=== PATIENT | male | born 1940 | race Caucasian/White ===

== ENCOUNTER 2016-05-11 08:30 | Emergency (ER) | payer BC ==
[~2016-05-11] VITALS: Ht 182.9 cm; Wt 95.7 kg
[~2016-05-11 08:30] MED LIST: ASPI-435 PO; CZR25 PO; DXY100 PO; FLUT0.0529 NAE; FURO-85 PO; INSDGI SC; IPRA1AER2 PO; LEVO1TAB33 PO; MOME200A PO; NTRGSL/4 UT; NVLGI SC; POTA8CAP6 PO; PRED10TA PO; SIMV20TA2 PO; SNG10 PO; TAMS0.4C38 PO; TRAM-10 PO; WARF-246 PO
[2016-05-11 08:37] VITALS: TEMP 36.8; Ht 182.9 cm; Wt 95.7 kg
[2016-05-11 08:45] VITALS: O2SAT 94
[2016-05-11 09:44] LABS: BASO % 0.9 %; BASO ABS # 0.05 K/uL (0-0.2); COMPLETE YES; EOS % 4.2 %; HEMATOCRIT 34.5 % (42-52); IG% 0.2 %; LYMPH % 21.8 %; LYMPH ABS # 1.19 K/uL (1.2-3.4); MEAN CORPUSCULAR HEMOGLOBIN 28.8 pg (25-34); MEAN CORPUSCULAR HGB CONC 32.8 g/dl (32-36); MEAN PLATELET VOLUME 10.2 fL (7.4-10.4); MONO % 7.7 %; NEUT % 65.2 %; PLATELET COUNT 181 K/uL (130-400); RED BLOOD COUNT 3.92 M/uL (4.7-6.1); WHITE BLOOD COUNT 5.46 K/uL (4.8-10.8)
[2016-05-11] MEDS ORDERED: ALBUTEROL HFA 8 GM INHALER INH STA (09:47)
--- NOTE | 2016-05-11 09:52 | EMERGENCY ROOM VISIT NOTE ---
History Report prepared by Tamiko: Stanton Guy Under the Supervision of: Dr. Yared Conte M.D. First contact with patient: 08:44 Chief Complaint: CONGESTION Stated Complaint: CHEST CONGESTION, MUCUS, COUGH History of Present Illness The patient is a 76 year old male who presents to the Emergency Room with complaints of intermittent shortness of breath, especially with exertion, for the past two months. The patient is also not able to lay flat and needs to sit up to sleep. The patient has a rescue kit containing Levaquin and Prednisone, which has not helped. He last used a rescue kit one month ago. The patient no longer uses his nebulizer because it is no longer effective to him. He uses ProAir BID and Combivent. The patient also complains of mucous-producing cough and chest congestion. His lower extremities are more swollen than baseline. He denies any chest pain, fevers, or chills. The patient has a history of COPD and CHF. The patient follows up with Dr. Graves, Sodium Chlor[facility] Operator. He has not seen him in four months but is scheduled to see him next month. The patient has had numerous bronchoscopies. The patient quit smoking 15-20 years ago, but he smoked heavily when he was young. The patient also has a history of diabetes and atrial fibrillation. Source of History: patient Onset: two months Position: other (respiratory) Quality: other (short of breath) Timing: intermittent Modifying Factors (Worsening): exertion Associated Symptoms: + cough, No chest pain, No chills, No fevers Review of Systems All systems have been listed, reviewed, and are negative other than those previously mentioned. Please see Additional Medical History Sheet. Past Medical & Surgical Medical Problems: (1) Asbestos exposure (2) BPH (benign prostatic hypertrophy) (3) CKD (chronic kidney disease) stage 3, GFR 30-59 ml/min (4) COPD (chronic obstructive pulmonary disease) (5) Diabetes type I (6) Dyslipidemia (7) History of basal cell carcinoma (8) Hypertension (9) Paroxysmal atrial fibrillation Surgical Problems: (1) H/O nasal polypectomy (2) History of inguinal hernia repair (3) History of surgery of head Family History Cancer MOTHER Diabetes mellitus BROTHER Gallbladder disease Heart disease Hypertension Kidney disease Kidney stones Social History Smoking Status: Former Smoker Alcohol Use: none Marital Status: Housing Status: lives with significant other Occupation Status: retired Current/Historical Medications Scheduled Aspirin (Aspirin 81), 81 MG PO DAILY Doxycycline Hyclate (Doxycycline Hyclate), 100 MG PO BID Fluticasone Propionate (Nasal) (Flonase), 2 SPRY ALDEN DAILY Furosemide (Lasix), 20 MG PO Q2D Insulin Aspart (Novolog), 0 SC AMHS Insulin Glargine (Lantus), 15 UNITS SC AMPM Losartan Potassium (Losartan Potassium), 25 MG PO DAILY Mometasone Furoate-Formoterol (Dulera 200/5 Mcg), 2 PUFFS PO BID Montelukast Sod (Montelukast Sodium), 10 MG PO DAILY Potassium Chloride (Klor-Con Ext Rel), 8 MEQ PO DAILY Simvastatin (Zocor), 20 MG PO QPM Tamsulosin Hcl (Flomax), 0.4 MG PO DAILY Scheduled PRN Ipratropium-Albuterol (Combivent Respimat), 1 PUFF PO QID PRN for Wheezing Nitroglycerin (Nitrostat), 0.4 MG UT UD PRN for Chest Pain Tramadol (Ultram), 50 MG PO Q8H PRN for Pain Allergies Coded Allergies: Aspirin (Verified Allergy, Unknown, GI SYMPTOMS, 10/16/15) Diltiazem (Verified Allergy, Unknown, RASH, 10/16/15) Lisinopril (Verified Allergy, Unknown, cough, 10/16/15) Propoxyphene (Verified Allergy, Unknown, _, 10/16/15) Physical Exam Vital Signs Date Time Temp Pulse Resp B/P Pulse Ox O2 Delivery O2 Flow Rate FiO2 05/11/16 11:43 61 12 185/90 93 05/11/16 10:58 62 27 189/99 97 Room Air 05/11/16 10:17 54 17 179/98 95 Room Air 05/11/16 09:25 60 05/11/16 08:45 94 Room Air 05/11/16 08:37 36.8 67 18 184/73 96 Room Air Physical Exam GENERAL: Patient awake, alert, oriented x 3. Patient follows commands. Patient does not appear toxic. Patient is adequately hydrated and well- nourished. SKIN: No erythema, pallor, cyanosis or rash HEENT: Normal head, pupils equal, reactive to light and accommodation. Ears normal. Oral cavity and posterior pharynx appear normal. Neck: Without adenopathy, no neck vein distention. LUNGS: Loud expiratory wheezes throughout both lungs as well as rhonchi. HEART: No murmurs. No gallops. No rubs ABDOMEN: Soft, nontender. EXTREMITIES: No signs of trauma or infection. NEUROLOGIC: Cranial nerves II-XII within normal limits. No gross motor sensory function deficits. Medical Decision & Procedures ER Provider Diagnostic Interpretation: X ray results are stated below per my interpretation and the radiologist's interpretation. TWO VIEW CHEST CLINICAL HISTORY: Chest congestion. FINDINGS: PA and lateral chest radiographs are compared to study dated 10/18/2015 and correlated with chest CT dated 12/03/2015. The heart is enlarged and there is atherosclerotic calcification of the thoracic aorta. The pulmonary vasculature is noncongested. Emphysema and chronic interstitial thickening is unchanged. There are bibasilar airspace opacities, not significantly changed from the 10/18/2015 examination. The upper lobes appear clear. No pleural effusion is identified. Calcified pleural plaques are similar to previous. Apical scarring is observed. There is no pneumothorax. The skeletal structures are osteopenic. The bony thorax appears intact. IMPRESSION: 1. There are bibasilar airspace opacities, similar in appearance to the 10/18/2015 examination. This could represent chronic scarring/atelectasis. Correlate clinically for evidence of a superimposed infectious or inflammatory pneumonitis. 2. Cardiomegaly, emphysema, and additional chronic changes as above. Electronically signed by: Arturo Charles M.D. 05/11/2016 10:10 AM Dictated Date/Time: 05/11/2016 10:05 AM Laboratory Results 05/11/16 09:28 Red Blood Count 3.92, Mean Corpuscular Volume 88.0, Mean Corpuscular Hemoglobin 28.8, Mean Corpuscular Hemoglobin Concent 32.8, Mean Platelet Volume 10.2, Neutrophils (%) (Auto) 65.2, Lymphocytes (%) (Auto) 21.8, Monocytes (%) (Auto) 7.7, Eosinophils (%) (Auto) 4.2, Basophils (%) (Auto) 0.9, Neutrophils # (Auto) 3.56, Lymphocytes # (Auto) 1.19, Monocytes # (Auto) 0.42, Eosinophils # (Auto) 0.23, Basophils # (Auto) 0.05 05/11/16 09:28 Test 05/11/16 09:00 05/11/16 09:28 Influenza Type A Antigen Neg for Influ A (NEG) Influenza Type B Antigen Neg for Influ B (NEG) White Blood Count 5.46 K/uL (4.8-10.8) Red Blood Count 3.92 M/uL (4.7-6.1) Hemoglobin 11.3 g/dL (14.0-18.0) Hematocrit 34.5 % (42-52) Mean Corpuscular Volume 88.0 fL (80-100) Mean Corpuscular Hemoglobin 28.8 pg (25-34) Mean Corpuscular Hemoglobin Concent 32.8 g/dl (32-36) Platelet Count 181 K/uL (130-400) Mean Platelet Volume 10.2 fL (7.4-10.4) Neutrophils (%) (Auto) 65.2 % Lymphocytes (%) (Auto) 21.8 % Monocytes (%) (Auto) 7.7 % Eosinophils (%) (Auto) 4.2 % Basophils (%) (Auto) 0.9 % Neutrophils # (Auto) 3.56 K/uL (1.4-6.5) Lymphocytes # (Auto) 1.19 K/uL (1.2-3.4) Monocytes # (Auto) 0.42 K/uL (0.11-0.59) Eosinophils # (Auto) 0.23 K/uL (0-0.5) Basophils # (Auto) 0.05 K/uL (0-0.2) RDW Standard Deviation 45.1 fL (36.4-46.3) RDW Coefficient of Variation 13.9 % (11.5-14.5) Immature Granulocyte % (Auto) 0.2 % Immature Granulocyte # (Auto) 0.01 K/uL (0.00-0.02) Anion Gap 6.0 mmol/L (3-11) Est Creatinine Clear Calc Drug Dose 48.7 ml/min Estimated GFR () 51.0 Estimated GFR (Non- 44.0 BUN/Creatinine Ratio 17.1 (10-20) Calcium Level 9.1 mg/dl (8.5-10.1) Troponin I < 0.015 ng/ml (0-0.045) Laboratory results as stated above per my review. Medications Administered Medications (Trade) Dose Ordered Sig/Bertha Route Start Time Stop Time Status Last Admin Dose Admin Albuterol (Ventolin Hfa Inhaler) 2 puffs NOW STAT INH 05/11/16 09:47 05/11/16 09:48 DC 05/11/16 10:17 2 PUFFS ECG Indication: SOB/dyspnea Rate (beats per minute): 54 Rhythm: sinus bradycardia Findings: LAFB, no acute ischemic change, no ectopy Comparison ECG Date: September 2015 Change: Atrial fibrillation is resolved when compared to EKG from September 2015. ED Course 0844: The patient was evaluated by the [facility]. 0938: Past medical records reviewed. The patient was evaluated in room A11b. A complete history and physical examination was performed. 0947: Albuterol 2 puffs INH. 1051: Checked on the patient. He was dong well. 1108: Discussed the case with Dr. Graves, Sodium Chlorite Operator. He will follow up with the patient. 1125: Updated the patient. He will be discharged, and will follow up with Pulmonology. 1133: Upon reevaluation, the patient appeared to have improvement of his symptoms. I discussed today's findings with him. He verbalized agreement of the treatment plan. He was discharged home. Medical Decision I considered multiple diagnoses including pneumonia, bronchitis, COPD exacerbation, pulmonary edema, PE. Labs, EKG and imaging were obtained. The patient's chest x-ray is similar to what he had the past. He did improve with Ventolin. I discussed care with Dr. Graves the phone. I believe the patient has some underlying bronchiectasis and would benefit from a bronchoscopy in the near future. Dr. Graves's office will call him to arrange a bronchoscopy with him or with Dr. Patrick Consults Time Called: 1100 Consulting Physician: Dr. Graves, Sodium Chlorite Operator. Returned Call: [phone]: Discussed the case with Dr. Graves, Sodium Chlorite Operator. He will follow up with the patient. Impression Primary Impression: COPD (chronic obstructive pulmonary disease) Scribe Attestation The scribe's documentation has been prepared under my direction and personally reviewed by me in its entirety. I confirm that the note above accurately reflects all work, treatment, procedures, and medical decision making performed by me. Departure Information Dispostion Home / Self-Care Referrals Kg Monte M.D. (PCP) Forms HOME CARE DOCUMENTATION FORM, IMPORTANT VISIT INFORMATION Patient Instructions A Signature Page, My [employer] Additional Instructions Continue all of your current medications as prescribed. Use the chamber with Pro-air or Ventolin. Follow-up with Dr. Graves or Dr. Patrick. They will call you today. Problem Qualifiers Primary Impression: COPD (chronic obstructive pulmonary disease) COPD type: COPD with acute exacerbation Qualified Codes: J44.1 - Chronic obstructive pulmonary disease with (acute) exacerbation
[2016-05-11 10:02] LABS: BLOOD UREA NITROGEN 26 mg/dl (7-18); BUN/CREATININE RATIO 17.1 (10-20); CALCIUM 9.1 mg/dl (8.5-10.1); CARBON DIOXIDE 29 mmol/L (21-32); CHLORIDE 109 mmol/L (98-107); GLUCOSE 146 mg/dl (70-99); POTASSIUM 4.8 mmol/L (3.5-5.1); SODIUM 144 mmol/L (136-145)
--- NOTE | 2016-05-11 10:13 | DIAGNOSTIC IMAGING REPORT ---
TWO VIEW CHEST CLINICAL HISTORY: Chest congestion. FINDINGS: PA and lateral chest radiographs are compared to study dated 10/18/2015 and correlated with chest CT dated 12/03/2015. The heart is enlarged and there is atherosclerotic calcification of the thoracic aorta. The pulmonary vasculature is noncongested. Emphysema and chronic interstitial thickening is unchanged. There are bibasilar airspace opacities, not significantly changed from the 10/18/2015 examination. The upper lobes appear clear. No pleural effusion is identified. Calcified pleural plaques are similar to previous. Apical scarring is observed. There is no pneumothorax. The skeletal structures are osteopenic. The bony thorax appears intact. IMPRESSION: 1. There are bibasilar airspace opacities, similar in appearance to the 10/18/2015 examination. This could represent chronic scarring/atelectasis. Correlate clinically for evidence of a superimposed infectious or inflammatory pneumonitis. 2. Cardiomegaly, emphysema, and additional chronic changes as above. Electronically signed by: Arturo Charles M.D. 05/11/2016 10:10 AM Dictated Date/Time: 05/11/2016 10:05 AM
[2016-05-11 11:43] VITALS: BP 185/90; PULSE 61; O2SAT 93
[2016-07-24] MEDS ORDERED: MOME200A INH (15:07)
[2016-07-24] MEDS ORDERED: IPRASOL4 INH (15:11)
[2016-07-24] MEDS ORDERED: LOSA1TAB38 PO (15:11)
[2016-07-24] MEDS ORDERED: GLUCTAB7 PO (15:13)
[2016-07-24] MEDS ORDERED: VITAMIN D PO (15:13)
[2016-10-17] MEDS ORDERED: CEFD300C3 PO (16:31)
[2016-10-17] MEDS ORDERED: XPNINS1255 INH (16:31)
[2016-10-17] MEDS ORDERED: LPR25 PO (16:31)
[2016-10-17] MEDS ORDERED: PRED10TA PO (16:31)
[2016-10-17] MEDS ORDERED: ACET-1256 PO (16:31)
[2016-10-17] MEDS ORDERED: GFNSR600 PO (16:31)
[2016-11-13] MEDS ORDERED: PRT/20 PO (10:35)
[2016-11-16] MEDS ORDERED: LEVO1TAB35 PO (09:19)
[2016-11-16] MEDS ORDERED: LNX125 PO (09:19)
[2016-11-16] MEDS ORDERED: BENZ100C7 PO (09:19)
[2016-11-16] MEDS ORDERED: ASPEC81 PO (09:19)
[2016-11-16] MEDS ORDERED: LPR25 PO (09:19)
[2016-12-13] MEDS ORDERED: METO50TA16 PO (13:04)
== END 2016-05-11 11:48 | disposition home or self-care (01) ==
LOC: C.EDB 08:32 → C.EDA 11:48
DX: J44.9 Chronic obstructive pulmonary disease, unspecified (principal); N18.3 Chronic kidney disease, stage 3 (moderate); E11.22 Type 2 diabetes mellitus with diabetic chronic kidney disease; I12.9 Hypertensive chronic kidney disease with stage 1 through stage 4 chronic kidney disease, or unspecified chronic kidney disease; I50.9 Heart failure, unspecified; N40.0 Benign prostatic hyperplasia without lower urinary tract symptoms; I48.0 Paroxysmal atrial fibrillation; Z87.891 Personal history of nicotine dependence; Z79.82 Long term (current) use of aspirin; Z79.4 Long term (current) use of insulin; Z80.9 Family history of malignant neoplasm, unspecified; Z83.3 Family history of diabetes mellitus; Z82.49 Family history of ischemic heart disease and other diseases of the circulatory system

== ENCOUNTER 2016-05-14 02:48 | Inpatient (IN) | payer BC, OTHER ==
[2016-05-14] VITALS (8 sets, daily range): BP systolic 148–196; BP diastolic 75–91; PULSE 81–99; TEMP 36.6–37.2; O2SAT 95–98; BMI 28.3
[~2016-05-14] VITALS: Ht 182.9 cm; Wt 91.4 kg
[~2016-05-14 02:48] MED LIST changes: -LEVO1TAB33 PO; -PRED10TA PO; -WARF-246 PO
[2016-05-14] MEDS ORDERED: ALBUT/IPRATROP 3MG/0.5MG NEB 3 ML VIAL INH STA (03:21)
[2016-05-14] MEDS ORDERED: LEVAQUIN 750MG / 150ML D5W IV STA (03:36)
[2016-05-14 03:37] LABS: BASO ABS # 0.05 K/uL (0-0.2); COMPLETE YES; EOS % 4.7 %; HEMATOCRIT 34.6 % (42-52); LYMPH % 25.4 %; LYMPH ABS # 1.29 K/uL (1.2-3.4); MEAN CELL VOLUME 87.2 fL (80-100); MEAN CORPUSCULAR HEMOGLOBIN 28.7 pg (25-34); MEAN CORPUSCULAR HGB CONC 32.9 g/dl (32-36); MEAN PLATELET VOLUME 10.1 fL (7.4-10.4); MONO % 8.1 %; NEUT % 60.8 %; PLATELET COUNT 207 K/uL (130-400); RED BLOOD COUNT 3.97 M/uL (4.7-6.1); WHITE BLOOD COUNT 5.08 K/uL (4.8-10.8)
[2016-05-14 03:53] LABS: PROTHROMBIN TIME (PATIENT) 10.4 SECONDS (9.0-12.0)
[2016-05-14 04:03] LABS: BUN/CREATININE RATIO 20.4 (10-20); CALCIUM 8.8 mg/dl (8.5-10.1); CKMB/CK RATIO 3.7 (0-3.0); CREATININE 1.7 mg/dl (0.60-1.40); POTASSIUM 4.8 mmol/L (3.5-5.1)
[2016-05-14 04:18] LABS: BETA-HYDROXYBUTYRATE 3.66 mg/dL (0.2-2.81)
[2016-05-14] MEDS ORDERED: ALBUT/IPRATROP 3MG/0.5MG NEB 3 ML VIAL INH ONE (04:45)
--- NOTE | 2016-05-14 04:49 | EMERGENCY ROOM VISIT NOTE ---
ED Visit Note First contact with patient: 03:27 I saw this patient in conjunction with Ashok Elam PA-C. I agree with his decision making and treatment plan.
--- NOTE | 2016-05-14 04:53 | EMERGENCY ROOM VISIT NOTE ---
History First contact with patient: 03:27 Chief Complaint: RESPIRATORY PROBLEMS Stated Complaint: RESPIRATORY PROBLEMS Nursing Triage Summary: pt c/o cough and respiratory problems, having hard time sleeping, taking mucinex. been here History of Present Illness The patient is a 76 year old male who presents to the Emergency Department by private vehicle for evaluation of his worsening cough and shortness of breath. The patient reports a long-standing history of COPD. He was seen here on for similar symptoms. He was provided an inhaler to be used for breakthrough symptoms. He reports that he seems to do well when he is outside, but when he is inside he has had worsening symptoms. He reports no pain in his chest this point. He has had a mildly productive cough. He is scheduled for a bronchoscopy this week, but did not feel as though he could make his appointment secondary to his worsening shortness of breath and cough. He rates his current discomfort as a 0/10. He denies any headaches, dizziness, chest pain, palpitations, hemoptysis, nausea, vomiting, or abdominal pain. Review of Systems A complete 10-point Review of Systems was discussed with the patient, with pertinent positives and negatives listed in the History of Present Illness. All remaining Review of Systems questions can be considered negative unless otherwise specified. Past Medical/Surgical History Medical Problems: (1) Asbestos exposure (2) BPH (benign prostatic hypertrophy) (3) CKD (chronic kidney disease) stage 3, GFR 30-59 ml/min (4) COPD (chronic obstructive pulmonary disease) (5) COPD exacerbation (6) Diabetes 1.5, managed as type 2 (7) Diabetes type I (8) Dyslipidemia (9) History of basal cell carcinoma (10) Hypertension (11) Paroxysmal atrial fibrillation (12) Pneumonia Surgical Problems: (1) H/O nasal polypectomy (2) History of inguinal hernia repair (3) History of surgery of head Family History Cancer MOTHER Diabetes mellitus BROTHER Gallbladder disease Heart disease Hypertension Kidney disease Kidney stones Social History Smoking Status: Never Smoker Smokeless Tobacco Use: No Alcohol Use: none Marital Status: Housing Status: lives with significant other Occupation Status: retired Current/Historical Medications Scheduled Aspirin (Aspirin 81), 81 MG PO DAILY Fluticasone Propionate (Nasal) (Flonase), 2 SPRY ALDEN DAILY Furosemide (Lasix), 20 MG PO Q2D Insulin Aspart (Novolog), 0 SC AMHS Insulin Detemir (Levemir), SQ UD Losartan Potassium (Cozaar), 50 MG PO DAILY Mometasone Furoate-Formoterol (Dulera 200/5 Mcg), 2 PUFFS PO BID Montelukast Sod (Montelukast Sodium), 10 MG PO DAILY Simvastatin (Zocor), 20 MG PO QPM Tamsulosin Hcl (Flomax), 0.4 MG PO DAILY Scheduled PRN Ipratropium-Albuterol (Combivent Respimat), 1 PUFF PO QID PRN for Wheezing Levofloxacin (Levaquin), 500 MG PO DAILY PRN for copd rescue Nitroglycerin (Nitrostat), 0.4 MG UT UD PRN for Chest Pain Prednisone Tab (Prednisone), MG PO UD PRN for copd rescue Tramadol (Ultram), 50 MG PO Q8H PRN for Pain Zolpidem Tartrate (Ambien), 5-10 MG PO HS PRN for while on prednisone Allergies Coded Allergies: Diltiazem (Verified Allergy, Unknown, RASH, 05/14/16) Propoxyphene (Verified Allergy, Unknown, _, 05/14/16) Aspirin (Verified Adverse Reaction, Unknown, GI SYMPTOMS, 05/14/16) Lisinopril (Verified Adverse Reaction, Unknown, cough, 05/14/16) Physical Exam Vital Signs Date Time Temp Pulse Resp B/P Pulse Ox O2 Delivery O2 Flow Rate FiO2 05/14/16 04:40 67 22 195/89 99 Nasal Cannula 2.0 05/14/16 03:33 89 Room Air 05/14/16 03:24 74 05/14/16 03:23 94 Nasal Cannula 2.0 05/14/16 03:23 94 Nasal Cannula 2.0 05/14/16 02:56 36.8 83 26 181/84 90 Room Air Pain Rating (0-10): 0 Physical Exam VITAL SIGNS - Vital signs and nursing notes were reviewed. GENERAL - 76-year-old male appearing his stated age who is in mild distress. Communicates well with provider and answers questions appropriately although unable to complete full sentences secondary to shortness of breath. HEAD - NC/AT. EYES - PERRL with EOMI bilaterally. Sclera anicteric. Palpebral conjunctiva pink and moist with no injection noted. EARS - No deformities of external structures noted on gross examination bilaterally. No pain elicited with palpation of the tragus bilaterally. External auditory canals without discharge or otorrhea. Tympanic membranes pearly buck without retraction or bulging. NOSE - Midline and without cyanosis. No epistaxis or purulent drainage noted. Septum midline without deviation or septal hematoma noted. MOUTH/OROPHARYNX - Without perioral cyanosis. Buccal mucosa pink and moist and without leukoplakia. Tongue midline with equal elevation of palate bilaterally. No tonsillar hypertrophy, erythema, or exudates noted. NECK - Neck with FROM. Supple to palpation. LUNGS - Chest wall symmetric with mild accessory muscle use. Diffuse inspiratory and expiratory wheezes appreciated throughout all lung raymond. No rales noted. CARDIAC - RRR with S1/S2. No murmur, rubs, or gallops appreciated. No reproducible tenderness to palpation appreciated over the anterior chest wall. ABDOMEN - Abdominal contour flat and without pulsations or visible masses. BS normoactive all four quadrants. No tenderness, palpable masses, hepatosplenomegaly, or ascites noted. EXTREMITIES - No clubbing or peripheral cyanosis. Mild pretibial edema present. NEUROLOGIC - Cranial nerves II through XII grossly intact. Sensory intact to light touch throughout. PSYCH - A&Ox3 and cooperates fully with examiner. Pt is very pleasant and interacts well with examiner. Medical Decision & Procedures ER Provider Diagnostic Interpretation: Chest x-ray was obtained and reviewed by myself. Possible RIGHT lower lobe infiltrate. Radiologist's impression unavailable at the time of dictation. Laboratory Results 05/14/16 03:25 Red Blood Count 3.97, Mean Corpuscular Volume 87.2, Mean Corpuscular Hemoglobin 28.7, Mean Corpuscular Hemoglobin Concent 32.9, Mean Platelet Volume 10.1, Neutrophils (%) (Auto) 60.8, Lymphocytes (%) (Auto) 25.4, Monocytes (%) (Auto) 8.1, Eosinophils (%) (Auto) 4.7, Basophils (%) (Auto) 1.0, Neutrophils # (Auto) 3.09, Lymphocytes # (Auto) 1.29, Monocytes # (Auto) 0.41, Eosinophils # (Auto) 0.24, Basophils # (Auto) 0.05 05/14/16 03:25 Test 05/14/16 03:25 05/14/16 03:27 White Blood Count 5.08 K/uL (4.8-10.8) Red Blood Count 3.97 M/uL (4.7-6.1) Hemoglobin 11.4 g/dL (14.0-18.0) Hematocrit 34.6 % (42-52) Mean Corpuscular Volume 87.2 fL (80-100) Mean Corpuscular Hemoglobin 28.7 pg (25-34) Mean Corpuscular Hemoglobin Concent 32.9 g/dl (32-36) Platelet Count 207 K/uL (130-400) Mean Platelet Volume 10.1 fL (7.4-10.4) Neutrophils (%) (Auto) 60.8 % Lymphocytes (%) (Auto) 25.4 % Monocytes (%) (Auto) 8.1 % Eosinophils (%) (Auto) 4.7 % Basophils (%) (Auto) 1.0 % Neutrophils # (Auto) 3.09 K/uL (1.4-6.5) Lymphocytes # (Auto) 1.29 K/uL (1.2-3.4) Monocytes # (Auto) 0.41 K/uL (0.11-0.59) Eosinophils # (Auto) 0.24 K/uL (0-0.5) Basophils # (Auto) 0.05 K/uL (0-0.2) RDW Standard Deviation 43.9 fL (36.4-46.3) RDW Coefficient of Variation 13.6 % (11.5-14.5) Immature Granulocyte % (Auto) 0.0 % Immature Granulocyte # (Auto) 0.00 K/uL (0.00-0.02) Prothrombin Time 10.4 SECONDS (9.0-12.0) Prothromb Time International Ratio 1.0 (0.9-1.1) Activated Partial Thromboplast Time 27.2 SECONDS (21.0-31.0) Partial Thromboplastin Ratio 1.0 Anion Gap 10.0 mmol/L (3-11) Est Creatinine Clear Calc Drug Dose 42.8 ml/min Estimated GFR () 43.8 Estimated GFR (Non- 37.8 BUN/Creatinine Ratio 20.4 (10-20) Calcium Level 8.8 mg/dl (8.5-10.1) Total Bilirubin 0.4 mg/dl (0.2-1) Aspartate Amino Transf (AST/SGOT) 19 U/L (15-37) Alanine Aminotransferase (ALT/SGPT) 22 U/L (12-78) Alkaline Phosphatase 119 U/L (45-117) Total Creatine Kinase 218 U/L (39-308) Creatine Kinase MB 8.1 ng/ml (0.5-3.6) Creatine Kinase MB Ratio 3.7 (0-3.0) Total Protein 6.7 gm/dl (6.4-8.2) Albumin 3.3 gm/dl (3.4-5.0) Globulin 3.4 gm/dl (2.5-4.0) Albumin/Globulin Ratio 1.0 (0.9-2) Beta-Hydroxybutyric Acid 3.66 mg/dL (0.2-2.81) Bedside Troponin I 0.000 ng/ml (0-0.045) Medications Administered Medications (Trade) Dose Ordered Sig/Bertha Route Start Time Stop Time Status Last Admin Dose Admin Albuterol/ Ipratropium (Duoneb) 3 ml NOW STAT INH 05/14/16 03:21 05/14/16 03:24 DC 05/14/16 03:27 3 ML Methylprednisolone Sodium Succinate (Solu-Medrol IV) 80 mg NOW STAT IV 05/14/16 03:36 05/14/16 03:39 DC 05/14/16 03:50 80 MG Levofloxacin (Levaquin / D5W) 750 mg NOW STAT IV 05/14/16 03:36 05/14/16 03:39 DC 05/14/16 03:50 750 MG Albuterol/ Ipratropium (Duoneb) 12 ml ONE ONCE INH 05/14/16 04:45 05/14/16 04:46 DC 05/14/16 04:45 12 ML Procedure Patient was placed on the threat monitoring analyst and monitored throughout the entire extent of their stay. In addition, the patient's pulse oximetry was monitored throughout the entire stay. Any abnormalities or aberrancies were addressed appropriately. ECG Indication: SOB/dyspnea Rate (beats per minute): 72 Rhythm: normal sinus Findings: LAFB, nonspecific-ST abn, no acute ischemic change, no ectopy Change: no significant change (from 05/11/2016.) ED Course Patient was seen and evaluated by myself. On initial assessment, the patient has moderate inspiratory and expiratory wheezing. He is hypoxic at 89%. He was treated with 1 DuoNeb. He was treated with 80 mg Solu-Medrol intravenously as well as 750 mg Levaquin intravenously. Laboratory results demonstrate no acute leukocytosis, worrisome anemia, or bandemia. The patient's creatinine is elevated at 1.7. Cardiac enzymes and troponin are negative. Patient was reevaluated and has persistent wheezing. He was treated with 1 hour-long DuoNeb. Patient was discussed with the [facility] who agrees to admit the patient for further evaluation and management. Patient admitted in stable condition. Medical Decision Given the patient's presentation and exam findings, I did elect to perform the above-mentioned workup. The patient presents today with worsening shortness of breath and respiratory distress. He is afebrile. He has no acute leukocytosis. He does have a long-standing history of COPD. He was found to have a RIGHT lower lobe infiltrate. He was treated aggressively with IV steroids and antibiotics. He required hour-long DuoNeb treatment for mild result of symptoms. At this point, the patient will require inpatient management for IV antibiotics as well as IV steroids and close glycemic management in addition to respiratory treatments. The patient was admitted to the [facility] service in stable condition. In the evaluation and treatment of this patient, the following differential diagnoses were considered: [place], ASC, Dysrhythmia, Angina, Mediastinitis, GERD, Esophagitis, PE, Pneumonia, Bronchitis, Costochondritis, Rib Fracture, Zoster. Impression Primary Impression: COPD with exacerbation Additional Impressions: Hypoxia Right lower lobe pneumonia Departure Information Dispostion Admitted as an inpatient Condition FAIR Referrals Kg Monte M.D. (PCP) Patient Instructions My [facility] Problem Qualifiers Additional Impressions: Right lower lobe pneumonia Pneumonia type: due to unspecified organism Qualified Codes: J18.9 - Pneumonia, unspecified organism
[2016-05-14] MEDS ORDERED: LVMI SQ (05:38)
[2016-05-14] MEDS ORDERED: LOSA50TA6 PO (05:39)
[2016-05-14] MEDS ORDERED: ZOLP5TAB6 PO (05:40)
[2016-05-14] MEDS ORDERED: NITROGLYCERIN 0.4 MG SL PER TAB CHARGE UT PRN (05:45)
[2016-05-14] MEDS ORDERED: ACETAMINOPHEN 325 MG TAB PO PRN (05:45)
[2016-05-14] MEDS ORDERED: LEVOFLOXACIN / D5W 500 MG in PREMIXED IN D5W 100 ML IV SCH (05:45)
[2016-05-14] MEDS ORDERED: TRAMADOL HCL 50 MG TAB PO PRN (05:45)
[2016-05-14] MEDS ORDERED: ONDANSETRON INJ 2 MG/ML 2 ML VIAL IV PRN (05:45)
[2016-05-14] MEDS ORDERED: IPRATROPIUM BROMIDE/ALBUTEROL respimat INH INH PRN (05:45)
[2016-05-14] MEDS ORDERED: ZOLPIDEM TARTRATE 5 MG TAB PO PRN (05:45)
[2016-05-14] MEDS ORDERED: PRED10TA PO (05:48)
[2016-05-14] MEDS ORDERED: LEVO1TAB33 PO (05:48)
[2016-05-14] MEDS ORDERED: ZOLP5TAB PO (05:49)
[2016-05-14] MEDS ORDERED: LEVOFLOXACIN CONSULT ACTIVE PRN (06:00)
--- NOTE | 2016-05-14 06:52 | HISTORY & PHYSICAL EXAMINATION ---
DATE OF ADMISSION: 05/14/2016 CHIEF COMPLAINT: Increasing shortness of breath. 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 The condition has been getting worse for the last 1 month and he was seen in the ER on May 11 with increasing shortness of breath and he was given nebulized bronchodilator and he was sent home with a possible bronchoscopy that will be done on this Sunday by Dr. Antunez. The condition got worse today and he is back. He does not have any fever or chills. He has cough productive of whitish phlegm. He does have increasing shortness of breath with chest tightness, no chest pain, no nausea, vomiting. No numbness or tingling in the extremities. He also complained to have increasing swelling of both the legs.ECHO in 12/13: EF 60%,small Pericardial effusion,Mild Pulmonary HTN and grade 1 Diastolic dysfunction. PAST MEDICAL HISTORY: Significant for COPD moderate in nature on home oxygen, diabetes on insulin, chronic kidney disease, atrial fibrillation, nasal poly, hypertension, hyperlipidemia, benign prostatic hypertrophy and history of bronchiectasis. PAST SURGICAL HISTORY: Left temporoparietal correction in 1992, prostate biopsy in 1997, nasal polyp removal in 1993, inguinal hernia repair as a child. FAMILY HISTORY: Brother has asthma. Mother had unknown cancer and brother has diabetes and father had gastrointestinal disorder, uncle had stroke. SOCIAL HISTORY: He is , has 4 children. Quit smoking in 1995 with a [id number] history of smoking. He drinks alcohol occasionally. He lives with his and he is reasonably mobile. ALLERGIES: ASPIRIN, DILTIAZEM, LISINOPRIL, AND PROPOXYPHENE. MEDICATIONS: He has been on aspirin 81 mg daily, Flonase 2 sprays each nostril daily, furosemide 20 mg every other day, NovoLog as directed, Lantus 15 units twice daily, Combivent 1 puff q.i.d. as needed, losartan 25 mg daily, Singulair 10 mg daily, nitroglycerin as directed, simvastatin 20 mg daily, Flomax 0.4 mg daily, Ultram 50 mg q. 8 hourly p.r.n., Klor-Con 8 mEq daily. He used to take Durela but not been taking it. REVIEW OF SYSTEMS: All other system review negative besides those mentioned in history of present illness. PHYSICAL EXAMINATION: GENERAL: On examination in the Emergency Room, still having moderate shortness of breath at rest. VITAL SIGNS: Temperature 36.8, pulse of 67, blood pressure 195/89, saturation 99% on 2 liters nasal cannula. HEENT: Unremarkable. NECK: Supple. No JVD, no bruit. CHEST: Has increased anteroposterior diameter, decreased breath sounds with wheezing, bibasilar crackles more on the right than on the left. HEART: S1, S2 regular. ABDOMEN: Soft, benign, nontender, no organomegaly. Bowel sounds present. EXTREMITIES: 1-2+ edema bilaterally. MUSCULOSKELETAL SYSTEM: No acute arthritis. CENTRAL NERVOUS SYSTEM: Alert, awake, oriented x3. Generally weak, but no focal neuro deficit. LABORATORY DATA: Noted today white count was 5.08, H\T\H 11.4/34.6, platelet was 207. Sodium 142, potassium 3.5 chloride 27, BUN 35, creatinine 1.70 that is his baseline. Random glucose 360. LFTs unremarkable except for alkaline phosphatase 119. CK, CK-MB, troponin negative. PT/INR unremarkable. Chest x-ray: Emphysema, chronic bibasilar changes, more on the right than the left. EKG was in sinus rhythm with sinus arrhythmias, rate of 72 per minute, left axis deviation and nonspecific ST-T-wave abnormality. IMPRESSION AND PLAN: 1. Exacerbation of chronic obstructive pulmonary disease/Bronchiectasis with possible pneumonia affecting right lower lobe admitted to medical floor. Blood culture has been taken and he has been started with intravenous Levaquin. He will be given nebulized bronchodilator and also intravenous Solu-Medrol. Pulmonary consultation for probable bronchoscopy down the line. 2. Diabetes, on insulin. Continue with Lantus and put him on sliding scale while in the hospital. Check hemoglobin A1c. 3. Hypertension. Blood pressure in the upper side of normal. Continue with current medications, may have to give added medicine if the blood pressure is not controlled. 4.CKD stage III-Creatinine 1.7 at baseline .Monitor PRP specially being on Lasix with increasing bilateral Leg Edema.May need to repeat ECHO. 5. Benign prostatic hypertrophy. No acute symptoms. Continue with current medication. 6. Gastrointestinal prophylaxis, Protonix. 7. Deep venous thrombosis prophylaxis with subcutaneous heparin. 8. Code status: He will be a full code. In my clinical judgment, the beneficiary meets criteria as per CMS for 2 midnight stay in the hospital. [email or web address]
[2016-05-14] MEDS: DULERA~ORDER AWAITING ACTION SCH ×2 (08:00→16:00)
[2016-05-14] MEDS ORDERED: FUROSEMIDE INJ 40 MG in SYRINGE 0 ML IV SCH (08:00)
[2016-05-14] MEDS ORDERED: LOSARTAN POTASSIUM 50 MG TAB PO SCH (08:00)
[2016-05-14] MEDS ORDERED: GLUCAGON FOR INJ 1 MG VIAL SQ PRN (08:15)
[2016-05-14] MEDS ORDERED: DEXTROSE 50% 50 ML SYR IV PRN (08:15)
[2016-05-14] MEDS ORDERED: GLUCOSE 10 TABS/TUBE PO PRN (08:15)
[2016-05-14] MEDS ORDERED: GLUCOSE 40% GEL 15 GM TUBE PO PRN (08:15)
[2016-05-14] MEDS ORDERED: PHARMACY GLYCEMIC MGMT CONSULT SCH (08:20)
[2016-05-14] MEDS: FLUTICASONE PROPIONATE NA SPR 16 GM BTL NAE SCH (08:40)
[2016-05-14] MEDS: ASPIRIN 81 MG ECTAB PO SCH (08:42)
[2016-05-14] MEDS: TAMSULOSIN HCL 0.4 MG CAP PO SCH (08:43)
[2016-05-14] MEDS: HEPARIN SOD 5000 UNIT/0.5 ML CARP SQ SCH ×3 (08:47→20:36)
--- NOTE | 2016-05-14 08:58 | Pharmacy Progress Note ---
Glycemic Control Intl Consult Date of Service May 14, 2016. Scope Glycemic Pharmacist consulted by Dr Hdez on 05/14/2016 for glycemic control and to write orders per [facility] inpatient glycemic control protocol Objective Weight (Kilograms): 94.800 Accuchecks BSG (last 24hrs): Test 05/14/16 03:25 05/14/16 07:55 Random Glucose 360 mg/dl (70-99) Bedside Glucose 386 mg/dl (70-99) Laboratory Data (last 24hrs) Test 05/14/16 03:25 Anion Gap 10.0 mmol/L BUN/Creatinine Ratio 20.4 Blood Urea Nitrogen 35 mg/dl Creatinine 1.70 mg/dl Potassium Level 4.8 mmol/L Sodium Level 142 mmol/L White Blood Count 5.08 K/uL Red Blood Count 3.97 M/uL Hemoglobin 11.4 g/dL Hematocrit 34.6 % Mean Corpuscular Volume 87.2 fL Mean Corpuscular Hemoglobin 28.7 pg Mean Corpuscular Hemoglobin Concent 32.9 g/dl Platelet Count 207 K/uL Mean Platelet Volume 10.1 fL Neutrophils (%) (Auto) 60.8 % Lymphocytes (%) (Auto) 25.4 % Monocytes (%) (Auto) 8.1 % Eosinophils (%) (Auto) 4.7 % Basophils (%) (Auto) 1.0 % Neutrophils # (Auto) 3.09 K/uL Lymphocytes # (Auto) 1.29 K/uL Monocytes # (Auto) 0.41 K/uL Eosinophils # (Auto) 0.24 K/uL Basophils # (Auto) 0.05 K/uL Recent Pertinent Medications Outpatient Anti-diabetic Regimen: * NovoLog sliding scale * ~10 units BID * Levemir (recently changed from Lantus) * 14 units in the AM * 8 units in the PM * Total daily insulin needs ~42 units/day * A1c = 8.8 % 09/2015 - out dated The patient is currently receiving: * Basal insulin: Lantus 10 units every 12 hours * Correctional Insulin: NovoLog Correction per scale AC+HS Goal Range: Low 120 mg/dL - High 180 mg/dL Correction Factor: 30 mg/dL/unit * Prandial insulin: Per carb ratio of 1 unit per 12 grams CHO consumed Risk Factors for Insulin Resistance: * Steroids: Solu-Medrol 80mg IV x1 dose in ED, then 40mg IV q8H * Infection: COPD exacerbation, r/o pneumonia - levofloxacin IV (day #1, mixed in dextrose) * Pressors: n/a * IVF: n/a, being diuresed * Recent Surgery: n/a * Diet: T2DM/low Na * Mechanical Ventilation: n/a Assessment & Plan ASSESSMENT: * ADA & AACE recommend a goal blood sugar range 140-180 mg/dl for the majority of critically ill & non-critically ill patients. However, more stringent targets may be selected in individual cases. 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 * As an outpatient, Mr Plata uses basal/bolus regimen to control diabetes - will require similar regimen upon admission * Currently having a COPD exacerbation and requiring around the clock steroids and IV antibiotics * predict insulin needs will increase precipitously secondary to this. * BSG on admission severely elevated * will initiate SQ insulin JUNIOR basing doses on both historical admissions as well as home needs * if BSG >300mg/dL with lunch, will augment with IV insulin and additional Accu -checks PLAN FOR INPATIENT GLYCEMIC CONTROL: * Increase Lantus to 15 units SQ BID * using Lantus at this time (in lieu of Levemir) as the patient has not transitioned over to Levemir yet * Continue NovoLog AC and HS * Likely will need additional Accu-check overnight (at 00:00 and 04:00) if hyperglycemia persists * Correction factor: tighten to 25mg/dL/unit * Carb ratio: tighten to 1 unit per 8g of CHO consumed * Goal range: 120-160mg/dL * A1c - outdated, on order with AM labs * add to discharge instructions * Please note that the plan above was derived based on current level of insulin resistance and hospital stress. These recommendations are appropriate for inpatient admission only. Plan of care upon discharge will need to be reassessed to avoid potential outpatient hypo/hyperglycemia. Thank you.
[2016-05-14] MEDS ORDERED: INSULIN GLARGINE SOLOSTAR 100 UNITS/ML 3 ML PEN SC SCH (09:00)
--- NOTE | 2016-05-14 09:35 | DIAGNOSTIC IMAGING REPORT ---
SINGLE VIEW CHEST CLINICAL HISTORY: Cough and dyspnea. FINDINGS: 2 AP, portable, upright chest radiographs are compared to study dated 05/11/2016 and correlated with chest CT dated 12/03/2015. The heart is enlarged and there is atherosclerotic calcification of the thoracic aorta. There is mild congestion of the central pulmonary vasculature. Emphysema and chronic interstitial thickening is unchanged. Bibasilar airspace opacities are similar to previous. The upper lobes appear clear. No pleural effusion is identified. Calcified pleural plaques are similar to previous. Apical scarring is observed. There is no pneumothorax. The skeletal structures are osteopenic. The bony thorax appears intact. IMPRESSION: 1. There are bibasilar airspace opacities, similar in appearance to prior studies. This could represent chronic scarring/atelectasis. Correlate clinically for evidence of a superimposed infectious or inflammatory pneumonitis. 2. Cardiomegaly. There is mild congestion of the central pulmonary vessels. Correlate clinically for evidence of mild congestive failure. 3. Emphysema and additional chronic parenchymal changes as above. Electronically signed by: Arturo Charles M.D. 05/14/2016 9:33 AM Dictated Date/Time: 05/14/2016 9:31 AM
[2016-05-14] MEDS: INSULIN GLARGINE SOLOSTAR 100 UNITS/ML 3 ML PEN SC SCH ×2 (09:57→20:35)
[2016-05-14] MEDS: INSULIN ASPART 100 UNITS/ML 3 ML PEN SC SCH ×4 (09:58→20:35)
[2016-05-14] MEDS ORDERED: METHYLPREDNISOLONE IV 40 MG in SYRINGE 0 ML IV SCH (12:00)
[2016-05-14] MEDS ORDERED: INSULIN REGULAR 10 UNITS in SYRINGE 9.9 ML IV SCH (12:30)
[2016-05-14] MEDS: METHYLPREDNISOLONE IV 20 MG in SYRINGE 0 ML IV SCH ×2 (13:04→20:30)
[2016-05-14] MEDS ORDERED: INSULIN ASPART 100 UNITS/ML 3 ML PEN SC SCH (14:00)
[2016-05-14] MEDS: ALBUT/IPRATROP 3MG/0.5MG NEB 3 ML VIAL INH SCH ×2 (14:19→20:38)
--- NOTE | 2016-05-14 14:27 | Progress Note ---
Medicine Progress Note Date & Time of Visit: May 14, 2016 at 14:25. Subjective Patient seen and examined. Feels that his breathing has improved today. Objective Last 8 Hrs Date Time Temp Pulse Resp B/P Pulse Ox O2 Delivery O2 Flow Rate FiO2 05/14/16 08:30 99 172/82 97 Nasal Cannula 2.0 05/14/16 07:45 97 Nasal Cannula 2.0 05/14/16 06:45 36.6 98 18 196/91 95 Nasal Cannula 2.0 Physical Exam: General-awake; alert; NAD Eyes-EOMI; no scleral icterus Neck-no stridor; trachea midline Lungs-scattered rubs; good air movement throughout Heart-RRR; no m/r/g Abdomen-soft; NTND; nBS Extremities-trace LE edema, r>l; no deformity Neuro-no gross focal deficits Laboratory Results: Last 24 Hours Test 05/14/16 03:25 05/14/16 03:27 05/14/16 07:55 White Blood Count 5.08 K/uL Red Blood Count 3.97 M/uL Hemoglobin 11.4 g/dL Hematocrit 34.6 % Mean Corpuscular Volume 87.2 fL Mean Corpuscular Hemoglobin 28.7 pg Mean Corpuscular Hemoglobin Concent 32.9 g/dl Platelet Count 207 K/uL Mean Platelet Volume 10.1 fL Neutrophils (%) (Auto) 60.8 % Lymphocytes (%) (Auto) 25.4 % Monocytes (%) (Auto) 8.1 % Eosinophils (%) (Auto) 4.7 % Basophils (%) (Auto) 1.0 % Neutrophils # (Auto) 3.09 K/uL Lymphocytes # (Auto) 1.29 K/uL Monocytes # (Auto) 0.41 K/uL Eosinophils # (Auto) 0.24 K/uL Basophils # (Auto) 0.05 K/uL RDW Standard Deviation 43.9 fL RDW Coefficient of Variation 13.6 % Immature Granulocyte % (Auto) 0.0 % Immature Granulocyte # (Auto) 0.00 K/uL Prothrombin Time 10.4 SECONDS Prothromb Time International Ratio 1.0 Activated Partial Thromboplast Time 27.2 SECONDS Partial Thromboplastin Ratio 1.0 Sodium Level 142 mmol/L Potassium Level 4.8 mmol/L Chloride Level 105 mmol/L Carbon Dioxide Level 27 mmol/L Anion Gap 10.0 mmol/L Blood Urea Nitrogen 35 mg/dl Creatinine 1.70 mg/dl Est Creatinine Clear Calc Drug Dose 42.8 ml/min Estimated GFR () 43.8 Estimated GFR (Non- 37.8 BUN/Creatinine Ratio 20.4 Random Glucose 360 mg/dl Calcium Level 8.8 mg/dl Total Bilirubin 0.4 mg/dl Aspartate Amino Transf (AST/SGOT) 19 U/L Alanine Aminotransferase (ALT/SGPT) 22 U/L Alkaline Phosphatase 119 U/L Total Creatine Kinase 218 U/L Creatine Kinase MB 8.1 ng/ml Creatine Kinase MB Ratio 3.7 Total Protein 6.7 gm/dl Albumin 3.3 gm/dl Globulin 3.4 gm/dl Albumin/Globulin Ratio 1.0 Beta-Hydroxybutyric Acid 3.66 mg/dL Bedside Troponin I 0.000 ng/ml Bedside Glucose 386 mg/dl Date/Time Source Procedure Growth Status 05/14/16 03:40 Blood Blood Culture Pending Received 05/14/16 03:40 Blood Blood Culture Pending Received Assessment & Plan Patient is a 76 y/o male who presented with worsening SOB and cough. COPD exacerbation - possible underlying pneumonia - continue nebulizers - continue levofloxacin - transition methylprednisone to prednisone - repeat CXR tomorrow - Pulmonary consulted (patient on schedule for outpatient bronchoscopy tomorrow) Type 2 DM - titrate insulin therapy - glycemic pharmacy consulted HTN - bp above goal - increase losartan - continue aspirin Chronic venous stasis - continue outpatient furosemide CKD stage 3 - baseline creatinine 1.5-1.8 - avoid nephrotoxins BPH - continue tamsulosin DVT prophylaxis with heparin sq Consultants: Pulmonary Current Inpatient Medications: Current Inpatient Medications Medications (Trade) Dose Ordered Sig/Bertha Route Start Time Stop Time Status Last Admin Dose Admin Heparin Sodium (Porcine) (Heparin Sq 5000 Unit/0.5ml) 5,000 unit Q8H SQ 05/14/16 06:00 06/13/16 05:59 05/14/16 08:47 5,000 UNIT Acetaminophen (Tylenol Tab) 650 mg Q4H PRN PO 05/14/16 05:45 06/13/16 05:44 Ondansetron HCl (Zofran Inj) 4 mg Q6H PRN IV 05/14/16 05:45 06/13/16 05:44 Aspirin (Ecotrin Tab) 81 mg DAILY PO 05/14/16 08:00 06/13/16 08:59 05/14/16 08:42 81 MG Fluticasone Propionate (Flonase Nasal [place]) 2 sprays DAILY ALDEN 05/14/16 08:00 06/13/16 08:59 05/14/16 08:40 2 SPRAYS Albuterol/ Ipratropium (Combivent Respimat Inh) 2 puffs QID PRN INH 05/14/16 05:45 06/13/16 05:44 Losartan Potassium (coZAAR TAB) 50 mg DAILY PO 05/14/16 08:00 06/13/16 08:59 05/14/16 08:42 50 MG Montelukast Sodium (Singulair Tab) 10 mg PM PO 05/14/16 21:00 06/13/16 20:59 Nitroglycerin (Nitrostat Tab) 0.4 mg UD PRN UT 05/14/16 05:45 06/13/16 05:44 Simvastatin (Zocor Tab) 20 mg QPM PO 05/14/16 21:00 06/13/16 20:59 Tamsulosin HCl (Flomax Cap) 0.4 mg DAILY PO 05/14/16 08:00 06/13/16 08:59 05/14/16 08:43 0.4 MG Tramadol HCl (Ultram Tab) 50 mg Q8H PRN PO 05/14/16 05:45 06/13/16 05:44 Zolpidem Tartrate (Ambien Tab) 5 mg HS PRN PO 05/14/16 05:45 06/13/16 05:44 Miscellaneous Information (Order Awaiting Action) 1 ea QS N/A 05/14/16 08:00 06/13/16 07:59 Albuterol/ Ipratropium (Duoneb) 3 ml Q6R INH 05/14/16 09:00 06/13/16 08:59 05/14/16 14:19 3 ML Levofloxacin 1 ea 1 ea UD PRN N/A 05/14/16 06:00 06/13/16 05:59 Levofloxacin/Prmx (Levaquin / D5W/ Premixed D5W) 150 ml @ 100 mls/hr Q48H IV 05/16/16 04:00 05/21/16 03:59 Insulin Aspart (novoLOG ASPART) SLIDING SCALE If C... ACHS SC 05/14/16 08:15 06/13/16 08:14 05/14/16 13:02 15 UNITS Glucose (Glucose 40% Gel) 15-30 GRAMS 15 GRAMS... UD PRN PO 05/14/16 08:15 06/13/16 08:14 Glucose (Glucose Chew Tab) 4-8 Tablets 4 Tabl... UD PRN PO 05/14/16 08:15 06/13/16 08:14 Dextrose (Dextrose 50% 50ML Syringe) 25-50ML OF 50% DW IV FOR... UD PRN IV 05/14/16 08:15 06/13/16 08:14 Glucagon (Glucagon Inj) 1 mg UD PRN SQ 05/14/16 08:15 06/13/16 08:14 Miscellaneous Information (Consult Glycemic Management Pharmacy) 1 ea UD N/A 05/14/16 08:20 06/13/16 08:19 Insulin Glargine (Lantus Solostar Pen) 15 unit Q12 SC 05/14/16 09:00 06/13/16 08:59 05/14/16 09:57 15 UNIT Furosemide 20 mg 20 mg Q2D@0900 PO 05/16/16 09:00 06/15/16 08:59 Methylprednisolone Sodium Succinate/ Syringe (Solu-Medrol IV/ Syringe) 0.32 ml @ 1.5 mls/min Q8@0400,1200,2000 IV 05/14/16 12:30 06/13/16 12:29 05/14/16 13:04 1.5 MLS/MIN Insulin Aspart (novoLOG ASPART) SLIDING SCALE If C... TODAY@1400 SC 05/14/16 14:00 05/14/16 15:00 Insulin Aspart (novoLOG ASPART) SLIDING SCALE If C... DAILY@0000,0400 SC 05/15/16 00:00 06/14/16 00:00
[2016-05-14] MEDS ORDERED: LOSARTAN POTASSIUM 50 MG TAB PO ONE (14:30)
--- NOTE | 2016-05-14 16:07 | Pulmonary Consultation ---
History General Date of Service: May 14, 2016. Stated Complaint: Copd Exacer.; Dm 1.5, Managed As Type 2; Pneumonia HPI The patient is a 76 year old male who presents to [facility] with complaints of Copd Exacer.; Dm 1.5, Managed As Type 2; Pneumonia. The patient's primary care provider is Kg Monte M.D.. 76-year-old male presented to the emergency Department at [facility] for progressive productive cough and shortness of breath. He was also seen in the emergency department for acute visit on 05/11/16 and was provided rescue inhaler at that time. Per the patient has been experiencing increasing cough mildly productive with shortness of breath also increasing over the last 2 months. He was set up for bronchoscopy with evaluation of possible mucoid clearance with Dr. Stewart marion tomorrow morning. At this time the patient feels 100% better notes a decrease in his shortness of breath, cough as well as mucous production. Denies: Pleurisy, classic cardiac chest pain, headache, dizziness, palpitations , hemoptysis, nausea, vomiting Treatment: #1 DuoNeb #2 methylprednisolone 80 mg 1 in the emergency room #3 levofloxacin 750 mg IV #4 singular 10 mg #5 methylprednisolone 20 mg 3 times #6 Flonase nasal spray #7 Combivent MDI Bronchoscopy 10/16/15 Right bronchial tree: Copious mucopurulent secretions Right middle lobe: Mildly [place] with mucopurulent secretions Right lower lobe virtually occluded with nuchal. Secretions Microbiology: BAL 09/08/14: Aspergillus fumigatus Blood 11:15: Bacillus species Bronchial washing 10/21/15: Aspergillus fumigatus/Licha albicans Date: 02/16/15 PRE POST % CHANGE FEV1/FVC: 62 51 -17 FEV1: 2.07/71% 1.82/51% -12 FVC: 3.36/71% 3.56/76% 6 25-27%: 43% 27% T.4/74% VC: 2.91/62% RV: 2.63/98% FRC: DLCO: 41% DLCO/VA; 58% Historian: patient, EMS Review of Systems Constitutional: reports: weakness Eyes: reports: no symptoms ENT: reports: no symptoms Cardiovascular: reports: no symptoms Respiratory: reports: BRIGGS, cough, shortness of breath, wheezing Gastrointestinal: reports: no symptoms Genitourinary - Male: reports: no symptoms Musculoskeletal: reports: no symptoms Integumentary: reports: no symptoms Neurologic: reports: no symptoms Psychiatric: reports: no symptoms Endocrine: no symptoms Hematologic / Lymphatic: no symptoms Allergic / Immunologic: no symptoms Past Medical History Past Medical History: 1.Abnormal chest CT 2.Aspergillosis, unspecified 3.Mild COPD (FEV1: 71%) 4.Discoid atelectasis 5.Pleural plaque with presence of asbestos 6.Pulmonary aspergillosis 7.Asbestos exposure 8.BPH 9.Chronic kidney disease/stage III: baslein Cr:1.7 10.Diabetes 11.Dyslipidemia 12.Basal cell carcinoma 13.Hypertension 14.Paroxysmal atrial fibrillation Past Surgical History: 1.Nasal polypectomy 2.Inguinal hernia repair 3.Left temporoparietal correction 1992 Family History Cancer MOTHER Diabetes mellitus BROTHER Gallbladder disease Heart disease Hypertension Kidney disease Kidney stones Social History Hx Tobacco Use In Past Year?: No Smoking Status: Former Smoker Marital status: Housing status: lives with family Occupational Status: retired Immunizations History of Influenza Vaccine: Yes History of Tetanus Vaccine?: Yes History of Pneumococcal: Yes History of Hepatitis B Vaccine: Unknown History of MDRO History of MDRO: No Allergies Coded Allergies: Diltiazem (Verified Allergy, Unknown, RASH, 05/14/16) Propoxyphene (Verified Allergy, Unknown, _, 05/14/16) Aspirin (Verified Adverse Reaction, Unknown, GI SYMPTOMS, 05/14/16) Lisinopril (Verified Adverse Reaction, Unknown, cough, 05/14/16) Current Medications Reported Home Medications Medications Dose Route/Sig Max Daily Dose Days Date Category Dose Instructions Ambien (Zolpidem Tartrate) 5 Mg Tab 5-10 Mg PO HS PRN 05/14/16 Reported Levaquin (Levofloxacin) 500 Mg Tab 500 Mg PO DAILY PRN 10 05/14/16 Reported take until gone Prednisone 10 Mg Tab Mg PO UD PRN 05/14/16 Reported 4 tabs daily x 4 days 3 tabs daily x 4 days 2 tabs daily x 4 days 1 tab daily x 4 days take with food Cozaar (Losartan Potassium) 50 Mg Tab 50 Mg PO DAILY 05/14/16 Reported Levemir (Insulin Detemir) 100 Units/Ml Inj SQ UD 05/14/16 Reported 14 units in am and 8 units in pm Ultram (Tramadol HCl) 50 Mg Tab 50 Mg PO Q8H PRN 10/16/15 Reported Aspirin 81 (Aspirin) 81 Mg Tab 81 Mg PO DAILY 10/16/15 Reported Combivent Respimat (Ipratropium-Albuterol) 1 Aer Aer 1 Puff PO QID PRN 10/16/15 Reported Dulera 200/5 Mcg (Mometasone Furoate-Formoterol) 1 Aer Aer 2 Puffs PO BID 10/16/15 Reported Flonase (Fluticasone Propionate (Nasal)) 50 Mcg/Act Spr 2 [place] ALDEN DAILY 12/08/14 Reported Lasix (Furosemide) 20 Mg Tab 20 Mg PO Q2D 09/18/14 Reported Novolog (Insulin Aspart) 100 Unit/ Inj 0 SC AMHS 09/18/14 Reported PER SLIDING SCALE approximately 10 units twice a day Flomax (Tamsulosin Hcl) 0.4 Mg Cap 0.4 Mg PO DAILY 09/18/14 Reported Montelukast Sodium (Montelukast Sod) 10 Mg Tab 10 Mg PO DAILY 10/20/13 Reported Nitrostat (Nitroglycerin) 0.4 Mg Tab 0.4 Mg UT UD PRN 10/20/13 Reported Zocor (Simvastatin) 20 Mg Tab 20 Mg PO QPM 12/11/08 Reported take with supper Physical Physical Exam Vital Signs: Date Time Temp Pulse Resp B/P Pulse Ox O2 Delivery O2 Flow Rate FiO2 05/14/16 14:55 92 163/82 05/14/16 14:53 93 18 98 Nasal Cannula 2.0 05/14/16 08:30 99 172/82 97 Nasal Cannula 2.0 05/14/16 07:45 97 Nasal Cannula 2.0 05/14/16 06:45 36.6 98 18 196/91 95 Nasal Cannula 2.0 05/14/16 05:52 85 22 179/74 99 Nasal Cannula 2.0 05/14/16 04:40 67 22 195/89 99 Nasal Cannula 2.0 05/14/16 03:33 89 Room Air 05/14/16 03:24 74 05/14/16 03:23 94 Nasal Cannula 2.0 05/14/16 03:23 94 Nasal Cannula 2.0 05/14/16 02:56 36.8 83 26 181/84 90 Room Air General Appearance: mild distress Head: NORMOCEPHALIC, ATRAUMATIC Eyes: PERRLA, NO DISCHARGE, EOMI, SCLERAE NORMAL ENT: NORMAL EAR EXAM, NORMAL NASAL EXAM, NORMAL MOUTH EXAM, NORMAL THROAT EXAM Neck: NORMAL RANGE OF MOTION, NO TENDERNESS, TRACHEA MIDLINE, NO STRIDOR Respiratory: rhonchi, wheezing Cardiovasular: REGULAR RATE/RHYTHM, NORMAL S1S2, NO M/G/R, NO MURMUR Abdomen: NON TENDER, NORMAL BOWEL SOUNDS, NO REBOUND, NO MASSES, NO GUARDING, NO ORGANOMEGALY Genitourinary - Male: EXTERNAL GENITALIA NORMAL Back: NORMAL INSPECTION, NO MIDLINE TENDERNESS, NO CVA TENDERNESS, NO PARAVERTEBRAL TTP Upper Extremities: NO EDEMA, NO DEFORMITY, other (left upper lobe well-healing scar lateral portion of the elbow) Lower Extremities: NO EDEMA Pulses: carotid (R) (2+), carotid (L) (2+), dorsalis pedis (R) (1+), dorsalis pedis (L) (1+) Neuro: ALERT, ORIENTED x 3, NORMAL MOTOR EXAM, NORMAL SENSATION, NORMAL CEREBELLAR EXAM, NORMAL SPEECH Reflexes: biceps (R) (2+), bicpes (L) (2+) Babinski Testing: right (downgoing), left (downgoing) Psychiatric: NORMAL AFFECT, NO SUICIDAL IDEATION, CONTRACTS FOR SAFETY Diagnostics Labs Results Past 24 Hours Test 05/14/16 03:25 05/14/16 03:27 05/14/16 07:55 05/14/16 14:40 Range/Units White Blood Count 5.08 4.8-10.8 K/uL Red Blood Count 3.97 4.7-6.1 M/uL Hemoglobin 11.4 14.0-18.0 g/dL Hematocrit 34.6 42-52 % Mean Corpuscular Volume 87.2 80-100 fL Mean Corpuscular Hemoglobin 28.7 25-34 pg Mean Corpuscular Hemoglobin Concent 32.9 32-36 g/dl Platelet Count 207 130-400 K/uL Mean Platelet Volume 10.1 7.4-10.4 fL Neutrophils (%) (Auto) 60.8 % Lymphocytes (%) (Auto) 25.4 % Monocytes (%) (Auto) 8.1 % Eosinophils (%) (Auto) 4.7 % Basophils (%) (Auto) 1.0 % Neutrophils # (Auto) 3.09 1.4-6.5 K/uL Lymphocytes # (Auto) 1.29 1.2-3.4 K/uL Monocytes # (Auto) 0.41 0.11-0.59 K/uL Eosinophils # (Auto) 0.24 0-0.5 K/uL Basophils # (Auto) 0.05 0-0.2 K/uL RDW Standard Deviation 43.9 36.4-46.3 fL RDW Coefficient of Variation 13.6 11.5-14.5 % Immature Granulocyte % (Auto) 0.0 % Immature Granulocyte # (Auto) 0.00 0.00-0.02 K/uL Prothrombin Time 10.4 9.0-12.0 SECONDS Prothromb Time International Ratio 1.0 0.9-1.1 Activated Partial Thromboplast Time 27.2 21.0-31.0 SECONDS Partial Thromboplastin Ratio 1.0 Sodium Level 142 136-145 mmol/L Potassium Level 4.8 3.5-5.1 mmol/L Chloride Level 105 98-107 mmol/L Carbon Dioxide Level 27 21-32 mmol/L Anion Gap 10.0 3-11 mmol/L Blood Urea Nitrogen 35 7-18 mg/dl Creatinine 1.70 0.60-1.40 mg/dl Est Creatinine Clear Calc Drug Dose 42.8 ml/min Estimated GFR () 43.8 Estimated GFR (Non- 37.8 BUN/Creatinine Ratio 20.4 10-20 Random Glucose 360 70-99 mg/dl Calcium Level 8.8 8.5-10.1 mg/dl Total Bilirubin 0.4 0.2-1 mg/dl Aspartate Amino Transf (AST/SGOT) 19 15-37 U/L Alanine Aminotransferase (ALT/SGPT) 22 12-78 U/L Alkaline Phosphatase 119 45-117 U/L Total Creatine Kinase 218 39-308 U/L Creatine Kinase MB 8.1 0.5-3.6 ng/ml Creatine Kinase MB Ratio 3.7 0-3.0 Total Protein 6.7 6.4-8.2 gm/dl Albumin 3.3 3.4-5.0 gm/dl Globulin 3.4 2.5-4.0 gm/dl Albumin/Globulin Ratio 1.0 0.9-2 Beta-Hydroxybutyric Acid 3.66 0.2-2.81 mg/dL Bedside Troponin I 0.000 0-0.045 ng/ml Bedside Glucose 386 235 70-99 mg/dl Microbiology Results 05/14/16 Blood Culture, Received Pending 05/14/16 Blood Culture, Received Pending Diagnostic Radiology #2 chest x-ray 05/11/2016: Bibasilar scarring/bronchiectasis #3 chest x-ray 05/14/2016: Hyperinflation with bibasilar bronchiectasis/fine #4 CT thorax 10/19/15: Bibasilar right greater than left interstitial changes, pleural scarring right greater than left with pleural calcifications EKG #1 EKG: Normal sinus rhythm, LAFB, no ectopy Impression Assessment and Plan 68-year-old gentleman with progressive cough and dyspnea on exertion admitted for respiratory insufficiency: #1: Respiratory: Patient was admitted with respiratory insufficiency and initiated on duo nebs, methylprednisolone, levofloxacin and continued on Singulair, Flonase and Combivent MDIs. At this time he is noted to dramatic change in his respiratory status. I believe that this time we should place the patient nothing by mouth I have left a message for Dr. Stewart marion to continue with preplanned bronchoscopy with BAL. #2: Asbestosis: Reviewing patient's history, primary function tests and CAT scan I believe it is highly likely patient has pleural plaquing secondary to his doses as well as asbestosis/ILD of the lung. Patient notes that he was told by Dr. 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 I pleural effusions the pathological records at this time and see no signs of definitive asbestos/ferruginous bodies. The patient does note this disease is progressive and will of the future most likely require increased support. #3: Aspergillosis: Patient previously treated for invasive aspergillosis of the lung. At this time he notes minimal relief of symptoms from previous treatment. Would not reinitiate voriconazole is highly likely progressive lung disease is secondary to asbestosis of the lung and aspergillosis colonized organism.
[2016-05-14] MEDS: MONTELUKAST SOD 10 MG TAB PO SCH (20:31)
[2016-05-14] MEDS: SIMVASTATIN 20 MG TAB PO SCH (20:31)
[2016-05-15] VITALS (9 sets, daily range): BP systolic 116–189; BP diastolic 68–86; PULSE 67–84; TEMP 36.2–36.8; O2SAT 90–97
[2016-05-15] MEDS: INSULIN ASPART 100 UNITS/ML 3 ML PEN SC SCH ×7 (00:46→23:57)
[2016-05-15] MEDS: ALBUT/IPRATROP 3MG/0.5MG NEB 3 ML VIAL INH SCH ×4 (02:13→19:18)
[2016-05-15 06:20] LABS: MEAN CELL VOLUME 85.6 fL (80-100); MEAN CORPUSCULAR HEMOGLOBIN 28.1 pg (25-34); MEAN CORPUSCULAR HGB CONC 32.8 g/dl (32-36); MEAN PLATELET VOLUME 10.6 fL (7.4-10.4); PLATELET COUNT 219 K/uL (130-400); RED BLOOD COUNT 3.74 M/uL (4.7-6.1); WHITE BLOOD COUNT 12.12 K/uL (4.8-10.8)
--- NOTE | 2016-05-15 06:46 | PROGRESS NOTE ---
DATE: 05/15/2016 SUBJECTIVE: The patient states he is considerably better than at the time of admission. He has not had any cough or sputum production now and states he feels 100% better. He has been evaluated by Dr. Kenyon and Dr. Patrick, those notes are appreciated. Apparently he did not like the taste of Dulera and it caused him to cough, so he stopped it several weeks ago. That may be the reason why he was seen in the Emergency Room by Dr. Conte last week and now admitted to the hospital. He is not smoking. He has not had any exposures. According to nurses' notes, he had a fairly good night last night. The patient states he is doing well. Does have diabetes mellitus. Tolerating his medications well. They are noted. PHYSICAL EXAMINATION: VITAL SIGNS: Reveals his blood pressure to be 148/75, his pulse is 80 and regular, respiratory rate 18, oxygen saturation 96% on 2 liters and again he is afebrile. His weight is 94.8 kilograms. He did have a CT of his chest done in November 2015 that showed bilateral lower lobe ground-glass opacities, improved when compared to the ones from September 2015, most likely reflecting atelectasis. Calcified plaques suggesting asbestos exposure noted and changes consistent with pulmonary hypertension and moderate degree of emphysema were noted as well. HEENT: Unremarkable with no thrush noted. He has septal deviation to the right side. No tenderness noted over the sinuses. No adenopathy is noted. NECK: There is no neck vein distention or HJR. HEART: Regular rate and rhythm. I do not detect any murmurs. Heart sounds are distant. LUNGS: With decreased breath sounds with some coarse breath sounds particularly at the left base posterior. No crackles or rales noted, no wheezing noted. Forced expiratory maneuver about 3 seconds with no wheezing. ABDOMEN: Soft and obese, nontender. EXTREMITIES: He has no cyanosis, clubbing or edema. LABORATORY DATA: The white count is pending for today, hemoglobin was 11.4 on the 15th. His sugars have been in the 192-260 range. Creatinine is 1.7. Liver function studies are stable. Blood cultures are pending. Chest x-ray revealed changes consistent with cardiomegaly with chronic basilar opacities consistent with atelectasis. IMPRESSION: 1. Chronic obstructive pulmonary disease with exacerbation. 2. Chronic atrial fibrillation. By his exam and EKG in the Emergency Room that has converted to normal sinus rhythm. 3. Diabetes mellitus. 4. Emphysema. PLAN: 1. Continue his present medications. We should continue him on a long-acting bronchodilator. I would recommend switching him to Symbicort from Dulera since he was intolerant to the Dulera. 2. Combivent Respimat 1 puff 4 times a day and I would give it continuously. 3. Good glucose control. 4. Continue to taper the prednisone. 5. At this point I think I would continue on the Levaquin. Overall, he is stable. We will await the culture results as well.
[2016-05-15 06:52] LABS: BUN/CREATININE RATIO 21.7 (10-20); CALCIUM 8.8 mg/dl (8.5-10.1); MAGNESIUM 2.1 mg/dl (1.8-2.4); POTASSIUM 5.2 mmol/L (3.5-5.1)
--- NOTE | 2016-05-15 07:40 | DIAGNOSTIC IMAGING REPORT ---
CHEST 2 VIEWS ROUTINE CLINICAL HISTORY: Pneumonia. COMPARISON STUDY: 05/14/2016 FINDINGS: The heart is enlarged. There are right-sided pleural calcifications. There is bibasal atelectasis. There is no lobar consolidation. There is no overt failure. Underlying emphysema is suspected.[ There is a trace right pleural effusion. IMPRESSION: 1. Cardiomegaly and trace right pleural effusion 2. Bibasilar airspace opacities likely atelectatic 3. Calcified pleural plaques Electronically signed by: Bruno Lisa M.D. 05/15/2016 7:38 AM Dictated Date/Time: 05/15/2016 7:37 AM
[2016-05-15] MEDS: ASPIRIN 81 MG ECTAB PO SCH (07:50)
[2016-05-15] MEDS: TAMSULOSIN HCL 0.4 MG CAP PO SCH (07:51)
[2016-05-15] MEDS: LOSARTAN POTASSIUM 50 MG TAB PO SCH (07:51)
[2016-05-15] MEDS: DULERA~ORDER AWAITING ACTION SCH ×4 (07:52→23:55)
[2016-05-15] MEDS: FLUTICASONE PROPIONATE NA SPR 16 GM BTL NAE SCH (07:52)
[2016-05-15] MEDS: BUDESONIDE/FORMOTEROL FUMARATE 160/4.5 60 PUFFS/INHALER INH SCH ×2 (07:57→20:36)
[2016-05-15] MEDS: PANTOprazole SOD 40 MG TAB PO SCH (08:47)
[2016-05-15] MEDS: INSULIN GLARGINE SOLOSTAR 100 UNITS/ML 3 ML PEN SC SCH ×2 (08:54→20:40)
--- NOTE | 2016-05-15 13:55 | Pharmacy Progress Note ---
Glycemic Control: Progress Nt Date of Service May 15, 2016. Scope Glycemic Pharmacist consulted by Dr Hdez on 05/14/16 for glycemic control and to write orders per [facility] inpatient glycemic control protocol. Objective Accuchecks BSG (last 24hrs): Test 05/14/16 14:40 05/14/16 16:47 05/14/16 20:14 05/15/16 00:30 Bedside Glucose 235 mg/dl (70-99) 192 mg/dl (70-99) 260 mg/dl (70-99) 194 mg/dl (70-99) Test 05/15/16 04:22 05/15/16 05:24 05/15/16 07:43 05/15/16 11:45 Bedside Glucose 222 mg/dl (70-99) 271 mg/dl (70-99) 366 mg/dl (70-99) Random Glucose 244 mg/dl (70-99) Laboratory Data (last 24hrs) Test 05/15/16 05:24 Anion Gap 10.0 mmol/L BUN/Creatinine Ratio 21.7 Blood Urea Nitrogen 43 mg/dl Creatinine 2.00 mg/dl Potassium Level 5.2 mmol/L Sodium Level 139 mmol/L White Blood Count 12.12 K/uL Recent Pertinent Medications Outpatient Anti-diabetic Regimen: * NovoLog sliding scale * ~10 units BID * Levemir (recently changed from Lantus) * 14 units in the AM * 8 units in the PM * Total daily insulin needs ~42 units/day * A1c = 8.8 % 09/2015 - out dated The patient is currently receiving: * Basal insulin: Lantus 15 units every 12 hours * Correctional Insulin: NovoLog Correction per scale AC+HS+00+04 Goal Range: Low 120 mg/dL - High 160 mg/dL Correction Factor: 25 mg/dL/unit * Prandial insulin: Per carb ratio of 1 unit per 8 grams CHO consumed Risk Factors for Insulin Resistance: * Steroids: Solu-Medrol 80mg IV x1 dose in the ED on 05/14, then Solu-Medrol 20mg IV q8H --> Prednisone 40mg PO daily today * Infection: COPD exacerbation, r/o pneumonia - levofloxacin IV-->PO * Diet: T2DM/low Na Assessment & Plan ASSESSMENT: * ADA & AACE recommend a goal blood sugar range 140-180 mg/dl for the majority of critically ill & non-critically ill patients. However, more stringent targets may be selected in individual cases. 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 * As an outpatient, Mr Plata uses basal/bolus regimen to control diabetes - will require similar regimen upon admission * Currently having a COPD exacerbation and requiring around the clock steroids and IV antibiotics * predict insulin needs will increase precipitously secondary to this. * BSG on admission severely elevated * will initiate SQ insulin JUNIOR basing doses on both historical admissions as well as home needs * if BSG >300mg/dL with lunch, will augment with IV insulin and additional Accu -checks 05/15/16 * BSGs responded nicely yesterday to the IV insulin and additional Accu-checks. * Fasting BSG today again elevated - no indication to lower basal dose at this time * continue current dose, but have low threshold to reduce dose as steroids are tapered * Pre-lunch BSG again elevated severely * not notified thus IV insulin not given * correction factor and carb ratio was tightened this morning to help correct * if BSG again severely elevated at dinner give IV insulin to augment NovoLog * Steroids beginning to taper * reduce insulin doses based on BSG response PLAN FOR INPATIENT GLYCEMIC CONTROL: * Continue Lantus 15 units SQ BID * using Lantus at this time (in lieu of Levemir) as the patient has not transitioned over to Levemir yet though active on med list * Continue NovoLog AC and HS * Accu-checks overnight (at 00:00 and 04:00) * Correction factor: tighten to 20mg/dL/unit * Carb ratio: tighten to 1 unit per 7g of CHO consumed * Goal range: 120-160mg/dL * A1c - outdated, on order with AM labs * add to discharge instructions * Please note that the plan above was derived based on current level of insulin resistance and hospital stress. These recommendations are appropriate for inpatient admission only. Plan of care upon discharge will need to be reassessed to avoid potential outpatient hypo/hyperglycemia. Thank you.
[2016-05-15] MEDS ORDERED: INSULIN ASPART 100 UNITS/ML 3 ML PEN SC SCH (15:15)
[2016-05-15] MEDS ORDERED: INSULIN REGULAR 8 UNITS in SYRINGE 7.92 ML IV SCH (15:30)
--- NOTE | 2016-05-15 15:38 | Progress Note ---
Medicine Progress Note Date & Time of Visit: May 15, 2016 at 15:33. Subjective Patient seen and examined. Breathing has significantly improved. Minimal cough. Pulmonary is no longer planning for bronchoscopy. Objective Last 8 Hrs Date Time Temp Pulse Resp B/P Pulse Ox O2 Delivery O2 Flow Rate FiO2 05/15/16 13:46 75 18 96 Room Air 05/15/16 11:10 189/76 05/15/16 11:08 76 183/78 94 Room Air 05/15/16 09:00 92 Room Air 05/15/16 08:00 Room Air Physical Exam: General-awake; alert; NAD Eyes-EOMI; no scleral icterus Neck-no stridor; trachea midline Lungs-CTA bilaterally; no wheezes/crackles Heart-RRR; no m/r/g Abdomen-soft; NTND; nBS Extremities-trace LE edema, r>l; no deformity Neuro-no gross focal deficits Laboratory Results: Last 24 Hours Test 05/14/16 16:47 05/14/16 20:14 05/15/16 00:30 05/15/16 04:22 Bedside Glucose 192 mg/dl 260 mg/dl 194 mg/dl 222 mg/dl Test 05/15/16 05:24 05/15/16 07:43 05/15/16 11:45 05/15/16 14:53 White Blood Count 12.12 K/uL Red Blood Count 3.74 M/uL Hemoglobin 10.5 g/dL Hematocrit 32.0 % Mean Corpuscular Volume 85.6 fL Mean Corpuscular Hemoglobin 28.1 pg Mean Corpuscular Hemoglobin Concent 32.8 g/dl RDW Standard Deviation 42.6 fL RDW Coefficient of Variation 13.6 % Platelet Count 219 K/uL Mean Platelet Volume 10.6 fL Sodium Level 139 mmol/L Potassium Level 5.2 mmol/L Chloride Level 101 mmol/L Carbon Dioxide Level 28 mmol/L Anion Gap 10.0 mmol/L Blood Urea Nitrogen 43 mg/dl Creatinine 2.00 mg/dl Est Creatinine Clear Calc Drug Dose 33.4 ml/min Estimated GFR () 36.0 Estimated GFR (Non- 31.0 BUN/Creatinine Ratio 21.7 Random Glucose 244 mg/dl Calcium Level 8.8 mg/dl Magnesium Level 2.1 mg/dl Bedside Glucose 271 mg/dl 366 mg/dl 396 mg/dl Assessment & Plan Patient is a 76 y/o male who presented with worsening SOB and cough. COPD exacerbation - continue nebulizers - continue levofloxacin - transitioned methylprednisone to prednisone and plan for taper - CXR negative for consolidation - Pulmonary consulted Type 2 DM - titrate insulin therapy - glycemic pharmacy consulted HTN - bp above goal - increased losartan - continue aspirin Chronic venous stasis - continue outpatient furosemide CKD stage 3 - baseline creatinine 1.5-1.8 - avoid nephrotoxins BPH - continue tamsulosin DVT prophylaxis with heparin sq Anticipate discharge tomorrow Consultants: Pulmonary Current Inpatient Medications: Current Inpatient Medications Medications (Trade) Dose Ordered Sig/Bertha Route Start Time Stop Time Status Last Admin Dose Admin Heparin Sodium (Porcine) (Heparin Sq 5000 Unit/0.5ml) 5,000 unit Q8H SQ 05/14/16 06:00 06/13/16 05:59 Future Hold 05/14/16 20:36 5,000 UNIT Acetaminophen (Tylenol Tab) 650 mg Q4H PRN PO 05/14/16 05:45 06/13/16 05:44 Ondansetron HCl (Zofran Inj) 4 mg Q6H PRN IV 05/14/16 05:45 06/13/16 05:44 Aspirin (Ecotrin Tab) 81 mg DAILY PO 05/14/16 08:00 06/13/16 08:59 05/15/16 07:50 81 MG Fluticasone Propionate (Flonase Nasal [place]) 2 sprays DAILY [place]DEN 05/14/16 08:00 06/13/16 08:59 05/15/16 07:52 2 SPRAYS Albuterol/ Ipratropium (Combivent Respimat Inh) 2 puffs QID PRN INH 05/14/16 05:45 06/13/16 05:44 Montelukast Sodium (Singulair Tab) 10 mg PM PO 05/14/16 21:00 06/13/16 20:59 05/14/16 20:31 10 MG Nitroglycerin (Nitrostat Tab) 0.4 mg UD PRN UT 05/14/16 05:45 06/13/16 05:44 Simvastatin (Zocor Tab) 20 mg QPM PO 05/14/16 21:00 06/13/16 20:59 05/14/16 20:31 20 MG Tamsulosin HCl (Flomax Cap) 0.4 mg DAILY PO 05/14/16 08:00 06/13/16 08:59 05/15/16 07:51 0.4 MG Tramadol HCl (Ultram Tab) 50 mg Q8H PRN PO 05/14/16 05:45 06/13/16 05:44 Zolpidem Tartrate (Ambien Tab) 5 mg HS PRN PO 05/14/16 05:45 06/13/16 05:44 Miscellaneous Information (Order Awaiting Action) 1 ea QS N/A 05/14/16 08:00 06/13/16 07:59 Albuterol/ Ipratropium (Duoneb) 3 ml Q6R INH 05/14/16 09:00 06/13/16 08:59 05/15/16 13:45 3 ML Levofloxacin (Consult) 1 ea UD PRN N/A 05/14/16 06:00 06/13/16 05:59 Insulin Aspart (novoLOG ASPART) SLIDING SCALE If C... ACHS SC 05/14/16 08:15 06/13/16 08:14 05/15/16 12:38 20 UNITS Glucose (Glucose 40% Gel) 15-30 GRAMS 15 GRAMS... UD PRN PO 05/14/16 08:15 06/13/16 08:14 Glucose (Glucose Chew Tab) 4-8 Tablets 4 Tabl... UD PRN PO 05/14/16 08:15 06/13/16 08:14 Dextrose (Dextrose 50% 50ML Syringe) 25-50ML OF 50% DW IV FOR... UD PRN IV 05/14/16 08:15 06/13/16 08:14 Glucagon (Glucagon Inj) 1 mg UD PRN SQ 05/14/16 08:15 06/13/16 08:14 Miscellaneous Information (Consult Glycemic Management Pharmacy) 1 ea UD N/A 05/14/16 08:20 06/13/16 08:19 Insulin Glargine (Lantus Solostar Pen) 15 unit Q12 SC 05/14/16 09:00 06/13/16 08:59 05/15/16 08:54 15 UNIT Furosemide (Lasix tab) 20 mg Q2D@0900 PO 05/16/16 09:00 06/15/16 08:59 Insulin Aspart (novoLOG ASPART) SLIDING SCALE If C... DAILY@0000,0400 SC 05/15/16 00:00 06/14/16 00:00 05/15/16 04:27 3 UNITS Losartan Potassium (coZAAR TAB) 100 mg DAILY PO 05/15/16 08:00 06/14/16 07:59 05/15/16 07:51 100 MG Prednisone (PredniSONE TAB) 40 mg DAILY PO 05/15/16 08:00 06/14/16 07:59 05/15/16 07:51 40 MG Budesonide/ Formoterol Fumarate (Symbicort 160/ 4.5 Inh) 2 puffs BID INH 05/15/16 08:00 06/14/16 07:59 05/15/16 07:57 2 PUFFS Pantoprazole Sodium (Protonix Tab) 40 mg QAM PO 05/15/16 08:00 06/14/16 07:59 05/15/16 08:47 40 MG Levofloxacin 750 mg 750 mg Q2D@11 PO 05/16/16 11:00 05/18/16 23:00 Insulin Human Regular/Syringe (novoLIN-R/ Syringe) 8 ml @ 1 mls/min TODAY@1530 IV 05/15/16 15:30 05/15/16 15:37
[2016-05-15] MEDS: MONTELUKAST SOD 10 MG TAB PO SCH (20:38)
[2016-05-15] MEDS: SIMVASTATIN 20 MG TAB PO SCH (20:38)
[2016-05-16] VITALS: O2SAT 96
[2016-05-16 02:11] VITALS: PULSE 77; O2SAT 98
[2016-05-16] MEDS: ALBUT/IPRATROP 3MG/0.5MG NEB 3 ML VIAL INH SCH ×2 (02:11→07:46)
[2016-05-16] MEDS ORDERED: LEVOFLOXACIN 750MG / D5W IV SCH (04:00)
[2016-05-16] MEDS: INSULIN ASPART 100 UNITS/ML 3 ML PEN SC SCH ×2 (04:00→09:02)
[2016-05-16 06:26] LABS: MEAN CELL VOLUME 86.3 fL (80-100); MEAN CORPUSCULAR HEMOGLOBIN 27.7 pg (25-34); MEAN CORPUSCULAR HGB CONC 32.1 g/dl (32-36); MEAN PLATELET VOLUME 10.5 fL (7.4-10.4); PLATELET COUNT 239 K/uL (130-400); RED BLOOD COUNT 3.94 M/uL (4.7-6.1); WHITE BLOOD COUNT 10.78 K/uL (4.8-10.8)
[2016-05-16 06:56] LABS: BUN/CREATININE RATIO 25.1 (10-20); CALCIUM 9.1 mg/dl (8.5-10.1); MAGNESIUM 2.2 mg/dl (1.8-2.4); POTASSIUM 4.6 mmol/L (3.5-5.1)
--- NOTE | 2016-05-16 06:59 | PROGRESS NOTE ---
DATE: 05/16/2016 SUBJECTIVE: The patient is doing well. He has been ambulating several times around the hallway without difficulty. He is on oxygen at 2 liters per minute. His sugars have been in the 160-245 range. According to nurses' notes, he is doing well. The patient states he feels great now much better than even when he was at home. He has tolerated the antimicrobial agents prednisone well and Symbicort was started and he states that has helped. PHYSICAL EXAMINATION: VITAL SIGNS: Stable and he is afebrile. Blood pressure 175/78 yesterday afternoon, 116/68 last night around midnight; oxygen saturation 98% on room air. HEENT: Unremarkable. No thrush is noted. No adenopathy noted. HEART: Regular rate and rhythm. No murmurs are heard. Heart sounds are distant. LUNGS: Clear today with no wheezing or crackles noted. ABDOMEN: Soft, nontender. EXTREMITIES: He has no cyanosis, clubbing or edema. LABORATORY DATA: Revealed a PRP to show BUN of 43 with a creatinine of 2. His sugars have been increased in the 360 range. White count is pending. Hemoglobin 10.5 yesterday. Blood cultures are negative. Chest film yesterday showed cardiomegaly and probable small right pleural effusion with some atelectasis at the bases. He had a CAT scan in November of this year of the thorax that revealed no significant lobar consolidation or pleural effusions. The right lower lobe ground-glass opacities noted in October 18 had resolved. Calcifications consistent with asbestos exposure was noted along the pleura as well. IMPRESSION: 1. Chronic obstructive pulmonary disease with exacerbation. 2. Chronic atrial fibrillation. 3. Diabetes mellitus. 4. Chronic kidney disease. RECOMMENDATIONS: 1. I would taper the prednisone fairly quickly. Now that he has started Symbicort he feels better. I think he could go to 30 mg daily for 3 days, 20 mg for three days, 10 mg for three days and 5 mg for about a week. 2. Continue on the Symbicort. I explained to him how he should use the inhaler and not miss doses and he understands. 3. Follow up with me in about 4 weeks. I believe he has an appointment on 22 June. I will order a chest x-ray at that time. At this point, I think the antimicrobial agents could be discontinued. Overall, he is stable.
[2016-05-16 07:41] LABS: ESTIMATED AVERAGE GLUCOSE 192 mg/dl; HA1C FLAG Normal (Normal)
[2016-05-16] MEDS: BUDESONIDE/FORMOTEROL FUMARATE 160/4.5 60 PUFFS/INHALER INH SCH (07:45)
[2016-05-16] MEDS: DULERA~ORDER AWAITING ACTION SCH (07:45)
[2016-05-16 07:46] VITALS: PULSE 86; O2SAT 98
[2016-05-16] MEDS: FLUTICASONE PROPIONATE NA SPR 16 GM BTL NAE SCH (07:46)
[2016-05-16] MEDS: TAMSULOSIN HCL 0.4 MG CAP PO SCH (07:47)
[2016-05-16] MEDS: ASPIRIN 81 MG ECTAB PO SCH (07:47)
[2016-05-16] MEDS: LOSARTAN POTASSIUM 50 MG TAB PO SCH (07:47)
[2016-05-16 07:48] VITALS: BP 172/68; PULSE 73; TEMP 36.5; O2SAT 92
[2016-05-16] MEDS: PANTOprazole SOD 40 MG TAB PO SCH (07:48)
[2016-05-16 07:56] VITALS: BP 153/90
--- NOTE | 2016-05-16 08:48 | Discharge Instructions ---
Discharge Instructions Admission Reason for Admission: Copd Exacer.; Dm 1.5, Managed As Type 2; Pneumonia Discharge Discharge Diagnosis / Problem: COPD exacerbation Discharge Goals Goal(s): Improve disease control Activity Recommendations Activity Limitations: resume your previous activity . Instructions / Follow-Up Instructions / Follow-Up Please follow up with Family Medicine Dr. Monte on May 18 at 11:10am. Please keep your scheduled follow up appointment with Dr. Graves on June 22. Current Hospital Diet Patient's current hospital diet: Low Sodium Diet (2gm Na), Diabetes Type 2 Diet Discharge Diet Recommended Diet: Diabetes Type 2 Diet Pending Studies Studies pending at discharge: no Laboratory Results Hemoglobin A1c Test 05/16/16 05:20 Range/Units Estimated Average Glucose 192 mg/dl Hemoglobin A1c 8.3 H 4.5-5.6 % Medical Emergencies . Who to Call and When: Medical Emergencies: If at any time you feel your situation is an emergency, please call 911 immediately. . Non-Emergent Contact Non-Emergency issues call your: Primary Care Provider, Clinical Research Nurse Coordinator . . "Provider Documentation" section prepared by Roxana Perze. VTE Core Measure Inpt VTE Proph given/why not?: Enoxaparin (Lovenox)SQ
[2016-05-16] MEDS ORDERED: PRD10 PO (08:52)
[2016-05-16] MEDS ORDERED: SYMIN INH (08:52)
[2016-05-16] MEDS ORDERED: LOSA50TA6 PO (08:52)
[2016-05-16] MEDS ORDERED: FUROSEMIDE 20 MG TAB PO SCH (09:00)
[2016-05-16] MEDS ORDERED: INSULIN GLARGINE SOLOSTAR 100 UNITS/ML 3 ML PEN SC ONE (09:00)
--- NOTE | 2016-05-16 09:00 | Discharge Summary ---
Discharge Summary Admission Date: May 14, 2016 at 05:42 Discharge Date: May 16, 2016 Discharge Disposition: Home Principal Diagnosis: COPD exacerbation Consultations: Pulmonary Medication Reconciliation New Medications: Fluticasone Prop/Salmeterol (Advair Diskus 250-50 Mcg/Dose) 14 Puff/1 Inhaler Aerp 1 PUFF INH BID for 30 Days, #1 INHALER Prednisone (Prednisone) 10 Mg Tab 10 MG PO UD for 12 Days, #20 TAB Take 3tab daily x3days. Then 2tab daily x3days. Then 1tab daily x3days. Then 0.5tab daily x3days. Changed Medications: Losartan Potassium (Cozaar) 50 Mg Tab 100 MG PO DAILY for 30 Days, #60 TAB (Changed from: 50 MG) Continued Medications: Aspirin (Aspirin 81) 81 Mg Tab 81 MG PO DAILY Fluticasone Propionate (Nasal) (Flonase) 50 Mcg/Act Spr 2 SPRY ALDEN DAILY, 5 Refills Furosemide (Lasix) 20 Mg Tab 20 MG PO Q2D Insulin Aspart (Novolog) 100 Unit/ Inj 0 SC AMHS PER SLIDING SCALE approximately 10 units twice a day Insulin Detemir (Levemir) 100 Units/Ml Inj SQ UD 14 units in am and 8 units in pm Ipratropium-Albuterol (Combivent Respimat) 1 Aer Aer 1 PUFF PO QID PRN for Wheezing Levofloxacin (Levaquin) 500 Mg Tab 500 MG PO DAILY PRN for copd rescue for 10 Days take until gone Montelukast Sod (Montelukast Sodium) 10 Mg Tab 10 MG PO DAILY Nitroglycerin (Nitrostat) 0.4 Mg Tab 0.4 MG UT UD PRN for Chest Pain Prednisone Tab (Prednisone) 10 Mg Tab MG PO UD PRN for copd rescue 4 tabs daily x 4 days 3 tabs daily x 4 days 2 tabs daily x 4 days 1 tab daily x 4 days take with food Simvastatin (Zocor) 20 Mg Tab 20 MG PO QPM, 0 Refills take with supper Tamsulosin Hcl (Flomax) 0.4 Mg Cap 0.4 MG PO DAILY Tramadol (Ultram) 50 Mg Tab 50 MG PO Q8H PRN for Pain, TAB Zolpidem Tartrate (Ambien) 5 Mg Tab 5-10 MG PO HS PRN for while on prednisone, TAB Discontinued Medications: Mometasone Furoate-Formoterol (Dulera 200/5 Mcg) 1 Aer Aer 2 PUFFS PO BID Admission Information HPI (per Admitting provider): He is a 76-year-old male with significant past medical history including moderate COPD on home oxygen, chronic kidney disease, diabetes, atrial fibrillation, benign prostatic hypertrophy, hyperlipidemia, hypertension, obstructive uropathy, Bronchiectasis and chronic stasis dermatitis, apparently has been complaining of shortness of breath with cough for a long time. The condition has been getting worse for the last 1 month and he was seen in the ER on May 11 with increasing shortness of breath and he was given nebulized bronchodilator and he was sent home with a possible bronchoscopy that will be done on this Sunday by Dr. Antunez. The condition got worse today and he is back. He does not have any fever or chills. He has cough productive of whitish phlegm. He does have increasing shortness of breath with chest tightness, no chest pain, no nausea, vomiting. No numbness or tingling in the extremities. He also complained to have increasing swelling of both the legs.ECHO in 12/13: EF 60%,small Pericardial effusion,Mild Pulmonary HTN and grade 1 Diastolic dysfunction. Physical Exam (per Admitting): GENERAL: On examination in the Emergency Room, still having moderate shortness of breath at rest. VITAL SIGNS: Temperature 36.8, pulse of 67, blood pressure 195/89, saturation 99% on 2 liters nasal cannula. HEENT: Unremarkable. NECK: Supple. No JVD, no bruit. CHEST: Has increased anteroposterior diameter, decreased breath sounds with wheezing, bibasilar crackles more on the right than on the left. HEART: S1, S2 regular. ABDOMEN: Soft, benign, nontender, no organomegaly. Bowel sounds present. EXTREMITIES: 1-2+ edema bilaterally. MUSCULOSKELETAL SYSTEM: No acute arthritis. CENTRAL NERVOUS SYSTEM: Alert, awake, oriented x3. Generally weak, but no focal neuro deficit. Hospital Course Patient is a 76 y/o male who presented with worsening SOB and cough. Patient was treated for a COPD exacerbation. Pulmonary was consulted. Patient was started on Levofloxacin, Methylprednisolone and nebulizers. Dulera was changed to Advair (Symbicort was not covered under patient's insurance). Given rapid improvement in symptoms, the decision was made not to pursue bronchoscopy. Methylprednisolone was transitioned to prednisone with instructions for a taper provided to patient. CXR was negative for pneumonia; Levofloxacin was not continued upon discharge per Pulmonary recommendations. Glycemic pharmacy was consulted for insulin therapy while inpatient. Patient was instructed to resume home dosing upon discharge. Losartan was increased to improve blood pressure control during hospitalization. Patient was continued on the remainder of his home medications with the exceptions noted above. Patient deemed stable for discharge with Family Medicine and Pulmonary follow up. PE on discharge: General- awake; alert; NAD Eyes- EOMI; no scleral icterus Neck- no stridor; trachea midline Lungs- CTA bilaterally; no wheezes/crackles Heart- RRR; no m/r/g Abdomen- soft; NTND; nBS Back- no gross abnormalities Extremities- trace LE edema; no deformity Neuro- no gross focal deficits Skin- no appreciable rash or bruising . Total time spent on discharge = This includes examination of the patient, discharge planning, medication reconciliation, and communication with other providers. Discharge Instructions Discharge Instructions Admission Reason for Admission: Copd Exacer.; Dm 1.5, Managed As Type 2; Pneumonia Discharge Discharge Diagnosis / Problem: COPD exacerbation Discharge Goals Goal(s): Improve disease control Activity Recommendations Activity Limitations: resume your previous activity . Instructions / Follow-Up Instructions / Follow-Up Please follow up with Family Medicine Dr. Monte on May 18 at 11:10am. Please keep your scheduled follow up appointment with Dr. Graves on June 22. Current Hospital Diet Patient's current hospital diet: Low Sodium Diet (2gm Na), Diabetes Type 2 Diet Discharge Diet Recommended Diet: Diabetes Type 2 Diet Pending Studies Studies pending at discharge: no Laboratory Results Hemoglobin A1c Test 05/16/16 05:20 Range/Units Estimated Average Glucose 192 mg/dl Hemoglobin A1c 8.3 H 4.5-5.6 % Medical Emergencies . Who to Call and When: Medical Emergencies: If at any time you feel your situation is an emergency, please call 911 immediately. . Non-Emergent Contact Non-Emergency issues call your: Primary Care Provider, [employer] Press Tender . . "Provider Documentation" section prepared by Roxana Perez. VTE Core Measure Inpt VTE Proph given/why not?: Enoxaparin (Lovenox)SQ Additional Copies To Kg Monte M.D.
[2016-05-16] MEDS ORDERED: ADVIN25050 INH (09:16)
[2016-05-16 09:31] VITALS: BP 153/90; PULSE 73; TEMP 36.5; O2SAT 92
[2016-05-16] MEDS ORDERED: LEVOFLOXACIN 750 MG TAB PO SCH (11:00)
[2016-05-16 13:21] VITALS: Ht 182.9 cm; Wt 91.4 kg
[2016-07-24] MEDS ORDERED: MOME200A INH (15:07)
[2016-07-24] MEDS ORDERED: IPRASOL4 INH (15:11)
[2016-07-24] MEDS ORDERED: LOSA1TAB38 PO (15:11)
[2016-07-24] MEDS ORDERED: VITAMIN D PO (15:13)
[2016-07-24] MEDS ORDERED: GLUCTAB7 PO (15:13)
[2016-10-17] MEDS ORDERED: CEFD300C3 PO (16:31)
[2016-10-17] MEDS ORDERED: GFNSR600 PO (16:31)
[2016-10-17] MEDS ORDERED: PRED10TA PO (16:31)
[2016-10-17] MEDS ORDERED: LPR25 PO (16:31)
[2016-10-17] MEDS ORDERED: XPNINS1255 INH (16:31)
[2016-10-17] MEDS ORDERED: ACET-1256 PO (16:31)
[2016-11-13] MEDS ORDERED: PRT/20 PO (10:35)
[2016-11-16] MEDS ORDERED: LEVO1TAB35 PO (09:19)
[2016-11-16] MEDS ORDERED: BENZ100C7 PO (09:19)
[2016-11-16] MEDS ORDERED: LNX125 PO (09:19)
[2016-11-16] MEDS ORDERED: ASPEC81 PO (09:19)
[2016-11-16] MEDS ORDERED: LPR25 PO (09:19)
[2016-12-13] MEDS ORDERED: METO50TA16 PO (13:04)
== END 2016-05-16 10:30 | disposition home or self-care (01) | DRG 190 ==
LOC: C.EDB 02:48 → C.4E 05:42 → EEVIPCON 05:42
PROVIDERS: ADMIT Internal Medicine; ATTEND Internal Medicine
DX: J44.1 Chronic obstructive pulmonary disease with (acute) exacerbation (principal); J18.9 Pneumonia, unspecified organism; Z77.090 Contact with and (suspected) exposure to asbestos; I48.2 Chronic atrial fibrillation; N18.3 Chronic kidney disease, stage 3 (moderate); I87.8 Other specified disorders of veins; I12.9 Hypertensive chronic kidney disease with stage 1 through stage 4 chronic kidney disease, or unspecified chronic kidney disease; E11.21 Type 2 diabetes mellitus with diabetic nephropathy; I48.0 Paroxysmal atrial fibrillation; Z82.49 Family history of ischemic heart disease and other diseases of the circulatory system; Z79.82 Long term (current) use of aspirin; N40.0 Benign prostatic hyperplasia without lower urinary tract symptoms; Z79.4 Long term (current) use of insulin; Z87.891 Personal history of nicotine dependence

== ENCOUNTER → 2016-06-22 | Outpatient (CLI) | payer BC ==
[~2016-06-22] MED LIST changes: +ACET-1256 PO; +ADVIN25050 INH; +ASPEC81 PO; +ATRINSX NEB; +BENZ100C7 PO; +CEFD300C3 PO; +CHOL2000 PO; +CLC100 PO; -CZR25 PO; +CZR50 PO; -DXY100 PO; +FINA5TAB4 PO; +FLNIN/ NAE; +GFNSR600 PO; +GLUCTAB7 PO; -INSDGI SC; +IPRASOL4 INH; +LEVO1TAB33 PO; +LEVO1TAB35 PO; +LNX125 PO; +LOSA1TAB38 PO; +LOSA50TA6 PO; +LPR25 PO; +LVMI SQ; +METO50TA16 PO; +MOME200A INH; -MOME200A PO; +MULT-506 PO; +NITR0.4S UT; +NVLGI/PEN SQ; +OXYC-57 PO; -POTA8CAP6 PO; +PRD10 PO; +PRED-301 PO; +PRED10TA PO; +PRT/20 PO; +RANI150T2 PO; +SPRIN/30 INH; +TIOT1SPR INH; +ULT50 PO; +VITAMIN D PO; +WARF2.5T8 PO; +XPNINS1255 INH; +ZOLP5TAB PO
== END | disposition home or self-care (01) ==
LOC: C.LAB1850 12:32
PROVIDERS: ATTEND Internal Medicine Pulmonary Disease
DX: J47.9 Bronchiectasis, uncomplicated (principal)

== ENCOUNTER 2016-06-29 19:12 | Emergency (ER) | payer BC, OTHER ==
[~2016-06-29] VITALS: Ht 182.9 cm; Wt 91.0 kg
[~2016-06-29 19:12] MED LIST changes: -ACET-1256 PO; -ASPEC81 PO; -ATRINSX NEB; -BENZ100C7 PO; -CEFD300C3 PO; -CHOL2000 PO; -CLC100 PO; -CZR50 PO; -FINA5TAB4 PO; -FLNIN/ NAE; -GFNSR600 PO; -GLUCTAB7 PO; -IPRASOL4 INH; -LEVO1TAB35 PO; -LNX125 PO; -LOSA1TAB38 PO; -LPR25 PO; -METO50TA16 PO; -MOME200A INH; -MULT-506 PO; -NITR0.4S UT; -NVLGI/PEN SQ; -OXYC-57 PO; -PRED-301 PO; -PRT/20 PO; -RANI150T2 PO; -SPRIN/30 INH; -TIOT1SPR INH; -ULT50 PO; -VITAMIN D PO; -WARF2.5T8 PO; -XPNINS1255 INH
[2016-06-29 19:16] VITALS: Ht 182.9 cm; Wt 91.0 kg
[2016-06-29 19:54] VITALS: O2SAT 90
[2016-06-29] MEDS ORDERED: ACET-1256 PO (19:59)
[2016-06-29] MEDS ORDERED: MULT-506 PO (20:01)
[2016-06-29] MEDS ORDERED: SODIUM CHLORIDE 0.9% 1000ML 1,000 ML IV STA (20:44)
[2016-06-29] MEDS ORDERED: ALBUT/IPRATROP 3MG/0.5MG NEB 3 ML VIAL INH STA (20:45)
[2016-06-29 21:15] LABS: BASO % 0.2 %; BASO ABS # 0.03 K/uL (0-0.2); COMPLETE YES; EOS % 0.5 %; HEMATOCRIT 31.3 % (42-52); IG% 0.3 %; LYMPH % 7.4 %; LYMPH ABS # 0.98 K/uL (1.2-3.4); MEAN CELL VOLUME 85.5 fL (80-100); MEAN CORPUSCULAR HEMOGLOBIN 28.7 pg (25-34); MEAN CORPUSCULAR HGB CONC 33.5 g/dl (32-36); MEAN PLATELET VOLUME 10.1 fL (7.4-10.4); MONO % 8.3 %; NEUT % 83.3 %; PLATELET COUNT 228 K/uL (130-400); RED BLOOD COUNT 3.66 M/uL (4.7-6.1); WHITE BLOOD COUNT 13.27 K/uL (4.8-10.8)
--- NOTE | 2016-06-29 21:21 | DIAGNOSTIC IMAGING REPORT ---
SINGLE VIEW CHEST CLINICAL HISTORY: Fever. Sepsis. Cough and weakness. FINDINGS: An AP, portable, upright chest radiograph is compared to study dated 05/15/2016 and correlated with chest CT dated 12/03/2015. The examination is degraded by portable technique, apical lordotic positioning, and patient rotation. The heart is enlarged and there is atherosclerotic calcification of the thoracic aorta. There is pulmonary vascular congestion. Emphysema and chronic interstitial thickening is unchanged. There is patchy airspace consolidation at the right lung base. A small right pleural effusion is suspected. Calcified pleural plaques are similar to previous. Left basilar atelectasis is noted. Apical scarring is observed. There is no pneumothorax. The skeletal structures are osteopenic. The bony thorax is grossly intact. IMPRESSION: 1. There is patchy airspace consolidation at the right lung base and a trace right pleural effusion. The appearance is typical for pneumonia. Radiographic follow-up to resolution is recommended. 2. Cardiomegaly and pulmonary vascular congestion. 3. Emphysema and additional chronic parenchymal changes as above. Electronically signed by: Arturo Charles M.D. 06/29/2016 9:20 PM Dictated Date/Time: 06/29/2016 9:17 PM
[2016-06-29 21:27] LABS: INR 1.1 (0.9-1.1); PARTIAL THROMBOPLASTIN RATIO 1.1; PROTHROMBIN TIME (PATIENT) 11.4 SECONDS (9.0-12.0)
[2016-06-29 21:33] LABS: ALT/SGPT 14 U/L (12-78); BLOOD UREA NITROGEN 37 mg/dl (7-18); BUN/CREATININE RATIO 19.4 (10-20); CALCIUM 8.6 mg/dl (8.5-10.1); CARBON DIOXIDE 24 mmol/L (21-32); CHLORIDE 104 mmol/L (98-107); GLUCOSE 158 mg/dl (70-99); POTASSIUM 4.4 mmol/L (3.5-5.1); SODIUM 138 mmol/L (136-145)
[2016-06-29 21:38] LABS: ALKALINE PHOSPHATASE 83 U/L (45-117); AST/SGOT 11 U/L (15-37); CKMB/CK RATIO 1.6 (0-3.0)
[2016-06-29 22:24] VITALS: TEMP 37.8
[2016-06-29] MEDS ORDERED: IPRASOL4 INH (23:07)
--- NOTE | 2016-06-29 23:10 | EMERGENCY ROOM VISIT NOTE ---
History Report prepared by Tamiko: Alejandro Reynolds Under the Supervision of: Dr. Emanuel Lozano D.O. First contact with patient: 20:39 Chief Complaint: FEVER Stated Complaint: FEVER, COUGH, WEAKNESS History of Present Illness The patient is a 76 year old male who presents to the Emergency Room with complaints of persistent weakness beginning about 3 weeks ago. He notes he has developed a productive cough recently, and has had a fever since yesterday, the highest temperature was 99.2. He reports starting Levaquin 500 mg today for the fever and has tried taking Tylenol for the fever. The patient reports having a history of COPD and diabetes. He notes he has seen multiple doctors since the onset of his symptoms. The patient notes he has an irregular heart rate that occasionally increases up into the 150s. He uses supplemental oxygen at home. The patient notes having difficulty sleeping at night. Source of History: patient Onset: about 3 weeks ago Position: other (global) Quality: other (weakess) Timing: other (persistent) Associated Symptoms: + cough, + fevers Review of Systems See HPI for pertinent positives & negatives. A total of 10 systems reviewed and were otherwise negative. Past Medical & Surgical Medical Problems: (1) Asbestos exposure (2) BPH (benign prostatic hypertrophy) (3) CKD (chronic kidney disease) stage 3, GFR 30-59 ml/min (4) COPD (chronic obstructive pulmonary disease) (5) Diabetes type I (6) Dyslipidemia (7) History of basal cell carcinoma (8) Hypertension (9) Paroxysmal atrial fibrillation Surgical Problems: (1) H/O nasal polypectomy (2) History of inguinal hernia repair (3) History of surgery of head Family History Cancer MOTHER Diabetes mellitus BROTHER Gallbladder disease Heart disease Hypertension Kidney disease Kidney stones Social History Smoking Status: Never Smoker Alcohol Use: none Marital Status: Housing Status: lives with significant other Occupation Status: retired Current/Historical Medications Scheduled Aspirin (Aspirin 81), 81 MG PO DAILY Fluticasone Prop/Salmeterol (Advair Diskus 250-50 Mcg/Dose), 1 PUFF INH BID Fluticasone Propionate (Nasal) (Flonase), 2 SPRY ALDEN DAILY Furosemide (Lasix), 20 MG PO Q2D Insulin Aspart (Novolog), 0 SC AMHS Insulin Detemir (Levemir), SQ UD Ipratropium-Albuterol (Duoneb), 1 TREATMENT INH Q4H Losartan Potassium (Cozaar), 100 MG PO DAILY Multivitamin (Multivitamin), 1 TAB PO DAILY Simvastatin (Zocor), 20 MG PO QPM Tamsulosin Hcl (Flomax), 0.4 MG PO DAILY Scheduled PRN Acetaminophen (Tylenol), 1,000 MG PO DIRECTED PRN for Fever Ipratropium-Albuterol (Combivent Respimat), 1 PUFF PO QID PRN for Wheezing Levofloxacin (Levaquin), 500 MG PO DAILY PRN for copd rescue Nitroglycerin (Nitrostat), 0.4 MG UT UD PRN for Chest Pain Prednisone Tab (Prednisone), MG PO UD PRN for copd rescue Zolpidem Tartrate (Ambien), 5-10 MG PO HS PRN for while on prednisone Allergies Coded Allergies: Diltiazem (Verified Allergy, Unknown, RASH, 06/29/16) Propoxyphene (Verified Allergy, Unknown, _, 06/29/16) Aspirin (Verified Adverse Reaction, Unknown, GI SYMPTOMS, 06/29/16) Lisinopril (Verified Adverse Reaction, Unknown, cough, 06/29/16) Physical Exam Vital Signs Date Time Temp Pulse Resp B/P Pulse Ox O2 Delivery O2 Flow Rate FiO2 06/29/16 23:06 73 06/29/16 22:24 37.8 77 20 126/58 94 Nasal Cannula 2.0 06/29/16 21:21 77 20 133/67 96 Nasal Cannula 2.0 06/29/16 19:59 87 06/29/16 19:54 Nasal Cannula 2.0 06/29/16 19:54 85 20 141/69 95 Nasal Cannula 2.0 06/29/16 19:54 90 Room Air 06/29/16 19:16 36.7 92 22 132/58 91 Room Air Physical Exam CONSTITUTIONAL/VITAL SIGNS: Reviewed / noted above. GENERAL: Non-toxic in appearance. INTEGUMENTARY: Warm, dry, and [place]. HEAD: Normocephalic. EYES: without scleral icterus or trauma. ENT/OROPHARYNX: clear and moist. LYMPHADENOPATHY/NECK: Is supple without lymphadenopathy or meningismus. RESPIRATORY: Mild scattered wheezing on expiration; occasional cough; productive yellow sputum. CARDIOVASCULAR: Regular rate and rhythm. GI/ABDOMEN: Soft and nontender. No organomegaly or pulsatile mass. No rebound or guarding. Normal bowel sounds. EXTREMITIES: Warm and well perfused. BACK: No CVA tenderness. NEUROLOGICAL: Intact without focal deficits. PSYCHIATRIC: normal affect. MUSCULOSKELETAL: Normally developed with good muscle tone. Medical Decision & Procedures ER Provider Diagnostic Interpretation: Radiology results are stated below per my review and radiologist interpretation: SINGLE VIEW CHEST FINDINGS: An AP, portable, upright chest radiograph is compared to study dated 05/15/2016 and correlated with chest CT dated 12/03/2015. The examination is degraded by portable technique, apical lordotic positioning, and patient rotation. The heart is enlarged and there is atherosclerotic calcification of the thoracic aorta. There is pulmonary vascular congestion. Emphysema and chronic interstitial thickening is unchanged. There is patchy airspace consolidation at the right lung base. A small right pleural effusion is suspected. Calcified pleural plaques are similar to previous. Left basilar atelectasis is noted. Apical scarring is observed. There is no pneumothorax. The skeletal structures are osteopenic. The bony thorax is grossly intact. IMPRESSION: 1. There is patchy airspace consolidation at the right lung base and a trace right pleural effusion. The appearance is typical for pneumonia. Radiographic follow-up to resolution is recommended. 2. Cardiomegaly and pulmonary vascular congestion. 3. Emphysema and additional chronic parenchymal changes as above. Electronically signed by: Arturo Charles M.D. 06/29/2016 9:20 PM Dictated Date/Time: 06/29/2016 9:17 PM Laboratory Results 06/29/16 20:55 Red Blood Count 3.66, Mean Corpuscular Volume 85.5, Mean Corpuscular Hemoglobin 28.7, Mean Corpuscular Hemoglobin Concent 33.5, Mean Platelet Volume 10.1, Neutrophils (%) (Auto) 83.3, Lymphocytes (%) (Auto) 7.4, Monocytes (%) (Auto) 8.3, Eosinophils (%) (Auto) 0.5, Basophils (%) (Auto) 0.2, Neutrophils # (Auto) 11.06, Lymphocytes # (Auto) 0.98, Monocytes # (Auto) 1.10, Eosinophils # (Auto) 0.06, Basophils # (Auto) 0.03 06/29/16 20:55 Test 06/29/16 20:55 06/29/16 21:45 White Blood Count 13.27 K/uL (4.8-10.8) Red Blood Count 3.66 M/uL (4.7-6.1) Hemoglobin 10.5 g/dL (14.0-18.0) Hematocrit 31.3 % (42-52) Mean Corpuscular Volume 85.5 fL (80-100) Mean Corpuscular Hemoglobin 28.7 pg (25-34) Mean Corpuscular Hemoglobin Concent 33.5 g/dl (32-36) Platelet Count 228 K/uL (130-400) Mean Platelet Volume 10.1 fL (7.4-10.4) Neutrophils (%) (Auto) 83.3 % Lymphocytes (%) (Auto) 7.4 % Monocytes (%) (Auto) 8.3 % Eosinophils (%) (Auto) 0.5 % Basophils (%) (Auto) 0.2 % Neutrophils # (Auto) 11.06 K/uL (1.4-6.5) Lymphocytes # (Auto) 0.98 K/uL (1.2-3.4) Monocytes # (Auto) 1.10 K/uL (0.11-0.59) Eosinophils # (Auto) 0.06 K/uL (0-0.5) Basophils # (Auto) 0.03 K/uL (0-0.2) RDW Standard Deviation 42.6 fL (36.4-46.3) RDW Coefficient of Variation 13.6 % (11.5-14.5) Immature Granulocyte % (Auto) 0.3 % Immature Granulocyte # (Auto) 0.04 K/uL (0.00-0.02) Prothrombin Time 11.4 SECONDS (9.0-12.0) Prothromb Time International Ratio 1.1 (0.9-1.1) Activated Partial Thromboplast Time 29.8 SECONDS (21.0-31.0) Partial Thromboplastin Ratio 1.1 Anion Gap 10.0 mmol/L (3-11) Est Creatinine Clear Calc Drug Dose 35.2 ml/min Estimated GFR () 38.3 Estimated GFR (Non- 33.0 BUN/Creatinine Ratio 19.4 (10-20) Calcium Level 8.6 mg/dl (8.5-10.1) Total Bilirubin 0.6 mg/dl (0.2-1) Direct Bilirubin 0.2 mg/dl (0-0.2) Aspartate Amino Transf (AST/SGOT) 11 U/L (15-37) Alanine Aminotransferase (ALT/SGPT) 14 U/L (12-78) Alkaline Phosphatase 83 U/L (45-117) Total Creatine Kinase 103 U/L (39-308) Creatine Kinase MB 1.6 ng/ml (0.5-3.6) Creatine Kinase MB Ratio 1.6 (0-3.0) Troponin I < 0.015 ng/ml (0-0.045) Total Protein 6.7 gm/dl (6.4-8.2) Albumin 2.7 gm/dl (3.4-5.0) Lipase 77 U/L (73-393) Influenza Type A Antigen Neg for Influ A (NEG) Influenza Type B Antigen Neg for Influ B (NEG) Laboratory results as stated above per my review. Medications Administered Medications (Trade) Dose Ordered Sig/Bertha Route Start Time Stop Time Status Last Admin Dose Admin Sodium Chloride (Nss 1000ml) 1,000 ml @ 999 mls/hr Q1H1M STAT IV 06/29/16 20:44 06/29/16 21:44 DC 06/29/16 21:00 999 MLS/HR Albuterol/ Ipratropium (Duoneb) 3 ml NOW STAT INH 06/29/16 20:45 06/29/16 20:46 DC 06/29/16 21:00 3 ML ECG Indication: other (fever) Rate (beats per minute): 78 Rhythm: sinus rhythm Findings: no acute ischemic change, no ectopy ED Course 2038: Previous medical records were reviewed. The patient was evaluated in room B12B. A complete history and physical examination was performed. 2043: Ordered NSS 1,000 ml @ 999 mls/hr IV. 2044: Ordered Duoneb 3 ml INH. 0: On reevaluation, the patient is doing well. I discussed the results and findings with the patient. He verbalized agreement of the treatment plan. The patient was discharged home. Medical Decision Differential includes viral illness, influenza, streptococcal pharyngitis, meningitis, pneumonia, sinusitis, UTI, pyelonephritis, otitis media. This is a 68-year-old male who presents to the ED with a chief complaint of a cough for the patient has had the cough for the past 3 weeks. He has started to cough up a yellow sputum over the past several days. He was started on Levaquin today. His first dose was at 5 PM. He came to the ED for evaluation tonight. He does report decreased energy. EKG shows a sinus rhythm. White blood cell count was 13.2. BUN is 37 and creatinine is 1.9. This is near baseline. Troponin is negative. Flu is negative. X-ray shows a right lung pneumonia. The patient is not hypoxic. He does not have any respiratory distress. He was given a DuoNeb treatment here. This helped. He was also given 1 L normal saline IV. He was feeling better. He is felt to be stable for discharge. A prescription for albuterol was provided as the patient has a nebulizer at home. He is felt to be stable for discharge. Impression Primary Impression: Pneumonia Scribe Attestation The scribe's documentation has been prepared under my direction and personally reviewed by me in its entirety. I confirm that the note above accurately reflects all work, treatment, procedures, and medical decision making performed by me. Departure Information Dispostion Home / Self-Care Prescriptions Ipratropium-Albuterol (DUONEB) 3 Ml Nebu 1 TREATMENT INH Q4H for Wheezing, #1 BOX Prov: Emanuel Lozano D.O. 06/29/16 Referrals Kg Monte M.D. (PCP) Patient Instructions ED Pneumonia, My [facility] Additional Instructions Continue Levaquin. Use nebulizer every 2-4 hours as needed for wheezing and coughing. Follow-up with your doctor for recheck. Return for worsening or new concerns.
[2016-06-29 23:26] VITALS: BP 141/67; PULSE 77; O2SAT 94
[2016-07-24] MEDS ORDERED: MOME200A INH (15:07)
[2016-07-24] MEDS ORDERED: LOSA1TAB38 PO (15:11)
[2016-07-24] MEDS ORDERED: IPRASOL4 INH (15:11)
[2016-07-24] MEDS ORDERED: VITAMIN D PO (15:13)
[2016-07-24] MEDS ORDERED: GLUCTAB7 PO (15:13)
[2016-10-17] MEDS ORDERED: XPNINS1255 INH (16:31)
[2016-10-17] MEDS ORDERED: ACET-1256 PO (16:31)
[2016-10-17] MEDS ORDERED: LPR25 PO (16:31)
[2016-10-17] MEDS ORDERED: PRED10TA PO (16:31)
[2016-10-17] MEDS ORDERED: GFNSR600 PO (16:31)
[2016-10-17] MEDS ORDERED: CEFD300C3 PO (16:31)
[2016-11-13] MEDS ORDERED: PRT/20 PO (10:35)
[2016-11-16] MEDS ORDERED: ASPEC81 PO (09:19)
[2016-11-16] MEDS ORDERED: LNX125 PO (09:19)
[2016-11-16] MEDS ORDERED: BENZ100C7 PO (09:19)
[2016-11-16] MEDS ORDERED: LEVO1TAB35 PO (09:19)
[2016-11-16] MEDS ORDERED: LPR25 PO (09:19)
[2016-12-13] MEDS ORDERED: METO50TA16 PO (13:04)
== END 2016-06-29 23:30 | disposition home or self-care (01) ==
LOC: C.EDB 19:13
DX: J18.9 Pneumonia, unspecified organism (principal); R50.9 Fever, unspecified; J44.9 Chronic obstructive pulmonary disease, unspecified; I12.9 Hypertensive chronic kidney disease with stage 1 through stage 4 chronic kidney disease, or unspecified chronic kidney disease; N18.3 Chronic kidney disease, stage 3 (moderate); E11.9 Type 2 diabetes mellitus without complications; Z79.4 Long term (current) use of insulin; R53.1 Weakness; R05 Cough

== ENCOUNTER → 2016-07-06 | Outpatient (CLI) | payer BC, OTHER ==
[~2016-07-06] MED LIST changes: +ACET-1256 PO; +ASPEC81 PO; +ATRINSX NEB; +BENZ100C7 PO; +CEFD300C3 PO; +CHOL2000 PO; +CLC100 PO; +CZR50 PO; +FINA5TAB4 PO; +FLNIN/ NAE; +GFNSR600 PO; +GLUCTAB7 PO; +IPRASOL4 INH; +LEVO1TAB35 PO; +LNX125 PO; +LOSA1TAB38 PO; +LPR25 PO; +METO50TA16 PO; +MOME200A INH; +MULT-506 PO; +NITR0.4S UT; +NVLGI/PEN SQ; +OXYC-57 PO; -PRD10 PO; +PRED-301 PO; +PRT/20 PO; +RANI150T2 PO; -SNG10 PO; +SPRIN/30 INH; +TIOT1SPR INH; -TRAM-10 PO; +ULT50 PO; +VITAMIN D PO; +WARF2.5T8 PO; +XPNINS1255 INH
--- NOTE | 2016-07-10 10:21 | PULMONARY FUNCTION TEST ---
Spirometry: Spirometry suggests moderately severe obstructive ventilatory disease with no reversibility noted. Lung volumes: Mildly decreased lung volumes with total lung capacity of 78%. Diffusion capacity: Within normal limits. This is based on ATS criteria.
== END | disposition home or self-care (01) ==
LOC: C.RC 11:05
PROVIDERS: ATTEND Internal Medicine Critical Care Medicine
DX: J44.9 Chronic obstructive pulmonary disease, unspecified (principal); J92.0 Pleural plaque with presence of asbestos; R93.8 Abnormal findings on diagnostic imaging of other specified body structures

== ENCOUNTER 2016-08-09 05:23 | Inpatient (IN) | payer BC, OTHER ==
[2016-07-24 15:17] VITALS: BMI 28.0
[2016-08-09] VITALS (8 sets, daily range): BP systolic 122–178; BP diastolic 64–84; PULSE 66–139; TEMP 36.1–36.9; O2SAT 93–100; BMI 28.0
[~2016-08-09] VITALS: Ht 182.9 cm; Wt 93.2 kg
[~2016-08-09 05:23] MED LIST changes: -ADVIN25050 INH; -ASPEC81 PO; -ATRINSX NEB; -BENZ100C7 PO; -CEFD300C3 PO; -CHOL2000 PO; -CLC100 PO; -CZR50 PO; -FINA5TAB4 PO; -FLNIN/ NAE; -GFNSR600 PO; -LEVO1TAB33 PO; -LEVO1TAB35 PO; -LNX125 PO; -LOSA50TA6 PO; -LPR25 PO; -METO50TA16 PO; -NITR0.4S UT; -NTRGSL/4 UT; -NVLGI/PEN SQ; -OXYC-57 PO; -PRED-301 PO; -PRED10TA PO; -PRT/20 PO; -RANI150T2 PO; -SPRIN/30 INH; -TIOT1SPR INH; -ULT50 PO; -WARF2.5T8 PO; -XPNINS1255 INH
[2016-08-09] MEDS ORDERED: LACTATED RINGER'S 500 ML IV SCH (06:00)
[2016-08-09] MEDS ORDERED: LACTATED RINGER'S 1000ML IV SCH (06:00)
--- NOTE | 2016-08-09 07:01 | History & Physical Bridge Note ---
H&P Re-Evaluation Bridge Note: I have examined the patient, reviewed the History & Physical and in the interval since the performance of the History & Physical I have noted the following changes of clinical significance: No changes noted
[2016-08-09] MEDS ORDERED: BUPIVACAINE LIPOSOME 1/3% 266 MG/20 ML VIAL INFIL ONE (07:07)
[2016-08-09] MEDS ORDERED: PROPOFOL IV EMULSION 10 MG/ML 20 ML VIAL IV ONE (07:13)
[2016-08-09] MEDS ORDERED: GLYCOPYRROLATE INJ 0.2 MG/ML VIAL ONE (07:13)
[2016-08-09] MEDS ORDERED: ONDANSETRON INJ 2 MG/ML 2 ML VIAL ONE (07:13)
[2016-08-09] MEDS ORDERED: LIDOCAINE HCL 2% 2 ML VIAL (20MG/ML) ONE (07:13)
[2016-08-09] MEDS ORDERED: NEOSTIGMINE METHYLSULFATE 5 MG/5 ML SYR ONE (07:13)
[2016-08-09] MEDS ORDERED: DEXAMETHASONE SOD INJ 4 MG/ML VIAL ONE (07:13)
[2016-08-09] MEDS ORDERED: ROCURONIUM BROMIDE 10 MG/ML 5 ML VIAL ONE ×2 (07:13→08:36)
[2016-08-09] MEDS ORDERED: FENTANYL CITRATE INJ 50 MCG/1 ML 2 ML VIAL ONE ×3 (07:14→12:08)
[2016-08-09] MEDS ORDERED: MIDAZOLAM HCL 1 MG/ML 2ML VIAL ONE (07:14)
--- NOTE | 2016-08-09 07:41 | DIAGNOSTIC IMAGING REPORT ---
SINGLE VIEW CHEST CLINICAL HISTORY: Preoperative examination. FINDINGS: An AP, portable, upright chest radiograph is compared to study dated 06/29/2016 and correlated with chest CT dated 12/03/2015. The examination is degraded by portable technique, apical lordotic positioning, and patient rotation. The heart is enlarged and there is atherosclerotic calcification of the thoracic aorta. There is prominence of the pulmonary vasculature. Emphysema and chronic interstitial thickening is unchanged. There is patchy airspace consolidation present at both lung bases. Small pleural effusions are suspected. Calcified pleural plaques are similar to previous. Apical scarring is observed. There is no pneumothorax. The skeletal structures are osteopenic. The bony thorax is grossly intact. IMPRESSION: 1. There is patchy airspace consolidation present at both lung bases with trace pleural effusions suspected. Correlate clinically for evidence of an infectious/inflammatory pneumonitis. Radiographic follow-up to resolution is recommended. 2. Cardiomegaly with prominence of the central pulmonary vessels. Cortical clinically for evidence of mild congestive failure. 3. Emphysema and additional chronic parenchymal changes as above. Electronically signed by: Arturo Charles M.D. 08/09/2016 7:39 AM Dictated Date/Time: 08/09/2016 7:37 AM
[2016-08-09] MEDS ORDERED: CEFAZOLIN SOD 1 GM VIAL ONE (08:26)
[2016-08-09] MEDS ORDERED: EpHEDrine SULFATE INJ 50 MG/ML AMP IV PRN (09:00)
[2016-08-09] MEDS ORDERED: HYDROmorphone INJ 1 MG/ML SYR IV PRN (09:00)
[2016-08-09] MEDS ORDERED: LABETALOL HCL IV 5 MG/ML 20ML IV PRN (09:00)
[2016-08-09] MEDS ORDERED: FENTANYL CITRATE INJ 50 MCG/1 ML 2 ML VIAL IV PRN (09:00)
[2016-08-09] MEDS ORDERED: ATROPINE SULFATE 0.1 MG/ML 5ML SYR IV PRN (09:00)
[2016-08-09] MEDS ORDERED: ONDANSETRON INJ 2 MG/ML 2 ML VIAL IV PRN ×2 (09:00→12:45)
[2016-08-09] MEDS ORDERED: MEPERIDINE HCL 25 MG/ML CARP IV PRN (09:00)
[2016-08-09] MEDS: SODIUM CHLORIDE 0.9% PF 50 ML VIAL ONE ×2 (10:13→10:40)
--- NOTE | 2016-08-09 11:59 | OPERATIVE REPORT ---
DATE OF OPERATION: 08/09/2016 PREOPERATIVE DIAGNOSES: 1. Pleural plaques. 2. Pulmonary infiltrates. POSTOPERATIVE DIAGNOSES: same. PROCEDURE: 1. Robot-assisted thoracoscopic surgery with marked lysis of adhesions (pneumolysis). 2. Wedge biopsy of right lower lobe. 3. Biopsy of pleural plaques. 4. Repair air leak. SURGEON: Dr. Lindsey. FINANCIAL ECONOMIST: JOE Singleton. ANESTHESIA: General anesthesia with endotracheal intubation with double-lumen tube. SPECIFICS OF PROCEDURE: This is an elderly male who has had extensive asbestos exposure. He had pleural plaques which were thickened. He also had increasing respiratory insufficiency and had infiltrates in his right lower lobe. After long discussion, we elected to proceed with a robotic-assisted thorascopic surgery. On 08/09/2016, the patient underwent an uncomplicated robot-assisted thoracoscopic surgery. He had marked adhesions. We took these down without a problem, but it was tedious.. We had negligible blood loss. There was an air leak at the conclusion of the case requiring repair. I biopsied multiple pleural plaques as well as wedge resection in the right lower lobe and right upper lobe. He tolerated it well. PROCEDURE IN DETAIL: The patient was brought to the operating room and laid in supine position. General anesthesia induced and endotracheal intubation was performed with a double-lumen tube. The patient was placed in right lateral decubitus position. Four separate thoracoscopy incisions were created, one anterior, one in the mid axillary line, and one posteriorly. We also placed an assistant auto center manager port between the anterior mid axillary line port. With the use of 8.5 mm ports and a 12 mm port, we got into the pleural cavity and could see there were marked adhesions. These were taken down sharply using the robot and this came down quite nicely. We lysed these adhesions. We took it off the diaphragm which was a bit more difficult. I removed a large portion of calcified plaque and other parietal pleural biopsies. I saw no evidence of any soft tissue growth. Wedge resection was done of a portion of the right lower lobe. This was delivered off the field. Chest tube was placed to the mid axillary line. Incision sutured in place with heavy silk suture. We noted a significant air leak at the conclusion of the case. We identified this at the apex and wedged out another small portion of the lung. No further leaking was noted. Muscle layers were closed with 0 Vicryl and 4-0 Monocryl was used in running subcuticular fashion to approximate the wound edges. The patient tolerated it well. I attest to the content of the Intraoperative Record and any orders documented therein. Any exceptions are noted below. MTDD
[2016-08-09] MEDS ORDERED: EpHEDrine SULFATE 50MG/5ML SYR ONE (12:08)
[2016-08-09] MEDS ORDERED: ZOLPIDEM TARTRATE 5 MG TAB PO PRN (12:45)
[2016-08-09] MEDS ORDERED: OXYCODONE HCL IR 5 MG TAB (IMMEDIATE RELEASE) PO PRN (12:45)
[2016-08-09] MEDS ORDERED: MoRPHine SULFATE 2 MG/ML CARP IV PRN ×2 (12:45→16:15)
[2016-08-09] MEDS ORDERED: KETOROLAC TROMETHAMINE 15 MG/ML VIAL IV. SCH (12:45)
[2016-08-09] MEDS ORDERED: GLUCOSE 40% GEL 15 GM TUBE PO PRN (13:15)
[2016-08-09] MEDS ORDERED: GLUCOSE 10 TABS/TUBE PO PRN (13:15)
[2016-08-09] MEDS ORDERED: GLUCAGON FOR INJ 1 MG VIAL SQ PRN (13:15)
[2016-08-09] MEDS ORDERED: DEXTROSE 50% 50 ML SYR IV PRN (13:15)
--- NOTE | 2016-08-09 13:18 | DIAGNOSTIC IMAGING REPORT ---
CHEST ONE VIEW PORTABLE HISTORY: Status post pleural biopsy. COMPARISON: Chest 08/09/2016. FINDINGS: Right-sided chest tube terminating within the lateral aspect of the right upper lung zone. Small right-sided pneumothorax. Peripheral scarlike densities within the right lung base persist. Emphysema. Right-sided calcified pleural plaques. The heart remains mildly enlarged. Linear densities the left lung base favor subsegmental atelectasis. There is mild diffuse interstitial thickening. Hazy appearance to the right perihilar location. IMPRESSION: 1. Small right pneumothorax. Right-sided chest tube appears to be in good position. 2. Right perihilar hazy airspace opacity. This could be due to the recent postoperative change. Continued follow-up is recommended. 3. Diffuse interstitial thickening. Electronically signed by: Cali Sams M.D. 08/09/2016 1:15 PM Dictated Date/Time: 08/09/2016 1:13 PM
--- NOTE | 2016-08-09 13:35 | Anesthesiology Progress Note ---
Anesthesia Post Op Note Date & Time Aug 09, 2016 at 13:34 Vital Signs Pain Intensity: 0 Vital Signs Past 12 Hours Date Time Temp Pulse Resp B/P Pulse Ox O2 Delivery O2 Flow Rate FiO2 08/09/16 13:15 56 16 162/63 100 Mask 5 08/09/16 13:05 56 16 175/73 100 Mask 10 08/09/16 12:55 60 18 122/64 100 Mask 10 08/09/16 12:49 36.0 74 18 149/62 100 Mask 10 08/09/16 06:34 36.9 66 20 167/77 95 Room Air Notes Mental Status: alert / awake / arousable, participated in evaluation Pt Amnestic to Procedure: Yes Nausea / Vomiting: adequately controlled Pain: adequately controlled Airway Patency, RR, SpO2: stable & adequate BP & HR: stable & adequate Hydration State: stable & adequate Anesthetic Complications: no major complications apparent
[2016-08-09] MEDS ORDERED: IPRATROPIUM BROMIDE/ALBUTEROL respimat INH INH PRN (17:00)
[2016-08-09] MEDS: SODIUM CHLORIDE 0.9% 1000ML 1,000 ML IV SCH (17:20)
[2016-08-09] MEDS: ACETAMINOPHEN IV 1,000 MG in EMPTY BAG 0 ML IV SCH (17:59)
[2016-08-09] MEDS: INSULIN ASPART 100 UNITS/ML 3 ML PEN SC SCH ×2 (18:01→22:22)
[2016-08-09] MEDS ORDERED: INSULIN DETEMIR FLEXPEN/FLEX TOUCH 100 UNITS/ML 3ML SC SCH (21:00)
[2016-08-09] MEDS ORDERED: SIMVASTATIN 20 MG TAB PO SCH (21:00)
[2016-08-09] MEDS ORDERED: TAMSULOSIN HCL 0.4 MG CAP PO SCH (21:00)
[2016-08-09] MEDS: DOCUSATE SODIUM 100 MG CAP PO SCH (21:30)
[2016-08-09] MEDS: METOCLOPRAMIDE HCL INJ 5 MG/ML 2 ML VIAL IV. SCH (21:31)
[2016-08-09] MEDS: CEFAZOLIN IV 2,000 MG in DEXTROSE 5% 50ML 100 ML IV SCH (21:33)
[2016-08-09] MEDS ORDERED: INSULIN REGULAR 10 UNITS in SYRINGE 9.9 ML IV SCH (21:40)
[2016-08-09] MEDS ORDERED: PHARMACY GLYCEMIC MGMT CONSULT PRN (21:45)
--- NOTE | 2016-08-09 22:20 | Medical Consult ---
Consultation Date of Consultation: Aug 09, 2016. Attending Physician: Stewart Lindsey MD Reason for Consultation: Postop Medical Management, Hyperglycemia History of Present Illness Patient seen and examined. 76 year old male with PMHx of COPD, HLd, CKD stage 3, IDDM, HTN, PAF and other problems listed below is seen in consultation at the request of Dr. Lindsey for hyperglycemia following Thoracoscopy. Patient reports feeling well. He denies any complaints including dizziness, blurry vision, polyuria, fevers, chills, URI symptoms, chest pain, SOB, nausea, vomiting, diarrhea, dysuria calf pain and edema. He reports his BSGs at home can be as high as 300. When patient arrived this AM BSG was in the 60s. He has been asymptomatic throughout the day. Past Medical/Surgical History Medical Problems: (1) Asbestos exposure Status: Chronic (2) BPH (benign prostatic hypertrophy) Status: Chronic (3) CKD (chronic kidney disease) stage 3, GFR 30-59 ml/min Status: Chronic (4) COPD (chronic obstructive pulmonary disease) Permanent Comment: moderate Status: Chronic (5) Diabetes type I Status: Chronic (6) Dyslipidemia Status: Chronic (7) History of basal cell carcinoma Status: Chronic (8) Hypertension Status: Chronic (9) Paroxysmal atrial fibrillation Status: Chronic Surgical Problems: (1) H/O nasal polypectomy Status: Resolved (2) History of inguinal hernia repair Status: Resolved (3) History of surgery of head Permanent Comment: correct skull abnormality- left temporoparietal ; 1992 Status: Resolved Family History Cancer MOTHER Diabetes mellitus BROTHER Gallbladder disease Heart disease Hypertension Kidney disease Kidney stones Social History Smoking Status: Former Smoker Alcohol Use: occasionally Marital Status: Housing Status: lives with significant other Occupation Status: retired Allergies Coded Allergies: Diltiazem (Verified Allergy, Mild, RASH, 08/09/16) Aspirin (Verified Adverse Reaction, Mild, GI SYMPTOMS, 08/09/16) Lisinopril (Verified Adverse Reaction, Unknown, cough, 08/09/16) Propoxyphene (Verified Adverse Reaction, Unknown, STOMACH UPSET DIARRHEA, 08/09/16) Current Inpatient Medications Current Inpatient Medications Medications (Trade) Dose Ordered Sig/Bertha Route Start Time Stop Time Status Last Admin Dose Admin Lactated Ringer's 1,000 ml @ 15 mls/hr Q24H IV 08/09/16 06:00 08/10/16 05:59 08/09/16 06:45 15 MLS/HR Acetaminophen/ Empty Bag (Ofirmev Iv/ Empty Iv Bag 100ml) 100 ml @ 400 mls/hr Q8H IV 08/09/16 18:00 09/08/16 17:59 08/09/16 17:59 400 MLS/HR Aspirin (Ecotrin Tab) 81 mg QAM PO 08/10/16 09:00 09/09/16 08:59 Fluticasone Propionate (Flonase Nasal [place]) 2 sprays QAM [place] 08/10/16 09:00 09/09/16 08:59 Albuterol/ Ipratropium (Combivent Respimat Inh) 1 puffs QID PRN INH 08/09/16 17:00 09/08/16 16:59 Losartan Potassium (coZAAR TAB) 100 mg QAM PO 08/10/16 09:00 09/09/16 08:59 Multivitamins (Multivitamin Tab) 1 tab QAM PO 08/10/16 09:00 09/09/16 08:59 Simvastatin (Zocor Tab) 20 mg QPM PO 08/09/16 21:00 09/08/16 20:59 Tamsulosin HCl (Flomax Cap) 0.4 mg HS PO 08/09/16 21:00 09/08/16 20:59 Zolpidem Tartrate (Ambien Tab) 5 mg HS PRN PO 08/09/16 12:45 09/08/16 12:44 Miscellaneous Information (Order Awaiting Action) 1 ea QS N/A 08/10/16 00:00 09/09/16 00:00 Cholecalciferol (Vitamin D Tab) 1 inter.unit QAM PO 08/10/16 09:00 09/09/16 08:59 Enoxaparin Sodium (Lovenox Inj) 40 mg DAILY SQ 08/10/16 09:00 09/09/16 08:59 Ondansetron HCl (Zofran Inj) 4 mg Q4H PRN IV 08/09/16 12:45 09/08/16 12:44 Docusate Sodium 100 mg 100 mg BID PO 08/09/16 21:00 09/08/16 20:59 Cefazolin Sodium/ Dextrose (Ancef Iv/D5 50ml) 110 ml @ 100 mls/hr Q8H IV 08/09/16 22:00 08/10/16 07:05 Metoclopramide HCl (Reglan Inj) 10 mg Q8 IV. 08/09/16 22:00 08/10/16 21:59 Morphine Sulfate (MoRPHine SULFATE INJ) 1 mg Q1H PRN IV 08/09/16 12:45 08/23/16 12:44 Oxycodone HCl 5 mg 5 mg Q6H PRN PO 08/09/16 12:45 08/23/16 12:44 Sodium Chloride (Nss 1000ml) 1,000 ml @ 75 mls/hr [id number] IV 08/09/16 12:45 09/08/16 12:44 08/09/16 17:20 75 MLS/HR Insulin Aspart (novoLOG ASPART) SLIDING SCALE G... ACHS SC 08/09/16 16:00 09/08/16 15:59 08/09/16 18:01 9 UNITS Insulin Detemir (Levemir Flexpen/ FlexTouch) 14 unit QD@08 GA 08/10/16 08:00 09/09/16 07:59 Insulin Detemir (Levemir Flexpen/ FlexTouch) 8 unit HS SC 08/09/16 21:00 09/08/16 20:59 Glucose (Glucose 40% Gel) 15-30 GRAMS 15 GRAMS... UD PRN PO 08/09/16 13:15 09/08/16 13:14 Glucose (Glucose Chew Tab) 4-8 Tablets 4 Tabl... UD PRN PO 08/09/16 13:15 09/08/16 13:14 Dextrose (Dextrose 50% 50ML Syringe) 25-50ML OF 50% DW IV FOR... UD PRN IV 08/09/16 13:15 09/08/16 13:14 Glucagon (Glucagon Inj) 1 mg UD PRN SQ 08/09/16 13:15 09/08/16 13:14 Morphine Sulfate (MoRPHine SULFATE INJ) 2 mg Q1H PRN IV 08/09/16 16:15 08/23/16 16:14 Miscellaneous Information (Consult Glycemic Management Pharmacy) 1 ea UD PRN N/A 08/09/16 21:45 09/08/16 21:44 Insulin Aspart SLIDING SCALE G... 0030,0430 SC 08/10/16 00:30 08/10/16 04:31 Sodium Chloride (Nss 1000ml) 1,000 ml @ 0 mls/hr Q0M IV 08/09/16 22:15 09/08/16 22:14 UNV Review of Systems See above for pertinent positives & negatives. A total of 10 systems reviewed and were otherwise negative. Physical Exam Date Time Temp Pulse Resp B/P Pulse Ox O2 Delivery O2 Flow Rate FiO2 08/09/16 21:10 36.3 78 18 145/73 93 Room Air 08/09/16 17:10 71 18 152/64 96 Nasal Cannula 3.0 08/09/16 16:10 36.5 67 16 156/65 95 Nasal Cannula 3.0 08/09/16 15:29 99 Nasal Cannula 3.0 08/09/16 15:10 36.6 72 16 178/71 96 Room Air 08/09/16 14:10 100 Nasal Cannula 3.0 08/09/16 14:10 36.1 69 16 169/76 100 Nasal Cannula 3.0 08/09/16 14:10 100 Nasal Cannula 3.0 08/09/16 13:55 43 14 145/58 100 Nasal Cannula 3 08/09/16 13:45 41 16 157/65 100 Nasal Cannula 3 08/09/16 13:35 36.1 58 16 162/65 100 Nasal Cannula 3 08/09/16 13:25 56 16 160/67 100 Nasal Cannula 3 08/09/16 13:15 56 16 162/63 100 Mask 5 08/09/16 13:05 56 16 175/73 100 Mask 10 08/09/16 12:55 60 18 122/64 100 Mask 10 08/09/16 12:49 36.0 74 18 149/62 100 Mask 10 08/09/16 06:34 36.9 66 20 167/77 95 Room Air General Appearance: + pertinent finding (Very pleasant WD/WN 76 year old male sitting on edge of bed in NAD ) Head: normocephalic, atraumatic Eyes: PERRL, EOMI, sclerae normal ENT: hearing grossly normal, pharynx normal Neck: supple, no JVD Respiratory/Chest: chest non-tender, no respiratory distress, no accessory muscle use, + wheezing, + pertinent finding (coarse breath sounds. Chest tube intact to right back ) Cardiovascular: regular rate, rhythm, no edema, no gallop, no JVD, no murmur Abdomen/GI: normal bowel sounds, non tender, soft Back: normal inspection, no muscle spasm Extremities/Musculoskelatal: normal inspection, no calf tenderness, normal capillary refill, no pedal edema Neurologic/Psych: no motor/sensory deficits, alert, oriented x 3 Skin: normal color, warm/dry, no rash Lymphatic: no adenopathy Laboratory Results Last 24 Hours Test 08/09/16 06:02 08/09/16 12:54 08/09/16 17:28 08/09/16 21:09 Bedside Glucose 68 mg/dl 221 mg/dl 316 mg/dl 450 mg/dl Test 08/09/16 22:06 Assessment & Plan HYPERGLYCEMIA - IDDM -BSG 450 -10 units IV insulin ordered by primary team -Check PRP to assess anion gap, electrolytes -Give 500ml IVF bolus then resume 75ml/hr -Repeat BSG at midnight -diet changed to type 1 DM diet -Update A1c -SSI coverage -continue Levemir -Pharmacy consulted for glycemic control -Thank you for the consult H/O ASBESTOS EXPOSURE S/P THORACOSCOPY -POD #0 -management per primary team COPD -continue home inhalers HLD -continue Statin CKD STAGE 3 -repeat PRP pending -avoid nephrotoxic agents as able HTN -stable -continue Losartan -monitor per routine PAROXYSMAL AFIB -Stable -continue Aspirin DVT PROPHYLAXIS: per primary team CODE STATUS: FULL CODE DISPO:per primary team Patient seen in collaboration with Dr. Toney Thank you for this consultation. We will follow the patient with you during their hospital stay. You [facility] reach a [facility] via pager @ . Attending Addendum Pt was seen and examined. Agreed with Saba DIAZ's physical exam, assessment and plan. 76 year old male with PMHx of COPD, HLd, CKD stage 3,IDDM, HTN, PAF, s /p thoracoscopy, seen in consultation for hyperglycemia. denies any chest pain, palpitation, dizziness. BS has been running in the 's. Starting on insulin coverage by pharmacy, received 10 unit of regular insulin. continue levemir. check hba1c, BMP. Will continue monitor his BS. Dr. Hammonds will follow the patient with you during the hospital course. Thank you for the consult Tay Toney MD
[2016-08-09] MEDS ORDERED: SODIUM CHLORIDE 0.9% 1000ML 1,000 ML IV SCH (23:15)
[2016-08-10] VITALS: PULSE 94
[2016-08-10] MEDS: INSULIN ASPART 100 UNITS/ML 3 ML PEN SC SCH ×3 (00:25→09:36)
[2016-08-10 01:01] LABS: BUN/CREATININE RATIO 20.6 (10-20); CALCIUM 8.4 mg/dl (8.5-10.1); CREATININE 2.3 mg/dl (0.60-1.40); POTASSIUM 5.2 mmol/L (3.5-5.1)
[2016-08-10 01:19] LABS: BETA-HYDROXYBUTYRATE 20.7 mg/dL (0.2-2.81)
[2016-08-10] MEDS: ACETAMINOPHEN IV 1,000 MG in EMPTY BAG 0 ML IV SCH (01:47)
[2016-08-10] MEDS: SODIUM CHLORIDE 0.9% 1000ML 1,000 ML IV SCH (01:47)
[2016-08-10 01:52] VITALS: BP 143/78; PULSE 66; TEMP 36.2; O2SAT 99
[2016-08-10 03:11] VITALS: BP 118/60; PULSE 83; TEMP 36.3; O2SAT 98
[2016-08-10] MEDS: METOCLOPRAMIDE HCL INJ 5 MG/ML 2 ML VIAL IV. SCH (05:52)
[2016-08-10] MEDS: CEFAZOLIN IV 2,000 MG in DEXTROSE 5% 50ML 100 ML IV SCH (05:52)
[2016-08-10 05:58] VITALS: BP 128/63; PULSE 59; TEMP 36.2; O2SAT 92
[2016-08-10 07:02] VITALS: BP 150/71; PULSE 61; TEMP 36.1; O2SAT 98
[2016-08-10 07:29] LABS: HEMATOCRIT 34.9 % (42-52); MEAN CORPUSCULAR HEMOGLOBIN 28.1 pg (25-34); MEAN CORPUSCULAR HGB CONC 32.7 g/dl (32-36); MEAN PLATELET VOLUME 10.1 fL (7.4-10.4); PLATELET COUNT 215 K/uL (130-400); RED BLOOD COUNT 4.06 M/uL (4.7-6.1); WHITE BLOOD COUNT 11.12 K/uL (4.8-10.8)
[2016-08-10] MEDS ORDERED: ACETAMINOPHEN 325 MG TAB PO SCH (08:00)
[2016-08-10] MEDS ORDERED: INSULIN DETEMIR FLEXPEN/FLEX TOUCH 100 UNITS/ML 3ML SC SCH (08:00)
--- NOTE | 2016-08-10 08:27 | DIAGNOSTIC IMAGING REPORT ---
CHEST ONE VIEW PORTABLE HISTORY: chest tube removal COMPARISON: Chest 08/09/2016. FINDINGS: Right-sided chest tube is been removed. Small loculated right apical pneumothorax persist. The heart remains mildly enlarged. Small bilateral pleural effusions and patchy bibasilar densities are again noted. Mild diffuse residual thickening, unchanged. Right chest wall subcutaneous emphysema. IMPRESSION: 1. Right-sided chest tube is been removed. Small right pneumothorax remains unchanged. 2. Patchy bibasilar densities and small bilateral pleural effusions persist. Electronically signed by: Cali Sams M.D. 08/10/2016 8:25 AM Dictated Date/Time: 08/10/2016 8:23 AM
--- NOTE | 2016-08-10 08:31 | DIAGNOSTIC IMAGING REPORT ---
CHEST ONE VIEW PORTABLE HISTORY: s/p pleural biosy COMPARISON: Chest 08/09/2016. FINDINGS: Right-sided chest tube remains unchanged in position. Small right pneumothorax has slightly increased in size. This measures a maximal pleural gap of 12 mm at the apex. Patchy bibasilar densities and trace bilateral pleural effusions. The heart remains mildly enlarged. There is mild diffuse interstitial thickening is slightly improved. IMPRESSION: 1. Right-sided chest tube is in good position. Small right pneumothorax has slightly increased in size. 2. Patchy bibasilar densities and trace bilateral pleural effusions. Electronically signed by: Cali Sams M.D. 08/10/2016 8:29 AM Dictated Date/Time: 08/10/2016 8:27 AM
[2016-08-10 08:38] LABS: BUN/CREATININE RATIO 24.9 (10-20); CREATININE 1.8 mg/dl (0.60-1.40); POTASSIUM 5.1 mmol/L (3.5-5.1)
[2016-08-10 08:48] LABS: ESTIMATED AVERAGE GLUCOSE 206 mg/dl; HA1C FLAG Normal (Normal)
[2016-08-10] MEDS ORDERED: CHOLECALCIFEROL 1000 INTER.UNIT TAB PO SCH (09:00)
[2016-08-10] MEDS ORDERED: LOSARTAN POTASSIUM 50 MG TAB PO SCH (09:00)
[2016-08-10] MEDS ORDERED: HEPARIN SOD 5000 UNIT/0.5 ML CARP SQ SCH (09:00)
[2016-08-10] MEDS ORDERED: ASPIRIN 81 MG ECTAB PO SCH (09:00)
[2016-08-10] MEDS ORDERED: FLUTICASONE PROPIONATE NA SPR 16 GM BTL NAE SCH (09:00)
[2016-08-10] MEDS ORDERED: ENOXAPARIN 40 MG/0.4 ML SYR SQ SCH (09:00)
[2016-08-10] MEDS ORDERED: NON-FORMULARY MEDICATION (Glucosamine-Chondroitin-Vit C- (Glucosamine Chondroitin) 1 TAB) PO SCH (09:00)
[2016-08-10] MEDS ORDERED: MULTIVITAMIN TAB PO SCH (09:00)
[2016-08-10 09:02] LABS: CALCIUM 8.6 mg/dl (8.5-10.1)
[2016-08-10] MEDS: DOCUSATE SODIUM 100 MG CAP PO SCH (09:24)
[2016-08-10 10:00] VITALS: Ht 182.9 cm; Wt 93.2 kg
[2016-08-10] MEDS ORDERED: CLC100 PO (10:03)
--- NOTE | 2016-08-10 10:05 | Discharge Instructions ---
Discharge Instructions Date of Service Aug 10, 2016. Admission Reason for Admission: Interstitial Lung Disease, Pleural Thickening Discharge Discharge Diagnosis / Problem: Interstitial Lung Disease, Pleural Thickening Discharge Goals Goal(s): Learn about illness Activity Recommendations Activity Limitations: as noted below Lifting Limitations: none . Instructions / Follow-Up Instructions / Follow-Up 1. You may remove dressing in 3 days and shower thereafter. No tub baths. 2. Do not fly or SCUBA dive until cleared to do so by Dr. Lindsey. 3. Office appointment with Dr. Lindsey in 1-2 weeks. Office will call you with date and time of appointment. You will need a chest x-ray prior to appointment. Current Hospital Diet Patient's current hospital diet: Diabetes Type 1 Diet Discharge Diet Recommended Diet: Diabetes Type 1 Diet Procedures Procedures Performed: Robot Assisted Right Thoracoscopy with Lung and Pleural Biopsies, Partial Pleurectomy Pending Studies Studies pending at discharge: no Laboratory Results Hemoglobin A1c Test 08/09/16 22:32 Range/Units Estimated Average Glucose 206 mg/dl Hemoglobin A1c 8.8 H 4.5-5.6 % Medical Emergencies . Who to Call and When: Medical Emergencies: If at any time you feel your situation is an emergency, please call 911 immediately. . Non-Emergent Contact Non-Emergency issues call your: Surgeon Call Non-Emergent contact if: you have a fever, your pain is not controlled, wound has increased drainage . "Provider Documentation" section prepared by Keaton Kelley. VTE Core Measure Inpt VTE Proph given/why not?: Enoxaparin (Lovenox)SQ
--- NOTE | 2016-08-10 10:39 | Anesthesiology Progress Note ---
Anesthesia Post Op Note Date & Time Aug 10, 2016 at 10:37 Vital Signs Pain Intensity: 0.0 Vital Signs Past 12 Hours Date Time Temp Pulse Resp B/P Pulse Ox O2 Delivery O2 Flow Rate FiO2 08/10/16 07:02 36.1 61 17 150/71 98 Room Air 08/10/16 05:58 36.2 59 18 128/63 92 Room Air 08/10/16 04:25 Nasal Cannula 2.0 08/10/16 03:11 36.3 83 14 118/60 98 Nasal Cannula 2.5 08/10/16 01:52 36.2 66 18 143/78 99 Nasal Cannula 2.0 08/10/16 00:00 94 08/09/16 23:57 36.3 139 16 122/84 93 Room Air 08/09/16 23:30 Nasal Cannula 2.0 Notes Mental Status: alert / awake / arousable, participated in evaluation Pt Amnestic to Procedure: Yes Nausea / Vomiting: adequately controlled Pain: adequately controlled Airway Patency, RR, SpO2: stable & adequate BP & HR: stable & adequate Hydration State: stable & adequate Anesthetic Complications: no major complications apparent
[2016-08-10] MEDS ORDERED: OXYC-57 PO (10:40)
[2016-08-10 11:02] VITALS: BP 150/71; PULSE 61; TEMP 36.1; O2SAT 98
--- NOTE | 2016-08-10 17:52 | DISCHARGE SUMMARY ---
DISCHARGE DIAGNOSIS: 1. Pleural changes and parenchymal changes and history of asbestosis. HOSPITAL COURSE: A very nice 76-year-old man who has a history of a pretty extensive asbestos exposure has pleural plaques and also increased shortness of breath and infiltrates. On 08/09/2016, the patient was brought to the operating room and underwent an uncomplicated robotic-assisted thoracoscopic surgery with a partial pleurectomy and a lung biopsy. He did very well with this. He really required no pain medicine. He was watched on the floor. He was ambulating in the hallway. I removed his chest tube. His x-ray looked good. We sent him home one day postop and will see him back in the office over his pathology results in next week.
[2016-10-17] MEDS ORDERED: ACET-1256 PO (16:31)
[2016-10-17] MEDS ORDERED: GFNSR600 PO (16:31)
[2016-10-17] MEDS ORDERED: LPR25 PO (16:31)
[2016-10-17] MEDS ORDERED: CEFD300C3 PO (16:31)
[2016-10-17] MEDS ORDERED: XPNINS1255 INH (16:31)
[2016-10-17] MEDS ORDERED: PRED10TA PO (16:31)
[2016-11-13] MEDS ORDERED: PRT/20 PO (10:35)
[2016-11-16] MEDS ORDERED: LEVO1TAB35 PO (09:19)
[2016-11-16] MEDS ORDERED: BENZ100C7 PO (09:19)
[2016-11-16] MEDS ORDERED: LNX125 PO (09:19)
[2016-11-16] MEDS ORDERED: ASPEC81 PO (09:19)
[2016-11-16] MEDS ORDERED: LPR25 PO (09:19)
[2016-12-13] MEDS ORDERED: METO50TA16 PO (13:04)
== END 2016-08-10 11:31 | disposition home or self-care (01) | DRG 167 ==
LOC: ENRESERVTM → ENRESERVDT → C.ACU 05:23 → C.MSN 07:00 → UNDOADMIN 07:00
PROVIDERS: ADMIT Surgery; ATTEND Surgery
PROC: 0BNN4ZZ Release Right Pleura, Percutaneous Endoscopic Approach (ICD-10-PCS; principal; 2016-08-09 07:30)
PROC: 0BBC4ZX Excision of Right Upper Lung Lobe, Percutaneous Endoscopic Approach, Diagnostic (ICD-10-PCS; principal; 2016-08-09 07:30)
PROC: 0BBF4ZX Excision of Right Lower Lung Lobe, Percutaneous Endoscopic Approach, Diagnostic (ICD-10-PCS; principal; 2016-08-09 07:30)
PROC: 0BBN4ZX Excision of Right Pleura, Percutaneous Endoscopic Approach, Diagnostic (ICD-10-PCS; principal; 2016-08-09 07:30)
DX: J92.0 Pleural plaque with presence of asbestos (principal); J94.8 Other specified pleural conditions; J44.9 Chronic obstructive pulmonary disease, unspecified; R91.8 Other nonspecific abnormal finding of lung field; I27.2 Other secondary pulmonary hypertension; E11.65 Type 2 diabetes mellitus with hyperglycemia; I12.9 Hypertensive chronic kidney disease with stage 1 through stage 4 chronic kidney disease, or unspecified chronic kidney disease; E11.22 Type 2 diabetes mellitus with diabetic chronic kidney disease; N18.3 Chronic kidney disease, stage 3 (moderate); E11.42 Type 2 diabetes mellitus with diabetic polyneuropathy; I48.0 Paroxysmal atrial fibrillation; E78.5 Hyperlipidemia, unspecified; N40.0 Benign prostatic hyperplasia without lower urinary tract symptoms; Z87.891 Personal history of nicotine dependence; Z99.81 Dependence on supplemental oxygen; Z79.4 Long term (current) use of insulin; Z79.51 Long term (current) use of inhaled steroids; Z79.82 Long term (current) use of aspirin; Z79.899 Other long term (current) drug therapy

== ENCOUNTER → 2016-08-20 | Outpatient (CLI) | payer BC ==
[~2016-08-20] MED LIST changes: +ASPEC81 PO; +ATRINSX NEB; +BENZ100C7 PO; +CEFD300C3 PO; +CHOL2000 PO; +CLC100 PO; +CZR50 PO; +FINA5TAB4 PO; +FLNIN/ NAE; +GFNSR600 PO; +LEVO1TAB33 PO; +LEVO1TAB35 PO; +LNX125 PO; +LOSA50TA6 PO; +LPR25 PO; +METO50TA16 PO; +NITR0.4S UT; +NVLGI/PEN SQ; +OXYC-57 PO; +PRED-301 PO; +PRED10TA PO; +PRT/20 PO; +RANI150T2 PO; +SPRIN/30 INH; +TIOT1SPR INH; +ULT50 PO; +WARF2.5T8 PO; +XPNINS1255 INH
--- NOTE | 2016-08-20 08:53 | DIAGNOSTIC IMAGING REPORT ---
CHEST 2 VIEWS ROUTINE HISTORY: J92.0 Pleural plaque with presence of [id number] COMPARISON: Chest 08/10/2016. FINDINGS: Suture material within the right lung apex. Small right apical hydropneumothorax is not significantly changed. Stable hazy and scarlike densities within the right lower lung zone. The heart is stable in size. A few linear left basilar densities persist. Right chest wall subcutaneous emphysema has improved. Trace left pleural effusion is again noted. IMPRESSION: No change in the small right hydropneumothorax, trace left pleural effusion, and bibasilar densities. Electronically signed by: Cali Sams M.D. 08/20/2016 8:50 AM Dictated Date/Time: 08/20/2016 8:49 AM
== END | disposition home or self-care (01) ==
LOC: C.RAD 08:35
PROVIDERS: ATTEND Surgery
DX: J92.0 Pleural plaque with presence of asbestos (principal)

== ENCOUNTER → 2016-09-05 | Outpatient (CLI) | payer BC ==
--- NOTE | 2016-09-05 09:10 | DIAGNOSTIC IMAGING REPORT ---
NUCLEAR MEDICINE VENTILATION/PERFUSION SCAN CLINICAL HISTORY: Recent lung surgery. Rib pain. Evaluate for evidence of pulmonary embolus. COMPARISON: Chest radiograph September 05, 2016. TECHNIQUE: For the ventilation portion of this exam, 32.7 mCi of DTPA was inhaled at 8:00 AM on September 05, 2016. Immediately following inhalation, imaging of the chest was carried out in the anterior, posterior, left lateral, right lateral, LPO, RPO, CAMBODIAN and MARTIN projections. For the perfusion portion of exam, 5.5 mCi of technetium 99m MAA was injected IV at 8:35 AM on September 05, 2016. Immediately following injection, imaging of the chest was carried out in the same projections. FINDINGS: Central radiotracer deposition is noted on the ventilation portion of this exam which suggests chronic lung disease. There is heterogeneous perfusion to both lungs. No large mismatched defects are identified. There is an area of diminished perfusion to the right lower lung. IMPRESSION: Technically compromised exam with central radiotracer deposition on the ventilation portion of the study. Heterogeneous perfusion to the lungs. Study considered intermediate probability for pulmonary embolus. Electronically signed by: Akshat Calderon M.D. 09/05/2016 9:09 AM Dictated Date/Time: 09/05/2016 9:06 AM
--- NOTE | 2016-09-05 09:14 | DIAGNOSTIC IMAGING REPORT ---
CHEST 2 VIEWS ROUTINE HISTORY: J92.0 Pleural plaque with presence of [id number] Pulmonary e COMPARISON: Chest 08/20/2016. FINDINGS: No pneumothorax. The heart remains mildly enlarged. Right pneumothorax has resolved. Small right pleural effusion persists. Progressive right apical pleural thickening which may be due to postoperative change. There are suture material within the right lung apex. Patchy and linear densities the right lung base are again noted. There is improved aeration within the left lung base. No new focal lung consolidations. No evidence for pulmonary edema. IMPRESSION: 1. Interval resolution of the right-sided pneumothorax. 2. Small right pleural effusion persists. There is progressive pleural thickening at the right lung apex which may be due to postoperative change. Follow-up is recommended to ensure stability. 3. Right basilar linear and patchy densities remain unchanged. There is improved aeration within the left lung base. Electronically signed by: Cali Sams M.D. 09/05/2016 9:13 AM Dictated Date/Time: 09/05/2016 9:11 AM
--- NOTE | 2016-09-05 09:34 | DIAGNOSTIC IMAGING REPORT ---
BILATERAL LOWER EXTREMITY VENOUS DOPPLER CLINICAL HISTORY: Bilateral lower extremity swelling. Pulmonary embolism. COMPARISON STUDY: No previous studies for comparison. TECHNIQUE: Sonography of the deep venous system of the bilateral lower extremities was performed. Compression and augmentation were evaluated. FINDINGS: The bilateral common femoral, superficial femoral and popliteal veins were compressible. Augmentation was normal. Flow was shown within the deep calf vessels. IMPRESSION: No evidence of deep venous thrombus within the bilateral lower extremities. Electronically signed by: Akshat Calderon M.D. 09/05/2016 9:32 AM Dictated Date/Time: 09/05/2016 9:32 AM
== END | disposition home or self-care (01) ==
LOC: C.NUCL 07:40
PROVIDERS: ATTEND Internal Medicine Critical Care Medicine
DX: I26.99 Other pulmonary embolism without acute cor pulmonale (principal); J92.0 Pleural plaque with presence of asbestos

== ENCOUNTER → 2016-10-05 | Outpatient (CLI) | payer BC ==
--- NOTE | 2016-10-05 14:32 | DIAGNOSTIC IMAGING REPORT ---
MODIFIED BARIUM SWALLOW CLINICAL HISTORY: COPD. Abnormal chest radiograph. Evaluate for aspiration. COMPARISON STUDY: No previous studies for comparison. Fluoroscopy time: 1.4 minutes. FINDINGS: No aspiration was identified within liquids, nectar thick liquids, pudding or crackers with paste. Swallowing mechanism was intact. IMPRESSION: 1. No tracheal aspiration. Intact swallowing mechanism. 2. Full recommendations by speech pathology to follow. Electronically signed by: Akshat Calderon M.D. 10/05/2016 2:31 PM Dictated Date/Time: 10/05/2016 2:29 PM
--- NOTE | 2016-10-06 17:16 | SWALLOWING EVALUATION ---
REFERRING SPEECH PATHOLOGIST: n/a HISTORY: This 76 year-old man was referred for a VFSS at [facility] in order to rule out aspiration in the setting of repeated pneumonias and an abnormal chest CT. The patient has a PMH significant for COPD, atelectasis, aspergillosis, bronchiectasis, 63 year smoking history, and DM II. He began daily use of 2LO2NC ~ 2 weeks ago. Currently the patient's diet level is regular. He denies dysphagia and odynophagia. PROCEDURE: The patient was seen in the Radiology Department of [facility] for the VFSS. Cursory examination of the oral cavity revealed adequate dentition and adequate movement of the articulators. The patient was seated on a stool and was viewed in both the Anterior-Posterior (A-P) and Lateral planes. Volitional phonation exercises completed in the A-P plane revealed bilateral vocal fold movement and vocal intensity within functional limits. In the lateral plane, the patient was given the following boluses: 1 tsp. thin liquid barium x 2, single swallow thin liquid barium self-presented from a cup, sequential swallows of thin liquid barium self-presented from a cup, 1 tsp. nectar-thick liquid barium, single swallow nectar-thick liquid barium self-presented from a cup, 1 tsp. barium pudding, and 1 club cracker with barium pudding. The patient was then repositioned into the A-P plane and given 1 tsp. barium pudding. RESULTS: Oral Stage: Labial seal was complete. Cohesive bolus formed between tongue and palate during oral bolus hold of thin liquid barium. Mastication and bolus transport were timely and efficient. No oral bolus retention. Initiation of the pharyngeal swallow occurred when the bolus head was at the posterior angle of the ramus. The oral stage was WFL. Pharyngeal Stage: No bolus between soft palate and pharyngeal wall. Laryngeal elevation, anterior hyoid excursion, epiglottic inversion, and laryngeal vestibular closure were complete. Pharyngeal stripping wave present. Complete pharyngeal contraction seen in AP plane. Distention and duration of PES opening was adequate. No contrast between tongue base and pharyngeal wall. No pharyngeal bolus retention. There was no penetration or aspiration during this study. The pharyngeal swallow was WFL. Esophageal Stage: A pudding bolus transited the esophagus without evidence of retention. SUMMARY/RECOMMENDATIONS: This patient presents with normal oral-pharyngeal swallowing mechanics and no overt s/s esophageal dysfunction. The following is recommended: 1. Regular diet as tolerated 2. No further f/u is indicated. A summary of the results and recommendations was discussed with the patient immediately following the study. He verbalized understanding. Thank you for referral of this patient. Please contact me at if any additional information is needed.
== END | disposition home or self-care (01) ==
LOC: C.RAD 13:03
PROVIDERS: ATTEND Internal Medicine Critical Care Medicine
DX: E11.9 Type 2 diabetes mellitus without complications (principal); J47.9 Bronchiectasis, uncomplicated; J44.9 Chronic obstructive pulmonary disease, unspecified; J84.9 Interstitial pulmonary disease, unspecified; R93.8 Abnormal findings on diagnostic imaging of other specified body structures

== ENCOUNTER 2016-10-11 15:25 | Inpatient (IN) | payer BC, OTHER ==
[~2016-10-11] VITALS: Ht 182.9 cm; Wt 89.4 kg
[~2016-10-11 15:25] MED LIST changes: -ASPEC81 PO; -ATRINSX NEB; -BENZ100C7 PO; -CEFD300C3 PO; -CHOL2000 PO; -CZR50 PO; -FINA5TAB4 PO; -FLNIN/ NAE; -GFNSR600 PO; -LEVO1TAB33 PO; -LEVO1TAB35 PO; -LNX125 PO; -LOSA50TA6 PO; -LPR25 PO; -METO50TA16 PO; -NITR0.4S UT; -NVLGI/PEN SQ; -PRED-301 PO; -PRED10TA PO; -PRT/20 PO; -RANI150T2 PO; -SPRIN/30 INH; -TIOT1SPR INH; -ULT50 PO; -WARF2.5T8 PO; -XPNINS1255 INH
--- NOTE | 2016-10-11 16:59 | EMERGENCY ROOM VISIT NOTE ---
History Report prepared by Tamiko: Samantha Milligan Under the Supervision of: Dr. Fabiola Figueredo D.O. First contact with patient: 16:32 Chief Complaint: RESPIRATORY PROBLEMS Stated Complaint: BREATHING PROBLEMS Nursing Triage Summary: pt currently on prednisone and levaquin for bronchitis from PCP , not feeling better , + cough, increased exertional sob History of Present Illness The patient is a 76 year old male who presents to the Emergency Room with complaints of increasing respiratory problems that began three days ago. The patient reports that he has a rescue kit at home that includes Levaquin and Prednisone. He states that he started his rescue kit, but denies any relief of his symptoms. The patient additionally notes shortness of breath, cough, wheezing, and tachycardia. He states that his cough is intermittently productive. The patient states that he is a previous smoker. He states that he has been using Spiriva and Dulera inhalers and nebulizer treatments 2-3 times per day. The patient states that he typically wears supplemental oxygen at night, but states that he has been using it throughout the day the past three days. He denies any pain, fever, chills, vomiting, nausea, or diarrhea. The patient denies any sick contacts. He reports that he saw his PCP today regarding his symptoms. Patient states he has a prior history of an irregular heartbeat that usually goes away on its own. Patient knowledges that this is a 2 fibrillation. States he is no longer taking any blood thinners chest and aspirin because dysrhythmia is not persistent. After reviewing the patient's EMR, the patient's CT from last year showed chronic lung diseases including emphysema. More recently he has been worked up for chronic aspiration and had a barium swallow study that was negative. He had a thorocospy to look at plaques that appear to be from asbestos exposure. Source of History: patient Onset: three days ago Position: other (global) Quality: other (respiratory problems) Timing: other (persistent) Associated Symptoms: + cough, + SOB, No fevers, No chills, No nausea, No vomiting, No diarrhea Note: Associated Symptoms: tachycardia and wheezing Review of Systems See HPI for pertinent positives & negatives. A total of 10 systems reviewed and were otherwise negative. Past Medical & Surgical Medical Problems: (1) Asbestos exposure (2) BPH (benign prostatic hypertrophy) (3) CKD (chronic kidney disease) stage 3, GFR 30-59 ml/min (4) COPD (chronic obstructive pulmonary disease) (5) COPD exacerbation (6) Diabetes type I (7) Dyslipidemia (8) History of basal cell carcinoma (9) Hypertension (10) Paroxysmal atrial fibrillation (11) Pleural plaque (12) Rapid atrial fibrillation Surgical Problems: (1) H/O nasal polypectomy (2) History of inguinal hernia repair (3) History of surgery of head Family History Cancer MOTHER Diabetes mellitus BROTHER Gallbladder disease Heart disease Hypertension Kidney disease Kidney stones Social History Smoking Status: Former Smoker Alcohol Use: none Marital Status: Housing Status: lives with significant other Occupation Status: retired Current/Historical Medications Scheduled Aspirin (Aspirin 81), 81 MG PO QAM Cholecalciferol (Vitamin D3), 1 CAP PO DAILY Docusate Sodium (Docusate Sodium), 100 MG PO BID Fluticasone Propionate (Fluticasone Propionate), 2 SPRAYS [place] DAILY Furosemide (Lasix), 20 MG PO Q2D Phzvefcmzyo-Xremvpfgpzk-Xkx C- (Glucosamine Chondroitin), 1 TAB PO QAM Insulin Aspart (Novolog Flexpen), 1 DOSE SQ ACHS Insulin Detemir (Levemir), SQ UD Ipratropium [place] (Atrovent 0.02% Soln), 1 DOSE NEB QID Levofloxacin (Levaquin), 1 TAB PO DAILY Losartan Potassium (Cozaar), 50 MG PO DAILY Mometasone Furoate-Formoterol (Dulera 200/5 Mcg), 2 PUFFS INH BID Multivitamin (Multivitamin), 1 TAB PO QAM Prednisone (Prednisone), 0 PO UD Ranitidine HCl (Ranitidine HCl), 1 TAB PO BID Simvastatin (Zocor), 20 MG PO QPM Tamsulosin Hcl (Flomax), 0.4 MG PO HS Tiotropium [place] Monohydrate (Spiriva Respimat), 2 PUFFS INH DAILY Scheduled PRN Acetaminophen (Tylenol), 1,000 MG PO DIRECTED PRN for Fever Ipratropium-Albuterol (Duoneb), 1 TREATMENT INH Q4H PRN for PRN Tramadol HCl (Tramadol HCl), 1 TAB PO TID PRN for Pain Zolpidem Tartrate (Ambien), 5-10 MG PO HS PRN for INSOMNIA Allergies Coded Allergies: Diltiazem (Verified Allergy, Mild, RASH, 10/11/16) Aspirin (Verified Adverse Reaction, Mild, GI SYMPTOMS, 10/11/16) Lisinopril (Verified Adverse Reaction, Unknown, cough, 10/11/16) Propoxyphene (Verified Adverse Reaction, Unknown, STOMACH UPSET DIARRHEA, 10/11/16) Physical Exam Vital Signs Date Time Temp Pulse Resp B/P (MAP) Pulse Ox O2 Delivery O2 Flow Rate FiO2 10/11/16 20:30 113 19 95 10/11/16 20:25 123 17 94 10/11/16 20:20 116 25 93 10/11/16 20:15 130 23 92 10/11/16 20:05 124 27 10/11/16 20:00 119 17 10/11/16 19:45 125 26 95 10/11/16 19:41 137 152/112 10/11/16 19:40 129 23 95 10/11/16 19:35 118 18 95 10/11/16 19:32 116 18 152/112 95 Nasal Cannula 10/11/16 19:31 152/112 10/11/16 19:30 120 21 96 10/11/16 19:25 130 18 95 10/11/16 19:20 138 21 95 10/11/16 19:15 134 19 96 10/11/16 19:10 139 20 96 10/11/16 19:05 127 18 97 10/11/16 19:02 133/98 10/11/16 19:01 133/98 10/11/16 19:00 128 17 98 10/11/16 18:55 130 16 98 10/11/16 18:53 Nasal Cannula 10/11/16 18:50 140 17 96 10/11/16 18:45 141 19 10/11/16 18:40 152 18 10/11/16 18:35 149 22 10/11/16 18:31 130/108 10/11/16 18:30 139 17 10/11/16 18:25 138 24 96 10/11/16 18:20 140 20 94 10/11/16 18:15 115 21 94 10/11/16 18:10 142 18 95 10/11/16 18:05 115 32 95 10/11/16 18:01 130/90 10/11/16 18:00 120 17 95 10/11/16 17:55 125 17 95 10/11/16 17:50 125 23 95 10/11/16 17:45 133 22 95 10/11/16 17:40 137 19 136/93 94 10/11/16 17:15 136 14 95 10/11/16 17:10 128 21 96 10/11/16 17:05 120 17 96 10/11/16 17:04 95 Nasal Cannula 3.0 10/11/16 17:02 85 Room Air 10/11/16 17:00 120 21 96 10/11/16 16:55 130 23 95 10/11/16 16:50 141 22 96 10/11/16 16:45 135 22 95 10/11/16 16:45 135 10/11/16 16:32 109/80 10/11/16 15:47 36.9 125 24 180/89 90 Room Air Physical Exam GENERAL: alert, well appearing, well nourished, no distress, non-toxic EYE EXAM: normal conjunctiva, PERRL and EOM's grossly intact OROPHARYNX: no exudate, no erythema, lips, buccal mucosa, and tongue normal and mucous membranes are moist NECK: supple, no nuchal rigidity, no adenopathy, non-tender LUNGS: Conversational dyspnea. Diminished breath sounds bilaterally, scattered expiratory wheezes. HEART: no murmurs, S1 normal and S2 normal ABDOMEN: abdomen soft, non-tender, normo-active bowel sounds, no masses, no rebound or guarding. BACK: Back is symmetrical on inspection and there is no deformity, no midline tenderness, no CVA tenderness. SKIN: no rashes and no bruising UPPER EXTREMITIES: upper extremities are grossly normal. LOWER EXTREMITIES: 3+ lower extremity edema bilatearlly. Normal cap refill, normal pulses. NEURO EXAM: Normal sensorium, cranial nerves II-XII grossly intact, normal speech, no gross weakness of arms, no gross weakness of legs. Medical Decision & Procedures ER Provider Diagnostic Interpretation: Radiology results have been interpreted by the radiologist and reviewed by me. CHEST 2 VIEWS ROUTINE CLINICAL HISTORY: cough, sob dyspnea COMPARISON STUDY: 09/05/2016 FINDINGS: Emphysematous and chronic fibrotic change. Chronic apical pleural thickening bilaterally. Chronic bibasilar parenchymal infiltrative changes. This is perhaps slightly progressive on the right. IMPRESSION: Emphysematous and chronic fibrotic/pleural thickening changes. Minimal superimposed parenchymal infiltrate right base. Electronically signed by: Kg Pablo M.D. 10/11/2016 5:39 PM Dictated Date/Time: 10/11/2016 5:38 PM Laboratory Results Test 10/11/16 16:50 Prothrombin Time 10.7 SECONDS (9.0-12.0) Prothromb Time International Ratio 1.0 (0.9-1.1) D-Dimer 270 ug/L FEU (0-500) Total Bilirubin 0.5 mg/dl (0.2-1) Aspartate Amino Transf (AST/SGOT) 9 U/L (15-37) Alanine Aminotransferase (ALT/SGPT) 18 U/L (12-78) Alkaline Phosphatase 91 U/L (45-117) Pro-B-Type Natriuretic Peptide 1831 pg/ml (0-1800) Total Protein 7.1 gm/dl (6.4-8.2) Albumin 3.6 gm/dl (3.4-5.0) Globulin 3.5 gm/dl (2.5-4.0) Albumin/Globulin Ratio 1.0 (0.9-2) Thyroid Stimulating Hormone (TSH) 1.120 uIu/ml (0.300-4.500) Laboratory results per my review. Medications Administered Medications (Trade) Dose Ordered Sig/Bertha Route Start Time Stop Time Status Last Admin Dose Admin Furosemide (Lasix Inj) 40 mg STK-MED ONCE .ROUTE 10/11/16 19:28 10/11/16 19:29 DC 10/11/16 19:31 40 MG Metoprolol Tartrate (Lopressor Iv) 5 mg NOW STAT IV 10/11/16 19:30 10/11/16 19:31 DC 10/11/16 19:41 5 MG Methylprednisolone Sodium Succinate (Solu-Medrol IV) 80 mg NOW STAT IV 10/11/16 19:39 10/11/16 19:40 DC 10/11/16 19:53 80 MG Metoprolol Tartrate (Lopressor Iv) 5 mg NOW STAT IV 10/11/16 19:59 10/11/16 20:01 DC 10/11/16 21:35 5 MG ECG Indication: SOB/dyspnea Rate (beats per minute): 142 Rhythm: atrial flutter Findings: no acute ischemic change, other (left axis deviation, normal QRS, normal QTC) ED Course 1648: The patient was evaluated in room B8. A complete history and physical exam was performed. 1927: Ordered Lasix Inj 40 mg .route. Patient states he used to take Lasix for his lower extremity edema, however they were concerned about the stress on his kidney so he no longer takes it. Discussed chest x-ray with patient also. He states he has a chronically abnormal chest x-ray and that was part of his recent evaluation by CT surgery. 1929: Ordered Lopressor IV 5 mg IV. 1935: I discussed the patients case with Zuri Galdamez. He is going to evaluate the patient for further treatment. 1938: Ordered Solu-Medrol IV 80 mg IV. 1940: I reevaluated the patient and he is doing well. He is still tachycardic and I discussed blood thinners with him. I discussed the exam findings with him and I discussed the treatment plan. He verbalized complete understanding and agreement. He is going to be evaluated for further treatment. 1947: I discussed the patients case with BRITTANEY Pinon. She is going to evaluate the patient for further treatment. 1958: Ordered Lopressor IV 5 mg IV, Heparin Sodium/Dextrose 1 ea NA. 2016: I reevaluated the patient and his heart rate is still elevated. 2045: HR improved to 115. Pt states intermittent cough, but no other complaints. Awaiting evaluation by hospitalist. Medical Decision Differential diagnoses includes but is not limited to pneumonia, bronchitis, COPD/Asthma exacerbation, pneumothorax, pulmonary embolism, congestive heart failure, acute coronary syndrome Medication Reconciliation: I attest that I have personally reviewed the patient' s current medication list. Blood pressure screening: Patient was found to have an elevated blood pressure and was referred to their primary doctor for recheck and further treatment. Patient well-appearing here despite complaints, no hypoxia, and no increased work of breathing at rest. Patient does not chronically wear home O2 does have a history of COPD and prior exacerbations as well as likely underlying asbestosis recently worked up as an outpatient. Patient presents with no improvement in his symptoms despite recent Levaquin and steroids. Unclear finding on chest x-ray related to new infiltrate versus old findings consistent with plaques and asbestosis. Patient also found to be in rapid A. fib. Patient states he has had this previously and per old records patient with paroxysmal A. fib which has PVCs spontaneously converted. Patient states prior allergy to Cardizem, IV metoprolol was given instead. Patient's rate slowed, however was still rapid. Heparin drip ordered. Discussed with hospitalist possible use of digoxin, discussed additional steroids despite patient's current steroids as an outpatient, discussed his preference for anabiotic's for possible residual infectious etiology. Hospitalist will evaluate and place additional orders. Doubt bacteremia/sepsis. I feel possible component of congestive heart failure given elevated BNP and lower extremity edema, this may be the reason for patient's persistent cough and shortness of breath combined with recent COPD exacerbation. Patient given dose of Lasix in the emergency room. Last echo noted several years ago with a normal EF. Patient not hypotensive, felt improved with oxygen via nasal cannula, offered nebulas or treatments which she declined. Patient aware of all results and need for additional valuation admission was agreeable with plan. Consults Time Called: 1928 Consulting Physician: Zuri Galdamez Returned Call: 1935 I discussed the patients case with Zuri Galdamez. He is going to evaluate the patient for further treatment. Impression Primary Impression: COPD exacerbation Additional Impressions: Atrial fibrillation with RVR Dyspnea CHF (congestive heart failure) CKD (chronic kidney disease) stage 3, GFR 30-59 ml/min Hypertension Critical Care I have personally spent greater than 35 minutes of critical care time in the direct management of this patient. This includes bedside care, interpretation of diagnostic studies, and testing, discussion with consultants, patient, and family members, and other required patient management activities. This 35 minutes is in excess of all separately billable procedures. Scribe Attestation The scribe's documentation has been prepared under my direction and personally reviewed by me in its entirety. I confirm that the note above accurately reflects all work, treatment, procedures, and medical decision making performed by me. Departure Information Dispostion Being Evaluated By Hospitalist Prescriptions Losartan Potassium (COZAAR) 50 Mg Tab 50 MG PO DAILY, #30 TAB Prov: Dmitriy Burns MD 10/11/16 Tiotropium [place] Monohydrate (Spiriva Respimat) 2.5 Mcg/Act Spr 2 PUFFS INH DAILY, #1 Prov: Dmitriy Burns MD 10/11/16 Tramadol HCl (Tramadol HCl) 50 Mg Tab 1 TAB PO TID Y for Pain, #30 Prov: Dmitriy Burns MD 10/11/16 Referrals Stan Patrick MD (PCP) Problem Qualifiers Additional Impressions: Dyspnea Dyspnea type: shortness of breath Qualified Codes: R06.02 - Shortness of breath CHF (congestive heart failure) Congestive heart failure type: combined Congestive heart failure chronicity: acute Qualified Codes: I50.41 - Acute combined systolic (congestive) and diastolic (congestive) heart failure Hypertension Hypertension type: essential hypertension Qualified Codes: I10 - Essential ( primary) hypertension
[2016-10-11 17:07] LABS: BASO % 0.1 %; BASO ABS # 0.01 K/uL (0-0.2); COMPLETE YES; HEMATOCRIT 35.1 % (42-52); IG% 0.1 %; LYMPH % 7.5 %; LYMPH ABS # 0.67 K/uL (1.2-3.4); MEAN CELL VOLUME 85.6 fL (80-100); MEAN CORPUSCULAR HGB CONC 32.8 g/dl (32-36); MEAN PLATELET VOLUME 10.4 fL (7.4-10.4); NEUT % 91.3 %; PLATELET COUNT 197 K/uL (130-400); WHITE BLOOD COUNT 8.89 K/uL (4.8-10.8)
[2016-10-11 17:15] LABS: PROTHROMBIN TIME (PATIENT) 10.7 SECONDS (9.0-12.0)
[2016-10-11 17:31] LABS: BUN/CREATININE RATIO 24.8 (10-20); CALCIUM 8.8 mg/dl (8.5-10.1); CREATININE 1.9 mg/dl (0.60-1.40)
--- NOTE | 2016-10-11 17:40 | DIAGNOSTIC IMAGING REPORT ---
CHEST 2 VIEWS ROUTINE CLINICAL HISTORY: cough, sob dyspnea COMPARISON STUDY: 09/05/2016 FINDINGS: Emphysematous and chronic fibrotic change. Chronic apical pleural thickening bilaterally. Chronic bibasilar parenchymal infiltrative changes. This is perhaps slightly progressive on the right. IMPRESSION: Emphysematous and chronic fibrotic/pleural thickening changes. Minimal superimposed parenchymal infiltrate right base. Electronically signed by: Kg Pablo M.D. 10/11/2016 5:39 PM Dictated Date/Time: 10/11/2016 5:38 PM
[2016-10-11 17:42] LABS: THYROID STIMULATING HORMONE 1.12 uIu/ml (0.300-4.500)
[2016-10-11] MEDS ORDERED: ATRINSX NEB (17:57)
[2016-10-11] MEDS ORDERED: LEVO1TAB33 PO (17:57)
[2016-10-11] MEDS ORDERED: RANI150T2 PO (17:57)
[2016-10-11] MEDS ORDERED: FLNIN/ NAE (17:57)
[2016-10-11] MEDS ORDERED: CHOL2000 PO (17:57)
[2016-10-11] MEDS ORDERED: ULT50 PO ×2 (17:57→20:33)
[2016-10-11] MEDS ORDERED: NVLGI/PEN SQ (18:00)
[2016-10-11] MEDS ORDERED: PRED10TA PO (18:00)
[2016-10-11] MEDS ORDERED: FUROSEMIDE INJ 40 MG in SYRINGE 0 ML IV STA (18:52)
[2016-10-11 18:53] VITALS: BMI 26.8
[2016-10-11] MEDS ORDERED: FUROSEMIDE 40 MG/4 ML VIAL ONE (19:28)
[2016-10-11] MEDS ORDERED: METOPROLOL TARTRATE 1 MG/ML VIAL IV STA ×2 (19:30→19:59)
[2016-10-11] MEDS: METHYLPREDNISOLONE 125 MG VIAL IV STA ×2 (19:39→19:53)
[2016-10-11] MEDS ORDERED: HEPARIN IV LOW DOSE NO BOLUS STA (19:59)
[2016-10-11] MEDS ORDERED: LEVALBUTEROL/IPRATROPIUM NEB INH PRN (20:30)
[2016-10-11] MEDS ORDERED: MAGNESIUM HYDROXIDE SUSP 30 ML UDC PO PRN (20:30)
[2016-10-11] MEDS ORDERED: METOPROLOL TARTRATE 1 MG/ML VIAL IV PRN (20:30)
[2016-10-11] MEDS ORDERED: ONDANSETRON INJ 2 MG/ML 2 ML VIAL IV PRN (20:30)
[2016-10-11] MEDS ORDERED: ALUMINUM/MAGNESIUM/SIMETH (MAALOX MAX) 30 ML UDC PO PRN (20:30)
[2016-10-11] MEDS ORDERED: ACETAMINOPHEN 325 MG TAB PO PRN (20:30)
[2016-10-11] MEDS ORDERED: ZOLPIDEM TARTRATE 5 MG TAB PO PRN (20:30)
[2016-10-11] MEDS ORDERED: NITROGLYCERIN 0.4 MG SL PER TAB CHARGE SL PRN (20:30)
[2016-10-11] MEDS ORDERED: TIOT1SPR INH (20:33)
[2016-10-11] MEDS ORDERED: LOSA50TA6 PO (20:34)
[2016-10-11] MEDS ORDERED: HEPARIN IV LOW DOSE NO BOLUS SCH (20:37)
[2016-10-11] MEDS ORDERED: PHARMACY GLYCEMIC MGMT CONSULT PRN (20:41)
[2016-10-11] MEDS ORDERED: TRAMADOL HCL 50 MG TAB PO PRN (20:45)
[2016-10-11] MEDS ORDERED: HEPARIN 25000 UNIT/500 ML D5W ONE (20:54)
--- NOTE | 2016-10-11 20:58 | Pharmacy Progress Note ---
Glycemic Control Intl Consult Date of Service Oct 11, 2016. Scope Glycemic Pharmacist consulted by Dr Burns on 10/11/16 for glycemic control and to write orders per [facility] ED inpatient glycemic control protocol Objective Weight (Kilograms): 89.600 Accuchecks BSG (last 24hrs): Test 10/11/16 16:50 Random Glucose 238 mg/dl (70-99) Laboratory Data (last 24hrs) Test 10/11/16 16:50 Anion Gap 9.0 mmol/L BUN/Creatinine Ratio 24.8 Blood Urea Nitrogen 47 mg/dl Creatinine 1.90 mg/dl Potassium Level 5.0 mmol/L Sodium Level 142 mmol/L White Blood Count 8.89 K/uL Red Blood Count 4.10 M/uL Hemoglobin 11.5 g/dL Hematocrit 35.1 % Mean Corpuscular Volume 85.6 fL Mean Corpuscular Hemoglobin 28.0 pg Mean Corpuscular Hemoglobin Concent 32.8 g/dl Platelet Count 197 K/uL Mean Platelet Volume 10.4 fL Neutrophils (%) (Auto) 91.3 % Lymphocytes (%) (Auto) 7.5 % Monocytes (%) (Auto) 1.0 % Eosinophils (%) (Auto) 0.0 % Basophils (%) (Auto) 0.1 % Neutrophils # (Auto) 8.11 K/uL Lymphocytes # (Auto) 0.67 K/uL Monocytes # (Auto) 0.09 K/uL Eosinophils # (Auto) 0.00 K/uL Basophils # (Auto) 0.01 K/uL Recent Pertinent Medications Outpatient Anti-diabetic Regimen: * Levemir * 14 units SQ q AM * 8 units SQ q PM * NovoLog SSI * ~10 units BID * A1c = 8.8 % 07/2016 The patient is currently receiving: * Basal insulin: * Levemir 14 units every 12 hours * Bolus Insulin: * NovoLog SQ ACHS - Goal Range: Low 110 mg/dL - High 140 mg/dL - Correction Factor: 25 mg/dL/unit - Carb ratio of 1 unit per 7 grams CHO consumed Risk Factors for Insulin Resistance: * Steroids: Solu-Medrol 80mg IV x1 in ED, then 40mg IV every 8 hours * Infection: Zosyn and Zithromax IV * IVF: heparin gtt (mixed in dextrose) * Diet: T1DM Assessment & Plan ASSESSMENT: * ADA & AACE recommend a goal blood sugar range 140-180 mg/dl for the majority of critically ill & non-critically ill patients. However, more stringent targets may be selected in individual cases. * Type 1 diabetic with recent admissions and glycemic consults * Will be started on ATC steroids and heparin infusion - both of which are likely to increase BSGs * Increase Levemir doses based on prior admissions * NovoLog parameters also based on prior admission * A1c - ordered with AM labs on 10/12 PLAN FOR INPATIENT GLYCEMIC CONTROL: * Basal insulin: * Levemir SQ q 12 hours - if BSG is below 140mg/dL give 8 units - if BSG is 140mg/dL or above give 16 units (likely this will need changed as steroids change to mimic home regimen * Bolus Insulin: * NovoLog SQ ACHS (add overnight Accu-checks while on ATC steroids) - Goal Range: Low 140 mg/dL - High 180 mg/dL per ADA recommendations - Correction Factor: 20 mg/dL/unit - Carb ratio of 1 unit per 7 grams CHO consumed * Please note that the plan above was derived based on current level of insulin resistance and hospital stress. These recommendations are appropriate for inpatient admission only. Plan of care upon discharge will need to be reassessed to avoid potential outpatient hypo/hyperglycemia. Thank you.
[2016-10-11] MEDS ORDERED: DEXTROSE 50% 50 ML SYR IV PRN (21:00)
[2016-10-11] MEDS ORDERED: LEVALBUTEROL/IPRATROPIUM NEB INH SCH (21:00)
[2016-10-11] MEDS ORDERED: GLUCOSE 10 TABS/TUBE PO PRN (21:00)
[2016-10-11] MEDS ORDERED: GLUCOSE 40% GEL 15 GM TUBE PO PRN (21:00)
[2016-10-11] MEDS ORDERED: GLUCAGON FOR INJ 1 MG VIAL SQ PRN (21:00)
[2016-10-11] MEDS ORDERED: PIPERACILL/TAZOBAC IV 3.375 GM in DEXTROSE 5% 100ML IV STA (21:35)
--- NOTE | 2016-10-11 21:39 | HISTORY & PHYSICAL EXAMINATION ---
DATE OF ADMISSION: 10/11/2016 CHIEF COMPLAINT: Shortness of breath. HISTORY OF PRESENT ILLNESS: This is a 76-year-old male with past medical history of COPD, chronic kidney disease stage III, type 1 diabetes, asthma, history of asbestos exposure, history of hypertension, history of BPH and obstructive uropathy, history of atrial fibrillation, no longer on Coumadin, nocturnal hypoxia use oxygen at the nighttime, chronic stasis dermatitis, hyperlipidemia, who presents with shortness of breath. The patient says since last 3 days ago, he felt short of breath and is coughing up whitish phlegm and started his rescue kit with prednisone and Levaquin, but not much improvement, so he went to see his family doctor and was having tachycardia and he was advised to come to the ER. In the ER, the patient was able to talk in sentences. The patient uses oxygen 2 liters at night time, but last 3 days using it all through the day. The patient is having AFib/ AFlutter in the rate of 130s, seemed comfortable. He has some lower extremity edema. The patient says he was on Lasix daily before, but lately his family doctor changed it to every other day since then he is developing some lower extremity edema. He says even though he is short of breath, he was ambulating fine.He also has history of exposure to asbestos. He was in the hospital in July 2016 and underwent an uncomplicated robot-assisted thoracoscopy surgery with a partial pleurectomy and lung biopsy and pathology results of those here showed possible interstitial lung disease and those pathology was sent to [facility], where the [facility] report says the patient has organizing aspiration pneumonia with central local granulomatous and foreign material, superimposing on severe respiratory bronchiolitis with emphysematous change and also says 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 Celina castaneda. ALLERGIES: DILTIAZEM PROPOXYPHENE, SALICYLATE, LISINOPRIL. PAST MEDICAL HISTORY: As mentioned above. PAST SURGICAL HISTORY: Colonoscopy with hyperplastic polyp removal, skull surgery for left temporoparietal abnormality. Needle blunt biopsy of the prostate, nasal polypectomy, inguinal hernia repair. MEDICATIONS: The patient is on ipratropium mixed with levalbuterol nebulization q.i.d. p.r.n., Spiriva Respimat 2 puffs once daily, albuterol nebulization every 4-6 hours as needed, prednisone rescue kit, tramadol 50 mg p.o.q. 8 hours p.r.n., Lasix 20 mg p.o. daily, zolpidem 5 mg p.o. at bedtime p.r.n., nitroglycerin 0.4 mg p.r.n., Levaquin rescue kit, Dulera 250/5 mcg inhalation 2 puffs b.i.d., Flomax 0.4 mg p.o. at bedtime, Zantac 150 mg p.o. b.i.d., Levemir 14 unit in a.m. and 8 unit in p.m., simvastatin 20 mg p.o. at bedtime, Flonase 50 mcg two sprays in each nostril daily, losartan 50 mg p.o. daily, Proscar 5 mg p.o. daily, aspirin 81 mg p.o. daily, cyclobenzaprine 1 pill t.i.d. p.r.n. FAMILY HISTORY: Significant for father had esophageal cancer, of complication of operations in 1950s. Mother had cancer, of unknown cancer at age of 72. Brother has asthma. Another brother has diabetes. Uncle has stroke. SOCIAL HISTORY: , former smoker, smoked 2 packs a day for 40 years, quit smoking in 1995. Alcohol occasionally. No drug use. REVIEW OF SYMPTOMS: As per HPI. Rest of review of symptoms negative. PHYSICAL EXAMINATION: GENERAL: The patient is of moderate build, not in distress. VITAL SIGNS: Temperature 36.9, pulse in 120s-130s, respiratory rate 18, blood pressure 152/112, oxygen 95% on 3 liters. HEENT: No pallor, no icterus. Pupils are equal, round, and reactive to light. NECK: No JVD, no neck masses, no carotid bruits. CARDIOVASCULAR: S1, S2 heard, tachycardia, irregular rhythm . No murmur. RESPIRATORY SYSTEM: Normal AP diameter. No accessory muscle use. Occasional wheezing, no crackles. ABDOMEN: Soft, bowel sounds present. Nontender. No distention. CENTRAL NERVOUS SYSTEM: Cranial nerves II-XII are grossly intact. Nonfocal. EXTREMITIES: Bilateral lower extremity pedal edema present. No erythema seen. LABORATORIES: WBC is 8.8, hemoglobin 11.5, hematocrit 35.1, platelets 197. Sodium 142, potassium 5, chloride 110, bicarb 23, BUN 47, creatinine 1.9, serum glucose 238, calcium 8.8, magnesium 2, total bilirubin 0.5, AST 9, ALT 18, alkaline phosphatase 91. Troponin I 0.03. BNP 1831. TSH 1.1. D-dimer 270. INR 1, PT 10.7. IMAGING DATA: EKG: A-Flutter with a rate of 142, nonspecific T-wave abnormalities seen. Chest x-ray: Right lower lobe infiltrate seen and emphysematous changes. ASSESSMENT AND PLAN: This is a 76-year-old male, who presents with chronic obstructive pulmonary disease exacerbation and rapid atrial fibrillation. 1. Chronic obstructive pulmonary disease exacerbation, mostly secondary to right lower lobe pneumonia, failed outpatient treatment with prednisone and Levaquin. We will place him on IV Zosyn and . azithromycin. We will do mrsa nasal swab.Place him on IV Solu-Medrol 40 t.i.d., nebs around the clock and p.r.n. In July 2016, the patient had the right upper and lower lobes biopsies and done with pleurectomy. At that time, study shows chronic aspiration pneumonia, but patient says he recently had a swallow study which was unremarkable, but we will consult speech evaluation again and pulmonary evaluation. Close monitor on tele floor.Lung biopsy also showed small vessel thromboembolic pulmonary hypertension. Will d/w Pulmonary. 2. Rapid atrial fibrillation: The patient has history of atrial fibrillation, was on Coumadin in the past, but patient says only he gets rapid atrial fibrillation only on several months whenever his breathing is compromised and he was taken off of his Coumadin by his mending carrier, as per him because he does not get an atrial fibrillation all the time. We will place him on IV heparin. Follow serial cardiac enzymes, and echocardiogram and place him on IV Lopressor p.r.n. We will give a dose of digoxin.Consult cardiology in am. 3. Acute renal failure and chronic kidney disease. Baseline creatinine around 1.5-1.8, presented with creatinine of 1.9. we will follow the labs, avoid nephrotoxic agents. 4. Mild acute on chronic diastolic congestive heart failure. The patient was supposed to be on Lasix 20 mg daily, but lately it was changed to every other day. Had a dose of IV Lasix in the ER. We will continue the oral Lasix 20 mg daily and follow echocardiogram. 5. History of hypertension. Continue use of home medication of losartan and follow his blood pressure. 6. History of benign prostatic hypertrophy. Continue his Flomax and Proscar. 7. GERD Continue Zantac. 8. Hyperlipidemia. Continue Zocor. 9. Diabetes. Close monitor of his blood sugars. The patient is on steroids. Continue his Levemir and we will place him on insulin sliding scale, consult pharmacy for glycemic management. 10. Deep venous thrombosis prophylaxis. on IV heparin. 11. Disposition. Close monitoring on tele floor. Level 1 full code only if there is a chance of recovery. MTDD
[2016-10-11] MEDS ORDERED: PIPERACILL/TAZOBAC CONSULT ACTIVE PRN (21:45)
[2016-10-11] MEDS ORDERED: LEVALBUTEROL 1.25MG/0.5ML NEB INH PRN (22:00)
[2016-10-11] MEDS ORDERED: IPRATROPIUM BROMIDE NEB SOLN 0.02% 2.5 ML VIAL INH PRN (22:00)
[2016-10-11] MEDS ORDERED: DIGOXIN IV 125 MCG in SYRINGE 9.5 ML IV STA (22:04)
[2016-10-11 22:08] VITALS: BP 133/105; PULSE 116; TEMP 36.6; O2SAT 97
[2016-10-11] MEDS: INSULIN DETEMIR FLEXPEN/FLEX TOUCH 100 UNITS/ML 3ML SC SCH (23:09)
[2016-10-11] MEDS: INSULIN ASPART 100 UNITS/ML 3 ML PEN SC SCH (23:11)
[2016-10-11 23:35] VITALS: BP 129/83; PULSE 131; TEMP 36.5; O2SAT 91
[2016-10-11] MEDS: AZITHROMYCIN IV 500 MG in DEXTROSE 5% 250ML 250 ML IV SCH (23:56)
[2016-10-11 23:59] VITALS: O2SAT 96
[2016-10-12] VITALS (10 sets, daily range): BP systolic 92–147; BP diastolic 59–90; PULSE 44–116; TEMP 36.4–36.8; O2SAT 90–96; BMI 26.4
[2016-10-12] MEDS: INSULIN ASPART 100 UNITS/ML 3 ML PEN SC SCH ×6 (00:07→21:18)
[2016-10-12] MEDS: IPRATROPIUM BROMIDE NEB SOLN 0.02% 2.5 ML VIAL INH SCH ×2 (02:00→07:23)
[2016-10-12] MEDS: LEVALBUTEROL 1.25MG/0.5ML NEB INH SCH ×2 (02:00→07:23)
[2016-10-12 02:45] LABS: PARTIAL THROMBOPLASTIN RATIO 1.4
[2016-10-12] MEDS ORDERED: HEPARIN IV BOLUS 4,500 UNIT in SYRINGE 0 ML IV STA (03:15)
[2016-10-12] MEDS: METHYLPREDNISOLONE IV 40 MG in SYRINGE 0 ML IV SCH ×2 (04:46→11:34)
[2016-10-12] MEDS: PIPERACILL/TAZOBAC IV 3.375 GM in DEXTROSE 5% 100ML 100 ML IV SCH ×2 (04:46→11:34)
[2016-10-12 05:02] LABS: COMPLETE YES; HEMATOCRIT 38.1 % (42-52); IG% 0.3 %; LYMPH % 6.4 %; LYMPH ABS # 0.69 K/uL (1.2-3.4); MEAN CELL VOLUME 85.8 fL (80-100); MEAN CORPUSCULAR HEMOGLOBIN 27.3 pg (25-34); MEAN CORPUSCULAR HGB CONC 31.8 g/dl (32-36); MEAN PLATELET VOLUME 10.4 fL (7.4-10.4); MONO % 3.2 %; NEUT % 90.1 %; PLATELET COUNT 217 K/uL (130-400); RED BLOOD COUNT 4.44 M/uL (4.7-6.1); WHITE BLOOD COUNT 10.73 K/uL (4.8-10.8)
[2016-10-12 05:32] LABS: CREATININE 2.1 mg/dl (0.60-1.40)
[2016-10-12 05:33] LABS: BUN/CREATININE RATIO 24.7 (10-20); CALCIUM 9.1 mg/dl (8.5-10.1); POTASSIUM 4.5 mmol/L (3.5-5.1)
[2016-10-12 05:35] LABS: PARTIAL THROMBOPLASTIN RATIO 6.1
[2016-10-12 05:38] LABS: CKMB/CK RATIO 5.8 (0-3.0)
[2016-10-12 06:56] LABS: ESTIMATED AVERAGE GLUCOSE 200 mg/dl; HA1C FLAG Normal (Normal)
[2016-10-12] MEDS: MULTIVITAMIN TAB PO SCH (07:49)
[2016-10-12] MEDS: LOSARTAN POTASSIUM 50 MG TAB PO SCH (07:49)
[2016-10-12] MEDS: INSULIN DETEMIR FLEXPEN/FLEX TOUCH 100 UNITS/ML 3ML SC SCH ×2 (07:51→21:18)
[2016-10-12] MEDS: ASPIRIN 81 MG ECTAB PO SCH (07:52)
[2016-10-12] MEDS: RANITIDINE HCL 150 MG TAB PO SCH ×2 (07:52→21:14)
[2016-10-12] MEDS: DOCUSATE SODIUM 100 MG CAP PO SCH ×2 (07:52→21:14)
[2016-10-12] MEDS: FLUTICASONE PROPIONATE NA SPR 16 GM BTL NAE SCH (07:53)
[2016-10-12] MEDS ORDERED: METOPROLOL TARTRATE 1 MG/ML VIAL IV STA (08:56)
[2016-10-12] MEDS ORDERED: TIOTROPIUM BROMIDE 5 PUFF/90 MCG INH INH SCH (09:00)
[2016-10-12] MEDS ORDERED: CHOLECALCIFEROL 1000 INTER.UNIT TAB PO SCH (09:00)
--- NOTE | 2016-10-12 09:51 | PULMONARY CONSULTATION ---
DATE OF CONSULTATION: 10/12/2016 DATE OF CONSULTATION: 10/12/2016. TIME: 8:45 a.m. REPORT OF CONSULTATION: The patient was seen in room 240, bed 2. He is a 76-year-old male who was admitted yesterday with a chief complaint of shortness of breath. He has noticed a significant increase in his cough for the past 3 days. It was generally nonproductive with a scant amount of clear phlegm. He has not coughed up any blood. He would get short of breath at times of coughing spells or also with any exertion. At rest he was not terribly uncomfortable. He started a rescue pack that he had received from his primary doctor and he was taking Levaquin and prednisone. He was not feeling better. The patient went to his family doctor's office yesterday. He was found to have an oxygen saturation of only 81%. He had taken his portable oxygen with him, but he ran out of the O2. He also had a rapid heart rate. At the time of initial presentation to the ER, his heart rate was 142 and he was in atrial flutter at that time. Subsequently, he has converted to atrial fibrillation. He has had paroxysmal atrial fibrillation in the past. The patient carries a history of chronic lung disease. He actually underwent a lung biopsy in July of this year by Dr. Lindsey. This was done by thoracoscopy. It was a very complicated biopsy report. It was sent to [facility] for a second opinion. The end result was that the patient was felt to have emphysema. He had severe respiratory bronchiolitis. He had what appeared to be organized aspiration pneumonia. He did have pleural plaques. He had small vessel thromboembolic pulmonary hypertension. Subsequently, the patient did have a VQ scan done in August, which was indeterminant for pulmonary embolism. He had venous Dopplers done that were negative. The patient is not aware of having blood clots in his lung in the past. He did have a history of asbestos exposure. 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 He had developed calcified pleural plaques on his x-ray and CAT scan which typically is associated with asbestos exposure. The patient is feeling better today. He is much less short of breath. His cough is also significantly diminished. He is now able to take a deep breath without coughing. The patient in the past had been cared for by Dr. Graves and more recently he has been seeing Dr. Patrick. PAST SURGICAL HISTORY: 1. Nasal polypectomy. 2. Inguinal hernia repair. 3. Neurosurgery in the for relieving of pressure on the brain. 4. Thoracoscopy July 2016. PAST MEDICAL HISTORY: 1. Benign prostatic hypertrophy with obstructive uropathy. 2. Chronic kidney disease. 3. Hypertension. 4. Diabetes. 5. Hyperlipidemia. 6. Basal cell carcinoma. 7. Paroxysmal atrial fibrillation. 8. Reflux. 9. Stasis dermatitis. SOCIAL HISTORY: Tobacco 2 packs per day for 40 years but none since 1995. FAMILY HISTORY: The patient's mother at age 72 with some type of cancer, site unknown. Father from esophageal cancer. One brother has diabetes and 1 had asthma. ALLERGIES: DILTIAZEM, ASPIRIN, LISINOPRIL, PROPOXYPHENE. REVIEW OF SYSTEMS: In addition to the above-mentioned complaints, the patient has had severe rhinorrhea. He states it has improved since he is admitted, presumably from the steroids. He has been using steroid nasal spray without dramatic benefit. He has had a little bit of postnasal drip. He has a history of some heartburn but is on medicines and not having any issues. He did have a swallow study done recently that was negative. His appetite is good. His energy level has been good. He denies bowel complaints. His urinary stream is slower since being placed on Spiriva. He typically has nocturia x3. The patient does snore. He has never been told by his that he stops breathing. He typically has 3 nocturnal awakenings to go to the bathroom. His time of going to bed is between 11 and 12 and his time of getting up is between 6 and 7. He denies excessive daytime somnolence. The patient has had some degree of chronic edema. This was well controlled when Lasix was taken daily. Because of renal insufficiency the Lasix was decreased to every other day and he seems to have a little swelling at that dosage. The remainder of review of systems is otherwise negative. Ten systems were reviewed. PHYSICAL EXAMINATION: GENERAL: The patient is a 76-year-old male who was cooperative, alert and oriented. The patient appeared comfortable. He was not in distress. He did not cough during the exam. Having said that, his room air oxygen saturation at the time of my exam was only 86%. HEAD, EYES, EARS, NOSE, AND THROAT: Eye exam showed evidence of prior cataract surgery with implants. Nasal passages were unremarkable. Mouth exam showed dentures on top and bottom. Pharynx was a Mallampati grade 2. NECK: Palpation of the neck reveals no lymph nodes or masses. CHEST: Normal expansion and development. VITAL SIGNS: Temperature is 36.4, heart rate currently is 124. The rhythm is atrial fibrillation. Blood pressure is 140/90. Auscultation of the lung raymond reveals decreased breath sounds on the right compared with the left. No wheezes, rales or rhonchi were heard however. As noted, the saturation on room air was 86%. His respiratory rate was 18 breaths per minute. ABDOMEN: Inspection of the abdomen reveals a small umbilical hernia. Bowel sounds were well heard throughout. There was no tenderness to palpation, masses or organomegaly. He does have a scar on the right side in the upper abdomen that appears to have been one of the scars from the recent thoracoscopy. The other two scars are laterally on the chest. EXTREMITIES: Revealed +1 edema in the right lower extremity with just trace on the left. There was no cyanosis or clubbing. IMAGING: The patient's chest x-ray shows emphysematous changes and chronic fibrotic changes. Pleural thickening was noted. There was a small infiltrate at the right lung base. The patient had a video swallow done 10/05/2016 that was negative. Venous Dopplers were done 09/05/2016, these were negative. VQ scan 09/05/2016 was indeterminant. LABORATORY DATA: White count today is 10.73. Hemoglobin is 12.1. Platelets are 217,000. PTT this morning was 157.8. D-dimer was 270. INR yesterday was 1. Electrolytes today show sodium 141, potassium 4.5, chloride 105, bicarb 27. BUN was 52 with a creatinine of 2.1. The prior BUN was 47 with a creatinine of 1.9. Blood sugar this morning was 405. ProBNP was 1831. Taking into account the patient age, this is mildly elevated. TSH was 1.12. Liver functions were unremarkable. IMPRESSIONS: 1. Right lower lobe infiltrates -- suspect community-acquired pneumonia. 2. Emphysema. 3. Interstitial lung disease. 4. 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 5. Atrial fibrillation with rapid ventricular response. 6. Possible pulmonary hypertension based upon biopsy report. COMMENTS: The patient is clinically much improved today. His breathing is better. He is still hypoxic. His cough is much improved. There are a few issues to be considered. From a pulmonary perspective, we probably should discontinue the Spiriva in light of his weakened urinary stream since he is on this medicine and the fact that he has renal insufficiency with a prior obstructive uropathy. His blood sugars are very elevated. In light of the improvement, I believe that the methylprednisolone can be adjusted downward. The patient's cardiac status reflects rapid ventricular response rate. He is awaiting a cardiac evaluation. He usually sees Dr. Carrillo. I believe they may need to consider long-term anticoagulation. The patient has had paroxysmal atrial fib and he snores. In all likelihood, he should ultimately have a sleep study to determine whether or not he has sleep apnea contributing to the arrhythmia problem. Thank you for asking me to assist in his care.
[2016-10-12 09:52] LABS: PARTIAL THROMBOPLASTIN RATIO 1.1
[2016-10-12] MEDS: METOPROLOL TARTRATE 25 MG TAB PO SCH ×2 (10:03→21:00)
[2016-10-12] MEDS: HEPARIN 25,000 UNIT/500ML D5W 500 ML IV PRN ×2 (10:43→17:24)
--- NOTE | 2016-10-12 11:24 | Cardiology Consultation ---
Cardiology Consultation Date of Consultation: Oct 12, 2016 Requesting Physician: Katy Attending Customer Expert: Rafael (Kg Perez PA-C) History of Present Illness History of Present Illness: Mr. Matt Plata is a 76-year-old male who is being seen in cardiology consultation at the request of Dr. Burns. Reason for consultation is atrial fibrillation with a rapid ventricular response. The patient's primary special effects designer is Dr. Fercho Carrillo. Mr. Plata notes development of phlegm a couple of days ago. This quickly progressed to a cough "that became nasty." He then observed hypoxemia wiht the increasing cough as well as increased in heart rates via his home pulse oximeter. Utilization of his Rescue Kit (Prednisone and Levaquin) did not provide relief. He was seen by his PCP, Dr. Monte, and referred to the ER where he was found to have recurrent atrial fibrillation with a rapid ventricular response. He was given IV lopressor, Solu-Medrol, and 40 mg IV furosemide with improvement in his presenting symptoms. Metoprolol tartrate and heparin were started for the atrial fibrillation. Mr. Plata notes that he is typically aware of when he goes in to atrial fibrillation. He describes increased heart rates on occasion, typically for a couple of hours, aided by sitting back and relaxing. He reports past poor tolerance to diltiazem and verapamil ("killed my energy level"). This morning he states that he feels considerably better in regards to his dyspnea, cough, and congestion. He denies chest pain or overt palpitations. No orthopnea or PND. No lightheadedness, dizziness, near syncope, or syncope. No history of VA, CAD, CHF, heart murmur rheumatic fever, or scarlet fever. 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 Followed by Dr. Patrick. History of tobacco abuse Stage III chronic kidney disease Benign prostatic hypertrophy Dyslipidemia Hernia repair Nasal polypectomy Prostate biopsy Family History: Mother with an unknown cancer in her early 70's. Father at 57 with what sounds like urosepsis following surgery. Two brothers. One is 10 years old with emphysema. One is 8 years older with diabetes mellitus. One sister had an VA in her 40's. Social History: Reformed smoker. Started at the age of 15. Quit at the age of 61. He notes smoking up to 2 ppd. Reformed moderate alcohol consumption, currently drinking one glass of wine 1-2 days per week. No illegal drug use. x 60 years. Five children. One son 15 years old with metastatic colon cancer. Four living children, one son with atrial fibrillation post ablation. 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 (Kg Perez PA-C) Review Of Systems General: Right greater than left lower extremity edema, recently aggravated following reduction in furosemide to every other day due to worsening renal dysfunction per patient report. Stable weight. No current fever. No chills. HEENT: Bilateral cataract extractions. Glaucoma. Reading glasses. Dentures. No headache. No head trauma. Cardiovascular: See above. Pulmonary: Emphysema. Chronic oxygen therapy. Home SP02 monitor. No history of sleep apnea. Gastrointestinal: No nausea, vomiting, or diarrhea Renal: CKD stage 3, followed by Dr. Zaidi Skin: No rash. Musculoskeletal: Arthritis. Neurological: No history of TIA, CVA, or seizures Complete review of systems is as stated above, negative, or noncontributory. (Kg Perez PA-C) Allergies Coded Allergies: Diltiazem (Verified Allergy, Mild, RASH, 10/11/16) Aspirin (Verified Adverse Reaction, Mild, GI SYMPTOMS, 10/11/16) Lisinopril (Verified Adverse Reaction, Unknown, cough, 10/11/16) Propoxyphene (Verified Adverse Reaction, Unknown, STOMACH UPSET DIARRHEA, 10/11/16) Medications Reported Home Medications Medications Dose Route/Sig Max Daily Dose Days Date Category Dose Instructions Cozaar (Losartan Potassium) 50 Mg Tab 50 Mg PO DAILY 10/11/16 Rx Spiriva Respimat (Tiotropium Boykins Monohydrate) 2.5 Mcg/Act Spr 2 Puffs INH DAILY 10/11/16 Rx Tramadol HCl 50 Mg Tab 1 Tab PO TID PRN 10/11/16 Rx Prednisone 10 Mg Tab 0 PO UD 4 10/11/16 Reported STERAPRED 10MG 12 DAY Novolog Flexpen (Insulin Aspart) 100 Units/Ml Inj 1 Dose SQ ACHS 10/11/16 Reported SLIDING SCALE. APPROX 10UNITS BID Vitamin D3 (Cholecalciferol) 2,000 Unit Cap 1 Cap PO DAILY 10/11/16 Reported Ranitidine HCl 150 Mg Tab 1 Tab PO BID 10/11/16 Reported Atrovent 0.02% Soln (Ipratropium Boykins) 2.5 Ml Nebu 1 Dose NEB QID 10/11/16 Reported Levaquin (Levofloxacin) 500 Mg Tab 1 Tab PO DAILY 10/11/16 Reported Fluticasone Propionate 120 Sprays/6000 Mcg Inha 2 Sprays ALDEN DAILY 10/11/16 Reported Docusate Sodium 100 Mg Cap 100 Mg PO BID 30 08/10/16 Rx Glucosamine Chondroitin (Mlryefxsyqt-Fggxepyvfdh-Woa C-) 1 Tab Tab 1 Tab PO QAM 07/24/16 Reported Duoneb (Ipratropium-Albuterol) 3 Ml Nebu 1 Treatment INH Q4H PRN 07/24/16 Reported Dulera 200/5 Mcg (Mometasone Furoate-Formoterol) 1 Aer Aer 2 Puffs INH BID 30 07/24/16 Reported Multivitamin (Multivitamins) Tab 1 Tab PO QAM 06/29/16 Reported Tylenol (Acetaminophen) 500 Mg Tab 1,000 Mg PO DIRECTED PRN 06/29/16 Reported Ambien (Zolpidem Tartrate) 5 Mg Tab 5-10 Mg PO HS PRN 05/14/16 Reported Levemir (Insulin Detemir) 100 Units/Ml Inj SQ UD 05/14/16 Reported 14 units in am and 8 units in pm Aspirin 81 (Aspirin) 81 Mg Tab 81 Mg PO QAM 10/16/15 Reported Lasix (Furosemide) 20 Mg Tab 20 Mg PO Q2D 09/18/14 Reported AM Flomax (Tamsulosin Hcl) 0.4 Mg Cap 0.4 Mg PO HS 09/18/14 Reported Zocor (Simvastatin) 20 Mg Tab 20 Mg PO QPM 12/11/08 Reported take with supper (Chris,Kg, PA-C) Physical Exam Vital Signs (Last 8hrs): Last 8 Hrs Date Time Temp Pulse Resp B/P (MAP) Pulse Ox O2 Delivery O2 Flow Rate FiO2 10/12/16 09:18 130 140/90 10/12/16 08:00 Nasal Cannula 2.0 10/12/16 07:23 83 18 93 Nasal Cannula 2.0 10/12/16 07:08 36.4 116 20 140/90 (107) 94 Room Air 10/12/16 04:00 96 Nasal Cannula 3.0 10/12/16 03:40 36.6 92 18 147/77 (100) 94 Nasal Cannula 1.0 General Appearance: Alert and Oriented x3. NAD. HEENT: Normocephalic Atraumatic. Mucous membranes are quite dry. PER. EOMI. Conjunctiva and sclera clear Neck: Supple. No carotid bruits noted. Neck veins are flat. Respiratory: Decreased breath sounds. Rhonchi at both bases. Faint right lower expiratory wheeze. Cardiovascular: Somewhat distant heart sounds. Irregularly irregular around 100 bpm. No murmurs appreciated. No rub. PMI is not displaced. Abdomen: +BS. No abdominal bruits. Nontender. Extremities: Mild distal right lower extremity edema. No edema on the left. + Clubbing. No cyanosis. Distal pulses were not appreciated on the right, 1/4 on the left. Neuro: No focal deficits. Psychiatric: Normal affect. (Kg Preez PA-C) Data Last 24 Hours Test 10/11/16 16:50 10/11/16 22:57 10/12/16 00:02 10/12/16 02:20 White Blood Count 8.89 K/uL Red Blood Count 4.10 M/uL Hemoglobin 11.5 g/dL Hematocrit 35.1 % Mean Corpuscular Volume 85.6 fL Mean Corpuscular Hemoglobin 28.0 pg Mean Corpuscular Hemoglobin Concent 32.8 g/dl Platelet Count 197 K/uL Mean Platelet Volume 10.4 fL Neutrophils (%) (Auto) 91.3 % Lymphocytes (%) (Auto) 7.5 % Monocytes (%) (Auto) 1.0 % Eosinophils (%) (Auto) 0.0 % Basophils (%) (Auto) 0.1 % Neutrophils # (Auto) 8.11 K/uL Lymphocytes # (Auto) 0.67 K/uL Monocytes # (Auto) 0.09 K/uL Eosinophils # (Auto) 0.00 K/uL Basophils # (Auto) 0.01 K/uL RDW Standard Deviation 45.4 fL RDW Coefficient of Variation 14.4 % Immature Granulocyte % (Auto) 0.1 % Immature Granulocyte # (Auto) 0.01 K/uL Prothrombin Time 10.7 SECONDS Prothromb Time International Ratio 1.0 Activated Partial Thromboplast Time 25.9 SECONDS 37.1 SECONDS Partial Thromboplastin Ratio 1.0 1.4 D-Dimer 270 ug/L FEU Sodium Level 142 mmol/L Potassium Level 5.0 mmol/L Chloride Level 110 mmol/L Carbon Dioxide Level 23 mmol/L Anion Gap 9.0 mmol/L Blood Urea Nitrogen 47 mg/dl Creatinine 1.90 mg/dl Est Creatinine Clear Calc Drug Dose 35.2 ml/min Estimated GFR () 38.3 Estimated GFR (Non- 33.0 BUN/Creatinine Ratio 24.8 Random Glucose 238 mg/dl Calcium Level 8.8 mg/dl Magnesium Level 2.0 mg/dl Total Bilirubin 0.5 mg/dl Aspartate Amino Transf (AST/SGOT) 9 U/L Alanine Aminotransferase (ALT/SGPT) 18 U/L Alkaline Phosphatase 91 U/L Troponin I 0.032 ng/ml Pro-B-Type Natriuretic Peptide 1831 pg/ml Total Protein 7.1 gm/dl Albumin 3.6 gm/dl Globulin 3.5 gm/dl Albumin/Globulin Ratio 1.0 Thyroid Stimulating Hormone (TSH) 1.120 uIu/ml Bedside Glucose 368 mg/dl 405 mg/dl Test 10/12/16 04:41 10/12/16 04:45 10/12/16 06:44 10/12/16 09:37 Bedside Glucose 170 mg/dl 172 mg/dl White Blood Count 10.73 K/uL Red Blood Count 4.44 M/uL Hemoglobin 12.1 g/dL Hematocrit 38.1 % Mean Corpuscular Volume 85.8 fL Mean Corpuscular Hemoglobin 27.3 pg Mean Corpuscular Hemoglobin Concent 31.8 g/dl Platelet Count 217 K/uL Mean Platelet Volume 10.4 fL Neutrophils (%) (Auto) 90.1 % Lymphocytes (%) (Auto) 6.4 % Monocytes (%) (Auto) 3.2 % Eosinophils (%) (Auto) 0.0 % Basophils (%) (Auto) 0.0 % Neutrophils # (Auto) 9.67 K/uL Lymphocytes # (Auto) 0.69 K/uL Monocytes # (Auto) 0.34 K/uL Eosinophils # (Auto) 0.00 K/uL Basophils # (Auto) 0.00 K/uL RDW Standard Deviation 44.5 fL RDW Coefficient of Variation 14.2 % Immature Granulocyte % (Auto) 0.3 % Immature Granulocyte # (Auto) 0.03 K/uL Activated Partial Thromboplast Time 157.8 SECONDS 27.8 SECONDS Partial Thromboplastin Ratio 6.1 1.1 Sodium Level 141 mmol/L Potassium Level 4.5 mmol/L Chloride Level 105 mmol/L Carbon Dioxide Level 27 mmol/L Anion Gap 9.0 mmol/L Blood Urea Nitrogen 52 mg/dl Creatinine 2.10 mg/dl Est Creatinine Clear Calc Drug Dose 31.8 ml/min Estimated GFR () 33.9 Estimated GFR (Non- 29.3 BUN/Creatinine Ratio 24.7 Random Glucose 177 mg/dl Estimated Average Glucose 200 mg/dl Hemoglobin A1c 8.6 % Calcium Level 9.1 mg/dl Magnesium Level 2.0 mg/dl Total Creatine Kinase 65 U/L Creatine Kinase MB 3.8 ng/ml Creatine Kinase MB Ratio 5.8 Troponin I 0.023 ng/ml Admission CXR: Emphysematous and chronic fibrotic/pleural thickening changes. Minimal superimposed parenchymal infiltrate right base. As per Dr. Pablo EKG dated and timed 11-OCT-2016 @ 16:36:32: Atrial flutter with variable A-V block. Left anterior fascicular block. Nonspecific ST and T wave abnormality. When compared with ECG of 29-JUN-2016 20:59, atrial flutter has replaced sinus rhythm. Vent. rate has increased BY 64 BPM Confirmed by KELLI DESHPANDE ([id number]) on 10/11/2016 10:37:49 PM EKG dated and timed 12-OCT-2016 @ 06:15:13: Atrial fibrillation with rapid ventricular response. Left anterior fascicular block. When compared with ECG of 11-OCT-2016 16:36, atrial fibrillation has replaced atrial flutter. Non- specific change in ST segment in Lateral leads. Confirmed by KELLI DESHPANDE ([id number]) on 10/12/2016 9:30:48 AM Telemetry: Atrial fibrillation with a rapid ventricular response. No periods of sinus. No significant macy events or pauses thus far. TTE: Pending. 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 Heparin to Coumadin Recommend halfway anticoagulation as discussed today Chronic right greater than left lower extremity edema Suspect multifactorial in etiology - atrial fibrillation, diastolic dysfunction, renal dysfunction, recent reduction in furosemide dosing Recommend resumption of oral furosemide 20 mg/day Hypertension. Follow. Hyperlipidemia. Continue simvastatin DVT prophylaxis. IV heparin. Routine outpatient cardiology follow-up is currently scheduled with Dr. Fercho Carrillo Jr at 9:05 AM on 12/20/2016. (Kg Perez PA-C) Cardiology Attending Physician: Patient seen and examined at the bedside. Feeling better since admission. Admitted with COPD exacerbation and AF with RVR. Metoprolol and IV heparin ordered. Heart rate improved. Patient denies CP or palpitations. LE edema improved with diuretic therapy. PE: VSS, Gen: NAD, AAOx3. Heart: Irregular, borderline tachycardic. Lungs: scattered Rhonchi, No wheeze. Abd: soft, NT, + BS. Ext: B/L LE edema R>L. A/P: Agree with above PARitaC history, physical exam, assessment, and plan. Discussed indication for extermination inspector anticoagulation at length. Patient agreeable to short term anticoagulation at this time. Resume oral furosemide. Follow telemetry. Will continue to follow during hospitalization. Teofilo Hall DO, FACC (Stan Hall DO)
[2016-10-12] MEDS ORDERED: INSULIN HUMAN REGULAR PER UNIT 5 UNITS in SYRINGE 4.95 ML IV SCH (12:30)
--- NOTE | 2016-10-12 14:12 | Progress Note ---
Medicine Progress Note Date & Time of Visit: Oct 12, 2016 at 13:42. Subjective 76 yoM presents with worsening shortness of breath and rapid atrial fibrillation , found to have RLL pneumonia. -clincially improved since yesterday -still using supplemental oxygen -tolerating PO -denies swelling in his legs -some coughing present that is non-productive. -discussed recent pleural biopsies, the anterior R one causes some rib discomfort on occasion. -denies palpitations or chest pain. Objective Last 8 Hrs Date Time Temp Pulse Resp B/P (MAP) Pulse Ox O2 Delivery O2 Flow Rate FiO2 10/12/16 12:00 Nasal Cannula 2.0 10/12/16 11:33 106/72 (83) 10/12/16 11:15 36.6 73 16 92/66 (75) 95 2.0 10/12/16 09:18 130 140/90 10/12/16 08:00 Nasal Cannula 2.0 10/12/16 07:23 83 18 93 Nasal Cannula 2.0 10/12/16 07:08 36.4 116 20 140/90 (107) 94 Room Air Physical Exam: GEN: WNWD, in no acute distress, alert and appropriate, on oxygen HEENT: NC/AT, normal sclerae, MMM CARDIO: reg rate, S1/2 heard without m/g/r, trace swelling of RLE, no edema or swelling in the LLE LUNGS: clear to auscultation with some decreased breath sounds at the R base, along with rales in this area. No wheezing heard ABD: soft, non-tender, non-distended, no rebound or guarding, +BS EXTREMITY: warm and well-perfused. NEURO: CN 2-12 grossly intact, no gross focal deficits. MUSC: moves all extremities equally SKIN: warm and dry Laboratory Results: 10/12/16 04:45 Red Blood Count 4.44, Mean Corpuscular Volume 85.8, Mean Corpuscular Hemoglobin 27.3, Mean Corpuscular Hemoglobin Concent 31.8, Mean Platelet Volume 10.4, Neutrophils (%) (Auto) 90.1, Lymphocytes (%) (Auto) 6.4, Monocytes (%) (Auto) 3.2, Eosinophils (%) (Auto) 0.0, Basophils (%) (Auto) 0.0, Neutrophils # (Auto) 9.67, Lymphocytes # (Auto) 0.69, Monocytes # (Auto) 0.34, Eosinophils # (Auto) 0.00, Basophils # (Auto) 0.00 10/12/16 04:45 Test 10/11/16 16:50 10/12/16 04:45 10/12/16 09:37 10/12/16 11:26 Prothrombin Time 10.7 SECONDS (9.0-12.0) Prothromb Time International Ratio 1.0 (0.9-1.1) D-Dimer 270 ug/L FEU (0-500) Total Bilirubin 0.5 mg/dl (0.2-1) Aspartate Amino Transf (AST/SGOT) 9 U/L (15-37) Alanine Aminotransferase (ALT/SGPT) 18 U/L (12-78) Alkaline Phosphatase 91 U/L (45-117) Pro-B-Type Natriuretic Peptide 1831 pg/ml (0-1800) Total Protein 7.1 gm/dl (6.4-8.2) Albumin 3.6 gm/dl (3.4-5.0) Globulin 3.5 gm/dl (2.5-4.0) Albumin/Globulin Ratio 1.0 (0.9-2) Thyroid Stimulating Hormone (TSH) 1.120 uIu/ml (0.300-4.500) White Blood Count 10.73 K/uL (4.8-10.8) Red Blood Count 4.44 M/uL (4.7-6.1) Hemoglobin 12.1 g/dL (14.0-18.0) Hematocrit 38.1 % (42-52) Mean Corpuscular Volume 85.8 fL (80-100) Mean Corpuscular Hemoglobin 27.3 pg (25-34) Mean Corpuscular Hemoglobin Concent 31.8 g/dl (32-36) Platelet Count 217 K/uL (130-400) Mean Platelet Volume 10.4 fL (7.4-10.4) Neutrophils (%) (Auto) 90.1 % Lymphocytes (%) (Auto) 6.4 % Monocytes (%) (Auto) 3.2 % Eosinophils (%) (Auto) 0.0 % Basophils (%) (Auto) 0.0 % Neutrophils # (Auto) 9.67 K/uL (1.4-6.5) Lymphocytes # (Auto) 0.69 K/uL (1.2-3.4) Monocytes # (Auto) 0.34 K/uL (0.11-0.59) Eosinophils # (Auto) 0.00 K/uL (0-0.5) Basophils # (Auto) 0.00 K/uL (0-0.2) RDW Standard Deviation 44.5 fL (36.4-46.3) RDW Coefficient of Variation 14.2 % (11.5-14.5) Immature Granulocyte % (Auto) 0.3 % Immature Granulocyte # (Auto) 0.03 K/uL (0.00-0.02) Anion Gap 9.0 mmol/L (3-11) Est Creatinine Clear Calc Drug Dose 31.8 ml/min Estimated GFR () 33.9 Estimated GFR (Non- 29.3 BUN/Creatinine Ratio 24.7 (10-20) Estimated Average Glucose 200 mg/dl Hemoglobin A1c 8.6 % (4.5-5.6) Calcium Level 9.1 mg/dl (8.5-10.1) Magnesium Level 2.0 mg/dl (1.8-2.4) Activated Partial Thromboplast Time 27.8 SECONDS (21.0-31.0) Partial Thromboplastin Ratio 1.1 Bedside Glucose 323 mg/dl (70-99) Test 10/12/16 12:40 Total Creatine Kinase 48 U/L (39-308) Creatine Kinase MB 2.9 ng/ml (0.5-3.6) Creatine Kinase MB Ratio 6.0 (0-3.0) Troponin I 0.024 ng/ml (0-0.045) Last 24 Hours Test 10/11/16 16:50 10/11/16 22:57 10/12/16 00:02 10/12/16 02:20 White Blood Count 8.89 K/uL Red Blood Count 4.10 M/uL Hemoglobin 11.5 g/dL Hematocrit 35.1 % Mean Corpuscular Volume 85.6 fL Mean Corpuscular Hemoglobin 28.0 pg Mean Corpuscular Hemoglobin Concent 32.8 g/dl Platelet Count 197 K/uL Mean Platelet Volume 10.4 fL Neutrophils (%) (Auto) 91.3 % Lymphocytes (%) (Auto) 7.5 % Monocytes (%) (Auto) 1.0 % Eosinophils (%) (Auto) 0.0 % Basophils (%) (Auto) 0.1 % Neutrophils # (Auto) 8.11 K/uL Lymphocytes # (Auto) 0.67 K/uL Monocytes # (Auto) 0.09 K/uL Eosinophils # (Auto) 0.00 K/uL Basophils # (Auto) 0.01 K/uL RDW Standard Deviation 45.4 fL RDW Coefficient of Variation 14.4 % Immature Granulocyte % (Auto) 0.1 % Immature Granulocyte # (Auto) 0.01 K/uL Prothrombin Time 10.7 SECONDS Prothromb Time International Ratio 1.0 Activated Partial Thromboplast Time 25.9 SECONDS 37.1 SECONDS Partial Thromboplastin Ratio 1.0 1.4 D-Dimer 270 ug/L FEU Sodium Level 142 mmol/L Potassium Level 5.0 mmol/L Chloride Level 110 mmol/L Carbon Dioxide Level 23 mmol/L Anion Gap 9.0 mmol/L Blood Urea Nitrogen 47 mg/dl Creatinine 1.90 mg/dl Est Creatinine Clear Calc Drug Dose 35.2 ml/min Estimated GFR () 38.3 Estimated GFR (Non- 33.0 BUN/Creatinine Ratio 24.8 Random Glucose 238 mg/dl Calcium Level 8.8 mg/dl Magnesium Level 2.0 mg/dl Total Bilirubin 0.5 mg/dl Aspartate Amino Transf (AST/SGOT) 9 U/L Alanine Aminotransferase (ALT/SGPT) 18 U/L Alkaline Phosphatase 91 U/L Troponin I 0.032 ng/ml Pro-B-Type Natriuretic Peptide 1831 pg/ml Total Protein 7.1 gm/dl Albumin 3.6 gm/dl Globulin 3.5 gm/dl Albumin/Globulin Ratio 1.0 Thyroid Stimulating Hormone (TSH) 1.120 uIu/ml Bedside Glucose 368 mg/dl 405 mg/dl Test 10/12/16 04:41 10/12/16 04:45 10/12/16 06:44 10/12/16 09:37 Bedside Glucose 170 mg/dl 172 mg/dl White Blood Count 10.73 K/uL Red Blood Count 4.44 M/uL Hemoglobin 12.1 g/dL Hematocrit 38.1 % Mean Corpuscular Volume 85.8 fL Mean Corpuscular Hemoglobin 27.3 pg Mean Corpuscular Hemoglobin Concent 31.8 g/dl Platelet Count 217 K/uL Mean Platelet Volume 10.4 fL Neutrophils (%) (Auto) 90.1 % Lymphocytes (%) (Auto) 6.4 % Monocytes (%) (Auto) 3.2 % Eosinophils (%) (Auto) 0.0 % Basophils (%) (Auto) 0.0 % Neutrophils # (Auto) 9.67 K/uL Lymphocytes # (Auto) 0.69 K/uL Monocytes # (Auto) 0.34 K/uL Eosinophils # (Auto) 0.00 K/uL Basophils # (Auto) 0.00 K/uL RDW Standard Deviation 44.5 fL RDW Coefficient of Variation 14.2 % Immature Granulocyte % (Auto) 0.3 % Immature Granulocyte # (Auto) 0.03 K/uL Activated Partial Thromboplast Time 157.8 SECONDS 27.8 SECONDS Partial Thromboplastin Ratio 6.1 1.1 Sodium Level 141 mmol/L Potassium Level 4.5 mmol/L Chloride Level 105 mmol/L Carbon Dioxide Level 27 mmol/L Anion Gap 9.0 mmol/L Blood Urea Nitrogen 52 mg/dl Creatinine 2.10 mg/dl Est Creatinine Clear Calc Drug Dose 31.8 ml/min Estimated GFR () 33.9 Estimated GFR (Non- 29.3 BUN/Creatinine Ratio 24.7 Random Glucose 177 mg/dl Estimated Average Glucose 200 mg/dl Hemoglobin A1c 8.6 % Calcium Level 9.1 mg/dl Magnesium Level 2.0 mg/dl Total Creatine Kinase 65 U/L Creatine Kinase MB 3.8 ng/ml Creatine Kinase MB Ratio 5.8 Troponin I 0.023 ng/ml Test 10/12/16 11:26 10/12/16 12:40 Bedside Glucose 323 mg/dl Total Creatine Kinase 48 U/L Creatine Kinase MB 2.9 ng/ml Creatine Kinase MB Ratio 6.0 Troponin I 0.024 ng/ml Assessment & Plan 76 yoM presents with worsening shortness of breath and rapid atrial fibrillation , found to have RLL pneumonia. 1. COPD exacerbation 2. Right lower lobe pneumonia 3. Atrial fibrillation w RVR 4. 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 CTEPH 6. CKD III 7. Chronic diastolic heart failure-compensated 8. HTN 9. BPH 10. DMII 11. GERD 12. Hyperlipidemia COPD exacerbation and rapid atrial fibrillation in the setting of RLL pneumonia. Improved after abx and steroids overnight. Still has some residual hypoxia. Seen by pulm this morning who suggested to stop the spiriva and decrease the steroids. He is currently on Azithro 500 IV and Zosyn with improvement. Will change Zosyn to Rocephin in preparation for oral meds in next 1-2 days for treatment of CAP. Will decrease Duonebs to q6hr PRN SOB/ wheezing. Changed IV methylpred to PO prednisone as there was no wheezing on exam and the patient was clinically improved in the setting of ever rising sugar on excessive steroids. Regarding his heart, he appears compensated from a heart failure standpoint and has some chronic trace edema which was started by his Addictions Counselor. He only has trace swelling on his RLE only; per Cards, we should restart this again at 50% dosage. Of note, his creatinine appears to be at baseline, which is 2.0. He was started on Metoprolol for his rapid heart rate and per Cards team, he will be started on Coumadin temporarily while in atrial fibrillation. Cont heparin drip until INR 2-3 while hospitalized. DVT proph: heparin/coumadin Full Code Dispo-cont telemetry monitoring for now. Danni Villalta DO [facility] Hospitalist Consultants: Tamra Wahl Current Inpatient Medications: Current Inpatient Medications Medications (Trade) Dose Ordered Sig/Bertha Route Start Time Stop Time Status Last Admin Dose Admin Acetaminophen (Tylenol Tab) 650 mg Q4H PRN PO 10/11/16 20:30 11/10/16 20:29 Al Hydrox/Mg Hydrox/Simethicone (Maalox Max Susp) 15 ml Q4H PRN PO 10/11/16 20:30 11/10/16 20:29 Magnesium Hydroxide (Milk Of Magnesia Susp) 30 ml Q12H PRN PO 10/11/16 20:30 11/10/16 20:29 Ondansetron HCl (Zofran Inj) 4 mg Q6H PRN IV 10/11/16 20:30 11/10/16 20:29 Nitroglycerin (Nitrostat Tab) 0.4 mg UD PRN SL 10/11/16 20:30 11/10/16 20:29 Aspirin (Ecotrin Tab) 81 mg QAM PO 10/12/16 09:00 11/11/16 08:59 10/12/16 07:52 81 MG Docusate Sodium (coLACE CAP) 100 mg BID PO 10/12/16 09:00 11/11/16 08:59 10/12/16 07:52 100 MG Fluticasone Propionate (Flonase Nasal [place]) 2 sprays DAILY ALDEN 10/12/16 09:00 11/11/16 08:59 10/12/16 07:53 2 SPRAYS Multivitamins (Multivitamin Tab) 1 tab QAM PO 10/12/16 09:00 11/11/16 08:59 10/12/16 07:49 1 TAB Ranitidine HCl (zANTac TAB) 150 mg BID PO 10/12/16 09:00 11/11/16 08:59 10/12/16 07:52 150 MG Simvastatin (Zocor Tab) 20 mg QPM PO 10/12/16 21:00 11/11/16 20:59 Tamsulosin HCl (Flomax Cap) 0.4 mg HS PO 10/12/16 21:00 11/11/16 20:59 Zolpidem Tartrate (Ambien Tab) 5 mg HS PRN PO 10/11/16 20:30 11/10/16 20:29 Miscellaneous Information (Order Awaiting Action) 1 ea QS N/A 10/12/16 00:00 11/11/16 00:00 Insulin Detemir (Levemir Flexpen/ FlexTouch) SEE PROTOCOL BID SC 10/11/16 21:00 11/10/16 20:59 10/12/16 07:51 16 UNIT Insulin Aspart (novoLOG ASPART) SLIDING SCALE G... ACHS SC 10/11/16 21:00 11/10/16 20:59 10/12/16 11:48 12 UNITS Piperacillin Sod/ Tazobactam Sod 3.375 gm/Dextrose 115 ml @ 30 mls/hr Q8H IV 10/12/16 04:00 10/19/16 03:59 10/12/16 11:34 30 MLS/HR Azithromycin 500 mg/Dextrose 255 ml @ 125 mls/hr DAILY@2200 IV 10/11/16 22:00 10/18/16 21:59 10/11/16 23:56 125 MLS/HR Methylprednisolone Sodium Succinate 40 mg/Syringe 0.64 ml @ 1.5 mls/min Q8H IV 10/12/16 04:00 11/11/16 03:59 10/12/16 11:34 1.5 MLS/MIN Metoprolol Tartrate (Lopressor Iv) 2.5 mg Q4 PRN IV 10/11/16 20:30 11/10/16 20:29 Miscellaneous Information (Consult Glycemic Management Pharmacy) 1 ea UD PRN N/A 10/11/16 20:41 11/10/16 20:40 Tramadol HCl (Ultram Tab) 50 mg TID PRN PO 10/11/16 20:45 11/10/16 20:44 Tiotropium [place] (Spiriva Handihaler Inhaler) 2 puff DAILY INH 10/12/16 09:00 11/11/16 08:59 10/12/16 07:52 2 PUFF Losartan Potassium (coZAAR TAB) 50 mg DAILY PO 10/12/16 09:00 11/11/16 08:59 10/12/16 07:49 50 MG Insulin Aspart (novoLOG ASPART) SLIDING SCALE G... 0000,0400 SC 10/12/16 00:00 11/11/16 00:00 10/12/16 00:07 12 UNITS Glucose (Glucose 40% Gel) 15-30 GRAMS 15 GRAMS... UD PRN PO 10/11/16 21:00 11/10/16 20:59 Glucose (Glucose Chew Tab) 4-8 Tablets 4 Tabl... UD PRN PO 10/11/16 21:00 11/10/16 20:59 Dextrose (Dextrose 50% 50ML Syringe) 25-50ML OF 50% DW IV FOR... UD PRN IV 10/11/16 21:00 11/10/16 20:59 Glucagon (Glucagon Inj) 1 mg UD PRN SQ 10/11/16 21:00 11/10/16 20:59 Piperacillin Sod/ Tazobactam Sod (Consult) 1 ea UD PRN N/A 10/11/16 21:45 11/10/16 21:44 Ipratropium [place] (Atrovent 0.02% 0.5MG/2.5ML Neb) 0.5 mg Q6R INH 10/12/16 03:00 11/11/16 02:59 10/12/16 07:23 0.5 MG Levalbuterol (Xopenex 1.25MG/ 0.5ML Neb) 1.25 mg Q6R INH 10/12/16 03:00 11/11/16 02:59 10/12/16 07:23 1.25 MG Levalbuterol (Xopenex 1.25MG/ 0.5ML Neb) 1.25 mg Q2R PRN INH 10/11/16 22:00 11/10/16 21:59 Ipratropium [place] (Atrovent 0.02% 0.5MG/2.5ML Neb) 0.5 mg Q2R PRN INH 10/11/16 22:00 11/10/16 21:59 Heparin Sodium/ Dextrose 500 ml @ 18 mls/hr Q24H PRN IV 10/11/16 22:45 11/10/16 22:44 10/12/16 10:43 18 MLS/HR Metoprolol Tartrate (Lopressor Tab) 25 mg BID PO 10/12/16 09:15 11/11/16 09:14 10/12/16 10:03 25 MG Cholecalciferol (Vitamin D Tab) 1,000 inter.unit DAILY PO 10/13/16 09:00 11/11/16 08:59
--- NOTE | 2016-10-12 14:54 | Pharmacy Progress Note ---
Glycemic Control: Progress Nt Date of Service Oct 12, 2016. Scope Glycemic Pharmacist consulted by Dr Burns on 10/11/16 for glycemic control and to write orders per [facility] inpatient glycemic control protocol. Objective Accuchecks BSG (last 24hrs): Test 10/11/16 16:50 10/11/16 22:57 10/12/16 00:02 10/12/16 04:41 Random Glucose 238 mg/dl (70-99) Bedside Glucose 368 mg/dl (70-99) 405 mg/dl (70-99) 170 mg/dl (70-99) Test 10/12/16 04:45 10/12/16 06:44 10/12/16 11:26 Random Glucose 177 mg/dl (70-99) Bedside Glucose 172 mg/dl (70-99) 323 mg/dl (70-99) Laboratory Data (last 24hrs) Test 10/11/16 16:50 10/12/16 04:45 Anion Gap 9.0 mmol/L 9.0 mmol/L BUN/Creatinine Ratio 24.8 24.7 Blood Urea Nitrogen 47 mg/dl 52 mg/dl Creatinine 1.90 mg/dl 2.10 mg/dl Potassium Level 5.0 mmol/L 4.5 mmol/L Sodium Level 142 mmol/L 141 mmol/L White Blood Count 8.89 K/uL 10.73 K/uL Red Blood Count 4.10 M/uL 4.44 M/uL Hemoglobin 11.5 g/dL 12.1 g/dL Hematocrit 35.1 % 38.1 % Mean Corpuscular Volume 85.6 fL 85.8 fL Mean Corpuscular Hemoglobin 28.0 pg 27.3 pg Mean Corpuscular Hemoglobin Concent 32.8 g/dl 31.8 g/dl Platelet Count 197 K/uL 217 K/uL Mean Platelet Volume 10.4 fL 10.4 fL Neutrophils (%) (Auto) 91.3 % 90.1 % Lymphocytes (%) (Auto) 7.5 % 6.4 % Monocytes (%) (Auto) 1.0 % 3.2 % Eosinophils (%) (Auto) 0.0 % 0.0 % Basophils (%) (Auto) 0.1 % 0.0 % Neutrophils # (Auto) 8.11 K/uL 9.67 K/uL Lymphocytes # (Auto) 0.67 K/uL 0.69 K/uL Monocytes # (Auto) 0.09 K/uL 0.34 K/uL Eosinophils # (Auto) 0.00 K/uL 0.00 K/uL Basophils # (Auto) 0.01 K/uL 0.00 K/uL Hemoglobin A1c 8.6 % HbA1c: Test 10/12/16 04:45 Hemoglobin A1c 8.6 % (4.5-5.6) H Recent Pertinent Medications Outpatient Anti-diabetic Regimen: * Levemir 14 units qAM and 8 units qPM + Novolog ~10 units twice daily according to a sliding scale The patient is currently receiving: * Basal insulin: Levemir 8-16 units every 12 hours (8 units if blood sugar less than 140 mg/dL and 16 units if blood sugar 140 mg/dL or greater ) * Correctional Insulin: Novolog Correction per scale ACHS Goal Range: Low 140 mg/dL - High 180 mg/dL Correction Factor: 20 mg/dL/unit * Prandial insulin: Per carb ratio of 1 unit per 7 grams CHO consumed Risk Factors for Insulin Resistance: * Steroids: Solu-Medrol 80 mg x 1 then 40 mg IV q8 hours (received two doses) -- > changed to prednisone 40 mg daily * Infection: pneumonia on Zosyn and Zithromax * IVF: heparin gtt * Diet: type 1 diabetic diet Assessment & Plan ASSESSMENT: * ADA & AACE recommend a goal blood sugar range 140-180 mg/dl for the majority of critically ill & non-critically ill patients. However, more stringent targets may be selected in individual cases. A slightly lower goal range will be used for Mr Plata due to his underlying illnesses. Also, with the higher goal range it is difficult to achieve lower blood sugars. * Mr Plata was admitted 10/11/16 for worsening shortness of breath subsequently diagnosed with pneumonia. As an outpatient, he started a rescue home pack of Levaquin and prednisone. He took 20 units of Levemir as an outpatient. Based upon previous data, Mr Plata requires much higher than his home dose of insulin whenever he has an infection, steroids, and a heparin drip. * Yesterday, he received 64 units of insulin. Today his fasting was 172 mg/dL which increased to 323 mg/dL with lunch. Previously, it was shown that when his blood sugar increases too much, higher doses of basal are used and stack. Therefore, the carbohydrate ratio was tightened today and an IV dose of regular insulin given. I left the scale previously used because this dosing seemed in line with previous admissions. I believe that the change to prednisone will not alter the patient's insulin needs much. PLAN FOR INPATIENT GLYCEMIC CONTROL: * Basal insulin with LANTUS 8-16 units SQ BID (8 units if blood sugar less than 120 mg/dL and 16 units if blood sugar 120 mg/dL or greater) * Correctional Insulin with NOVOLOG per scale ACHS * Goal Range: Low 120 mg/dL - High 160 mg/dL * Correction Factor: 20 mg/dL/unit * Nutritional / Prandial insulin per carb ratio of 1 unit per 6 grams CHO consumed * Please note that the plan above was derived based on current level of insulin resistance and hospital stress. These recommendations are appropriate for inpatient admission only. Plan of care upon discharge will need to be reassessed to avoid potential outpatient hypo/hyperglycemia. Thank you.
[2016-10-12] MEDS ORDERED: LEVALBUTEROL 1.25MG/0.5ML NEB INH PRN (15:00)
[2016-10-12] MEDS ORDERED: IPRATROPIUM BROMIDE NEB SOLN 0.02% 2.5 ML VIAL INH PRN (15:00)
[2016-10-12] MEDS: CEFTRIAXONE SOD INJ 1 GM in DEXTROSE 5% ADD-VANTAGE 50ML 50 ML IV SCH (15:52)
[2016-10-12] MEDS: WARFARIN SOD 5 MG TAB PO SCH (15:52)
--- NOTE | 2016-10-12 16:11 | ECHOCARDIOGRAM REPORT ---
*NOTICE TO RECEIVING DEMOCRAT AGENCY This information is strictly Confidential and protected under [place] law. [place] law prohibits you from making any further disclosure of this information unless further disclosure is expressly permitted by the written consent of the person to whom it pertains or is authorized by law. A general authorization for the release of medical or other information is not sufficient for this purpose. Hospital accepts no responsibility if the information is made available to any other person, INCLUDING THE PATIENT. Interpretation Summary * Name: CHARISSA THAKUR Study Date: 10/12/2016 12:45 PM BP: 106/72 mmHg * Patient Location: C.2T\S\S240\S\2 HR: 73 * : 1940 (M/d/y) Gender: Male Height: 72 in * Age: 76 yrs Ethnicity: CA Weight: 194 lb * Ordering Physician: Kg Perez * Referring Physician: Kg Monte * Performed By: Samantha Dumont RDCS * * Reason For Study: AFIB * BSA: 2.1 m2 * The study was technically adequate. * Compared to prior study, changes are noted. * -- Conclusions -- * The rhythm is atrial fibrillation with intermittent rapid ventricular response. * Ejection Fraction = 50-55%. * The left atrium is moderately dilated. * There is mild mitral regurgitation. * Aortic valve sclerosis mild, without significant aortic valvular stenosis. Procedure Details * A contrast injection of Definity was performed to improve assessment of LV function. * Contrast was injected into an intravenous site in the right arm. * One vial of Definity ultrasound contrast was diluted in normal saline to a total volume of 10 ml. A total of '2' ml of solution was administered during imaging. * Lot # [id number] of Definity utilized for procedure. * Expiration date DEC 15. * The attending nurse who injected the contrast agent was KARLEE CURTIS RN. * A complete two-dimensional transthoracic echocardiogram was performed (2D, M-mode, Doppler and color flow Doppler). Left Ventricle * The left ventricle is normal in size. * The rhythm is atrial fibrillation with intermittent rapid ventricular response. * There is no thrombus. * There is mild concentric left ventricular hypertrophy. * Ejection Fraction = 50-55%. * Left ventricular systolic function is normal. * The left ventricular wall motion is normal. Right Ventricle * The right ventricle is normal size. * The right ventricular systolic function is normal as assessed by tricuspid annular plane systolic excursion (TAPSE) (normal >1.5 cm). Atria * The left atrium is moderately dilated. * The right atrium is mildly dilated. * There is no evidence of atrial septal defect, but resolution does not allow assessment for a patent foramen ovale. Mitral Valve * There is moderate mitral annular calcification. * There is no mitral valve stenosis. * There is mild mitral regurgitation. Tricuspid Valve * The tricuspid valve is normal. * There is no tricuspid stenosis. * Significant tricuspid regurgitation is absent. Aortic Valve * The aortic valve is not well visualized. * Aortic valve sclerosis mild, without significant aortic valvular stenosis. * Aortic stenosis is absent. * There is no significant aortic regurgitation. Pulmonic Valve * The pulmonary valve is not well seen, but the Doppler examination is normal without significant regurgitation or stenosis. Great Vessels * The aortic root is normal size. Pericardium/Pleural * There is no pericardial effusion. Great Vessels * Normal inferior vena cava diameter and respiratory variation suggests normal central venous pressure. Left Ventricular Diastolic Function * Pulse wave TDI of the anterior and posterior mitral annulas demonstrates abnormal LV relaxation MMode 2D Measurements and Calculations IVSd 1.2 cm IVSs 1.9 cm LVIDd 5.3 cm LVIDs 4.1 cm LVPWd 1.2 cm LVPWs 1.7 cm IVS/LVPW 0.95 FS 23.1 % EDV(Teich) 133.9 ml ESV(Teich) 72.4 ml EF(Teich) 45.9 % EDV(cubed) 146.9 ml ESV(cubed) 66.8 ml EF(cubed) 54.5 % % IVS thick 67.7 % % LVPW thick 42.0 % LV mass(C)d 251.5 grams LV mass(C)dI 119.6 grams/m\S\2 LV mass(C)s 329.7 grams LV mass(C)sI 156.8 grams/m\S\2 SV(Teich) 61.5 ml SI(Teich) 29.2 ml/m\S\2 SV(cubed) 80.0 ml SI(cubed) 38.1 ml/m\S\2 Ao root diam 3.3 cm Ao root area 8.5 cm\S\2 LA dimension 4.5 cm LA/Ao 1.4 LVAd ap4 28.7 cm\S\2 LVLd ap4 7.6 cm EDV(MOD-sp4) 88.9 ml EDV(sp4-el) 92.0 ml LVAs ap4 19.5 cm\S\2 LVLs ap4 6.9 cm ESV(MOD-sp4) 47.2 ml ESV(sp4-el) 46.9 ml EF(MOD-sp4) 46.9 % EF(sp4-el) 49.0 % LVAd ap2 33.4 cm\S\2 LVLd ap2 7.7 cm EDV(MOD-sp2) 117.0 ml EDV(sp2-el) 122.5 ml LVAs ap2 21.2 cm\S\2 LVLs ap2 6.8 cm ESV(MOD-sp2) 52.8 ml ESV(sp2-el) 56.1 ml EF(MOD-sp2) 54.8 % EF(sp2-el) 54.2 % LVLd %diff 1.5 % EDV(MOD-bp) 103.1 ml LVLs %diff -0.90 % ESV(MOD-bp) 49.3 ml EF(MOD-bp) 52.2 % SV(MOD-sp4) 41.7 ml SI(MOD-sp4) 19.8 ml/m\S\2 SV(MOD-sp2) 64.1 ml SI(MOD-sp2) 30.5 ml/m\S\2 SV(MOD-bp) 53.8 ml SI(MOD-bp) 25.6 ml/m\S\2 SV(sp4-el) 45.1 ml SI(sp4-el) 21.5 ml/m\S\2 SV(sp2-el) 66.4 ml SI(sp2-el) 31.6 ml/m\S\2
[2016-10-12 16:44] LABS: PARTIAL THROMBOPLASTIN RATIO 1.2
[2016-10-12] MEDS ORDERED: HEPARIN IV BOLUS 4,500 UNIT in SYRINGE 0 ML IV SCH (17:15)
[2016-10-12] MEDS: SIMVASTATIN 20 MG TAB PO SCH (21:14)
[2016-10-12] MEDS: TAMSULOSIN HCL 0.4 MG CAP PO SCH (21:14)
[2016-10-12] MEDS: AZITHROMYCIN IV 500 MG in DEXTROSE 5% 250ML 250 ML IV SCH (21:16)
[2016-10-12 23:50] LABS: PARTIAL THROMBOPLASTIN RATIO 2.2
[2016-10-13] VITALS (8 sets, daily range): BP systolic 104–174; BP diastolic 55–84; PULSE 49–88; TEMP 36.3–36.8; O2SAT 90–99
[2016-10-13] MEDS: HEPARIN 25,000 UNIT/500ML D5W 500 ML IV PRN ×3 (00:55→23:33)
[2016-10-13 05:55] LABS: COMPLETE YES; HEMATOCRIT 34.5 % (42-52); IG% 0.2 %; LYMPH % 13.2 %; LYMPH ABS # 1.79 K/uL (1.2-3.4); MEAN CELL VOLUME 85.6 fL (80-100); MEAN CORPUSCULAR HGB CONC 31.6 g/dl (32-36); MEAN PLATELET VOLUME 10.5 fL (7.4-10.4); MONO % 7.2 %; NEUT % 79.4 %; PLATELET COUNT 199 K/uL (130-400); RED BLOOD COUNT 4.03 M/uL (4.7-6.1); WHITE BLOOD COUNT 13.51 K/uL (4.8-10.8)
[2016-10-13 06:19] LABS: INR 1.1 (0.9-1.1); PARTIAL THROMBOPLASTIN RATIO 2.4
[2016-10-13 06:29] LABS: BUN/CREATININE RATIO 28.8 (10-20); CALCIUM 8.3 mg/dl (8.5-10.1); CREATININE 2.3 mg/dl (0.60-1.40); POTASSIUM 4.4 mmol/L (3.5-5.1)
[2016-10-13] MEDS: DOCUSATE SODIUM 100 MG CAP PO SCH ×2 (08:21→20:44)
[2016-10-13] MEDS: RANITIDINE HCL 150 MG TAB PO SCH ×2 (08:21→18:59)
[2016-10-13] MEDS: ASPIRIN 81 MG ECTAB PO SCH (08:21)
[2016-10-13] MEDS: INSULIN ASPART 100 UNITS/ML 3 ML PEN SC SCH ×4 (08:22→20:56)
[2016-10-13] MEDS: MULTIVITAMIN TAB PO SCH (08:23)
[2016-10-13] MEDS: INSULIN DETEMIR FLEXPEN/FLEX TOUCH 100 UNITS/ML 3ML SC SCH ×2 (08:23→20:55)
[2016-10-13] MEDS: CHOLECALCIFEROL 1000 INTER.UNIT TAB PO SCH (08:23)
[2016-10-13] MEDS: LOSARTAN POTASSIUM 50 MG TAB PO SCH (08:23)
[2016-10-13] MEDS: FLUTICASONE PROPIONATE NA SPR 16 GM BTL NAE SCH (08:24)
[2016-10-13] MEDS ORDERED: FUROSEMIDE 20 MG TAB PO SCH (09:00)
--- NOTE | 2016-10-13 10:04 | Cardiology Follow-Up ---
Subjective General Date of Service: Oct 13, 2016. Chief Complaint: Dyspnea Pt evaluation today including: conversation w/ patient, physical exam, chart review, lab review, review of studies, review of inpatient medication list History of Present Illness Patient seen and examined. Feeling better in regards to dyspnea. Improved right sided chest discomfort. No angina type chest pain. No palpitations. Right lower extremity peripheral edema has improved. Last received 25 mg of PO Lopressor on 10/12/2016 at 10:03 AM. Status post spontaneous conversion from atrial fibrillation to sinus bradycardia at 19:35: 11 on 10/12/2016. Telemetry: Sinus bradycardia down to 34 bpm overnight. Currently sinus bradycardia at 54 bpm. No significant pauses. No further atrial fibrillation. No significant ventricular arrhythmias. EKG dated and timed 13-OCT-2016 @ 06:36:17: Sinus bradycardia. Left anterior fascicular block. Nonspecific ST abnormality. When compared with ECG of 2016 06:15, sinus rhythm has replaced atrial fibrillation. Vent. rate has decreased BY 52 BPM October 12, 2016 TTE Interpretation Summary ([facility], Dr. Hall): The study was technically adequate. Compared to prior study, changes are noted. The rhythm is atrial fibrillation with intermittent rapid ventricular response. Ejection Fraction = 50-55%. The left atrium is moderately dilated. There is mild mitral regurgitation. Aortic valve sclerosis mild, without significant aortic valvular stenosis. Allergies Coded Allergies: Diltiazem (Verified Allergy, Mild, RASH, 10/11/16) Aspirin (Verified Adverse Reaction, Mild, GI SYMPTOMS, 10/11/16) Lisinopril (Verified Adverse Reaction, Unknown, cough, 10/11/16) Propoxyphene (Verified Adverse Reaction, Unknown, STOMACH UPSET DIARRHEA, 10/11/16) Social History Smoking Status: Former Smoker Hx Tobacco Use In Past Year?: No (SMOKED 2 PPD X 30+ YRS QUIT >/= 15 YRS AGO) Hx Alcohol Use - Type And Amou: Yes (Occasional glass of wine) Hx Substance Use - Type And Am: No Problem List Medical Problems: (1) Atrial fibrillation with RVR Status: Acute (2) COPD exacerbation Status: Acute (3) COPD with exacerbation Status: Acute (4) Dyspnea Status: Acute (5) Pneumonia Status: Acute Physical Exam Vital Signs Last Vital Signs Documentation Date Time Temp Pulse Resp B/P (MAP) Pulse Ox O2 Delivery O2 Flow Rate FiO2 10/13/16 07:54 36.8 49 20 132/72 (92) 96 Nasal Cannula 2.0 Physical Exam Constitutional: Level of Distress: NAD Psychiatric: Mental Status: active & alert Orientation: to time, to place, to person Memory: recent memory normal, remote memory normal Head: normocephalic, atraumatic Eyes: Pupils: PERRLA Neck: supple, pertinent finding (Neck veins are flat) Lungs: Auscultation: no rales/crackles, deminished air movement, decreased breath sounds, expiratory wheezing, rhonchi (on the right) Cardiovascular: Heart Auscultation: no rubs, bradycardia (56 bpm) Peripheral Pulses: Dorsalis Pedis Pulse: decreased on the left, decreased on the right Abdomen: Bowel Sounds: normal Inspection & Palpation: soft, non-distended, no tenderness, guarding & rebound Extremities: no cyanosis, edema (Trivial distal right lower extremity edema) Neurologic: Cranial Nerves: grossly intact Assessment and Plan Assessment and Plan 76 year old male admitted with right lower lobe infiltrates, community-acquired pneumonia, acute on chronic pulmonary exacerbation History of emphysema, interstitial lung disease, 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 PAF provoked once again by an acute pulmonary exacerbation CHADS2 Score of 3 out of 6 (Hypertension, age, diabetes mellitus) Given observed, chronic mild resting bradycardia would continue WITHOUT AV edouard blocking therapies. Risks and benefits of anticoagulation discussed. Patient agrees to Coumadin anticoagulation, to be managed by the [facility]. Discontinue ASA given initiation of Coumadin anticoagulation Chronic right greater than left lower extremity edema Suspect multifactorial in etiology - atrial fibrillation, diastolic dysfunction, renal dysfunction, recent reduction in furosemide dosing Hold furosemide today given acute on chronic renal dysfunction Patient encouraged to increase oral fluid intake Likely resume oral furosemide 20 mg/day on discharge. Hypertension. Follow. Hyperlipidemia. Continue simvastatin DVT prophylaxis. IV heparin. Routine outpatient cardiology follow-up is currently scheduled with Dr. Fercho Carrillo Jr at 9:05 AM on 12/20/2016. Patient seen and examined, assessment as above. Paroxysmal atrial fibrillation exacerbated by acute respiratory issues with spontaneous conversion to sinus with borderline tachy macy syndrome. 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 No AV blocking meds. IF afib reoccurs may need to consider PPM Devan Styles MD Laboratory Results Last 24 Hours Test 10/12/16 11:26 10/12/16 12:40 10/12/16 16:15 10/12/16 16:17 Bedside Glucose 323 mg/dl 79 mg/dl Total Creatine Kinase 48 U/L Creatine Kinase MB 2.9 ng/ml Creatine Kinase MB Ratio 6.0 Troponin I 0.024 ng/ml Activated Partial Thromboplast Time 29.9 SECONDS Partial Thromboplastin Ratio 1.2 Test 10/12/16 20:32 10/12/16 23:15 10/13/16 05:34 Bedside Glucose 174 mg/dl Activated Partial Thromboplast Time 56.1 SECONDS 62.3 SECONDS Partial Thromboplastin Ratio 2.2 2.4 White Blood Count 13.51 K/uL Red Blood Count 4.03 M/uL Hemoglobin 10.9 g/dL Hematocrit 34.5 % Mean Corpuscular Volume 85.6 fL Mean Corpuscular Hemoglobin 27.0 pg Mean Corpuscular Hemoglobin Concent 31.6 g/dl Platelet Count 199 K/uL Mean Platelet Volume 10.5 fL Neutrophils (%) (Auto) 79.4 % Lymphocytes (%) (Auto) 13.2 % Monocytes (%) (Auto) 7.2 % Eosinophils (%) (Auto) 0.0 % Basophils (%) (Auto) 0.0 % Neutrophils # (Auto) 10.72 K/uL Lymphocytes # (Auto) 1.79 K/uL Monocytes # (Auto) 0.97 K/uL Eosinophils # (Auto) 0.00 K/uL Basophils # (Auto) 0.00 K/uL RDW Standard Deviation 44.3 fL RDW Coefficient of Variation 14.1 % Immature Granulocyte % (Auto) 0.2 % Immature Granulocyte # (Auto) 0.03 K/uL Prothrombin Time 12.0 SECONDS Prothromb Time International Ratio 1.1 Sodium Level 139 mmol/L Potassium Level 4.4 mmol/L Chloride Level 102 mmol/L Carbon Dioxide Level 27 mmol/L Anion Gap 10.0 mmol/L Blood Urea Nitrogen 66 mg/dl Creatinine 2.30 mg/dl Est Creatinine Clear Calc Drug Dose 29.1 ml/min Estimated GFR () 30.4 Estimated GFR (Non- 26.2 BUN/Creatinine Ratio 28.8 Random Glucose 226 mg/dl Calcium Level 8.3 mg/dl Magnesium Level 2.0 mg/dl
--- NOTE | 2016-10-13 13:17 | Pharmacy Progress Note ---
Glycemic Control: Progress Nt Date of Service Oct 13, 2016. Scope Glycemic Pharmacist consulted by Dr Burns on 10/11/2016 for glycemic control and to write orders per [facility] inpatient glycemic control protocol. Objective Accuchecks BSG (last 24hrs): Test 10/12/16 16:15 10/12/16 20:32 10/13/16 05:34 10/13/16 11:21 Bedside Glucose 79 mg/dl (70-99) 174 mg/dl (70-99) 189 mg/dl (70-99) Random Glucose 226 mg/dl (70-99) Laboratory Data (last 24hrs) Test 10/13/16 05:34 Anion Gap 10.0 mmol/L BUN/Creatinine Ratio 28.8 Blood Urea Nitrogen 66 mg/dl Creatinine 2.30 mg/dl Potassium Level 4.4 mmol/L Sodium Level 139 mmol/L White Blood Count 13.51 K/uL Red Blood Count 4.03 M/uL Hemoglobin 10.9 g/dL Hematocrit 34.5 % Mean Corpuscular Volume 85.6 fL Mean Corpuscular Hemoglobin 27.0 pg Mean Corpuscular Hemoglobin Concent 31.6 g/dl Platelet Count 199 K/uL Mean Platelet Volume 10.5 fL Neutrophils (%) (Auto) 79.4 % Lymphocytes (%) (Auto) 13.2 % Monocytes (%) (Auto) 7.2 % Eosinophils (%) (Auto) 0.0 % Basophils (%) (Auto) 0.0 % Neutrophils # (Auto) 10.72 K/uL Lymphocytes # (Auto) 1.79 K/uL Monocytes # (Auto) 0.97 K/uL Eosinophils # (Auto) 0.00 K/uL Basophils # (Auto) 0.00 K/uL HbA1c: Test 10/12/16 04:45 Hemoglobin A1c 8.6 % (4.5-5.6) H Recent Pertinent Medications Outpatient Anti-diabetic Regimen: * Levemir 14 units qAM and 8 units qPM + Novolog ~10 units twice daily according to a sliding scale The patient is currently receiving: * Basal insulin: Levemir 8-16 units every 12 hours (8 units if blood sugar less than 140 mg/dL and 16 units if blood sugar 140 mg/dL or greater ) * Correctional Insulin: Novolog Correction per scale ACHS Goal Range: Low 120 mg/dL - High 160 mg/dL Correction Factor: 20 mg/dL/unit * Prandial insulin: Per carb ratio of 1 unit per 6 grams CHO consumed Risk Factors for Insulin Resistance: * Steroids: Solu-Medrol 80 mg x 1 then 40 mg IV q8 hours (received two doses) -- > changed to prednisone 40 mg daily * Infection: pneumonia on Rocephin and Zithromax * IVF: heparin gtt * Diet: type 1 diabetic diet Assessment & Plan ASSESSMENT: * ADA & AACE recommend a goal blood sugar range 140-180 mg/dl for the majority of critically ill & non-critically ill patients. However, more stringent targets may be selected in individual cases. A slightly lower goal range will be used for Mr Plata due to his underlying illnesses. Also, with the higher goal range it is difficult to achieve lower blood sugars. * Mr Plata was admitted 10/11/16 for worsening shortness of breath subsequently diagnosed with pneumonia. As an outpatient, he started a rescue home pack of Levaquin and prednisone. He took 20 units of Levemir as an outpatient. Based upon previous data, Mr Plata requires much higher than his home dose of insulin whenever he has an infection, steroids, and a heparin drip. He was started on a scale of Lantus and a scale that was demonstrated to be effective. Yesterday, Mr Plata was changed from IV steroids to PO steroids. * Today, Mr Plata's fasting blood sugar was 226 mg/dL which I believe was partially from not receiving insulin to cover his dinner. I did not adjust the Lantus. Previously, it was shown that Mr Plata tends to accumulate insulin , especially Lantus. At this point with the IV steroids discontinued, I will loosen the correctional insulin and increase the cut-off point for the lower dose of Lantus. I believe this will stop the patient from being over-corrected. PLAN FOR INPATIENT GLYCEMIC CONTROL: * Basal insulin with LANTUS 8-16 units SQ BID (8 units if blood sugar less than 180 mg/dL and 16 units if blood sugar 180 mg/dL or greater) * Correctional Insulin with NOVOLOG per scale ACHS * Goal Range: Low 120 mg/dL - High 160 mg/dL * Correction Factor: 30 mg/dL/unit * Nutritional / Prandial insulin per carb ratio of 1 unit per 10 grams CHO consumed * Please note that the plan above was derived based on current level of insulin resistance and hospital stress. These recommendations are appropriate for inpatient admission only. Plan of care upon discharge will need to be reassessed to avoid potential outpatient hypo/hyperglycemia. Thank you.
[2016-10-13] MEDS: WARFARIN SOD 5 MG TAB PO SCH (15:34)
[2016-10-13] MEDS: CEFTRIAXONE SOD INJ 1 GM in DEXTROSE 5% ADD-VANTAGE 50ML 50 ML IV SCH (15:35)
--- NOTE | 2016-10-13 17:27 | Progress Note ---
Medicine Progress Note Date & Time of Visit: Oct 13, 2016 at 17:20. Subjective 76 yoM presents with worsening shortness of breath and rapid atrial fibrillation , found to have RLL pneumonia. -ambulatory -tolerating PO -denies fevers or chills -denies cough -feels improved since admission. Objective Last 8 Hrs Date Time Temp Pulse Resp B/P (MAP) Pulse Ox O2 Delivery O2 Flow Rate FiO2 10/13/16 16:00 Nasal Cannula 2.0 10/13/16 15:32 36.4 54 16 144/68 (93) 90 Nasal Cannula 2.0 10/13/16 12:00 Nasal Cannula 2.0 10/13/16 11:34 36.3 50 22 122/55 (77) 93 Nasal Cannula 2.0 Physical Exam: GEN: WNWD, in no acute distress, alert and appropriate, on oxygen HEENT: NC/AT, normal sclerae, MMM CARDIO: reg rate, S1/2 heard without m/g/r, trace swelling of RLE, no edema or swelling in the LLE LUNGS: clear to auscultation , no crackles, rales or wheezes. ABD: soft, non-tender, non-distended, no rebound or guarding, +BS EXTREMITY: warm and well-perfused. NEURO: CN 2-12 grossly intact, no gross focal deficits. MUSC: moves all extremities equally SKIN: warm and dry Laboratory Results: 10/13/16 05:34 Red Blood Count 4.03, Mean Corpuscular Volume 85.6, Mean Corpuscular Hemoglobin 27.0, Mean Corpuscular Hemoglobin Concent 31.6, Mean Platelet Volume 10.5, Neutrophils (%) (Auto) 79.4, Lymphocytes (%) (Auto) 13.2, Monocytes (%) (Auto) 7.2, Eosinophils (%) (Auto) 0.0, Basophils (%) (Auto) 0.0, Neutrophils # (Auto) 10.72, Lymphocytes # (Auto) 1.79, Monocytes # (Auto) 0.97, Eosinophils # (Auto) 0.00, Basophils # (Auto) 0.00 10/13/16 05:34 Test 10/11/16 16:50 10/12/16 04:45 10/12/16 12:40 10/13/16 05:34 D-Dimer 270 ug/L FEU (0-500) Total Bilirubin 0.5 mg/dl (0.2-1) Aspartate Amino Transf (AST/SGOT) 9 U/L (15-37) Alanine Aminotransferase (ALT/SGPT) 18 U/L (12-78) Alkaline Phosphatase 91 U/L (45-117) Pro-B-Type Natriuretic Peptide 1831 pg/ml (0-1800) Total Protein 7.1 gm/dl (6.4-8.2) Albumin 3.6 gm/dl (3.4-5.0) Globulin 3.5 gm/dl (2.5-4.0) Albumin/Globulin Ratio 1.0 (0.9-2) Thyroid Stimulating Hormone (TSH) 1.120 uIu/ml (0.300-4.500) Estimated Average Glucose 200 mg/dl Hemoglobin A1c 8.6 % (4.5-5.6) Total Creatine Kinase 48 U/L (39-308) Creatine Kinase MB 2.9 ng/ml (0.5-3.6) Creatine Kinase MB Ratio 6.0 (0-3.0) Troponin I 0.024 ng/ml (0-0.045) White Blood Count 13.51 K/uL (4.8-10.8) Red Blood Count 4.03 M/uL (4.7-6.1) Hemoglobin 10.9 g/dL (14.0-18.0) Hematocrit 34.5 % (42-52) Mean Corpuscular Volume 85.6 fL (80-100) Mean Corpuscular Hemoglobin 27.0 pg (25-34) Mean Corpuscular Hemoglobin Concent 31.6 g/dl (32-36) Platelet Count 199 K/uL (130-400) Mean Platelet Volume 10.5 fL (7.4-10.4) Neutrophils (%) (Auto) 79.4 % Lymphocytes (%) (Auto) 13.2 % Monocytes (%) (Auto) 7.2 % Eosinophils (%) (Auto) 0.0 % Basophils (%) (Auto) 0.0 % Neutrophils # (Auto) 10.72 K/uL (1.4-6.5) Lymphocytes # (Auto) 1.79 K/uL (1.2-3.4) Monocytes # (Auto) 0.97 K/uL (0.11-0.59) Eosinophils # (Auto) 0.00 K/uL (0-0.5) Basophils # (Auto) 0.00 K/uL (0-0.2) RDW Standard Deviation 44.3 fL (36.4-46.3) RDW Coefficient of Variation 14.1 % (11.5-14.5) Immature Granulocyte % (Auto) 0.2 % Immature Granulocyte # (Auto) 0.03 K/uL (0.00-0.02) Prothrombin Time 12.0 SECONDS (9.0-12.0) Prothromb Time International Ratio 1.1 (0.9-1.1) Activated Partial Thromboplast Time 62.3 SECONDS (21.0-31.0) Partial Thromboplastin Ratio 2.4 Anion Gap 10.0 mmol/L (3-11) Est Creatinine Clear Calc Drug Dose 29.1 ml/min Estimated GFR () 30.4 Estimated GFR (Non- 26.2 BUN/Creatinine Ratio 28.8 (10-20) Calcium Level 8.3 mg/dl (8.5-10.1) Magnesium Level 2.0 mg/dl (1.8-2.4) Test 10/13/16 11:21 Bedside Glucose 189 mg/dl (70-99) Last 24 Hours Test 10/12/16 20:32 10/12/16 23:15 10/13/16 05:34 10/13/16 11:21 Bedside Glucose 174 mg/dl 189 mg/dl Activated Partial Thromboplast Time 56.1 SECONDS 62.3 SECONDS Partial Thromboplastin Ratio 2.2 2.4 White Blood Count 13.51 K/uL Red Blood Count 4.03 M/uL Hemoglobin 10.9 g/dL Hematocrit 34.5 % Mean Corpuscular Volume 85.6 fL Mean Corpuscular Hemoglobin 27.0 pg Mean Corpuscular Hemoglobin Concent 31.6 g/dl Platelet Count 199 K/uL Mean Platelet Volume 10.5 fL Neutrophils (%) (Auto) 79.4 % Lymphocytes (%) (Auto) 13.2 % Monocytes (%) (Auto) 7.2 % Eosinophils (%) (Auto) 0.0 % Basophils (%) (Auto) 0.0 % Neutrophils # (Auto) 10.72 K/uL Lymphocytes # (Auto) 1.79 K/uL Monocytes # (Auto) 0.97 K/uL Eosinophils # (Auto) 0.00 K/uL Basophils # (Auto) 0.00 K/uL RDW Standard Deviation 44.3 fL RDW Coefficient of Variation 14.1 % Immature Granulocyte % (Auto) 0.2 % Immature Granulocyte # (Auto) 0.03 K/uL Prothrombin Time 12.0 SECONDS Prothromb Time International Ratio 1.1 Sodium Level 139 mmol/L Potassium Level 4.4 mmol/L Chloride Level 102 mmol/L Carbon Dioxide Level 27 mmol/L Anion Gap 10.0 mmol/L Blood Urea Nitrogen 66 mg/dl Creatinine 2.30 mg/dl Est Creatinine Clear Calc Drug Dose 29.1 ml/min Estimated GFR () 30.4 Estimated GFR (Non- 26.2 BUN/Creatinine Ratio 28.8 Random Glucose 226 mg/dl Calcium Level 8.3 mg/dl Magnesium Level 2.0 mg/dl Assessment & Plan 76 yoM presents with worsening shortness of breath and rapid atrial fibrillation , found to have RLL pneumonia. 1. COPD exacerbation 2. Right lower lobe pneumonia 3. Atrial fibrillation w RVR 4. 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 CTEPH 6. TANK on CKD III 7. Chronic diastolic heart failure-compensated 8. HTN 9. BPH 10. DMII 11. GERD 12. Hyperlipidemia COPD exacerbation and rapid atrial fibrillation in the setting of RLL pneumonia. Improved after abx and steroids overnight. Still has some residual hypoxia. Baseline uses oxygen only at night. Wean as tolerated. Change abx to PO. Cont prednisone-no wheezing noted on exam. Regarding his heart, he appears compensated from a heart failure standpoint and has some chronic trace edema; Lasix on hold until discharge. Creat slightly worse from baseline. Will consult Nephro to weigh in. He was started on Metoprolol for his rapid heart rate and per Cards team, he will be started on Coumadin temporarily while in atrial fibrillation. Cont heparin drip until INR 2-3 while hospitalized. DVT proph: heparin/coumadin Full Code Dispo-transfer to med/surg. awaiting clearance for pulm to discharge. doesn't need bridge to coumadin, but will remain on heparin drip while hospitalized for continued stroke prophylaxis unless otherwise directed by Cardiology. Danni Villalta DO [facility] Hospitalist Consultants: Cards, Pulm, Nephro Current Inpatient Medications: Current Inpatient Medications Medications (Trade) Dose Ordered Sig/Bertha Route Start Time Stop Time Status Last Admin Dose Admin Acetaminophen (Tylenol Tab) 650 mg Q4H PRN PO 10/11/16 20:30 11/10/16 20:29 Al Hydrox/Mg Hydrox/Simethicone (Maalox Max Susp) 15 ml Q4H PRN PO 10/11/16 20:30 11/10/16 20:29 Magnesium Hydroxide (Milk Of Magnesia Susp) 30 ml Q12H PRN PO 10/11/16 20:30 11/10/16 20:29 Ondansetron HCl (Zofran Inj) 4 mg Q6H PRN IV 10/11/16 20:30 11/10/16 20:29 Nitroglycerin (Nitrostat Tab) 0.4 mg UD PRN SL 10/11/16 20:30 11/10/16 20:29 Docusate Sodium (coLACE CAP) 100 mg BID PO 10/12/16 09:00 11/11/16 08:59 10/13/16 08:21 100 MG Fluticasone Propionate (Flonase Nasal [place]) 2 sprays DAILY AL[place] 10/12/16 09:00 11/11/16 08:59 10/13/16 08:24 2 SPRAYS Multivitamins (Multivitamin Tab) 1 tab QAM PO 10/12/16 09:00 11/11/16 08:59 10/13/16 08:23 1 TAB Ranitidine HCl (zANTac TAB) 150 mg BID PO 10/12/16 09:00 11/11/16 08:59 10/13/16 08:21 150 MG Simvastatin (Zocor Tab) 20 mg QPM PO 10/12/16 21:00 11/11/16 20:59 10/12/16 21:14 20 MG Tamsulosin HCl (Flomax Cap) 0.4 mg HS PO 10/12/16 21:00 11/11/16 20:59 10/12/16 21:14 0.4 MG Zolpidem Tartrate (Ambien Tab) 5 mg HS PRN PO 10/11/16 20:30 11/10/16 20:29 Miscellaneous Information (Order Awaiting Action) 1 ea QS N/A 10/12/16 00:00 11/11/16 00:00 Insulin Detemir (Levemir Flexpen/ FlexTouch) SEE PROTOCOL BID SC 10/11/16 21:00 11/10/16 20:59 10/13/16 08:23 16 UNIT Insulin Aspart (novoLOG ASPART) SLIDING SCALE G... ACHS SC 10/11/16 21:00 11/10/16 20:59 10/13/16 12:24 6 UNITS Azithromycin 500 mg/Dextrose 255 ml @ 125 mls/hr DAILY@2200 IV 10/11/16 22:00 10/18/16 21:59 10/12/16 21:16 125 MLS/HR Metoprolol Tartrate (Lopressor Iv) 2.5 mg Q4 PRN IV 10/11/16 20:30 11/10/16 20:29 Miscellaneous Information (Consult Glycemic Management Pharmacy) 1 ea UD PRN N/A 10/11/16 20:41 11/10/16 20:40 Tramadol HCl (Ultram Tab) 50 mg TID PRN PO 10/11/16 20:45 11/10/16 20:44 Losartan Potassium (coZAAR TAB) 50 mg DAILY PO 10/12/16 09:00 11/11/16 08:59 10/13/16 08:23 50 MG Glucose (Glucose 40% Gel) 15-30 GRAMS 15 GRAMS... UD PRN PO 10/11/16 21:00 11/10/16 20:59 Glucose (Glucose Chew Tab) 4-8 Tablets 4 Tabl... UD PRN PO 10/11/16 21:00 11/10/16 20:59 Dextrose (Dextrose 50% 50ML Syringe) 25-50ML OF 50% DW IV FOR... UD PRN IV 10/11/16 21:00 11/10/16 20:59 Glucagon (Glucagon Inj) 1 mg UD PRN SQ 10/11/16 21:00 11/10/16 20:59 Heparin Sodium/ Dextrose 500 ml @ 21 mls/hr [id number] PRN IV 10/11/16 22:45 11/10/16 22:44 10/13/16 00:55 21 MLS/HR Cholecalciferol (Vitamin D Tab) 1,000 inter.unit DAILY PO 10/13/16 09:00 11/11/16 08:59 10/13/16 08:23 1,000 INTER.UNIT Warfarin Sodium (Coumadin Tab) 5 mg DAILY@16 PO 10/12/16 16:00 11/11/16 15:59 10/13/16 15:34 5 MG Prednisone (PredniSONE TAB) 40 mg DAILY PO 10/13/16 09:00 11/12/16 08:59 10/13/16 08:25 40 MG Ceftriaxone Sodium 1 gm/ Dextrose 50 ml @ 100 mls/hr Q24H IV 10/12/16 16:00 10/19/16 15:59 10/13/16 15:35 100 MLS/HR Ipratropium [place] (Atrovent 0.02% 0.5MG/2.5ML Neb) 0.5 mg Q6R PRN INH 10/12/16 15:00 11/11/16 02:59 Levalbuterol (Xopenex 1.25MG/ 0.5ML Neb) 1.25 mg Q6R PRN INH 10/12/16 15:00 11/11/16 02:59
--- NOTE | 2016-10-13 19:29 | PULMONARY PROGRESS NOTE ---
DATE: 10/13/2016 TIME: 6:50 p.m. SUBJECTIVE: The patient is feeling generally better. He is somewhat less short of breath. His cough is starting to loosen. In the last 2 hours he has coughed up some sputum on 4 occasions. They were relatively small quantities. It is still white. He is not having any chest pains. OBJECTIVE: GENERAL: The patient appeared comfortable. He did cough a couple of times during the exam. ENT: Exam is unremarkable. HEART: Rate was 54 per minute. The rhythm today seemed regular. VITAL SIGNS: Blood pressure 144/68. The respiratory rate was 16 breaths per minute. LUNGS: Lung raymond revealed somewhat diminished breath sounds. There were very slight rhonchi heard. Oxygen saturation was 90% on 2 liters. ABDOMEN: Soft and nontender. EXTREMITIES: Showed trace edema bilaterally. LABORATORY DATA: White count today was 13.51. Hemoglobin is 10.9. Platelets are 199,000. PTT today was 62.3. INR today was 1.1. Electrolytes show sodium 139, potassium 4.4, chloride 102, bicarbonate 27. The BUN was 66 with a creatinine of 2.3. Prior BUN was 52 with a creatinine of 2.1. Blood sugars today have ranged from 189 up to 248. IMPRESSION: 1. Right lower lobe infiltrate. 2. Emphysema. 3. Interstitial lung disease. 4. Calcified pleural plaques. 5. Possible pulmonary hypertension. COMMENTS: The patient seems to be improved. He is starting to expectorate. He was switched to prednisone. He is on Coumadin for now. He is still on ceftriaxone and azithromycin. Overall, his respiratory status seems to be improving. We will assess him again tomorrow.
[2016-10-13] MEDS: SIMVASTATIN 20 MG TAB PO SCH (20:50)
[2016-10-13] MEDS: TAMSULOSIN HCL 0.4 MG CAP PO SCH (20:50)
[2016-10-13] MEDS: CEFDINIR 300 MG CAP PO SCH (21:23)
[2016-10-13] MEDS: AZITHROMYCIN 250 MG TAB PO SCH (21:24)
[2016-10-14] MEDS: HEPARIN 25,000 UNIT/500ML D5W 500 ML IV PRN (00:04)
[2016-10-14 06:08] LABS: BASO % 0.1 %; BASO ABS # 0.01 K/uL (0-0.2); COMPLETE YES; EOS % 0.1 %; HEMATOCRIT 35.9 % (42-52); IG% 0.2 %; LYMPH % 18.5 %; LYMPH ABS # 1.73 K/uL (1.2-3.4); MEAN CELL VOLUME 84.9 fL (80-100); MEAN CORPUSCULAR HEMOGLOBIN 28.1 pg (25-34); MEAN CORPUSCULAR HGB CONC 33.1 g/dl (32-36); MEAN PLATELET VOLUME 10.8 fL (7.4-10.4); NEUT % 71.1 %; PLATELET COUNT 203 K/uL (130-400); RED BLOOD COUNT 4.23 M/uL (4.7-6.1); WHITE BLOOD COUNT 9.37 K/uL (4.8-10.8)
[2016-10-14 06:28] LABS: INR 1.5 (0.9-1.1); PARTIAL THROMBOPLASTIN RATIO 2.5; PROTHROMBIN TIME (PATIENT) 16.5 SECONDS (9.0-12.0)
[2016-10-14 06:47] LABS: BUN/CREATININE RATIO 33.9 (10-20); CALCIUM 8.5 mg/dl (8.5-10.1); CREATININE 1.9 mg/dl (0.60-1.40); MAGNESIUM 2.4 mg/dl (1.8-2.4); POTASSIUM 3.9 mmol/L (3.5-5.1)
[2016-10-14 07:40] VITALS: BP 148/84; PULSE 53; TEMP 36.5; O2SAT 97
[2016-10-14] MEDS: DOCUSATE SODIUM 100 MG CAP PO SCH (08:00)
[2016-10-14] MEDS: FLUTICASONE PROPIONATE NA SPR 16 GM BTL NAE SCH (08:17)
[2016-10-14] MEDS: LOSARTAN POTASSIUM 50 MG TAB PO SCH (08:18)
[2016-10-14] MEDS: CEFDINIR 300 MG CAP PO SCH ×2 (08:18→20:34)
[2016-10-14] MEDS: CHOLECALCIFEROL 1000 INTER.UNIT TAB PO SCH (08:18)
[2016-10-14] MEDS: MULTIVITAMIN TAB PO SCH (08:18)
[2016-10-14] MEDS: RANITIDINE HCL 150 MG TAB PO SCH ×2 (08:18→20:34)
[2016-10-14] MEDS: INSULIN DETEMIR FLEXPEN/FLEX TOUCH 100 UNITS/ML 3ML SC SCH ×2 (08:20→20:39)
[2016-10-14 08:31] VITALS: BP 161/106; PULSE 129; O2SAT 92
[2016-10-14 08:37] VITALS: BP 157/91; PULSE 65
[2016-10-14 08:38] VITALS: PULSE 84; O2SAT 96
[2016-10-14] MEDS: INSULIN ASPART 100 UNITS/ML 3 ML PEN SC SCH ×4 (08:59→20:38)
--- NOTE | 2016-10-14 09:12 | PULMONARY PROGRESS NOTE ---
DATE: 10/14/2016 TIME: 08:35 a.m. SUBJECTIVE: The patient had increasing shortness of breath and cough last evening. He subsequently states he slept well from midnight until 5:00 a.m. Last evening, he had coughed up a large quantity of phlegm on 2 occasions. This morning, beginning about 20 minutes ago, he developed increasing shortness of breath again. His RN was in the room with him when I came in. She had already called for a respiratory treatment. The patient calmed fairly quickly. He did not cough at all when I was doing this exam. He is not having chest pains. The patient currently does not feel his heart pounding. OBJECTIVE: GENERAL: The patient was in some degree of respiratory distress. VITAL SIGNS: Temperature this morning was 36.5. ENT: Unremarkable. HEART: The patient's heart rate is currently 144, taken by myself. It is irregularly irregular and suggestive for atrial fib. Blood pressure is elevated at 161/106. LUNGS: Auscultation of the lung raymond reveals fairly good aeration bilaterally. I did not hear significant wheeze or rhonchi at present. His respiratory rate was 22 breaths per minute. The oxygen saturation this morning was 92% on 2 liter nasal cannula. ABDOMEN: Soft. Bowel sounds were present. EXTREMITIES: Showed no significant edema, cyanosis or clubbing. LABORATORY DATA: White count is 9.37. Hemoglobin 11.9. Platelets 203,000. PTT this morning was 63.7 with an INR of 1.5. Sodium is 143, potassium 3.9, chloride 107, bicarb 26. The BUN is 64 with a creatinine of 1.9. Yesterday, the BUN was 66 with a creatinine of 2.3. IMPRESSIONS: 1. Right lower lobe infiltrate. 2. Emphysema. 3. Interstitial lung disease. 4. Recurrent atrial fibrillation with rapid ventricular response rate. 5. Calcified pleural plaques. 6. Possible pulmonary hypertension. The patient was complaining of severe shortness of breath. He is clinically in rapid atrial fibrillation. It is not clear to me if his breathing difficulty precipitated the arrhythmia or if the arrhythmia may have precipitated worsening dyspnea. I have asked his nurse to contact his hospitalist and possibly his pararescue manager. I suspect the atrial fibrillation may be occurring more regularly than has been suspected. I would not anticipate the patient would be discharged today in light of this acute event with the rhythm change.
--- NOTE | 2016-10-14 15:07 | Nephrology Consultation ---
Nephrology Consultation Date of Consultation: Oct 14, 2016. Attending Physician: Dr Villalta Requesting Physician: Dr Villalta Reason for Consultation: TANK on CKD History of Present Illness 76 year old male admitted 10/11 w/ AF w/ RVR and COPD exacerbation. He has ckd3 w/ baseline creatinine 1.6-1.9 in the setting of DM since and HTN. Follows w/ Dr. Zaidi in CKD clinic. Was at baseline on arrival here; then creatinine worsened to peak yesterday at 2.3; today back to baseline 1.9. He feels better, though breathing still occasionally bothering him. Currently on heparin GTT as coumadin is being restarted (had stopped it prior to admission but decision made to restart). He had lasix 40 mg IV on day of admission x 1; no other lasix given. Has been getting metoprolol intermittently as well but this has been on hold since 10/12. Past Medical/Surgical History Medical Problems: (1) Atrial fibrillation with RVR Status: Acute (2) COPD exacerbation Status: Acute (3) COPD with exacerbation Status: Acute (4) Dyspnea Status: Acute (5) Pneumonia Status: Acute -CKD 3/4, baseline creatine 1.6-1.9 past year in [facility] last outpt value 1.6 12/2015; follows w/ Dr. Zaidi CKD clinic; nonproteinuric -paroxysmal A fib not on coumadin -HTN -DM2 since - dependent COPD -s/p 07/2016 partal pleurectomy/lung bx >> possible insterstitial lung dz -prostatic hypertrophy Family History Cancer MOTHER Diabetes mellitus BROTHER Gallbladder disease Heart disease Hypertension Kidney disease Kidney stones no ESRD Social History Smoking Status: Former Smoker Alcohol Use: none Drug Use: none Marital Status: Housing Status: lives with significant other Occupation Status: retired Allergies Coded Allergies: Diltiazem (Verified Allergy, Mild, RASH, 10/11/16) Aspirin (Verified Adverse Reaction, Mild, GI SYMPTOMS, 10/11/16) Lisinopril (Verified Adverse Reaction, Unknown, cough, 10/11/16) Propoxyphene (Verified Adverse Reaction, Unknown, STOMACH UPSET DIARRHEA, 10/11/16) Medications Current Inpatient Medications Medications (Trade) Dose Ordered Sig/Bertha Route Start Time Stop Time Status Last Admin Dose Admin Acetaminophen (Tylenol Tab) 650 mg Q4H PRN PO 10/11/16 20:30 11/10/16 20:29 Al Hydrox/Mg Hydrox/Simethicone (Maalox Max Susp) 15 ml Q4H PRN PO 10/11/16 20:30 11/10/16 20:29 Magnesium Hydroxide (Milk Of Magnesia Susp) 30 ml Q12H PRN PO 10/11/16 20:30 11/10/16 20:29 Ondansetron HCl (Zofran Inj) 4 mg Q6H PRN IV 10/11/16 20:30 11/10/16 20:29 Nitroglycerin (Nitrostat Tab) 0.4 mg UD PRN SL 10/11/16 20:30 11/10/16 20:29 Docusate Sodium (coLACE CAP) 100 mg BID PO 10/12/16 09:00 11/11/16 08:59 10/13/16 20:44 100 MG Fluticasone Propionate (Flonase Nasal Kinsey) 2 sprays DAILY ALDEN 10/12/16 09:00 11/11/16 08:59 10/14/16 08:17 2 SPRAYS Multivitamins (Multivitamin Tab) 1 tab QAM PO 10/12/16 09:00 11/11/16 08:59 10/14/16 08:18 1 TAB Ranitidine HCl (zANTac TAB) 150 mg BID PO 10/12/16 09:00 11/11/16 08:59 10/14/16 08:18 150 MG Simvastatin (Zocor Tab) 20 mg QPM PO 10/12/16 21:00 11/11/16 20:59 10/13/16 20:50 20 MG Tamsulosin HCl (Flomax Cap) 0.4 mg HS PO 10/12/16 21:00 11/11/16 20:59 10/13/16 20:50 0.4 MG Zolpidem Tartrate (Ambien Tab) 5 mg HS PRN PO 10/11/16 20:30 11/10/16 20:29 Insulin Detemir (Levemir Flexpen/ FlexTouch) SEE PROTOCOL BID SC 10/11/16 21:00 11/10/16 20:59 10/14/16 08:20 8 UNIT Insulin Aspart (novoLOG ASPART) SLIDING SCALE G... ACHS SC 10/11/16 21:00 11/10/16 20:59 10/14/16 12:34 7 UNITS Metoprolol Tartrate (Lopressor Iv) 2.5 mg Q4 PRN IV 10/11/16 20:30 11/10/16 20:29 Miscellaneous Information (Consult Glycemic Management Pharmacy) 1 ea UD PRN N/A 10/11/16 20:41 11/10/16 20:40 Tramadol HCl (Ultram Tab) 50 mg TID PRN PO 10/11/16 20:45 11/10/16 20:44 Losartan Potassium (coZAAR TAB) 50 mg DAILY PO 10/12/16 09:00 11/11/16 08:59 10/14/16 08:18 50 MG Glucose (Glucose 40% Gel) 15-30 GRAMS 15 GRAMS... UD PRN PO 10/11/16 21:00 11/10/16 20:59 Glucose (Glucose Chew Tab) 4-8 Tablets 4 Tabl... UD PRN PO 10/11/16 21:00 11/10/16 20:59 Dextrose (Dextrose 50% 50ML Syringe) 25-50ML OF 50% DW IV FOR... UD PRN IV 10/11/16 21:00 11/10/16 20:59 Glucagon (Glucagon Inj) 1 mg UD PRN SQ 10/11/16 21:00 11/10/16 20:59 Heparin Sodium/ Dextrose 500 ml @ 21 mls/hr [id number] PRN IV 10/11/16 22:45 11/10/16 22:44 10/14/16 00:04 21 MLS/HR Cholecalciferol (Vitamin D Tab) 1,000 inter.unit DAILY PO 10/13/16 09:00 11/11/16 08:59 10/14/16 08:18 1,000 INTER.UNIT Warfarin Sodium (Coumadin Tab) 5 mg DAILY@16 PO 10/12/16 16:00 11/11/16 15:59 10/13/16 15:34 5 MG Prednisone (PredniSONE TAB) 40 mg DAILY PO 10/13/16 09:00 11/12/16 08:59 10/14/16 08:18 40 MG Ipratropium Progreso (Atrovent 0.02% 0.5MG/2.5ML Neb) 0.5 mg Q6R PRN INH 10/12/16 15:00 11/11/16 02:59 10/14/16 08:37 0.5 MG Levalbuterol (Xopenex 1.25MG/ 0.5ML Neb) 1.25 mg Q6R PRN INH 10/12/16 15:00 11/11/16 02:59 10/14/16 08:38 0.63 MG Azithromycin (Zithromax Tab) 500 mg QPM PO 10/13/16 21:00 10/20/16 20:59 10/13/16 21:24 500 MG Cefdinir (Omnicef Cap) 300 mg BID PO 10/13/16 21:00 10/20/16 20:59 10/14/16 08:18 300 MG Mometasone Furoate/ Formoterol Fumar (Dulera) 2 ea BID INH 10/14/16 20:00 11/13/16 19:59 Home Meds and Scripts Medications Dose Route/Sig Max Daily Dose Days Date Category Dose Instructions Cozaar (Losartan Potassium) 50 Mg Tab 50 Mg PO DAILY 10/11/16 Rx Spiriva Respimat (Tiotropium Progreso Monohydrate) 2.5 Mcg/Act Spr 2 Puffs INH DAILY 10/11/16 Rx Tramadol HCl 50 Mg Tab 1 Tab PO TID PRN 10/11/16 Rx Prednisone 10 Mg Tab 0 PO UD 4 10/11/16 Reported STERAPRED 10MG 12 DAY Novolog Flexpen (Insulin Aspart) 100 Units/Ml Inj 1 Dose SQ ACHS 10/11/16 Reported SLIDING SCALE. APPROX 10UNITS BID Vitamin D3 (Cholecalciferol) 2,000 Unit Cap 1 Cap PO DAILY 10/11/16 Reported Ranitidine HCl 150 Mg Tab 1 Tab PO BID 10/11/16 Reported Atrovent 0.02% Soln (Ipratropium Progreso) 2.5 Ml Nebu 1 Dose NEB QID 10/11/16 Reported Levaquin (Levofloxacin) 500 Mg Tab 1 Tab PO DAILY 10/11/16 Reported Fluticasone Propionate 120 Sprays/6000 Mcg Inha 2 Sprays ALDEN DAILY 10/11/16 Reported Docusate Sodium 100 Mg Cap 100 Mg PO BID 30 08/10/16 Rx Glucosamine Chondroitin (Vlrorahwsuh-Cwikbmaxnoi-Wtx C-) 1 Tab Tab 1 Tab PO QAM 07/24/16 Reported Duoneb (Ipratropium-Albuterol) 3 Ml Nebu 1 Treatment INH Q4H PRN 07/24/16 Reported Dulera 200/5 Mcg (Mometasone Furoate-Formoterol) 1 Aer Aer 2 Puffs INH BID 30 07/24/16 Reported Multivitamin (Multivitamins) Tab 1 Tab PO QAM 06/29/16 Reported Tylenol (Acetaminophen) 500 Mg Tab 1,000 Mg PO DIRECTED PRN 06/29/16 Reported Ambien (Zolpidem Tartrate) 5 Mg Tab 5-10 Mg PO HS PRN 05/14/16 Reported Levemir (Insulin Detemir) 100 Units/Ml Inj SQ UD 05/14/16 Reported 14 units in am and 8 units in pm Aspirin 81 (Aspirin) 81 Mg Tab 81 Mg PO QAM 10/16/15 Reported Lasix (Furosemide) 20 Mg Tab 20 Mg PO Q2D 09/18/14 Reported AM Flomax (Tamsulosin Hcl) 0.4 Mg Cap 0.4 Mg PO HS 09/18/14 Reported Zocor (Simvastatin) 20 Mg Tab 20 Mg PO QPM 12/11/08 Reported take with supper Review of Systems Constitutional: + weakness, + fatigue, No fever, No sweats Eyes: No worsening of vision ENT: No hearing loss Respiratory: + cough, + shortness of breath, + dyspnea on exertion, No dyspnea at rest Cardiac: + edema (RLE only an dmild), No chest pain, No palpitations Abdomen: + diarrhea, No pain, No nausea, No vomiting Musculoskeletal: No joint pain, No muscle pain Male : No dysuria, No urinary frequency, No hematuria Neuro: No memory loss, No weakness, No balance problems Psych: No depression symptoms, No anxiety Heme: No abnormal bleeding/bruising Endo: + fatigue Skin: No rash, No itch Physical Exam Date Time Temp Pulse Resp B/P (MAP) Pulse Ox O2 Delivery O2 Flow Rate FiO2 10/14/16 08:49 Nasal Cannula 2.0 10/14/16 08:38 84 18 96 Nasal Cannula 2.0 10/14/16 08:37 65 157/91 (113) 10/14/16 08:31 129 161/106 (124) 92 2.0 10/14/16 07:40 36.5 53 18 148/84 (105) 97 Nasal Cannula 2.0 10/14/16 04:00 Nasal Cannula 2.0 10/14/16 00:00 Nasal Cannula 2.0 10/13/16 21:00 36.8 88 20 132/65 (87) 99 Nasal Cannula 4.0 10/13/16 20:01 36.5 57 19 174/84 (114) 94 Nasal Cannula 2.0 10/13/16 20:00 94 Nasal Cannula 2.0 10/13/16 18:14 36.4 54 16 90 2.0 10/13/16 16:00 Nasal Cannula 2.0 10/13/16 15:32 36.4 54 16 144/68 (93) 90 Nasal Cannula 2.0 General Appearance: WD/WN, no apparent distress, + pertinent finding (on 02nc, oriented x 3) Eyes: EOMI (periorbital edema) ENT: hearing grossly normal Neck: supple Respiratory/Chest: no respiratory distress, + decreased breath sounds, + rhonchi Cardiovascular: + tachycardia, + irregularly irregular Abdomen: normal bowel sounds (no gotti), non tender, soft Extremities: + pedal edema (R foot only) Neurologic/Psych: alert, normal mood/affect, oriented x 3 (ochoa, fluent speech) Skin: no jaundice, warm/dry, no rash Diagnostics Last 24 Hours Test 10/13/16 17:44 10/13/16 20:44 10/14/16 05:53 10/14/16 07:49 Bedside Glucose 248 mg/dl 230 mg/dl 93 mg/dl White Blood Count 9.37 K/uL Red Blood Count 4.23 M/uL Hemoglobin 11.9 g/dL Hematocrit 35.9 % Mean Corpuscular Volume 84.9 fL Mean Corpuscular Hemoglobin 28.1 pg Mean Corpuscular Hemoglobin Concent 33.1 g/dl Platelet Count 203 K/uL Mean Platelet Volume 10.8 fL Neutrophils (%) (Auto) 71.1 % Lymphocytes (%) (Auto) 18.5 % Monocytes (%) (Auto) 10.0 % Eosinophils (%) (Auto) 0.1 % Basophils (%) (Auto) 0.1 % Neutrophils # (Auto) 6.66 K/uL Lymphocytes # (Auto) 1.73 K/uL Monocytes # (Auto) 0.94 K/uL Eosinophils # (Auto) 0.01 K/uL Basophils # (Auto) 0.01 K/uL RDW Standard Deviation 43.9 fL RDW Coefficient of Variation 14.2 % Immature Granulocyte % (Auto) 0.2 % Immature Granulocyte # (Auto) 0.02 K/uL Prothrombin Time 16.5 SECONDS Prothromb Time International Ratio 1.5 Activated Partial Thromboplast Time 63.7 SECONDS Partial Thromboplastin Ratio 2.5 Sodium Level 143 mmol/L Potassium Level 3.9 mmol/L Chloride Level 107 mmol/L Carbon Dioxide Level 26 mmol/L Anion Gap 10.0 mmol/L Blood Urea Nitrogen 64 mg/dl Creatinine 1.90 mg/dl Est Creatinine Clear Calc Drug Dose 35.2 ml/min Estimated GFR () 38.3 Estimated GFR (Non- 33.0 BUN/Creatinine Ratio 33.9 Random Glucose 127 mg/dl Calcium Level 8.5 mg/dl Magnesium Level 2.4 mg/dl Test 10/14/16 11:42 Bedside Glucose 107 mg/dl Diagnostic Radiology: cxr admission 10/11 Emphysematous and chronic fibrotic/pleural thickening changes. Minimal superimposed parenchymal infiltrate right base. Assessment & Plan 76 y/o M w/ longstanding dm, CKD 3 baseline creatinine 1.6-1.9 over past year admitted w/ copd exacerbation and AF w/ RVR on 10/11. Creatinine at baseline on admission then trended up to peak on 10/13 at 2.3; today down to 1.9. HR have been as high as 140-150s, some transient hypotension as well. Getting started on coumadin. TANK on CKD 3, resolved w/ ongoing intermittent tachycardia (HR range this am 53- 121), HTN in the setting of acute illness, suspect prerenal/ischemic related to RVR. not oliguric. -cont ARB which he appears to be tolerating <<>> if needs more BP med for rate control, could stop ARB to get more room on BP -no current beta blockade ordered but may need some; defer to cardiology/ hospital service on this; dilt allergy noted -low dose po lasix currently on hold >> could reintroduce tomorrow or after d/c depending on clinical status -he has 12/19 f/u in CKD clinic w/ Dr Zaidi; no indication at this time that earlier outpt f/u needed -cont daily bmp and strict I/O -cont to avoid nsaids and unless lifesaving iv contrast -no indication at this time for renal imaging -if renal function worsens again, check uacm Appreciate consult; will follow with you. Care coordinated w/ Dr. Villalta
[2016-10-14 15:38] VITALS: BP 117/74; PULSE 109; TEMP 36.5; O2SAT 93
[2016-10-14] MEDS ORDERED: METOPROLOL TARTRATE 25 MG TAB PO ONE (16:00)
[2016-10-14 16:20] VITALS: O2SAT 93
[2016-10-14] MEDS: WARFARIN SOD 5 MG TAB PO SCH (16:35)
--- NOTE | 2016-10-14 16:50 | Progress Note ---
Medicine Progress Note Date & Time of Visit: Oct 14, 2016 at 15:29. Subjective 76 yoM presents with worsening shortness of breath and rapid atrial fibrillation , found to have RLL pneumonia. -intermittent coughing spells over night with mucous plug production -along with this are episodes of slight distress and tachycardia -currently not in distress and continues on 2L via nasal canula -reports some loose stools after starting the stool softener-stopping those now. -denies chest pain or shortness of breath. Objective Last 8 Hrs Date Time Temp Pulse Resp B/P (MAP) Pulse Ox O2 Delivery O2 Flow Rate FiO2 10/14/16 08:49 Nasal Cannula 2.0 10/14/16 08:38 84 18 96 Nasal Cannula 2.0 10/14/16 08:37 65 157/91 (113) 10/14/16 08:31 129 161/106 (124) 92 2.0 10/14/16 07:40 36.5 53 18 148/84 (105) 97 Nasal Cannula 2.0 Physical Exam: GEN: WNWD, in no acute distress, alert and appropriate, on oxygen HEENT: NC/AT, normal sclerae, MMM CARDIO: reg rate, S1/2 heard without m/g/r, trace swelling of RLE, no edema or swelling in the LLE LUNGS: clear to auscultation , no crackles, rales or wheezes. ABD: soft, non-tender, non-distended, no rebound or guarding, +BS EXTREMITY: warm and well-perfused. NEURO: CN 2-12 grossly intact, no gross focal deficits. MUSC: moves all extremities equally SKIN: warm and dry Laboratory Results: 10/14/16 05:53 Red Blood Count 4.23, Mean Corpuscular Volume 84.9, Mean Corpuscular Hemoglobin 28.1, Mean Corpuscular Hemoglobin Concent 33.1, Mean Platelet Volume 10.8, Neutrophils (%) (Auto) 71.1, Lymphocytes (%) (Auto) 18.5, Monocytes (%) (Auto) 10.0, Eosinophils (%) (Auto) 0.1, Basophils (%) (Auto) 0.1, Neutrophils # (Auto ) 6.66, Lymphocytes # (Auto) 1.73, Monocytes # (Auto) 0.94, Eosinophils # (Auto ) 0.01, Basophils # (Auto) 0.01 10/14/16 05:53 Test 10/11/16 16:50 10/12/16 04:45 10/12/16 12:40 10/14/16 05:53 D-Dimer 270 ug/L FEU (0-500) Total Bilirubin 0.5 mg/dl (0.2-1) Aspartate Amino Transf (AST/SGOT) 9 U/L (15-37) Alanine Aminotransferase (ALT/SGPT) 18 U/L (12-78) Alkaline Phosphatase 91 U/L (45-117) Pro-B-Type Natriuretic Peptide 1831 pg/ml (0-1800) Total Protein 7.1 gm/dl (6.4-8.2) Albumin 3.6 gm/dl (3.4-5.0) Globulin 3.5 gm/dl (2.5-4.0) Albumin/Globulin Ratio 1.0 (0.9-2) Thyroid Stimulating Hormone (TSH) 1.120 uIu/ml (0.300-4.500) Estimated Average Glucose 200 mg/dl Hemoglobin A1c 8.6 % (4.5-5.6) Total Creatine Kinase 48 U/L (39-308) Creatine Kinase MB 2.9 ng/ml (0.5-3.6) Creatine Kinase MB Ratio 6.0 (0-3.0) Troponin I 0.024 ng/ml (0-0.045) White Blood Count 9.37 K/uL (4.8-10.8) Red Blood Count 4.23 M/uL (4.7-6.1) Hemoglobin 11.9 g/dL (14.0-18.0) Hematocrit 35.9 % (42-52) Mean Corpuscular Volume 84.9 fL (80-100) Mean Corpuscular Hemoglobin 28.1 pg (25-34) Mean Corpuscular Hemoglobin Concent 33.1 g/dl (32-36) Platelet Count 203 K/uL (130-400) Mean Platelet Volume 10.8 fL (7.4-10.4) Neutrophils (%) (Auto) 71.1 % Lymphocytes (%) (Auto) 18.5 % Monocytes (%) (Auto) 10.0 % Eosinophils (%) (Auto) 0.1 % Basophils (%) (Auto) 0.1 % Neutrophils # (Auto) 6.66 K/uL (1.4-6.5) Lymphocytes # (Auto) 1.73 K/uL (1.2-3.4) Monocytes # (Auto) 0.94 K/uL (0.11-0.59) Eosinophils # (Auto) 0.01 K/uL (0-0.5) Basophils # (Auto) 0.01 K/uL (0-0.2) RDW Standard Deviation 43.9 fL (36.4-46.3) RDW Coefficient of Variation 14.2 % (11.5-14.5) Immature Granulocyte % (Auto) 0.2 % Immature Granulocyte # (Auto) 0.02 K/uL (0.00-0.02) Prothrombin Time 16.5 SECONDS (9.0-12.0) Prothromb Time International Ratio 1.5 (0.9-1.1) Activated Partial Thromboplast Time 63.7 SECONDS (21.0-31.0) Partial Thromboplastin Ratio 2.5 Anion Gap 10.0 mmol/L (3-11) Est Creatinine Clear Calc Drug Dose 35.2 ml/min Estimated GFR () 38.3 Estimated GFR (Non- 33.0 BUN/Creatinine Ratio 33.9 (10-20) Calcium Level 8.5 mg/dl (8.5-10.1) Magnesium Level 2.4 mg/dl (1.8-2.4) Test 10/14/16 11:42 Bedside Glucose 107 mg/dl (70-99) Last 24 Hours Test 10/13/16 17:44 10/13/16 20:44 10/14/16 05:53 10/14/16 07:49 Bedside Glucose 248 mg/dl 230 mg/dl 93 mg/dl White Blood Count 9.37 K/uL Red Blood Count 4.23 M/uL Hemoglobin 11.9 g/dL Hematocrit 35.9 % Mean Corpuscular Volume 84.9 fL Mean Corpuscular Hemoglobin 28.1 pg Mean Corpuscular Hemoglobin Concent 33.1 g/dl Platelet Count 203 K/uL Mean Platelet Volume 10.8 fL Neutrophils (%) (Auto) 71.1 % Lymphocytes (%) (Auto) 18.5 % Monocytes (%) (Auto) 10.0 % Eosinophils (%) (Auto) 0.1 % Basophils (%) (Auto) 0.1 % Neutrophils # (Auto) 6.66 K/uL Lymphocytes # (Auto) 1.73 K/uL Monocytes # (Auto) 0.94 K/uL Eosinophils # (Auto) 0.01 K/uL Basophils # (Auto) 0.01 K/uL RDW Standard Deviation 43.9 fL RDW Coefficient of Variation 14.2 % Immature Granulocyte % (Auto) 0.2 % Immature Granulocyte # (Auto) 0.02 K/uL Prothrombin Time 16.5 SECONDS Prothromb Time International Ratio 1.5 Activated Partial Thromboplast Time 63.7 SECONDS Partial Thromboplastin Ratio 2.5 Sodium Level 143 mmol/L Potassium Level 3.9 mmol/L Chloride Level 107 mmol/L Carbon Dioxide Level 26 mmol/L Anion Gap 10.0 mmol/L Blood Urea Nitrogen 64 mg/dl Creatinine 1.90 mg/dl Est Creatinine Clear Calc Drug Dose 35.2 ml/min Estimated GFR () 38.3 Estimated GFR (Non- 33.0 BUN/Creatinine Ratio 33.9 Random Glucose 127 mg/dl Calcium Level 8.5 mg/dl Magnesium Level 2.4 mg/dl Test 10/14/16 11:42 Bedside Glucose 107 mg/dl Assessment & Plan 76 yoM presents with worsening shortness of breath and rapid atrial fibrillation , found to have RLL pneumonia. 1. COPD exacerbation 2. Right lower lobe pneumonia 3. Atrial fibrillation w RVR 4. 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 CTEPH 6. TANK on CKD III 7. Chronic diastolic heart failure-compensated 8. HTN 9. BPH 10. DMII 11. GERD 12. Hyperlipidemia COPD exacerbation and rapid atrial fibrillation in the setting of RLL pneumonia. Improved after abx and steroids overnight. Still has some residual hypoxia. Baseline uses oxygen only at night. Wean as tolerated. Changed abx to PO yesterday. Some excessive coughing and mucous plug production with coughing this morning; intermittent episodes of atrial fibrillation with RVR with this. Continues on heparin drip. After episodes he will calm down and becomes more stable. Cont prednisone-no wheezing noted on exam. I ordered chest PT, flutter valve and incentive spirometry. Apprec pulm recs. Regarding his heart, he appears compensated from a heart failure standpoint and has no edema, Lasix on hold until discharge per Cards. Creat at baseline- appreciate Nephro recs. He was started on Metoprolol for his rapid heart rate which was held for parameters sometime over the last couple of days. This was restarted at a lower dose today for better heart rate control. Cont coumadin for goal 2-3 and please note, he does not need to stay in the hospital for bridging therapy. His INR is currently 1.5, so he will likely be therapeutic tomorrow but again, he does not need two days overlap with the heparin. This is ongoing for additional stroke protection while he is an inpatient. Docusate discontinued in setting of loose stools. DVT proph: heparin/coumadin Full Code Dispo-cont med/surg. awaiting clearance for pulm to discharge. doesn't need bridge to coumadin, but will remain on heparin drip while hospitalized for continued stroke prophylaxis unless otherwise directed by Cardiology. Danni Villalta DO [facility] Hospitalist Consultants: Cards, Pulm, Nephro Current Inpatient Medications: Current Inpatient Medications Medications (Trade) Dose Ordered Sig/Bertha Route Start Time Stop Time Status Last Admin Dose Admin Acetaminophen (Tylenol Tab) 650 mg Q4H PRN PO 10/11/16 20:30 11/10/16 20:29 Al Hydrox/Mg Hydrox/Simethicone (Maalox Max Susp) 15 ml Q4H PRN PO 10/11/16 20:30 11/10/16 20:29 Magnesium Hydroxide (Milk Of Magnesia Susp) 30 ml Q12H PRN PO 10/11/16 20:30 11/10/16 20:29 Ondansetron HCl (Zofran Inj) 4 mg Q6H PRN IV 10/11/16 20:30 11/10/16 20:29 Nitroglycerin (Nitrostat Tab) 0.4 mg UD PRN SL 10/11/16 20:30 11/10/16 20:29 Docusate Sodium (coLACE CAP) 100 mg BID PO 10/12/16 09:00 11/11/16 08:59 10/13/16 20:44 100 MG Fluticasone Propionate (Flonase Nasal [place]) 2 sprays DAILY ALDEN 10/12/16 09:00 11/11/16 08:59 10/14/16 08:17 2 SPRAYS Multivitamins (Multivitamin Tab) 1 tab QAM PO 10/12/16 09:00 11/11/16 08:59 10/14/16 08:18 1 TAB Ranitidine HCl (zANTac TAB) 150 mg BID PO 10/12/16 09:00 11/11/16 08:59 10/14/16 08:18 150 MG Simvastatin (Zocor Tab) 20 mg QPM PO 10/12/16 21:00 11/11/16 20:59 10/13/16 20:50 20 MG Tamsulosin HCl (Flomax Cap) 0.4 mg HS PO 10/12/16 21:00 11/11/16 20:59 10/13/16 20:50 0.4 MG Zolpidem Tartrate (Ambien Tab) 5 mg HS PRN PO 10/11/16 20:30 11/10/16 20:29 Insulin Detemir (Levemir Flexpen/ FlexTouch) SEE PROTOCOL BID SC 10/11/16 21:00 11/10/16 20:59 10/14/16 08:20 8 UNIT Insulin Aspart (novoLOG ASPART) SLIDING SCALE G... ACHS SC 10/11/16 21:00 11/10/16 20:59 10/14/16 12:34 7 UNITS Metoprolol Tartrate (Lopressor Iv) 2.5 mg Q4 PRN IV 10/11/16 20:30 11/10/16 20:29 Miscellaneous Information (Consult Glycemic Management Pharmacy) 1 ea UD PRN N/A 10/11/16 20:41 11/10/16 20:40 Tramadol HCl (Ultram Tab) 50 mg TID PRN PO 10/11/16 20:45 11/10/16 20:44 Losartan Potassium (coZAAR TAB) 50 mg DAILY PO 10/12/16 09:00 11/11/16 08:59 Future Hold 10/14/16 08:18 50 MG Glucose (Glucose 40% Gel) 15-30 GRAMS 15 GRAMS... UD PRN PO 10/11/16 21:00 11/10/16 20:59 Glucose (Glucose Chew Tab) 4-8 Tablets 4 Tabl... UD PRN PO 10/11/16 21:00 11/10/16 20:59 Dextrose (Dextrose 50% 50ML Syringe) 25-50ML OF 50% DW IV FOR... UD PRN IV 10/11/16 21:00 11/10/16 20:59 Glucagon (Glucagon Inj) 1 mg UD PRN SQ 10/11/16 21:00 11/10/16 20:59 Heparin Sodium/ Dextrose 500 ml @ 21 mls/hr [id number] PRN IV 10/11/16 22:45 11/10/16 22:44 10/14/16 00:04 21 MLS/HR Cholecalciferol (Vitamin D Tab) 1,000 inter.unit DAILY PO 10/13/16 09:00 11/11/16 08:59 10/14/16 08:18 1,000 INTER.UNIT Warfarin Sodium (Coumadin Tab) 5 mg DAILY@16 PO 10/12/16 16:00 11/11/16 15:59 10/13/16 15:34 5 MG Prednisone (PredniSONE TAB) 40 mg DAILY PO 10/13/16 09:00 11/12/16 08:59 10/14/16 08:18 40 MG Ipratropium [place] (Atrovent 0.02% 0.5MG/2.5ML Neb) 0.5 mg Q6R PRN INH 10/12/16 15:00 11/11/16 02:59 10/14/16 08:37 0.5 MG Levalbuterol (Xopenex 1.25MG/ 0.5ML Neb) 1.25 mg Q6R PRN INH 10/12/16 15:00 11/11/16 02:59 10/14/16 08:38 0.63 MG Azithromycin (Zithromax Tab) 500 mg QPM PO 10/13/16 21:00 10/20/16 20:59 10/13/16 21:24 500 MG Cefdinir (Omnicef Cap) 300 mg BID PO 10/13/16 21:00 10/20/16 20:59 10/14/16 08:18 300 MG Mometasone Furoate/ Formoterol Fumar (Dulera) 2 ea BID INH 10/14/16 20:00 11/13/16 19:59
[2016-10-14] MEDS: MOMETASONE FUROATE-FORMOTEROL (DULERA) 200mcg/5mcg per inh INH SCH (20:32)
[2016-10-14] MEDS: METOPROLOL TARTRATE 25 MG TAB PO SCH (20:33)
[2016-10-14] MEDS: TAMSULOSIN HCL 0.4 MG CAP PO SCH (20:33)
[2016-10-14] MEDS: AZITHROMYCIN 250 MG TAB PO SCH (20:35)
[2016-10-14] MEDS: SIMVASTATIN 20 MG TAB PO SCH (20:36)
[2016-10-15] VITALS (7 sets, daily range): BP systolic 105–161; BP diastolic 61–82; PULSE 58–89; TEMP 36.4–36.7; O2SAT 91–99
[2016-10-15] MEDS: HEPARIN 25,000 UNIT/500ML D5W 500 ML IV PRN (02:14)
[2016-10-15 07:44] LABS: HEMATOCRIT 42.6 % (42-52); MEAN CELL VOLUME 85.9 fL (80-100); MEAN CORPUSCULAR HEMOGLOBIN 26.4 pg (25-34); MEAN CORPUSCULAR HGB CONC 30.8 g/dl (32-36); MEAN PLATELET VOLUME 10.7 fL (7.4-10.4); PLATELET COUNT 233 K/uL (130-400); RED BLOOD COUNT 4.96 M/uL (4.7-6.1); WHITE BLOOD COUNT 8.99 K/uL (4.8-10.8)
[2016-10-15] MEDS: MOMETASONE FUROATE-FORMOTEROL (DULERA) 200mcg/5mcg per inh INH SCH ×2 (07:51→20:23)
[2016-10-15] MEDS: FLUTICASONE PROPIONATE NA SPR 16 GM BTL NAE SCH (07:52)
[2016-10-15] MEDS: METOPROLOL TARTRATE 25 MG TAB PO SCH ×2 (07:52→20:21)
[2016-10-15] MEDS: MULTIVITAMIN TAB PO SCH (07:52)
[2016-10-15] MEDS: CHOLECALCIFEROL 1000 INTER.UNIT TAB PO SCH (07:53)
[2016-10-15] MEDS: RANITIDINE HCL 150 MG TAB PO SCH ×2 (07:53→20:23)
[2016-10-15] MEDS: CEFDINIR 300 MG CAP PO SCH ×2 (07:53→20:22)
[2016-10-15] MEDS: INSULIN DETEMIR FLEXPEN/FLEX TOUCH 100 UNITS/ML 3ML SC SCH ×2 (07:55→20:28)
[2016-10-15 08:02] LABS: INR 2.6 (0.9-1.1); PARTIAL THROMBOPLASTIN RATIO 3.3; PROTHROMBIN TIME (PATIENT) 28.9 SECONDS (9.0-12.0)
[2016-10-15 08:09] LABS: BUN/CREATININE RATIO 30.2 (10-20); CREATININE 1.7 mg/dl (0.60-1.40); POTASSIUM 4.1 mmol/L (3.5-5.1)
[2016-10-15] MEDS: GUAIFENESIN 600 MG TABCR PO SCH ×2 (08:18→20:23)
[2016-10-15] MEDS: LEVALBUTEROL 1.25MG/0.5ML NEB INH SCH ×3 (09:00→19:24)
[2016-10-15] MEDS: IPRATROPIUM BROMIDE NEB SOLN 0.02% 2.5 ML VIAL INH SCH ×3 (09:00→19:24)
[2016-10-15] MEDS: INSULIN ASPART 100 UNITS/ML 3 ML PEN SC SCH ×4 (09:13→20:28)
--- NOTE | 2016-10-15 09:19 | DIAGNOSTIC IMAGING REPORT ---
CHEST 2 VIEWS ROUTINE HISTORY: f/u on infiltrate COMPARISON: Chest 10/11/2016. FINDINGS: Suture material within the right lung apex, unchanged. No pneumothorax. The heart remains mildly enlarged. Patchy bibasilar densities, right greater than left, persist. Left basilar densities appear to be chronic. There is a appears to be a superimposed airspace opacity within the chronic right basilar densities. No pleural effusions. No evidence for pulmonary edema. The upper lung zones remain clear IMPRESSION: No change in the right base airspace opacity on the background of chronic bibasilar changes. This favors a pneumonia. Follow-up is recommended to ensure resolution. Electronically signed by: Cali Sams M.D. 10/15/2016 9:18 AM Dictated Date/Time: 10/15/2016 9:16 AM
--- NOTE | 2016-10-15 11:00 | PULMONARY PROGRESS NOTE ---
DATE: 10/15/2016 TIME: 07:25 a.m. SUBJECTIVE: Yesterday morning, the patient was in respiratory distress. His heart rate at that time was in the 140s and was atrial fibrillation. He seemed comfortable near the end of my exam, but he states he was short of breath most of the day yesterday until about 04:30 p.m. At that time, the expectorated a large amount of white sputum. He then felt good overnight until he awakened short of breath this morning at 05:30 a.m. He states he has been short of breath since then. He tells me that nursing staff came in and increased his oxygen from 2 liters up to 5 liters. He does not appear in distress, but he claims he is still quite short of breath. He is not having any chest pains. OBJECTIVE: GENERAL: The patient appears fairly comfortable. Temperature was 36.7. EARS, NOSE, AND THROAT: Exam is unremarkable. HEART: Rate currently is 96. The rhythm irregularly irregular and compatible with atrial fibrillation. LUNGS: Auscultation revealed fairly good breath sounds bilaterally. He did not sound significantly congested. However, on 5 liters, his saturations were only 92%. ABDOMEN: Soft and nontender. EXTREMITIES: Showed no significant edema. LABORATORY DATA: The patient's labs from today are pending. His blood work had not been drawn at the time of this examination. IMPRESSIONS: 1. Right lower lobe infiltrate. 2. Emphysema. 3. Interstitial lung disease. 4. Calcified pleural plaques, likely secondary to asbestos exposure. 5. Possible pulmonary hypertension. 6. Atrial fibrillation. COMMENTS AND RECOMMENDATIONS: The patient still does not seem resolved in terms of his symptoms. He complains of intermittent episodes of severe dyspnea. This may be related to secretions. I am going to recheck a chest x-ray this morning. I would suggest trying to ambulate him a bit today if his oxygenation is acceptable and see what happens with his symptoms and his heart rate. He obviously would need to walk with oxygen. He does have oxygen at home, but I suspect he may need it on a continuous basis based upon his current status. It appears he may need 1 more day in the hospital in light of his recurrent acute symptoms. In light of the persistence of his respiratory symptoms, I am going to change his nebulizer treatments to 4 times per day. We will need to observe his heart rate response. He is on metoprolol now.
--- NOTE | 2016-10-15 14:00 | Pharmacy Progress Note ---
Glycemic Control: Progress Nt Date of Service Oct 15, 2016. Scope Glycemic Pharmacist consulted by for glycemic control and to write orders per [facility] inpatient glycemic control protocol. Objective Accuchecks BSG (last 24hrs): Test 10/14/16 16:54 10/14/16 20:00 10/15/16 07:30 10/15/16 07:40 Bedside Glucose 219 mg/dl (70-99) 298 mg/dl (70-99) 69 mg/dl (70-99) Random Glucose 69 mg/dl (70-99) Test 10/15/16 07:41 10/15/16 11:49 Bedside Glucose 70 mg/dl (70-99) 136 mg/dl (70-99) Laboratory Data (last 24hrs) Test 10/15/16 07:30 Anion Gap 7.0 mmol/L BUN/Creatinine Ratio 30.2 Blood Urea Nitrogen 51 mg/dl Creatinine 1.70 mg/dl Potassium Level 4.1 mmol/L Sodium Level 143 mmol/L White Blood Count 8.99 K/uL HbA1c: Test 10/12/16 04:45 Hemoglobin A1c 8.6 % (4.5-5.6) H Recent Pertinent Medications Outpatient Anti-diabetic Regimen: * Novolog SS, Levemir 14 units AM, 8 units PM * A1c = 8.6 % from 10/12/16 Risk Factors for Insulin Resistance: * Steroids: Prednisone 40mg daily * Infection: PNA, On Zithromax po + Cefdinir po * IVF: hep gtt * Diet:DM1 Assessment & Plan ASSESSMENT: * ADA & AACE recommend a goal blood sugar range 140-180 mg/dl for the majority of critically ill & non-critically ill patients. However, more stringent targets may be selected in individual cases. 10/15/16 * Pt with Prednisone induced hyperglycemia through the daytime hours then the effect wears off overnight. * Levemir being overdosed at bedtime to cover elevated daytime BSGs then subsequently leading to lows or near lows in the AM. FBG this morning was 70 mg /dl. * Will decrease Levemir dose ~20-40% (depending whether bedtime dose is administered or not). * Will start home dose of Levemir in the AM then per BSG scale at bedtime. * Novolog parameters were tightened yesterday, continue same today. PLAN FOR INPATIENT GLYCEMIC CONTROL: * Decrease - Levemir 14 units qAM + qHS per scale: * 0 units for BSG below 180 mg/dl * 5 units for BSG above 180 mg/dl * Novolog ACHS * Continue correction factor 25 mg/dl/unit * Continue carb ratio 1 unit per 7 grams CHO consumed * Continue goal range Low 110 mg/dL - High 140 mg/dL * Please note that the plan above was derived based on current level of insulin resistance and hospital stress. These recommendations are appropriate for inpatient admission only. Plan of care upon discharge will need to be reassessed to avoid potential outpatient hypo/hyperglycemia. Thank you.
[2016-10-15 14:58] LABS: PARTIAL THROMBOPLASTIN RATIO 2.5
[2016-10-15] MEDS ORDERED: WARFARIN SOD 3 MG TAB PO SCH (16:00)
--- NOTE | 2016-10-15 17:11 | Progress Note ---
Medicine Progress Note Date & Time of Visit: Oct 15, 2016 at 17:02. Subjective patient seen resting in bed, comfortable states he feels improved compared to yesterday breathing improved, still on 4 liters NC states he still has cough no palpitations, chest pain, dyspnea, dizziness no other symptoms Objective Last 8 Hrs Date Time Temp Pulse Resp B/P (MAP) Pulse Ox O2 Delivery O2 Flow Rate FiO2 10/15/16 15:46 36.6 89 20 105/61 (76) 91 Nasal Cannula 4.0 10/15/16 14:18 63 18 97 Nasal Cannula 4.0 10/15/16 10:24 Nasal Cannula 4.0 Physical Exam: General- oriented x 3, not in distress, speaks in sentences with no effort Head- atraumatic Eyes- EOMI, anicteric ENT- oropharynx clear Neck- supple, no JVD, no adenopathy, no thyromegaly Lungs- clear breath sounds bilaterally, no rales/wheezes Heart- normal rate, irregularly irregular rhythm; no murmurs Abdomen- normal bowel sounds, soft, nontender Extremities- no pretibial edema, no calf tenderness; peripheral pulses intact Neuro- alert, oriented x 3; no gross focal deficits Skin- warm & dry Laboratory Results: Last 24 Hours Test 10/14/16 20:00 10/15/16 07:30 10/15/16 07:40 10/15/16 07:41 Bedside Glucose 298 mg/dl 69 mg/dl 70 mg/dl White Blood Count 8.99 K/uL Red Blood Count 4.96 M/uL Hemoglobin 13.1 g/dL Hematocrit 42.6 % Mean Corpuscular Volume 85.9 fL Mean Corpuscular Hemoglobin 26.4 pg Mean Corpuscular Hemoglobin Concent 30.8 g/dl RDW Standard Deviation 43.9 fL RDW Coefficient of Variation 14.1 % Platelet Count 233 K/uL Mean Platelet Volume 10.7 fL Prothrombin Time 28.9 SECONDS Prothromb Time International Ratio 2.6 Activated Partial Thromboplast Time 86.1 SECONDS Partial Thromboplastin Ratio 3.3 Sodium Level 143 mmol/L Potassium Level 4.1 mmol/L Chloride Level 107 mmol/L Carbon Dioxide Level 29 mmol/L Anion Gap 7.0 mmol/L Blood Urea Nitrogen 51 mg/dl Creatinine 1.70 mg/dl Est Creatinine Clear Calc Drug Dose 39.3 ml/min Estimated GFR () 43.8 Estimated GFR (Non- 37.8 BUN/Creatinine Ratio 30.2 Random Glucose 69 mg/dl Calcium Level 9.0 mg/dl Test 10/15/16 11:49 10/15/16 14:33 10/15/16 16:43 Bedside Glucose 136 mg/dl 121 mg/dl Activated Partial Thromboplast Time 66.0 SECONDS Partial Thromboplastin Ratio 2.5 Assessment & Plan 76 year old male with history of COPD, A fib, Asthma, DM, HTN, presenting with shortness of breath. 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 -- management per #1 TANK on CKD III -- resolved Chronic diastolic heart failure -- euvolemic DMII -- on ISS, Lantus HTN -- stable BPH - stable GERD Hyperlipidemia -- stable DVT proph: coumadin Full Code Dispo-cont med/surg pending anticipate d/c home when medically stable, cleared by Pulmonary uses O2 at HS, may need 24hours oxygen supplement Consultants: Cards, Pulm, Nephro Current Inpatient Medications: Current Inpatient Medications Medications (Trade) Dose Ordered Sig/Bertha Route Start Time Stop Time Status Last Admin Dose Admin Acetaminophen (Tylenol Tab) 650 mg Q4H PRN PO 10/11/16 20:30 11/10/16 20:29 Al Hydrox/Mg Hydrox/Simethicone (Maalox Max Susp) 15 ml Q4H PRN PO 10/11/16 20:30 11/10/16 20:29 Magnesium Hydroxide (Milk Of Magnesia Susp) 30 ml Q12H PRN PO 10/11/16 20:30 11/10/16 20:29 Ondansetron HCl (Zofran Inj) 4 mg Q6H PRN IV 10/11/16 20:30 11/10/16 20:29 Nitroglycerin (Nitrostat Tab) 0.4 mg UD PRN SL 10/11/16 20:30 11/10/16 20:29 Fluticasone Propionate (Flonase Nasal [place]) 2 sprays DAILY [place] 10/12/16 09:00 11/11/16 08:59 10/15/16 07:52 2 SPRAYS Multivitamins (Multivitamin Tab) 1 tab QAM PO 10/12/16 09:00 11/11/16 08:59 10/15/16 07:52 1 TAB Ranitidine HCl (zANTac TAB) 150 mg BID PO 10/12/16 09:00 11/11/16 08:59 10/15/16 07:53 150 MG Simvastatin (Zocor Tab) 20 mg QPM PO 10/12/16 21:00 11/11/16 20:59 10/14/16 20:36 20 MG Tamsulosin HCl (Flomax Cap) 0.4 mg HS PO 10/12/16 21:00 11/11/16 20:59 10/14/16 20:33 0.4 MG Zolpidem Tartrate (Ambien Tab) 5 mg HS PRN PO 10/11/16 20:30 11/10/16 20:29 Insulin Aspart (novoLOG ASPART) SLIDING SCALE G... ACHS SC 10/11/16 21:00 11/10/16 20:59 10/15/16 12:34 12 UNITS Metoprolol Tartrate (Lopressor Iv) 2.5 mg Q4 PRN IV 10/11/16 20:30 11/10/16 20:29 Miscellaneous Information (Consult Glycemic Management Pharmacy) 1 ea UD PRN N/A 10/11/16 20:41 11/10/16 20:40 Tramadol HCl (Ultram Tab) 50 mg TID PRN PO 10/11/16 20:45 11/10/16 20:44 Losartan Potassium (coZAAR TAB) 50 mg DAILY PO 10/12/16 09:00 11/11/16 08:59 Future Hold 10/14/16 08:18 50 MG Glucose (Glucose 40% Gel) 15-30 GRAMS 15 GRAMS... UD PRN PO 10/11/16 21:00 11/10/16 20:59 Glucose (Glucose Chew Tab) 4-8 Tablets 4 Tabl... UD PRN PO 10/11/16 21:00 11/10/16 20:59 Dextrose (Dextrose 50% 50ML Syringe) 25-50ML OF 50% DW IV FOR... UD PRN IV 10/11/16 21:00 11/10/16 20:59 Glucagon (Glucagon Inj) 1 mg UD PRN SQ 10/11/16 21:00 11/10/16 20:59 Cholecalciferol (Vitamin D Tab) 1,000 inter.unit DAILY PO 10/13/16 09:00 11/11/16 08:59 10/15/16 07:53 1,000 INTER.UNIT Prednisone (PredniSONE TAB) 40 mg DAILY PO 10/13/16 09:00 11/12/16 08:59 10/15/16 07:53 40 MG Azithromycin (Zithromax Tab) 500 mg QPM PO 10/13/16 21:00 10/20/16 20:59 10/14/16 20:35 500 MG Cefdinir (Omnicef Cap) 300 mg BID PO 10/13/16 21:00 10/20/16 20:59 10/15/16 07:53 300 MG Mometasone Furoate/ Formoterol Fumar (Dulera) 2 ea BID INH 10/14/16 20:00 11/13/16 19:59 10/15/16 07:51 2 EA Metoprolol Tartrate (Lopressor Tab) 12.5 mg BID PO 10/14/16 20:00 11/13/16 19:59 10/15/16 07:52 12.5 MG Ipratropium [place] (Atrovent 0.02% 0.5MG/2.5ML Neb) 0.5 mg Q6R INH 10/15/16 09:00 11/11/16 02:59 10/15/16 14:18 0.5 MG Levalbuterol (Xopenex 1.25MG/ 0.5ML Neb) 1.25 mg Q6R INH 10/15/16 09:00 11/11/16 02:59 10/15/16 14:18 1.25 MG Guaifenesin (Mucinex Contr Rel Tab) 1,200 mg Q12 PO 10/15/16 09:00 11/14/16 08:59 10/15/16 08:18 1,200 MG Insulin Detemir (Levemir Flexpen/ FlexTouch) SEE PROTOCOL TEXT HS SC 10/15/16 21:00 11/14/16 20:59 Insulin Detemir (Levemir Flexpen/ FlexTouch) 14 unit QAM SC 10/16/16 08:00 11/15/16 07:59 Warfarin Sodium (Coumadin Tab) 3 mg DAILY@16 PO 10/15/16 16:00 11/11/16 15:59 10/15/16 15:49 3 MG
[2016-10-15] MEDS: TAMSULOSIN HCL 0.4 MG CAP PO SCH (20:21)
[2016-10-15] MEDS: AZITHROMYCIN 250 MG TAB PO SCH (20:21)
[2016-10-15] MEDS: SIMVASTATIN 20 MG TAB PO SCH (20:23)
[2016-10-16] VITALS (7 sets, daily range): BP systolic 131–144; BP diastolic 69–76; PULSE 51–64; TEMP 36.6–36.7; O2SAT 90–99
[2016-10-16] MEDS: LEVALBUTEROL 1.25MG/0.5ML NEB INH SCH ×4 (02:02→19:23)
[2016-10-16] MEDS: IPRATROPIUM BROMIDE NEB SOLN 0.02% 2.5 ML VIAL INH SCH ×4 (02:02→19:23)
[2016-10-16 06:35] LABS: INR 3.1 (0.9-1.1); PROTHROMBIN TIME (PATIENT) 34.6 SECONDS (9.0-12.0)
[2016-10-16] MEDS ORDERED: INSULIN DETEMIR FLEXPEN/FLEX TOUCH 100 UNITS/ML 3ML SC SCH ×2 (08:00)
[2016-10-16] MEDS: METOPROLOL TARTRATE 25 MG TAB PO SCH ×2 (08:00→20:00)
[2016-10-16] MEDS: MOMETASONE FUROATE-FORMOTEROL (DULERA) 200mcg/5mcg per inh INH SCH ×2 (08:03→20:44)
[2016-10-16] MEDS: FLUTICASONE PROPIONATE NA SPR 16 GM BTL NAE SCH (08:03)
[2016-10-16] MEDS: CHOLECALCIFEROL 1000 INTER.UNIT TAB PO SCH (08:04)
[2016-10-16] MEDS: RANITIDINE HCL 150 MG TAB PO SCH ×2 (08:04→20:38)
[2016-10-16] MEDS: CEFDINIR 300 MG CAP PO SCH ×2 (08:04→20:40)
[2016-10-16] MEDS: MULTIVITAMIN TAB PO SCH (08:04)
[2016-10-16] MEDS: GUAIFENESIN 600 MG TABCR PO SCH ×2 (08:04→20:39)
[2016-10-16] MEDS: INSULIN ASPART 100 UNITS/ML 3 ML PEN SC SCH ×4 (08:10→20:47)
--- NOTE | 2016-10-16 11:14 | Pharmacy Progress Note ---
Glycemic Control: Progress Nt Date of Service Oct 16, 2016. Scope Glycemic Pharmacist consulted by Dr Burns on [date] for glycemic control and to write orders per [facility] inpatient glycemic control protocol. Objective Accuchecks BSG (last 24hrs): Test 10/15/16 11:49 10/15/16 16:43 10/15/16 20:04 10/16/16 07:41 Bedside Glucose 136 mg/dl (70-99) 121 mg/dl (70-99) 291 mg/dl (70-99) 338 mg/dl (70-99) HbA1c: Test 10/12/16 04:45 Hemoglobin A1c 8.6 % (4.5-5.6) H Recent Pertinent Medications Outpatient Anti-diabetic Regimen: * Novolog SS, Levemir 14 units AM, 8 units PM * A1c = 8.6 % from 10/12/16 The patient is currently receiving: * Basal insulin: Levemir 14 units every AM, 0 or 5 units qPM * Correctional Insulin: Novolog Correction per scale ACHS Goal Range: Low 110 mg/dL - High 140 mg/dL Correction Factor: 25 mg/dL/unit * Prandial insulin: Per carb ratio of 1 unit per 7 grams CHO consumed Risk Factors for Insulin Resistance: * Steroids: prednisone 40 mg qAM * Infection: on Zithromax and cefdinir for pneumonia * Diet: type 1 diabetes Assessment & Plan ASSESSMENT: 10/15/16 * Pt with Prednisone induced hyperglycemia through the daytime hours then the effect wears off overnight. * Levemir being overdosed at bedtime to cover elevated daytime BSGs then subsequently leading to lows or near lows in the AM. FBG this morning was 70 mg /dl. * Will decrease Levemir dose ~20-40% (depending whether bedtime dose is administered or not). * Will start home dose of Levemir in the AM then per BSG scale at bedtime. * Novolog parameters were tightened yesterday, continue same today. 10/16/16 * Patient is currently receiving an average of 50 units of insulin per day * ~20 units of basal insulin * ~30 units of prandial/correctional insulin * BSGs ranging 69-338 over the past 24hrs * Risk factors for insulin resistance are constant over the past 24hrs * Steroid dosing unchanged * Lantus dose increased already today from yesterday; therefore, will not make changes to insulin regimen at this time * Will plan to follow up tomorrow after 24 hours of higher basal dose * Hesitant to be overly aggressive with hypoglycemia yesterday PLAN FOR INPATIENT GLYCEMIC CONTROL: * Continue Levemir 14 units SQ qAM, 0 or 5 units qPM (based upon BSG) * Continue correction factor of 25 mg/dl/unit * Continue carb ratio of 1 unit per 7 grams CHO consumed * Continue goal range of Low 110 mg/dL - High 140 mg/dL * Please note that the plan above was derived based on current level of insulin resistance and hospital stress. These recommendations are appropriate for inpatient admission only. Plan of care upon discharge will need to be reassessed to avoid potential outpatient hypo/hyperglycemia. Thank you.
--- NOTE | 2016-10-16 13:34 | Progress Note ---
Medicine Progress Note Date & Time of Visit: Oct 16, 2016 at 13:34. Subjective patient seen resting in bedside chair, comfortable states breathing continues to improve still has coughing episodes, non productive denies chest pain, dyspnea, palpitations, dizziness no other symptoms Objective Last 8 Hrs Date Time Temp Pulse Resp B/P (MAP) Pulse Ox O2 Delivery O2 Flow Rate FiO2 10/16/16 13:03 Nasal Cannula 2.0 10/16/16 07:50 36.6 59 18 131/69 (89) 96 Nasal Cannula 2.0 10/16/16 07:26 51 18 99 Nasal Cannula 3.0 Physical Exam: General- oriented x 3, not in distress, speaks in sentences with no effort Eyes- anicteric Neck- supple, no JVD Lungs- (+) mild expiratory wheeze on the left, clear on the right Heart- normal rate, irregularly irregular rhythm; no murmurs Abdomen- normal bowel sounds, soft, nontender Extremities- no pretibial edema, no calf tenderness Neuro- alert, oriented x 3; no gross focal deficits Skin- warm & dry Laboratory Results: Last 24 Hours Test 10/15/16 14:33 10/15/16 16:43 10/15/16 20:04 10/16/16 05:59 Activated Partial Thromboplast Time 66.0 SECONDS Partial Thromboplastin Ratio 2.5 Bedside Glucose 121 mg/dl 291 mg/dl Prothrombin Time 34.6 SECONDS Prothromb Time International Ratio 3.1 Test 10/16/16 07:41 10/16/16 11:26 Bedside Glucose 338 mg/dl 254 mg/dl Assessment & Plan 76 year old male with history of COPD, A fib, Asthma, DM, HTN, presenting with shortness of breath. 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 -- management per #1 TANK on CKD III -- resolved Chronic diastolic heart failure -- euvolemic DMII -- on ISS, Lant Pharm on board HTN -- stable BPH - stable GERD Hyperlipidemia -- stable DVT proph: coumadin Full Code Dispo-cont med/surg pending anticipate d/c home when medically stable, cleared by Pulmonary uses O2 at HS, may need 24hours oxygen supplement Consultants: Cards, Pulm, Nephro Current Inpatient Medications: Current Inpatient Medications Medications (Trade) Dose Ordered Sig/Bertha Route Start Time Stop Time Status Last Admin Dose Admin Acetaminophen (Tylenol Tab) 650 mg Q4H PRN PO 10/11/16 20:30 11/10/16 20:29 Al Hydrox/Mg Hydrox/Simethicone (Maalox Max Susp) 15 ml Q4H PRN PO 10/11/16 20:30 11/10/16 20:29 Magnesium Hydroxide (Milk Of Magnesia Susp) 30 ml Q12H PRN PO 10/11/16 20:30 11/10/16 20:29 Ondansetron HCl (Zofran Inj) 4 mg Q6H PRN IV 10/11/16 20:30 11/10/16 20:29 Nitroglycerin (Nitrostat Tab) 0.4 mg UD PRN SL 10/11/16 20:30 11/10/16 20:29 Fluticasone Propionate (Flonase Nasal [place]) 2 sprays DAILY ALDEN 10/12/16 09:00 11/11/16 08:59 10/16/16 08:03 2 SPRAYS Multivitamins (Multivitamin Tab) 1 tab QAM PO 10/12/16 09:00 11/11/16 08:59 10/16/16 08:04 1 TAB Ranitidine HCl (zANTac TAB) 150 mg BID PO 10/12/16 09:00 11/11/16 08:59 10/16/16 08:04 150 MG Simvastatin (Zocor Tab) 20 mg QPM PO 10/12/16 21:00 11/11/16 20:59 10/15/16 20:23 20 MG Tamsulosin HCl (Flomax Cap) 0.4 mg HS PO 10/12/16 21:00 11/11/16 20:59 10/15/16 20:21 0.4 MG Zolpidem Tartrate (Ambien Tab) 5 mg HS PRN PO 10/11/16 20:30 11/10/16 20:29 Insulin Aspart (novoLOG ASPART) SLIDING SCALE G... ACHS SC 10/11/16 21:00 11/10/16 20:59 10/16/16 13:02 11 UNITS Metoprolol Tartrate (Lopressor Iv) 2.5 mg Q4 PRN IV 10/11/16 20:30 11/10/16 20:29 Miscellaneous Information (Consult Glycemic Management Pharmacy) 1 ea UD PRN N/A 10/11/16 20:41 11/10/16 20:40 Tramadol HCl (Ultram Tab) 50 mg TID PRN PO 10/11/16 20:45 11/10/16 20:44 Losartan Potassium (coZAAR TAB) 50 mg DAILY PO 10/12/16 09:00 11/11/16 08:59 Future Hold 10/14/16 08:18 50 MG Glucose (Glucose 40% Gel) 15-30 GRAMS 15 GRAMS... UD PRN PO 10/11/16 21:00 11/10/16 20:59 Glucose (Glucose Chew Tab) 4-8 Tablets 4 Tabl... UD PRN PO 10/11/16 21:00 11/10/16 20:59 Dextrose (Dextrose 50% 50ML Syringe) 25-50ML OF 50% DW IV FOR... UD PRN IV 10/11/16 21:00 11/10/16 20:59 Glucagon (Glucagon Inj) 1 mg UD PRN SQ 10/11/16 21:00 11/10/16 20:59 Cholecalciferol (Vitamin D Tab) 1,000 inter.unit DAILY PO 10/13/16 09:00 11/11/16 08:59 10/16/16 08:04 1,000 INTER.UNIT Prednisone (PredniSONE TAB) 40 mg DAILY PO 10/13/16 09:00 11/12/16 08:59 10/16/16 08:04 40 MG Azithromycin (Zithromax Tab) 500 mg QPM PO 10/13/16 21:00 10/20/16 20:59 10/15/16 20:21 500 MG Cefdinir (Omnicef Cap) 300 mg BID PO 10/13/16 21:00 10/20/16 20:59 10/16/16 08:04 300 MG Mometasone Furoate/ Formoterol Fumar (Dulera) 2 ea BID INH 10/14/16 20:00 11/13/16 19:59 10/16/16 08:03 2 EA Metoprolol Tartrate (Lopressor Tab) 12.5 mg BID PO 10/14/16 20:00 11/13/16 19:59 10/15/16 20:21 12.5 MG Ipratropium [place] (Atrovent 0.02% 0.5MG/2.5ML Neb) 0.5 mg Q6R INH 10/15/16 09:00 11/11/16 02:59 10/16/16 07:25 0.5 MG Levalbuterol (Xopenex 1.25MG/ 0.5ML Neb) 1.25 mg Q6R INH 10/15/16 09:00 11/11/16 02:59 10/16/16 07:26 1.25 MG Guaifenesin (Mucinex Contr Rel Tab) 1,200 mg Q12 PO 10/15/16 09:00 11/14/16 08:59 10/16/16 08:04 1,200 MG Insulin Detemir (Levemir Flexpen/ FlexTouch) SEE PROTOCOL TEXT HS LA 10/15/16 21:00 11/14/16 20:59 10/15/16 20:28 5 UNIT Insulin Detemir (Levemir Flexpen/ FlexTouch) 14 unit QAM SC 10/16/16 08:00 11/15/16 07:59 10/16/16 08:11 14 UNIT
--- NOTE | 2016-10-16 16:17 | Pulmonology Progress Note ---
Pulmonary Progress Note Date of Service Oct 16, 2016. Attending Dr. Patrick Subjective Continues to cough intermittently with associated dyspnea. Feels as though there is mucous that is difficult to expectorate- when he is able, this is thin and clear. No hemoptysis. HR has been controlled. Has been ambulating throughout the room. He is anxious for discharge. Objective 76-yo male admitted through [facility] ER with 3-day h/o increase dyspnea despite outpatient levofloxacin and prednisone. Prior records were reviewed. 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 Former tobacco: 80-pack year, quit 1995.. In the ER he was hypoxic. Labs notable for TANK/DKC. CXR consistent with emphysema and chronic fibrotic changes with superimposed infiltrate at the right base. EKG consistent with afib/flutter. He was treated with pip-tazo, azithromycin, solu-medrol and scheduled bronchodilators. Additional acute on chronic diastolic HF. 10/12/16: EF 50-55%, mod dilation of left atrium, diastolic dysfunction. Atrial fibrillation. His hospital course has been complicated by intermittent episodes of severe dyspnea with cough and atrial fibrillation. CXR 10/15/16: no change in right base airspace opacities. Today: - 96-99% RA - Mild tachycardia: 50s, afebrile, HD stable - #4 azithromycin and cefdinir, 40mg prednisone - No new labs Physical Exam: Constitutional: WDWN elderly male sitting in chair at bedside. No acute distress Head: + facial symmetry Eyes: EOMi, PERRLA, no injection Mouth: Moist mucous membranes. NO erythema or exudate. No post nasal gtt Respiratory: non-labored respirations. Cough provoked with deep inspiration. Bilateral rales and bronchial breath sounds throughout CV: Rate controlled. Irregularly irregular rhythm. No MRG Integumentary: Mild bilateral clubbing MSK/Extremities: Moving and developed symmetrically Neurologic; A&O. Good data recall. Appropriate affect. Assessment & Plan 76-yo male admitted with hypoxic exacerbation of ILD and afib RVR: - Clinically improved - Continue pulmonary toilet, fluter, and scheduled bronchodilators - 2-step prior to discharge - Will see in pulmonary office 2-weeks post discharge - will need repeat CT for resolution of infiltrate Patient reviewed and plan agreed with. Data Medications: Current Inpatient Medications Medications (Trade) Dose Ordered Sig/Bertha Route Start Time Stop Time Status Last Admin Dose Admin Acetaminophen (Tylenol Tab) 650 mg Q4H PRN PO 10/11/16 20:30 11/10/16 20:29 Al Hydrox/Mg Hydrox/Simethicone (Maalox Max Susp) 15 ml Q4H PRN PO 10/11/16 20:30 11/10/16 20:29 Magnesium Hydroxide (Milk Of Magnesia Susp) 30 ml Q12H PRN PO 10/11/16 20:30 11/10/16 20:29 Ondansetron HCl (Zofran Inj) 4 mg Q6H PRN IV 10/11/16 20:30 11/10/16 20:29 Nitroglycerin (Nitrostat Tab) 0.4 mg UD PRN SL 10/11/16 20:30 11/10/16 20:29 Fluticasone Propionate (Flonase Nasal [place]) 2 sprays DAILY ALDEN 10/12/16 09:00 11/11/16 08:59 10/16/16 08:03 2 SPRAYS Multivitamins (Multivitamin Tab) 1 tab QAM PO 10/12/16 09:00 11/11/16 08:59 10/16/16 08:04 1 TAB Ranitidine HCl (zANTac TAB) 150 mg BID PO 10/12/16 09:00 11/11/16 08:59 10/16/16 08:04 150 MG Simvastatin (Zocor Tab) 20 mg QPM PO 10/12/16 21:00 11/11/16 20:59 10/15/16 20:23 20 MG Tamsulosin HCl (Flomax Cap) 0.4 mg HS PO 10/12/16 21:00 11/11/16 20:59 10/15/16 20:21 0.4 MG Zolpidem Tartrate (Ambien Tab) 5 mg HS PRN PO 10/11/16 20:30 11/10/16 20:29 Insulin Aspart (novoLOG ASPART) SLIDING SCALE G... ACHS SC 10/11/16 21:00 11/10/16 20:59 10/16/16 13:02 11 UNITS Metoprolol Tartrate (Lopressor Iv) 2.5 mg Q4 PRN IV 10/11/16 20:30 11/10/16 20:29 Miscellaneous Information (Consult Glycemic Management Pharmacy) 1 ea UD PRN N/A 10/11/16 20:41 11/10/16 20:40 Tramadol HCl (Ultram Tab) 50 mg TID PRN PO 10/11/16 20:45 11/10/16 20:44 Losartan Potassium (coZAAR TAB) 50 mg DAILY PO 10/12/16 09:00 11/11/16 08:59 Future Hold 10/14/16 08:18 50 MG Glucose (Glucose 40% Gel) 15-30 GRAMS 15 GRAMS... UD PRN PO 10/11/16 21:00 11/10/16 20:59 Glucose (Glucose Chew Tab) 4-8 Tablets 4 Tabl... UD PRN PO 10/11/16 21:00 11/10/16 20:59 Dextrose (Dextrose 50% 50ML Syringe) 25-50ML OF 50% DW IV FOR... UD PRN IV 10/11/16 21:00 11/10/16 20:59 Glucagon (Glucagon Inj) 1 mg UD PRN SQ 10/11/16 21:00 11/10/16 20:59 Cholecalciferol (Vitamin D Tab) 1,000 inter.unit DAILY PO 10/13/16 09:00 11/11/16 08:59 10/16/16 08:04 1,000 INTER.UNIT Prednisone (PredniSONE TAB) 40 mg DAILY PO 10/13/16 09:00 11/12/16 08:59 10/16/16 08:04 40 MG Azithromycin (Zithromax Tab) 500 mg QPM PO 10/13/16 21:00 10/20/16 20:59 10/15/16 20:21 500 MG Cefdinir (Omnicef Cap) 300 mg BID PO 10/13/16 21:00 10/20/16 20:59 10/16/16 08:04 300 MG Mometasone Furoate/ Formoterol Fumar (Dulera) 2 ea BID INH 10/14/16 20:00 11/13/16 19:59 10/16/16 08:03 2 EA Metoprolol Tartrate (Lopressor Tab) 12.5 mg BID PO 10/14/16 20:00 11/13/16 19:59 10/15/16 20:21 12.5 MG Ipratropium [place] (Atrovent 0.02% 0.5MG/2.5ML Neb) 0.5 mg Q6R INH 10/15/16 09:00 11/11/16 02:59 10/16/16 14:08 0.5 MG Levalbuterol (Xopenex 1.25MG/ 0.5ML Neb) 1.25 mg Q6R INH 10/15/16 09:00 11/11/16 02:59 10/16/16 14:08 1.25 MG Guaifenesin (Mucinex Contr Rel Tab) 1,200 mg Q12 PO 10/15/16 09:00 11/14/16 08:59 10/16/16 08:04 1,200 MG Insulin Detemir (Levemir Flexpen/ FlexTouch) SEE PROTOCOL TEXT HS SC 10/15/16 21:00 11/14/16 20:59 10/15/16 20:28 5 UNIT Insulin Detemir (Levemir Flexpen/ FlexTouch) 14 unit QAM SC 10/16/16 08:00 11/15/16 07:59 10/16/16 08:11 14 UNIT I & O: 24-Hour Column 10/17/16 08:00 Intake Total 910 ml Balance 910 ml Vital Signs: Date Time Temp Pulse Resp B/P (MAP) Pulse Ox O2 Delivery O2 Flow Rate FiO2 10/16/16 16:13 36.7 62 18 144/76 (98) 90 Nasal Cannula 3.0 10/16/16 14:09 51 18 99 Nasal Cannula 3.0 10/16/16 13:03 Nasal Cannula 2.0 10/16/16 07:50 36.6 59 18 131/69 (89) 96 Nasal Cannula 2.0 10/16/16 07:26 51 18 99 Nasal Cannula 3.0 10/16/16 02:02 51 18 99 Nasal Cannula 3.0 10/16/16 00:00 Nasal Cannula 2.0 10/15/16 23:31 36.4 58 18 125/69 (87) 97 Nasal Cannula 3.0 10/15/16 19:24 60 18 97 Nasal Cannula 3.0 Laboratory Results: Last 24 Hours Test 10/15/16 16:43 10/15/16 20:04 10/16/16 05:59 10/16/16 07:41 Bedside Glucose 121 mg/dl 291 mg/dl 338 mg/dl Prothrombin Time 34.6 SECONDS Prothromb Time International Ratio 3.1 Test 10/16/16 11:26 Bedside Glucose 254 mg/dl
[2016-10-16] MEDS: TAMSULOSIN HCL 0.4 MG CAP PO SCH (20:39)
[2016-10-16] MEDS: AZITHROMYCIN 250 MG TAB PO SCH (20:40)
[2016-10-16] MEDS: SIMVASTATIN 20 MG TAB PO SCH (20:40)
[2016-10-16] MEDS: INSULIN DETEMIR FLEXPEN/FLEX TOUCH 100 UNITS/ML 3ML SC SCH (20:48)
[2016-10-17] VITALS (10 sets, daily range): BP systolic 147–171; BP diastolic 61–84; PULSE 50–67; TEMP 36.4–37; O2SAT 94–98; Ht 182.9 cm; Wt 89.4 kg
[2016-10-17] MEDS: LEVALBUTEROL 1.25MG/0.5ML NEB INH SCH ×3 (01:46→14:29)
[2016-10-17] MEDS: IPRATROPIUM BROMIDE NEB SOLN 0.02% 2.5 ML VIAL INH SCH ×3 (01:46→14:29)
[2016-10-17 07:00] LABS: INR 2.9 (0.9-1.1); PROTHROMBIN TIME (PATIENT) 32.1 SECONDS (9.0-12.0)
[2016-10-17 07:28] LABS: BUN/CREATININE RATIO 29.2 (10-20); CALCIUM 8.7 mg/dl (8.5-10.1); POTASSIUM 5.1 mmol/L (3.5-5.1)
[2016-10-17] MEDS ORDERED: INSULIN DETEMIR FLEXPEN/FLEX TOUCH 100 UNITS/ML 3ML SC SCH ×2 (08:00→21:00)
[2016-10-17] MEDS: METOPROLOL TARTRATE 25 MG TAB PO SCH (08:26)
[2016-10-17] MEDS: MULTIVITAMIN TAB PO SCH (08:27)
[2016-10-17] MEDS: GUAIFENESIN 600 MG TABCR PO SCH (08:27)
[2016-10-17] MEDS: RANITIDINE HCL 150 MG TAB PO SCH (08:27)
[2016-10-17] MEDS: CEFDINIR 300 MG CAP PO SCH (08:28)
[2016-10-17] MEDS: CHOLECALCIFEROL 1000 INTER.UNIT TAB PO SCH (08:28)
[2016-10-17] MEDS: FLUTICASONE PROPIONATE NA SPR 16 GM BTL NAE SCH (08:29)
[2016-10-17] MEDS: MOMETASONE FUROATE-FORMOTEROL (DULERA) 200mcg/5mcg per inh INH SCH (08:30)
[2016-10-17] MEDS: INSULIN ASPART 100 UNITS/ML 3 ML PEN SC SCH ×2 (08:34→12:58)
--- NOTE | 2016-10-17 09:12 | Pharmacy Progress Note ---
Glycemic Control: Progress Nt Date of Service Oct 17, 2016. Scope Glycemic Pharmacist consulted by Dr Burns on 10/11 for glycemic control and to write orders per [facility] inpatient glycemic control protocol. Objective Accuchecks BSG (last 24hrs): Test 10/16/16 11:26 10/16/16 16:44 10/16/16 20:21 10/17/16 06:36 Bedside Glucose 254 mg/dl (70-99) 247 mg/dl (70-99) 299 mg/dl (70-99) Random Glucose 291 mg/dl (70-99) Test 10/17/16 07:47 Bedside Glucose 299 mg/dl (70-99) Laboratory Data (last 24hrs) Test 10/17/16 06:36 Anion Gap 8.0 mmol/L BUN/Creatinine Ratio 29.2 Blood Urea Nitrogen 58 mg/dl Creatinine 2.00 mg/dl Potassium Level 5.1 mmol/L Sodium Level 138 mmol/L HbA1c: Test 10/12/16 04:45 Hemoglobin A1c 8.6 % (4.5-5.6) H Recent Pertinent Medications Outpatient Anti-diabetic Regimen: * Novolog SS, Levemir 14 units AM, 8 units PM * A1c = 8.6 % from 10/12/16 The patient is currently receiving: * Basal insulin: Levemir 14 units every AM, 0 or 5 units qPM * Correctional Insulin: Novolog Correction per scale ACHS Goal Range: Low 110 mg/dL - High 140 mg/dL Correction Factor: 25 mg/dL/unit * Prandial insulin: Per carb ratio of 1 unit per 7 grams CHO consumed Risk Factors for Insulin Resistance: * Steroids: prednisone 40 mg qAM * Infection: on Zithromax and cefdinir for pneumonia * Diet: type 1 diabetes - ave of 50 gm CHO with each meal Assessment & Plan ASSESSMENT: 10/15/16 * Pt with Prednisone induced hyperglycemia through the daytime hours then the effect wears off overnight. * Levemir being overdosed at bedtime to cover elevated daytime BSGs then subsequently leading to lows or near lows in the AM. FBG this morning was 70 mg /dl. * Will decrease Levemir dose ~20-40% (depending whether bedtime dose is administered or not). * Will start home dose of Levemir in the AM then per BSG scale at bedtime. * Novolog parameters were tightened yesterday, continue same today. 10/16/16 * Patient is currently receiving an average of 50 units of insulin per day * ~20 units of basal insulin * ~30 units of prandial/correctional insulin * BSGs ranging 69-338 over the past 24hrs * Risk factors for insulin resistance are constant over the past 24hrs * Steroid dosing unchanged * Levemir dose increased already today from yesterday; therefore, will not make changes to insulin regimen at this time * Will plan to follow up tomorrow after 24 hours of higher basal dose * Hesitant to be overly aggressive with hypoglycemia yesterday 10/17/16 * Patient is currently receiving 67 units of insulin per day * 19 units of basal insulin * BSGs ranging 247-299 over the past 24hrs * Risk factors for insulin resistance are constant over the past 24hrs * After his high BSG yesterday AM, I expected BSGs to improve with additional Levemir on board * They have improved somewhat, but only minimally * BSGs continue to be very labile, similar to previous admissions * Will base basal needs off of est 25 units/day. 32 units/day (on prednisone 40 mg) caused a low and 19 units/day (on same dose of prednisone) did not control BSGs enough PLAN FOR INPATIENT GLYCEMIC CONTROL: * Increase Levemir to 20 units SQ qAM, 5 units qPM * Add overnight accucheck to provide additional coverage if necessary * Tighten correction factor to 20 mg/dl/unit * Tighten carb ratio to 1 unit per 5 grams CHO consumed * Continue goal range of Low 110 mg/dL - High 140 mg/dL * Please note that the plan above was derived based on current level of insulin resistance and hospital stress. These recommendations are appropriate for inpatient admission only. Plan of care upon discharge will need to be reassessed to avoid potential outpatient hypo/hyperglycemia. Thank you.
--- NOTE | 2016-10-17 16:17 | Progress Note ---
Medicine Progress Note Date & Time of Visit: Oct 17, 2016 at 16:05. Subjective seeen resting in bedside chair comfortable, in good spirits states he feels better overall off oxygen, ambulated in the halls with no problems less cough, no dyspnea no chest pain, dyspnea, palpitations states he is ready and would like to be discharged today no other symptoms Objective Last 8 Hrs Date Time Temp Pulse Resp B/P (MAP) Pulse Ox O2 Delivery O2 Flow Rate FiO2 10/17/16 15:35 36.4 67 18 164/68 (100) 94 Room Air 10/17/16 14:30 50 16 94 Room Air 10/17/16 08:30 Nasal Cannula 2.0 10/17/16 08:30 67 Physical Exam: General- oriented x 3, not in distress, speaks in sentences with no effort Eyes- anicteric Neck- no JVD Lungs- clear breath sounds bilaterally Heart- normal rate, irregularly irregular rhythm; no murmurs Abdomen- normal bowel sounds, soft, nontender Extremities- no pretibial edema, no calf tenderness Neuro- alert, oriented x 3; no gross focal deficits Skin- warm & dry Laboratory Results: Last 24 Hours Test 10/16/16 16:44 10/16/16 20:21 10/17/16 06:36 10/17/16 07:47 Bedside Glucose 247 mg/dl 299 mg/dl 299 mg/dl Prothrombin Time 32.1 SECONDS Prothromb Time International Ratio 2.9 Sodium Level 138 mmol/L Potassium Level 5.1 mmol/L Chloride Level 105 mmol/L Carbon Dioxide Level 25 mmol/L Anion Gap 8.0 mmol/L Blood Urea Nitrogen 58 mg/dl Creatinine 2.00 mg/dl Est Creatinine Clear Calc Drug Dose 33.4 ml/min Estimated GFR () 36.0 Estimated GFR (Non- 31.0 BUN/Creatinine Ratio 29.2 Random Glucose 291 mg/dl Calcium Level 8.7 mg/dl Test 10/17/16 11:46 10/17/16 14:59 Bedside Glucose 321 mg/dl 102 mg/dl Assessment & Plan 76 year old male with history of COPD, A fib, Asthma, DM, HTN, presenting with shortness of breath. COPD exacerbation secondary to RLL pneumonia -- CXR: : Emphysematous and chronic fibrotic/pleural thickening changes. Minimal superimposed parenchymal infiltrate right base. -- gradually improved was able to be weaned off supplemental oxygen by nasal cannula two step exercise test done: patient does not need oxygen supplementation with ambulation or at rest -- transitioned from IV Solumedrol to PO Prednisone given Nebs q6h completed 5 days of Cefnidir and Azithomycin -- evaluated by Pulmonary Dr. Ramsey discharge plan: Cefnidir 300mg BID x 2 more days to complete 7 days therapy Nebs q6h until follow up with PCP Prednisone taper starting at 30mg x 2 days, then 20mg x 2 days, etc. continue Dulera, Spiriva ff up with Front Worker Dr. Patrick in [address], [address] chest to ff up resolution of infiltrates Atrial fibrillation w RVR -- HR controlled evaluated by Knitting Inspector JOE Perez/ Dr. Hall -- started on Metoprolol 12.5mg BID HR controlled so far -- coumadin also re-started INR 2.9 on discharge day advised to take coumadin 2.5mg po daily starting 10/18/16, until called by coumadin clinic signed out case to Ms. 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 Patrick in [address] chest to be done by Pulm TANK on CKD III -- resolved Chronic diastolic heart failure -- euvolemic DMII -- on ISS, [facility] Pharm on board -- (+) hyperglycemia while on Prednisone patient advised to increase Levemir in AM 20 units while on Prednisone 30mg 17 units while on Prednisone 20mg then resume usual 14 units when taking Prednisone 10mg and below continue Novolog as per Sliding Scale HTN -- Metoprolol started monitor as outpatient BPH - stable GERD Hyperlipidemia -- stable DVT proph: coumadin Full Code Dispo d/c home today patient declined home health services ff up with PCP in 3-5 days ff up with [facility] this week (clinic to call patient) ff up with Pulmonary Dr. Patrick in 2 weeks, repeat CT chest on follow up ff up with Knitting Inspector JOE Perez/Dr. Galvan in 2 weeks Gurdeep Rucker MD Consultants: Cards, Pulm, Nephro Current Inpatient Medications: Current Inpatient Medications Medications (Trade) Dose Ordered Sig/Bertha Route Start Time Stop Time Status Last Admin Dose Admin Acetaminophen (Tylenol Tab) 650 mg Q4H PRN PO 10/11/16 20:30 11/10/16 20:29 Al Hydrox/Mg Hydrox/Simethicone (Maalox Max Susp) 15 ml Q4H PRN PO 10/11/16 20:30 11/10/16 20:29 Magnesium Hydroxide (Milk Of Magnesia Susp) 30 ml Q12H PRN PO 10/11/16 20:30 11/10/16 20:29 Ondansetron HCl (Zofran Inj) 4 mg Q6H PRN IV 10/11/16 20:30 11/10/16 20:29 Nitroglycerin (Nitrostat Tab) 0.4 mg UD PRN SL 10/11/16 20:30 11/10/16 20:29 Fluticasone Propionate (Flonase Nasal [place]) 2 sprays DAILY ALDEN 10/12/16 09:00 11/11/16 08:59 10/17/16 08:29 2 SPRAYS Multivitamins (Multivitamin Tab) 1 tab QAM PO 10/12/16 09:00 11/11/16 08:59 10/17/16 08:27 1 TAB Ranitidine HCl (zANTac TAB) 150 mg BID PO 10/12/16 09:00 11/11/16 08:59 10/17/16 08:27 150 MG Simvastatin (Zocor Tab) 20 mg QPM PO 10/12/16 21:00 11/11/16 20:59 10/16/16 20:40 20 MG Tamsulosin HCl (Flomax Cap) 0.4 mg HS PO 10/12/16 21:00 11/11/16 20:59 10/16/16 20:39 0.4 MG Zolpidem Tartrate (Ambien Tab) 5 mg HS PRN PO 10/11/16 20:30 11/10/16 20:29 Insulin Aspart (novoLOG ASPART) SLIDING SCALE G... ACHS SC 10/11/16 21:00 11/10/16 20:59 10/17/16 12:58 16 UNITS Metoprolol Tartrate (Lopressor Iv) 2.5 mg Q4 PRN IV 10/11/16 20:30 11/10/16 20:29 Miscellaneous Information (Consult Glycemic Management Pharmacy) 1 ea UD PRN N/A 10/11/16 20:41 11/10/16 20:40 Tramadol HCl (Ultram Tab) 50 mg TID PRN PO 10/11/16 20:45 11/10/16 20:44 Losartan Potassium (coZAAR TAB) 50 mg DAILY PO 10/12/16 09:00 11/11/16 08:59 Future Hold 10/14/16 08:18 50 MG Glucose (Glucose 40% Gel) 15-30 GRAMS 15 GRAMS... UD PRN PO 10/11/16 21:00 11/10/16 20:59 Glucose (Glucose Chew Tab) 4-8 Tablets 4 Tabl... UD PRN PO 10/11/16 21:00 11/10/16 20:59 Dextrose (Dextrose 50% 50ML Syringe) 25-50ML OF 50% DW IV FOR... UD PRN IV 10/11/16 21:00 11/10/16 20:59 Glucagon (Glucagon Inj) 1 mg UD PRN SQ 10/11/16 21:00 11/10/16 20:59 Cholecalciferol (Vitamin D Tab) 1,000 inter.unit DAILY PO 10/13/16 09:00 11/11/16 08:59 10/17/16 08:28 1,000 INTER.UNIT Prednisone (PredniSONE TAB) 40 mg DAILY PO 10/13/16 09:00 11/12/16 08:59 10/17/16 08:27 40 MG Azithromycin (Zithromax Tab) 500 mg QPM PO 10/13/16 21:00 10/20/16 20:59 10/16/16 20:40 500 MG Cefdinir (Omnicef Cap) 300 mg BID PO 10/13/16 21:00 10/20/16 20:59 10/17/16 08:28 300 MG Mometasone Furoate/ Formoterol Fumar (Dulera) 2 ea BID INH 10/14/16 20:00 11/13/16 19:59 10/17/16 08:30 2 EA Metoprolol Tartrate (Lopressor Tab) 12.5 mg BID PO 10/14/16 20:00 11/13/16 19:59 10/17/16 08:26 12.5 MG Ipratropium [place] (Atrovent 0.02% 0.5MG/2.5ML Neb) 0.5 mg Q6R INH 10/15/16 09:00 11/11/16 02:59 10/17/16 14:29 0.5 MG Levalbuterol (Xopenex 1.25MG/ 0.5ML Neb) 1.25 mg Q6R INH 10/15/16 09:00 11/11/16 02:59 10/17/16 14:29 1.25 MG Guaifenesin (Mucinex Contr Rel Tab) 1,200 mg Q12 PO 10/15/16 09:00 11/14/16 08:59 10/17/16 08:27 1,200 MG Insulin Detemir (Levemir Flexpen/ FlexTouch) 20 unit QAM SC 10/17/16 08:00 11/16/16 07:59 10/17/16 08:33 20 UNIT Insulin Aspart (novoLOG ASPART) SLIDING SCALE G... 0200 ONCE SC 10/18/16 02:00 10/18/16 02:01 Insulin Detemir (Levemir Flexpen/ FlexTouch) 5 unit HS SC 10/17/16 21:00 11/16/16 20:59
[2016-10-17] MEDS ORDERED: ACET-1256 PO (16:31)
[2016-10-17] MEDS ORDERED: GFNSR600 PO (16:31)
[2016-10-17] MEDS ORDERED: XPNINS1255 INH (16:31)
[2016-10-17] MEDS ORDERED: LPR25 PO (16:31)
[2016-10-17] MEDS ORDERED: PRED10TA PO (16:31)
[2016-10-17] MEDS ORDERED: CEFD300C3 PO (16:31)
--- NOTE | 2016-10-17 16:46 | Discharge Instructions ---
Discharge Instructions Date of Service Oct 17, 2016. Admission Reason for Admission: Copd Exacerbation, Rapid Atrial Fibrillation Discharge Discharge Diagnosis / Problem: COPD EXACERBATION, PNEUMONIA, ATRIAL FIBRILLATION Discharge Goals Goal(s): Diagnostic testing, Therapeutic intervention Activity Recommendations Activity Limitations: as noted below (INCREASE ACTIVITY GRADUALLY TOLERATED) Driving or Machine Use: NO DRIVING UNTIL RE-EVALUATED BY PRIMARY CARE PHYSICIAN . Instructions / Follow-Up Instructions / Follow-Up PLEASE REVIEW YOUR MEDICATION LIST AND FOLLOW INSTRUCTIONS CAREFULLY. INCREASE MORNING DOSE OF INSULIN LEVEMIR WHILE TAKING PREDNISONE FOLLOWS: WHILE TAKING PREDNISONE 30MG, USE 20 UNITS OF INSULIN LEVEMIR IN THE MORNING , THEN WHILE TAKING PREDNISONE 20MG, USE 17 UNITS OF INSULIN LEVEMIR IN THE MORNING , THEN RESUME USUAL 14 UNITS OF INSULIN LEVEMIR IN THE MORNING CONTINUE USUAL INSULIN LEVEMIR 8 UNITS AT NIGHT. CONTINUE USUAL INSULIN NOVOLOG USING SLIDING SCALE THREE TIMES A DAY WITH MEALS. DO NOT USE INSULIN IF YOUR BLOOD SUGAR IS 120 OR BELOW. IF IT IS PERSISTENTLY ABOVE 200, PLEASE CALL YOUR PRIMARY CARE PHYSICIAN. CALL PRIMARY CARE PHYSICIAN OR RETURN TO ER IMMEDIATELY IF WITH RECURRENCE OF SYMPTOMS, COUGH, FEVER/CHILLS. CALL 911 IF YOU HAVE CHEST PAIN, PALPITATIONS, DIZZINESS, WEAKNESS, BLEEDING. FOLLOW UP WITH DR. PATEL IN 3-5 DAYS (CLINIC WILL CALL YOU FOR APPOINTMENT DATE AND INSTRUCTIONS). FOLLOW UP WITH [facility] FOR COUMADIN DOSE AND BLOOD WORK (CLINIC WILL CALL YOU REGARDING APPOINTMENT DATE AND INSTRUCTIONS). FOLLOW UP WITH DR. MORALES IN 2 WEEKS. FOLLOW UP WITH CHICKEN SEXER SCHEDULED. Current Hospital Diet Patient's current hospital diet: Diabetes Type 1 Diet Discharge Diet Recommended Diet: AHA Diet (Heart Healthy), Diabetes Type 1 Diet Procedures Procedures Performed: Echocardiogram Pending Studies Studies pending at discharge: yes List of pending studies: repeat blood work by Primary Care Physician, repeat CT chest by Lung Specialist Laboratory Results Hemoglobin A1c Test 10/12/16 04:45 Range/Units Estimated Average Glucose 200 mg/dl Hemoglobin A1c 8.6 H 4.5-5.6 % Medical Emergencies . Who to Call and When: Medical Emergencies: If at any time you feel your situation is an emergency, please call 911 immediately. . Non-Emergent Contact Non-Emergency issues call your: Primary Care Provider, Labor Gang Supervisor Call Non-Emergent contact if: you have a fever, you have any medication questions . Past History Medical & Surgical History: (1) Pleural plaque (2) Rapid atrial fibrillation (3) Dyspnea (4) COPD exacerbation (5) Atrial fibrillation with RVR (6) Hypertension (7) BPH (benign prostatic hypertrophy) (8) History of basal cell carcinoma (9) CKD (chronic kidney disease) stage 3, GFR 30-59 ml/min (10) Diabetes type I (11) Paroxysmal atrial fibrillation (12) Asbestos exposure (13) Dyslipidemia (14) COPD (chronic obstructive pulmonary disease) (15) H/O nasal polypectomy (16) History of surgery of head (17) History of inguinal hernia repair . "Provider Documentation" section prepared by Gurdeep Rucker. . VTE Core Measure Inpt VTE Proph given/why not?: Warfarin (Coumadin)
--- NOTE | 2016-10-17 16:52 | Discharge Summary ---
Discharge Summary Date of Service Oct 17, 2016. Discharge Summary Admission Date: Oct 11, 2016 at 20:30 Discharge Date: Oct 17, 2016 Discharge Disposition: Home Principal Diagnosis: COPD exacerbation secondary to RLL pneumonia Secondary Diagnoses/Problems: Please refer to hospital course below. Procedures: CHEST 2 VIEWS ROUTINE CLINICAL HISTORY: cough, sob dyspnea COMPARISON STUDY: 09/05/2016 FINDINGS: Emphysematous and chronic fibrotic change. Chronic apical pleural thickening bilaterally. Chronic bibasilar parenchymal infiltrative changes. This is perhaps slightly progressive on the right. IMPRESSION: Emphysematous and chronic fibrotic/pleural thickening changes. Minimal superimposed parenchymal infiltrate right base. ECHO: * -- Conclusions -- * The rhythm is atrial fibrillation with intermittent rapid ventricular response. * Ejection Fraction = 50-55%. * The left atrium is moderately dilated. * There is mild mitral regurgitation. * Aortic valve sclerosis mild, without significant aortic valvular stenosis. Consultations: Maryuri PA, Pulm, Nephro Pending Studies/Follow-Up: PLEASE MONITOR HEART RATE (TAKEN OFF METOPROLOL DUE TO BRADYCARDIA); REPEAT PRP TO ASSESS RENAL FUNCTION (RE: LASIX, LOSARTAN RESUMED); PLEASE REFER TO HOSPITAL COURSE BELOW FOR FURTHER DETAILS. Medication Reconciliation New Medications: Prednisone Tab (Prednisone) 10 Mg Tab 10 MG PO UD, #13 TAB take 3 tabs po daily x 2 days, then take 2 tabs po daily x 2 days, then take 1 tab po daily x 2 days, then take 1/2 tab po daily x 2 days, then STOP Cefdinir (Cefdinir) 300 Mg Cap 300 MG PO BID for 2 Days, #4 CAP 0 Refills Guaifenesin Ext Rel (Mucinex Ext Rel) 600 Mg Tabcr 1200 MG PO Q12 for 7 Days, #14 TABS 2 Refills Levalbuterol (Levalbuterol) 1.25 Mg/0.5 Ml Nebu 1.25 MG INH Q6R for 10 Days, #40 UNIT 2 Refills Changed Medications: Acetaminophen (Tylenol) 500 Mg Tab 1000 MG PO DIRECTED PRN for Fever for 10 Days (Medication details modified) do not take more than 3,000mg /day Continued Medications: Cholecalciferol (Vitamin D3) 2,000 Unit Cap 1 CAP PO DAILY, CAP Docusate Sodium (Docusate Sodium) 100 Mg Cap 100 MG PO BID for 30 Days, #60 CAP 0 Refills Fluticasone Propionate (Fluticasone Propionate) 120 Sprays/6000 Mcg Inha 2 SPRAYS ALDEN DAILY, #16 Furosemide (Lasix) 20 Mg Tab 20 MG PO Q2D AM Bqeehjonhgl-Brrvjrnhnki-Prr C- (Glucosamine Chondroitin) 1 Tab Tab 1 TAB PO QAM Insulin Aspart (Novolog Flexpen) 100 Units/Ml Inj 1 DOSE SQ ACHS SLIDING SCALE. APPROX 10UNITS BID Insulin Detemir (Levemir) 100 Units/Ml Inj SQ UD 14 units in am and 8 units in pm Ipratropium [place] (Atrovent 0.02% Soln) 2.5 Ml Nebu 1 DOSE NEB QID, #300 Ipratropium-Albuterol (Duoneb) 3 Ml Nebu 1 TREATMENT INH Q4H PRN for PRN, INHA Losartan Potassium (Cozaar) 50 Mg Tab 50 MG PO DAILY, #30 TAB Mometasone Furoate-Formoterol (Dulera 200/5 Mcg) 1 Aer Aer 2 PUFFS INH BID for 30 Days, #13 GM 3 Refills Multivitamin (Multivitamin) Tab 1 TAB PO QAM, TAB Ranitidine HCl (Ranitidine HCl) 150 Mg Tab 1 TAB PO BID, #180 Simvastatin (Zocor) 20 Mg Tab 20 MG PO QPM, 0 Refills take with supper Tamsulosin Hcl (Flomax) 0.4 Mg Cap 0.4 MG PO HS Tiotropium [place] Monohydrate (Spiriva Respimat) 2.5 Mcg/Act Spr 2 PUFFS INH DAILY, #1 Tramadol HCl (Tramadol HCl) 50 Mg Tab 1 TAB PO TID PRN for Pain, #30 Zolpidem Tartrate (Ambien) 5 Mg Tab 5-10 MG PO HS PRN for INSOMNIA, TAB Discontinued Medications: Aspirin (Aspirin 81) 81 Mg Tab 81 MG PO QAM Levofloxacin (Levaquin) 500 Mg Tab 1 TAB PO DAILY, #14 Prednisone (Prednisone) 10 Mg Tab 0 PO UD for 4 Days, #1 PKT STERAPRED 10MG 12 DAY Admission Information HPI (per Admitting provider): DATE OF ADMISSION: 10/11/2016 CHIEF COMPLAINT: Shortness of breath. HISTORY OF PRESENT ILLNESS: This is a 76-year-old male with past medical history of COPD, chronic kidney disease stage III, type 1 diabetes, asthma, history of asbestos exposure, history of hypertension, history of BPH and obstructive uropathy, history of atrial fibrillation, no longer on Coumadin, nocturnal hypoxia use oxygen at the nighttime, chronic stasis dermatitis, hyperlipidemia, who presents with shortness of breath. The patient says since last 3 days ago, he felt short of breath and is coughing up whitish phlegm and started his rescue kit with prednisone and Levaquin, but not much improvement, so he went to see his family doctor and was having tachycardia and he was advised to come to the ER. In the ER, the patient was able to talk in sentences. The patient uses oxygen 2 liters at night time, but last 3 days using it all through the day. The patient is having AFib/ AFlutter in the rate of 130s, seemed comfortable. He has some lower extremity edema. The patient says he was on Lasix daily before, but lately his family doctor changed it to every other day since then he is developing some lower extremity edema. He says even though he is short of breath, he was ambulating fine.He also has history of exposure to asbestos. He was in the hospital in July 2016 and underwent an uncomplicated robot-assisted thoracoscopy surgery with a partial pleurectomy and lung biopsy and pathology results of those here showed possible interstitial lung disease and those pathology was sent to [facility], where the [facility] report says the patient has organizing aspiration pneumonia with central local granulomatous and foreign material, superimposing on severe respiratory bronchiolitis with emphysematous change and also says 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 Celina castaneda. Physical Exam (per Admitting): GENERAL: The patient is of moderate build, not in distress. VITAL SIGNS: Temperature 36.9, pulse in 120s-130s, respiratory rate 18, blood pressure 152/112, oxygen 95% on 3 liters. HEENT: No pallor, no icterus. Pupils are equal, round, and reactive to light. NECK: No JVD, no neck masses, no carotid bruits. CARDIOVASCULAR: S1, S2 heard, tachycardia, irregular rhythm . No murmur. RESPIRATORY SYSTEM: Normal AP diameter. No accessory muscle use. Occasional wheezing, no crackles. ABDOMEN: Soft, bowel sounds present. Nontender. No distention. CENTRAL NERVOUS SYSTEM: Cranial nerves II-XII are grossly intact. Nonfocal. EXTREMITIES: Bilateral lower extremity pedal edema present. No erythema seen. Hospital Course 76 year old male with history of COPD, A fib, Asthma, DM, HTN, presenting with shortness of breath. COPD exacerbation secondary to RLL pneumonia -- CXR: : Emphysematous and chronic fibrotic/pleural thickening changes. Minimal superimposed parenchymal infiltrate right base. -- transitioned from IV Solumedrol to PO Prednisone given Nebs q6h completed 5 days of Cefnidir and Azithomycin -- gradually improved was able to be weaned off supplemental oxygen by nasal cannula two step exercise test done: patient does not need oxygen supplementation with ambulation or at rest -- evaluated by Pulmonary Dr. Ramsey discharge plan: Cefnidir 300mg BID x 2 more days to complete 7 days therapy Nebs q6h until follow up with PCP Prednisone taper starting at 30mg x 2 days, then 20mg x 2 days, etc. Mucinex BID continue Dulera, Spiriva ff up with Television Actor Dr. Morales in [address] chest to ff up resolution of infiltrates Atrial fibrillation with RVR -- evaluated by Cardiac Cath Rn JOE Perez/ Dr. Hall -- patient received Metoprolol PO, spontaneously converted to sinus bradycardia hence Metoprolol discontinued -- Metoprolol dose then lowered but HR still remained in the 50s discontinue Metoprolol for now monitor HR and rhythm -- coumadin also re-started with heparin bridge INR 2.9 on discharge day advised to take coumadin 2.5mg po daily starting 10/18/16, until called by coumadin clinic signed out case to Ms. 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 Morales in [address] chest to be done by Pulm Acute Renal Failure on CKD III -- Processor Helper Dr. Mcconnell consulted resolved repeat PRP on ff up with PCP Chronic diastolic heart failure -- euvolemic resume lasix 20mg q2d DMII -- on ISS, Levemir while admitted Pharm on board -- (+) hyperglycemia while on Prednisone patient advised to increase Levemir in AM 20 units while on Prednisone 30mg 17 units while on Prednisone 20mg then resume usual 14 units when taking Prednisone 10mg and below continue Levemir 8 units in PM continue Novolog as per Sliding Scale HTN -- Losartan, Lasix resumed repeat PRP on follow up with PCP BPH - stable GERD Hyperlipidemia -- stable Dispo d/c home patient declined home health services ff up with PCP in 3-5 days ff up with [facility] this week (clinic to call patient) ff up with Pulmonary Dr. Morales in 2 weeks, repeat CT chest on follow up ff up with Cardiac Cath Rn JOE Perez/Dr. Galvan in 2 weeks Gurdeep Rucker MD Total time spent on discharge = 50 minutes This includes examination of the patient, discharge planning, medication reconciliation, and communication with other providers. Discharge Instructions Discharge Instructions Date of Service Oct 17, 2016. Admission Reason for Admission: Copd Exacerbation, Rapid Atrial Fibrillation Discharge Discharge Diagnosis / Problem: COPD EXACERBATION, PNEUMONIA, ATRIAL FIBRILLATION Discharge Goals Goal(s): Diagnostic testing, Therapeutic intervention Activity Recommendations Activity Limitations: as noted below (INCREASE ACTIVITY GRADUALLY TOLERATED) Driving or Machine Use: NO DRIVING UNTIL RE-EVALUATED BY PRIMARY CARE PHYSICIAN . Instructions / Follow-Up Instructions / Follow-Up PLEASE REVIEW YOUR MEDICATION LIST AND FOLLOW INSTRUCTIONS CAREFULLY. INCREASE MORNING DOSE OF INSULIN LEVEMIR WHILE TAKING PREDNISONE FOLLOWS: WHILE TAKING PREDNISONE 30MG, USE 20 UNITS OF INSULIN LEVEMIR IN THE MORNING , THEN WHILE TAKING PREDNISONE 20MG, USE 17 UNITS OF INSULIN LEVEMIR IN THE MORNING , THEN RESUME USUAL 14 UNITS OF INSULIN LEVEMIR IN THE MORNING CONTINUE USUAL INSULIN LEVEMIR 8 UNITS AT NIGHT. CONTINUE USUAL INSULIN NOVOLOG USING SLIDING SCALE THREE TIMES A DAY WITH MEALS. DO NOT USE INSULIN IF YOUR BLOOD SUGAR IS 120 OR BELOW. IF IT IS PERSISTENTLY ABOVE 200, PLEASE CALL YOUR PRIMARY CARE PHYSICIAN. CALL PRIMARY CARE PHYSICIAN OR RETURN TO ER IMMEDIATELY IF WITH RECURRENCE OF SYMPTOMS, COUGH, FEVER/CHILLS. CALL 911 IF YOU HAVE CHEST PAIN, PALPITATIONS, DIZZINESS, WEAKNESS, BLEEDING. FOLLOW UP WITH DR. PATEL IN 3-5 DAYS (CLINIC WILL CALL YOU FOR APPOINTMENT DATE AND INSTRUCTIONS). FOLLOW UP WITH [facility] FOR COUMADIN DOSE AND BLOOD WORK (CLINIC WILL CALL YOU REGARDING APPOINTMENT DATE AND INSTRUCTIONS). FOLLOW UP WITH DR. MORALES IN 2 WEEKS. FOLLOW UP WITH LAPPING MACHINE OPERATOR SCHEDULED. Current Hospital Diet Patient's current hospital diet: Diabetes Type 1 Diet Discharge Diet Recommended Diet: AHA Diet (Heart Healthy), Diabetes Type 1 Diet Procedures Procedures Performed: Echocardiogram Pending Studies Studies pending at discharge: yes List of pending studies: repeat blood work by Primary Care Physician, repeat CT chest by Lung Specialist Laboratory Results Hemoglobin A1c Test 10/12/16 04:45 Range/Units Estimated Average Glucose 200 mg/dl Hemoglobin A1c 8.6 H 4.5-5.6 % Medical Emergencies . Who to Call and When: Medical Emergencies: If at any time you feel your situation is an emergency, please call 911 immediately. . Non-Emergent Contact Non-Emergency issues call your: Primary Care Provider, Television Actor Call Non-Emergent contact if: you have a fever, you have any medication questions . Past History Medical & Surgical History: (1) Pleural plaque (2) Rapid atrial fibrillation (3) Dyspnea (4) COPD exacerbation (5) Atrial fibrillation with RVR (6) Hypertension (7) BPH (benign prostatic hypertrophy) (8) History of basal cell carcinoma (9) CKD (chronic kidney disease) stage 3, GFR 30-59 ml/min (10) Diabetes type I (11) Paroxysmal atrial fibrillation (12) Asbestos exposure (13) Dyslipidemia (14) COPD (chronic obstructive pulmonary disease) (15) H/O nasal polypectomy (16) History of surgery of head (17) History of inguinal hernia repair . "Provider Documentation" section prepared by Gurdeep Rucker. . VTE Core Measure Inpt VTE Proph given/why not?: Warfarin (Coumadin)
[2016-10-18] MEDS ORDERED: INSULIN ASPART 100 UNITS/ML 3 ML PEN SC ONE (02:00)
[2016-11-13] MEDS ORDERED: PRT/20 PO (10:35)
[2016-11-16] MEDS ORDERED: LPR25 PO (09:19)
[2016-11-16] MEDS ORDERED: LNX125 PO (09:19)
[2016-11-16] MEDS ORDERED: ASPEC81 PO (09:19)
[2016-11-16] MEDS ORDERED: LEVO1TAB35 PO (09:19)
[2016-11-16] MEDS ORDERED: BENZ100C7 PO (09:19)
[2016-12-13] MEDS ORDERED: METO50TA16 PO (13:04)
== END 2016-10-17 17:23 | disposition home or self-care (01) | DRG 190 ==
LOC: C.EDB 15:31 → C.2T 20:30 → ENRESERV 20:57 → C.4E 10-13 18:38
PROVIDERS: ADMIT Hospitalist; ATTEND Internal Medicine
DX: J44.1 Chronic obstructive pulmonary disease with (acute) exacerbation (principal); J18.9 Pneumonia, unspecified organism; I50.33 Acute on chronic diastolic (congestive) heart failure; N17.9 Acute kidney failure, unspecified; I13.0 Hypertensive heart and chronic kidney disease with heart failure and stage 1 through stage 4 chronic kidney disease, or unspecified chronic kidney disease; I48.91 Unspecified atrial fibrillation; N18.3 Chronic kidney disease, stage 3 (moderate); J44.0 Chronic obstructive pulmonary disease with (acute) lower respiratory infection; N40.0 Benign prostatic hyperplasia without lower urinary tract symptoms; E11.22 Type 2 diabetes mellitus with diabetic chronic kidney disease; K21.9 Gastro-esophageal reflux disease without esophagitis; E78.5 Hyperlipidemia, unspecified; Z79.4 Long term (current) use of insulin; Z79.52 Long term (current) use of systemic steroids; Z79.82 Long term (current) use of aspirin; Z87.891 Personal history of nicotine dependence

== ENCOUNTER 2016-11-13 10:50 | Inpatient (IN) | payer BC, OTHER ==
[~2016-11-13] VITALS: Ht 182.9 cm; Wt 89.7 kg
[~2016-11-13 10:50] MED LIST changes: -ASPEC81 PO; -BENZ100C7 PO; -CZR50 PO; -FINA5TAB4 PO; -IPRA1AER2 PO; -LEVO1TAB35 PO; -LNX125 PO; -LPR25 PO; -METO50TA16 PO; -NITR0.4S UT; -PRED-301 PO; -SPRIN/30 INH; -WARF2.5T8 PO
[2016-11-13] MEDS ORDERED: METOPROLOL TARTRATE 1 MG/ML VIAL IV STA ×3 (11:09→12:34)
[2016-11-13 11:22] LABS: BASO % 0.1 %; BASO ABS # 0.01 K/uL (0-0.2); COMPLETE YES; EOS % 0.2 %; HEMATOCRIT 36.4 % (42-52); IG% 0.4 %; LYMPH % 14.3 %; LYMPH ABS # 1.22 K/uL (1.2-3.4); MEAN CELL VOLUME 88.3 fL (80-100); MEAN CORPUSCULAR HEMOGLOBIN 28.4 pg (25-34); MEAN CORPUSCULAR HGB CONC 32.1 g/dl (32-36); MEAN PLATELET VOLUME 9.6 fL (7.4-10.4); MONO % 8.8 %; NEUT % 76.2 %; PLATELET COUNT 241 K/uL (130-400); RED BLOOD COUNT 4.12 M/uL (4.7-6.1); WHITE BLOOD COUNT 8.55 K/uL (4.8-10.8)
[2016-11-13] MEDS ORDERED: METOPROLOL TARTRATE 1 MG/ML VIAL ONE ×2 (11:30→12:13)
[2016-11-13 11:33] LABS: INR 1.8 (0.9-1.1); PARTIAL THROMBOPLASTIN RATIO 1.4; PROTHROMBIN TIME (PATIENT) 20.2 SECONDS (9.0-12.0)
[2016-11-13] MEDS ORDERED: IPRA1AER2 PO (11:39)
[2016-11-13] MEDS ORDERED: PRED-301 PO (11:39)
[2016-11-13] MEDS ORDERED: SPRIN/30 INH (11:39)
[2016-11-13] MEDS ORDERED: WARF2.5T8 PO (11:39)
[2016-11-13] MEDS ORDERED: NITR0.4S UT (11:39)
[2016-11-13] MEDS ORDERED: CZR50 PO (11:39)
--- NOTE | 2016-11-13 11:46 | DIAGNOSTIC IMAGING REPORT ---
CHEST ONE VIEW PORTABLE HISTORY:76 yearsMalerapid afib, swelling legs COMPARISON: 10/15/2016 TECHNIQUE: Portable upright AP view of the chest FINDINGS: Cardiac silhouette is again enlarged. There is mild background reticulation with enlargement of the pulmonary vasculature. Patchy bibasilar opacities are redemonstrated, mildly improved from comparison study. There is mild blunting of bilateral costophrenic angles. No pneumothorax or new large area of focal airspace consolidation is identified. There is atherosclerosis of the aorta. The bones appear grossly intact. IMPRESSION: 1. Cardiomegaly with mild pulmonary edema pattern. 2. Small pleural effusions. 3. Patchy bibasilar opacities suggest atelectasis/scarring with superimposed pneumonia thought to be less likely. The above report was generated using voice recognition software. It may contain grammatical, syntax or spelling errors. Electronically signed by: Jesús Magaña M.D. 11/13/2016 11:45 AM Dictated Date/Time: 11/13/2016 11:42 AM
[2016-11-13 11:47] LABS: BUN/CREATININE RATIO 21.9 (10-20); CALCIUM 8.9 mg/dl (8.5-10.1); CREATININE 1.6 mg/dl (0.60-1.40); MAGNESIUM 1.8 mg/dl (1.8-2.4); POTASSIUM 4.9 mmol/L (3.5-5.1)
--- NOTE | 2016-11-13 11:55 | EMERGENCY ROOM VISIT NOTE ---
History Report prepared by Tamiko: Marilyn Mcclain Under the Supervision of: Dr. Sylvia Elizabeth M.D. First contact with patient: 11:03 Chief Complaint: TACHYCARDIA Stated Complaint: AFIB Nursing Triage Summary: PT PRESENTS TO ED FROM SAME DAY SURGERY WITH INCREASED HEART RATE. EKG DONE PRIOR TO ED ARRIVAL AND PT IN A-FIB. PT ARRIVED TO ED. PT REMAINS IN AFIB. PT STATES HX OF AFIB AND TAKES COUMADIN. PT STATES HAS BEEN IN AND OUT OF IT FOR THE PAST WEEK. PT STATES HAS NOT SEEN PCP FOR IT. STATES HE NORMALLY GOES FOR A WALK AND IT GOES AWAY. PT DENIES ANY CP OR SOB AT PRESENT. PT WAS TO HAVE A BRONCH COMPLETED TODAY History of Present Illness The patient is a 76 year old male who presents to the Emergency Room with complaints of persistent tachycardia that started this morning when the patient woke up. The patient states that he woke up this morning and measured his oxygen saturation. When he measured his oxygen saturation he noticed that his heart rate was elevated. He states that he went for a 50 yard walk with his and the tachycardia resolved. The patient then got ready for his bronchoscopy and the tachycardia returned. He states that he feels well. He denies any chest pain. The patient's adds that the patient has been experiencing bilateral lower extremity edema. The patient came to the hospital for his bronchoscopy and he was still in rapid atrial fibrillation so they did not perform the procedure. Dr. 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 Carrillo. Dr. Carrillo has been following with the patient for atrial fibrillation for the past [address] Carrillo recommended sending the patient to the ED for further evaluation of his symptoms. The patient is not on any medication to control his heart rate. He states that he tried medication but it made him feel fatigued so he stopped taking it. The patient states that the only medications that he took this morning were Losartan for his blood pressure and Coumadin because that is all he was told to take prior to the procedure. The patient states that his blood sugar was high this morning but he did not take any insulin and he has not eaten since last night. The patient wears nasal cannula oxygen at night but has difficulty with compliance. Source of History: patient Onset: this morning Position: chest Quality: other (tachycardia) Timing: other (persistent) Modifying Factors (Relieving): exertion Associated Symptoms: No chest pain Note: bilateral lower extremity edema Review of Systems See HPI for pertinent positives & negatives. A total of 10 systems reviewed and were otherwise negative. Past Medical & Surgical Medical Problems: (1) Asbestos exposure (2) BPH (benign prostatic hypertrophy) (3) CKD (chronic kidney disease) stage 3, GFR 30-59 ml/min (4) COPD (chronic obstructive pulmonary disease) (5) COPD exacerbation (6) Diabetes type I (7) Dyslipidemia (8) History of basal cell carcinoma (9) Hypertension (10) Paroxysmal atrial fibrillation (11) Pleural plaque (12) Rapid atrial fibrillation Surgical Problems: (1) H/O nasal polypectomy (2) History of inguinal hernia repair (3) History of surgery of head Family History Cancer MOTHER Diabetes mellitus BROTHER Gallbladder disease Heart disease Hypertension Kidney disease Kidney stones Social History Smoking Status: Former Smoker Alcohol Use: none Drug Use: none Marital Status: Housing Status: lives with significant other Occupation Status: retired Current/Historical Medications Scheduled Fluticasone Propionate (Fluticasone Propionate), 2 SPRAYS ALDEN DAILY Furosemide (Lasix), 20 MG PO DAILY Insulin Aspart (Novolog Flexpen), 1 DOSE SQ ACHS Insulin Detemir (Levemir), SQ UD Ipratropium-Albuterol (Combivent Respimat), 1 PUFF PO QID Levalbuterol (Levalbuterol), 1.25 MG INH Q6R Losartan Potassium (Losartan Potassium), 50 MG PO DAILY Nitroglycerin (Nitrostat), 0.4 MG UT PRN Prednisone (Prednisone), 7.5 MG PO DAILY Ranitidine HCl (Ranitidine HCl), 1 TAB PO BID Simvastatin (Zocor), 20 MG PO QPM Tamsulosin Hcl (Flomax), 0.4 MG PO HS Tiotropium [place] (Spiriva Handihaler), 2 PUFFS INH DAILY Warfarin Sod (Jantoven), 5 MG PO DAILY Scheduled PRN Ipratropium-Albuterol (Duoneb), 1 TREATMENT INH Q4H PRN for PRN Zolpidem Tartrate (Ambien), 5 MG PO HS PRN for INSOMNIA Allergies Coded Allergies: Diltiazem (Verified Allergy, Mild, RASH, 10/11/16) Aspirin (Verified Adverse Reaction, Mild, GI SYMPTOMS, 10/11/16) Lisinopril (Verified Adverse Reaction, Unknown, cough, 10/11/16) Propoxyphene (Verified Adverse Reaction, Unknown, STOMACH UPSET DIARRHEA, 10/11/16) Physical Exam Vital Signs Date Time Temp Pulse Resp B/P (MAP) Pulse Ox O2 Delivery O2 Flow Rate FiO2 11/13/16 14:46 110 11/13/16 14:36 36.4 18 105/70 Nasal Cannula 2.0 11/13/16 14:21 111 18 105/70 11/13/16 14:06 145 18 103/78 11/13/16 13:45 115 90/70 11/13/16 13:29 146 11/13/16 13:25 146 102/67 11/13/16 13:23 144 11/13/16 12:48 142 18 112/69 11/13/16 12:47 139 112/69 11/13/16 12:24 146 15 124/94 98 Nasal Cannula 2.0 11/13/16 12:16 146 128/94 11/13/16 12:14 147 15 128/94 97 Nasal Cannula 2.0 11/13/16 12:01 149 15 118/92 99 Nasal Cannula 11/13/16 11:35 150 18 137/102 11/13/16 11:33 153 137/102 11/13/16 11:30 36.4 11/13/16 11:04 97 Nasal Cannula 2.0 11/13/16 11:00 93 Room Air 11/13/16 10:56 150 11/13/16 10:55 150 18 139/98 93 Room Air Physical Exam Vital signs reviewed. General: Well-appearing male, in no significant distress. HEENT: No scleral icterus, PERRLA, neck supple. Atraumatic. Cardiovascular: Rapid rate and irregular rhythm, no extra sounds. Pulmonary: Crackles at the bases bilaterally, normal work of breathing. Abdomen: Soft, nontender, nondistended, positive bowel sounds. Musculoskeletal: Atraumatic, 3+ pitting lower extremity edema bilaterally. Neurologic: Patient awake alert and oriented x 3, full strength in all 4 extremities. Cranial nerves 2 through 12 grossly intact. Skin: Warm, dry, no rash Medical Decision & Procedures ER Provider Diagnostic Interpretation: Radiology results as stated below per my review and radiologist interpretation: CHEST ONE VIEW PORTABLE FINDINGS: Cardiac silhouette is again enlarged. There is mild background reticulation with enlargement of the pulmonary vasculature. Patchy bibasilar opacities are redemonstrated, mildly improved from comparison study. There is mild blunting of bilateral costophrenic angles. No pneumothorax or new large area of focal airspace consolidation is identified. There is atherosclerosis of the aorta. The bones appear grossly intact. IMPRESSION: 1. Cardiomegaly with mild pulmonary edema pattern. 2. Small pleural effusions. 3. Patchy bibasilar opacities suggest atelectasis/scarring with superimposed pneumonia thought to be less likely. The above report was generated using voice recognition software. It may contain grammatical, syntax or spelling errors. Electronically signed by: Jesús Magaña M.D. 11/13/2016 11:45 AM Dictated Date/Time: 11/13/2016 11:42 AM Laboratory Results 11/13/16 11:03 Red Blood Count 4.12, Mean Corpuscular Volume 88.3, Mean Corpuscular Hemoglobin 28.4, Mean Corpuscular Hemoglobin Concent 32.1, Mean Platelet Volume 9.6, Neutrophils (%) (Auto) 76.2, Lymphocytes (%) (Auto) 14.3, Monocytes (%) (Auto) 8.8, Eosinophils (%) (Auto) 0.2, Basophils (%) (Auto) 0.1, Neutrophils # (Auto) 6.52, Lymphocytes # (Auto) 1.22, Monocytes # (Auto) 0.75, Eosinophils # (Auto) 0.02, Basophils # (Auto) 0.01 11/13/16 11:03 Test 11/13/16 11:03 White Blood Count 8.55 K/uL (4.8-10.8) Red Blood Count 4.12 M/uL (4.7-6.1) Hemoglobin 11.7 g/dL (14.0-18.0) Hematocrit 36.4 % (42-52) Mean Corpuscular Volume 88.3 fL (80-100) Mean Corpuscular Hemoglobin 28.4 pg (25-34) Mean Corpuscular Hemoglobin Concent 32.1 g/dl (32-36) Platelet Count 241 K/uL (130-400) Mean Platelet Volume 9.6 fL (7.4-10.4) Neutrophils (%) (Auto) 76.2 % Lymphocytes (%) (Auto) 14.3 % Monocytes (%) (Auto) 8.8 % Eosinophils (%) (Auto) 0.2 % Basophils (%) (Auto) 0.1 % Neutrophils # (Auto) 6.52 K/uL (1.4-6.5) Lymphocytes # (Auto) 1.22 K/uL (1.2-3.4) Monocytes # (Auto) 0.75 K/uL (0.11-0.59) Eosinophils # (Auto) 0.02 K/uL (0-0.5) Basophils # (Auto) 0.01 K/uL (0-0.2) RDW Standard Deviation 46.6 fL (36.4-46.3) RDW Coefficient of Variation 14.3 % (11.5-14.5) Immature Granulocyte % (Auto) 0.4 % Immature Granulocyte # (Auto) 0.03 K/uL (0.00-0.02) Prothrombin Time 20.2 SECONDS (9.0-12.0) Prothromb Time International Ratio 1.8 (0.9-1.1) Activated Partial Thromboplast Time 36.9 SECONDS (21.0-31.0) Partial Thromboplastin Ratio 1.4 Anion Gap 6.0 mmol/L (3-11) Est Creatinine Clear Calc Drug Dose 41.8 ml/min Estimated GFR () 47.1 Estimated GFR (Non- 40.7 BUN/Creatinine Ratio 21.9 (10-20) Calcium Level 8.9 mg/dl (8.5-10.1) Magnesium Level 1.8 mg/dl (1.8-2.4) Total Bilirubin 0.7 mg/dl (0.2-1) Direct Bilirubin 0.2 mg/dl (0-0.2) Aspartate Amino Transf (AST/SGOT) 10 U/L (15-37) Alanine Aminotransferase (ALT/SGPT) 25 U/L (12-78) Alkaline Phosphatase 71 U/L (45-117) Total Creatine Kinase 60 U/L (39-308) Creatine Kinase MB 3.6 ng/ml (0.5-3.6) Creatine Kinase MB Ratio 6.0 (0-3.0) Total Protein 6.1 gm/dl (6.4-8.2) Albumin 2.6 gm/dl (3.4-5.0) Thyroid Stimulating Hormone (TSH) 1.250 uIu/ml (0.300-4.500) Laboratory results per my review. Medications Administered Medications (Trade) Dose Ordered Sig/Bertha Route Start Time Stop Time Status Last Admin Dose Admin Metoprolol Tartrate (Lopressor Iv) 5 mg STK-MED ONCE .ROUTE 11/13/16 11:30 11/13/16 11:31 DC 11/13/16 11:33 5 MG Metoprolol Tartrate (Lopressor Iv) 5 mg NOW STAT IV 11/13/16 12:09 11/13/16 12:10 DC 11/13/16 12:16 5 MG Furosemide (Lasix Inj) 40 mg NOW STAT IV 11/13/16 12:11 11/13/16 12:13 DC 11/13/16 12:21 40 MG Metoprolol Tartrate (Lopressor Iv) 5 mg NOW STAT IV 11/13/16 12:34 11/13/16 12:35 DC 11/13/16 12:47 5 MG Diltiazem HCl (Cardizem Inj) 20 mg NOW STAT IV 11/13/16 12:57 11/13/16 12:58 DC 11/13/16 13:35 10 MG Digoxin (Digoxin IV) 250 mcg ONE ONCE IV 11/13/16 13:15 11/13/16 13:16 DC 11/13/16 13:29 250 MCG Diltiazem HCl (Cardizem Inj) 10 mg NOW STAT IV 11/13/16 13:58 11/13/16 14:00 DC 11/13/16 14:04 10 MG Sodium Chloride 250 ml @ 999 mls/hr Q16M STAT IV 11/13/16 13:58 11/13/16 14:13 DC 11/13/16 14:04 999 MLS/HR ECG Indication: tachycardia Rate (beats per minute): 150 Rhythm: atrial flutter (rapid) Findings: LAFB, nonspecific-ST abn, other (2 to 1 AV conduction) ED Course 1108: Past medical records reviewed. The patient was evaluated in room C3. A complete history and physical examination was performed. 1130: Ordered Lopressor 5 mg IV 1209: Ordered Lopressor 5 mg IV 1211: Ordered Lasix Inj 40 mg IV 1234: Ordered Lopressor 5 mg IV 1257: Ordered Diltiazem HCl 20 mg IV 1300: I reviewed the patient's case with Dr. Gerardo Salinas Cardiology. He recommends giving the patient 250 mcg of Digoxin and he agrees with trying Cardizem as long as the patient is in agreement. 1315: Ordered Digoxin 250 mcg IV 1338: Upon reevaluation, the patient is resting comfortably. I discussed laboratory and radiographic results with him. He verbalized agreement of the treatment plan. The patient will be evaluated for further management and care. 1346: I reviewed the patient's case with Eliane Keating. She will evaluate the patient for further management. Medical Decision Differential diagnoses includes premature contractions, electrolyte abnormality , cardiac dysrhythmia, thyroid dysfunction, pulmonary embolism, infection, gastrointestinal. Medication Reconciliation: I attest that I have personally reviewed the patient' s current medication list. Blood Pressure Screening: Patient was found to have normal blood pressure on screening and does not require follow-up. This patient was evaluated and appeared to be in no significant distress. Patient is found to be in a rapid atrial flutter in the 140s 150s. Patient was given 3 separate doses of IV metoprolol 5 mg without any benefit. Laboratory work is unrevealing. Cardiac enzymes are normal. EKG reveals mild nonspecific ST changes without evidence of acute ST elevation RI. Patient's chest x-ray reveals evidence of pulmonary edema. He was given 40 mg of IV Lasix. She was given 10 mg of IV Cardizem with a mild drop in blood pressure. He was then given 250 mL of IV normal saline solution. Patient was then given an additional 10 mg of IV Cardizem with some improvement. The case was discussed with Dr. Carrillo who recommended digoxin 250 g IV. He was discussed with the hospitalist service will evaluate the patient for further management. The patient is aware of the plan and agrees. Consults Time Called: 1250 Consulting Physician: Dr. Gerardo Waters Returned Call: 1300 I reviewed the patient's case with Dr. Gerardo Waters. He recommends giving the patient 250 mcg of Digoxin and he agrees with trying Cardizem as long as the patient is in agreement. Additional Consults: Time Called: 1334 Consulted Physician: Eliane Mckinney Returned Call: 1346 Additional Comments: I reviewed the patient's case with Eliane Keating. She will evaluate the patient for further management. Impression Primary Impression: Atrial flutter with rapid ventricular response Additional Impression: Congestive heart failure Scribe Attestation The scribe's documentation has been prepared under my direction and personally reviewed by me in its entirety. I confirm that the note above accurately reflects all work, treatment, procedures, and medical decision making performed by me. Departure Information Dispostion Being Evaluated By Hospitalist Kg Cardoso M.D. (PCP) Patient Instructions My [facility] Problem Qualifiers Additional Impression: Congestive heart failure Congestive heart failure type: unspecified congestive heart failure type Congestive heart failure chronicity: acute Qualified Codes: I50.9 - Heart failure, unspecified
[2016-11-13 11:58] LABS: THYROID STIMULATING HORMONE 1.25 uIu/ml (0.300-4.500)
[2016-11-13] MEDS ORDERED: FUROSEMIDE 40 MG/4 ML VIAL IV STA (12:11)
[2016-11-13] MEDS ORDERED: DILTIAZEM HCL 5 MG/ML 5 ML VIAL IV STA ×2 (12:57→13:58)
[2016-11-13] MEDS ORDERED: DIGOXIN INJ 500 MCG/2 ML AMP IV ONE (13:15)
[2016-11-13] MEDS ORDERED: SODIUM CHLORIDE 0.9% 250ML 250 ML IV STA (13:58)
[2016-11-13] MEDS ORDERED: SODIUM CHLORIDE 0.9% 1000ML 1,000 ML IV SCH (14:09)
[2016-11-13] MEDS ORDERED: ALUMINUM/MAGNESIUM/SIMETH (MAALOX MAX) 30 ML UDC PO PRN (14:15)
[2016-11-13] MEDS ORDERED: DEXTROSE 50% 50 ML SYR IV PRN (14:15)
[2016-11-13] MEDS ORDERED: LEVALBUTEROL 0.63MG/3 ML NEB INH PRN (14:15)
[2016-11-13] MEDS ORDERED: POLYETHYLENE (MIRALAX) 17 GM PACK PO PRN (14:15)
[2016-11-13] MEDS ORDERED: GLUCAGON FOR INJ 1 MG VIAL SQ PRN (14:15)
[2016-11-13] MEDS ORDERED: ONDANSETRON INJ 2 MG/ML 2 ML VIAL IV PRN (14:15)
[2016-11-13] MEDS ORDERED: ZOLPIDEM TARTRATE 5 MG TAB PO PRN (14:15)
[2016-11-13] MEDS ORDERED: GLUCOSE 40% GEL 15 GM TUBE PO PRN (14:15)
[2016-11-13] MEDS ORDERED: MAGNESIUM HYDROXIDE SUSP 30 ML UDC PO PRN (14:15)
[2016-11-13] MEDS ORDERED: GLUCOSE 10 TABS/TUBE PO PRN (14:15)
[2016-11-13] MEDS ORDERED: ACETAMINOPHEN 325 MG TAB PO PRN (14:15)
[2016-11-13 14:36] VITALS: BP 105/70; TEMP 36.4; BMI 27.2
[2016-11-13 15:28] VITALS: BP 109/78; PULSE 141; TEMP 36.8; O2SAT 93
[2016-11-13 15:45] LABS: POINT OF CARE PRO-BNP 2379 pg/ml (0-1800); POINT OF CARE TROPONIN I < 0.030 ng/ml (0-0.045)
--- NOTE | 2016-11-13 15:55 | History and Physical ---
History & Physical Date & Time of Service: Nov 13, 2016 at 15:30 Chief Complaint: AFIB Primary Care Physician: Kg Monte M.D. History of Present Illness Source: patient, clinic records, hospital records This is a 76 year old male with a PMH of paroxysmal atrial fibrillation on Coumadin, COPD, interstitial lung disease, nocturnal hypoxemia, DM2 on insulin, CKD stage 3 - presented to [facility] for a bronchoscopy to evaluate his interstitial lung disease; has had biopsy in the past to evaluate for possible asbestosis exposure; states he has been requiring oxygen therapy throughout daytime (at baseline, only uses this nocturnally) -- was to get bronchoscopy but noted to have elevated HR and A. Fib with RVR. He was sent to the ER; HRs were in the 140s. States he was here last month with similar symptoms including COPD exacerbation and A. Fib with RVR. At that time, he was started on Coumadin and Metoprolol. Was given a few doses of Cardizem in the ER. Blood pressure had been on the lower side, so a dose of digoxin was also given after consulting with cardiology. I saw the patient in the ER and he has no complaints at this time; tells me that he does not have chest pain or palpitations. Breathing status is at baseline and tells me that his cough is slightly better than baseline. No other complaints at this time. Past Medical/Surgical History Medical Problems: (1) Asbestos exposure Status: Chronic (2) BPH (benign prostatic hypertrophy) Status: Chronic (3) CKD (chronic kidney disease) stage 3, GFR 30-59 ml/min Status: Chronic (4) COPD (chronic obstructive pulmonary disease) Permanent Comment: moderate Status: Chronic (5) Diabetes type I Status: Chronic (6) Dyslipidemia Status: Chronic (7) History of basal cell carcinoma Status: Chronic (8) Hypertension Status: Chronic (9) Paroxysmal atrial fibrillation Status: Chronic Surgical Problems: (1) H/O nasal polypectomy Status: Resolved (2) History of inguinal hernia repair Status: Resolved (3) History of surgery of head Permanent Comment: correct skull abnormality- left temporoparietal ; 1992 Status: Resolved Family History Cancer MOTHER Diabetes mellitus BROTHER Gallbladder disease Heart disease Hypertension Kidney disease Kidney stones Social History Smoking Status: Former Smoker Drug Use: none Marital Status: Housing status: lives with family Occupational Status: retired Immunizations History of Influenza Vaccine: Yes History of Tetanus Vaccine?: Yes History of Pneumococcal: Yes History of Hepatitis B Vaccine: Unknown Multi-Drug Resistant Organisms History of MDRO: No Allergies Coded Allergies: Diltiazem (Verified Allergy, Mild, RASH, 10/11/16) Aspirin (Verified Adverse Reaction, Mild, GI SYMPTOMS, 10/11/16) Lisinopril (Verified Adverse Reaction, Unknown, cough, 10/11/16) Propoxyphene (Verified Adverse Reaction, Unknown, STOMACH UPSET DIARRHEA, 10/11/16) Home Medications Scheduled Fluticasone Propionate (Fluticasone Propionate), 2 SPRAYS ALDEN DAILY Furosemide (Lasix), 20 MG PO DAILY Insulin Aspart (Novolog Flexpen), 1 DOSE SQ ACHS Insulin Detemir (Levemir), SQ UD Ipratropium-Albuterol (Combivent Respimat), 1 PUFF PO QID Levalbuterol (Levalbuterol), 1.25 MG INH Q6R Losartan Potassium (Losartan Potassium), 50 MG PO DAILY Nitroglycerin (Nitrostat), 0.4 MG UT PRN Prednisone (Prednisone), 7.5 MG PO DAILY Ranitidine HCl (Ranitidine HCl), 1 TAB PO BID Simvastatin (Zocor), 20 MG PO QPM Tamsulosin Hcl (Flomax), 0.4 MG PO HS Tiotropium Earlimart (Spiriva Handihaler), 2 PUFFS INH DAILY Warfarin Sod (Jantoven), 5 MG PO DAILY Scheduled PRN Ipratropium-Albuterol (Duoneb), 1 TREATMENT INH Q4H PRN for PRN Zolpidem Tartrate (Ambien), 5 MG PO HS PRN for INSOMNIA Review of Systems Constitutional: No fever, No chills, No weakness Respiratory: + cough (chronic), + sputum, + shortness of breath, + dyspnea on exertion, + dyspnea at rest, No wheezing, No hemoptysis Cardiovascular: + edema (intermittent), No chest pain, No palpitations Abdomen: No pain, No nausea, No vomiting, No diarrhea Musculoskeletal: No joint pain, No muscle pain Genitourinary - Male: No hematuria, No dysuria, No urinary frequency, No urinary urgency Neurologic: No weakness Psychiatric: No depression symptoms, No anxiety Endocrine: No fatigue Hematologic / Lymphatic: No abnormal bleeding/bruising Integumentary: No rash Allergic / Immunologic: No environmental allergies, No seasonal allergies Physical Exam Vital Signs Date Time Temp Pulse Resp B/P (MAP) Pulse Ox O2 Delivery O2 Flow Rate FiO2 11/13/16 15:28 36.8 141 19 109/78 (88) 93 Room Air 11/13/16 14:46 110 11/13/16 14:36 36.4 18 105/70 Nasal Cannula 2.0 11/13/16 14:21 111 18 105/70 11/13/16 14:06 145 18 103/78 11/13/16 13:45 115 90/70 11/13/16 13:29 146 11/13/16 13:25 146 102/67 11/13/16 13:23 144 11/13/16 12:48 142 18 112/69 11/13/16 12:47 139 112/69 11/13/16 12:24 146 15 124/94 98 Nasal Cannula 2.0 11/13/16 12:16 146 128/94 11/13/16 12:14 147 15 128/94 97 Nasal Cannula 2.0 11/13/16 12:01 149 15 118/92 99 Nasal Cannula 11/13/16 11:35 150 18 137/102 11/13/16 11:33 153 137/102 11/13/16 11:30 36.4 11/13/16 11:04 97 Nasal Cannula 2.0 11/13/16 11:00 93 Room Air 11/13/16 10:56 150 11/13/16 10:55 150 18 139/98 93 Room Air General Appearance: no apparent distress Head: normocephalic, atraumatic Eyes: normal inspection ENT: hearing grossly normal Respiratory/Chest: no respiratory distress, no accessory muscle use, + rhonchi (sonorous breath sounds) Cardiovascular: no murmur, + tachycardia, + irregularly irregular Abdomen/GI: normal bowel sounds, non tender, soft Extremities/Musculoskelatal: + pertinent finding (+1-2 pitting edema b/l LE) Neurologic/Psych: no motor/sensory deficits, alert, normal mood/affect Skin: normal color Lymphatic: no adenopathy Diagnostics Laboratory Results Results Past 24 Hours Test 11/13/16 11:03 Range/Units White Blood Count 8.55 4.8-10.8 K/uL Red Blood Count 4.12 4.7-6.1 M/uL Hemoglobin 11.7 14.0-18.0 g/dL Hematocrit 36.4 42-52 % Mean Corpuscular Volume 88.3 80-100 fL Mean Corpuscular Hemoglobin 28.4 25-34 pg Mean Corpuscular Hemoglobin Concent 32.1 32-36 g/dl Platelet Count 241 130-400 K/uL Mean Platelet Volume 9.6 7.4-10.4 fL Neutrophils (%) (Auto) 76.2 % Lymphocytes (%) (Auto) 14.3 % Monocytes (%) (Auto) 8.8 % Eosinophils (%) (Auto) 0.2 % Basophils (%) (Auto) 0.1 % Neutrophils # (Auto) 6.52 1.4-6.5 K/uL Lymphocytes # (Auto) 1.22 1.2-3.4 K/uL Monocytes # (Auto) 0.75 0.11-0.59 K/uL Eosinophils # (Auto) 0.02 0-0.5 K/uL Basophils # (Auto) 0.01 0-0.2 K/uL RDW Standard Deviation 46.6 36.4-46.3 fL RDW Coefficient of Variation 14.3 11.5-14.5 % Immature Granulocyte % (Auto) 0.4 % Immature Granulocyte # (Auto) 0.03 0.00-0.02 K/uL Prothrombin Time 20.2 9.0-12.0 SECONDS Prothromb Time International Ratio 1.8 0.9-1.1 Activated Partial Thromboplast Time 36.9 21.0-31.0 SECONDS Partial Thromboplastin Ratio 1.4 Sodium Level 140 136-145 mmol/L Potassium Level 4.9 3.5-5.1 mmol/L Chloride Level 105 98-107 mmol/L Carbon Dioxide Level 29 21-32 mmol/L Anion Gap 6.0 3-11 mmol/L Blood Urea Nitrogen 35 7-18 mg/dl Creatinine 1.60 0.60-1.40 mg/dl Est Creatinine Clear Calc Drug Dose 41.8 ml/min Estimated GFR () 47.1 Estimated GFR (Non- 40.7 BUN/Creatinine Ratio 21.9 10-20 Random Glucose 257 70-99 mg/dl Calcium Level 8.9 8.5-10.1 mg/dl Magnesium Level 1.8 1.8-2.4 mg/dl Total Bilirubin 0.7 0.2-1 mg/dl Direct Bilirubin 0.2 0-0.2 mg/dl Aspartate Amino Transf (AST/SGOT) 10 15-37 U/L Alanine Aminotransferase (ALT/SGPT) 25 12-78 U/L Alkaline Phosphatase 71 45-117 U/L Total Creatine Kinase 60 39-308 U/L Creatine Kinase MB 3.6 0.5-3.6 ng/ml Creatine Kinase MB Ratio 6.0 0-3.0 Total Protein 6.1 6.4-8.2 gm/dl Albumin 2.6 3.4-5.0 gm/dl Thyroid Stimulating Hormone (TSH) 1.250 0.300-4.500 uIu/ml Diagnostic Radiology CHEST ONE VIEW PORTABLE HISTORY:76 yearsMalerapid afib, swelling legs COMPARISON: 10/15/2016 TECHNIQUE: Portable upright AP view of the chest FINDINGS: Cardiac silhouette is again enlarged. There is mild background reticulation with enlargement of the pulmonary vasculature. Patchy bibasilar opacities are redemonstrated, mildly improved from comparison study. There is mild blunting of bilateral costophrenic angles. No pneumothorax or new large area of focal airspace consolidation is identified. There is atherosclerosis of the aorta. The bones appear grossly intact. IMPRESSION: 1. Cardiomegaly with mild pulmonary edema pattern. 2. Small pleural effusions. 3. Patchy bibasilar opacities suggest atelectasis/scarring with superimposed pneumonia thought to be less likely. EKG Atrial flutter with 2:1 A-V conduction Left anterior fascicular block Nonspecific ST and T wave abnormality Abnormal ECG Impression Assessment and Plan This is a 76 year old male with a PMH of paroxysmal atrial fibrillation on Coumadin, COPD, interstitial lung disease, nocturnal hypoxemia, DM2 on insulin, CKD stage 3 presented for a bronchoscopy and found to have A. Fib with RVR A. Fib with RVR patient states he was taking his medications as prescribed found to have HRs in the 140s given multiple doses of Cardizem and Lopressor Also given one dose of digoxin HRs did improve to the 110s during my exam he has no symptoms at this time continue Coumadin, INR of 1.8, slightly subtherapeutic monitor in tele and cardiology consulted for further input COPD and Interstitial Lung Disease patient with interstitial lung disease, supposed to have a bronchoscopy for further diagnosis and treatment but could not be performed he is taking chronic prednisone, should have this tapered down to prevent further A. Fib issues will consult pulmonology for further input low dose Xopenex to prevent further tachycardia - only as needed will need O2 nocturnally, will attempt to wean in the daytime DM2 insulin dependent we can start with Lantus 10 units BID and a sliding scale monitor BSGs and adjust accordingly CKD stage 3 creatinine at 1.6, which is right around baseline gave some IVFs, but will hold for now to prevent fluid overload DVT ppx Coumadin FULL CODE Advanced Directives Existing Living Will: No Existing Power of Purchasing Analyst: No VTE Prophylaxis VTE Risk Assessment Done? Y/N: Yes Risk Level: High Given or contraindicated: Warfarin (Coumadin)
[2016-11-13] MEDS: IPRATROPIUM BROMIDE/ALBUTEROL respimat INH INH SCH ×2 (16:08→21:21)
[2016-11-13] MEDS: WARFARIN SOD 5 MG TAB PO SCH ×2 (16:08→16:13)
[2016-11-13] MEDS ORDERED: METOPROLOL TARTRATE 25 MG TAB PO ONE (16:30)
--- NOTE | 2016-11-13 16:30 | Cardiology Consultation ---
Cardiology Consultation Requesting Physician: Dr. Maldonado Attending Hair Tinter: Dr. Hall History of Present Illness Patient is a 76 year old male seen for consultation regarding paroxysmal atrial flutter with rapid ventricular response. Patient presented to the outpatient surgical unit today for a bronchoscopy. He was noted to be tachycardic. ECG confirmed atrial flutter with 2:1 conduction. Patient denies palpitations, however, he is aware of his elevated heart rate due to his home pulse oximeter and blood pressure cuff. Denies chest discomfort or unusual shortness of breath. Baseline dyspnea on exertion unchanged. He was recently evaluated in September 2016 for rapid atrial flutter as well as atrial fibrillation. He spontaneously converted to normal sinus rhythm after 2 doses of beta chiquita during that visit. He had been treated with oral Cardizem in the past which induced lower extremity rash. He was not treated with oral beta chiquita as an outpatient due to resting baseline bradycardia in sinus rhythm. 2-D echocardiogram performed last month demonstrated preserved LV systolic function. Past Medical/Surgical History Problem List: Medical Problems: (1) Asbestos exposure (2) BPH (benign prostatic hypertrophy) (3) CKD (chronic kidney disease) stage 3, GFR 30-59 ml/min (4) COPD (chronic obstructive pulmonary disease) (5) COPD exacerbation (6) Diabetes type I (7) Dyslipidemia (8) History of basal cell carcinoma (9) Hypertension (10) Paroxysmal atrial fibrillation (11) Pleural plaque (12) Rapid atrial fibrillation Surgical Problems: (1) H/O nasal polypectomy (2) History of inguinal hernia repair (3) History of surgery of head History History Past Medical and Surgical History Paroxysmal atrial fibrillation CHADS2 Score of 3/6 Hypertension Type II diabetes mellitus Oxygen dependent COPD Status post July 2016 partial pleurectomy and lung biopsy and pathology demonstrating possible interstitial lung disease, organizing aspiration, bronchiolitis, emphysematous changes, 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 Followed by Dr. Patrick. History of tobacco abuse Stage III chronic kidney disease Benign prostatic hypertrophy Dyslipidemia Hernia repair Nasal polypectomy Prostate biopsy Family History: Mother with an unknown cancer in her early 70's. Father at 57 with what sounds like urosepsis following surgery. Two brothers. One is 10 years old with emphysema. One is 8 years older with diabetes mellitus. One sister had an VA in her 40's. Social History: Reformed smoker. Started at the age of 15. Quit at the age of 61. He notes smoking up to 2 ppd. Reformed moderate alcohol consumption, currently drinking one glass of wine 1-2 days per week. No illegal drug use. x 60 years. Five children. One son 15 years old with metastatic colon cancer. Four living children, one son with atrial fibrillation post ablation. 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 [employer], active x 6 months, 4+ years in the [employer] Review Of Systems General: Right greater than left lower extremity edema. Stable weight. No current fever. No chills. HEENT: Bilateral cataract extractions. Glaucoma. Reading glasses. Dentures. No headache. No head trauma. Cardiovascular: See above. Pulmonary: Emphysema. Chronic oxygen therapy. Home SP02 monitor. No history of sleep apnea. Gastrointestinal: No nausea, vomiting, or diarrhea Renal: CKD stage 3, followed by Dr. Zaidi Skin: No rash. Musculoskeletal: Arthritis. Neurological: No history of TIA, CVA, or seizures Complete review of systems is as stated above, negative, or noncontributory. Review Of Systems General: The patient denies weight change, night sweats, fever, chills. Head: The patient denies headache and prior head trauma. Cardiovascular: The patient denies chest pain or chest discomfort, dyspnea on exertion, palpitations, PND, orthopnea, edema, spontaneous shortness of breath, syncope and near syncope. Pulmonary: The patient denies cough, wheeze, pleurisy, hemoptysis, sputum, and excessive snoring. Gastrointestinal: The patient denies nausea, vomiting, diarrhea, constipation, bloating, hematemesis, hematochezia, and abdominal pain. Skin: The patient denies diaphoresis and rash. Musculoskeletal: The patient denies joint pain, joint swelling, myalgia, back pain, neck pain and prior injuries. Neurological: The patient denies prior stroke and seizures Allergies Coded Allergies: Diltiazem (Verified Allergy, Mild, RASH, 10/11/16) Aspirin (Verified Adverse Reaction, Mild, GI SYMPTOMS, 10/11/16) Lisinopril (Verified Adverse Reaction, Unknown, cough, 10/11/16) Propoxyphene (Verified Adverse Reaction, Unknown, STOMACH UPSET DIARRHEA, 10/11/16) Medications Reported Home Medications Medications Dose Route/Sig Max Daily Dose Days Date Category Dose Instructions Spiriva Handihaler (Tiotropium [place]) 30 Puff/540 Mcg Aerp 2 Puffs INH DAILY 11/13/16 Reported Losartan Potassium 50 Mg Tab 50 Mg PO DAILY 11/13/16 Reported Jantoven (Warfarin Sodium) 2.5 Mg Tab 5 Mg PO DAILY 11/13/16 Reported TWO 2.5MG TABLETS DAILY OR DIRECTED. Nitrostat (Nitroglycerin) 0.4 Mg Sub 0.4 Mg UT PRN 11/13/16 Reported Prednisone 5 Mg Tab 7.5 Mg PO DAILY 11/13/16 Reported Combivent Respimat (Ipratropium-Albuterol) 1 Aer Aer 1 Puff PO QID 11/13/16 Reported Levalbuterol 1.25 Mg/0.5 Ml Nebu 1.25 Mg INH Q6R 10 10/17/16 Rx Novolog Flexpen (Insulin Aspart) 100 Units/Ml Inj 1 Dose SQ ACHS 10/11/16 Reported SLIDING SCALE. APPROX 10UNITS BID Ranitidine HCl 150 Mg Tab 1 Tab PO BID 10/11/16 Reported Fluticasone Propionate 120 Sprays/6000 Mcg Inha 2 Sprays ALDEN DAILY 10/11/16 Reported Duoneb (Ipratropium-Albuterol) 3 Ml Nebu 1 Treatment INH Q4H PRN 07/24/16 Reported Ambien (Zolpidem Tartrate) 5 Mg Tab 5 Mg PO HS PRN 05/14/16 Reported Levemir (Insulin Detemir) 100 Units/Ml Inj SQ UD 05/14/16 Reported 14 units in am and 8 units in pm Lasix (Furosemide) 20 Mg Tab 20 Mg PO DAILY 09/18/14 Reported Flomax (Tamsulosin Hcl) 0.4 Mg Cap 0.4 Mg PO HS 09/18/14 Reported Zocor (Simvastatin) 20 Mg Tab 20 Mg PO QPM 12/11/08 Reported take with supper Physical Exam Vital Signs (Last 8hrs): Last 8 Hrs Date Time Temp Pulse Resp B/P (MAP) Pulse Ox O2 Delivery O2 Flow Rate FiO2 11/13/16 15:28 36.8 141 19 109/78 (88) 93 Room Air 11/13/16 14:46 110 11/13/16 14:36 36.4 18 105/70 Nasal Cannula 2.0 11/13/16 14:21 111 18 105/70 11/13/16 14:06 145 18 103/78 11/13/16 13:45 115 90/70 11/13/16 13:29 146 11/13/16 13:25 146 102/67 11/13/16 13:23 144 11/13/16 12:48 142 18 112/69 11/13/16 12:47 139 112/69 11/13/16 12:24 146 15 124/94 98 Nasal Cannula 2.0 11/13/16 12:16 146 128/94 11/13/16 12:14 147 15 128/94 97 Nasal Cannula 2.0 11/13/16 12:01 149 15 118/92 99 Nasal Cannula 11/13/16 11:35 150 18 137/102 11/13/16 11:33 153 137/102 11/13/16 11:30 36.4 11/13/16 11:04 97 Nasal Cannula 2.0 11/13/16 11:00 93 Room Air 11/13/16 10:56 150 11/13/16 10:55 150 18 139/98 93 Room Air General Appearance: Alert and Oriented x3. NAD. Head: Normocephalic Atraumatic. Eyes: PERRLA, EOMI, conjunctiva and sclera clear Neck: Supple. No carotid bruits noted. No JVD. No HJD. Respiratory: Diminished breath sounds bilaterally bilaterally. No w/r/r. Cardiovascular: Reg rate tachycardic. S1 and S2 noted. No murmurs, rubs, gallops. PMI non displace. Abdomen: Normal bowel sounds, soft nontender. no abdominal bruits. Extremities: No edema, no clubbing or cyanosis. distal pulses 2/4 bilaterally. Neuro: No focal deficits. Psychiatric: Normal affect. Data Last 24 Hours Test 11/13/16 11:03 11/13/16 11:28 White Blood Count 8.55 K/uL Red Blood Count 4.12 M/uL Hemoglobin 11.7 g/dL Hematocrit 36.4 % Mean Corpuscular Volume 88.3 fL Mean Corpuscular Hemoglobin 28.4 pg Mean Corpuscular Hemoglobin Concent 32.1 g/dl Platelet Count 241 K/uL Mean Platelet Volume 9.6 fL Neutrophils (%) (Auto) 76.2 % Lymphocytes (%) (Auto) 14.3 % Monocytes (%) (Auto) 8.8 % Eosinophils (%) (Auto) 0.2 % Basophils (%) (Auto) 0.1 % Neutrophils # (Auto) 6.52 K/uL Lymphocytes # (Auto) 1.22 K/uL Monocytes # (Auto) 0.75 K/uL Eosinophils # (Auto) 0.02 K/uL Basophils # (Auto) 0.01 K/uL RDW Standard Deviation 46.6 fL RDW Coefficient of Variation 14.3 % Immature Granulocyte % (Auto) 0.4 % Immature Granulocyte # (Auto) 0.03 K/uL Prothrombin Time 20.2 SECONDS Prothromb Time International Ratio 1.8 Activated Partial Thromboplast Time 36.9 SECONDS Partial Thromboplastin Ratio 1.4 Sodium Level 140 mmol/L Potassium Level 4.9 mmol/L Chloride Level 105 mmol/L Carbon Dioxide Level 29 mmol/L Anion Gap 6.0 mmol/L Blood Urea Nitrogen 35 mg/dl Creatinine 1.60 mg/dl Est Creatinine Clear Calc Drug Dose 41.8 ml/min Estimated GFR () 47.1 Estimated GFR (Non- 40.7 BUN/Creatinine Ratio 21.9 Random Glucose 257 mg/dl Calcium Level 8.9 mg/dl Magnesium Level 1.8 mg/dl Total Bilirubin 0.7 mg/dl Direct Bilirubin 0.2 mg/dl Aspartate Amino Transf (AST/SGOT) 10 U/L Alanine Aminotransferase (ALT/SGPT) 25 U/L Alkaline Phosphatase 71 U/L Total Creatine Kinase 60 U/L Creatine Kinase MB 3.6 ng/ml Creatine Kinase MB Ratio 6.0 Total Protein 6.1 gm/dl Albumin 2.6 gm/dl Thyroid Stimulating Hormone (TSH) 1.250 uIu/ml Bedside Troponin I < 0.030 ng/ml [id number] Natriuretic Peptide 2379 pg/ml Imaging: Cardiomegaly with small bilateral pleural effusions. EKG: Atrial flutter with 2:1 conduction Telemetry reviewed: Atrial flutter with a ventricular rate of 145 bpm. Assessment & Plan Final impression: 1. Paroxysmal atrial flutter with rapid ventricular response in 2-1 AV conduction. - INR subtherapeutic 2. Acute on chronic bilateral lower extremity edema secondary to rapid atrial flutter, diastolic dysfunction, and renal dysfunction 3. HTN 4. Dyslipidemia Plan/Recommendations: Oral metoprolol, 25 mg twice daily will be added. He will receive one dose now followed by a repeat dose at approximately 10 PM this evening. Patient previously converted to normal sinus rhythm with beta chiquita therapy during recent hospitalization in September. He is currently asymptomatic. I will hold intravenous fluid and continue diuretic therapy. Intravenous heparin will be initiated secondary to subtherapeutic INR. He will receive an additional 5 mg of warfarin tomorrow. Repeat PT/INR will be performed in the a.m. Plan of care discussed with patient and family at bedside. No need for repeat resting 2 -D transthoracic echo at this time. I will continue to follow closely during hospitalization.
[2016-11-13] MEDS: HEPARIN 25000 UNIT/ D5W 500 ML (PHARMACY PREPARED) IV PRN ×2 (17:58)
[2016-11-13] MEDS: INSULIN ASPART 100 UNITS/ML 3 ML PEN SC SCH ×2 (18:00→21:23)
[2016-11-13] MEDS ORDERED: HEPARIN IV BOLUS 7,000 UNIT in SYRINGE 0 ML IV ONE (18:00)
[2016-11-13 19:00] LABS: URINE APPEARANCE CLEAR (CLEAR); URINE BILIRUBIN NEG (NEG); URINE COLOR YELLOW; URINE NITRITE NEG (NEG); URINE PH 5.5 (4.5-7.5); URINE SPECIFIC GRAVITY 1.018 (1.000-1.030); UROBILINOGEN NEG (NEG); ZZUR CULT IF INDIC CLEAN CATCH NO
[2016-11-13 19:27] LABS: MANUAL MICROSCOPIC REQUIRED? NO; REVIEW REQ? NO
[2016-11-13 19:31] VITALS: BP 102/62; PULSE 132; TEMP 36.6; O2SAT 94
[2016-11-13] MEDS: RANITIDINE HCL 150 MG TAB PO SCH (21:21)
[2016-11-13] MEDS: SIMVASTATIN 20 MG TAB PO SCH (21:22)
[2016-11-13] MEDS: TAMSULOSIN HCL 0.4 MG CAP PO SCH (21:22)
[2016-11-13] MEDS: INSULIN GLARGINE SOLOSTAR 100 UNITS/ML 3 ML PEN SC SCH (21:24)
[2016-11-13] MEDS: METOPROLOL TARTRATE 25 MG TAB PO SCH (21:25)
[2016-11-13 23:49] VITALS: BP 114/66; PULSE 111; TEMP 37.2; O2SAT 94
[2016-11-14] VITALS (9 sets, daily range): BP systolic 91–132; BP diastolic 51–73; PULSE 84–141; TEMP 36.6–37; O2SAT 93–98
[2016-11-14 00:48] LABS: PARTIAL THROMBOPLASTIN RATIO 6.8
[2016-11-14] MEDS: HEPARIN 25000 UNIT/ D5W 500 ML (PHARMACY PREPARED) IV PRN ×6 (00:58→15:38)
[2016-11-14 02:17] LABS: PARTIAL THROMBOPLASTIN RATIO 3.8
--- NOTE | 2016-11-14 06:06 | Clinical Documentation Query ---
CONNIE Montelongo : CLINICAL DOCUMENTATION QUERY Patient is a 76 year old male admitted secondary to atrial flutter with a rapid ventricular response. Documentation includes "Acute on chronic bilateral lower extremity edema secondary to rapid atrial flutter, diastolic dysfunction" and "I will hold intravenous fluid and continue diuretic therapy". As appropriate, consider documentation as suggested below. Thank you. In your clinical opinion is this patient being managed for: ( x ) Acute on chronic diastolic CHF secondary to rapid atrial flutter ( ) Other explanation of clinical findings (Please Explain) ( ) Unable to determine (Please Define) ( ) Need to Discuss ( ) Not Agree The medical record reflects the following clinical findings, treatment, and risk factors. Clinical Indicators: As above Treatment: Telemetry, I/O, diuretics, cardiology consultation, AHA diabetic Risk Factors: Atrial flutter Please clarify and document your clinical opinion in the progress notes and discharge summary. Terms such as "probable", "suspected", "likely", "questionable", "possible", or "still to be ruled out" are acceptable. IF IN AGREEMENT, YOU MUST DOCUMENT ABOVE DIAGNOSTIC STATEMENT IN DAILY PROGRESS NOTES AND DISCHARGE SUMMARY. This document is not part of the patient's record. Thank You, Alejandro Long, RN [phone]
[2016-11-14] MEDS: IPRATROPIUM BROMIDE/ALBUTEROL respimat INH INH SCH ×4 (07:44→20:36)
[2016-11-14] MEDS: RANITIDINE HCL 150 MG TAB PO SCH ×2 (07:45→20:36)
[2016-11-14] MEDS: ASPIRIN 81 MG ECTAB PO SCH (07:45)
[2016-11-14] MEDS: PANTOprazole SOD 40 MG TAB PO SCH (07:45)
[2016-11-14] MEDS: METOPROLOL TARTRATE 25 MG TAB PO SCH ×2 (07:45→20:34)
[2016-11-14 07:46] LABS: HEMATOCRIT 35.7 % (42-52); MEAN CELL VOLUME 86.7 fL (80-100); MEAN CORPUSCULAR HEMOGLOBIN 26.9 pg (25-34); MEAN CORPUSCULAR HGB CONC 31.1 g/dl (32-36); MEAN PLATELET VOLUME 8.9 fL (7.4-10.4); PLATELET COUNT 234 K/uL (130-400); RED BLOOD COUNT 4.12 M/uL (4.7-6.1); WHITE BLOOD COUNT 6.04 K/uL (4.8-10.8)
[2016-11-14 08:06] LABS: INR 1.7 (0.9-1.1); PARTIAL THROMBOPLASTIN RATIO 3.1; PROTHROMBIN TIME (PATIENT) 18.7 SECONDS (9.0-12.0)
[2016-11-14 08:12] LABS: BUN/CREATININE RATIO 22.9 (10-20); CALCIUM 8.7 mg/dl (8.5-10.1); CREATININE 1.7 mg/dl (0.60-1.40); MAGNESIUM 1.6 mg/dl (1.8-2.4); POTASSIUM 4.6 mmol/L (3.5-5.1)
[2016-11-14] MEDS: INSULIN ASPART 100 UNITS/ML 3 ML PEN SC SCH ×4 (08:26→20:34)
[2016-11-14] MEDS: INSULIN GLARGINE SOLOSTAR 100 UNITS/ML 3 ML PEN SC SCH (08:28)
[2016-11-14] MEDS ORDERED: TIOTROPIUM BROMIDE 5 PUFF/90 MCG INH INH SCH (09:00)
[2016-11-14] MEDS: MAGNESIUM SULFATE 1GM / D5W 1 GM in PREMIXED IN D5W 100 ML IV SCH ×2 (09:18→10:21)
[2016-11-14] MEDS ORDERED: GUAIFENESIN 600 MG TABCR PO ONE (09:30)
--- NOTE | 2016-11-14 09:58 | Progress Note ---
Subjective Date of Service: Nov 14, 2016. Subjective Pt evaluation today including: conversation w/ patient, conversation w/ family , physical exam, lab review, review of studies, review of inpatient medication list Saw/examined the patient in room 239 +coughing throughout the night and this morning difficulty bringing up sputum Denies chest pain/palpitations HRs were in the 140s this morning, trending down last evening, but back up this morning Problem List Medical Problems: (1) Atrial fibrillation with RVR Status: Acute (2) Atrial flutter with rapid ventricular response Status: Acute (3) Congestive heart failure Status: Acute (4) COPD exacerbation Status: Acute (5) COPD with exacerbation Status: Acute (6) Dyspnea Status: Acute (7) Pneumonia Status: Acute Review of Systems Constitutional: No fever, No chills, No weakness Respiratory: + cough, + sputum, + shortness of breath, No wheezing, No dyspnea on exertion, No dyspnea at rest, No hemoptysis Cardiac: No chest pain, No edema, No palpitations Abdomen: No pain, No nausea, No vomiting, No diarrhea Medications Current Inpatient Medications Medications (Trade) Dose Ordered Sig/Bertha Route Start Time Stop Time Status Last Admin Dose Admin Acetaminophen (Tylenol Tab) 650 mg Q4H PRN PO 11/13/16 14:15 12/13/16 14:14 Al Hydrox/Mg Hydrox/Simethicone (Maalox Max Susp) 15 ml Q4H PRN PO 11/13/16 14:15 12/13/16 14:14 Magnesium Hydroxide (Milk Of Magnesia Susp) 30 ml Q12H PRN PO 11/13/16 14:15 12/13/16 14:14 Ondansetron HCl (Zofran Inj) 4 mg Q6H PRN IV 11/13/16 14:15 12/13/16 14:14 Aspirin (Ecotrin Tab) 81 mg QAM PO 11/14/16 09:00 12/14/16 08:59 11/14/16 07:45 81 MG Polyethylene (Miralax Powder Packet) 17 gm DAILY PRN PO 11/13/16 14:15 12/13/16 14:14 Insulin Glargine (Lantus Solostar Pen) 10 units Q12 SC 11/13/16 21:00 12/13/16 20:59 11/14/16 08:28 10 UNITS Insulin Aspart (novoLOG ASPART) SLIDING SCALE If C... ACHS SC 11/13/16 16:00 12/13/16 15:59 11/14/16 08:26 4 UNITS Glucose (Glucose 40% Gel) 15-30 GRAMS 15 GRAMS... UD PRN PO 11/13/16 14:15 12/13/16 14:14 Glucose (Glucose Chew Tab) 4-8 Tablets 4 Tabl... UD PRN PO 11/13/16 14:15 12/13/16 14:14 Dextrose (Dextrose 50% 50ML Syringe) 25-50ML OF 50% DW IV FOR... UD PRN IV 11/13/16 14:15 12/13/16 14:14 Glucagon (Glucagon Inj) 1 mg UD PRN SQ 11/13/16 14:15 12/13/16 14:14 Albuterol/ Ipratropium (Combivent Respimat Inh) 1 puffs QID INH 11/13/16 17:00 12/13/16 16:59 11/14/16 07:44 1 PUFFS Prednisone (PredniSONE TAB) 7.5 mg DAILY PO 11/14/16 09:00 12/14/16 08:59 11/14/16 07:45 7.5 MG Ranitidine HCl (zANTac TAB) 150 mg BID PO 11/13/16 21:00 12/13/16 20:59 11/14/16 07:45 150 MG Simvastatin (Zocor Tab) 20 mg QPM PO 11/13/16 21:00 12/13/16 20:59 11/13/16 21:22 20 MG Tamsulosin HCl (Flomax Cap) 0.4 mg HS PO 11/13/16 21:00 12/13/16 20:59 11/13/16 21:22 0.4 MG Tiotropium [place] (Spiriva Handihaler Inhaler) 1 puff DAILY INH 11/14/16 09:00 12/14/16 08:59 11/14/16 07:44 1 PUFF Warfarin Sodium (Coumadin Tab) 5 mg DAILY@1600 PO 11/13/16 16:00 12/13/16 15:59 Zolpidem Tartrate (Ambien Tab) 5 mg HS PRN PO 11/13/16 14:15 12/13/16 14:14 Pantoprazole Sodium (Protonix Tab) 40 mg QAM PO 11/14/16 09:00 12/14/16 08:59 11/14/16 07:45 40 MG Levalbuterol (Xopenex 0.63 Mg/ 3 Ml Neb) 0.63 mg Q6R PRN INH 11/13/16 14:15 12/13/16 14:14 Metoprolol Tartrate (Lopressor Tab) 25 mg BID PO 11/13/16 22:00 12/13/16 21:59 11/14/16 07:45 25 MG Heparin Sodium (Porcine) 96230 unit/Dextrose 500 ml @ 22 mls/hr [id number] PRN IV 11/13/16 17:15 12/13/16 17:14 11/14/16 02:54 25 MLS/HR Magnesium Sulfate 1 gm/Prmx 100 ml @ 100 mls/hr Q1H IV 11/14/16 09:00 11/14/16 10:59 11/14/16 09:18 100 MLS/HR Objective Vital Signs Date Time Temp Pulse Resp B/P (MAP) Pulse Ox O2 Delivery O2 Flow Rate FiO2 11/14/16 08:47 97 Nasal Cannula 2.0 11/14/16 08:10 36.8 141 16 91/64 (73) 97 Room Air 11/14/16 04:10 37.0 140 19 116/73 (87) 98 Room Air 1.5 11/14/16 04:03 Room Air 11/14/16 00:00 Room Air 11/13/16 23:49 37.2 111 20 114/66 (82) 94 Room Air 11/13/16 20:00 Room Air 11/13/16 19:31 36.6 132 18 102/62 (75) 94 Room Air 11/13/16 16:00 Room Air 11/13/16 15:28 36.8 141 19 109/78 (88) 93 Room Air 11/13/16 14:46 110 11/13/16 14:36 36.4 18 105/70 Nasal Cannula 2.0 11/13/16 14:21 111 18 105/70 11/13/16 14:06 145 18 103/78 11/13/16 13:45 115 90/70 11/13/16 13:29 146 11/13/16 13:25 146 102/67 11/13/16 13:23 144 11/13/16 12:48 142 18 112/69 11/13/16 12:47 139 112/69 11/13/16 12:24 146 15 124/94 98 Nasal Cannula 2.0 11/13/16 12:16 146 128/94 11/13/16 12:14 147 15 128/94 97 Nasal Cannula 2.0 11/13/16 12:01 149 15 118/92 99 Nasal Cannula 11/13/16 11:35 150 18 137/102 11/13/16 11:33 153 137/102 11/13/16 11:30 36.4 11/13/16 11:04 97 Nasal Cannula 2.0 11/13/16 11:00 93 Room Air 11/13/16 10:56 150 11/13/16 10:55 150 18 139/98 93 Room Air Physical Exam General Appearance: + mild distress (secondary to cough) Respiratory/Chest: no respiratory distress, no accessory muscle use, + rhonchi Cardiovascular: no murmur, + tachycardia, + irregularly irregular Abdomen: normal bowel sounds, non tender, soft Extremities: normal inspection, no pedal edema Neurologic/Psychiatric: no motor/sensory deficits, alert, normal mood/affect Skin: normal color Laboratory Results Last 24 Hours Test 11/13/16 11:03 11/13/16 11:28 11/13/16 14:56 11/13/16 16:19 White Blood Count 8.55 K/uL Red Blood Count 4.12 M/uL Hemoglobin 11.7 g/dL Hematocrit 36.4 % Mean Corpuscular Volume 88.3 fL Mean Corpuscular Hemoglobin 28.4 pg Mean Corpuscular Hemoglobin Concent 32.1 g/dl Platelet Count 241 K/uL Mean Platelet Volume 9.6 fL Neutrophils (%) (Auto) 76.2 % Lymphocytes (%) (Auto) 14.3 % Monocytes (%) (Auto) 8.8 % Eosinophils (%) (Auto) 0.2 % Basophils (%) (Auto) 0.1 % Neutrophils # (Auto) 6.52 K/uL Lymphocytes # (Auto) 1.22 K/uL Monocytes # (Auto) 0.75 K/uL Eosinophils # (Auto) 0.02 K/uL Basophils # (Auto) 0.01 K/uL RDW Standard Deviation 46.6 fL RDW Coefficient of Variation 14.3 % Immature Granulocyte % (Auto) 0.4 % Immature Granulocyte # (Auto) 0.03 K/uL Prothrombin Time 20.2 SECONDS Prothromb Time International Ratio 1.8 Activated Partial Thromboplast Time 36.9 SECONDS Partial Thromboplastin Ratio 1.4 Sodium Level 140 mmol/L Potassium Level 4.9 mmol/L Chloride Level 105 mmol/L Carbon Dioxide Level 29 mmol/L Anion Gap 6.0 mmol/L Blood Urea Nitrogen 35 mg/dl Creatinine 1.60 mg/dl Est Creatinine Clear Calc Drug Dose 41.8 ml/min Estimated GFR () 47.1 Estimated GFR (Non- 40.7 BUN/Creatinine Ratio 21.9 Random Glucose 257 mg/dl Calcium Level 8.9 mg/dl Magnesium Level 1.8 mg/dl Total Bilirubin 0.7 mg/dl Direct Bilirubin 0.2 mg/dl Aspartate Amino Transf (AST/SGOT) 10 U/L Alanine Aminotransferase (ALT/SGPT) 25 U/L Alkaline Phosphatase 71 U/L Total Creatine Kinase 60 U/L Creatine Kinase MB 3.6 ng/ml Creatine Kinase MB Ratio 6.0 Total Protein 6.1 gm/dl Albumin 2.6 gm/dl Thyroid Stimulating Hormone (TSH) 1.250 uIu/ml Bedside Troponin I < 0.030 ng/ml [id number] Natriuretic Peptide 2379 pg/ml Urine Color YELLOW Urine Appearance CLEAR Urine pH 5.5 Urine Specific [place] 1.018 Urine Protein TRACE Urine Glucose (UA) 3+ Urine Ketones 1+ Urine Occult Blood NEG Urine Nitrite NEG Urine Bilirubin NEG Urine Urobilinogen NEG Urine Leukocyte Esterase NEG Urine WBC (Auto) 0 /hpf Urine RBC (Auto) 0-4 /hpf Urine Hyaline Casts (Auto) 0 /lpf Urine Epithelial Cells (Auto) 5-10 /lpf Urine Bacteria (Auto) NEG Bedside Glucose 247 mg/dl Test 11/13/16 20:21 11/13/16 23:50 11/14/16 01:22 11/14/16 01:47 Bedside Glucose 235 mg/dl Activated Partial Thromboplast Time 179.5 SECONDS 97.7 SECONDS Partial Thromboplastin Ratio 6.8 3.8 Test 11/14/16 01:51 11/14/16 06:17 11/14/16 07:36 Bedside Glucose 95 mg/dl 167 mg/dl White Blood Count 6.04 K/uL Red Blood Count 4.12 M/uL Hemoglobin 11.1 g/dL Hematocrit 35.7 % Mean Corpuscular Volume 86.7 fL Mean Corpuscular Hemoglobin 26.9 pg Mean Corpuscular Hemoglobin Concent 31.1 g/dl RDW Standard Deviation 44.3 fL RDW Coefficient of Variation 14.0 % Platelet Count 234 K/uL Mean Platelet Volume 8.9 fL Prothrombin Time 18.7 SECONDS Prothromb Time International Ratio 1.7 Activated Partial Thromboplast Time 81.5 SECONDS Partial Thromboplastin Ratio 3.1 Sodium Level 136 mmol/L Potassium Level 4.6 mmol/L Chloride Level 100 mmol/L Carbon Dioxide Level 30 mmol/L Anion Gap 6.0 mmol/L Blood Urea Nitrogen 39 mg/dl Creatinine 1.70 mg/dl Est Creatinine Clear Calc Drug Dose 39.3 ml/min Estimated GFR () 43.8 Estimated GFR (Non- 37.8 BUN/Creatinine Ratio 22.9 Random Glucose 182 mg/dl Calcium Level 8.7 mg/dl Magnesium Level 1.6 mg/dl Assessment and Plan This is a 76 year old male with a PMH of paroxysmal atrial fibrillation on Coumadin, COPD, interstitial lung disease, nocturnal hypoxemia, DM2 on insulin, CKD stage 3 presented for a bronchoscopy and found to have A. Fib with RVR A. Fib with RVR 11/14 HRs improved last evening to the 100-110s, but now back up to 140s cough is an exacerbating factor; will give one dose of Mucinex pulmonary consultation pending appreciate cardiology input Lopressor 25mg BID for HR control - issue now is the blood pressure is on the lower side may need Digoxin - will await cardiology input currently on IV heparin due to subtherapeutic INR continue Coumadin with goal INR of 2-3 11/13 patient states he was taking his medications as prescribed found to have HRs in the 140s given multiple doses of Cardizem and Lopressor Also given one dose of digoxin HRs did improve to the 110s during my exam he has no symptoms at this time continue Coumadin, INR of 1.8, slightly subtherapeutic monitor in tele and cardiology consulted for further input COPD and Interstitial Lung Disease patient with interstitial lung disease, supposed to have a bronchoscopy for further diagnosis and treatment but could not be performed he is taking chronic prednisone, should have this tapered down to prevent further A. Fib issues will consult pulmonology for further input low dose Xopenex to prevent further tachycardia - only as needed will need O2 nocturnally, will attempt to wean in the daytime DM2 insulin dependent we can start with Lantus 10 units BID and a sliding scale monitor BSGs and adjust accordingly CKD stage 3 creatinine at 1.6, which is right around baseline gave some IVFs, but will hold for now to prevent fluid overload DVT ppx Coumadin FULL CODE
--- NOTE | 2016-11-14 10:50 | Cardiology Follow-Up ---
Subjective General Date of Service: Nov 14, 2016. Pt evaluation today including: conversation w/ patient, physical exam, chart review, lab review, review of studies, review of inpatient medication list History of Present Illness The patient is a 76 year old male seen in follow-up. Cough and mild wheezing noted today. Heart rate intermittently improving with beta chiquita. Patient unaware of his heart rate. Denies chest discomfort. is present at bedside. Allergies Coded Allergies: Diltiazem (Verified Allergy, Mild, RASH, 10/11/16) Aspirin (Verified Adverse Reaction, Mild, GI SYMPTOMS, 10/11/16) Lisinopril (Verified Adverse Reaction, Unknown, cough, 10/11/16) Propoxyphene (Verified Adverse Reaction, Unknown, STOMACH UPSET DIARRHEA, 10/11/16) Social History Smoking Status: Former Smoker Hx Tobacco Use In Past Year?: No Hx Alcohol Use - Type And Amou: No Hx Substance Use - Type And Am: No Problem List Medical Problems: (1) Atrial fibrillation with RVR Status: Acute (2) Atrial flutter with rapid ventricular response Status: Acute (3) Congestive heart failure Status: Acute (4) COPD exacerbation Status: Acute (5) COPD with exacerbation Status: Acute (6) Dyspnea Status: Acute (7) Pneumonia Status: Acute Review of Systems Respiratory: + cough, + sputum, + wheezing, + dyspnea on exertion, No shortness of breath, No dyspnea at rest, No hemoptysis Cardiac: No chest pain, No orthopnea, No PND, No edema, No palpitations Physical Exam Vital Signs Last Vital Signs Documentation Date Time Temp Pulse Resp B/P (MAP) Pulse Ox O2 Delivery O2 Flow Rate FiO2 11/14/16 08:47 97 Nasal Cannula 2.0 11/14/16 08:10 36.8 141 16 91/64 (73) Physical Exam Constitutional: General Apperance: well-nourished Level of Distress: NAD, chronically ill Ambulation: ambulating normally Head: normocephalic ENMT: normal ENT inspection Neck: supple, trachea midline Lungs: Auscultation: expiratory wheezing, rhonchi Cardiovascular: Heart Auscultation: normal S1, normal S2, no murmurs, tachycardia, irregular rate rhythm Peripheral Pulses: Radial Pulse: normal on the right Abdomen: Bowel Sounds: normal Inspection & Palpation: soft, non-distended, no tenderness, guarding & rebound Musculoskeletal: normal Extremities: no cyanosis, no clubbing, no ulcers, edema Neurologic: Gait & Station: pertinent finding (no focal motor deficit) Cranial Nerves: grossly intact Assessment and Plan Assessment and Plan Final impression: 1. Paroxysmal atrial flutter with rapid ventricular response in 2-1 AV conduction. - Elevated heart rates driven by pulmonary status - Heart rate mildly improved this a.m. - INR subtherapeutic 2. Acute on chronic bilateral lower extremity edema secondary to rapid atrial flutter, diastolic dysfunction, and renal dysfunction 3. HTN 4. Dyslipidemia Plan/Recommendations: Continue oral metoprolol 25 mg twice daily. Intravenous heparin will be continued until INR is greater than 2.0. He will receive a 5 mg dose of warfarin today. Consult pulmonary medicine will be placed to consider bronchoscopy during hospitalization as well as to give advice regarding pulmonary medications with patient cough, wheeze, and sputum production. I will continue to follow closely during hospitalization. Laboratory Results Last 24 Hours Test 11/13/16 11:03 11/13/16 11:28 11/13/16 14:56 11/13/16 16:19 White Blood Count 8.55 K/uL Red Blood Count 4.12 M/uL Hemoglobin 11.7 g/dL Hematocrit 36.4 % Mean Corpuscular Volume 88.3 fL Mean Corpuscular Hemoglobin 28.4 pg Mean Corpuscular Hemoglobin Concent 32.1 g/dl Platelet Count 241 K/uL Mean Platelet Volume 9.6 fL Neutrophils (%) (Auto) 76.2 % Lymphocytes (%) (Auto) 14.3 % Monocytes (%) (Auto) 8.8 % Eosinophils (%) (Auto) 0.2 % Basophils (%) (Auto) 0.1 % Neutrophils # (Auto) 6.52 K/uL Lymphocytes # (Auto) 1.22 K/uL Monocytes # (Auto) 0.75 K/uL Eosinophils # (Auto) 0.02 K/uL Basophils # (Auto) 0.01 K/uL RDW Standard Deviation 46.6 fL RDW Coefficient of Variation 14.3 % Immature Granulocyte % (Auto) 0.4 % Immature Granulocyte # (Auto) 0.03 K/uL Prothrombin Time 20.2 SECONDS Prothromb Time International Ratio 1.8 Activated Partial Thromboplast Time 36.9 SECONDS Partial Thromboplastin Ratio 1.4 Sodium Level 140 mmol/L Potassium Level 4.9 mmol/L Chloride Level 105 mmol/L Carbon Dioxide Level 29 mmol/L Anion Gap 6.0 mmol/L Blood Urea Nitrogen 35 mg/dl Creatinine 1.60 mg/dl Est Creatinine Clear Calc Drug Dose 41.8 ml/min Estimated GFR () 47.1 Estimated GFR (Non- 40.7 BUN/Creatinine Ratio 21.9 Random Glucose 257 mg/dl Calcium Level 8.9 mg/dl Magnesium Level 1.8 mg/dl Total Bilirubin 0.7 mg/dl Direct Bilirubin 0.2 mg/dl Aspartate Amino Transf (AST/SGOT) 10 U/L Alanine Aminotransferase (ALT/SGPT) 25 U/L Alkaline Phosphatase 71 U/L Total Creatine Kinase 60 U/L Creatine Kinase MB 3.6 ng/ml Creatine Kinase MB Ratio 6.0 Total Protein 6.1 gm/dl Albumin 2.6 gm/dl Thyroid Stimulating Hormone (TSH) 1.250 uIu/ml Bedside Troponin I < 0.030 ng/ml [id number] Natriuretic Peptide 2379 pg/ml Urine Color YELLOW Urine Appearance CLEAR Urine pH 5.5 Urine Specific [place] 1.018 Urine Protein TRACE Urine Glucose (UA) 3+ Urine Ketones 1+ Urine Occult Blood NEG Urine Nitrite NEG Urine Bilirubin NEG Urine Urobilinogen NEG Urine Leukocyte Esterase NEG Urine WBC (Auto) 0 /hpf Urine RBC (Auto) 0-4 /hpf Urine Hyaline Casts (Auto) 0 /lpf Urine Epithelial Cells (Auto) 5-10 /lpf Urine Bacteria (Auto) NEG Bedside Glucose 247 mg/dl Test 11/13/16 20:21 11/13/16 23:50 11/14/16 01:22 11/14/16 01:47 Bedside Glucose 235 mg/dl 45 mg/dl Activated Partial Thromboplast Time 179.5 SECONDS 97.7 SECONDS Partial Thromboplastin Ratio 6.8 3.8 Test 11/14/16 01:51 11/14/16 06:17 11/14/16 07:36 Bedside Glucose 95 mg/dl 167 mg/dl White Blood Count 6.04 K/uL Red Blood Count 4.12 M/uL Hemoglobin 11.1 g/dL Hematocrit 35.7 % Mean Corpuscular Volume 86.7 fL Mean Corpuscular Hemoglobin 26.9 pg Mean Corpuscular Hemoglobin Concent 31.1 g/dl RDW Standard Deviation 44.3 fL RDW Coefficient of Variation 14.0 % Platelet Count 234 K/uL Mean Platelet Volume 8.9 fL Prothrombin Time 18.7 SECONDS Prothromb Time International Ratio 1.7 Activated Partial Thromboplast Time 81.5 SECONDS Partial Thromboplastin Ratio 3.1 Sodium Level 136 mmol/L Potassium Level 4.6 mmol/L Chloride Level 100 mmol/L Carbon Dioxide Level 30 mmol/L Anion Gap 6.0 mmol/L Blood Urea Nitrogen 39 mg/dl Creatinine 1.70 mg/dl Est Creatinine Clear Calc Drug Dose 39.3 ml/min Estimated GFR () 43.8 Estimated GFR (Non- 37.8 BUN/Creatinine Ratio 22.9 Random Glucose 182 mg/dl Calcium Level 8.7 mg/dl Magnesium Level 1.6 mg/dl
--- NOTE | 2016-11-14 13:22 | Pulmonary Consultation ---
History General Date of Service: Nov 14, 2016. Stated Complaint: Atrial Flutter With Rvr HPI The patient is a 76 year old male who presents to [facility] with complaints of Atrial Flutter With Rvr. The patient's primary care provider is Kg Monte M.D.. Mr. Beth is a 76-year-old male with history of COPD, interstitial lung disease, nocturnal hypoxemia on oxygen at night, paroxysmal atrial fibrillation on Coumadin, diabetes type 2 on insulin, chronic kidney disease stage III who presents to the ER after being transferred from bronchoscopy suite due to tachycardia, which appeared to be A. fib with RVR. At the time of his initial evaluation, heart rate in the 150 bpm respiratory rate of 18 blood pressure 139/ 98 saturating 93% on room air. He denied any chest pain, palpitations, dizziness, lightheadedness, or presyncope. He states that he has chronic cough with productive sputum is usually whitish in color but has increased in frequency and appears to be yellowish. He denies any hemoptysis. He has history of cough and postnasal drip. He denies any fevers, chills, he has had increased dyspnea on exertion and at rest. He is he also notes that he has increased lower extremity edema over the last several weeks. He states that his normal exercise tolerance is about 100 yards. He has paroxysmal nocturnal dyspnea as well as orthopnea and sleeps with an adjustable bed to keep his head elevated. He was recently admitted last month for community-acquired pneumonia. In the ED, he was given He was given Cardizem and Lopressor for rate control as well as digoxin and admitted for A. fib with RVR. Review of Systems Constitutional: reports: as stated in HPI Eyes: reports: as stated in HPI ENT: reports: as stated in HPI Cardiovascular: reports: as stated in HPI Respiratory: reports: cough, orthopnea, shortness of breath, wheezing, sputum production, BRIGGS, PND, denies: stridor, cyanosis, hemoptysis Gastrointestinal: reports: no symptoms Genitourinary - Male: reports: no symptoms Musculoskeletal: reports: no symptoms Integumentary: reports: no symptoms Neurologic: reports: no symptoms Psychiatric: reports: no symptoms Endocrine: no symptoms Hematologic / Lymphatic: no symptoms Allergic / Immunologic: no symptoms Past Medical History Past Medical History: COPD, diabetes type 2, dyslipidemia, hypertension, chronic kidney disease stage III, paroxysmal A. 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 Pulmonary history Patient has extensive pulmonary history. He is he had initial bronchoscopy in June 2012 which showed normal respiratory keena. He continues to have increasing respiratory symptoms of cough and shortness of breath which prompted another bronchoscopy in December 2007. This too was culture negative and showed normal respiratory keena. The sputum is culture from 09/08/2014 grew Aspergillus fumigatus. He underwent another bronchoscopy on 10/21/2015, which also grew Aspergillus fumigatus. A surgical lung biopsy was done by Dr. Lindsey on 08/10/2016 to rule out interstitial lung disease. The pathology was consistent with emphysema, severe respiratory bronchiolitis, organized aspiration pneumonia and small vessel thromboemboli . A V/Q V/Q study was done which showed intermittent probability for pulmonary embolism. He also had venous Dopplers which were negative for DVT. He had a video swallow exam on 11/2016 that showed no tracheal aspiration was noted at that time. Most recent pulmonary function test done on 07/06/2016 showed a spirometry with moderately severe obstructive ventilatory disease with a FEV1 of 50% with no significant bronchodilator response, lung volumes that were mildly decreased at the TLC of 78%. His DLCO was moderately decreased at 76% corrected 12-year-old volume of 101%. He also has history of calcified pleural plaques on x-ray and CT suggestive suggestive of excess asbestos exposure. 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 Being followed by Dr. Patrick. His case has been presented to [facility] [place] for further discussion of the ILD board. For his COPD, he was using Atrovent, Xopenex, Combivent Respimat MDI and Dulera 200/5. He is currently not on Spriva due to increased urinary retention. Past Surgical History: Nasal polypectomy, inguinal hernia repair Bronchoscopy 4 Thoracoscopy 07/2016 Family History Cancer MOTHER Diabetes mellitus BROTHER Gallbladder disease Heart disease Hypertension Kidney disease Kidney stones His mother at age 72 with cancer. Father from esophageal cancer. He has a brother with diabetes and one with asthma. Social History Social history 2 packs per day tobacco smoking for 40 years he stopped in 1995. He denies any alcohol use or illicit drug use. He used to work as a truck sales manager and has asbestos exposure. Hx Tobacco Use In Past Year?: No Smoking Status: Former Smoker Marital status: Housing status: lives with family Occupational Status: retired Immunizations History of Influenza Vaccine: Yes History of Tetanus Vaccine?: Yes History of Pneumococcal: Yes History of Hepatitis B Vaccine: Unknown History of MDRO History of MDRO: No Allergies Coded Allergies: Diltiazem (Verified Allergy, Mild, RASH, 10/11/16) Aspirin (Verified Adverse Reaction, Mild, GI SYMPTOMS, 10/11/16) Lisinopril (Verified Adverse Reaction, Unknown, cough, 10/11/16) Propoxyphene (Verified Adverse Reaction, Unknown, STOMACH UPSET DIARRHEA, 10/11/16) Current Medications Reported Home Medications Medications Dose Route/Sig Max Daily Dose Days Date Category Dose Instructions Spiriva Handihaler (Tiotropium [place]) 30 Puff/540 Mcg Aerp 2 Puffs INH DAILY 11/13/16 Reported Losartan Potassium 50 Mg Tab 50 Mg PO DAILY 11/13/16 Reported Jantoven (Warfarin Sodium) 2.5 Mg Tab 5 Mg PO DAILY 11/13/16 Reported TWO 2.5MG TABLETS DAILY OR DIRECTED. Nitrostat (Nitroglycerin) 0.4 Mg Sub 0.4 Mg UT PRN 11/13/16 Reported Prednisone 5 Mg Tab 7.5 Mg PO DAILY 11/13/16 Reported Combivent Respimat (Ipratropium-Albuterol) 1 Aer Aer 1 Puff PO QID 11/13/16 Reported Levalbuterol 1.25 Mg/0.5 Ml Nebu 1.25 Mg INH Q6R 10 10/17/16 Rx Novolog Flexpen (Insulin Aspart) 100 Units/Ml Inj 1 Dose SQ ACHS 10/11/16 Reported SLIDING SCALE. APPROX 10UNITS BID Ranitidine HCl 150 Mg Tab 1 Tab PO BID 10/11/16 Reported Fluticasone Propionate 120 Sprays/6000 Mcg Inha 2 Sprays ALDEN DAILY 10/11/16 Reported Duoneb (Ipratropium-Albuterol) 3 Ml Nebu 1 Treatment INH Q4H PRN 07/24/16 Reported Ambien (Zolpidem Tartrate) 5 Mg Tab 5 Mg PO HS PRN 05/14/16 Reported Levemir (Insulin Detemir) 100 Units/Ml Inj SQ UD 1/15/17 Reported 14 units in am and 8 units in pm Lasix (Furosemide) 20 Mg Tab 20 Mg PO DAILY 09/18/14 Reported Flomax (Tamsulosin Hcl) 0.4 Mg Cap 0.4 Mg PO HS 09/18/14 Reported Zocor (Simvastatin) 20 Mg Tab 20 Mg PO QPM 12/11/08 Reported take with supper Physical Physical Exam Vital Signs: Date Time Temp Pulse Resp B/P (MAP) Pulse Ox O2 Delivery O2 Flow Rate FiO2 11/14/16 12:10 36.6 114 16 93/60 (71) 93 Nasal Cannula 11/14/16 12:04 95 Nasal Cannula 2.0 11/14/16 08:47 97 Nasal Cannula 2.0 11/14/16 08:10 36.8 141 16 91/64 (73) 97 Room Air 11/14/16 04:10 37.0 140 19 116/73 (87) 98 Room Air 1.5 11/14/16 04:03 Room Air 11/14/16 00:00 Room Air 11/13/16 23:49 37.2 111 20 114/66 (82) 94 Room Air 11/13/16 20:00 Room Air 11/13/16 19:31 36.6 132 18 102/62 (75) 94 Room Air 11/13/16 16:00 Room Air 11/13/16 15:28 36.8 141 19 109/78 (88) 93 Room Air 11/13/16 14:46 110 11/13/16 14:36 36.4 18 105/70 Nasal Cannula 2.0 11/13/16 14:21 111 18 105/70 11/13/16 14:06 145 18 103/78 11/13/16 13:45 115 90/70 11/13/16 13:29 146 11/13/16 13:25 146 102/67 11/13/16 13:23 144 11/13/16 12:48 142 18 112/69 11/13/16 12:47 139 112/69 Gen.: Awake alert oriented 3, out of bed to chair, not in any acute respiratory distress. HEENT: Atraumatic, normocephalic, Eye exam consistent with cataract surgery, dentures on top and bottom, Mallampati grade 2 Neck: No lymphadenopathy CVS: S1-S2 irregularly irregular Chest: He good air entry bilaterally with fine inspiratory crackles bilaterally Abdomen: Soft, nontender,nondistended, bowel sounds positive Extremities 2+ bilateral pitting edema in lower extremities, no cyanosis, clubbing Neuro/psych no motor sensory deficits, awake alert oriented 3 Diagnostics Labs Results Past 24 Hours Test 11/13/16 14:56 11/13/16 16:19 11/13/16 20:21 11/13/16 23:50 Range/Units Urine Color YELLOW Urine Appearance CLEAR CLEAR Urine pH 5.5 4.5-7.5 Urine Specific Elysian 1.018 1.000-1.030 Urine Protein TRACE NEG Urine Glucose (UA) 3+ NEG Urine Ketones 1+ NEG Urine Occult Blood NEG NEG Urine Nitrite NEG NEG Urine Bilirubin NEG NEG Urine Urobilinogen NEG NEG Urine Leukocyte Esterase NEG NEG Urine WBC (Auto) 0 0-5 /hpf Urine RBC (Auto) 0-4 0-4 /hpf Urine Hyaline Casts (Auto) 0 0-5 /lpf Urine Epithelial Cells (Auto) 5-10 0-5 /lpf Urine Bacteria (Auto) NEG NEG Bedside Glucose 247 235 70-99 mg/dl Activated Partial Thromboplast Time 179.5 21.0-31.0 SECONDS Partial Thromboplastin Ratio 6.8 Test 11/14/16 01:22 11/14/16 01:47 11/14/16 01:51 11/14/16 06:17 Range/Units Bedside Glucose 45 95 167 70-99 mg/dl Activated Partial Thromboplast Time 97.7 21.0-31.0 SECONDS Partial Thromboplastin Ratio 3.8 Test 11/14/16 07:36 11/14/16 11:40 Range/Units White Blood Count 6.04 4.8-10.8 K/uL Red Blood Count 4.12 4.7-6.1 M/uL Hemoglobin 11.1 14.0-18.0 g/dL Hematocrit 35.7 42-52 % Mean Corpuscular Volume 86.7 80-100 fL Mean Corpuscular Hemoglobin 26.9 25-34 pg Mean Corpuscular Hemoglobin Concent 31.1 32-36 g/dl RDW Standard Deviation 44.3 36.4-46.3 fL RDW Coefficient of Variation 14.0 11.5-14.5 % Platelet Count 234 130-400 K/uL Mean Platelet Volume 8.9 7.4-10.4 fL Prothrombin Time 18.7 9.0-12.0 SECONDS Prothromb Time International Ratio 1.7 0.9-1.1 Activated Partial Thromboplast Time 81.5 21.0-31.0 SECONDS Partial Thromboplastin Ratio 3.1 Sodium Level 136 136-145 mmol/L Potassium Level 4.6 3.5-5.1 mmol/L Chloride Level 100 98-107 mmol/L Carbon Dioxide Level 30 21-32 mmol/L Anion Gap 6.0 3-11 mmol/L Blood Urea Nitrogen 39 7-18 mg/dl Creatinine 1.70 0.60-1.40 mg/dl Est Creatinine Clear Calc Drug Dose 39.3 ml/min Estimated GFR () 43.8 Estimated GFR (Non- 37.8 BUN/Creatinine Ratio 22.9 10-20 Random Glucose 182 70-99 mg/dl Calcium Level 8.7 8.5-10.1 mg/dl Magnesium Level 1.6 1.8-2.4 mg/dl Bedside Glucose 286 70-99 mg/dl Diagnostic Radiology Chest x-ray 11/13/2016 FINDINGS: Cardiac silhouette is again enlarged. There is mild background reticulation with enlargement of the pulmonary vasculature. Patchy bibasilar opacities are redemonstrated, mildly improved from comparison study. There is mild blunting of bilateral costophrenic angles. No pneumothorax or new large area of focal airspace consolidation is identified. There is atherosclerosis of the aorta. The bones appear grossly intact. IMPRESSION: 1. Cardiomegaly with mild pulmonary edema pattern. 2. Small pleural effusions. 3. Patchy bibasilar opacities suggest atelectasis/scarring with superimposed pneumonia thought to be less likely. Echocardiogram from 10/11/2016 shows left ventricle EF 50-55% right ventricle with TAPSE >1.5 cm, moderately dilated left atrium and right atrium. EKG EKG Atrial flutter with 2-1 AV conduction, left anterior fascicular block, nonspecific ST and T wave abnormalities, abnormal EKG. Impression Assessment and Plan A. fib with RVR COPD Interstitial lung disease Calcified pleural plaques Chronic pulmonary thromboemboli Nocturnal hypoxemia -Continue with supplemental oxygen as needed when necessary, but during the day to maintain an SaO2 above 92%. Use at night for sleeping. -Continue with home medications of prednisone, Xopenex, Combivent. -I would try a of Tensilon Perles as well as codeine for his cough -I offered patient Mucinex as well as flutter valve but he declined at this time. -Sputum culture -Can treat empirically with Levaquin for 1 week as he does have yellowish colored sputum. -Patient is already on heparim drip for A. fib which can also treat chronic pulmonary thromboembolic disease. -Can give a trial of Lasix to keep in negative balance. -Nutrition consult for added protein to diet. I appreciate the consult. Will continue to follow. Dr. Dr. Patrick is aware of patient's admission and will follow up with him as an outpatient.
[2016-11-14] MEDS ORDERED: BENZONATATE 100MG CAP PO ONE (13:30)
[2016-11-14] MEDS ORDERED: LEVOFLOXACIN / D5W 750 MG in PREMIXED IN D5W 150 ML IV SCH (14:00)
[2016-11-14] MEDS ORDERED: LEVOFLOXACIN CONSULT ACTIVE PRN (14:00)
[2016-11-14 15:11] LABS: PARTIAL THROMBOPLASTIN RATIO 2.6
[2016-11-14] MEDS ORDERED: WARFARIN SOD 2 MG TAB PO SCH (16:00)
[2016-11-14] MEDS: CODEINE SULFATE 30 MG TAB PO SCH ×2 (16:10→20:35)
[2016-11-14] MEDS ORDERED: WARFARIN SOD 5 MG TAB PO ONE ×2 (16:51→21:00)
[2016-11-14] MEDS: INSULIN DETEMIR FLEXPEN/FLEX TOUCH 100 UNITS/ML 3ML SC SCH (20:33)
[2016-11-14] MEDS: SIMVASTATIN 20 MG TAB PO SCH (20:36)
[2016-11-14] MEDS: BENZONATATE 100MG CAP PO SCH (20:37)
[2016-11-14] MEDS: TAMSULOSIN HCL 0.4 MG CAP PO SCH (20:37)
[2016-11-14] MEDS ORDERED: DIGOXIN IV 250 MCG in SYRINGE 9 ML IV ONE ×2 (21:45→23:00)
[2016-11-14 22:38] LABS: BUN/CREATININE RATIO 21.1 (10-20); CALCIUM 8.5 mg/dl (8.5-10.1); CREATININE 2.1 mg/dl (0.60-1.40); MAGNESIUM 2.1 mg/dl (1.8-2.4); POTASSIUM 4.9 mmol/L (3.5-5.1)
[2016-11-15] VITALS (11 sets, daily range): BP systolic 96–154; BP diastolic 59–80; PULSE 66–104; TEMP 36.5–36.7; O2SAT 94–98; Ht 182.9 cm; Wt 89.7 kg
[2016-11-15] MEDS ORDERED: METOPROLOL TARTRATE 25 MG TAB PO ONE (05:26)
[2016-11-15 07:14] LABS: HEMATOCRIT 32.6 % (42-52); MEAN CORPUSCULAR HEMOGLOBIN 28.5 pg (25-34); MEAN CORPUSCULAR HGB CONC 33.1 g/dl (32-36); MEAN PLATELET VOLUME 9.4 fL (7.4-10.4); PLATELET COUNT 223 K/uL (130-400); RED BLOOD COUNT 3.79 M/uL (4.7-6.1); WHITE BLOOD COUNT 5.63 K/uL (4.8-10.8)
[2016-11-15 07:26] LABS: PARTIAL THROMBOPLASTIN RATIO 2.6
[2016-11-15 07:36] LABS: BUN/CREATININE RATIO 21.6 (10-20); CALCIUM 8.5 mg/dl (8.5-10.1); CREATININE 1.9 mg/dl (0.60-1.40); POTASSIUM 4.8 mmol/L (3.5-5.1)
[2016-11-15] MEDS: ASPIRIN 81 MG ECTAB PO SCH (08:17)
[2016-11-15] MEDS: RANITIDINE HCL 150 MG TAB PO SCH ×2 (08:17→21:11)
[2016-11-15] MEDS: PANTOprazole SOD 40 MG TAB PO SCH (08:18)
[2016-11-15] MEDS: IPRATROPIUM BROMIDE/ALBUTEROL respimat INH INH SCH ×4 (08:21→21:08)
[2016-11-15] MEDS: BENZONATATE 100MG CAP PO SCH ×3 (08:22→21:11)
[2016-11-15] MEDS: CODEINE SULFATE 30 MG TAB PO SCH ×4 (08:25→21:08)
[2016-11-15] MEDS: INSULIN ASPART 100 UNITS/ML 3 ML PEN SC SCH ×4 (08:31→21:14)
[2016-11-15] MEDS: INSULIN DETEMIR FLEXPEN/FLEX TOUCH 100 UNITS/ML 3ML SC SCH ×2 (08:32→21:15)
[2016-11-15 08:39] LABS: INR 1.6 (0.9-1.1); PROTHROMBIN TIME (PATIENT) 17.5 SECONDS (9.0-12.0)
--- NOTE | 2016-11-15 09:24 | Progress Note ---
Subjective Date of Service: Nov 15, 2016. Subjective Pt evaluation today including: conversation w/ patient, physical exam, lab review, review of studies, review of inpatient medication list Saw/examined the patient in room 239 his HRs have been down into the 80s and 90s this morning Cough has improved and states he had a good night last night Denies any symptoms Problem List Medical Problems: (1) Atrial fibrillation with RVR Status: Acute (2) Atrial flutter with rapid ventricular response Status: Acute (3) Congestive heart failure Status: Acute (4) COPD exacerbation Status: Acute (5) COPD with exacerbation Status: Acute (6) Dyspnea Status: Acute (7) Pneumonia Status: Acute Review of Systems Constitutional: No fever, No chills Respiratory: + cough (improving), + sputum, No wheezing, No shortness of breath , No dyspnea on exertion, No dyspnea at rest Cardiac: No chest pain, No edema, No palpitations Abdomen: No pain, No nausea, No vomiting, No diarrhea Psychiatric: No depression symptoms Heme: No abnormal bleeding/bruising Medications Current Inpatient Medications Medications (Trade) Dose Ordered Sig/Bertha Route Start Time Stop Time Status Last Admin Dose Admin Acetaminophen (Tylenol Tab) 650 mg Q4H PRN PO 11/13/16 14:15 12/13/16 14:14 Al Hydrox/Mg Hydrox/Simethicone (Maalox Max Susp) 15 ml Q4H PRN PO 11/13/16 14:15 12/13/16 14:14 Magnesium Hydroxide (Milk Of Magnesia Susp) 30 ml Q12H PRN PO 11/13/16 14:15 12/13/16 14:14 Ondansetron HCl (Zofran Inj) 4 mg Q6H PRN IV 11/13/16 14:15 12/13/16 14:14 Aspirin (Ecotrin Tab) 81 mg QAM PO 11/14/16 09:00 12/14/16 08:59 11/15/16 08:17 81 MG Polyethylene (Miralax Powder Packet) 17 gm DAILY PRN PO 11/13/16 14:15 12/13/16 14:14 Insulin Aspart (novoLOG ASPART) SLIDING SCALE If C... ACHS SC 11/13/16 16:00 12/13/16 15:59 11/15/16 08:31 9 UNITS Glucose (Glucose 40% Gel) 15-30 GRAMS 15 GRAMS... UD PRN PO 11/13/16 14:15 12/13/16 14:14 Glucose (Glucose Chew Tab) 4-8 Tablets 4 Tabl... UD PRN PO 11/13/16 14:15 12/13/16 14:14 Dextrose (Dextrose 50% 50ML Syringe) 25-50ML OF 50% DW IV FOR... UD PRN IV 11/13/16 14:15 12/13/16 14:14 Glucagon (Glucagon Inj) 1 mg UD PRN SQ 11/13/16 14:15 12/13/16 14:14 Albuterol/ Ipratropium (Combivent Respimat Inh) 1 puffs QID INH 11/13/16 17:00 12/13/16 16:59 11/15/16 08:21 1 PUFFS Prednisone (PredniSONE TAB) 7.5 mg DAILY PO 11/14/16 09:00 12/14/16 08:59 11/15/16 08:19 7.5 MG Ranitidine HCl (zANTac TAB) 150 mg BID PO 11/13/16 21:00 12/13/16 20:59 11/15/16 08:17 150 MG Simvastatin (Zocor Tab) 20 mg QPM PO 11/13/16 21:00 12/13/16 20:59 11/14/16 20:36 20 MG Tamsulosin HCl (Flomax Cap) 0.4 mg HS PO 11/13/16 21:00 12/13/16 20:59 11/14/16 20:37 0.4 MG Tiotropium [place] (Spiriva Handihaler Inhaler) 1 puff DAILY INH 11/14/16 09:00 12/14/16 08:59 Future Hold 11/14/16 07:44 1 PUFF Warfarin Sodium (Coumadin Tab) 5 mg DAILY@1600 PO 11/13/16 16:00 12/13/16 15:59 Zolpidem Tartrate (Ambien Tab) 5 mg HS PRN PO 11/13/16 14:15 12/13/16 14:14 Pantoprazole Sodium (Protonix Tab) 40 mg QAM PO 11/14/16 09:00 12/14/16 08:59 11/15/16 08:18 40 MG Levalbuterol (Xopenex 0.63 Mg/ 3 Ml Neb) 0.63 mg Q6R PRN INH 11/13/16 14:15 12/13/16 14:14 Heparin Sodium (Porcine) 14488 unit/Dextrose 500 ml @ 22 mls/hr [id number] PRN IV 11/13/16 17:15 12/13/16 17:14 11/14/16 15:38 22 MLS/HR Insulin Detemir (Levemir Flexpen/ FlexTouch) 10 units Q12 SC 11/14/16 21:00 12/14/16 20:59 11/15/16 08:32 10 UNITS Benzonatate (Tessalon Perles Cap) 100 mg TID PO 11/14/16 21:00 12/14/16 20:59 11/15/16 08:22 100 MG Codeine Sulfate (Codeine Tab) 15 mg Q4HWA PO 11/14/16 16:00 11/28/16 15:59 11/15/16 08:25 15 MG Levofloxacin 750 mg/Prmx 150 ml @ 100 mls/hr Q48H IV 11/14/16 14:00 11/21/16 13:59 11/14/16 15:38 100 MLS/HR Levofloxacin (Consult) 1 ea UD PRN N/A 11/14/16 14:00 12/14/16 13:59 Metoprolol Tartrate (Lopressor Tab) 25 mg BID PO 11/15/16 21:00 12/13/16 21:59 Objective Vital Signs Date Time Temp Pulse Resp B/P (MAP) Pulse Ox O2 Delivery O2 Flow Rate FiO2 11/15/16 08:16 36.7 82 18 113/74 (87) 97 Nasal Cannula 2.0 11/15/16 04:00 98 Nasal Cannula 2.0 11/15/16 03:50 36.7 104 20 137/74 (95) 98 Nasal Cannula 2.0 11/15/16 00:00 95 Nasal Cannula 3.0 11/14/16 23:59 36.6 100 20 132/72 (92) 98 Nasal Cannula 2.0 11/14/16 23:34 95 11/14/16 23:20 118 11/14/16 21:50 142 11/14/16 20:00 Nasal Cannula 2.0 11/14/16 18:56 36.8 106 18 94/51 (65) 98 Nasal Cannula 1.5 11/14/16 16:00 Nasal Cannula 2.0 11/14/16 15:25 36.6 84 20 107/66 (80) 98 Nasal Cannula 1.5 11/14/16 12:10 36.6 114 16 93/60 (71) 93 Nasal Cannula 11/14/16 12:04 95 Nasal Cannula 2.0 Physical Exam General Appearance: no apparent distress Respiratory/Chest: no respiratory distress, no accessory muscle use, + rhonchi Cardiovascular: no murmur, + irregularly irregular Abdomen: normal bowel sounds, non tender, soft Extremities: normal inspection, no pedal edema Neurologic/Psychiatric: no motor/sensory deficits, alert, normal mood/affect Laboratory Results Last 24 Hours Test 11/14/16 11:40 11/14/16 14:44 11/14/16 16:34 11/14/16 20:16 Bedside Glucose 286 mg/dl 222 mg/dl 97 mg/dl Activated Partial Thromboplast Time 68.2 SECONDS Partial Thromboplastin Ratio 2.6 Test 11/14/16 21:41 11/14/16 22:53 11/15/16 06:39 11/15/16 06:51 Sodium Level 134 mmol/L 136 mmol/L Potassium Level 4.9 mmol/L 4.8 mmol/L Chloride Level 98 mmol/L 100 mmol/L Carbon Dioxide Level 31 mmol/L 33 mmol/L Anion Gap 5.0 mmol/L 3.0 mmol/L Blood Urea Nitrogen 44 mg/dl 41 mg/dl Creatinine 2.10 mg/dl 1.90 mg/dl Est Creatinine Clear Calc Drug Dose 31.8 ml/min 35.2 ml/min Estimated GFR () 33.9 38.3 Estimated GFR (Non- 29.3 33.0 BUN/Creatinine Ratio 21.1 21.6 Random Glucose 147 mg/dl 247 mg/dl Calcium Level 8.5 mg/dl 8.5 mg/dl Magnesium Level 2.1 mg/dl 2.0 mg/dl Lactic Acid Level 1.0 mmol/L White Blood Count 5.63 K/uL Red Blood Count 3.79 M/uL Hemoglobin 10.8 g/dL Hematocrit 32.6 % Mean Corpuscular Volume 86.0 fL Mean Corpuscular Hemoglobin 28.5 pg Mean Corpuscular Hemoglobin Concent 33.1 g/dl RDW Standard Deviation 43.2 fL RDW Coefficient of Variation 13.6 % Platelet Count 223 K/uL Mean Platelet Volume 9.4 fL Prothrombin Time 17.5 SECONDS Prothromb Time International Ratio 1.6 Activated Partial Thromboplast Time 68.5 SECONDS Partial Thromboplastin Ratio 2.6 Bedside Glucose 259 mg/dl Assessment and Plan This is a 76 year old male with a PMH of paroxysmal atrial fibrillation on Coumadin, COPD, interstitial lung disease, nocturnal hypoxemia, DM2 on insulin, CKD stage 3 presented for a bronchoscopy and found to have A. Fib with RVR A. Fib with RVR 11/15 was given IV digoxin last evening metoprolol 25mg BID HRs are improved down to 80s and 90s will need to monitor and adjust medications for rate control currently on IV heparin will give an extra dose of Coumadin (now started on abx; may interact and cause elevated INR) further management as per cardiology 11/14 HRs improved last evening to the 100-110s, but now back up to 140s cough is an exacerbating factor; will give one dose of Mucinex pulmonary consultation pending appreciate cardiology input Lopressor 25mg BID for HR control - issue now is the blood pressure is on the lower side may need Digoxin - will await cardiology input currently on IV heparin due to subtherapeutic INR continue Coumadin with goal INR of 2-3 11/13 patient states he was taking his medications as prescribed found to have HRs in the 140s given multiple doses of Cardizem and Lopressor Also given one dose of digoxin HRs did improve to the 110s during my exam he has no symptoms at this time continue Coumadin, INR of 1.8, slightly subtherapeutic monitor in tele and cardiology consulted for further input COPD and Interstitial Lung Disease patient with interstitial lung disease, supposed to have a bronchoscopy for further diagnosis and treatment but could not be performed he is taking chronic prednisone, should have this tapered down to prevent further A. Fib issues low dose Xopenex to prevent further tachycardia - only as needed will need O2 nocturnally, will attempt to wean in the daytime appreciate pulm input - started on Tessalon and Hycodan Levaquin started x1 week DM2 insulin dependent we can start with Lantus 10 units BID and a sliding scale monitor BSGs and adjust accordingly CKD stage 3 looking through records - baseline creat seems to be upper 1's currently 1.9 monitor and avoid nephrotoxic agents when able DVT ppx Coumadin FULL CODE
[2016-11-15] MEDS ORDERED: WARFARIN SOD 5 MG TAB PO ONE (09:30)
--- NOTE | 2016-11-15 11:25 | Cardiology Follow-Up ---
Subjective General Date of Service: Nov 15, 2016. Chief Complaint: afib RVR Pt evaluation today including: conversation w/ patient, physical exam, chart review, lab review, review of studies, review of inpatient medication list History of Present Illness Patient feeling fairly well this AM. Cough improving. SOB at baseline. no chest pain. No sense of palpitations or tachypalpitations. Denies dizziness. LE edema improved from admission. No orthopnea, PND. Allergies Coded Allergies: Diltiazem (Verified Allergy, Mild, RASH, 10/11/16) Aspirin (Verified Adverse Reaction, Mild, GI SYMPTOMS, 10/11/16) Lisinopril (Verified Adverse Reaction, Unknown, cough, 10/11/16) Propoxyphene (Verified Adverse Reaction, Unknown, STOMACH UPSET DIARRHEA, 10/11/16) Social History Smoking Status: Former Smoker Hx Tobacco Use In Past Year?: No Hx Alcohol Use - Type And Amou: No Hx Substance Use - Type And Am: No Problem List Medical Problems: (1) Atrial fibrillation with RVR Status: Acute (2) Atrial flutter with rapid ventricular response Status: Acute (3) Congestive heart failure Status: Acute (4) COPD exacerbation Status: Acute (5) COPD with exacerbation Status: Acute (6) Dyspnea Status: Acute (7) Pneumonia Status: Acute Review of Systems Respiratory: + cough, + dyspnea on exertion, No sputum, No wheezing, No dyspnea at rest Cardiac: + edema, No chest pain, No orthopnea, No PND, No palpitations Physical Exam Vital Signs Last Vital Signs Documentation Date Time Temp Pulse Resp B/P (MAP) Pulse Ox O2 Delivery O2 Flow Rate FiO2 11/15/16 08:16 36.7 82 18 113/74 (87) 97 Nasal Cannula 2.0 Physical Exam Constitutional: General Apperance: well-nourished Level of Distress: NAD, chronically ill Ambulation: ambulating normally Head: normocephalic ENMT: normal ENT inspection Neck: supple, trachea midline Lungs: Auscultation: expiratory wheezing, rhonchi Cardiovascular: Heart Auscultation: normal S1, normal S2, no murmurs, tachycardia, irregular rate rhythm Peripheral Pulses: Radial Pulse: normal on the right Abdomen: Bowel Sounds: normal Inspection & Palpation: soft, non-distended, no tenderness, guarding & rebound Musculoskeletal: normal Extremities: no cyanosis, no clubbing, no ulcers, edema (R>L) Neurologic: Gait & Station: pertinent finding (no focal motor deficit) Cranial Nerves: grossly intact Assessment and Plan Assessment and Plan 1. Paroxysmal atrial flutter with rapid ventricular response in 2-1 AV conduction. - Elevated heart rates driven by pulmonary status - IV Digoxin x 2 doses given yesterday with improvement in rates this AM. -Continue metoprolol 25 mg BID. Add digoxin, low dose 125 mcg - 3 days per week on // - INR subtherapeutic. Continue heparin to Coumadin. After 4 weeks of therapeutic INR, consider elective DCCV. -will need to monitor rates/rhythm closely as he has a history of sinus bradycardia. 2. Acute on chronic bilateral lower extremity edema secondary to rapid atrial flutter, diastolic dysfunction, and renal dysfunction -improving 3. HTN - controlled 4. Dyslipidemia 5. COPD - bronchoscopy on hold. Case discussed with Dr. Hall. Will follow. Cardiology Attending Physician: Patient seen and examined at the bedside. Feeling well today. Denies palpitations or chest discomfort. Heart rate has improved with addition of digoxin. Offers no complaints this time. PE: VSS. Gen: NAD, AAOx3. Heart Irregular, normal S1S2. no murmur. Lungs: clear B/L no rales, rhonchi, or wheeze. Ext: Plus 1 B/L pedal and ankle edema. A/P: Agree with above PAC history, physical exam, assessment and plan. Patient may be discharged from a cardiovascular perspective. He'll continue metoprolol and digoxin at current dosing. Follow-up with Dr. Carrillo as scheduled. He also continue Coumadin for goal INR of 2.0-3.0. He received an additional 5 mg dose of Coumadin this morning. Close follow-up with the anticoagulation clinic recommended. Teofilo Hall DO, [facility] Laboratory Results Last 24 Hours Test 11/14/16 11:40 11/14/16 14:44 11/14/16 16:34 11/14/16 20:16 Bedside Glucose 286 mg/dl 222 mg/dl 97 mg/dl Activated Partial Thromboplast Time 68.2 SECONDS Partial Thromboplastin Ratio 2.6 Test 11/14/16 21:41 11/14/16 22:53 11/15/16 06:39 11/15/16 06:51 Sodium Level 134 mmol/L 136 mmol/L Potassium Level 4.9 mmol/L 4.8 mmol/L Chloride Level 98 mmol/L 100 mmol/L Carbon Dioxide Level 31 mmol/L 33 mmol/L Anion Gap 5.0 mmol/L 3.0 mmol/L Blood Urea Nitrogen 44 mg/dl 41 mg/dl Creatinine 2.10 mg/dl 1.90 mg/dl Est Creatinine Clear Calc Drug Dose 31.8 ml/min 35.2 ml/min Estimated GFR () 33.9 38.3 Estimated GFR (Non- 29.3 33.0 BUN/Creatinine Ratio 21.1 21.6 Random Glucose 147 mg/dl 247 mg/dl Calcium Level 8.5 mg/dl 8.5 mg/dl Magnesium Level 2.1 mg/dl 2.0 mg/dl Lactic Acid Level 1.0 mmol/L White Blood Count 5.63 K/uL Red Blood Count 3.79 M/uL Hemoglobin 10.8 g/dL Hematocrit 32.6 % Mean Corpuscular Volume 86.0 fL Mean Corpuscular Hemoglobin 28.5 pg Mean Corpuscular Hemoglobin Concent 33.1 g/dl RDW Standard Deviation 43.2 fL RDW Coefficient of Variation 13.6 % Platelet Count 223 K/uL Mean Platelet Volume 9.4 fL Prothrombin Time 17.5 SECONDS Prothromb Time International Ratio 1.6 Activated Partial Thromboplast Time 68.5 SECONDS Partial Thromboplastin Ratio 2.6 Bedside Glucose 259 mg/dl
--- NOTE | 2016-11-15 11:56 | Pulmonology Progress Note ---
Pulmonary Progress Note Date of Service Nov 15, 2016. Attending Dr. Drew Subjective Patient seen and examined this morning. He currently denies any chest discomfort or pain, no shortness of breath, dyspnea on exertion or wheezing. He states that he didnt cough much last evening was able to rest while. He feels like everything is better. Objective Vital signs: Afebrile, blood pressure 113/67, pulse between 80-104, respiratory rate between 18-20, pulse ox between 95-98 on 2 L nasal cannula. He is currently 1300 L negative in the last 24 hours. With a cumulative balance of about 400 mL. General Appearance: Resting comfortably in bed, no acute distress Head: NORMOCEPHALIC, ATRAUMATIC Eyes: PERRLA, NO DISCHARGE, EOMI, SCLERAE NORMAL ENT: NORMAL MOUTH EXAM, NORMAL THROAT EXAM, other (Mallampati 3) Neck: NORMAL RANGE OF MOTION, NO TENDERNESS, TRACHEA MIDLINE, SUPPLE Respiratory: Good air entry bilaterally, with some sporadic wheezing more on the right than the left. Cardiovasular: Irregularly irregular rate and, NORMAL S1S2, NORMAL PERIPHERAL PULSES Abdomen: NON TENDER, NORMAL BOWEL SOUNDS Upper Extremities: NO EDEMA, no cyanosis no clubbing Lower Extremities: Trace edema bilaterally, with excoriations his sullivan Pulses: dorsalis pedis (R) (2+), dorsalis pedis (L) (2+) Neuro: ALERT, ORIENTED x 3 Psychiatric: NORMAL AFFECT, NO SUICIDAL IDEATION Medications, Laboratory data and imaging all reviewed. Respiratory medicationsTessalon Perles 100 mg 3 times a day by mouth, codeine 15 mg every 4 hours when awake by mouth, Levaquin 750 mg every 48 hours, Combivent 1 puff 4 times a day and Xopenex nebulizer every 6 hours when necessary. Creatinine has decreased from 2.1-1.9 today. Chest x-ray 11/13/2016 FINDINGS: Cardiac silhouette is again enlarged. There is mild background reticulation with enlargement of the pulmonary vasculature. Patchy bibasilar opacities are redemonstrated, mildly improved from comparison study. There is mild blunting of bilateral costophrenic angles. No pneumothorax or new large area of focal airspace consolidation is identified. There is atherosclerosis of the aorta. The bones appear grossly intact. IMPRESSION: 1. Cardiomegaly with mild pulmonary edema pattern. 2. Small pleural effusions. 3. Patchy bibasilar opacities suggest atelectasis/scarring with superimposed pneumonia thought to be less likely. Echocardiogram from 10/11/2016 shows left ventricle EF 50-55% right ventricle with TAPSE >1.5 cm, moderately dilated left atrium and right atrium. Assessment & Plan A. fib with RVR COPD Interstitial lung disease Calcified pleural plaques Chronic pulmonary thromboemboli Nocturnal hypoxemia Patient is feeling much improved today. Better rate controlled. With no episodes of coughing. -Continue with supplemental oxygen as needed when necessary, but during the day to maintain an SaO2 above 92%. Use at night for sleeping. -Continue with home medications of prednisone, Xopenex, Combivent. -Continue with Tensilon Perles as well as codeine for his cough as it appears to be helping -Follow-up Sputum culture -Continue empiric treatment with Levaquin for 1 week -Continue with Coumadin for A. fib and venous thromboembolic treatment and prophylaxis Data Medications: Current Inpatient Medications Medications (Trade) Dose Ordered Sig/Bertha Route Start Time Stop Time Status Last Admin Dose Admin Acetaminophen (Tylenol Tab) 650 mg Q4H PRN PO 11/13/16 14:15 12/13/16 14:14 Al Hydrox/Mg Hydrox/Simethicone (Maalox Max Susp) 15 ml Q4H PRN PO 11/13/16 14:15 12/13/16 14:14 Magnesium Hydroxide (Milk Of Magnesia Susp) 30 ml Q12H PRN PO 11/13/16 14:15 12/13/16 14:14 Ondansetron HCl (Zofran Inj) 4 mg Q6H PRN IV 11/13/16 14:15 12/13/16 14:14 Aspirin (Ecotrin Tab) 81 mg QAM PO 11/14/16 09:00 12/14/16 08:59 11/15/16 08:17 81 MG Polyethylene (Miralax Powder Packet) 17 gm DAILY PRN PO 11/13/16 14:15 12/13/16 14:14 Insulin Aspart (novoLOG ASPART) SLIDING SCALE If C... ACHS SC 11/13/16 16:00 12/13/16 15:59 11/15/16 08:31 9 UNITS Glucose (Glucose 40% Gel) 15-30 GRAMS 15 GRAMS... UD PRN PO 11/13/16 14:15 12/13/16 14:14 Glucose (Glucose Chew Tab) 4-8 Tablets 4 Tabl... UD PRN PO 11/13/16 14:15 12/13/16 14:14 Dextrose (Dextrose 50% 50ML Syringe) 25-50ML OF 50% DW IV FOR... UD PRN IV 11/13/16 14:15 12/13/16 14:14 Glucagon (Glucagon Inj) 1 mg UD PRN SQ 11/13/16 14:15 12/13/16 14:14 Albuterol/ Ipratropium (Combivent Respimat Inh) 1 puffs QID INH 11/13/16 17:00 12/13/16 16:59 11/15/16 08:21 1 PUFFS Prednisone (PredniSONE TAB) 7.5 mg DAILY PO 11/14/16 09:00 12/14/16 08:59 11/15/16 08:19 7.5 MG Ranitidine HCl (zANTac TAB) 150 mg BID PO 11/13/16 21:00 12/13/16 20:59 11/15/16 08:17 150 MG Simvastatin (Zocor Tab) 20 mg QPM PO 11/13/16 21:00 12/13/16 20:59 11/14/16 20:36 20 MG Tamsulosin HCl (Flomax Cap) 0.4 mg HS PO 11/13/16 21:00 12/13/16 20:59 11/14/16 20:37 0.4 MG Tiotropium [place] (Spiriva Handihaler Inhaler) 1 puff DAILY INH 11/14/16 09:00 12/14/16 08:59 Future Hold 11/14/16 07:44 1 PUFF Warfarin Sodium (Coumadin Tab) 5 mg DAILY@1600 PO 11/13/16 16:00 12/13/16 15:59 Zolpidem Tartrate (Ambien Tab) 5 mg HS PRN PO 11/13/16 14:15 12/13/16 14:14 Pantoprazole Sodium (Protonix Tab) 40 mg QAM PO 11/14/16 09:00 12/14/16 08:59 11/15/16 08:18 40 MG Levalbuterol (Xopenex 0.63 Mg/ 3 Ml Neb) 0.63 mg Q6R PRN INH 11/13/16 14:15 12/13/16 14:14 Heparin Sodium (Porcine) 33731 unit/Dextrose 500 ml @ 22 mls/hr [id number] PRN IV 11/13/16 17:15 12/13/16 17:14 11/14/16 15:38 22 MLS/HR Insulin Detemir (Levemir Flexpen/ FlexTouch) 10 units Q12 SC 11/14/16 21:00 12/14/16 20:59 11/15/16 08:32 10 UNITS Benzonatate (Tessalon Perles Cap) 100 mg TID PO 11/14/16 21:00 12/14/16 20:59 11/15/16 08:22 100 MG Codeine Sulfate (Codeine Tab) 15 mg Q4HWA PO 11/14/16 16:00 11/28/16 15:59 11/15/16 08:25 15 MG Levofloxacin 750 mg/Prmx 150 ml @ 100 mls/hr Q48H IV 11/14/16 14:00 11/21/16 13:59 11/14/16 15:38 100 MLS/HR Levofloxacin (Consult) 1 ea UD PRN N/A 11/14/16 14:00 12/14/16 13:59 Metoprolol Tartrate (Lopressor Tab) 25 mg BID PO 11/15/16 21:00 12/13/16 21:59 Digoxin (Lanoxin Tab) 0.125 mg UD PO 11/15/16 16:00 12/15/16 15:59 UNV Vital Signs: Date Time Temp Pulse Resp B/P (MAP) Pulse Ox O2 Delivery O2 Flow Rate FiO2 11/15/16 11:18 36.5 80 18 113/67 (82) 95 Room Air 11/15/16 08:16 36.7 82 18 113/74 (87) 97 Nasal Cannula 2.0 11/15/16 08:00 Nasal Cannula 2.0 11/15/16 04:00 98 Nasal Cannula 2.0 11/15/16 03:50 36.7 104 20 137/74 (95) 98 Nasal Cannula 2.0 11/15/16 00:00 95 Nasal Cannula 3.0 11/14/16 23:59 36.6 100 20 132/72 (92) 98 Nasal Cannula 2.0 11/14/16 23:34 95 11/14/16 23:20 118 11/14/16 21:50 142 11/14/16 20:00 Nasal Cannula 2.0 11/14/16 18:56 36.8 106 18 94/51 (65) 98 Nasal Cannula 1.5 11/14/16 16:00 Nasal Cannula 2.0 11/14/16 15:25 36.6 84 20 107/66 (80) 98 Nasal Cannula 1.5 11/14/16 12:10 36.6 114 16 93/60 (71) 93 Nasal Cannula 11/14/16 12:04 95 Nasal Cannula 2.0 Laboratory Results: Last 24 Hours Test 11/14/16 14:44 11/14/16 16:34 11/14/16 20:16 11/14/16 21:41 Activated Partial Thromboplast Time 68.2 SECONDS Partial Thromboplastin Ratio 2.6 Bedside Glucose 222 mg/dl 97 mg/dl Sodium Level 134 mmol/L Potassium Level 4.9 mmol/L Chloride Level 98 mmol/L Carbon Dioxide Level 31 mmol/L Anion Gap 5.0 mmol/L Blood Urea Nitrogen 44 mg/dl Creatinine 2.10 mg/dl Est Creatinine Clear Calc Drug Dose 31.8 ml/min Estimated GFR () 33.9 Estimated GFR (Non- 29.3 BUN/Creatinine Ratio 21.1 Random Glucose 147 mg/dl Calcium Level 8.5 mg/dl Magnesium Level 2.1 mg/dl Test 11/14/16 22:53 11/15/16 06:39 11/15/16 06:51 11/15/16 11:10 Lactic Acid Level 1.0 mmol/L White Blood Count 5.63 K/uL Red Blood Count 3.79 M/uL Hemoglobin 10.8 g/dL Hematocrit 32.6 % Mean Corpuscular Volume 86.0 fL Mean Corpuscular Hemoglobin 28.5 pg Mean Corpuscular Hemoglobin Concent 33.1 g/dl RDW Standard Deviation 43.2 fL RDW Coefficient of Variation 13.6 % Platelet Count 223 K/uL Mean Platelet Volume 9.4 fL Prothrombin Time 17.5 SECONDS Prothromb Time International Ratio 1.6 Activated Partial Thromboplast Time 68.5 SECONDS Partial Thromboplastin Ratio 2.6 Sodium Level 136 mmol/L Potassium Level 4.8 mmol/L Chloride Level 100 mmol/L Carbon Dioxide Level 33 mmol/L Anion Gap 3.0 mmol/L Blood Urea Nitrogen 41 mg/dl Creatinine 1.90 mg/dl Est Creatinine Clear Calc Drug Dose 35.2 ml/min Estimated GFR () 38.3 Estimated GFR (Non- 33.0 BUN/Creatinine Ratio 21.6 Random Glucose 247 mg/dl Calcium Level 8.5 mg/dl Magnesium Level 2.0 mg/dl Bedside Glucose 259 mg/dl 316 mg/dl
[2016-11-15] MEDS ORDERED: WARFARIN SOD 5 MG TAB PO SCH (16:00)
[2016-11-15] MEDS ORDERED: DIGOXIN 0.125 MG TAB PO SCH (16:00)
[2016-11-15] MEDS: WARFARIN SOD 5 MG TAB PO SCH (16:01)
[2016-11-15] MEDS: TAMSULOSIN HCL 0.4 MG CAP PO SCH (21:08)
[2016-11-15] MEDS: METOPROLOL TARTRATE 25 MG TAB PO SCH (21:10)
[2016-11-15] MEDS: SIMVASTATIN 20 MG TAB PO SCH (21:11)
[2016-11-16 03:59] VITALS: BP 134/63; PULSE 84; TEMP 36.6; O2SAT 98
[2016-11-16 06:33] LABS: HEMATOCRIT 33.3 % (42-52); MEAN CORPUSCULAR HEMOGLOBIN 27.9 pg (25-34); MEAN CORPUSCULAR HGB CONC 32.4 g/dl (32-36); MEAN PLATELET VOLUME 9.2 fL (7.4-10.4); PLATELET COUNT 227 K/uL (130-400); RED BLOOD COUNT 3.87 M/uL (4.7-6.1)
[2016-11-16 06:53] LABS: INR 3.1 (0.9-1.1); PARTIAL THROMBOPLASTIN RATIO 3.3; PROTHROMBIN TIME (PATIENT) 34.6 SECONDS (9.0-12.0)
[2016-11-16 07:13] LABS: BUN/CREATININE RATIO 21.9 (10-20); CALCIUM 8.9 mg/dl (8.5-10.1); CREATININE 1.6 mg/dl (0.60-1.40); POTASSIUM 4.6 mmol/L (3.5-5.1)
[2016-11-16 07:16] VITALS: BP 154/85; PULSE 82; TEMP 36.3; O2SAT 97
[2016-11-16] MEDS: ASPIRIN 81 MG ECTAB PO SCH (08:14)
[2016-11-16] MEDS: METOPROLOL TARTRATE 25 MG TAB PO SCH (08:14)
[2016-11-16] MEDS: PANTOprazole SOD 40 MG TAB PO SCH (08:15)
[2016-11-16] MEDS: RANITIDINE HCL 150 MG TAB PO SCH (08:15)
[2016-11-16] MEDS: BENZONATATE 100MG CAP PO SCH (08:16)
[2016-11-16] MEDS: IPRATROPIUM BROMIDE/ALBUTEROL respimat INH INH SCH (08:18)
[2016-11-16] MEDS: INSULIN ASPART 100 UNITS/ML 3 ML PEN SC SCH (08:23)
[2016-11-16] MEDS: INSULIN DETEMIR FLEXPEN/FLEX TOUCH 100 UNITS/ML 3ML SC SCH (08:24)
[2016-11-16] MEDS: CODEINE SULFATE 30 MG TAB PO SCH (08:26)
--- NOTE | 2016-11-16 09:10 | Progress Note ---
Subjective Date of Service: Nov 16, 2016. Subjective Pt evaluation today including: conversation w/ patient, physical exam, lab review, review of studies, review of inpatient medication list Saw/examined the patient in room 239 He's doing well, denies chest pain/palpitations States the cough has improved Denies shortness of breath Eager to go home Problem List Medical Problems: (1) Atrial fibrillation with RVR Status: Acute (2) Atrial flutter with rapid ventricular response Status: Acute (3) Congestive heart failure Status: Acute (4) COPD exacerbation Status: Acute (5) COPD with exacerbation Status: Acute (6) Dyspnea Status: Acute (7) Pneumonia Status: Acute Review of Systems Constitutional: No fever, No chills Respiratory: + cough (improved), No sputum, No shortness of breath Cardiac: No chest pain, No edema, No palpitations Abdomen: No pain, No nausea, No vomiting, No diarrhea Male : No dysuria Heme: No abnormal bleeding/bruising Medications Current Inpatient Medications Medications (Trade) Dose Ordered Sig/Bertha Route Start Time Stop Time Status Last Admin Dose Admin Acetaminophen (Tylenol Tab) 650 mg Q4H PRN PO 11/13/16 14:15 12/13/16 14:14 Al Hydrox/Mg Hydrox/Simethicone (Maalox Max Susp) 15 ml Q4H PRN PO 11/13/16 14:15 12/13/16 14:14 Magnesium Hydroxide (Milk Of Magnesia Susp) 30 ml Q12H PRN PO 11/13/16 14:15 12/13/16 14:14 Ondansetron HCl (Zofran Inj) 4 mg Q6H PRN IV 11/13/16 14:15 12/13/16 14:14 Aspirin (Ecotrin Tab) 81 mg QAM PO 11/14/16 09:00 12/14/16 08:59 11/16/16 08:14 81 MG Polyethylene (Miralax Powder Packet) 17 gm DAILY PRN PO 11/13/16 14:15 12/13/16 14:14 Insulin Aspart (novoLOG ASPART) SLIDING SCALE If C... ACHS SC 11/13/16 16:00 12/13/16 15:59 11/16/16 08:23 3 UNITS Glucose (Glucose 40% Gel) 15-30 GRAMS 15 GRAMS... UD PRN PO 11/13/16 14:15 12/13/16 14:14 Glucose (Glucose Chew Tab) 4-8 Tablets 4 Tabl... UD PRN PO 11/13/16 14:15 12/13/16 14:14 Dextrose (Dextrose 50% 50ML Syringe) 25-50ML OF 50% DW IV FOR... UD PRN IV 11/13/16 14:15 12/13/16 14:14 Glucagon (Glucagon Inj) 1 mg UD PRN SQ 11/13/16 14:15 12/13/16 14:14 Albuterol/ Ipratropium (Combivent Respimat Inh) 1 puffs QID INH 11/13/16 17:00 12/13/16 16:59 11/16/16 08:18 1 PUFFS Prednisone (PredniSONE TAB) 7.5 mg DAILY PO 11/14/16 09:00 12/14/16 08:59 11/16/16 08:16 7.5 MG Ranitidine HCl (zANTac TAB) 150 mg BID PO 11/13/16 21:00 12/13/16 20:59 11/16/16 08:15 150 MG Simvastatin (Zocor Tab) 20 mg QPM PO 11/13/16 21:00 12/13/16 20:59 11/15/16 21:11 20 MG Tamsulosin HCl (Flomax Cap) 0.4 mg HS PO 11/13/16 21:00 12/13/16 20:59 11/15/16 21:08 0.4 MG Tiotropium [place] (Spiriva Handihaler Inhaler) 1 puff DAILY INH 11/14/16 09:00 12/14/16 08:59 Future Hold 11/14/16 07:44 1 PUFF Warfarin Sodium (Coumadin Tab) 5 mg DAILY@1600 PO 11/13/16 16:00 12/13/16 15:59 11/15/16 16:01 5 MG Zolpidem Tartrate (Ambien Tab) 5 mg HS PRN PO 11/13/16 14:15 12/13/16 14:14 Pantoprazole Sodium (Protonix Tab) 40 mg QAM PO 11/14/16 09:00 12/14/16 08:59 11/16/16 08:15 40 MG Levalbuterol (Xopenex 0.63 Mg/ 3 Ml Neb) 0.63 mg Q6R PRN INH 11/13/16 14:15 12/13/16 14:14 Insulin Detemir (Levemir Flexpen/ FlexTouch) 10 units Q12 SC 11/14/16 21:00 12/14/16 20:59 11/16/16 08:24 10 UNITS Benzonatate (Tessalon Perles Cap) 100 mg TID PO 11/14/16 21:00 12/14/16 20:59 11/16/16 08:16 100 MG Codeine Sulfate (Codeine Tab) 15 mg Q4HWA PO 11/14/16 16:00 11/28/16 15:59 11/16/16 08:26 15 MG Levofloxacin 750 mg/Prmx 150 ml @ 100 mls/hr Q48H IV 11/14/16 14:00 11/21/16 13:59 11/14/16 15:38 100 MLS/HR Levofloxacin (Consult) 1 ea UD PRN N/A 11/14/16 14:00 12/14/16 13:59 Metoprolol Tartrate (Lopressor Tab) 25 mg BID PO 11/15/16 21:00 12/13/16 21:59 11/16/16 08:14 25 MG Digoxin (Lanoxin Tab) 0.125 mg MoWeFr@1600 PO 11/15/16 16:00 12/15/16 15:59 11/15/16 16:02 0.125 MG Objective Vital Signs Date Time Temp Pulse Resp B/P (MAP) Pulse Ox O2 Delivery O2 Flow Rate FiO2 11/16/16 07:16 36.3 82 18 154/85 (108) 97 Nasal Cannula 2.0 11/16/16 04:00 Room Air 2.0 Nasal Cannula 11/16/16 03:59 36.6 84 18 134/63 (86) 98 Nasal Cannula 2.0 11/16/16 00:00 Room Air 2.0 Nasal Cannula 11/15/16 23:46 36.5 89 18 154/72 (99) 98 Nasal Cannula 2.0 11/15/16 21:17 80 117/80 (92) 11/15/16 20:00 94 Room Air 11/15/16 18:50 36.6 95 22 96/59 (71) 94 Room Air 11/15/16 16:02 74 11/15/16 16:00 95 Room Air 11/15/16 15:35 36.5 66 20 122/77 (92) 97 Nasal Cannula 1.5 11/15/16 12:00 Room Air 94 11/15/16 11:18 36.5 80 18 113/67 (82) 95 Room Air Physical Exam General Appearance: no apparent distress Respiratory/Chest: chest non-tender, lungs clear, normal breath sounds, no respiratory distress, no accessory muscle use Cardiovascular: no edema, no murmur, + irregularly irregular Abdomen: normal bowel sounds, non tender, soft Extremities: normal inspection, no pedal edema Neurologic/Psychiatric: no motor/sensory deficits, alert, normal mood/affect Skin: normal color Lymphatic: no adenopathy Laboratory Results Last 24 Hours Test 11/15/16 11:10 11/15/16 16:10 11/15/16 20:01 11/16/16 06:14 Bedside Glucose 316 mg/dl 213 mg/dl 229 mg/dl White Blood Count 5.50 K/uL Red Blood Count 3.87 M/uL Hemoglobin 10.8 g/dL Hematocrit 33.3 % Mean Corpuscular Volume 86.0 fL Mean Corpuscular Hemoglobin 27.9 pg Mean Corpuscular Hemoglobin Concent 32.4 g/dl RDW Standard Deviation 42.9 fL RDW Coefficient of Variation 13.6 % Platelet Count 227 K/uL Mean Platelet Volume 9.2 fL Prothrombin Time 34.6 SECONDS Prothromb Time International Ratio 3.1 Activated Partial Thromboplast Time 85.4 SECONDS Partial Thromboplastin Ratio 3.3 Sodium Level 140 mmol/L Potassium Level 4.6 mmol/L Chloride Level 104 mmol/L Carbon Dioxide Level 35 mmol/L Anion Gap 1.0 mmol/L Blood Urea Nitrogen 35 mg/dl Creatinine 1.60 mg/dl Est Creatinine Clear Calc Drug Dose 41.8 ml/min Estimated GFR () 47.1 Estimated GFR (Non- 40.7 BUN/Creatinine Ratio 21.9 Random Glucose 99 mg/dl Calcium Level 8.9 mg/dl Magnesium Level 2.0 mg/dl Test 11/16/16 06:34 Bedside Glucose 90 mg/dl Assessment and Plan This is a 76 year old male with a PMH of paroxysmal atrial fibrillation on Coumadin, COPD, interstitial lung disease, nocturnal hypoxemia, DM2 on insulin, CKD stage 3 presented for a bronchoscopy and found to have A. Fib with RVR A. Fib with RVR 11/16 will d/c IV heparin today hold Coumadin for one day and resume in AM (11/17) will d/c on metoprolol 25mg BID, low dose digoxin - outpatient f/u with Coumadin clinic and cardiology 11/15 was given IV digoxin last evening metoprolol 25mg BID HRs are improved down to 80s and 90s will need to monitor and adjust medications for rate control currently on IV heparin will give an extra dose of Coumadin (now started on abx; may interact and cause elevated INR) further management as per cardiology 11/14 HRs improved last evening to the 100-110s, but now back up to 140s cough is an exacerbating factor; will give one dose of Mucinex pulmonary consultation pending appreciate cardiology input Lopressor 25mg BID for HR control - issue now is the blood pressure is on the lower side may need Digoxin - will await cardiology input currently on IV heparin due to subtherapeutic INR continue Coumadin with goal INR of 2-3 11/13 patient states he was taking his medications as prescribed found to have HRs in the 140s given multiple doses of Cardizem and Lopressor Also given one dose of digoxin HRs did improve to the 110s during my exam he has no symptoms at this time continue Coumadin, INR of 1.8, slightly subtherapeutic monitor in tele and cardiology consulted for further input COPD and Interstitial Lung Disease patient with interstitial lung disease, supposed to have a bronchoscopy for further diagnosis and treatment but could not be performed he is taking chronic prednisone, should have this tapered down to prevent further A. Fib issues low dose Xopenex to prevent further tachycardia - only as needed will need O2 nocturnally, will attempt to wean in the daytime appreciate pulm input - started on Tessalon and Hycodan Levaquin started x1 week DM2 insulin dependent we can start with Lantus 10 units BID and a sliding scale monitor BSGs and adjust accordingly CKD stage 3 looking through records - baseline creat seems to be upper 1's currently 1.9 monitor and avoid nephrotoxic agents when able DVT ppx Coumadin FULL CODE
[2016-11-16] MEDS ORDERED: LNX125 PO (09:19)
[2016-11-16] MEDS ORDERED: LEVO1TAB35 PO (09:19)
[2016-11-16] MEDS ORDERED: BENZ100C7 PO (09:19)
[2016-11-16] MEDS ORDERED: LPR25 PO (09:19)
[2016-11-16] MEDS ORDERED: ASPEC81 PO (09:19)
--- NOTE | 2016-11-16 09:33 | Discharge Instructions ---
Discharge Instructions Date of Service Nov 16, 2016. Admission Reason for Admission: Atrial Flutter With Rvr Discharge Discharge Diagnosis / Problem: Paroxysmal A. Flutter with RVR, COPD/ interstitial lung disease Discharge Goals Goal(s): Decrease discomfort, Improve function, Diagnostic testing, Therapeutic intervention Activity Recommendations Activity Limitations: resume your previous activity . Instructions / Follow-Up Instructions / Follow-Up Please follow-up with Dr. Monte on November 21 at 11:05AM Please follow-up with the Coumadin clinic early next week (November 20-November 21) Please follow-up with Dr. Carrillo, cardiology Please follow-up with Dr. Patrick, pulmonology, for outpatient bronchoscopy You should not taking Coumadin tonight (11/16) - restart as prescribed starting on 11/17 You are prescribed an antibiotic - take Levaquin 750mg every other day on 11/16, 11/18, 11/20 You will be prescribed Metoprolol 25mg - take this once in the morning and once in the evening to control your heart rate You will be prescribed digoxin 0.125mg - take this on Mondays, Wednesdays, and Fridays If you have any questions, please call your primary care physician Current Hospital Diet Patient's current hospital diet: AHA Diet (Heart Healthy), Diabetes Type 1 Diet , Low Potassium Diet (2g K) Discharge Diet Recommended Diet: AHA Diet (Heart Healthy), Diabetes Type 2 Diet, Low Potassium Diet (2g K) Pending Studies Studies pending at discharge: no Laboratory Results Hemoglobin A1c Test 10/12/16 04:45 Range/Units Estimated Average Glucose 200 mg/dl Hemoglobin A1c 8.6 H 4.5-5.6 % Medical Emergencies . Who to Call and When: Medical Emergencies: If at any time you feel your situation is an emergency, please call 911 immediately. . Non-Emergent Contact Non-Emergency issues call your: Primary Care Provider, Manager Of Sales . . "Provider Documentation" section prepared by Jan Maldonado. . VTE Core Measure Inpt VTE Proph given/why not?: Warfarin (Coumadin)
--- NOTE | 2016-11-16 09:36 | Discharge Summary ---
Discharge Summary Date of Service Nov 16, 2016. Discharge Summary Admission Date: Nov 13, 2016 at 14:17 Discharge Date: Nov 16, 2016 Discharge Disposition: Home Principal Diagnosis: You Lambert with RVR COPD Interstitial Lung Disease Medication Reconciliation New Medications: Levofloxacin (Levaquin) 750 Mg Tab 750 MG PO Q2D for 5 Days, #3 TAB Aspirin (Aspirin EC Low Dose) 81 Mg Ectab 81 MG PO QAM for 30 Days, #30 TABS Benzonatate (Benzonatate) 100 Mg Cap 100 MG PO TID for 5 Days, #15 CAP Digoxin (Digoxin) 0.125 Mg Tab 0.125 MG PO MoWeFr for 30 Days, #12 TAB Metoprolol Tartrate (Lopressor) 25 Mg Tab 25 MG PO BID for 30 Days, #60 TAB Continued Medications: Fluticasone Propionate (Fluticasone Propionate) 120 Sprays/6000 Mcg Inha 2 SPRAYS ALDEN DAILY, #16 Furosemide (Lasix) 20 Mg Tab 20 MG PO DAILY Insulin Aspart (Novolog Flexpen) 100 Units/Ml Inj 1 DOSE SQ ACHS SLIDING SCALE. APPROX 10UNITS BID Insulin Detemir (Levemir) 100 Units/Ml Inj SQ UD 14 units in am and 8 units in pm Ipratropium-Albuterol (Duoneb) 3 Ml Nebu 1 TREATMENT INH Q4H PRN for PRN, INHA Ipratropium-Albuterol (Combivent Respimat) 1 Aer Aer 1 PUFF PO QID Levalbuterol (Levalbuterol) 1.25 Mg/0.5 Ml Nebu 1.25 MG INH Q6R for 10 Days, #40 UNIT 2 Refills Losartan Potassium (Losartan Potassium) 50 Mg Tab 50 MG PO DAILY Nitroglycerin (Nitrostat) 0.4 Mg Sub 0.4 MG UT PRN Prednisone (Prednisone) 5 Mg Tab 7.5 MG PO DAILY Ranitidine HCl (Ranitidine HCl) 150 Mg Tab 1 TAB PO BID, #180 Simvastatin (Zocor) 20 Mg Tab 20 MG PO QPM, 0 Refills take with supper Tamsulosin Hcl (Flomax) 0.4 Mg Cap 0.4 MG PO HS Tiotropium Early (Spiriva Handihaler) 30 Puff/540 Mcg Aerp 2 PUFFS INH DAILY Warfarin Sod (Jantoven) 2.5 Mg Tab 5 MG PO DAILY TWO 2.5MG TABLETS DAILY OR DIRECTED. Zolpidem Tartrate (Ambien) 5 Mg Tab 5 MG PO HS PRN for INSOMNIA Admission Information HPI (per Admitting provider): This is a 76 year old male with a PMH of paroxysmal atrial fibrillation on Coumadin, COPD, interstitial lung disease, nocturnal hypoxemia, DM2 on insulin, CKD stage 3 - presented to [facility] for a bronchoscopy to evaluate his interstitial lung disease; has had biopsy in the past to evaluate for possible asbestosis exposure; states he has been requiring oxygen therapy throughout daytime (at baseline, only uses this nocturnally) -- was to get bronchoscopy but noted to have elevated HR and A. Fib with RVR. He was sent to the ER; HRs were in the 140s. States he was here last month with similar symptoms including COPD exacerbation and A. Fib with RVR. At that time, he was started on Coumadin and Metoprolol. Was given a few doses of Cardizem in the ER. Blood pressure had been on the lower side, so a dose of digoxin was also given after consulting with cardiology. I saw the patient in the ER and he has no complaints at this time; tells me that he does not have chest pain or palpitations. Breathing status is at baseline and tells me that his cough is slightly better than baseline. No other complaints at this time. Physical Exam (per Admitting): General Appearance: no apparent distress Head: normocephalic, atraumatic Eyes: normal inspection ENT: hearing grossly normal Respiratory/Chest: no respiratory distress, no accessory muscle use, + rhonchi (sonorous breath sounds) Cardiovascular: no murmur, + tachycardia, + irregularly irregular Abdomen/GI: normal bowel sounds, non tender, soft Extremities/Musculoskelatal: + pertinent finding (+1-2 pitting edema b/l LE) Neurologic/Psych: no motor/sensory deficits, alert, normal mood/affect Skin: normal color Lymphatic: no adenopathy Hospital Course This is a 76 year old male with a PMH of paroxysmal atrial fibrillation on Coumadin, COPD, interstitial lung disease, nocturnal hypoxemia, DM2 on insulin, CKD stage 3 presented for a bronchoscopy and found to have A. Fib with RVR A. Fib with RVR 11/16 will d/c IV heparin today hold Coumadin for one day and resume in AM (7/21) will d/c on metoprolol 25mg BID, low dose digoxin outpatient f/u with Coumadin clinic and cardiology 11/15 was given IV digoxin last evening metoprolol 25mg BID HRs are improved down to 80s and 90s will need to monitor and adjust medications for rate control currently on IV heparin will give an extra dose of Coumadin (now started on abx; may interact and cause elevated INR) further management as per cardiology 11/14 HRs improved last evening to the 100-110s, but now back up to 140s cough is an exacerbating factor; will give one dose of Mucinex pulmonary consultation pending appreciate cardiology input Lopressor 25mg BID for HR control - issue now is the blood pressure is on the lower side may need Digoxin - will await cardiology input currently on IV heparin due to subtherapeutic INR continue Coumadin with goal INR of 2-3 11/13 patient states he was taking his medications as prescribed found to have HRs in the 140s given multiple doses of Cardizem and Lopressor Also given one dose of digoxin HRs did improve to the 110s during my exam he has no symptoms at this time continue Coumadin, INR of 1.8, slightly subtherapeutic monitor in tele and cardiology consulted for further input COPD and Interstitial Lung Disease patient with interstitial lung disease, supposed to have a bronchoscopy for further diagnosis and treatment but could not be performed he is taking chronic prednisone, should have this tapered down to prevent further A. Fib issues low dose Xopenex to prevent further tachycardia - only as needed will need O2 nocturnally, will attempt to wean in the daytime appreciate pulm input - started on Tessalon and Hycodan Levaquin started x1 week DM2 insulin dependent we can start with Lantus 10 units BID and a sliding scale monitor BSGs and adjust accordingly CKD stage 3 looking through records - baseline creat seems to be upper 1's currently 1.9 monitor and avoid nephrotoxic agents when able DVT ppx Coumadin FULL CODE Total time spent on discharge = 50 minutes This includes examination of the patient, discharge planning, medication reconciliation, and communication with other providers. Discharge Instructions Please follow-up with Dr. Monte on November 21 at 11:05AM Please follow-up with the Coumadin clinic early next week (November 20-November 21) Please follow-up with Dr. Carrillo, cardiology Please follow-up with Dr. Patrick, pulmonology, for outpatient bronchoscopy You should not taking Coumadin tonight (11/16) - restart as prescribed starting on 11/17 You are prescribed an antibiotic - take Levaquin 750mg every other day on 11/16, 11/18, 11/20 You will be prescribed Metoprolol 25mg - take this once in the morning and once in the evening to control your heart rate You will be prescribed digoxin 0.125mg - take this on Mondays, Wednesdays, and Fridays If you have any questions, please call your primary care physician Additional Copies To Kg Monte M.D.
[2016-11-16 09:40] VITALS: BP 154/85; PULSE 82; TEMP 36.3; O2SAT 97
--- NOTE | 2016-11-16 09:50 | Cardiology Follow-Up ---
Subjective General Date of Service: Nov 16, 2016. Chief Complaint: afib RVR Pt evaluation today including: conversation w/ patient, physical exam, chart review, lab review, review of studies, review of inpatient medication list History of Present Illness Patient feeling well this AM. Anxious to be discharged this AM. Offers no acute complaints. Denies chest pain or worsening SOB. States cough improved. No sense of palpitations or tachypalpitations. No dizziness. Allergies Coded Allergies: Diltiazem (Verified Allergy, Mild, RASH, 10/11/16) Aspirin (Verified Adverse Reaction, Mild, GI SYMPTOMS, 10/11/16) Lisinopril (Verified Adverse Reaction, Unknown, cough, 10/11/16) Propoxyphene (Verified Adverse Reaction, Unknown, STOMACH UPSET DIARRHEA, 10/11/16) Social History Smoking Status: Former Smoker Hx Tobacco Use In Past Year?: No Hx Alcohol Use - Type And Amou: No Hx Substance Use - Type And Am: No Problem List Medical Problems: (1) Atrial fibrillation with RVR Status: Acute (2) Atrial flutter with rapid ventricular response Status: Acute (3) Congestive heart failure Status: Acute (4) COPD exacerbation Status: Acute (5) COPD with exacerbation Status: Acute (6) Dyspnea Status: Acute (7) Pneumonia Status: Acute Review of Systems Respiratory: + cough, + sputum, + dyspnea on exertion, No wheezing, No dyspnea at rest Cardiac: No chest pain, No orthopnea, No PND, No edema, No palpitations Physical Exam Vital Signs Last Vital Signs Documentation Date Time Temp Pulse Resp B/P (MAP) Pulse Ox O2 Delivery O2 Flow Rate FiO2 11/16/16 09:40 36.3 82 18 97 Room Air 11/16/16 07:16 154/85 (108) 2.0 11/15/16 12:00 94 Physical Exam Constitutional: General Apperance: well-nourished Level of Distress: NAD, chronically ill Ambulation: ambulating normally Head: normocephalic ENMT: normal ENT inspection Neck: supple, trachea midline Lungs: Auscultation: expiratory wheezing, rhonchi Cardiovascular: Heart Auscultation: normal S1, normal S2, no murmurs, irregular rate rhythm Peripheral Pulses: Radial Pulse: normal on the right Abdomen: Bowel Sounds: normal Inspection & Palpation: soft, non-distended, no tenderness, guarding & rebound Musculoskeletal: normal Extremities: no cyanosis, no clubbing, no ulcers, edema (R>L) Neurologic: Gait & Station: pertinent finding (no focal motor deficit) Cranial Nerves: grossly intact Assessment and Plan Assessment and Plan 1. Paroxysmal atrial flutter with rapid ventricular response in 2-1 AV conduction. - Elevated heart rates driven by pulmonary status -HR improved with metoprolol and digoxin therapy. Patient is asymptomatic. - INR 3 today. Off heparin. -will need to monitor rates/rhythm closely as he has a history of sinus bradycardia. 2. Acute on chronic bilateral lower extremity edema secondary to rapid atrial flutter, diastolic dysfunction, and renal dysfunction -improving 3. HTN - controlled 4. Dyslipidemia 5. COPD - bronchoscopy on hold. Stable cardiac signs/symptoms. Ok for discharge on metoprolol 25 mg BID and digoxin 125 mcg M/W/. Will need cardiology follow up with Dr. Carrillo in approx 2 weeks. Patient will be notified regarding this appointment. Consider outpatient DCCV in several weeks. Monitor INR with anticoagulation clinic. Case discussed with Dr. Hall. Laboratory Results Last 24 Hours Test 11/15/16 11:10 11/15/16 16:10 11/15/16 20:01 11/16/16 06:14 Bedside Glucose 316 mg/dl 213 mg/dl 229 mg/dl White Blood Count 5.50 K/uL Red Blood Count 3.87 M/uL Hemoglobin 10.8 g/dL Hematocrit 33.3 % Mean Corpuscular Volume 86.0 fL Mean Corpuscular Hemoglobin 27.9 pg Mean Corpuscular Hemoglobin Concent 32.4 g/dl RDW Standard Deviation 42.9 fL RDW Coefficient of Variation 13.6 % Platelet Count 227 K/uL Mean Platelet Volume 9.2 fL Prothrombin Time 34.6 SECONDS Prothromb Time International Ratio 3.1 Activated Partial Thromboplast Time 85.4 SECONDS Partial Thromboplastin Ratio 3.3 Sodium Level 140 mmol/L Potassium Level 4.6 mmol/L Chloride Level 104 mmol/L Carbon Dioxide Level 35 mmol/L Anion Gap 1.0 mmol/L Blood Urea Nitrogen 35 mg/dl Creatinine 1.60 mg/dl Est Creatinine Clear Calc Drug Dose 41.8 ml/min Estimated GFR () 47.1 Estimated GFR (Non- 40.7 BUN/Creatinine Ratio 21.9 Random Glucose 99 mg/dl Calcium Level 8.9 mg/dl Magnesium Level 2.0 mg/dl Test 11/16/16 06:34 Bedside Glucose 90 mg/dl
[2016-12-13] MEDS ORDERED: METO50TA16 PO (13:04)
== END 2016-11-16 10:10 | disposition home or self-care (01) | DRG 309 ==
LOC: EDBD 10:50 → EDSEX 10:50 → C.EDC 10:51 → C.2T 14:17 → ENRESERV 14:24
PROVIDERS: ADMIT Family Medicine; ATTEND Family Medicine
DX: I48.92 Unspecified atrial flutter (principal); I27.82 Chronic pulmonary embolism; J84.9 Interstitial pulmonary disease, unspecified; I48.0 Paroxysmal atrial fibrillation; J44.9 Chronic obstructive pulmonary disease, unspecified; R79.1 Abnormal coagulation profile; J92.0 Pleural plaque with presence of asbestos; I13.10 Hypertensive heart and chronic kidney disease without heart failure, with stage 1 through stage 4 chronic kidney disease, or unspecified chronic kidney disease; E11.22 Type 2 diabetes mellitus with diabetic chronic kidney disease; N18.3 Chronic kidney disease, stage 3 (moderate); I51.9 Heart disease, unspecified; E78.5 Hyperlipidemia, unspecified; R60.0 Localized edema; N40.0 Benign prostatic hyperplasia without lower urinary tract symptoms; G47.36 Sleep related hypoventilation in conditions classified elsewhere; Z91.19 Patient's noncompliance with other medical treatment and regimen; Z77.090 Contact with and (suspected) exposure to asbestos; Z87.01 Personal history of pneumonia (recurrent); Z99.81 Dependence on supplemental oxygen; Z87.891 Personal history of nicotine dependence; Z79.4 Long term (current) use of insulin; Z79.52 Long term (current) use of systemic steroids; Z79.01 Long term (current) use of anticoagulants; Z79.899 Other long term (current) drug therapy

== ENCOUNTER → 2016-11-13 | Day surgery (SDC) | payer BC, OTHER ==
[~2016-11-13] VITALS: Ht 182.9 cm; Wt 91.8 kg
[~2016-11-13] MED LIST changes: +ASPEC81 PO; -ASPI-435 PO; +ATRINSX NEB; +BENZ100C7 PO; +CEFD300C3 PO; +CHOL2000 PO; +CZR50 PO; +FINA5TAB4 PO; +FLNIN/ NAE; -FLUT0.0529 NAE; +GFNSR600 PO; +LEVO1TAB35 PO; +LNX125 PO; -LOSA1TAB38 PO; +LPR25 PO; +METO50TA16 PO; +NITR0.4S UT; -NVLGI SC; +NVLGI/PEN SQ; -OXYC-57 PO; +PRED-301 PO; +PRED10TA PO; +PRT/20 PO; +RANI150T2 PO; +SPRIN/30 INH; +TIOT1SPR INH; +ULT50 PO; -VITAMIN D PO; +WARF2.5T8 PO; +XPNINS1255 INH
[2016-11-13 08:50] VITALS: BP 142/94; PULSE 140; TEMP 36.7; O2SAT 93; Ht 182.9 cm; Wt 91.8 kg
--- NOTE | 2016-11-13 09:57 | History and Physical ---
History & Physical Date Nov 13, 2016. Chief Complaint Progressive Hypoxemia History of Present Illness The patient is a 76 year old male with complaints of progressive hypoxemia/SOB 6-year-old male here for post hospital follow-up and chronic interstitial lung disease: ILD: The patient has undergone surgical lung biopsy with pathology showing signs of chronic aspiration, chronic thromboembolisms and emphysema. Currently the patient's workup for aspiration is nondiagnostic but will send for speech pathology video swallow. As well the patient does signs of chronic thromboembolic disease on his pathology she as well as signs via V/Q study is currently anticoagulated with Coumadin. I have discussed with the patient's admitting his case down to [facility] and he has agreed, for their I LD board. COPD: Patient is currently using nebulizers Atrovent, Xopenex and albuterol as well as Combivent Respimat MDI and Dulera 200/5. At this time I will discontinue the albuterol nebulizer as the patient notes benefit with Xopenex and albuterol as well as decreased palpitations. I have reinforced the use of the Dulera. And Spiriva has been held secondary to increased urinary retention. Patient will be continually monitor yearly with pulmonary function studies. Video swallow 10/05/2016 No tracheal aspiration noted. Intact swallow mechanism V/Q scan V/Q scan 09/05/2016 Intermittent probability for pulmonary embolism Pulmonary function studies 07/06/2016 (based off ATS criteria) Spirometry: Moderately severe obstructive ventilatory disease, FEV1: 58% Bronchodilator: No significant response Lung volumes: Mildly decreased TLC 78% Diffusion capacity: Moderately decreased 76% corrected to alveolar volume of 101% Echocardiogram 10/11/2016 LV: EF=50-55%, RV: TAPSE >1.5cm LA: Moderately dilated RA: Mildly dilated Surgical lung biopsy 08/10/2016 (reviewed by Dr. Haynes at [facility]) RLL: combination of aspiration pneumonia and cigarette smoking. Vascular changes were most likely the result of small vessel thrombo-emboli He did not feel that asbestos was a significant issue in this patient. Microbiology Bronchial washing 10/21/2015: Aspergillus fumigatus, mycobacteria negative Expectorated sputum 09/08/2014: Aspergillus fumigatus Past Medical/Surgical History Medical Problems: (1) Asbestos exposure (2) BPH (benign prostatic hypertrophy) (3) CKD (chronic kidney disease) stage 3, GFR 30-59 ml/min (4) COPD (chronic obstructive pulmonary disease) (5) COPD exacerbation (6) Diabetes type I (7) Dyslipidemia (8) History of basal cell carcinoma (9) Hypertension (10) Paroxysmal atrial fibrillation (11) Pleural plaque (12) Rapid atrial fibrillation Surgical Problems: (1) H/O nasal polypectomy (2) History of inguinal hernia repair (3) History of surgery of head Additional History Hepatic Disease: No Endocrine Disorder: Yes Kidney Disease: No Hypertension: Yes Heart Disease: No Bleeding Tendencies: No Infectious Diseases: No Allergies Coded Allergies: Diltiazem (Verified Allergy, Mild, RASH, 10/11/16) Aspirin (Verified Adverse Reaction, Mild, GI SYMPTOMS, 10/11/16) Lisinopril (Verified Adverse Reaction, Unknown, cough, 10/11/16) Propoxyphene (Verified Adverse Reaction, Unknown, STOMACH UPSET DIARRHEA, 10/11/16) Home Medications Scheduled Cefdinir (Cefdinir), 300 MG PO BID Fluticasone Propionate (Fluticasone Propionate), 2 SPRAYS ALDEN DAILY Furosemide (Lasix), 20 MG PO Q2D Bsrzixqasmv-Yfcquhuyeiy-Wbx C- (Glucosamine Chondroitin), 1 TAB PO QAM Guaifenesin Ext Rel (Mucinex Ext Rel), 1,200 MG PO Q12 Insulin Aspart (Novolog Flexpen), 1 DOSE SQ ACHS Insulin Detemir (Levemir), SQ UD Levalbuterol (Levalbuterol), 1.25 MG INH Q6R Mometasone Furoate-Formoterol (Dulera 200/5 Mcg), 2 PUFFS INH BID Multivitamin (Multivitamin), 1 TAB PO QAM Prednisone Tab (Prednisone), 10 MG PO UD Ranitidine HCl (Ranitidine HCl), 1 TAB PO BID Simvastatin (Zocor), 20 MG PO QPM Tamsulosin Hcl (Flomax), 0.4 MG PO HS Scheduled PRN Acetaminophen (Tylenol), 1,000 MG PO DIRECTED PRN for Fever Ipratropium-Albuterol (Duoneb), 1 TREATMENT INH Q4H PRN for PRN Tramadol HCl (Tramadol HCl), 1 TAB PO TID PRN for Pain Zolpidem Tartrate (Ambien), 5-10 MG PO HS PRN for INSOMNIA Physical Examination Skin: warm/dry, no rash Eyes: normal inspection, EOMI ENT: normal ENT inspection Head: normocephalic Neck: supple, no adenopathy, trachea midline Respiratory/Chest: + pertinent finding (bilateral insp velcro rales) Cardiovascular: + abnormal rate, + abnormal rhythm Abdomen / GI: normal bowel sounds, non tender Back: normal inspection Extremities: + pertinent finding (2+ bilateral lower ext pitting edema) Genitourinary - Male: normal male genitalia Neurologic/Psych: no motor/sensory deficits, alert, oriented x 3 Diagnosis Poregressive Hypoxemia with known ILD of unknown etiology ASA Classification: ASA Class IV Plan of Treatment At this time we will hold off on the patient's bronchoscopy and contact his patch washer for A-fib with RVR
== END | disposition home or self-care (01) ==
LOC: C.ACU 08:28
PROVIDERS: ATTEND Internal Medicine Critical Care Medicine
DX: I48.92 Unspecified atrial flutter (principal); I44.4 Left anterior fascicular block; J44.9 Chronic obstructive pulmonary disease, unspecified; J84.9 Interstitial pulmonary disease, unspecified; E10.22 Type 1 diabetes mellitus with diabetic chronic kidney disease; N18.3 Chronic kidney disease, stage 3 (moderate); I12.9 Hypertensive chronic kidney disease with stage 1 through stage 4 chronic kidney disease, or unspecified chronic kidney disease; E78.5 Hyperlipidemia, unspecified; I48.0 Paroxysmal atrial fibrillation; N40.0 Benign prostatic hyperplasia without lower urinary tract symptoms; Z79.4 Long term (current) use of insulin; Z79.899 Other long term (current) drug therapy

== ENCOUNTER 2016-12-10 21:26 | Inpatient (IN) | payer BC, OTHER ==
[~2016-12-10] VITALS: Ht 182.9 cm; Wt 89.1 kg
[~2016-12-10 21:26] MED LIST changes: -ACET-1256 PO; +ASPEC81 PO; -ATRINSX NEB; +BENZ100C7 PO; -CEFD300C3 PO; -CHOL2000 PO; -CLC100 PO; +CZR50 PO; -GFNSR600 PO; -GLUCTAB7 PO; +IPRA1AER2 PO; +LNX125 PO; +LPR25 PO; -MOME200A INH; -MULT-506 PO; +NITR0.4S UT; +PRED-301 PO; -PRED10TA PO; -PRT/20 PO; +SPRIN/30 INH; -TIOT1SPR INH; -ULT50 PO; +WARF2.5T8 PO
[2016-12-10] MEDS ORDERED: SODIUM CHLORIDE 0.9% 1000ML 500 ML IV STA (22:00)
[2016-12-10 22:13] LABS: BASO % 0.2 %; BASO ABS # 0.02 K/uL (0-0.2); COMPLETE YES; EOS % 0.2 %; IG% 0.3 %; LYMPH % 15.7 %; MEAN CELL VOLUME 87.5 fL (80-100); MEAN CORPUSCULAR HEMOGLOBIN 27.5 pg (25-34); MEAN CORPUSCULAR HGB CONC 31.4 g/dl (32-36); MEAN PLATELET VOLUME 10.1 fL (7.4-10.4); MONO % 6.2 %; NEUT % 77.4 %; PLATELET COUNT 205 K/uL (130-400); WHITE BLOOD COUNT 8.91 K/uL (4.8-10.8)
[2016-12-10] MEDS ORDERED: FINA5TAB4 PO (22:13)
[2016-12-10] MEDS ORDERED: MOME200A INH (22:13)
[2016-12-10] MEDS ORDERED: WARF2.5T8 PO (22:13)
[2016-12-10 22:20] LABS: ALT/SGPT 34 U/L (12-78); BLOOD UREA NITROGEN 41 mg/dl (7-18); BUN/CREATININE RATIO 19.7 (10-20); CALCIUM 8.5 mg/dl (8.5-10.1); CARBON DIOXIDE 27 mmol/L (21-32); CHLORIDE 107 mmol/L (98-107); GLUCOSE 147 mg/dl (70-99); INR 1.4 (0.9-1.1); PARTIAL THROMBOPLASTIN RATIO 1.4; POTASSIUM 5.3 mmol/L (3.5-5.1); PROTHROMBIN TIME (PATIENT) 15.4 SECONDS (9.0-12.0); SODIUM 141 mmol/L (136-145)
--- NOTE | 2016-12-10 22:26 | DIAGNOSTIC IMAGING REPORT ---
CHEST ONE VIEW PORTABLE CLINICAL HISTORY: Altered mental status. Weakness. COMPARISON STUDY: Chest radiograph November 13, 2016. FINDINGS: Lung volumes are normal. There are multiple calcified pleural plaques. Bibasilar opacities suggest atelectasis. There is no consolidation to suggest pneumonia. Cardiomegaly is unchanged. Pulmonary vascularity is normal. No pneumothorax or pleural effusion is identified. IMPRESSION: No acute cardiopulmonary findings. No change in appearance of the chest. Electronically signed by: Akshat Calderon M.D. 12/10/2016 10:25 PM Dictated Date/Time: 12/10/2016 10:23 PM
[2016-12-10 22:31] LABS: ALKALINE PHOSPHATASE 88 U/L (45-117); AST/SGOT 28 U/L (15-37)
--- NOTE | 2016-12-10 22:36 | EMERGENCY ROOM VISIT NOTE ---
History Report prepared by Valentinoibkeri: Anthony Fernandez Under the Supervision of: Dr. Arturo Curran M.D. First contact with patient: 21:44 Chief Complaint: BRADYCARDIA Stated Complaint: HEART RATE BETWEEN 35-45 Nursing Triage Summary: PAtient states his heart rate is low. STates he takes medication for A-fib to lower his heart rate. Patient states he is "out of sync". Patient took pulse after taking medication this evenign and noted his heart rate to be in the 40s. History of Present Illness The patient is a 76 year old male who presents to the Emergency Room with complaints of worsening bradycardia that began around 1730. The patient states that he worked today and felt fine. He states that around 1730 he ate dinner, took his medication, then checked his pulse which showed a rate around 135. He states that he walked to calm himself down, since this typically works if his heart rate is elevated. The patient states that he checked his pulse following the walk, which was around 44, which is not normal. He reports that he was in the 30s [address] way to the ED. He states that his heart rate is usually in the 80s with medication, and usually rapid without medication. The patient admits that he has a history of atrial fibrillation, COPD, interstitial lung disease, GERD, and diabetes. He admits that he is on Coumadin. The patient admits to a history of lower extremity edema and reports that his "legs have been worse" previously. He denies shortness of breath, chest pain, weakness, dizziness, new medications, missing any medications, and any previous bradycardia instances. Source of History: patient Onset: 1729 Position: other (global) Quality: other (bradycardia) Timing: worsening Associated Symptoms: No chest pain, No SOB, No weakness Review of Systems See HPI for pertinent positives & negatives. A total of 10 systems reviewed and were otherwise negative. Past Medical & Surgical Medical Problems: (1) Asbestos exposure (2) BPH (benign prostatic hypertrophy) (3) CKD (chronic kidney disease) stage 3, GFR 30-59 ml/min (4) COPD (chronic obstructive pulmonary disease) (5) COPD exacerbation (6) Diabetes type I (7) Dyslipidemia (8) History of basal cell carcinoma (9) Hypertension (10) Paroxysmal atrial fibrillation (11) Pleural plaque (12) Rapid atrial fibrillation Surgical Problems: (1) H/O nasal polypectomy (2) History of inguinal hernia repair (3) History of surgery of head Family History Cancer MOTHER Diabetes mellitus BROTHER Gallbladder disease Heart disease Hypertension Kidney disease Kidney stones Social History Smoking Status: Former Smoker Alcohol Use: none Drug Use: none Marital Status: Housing Status: lives with significant other Occupation Status: retired Current/Historical Medications Scheduled Aspirin (Aspirin EC Low Dose), 81 MG PO QAM Digoxin (Digoxin), 0.125 MG PO MoWeFr Finasteride (Proscar), 5 MG PO DAILY Fluticasone Propionate (Fluticasone Propionate), 2 SPRAYS ALDEN DAILY Furosemide (Lasix), 20 MG PO DAILY Insulin Aspart (Novolog Flexpen), 1 DOSE SQ ACHS Insulin Detemir (Levemir), SQ UD Ipratropium-Albuterol (Combivent Respimat), 1 PUFF PO QID Levalbuterol (Levalbuterol), 1.25 MG INH Q6R Losartan Potassium (Losartan Potassium), 50 MG PO DAILY Metoprolol Tartrate (Lopressor), 25 MG PO BID Mometasone Furoate-Formoterol (Dulera 200/5 Mcg), 2 PUFFS INH BID Nitroglycerin (Nitrostat), 0.4 MG UT PRN Prednisone (Prednisone), 7.5 MG PO DAILY Ranitidine HCl (Ranitidine HCl), 1 TAB PO BID Simvastatin (Zocor), 20 MG PO QPM Tamsulosin Hcl (Flomax), 0.4 MG PO HS Tiotropium [place] (Spiriva Handihaler), 2 PUFFS INH DAILY Warfarin Sod (Jantoven), 1.25 MG PO DIRECTED Warfarin Sod (Jantoven), 2.5 MG PO DIRECTED Scheduled PRN Ipratropium-Albuterol (Duoneb), 1 TREATMENT INH Q4H PRN for PRN Zolpidem Tartrate (Ambien), 5 MG PO HS PRN for INSOMNIA Allergies Coded Allergies: Diltiazem (Verified Allergy, Mild, RASH, 10/11/16) Aspirin (Verified Adverse Reaction, Mild, GI SYMPTOMS, 10/11/16) Lisinopril (Verified Adverse Reaction, Unknown, cough, 10/11/16) Propoxyphene (Verified Adverse Reaction, Unknown, STOMACH UPSET DIARRHEA, 10/11/16) Physical Exam Vital Signs Date Time Temp Pulse Resp B/P (MAP) Pulse Ox O2 Delivery O2 Flow Rate FiO2 12/10/16 23:23 36 12/10/16 22:45 36 15 107/53 95 Room Air 12/10/16 22:44 41 12/10/16 22:05 95 Room Air 12/10/16 21:50 40 12/10/16 21:39 99 Room Air 12/10/16 21:29 36.4 42 19 129/67 100 Room Air Physical Exam GENERAL: Patient is in no acute distress. HEENT: No acute trauma, normocephalic atraumatic, mucous membranes moist, no nasal congestion, no scleral icterus. NECK: No stridor, no adenopathy, no meningismus, trachea is midline. LUNGS: Clear to auscultation bilaterally, no wheeze, no rhonchi, breath sounds equal. HEART: Bradycardic and slightly irregular. No murmurs. ABDOMEN: Soft, nontender, bowel sounds positive, no hernias, no peritonitis. EXTREMITIES: No cyanosis. Bilateral pitting edema worse on the right side, moderate in severity, no cellulitis, full range of motion of all the joints without pain or difficulty, no signs for acute trauma. NEUROLOGIC: Oriented x 3, no acute motor or sensory deficits, no focal weakness. SKIN: No rash, no jaundice, no diaphoresis. Medical Decision & Procedures ER Provider Diagnostic Interpretation: X-ray results as stated below per interpretation by me and the radiologist: CHEST ONE VIEW PORTABLE CLINICAL HISTORY: Altered mental status. Weakness. COMPARISON STUDY: Chest radiograph November 13, 2016. FINDINGS: Lung volumes are normal. There are multiple calcified pleural plaques. Bibasilar opacities suggest atelectasis. There is no consolidation to suggest pneumonia. Cardiomegaly is unchanged. Pulmonary vascularity is normal. No pneumothorax or pleural effusion is identified. IMPRESSION: No acute cardiopulmonary findings. No change in appearance of the chest. Electronically signed by: Akshat Calderon M.D. 12/10/2016 10:25 PM Dictated Date/Time: 12/10/2016 10:23 PM Laboratory Results 12/10/16 21:45 Red Blood Count 4.00, Mean Corpuscular Volume 87.5, Mean Corpuscular Hemoglobin 27.5, Mean Corpuscular Hemoglobin Concent 31.4, Mean Platelet Volume 10.1, Neutrophils (%) (Auto) 77.4, Lymphocytes (%) (Auto) 15.7, Monocytes (%) (Auto) 6.2, Eosinophils (%) (Auto) 0.2, Basophils (%) (Auto) 0.2, Neutrophils # (Auto) 6.89, Lymphocytes # (Auto) 1.40, Monocytes # (Auto) 0.55, Eosinophils # (Auto) 0.02, Basophils # (Auto) 0.02 12/10/16 21:45 Test 12/10/16 21:45 White Blood Count 8.91 K/uL (4.8-10.8) Red Blood Count 4.00 M/uL (4.7-6.1) Hemoglobin 11.0 g/dL (14.0-18.0) Hematocrit 35.0 % (42-52) Mean Corpuscular Volume 87.5 fL (80-100) Mean Corpuscular Hemoglobin 27.5 pg (25-34) Mean Corpuscular Hemoglobin Concent 31.4 g/dl (32-36) Platelet Count 205 K/uL (130-400) Mean Platelet Volume 10.1 fL (7.4-10.4) Neutrophils (%) (Auto) 77.4 % Lymphocytes (%) (Auto) 15.7 % Monocytes (%) (Auto) 6.2 % Eosinophils (%) (Auto) 0.2 % Basophils (%) (Auto) 0.2 % Neutrophils # (Auto) 6.89 K/uL (1.4-6.5) Lymphocytes # (Auto) 1.40 K/uL (1.2-3.4) Monocytes # (Auto) 0.55 K/uL (0.11-0.59) Eosinophils # (Auto) 0.02 K/uL (0-0.5) Basophils # (Auto) 0.02 K/uL (0-0.2) RDW Standard Deviation 46.9 fL (36.4-46.3) RDW Coefficient of Variation 14.7 % (11.5-14.5) Immature Granulocyte % (Auto) 0.3 % Immature Granulocyte # (Auto) 0.03 K/uL (0.00-0.02) Prothrombin Time 15.4 SECONDS (9.0-12.0) Prothromb Time International Ratio 1.4 (0.9-1.1) Activated Partial Thromboplast Time 36.6 SECONDS (21.0-31.0) Partial Thromboplastin Ratio 1.4 Anion Gap 7.0 mmol/L (3-11) Est Creatinine Clear Calc Drug Dose 31.8 ml/min Estimated GFR () 33.9 Estimated GFR (Non- 29.3 BUN/Creatinine Ratio 19.7 (10-20) Calcium Level 8.5 mg/dl (8.5-10.1) Magnesium Level 2.0 mg/dl (1.8-2.4) Total Bilirubin 0.3 mg/dl (0.2-1) Aspartate Amino Transf (AST/SGOT) 28 U/L (15-37) Alanine Aminotransferase (ALT/SGPT) 34 U/L (12-78) Alkaline Phosphatase 88 U/L (45-117) Troponin I < 0.015 ng/ml (0-0.045) Total Protein 6.3 gm/dl (6.4-8.2) Albumin 3.1 gm/dl (3.4-5.0) Globulin 3.2 gm/dl (2.5-4.0) Albumin/Globulin Ratio 1.0 (0.9-2) Thyroid Stimulating Hormone (TSH) 1.050 uIu/ml (0.300-4.500) Digoxin Level 0.5 ng/ml (0.8-2.0) Laboratory results reviewed by me. Medications Administered Medications (Trade) Dose Ordered Sig/Bertha Route Start Time Stop Time Status Last Admin Dose Admin Sodium Chloride 500 ml @ 999 mls/hr Q31M STAT IV 12/10/16 22:00 12/10/16 22:30 DC 12/10/16 22:00 999 MLS/HR Sodium Chloride 1,000 ml @ 125 mls/hr Q8H STAT IV 12/10/16 22:54 12/11/16 06:53 12/10/16 23:23 125 MLS/HR ECG Indication: bradycardia Rate (beats per minute): 47 Rhythm: sinus bradycardia, sinus with SA Findings: nonspecific-ST abn, no acute ischemic change ED Course 0: Sodium Chloride 500 ml @ 999 mls/hr IV. 2207: The patient was evaluated in room B02. A complete history and physical exam was performed. 1: I reevaluated the patient and he is resting comfortably. I discussed the results and treatment plan. He agrees to be further evaluated. 2253: Sodium Chloride 1000 ml @ 125 mls/hr IV. 2254: I discussed the patient's case with [facility]. He advises to hold his medication and if the problem persists he may need a pacemaker. 2299: I discussed the patient's case with [facility] He understands the patient's condition and agrees to accept the patient. The patient will be further evaluated. Medical Decision The patient is a 76 year old male who presents to the ED with complaints of worsening bradycardia that began around 1730. Differential diagnoses considered include Medication reaction, digoxin toxicity, electrolyte imbalance , tachy-macy syndrome, anemia, dehydration, and MA. There is no leukocytosis or concerning anemia. Renal panel testing shows some mild acute renal failure. Potassium mildly elevated. No hepatitis. INR was subtherapeutic for someone using Coumadin. EKG showed a sinus bradycardia with some sinus arrhythmia. Cardiac enzyme testing 1 is not consistent with acute cardiac injury. Chest film does not show pneumonia or CHF. Digoxin level was nontoxic. The patient appears to be in a euthyroid state. The patient received IV saline, his heart rate has been in the upper 30s and 40s. He is asymptomatic though with the lower rate. I discussed the case with cardiology. Admission/observation was recommended. I did speak to case management and the on-call hospitalist. The patient is aware of all his findings. The reason for the bradycardia is not currently clear. Medication Reconcilliation Current Medication List: was personally reviewed by me Blood Pressure Screening Patient's blood pressure: Elevated blood pressure Blood pressure disposition: Elevated BP felt to be situational Consults Time Called: 2254 Consulting Physician: [facility] Returned Call: 2254 I discussed the patient's case with [facility]. He advises to hold his medication and if the problem persists he may need a pacemaker. Additional Consults: Time Called: 2299 Consulted Physician: [facility] Returned Call: [phone] Additional Comments: I discussed the patient's case with [facility] He understands the patient's condition and agrees to accept the patient. The patient will be further evaluated. Impression Primary Impression: Bradycardia Additional Impression: Renal failure Scribe Attestation The scribe's documentation has been prepared under my direction and personally reviewed by me in its entirety. I confirm that the note above accurately reflects all work, treatment, procedures, and medical decision making performed by me. Departure Information Dispostion Being Evaluated By Hospitalist Referrals Kg Monte M.D. (PCP) Patient Instructions My [facility] Problem Qualifiers
[2016-12-10] MEDS ORDERED: SODIUM CHLORIDE 0.9% 1000ML 1,000 ML IV STA (22:54)
[2016-12-10] MEDS: SODIUM CHLORIDE 0.9% 1000ML 1,000 ML IV SCH (23:41)
[2016-12-10] MEDS ORDERED: NITROGLYCERIN 0.4 MG SL PER TAB CHARGE UT SCH (23:45)
[2016-12-10] MEDS ORDERED: ZOLPIDEM TARTRATE 5 MG TAB PO PRN (23:45)
[2016-12-10] MEDS ORDERED: ALBUT/IPRATROP 3MG/0.5MG NEB 3 ML VIAL INH PRN (23:45)
[2016-12-10] MEDS ORDERED: ONDANSETRON INJ 2 MG/ML 2 ML VIAL IV PRN (23:45)
[2016-12-10] MEDS ORDERED: HEPARIN 25000 UNIT/500 ML D5W ONE (23:50)
[2016-12-11] VITALS (11 sets, daily range): BP systolic 157–182; BP diastolic 74–84; PULSE 40–74; TEMP 36.5–37; O2SAT 93–99; BMI 27.2
[2016-12-11] MEDS ORDERED: HEPARIN IV LOW DOSE NO BOLUS SCH (00:16)
[2016-12-11] MEDS ORDERED: HEPARIN 25,000 UNIT/500ML D5W 500 ML IV PRN (00:45)
[2016-12-11] MEDS: LEVALBUTEROL 1.25MG/0.5ML NEB INH SCH ×4 (01:11→19:13)
--- NOTE | 2016-12-11 02:16 | HISTORY & PHYSICAL EXAMINATION ---
DATE OF ADMISSION: 12/10/2016 PRIMARY CARE PHYSICIAN: Dr. Monte. CHIEF COMPLAINT: Bradyarrhythmia noted since 5:30 p.m. HISTORY OF PRESENT COMPLAINT: He is a 76-year-old male with significant past medical history, including diabetes type 1, COPD, chronic kidney disease, atrial fibrillation, hyperlipidemia, hypertension, obstructive uropathy; apparently, has noted to have bradycardia from around 5:30 p.m. today. He has an oximeter to see saturation and also pulse rate at home. He had his supper at around 5:00 p.m. and then, he checked his pulse rate, it was 135. It was not that high, according to him. He went out for a walk and at around 5:30, he noted that the oximeter is reading a heart rate of 44. He did not have any symptoms whatsoever. From that point, he came to the Emergency Room for further evaluation. No fever, no chills, or rigors. No cough or phlegm. No chest pain, no palpitation. No abdominal pain, nausea or vomiting. No increasing swelling of the legs and no numbness or tingling in the extremities. In the ER, he was noted to have bradycardia around 47 and his blood work came out to be unremarkable, except he looked a little bit dry and his INR was 1.4. From that point, he was admitted to telemetry unit for continuation of care. PAST MEDICAL HISTORY: Significant for type 1 diabetes with renal manifestation, COPD, atrial fibrillation, hypertension, hyperlipidemia, obstructive uropathy and tobacco abuse disorder. PAST SURGICAL HISTORY: Significant for left temporoparietal surgery, that was for a benign reason, punch biopsy of the prostate, nasal polyp removal, inguinal hernia repair at the age of 3. FAMILY HISTORY: Mother of unknown cancer, father did have some esophageal ulcers, uncle had a stroke. SOCIAL HISTORY: He is . He has 4 children and lives with his . He smoked 2 packs per day for 40 years and quit in 1995. He uses alcohol socially. ALLERGIES: DILTIAZEM, ASPIRIN, LISINOPRIL AND PROPOXYPHENE. MEDICATIONS: As an outpatient, he has been on digoxin 0.125 mg daily, furosemide 20 mg daily, Lopressor 25 mg twice daily, aspirin 81 mg daily, Proscar 5 mg daily, Flonase 2 sprays each nostril daily, NovoLog FlexPen as directed, Levemir 14 units in the morning and 18 units in the afternoon, Combivent 1 puff q.i.d., DuoNebs 3 mL every 4 hours as needed, losartan potassium 50 mg daily, Dulera 2 puffs b.i.d., nitroglycerin as directed, prednisone 7.5 mg daily, ranitidine 150 mg b.i.d., simvastatin 20 mg daily, Flomax 0.4 mg daily, Spiriva HandiHaler 2 puffs daily, warfarin sodium as directed 2.5 mg and zolpidem 5 mg daily. REVIEW OF SYSTEMS: All other system review unremarkable, except for those mentioned in history of present complaint. PHYSICAL EXAMINATION: GENERAL: On examination in the Emergency Room, he was not having any acute distress. VITAL SIGNS: Temperature 36.4, pulse of 42, blood pressure of 107/53, saturation 95% on room air. HEENT: Unremarkable. NECK: Supple, no JVD, no bruit. CHEST: Decreased breath sounds, but no wheezing and/or crackles. HEART: S1, S2 regular with a 2/6 systolic murmur. ABDOMEN: Soft, benign, nontender, no organomegaly. EXTREMITIES: 1+ edema bilaterally, seems to be chronic. MUSCULOSKELETAL: No acute arthritis in any joint. CENTRAL NERVOUS SYSTEM: He was alert, awake, oriented x3. No focal sensory and/or motor deficit appreciated. LABORATORY DATA: Noted today, white count was 8.9, H&H 11.0/35.0, platelet was 205. Chemistry: Sodium 141, potassium 5.3, chloride 107, carbon dioxide 27, BUN 41, creatinine 2.10, the random glucose 147. LFTs are normal. Troponin less than 0.015. Albumin 3.1, TSH is 1.050. INR was 1.4, PTT ratio 1.4. Digoxin level was 0.5. His creatinine was 1.6 in October. Chest x-ray, no acute cardiopulmonary findings and EKG was in sinus bradycardia, rate around 37, nonspecific ST-T wave changes. IMPRESSION AND PLAN: 1. Bradyarrhythmia. The patient may have tachybrady syndrome with a history of atrial fibrillation. He will be admitted to telemetry unit. We will hold his beta-chiquita and digoxin. We will put the external pacer by the bedside. A cardiology evaluation will be done and he may need a pacemaker. 2. Atrial fibrillation with history of rapid ventricular response, now in bradycardia. We will continue with the blood pressure medications, but hold up any medicine that can decrease the heart rate. We will make sure there is no acute coronary syndrome by doing serial cardiac enzymes. 3. Diabetes with nephropathy. We will continue with his usual diabetic insulin and check blood sugars before meals and at bedtime. We will check his hemoglobin A1c during this admission, as well. 4. Chronic obstructive pulmonary disease. No signs of exacerbation. Continue with current medications. 5. Hypertension. Continue medications, except beta-chiquita. 6. Hyperlipidemia. Continue the statin. 7. Gastrointestinal prophylaxis with ranitidine. 8. Deep venous thrombosis prophylaxis. We will put him on heparin, because his INR is 1.4 and he has a high risk of developing clots. The case was discussed with him. CODE STATUS: He will be full code. In my clinical assessment, the beneficiary meets criteria as per CMS for 2 midnight stay in the hospital. ALBERT
[2016-12-11 06:39] LABS: HEMATOCRIT 31.1 % (42-52); MEAN CELL VOLUME 87.9 fL (80-100); MEAN CORPUSCULAR HGB CONC 31.8 g/dl (32-36); MEAN PLATELET VOLUME 10.7 fL (7.4-10.4); PLATELET COUNT 167 K/uL (130-400); RED BLOOD COUNT 3.54 M/uL (4.7-6.1); WHITE BLOOD COUNT 6.81 K/uL (4.8-10.8)
[2016-12-11 06:58] LABS: INR 1.5 (0.9-1.1); PARTIAL THROMBOPLASTIN RATIO 3.7; PROTHROMBIN TIME (PATIENT) 16.2 SECONDS (9.0-12.0)
[2016-12-11 07:13] LABS: BUN/CREATININE RATIO 22.1 (10-20); CREATININE 1.8 mg/dl (0.60-1.40); MAGNESIUM 2.1 mg/dl (1.8-2.4)
[2016-12-11 07:20] LABS: CKMB/CK RATIO 4.8 (0-3.0)
[2016-12-11] MEDS: DULERA~ORDER AWAITING ACTION SCH ×3 (07:35→21:00)
[2016-12-11] MEDS: INSULIN ASPART 100 UNITS/ML 3 ML PEN SQ SCH ×4 (07:43→20:58)
[2016-12-11] MEDS: INSULIN DETEMIR FLEXPEN/FLEX TOUCH 100 UNITS/ML 3ML SC SCH ×2 (07:44→20:59)
[2016-12-11] MEDS: RANITIDINE HCL 150 MG TAB PO SCH ×2 (07:45→19:58)
[2016-12-11] MEDS: FLUTICASONE PROPIONATE NA SPR 16 GM BTL NAE SCH (07:45)
[2016-12-11] MEDS: FINASTERIDE 5 MG TAB PO SCH (07:46)
[2016-12-11] MEDS: TIOTROPIUM BROMIDE 5 PUFF/90 MCG INH INH SCH (07:47)
[2016-12-11] MEDS: ASPIRIN 81 MG ECTAB PO SCH (07:47)
[2016-12-11] MEDS: IPRATROPIUM BROMIDE/ALBUTEROL respimat INH INH SCH ×4 (07:49→19:58)
[2016-12-11] MEDS: SODIUM CHLORIDE 0.9% 1000ML 1,000 ML IV SCH ×2 (07:50→15:58)
[2016-12-11] MEDS: LOSARTAN POTASSIUM 50 MG TAB PO SCH (09:00)
--- NOTE | 2016-12-11 09:53 | Cardiology Consultation ---
Cardiology Consultation Requesting Physician: Dr. Kenyon Attending Accounts Receivable Accountant: Dr. Teofilo Hall History of Present Illness Patient is a 76 year old male seen for evaluation of bradycardia. Patient recently evaluated in September regarding atrial flutter with rapid ventricular response. That time metoprolol was titrated and digoxin added to patient's medications. He subsequently followed up with his outpatient fashion model, Dr. Carrillo, on November 21. That time his heart rate was noted to be 110 eats per minute. Over the weekend patient noted average heart rates in the 80s which intermittently became tachycardic. There were no associated symptoms. He then abruptly noted his heart rate dropped to 44 bpm. Again, there was no associated symptoms. Due to abrupt change in heart rate he came to the emergency department for further evaluation. ECG confirmed sinus bradycardia. His minimum heart rate overnight was 33 bpm during sleep. Metoprolol and digoxin had been placed on hold. INR is subtherapeutic and intravenous heparin has been initiated. Patient currently resting comfortably. His is present at bedside. He offers no complaints. He did consume his a.m. meal. Past Medical/Surgical History Problem List: Medical Problems: (1) Asbestos exposure (2) Atrial fibrillation with slow ventricular response (3) BPH (benign prostatic hypertrophy) (4) Bradyarrhythmia (5) CKD (chronic kidney disease) stage 3, GFR 30-59 ml/min (6) COPD (chronic obstructive pulmonary disease) (7) COPD exacerbation (8) Diabetes type I (9) Dyslipidemia (10) History of basal cell carcinoma (11) Hypertension (12) Paroxysmal atrial fibrillation (13) Pleural plaque (14) Rapid atrial fibrillation Surgical Problems: (1) H/O nasal polypectomy (2) History of inguinal hernia repair (3) History of surgery of head Family History Cancer MOTHER Diabetes mellitus BROTHER Gallbladder disease Heart disease Hypertension Kidney disease Kidney stones Social History Smoking Status: Former Smoker Drug Use: none Marital Status: Housing Status: lives with family Occupation: retired Review Of Systems General: The patient denies weight change, night sweats, fever, chills. Head: The patient denies headache and prior head trauma. Cardiovascular: The patient denies chest pain or chest discomfort, dyspnea on exertion, palpitations, PND, orthopnea, edema, spontaneous shortness of breath, syncope and near syncope. Pulmonary: The patient denies cough, wheeze, pleurisy, hemoptysis, sputum, and excessive snoring. Gastrointestinal: The patient denies nausea, vomiting, diarrhea, constipation, bloating, hematemesis, hematochezia, and abdominal pain. Skin: The patient denies diaphoresis and rash. Musculoskeletal: The patient denies joint pain, joint swelling, myalgia, back pain, neck pain and prior injuries. Neurological: The patient denies prior stroke and seizures Allergies Coded Allergies: Diltiazem (Verified Allergy, Mild, RASH, 10/11/16) Aspirin (Verified Adverse Reaction, Mild, GI SYMPTOMS, 10/11/16) Lisinopril (Verified Adverse Reaction, Unknown, cough, 10/11/16) Propoxyphene (Verified Adverse Reaction, Unknown, STOMACH UPSET DIARRHEA, 10/11/16) Medications Reported Home Medications Medications Dose Route/Sig Max Daily Dose Days Date Category Dose Instructions Proscar (Finasteride) 5 Mg Tab 5 Mg PO DAILY 12/10/16 Reported Dulera 200/5 Mcg (Mometasone Furoate-Formoterol) 1 Aer Aer 2 Puffs INH BID 30 12/10/16 Reported Jantoven (Warfarin Sodium) 2.5 Mg Tab 2.5 Mg PO DIRECTED 12/10/16 Reported WHOLE TABLET ON SUNDAY,SUNDAY & SUNDAY Jantoven (Warfarin Sodium) 2.5 Mg Tab 1.25 Mg PO DIRECTED 12/10/16 Reported 1/2 TABLET ON SUNDAY,SUNDAY,SUNDAY,SUNDAY Aspirin EC Low Dose (Aspirin) 81 Mg Ectab 81 Mg PO QAM 30 11/16/16 Rx Lopressor (Metoprolol Tartrate) 25 Mg Tab 25 Mg PO BID 30 11/16/16 Rx Digoxin 0.125 Mg Tab 0.125 Mg PO MOWEFR 30 11/16/16 Rx Spiriva Handihaler (Tiotropium [place]) 30 Puff/540 Mcg Aerp 2 Puffs INH DAILY 11/13/16 Reported Losartan Potassium 50 Mg Tab 50 Mg PO DAILY 11/13/16 Reported Nitrostat (Nitroglycerin) 0.4 Mg Sub 0.4 Mg UT PRN 11/13/16 Reported Prednisone 5 Mg Tab 7.5 Mg PO DAILY 11/13/16 Reported Combivent Respimat (Ipratropium-Albuterol) 1 Aer Aer 1 Puff PO QID 11/13/16 Reported Levalbuterol 1.25 Mg/0.5 Ml Nebu 1.25 Mg INH Q6R 10 10/17/16 Rx Novolog Flexpen (Insulin Aspart) 100 Units/Ml Inj 1 Dose SQ ACHS 10/11/16 Reported SLIDING SCALE. APPROX 10UNITS BID Ranitidine HCl 150 Mg Tab 1 Tab PO BID 10/11/16 Reported Fluticasone Propionate 120 Sprays/6000 Mcg Inha 2 Sprays ALDEN DAILY 10/11/16 Reported Duoneb (Ipratropium-Albuterol) 3 Ml Nebu 1 Treatment INH Q4H PRN 07/24/16 Reported Ambien (Zolpidem Tartrate) 5 Mg Tab 5 Mg PO HS PRN 05/14/16 Reported Levemir (Insulin Detemir) 100 Units/Ml Inj SQ UD 05/14/16 Reported 14 units in am and 8 units in pm Lasix (Furosemide) 20 Mg Tab 20 Mg PO DAILY 09/18/14 Reported Flomax (Tamsulosin Hcl) 0.4 Mg Cap 0.4 Mg PO HS 09/18/14 Reported Zocor (Simvastatin) 20 Mg Tab 20 Mg PO QPM 12/11/08 Reported take with supper Physical Exam Vital Signs (Last 8hrs): Last 8 Hrs Date Time Temp Pulse Resp B/P (MAP) Pulse Ox O2 Delivery O2 Flow Rate FiO2 12/11/16 08:00 Room Air 12/11/16 07:44 36.5 48 19 182/74 (110) 98 Nasal Cannula 2.0 12/11/16 07:13 52 18 99 Nasal Cannula 2.0 12/11/16 04:10 36.7 40 18 157/80 (105) 99 Nasal Cannula 2.0 12/11/16 04:00 Room Air General Appearance: Alert and Oriented x3. NAD. Head: Normocephalic Atraumatic. Eyes: PERRLA, EOMI, conjunctiva and sclera clear Neck: Supple. No carotid bruits noted. No JVD. No HJD. Respiratory: Breath sounds clear to auscultation bilaterally. No w/r/r. Cardiovascular: Regular, bradycardic. Occasional ectopy. S1 and S2 noted. No murmurs, rubs, gallops. PMI non displace. Abdomen: Normal bowel sounds, soft nontender. no abdominal bruits. Extremities: 1+B/L pretibial edema. No clubbing or cyanosis. distal pulses 2/4 bilaterally. Neuro: No focal deficits. Psychiatric: Normal affect. Data Last 24 Hours Test 12/10/16 21:45 12/11/16 00:36 12/11/16 05:57 12/11/16 07:16 White Blood Count 8.91 K/uL 6.81 K/uL Red Blood Count 4.00 M/uL 3.54 M/uL Hemoglobin 11.0 g/dL 9.9 g/dL Hematocrit 35.0 % 31.1 % Mean Corpuscular Volume 87.5 fL 87.9 fL Mean Corpuscular Hemoglobin 27.5 pg 28.0 pg Mean Corpuscular Hemoglobin Concent 31.4 g/dl 31.8 g/dl Platelet Count 205 K/uL 167 K/uL Mean Platelet Volume 10.1 fL 10.7 fL Neutrophils (%) (Auto) 77.4 % Lymphocytes (%) (Auto) 15.7 % Monocytes (%) (Auto) 6.2 % Eosinophils (%) (Auto) 0.2 % Basophils (%) (Auto) 0.2 % Neutrophils # (Auto) 6.89 K/uL Lymphocytes # (Auto) 1.40 K/uL Monocytes # (Auto) 0.55 K/uL Eosinophils # (Auto) 0.02 K/uL Basophils # (Auto) 0.02 K/uL RDW Standard Deviation 46.9 fL 47.7 fL RDW Coefficient of Variation 14.7 % 14.9 % Immature Granulocyte % (Auto) 0.3 % Immature Granulocyte # (Auto) 0.03 K/uL Prothrombin Time 15.4 SECONDS 16.2 SECONDS Prothromb Time International Ratio 1.4 1.5 Activated Partial Thromboplast Time 36.6 SECONDS 96.5 SECONDS Partial Thromboplastin Ratio 1.4 3.7 Sodium Level 141 mmol/L 140 mmol/L Potassium Level 5.3 mmol/L 5.0 mmol/L Chloride Level 107 mmol/L 108 mmol/L Carbon Dioxide Level 27 mmol/L 29 mmol/L Anion Gap 7.0 mmol/L 3.0 mmol/L Blood Urea Nitrogen 41 mg/dl 40 mg/dl Creatinine 2.10 mg/dl 1.80 mg/dl Est Creatinine Clear Calc Drug Dose 31.8 ml/min 37.1 ml/min Estimated GFR () 33.9 40.9 Estimated GFR (Non- 29.3 35.3 BUN/Creatinine Ratio 19.7 22.1 Random Glucose 147 mg/dl 237 mg/dl Calcium Level 8.5 mg/dl 8.0 mg/dl Magnesium Level 2.0 mg/dl 2.1 mg/dl Total Bilirubin 0.3 mg/dl Aspartate Amino Transf (AST/SGOT) 28 U/L Alanine Aminotransferase (ALT/SGPT) 34 U/L Alkaline Phosphatase 88 U/L Troponin I < 0.015 ng/ml 0.025 ng/ml Total Protein 6.3 gm/dl Albumin 3.1 gm/dl Globulin 3.2 gm/dl Albumin/Globulin Ratio 1.0 Thyroid Stimulating Hormone (TSH) 1.050 uIu/ml Digoxin Level 0.5 ng/ml Bedside Glucose 198 mg/dl 270 mg/dl Total Creatine Kinase 58 U/L Creatine Kinase MB 2.8 ng/ml Creatine Kinase MB Ratio 4.8 Imaging: Chest x-ray, no acute cardiopulmonary findings. EKG: Sinus bradycardia Telemetry reviewed: Sinus rhythm and sinus bradycardia. Brief natasha of paroxysmal atrial tachycardia occurring at approximate 6:25 AM. Occasional premature atrial complexes. Assessment & Plan Final impression: 1. Tachy -macy syndrome 2. Paroxysmal atrial flutter/fibrillation with spontaneous conversion to marked sinus bradycardia -AV edouard blocking agents currently on hold - INR subtherapeutic 2. Acute on chronic bilateral lower extremity edema secondary to rapid atrial flutter, diastolic dysfunction, and renal dysfunction 3. Labile HTN 4. Dyslipidemia Plan/Recommendations: I long discussion with the patient regarding the natural history and pathophysiology of tachy-macy syndrome. Treatment options discussed at length with both the patient and his . Recommend permanent pacemaker implantation. Metoprolol and digoxin will be placed on hold pending PPM implantation. Intravenous heparin will be continued, although, held perioperatively. Coumadin will be given today after pacemaker implantation with a repeat PT/INR in the a.m. Plan to titrate metoprolol post pacemaker implantation and hold digoxin. Initiation of sotalol considered, however, this would carry risk with renal dysfunction. All questions answered to the satisfaction of both the patient and his . Case also discussed with electrophysiology. I will continue to follow closely during hospitalization. Thank you for allow me to take part in the care of your patient.
[2016-12-11] MEDS ORDERED: INSULIN DETEMIR FLEXPEN/FLEX TOUCH 100 UNITS/ML 3ML SC ONE (11:45)
[2016-12-11 12:53] LABS: CKMB/CK RATIO 4.8 (0-3.0)
[2016-12-11 14:39] LABS: PARTIAL THROMBOPLASTIN RATIO 2.8
[2016-12-11] MEDS ORDERED: WARFARIN SOD 2.5 MG TAB PO SCH (16:00)
--- NOTE | 2016-12-11 17:15 | Cardiology Consultation ---
Cardiology Consultation Date of Consultation: Dec 11, 2016. Requesting Physician: Rafael Reason for Consultation: Bradycardia History of Present Illness Patient is a 68-year-old gentleman with a history of paroxysmal atrial fibrillation. He was reportedly in his usual state of health yesterday when he incidentally noted a high heart rate. The patient is accustomed to checking his pulse periodically with a pulse oximeter. He noticed that the rate was quite high. He did not have associated symptoms of dizziness or lightheadedness. He was not aware of any palpitations. He did not have any chest pain or worsening shortness of breath. He decided to walk outside and monitor his pulse. At the next reading it was quite low. Once again he did not have overt symptoms of dizziness or lightheadedness. He had no symptoms of presyncope. He states that he has noticed some low pulses on occasion and more recently his pulse has been running in the 50s. He has otherwise been able to maintain his usual level of activity. He states that he is active around the house performs routine chores without limiting dyspnea. He has no symptoms of exertional chest discomfort. He cannot recall any recent palpitations. He has no symptoms of presyncope and has not suffered syncope. He does have some minor tenderness at the site of a VATS procedure in the right chest wall. Past Medical/Surgical History 1. Paroxysmal atrial fibrillation Two. Type 1 diabetes mellitus 3. COPD 4. Hypertension 5. Hyperlipidemia 6. Obstructive uropathy 7. Tobacco abuse Past surgical history Vats procedure involving the right lung Prostate biopsy Nasal polyp removal Left temporoparietal brain surgery Inguinal hernia repair Family History Cancer MOTHER Diabetes mellitus BROTHER Gallbladder disease Heart disease Hypertension Kidney disease Kidney stones Noncontributory given the patient's advanced age. No premature coronary disease Social History Smoking Status: Former Smoker History of Alcohol Use: No Patient does have a remote history of tobacco abuse totaling 80 pack years. No history of alcohol abuse Review of Systems Constitutional: + see HPI Respiratory: + see HPI, + cough, + sputum, + wheezing, + dyspnea on exertion Cardiac: + see HPI Abdomen: + see HPI Male : + see HPI Neurologic: + see HPI Heme: + see HPI Endo: + see HPI Skin: + see HPI All Other Systems: Reviewed and Negative Allergies Coded Allergies: Diltiazem (Verified Allergy, Mild, RASH, 10/11/16) Aspirin (Verified Adverse Reaction, Mild, GI SYMPTOMS, 10/11/16) Lisinopril (Verified Adverse Reaction, Unknown, cough, 10/11/16) Propoxyphene (Verified Adverse Reaction, Unknown, STOMACH UPSET DIARRHEA, 10/11/16) Medications Current Inpatient Medications Medications (Trade) Dose Ordered Sig/Bertha Route Start Time Stop Time Status Last Admin Dose Admin Sodium Chloride 1,000 ml @ 125 mls/hr Q8H IV 12/10/16 23:41 01/09/17 23:40 12/11/16 15:58 125 MLS/HR Acetaminophen (Tylenol Tab) 650 mg Q4H PRN PO 12/10/16 23:45 01/09/17 23:44 Ondansetron HCl (Zofran Inj) 4 mg Q6H PRN IV 12/10/16 23:45 01/09/17 23:44 Aspirin (Ecotrin Tab) 81 mg QAM PO 12/11/16 09:00 01/10/17 08:59 12/11/16 07:47 81 MG Finasteride (Proscar Tab) 5 mg DAILY PO 12/11/16 09:00 01/10/17 08:59 12/11/16 07:46 5 MG Fluticasone Propionate (Flonase Nasal [place]) 2 sprays DAILY ALDEN 12/11/16 09:00 01/10/17 08:59 12/11/16 07:45 2 SPRAYS Insulin Aspart (novoLOG ASPART) ACHS SQ 12/11/16 07:00 01/10/17 06:59 12/11/16 16:49 9 UNITS Albuterol/ Ipratropium (Combivent Respimat Inh) 1 puffs QID INH 12/11/16 09:00 01/10/17 08:59 12/11/16 16:45 1 PUFFS Albuterol/ Ipratropium (Duoneb) 3 ml Q4H PRN INH 12/10/16 23:45 01/09/17 23:44 Levalbuterol (Xopenex 1.25MG/ 0.5ML Neb) 1.25 mg Q6R INH 12/11/16 03:00 01/10/17 02:59 12/11/16 14:13 1.25 MG Losartan Potassium (coZAAR TAB) 50 mg DAILY PO 12/11/16 09:00 01/10/17 08:59 Nitroglycerin (Nitrostat Tab) 0.4 mg PRN UT 12/10/16 23:45 01/09/17 23:44 Prednisone (PredniSONE TAB) 7.5 mg DAILY PO 12/11/16 09:00 01/10/17 08:59 12/11/16 10:15 7.5 MG Ranitidine HCl (zANTac TAB) 150 mg BID PO 12/11/16 09:00 01/10/17 08:59 12/11/16 07:45 150 MG Simvastatin (Zocor Tab) 20 mg QPM PO 12/11/16 21:00 01/10/17 20:59 Tamsulosin HCl (Flomax Cap) 0.4 mg HS PO 12/11/16 21:00 01/10/17 20:59 Tiotropium [place] (Spiriva Handihaler Inhaler) 1 puff DAILY INH 12/11/16 09:00 01/10/17 08:59 12/11/16 07:47 1 PUFF Warfarin Sodium (Coumadin Tab) 1.25 mg SuTuThSa@1600 PO 12/12/16 16:00 01/11/17 15:59 Warfarin Sodium (Coumadin Tab) 2.5 mg MoWeFr@1600 PO 12/11/16 16:00 01/10/17 15:59 12/11/16 16:45 2.5 MG Zolpidem Tartrate (Ambien Tab) 5 mg HS PRN PO 12/10/16 23:45 01/09/17 23:44 Miscellaneous Information (Order Awaiting Action) 1 ea QS N/A 12/11/16 08:00 01/10/17 07:59 Insulin Detemir (Levemir Flexpen/ FlexTouch) 14 units QAM SC 12/11/16 09:00 01/10/17 08:59 12/11/16 07:44 14 UNITS Insulin Detemir (Levemir Flexpen/ FlexTouch) 8 units PM SC 12/11/16 21:00 01/10/17 20:59 Heparin Sodium/ Dextrose 500 ml @ 20 mls/hr Q24H PRN IV 12/11/16 00:45 01/10/17 00:44 Physical Exam Vital Signs Past 12 Hours Date Time Temp Pulse Resp B/P (MAP) Pulse Ox O2 Delivery O2 Flow Rate FiO2 12/11/16 16:00 Room Air 12/11/16 15:22 36.7 74 20 94 Room Air 12/11/16 14:13 55 18 94 Room Air 12/11/16 12:00 Room Air 12/11/16 11:34 36.7 49 19 163/84 (110) 93 Nasal Cannula 2.0 12/11/16 08:00 Room Air 12/11/16 07:44 36.5 48 19 182/74 (110) 98 Nasal Cannula 2.0 12/11/16 07:13 52 18 99 Nasal Cannula 2.0 The patient is alert and oriented. Mood and affect appeared normal. He answered all questions appropriately. HEENT: Pupils are equal and reactive to light and accommodation. Extraocular movements are intact. The sclerae are anicteric. Neuro: Cranial nerves intact Neck: Patient's neck is supple. He has palpable carotid pulses bilaterally without bruits on auscultation. There is no evidence of jugular venous distention. The thyroid is not enlarged. Lungs: Clear to auscultation bilaterally. He has good air movement without use of accessory muscles. No rales wheezes or rhonchi. Cardiac: Heart demonstrates an irregular rate and rhythm. Normal S1 and S2. No murmurs on examination. Pulses: The patient has palpable radial pulses bilaterally that are equal in intensity Extremities: There was no evidence of hypoperfusion. There is no cyanosis or clubbing. There is no edema. Skin: I did not appreciate any rashes on examination today. Data Laboratory Results: Last 24 Hours Test 12/10/16 21:45 12/11/16 00:36 12/11/16 05:57 12/11/16 07:16 White Blood Count 8.91 K/uL 6.81 K/uL Red Blood Count 4.00 M/uL 3.54 M/uL Hemoglobin 11.0 g/dL 9.9 g/dL Hematocrit 35.0 % 31.1 % Mean Corpuscular Volume 87.5 fL 87.9 fL Mean Corpuscular Hemoglobin 27.5 pg 28.0 pg Mean Corpuscular Hemoglobin Concent 31.4 g/dl 31.8 g/dl Platelet Count 205 K/uL 167 K/uL Mean Platelet Volume 10.1 fL 10.7 fL Neutrophils (%) (Auto) 77.4 % Lymphocytes (%) (Auto) 15.7 % Monocytes (%) (Auto) 6.2 % Eosinophils (%) (Auto) 0.2 % Basophils (%) (Auto) 0.2 % Neutrophils # (Auto) 6.89 K/uL Lymphocytes # (Auto) 1.40 K/uL Monocytes # (Auto) 0.55 K/uL Eosinophils # (Auto) 0.02 K/uL Basophils # (Auto) 0.02 K/uL RDW Standard Deviation 46.9 fL 47.7 fL RDW Coefficient of Variation 14.7 % 14.9 % Immature Granulocyte % (Auto) 0.3 % Immature Granulocyte # (Auto) 0.03 K/uL Prothrombin Time 15.4 SECONDS 16.2 SECONDS Prothromb Time International Ratio 1.4 1.5 Activated Partial Thromboplast Time 36.6 SECONDS 96.5 SECONDS Partial Thromboplastin Ratio 1.4 3.7 Sodium Level 141 mmol/L 140 mmol/L Potassium Level 5.3 mmol/L 5.0 mmol/L Chloride Level 107 mmol/L 108 mmol/L Carbon Dioxide Level 27 mmol/L 29 mmol/L Anion Gap 7.0 mmol/L 3.0 mmol/L Blood Urea Nitrogen 41 mg/dl 40 mg/dl Creatinine 2.10 mg/dl 1.80 mg/dl Est Creatinine Clear Calc Drug Dose 31.8 ml/min 37.1 ml/min Estimated GFR () 33.9 40.9 Estimated GFR (Non- 29.3 35.3 BUN/Creatinine Ratio 19.7 22.1 Random Glucose 147 mg/dl 237 mg/dl Calcium Level 8.5 mg/dl 8.0 mg/dl Magnesium Level 2.0 mg/dl 2.1 mg/dl Total Bilirubin 0.3 mg/dl Aspartate Amino Transf (AST/SGOT) 28 U/L Alanine Aminotransferase (ALT/SGPT) 34 U/L Alkaline Phosphatase 88 U/L Troponin I < 0.015 ng/ml 0.025 ng/ml Total Protein 6.3 gm/dl Albumin 3.1 gm/dl Globulin 3.2 gm/dl Albumin/Globulin Ratio 1.0 Thyroid Stimulating Hormone (TSH) 1.050 uIu/ml Digoxin Level 0.5 ng/ml Bedside Glucose 198 mg/dl 270 mg/dl Total Creatine Kinase 58 U/L Creatine Kinase MB 2.8 ng/ml Creatine Kinase MB Ratio 4.8 Test 12/11/16 11:07 12/11/16 11:08 12/11/16 11:53 12/11/16 14:08 Bedside Glucose > 600 mg/dl 304 mg/dl Total Creatine Kinase 63 U/L Creatine Kinase MB 3.0 ng/ml Creatine Kinase MB Ratio 4.8 Troponin I 0.022 ng/ml Activated Partial Thromboplast Time 72.3 SECONDS Partial Thromboplastin Ratio 2.8 Test 12/11/16 16:15 Bedside Glucose 232 mg/dl Imaging: Chest x-ray was obtained at the time of admission which did not reveal any evidence of acute cardiopulmonary disease EKG: Sinus bradycardia with incomplete right bundle branch block. Normal QTC Telemetry reviewed: Sinus bradycardia with occasional periods of what could be Mob[place] 2 conduction Assessment & Plan 1. Tachy-macy syndrome: Patient has both high heart rates and slow heart rates suggestive of tachy-macy syndrome. Very likely that he had a period of paroxysmal atrial fibrillation yesterday with high ventricular rates. This will likely require more aggressive rate control. Given his resting bradycardia pacemaker seems indicated to facilitate medical therapy of his atrial fibrillation. There is also some concern on his telemetry about Mobitz 2 conduction. Does have some dropped beats suggesting an element of AV edouard disease, however this may be related more to PACs than true sinus beats. His rate control agents have currently been held in anticipation of a pacemaker implantation tomorrow. I did discuss with the patient the risks benefits and alternatives to permanent pacemaker implantation and he is willing to proceed. He has been started on a heparin infusion due to his subtherapeutic INR. Will discontinue this prior to his implant. Patient can continue his warfarin, but I would avoid any systemic heparinization subsequent to the pacemaker implant. 2. Atrial fibrillation: Of the tachyarrhythmia present last evening was not definitively characterize, but he does have a history of atrial fibrillation. He would likely be a good candidate for rate control given the absence of symptoms with the tachycardia and our plan for pacemaker implant. Use of antiarrhythmics could be considered but the patient's renal function is abnormal , and this was be taken into account prior to use of most class 3 agents. Baseline QTC is normal
[2016-12-11 19:07] LABS: CKMB/CK RATIO 5.6 (0-3.0)
[2016-12-11] MEDS: SIMVASTATIN 20 MG TAB PO SCH (19:59)
[2016-12-11] MEDS: TAMSULOSIN HCL 0.4 MG CAP PO SCH (19:59)
--- NOTE | 2016-12-11 21:15 | Progress Note ---
Medicine Progress Note Date & Time of Visit: Dec 11, 2016 at 18:40 . Subjective Admitted last evening for bradycardia. No unusual weakness or lightheadedness. No chest pain. No cough or shortness of breath. No nausea or vomiting. . Objective Last 8 Hrs Date Time Temp Pulse Resp B/P (MAP) Pulse Ox O2 Delivery O2 Flow Rate FiO2 12/11/16 19:13 57 18 96 Room Air 12/11/16 19:05 36.6 52 18 162/77 (105) 93 Room Air 12/11/16 16:00 Room Air 12/11/16 15:22 36.7 74 20 94 Room Air 12/11/16 14:13 55 18 94 Room Air Physical Exam: General- no distress Neck- no JVD Lungs- clear Heart- irregular, rate 50s, no gallop appreciated Abdomen- soft, nontender Extremities- no pretibial edema or calf tenderness Neuro- alert, oriented . Laboratory Results: Last 24 Hours Test 12/10/16 21:45 12/11/16 00:36 12/11/16 05:57 12/11/16 07:16 White Blood Count 8.91 K/uL 6.81 K/uL Red Blood Count 4.00 M/uL 3.54 M/uL Hemoglobin 11.0 g/dL 9.9 g/dL Hematocrit 35.0 % 31.1 % Mean Corpuscular Volume 87.5 fL 87.9 fL Mean Corpuscular Hemoglobin 27.5 pg 28.0 pg Mean Corpuscular Hemoglobin Concent 31.4 g/dl 31.8 g/dl Platelet Count 205 K/uL 167 K/uL Mean Platelet Volume 10.1 fL 10.7 fL Neutrophils (%) (Auto) 77.4 % Lymphocytes (%) (Auto) 15.7 % Monocytes (%) (Auto) 6.2 % Eosinophils (%) (Auto) 0.2 % Basophils (%) (Auto) 0.2 % Neutrophils # (Auto) 6.89 K/uL Lymphocytes # (Auto) 1.40 K/uL Monocytes # (Auto) 0.55 K/uL Eosinophils # (Auto) 0.02 K/uL Basophils # (Auto) 0.02 K/uL RDW Standard Deviation 46.9 fL 47.7 fL RDW Coefficient of Variation 14.7 % 14.9 % Immature Granulocyte % (Auto) 0.3 % Immature Granulocyte # (Auto) 0.03 K/uL Prothrombin Time 15.4 SECONDS 16.2 SECONDS Prothromb Time International Ratio 1.4 1.5 Activated Partial Thromboplast Time 36.6 SECONDS 96.5 SECONDS Partial Thromboplastin Ratio 1.4 3.7 Sodium Level 141 mmol/L 140 mmol/L Potassium Level 5.3 mmol/L 5.0 mmol/L Chloride Level 107 mmol/L 108 mmol/L Carbon Dioxide Level 27 mmol/L 29 mmol/L Anion Gap 7.0 mmol/L 3.0 mmol/L Blood Urea Nitrogen 41 mg/dl 40 mg/dl Creatinine 2.10 mg/dl 1.80 mg/dl Est Creatinine Clear Calc Drug Dose 31.8 ml/min 37.1 ml/min Estimated GFR () 33.9 40.9 Estimated GFR (Non- 29.3 35.3 BUN/Creatinine Ratio 19.7 22.1 Random Glucose 147 mg/dl 237 mg/dl Calcium Level 8.5 mg/dl 8.0 mg/dl Magnesium Level 2.0 mg/dl 2.1 mg/dl Total Bilirubin 0.3 mg/dl Aspartate Amino Transf (AST/SGOT) 28 U/L Alanine Aminotransferase (ALT/SGPT) 34 U/L Alkaline Phosphatase 88 U/L Troponin I < 0.015 ng/ml 0.025 ng/ml Total Protein 6.3 gm/dl Albumin 3.1 gm/dl Globulin 3.2 gm/dl Albumin/Globulin Ratio 1.0 Thyroid Stimulating Hormone (TSH) 1.050 uIu/ml Digoxin Level 0.5 ng/ml Bedside Glucose 198 mg/dl 270 mg/dl Total Creatine Kinase 58 U/L Creatine Kinase MB 2.8 ng/ml Creatine Kinase MB Ratio 4.8 Test 12/11/16 11:07 12/11/16 11:08 12/11/16 11:53 12/11/16 14:08 Bedside Glucose > 600 mg/dl 304 mg/dl Total Creatine Kinase 63 U/L Creatine Kinase MB 3.0 ng/ml Creatine Kinase MB Ratio 4.8 Troponin I 0.022 ng/ml Activated Partial Thromboplast Time 72.3 SECONDS Partial Thromboplastin Ratio 2.8 Test 12/11/16 16:15 12/11/16 18:10 12/11/16 20:12 12/11/16 21:07 Bedside Glucose 232 mg/dl 300 mg/dl Total Creatine Kinase 59 U/L Creatine Kinase MB 3.3 ng/ml Creatine Kinase MB Ratio 5.6 Troponin I 0.024 ng/ml Assessment & Plan ATRIAL FIBRILLATION WITH SLOW VENTRICULAR RATE Cardiology consulted. Permanent pacemaker recommended and is scheduled for tomorrow. Holding digoxin and metoprolol. Receiving IV heparin for atrial fibrillation with subtherapeutic INR. Will discontinue heparin around midnight tonight in anticipation of pacemaker placement in the morning. Management of atrial fibrillation after pacemaker insertion per Cardiology. HYPERTENSION Holding metoprolol due to bradycardia. Continue losartan. Following and titrate therapy. COPD Stable. CHRONIC KIDNEY DISEASE III Serum creatinine 1.8. Follow. DIABETES MELLITUS Blood sugars elevated. Check hemoglobin A1c. Titrate insulin therapy. VTE PROPHYLAXIS Currently receiving warfarin and IV heparin. INR subtherapeutic and heparin to be held tonight. SCD's starting tomorrow morning. Ambulate. DISPOSITION Expected discharge to home. Family Medicine follow-up with Dr. Monte. . Current Inpatient Medications: Current Inpatient Medications Medications (Trade) Dose Ordered Sig/Bertha Route Start Time Stop Time Status Last Admin Dose Admin Sodium Chloride 1,000 ml @ 125 mls/hr Q8H IV 12/10/16 23:41 01/09/17 23:40 12/11/16 15:58 125 MLS/HR Acetaminophen (Tylenol Tab) 650 mg Q4H PRN PO 12/10/16 23:45 01/09/17 23:44 Ondansetron HCl (Zofran Inj) 4 mg Q6H PRN IV 12/10/16 23:45 01/09/17 23:44 Aspirin (Ecotrin Tab) 81 mg QAM PO 12/11/16 09:00 01/10/17 08:59 12/11/16 07:47 81 MG Finasteride (Proscar Tab) 5 mg DAILY PO 12/11/16 09:00 01/10/17 08:59 12/11/16 07:46 5 MG Fluticasone Propionate (Flonase Nasal [place]) 2 sprays DAILY [place] 12/11/16 09:00 01/10/17 08:59 12/11/16 07:45 2 SPRAYS Insulin Aspart (novoLOG ASPART) ACHS SQ 12/11/16 07:00 01/10/17 06:59 12/11/16 20:58 7 UNITS Albuterol/ Ipratropium (Combivent Respimat Inh) 1 puffs QID INH 12/11/16 09:00 01/10/17 08:59 12/11/16 19:58 1 PUFFS Albuterol/ Ipratropium (Duoneb) 3 ml Q4H PRN INH 12/10/16 23:45 01/09/17 23:44 Levalbuterol (Xopenex 1.25MG/ 0.5ML Neb) 1.25 mg Q6R INH 12/11/16 03:00 01/10/17 02:59 12/11/16 19:13 1.25 MG Losartan Potassium (coZAAR TAB) 50 mg DAILY PO 12/11/16 09:00 01/10/17 08:59 Nitroglycerin (Nitrostat Tab) 0.4 mg PRN UT 12/10/16 23:45 01/09/17 23:44 Prednisone (PredniSONE TAB) 7.5 mg DAILY PO 12/11/16 09:00 01/10/17 08:59 12/11/16 10:15 7.5 MG Ranitidine HCl (zANTac TAB) 150 mg BID PO 12/11/16 09:00 01/10/17 08:59 12/11/16 19:58 150 MG Simvastatin (Zocor Tab) 20 mg QPM PO 12/11/16 21:00 01/10/17 20:59 12/11/16 19:59 20 MG Tamsulosin HCl (Flomax Cap) 0.4 mg HS PO 12/11/16 21:00 01/10/17 20:59 12/11/16 19:59 0.4 MG Tiotropium [place] (Spiriva Handihaler Inhaler) 1 puff DAILY INH 12/11/16 09:00 01/10/17 08:59 12/11/16 07:47 1 PUFF Warfarin Sodium (Coumadin Tab) 1.25 mg SuTuThSa@1600 PO 12/12/16 16:00 01/11/17 15:59 Warfarin Sodium (Coumadin Tab) 2.5 mg MoWeFr@1600 PO 12/11/16 16:00 01/10/17 15:59 12/11/16 16:45 2.5 MG Zolpidem Tartrate (Ambien Tab) 5 mg HS PRN PO 12/10/16 23:45 01/09/17 23:44 Miscellaneous Information (Order Awaiting Action) 1 ea QS N/A 12/11/16 08:00 01/10/17 07:59 Insulin Detemir (Levemir Flexpen/ FlexTouch) 14 units QAM SC 12/11/16 09:00 01/10/17 08:59 12/11/16 07:44 14 UNITS Insulin Detemir (Levemir Flexpen/ FlexTouch) 8 units PM SC 12/11/16 21:00 01/10/17 20:59 12/11/16 20:59 8 UNITS Heparin Sodium/ Dextrose 500 ml @ 15 mls/hr Q24H PRN IV 12/11/16 00:45 12/11/16 23:59 Lactated Ringer's 1,000 ml @ 75 mls/hr [id number] ONCE IV 12/12/16 01:00 12/12/16 14:19 Cefazolin Sodium 2000 mg/Dextrose 60 ml @ 120 mls/hr PREOP IV 12/12/16 06:00 12/12/16 18:00
[2016-12-11 22:11] LABS: PARTIAL THROMBOPLASTIN RATIO 2.2
[2016-12-11] MEDS ORDERED: NURSING VERBAL MED ORDER ONE (23:15)
[2016-12-11 23:40] LABS: CKMB/CK RATIO 5.5 (0-3.0)
[2016-12-12] VITALS (10 sets, daily range): BP systolic 127–183; BP diastolic 51–85; PULSE 52–73; TEMP 36.5–37.2; O2SAT 90–99; Ht 182.9 cm; Wt 89.1 kg
[2016-12-12] MEDS ORDERED: INSULIN ASPART 100 UNITS/ML 3 ML PEN SQ ONE
[2016-12-12] MEDS ORDERED: LACTATED RINGER'S 1000ML 1,000 ML IV ONE (01:00)
[2016-12-12] MEDS: LEVALBUTEROL 1.25MG/0.5ML NEB INH SCH ×4 (02:30→19:42)
[2016-12-12] MEDS ORDERED: CEFAZOLIN SOD 2000 MG in DEXTROSE 5% 50ML IV SCH (06:00)
[2016-12-12] MEDS ORDERED: CEFAZOLIN SOD 1000MG/55 ML D5W IV SCH (06:00)
[2016-12-12] MEDS ORDERED: LIDOCAINE HCL 1% 20 ML VIAL ONE (07:09)
[2016-12-12] MEDS ORDERED: BUPIVACAINE 0.5 % 5 MG/1 ML MPF 30ML VIAL ONE (07:09)
[2016-12-12] MEDS ORDERED: BACITRACIN 50000 UNIT VIAL ONE (07:10)
[2016-12-12 07:16] LABS: INR 1.4 (0.9-1.1); PARTIAL THROMBOPLASTIN RATIO 1.5; PROTHROMBIN TIME (PATIENT) 15.2 SECONDS (9.0-12.0)
[2016-12-12] MEDS: DULERA~ORDER AWAITING ACTION SCH ×3 (07:16→23:46)
[2016-12-12] MEDS ORDERED: KEFZOL SPECIAL PROCEDURE STOCK 1 GM ADDVIAL IV ONE (07:20)
[2016-12-12] MEDS ORDERED: FENTANYL CITRATE INJ 50 MCG/1 ML 2 ML VIAL ONE (07:21)
[2016-12-12] MEDS ORDERED: MIDAZOLAM HCL 5 MG/ML 1 ML VIAL ONE (07:21)
[2016-12-12 07:29] LABS: ESTIMATED AVERAGE GLUCOSE 226 mg/dl; HA1C FLAG Normal (Normal)
[2016-12-12 07:31] LABS: BUN/CREATININE RATIO 24.3 (10-20); CALCIUM 8.5 mg/dl (8.5-10.1); CREATININE 1.4 mg/dl (0.60-1.40); POTASSIUM 4.5 mmol/L (3.5-5.1)
[2016-12-12] MEDS ORDERED: METOPROLOL TARTRATE 50 MG TAB PO ONE (09:15)
--- NOTE | 2016-12-12 09:28 | Procedure Note ---
Procedure Note Date of Service Dec 12, 2016. Procedure Note Procedure performed: Implantation of dual-chamber permanent pacemaker Staff assistant pastry chef: Maite Sandoval Indication: The patient is a 68-year-old gentleman with a history of paroxysmal atrial fibrillation. Patient was recently noted to have high heart rates during periods of atrial fibrillation and converted to sinus rhythm with bradycardia. Patient was noted to have heart rates in the 30s. 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 He was advised to consider permanent pacemaker implantation for symptomatic non reversible AV node dysfunction. The patient was informed of the risks benefits and alternatives to the intended procedure and he wished to proceed. he was taken to the electrophysiology suite in a fasting state. A preoperative antibiotic had been administered. The patient was monitored electrocardiographically throughout today's procedure and conscious sedation was administered per protocol. The left upper pectoral area is prepped and draped in usual sterile fashion. This area was anesthetized using subcutaneous menstruation of a xylocaine solution. An incision was made at this site and carried down to the prepectoralis fascia using sharp dissection. Electrocautery was also employed for dissection as well as for hemostasis. A device pocket was fashioned tissues above the pectoralis muscle. Subsequent to this maneuver the left axillary vein was accessed using modified Seldinger technique. Sheaths were placed over guidewires at this site use salt a passage of the pacing leads to the respective chambers under fluoroscopic guidance. This included right atrial and right ventricular leads. Adequate sensing and threshold parameters were obtained prior to Active fixation of the leads to the endocardial surface. The proximal portion leads were then sutured the prepectoral fascia using nonabsorbable suture. The device pocket was irrigated with antibiotic solution. The leads were then attached to the device. The device and leads were then placed in the pocket and pocket was closed in 3 layers of absorbable suture. Steri-Strips and sterile dressing were applied. The device was tested not have a sleep prior to occlusion the procedure. The patient tolerated procedure well there no immediate complications. Equipment used: New pulse generator: Pelletizer Operator [employer]. Model number: [id number] Serial number:[id number] Right ventricular lead: Pelletizer Operator [employer]. Model number: 4076 serial number: [id number] Right atrial lead: Pelletizer Operator [employer]. Model 4076 serial number: [id number] Measured data: Right atrial lead: P-waves measured 3.9 mV pacing threshold was 0.6V at 0.4 milliseconds with a pacing impedance of 575 Ohms Right ventricular lead R-waves measured 4.6 mV pacing threshold was 0.6mV at 0.4 milliseconds with a pacing impedance of 729 Ohms Impression: Successful implantation of dual-chamber permanent pacemaker
--- NOTE | 2016-12-12 09:34 | Cardiology Follow-Up ---
Subjective General Date of Service: Dec 12, 2016. Pt evaluation today including: conversation w/ patient, conversation w/ family , physical exam, chart review, lab review, review of studies, review of inpatient medication list History of Present Illness The patient is a 76 year old male seen in follow-up. Pacemaker implanted without complication this morning. Atrial paced on telemetry. No dysrhythmias overnight. Patient is feeling well. Denies chest pain or shortness of breath. is present at bedside. Allergies Coded Allergies: Diltiazem (Verified Allergy, Mild, RASH, 10/11/16) Aspirin (Verified Adverse Reaction, Mild, GI SYMPTOMS, 10/11/16) Lisinopril (Verified Adverse Reaction, Unknown, cough, 10/11/16) Propoxyphene (Verified Adverse Reaction, Unknown, STOMACH UPSET DIARRHEA, 10/11/16) Social History Smoking Status: Former Smoker Hx Tobacco Use In Past Year?: No Hx Alcohol Use - Type And Amou: No Hx Substance Use - Type And Am: No Problem List Medical Problems: (1) Atrial fibrillation with RVR Status: Acute (2) Atrial flutter with rapid ventricular response Status: Acute (3) Bradycardia Status: Acute (4) Congestive heart failure Status: Acute (5) COPD exacerbation Status: Acute (6) COPD with exacerbation Status: Acute (7) Dyspnea Status: Acute (8) Pneumonia Status: Acute (9) Renal failure Status: Acute Review of Systems Respiratory: No cough, No sputum, No wheezing, No shortness of breath, No dyspnea at rest, No hemoptysis Cardiac: No chest pain, No orthopnea, No PND, No edema, No palpitations Physical Exam Vital Signs Last Vital Signs Documentation Date Time Temp Pulse Resp B/P (MAP) Pulse Ox O2 Delivery O2 Flow Rate FiO2 12/12/16 08:50 72 16 162/90 (114) 95 Room Air 12/12/16 08:02 36.8 12/12/16 04:51 2.0 Physical Exam Constitutional: General Apperance: heathly-appearing Level of Distress: NAD Ambulation: ambulating normally Head: normocephalic, atraumatic Neck: supple, trachea midline Lungs: Auscultation: breath sounds normal, no wheezing, no rales/crackles, no rhonchi Cardiovascular: Heart Auscultation: RRR, normal S1, normal S2 Peripheral Pulses: Radial Pulse: normal on the right Abdomen: Bowel Sounds: normal Inspection & Palpation: soft, non-distended, no tenderness, guarding & rebound Liver: non-tender Extremities: no cyanosis, no edema, no clubbing, no ulcers Neurologic: Gait & Station: pertinent finding (no focal deficit) Cranial Nerves: grossly intact Assessment and Plan Assessment and Plan Final impression: 1. 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 Paroxysmal atrial flutter/fibrillation with spontaneous conversion to marked sinus bradycardia - INR subtherapeutic 3. Labile HTN - uncontrolled 4. Dyslipidemia Plan/Recommendations: I had long discussion with the patient and his regarding further treatment options. We reviewed the risks of sotalol loading given baseline renal dysfunction. A rate control strategy will be pursued as the patient is asymptomatic during periods of rapid atrial flutter. At this time will titrate metoprolol to 50 mg twice daily. Digoxin will remain on hold. I will give a 5 mg dose of Coumadin today. Repeat PT/INR in the a.m. Will continue to follow patient during hospitalization. Tentatively plan for discharge in 24 hours. Laboratory Results Last 24 Hours Test 12/11/16 11:07 12/11/16 11:08 12/11/16 11:53 12/11/16 14:08 Bedside Glucose > 600 mg/dl 304 mg/dl Total Creatine Kinase 63 U/L Creatine Kinase MB 3.0 ng/ml Creatine Kinase MB Ratio 4.8 Troponin I 0.022 ng/ml Activated Partial Thromboplast Time 72.3 SECONDS Partial Thromboplastin Ratio 2.8 Test 12/11/16 16:15 12/11/16 18:10 12/11/16 20:12 12/11/16 21:07 Bedside Glucose 232 mg/dl 300 mg/dl Total Creatine Kinase 59 U/L Creatine Kinase MB 3.3 ng/ml Creatine Kinase MB Ratio 5.6 Troponin I 0.024 ng/ml Activated Partial Thromboplast Time 57.2 SECONDS Partial Thromboplastin Ratio 2.2 Test 12/11/16 23:10 12/11/16 23:30 12/12/16 06:40 12/12/16 06:50 Total Creatine Kinase 56 U/L Creatine Kinase MB 3.1 ng/ml Creatine Kinase MB Ratio 5.5 Troponin I 0.026 ng/ml Bedside Glucose 294 mg/dl 82 mg/dl Prothrombin Time 15.2 SECONDS Prothromb Time International Ratio 1.4 Activated Partial Thromboplast Time 37.8 SECONDS Partial Thromboplastin Ratio 1.5 Sodium Level 145 mmol/L Potassium Level 4.5 mmol/L Chloride Level 112 mmol/L Carbon Dioxide Level 29 mmol/L Anion Gap 4.0 mmol/L Blood Urea Nitrogen 34 mg/dl Creatinine 1.40 mg/dl Est Creatinine Clear Calc Drug Dose 47.7 ml/min Estimated GFR () 55.4 Estimated GFR (Non- 47.8 BUN/Creatinine Ratio 24.3 Random Glucose 78 mg/dl Estimated Average Glucose 226 mg/dl Hemoglobin A1c 9.5 % Calcium Level 8.5 mg/dl
[2016-12-12] MEDS ORDERED: WARFARIN SOD 5 MG TAB PO STA (09:35)
[2016-12-12] MEDS: FINASTERIDE 5 MG TAB PO SCH (09:58)
[2016-12-12] MEDS: RANITIDINE HCL 150 MG TAB PO SCH ×2 (09:58→20:15)
[2016-12-12] MEDS: ASPIRIN 81 MG ECTAB PO SCH (09:58)
[2016-12-12] MEDS: TIOTROPIUM BROMIDE 5 PUFF/90 MCG INH INH SCH (09:59)
[2016-12-12] MEDS: LOSARTAN POTASSIUM 50 MG TAB PO SCH (09:59)
[2016-12-12] MEDS: FLUTICASONE PROPIONATE NA SPR 16 GM BTL NAE SCH (09:59)
[2016-12-12] MEDS: IPRATROPIUM BROMIDE/ALBUTEROL respimat INH INH SCH ×4 (09:59→20:12)
[2016-12-12] MEDS: INSULIN ASPART 100 UNITS/ML 3 ML PEN SQ SCH ×4 (10:08→20:33)
[2016-12-12] MEDS: INSULIN DETEMIR FLEXPEN/FLEX TOUCH 100 UNITS/ML 3ML SC SCH ×2 (10:08→20:33)
--- NOTE | 2016-12-12 11:34 | Progress Note ---
Internal Med Progress Note Date of Service: Dec 12, 2016. Provider Documentation: SUBJECTIVE: Seen and examined at bedside. Had pacemaker implantation this morning States feeling well Denies Chest pain, SOB, dizziness. Offers no complaints OBJECTIVE: Vital Signs-as noted below Physical Exam: General Appearance:Moderately built and nourished, no apparent distress Head: normocephalic, Atraumatic Eyes: normal inspection, EOMI, PERRL Neck: supple, Trachea midline Chest: Left side pacemaker, surgical site in bandage Respiratory/Chest: Normal breath sounds, CTA Cardiovascular: S1, S2, No murmur Abdomen/GI:Soft, Non tender, Bowel sounds present Extremities/Musculoskelatal:normal inspection, no edema Neurologic/Psych:grossly no focal neurological deficits Skin: normal color, warm Lab data as noted below. ASSESSMENT & PLAN: Tachy-macy Syndrome s/p dual chamber PPM implantation POD # 0 Continue Metoprolol Digoxin on hold Coumadin resumed today INR Subtherapeutic. Monitor INR HYPERTENSION Continue metoprolol, losartan. monitor COPD Stable continue home inhalers CKD III Cr: 1.4 monitor renal function DM II Blood sugars elevated. A1C: 9.5 ISS, Levemir DVT Px: on warfarin Ambulate DISPOSITION Expected discharge to home. Family Medicine follow-up with Dr. Monte Likely discharge home tomorrow Vital Signs: Date Time Temp Pulse Resp B/P (MAP) Pulse Ox O2 Delivery O2 Flow Rate FiO2 12/12/16 08:50 72 16 162/90 (114) 95 Room Air 12/12/16 08:35 72 16 149/90 (109) 95 Room Air 12/12/16 08:02 36.8 56 18 150/76 (100) 96 12/12/16 07:08 58 18 93 Room Air 12/12/16 04:51 36.6 55 18 158/77 99 Nasal Cannula 2.0 12/12/16 04:00 Room Air 12/12/16 04:00 36.6 55 18 158/77 (104) 99 Nasal Cannula 2.0 12/11/16 23:59 Room Air 12/11/16 23:37 37.0 41 18 168/79 (108) 98 Nasal Cannula 2.0 12/11/16 20:00 Room Air 12/11/16 19:13 57 18 96 Room Air 12/11/16 19:05 36.6 52 18 162/77 (105) 93 Room Air 12/11/16 16:00 Room Air 12/11/16 15:22 36.7 74 20 94 Room Air 12/11/16 14:13 55 18 94 Room Air 12/11/16 12:00 Room Air 12/11/16 11:34 36.7 49 19 163/84 (110) 93 Nasal Cannula 2.0 Lab Results: Results Past 24 Hours Test 12/11/16 11:53 12/11/16 14:08 12/11/16 16:15 12/11/16 18:10 Range/Units Total Creatine Kinase 63 59 39-308 U/L Creatine Kinase MB 3.0 3.3 0.5-3.6 ng/ml Creatine Kinase MB Ratio 4.8 5.6 0-3.0 Troponin I 0.022 0.024 0-0.045 ng/ml Activated Partial Thromboplast Time 72.3 21.0-31.0 SECONDS Partial Thromboplastin Ratio 2.8 Bedside Glucose 232 70-99 mg/dl Test 12/11/16 20:12 12/11/16 21:07 12/11/16 23:10 12/11/16 23:30 Range/Units Bedside Glucose 300 294 70-99 mg/dl Activated Partial Thromboplast Time 57.2 21.0-31.0 SECONDS Partial Thromboplastin Ratio 2.2 Total Creatine Kinase 56 39-308 U/L Creatine Kinase MB 3.1 0.5-3.6 ng/ml Creatine Kinase MB Ratio 5.5 0-3.0 Troponin I 0.026 0-0.045 ng/ml Test 12/12/16 06:40 12/12/16 06:50 12/12/16 09:44 Range/Units Bedside Glucose 82 120 70-99 mg/dl Prothrombin Time 15.2 9.0-12.0 SECONDS Prothromb Time International Ratio 1.4 0.9-1.1 Activated Partial Thromboplast Time 37.8 21.0-31.0 SECONDS Partial Thromboplastin Ratio 1.5 Sodium Level 145 136-145 mmol/L Potassium Level 4.5 3.5-5.1 mmol/L Chloride Level 112 98-107 mmol/L Carbon Dioxide Level 29 21-32 mmol/L Anion Gap 4.0 3-11 mmol/L Blood Urea Nitrogen 34 7-18 mg/dl Creatinine 1.40 0.60-1.40 mg/dl Est Creatinine Clear Calc Drug Dose 47.7 ml/min Estimated GFR () 55.4 Estimated GFR (Non- 47.8 BUN/Creatinine Ratio 24.3 10-20 Random Glucose 78 70-99 mg/dl Estimated Average Glucose 226 mg/dl Hemoglobin A1c 9.5 4.5-5.6 % Calcium Level 8.5 8.5-10.1 mg/dl
[2016-12-12] MEDS: CEFAZOLIN IV 1,000 MG in DEXTROSE 5% 50ML 50 ML IV SCH ×2 (14:24→21:39)
[2016-12-12] MEDS ORDERED: WARFARIN SOD 1.25 MG TAB PO SCH (16:00)
[2016-12-12] MEDS: ACETAMINOPHEN 325 MG TAB PO PRN (18:03)
[2016-12-12] MEDS: METOPROLOL TARTRATE 50 MG TAB PO SCH (20:13)
[2016-12-12] MEDS: TAMSULOSIN HCL 0.4 MG CAP PO SCH (20:13)
[2016-12-12] MEDS: SIMVASTATIN 20 MG TAB PO SCH (20:15)
[2016-12-13] MEDS ORDERED: GLUCOSE 40% GEL 15 GM TUBE ONE (01:12)
[2016-12-13] MEDS ORDERED: GLUCOSE 10 TABS/TUBE PO PRN (01:30)
[2016-12-13] MEDS ORDERED: GLUCOSE 40% GEL 15 GM TUBE PO PRN (01:30)
[2016-12-13] MEDS ORDERED: DEXTROSE 50% 50 ML SYR IV PRN (01:30)
[2016-12-13] MEDS ORDERED: GLUCAGON FOR INJ 1 MG VIAL SQ PRN (01:30)
[2016-12-13] MEDS: LEVALBUTEROL 1.25MG/0.5ML NEB INH SCH ×2 (02:29→07:21)
[2016-12-13] MEDS: ACETAMINOPHEN 325 MG TAB PO PRN (04:03)
[2016-12-13 04:17] VITALS: BP 132/87; PULSE 106; TEMP 37.2; O2SAT 96
--- NOTE | 2016-12-13 06:46 | DIAGNOSTIC IMAGING REPORT ---
CHEST 2 VIEWS ROUTINE CLINICAL HISTORY: Chest x-ray status post pacemaker placement COMPARISON STUDY: 12/10/2016 FINDINGS: The heart is enlarged. There has been interval placement of a left subclavian dual-chamber central venous pacemaker. There is no pneumothorax. There is increasing small right pleural effusion. There are progressive right basal airspace opacities.[ IMPRESSION: 1. No evidence of pneumothorax status post pacemaker placement 2. Increasing right pleural effusion. Progressive right basilar airspace opacities. Electronically signed by: Bruno Lisa M.D. 12/13/2016 6:45 AM Dictated Date/Time: 12/13/2016 6:44 AM
[2016-12-13 07:00] VITALS: BP 133/85; PULSE 103; TEMP 36.9; O2SAT 94
[2016-12-13 07:09] LABS: INR 1.7 (0.9-1.1); PROTHROMBIN TIME (PATIENT) 19.1 SECONDS (9.0-12.0)
[2016-12-13] MEDS: TIOTROPIUM BROMIDE 5 PUFF/90 MCG INH INH SCH (07:53)
[2016-12-13] MEDS: IPRATROPIUM BROMIDE/ALBUTEROL respimat INH INH SCH ×2 (07:53→12:08)
[2016-12-13] MEDS: LOSARTAN POTASSIUM 50 MG TAB PO SCH (07:54)
[2016-12-13] MEDS: FINASTERIDE 5 MG TAB PO SCH (07:54)
[2016-12-13] MEDS: ASPIRIN 81 MG ECTAB PO SCH (07:54)
[2016-12-13] MEDS: RANITIDINE HCL 150 MG TAB PO SCH (07:54)
[2016-12-13] MEDS: FLUTICASONE PROPIONATE NA SPR 16 GM BTL NAE SCH (07:54)
[2016-12-13] MEDS: METOPROLOL TARTRATE 50 MG TAB PO SCH (07:55)
[2016-12-13] MEDS: INSULIN DETEMIR FLEXPEN/FLEX TOUCH 100 UNITS/ML 3ML SC SCH (07:56)
[2016-12-13] MEDS: INSULIN ASPART 100 UNITS/ML 3 ML PEN SQ SCH ×2 (07:56→12:07)
--- NOTE | 2016-12-13 08:02 | Cardiology Follow-Up ---
Subjective Date of Service: Dec 13, 2016. Pt evaluation today including: conversation w/ patient, physical exam, lab review, review of studies History of Present Illness Patient feeling well this morning. He did have some minor discomfort at the implant site early this morning for which she took Tylenol. Currently no pain at the implant site. He denies significant breathing trouble. He is otherwise feeling well. Social History Smoking Status: Former Smoker History of Alcohol Use: No Review of Systems Respiratory: No cough, No sputum, No wheezing, No shortness of breath, No dyspnea at rest, No hemoptysis Cardiac: No chest pain, No orthopnea, No PND, No edema, No palpitations Objective Vital Signs Past 12 Hours Date Time Temp Pulse Resp B/P (MAP) Pulse Ox O2 Delivery O2 Flow Rate FiO2 12/13/16 07:00 36.9 103 20 133/85 (101) 94 Room Air 12/13/16 04:17 37.2 106 18 132/87 (102) 96 Nasal Cannula 2.0 12/13/16 04:00 Nasal Cannula 2.0 12/13/16 00:01 Nasal Cannula 2.0 12/12/16 23:54 36.9 58 18 148/71 (96) 96 Nasal Cannula 2.0 12/12/16 20:00 Nasal Cannula 2.0 Last Recorded Weight-Kilograms: 89.100 Physical Exam Constitutional: General Apperance: heathly-appearing Level of Distress: NAD Ambulation: ambulating normally Lungs: Auscultation: breath sounds normal, no wheezing, no rales/crackles, no rhonchi Cardiovascular: Heart Auscultation: RRR, normal S1, normal S2 Peripheral Pulses: Radial Pulse: normal on the right Extremities: no cyanosis, no edema, no clubbing, no ulcers The patient is alert and oriented. Mood and affect appeared normal. He answered all questions appropriately. Evaluation the implant site reveals some moderate ecchymosis. No evidence of hematoma. No drainage. Data Laboratory Results: Last 24 Hours Test 12/12/16 09:44 12/12/16 11:26 12/12/16 16:37 12/12/16 20:19 Bedside Glucose 120 mg/dl 221 mg/dl 306 mg/dl 306 mg/dl Test 12/13/16 01:09 12/13/16 01:23 8/16/17 01:41 12/13/16 06:07 Bedside Glucose 42 mg/dl 59 mg/dl 73 mg/dl Prothrombin Time 19.1 SECONDS Prothromb Time International Ratio 1.7 Test 12/13/16 06:45 Bedside Glucose 120 mg/dl Imaging: I reviewed the source image of the chest x-ray obtained this morning. No evidence of pneumothorax. Normal lead position. Patient does have some right lung abnormality as noted on the radiology interpretation. Telemetry reviewed: Transition to atrial flutter at approximately 1:30 a.m. I performed a complete device interrogation which revealed normal sensing on both leads. Ventricular threshold was normal. Atrial threshold could not be obtained due to the atrial arrhythmia. Assessment and Plan 1. Tachy-macy syndrome: Patient underwent successful implantation of dual- chamber permanent pacemaker yesterday. No complications. Normal device function. At this point I would recommend he refrain from lifting left arm above his shoulder behind his neck for period of 6 weeks. I would also suggest keeping the wound dry and Steri-Strips intact until follow-up in the outpatient setting. 2. Atrial flutter: The intracardiac electrograms suggest the patient has an atrial flutter, although this could be atrial fibrillation. He does not currently have symptoms of the arrhythmia. His rate control is borderline on his current medical regimen, but I do believe the plan is for more aggressive rate control now that a permanent pacemaker is in place.
[2016-12-13] MEDS: DULERA~ORDER AWAITING ACTION SCH (08:46)
--- NOTE | 2016-12-13 10:42 | Cardiology Follow-Up ---
Subjective General Date of Service: Dec 13, 2016. Pt evaluation today including: conversation w/ patient, conversation w/ family , physical exam, chart review, lab review, review of studies, review of inpatient medication list History of Present Illness The patient is a 76 year old male seen in follow-up, Converted to atrial fibrillation with borderline rapid ventricular response at approximately 1 AM. INR remains subtherapeutic. Patient unaware of atrial fibrillation. Denies chest pain, palpitations, or shortness of breath. is present at bedside. Offers no complaints this time. Allergies Coded Allergies: Diltiazem (Verified Allergy, Mild, RASH, 10/11/16) Aspirin (Verified Adverse Reaction, Mild, GI SYMPTOMS, 10/11/16) Lisinopril (Verified Adverse Reaction, Unknown, cough, 10/11/16) Propoxyphene (Verified Adverse Reaction, Unknown, STOMACH UPSET DIARRHEA, 10/11/16) Social History Smoking Status: Former Smoker Hx Tobacco Use In Past Year?: No Hx Alcohol Use - Type And Amou: No Hx Substance Use - Type And Am: No Problem List Medical Problems: (1) Atrial fibrillation with RVR Status: Acute (2) Atrial flutter with rapid ventricular response Status: Acute (3) Bradycardia Status: Acute (4) Congestive heart failure Status: Acute (5) COPD exacerbation Status: Acute (6) COPD with exacerbation Status: Acute (7) Dyspnea Status: Acute (8) Pneumonia Status: Acute (9) Renal failure Status: Acute Review of Systems Respiratory: + dyspnea on exertion, No cough, No sputum, No wheezing, No shortness of breath, No dyspnea at rest, No hemoptysis Cardiac: No chest pain, No orthopnea, No PND, No edema, No claudication, No palpitations Physical Exam Vital Signs Last Vital Signs Documentation Date Time Temp Pulse Resp B/P (MAP) Pulse Ox O2 Delivery O2 Flow Rate FiO2 12/13/16 08:00 Room Air 12/13/16 07:00 36.9 103 20 133/85 (101) 94 12/13/16 04:17 2.0 Physical Exam Constitutional: General Apperance: heathly-appearing Level of Distress: NAD Ambulation: ambulating normally Head: normocephalic, atraumatic Neck: supple, trachea midline Lungs: Auscultation: breath sounds normal, no wheezing, no rales/crackles, no rhonchi Cardiovascular: Heart Auscultation: normal S1, normal S2, tachycardia, irregular rate rhythm Peripheral Pulses: Radial Pulse: normal on the right Abdomen: Bowel Sounds: normal Inspection & Palpation: soft, non-distended, no tenderness, guarding & rebound Liver: non-tender Extremities: no cyanosis, no edema, no clubbing, no ulcers Neurologic: Gait & Station: pertinent finding (no focal deficit) Cranial Nerves: grossly intact Assessment and Plan Assessment and Plan Final impression: 1. 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 Paroxysmal atrial flutter/fibrillation with borderline rate control - INR subtherapeutic - Patient asymptomatic 3. Labile HTN - controlled 4. Dyslipidemia Plan/Recommendations: Restart digoxin 125mcg on Sunday, Sunday, and Sunday. Patient will receive 250 g orally x1 now. Give 5 mg Coumadin 1 today prior to discharge. Close anticoagulation clinic follow-up recommended. Continue current dose of metoprolol, 50 mg twice daily. (Previous dose 25 mg twice daily) Pacemaker wound check in one week with threshold testing in 4 weeks. Outpatient cardiology follow-up in 1-2 weeks. Laboratory Results Last 24 Hours Test 12/12/16 11:26 12/12/16 16:37 12/12/16 20:19 12/13/16 01:09 Bedside Glucose 221 mg/dl 306 mg/dl 306 mg/dl 42 mg/dl Test 12/13/16 01:23 12/13/16 01:41 12/13/16 06:07 12/13/16 06:45 Bedside Glucose 59 mg/dl 73 mg/dl 120 mg/dl Prothrombin Time 19.1 SECONDS Prothromb Time International Ratio 1.7
[2016-12-13] MEDS ORDERED: WARFARIN SOD 5 MG TAB PO ONE (10:45)
[2016-12-13] MEDS ORDERED: DIGOXIN 0.25 MG TAB PO ONE (10:45)
[2016-12-13 11:43] VITALS: BP 141/87; PULSE 104; TEMP 36.6; O2SAT 94
--- NOTE | 2016-12-13 13:01 | Progress Note ---
Internal Med Progress Note Date of Service: Dec 13, 2016. Provider Documentation: SUBJECTIVE: Seen and examined at bedside. Had pacemaker implantation yesterday Feels well No new complaints Hypoglycemic this morning but asymptomatic Denies Chest pain, SOB, dizziness. OBJECTIVE: Vital Signs-as noted below Physical Exam: General Appearance:Moderately built and nourished, no apparent distress Head: normocephalic, Atraumatic Eyes: normal inspection, EOMI, PERRL Neck: supple, Trachea midline Chest: Left side pacemaker, surgical site in bandage Respiratory/Chest: Normal breath sounds, CTA Cardiovascular: S1, S2, No murmur Abdomen/GI:Soft, Non tender, Bowel sounds present Extremities/Musculoskelatal:normal inspection, no edema Neurologic/Psych:grossly no focal neurological deficits Skin: normal color, warm Lab data as noted below. ASSESSMENT & PLAN: Tachy-macy Syndrome s/p dual chamber PPM implantation POD # 1 CXR: no pneumothorax Continue Metoprolol at 50mg BID (Increased from 25mg BID) Restart digoxin 125mcg on Sunday, Sunday, and Sunday continue Coumadin INR Subtherapeutic. Monitor INR HYPERTENSION Continue metoprolol, losartan, digoxin monitor COPD Stable continue home inhalers CKD III Cr: 1.4 monitor renal function DM II Blood sugars elevated. A1C: 9.5 ISS, Levemir DVT Px: on warfarin Ambulate DISPOSITION Plan to discharge home today Follow up with Family Medicine Dr. Monte on 12/19/16 at 2:55pm Follow up with Cardiology on 12/27/16 at 12:25pm Follow up with Coumadin clinic as advised Seek immediate medical attention if your symptoms reoccur or worsen Get Pacemaker wound check in one week Vital Signs: Date Time Temp Pulse Resp B/P (MAP) Pulse Ox O2 Delivery O2 Flow Rate FiO2 12/13/16 11:43 36.6 104 18 141/87 (105) 94 Room Air 12/13/16 11:29 Room Air 12/13/16 11:08 112 12/13/16 08:00 Room Air 12/13/16 07:00 36.9 103 20 133/85 (101) 94 Room Air 12/13/16 04:17 37.2 106 18 132/87 (102) 96 Nasal Cannula 2.0 12/13/16 04:00 Nasal Cannula 2.0 12/13/16 00:01 Nasal Cannula 2.0 12/12/16 23:54 36.9 58 18 148/71 (96) 96 Nasal Cannula 2.0 12/12/16 20:00 Nasal Cannula 2.0 12/12/16 19:45 64 18 91 Nasal Cannula 2.0 12/12/16 19:39 36.7 52 18 155/75 (101) 90 Room Air 12/12/16 16:00 Room Air 12/12/16 15:49 37.2 60 20 180/85 (116) 96 Nasal Cannula 2.0 12/12/16 14:17 62 18 92 Nasal Cannula 2.0 Lab Results: Results Past 24 Hours Test 12/12/16 16:37 12/12/16 20:19 12/13/16 01:09 12/13/16 01:23 Range/Units Bedside Glucose 306 306 42 59 70-99 mg/dl Test 12/13/16 01:41 12/13/16 06:07 12/13/16 06:45 Range/Units Bedside Glucose 73 120 70-99 mg/dl Prothrombin Time 19.1 9.0-12.0 SECONDS Prothromb Time International Ratio 1.7 0.9-1.1
[2016-12-13] MEDS ORDERED: METO50TA16 PO (13:04)
--- NOTE | 2016-12-13 13:07 | Discharge Summary ---
Discharge Summary Date of Service Dec 13, 2016. Discharge Summary Admission Date: Dec 10, 2016 at 23:45 Discharge Date: Dec 13, 2016 Discharge Disposition: Home Principal Diagnosis: Tachybrady syndrome Procedures: CXR: 1. No evidence of pneumothorax status post pacemaker placement 2. Increasing right pleural effusion. Progressive right basilar airspace opacities. s/p dual chamber PPM implantation Consultations: Cardiology Pending Studies/Follow-Up: .Follow up with Family Medicine Dr. Monte on 12/19/16 at 2:55pm Follow up with Cardiology on 12/27/16 at 12:25pm Follow up with Coumadin clinic as advised Seek immediate medical attention if your symptoms reoccur or worsen Get Pacemaker wound check in one week Medication Reconciliation New Medications: Metoprolol Tartrate (Lopressor) (Lopressor) 50 Mg Tab 50 MG PO BID for 30 Days, #60 TAB 1 Refill Continued Medications: Aspirin (Aspirin EC Low Dose) 81 Mg Ectab 81 MG PO QAM for 30 Days, #30 TABS Digoxin (Digoxin) 0.125 Mg Tab 0.125 MG PO MoWeFr for 30 Days, #12 TAB Finasteride (Proscar) 5 Mg Tab 5 MG PO DAILY, TAB Fluticasone Propionate (Fluticasone Propionate) 120 Sprays/6000 Mcg Inha 2 SPRAYS ALDEN DAILY, #16 Furosemide (Lasix) 20 Mg Tab 20 MG PO DAILY Insulin Aspart (Novolog Flexpen) 100 Units/Ml Inj 1 DOSE SQ ACHS SLIDING SCALE. APPROX 10UNITS BID Insulin Detemir (Levemir) 100 Units/Ml Inj SQ UD 14 units in am and 8 units in pm Ipratropium-Albuterol (Duoneb) 3 Ml Nebu 1 TREATMENT INH Q4H PRN for PRN, INHA Ipratropium-Albuterol (Combivent Respimat) 1 Aer Aer 1 PUFF PO QID Levalbuterol (Levalbuterol) 1.25 Mg/0.5 Ml Nebu 1.25 MG INH Q6R for 10 Days, #40 UNIT 2 Refills Losartan Potassium (Losartan Potassium) 50 Mg Tab 50 MG PO DAILY Mometasone Furoate-Formoterol (Dulera 200/5 Mcg) 1 Aer Aer 2 PUFFS INH BID for 30 Days, #13 GM 3 Refills Nitroglycerin (Nitrostat) 0.4 Mg Sub 0.4 MG UT PRN Prednisone (Prednisone) 5 Mg Tab 7.5 MG PO DAILY Ranitidine HCl (Ranitidine HCl) 150 Mg Tab 1 TAB PO BID, #180 Simvastatin (Zocor) 20 Mg Tab 20 MG PO QPM, 0 Refills take with supper Tamsulosin Hcl (Flomax) 0.4 Mg Cap 0.4 MG PO HS Tiotropium Salt Flat (Spiriva Handihaler) 30 Puff/540 Mcg Aerp 2 PUFFS INH DAILY Warfarin Sod (Jantoven) 2.5 Mg Tab 1.25 MG PO DIRECTED, TAB 1/2 TABLET ON SUNDAY,SUNDAY,SUNDAY,SUNDAY Warfarin Sod (Jantoven) 2.5 Mg Tab 2.5 MG PO DIRECTED, TAB WHOLE TABLET ON SUNDAY,SUNDAY & SUNDAY Zolpidem Tartrate (Ambien) 5 Mg Tab 5 MG PO HS PRN for INSOMNIA Discontinued Medications: Metoprolol Tartrate (Lopressor) 25 Mg Tab 25 MG PO BID for 30 Days, #60 TAB Admission Information HPI (per Admitting provider): CHIEF COMPLAINT: Bradyarrhythmia noted since 5:30 p.m. HISTORY OF PRESENT COMPLAINT: He is a 76-year-old male with significant past medical history, including diabetes type 1, COPD, chronic kidney disease, atrial fibrillation, hyperlipidemia, hypertension, obstructive uropathy; apparently, has noted to have bradycardia from around 5:30 p.m. today. He has an oximeter to see saturation and also pulse rate at home. He had his supper at around 5:00 p.m. and then, he checked his pulse rate, it was 135. It was not that high, according to him. He went out for a walk and at around 5:30, he noted that the oximeter is reading a heart rate of 44. He did not have any symptoms whatsoever. From that point, he came to the Emergency Room for further evaluation. No fever, no chills, or rigors. No cough or phlegm. No chest pain, no palpitation. No abdominal pain, nausea or vomiting. No increasing swelling of the legs and no numbness or tingling in the extremities. In the ER, he was noted to have bradycardia around 47 and his blood work came out to be unremarkable, except he looked a little bit dry and his INR was 1.4. From that point, he was admitted to telemetry unit for continuation of care. Physical Exam (per Admitting): PHYSICAL EXAMINATION: GENERAL: On examination in the Emergency Room, he was not having any acute distress. VITAL SIGNS: Temperature 36.4, pulse of 42, blood pressure of 107/53, saturation 95% on room air. HEENT: Unremarkable. NECK: Supple, no JVD, no bruit. CHEST: Decreased breath sounds, but no wheezing and/or crackles. HEART: S1, S2 regular with a 2/6 systolic murmur. ABDOMEN: Soft, benign, nontender, no organomegaly. EXTREMITIES: 1+ edema bilaterally, seems to be chronic. MUSCULOSKELETAL: No acute arthritis in any joint. CENTRAL NERVOUS SYSTEM: He was alert, awake, oriented x3. No focal sensory and/or motor deficit appreciated. Hospital Course Tachy-macy Syndrome s/p dual chamber PPM implantation POD # 1 CXR: no pneumothorax Continue Metoprolol at 50mg BID (Increased from 25mg BID) Restart digoxin 125mcg on Sunday, Sunday, and Sunday continue Coumadin INR Subtherapeutic. Monitor INR HYPERTENSION Continue metoprolol, losartan, digoxin monitor COPD Stable continue home inhalers CKD III Cr: 1.4 monitor renal function DM II Blood sugars elevated. A1C: 9.5 ISS, Levemir DVT Px: on warfarin Ambulate DISPOSITION Plan to discharge home today Follow up with Family Medicine Dr. Monte on 12/19/16 at 2:55pm Follow up with Cardiology on 12/27/16 at 12:25pm Follow up with Coumadin clinic as advised Seek immediate medical attention if your symptoms reoccur or worsen Get Pacemaker wound check in one week Total time spent on discharge = 32 minutes This includes examination of the patient, discharge planning, medication reconciliation, and communication with other providers. Discharge Instructions Discharge Instructions Date of Service Dec 13, 2016. Admission Reason for Admission: Atrial Fibrillation With Slow Ventricular Response Discharge Discharge Diagnosis / Problem: Tachybrady syndrome Discharge Goals Goal(s): Decrease discomfort, Improve function Activity Recommendations Activity Limitations: resume your previous activity Exercise/Sports Limitations: as tolerated .Follow up with Family Medicine Dr. Monte on 12/19/16 at 2:55pm Follow up with Cardiology on 12/27/16 at 12:25pm Follow up with Coumadin clinic as advised Seek immediate medical attention if your symptoms reoccur or worsen Get Pacemaker wound check in one week Current Hospital Diet Patient's current hospital diet: Diabetes Type 2 Diet, AHA Diet (Heart Healthy) Discharge Diet Recommended Diet: AHA Diet (Heart Healthy), Diabetes Type 2 Diet Pending Studies Studies pending at discharge: no Laboratory Results Hemoglobin A1c Test 12/12/16 06:50 Range/Units Estimated Average Glucose 226 mg/dl Hemoglobin A1c 9.5 H 4.5-5.6 % Medical Emergencies . Who to Call and When: Medical Emergencies: If at any time you feel your situation is an emergency, please call 911 immediately. . Non-Emergent Contact Non-Emergency issues call your: Primary Care Provider, Crm Administrator Call Non-Emergent contact if: you have a fever, your pain is not controlled, your pain is worsening, your pain is unusual for you, wound has increased drainage, wound has increased redness, wound has increased pain, you have any medication questions If your symptoms reoccur or worsen . . "Provider Documentation" section prepared by Syed Cage. . VTE Core Measure Inpt VTE Proph given/why not?: Warfarin (Coumadin) <Electronically signed by Syed Cage MD> Signed: 12/13/16 [id number] Signed: The status of this report is Signed * If report status is Draft, the document has not been finalized by the responsible provider.
[2016-12-13 13:25] VITALS: BP 141/87; PULSE 104; TEMP 36.6; O2SAT 94
== END 2016-12-13 13:55 | disposition home or self-care (01) | DRG 243 ==
LOC: C.EDB 21:27 → C.2T 23:45 → ENRESERV 23:51 → C.2T 12-12 09:07
PROVIDERS: ADMIT Internal Medicine; ATTEND Internal Medicine
PROC: 02HK3JZ Insertion of Pacemaker Lead into Right Ventricle, Percutaneous Approach (ICD-10-PCS; principal; 2016-12-12 07:13)
PROC: 0JH606Z Insertion of Pacemaker, Dual Chamber into Chest Subcutaneous Tissue and Fascia, Open Approach (ICD-10-PCS; principal; 2016-12-12 07:13)
PROC: 02H63JZ Insertion of Pacemaker Lead into Right Atrium, Percutaneous Approach (ICD-10-PCS; principal; 2016-12-12 07:13)
DX: I49.5 Sick sinus syndrome (principal); I48.92 Unspecified atrial flutter; I48.0 Paroxysmal atrial fibrillation; I13.10 Hypertensive heart and chronic kidney disease without heart failure, with stage 1 through stage 4 chronic kidney disease, or unspecified chronic kidney disease; J44.9 Chronic obstructive pulmonary disease, unspecified; N18.3 Chronic kidney disease, stage 3 (moderate); E10.22 Type 1 diabetes mellitus with diabetic chronic kidney disease; N40.0 Benign prostatic hyperplasia without lower urinary tract symptoms; E78.5 Hyperlipidemia, unspecified; K21.9 Gastro-esophageal reflux disease without esophagitis; Z51.81 Encounter for therapeutic drug level monitoring; Z79.899 Other long term (current) drug therapy; Z79.01 Long term (current) use of anticoagulants; Z79.82 Long term (current) use of aspirin; Z87.891 Personal history of nicotine dependence; Z83.3 Family history of diabetes mellitus; Z82.49 Family history of ischemic heart disease and other diseases of the circulatory system; Z84.1 Family history of disorders of kidney and ureter; Z82.3 Family history of stroke

== ENCOUNTER → 2016-12-14 | Outpatient (CLI) | payer BC ==
[~2016-12-14] MED LIST changes: -BENZ100C7 PO; +FINA5TAB4 PO; -LPR25 PO; +METO50TA16 PO; +MOME200A INH
--- NOTE | 2016-12-14 13:55 | SWALLOWING EVALUATION ---
HISTORY: This 76 year-old man, from home, was referred for a VFSS at [facility]. Pt. states that he recently had this test completed -which is correct 10/05/16 and that they didn't find anything wrong however his dr. continues to think he is aspirating due to the condition of his lungs. Results of the VFSS 10-05-16 recommended regular diet as tolerated. CXR 11-13-16 showed small pleural effusions and patchy bibasilar opacities. Currently the patient's diet level is regular with thins. PROCEDURE: The patient was seen in the Radiology Department of [facility] for the VFSS. Cursory examination of the oral cavity revealed upper and lower dentures. Movement of the articulators was WNL. The patient was seated on a standard chair and was viewed in both the Anterior-Posterior (A-P) and Lateral planes. Volitional phonation exercises completed in the A-P plane revealed bilateral vocal fold movement and vocal intensity within functional limits. In the lateral plane, the patient was given the following barium-infused boluses: 1 tsp thin barium with oral hold 1x, self presented single cup swallow-thin barium 2x, self presented single cup swallow-thin barium - with chin tuck 2x, self presented serial cup swallow 2x. 1 tsp nectar thick barium with oral hold 1x, self presented single cup swallow- nectar thick barium 1x, self presented serial cup swallows 1x. 1 tsp barium pudding-self presented 1x. Cracker with barium paste 1x. In the A-P view, pt was given 1 tsp barium pudding with esophageal scan. RESULTS: Oral Phase: Pt. had no labial escape of any food or liquid items presented. Pt. demonstrated a cohesive bolus between tongue and palatal seal. Timely and efficient chewing and mashing was observed with all consistencies as well as brisk tongue motion and complete oral clearance. Initiation of pharyngeal swallow began with bolus head at posterior angle of hyoid excursion. Overall WFL for oral phase of swallow. Pharyngeal Phase: Soft Palate Elevation was complete for all boluses. Laryngeal elevation was slightly reduced however complete movement of thyroid cartilage with complete approximation of arytenoids to epiglottic base. Anterior Hyoid excursion was also slightly reduced with complete epiglottic inversion. Laryngeal Vestibular closure was complete for all boluses with the exception of initial 3 presentations. On all additional presentations no air or barium noted in laryngeal vestibule. Tongue base retraction was noted with all consistencies and tongue base made effective contact with posterior pharyngeal wall throughout study. Pharyngeal residue was observed with initial 3 presentations, after that no pharyngeal residue remained throughout the study resulting in complete pharyngeal clearance of remaining tested items. Initial presentation: thins via tsp resulted in penetration with redirection and no aspiration Second presentation: thins via cup drink resulted in penetration with redirection and no aspiration Third presentation: thins via cup with chin tuck resulted in penetration with redirection and no aspiration. Fourth presentation: thins via cup with chin tuck and oral hold resulted in no penetration and no aspiration All additional items tested resulted in NO penetration or aspiration. At the conclusion of the testing SHEEP SHEARER gave pt. remaining thin barium in cup and requested that he complete sequential swallows to finish contents. Pt. took large gulps and presented with a posterior head position however NO penetration and NO aspiration occurred. Esophageal Phase: Opening and closing of the UES was timely and efficient. SUMMARY/RECOMMENDATIONS: Overall pt. presents with mild pharyngeal dysphagia characterized by inconsistent penetration of thin liquids. NO ASPIRATION was observed throughout this study. Recommendin. Regular diet with thin liquids. NO straws 2. Chin tuck with oral hold if pt. notices s/s of aspiration 3. Safe swallow strategies (SMALL sips, SMALL bites, slow rate) Pt. was fully educated on s/s of aspiration as well as rationale for chin tuck. He was given verbal and visual instruction on this however retention and comprehension are questionable. He will likely not use the chin tuck method independently. All results and recommendations were discussed with the pt. at length. Thank you for referral of this patient. Please contact me at if any additional information is needed.
--- NOTE | 2016-12-14 14:41 | DIAGNOSTIC IMAGING REPORT ---
VIDEO SWALLOW HISTORY: Aspiration R93.8 Abnormal chest [id number] Aspiration, chronic pulmonary TECHNIQUE: Video fluoroscopic evaluation of swallowing was performed in the AP and lateral projections by the speech pathology staff. The patient is fed nectar-thick and thin liquid barium, a barium coated wafer, and barium pudding. FLUOROSCOPY TIME: 3 minutes. COMPARISON STUDY: None FINDINGS: No definite evidence for aspiration. Trace penetration with thin liquids. IMPRESSION: 1. No aspiration identified. Trace penetration with thin liquids 2. Please see the speech pathologist report for detailed findings and recommendations. The above report was generated using voice recognition software. It may contain grammatical, syntax or spelling errors. Electronically signed by: Kg Pablo M.D. 12/14/2016 2:40 PM Dictated Date/Time: 12/14/2016 2:39 PM
== END | disposition home or self-care (01) ==
LOC: C.RAD 12:51
PROVIDERS: ATTEND Internal Medicine Critical Care Medicine
DX: R93.8 Abnormal findings on diagnostic imaging of other specified body structures (principal); T17.908A Unspecified foreign body in respiratory tract, part unspecified causing other injury, initial encounter; X58.XXXA Exposure to other specified factors, initial encounter

== ENCOUNTER 2017-08-16 22:16 | Inpatient (IN) | payer OTHER ==
[~2017-08-16] VITALS: Ht 182.9 cm; Wt 90.2 kg
[~2017-08-16 22:16] MED LIST changes: -ASPEC81 PO; +ASPI-320 PO
[2017-08-16] MEDS ORDERED: ALBUT/IPRATROP 3MG/0.5MG NEB 3 ML VIAL INH STA (22:34)
[2017-08-16] MEDS ORDERED: OPTIRAY 320 IV PRN (22:45)
[2017-08-16 23:03] LABS: BASO % 0.1 %; BASO ABS # 0.01 K/uL (0-0.2); EOS % 0.1 %; EOS ABS # 0.01 K/uL (0-0.5); HEMATOCRIT 36.1 % (42-52); HEMOGLOBIN 11.8 g/dL (14.0-18.0); IG# 0.03 K/uL (0.00-0.02); LYMPH % 11.9 %; LYMPH ABS # 1.14 K/uL (1.2-3.4); MEAN CELL VOLUME 89.4 fL (80-100); MEAN CORPUSCULAR HEMOGLOBIN 29.2 pg (25-34); MEAN CORPUSCULAR HGB CONC 32.7 g/dl (32-36); MEAN PLATELET VOLUME 9.2 fL (7.4-10.4); MONO % 5.8 %; MONO ABS # 0.56 K/uL (0.11-0.59); NEUT % 81.8 %; NEUT ABS # 7.86 K/uL (1.4-6.5); PLATELET COUNT 171 K/uL (130-400); RED CELL DISTRIBUTION WIDTH CV 14.3 % (11.5-14.5); WHITE BLOOD COUNT 9.61 K/uL (4.8-10.8)
[2017-08-16 23:13] LABS: INR 1.6 (0.9-1.1); PTT PATIENT 44.3 SECONDS (21.0-31.0)
[2017-08-16 23:20] LABS: ALBUMIN 2.8 gm/dl (3.4-5.0); CALCIUM 8.6 mg/dl (8.5-10.1); CREATININE 1.71 mg/dl (0.60-1.40); POTASSIUM 4.5 mmol/L (3.5-5.1)
[2017-08-16 23:55] LABS: TOTAL PROTEIN 6.4 gm/dl (6.4-8.2)
[2017-08-17] VITALS (9 sets, daily range): BP systolic 121–174; BP diastolic 71–87; PULSE 62–136; TEMP 36.3–37.5; O2SAT 90–97; BMI 27.5; BMI 28.3
--- NOTE | 2017-08-17 00:04 | EMERGENCY ROOM VISIT NOTE ---
History Report prepared by Tamiko: Junior Hess Under the Supervision of: Dr. Arturo Curran M.D. First contact with patient: 22:29 Chief Complaint: SHORTNESS OF BREATH Stated Complaint: CAN'T BREATHE History of Present Illness The patient is a 77 year old male who presents to the Emergency Room with complaints of constant SOB beginning two weeks ago. The patient states that he has had a productive cough for the last three weeks. He notes that he is feeling more SOB with the cough. He reports that he had an appointment with his PCP for tomorrow, but states that his symptoms were too severe to wait. He notes that he had a chest X-Ray done three weeks ago that was negative for pneumonia. He denies any abdominal pain, fever, and known sick contacts, but complains of fatigue. He reports that he has a history of COPD and diabetes, and states that he has had ongoing lung problems for the last few years. The patient notes that he also has a pacemaker. He reports that he wears oxygen at night and takes Coumadin and prednisone daily. Per nursing note, the patient's oxygen saturation was 90%. Source of History: patient, other (nursing note) Onset: two weeks ago Position: chest Symptom Intensity: oxygen saturation of 90% Quality: other (SOB) Timing: constant Associated Symptoms: + cough (productive), No fevers, No abdominal pain Note: The patient also complains of fatigue. Review of Systems See HPI for pertinent positives & negatives. A total of 10 systems reviewed and were otherwise negative. Past Medical & Surgical Medical Problems: (1) Asbestos exposure (2) Atrial fibrillation with slow ventricular response (3) BPH (benign prostatic hypertrophy) (4) Bradyarrhythmia (5) CKD (chronic kidney disease) stage 3, GFR 30-59 ml/min (6) COPD (chronic obstructive pulmonary disease) (7) COPD exacerbation (8) Diabetes type I (9) Dyslipidemia (10) History of basal cell carcinoma (11) Hypertension (12) Pacemaker (13) Paroxysmal atrial fibrillation (14) Pleural plaque (15) Rapid atrial fibrillation Surgical Problems: (1) H/O nasal polypectomy (2) History of inguinal hernia repair (3) History of surgery of head Family History Cancer MOTHER Diabetes mellitus BROTHER Gallbladder disease Heart disease Hypertension Kidney disease Kidney stones Social History Smoking Status: Never Smoker Alcohol Use: none Drug Use: none Marital Status: Housing Status: lives with significant other Occupation Status: retired Current/Historical Medications Scheduled Aspirin (Aspirin Ec), 81 MG PO DAILY Digoxin (Digoxin), 0.125 MG PO 3XWK Finasteride (Proscar), 5 MG PO DAILY Fluticasone Propionate (Fluticasone Propionate), 2 SPRAYS ALDEN DAILY Furosemide (Lasix), 20 MG PO DAILY Insulin Aspart (Novolog Flexpen), 1 DOSE SQ ACHS Insulin Detemir (Levemir), 14 UNITS SQ QAM Insulin Detemir (Levemir), 8 UNITS SQ QPM Ipratropium-Albuterol (Combivent Respimat), 1 PUFF PO QID Levofloxacin (Levaquin), 500 MG PO DAILY/PRN Metoprolol Tartrate (Lopressor) (Lopressor), 50 MG PO BID Mometasone Furoate-Formoterol (Dulera 200/5 Mcg), 2 PUFFS INH BID Nitroglycerin (Nitrostat), 0.4 MG UT PRN Prednisone (Prednisone), 5 MG PO DAILY Ranitidine HCl (Ranitidine HCl), 150 MG PO BID Simvastatin (Zocor), 20 MG PO QPM Tamsulosin Hcl (Flomax), 0.4 MG PO HS Valsartan (Diovan), 80 MG PO DAILY Warfarin Sod (Jantoven), 1.25 MG PO DIRECTED Warfarin Sod (Jantoven), 2.5 MG PO DIRECTED Scheduled PRN Levalbuterol Hcl (Levalbuterol), 0.5 ML INH Q6H PRN for SOB/Wheezing Zolpidem Tartrate (Ambien), 5 MG PO HS PRN for INSOMNIA Allergies Coded Allergies: Diltiazem (Verified Allergy, Mild, RASH, 10/11/16) Aspirin (Verified Adverse Reaction, Mild, GI SYMPTOMS, 10/11/16) Lisinopril (Verified Adverse Reaction, Unknown, cough, 10/11/16) Propoxyphene (Verified Adverse Reaction, Unknown, STOMACH UPSET DIARRHEA, 10/11/16) Physical Exam Vital Signs Date Time Temp Pulse Resp B/P (MAP) Pulse Ox O2 Delivery O2 Flow Rate FiO2 08/17/17 00:24 63 22 161/78 93 Nasal Cannula 2.0 08/16/17 23:07 68 22 155/82 93 Nasal Cannula 2.0 08/16/17 23:07 74 08/16/17 22:57 97 Nasal Cannula 2.0 08/16/17 22:57 97 Nasal Cannula 2.0 08/16/17 22:57 Nasal Cannula 2.0 98 08/16/17 22:22 37.5 65 16 185/82 90 Room Air Physical Exam GENERAL: Patient is in no acute distress. HEENT: No acute trauma, normocephalic atraumatic, mucous membranes moist, no nasal congestion, no scleral icterus. NECK: No stridor, no adenopathy, no meningismus, trachea is midline. LUNGS: Decreased breath sounds bilaterally, clear breath sounds, breath sounds equal, no respiratory distress. HEART: Somewhat irregular rhythm, no murmurs, regular rate. ABDOMEN: Soft, nontender, bowel sounds positive, no hernias, no peritonitis. EXTREMITIES: No cyanosis, full range of motion of all the joints without pain or difficulty, no signs for acute trauma, mild bilateral pedal edema. NEUROLOGIC: Oriented x 3, no acute motor or sensory deficits, no focal weakness. SKIN: No rash, no jaundice, no diaphoresis. Medical Decision & Procedures ER Provider Diagnostic Interpretation: Radiology results as stated below per my review and radiologist interpretation: CT CHEST Without Contrast: Compared to 12/03/15 Dependent bibasilar atelectasis. However, would question superimposed infection/ pneumonitis. Correlate for aspiration. Coronary atherosclerosis with pacer device. Radiologist: Yohannes Rios M.D. Laboratory Results 08/16/17 22:45 Red Blood Count 4.04, Mean Corpuscular Volume 89.4, Mean Corpuscular Hemoglobin 29.2, Mean Corpuscular Hemoglobin Concent 32.7, Mean Platelet Volume 9.2, Neutrophils (%) (Auto) 81.8, Lymphocytes (%) (Auto) 11.9, Monocytes (%) (Auto) 5.8, Eosinophils (%) (Auto) 0.1, Basophils (%) (Auto) 0.1, Neutrophils # (Auto) 7.86, Lymphocytes # (Auto) 1.14, Monocytes # (Auto) 0.56, Eosinophils # (Auto) 0.01, Basophils # (Auto) 0.01 08/16/17 22:45 Test 08/16/17 22:45 08/16/17 22:49 08/17/17 00:44 White Blood Count 9.61 K/uL (4.8-10.8) Red Blood Count 4.04 M/uL (4.7-6.1) Hemoglobin 11.8 g/dL (14.0-18.0) Hematocrit 36.1 % (42-52) Mean Corpuscular Volume 89.4 fL (80-100) Mean Corpuscular Hemoglobin 29.2 pg (25-34) Mean Corpuscular Hemoglobin Concent 32.7 g/dl (32-36) Platelet Count 171 K/uL (130-400) Mean Platelet Volume 9.2 fL (7.4-10.4) Neutrophils (%) (Auto) 81.8 % Lymphocytes (%) (Auto) 11.9 % Monocytes (%) (Auto) 5.8 % Eosinophils (%) (Auto) 0.1 % Basophils (%) (Auto) 0.1 % Neutrophils # (Auto) 7.86 K/uL (1.4-6.5) Lymphocytes # (Auto) 1.14 K/uL (1.2-3.4) Monocytes # (Auto) 0.56 K/uL (0.11-0.59) Eosinophils # (Auto) 0.01 K/uL (0-0.5) Basophils # (Auto) 0.01 K/uL (0-0.2) RDW Standard Deviation 47.0 fL (36.4-46.3) RDW Coefficient of Variation 14.3 % (11.5-14.5) Immature Granulocyte % (Auto) 0.3 % Immature Granulocyte # (Auto) 0.03 K/uL (0.00-0.02) Prothrombin Time 17.1 SECONDS (9.0-12.0) Prothromb Time International Ratio 1.6 (0.9-1.1) Activated Partial Thromboplast Time 44.3 SECONDS (21.0-31.0) Partial Thromboplastin Ratio 1.7 Anion Gap 6.0 mmol/L (3-11) Est Creatinine Clear Calc Drug Dose 41.9 ml/min Estimated GFR () 43.2 Estimated GFR (Non- 37.3 BUN/Creatinine Ratio 15.1 (10-20) Calcium Level 8.6 mg/dl (8.5-10.1) Magnesium Level 1.7 mg/dl (1.8-2.4) Total Bilirubin 0.9 mg/dl (0.2-1) Aspartate Amino Transf (AST/SGOT) 15 U/L (15-37) Alanine Aminotransferase (ALT/SGPT) 24 U/L (12-78) Alkaline Phosphatase 75 U/L (45-117) Total Protein 6.4 gm/dl (6.4-8.2) Albumin 2.8 gm/dl (3.4-5.0) Globulin 3.6 gm/dl (2.5-4.0) Albumin/Globulin Ratio 0.8 (0.9-2) Thyroid Stimulating Hormone (TSH) 0.894 uIu/ml (0.300-4.500) Digoxin Level 0.6 ng/ml (0.8-2.0) Influenza Type A (RT-PCR) Neg for Influ A (NEG) Influenza Type B (RT-PCR) Neg for Influ B (NEG) Laboratory results reviewed by me. Medications Administered Medications (Trade) Dose Ordered Sig/Bertha Route Start Time Stop Time Status Last Admin Dose Admin Albuterol/ Ipratropium (Duoneb) 3 ml NOW STAT INH 08/16/17 22:34 08/16/17 22:40 DC 08/16/17 22:59 3 ML Magnesium Sulfate (Magnesium Sulfate 1gm / D5W) 1 gm NOW STAT IV 08/17/17 00:12 08/17/17 00:14 DC 08/17/17 00:19 1 GM Ceftriaxone Sodium (Rocephin Inj) 1 gm NOW STAT IV 08/17/17 00:15 08/17/17 00:16 DC 08/17/17 00:23 1 GM ECG Per My Interpretation Indication: SOB/dyspnea Rate (beats per minute): 65 Rhythm: other (atrial paced) Findings: other (PACs, baseline artifact present, nonspecific ST change, no ST elevation) ED Course 2229: The patient was evaluated in room A2. A complete history and physical exam was performed. 2234: DuoNeb 3ml INH 0012: Magnesium Sulfate 1gm IV 0015: Rocephin Inj 1gm IV 0018: I reevaluated and updated the patient. 0021: Upon reexamination the patient is stable. I discussed results and treatment plan with the patient. He verbalizes agreement and understanding. I spoke with Dr. Trisatn of the [facility]. We discussed the patient's results and findings. The patient will be evaluated by Dr. Tristan for further management. Medical Decision Differential diagnoses include: COPD exacerbation, FL, pneumonia, bronchitis, influenza, anemia, electrolyte abnormalities, and PE. There is no leukocytosis or worrisome anemia. Renal panel testing shows renal insufficiency which is baseline for the patient. Magnesium was low at 1.7. No hepatitis. INR was elevated but somewhat subtherapeutic for someone using Coumadin. EKG showed a paced rhythm, no obvious ischemia. Cardiac troponin was slightly elevated consistent with cardiac strain or injury. Chest CT showed atelectasis and/or pneumonia at the bases. No pneumothorax. Blood cultures are pending. Influenza testing was negative. Digoxin level was not toxic. The patient was in a euthyroid state. He received a dose of IV magnesium. Patient received a DuoNeb, he was given IV ceftriaxone for antibiotic coverage. The patient is requiring oxygen, he appears to have pneumonia on chest CT, his magnesium is low, he has an elevated Troponin. He has failed outpatient treatment. I do think a hospital stay is warranted. I spoke to the patient and case management. The on-call hospitalist was consulted. Medication Reconcilliation Current Medication List: was personally reviewed by me Blood Pressure Screening Patient's blood pressure: Elevated blood pressure Elevated blood pressure will be monitored by hospitalist. Consults Time Called: 16 [facility] Call: [phone] Discussed the patient's case. The patient will be evaluated for further management. Impression Primary Impression: SOB (shortness of breath) Additional Impressions: Pneumonia Elevated troponin Failure of outpatient treatment Scribe Attestation The scribe's documentation has been prepared under my direction and personally reviewed by me in its entirety. I confirm that the note above accurately reflects all work, treatment, procedures, and medical decision making performed by me. Departure Information Dispostion Being Evaluated By Hospitalist Referrals Kg Monte M.D. (PCP) Patient Instructions [facility] Problem Qualifiers
[2017-08-17] MEDS ORDERED: MAGNESIUM SULFATE 1GM / D5W 1 GM BAG IV STA (00:12)
[2017-08-17] MEDS ORDERED: CEFTRIAXONE SOD INJ 1 GM ADDVIAL IV STA (00:15)
[2017-08-17] MEDS ORDERED: ASPI81TA28 PO (00:27)
[2017-08-17] MEDS ORDERED: LNX125 PO (00:28)
[2017-08-17 00:30] LABS: INFLUENZA A PCR Neg for Influ A (NEG); INFLUENZA B PCR Neg for Influ B (NEG)
[2017-08-17] MEDS ORDERED: LVMI SQ ×2 (00:41→00:42)
[2017-08-17] MEDS ORDERED: METO50TA16 PO (00:46)
[2017-08-17] MEDS ORDERED: DVN80 PO (00:54)
[2017-08-17] MEDS ORDERED: LEVO-366 PO (00:56)
[2017-08-17] MEDS ORDERED: LEVA1.255 INH (00:58)
[2017-08-17] MEDS ORDERED: FUROSEMIDE INJ 60 MG in SYRINGE 0 ML IV STA (01:32)
[2017-08-17] MEDS ORDERED: FUROSEMIDE 40 MG/4 ML VIAL IV STA (01:43)
[2017-08-17] MEDS ORDERED: TRAMADOL HCL 50 MG TAB PO PRN (01:45)
[2017-08-17] MEDS ORDERED: HYDROmorphone INJ 0.5 MG/0.5 ML SYR IV PRN (01:45)
[2017-08-17] MEDS ORDERED: DEXTROSE 50% 50 ML SYR IV PRN (01:45)
[2017-08-17] MEDS ORDERED: GLUCOSE 10 TABS/TUBE PO PRN (01:45)
[2017-08-17] MEDS ORDERED: MAGNESIUM SULFATE 1GM / D5W 1 GM in PREMIXED IN D5W 100 ML IV ONE (01:45)
[2017-08-17] MEDS ORDERED: METHYLPREDNISOLONE IV 20 MG in SYRINGE 0 ML IV ONE (01:45)
[2017-08-17] MEDS ORDERED: LEVALBUTEROL/IPRATROPIUM NEB INH PRN (01:45)
[2017-08-17] MEDS ORDERED: NITROGLYCERIN 0.4 MG SL PER TAB CHARGE SL PRN (01:45)
[2017-08-17] MEDS ORDERED: ACETAMINOPHEN 325 MG TAB PO PRN (01:45)
[2017-08-17] MEDS ORDERED: GLUCAGON FOR INJ 1 MG VIAL SQ PRN (01:45)
[2017-08-17] MEDS ORDERED: GLUCOSE 40% GEL 15 GM TUBE PO PRN (01:45)
[2017-08-17] MEDS ORDERED: PROCHLORPERAZINE INJ 5 MG in SYRINGE 4 ML IV PRN (01:45)
[2017-08-17] MEDS ORDERED: INSULIN ASPART 100 UNITS/ML 3 ML PEN SC STA (01:52)
[2017-08-17] MEDS ORDERED: DOXYCYCLINE IV 100 MG in DEXTROSE 5% 100ML 100 ML IV STA (01:54)
[2017-08-17] MEDS ORDERED: WARFARIN SOD 5 MG TAB PO STA (01:55)
[2017-08-17] MEDS ORDERED: INSULIN DETEMIR FLEXPEN/FLEX TOUCH 100 UNITS/ML 3ML SC STA (01:59)
[2017-08-17] MEDS ORDERED: IPRATROPIUM BROMIDE NEB SOLN 0.02% 2.5 ML VIAL INH PRN (02:15)
[2017-08-17] MEDS ORDERED: LEVALBUTEROL 1.25MG/0.5ML NEB INH PRN (02:15)
[2017-08-17] MEDS: LEVALBUTEROL 1.25MG/0.5ML NEB INH SCH ×4 (03:00→19:11)
[2017-08-17] MEDS: IPRATROPIUM BROMIDE NEB SOLN 0.02% 2.5 ML VIAL INH SCH ×4 (03:00→19:11)
[2017-08-17] MEDS ORDERED: LEVALBUTEROL/IPRATROPIUM NEB INH SCH (03:00)
--- NOTE | 2017-08-17 04:53 | HISTORY & PHYSICAL EXAMINATION ---
DATE OF ADMISSION: 08/17/2017 CHIEF COMPLAINT: Cough, shortness of breath. HISTORY OF PRESENT ILLNESS: History obtained from patient, daughter and records. Medical history is significant for sick sinus syndrome sp PPM on Coumadin, chronic respiratory failure secondary to steroid dependent COPD, ILD on home O2 at night, past tobacco abuse, asbestosis as per records, DM1 as per records, hypertension, past tobacco use, chronic anemia (baseline hemoglobin 11), CKD (baseline creatinine of 1.7-2) Recent confinement, last November 2016 for tachybrady syndrome status post pacemaker placement. metoprolol increased from 25 to 50 mg PO BID upon discharge. Patient thinks he is more tired with higher metoprolol dose. He also thinks home valsartan may be adding to his fatigue symptoms after reading drug literature. About 3 weeks ago, patient had worsening cough symptoms productive of yellow sputum, wheezing, chest tightness symptoms. No improvement with prednisone and Levaquin rescue kit. Denies aspiration although outpatient pulmonology notes document aspiration risk. Patient also noted weight gain of about 10-20 pounds last month. Weight currently up to 210 lbs from usual 190s as per patient. Some leg swelling. No chest pain. Brought to the ER by the daughter. Patient received Levaquin, nebs for possible pneumonia. MEDICAL HISTORY: As above. SURGERIES: He has had a pacemaker placement, polypectomy, hernia surgery, prostate surgery, scalp surgery, hernia repair. HOME MEDICATIONS: Include aspirin, benzonatate, cyclobenzaprine, digoxin, finasteride, fluticasone, furosemide, levalbuterol, metoprolol 50 mg BID, Nitrostat, prednisone daily, simvastatin, tamsulosin, tramadol, valsartan, Coumadin, zolpidem. ALLERGIES: DILTIAZEM, PROPOXYPHENE, LISINOPRIL. FAMILY HISTORY: Diabetes, heart disease. PERSONAL AND SOCIAL HISTORY: Past tobacco abuse. No chronic intake of alcohol beverages. 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 His is currently undergoing rehab for orthopedic surgery. REVIEW OF SYSTEMS: As per HPI. All 10 systems reviewed. All other ROS negative. PHYSICAL EXAMINATION: VITAL SIGNS: Blood pressure was noted to be 155/82, pulse rate 63, RR 22, temperature 37, sats 90 on room air. GENERAL: Obese. minimal respiratory distress. Loquacious SKIN: Pallor, warm. HEENT: Alopecia. Pale palpebral conjunctivae. No ptosis. Dry mucosa. NECK: Short, supple. CHEST: Diminished breath sounds. occ expiratory wheezes. HEART: Regular rate and rhythm. No murmur. ABDOMEN: Some distention, non-tender. EXTREMITIES: min LE edema, no tenderness, no other gross deformities. NEUROLOGIC: Coherent, no facial symmetry , no other gross focality. LABORATORY DATA: Hemoglobin was noted to be 11.8, white cells 9.1, platelets 177. Sodium 139, potassium 4.5, chloride 104, glucose 104. Troponin 0.05. INR 1.6 EKG as per my interpretation, paced rhythm. CT chest initial read showed atelectasis, pneumonitis, CAD, pacemaker. ASSESSMENT: 1. Shortness of breath Multifactorial : chronic obstructive pulmonary disease/ILD exacerbation (steroid dependent dse), complicated bronchitis, no sepsis, failed outpx rx Subacute congestive heart failure. (sob, weight gain sx over the last few weeks) 2. Hypertension, slightly elevated 3. Fatigue symptoms for months from cardiopulmonary disease. Patient thinks his home beta chiquita may be contributory. 4. Sick sinus syndrome sp PPM. Paced rhythm. subtherapeutic INR 5. DM1 as per records, suboptimal control as of recent inpatient HgA1c of 9.5 last November 2016 6. chronic renal insufficiency. Creatinine at baseline. 7. Chronic anemia secondary to CKD, hemoglobin at baseline 8. Past tobacco abuse 9. Leg swelling 2 to CHF ro dvt PLAN: PCU IV Solu-Medrol one dose. Continue home prednisone dose. Doxycycline, nebs RTC, prn Pulmonology consult for COPD exacerbation. diuretic Rx for CHF while monitoring kidney function TTE, Cardio consult RE CHF. Decrease home beta chiquita dose given baseline CR of 60s and fatigue symptoms troubling patient Strict IOs, daily weights, CHF education Basal insulin. ISS BG goal 140-180, carb count coverage indicated for suboptimal blood sugar control Patient due for Hg1ac recheck. Venous LE Dopplers rule out DVT PT OT eval DVT prophylaxis, Coumadin INR goal 2-3 Full code. MTDD
[2017-08-17 06:06] LABS: BASO % 0.1 %; BASO ABS # 0.01 K/uL (0-0.2); EOS % 0.1 %; EOS ABS # 0.01 K/uL (0-0.5); HEMATOCRIT 34.8 % (42-52); HEMOGLOBIN 11.7 g/dL (14.0-18.0); IG# 0.03 K/uL (0.00-0.02); LYMPH % 6.2 %; LYMPH ABS # 0.63 K/uL (1.2-3.4); MEAN CELL VOLUME 89.5 fL (80-100); MEAN CORPUSCULAR HEMOGLOBIN 30.1 pg (25-34); MEAN CORPUSCULAR HGB CONC 33.6 g/dl (32-36); MEAN PLATELET VOLUME 10.1 fL (7.4-10.4); MONO % 3.1 %; MONO ABS # 0.32 K/uL (0.11-0.59); NEUT % 90.2 %; NEUT ABS # 9.16 K/uL (1.4-6.5); PLATELET COUNT 167 K/uL (130-400); RED CELL DISTRIBUTION WIDTH CV 14.2 % (11.5-14.5); RED CELL DISTRIBUTION WIDTH SD 46.8 fL (36.4-46.3); WHITE BLOOD COUNT 10.16 K/uL (4.8-10.8)
[2017-08-17 06:12] LABS: INR 1.5 (0.9-1.1)
[2017-08-17 06:44] LABS: CALCIUM 8.8 mg/dl (8.5-10.1); CREATININE 1.72 mg/dl (0.60-1.40)
--- NOTE | 2017-08-17 06:54 | DIAGNOSTIC IMAGING REPORT ---
(CHEST) THORAX WITHOUT CLINICAL HISTORY: Shortness of breath. Suspected pneumonia. Negative chest x-ray. COMPARISON STUDY: CT scan dated 12/03/2015 CT DOSE: 371.60 mGy.cm TECHNIQUE: CT of the thorax was performed from the thoracic inlet to the lung bases. Images are reviewed in the axial, sagittal, and coronal planes. IV contrast was not administered for this examination. A dose lowering technique was utilized adhering to the principles of ALARA. FINDINGS: Thyroid: Imaged portions of the thyroid gland are normal in appearance. Thoracic aorta: There is mild ectasia of the ascending thoracic aorta which measures 38 mm. Heart: The heart is mildly enlarged. There is no significant pericardial effusion. There is a left subclavian dual-chamber central venous pacemaker. There is dilatation of the pulmonary artery suggesting potential hypertension. Lungs and pleural spaces: There is respiratory motion artifact. There is pulmonary emphysema. Postsurgical changes are present within the right lung apex. 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 There are bibasal or dependent airspace opacities, atelectatic versus infectious/inflammatory. Aspiration could appear similar. There are multiple calcified pleural plaques. This may relate to prior asbestos exposure. Mediastinum: There is a stable prevascular lymph node the upper limits of normal in size. There is a borderline enlarged subcarinal lymph node. Beatris: There is no evidence of pathologic hilar adenopathy given the limitations of a noncontrast study. Axilla: Clear. Upper abdomen: There is a 12 mm right lobe hepatic hypodensity. This remain stable and likely represents a cyst. Skeletal structures: There are no lytic or blastic osseous lesions. IMPRESSION: 1. Bibasal airspace opacities, atelectatic versus infectious/inflammatory. Aspiration could appear similar 2. Multiple calcified pleural plaques 3. Tracheomalacia 4. Pulmonary emphysema 5. Suspected pulmonary arterial hypertension 6. Mediastinal lymph nodes at the upper limits of normal in size Electronically signed by: Bruno Lisa M.D. 08/17/2017 6:53 AM Dictated Date/Time: 08/17/2017 6:46 AM
--- NOTE | 2017-08-17 07:14 | DIAGNOSTIC IMAGING REPORT ---
VENOUS DOPPLER LWR EXT BILA CLINICAL HISTORY: 77 years-old Male presenting with leg swelling. TECHNIQUE: Real-time grayscale and color and spectral Doppler ultrasound imaging of the veins of the bilateral lower extremities was performed. Compression and augmentation were also utilized. COMPARISON: 09/05/2016. FINDINGS: Right: Common femoral vein: Patent. Greater saphenous vein: Patent. Deep femoral vein: Patent. Femoral vein: Patent. Popliteal vein: Patent. Calf veins: Patent. Left: Common femoral vein: Patent. Greater saphenous vein: Patent. Deep femoral vein: Patent. Femoral vein: Patent. Popliteal vein: Patent. Calf veins: Patent. Other: None. IMPRESSION: No evidence of deep venous thrombosis. Electronically signed by: Jono De Leon M.D. 08/17/2017 7:12 AM Dictated Date/Time: 08/17/2017 7:11 AM
[2017-08-17] MEDS: FLUTICASONE PROPIONATE NA SPR 16 GM BTL NAE SCH (07:30)
[2017-08-17] MEDS: FINASTERIDE 5 MG TAB PO SCH (07:30)
[2017-08-17] MEDS: VALSARTAN 80 MG TAB PO SCH (07:31)
[2017-08-17] MEDS: ASPIRIN 81 MG ECTAB PO SCH (07:31)
[2017-08-17] MEDS: RANITIDINE HCL 150 MG TAB PO SCH ×2 (07:31→20:36)
[2017-08-17] MEDS: INSULIN ASPART 100 UNITS/ML 3 ML PEN SC SCH ×4 (07:38→20:42)
[2017-08-17] MEDS ORDERED: FUROSEMIDE INJ 60 MG in SYRINGE 0 ML IV SCH (09:00)
[2017-08-17] MEDS ORDERED: METOPROLOL TARTRATE 25 MG TAB PO SCH ×2 (09:00→21:00)
[2017-08-17] MEDS ORDERED: METOPROLOL TARTRATE 50 MG TAB PO SCH ×2 (09:00)
[2017-08-17] MEDS ORDERED: INSULIN DETEMIR FLEXPEN/FLEX TOUCH 100 UNITS/ML 3ML SC SCH ×3 (09:00→21:00)
--- NOTE | 2017-08-17 11:06 | Cardiology Consultation ---
Cardiology Consultation Date of Consultation: Aug 17, 2017 Requesting Physician: Kun Attending Label Sewer: David (Kg Perez PA-C) History of Present Illness Mr. Plata is a complex 77 year old male who is being seen at the request of Dr. Tristan. Reason for cardiology consultation is congestive heart failure exacerbation. Mr. Barragan notes "this is an ongoing every so often thing, my lungs are really bad." He notes, starting four to five weeks ago, developing a couple productive of yellow sputum, chest congestion, and wheezing. He utilized his rescue kit (Levaquin and Prednisone) without improvement. He notes increased fatigue and running himself into the ground after his fall and sustained a hip fracture - running to the hospital regularly to be with her and then to [facility]. On August 16, 2017 he presented to the ER due to acute on chronic dyspnea. He was seen by Dr. Curran and given DuoNeb treatment, IV Recephin, and 60 mg IV furosemide. Shortly thereafter he was given IV doxycycline and 20 mg IV Solu-Medrol with improvement. The patient notes developing worsening fluid retention just when on higher dosing of Prednisone. He denies worsening orthopnea, PND, abdominal bloating/ distention, or scrotal edema. He denies chest pain, palpitations, dizziness, near syncope, true syncope, fevers, chills, night sweats, epistaxis, hemoptysis , melena, hematuria, dysuria, change in appetite, or rash. (Kg Perez PA-C) Past Medical/Surgical History Problem List: Asymptomatic paroxysmal atrial fibrillation CHADS2 Score of 3/6 Chronic Coumadin anticoagulation Hypertension Dyslipidemia Type II diabetes mellitus Severe oxygen dependent COPD Interstitial lung disease Asbestos exposure History of tobacco abuse Stage III chronic kidney disease Benign prostatic hypertrophy Dyslipidemia Inguinal hernia repair Nasal polypectomy Prostate biopsy History of basal cell carcinoma (Kg Perez PA-C) Family History Mother with an unknown cancer in her early 70's. Father at 57 with what sounds like urosepsis following surgery. Two brothers. One with emphysema. One with diabetes mellitus. One sister had an RI in her 40's. (Kg Perez PA-C) Cancer MOTHER Diabetes mellitus BROTHER Gallbladder disease Heart disease Hypertension Kidney disease Kidney stones (Maunie, Toro J.,D.O.) Social History Reformed smoker. Started at the age of 15. Quit at the age of 61. Smoked up to 2 ppd. Reformed moderate alcohol consumption. No illegal drug use. x 60 years. Five children. One son 15 years old with metastatic colon cancer. One son with atrial fibrillation post ablation. 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 recently suffered a hip fracture and is at [facility]. (Kg Perez PA-C) Review Of Systems Complete review of systems is as stated above, negative, or noncontributory. (Kg Perez PA-C) Allergies Coded Allergies: Diltiazem (Verified Allergy, Mild, RASH, 10/11/16) Aspirin (Verified Adverse Reaction, Mild, GI SYMPTOMS, 10/11/16) Lisinopril (Verified Adverse Reaction, Unknown, cough, 10/11/16) Propoxyphene (Verified Adverse Reaction, Unknown, STOMACH UPSET DIARRHEA, 10/11/16) Medications Reported Home Medications Medications Dose Route/Sig Max Daily Dose Days Date Category Dose Instructions Levalbuterol (Levalbuterol Hcl) 1.25 Mg/0.5 Ml Neb 0.5 Ml INH Q6H PRN 08/17/17 Reported Levaquin (Levofloxacin) 500 Mg Tab 500 Mg PO DAILY/PRN 14 08/17/17 Reported RESCUE KIT Diovan (Valsartan) 80 Mg Tab 80 Mg PO DAILY 08/17/17 Reported Lopressor (Metoprolol Tartrate) 50 Mg Tab 50 Mg PO BID 08/17/17 Reported Levemir (Insulin Detemir) 100 Units/Ml Inj 8 Units SQ QPM 08/17/17 Reported Levemir (Insulin Detemir) 100 Units/Ml Inj 14 Units SQ QAM 08/17/17 Reported Digoxin 0.125 Mg Tab 0.125 Mg PO 3XWK 08/17/17 Reported TAKE EVERY SUNDAY/SUNDAY/SUNDAY. Aspirin Ec (Aspirin) 81 Mg Tab 81 Mg PO DAILY 08/17/17 Reported Proscar (Finasteride) 5 Mg Tab 5 Mg PO DAILY 12/10/16 Reported Dulera 200/5 Mcg (Mometasone Furoate-Formoterol) 1 Aer Aer 2 Puffs INH BID 12/10/16 Reported Jantoven (Warfarin Sodium) 2.5 Mg Tab 2.5 Mg PO DIRECTED 12/10/16 Reported WHOLE TABLET ON SUNDAY,SUNDAY & SUNDAY Jantoven (Warfarin Sodium) 2.5 Mg Tab 1.25 Mg PO DIRECTED 12/10/16 Reported 1/2 TABLET ON SUNDAY,SUNDAY,SUNDAY,SUNDAY Nitrostat (Nitroglycerin) 0.4 Mg Sub 0.4 Mg UT PRN 11/13/16 Reported NEEDED FOR CHEST PAIN : ONE TABLET UNDER THE TONGUE EVERY 5 MINUTES UP TO 3 DOSES. Prednisone 5 Mg Tab 5 Mg PO DAILY 11/13/16 Reported Combivent Respimat (Ipratropium-Albuterol) 1 Aer Aer 1 Puff PO QID 11/13/16 Reported Novolog Flexpen (Insulin Aspart) 100 Units/Ml Inj 1 Dose SQ ACHS 10/11/16 Reported SLIDING SCALE. APPROX 10UNITS BID Ranitidine HCl 150 Mg Tab 150 Mg PO BID 10/11/16 Reported Fluticasone Propionate 120 Sprays/6000 Mcg Inha 2 Sprays ALDEN DAILY 10/11/16 Reported Ambien (Zolpidem Tartrate) 5 Mg Tab 5 Mg PO HS PRN 05/14/16 Reported Lasix (Furosemide) 20 Mg Tab 20 Mg PO DAILY 09/18/14 Reported Flomax (Tamsulosin Hcl) 0.4 Mg Cap 0.4 Mg PO HS 09/18/14 Reported Zocor (Simvastatin) 20 Mg Tab 20 Mg PO QPM 12/11/08 Reported TAKE WITH EVENING MEAL. (Kg Perez PA-C) Physical Exam Vital Signs (Last 8hrs): Last 8 Hrs Date Time Temp Pulse Resp B/P (MAP) Pulse Ox O2 Delivery O2 Flow Rate FiO2 08/17/17 08:00 Nasal Cannula 2.0 08/17/17 07:48 67 16 95 Nasal Cannula 2.0 08/17/17 07:44 36.3 62 19 144/71 (95) 95 08/17/17 04:00 Nasal Cannula 2.0 General: Alert and Oriented x3. NAD. Elevated BMI. HEENT: Normocephalic Atraumatic. PER, EOMI, Conjunctiva and sclera clear Neck: Thick. No overt JVD. No carotid bruits. Lungs: Diminished. Decreased breath sounds. Diffuse expiratory wheezing. No dullness to percussion Heart: RRR, paced. Soft apical systolic murmur. No rub. PMI is not displaced. Abdomen: +BS. No abdominal bruits. Soft. Nontender. Extremities: Mild distal edema. No clubbing. No cyanosis. Distal pulses were 1/4 bilaterally. Neuro: No focal deficits. Psychiatric: Normal affect. (Kg Perez, SHARMIN) Data Last 24 Hours Test 08/16/17 22:45 08/16/17 22:49 08/17/17 00:44 08/17/17 02:05 White Blood Count 9.61 K/uL Red Blood Count 4.04 M/uL Hemoglobin 11.8 g/dL Hematocrit 36.1 % Mean Corpuscular Volume 89.4 fL Mean Corpuscular Hemoglobin 29.2 pg Mean Corpuscular Hemoglobin Concent 32.7 g/dl Platelet Count 171 K/uL Mean Platelet Volume 9.2 fL Neutrophils (%) (Auto) 81.8 % Lymphocytes (%) (Auto) 11.9 % Monocytes (%) (Auto) 5.8 % Eosinophils (%) (Auto) 0.1 % Basophils (%) (Auto) 0.1 % Neutrophils # (Auto) 7.86 K/uL Lymphocytes # (Auto) 1.14 K/uL Monocytes # (Auto) 0.56 K/uL Eosinophils # (Auto) 0.01 K/uL Basophils # (Auto) 0.01 K/uL RDW Standard Deviation 47.0 fL RDW Coefficient of Variation 14.3 % Immature Granulocyte % (Auto) 0.3 % Immature Granulocyte # (Auto) 0.03 K/uL Prothrombin Time 17.1 SECONDS Prothromb Time International Ratio 1.6 Activated Partial Thromboplast Time 44.3 SECONDS Partial Thromboplastin Ratio 1.7 Sodium Level 139 mmol/L Potassium Level 4.5 mmol/L Chloride Level 104 mmol/L Carbon Dioxide Level 29 mmol/L Anion Gap 6.0 mmol/L Blood Urea Nitrogen 26 mg/dl Creatinine 1.71 mg/dl Est Creatinine Clear Calc Drug Dose 41.9 ml/min Estimated GFR () 43.2 Estimated GFR (Non- 37.3 BUN/Creatinine Ratio 15.1 Random Glucose 104 mg/dl Calcium Level 8.6 mg/dl Magnesium Level 1.7 mg/dl Total Bilirubin 0.9 mg/dl Aspartate Amino Transf (AST/SGOT) 15 U/L Alanine Aminotransferase (ALT/SGPT) 24 U/L Alkaline Phosphatase 75 U/L Troponin I 0.051 ng/ml 0.053 ng/ml Total Protein 6.4 gm/dl Albumin 2.8 gm/dl Globulin 3.6 gm/dl Albumin/Globulin Ratio 0.8 Thyroid Stimulating Hormone (TSH) 0.894 uIu/ml Digoxin Level 0.6 ng/ml Influenza Type A (RT-PCR) Neg for Influ A Influenza Type B (RT-PCR) Neg for Influ B Bedside Glucose 134 mg/dl Test 08/17/17 05:12 White Blood Count 10.16 K/uL Red Blood Count 3.89 M/uL Hemoglobin 11.7 g/dL Hematocrit 34.8 % Mean Corpuscular Volume 89.5 fL Mean Corpuscular Hemoglobin 30.1 pg Mean Corpuscular Hemoglobin Concent 33.6 g/dl Platelet Count 167 K/uL Mean Platelet Volume 10.1 fL Neutrophils (%) (Auto) 90.2 % Lymphocytes (%) (Auto) 6.2 % Monocytes (%) (Auto) 3.1 % Eosinophils (%) (Auto) 0.1 % Basophils (%) (Auto) 0.1 % Neutrophils # (Auto) 9.16 K/uL Lymphocytes # (Auto) 0.63 K/uL Monocytes # (Auto) 0.32 K/uL Eosinophils # (Auto) 0.01 K/uL Basophils # (Auto) 0.01 K/uL RDW Standard Deviation 46.8 fL RDW Coefficient of Variation 14.2 % Immature Granulocyte % (Auto) 0.3 % Immature Granulocyte # (Auto) 0.03 K/uL Prothrombin Time 15.5 SECONDS Prothromb Time International Ratio 1.5 Sodium Level 136 mmol/L Potassium Level 4.0 mmol/L Chloride Level 101 mmol/L Carbon Dioxide Level 31 mmol/L Anion Gap 4.0 mmol/L Blood Urea Nitrogen 28 mg/dl Creatinine 1.72 mg/dl Est Creatinine Clear Calc Drug Dose 38.2 ml/min Estimated GFR () 42.9 Estimated GFR (Non- 37.0 BUN/Creatinine Ratio 16.0 Random Glucose 100 mg/dl Calcium Level 8.8 mg/dl Magnesium Level 2.1 mg/dl Troponin I 0.045 ng/ml October 12, 2016 TTE Interpretation Summary ([facility], Dr. Hall): The rhythm is atrial fibrillation with intermittent rapid ventricular response. Ejection Fraction = 50-55%. The left atrium is moderately dilated. There is mild mitral regurgitation. Aortic valve sclerosis mild, without significant aortic valvular stenosis Pacemaker interrogation on 08/08/2017 revealed an appropriately functioning Medtronic Advisa dual chamber pacemaker implantation that was implanted on 2016. Mode AAIR-DDDR, 60-130. Atrial paced 85%. RV paced 1.5%. Time in AT/AF: 15.1%. EKG on presentation revealed an atrial paced ventricular sensed rhythm. EKG this morning reveals an atrial paced ventricular sensed rhythm with LAFB, LVH, ST-T wave abnormality. Telemetry: Sinus, atrial paced - ventricular sensed rhythm. Rare ventricular pacing. Rare ventricular ectopy in singles. Echo is pending this admission. Chest CT (as per Dr. Lisa): Bibasal airspace opacities, atelectatic versus infectious/inflammatory. Aspiration could appear similar. Multiple calcified pleural plaques. Tracheomalacia. Pulmonary emphysema. Suspected pulmonary arterial hypertension. Mediastinal lymph nodes at the upper limits of normal in size. Venous duplex showed no evidence of DVT (Kg Perez PA-C) Assessment & Plan Admission with an acute on chronic obstructive pulmonary exacerbation, possible pneumonia. Treatment as per hospitalist service. Elevated Troponin No symptoms or electrocardiographic evidence of an acute coronary syndrome. ? Demand ischemia from the critical illness - pulmonary exacerbation, renal dysfunction, hypertension TTE pending interpretation. 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 Device interrogation performed on 08/08/2017, see above. No overt indication for repeat pacemaker interrogation this admission. Asymptomatic paroxysmal atrial fibrillation. CHADS2 Score of 4 out of 6 Recommend IV heparin to proper Coumadin anticoagulation Increase Lopressor to 25 mg twice a day (home dose was 50 mg twice a day) Hypertension. Improving. Follow Hyperlipidemia. Continue statin Fatigue Reduce Lopressor from 50 mg twice a day to 25 mg twice a day as noted above. Would resume higher dose lopressor, 50 mg twice a day, if he becomes symptomatic with the paroxysmal atrial fibrillation Chronic renal insufficiency. At baseline. Follow DVT prophylaxis. IV heparin back to proper Coumadin anticoagulation. (Kg Perez PA-C) CARDIOLOGY ATTENDING ADDENDUM: The patient was seen and personally examined. Agree with Kg Perez PA-C's findings and plans as documented above with additions as noted below. Subjective: Patient is feeling comfortable at present. He recently received a treatment with Xopenex about an hour ago. On telemetry he has reverted to atrial fibrillation with mildly elevated ventricular rates in the range of 110- 120 bpm. He does not feel this subjectively with no complaints of palpitations or chest discomfort. Compared to the EKG tracings performed earlier this hospital stay, he was in sinus rhythm on both of those EKG tracings. Exam: Regular rhythm, no significant murmur Impression: As above, with the addition that the patient has reverted to atrial fibrillation. As noted on his past pacemaker check above he does have episodes of asymptomatic atrial fibrillation with rapid ventricular rates. The patient has a reported allergy of rash reaction with past administration of diltiazem. I recommend a dose of IV metoprolol now. He is not wheezing at present, and his blood pressure is stable I think he will tolerate this. Further medication changes for atrial fibrillation will be considered as his hospital stay develops. Agree with discontinuation of his IV diuretic therapy and starting him on his outpatient oral therapy as noted above. (Toro Hernandez,WarnerO.)
[2017-08-17] MEDS ORDERED: HEPARIN 25,000 UNIT/500ML D5W 500 ML IV SCH (11:45)
[2017-08-17] MEDS ORDERED: HEPARIN IV LOW DOSE NO BOLUS SCH (11:45)
[2017-08-17] MEDS ORDERED: PHARMACY GLYCEMIC MGMT CONSULT PRN (12:20)
[2017-08-17] MEDS: FUROSEMIDE 20 MG TAB PO SCH (12:40)
--- NOTE | 2017-08-17 13:47 | Pharmacy Progress Note ---
Pharmacy Glycemic Short Note 2 Date of Service Aug 17, 2017. OUTPATIENT ANTIDIABETIC REGIMEN: * Levemir 14 units SQ qAM, 8 units qPM * Novolog SSI (approx 10 units BID) * prednisone 5mg PO daily * HbA1c: pending with am labs * A1c 12/12/16: 9.5% ASSESSMENT: * Mr Plata is a 77yo diabetic gentleman admitted overnight with COPD exacerbation. * Pt received 20mg IV SoluMedrol on admission and will then receive his outpt dose of prednisone daily. * Pre-lunch BSG was significantly elevated (314 mg/dL), likely due to IV steroids. * Novolog parameters tightened markedly for lunch coverage and will loosen again afterward, as expect effects of steroids to lessen. PLAN FOR INPATIENT GLYCEMIC CONTROL: * Basal insulin * Levemir 10 units SQ BID * Bolus insulin * NovoLog per scale ACHS or Q6hrs while NPO * Goal Range: Low 110 mg/dL - High 140 mg/dL * Correction Factor: 15 mg/dL/unit for lunch, then loosen to 20mg/dL/unit * Nutritional / Prandial insulin per carb ratio of 1 unit per 6 grams CHO consumed for lunch, then loosen to 1 unit per 8 gm CHO PLAN FOR DISCHARGE: * pending current A1c
[2017-08-17] MEDS ORDERED: [UNRECOGNIZED DRUG - REMARK] SCH (14:00)
[2017-08-17] MEDS ORDERED: METOPROLOL TARTRATE 1 MG/ML VIAL IV STA (15:28)
[2017-08-17] MEDS ORDERED: METOPROLOL TARTRATE 1 MG/ML VIAL ONE (15:39)
[2017-08-17] MEDS ORDERED: WARFARIN SOD 5 MG TAB PO SCH (16:00)
[2017-08-17] MEDS ORDERED: DIGOXIN 0.125 MG TAB PO SCH (16:00)
--- NOTE | 2017-08-17 16:02 | Progress Note ---
Internal Med Progress Note Date of Service: Aug 17, 2017. Provider Documentation: SUBJECTIVE: cough has improved no audible wheeze no fever or chills OBJECTIVE: Vital Signs-as noted below Exam: General-no sign of distress Eyes-sclera non icteric , PERRLA ENT-moist oral mucosa Neck-no JVD , no carotid bruit , no thyromegaly Lungs-+ crackles, minimum wheeze Heart-irregular Abdomen-soft, non tender Extremities-no rash or deformity Neuro-AAO x3, no focal neurological deficit Lab data as noted below. ASSESSMENT & PLAN: ACUTE ON CHRONIC HYPOXEMIC RESPIRATORY FAILURE /COPD EXACERBATION respiratory status improved since admission cont supplemental 02 ( was on 2 L 02 via nasal canula HS /has been using more frequently last few days due to SOB ) NEb tx empiric Abx Pulmonology consulted appreciate input AFIB RVR appreciate input form cardiology on IV heparin /INR sub therapeutic started on beta chiquita elevated of troponin possible demand ischemia /Type 2 NSTEMI in setting of rapid afib denies of any complain of chest heaviness or palpitatio n TYPE 2 DM : persistent hyperglycemia due to IV steroids adjusted insulin SSI pharmacy consulted for glycemic control FULL CODE DVT PROPHYLAXIS IV heparin DISPOSITION PT/OT eval prior to discharge Vital Signs: Date Time Temp Pulse Resp B/P (MAP) Pulse Ox O2 Delivery O2 Flow Rate FiO2 08/18/17 16:00 Nasal Cannula 2.0 08/18/17 15:18 36.7 66 20 131/81 (98) 94 Room Air 08/18/17 14:21 63 18 98 Nasal Cannula 1.0 08/18/17 13:45 85 147/77 (100) 08/18/17 12:00 Nasal Cannula 2.0 08/18/17 11:41 36.7 71 19 129/76 (93) 93 Nasal Cannula 2.0 08/18/17 08:05 36.7 63 19 142/71 (94) 95 Nasal Cannula 2.0 08/18/17 08:00 Nasal Cannula 2.0 08/18/17 07:12 68 16 95 Nasal Cannula 1.0 08/18/17 04:00 Nasal Cannula 2.0 08/18/17 03:33 36.4 60 20 130/80 (97) 96 Nasal Cannula 2.0 08/18/17 02:13 60 16 94 Nasal Cannula 1.0 08/18/17 00:01 Nasal Cannula 2.0 08/17/17 23:18 36.5 75 16 128/76 (93) 97 Nasal Cannula 2.0 08/17/17 20:00 Nasal Cannula 2.0 08/17/17 19:13 71 16 94 Nasal Cannula 1.0 Lab Results: Results Past 24 Hours Test 08/17/17 19:59 08/17/17 21:35 08/18/17 00:10 08/18/17 00:25 Range/Units Bedside Glucose 198 36 37 70-99 mg/dl Urine Color YELLOW Urine Appearance CLEAR CLEAR Urine pH 5.0 4.5-7.5 Urine Specific [place] 1.023 1.000-1.030 Urine Protein 1+ NEG Urine Glucose (UA) 3+ NEG Urine Ketones NEG NEG Urine Occult Blood NEG NEG Urine Nitrite NEG NEG Urine Bilirubin NEG NEG Urine Urobilinogen NEG NEG Urine Leukocyte Esterase NEG NEG Urine WBC (Auto) 1-5 0-5 /hpf Urine RBC (Auto) 0-4 0-4 /hpf Urine Hyaline Casts (Auto) 1-5 0-5 /lpf Urine Epithelial Cells (Auto) 5-10 0-5 /lpf Urine Bacteria (Auto) NEG NEG Test 08/18/17 00:41 08/18/17 01:05 08/18/17 01:57 08/18/17 02:15 Range/Units Bedside Glucose 59 98 68 54 70-99 mg/dl Test 08/18/17 02:32 08/18/17 03:20 08/18/17 05:02 08/18/17 06:55 Range/Units White Blood Count 9.53 4.8-10.8 K/uL Red Blood Count 4.05 4.7-6.1 M/uL Hemoglobin 11.7 14.0-18.0 g/dL Hematocrit 35.9 42-52 % Mean Corpuscular Volume 88.6 80-100 fL Mean Corpuscular Hemoglobin 28.9 25-34 pg Mean Corpuscular Hemoglobin Concent 32.6 32-36 g/dl RDW Standard Deviation 45.8 36.4-46.3 fL RDW Coefficient of Variation 14.0 11.5-14.5 % Platelet Count 188 130-400 K/uL Mean Platelet Volume 9.5 7.4-10.4 fL Prothrombin Time 23.2 9.0-12.0 SECONDS Prothromb Time International Ratio 2.2 0.9-1.1 Activated Partial Thromboplast Time 77.3 21.0-31.0 SECONDS Partial Thromboplastin Ratio 3.0 Sodium Level 138 136-145 mmol/L Potassium Level 4.3 3.5-5.1 mmol/L Chloride Level 99 98-107 mmol/L Carbon Dioxide Level 32 21-32 mmol/L Anion Gap 7.0 3-11 mmol/L Blood Urea Nitrogen 49 7-18 mg/dl Creatinine 1.93 0.60-1.40 mg/dl Est Creatinine Clear Calc Drug Dose 34.1 ml/min Estimated GFR () 37.3 Estimated GFR (Non- 32.2 BUN/Creatinine Ratio 25.2 10-20 Random Glucose 37 70-99 mg/dl Estimated Average Glucose 240 mg/dl Hemoglobin A1c 10.0 4.5-5.6 % Calcium Level 9.0 8.5-10.1 mg/dl Bedside Glucose 113 199 208 70-99 mg/dl Test 08/18/17 09:31 08/18/17 11:07 08/18/17 11:10 08/18/17 13:51 Range/Units Activated Partial Thromboplast Time 77.9 21.0-31.0 SECONDS Partial Thromboplastin Ratio 3.0 Bedside Glucose 479 436 456 70-99 mg/dl Test 08/18/17 16:14 Range/Units Bedside Glucose 177 70-99 mg/dl
--- NOTE | 2017-08-17 17:11 | Cardiology Progress Note ---
Cardiology Progress Note Date of Service Aug 17, 2017. Cardiology Progress Note Pt remains in AF. INR is below subtherapeutic. Start heparin gtt, no bolus, standard dose.
[2017-08-17] MEDS ORDERED: INSULIN HUMAN REGULAR IV BOLUS 10 UNIT in SYRINGE 0 ML IV SCH (17:45)
--- NOTE | 2017-08-17 18:14 | Pulmonary Consultation ---
History General Date of Service: Aug 17, 2017. Stated Complaint: Copd Exacerbation HPI Dear Dr. Beckford: Thank you for your kind referral of Mr. Beth to pulmonary service. This is 77-year-old gentleman with history of COPD, pulmonary asbestosis, sick sinus syndrome status post pacemaker in 2017, history of A. fib anticoagulated with Coumadin, history of pneumonia treated last year, presented to the hospital with increasing cough accompanied with increasing shortness of breath. The patient initially was started on doxycycline and was admitted to the hospital and started also on nebulizer treatment. The patient does have bronchodilators at home which she has not been using properly. He is supposed to be on oxygen on a regular basis but he is using it only at night. He has been maintained on chronic steroids with prednisone 5 mg p.o. daily. The patient denies any hemoptysis, no sputum production with colored sputum, he does have shortness of breath walking less than 30 feet. No increased swelling in his lower extremities. The patient responded to diuretics when he came into the hospital. He underwent a workup including chest x-ray and a CAT scan of the chest which revealed left lower lobe infiltrate, pleural plaques consistent with pulmonary asbestosis, minimal lymphadenopathy nonpathologic in nature. His laboratory also were reviewed which showed no leukocytosis. Historian: patient, other (Records) Onset: just prior to arrival Review of Systems Constitutional: denies: no symptoms, as stated in HPI, chills, diaphoresis, fever, malaise, weakness, weight gain, weight loss, other Eyes: denies: no symptoms, as stated in HPI, eye pain, tearing, itching, redness, discharge, double vision, visual changes, blurred vision, photophobia, other ENT: denies: no symptoms, as stated in HPI, ear pain, ear discharge, loss of hearing, tinnitus, nasal pain, nasal congestion, rhinorrhea, epistaxis, sore throat, stridor, throat swelling, mouth pain, mouth swelling, dental pain, gum swelling, other Cardiovascular: denies: no symptoms, as stated in HPI, chest pain, chest pressure, chest tightness, diaphoresis, edema, intermittent claudication, orthopnea, palpitations, syncope, other Respiratory: reports: cough, shortness of breath Gastrointestinal: denies: no symptoms, as stated in HPI, abdominal pain, constipation, diarrhea, nausea, vomiting, hematemesis, hematochezia, hemorrhoids , anorexia, appetite changes, stool changes, flatulence, belching, food intolerance, jaundice, other Musculoskeletal: denies: no symptoms, as stated in HPI, arthralgias, neck pain , back pain, joint pain, joint swelling, deformity, myalgias, muscle spasms, other Integumentary: denies: no symptoms, as stated in HPI, rash, redness, warmth, itching, dryness, lesions, lumps, change in color, change in hair/nails, other Neurologic: reports: focal weakness (Old) Psychiatric: denies: no symptoms, as stated in HPI, anxiety, depression, suicidal ideation, homicidal ideation, visual hallucinations, auditory hallucinations, mood changes, alcohol abuse, drug abuse, other Past Medical History Past Medical History: As above in the first section. Family History Cancer MOTHER Diabetes mellitus BROTHER Gallbladder disease Heart disease Hypertension Kidney disease Kidney stones Social History Hx Tobacco Use In Past Year?: No Immunizations History of Influenza Vaccine: Yes History of Tetanus Vaccine?: Yes History of Pneumococcal: Yes History of Hepatitis B Vaccine: Unknown History of MDRO History of MDRO: No Allergies Coded Allergies: Diltiazem (Verified Allergy, Mild, RASH, 10/11/16) Aspirin (Verified Adverse Reaction, Mild, GI SYMPTOMS, 10/11/16) Lisinopril (Verified Adverse Reaction, Unknown, cough, 10/11/16) Propoxyphene (Verified Adverse Reaction, Unknown, STOMACH UPSET DIARRHEA, 10/11/16) Current Medications Reported Home Medications Medications Dose Route/Sig Max Daily Dose Days Date Category Dose Instructions Levalbuterol (Levalbuterol Hcl) 1.25 Mg/0.5 Ml Neb 0.5 Ml INH Q6H PRN 08/17/17 Reported Levaquin (Levofloxacin) 500 Mg Tab 500 Mg PO DAILY/PRN 14 08/17/17 Reported RESCUE KIT Diovan (Valsartan) 80 Mg Tab 80 Mg PO DAILY 08/17/17 Reported Lopressor (Metoprolol Tartrate) 50 Mg Tab 50 Mg PO BID 08/17/17 Reported Levemir (Insulin Detemir) 100 Units/Ml Inj 8 Units SQ QPM 08/17/17 Reported Levemir (Insulin Detemir) 100 Units/Ml Inj 14 Units SQ QAM 08/17/17 Reported Digoxin 0.125 Mg Tab 0.125 Mg PO 3XWK 08/17/17 Reported TAKE EVERY SUNDAY/SUNDAY/SUNDAY. Aspirin Ec (Aspirin) 81 Mg Tab 81 Mg PO DAILY 08/17/17 Reported Proscar (Finasteride) 5 Mg Tab 5 Mg PO DAILY 12/10/16 Reported Dulera 200/5 Mcg (Mometasone Furoate-Formoterol) 1 Aer Aer 2 Puffs INH BID 12/10/16 Reported Jantoven (Warfarin Sodium) 2.5 Mg Tab 2.5 Mg PO DIRECTED 12/10/16 Reported WHOLE TABLET ON SUNDAY,SUNDAY & SUNDAY Jantoven (Warfarin Sodium) 2.5 Mg Tab 1.25 Mg PO DIRECTED 12/10/16 Reported 1/2 TABLET ON SUNDAY,SUNDAY,SUNDAY,SUNDAY Nitrostat (Nitroglycerin) 0.4 Mg Sub 0.4 Mg UT PRN 11/13/16 Reported NEEDED FOR CHEST PAIN : ONE TABLET UNDER THE TONGUE EVERY 5 MINUTES UP TO 3 DOSES. Prednisone 5 Mg Tab 5 Mg PO DAILY 11/13/16 Reported Combivent Respimat (Ipratropium-Albuterol) 1 Aer Aer 1 Puff PO QID 11/13/16 Reported Novolog Flexpen (Insulin Aspart) 100 Units/Ml Inj 1 Dose SQ ACHS 10/11/16 Reported SLIDING SCALE. APPROX 10UNITS BID Ranitidine HCl 150 Mg Tab 150 Mg PO BID 10/11/16 Reported Fluticasone Propionate 120 Sprays/6000 Mcg Inha 2 Sprays ALDEN DAILY 10/11/16 Reported Ambien (Zolpidem Tartrate) 5 Mg Tab 5 Mg PO HS PRN 05/14/16 Reported Lasix (Furosemide) 20 Mg Tab 20 Mg PO DAILY 09/18/14 Reported Flomax (Tamsulosin Hcl) 0.4 Mg Cap 0.4 Mg PO HS 09/18/14 Reported Zocor (Simvastatin) 20 Mg Tab 20 Mg PO QPM 12/11/08 Reported TAKE WITH EVENING MEAL. Physical Physical Exam Vital Signs: Date Time Temp Pulse Resp B/P (MAP) Pulse Ox O2 Delivery O2 Flow Rate FiO2 08/17/17 17:31 128 08/17/17 16:18 136 93 08/17/17 16:00 Nasal Cannula 2.0 08/17/17 15:43 120 111/80 08/17/17 15:19 36.5 65 20 124/74 (91) 93 Room Air 08/17/17 14:14 79 16 90 Nasal Cannula 1.0 08/17/17 12:00 Nasal Cannula 2.0 08/17/17 11:50 36.7 63 20 143/75 (97) 93 Room Air 08/17/17 08:00 Nasal Cannula 2.0 08/17/17 07:48 67 16 95 Nasal Cannula 2.0 08/17/17 07:44 36.3 62 19 144/71 (95) 95 08/17/17 04:00 Nasal Cannula 2.0 08/17/17 02:20 0/ 08/17/17 01:58 37.5 70 22 174/81 94 Nasal Cannula 2.0 08/17/17 01:51 62 20 134/67 94 Room Air 08/17/17 00:24 63 22 161/78 93 Nasal Cannula 2.0 08/16/17 23:07 68 22 155/82 93 Nasal Cannula 2.0 08/16/17 23:07 74 08/16/17 22:57 97 Nasal Cannula 2.0 08/16/17 22:57 97 Nasal Cannula 2.0 08/16/17 22:57 Nasal Cannula 2.0 98 08/16/17 22:22 37.5 65 16 185/82 90 Room Air General Appearance: WELL-APPEARING, NO APPARENT DISTRESS Eyes: EOMI ENT: NORMAL THROAT EXAM Neck: TRACHEA MIDLINE, NO STRIDOR Respiratory: rhonchi Cardiovasular: REGULAR RATE/RHYTHM, NORMAL S1S2, NO M/G/R, NO MURMUR, NO GALLOP Abdomen: NON TENDER, NO GUARDING Upper Extremities: NO EDEMA Lower Extremities: NO EDEMA Neuro: other (Old left-sided upper extremity weakness.) Psychiatric: NORMAL AFFECT Diagnostics Labs Results Past 24 Hours Test 08/16/17 22:45 08/16/17 22:49 08/17/17 00:44 08/17/17 02:05 Range/Units White Blood Count 9.61 4.8-10.8 K/uL Red Blood Count 4.04 4.7-6.1 M/uL Hemoglobin 11.8 14.0-18.0 g/dL Hematocrit 36.1 42-52 % Mean Corpuscular Volume 89.4 80-100 fL Mean Corpuscular Hemoglobin 29.2 25-34 pg Mean Corpuscular Hemoglobin Concent 32.7 32-36 g/dl Platelet Count 171 130-400 K/uL Mean Platelet Volume 9.2 7.4-10.4 fL Neutrophils (%) (Auto) 81.8 % Lymphocytes (%) (Auto) 11.9 % Monocytes (%) (Auto) 5.8 % Eosinophils (%) (Auto) 0.1 % Basophils (%) (Auto) 0.1 % Neutrophils # (Auto) 7.86 1.4-6.5 K/uL Lymphocytes # (Auto) 1.14 1.2-3.4 K/uL Monocytes # (Auto) 0.56 0.11-0.59 K/uL Eosinophils # (Auto) 0.01 0-0.5 K/uL Basophils # (Auto) 0.01 0-0.2 K/uL RDW Standard Deviation 47.0 36.4-46.3 fL RDW Coefficient of Variation 14.3 11.5-14.5 % Immature Granulocyte % (Auto) 0.3 % Immature Granulocyte # (Auto) 0.03 0.00-0.02 K/uL Prothrombin Time 17.1 9.0-12.0 SECONDS Prothromb Time International Ratio 1.6 0.9-1.1 Activated Partial Thromboplast Time 44.3 21.0-31.0 SECONDS Partial Thromboplastin Ratio 1.7 Sodium Level 139 136-145 mmol/L Potassium Level 4.5 3.5-5.1 mmol/L Chloride Level 104 98-107 mmol/L Carbon Dioxide Level 29 21-32 mmol/L Anion Gap 6.0 3-11 mmol/L Blood Urea Nitrogen 26 7-18 mg/dl Creatinine 1.71 0.60-1.40 mg/dl Est Creatinine Clear Calc Drug Dose 41.9 ml/min Estimated GFR () 43.2 Estimated GFR (Non- 37.3 BUN/Creatinine Ratio 15.1 10-20 Random Glucose 104 70-99 mg/dl Calcium Level 8.6 8.5-10.1 mg/dl Magnesium Level 1.7 1.8-2.4 mg/dl Total Bilirubin 0.9 0.2-1 mg/dl Aspartate Amino Transf (AST/SGOT) 15 15-37 U/L Alanine Aminotransferase (ALT/SGPT) 24 12-78 U/L Alkaline Phosphatase 75 45-117 U/L Troponin I 0.051 0.053 0-0.045 ng/ml Total Protein 6.4 6.4-8.2 gm/dl Albumin 2.8 3.4-5.0 gm/dl Globulin 3.6 2.5-4.0 gm/dl Albumin/Globulin Ratio 0.8 0.9-2 Thyroid Stimulating Hormone (TSH) 0.894 0.300-4.500 uIu/ml Digoxin Level 0.6 0.8-2.0 ng/ml Influenza Type A (RT-PCR) Neg for Influ A NEG Influenza Type B (RT-PCR) Neg for Influ B NEG Bedside Glucose 134 70-99 mg/dl Test 08/17/17 05:12 08/17/17 07:06 08/17/17 11:03 Range/Units White Blood Count 10.16 4.8-10.8 K/uL Red Blood Count 3.89 4.7-6.1 M/uL Hemoglobin 11.7 14.0-18.0 g/dL Hematocrit 34.8 42-52 % Mean Corpuscular Volume 89.5 80-100 fL Mean Corpuscular Hemoglobin 30.1 25-34 pg Mean Corpuscular Hemoglobin Concent 33.6 32-36 g/dl Platelet Count 167 130-400 K/uL Mean Platelet Volume 10.1 7.4-10.4 fL Neutrophils (%) (Auto) 90.2 % Lymphocytes (%) (Auto) 6.2 % Monocytes (%) (Auto) 3.1 % Eosinophils (%) (Auto) 0.1 % Basophils (%) (Auto) 0.1 % Neutrophils # (Auto) 9.16 1.4-6.5 K/uL Lymphocytes # (Auto) 0.63 1.2-3.4 K/uL Monocytes # (Auto) 0.32 0.11-0.59 K/uL Eosinophils # (Auto) 0.01 0-0.5 K/uL Basophils # (Auto) 0.01 0-0.2 K/uL RDW Standard Deviation 46.8 36.4-46.3 fL RDW Coefficient of Variation 14.2 11.5-14.5 % Immature Granulocyte % (Auto) 0.3 % Immature Granulocyte # (Auto) 0.03 0.00-0.02 K/uL Prothrombin Time 15.5 9.0-12.0 SECONDS Prothromb Time International Ratio 1.5 0.9-1.1 Sodium Level 136 136-145 mmol/L Potassium Level 4.0 3.5-5.1 mmol/L Chloride Level 101 98-107 mmol/L Carbon Dioxide Level 31 21-32 mmol/L Anion Gap 4.0 3-11 mmol/L Blood Urea Nitrogen 28 7-18 mg/dl Creatinine 1.72 0.60-1.40 mg/dl Est Creatinine Clear Calc Drug Dose 38.2 ml/min Estimated GFR () 42.9 Estimated GFR (Non- 37.0 BUN/Creatinine Ratio 16.0 10-20 Random Glucose 100 70-99 mg/dl Calcium Level 8.8 8.5-10.1 mg/dl Magnesium Level 2.1 1.8-2.4 mg/dl Troponin I 0.045 0-0.045 ng/ml Bedside Glucose 154 314 70-99 mg/dl Microbiology Results 08/16/17 Blood Culture, Received Pending 08/16/17 Blood Culture, Received Pending Diagnostic Radiology Both chest x-ray and CAT scan is reviewed personally showing left lower lobe infiltrate with emphysematous changes, chronic changes consistent with exposure to asbestos. No leukocytosis. Impression Assessment and Plan 1. COPD with exacerbation, gold level 3, the patient is not compliant with oxygen. The patient has been maintained on chronic steroids. 2. Pulmonary asbestosis. 3. History of sick sinus syndrome status post pacemaker. 4. History of A. fib anticoagulated with Coumadin. 5. Recurrent pneumonia once a year according to the patient, last episode was November 2016, he is up-to-date with his vaccination. Plan: 1. Continue with doxycycline for total of 7 days. 2. Increase prednisone to 40 mg p.o. daily and taper by 10 mg every third day until his maintenance dose. 3. I encourage to take him off the steroids entirely at some point. 4. Bronchodilators. 5. He needs to be on long-acting beta agonist. 6. Disposition plan with oxygen on 24/7 basis to home. Thank you for your kind referral.
[2017-08-17] MEDS ORDERED: METOPROLOL TARTRATE 25 MG TAB PO ONE (18:30)
--- NOTE | 2017-08-17 19:10 | ECHOCARDIOGRAM REPORT ---
*NOTICE TO RECEIVING DEMOCRAT AGENCY This information is strictly Confidential and protected under [place] law. [place] law prohibits you from making any further disclosure of this information unless further disclosure is expressly permitted by the written consent of the person to whom it pertains or is authorized by law. A general authorization for the release of medical or other information is not sufficient for this purpose. Hospital accepts no responsibility if the information is made available to any other person, INCLUDING THE PATIENT. Interpretation Summary * Name: CHARISSA THAKUR Study Date: 08/17/2017 06:26 AM BP: 174/81 mmHg * Patient Location: .2E\S\E204\S\1 HR: 70 * : 1940 (M/d/yyy) Gender: Male Height: 72 in * Age: 77 yrs Ethnicity: CA Weight: 208 lb * Ordering Physician: Stewart Tristan * Referring Physician: Self, Referred * Performed By: Vani Westbrook RCS * * Reason For Study: CHF / ELEVATED TROPONIN * BSA: 2.2 m2 * -- Conclusions -- * Study was technically adequate for the referral indication. * Sinus rhythm was present during the echocardiogram. * There is mild concentric left ventricular hypertrophy. * The left ventricular wall motion is normal. * Ejection Fraction = 55-60%. * The right ventricle is normal in size and function. * There is moderate focal calcification of the posterior mitral valve leaflet. * There is mild mitral regurgitation. * There is mild tricuspid regurgitation. * Mild pulmonary hypertension is present. * The pulmonary artery systolic pressure is calculated to be 42 mmHg assuming right atrial pressure of 3 mmHg. Procedure Details * A complete two-dimensional transthoracic echocardiogram was performed (2D, M-mode, Doppler and color flow Doppler). Left Ventricle * The left ventricle is normal in size. * There is mild concentric left ventricular hypertrophy. * Left ventricular systolic function is normal. * Ejection Fraction = 55-60%. * The left ventricular wall motion is normal. Right Ventricle * The right ventricle is normal in size and function. * The right ventricular systolic function is normal as assessed by tricuspid annular plane systolic excursion (TAPSE) (normal >1.5 cm). Atria * The left atrium is mildly dilated. * Right atrial size is normal. * There is no evidence of atrial septal defect, but resolution does not allow assessment for a patent foramen ovale. Mitral Valve * The mitral valve is normal. * There is moderate focal calcification of the posterior mitral valve leaflet. * There is no mitral valve stenosis. * There is mild mitral regurgitation. Tricuspid Valve * The tricuspid valve is normal. * There is no tricuspid stenosis. * There is mild tricuspid regurgitation. * Mild pulmonary hypertension is present. The pulmonary artery systolic pressure is calculated to be 42 mmHg assuming right atrial pressure of 3 mmHg. Aortic Valve * The aortic valve is trileaflet. * Aortic stenosis is absent. * There is no significant aortic regurgitation. Pulmonic Valve * The pulmonary valve is not well seen, but the Doppler examination is normal without significant regurgitation or stenosis. Great Vessels * The aortic root and proximal ascending aorta are normal sized. Pericardium/Pleural * There is no pericardial effusion. * There is increased echodensity in the anterior pericardial space consistent with pericardial fat. Great Vessels * Normal inferior vena cava diameter and respiratory variation suggests normal central venous pressure. Left Ventricular Diastolic Function * Grade I diastolic dysfunction, (abnormal relaxation pattern). MMode 2D Measurements and Calculations IVSd 1.8 cm IVSs 2.0 cm LVIDd 4.7 cm LVIDs 3.2 cm LVPWd 1.8 cm LVPWs 1.2 cm IVS/LVPW 0.95 FS 32.3 % EDV(Teich) 103.6 ml ESV(Teich) 41.0 ml EF(Teich) 60.5 % EDV(cubed) 105.4 ml ESV(cubed) 32.8 ml EF(cubed) 68.9 % % IVS thick 13.8 % % LVPW thick -32.19 % LV mass(C)d 392.0 grams LV mass(C)dI 181.0 grams/m\S\2 LV mass(C)s 196.1 grams LV mass(C)sI 90.5 grams/m\S\2 SV(Teich) 62.6 ml SI(Teich) 28.9 ml/m\S\2 SV(cubed) 72.7 ml SI(cubed) 33.5 ml/m\S\2 Ao root diam 3.3 cm Ao root area 8.5 cm\S\2 ACS 2.0 cm LA dimension 4.3 cm LA/Ao 1.3 LVOT diam 2.0 cm LVOT area 3.0 cm\S\2 LVAd ap4 31.0 cm\S\2 LVLd ap4 8.3 cm EDV(MOD-sp4) 95.1 ml EDV(sp4-el) 98.9 ml LVAs ap4 23.0 cm\S\2 LVLs ap4 7.6 cm ESV(MOD-sp4) 55.9 ml ESV(sp4-el) 59.0 ml EF(MOD-sp4) 41.2 % EF(sp4-el) 40.3 % LVAd ap2 34.9 cm\S\2 LVLd ap2 8.2 cm EDV(MOD-sp2) 118.9 ml EDV(sp2-el) 126.4 ml LVAs ap2 24.8 cm\S\2 LVLs ap2 7.7 cm ESV(MOD-sp2) 64.5 ml ESV(sp2-el) 67.6 ml EF(MOD-sp2) 45.7 % EF(sp2-el) 46.5 % LVLd %diff -0.90 % EDV(MOD-bp) 106.4 ml LVLs %diff 1.5 % ESV(MOD-bp) 60.6 ml EF(MOD-bp) 43.0 % SV(MOD-sp4) 39.2 ml SI(MOD-sp4) 18.1 ml/m\S\2 SV(MOD-sp2) 54.4 ml SI(MOD-sp2) 25.1 ml/m\S\2 SV(MOD-bp) 45.8 ml SI(MOD-bp) 21.1 ml/m\S\2 SV(sp4-el) 39.9 ml SI(sp4-el) 18.4 ml/m\S\2 SV(sp2-el) 58.8 ml SI(sp2-el) 27.1 ml/m\S\2 Doppler Measurements and Calculations MV E max maribel 81.4 cm/sec MV A max maribel 117.6 cm/sec MV E/A 0.69 MV P1/2t max maribel 84.2 cm/sec MV P1/2t 149.3 msec MVA(P1/2t) 1.5 cm\S\2 MV dec slope 165.2 cm/sec\S\2 MV dec time 0.43 sec Ao V2 max 125.5 cm/sec Ao max PG 6.3 mmHg Ao max PG (full) 3.6 mmHg NENA(V,A) 2.0 cm\S\2 NENA(V,D) 2.0 cm\S\2 LV V1 max PG 2.7 mmHg LV V1 max 82.5 cm/sec MR max maribel 546.1 cm/sec MR max PG 119.3 mmHg PA V2 max 119.7 cm/sec PA max PG 5.7 mmHg PI max maribel 139.1 cm/sec PI max PG 7.7 mmHg PI dec slope 61.3 cm/sec\S\2 PI P1/2t 664.7 msec TR max maribel 291.2 cm/sec
[2017-08-17 19:35] LABS: PTT PATIENT 103.1 SECONDS (21.0-31.0)
[2017-08-17] MEDS: SIMVASTATIN 20 MG TAB PO SCH (20:36)
[2017-08-17] MEDS: DOXYCYCLINE HYCLATE 100 MG CAP PO SCH (20:36)
[2017-08-17] MEDS: TAMSULOSIN HCL 0.4 MG CAP PO SCH (20:37)
[2017-08-18] VITALS (11 sets, daily range): BP systolic 129–147; BP diastolic 71–81; PULSE 60–85; TEMP 36.4–36.8; O2SAT 93–98
[2017-08-18] MEDS ORDERED: INSULIN ASPART 100 UNITS/ML 3 ML PEN SC SCH ×2 (02:00→14:00)
[2017-08-18] MEDS: IPRATROPIUM BROMIDE NEB SOLN 0.02% 2.5 ML VIAL INH SCH ×4 (02:13→19:14)
[2017-08-18] MEDS: LEVALBUTEROL 1.25MG/0.5ML NEB INH SCH ×4 (02:13→19:14)
[2017-08-18 02:52] LABS: HEMATOCRIT 35.9 % (42-52); HEMOGLOBIN 11.7 g/dL (14.0-18.0); MEAN CELL VOLUME 88.6 fL (80-100); MEAN CORPUSCULAR HEMOGLOBIN 28.9 pg (25-34); MEAN CORPUSCULAR HGB CONC 32.6 g/dl (32-36); MEAN PLATELET VOLUME 9.5 fL (7.4-10.4); PLATELET COUNT 188 K/uL (130-400); RED CELL DISTRIBUTION WIDTH SD 45.8 fL (36.4-46.3); WHITE BLOOD COUNT 9.53 K/uL (4.8-10.8)
[2017-08-18 03:17] LABS: CREATININE 1.93 mg/dl (0.60-1.40); POTASSIUM 4.3 mmol/L (3.5-5.1)
[2017-08-18 03:22] LABS: INR 2.2 (0.9-1.1)
[2017-08-18 03:34] LABS: PTT PATIENT 77.3 SECONDS (21.0-31.0)
[2017-08-18] MEDS: METOPROLOL TARTRATE 25 MG TAB PO SCH ×4 (07:49→19:48)
[2017-08-18] MEDS: FLUTICASONE PROPIONATE NA SPR 16 GM BTL NAE SCH (07:50)
[2017-08-18] MEDS: VALSARTAN 80 MG TAB PO SCH (07:50)
[2017-08-18] MEDS: FUROSEMIDE 20 MG TAB PO SCH (07:51)
[2017-08-18] MEDS: FINASTERIDE 5 MG TAB PO SCH (07:51)
[2017-08-18] MEDS: ASPIRIN 81 MG ECTAB PO SCH (07:51)
[2017-08-18] MEDS: DOXYCYCLINE HYCLATE 100 MG CAP PO SCH ×2 (07:52→19:48)
[2017-08-18] MEDS: RANITIDINE HCL 150 MG TAB PO SCH ×2 (07:53→19:48)
[2017-08-18] MEDS: INSULIN ASPART 100 UNITS/ML 3 ML PEN SC SCH ×5 (07:57→23:57)
[2017-08-18 10:09] LABS: PTT PATIENT 77.9 SECONDS (21.0-31.0)
--- NOTE | 2017-08-18 10:22 | Pharmacy Progress Note ---
Pharmacy Glycemic Short Note 2 Date of Service Aug 18, 2017. OUTPATIENT ANTIDIABETIC REGIMEN: * Levemir 14 units SQ qAM, 8 units qPM * Novolog SSI (approx 10 units BID) * prednisone 5mg PO daily Item Value Date Time Bedside Glucose 154 mg/dl H 08/17/17 0706 Bedside Glucose 314 mg/dl H 08/17/17 1103 Bedside Glucose 198 mg/dl H 08/17/17 1959 Bedside Glucose 36 mg/dl *L 08/18/17 0010 Bedside Glucose 37 mg/dl *L 08/18/17 0025 Bedside Glucose 59 mg/dl *L 08/18/17 0041 Bedside Glucose 98 mg/dl 08/18/17 0105 Bedside Glucose 68 mg/dl *L 08/18/17 0157 Bedside Glucose 54 mg/dl *L 08/18/17 0215 Bedside Glucose 113 mg/dl H 08/18/17 0320 Bedside Glucose 199 mg/dl H 08/18/17 0502 Bedside Glucose 208 mg/dl H 08/18/17 0655 Estimated Average Glucose 240 mg/dl 08/18/17 0232 Hemoglobin A1c 10.0 % H 08/18/17 0232 ASSESSMENT: * 77yo T2DM male with sub-adequate degree of outpatient control per A1c of 10%. Goal A1c likely ~8.5% * Pt with severe hyperglycemia yesterday secondary to IV Solumedrol dosing and poor baseline control * Then, pt with severe hypoglycemia overnight secondary to too much insulin * Basal insulin dose given yesterday was only 20 units (as 10 units SQ BID) and outpatient dosing is 14 units. * Pt did receive aggressive NovoLog coverage + IV insulin bolus for BSG of 394 mg/dl. * Surprising that pt had such a severe hypoglycemic event since SQ insulin dosing was not much more aggressive than outpatient dosing * Solumedrol d/c and changed to once daily prednisone 40mg daily. * Will adjust insulin orders accordingly. PLAN FOR INPATIENT GLYCEMIC CONTROL: * Basal insulin: decrease dosing and get back to QAM dosing only which is c/w outpatient dosing and once daily prednisone * Levemir 14 units SQ daily in AM --> hold dose until lunch time today d/t low BSG overnight * Bolus insulin: no change. parameters loosened last evening * NovoLog per scale ACHS or Q6hrs while NPO * Goal Range: Low 110 mg/dL - High 140 mg/dL * Correction Factor: 20 mg/dL/unit * Nutritional / Prandial insulin per carb ratio of 1 unit per 8 grams CHO consumed
[2017-08-18] MEDS ORDERED: NURSING VERBAL MED ORDER ONE (10:30)
--- NOTE | 2017-08-18 11:12 | Pulmonology Progress Note ---
Pulmonary Progress Note Date of Service Aug 18, 2017. Attending Dr. Dyer Subjective The patient denies any increased respiratory symptoms, he does have occasional cough, overnight he did have an episode of hypoglycemia, the patient denies any symptoms with it, no increased shortness of breath, he continued to be off the oxygen. Objective Physical exam on 08/18/2017 revealed vital signs are stable, S1-S2 regular rate and rhythm, lungs are distant and scattered rhonchi, abdomen is benign, no edema. No new imaging, and his labs were consistent with chronic kidney disease. Assessment & Plan 1. COPD, gold level 3, grade B. 2. Pulmonary asbestosis with interstitial lung disease. 3. Chronic kidney disease. 4. Diabetes mellitus. 5. A. fib. Status post pacemaker. Plan: 1. Continue with prednisone 40 mg p.o. daily, taper by 10 mg every fourth day. 2. Continue with bronchodilators, start the patient on Symbicort. 3. Preferably, the patient should use oxygen on 24/7 basis. 4. Flutter valve. 5. Glucose control. As you are doing. 6. Complete 7 days course of antibiotics only. 7. Follow-up with Dr. Patrick as an outpatient. 8. No further recommendations from pulmonary standpoint, will follow as needed. Thank you for your kind referral. Data Medications: Current Inpatient Medications Medications (Trade) Dose Ordered Sig/Bertha Route Start Time Stop Time Status Last Admin Dose Admin Ioversol (Optiray 320) 100 ml UD PRN IV 08/16/17 22:45 08/20/17 22:44 Aspirin (Ecotrin Tab) 81 mg DAILY PO 08/17/17 09:00 09/16/17 08:59 08/18/17 07:51 81 MG Digoxin (Lanoxin Tab) 0.125 mg MoWeFr@1600 PO 08/17/17 16:00 09/16/17 15:59 08/17/17 17:31 0.125 MG Finasteride (Proscar Tab) 5 mg DAILY PO 08/17/17 09:00 09/16/17 08:59 08/18/17 07:51 5 MG Fluticasone Propionate (Flonase Nasal [place]) 2 sprays DAILY ALDEN 08/17/17 09:00 09/16/17 08:59 08/18/17 07:50 2 SPRAYS Ranitidine HCl (zANTac TAB) 150 mg BID PO 08/17/17 09:00 09/16/17 08:59 08/18/17 07:53 150 MG Simvastatin (Zocor Tab) 20 mg QPM PO 08/17/17 21:00 09/16/17 20:59 08/17/17 20:36 20 MG Tamsulosin HCl (Flomax Cap) 0.4 mg HS PO 08/17/17 21:00 09/16/17 20:59 08/17/17 20:37 0.4 MG Valsartan (Diovan Tab) 80 mg DAILY PO 08/17/17 09:00 09/16/17 08:59 08/18/17 07:50 80 MG Doxycycline Hyclate (Vibramycin Cap) 100 mg BID PO 08/17/17 21:00 08/24/17 20:59 08/18/17 07:52 100 MG Acetaminophen (Tylenol Tab) 650 mg Q4H PRN PO 08/17/17 01:45 09/16/17 01:44 Nitroglycerin (Nitrostat Tab) 0.4 mg UD PRN SL 08/17/17 01:45 09/16/17 01:44 Insulin Aspart (novoLOG ASPART) SLIDING SCALE If C... ACHS SC 08/17/17 07:00 09/16/17 06:59 08/18/17 07:57 9 UNITS Glucose (Glucose 40% Gel) 15-30 GRAMS 15 GRAMS... UD PRN PO 08/17/17 01:45 09/16/17 01:44 Glucose (Glucose Chew Tab) 4-8 Tablets 4 Tabl... UD PRN PO 08/17/17 01:45 09/16/17 01:44 Dextrose (Dextrose 50% 50ML Syringe) 25-50ML OF 50% DW IV FOR... UD PRN IV 08/17/17 01:45 09/16/17 01:44 Glucagon (Glucagon Inj) 1 mg UD PRN SQ 08/17/17 01:45 09/16/17 01:44 Hydromorphone HCl (Dilaudid Inj) 0.5 mg Q3H PRN IV 08/17/17 01:45 08/31/17 01:44 Tramadol HCl (Ultram Tab) not relieved by tylenol @ Q6H PRN PO 08/17/17 01:45 09/16/17 01:44 Prochlorperazine Edisylate 5 mg/ Syringe 5 ml @ 5 mls/min Q6H PRN IV 08/17/17 01:45 09/16/17 01:44 Ipratropium [place] (Atrovent 0.02% 0.5MG/2.5ML Neb) 0.5 mg Q6R INH 08/17/17 03:00 09/16/17 02:59 08/18/17 07:12 0.5 MG Levalbuterol (Xopenex 1.25MG/ 0.5ML Neb) 1.25 mg Q6R INH 08/17/17 03:00 09/16/17 02:59 08/18/17 07:09 1.25 MG Ipratropium [place] (Atrovent 0.02% 0.5MG/2.5ML Neb) 0.5 mg Q4H PRN INH 08/17/17 02:15 09/16/17 02:14 Levalbuterol (Xopenex 1.25MG/ 0.5ML Neb) 1.25 mg Q4H PRN INH 08/17/17 02:15 09/16/17 02:14 Furosemide (Lasix Tab) 20 mg QAM PO 08/17/17 11:00 09/16/17 10:59 08/18/17 07:51 20 MG Miscellaneous Information (Consult Glycemic Management Pharmacy) 1 ea UD PRN N/A 08/17/17 12:20 09/16/17 12:19 Metoprolol Tartrate (Lopressor Tab) 25 mg TID PO 08/18/17 08:00 09/17/17 07:59 08/18/17 07:49 25 MG Prednisone (PredniSONE TAB) 40 mg DAILY PO 08/19/17 09:00 09/17/17 08:59 Insulin Detemir (Levemir Flexpen/ FlexTouch) 14 units DAILY SC 08/18/17 12:00 09/17/17 11:59 Warfarin Sodium (Coumadin Tab) 5 mg DAILY@16 PO 08/18/17 16:00 09/17/17 15:59 Vital Signs: Date Time Temp Pulse Resp B/P (MAP) Pulse Ox O2 Delivery O2 Flow Rate FiO2 08/18/17 08:05 36.7 63 19 142/71 (94) 95 Nasal Cannula 2.0 08/18/17 08:00 Nasal Cannula 2.0 08/18/17 07:12 68 16 95 Nasal Cannula 1.0 08/18/17 04:00 Nasal Cannula 2.0 08/18/17 03:33 36.4 60 20 130/80 (97) 96 Nasal Cannula 2.0 08/18/17 02:13 60 16 94 Nasal Cannula 1.0 08/18/17 00:01 Nasal Cannula 2.0 08/17/17 23:18 36.5 75 16 128/76 (93) 97 Nasal Cannula 2.0 08/17/17 20:00 Nasal Cannula 2.0 08/17/17 19:13 71 16 94 Nasal Cannula 1.0 08/17/17 17:31 128 08/17/17 16:18 136 93 08/17/17 16:00 Nasal Cannula 2.0 08/17/17 15:43 120 111/80 08/17/17 15:19 36.5 65 20 124/74 (91) 93 Room Air 08/17/17 14:14 79 16 90 Nasal Cannula 1.0 08/17/17 12:00 Nasal Cannula 2.0 08/17/17 11:50 36.7 63 20 143/75 (97) 93 Room Air Laboratory Results: Last 24 Hours Test 08/17/17 18:35 08/17/17 19:59 08/17/17 21:35 08/18/17 00:10 Activated Partial Thromboplast Time 103.1 SECONDS Partial Thromboplastin Ratio 4.0 Bedside Glucose 198 mg/dl 36 mg/dl Urine Color YELLOW Urine Appearance CLEAR Urine pH 5.0 Urine Specific [place] 1.023 Urine Protein 1+ Urine Glucose (UA) 3+ Urine Ketones NEG Urine Occult Blood NEG Urine Nitrite NEG Urine Bilirubin NEG Urine Urobilinogen NEG Urine Leukocyte Esterase NEG Urine WBC (Auto) 1-5 /hpf Urine RBC (Auto) 0-4 /hpf Urine Hyaline Casts (Auto) 1-5 /lpf Urine Epithelial Cells (Auto) 5-10 /lpf Urine Bacteria (Auto) NEG Test 08/18/17 00:25 08/18/17 00:41 08/18/17 01:05 08/18/17 01:57 Bedside Glucose 37 mg/dl 59 mg/dl 98 mg/dl 68 mg/dl Test 08/18/17 02:15 08/18/17 02:32 08/18/17 03:20 08/18/17 05:02 Bedside Glucose 54 mg/dl 113 mg/dl 199 mg/dl White Blood Count 9.53 K/uL Red Blood Count 4.05 M/uL Hemoglobin 11.7 g/dL Hematocrit 35.9 % Mean Corpuscular Volume 88.6 fL Mean Corpuscular Hemoglobin 28.9 pg Mean Corpuscular Hemoglobin Concent 32.6 g/dl RDW Standard Deviation 45.8 fL RDW Coefficient of Variation 14.0 % Platelet Count 188 K/uL Mean Platelet Volume 9.5 fL Prothrombin Time 23.2 SECONDS Prothromb Time International Ratio 2.2 Activated Partial Thromboplast Time 77.3 SECONDS Partial Thromboplastin Ratio 3.0 Sodium Level 138 mmol/L Potassium Level 4.3 mmol/L Chloride Level 99 mmol/L Carbon Dioxide Level 32 mmol/L Anion Gap 7.0 mmol/L Blood Urea Nitrogen 49 mg/dl Creatinine 1.93 mg/dl Est Creatinine Clear Calc Drug Dose 34.1 ml/min Estimated GFR () 37.3 Estimated GFR (Non- 32.2 BUN/Creatinine Ratio 25.2 Random Glucose 37 mg/dl Estimated Average Glucose 240 mg/dl Hemoglobin A1c 10.0 % Calcium Level 9.0 mg/dl Test 08/18/17 06:55 08/18/17 09:31 Bedside Glucose 208 mg/dl Activated Partial Thromboplast Time 77.9 SECONDS Partial Thromboplastin Ratio 3.0
[2017-08-18] MEDS: INSULIN DETEMIR FLEXPEN/FLEX TOUCH 100 UNITS/ML 3ML SC SCH (11:18)
[2017-08-18] MEDS ORDERED: INSULIN HUMAN REGULAR PER UNIT 10 UNITS in SYRINGE 9.9 ML IV SCH (14:15)
[2017-08-18] MEDS ORDERED: INSULIN ASPART 100 UNITS/ML 3 ML PEN SC ONE (14:15)
[2017-08-18] MEDS ORDERED: WARFARIN SOD 5 MG TAB PO SCH (16:00)
--- NOTE | 2017-08-18 19:03 | Progress Note ---
Internal Med Progress Note Date of Service: Aug 18, 2017. Provider Documentation: SUBJECTIVE: Denies of any respiratory distress Has cough nonproductive No audible wheeze No fever chills OBJECTIVE: Vital Signs-as noted below Exam: General-no sign of distress Eyes-sclera non icteric , PERRLA ENT-moist oral mucosa Neck-no JVD , no carotid bruit , no thyromegaly Lungs-+ crackles, minimum wheeze Heart-irregular Abdomen-soft, non tender Extremities-no rash or deformity Neuro-AAO x3, no focal neurological deficit Lab data as noted below. ASSESSMENT & PLAN: ACUTE ON CHRONIC HYPOXEMIC RESPIRATORY FAILURE /COPD EXACERBATION respiratory status improved since admission cont supplemental 02 ( was on 2 L 02 via nasal canula HS /has been using more frequently last few days due to SOB ) NEb tx empiric Abx Pulmonology consulted appreciate input On prednisone 40 mg p.o. daily will do slow taper to reduce 10 mg in every fourth day AFIB RVR appreciate input form cardiology INR therapeutic IV heparin discontinued On Lopressor 25 mg 3 times daily -tolerating well-heart rate remains rate controlled Has advanced COPD/no worsening of bronchospasm noted on beta-chiquita therapy ( allergy -rash on previous treatment with diltiazem ) elevated of troponin possible demand ischemia /Type 2 NSTEMI in setting of rapid afib denies of any complain of chest heaviness or palpitation-no evidence of ACS Cardiology following TYPE 2 DM : persistent hyperglycemia steroid induced adjusted insulin SSI On basal insulin Lantus Expected blood sugar to improve as prednisone dose being tapered down pharmacy consulted for glycemic control FULL CODE DVT PROPHYLAXIS Coumadin INR therapeutic DISPOSITION PT/OT eval prior to discharge Expected to be discharged home when medically stable Medicine follow-up with Dr. Monte Pulmonology follow-up with Dr. Patrick Cardiology follow-up at [facility] cardiology at [facility] Vital Signs: Date Time Temp Pulse Resp B/P (MAP) Pulse Ox O2 Delivery O2 Flow Rate FiO2 08/18/17 19:14 67 18 97 Nasal Cannula 1.0 08/18/17 19:11 36.8 69 19 143/76 (98) 96 Nasal Cannula 2.0 08/18/17 16:00 Nasal Cannula 2.0 08/18/17 15:18 36.7 66 20 131/81 (98) 94 Room Air 08/18/17 14:21 63 18 98 Nasal Cannula 1.0 08/18/17 13:45 85 147/77 (100) 08/18/17 12:00 Nasal Cannula 2.0 08/18/17 11:41 36.7 71 19 129/76 (93) 93 Nasal Cannula 2.0 08/18/17 08:05 36.7 63 19 142/71 (94) 95 Nasal Cannula 2.0 08/18/17 08:00 Nasal Cannula 2.0 08/18/17 07:12 68 16 95 Nasal Cannula 1.0 08/18/17 04:00 Nasal Cannula 2.0 08/18/17 03:33 36.4 60 20 130/80 (97) 96 Nasal Cannula 2.0 08/18/17 02:13 60 16 94 Nasal Cannula 1.0 08/18/17 00:01 Nasal Cannula 2.0 08/17/17 23:18 36.5 75 16 128/76 (93) 97 Nasal Cannula 2.0 Lab Results: Results Past 24 Hours Test 08/17/17 21:35 08/18/17 00:10 08/18/17 00:25 08/18/17 00:41 Range/Units Urine Color YELLOW Urine Appearance CLEAR CLEAR Urine pH 5.0 4.5-7.5 Urine Specific [place] 1.023 1.000-1.030 Urine Protein 1+ NEG Urine Glucose (UA) 3+ NEG Urine Ketones NEG NEG Urine Occult Blood NEG NEG Urine Nitrite NEG NEG Urine Bilirubin NEG NEG Urine Urobilinogen NEG NEG Urine Leukocyte Esterase NEG NEG Urine WBC (Auto) 1-5 0-5 /hpf Urine RBC (Auto) 0-4 0-4 /hpf Urine Hyaline Casts (Auto) 1-5 0-5 /lpf Urine Epithelial Cells (Auto) 5-10 0-5 /lpf Urine Bacteria (Auto) NEG NEG Bedside Glucose 36 37 59 70-99 mg/dl Test 08/18/17 01:05 08/18/17 01:57 08/18/17 02:15 08/18/17 02:32 Range/Units Bedside Glucose 98 68 54 70-99 mg/dl White Blood Count 9.53 4.8-10.8 K/uL Red Blood Count 4.05 4.7-6.1 M/uL Hemoglobin 11.7 14.0-18.0 g/dL Hematocrit 35.9 42-52 % Mean Corpuscular Volume 88.6 80-100 fL Mean Corpuscular Hemoglobin 28.9 25-34 pg Mean Corpuscular Hemoglobin Concent 32.6 32-36 g/dl RDW Standard Deviation 45.8 36.4-46.3 fL RDW Coefficient of Variation 14.0 11.5-14.5 % Platelet Count 188 130-400 K/uL Mean Platelet Volume 9.5 7.4-10.4 fL Prothrombin Time 23.2 9.0-12.0 SECONDS Prothromb Time International Ratio 2.2 0.9-1.1 Activated Partial Thromboplast Time 77.3 21.0-31.0 SECONDS Partial Thromboplastin Ratio 3.0 Sodium Level 138 136-145 mmol/L Potassium Level 4.3 3.5-5.1 mmol/L Chloride Level 99 98-107 mmol/L Carbon Dioxide Level 32 21-32 mmol/L Anion Gap 7.0 3-11 mmol/L Blood Urea Nitrogen 49 7-18 mg/dl Creatinine 1.93 0.60-1.40 mg/dl Est Creatinine Clear Calc Drug Dose 34.1 ml/min Estimated GFR () 37.3 Estimated GFR (Non- 32.2 BUN/Creatinine Ratio 25.2 10-20 Random Glucose 37 70-99 mg/dl Estimated Average Glucose 240 mg/dl Hemoglobin A1c 10.0 4.5-5.6 % Calcium Level 9.0 8.5-10.1 mg/dl Test 08/18/17 03:20 08/18/17 05:02 08/18/17 06:55 08/18/17 09:31 Range/Units Bedside Glucose 113 199 208 70-99 mg/dl Activated Partial Thromboplast Time 77.9 21.0-31.0 SECONDS Partial Thromboplastin Ratio 3.0 Test 08/18/17 11:07 08/18/17 11:10 08/18/17 13:51 08/18/17 16:14 Range/Units Bedside Glucose 479 436 456 177 70-99 mg/dl
[2017-08-18] MEDS: SIMVASTATIN 20 MG TAB PO SCH (19:48)
[2017-08-18] MEDS: TAMSULOSIN HCL 0.4 MG CAP PO SCH (19:48)
[2017-08-18] MEDS ORDERED: COUGH DROP (SUGAR FREE) LOZ 24 LOZ/1 BOX LOZ ONE (23:01)
[2017-08-18] MEDS ORDERED: COUGH DROP (SUGAR FREE) LOZ 24 LOZ/1 BOX LOZ PRN (23:30)
[2017-08-19] VITALS (9 sets, daily range): BP systolic 109–144; BP diastolic 66–81; PULSE 64–101; TEMP 36.4–36.8; O2SAT 91–99
[2017-08-19] MEDS: IPRATROPIUM BROMIDE NEB SOLN 0.02% 2.5 ML VIAL INH SCH ×4 (01:59→19:46)
[2017-08-19] MEDS: LEVALBUTEROL 1.25MG/0.5ML NEB INH SCH ×4 (01:59→19:46)
[2017-08-19] MEDS: INSULIN ASPART 100 UNITS/ML 3 ML PEN SC SCH ×3 (04:02→12:39)
[2017-08-19 06:00] LABS: CALCIUM 8.7 mg/dl (8.5-10.1); CREATININE 1.89 mg/dl (0.60-1.40)
[2017-08-19 06:43] LABS: INR 6.6 (0.9-1.1)
[2017-08-19] MEDS ORDERED: PHYTONADIONE 5 MG TAB PO ONE (07:00)
[2017-08-19] MEDS ORDERED: PHYTONADIONE PED INJ 2 MG, ORA-SWEET SYRUP 2.25 ML, ORA-PLUS SUSP. VEHICLE 2.25 ML, BAR... PO SCH ×3 (07:00)
[2017-08-19] MEDS: FLUTICASONE PROPIONATE NA SPR 16 GM BTL NAE SCH (07:51)
[2017-08-19] MEDS: VALSARTAN 80 MG TAB PO SCH (07:51)
[2017-08-19] MEDS: METOPROLOL TARTRATE 25 MG TAB PO SCH ×3 (07:52→19:40)
[2017-08-19] MEDS: ASPIRIN 81 MG ECTAB PO SCH (07:52)
[2017-08-19] MEDS: DOXYCYCLINE HYCLATE 100 MG CAP PO SCH ×2 (07:52→19:40)
[2017-08-19] MEDS: RANITIDINE HCL 150 MG TAB PO SCH ×2 (07:52→19:41)
[2017-08-19] MEDS: FUROSEMIDE 20 MG TAB PO SCH (07:53)
[2017-08-19] MEDS: FINASTERIDE 5 MG TAB PO SCH (07:53)
[2017-08-19] MEDS: INSULIN DETEMIR FLEXPEN/FLEX TOUCH 100 UNITS/ML 3ML SC SCH (07:57)
--- NOTE | 2017-08-19 10:28 | Pharmacy Progress Note ---
Pharmacy Glycemic Short Note 2 Date of Service Aug 19, 2017. OUTPATIENT ANTIDIABETIC REGIMEN: * Levemir 14 units SQ qAM, 8 units qPM * Novolog SSI (approx 10 units BID) * prednisone 5mg PO daily * Item Value Date Time Bedside Glucose 113 mg/dl H 08/18/17 0320 Bedside Glucose 199 mg/dl H 08/18/17 0502 Bedside Glucose 208 mg/dl H 08/18/17 0655 Bedside Glucose 479 mg/dl *H 08/18/17 1107 Bedside Glucose 436 mg/dl *H 08/18/17 1110 Bedside Glucose 456 mg/dl *H 08/18/17 1351 Bedside Glucose 177 mg/dl H 08/18/17 1614 Bedside Glucose 64 mg/dl *L 08/18/172005 Bedside Glucose 71 mg/dl 08/18/17 2045 Bedside Glucose 92 mg/dl 08/18/17 2355 Bedside Glucose 70 mg/dl 08/19/17 0201 Bedside Glucose 186 mg/dl H 08/19/17 0359 Bedside Glucose 274 mg/dl H 08/19/17 0625 ASSESSMENT: * 77yo T2DM male with sub-adequate degree of outpatient control per A1c of 10%. Goal A1c likely ~8.5% * BSG control has been extremely labile over the past 36 hrs * 08/18 Early AM --> Pt with HYPOglycemia possibly from over-correction of severe HYPERglycemia from solumedrol the previous day * 08/18 mid morning --> Pt with severe HYPERGLYCEMIA from over-treatment of hypoglycemia earlier in the morning. Basal insulin was held in the morning for hypoglycemia. * 08/18 PM --> pt with asymptomatic mild hypoglycemia (BSG = 64mg/dl). Treated with juice and snack. BSG re-checked 08/19 @ 0200, asymptomatic "low" but pt requested snack. * 08/19 AM --> rebound hyperglycemia from over-treatment of lows. * Need to stabilize BSGs to prevent over-correction & over-treatment of highs/ lows * Most insulin is needed early in the day to correct hyperglycemia from once daily prednisone then insulin needs taper as the hyperglycemic effects of prednisone wear off throughout the day * Will adjust NovoLog coverage to be tightest in the morning for breakfast, then less aggressive for lunch and least for dinner. NO HS correction of BSG with NovoLog as this tends to cause lows overnight. * Pt takes Levemir BID - will slowly add PM dose of Levemir back since removing HS coverage with NovoLog. more basal insulin is needed to stabilize BSGs and prevent over-correction and stacking with NovoLog. Current regimen is ~30% basal and 70% prandial. Will try to slowly shift closer to 40% basal and 60 % prandial for steroid induced hyperglycemia. PLAN FOR INPATIENT GLYCEMIC CONTROL: * Basal insulin: * Levemir 14 units SQ daily in AM + 3 units SQ daily in PM with dinner * Bolus insulin: change parameters based on time of day/prednisone administration. Most aggressive for breakfast, then taper for lunch, and loosen parameters for dinner. No coverage with HS. * NovoLog per scale ACHS or Q6hrs while NPO * Goal Range: Low 110 mg/dL - High 140 mg/dL * Correction Factor: 20 mg/dL/unit for breakfast and lunch; 25 mg/dl/unit for dinner * Nutritional / Prandial insulin per carb ratio of 1 unit per 6 grams CHO consumed for breakfast * Nutritional / Prandial insulin per carb ratio of 1 unit per 7 grams CHO consumed for lunch * Nutritional / Prandial insulin per carb ratio of 1 unit per 8 grams CHO consumed for dinner
[2017-08-19] MEDS ORDERED: INSULIN DETEMIR FLEXPEN/FLEX TOUCH 100 UNITS/ML 3ML SC SCH (16:45)
[2017-08-19] MEDS ORDERED: INSULIN ASPART 100 UNITS/ML 3 ML PEN SC SCH ×2 (16:45→21:00)
--- NOTE | 2017-08-19 19:13 | Progress Note ---
Internal Med Progress Note Date of Service: Aug 19, 2017. Provider Documentation: SUBJECTIVE: No complaint of shortness of breath, no wheeze Cough has improved markedly Feels fine, daughter visiting Patient is very eager to be discharged home Patient is counseled-his INR is elevated to 6.6/his heart rate still fluctuating 110-60 Needs adjustment of beta-chiquita Not safe to be discharged home today OBJECTIVE: Vital Signs-as noted below Exam: General-no sign of distress Eyes-sclera non icteric , PERRLA ENT-moist oral mucosa Neck-no JVD , no carotid bruit , no thyromegaly Lungs-no audible wheeze, no rales Heart-irregular Abdomen-soft, non tender Extremities-no rash or deformity Neuro-AAO x3, no focal neurological deficit Lab data as noted below. ASSESSMENT & PLAN: ACUTE ON CHRONIC HYPOXEMIC RESPIRATORY FAILURE /COPD EXACERBATION respiratory status improved to baseline cont supplemental 02 ( was on 2 L 02 via nasal canula HS /has been using more frequently last few days due to SOB ) Pulmonology consulted appreciate input On prednisone 40 mg p.o. daily will do slow taper to reduce 10 mg in every fourth day Denies of any shortness of breath, no wheeze Improved exercise tolerance, ambulating independently without dyspnea on exertion no hypoxia on exertion AFIB RVR appreciate input form cardiology INR elevated to 6.6 No evidence of bleeding Given vitamin K, hold Coumadin Repeat INR in morning On Lopressor 25 mg 3 times daily - Patient has been intermittent rapid A. fib will ask cardiology to adjust Lopressor dose/possible long acting beta-chiquita Has advanced COPD/no worsening of bronchospasm noted on beta-chiquita therapy ( allergy -rash on previous treatment with diltiazem ) elevated of troponin possible demand ischemia /Type 2 NSTEMI in setting of rapid afib denies of any complain of chest heaviness or palpitation-no evidence of ACS Continue senior patrol agent TYPE 2 DM : hyperglycemia steroid induced adjusted insulin SSI On basal insulin Lantus Expected blood sugar to improve as prednisone dose being tapered down pharmacy consulted for glycemic control FULL CODE DVT PROPHYLAXIS INR elevated DISPOSITION Expected to be discharged home when medically stable Medicine follow-up with Dr. Monte Pulmonology follow-up with Dr. Patrick Cardiology follow-up at [facility] cardiology at [facility] Vital Signs: Date Time Temp Pulse Resp B/P (MAP) Pulse Ox O2 Delivery O2 Flow Rate FiO2 08/19/17 19:08 36.6 67 120/76 (91) 98 Nasal Cannula 2.0 08/19/17 16:00 Room Air 08/19/17 15:31 36.6 72 18 118/66 (83) 91 08/19/17 14:15 76 18 97 Nasal Cannula 2.0 08/19/17 12:00 Room Air 08/19/17 11:43 36.4 101 20 109/78 (88) 95 Room Air 08/19/17 08:00 Nasal Cannula 2.0 08/19/17 07:36 36.8 64 22 140/75 (96) 99 08/19/17 07:05 78 18 95 Room Air 08/19/17 04:00 Nasal Cannula 2.0 08/19/17 03:57 36.4 73 18 144/81 (102) 94 Room Air 08/19/17 02:00 68 18 98 Nasal Cannula 1.0 08/19/17 00:01 Nasal Cannula 2.0 08/18/17 23:53 36.7 60 18 130/74 (92) 95 Nasal Cannula 0.5 08/18/17 20:00 Nasal Cannula 2.0 Lab Results: Results Past 24 Hours Test 08/18/17 20:06 08/18/17 20:45 08/18/17 23:55 08/19/17 02:01 Range/Units Bedside Glucose 64 71 92 70 70-99 mg/dl Test 08/19/17 03:59 08/19/17 05:22 08/19/17 06:25 08/19/17 11:02 Range/Units Bedside Glucose 186 274 203 70-99 mg/dl Prothrombin Time 66.9 9.0-12.0 SECONDS Prothromb Time International Ratio 6.6 0.9-1.1 Sodium Level 136 136-145 mmol/L Potassium Level 5.0 3.5-5.1 mmol/L Chloride Level 100 98-107 mmol/L Carbon Dioxide Level 31 21-32 mmol/L Anion Gap 5.0 3-11 mmol/L Blood Urea Nitrogen 52 7-18 mg/dl Creatinine 1.89 0.60-1.40 mg/dl Est Creatinine Clear Calc Drug Dose 34.8 ml/min Estimated GFR () 38.3 Estimated GFR (Non- 33.0 BUN/Creatinine Ratio 27.5 10-20 Random Glucose 255 70-99 mg/dl Calcium Level 8.7 8.5-10.1 mg/dl Test 08/19/17 16:33 Range/Units Bedside Glucose 289 70-99 mg/dl
[2017-08-19] MEDS: SIMVASTATIN 20 MG TAB PO SCH (19:39)
[2017-08-19] MEDS: TAMSULOSIN HCL 0.4 MG CAP PO SCH (19:40)
[2017-08-20 00:07] VITALS: BP 142/68; PULSE 59; TEMP 36.7; O2SAT 98
[2017-08-20] MEDS ORDERED: METOPROLOL TARTRATE 25 MG TAB PO ONE ×2 (02:32→11:15)
[2017-08-20] MEDS: IPRATROPIUM BROMIDE NEB SOLN 0.02% 2.5 ML VIAL INH SCH ×2 (03:00→07:03)
[2017-08-20] MEDS: LEVALBUTEROL 1.25MG/0.5ML NEB INH SCH ×2 (03:00→07:03)
[2017-08-20 03:01] LABS: EOS % 0.1 %; EOS ABS # 0.01 K/uL (0-0.5); HEMOGLOBIN 11.2 g/dL (14.0-18.0); IG# 0.03 K/uL (0.00-0.02); LYMPH % 9.9 %; LYMPH ABS # 0.81 K/uL (1.2-3.4); MEAN CELL VOLUME 88.3 fL (80-100); MEAN CORPUSCULAR HEMOGLOBIN 29.1 pg (25-34); MEAN CORPUSCULAR HGB CONC 32.9 g/dl (32-36); MONO % 10.8 %; MONO ABS # 0.88 K/uL (0.11-0.59); NEUT % 78.8 %; NEUT ABS # 6.43 K/uL (1.4-6.5); PLATELET COUNT 222 K/uL (130-400); RED CELL DISTRIBUTION WIDTH CV 13.9 % (11.5-14.5); RED CELL DISTRIBUTION WIDTH SD 45.1 fL (36.4-46.3); WHITE BLOOD COUNT 8.16 K/uL (4.8-10.8)
[2017-08-20 03:19] LABS: INR 2.1 (0.9-1.1)
[2017-08-20 03:21] LABS: CALCIUM 8.9 mg/dl (8.5-10.1); CREATININE 1.59 mg/dl (0.60-1.40); POTASSIUM 4.7 mmol/L (3.5-5.1)
[2017-08-20 03:30] VITALS: BP 116/75; PULSE 90; TEMP 36.7; O2SAT 97
[2017-08-20 07:03] VITALS: PULSE 71; O2SAT 97
[2017-08-20] MEDS: DOXYCYCLINE HYCLATE 100 MG CAP PO SCH (07:48)
[2017-08-20] MEDS: RANITIDINE HCL 150 MG TAB PO SCH (07:48)
[2017-08-20] MEDS: FINASTERIDE 5 MG TAB PO SCH (07:48)
[2017-08-20] MEDS: FLUTICASONE PROPIONATE NA SPR 16 GM BTL NAE SCH (07:49)
[2017-08-20] MEDS: ASPIRIN 81 MG ECTAB PO SCH (07:49)
[2017-08-20] MEDS: INSULIN ASPART 100 UNITS/ML 3 ML PEN SC SCH ×2 (07:52→11:34)
[2017-08-20 07:56] VITALS: BP 95/79; PULSE 86; TEMP 36.3; O2SAT 93
[2017-08-20] MEDS: INSULIN DETEMIR FLEXPEN/FLEX TOUCH 100 UNITS/ML 3ML SC SCH (07:57)
--- NOTE | 2017-08-20 08:02 | Discharge Instructions ---
Discharge Instructions Date of Service Aug 20, 2017. Admission Reason for Admission: Copd Exacerbation Discharge Discharge Diagnosis / Problem: AFIB RVR /COPD EXACERBATION Discharge Goals Goal(s): Increase independence, Improve disease control, Diagnostic testing, Therapeutic intervention Activity Recommendations Activity Limitations: resume your previous activity . Instructions / Follow-Up Instructions / Follow-Up HOSPITAL FOLLOW UP: ON 08/27/2017 @ 3:[address] Kg Monte MD [facility] CARDIOLOGY FOLLOW UP : 09/10/2017 @2:00 PM WITH Lynnette Mitchell PA-C Cardiology, [facility] Diet Patient's current hospital diet: Diabetes Type 2 Diet, AHA Diet (Heart Healthy) Discharge Diet Recommended Diet: AHA Diet (Heart Healthy), Diabetes Type 2 Diet Pending Studies Studies pending at discharge: no Laboratory Results Hemoglobin A1c Test 08/18/17 02:32 Range/Units Estimated Average Glucose 240 mg/dl Hemoglobin A1c 10.0 H 4.5-5.6 % Medical Emergencies . Who to Call and When: Medical Emergencies: If at any time you feel your situation is an emergency, please call 911 immediately. . Non-Emergent Contact Non-Emergency issues call your: Primary Care Provider . . "Provider Documentation" section prepared by Adrienne Waldrop. .
--- NOTE | 2017-08-20 10:12 | Pharmacy Progress Note ---
Pharmacy Glycemic Short Note 2 Date of Service Aug 20, 2017. OUTPATIENT ANTIDIABETIC REGIMEN: * Levemir 14 units SQ qAM, 8 units qPM * Novolog SSI (approx 10 units BID) * prednisone 5mg PO daily ASSESSMENT: 08/20/17 * BSGs have ranged 85-289 over the last 24 hours * Fasting BSGs at goal this AM with reduced dose of Levemir (vs home dose) * Prednisone still being given in higher dose than out-pt dose. Likely leading to post-prandial hyperglycemia. * Carb ratio was adjusted yesterday which produced marginal improvement. Current BSG pattern suggests need for larger prandial doses w/ breakfast and lunch yet smaller dose with dinner to prevent hypoglycemia later in the day. PLAN FOR INPATIENT GLYCEMIC CONTROL: * Basal insulin: (no change) * Levemir 14 units SQ daily in AM + 3 units SQ daily in PM with dinner * Bolus insulin: change parameters based on time of day/prednisone administration. Most aggressive for breakfast, then taper for lunch, and loosen parameters for dinner. No coverage with HS. * NovoLog per scale ACHS or Q6hrs while NPO * Goal Range: Low 110 mg/dL - High 140 mg/dL (same dose) * Correction Factor: 20 mg/dL/unit for breakfast and lunch; 25 mg/dl/unit for dinner (same dose) * Nutritional / Prandial insulin per carb ratio of 1 unit per 6 grams CHO consumed for breakfast (same dose) * Nutritional / Prandial insulin per carb ratio of 1 unit per 6 grams CHO consumed for lunch (increase in dose) * Nutritional / Prandial insulin per carb ratio of 1 unit per 8 grams CHO consumed for dinner (same dose) Discharge Recommendations: * A1c was greater than 9 this admission. Out-pt regimen and/or lifestyle modification likely needs adjusted to meet glycemic targets. Would recommend f/ u with PCP or endocrinology within 2 wks of discharge.
--- NOTE | 2017-08-20 10:57 | Cardiology Follow-Up ---
Subjective General Date of Service: Aug 20, 2017. Chief Complaint: SOB Pt evaluation today including: conversation w/ patient, physical exam, chart review, lab review, review of studies, review of inpatient medication list History of Present Illness Patient reports feeling ok. SOB at baseline. Wearing supplemental O2 currently but reports he does not wear this during the day, only at night at home. Denies chest pain. Trace ankle edema noted. No orthopnea, PND. No cough, fever, chills. Requesting to go home today Allergies Coded Allergies: Diltiazem (Verified Allergy, Mild, RASH, 10/11/16) Aspirin (Verified Adverse Reaction, Mild, GI SYMPTOMS, 10/11/16) Lisinopril (Verified Adverse Reaction, Unknown, cough, 10/11/16) Propoxyphene (Verified Adverse Reaction, Unknown, STOMACH UPSET DIARRHEA, 10/11/16) Social History Hx Tobacco Use In Past Year?: No Hx Alcohol Use - Type And Amou: No Hx Substance Use - Type And Am: No Problem List Medical Problems: (1) Atrial fibrillation with RVR Status: Acute (2) Atrial flutter with rapid ventricular response Status: Acute (3) Bradycardia Status: Acute (4) Congestive heart failure Status: Acute (5) COPD exacerbation Status: Acute (6) COPD with exacerbation Status: Acute (7) Dyspnea Status: Acute (8) Elevated troponin Status: Acute (9) Failure of outpatient treatment Status: Acute (10) Pneumonia Status: Acute (11) Pneumonia Status: Acute (12) Renal failure Status: Acute (13) SOB (shortness of breath) Status: Acute Review of Systems Respiratory: + dyspnea on exertion, No cough, No wheezing, No shortness of breath, No dyspnea at rest Cardiac: + edema, No chest pain, No orthopnea, No PND, No palpitations Physical Exam Vital Signs Last Vital Signs Documentation Date Time Temp Pulse Resp B/P (MAP) Pulse Ox O2 Delivery O2 Flow Rate FiO2 08/20/17 08:00 Nasal Cannula 2.0 08/20/17 07:56 36.3 86 19 95/79 (84) 93 08/16/17 22:57 98 Physical Exam Constitutional: General Apperance: overweight Level of Distress: NAD Ambulation: ambulating normally Psychiatric: Mental Status: active & alert Orientation: to time, to place, to person Head: normocephalic Eyes: Pupils: PERRLA Neck: supple Lungs: Auscultation: no wheezing, no rales/crackles, deminished air movement, decreased breath sounds Cardiovascular: Heart Auscultation: no murmurs, tachycardia, irregular rate rhythm Abdomen: Bowel Sounds: normal Inspection & Palpation: soft, non-distended Extremities: edema (1+ ankle edema) Assessment and Plan Assessment and Plan Admission with an acute on chronic obstructive pulmonary exacerbation, possible pneumonia. Treatment as per hospitalist service. Clinically improving Reports only wears O2 at night at home. Remains on 2 L 20/11. Consider 2 step vs weaning oxygen today Elevated Troponin No symptoms or electrocardiographic evidence of an acute coronary syndrome. ? Demand ischemia from the critical illness - pulmonary exacerbation, renal dysfunction, hypertension Echo with normal LV function, no wall motion abnormalities. Multifactorial fluid retention Mild acute decompensated diastolic heart failure, renal dysfunction, steroid therapy, dietary indiscretion Discontinue IV furosemide Oral diuretics held due to rising creatinine May need oral diuretics as outpatient. 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 Device interrogation performed on 08/08/2017, see above. No overt indication for repeat pacemaker interrogation this admission. Asymptomatic paroxysmal atrial fibrillation, now with persistent atrial fib with mildly elevated ventricular rates. CHADS2 Score of 4 out of 6 Continue Coumadin HR currently ranging 100-115, Increase Lopressor back to to 50 mg BID (home dose). He will receive additional dose of 25 mg this AM. -continue low dose digoxin He is asymptomatic. Hypertension. Now borderline hypotension Hold ARB for now to allow increase in metoprolol 50 mg BID (prior home dose) Hyperlipidemia. Continue statin Case to be discussed with Dr. Hall. 2-4 week hospital f/u to be arranged with Dr. Carrillo or SHARMIN to monitor rates/ rhythm/BP Cardiology Attending Physician: Patient seen and examined at the bedside. Denies chest pain, palpitations, or unusual shortness of breath. Cough present with minimal sputum production. Daughter is present at bedside. Lower extremity edema improved since admission. Patient anxiously awaiting discharge if possible. Offers no complaints at this time. Remains atrial fibrillation with mildly elevated rates on telemetry. PE: VSS. Tachycardia. General: NAD, awake alert and oriented 3. Heart: Irregular, normal S1, S2. No murmur. Lungs: Diminished breath sounds at the bases, mild end expiratory wheeze. Extremities: 1+ bilateral pedal edema. A/P: Agree with above PA-C history, physical exam, assessment and plan. Will titrate beta-chiquita today. Continue digoxin. Will schedule close outpatient cardiology follow-up in 7-10 days. No further inpatient testing at this time. Thank you for allowing us to participate in the care of your patient. Teofilo Hall DO, [facility] Laboratory Results Last 24 Hours Test 08/19/17 11:02 08/19/17 16:33 08/19/17 19:59 08/19/17 22:17 Bedside Glucose 203 mg/dl 289 mg/dl 210 mg/dl 168 mg/dl Test 08/20/17 02:37 08/20/17 02:43 08/20/17 06:24 Bedside Glucose 85 mg/dl 130 mg/dl White Blood Count 8.16 K/uL Red Blood Count 3.85 M/uL Hemoglobin 11.2 g/dL Hematocrit 34.0 % Mean Corpuscular Volume 88.3 fL Mean Corpuscular Hemoglobin 29.1 pg Mean Corpuscular Hemoglobin Concent 32.9 g/dl Platelet Count 222 K/uL Mean Platelet Volume 10.0 fL Neutrophils (%) (Auto) 78.8 % Lymphocytes (%) (Auto) 9.9 % Monocytes (%) (Auto) 10.8 % Eosinophils (%) (Auto) 0.1 % Basophils (%) (Auto) 0.0 % Neutrophils # (Auto) 6.43 K/uL Lymphocytes # (Auto) 0.81 K/uL Monocytes # (Auto) 0.88 K/uL Eosinophils # (Auto) 0.01 K/uL Basophils # (Auto) 0.00 K/uL RDW Standard Deviation 45.1 fL RDW Coefficient of Variation 13.9 % Immature Granulocyte % (Auto) 0.4 % Immature Granulocyte # (Auto) 0.03 K/uL Prothrombin Time 22.1 SECONDS Prothromb Time International Ratio 2.1 Sodium Level 138 mmol/L Potassium Level 4.7 mmol/L Chloride Level 103 mmol/L Carbon Dioxide Level 32 mmol/L Anion Gap 3.0 mmol/L Blood Urea Nitrogen 50 mg/dl Creatinine 1.59 mg/dl Est Creatinine Clear Calc Drug Dose 37.8 ml/min Estimated GFR () 47.2 Estimated GFR (Non- 40.7 BUN/Creatinine Ratio 31.3 Random Glucose 90 mg/dl Calcium Level 8.9 mg/dl Magnesium Level 2.1 mg/dl
[2017-08-20 12:05] VITALS: Ht 182.9 cm; Wt 90.2 kg
[2017-08-20 12:11] VITALS: BP 124/79; PULSE 102; TEMP 36.8; O2SAT 97
[2017-08-20] MEDS ORDERED: PRED20TA2 PO (12:52)
[2017-08-20] MEDS ORDERED: DXY100 PO (12:53)
[2017-08-20 13:03] VITALS: BP 124/79; PULSE 102; TEMP 36.8; O2SAT 97
--- NOTE | 2017-08-20 13:15 | Discharge Summary ---
Discharge Summary Date of Service Aug 20, 2017. Discharge Summary Admission Date: Aug 17, 2017 at 01:30 Discharge Date: Aug 20, 2017 Discharge Disposition: Home Principal Diagnosis: AFIB RVR /COPD EXACERBATION Medication Reconciliation New Medications: Prednisone (Prednisone Tab) 20 Mg Tab 0 PO DAILY, #7 TAB 2 TABS DAILY FOR 2 DAYS, THEN 1 TAB DAILY FOR 2 DAYS, THEN 1/2 TAB DAILY FOR 2 DAYS. Doxycycline Hyclate (Doxycycline Hyclate) 100 Mg Cap 100 MG PO BID for 3 Days, #6 CAP Continued Medications: Aspirin (Aspirin Ec) 81 Mg Tab 81 MG PO DAILY Digoxin (Digoxin) 0.125 Mg Tab 0.125 MG PO 3XWK TAKE EVERY SUNDAY/SUNDAY/SUNDAY. Finasteride (Proscar) 5 Mg Tab 5 MG PO DAILY, TAB Fluticasone Propionate (Fluticasone Propionate) 120 Sprays/6000 Mcg Inha 2 SPRAYS ALDEN DAILY Furosemide (Lasix) 20 Mg Tab 20 MG PO DAILY Insulin Aspart (Novolog Flexpen) 100 Units/Ml Inj 1 DOSE SQ ACHS SLIDING SCALE. APPROX 10UNITS BID Insulin Detemir (Levemir) 100 Units/Ml Inj 14 UNITS SQ QAM Insulin Detemir (Levemir) 100 Units/Ml Inj 8 UNITS SQ QPM Ipratropium-Albuterol (Combivent Respimat) 1 Aer Aer 1 PUFF PO QID Levalbuterol Hcl (Levalbuterol) 1.25 Mg/0.5 Ml Neb 0.5 ML INH Q6H PRN for SOB/Wheezing Levofloxacin (Levaquin) 500 Mg Tab 500 MG PO DAILY/PRN for 14 Days RESCUE KIT Metoprolol Tartrate (Lopressor) (Lopressor) 50 Mg Tab 50 MG PO BID, TAB Mometasone Furoate-Formoterol (Dulera 200/5 Mcg) 1 Aer Aer 2 PUFFS INH BID Nitroglycerin (Nitrostat) 0.4 Mg Sub 0.4 MG UT PRN NEEDED FOR CHEST PAIN : ONE TABLET UNDER THE TONGUE EVERY 5 MINUTES UP TO 3 DOSES. Prednisone (Prednisone) 5 Mg Tab 5 MG PO DAILY Ranitidine HCl (Ranitidine HCl) 150 Mg Tab 150 MG PO BID Simvastatin (Zocor) 20 Mg Tab 20 MG PO QPM, 0 Refills TAKE WITH EVENING MEAL. Tamsulosin Hcl (Flomax) 0.4 Mg Cap 0.4 MG PO HS Valsartan (Diovan) 80 Mg Tab 80 MG PO DAILY, TAB Warfarin Sod (Jantoven) 2.5 Mg Tab 1.25 MG PO DIRECTED, TAB 1/2 TABLET ON SUNDAY,SUNDAY,SUNDAY,SUNDAY Warfarin Sod (Jantoven) 2.5 Mg Tab 2.5 MG PO DIRECTED, TAB WHOLE TABLET ON SUNDAY,SUNDAY & SUNDAY Zolpidem Tartrate (Ambien) 5 Mg Tab 5 MG PO HS PRN for INSOMNIA Hospital Course ACUTE ON CHRONIC HYPOXEMIC RESPIRATORY FAILURE /COPD EXACERBATION respiratory status improved to baseline cont supplemental 02 ( was on 2 L 02 via nasal canula HS /has been using more frequently last few days due to SOB ) Pulmonology consulted appreciate input On prednisone 40 mg p.o. daily will do slow taper to reduce 10 mg in every fourth day Denies of any shortness of breath, no wheeze Improved exercise tolerance, ambulating independently without dyspnea on exertion no hypoxia on exertion AFIB RVR appreciate input form cardiology INR elevated to 6.6 No evidence of bleeding Given vitamin K, hold Coumadin Repeat INR in morning On Lopressor 25 mg 3 times daily - Patient has been intermittent rapid A. 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 Monte Pulmonology follow-up with Dr. Patrick Cardiology follow-up at [facility] cardiology at [facility] Total time spent on discharge = 35 min This includes examination of the patient, discharge planning, medication reconciliation, and communication with other providers. Discharge Instructions DI: Medical v5 Discharge Instructions Date of Service Aug 20, 2017. Admission Reason for Admission: Copd Exacerbation Discharge Discharge Diagnosis / Problem: AFIB RVR /COPD EXACERBATION Discharge Goals Goal(s): Increase independence, Improve disease control, Diagnostic testing, Therapeutic intervention Activity Recommendations Activity Limitations: resume your previous activity . Instructions / Follow-Up Instructions / Follow-Up HOSPITAL FOLLOW UP: ON 08/27/2017 @ 3:[address] Kg Monte MD [facility] CARDIOLOGY FOLLOW UP : 09/10/2017 @2:00 PM WITH Lynnette Mitchell PA-C Cardiology, [facility] Diet Patient's current hospital diet: Diabetes Type 2 Diet, AHA Diet (Heart Healthy) Discharge Diet Recommended Diet: AHA Diet (Heart Healthy), Diabetes Type 2 Diet Pending Studies Studies pending at discharge: no Laboratory Results Hemoglobin A1c Test 08/18/17 02:32 Range/Units Estimated Average Glucose 240 mg/dl Hemoglobin A1c 10.0 H 4.5-5.6 % Medical Emergencies . Who to Call and When: Medical Emergencies: If at any time you feel your situation is an emergency, please call 911 immediately. . Non-Emergent Contact Non-Emergency issues call your: Primary Care Provider . . "Provider Documentation" section prepared by Adrienne Waldrop. .
[2017-08-20] MEDS ORDERED: METOPROLOL TARTRATE 25 MG TAB PO SCH (14:00)
[2017-08-20] MEDS ORDERED: WARFARIN SOD 5 MG TAB PO SCH (16:00)
[2017-08-20] MEDS ORDERED: METOPROLOL TARTRATE 50 MG TAB PO SCH (21:00)
== END 2017-08-20 13:19 | disposition home or self-care (01) | DRG 190 ==
LOC: C.EDB 22:17 → C.2E 08-17 01:30 → ENRESERV 08-17 02:10
PROVIDERS: ADMIT Hospitalist; ATTEND Hospitalist
DX: J44.1 Chronic obstructive pulmonary disease with (acute) exacerbation (principal); J96.21 Acute and chronic respiratory failure with hypoxia; I21.A1 Myocardial infarction type 2; I50.31 Acute diastolic (congestive) heart failure; I13.0 Hypertensive heart and chronic kidney disease with heart failure and stage 1 through stage 4 chronic kidney disease, or unspecified chronic kidney disease; I48.0 Paroxysmal atrial fibrillation; N40.0 Benign prostatic hyperplasia without lower urinary tract symptoms; N18.3 Chronic kidney disease, stage 3 (moderate); E78.5 Hyperlipidemia, unspecified; R53.83 Other fatigue; I49.5 Sick sinus syndrome; D63.1 Anemia in chronic kidney disease; E11.65 Type 2 diabetes mellitus with hyperglycemia; Z87.891 Personal history of nicotine dependence; Z99.81 Dependence on supplemental oxygen; Z79.82 Long term (current) use of aspirin; Z95.0 Presence of cardiac pacemaker; Z79.52 Long term (current) use of systemic steroids; Z79.01 Long term (current) use of anticoagulants; Z80.9 Family history of malignant neoplasm, unspecified; Z83.3 Family history of diabetes mellitus; Z82.49 Family history of ischemic heart disease and other diseases of the circulatory system; Z84.1 Family history of disorders of kidney and ureter

== ENCOUNTER 2018-12-21 17:38 | Inpatient (IN) ==
[2018-12-21] MEDS ORDERED: SODIUM CHLORIDE 0.9% 1000ML 1,000 ML IV SCH (18:00)
[2018-12-21] MEDS ORDERED: ACETAMINOPHEN 1,000 MG/100 ML VIAL IV STA (18:18)
[2018-12-21 18:19] LABS: Basophils # (auto) 0.01 K/uL (0-0.2); Basophils % (auto) 0.1 %; Eosinophils # (auto) 0.02 K/uL (0-0.5); Eosinophils % (auto) 0.2 %; Hematocrit (blood only) 39.7 % (42-52); Hemoglobin 13.6 g/dL (14.0-18.0); Immature Granulocytes # (auto) 0.02 K/uL (0.00-0.02); Immature Granulocytes % (auto) 0.2 %; Lymphocytes # (auto) 0.97 K/uL (1.2-3.4); Lymphocytes % (auto) 10.8 %; Mean Corpuscular Hgb Conc 34.3 g/dL (32-36); Mean Corpuscular Volume 86.5 fL (80-100); Mean Platelet Volume 10.2 fL (7.4-10.4); Monocytes # (auto) 0.44 K/uL (0.11-0.59); Monocytes % (auto) 4.9 %; Neutrophils # (auto) 7.56 K/uL (1.4-6.5); Neutrophils % (auto) 83.8 %; Platelet Count 147 K/uL (130-400); RDW Coefficient of Variation 14.5 % (11.5-14.5); RDW Standard Deviation 46.1 fL (36.4-46.3); Red Blood Count 4.59 M/uL (4.7-6.1); White Blood Count 9.02 K/uL (4.8-10.8)
[2018-12-21 18:32] LABS: Base Excess VBG 3.6 mEq/L; HCO3 VBG 29 mmol/L; PCO2 VBG 48 mmHg (38-50); PO2 VBG 19 mmHg
[2018-12-21 18:38] LABS: Appearance Urine Clear (Clear); Bacteria Urine Automated Negative (Negative); Bilirubin Urine Negative (Negative); Blood Urine Trace (Negative); Cast Urine Automated 0 /lpf (0-5); Color Urine Yellow; Glucose Urine UA 2+ (Negative); Ketones Urine Negative (Negative); Leukocyte Esterase Urine Negative (Negative); Nitrite Urine Negative (Negative); Protein Urine 2+ (Negative); RBC Urine Automated 0-4 /hpf (0-4); Specific Gravity Urine 1.019 (1.000-1.030); Urobilinogen Urine Negative (Negative)
[2018-12-21 18:40] LABS: INR 2.4 (0.9-1.1); Partial Thromboplastin Ratio 1.8; Prothrombin Time 23.1 Seconds (9.0-12.0)
[2018-12-21 18:42] LABS: Oxygen Saturation VBG < 60.0 %
[2018-12-21 18:42] LABS: Albumin Level 3.2 gm/dl (3.4-5.0); BUN Creatinine Ratio 15.7 (10-20); Calcium 8.9 mg/dl (8.5-10.1); Creatinine Clr Calc Pharmacy 39.8 ml/min; Est GFR (African American) 41.7; Potassium 4.7 mmol/L (3.5-5.1)
[2018-12-21 18:44] LABS: Albumin Globulin Ratio 0.8 (0.9-2); Bilirubin,Total 1.6 mg/dl (0.2-1); Globulin 4.2 gm/dl (2.5-4.0); Total Protein 7.4 gm/dl (6.4-8.2)
--- NOTE | 2018-12-21 18:57 | XRay Report ---
XR chest 1V portable HISTORY: 78 years-old Male Sepsis acute sepsis COMPARISON: Chest CT 05/07/2018 TECHNIQUE: Portable AP view of the chest FINDINGS: Cardiac silhouette is enlarged, unchanged. Stable positioning of left subclavian pacer. Pulmonary vas cular congestion. Mixed interstitial and alveolar opacities are noted within the perihilar and lung b ase distributions which have progressed from comparison. Emphysema. Mild blunting of the costophrenic angles. No large pleural effusion or pneumothorax. Degenerative changes of the shoulders and spine. IMPRESSION: 1. Cardiomegaly with pulmonary vascular congestion. 2. Bilateral mid lung zone and bibasilar opacities suggest atelectasis or pneumonia. 3. Emphysema. The above report was generated using voice recognition software. It may contain grammatical, syntax o r spelling errors. Electronically signed by: Jesús Magaña M.D. 12/21/2018 6:56 PM
[2018-12-21 18:59] LABS: Partial Thromboplastin Time 50.1 Seconds (21.0-31.0)
[2018-12-21] MEDS ORDERED: cefTRIAXone SODIUM 2,000 MG in DEXTROSE 5% 50 ML IV SCH (19:15)
[2018-12-21] MEDS ORDERED: AZITHROMYCIN 500 MG in DEXTROSE 5% 250 ML IV SCH (19:15)
[2018-12-21] MEDS ORDERED: cefTRIAXone SODIUM 2000MG/70ML D5W IV ONE (19:25)
--- NOTE | 2018-12-21 20:04 | Emergency Department Note ---
Entered by Junior Hess acting as a scribe for History of Present Illness General Chief complaint: Fever Stated complaint: SOB,FEVER,DIABETIC LOW SUGAR Time Seen by Provider: 12/21/18 17:56 Source: patient History of Present Illness Onset (ago): day(s) (yesterday) Pain Consistency: + constant Quality: + other (fever) Associated symptoms: + other (Positive for cough, SOB, and diarrhea. Negative for CP, abdominal pain, nausea, vomiting, rashes, neck pain, dysuria, and hematuria.) Treatments prior to arrival: other (Tylenol) The patient is an 78 year old male who presents to the emergency department with complaints of a constant fever beginning yesterday. The patient states that he first developed a fever yesterday. He also complains of a cough, SOB, and diarrhea. He notes that he wears oxygen at night, but he reports that he has had to wear oxygen during the day for the last two days due to his SOB. He denies any CP, abdominal pain, nausea, vomiting, rashes, neck pain, dysuria, and hematuria. The patient states that he has a history of diabetes and he notes that his sugars have been up and down recently. He reports that he takes warfarin and aspirin. The patient states that he took Tylenol at 1530 today. Home Medications Home Medications Medication Instructions Recorded Confirmed Type Combivent Respimat 1 puff INHALATION QID 07/03/18 12/21/18 History Dulera 2 puff INHALATION BID 07/03/18 12/21/18 History Lantus Solostar U-100 Insulin 22 unit SUBCUT QAM 07/03/18 12/21/18 History Novolog Flexpen U-100 Insulin See Rx Instructions .ROUTE .COMPLEX 07/03/18 12/21/18 History aspirin 81 mg PO DAILY 07/03/18 12/21/18 History digoxin 0.125 mg PO 3XWK 07/03/18 12/21/18 History fluticasone furoate 2 spray INTRANASAL DAILY 07/03/18 12/21/18 History nitroglycerin [Nitrostat] 0.4 mg SUBLINGUAL UNKNOWN PRN 07/03/18 12/21/18 History ranitidine HCl 150 mg PO BID 07/03/18 12/21/18 History simvastatin [Zocor] 20 mg PO HS 07/03/18 12/21/18 History tamsulosin [Flomax] 0.4 mg PO HS 07/03/18 12/21/18 History zolpidem [Ambien] 5 mg PO HS PRN 07/03/18 12/21/18 History furosemide 20 mg PO BID 11/27/18 12/21/18 History warfarin 1.25 mg PO Q2D 11/27/18 12/21/18 History warfarin 2.5 mg PO Q2D 11/27/18 12/21/18 History albuterol sulfate 0.63 mg INHALATION QID PRN 12/21/18 12/21/18 History Allergies Allergy/AdvReac Type Severity Reaction Status Date / Time diltiazem Allergy Mild RASH Verified 12/21/18 19:54 aspirin AdvReac Mild GI SYMPTOMS Verified 12/21/18 19:54 lisinopril AdvReac Unknown cough Verified 12/21/18 19:53 propoxyphene AdvReac Unknown STOMACH Verified 11/27/18 18:04 UPSET DIARRHEA fluticasone furoate AdvReac Joint Pain Unverified 12/21/18 19:53 [From Breo Ellipta] vilanterol AdvReac Joint Pain Unverified 12/21/18 19:53 [From Breo Ellipta] Past Med/Surg History Medical History COPD (chronic obstructive pulmonary disease) (Chronic) "moderate" Hypertension (Chronic) BPH (benign prostatic hypertrophy) (Chronic) History of basal cell carcinoma (Chronic) CKD (chronic kidney disease) stage 3, GFR 30-59 ml/min (Chronic) Diabetes type I (Chronic) Paroxysmal atrial fibrillation (Chronic) Rapid atrial fibrillation Pleural plaque Bradyarrhythmia Atrial fibrillation with RVR (Acute) BPH (benign prostatic hyperplasia) (Acute) CKD (chronic kidney disease) (Acute) COPD (chronic obstructive pulmonary disease) (Acute) Diabetes insipidus (Acute) HTN (hypertension) (Acute) High cholesterol (Acute) Pacemaker (Acute) Paroxysmal A-fib (Acute) Surgical History H/O nasal polypectomy (Resolved) History of surgery of head (Resolved) "correct skull abnormality- left temporoparietal ; 1992" History of inguinal hernia repair (Resolved) H/O basal cell carcinoma excision (Acute) H/O inguinal hernia repair (Acute) H/O nasal polypectomy (Acute) History of head, eyes, ears, nose, and throat (HEENT) surgery (Acute) Family History Other No significant family history Social History Preferred Language: Austrian Communication Ability: Effective Pattern Scratcher Required: No Beliefs That Will Affect Care: None Current Living Situation: Spouse Feels Safe at Home: Yes Smoking Status: Former smoker Tobacco Type: cigarettes ; Second Hand Exposure: No ; Hx Alcohol Use: No Hx Substance Use: No Review of Systems See HPI for pertinent positives & negatives. and A total of 10 systems reviewed and were otherwise negative Physical Exam Vital Signs Vital Signs - 24 hr 12/21/18 17:47 12/21/18 18:04 12/21/18 18:21 Temperature 39.3 C H Temperature Source Oral Sepsis Recent Fever Within 48 Hours Yes Sepsis New/Unexplained Change in Mental Status No Sepsis Action Taken by Nursing Physician Notified Pulse Rate 107 H 107 H 109 H Pulse Rate [Apical] Pulse Rate from SpO2 Sensor 108 H Pulse Rhythm Regular Respiratory Rate 22 22 22 Respiratory Effort / Characteristics Non-Labored Spontaneous Blood Pressure 168/77 H 159/90 H Blood Pressure [Left Arm] Blood Pressure Mean 107 113 Blood Pressure Mean [Left Arm] Blood Pressure Position Sitting Pulse Oximetry 91 91 95 Oxygen Delivery Method Nasal Cannula Nasal Cannula Nasal Cannula Oxygen Flow Rate 4 4 4 12/21/18 18:30 12/21/18 19:12 Temperature Temperature Source Sepsis Recent Fever Within 48 Hours Sepsis New/Unexplained Change in Mental Status Sepsis Action Taken by Nursing Pulse Rate 110 H Pulse Rate [Apical] 119 H Pulse Rate from SpO2 Sensor 111 H Pulse Rhythm Respiratory Rate 24 28 H Respiratory Effort / Characteristics Blood Pressure 166/92 H Blood Pressure [Left Arm] 116/64 Blood Pressure Mean 116 Blood Pressure Mean [Left Arm] 81 Blood Pressure Position Pulse Oximetry 95 93 Oxygen Delivery Method Nasal Cannula Nasal Cannula Oxygen Flow Rate 4 4 GENERAL: Distressed. HENT: Exam performed. - Head: Normocephalic and atraumatic. - Right Ear: External ear normal. No mastoid tenderness. - Left Ear: External ear normal. No mastoid tenderness. - Mouth/Throat: The oropharynx is clear and moist. No trismus in the jaw. No dental abscesses or uvula swelling. No oropharyngeal exudate or tonsillar abscesses. EYES: Conjunctivae and EOM are normal. Pupils are equal, round, and reactive to light. Right eye exhibits no discharge. Left eye exhibits no discharge. No scleral icterus. NECK: Normal range of motion. Neck supple. No JVD present. No spinous process tenderness present. No carotid bruit present. No rigidity. No tracheal deviation and normal range of motion present. No Brudzinski's sign and no Kernig's sign noted. CV: Tachycardic rate, irregular rhythm, normal heart sounds and intact distal pulses. There is no peripheral edema. Palpable radial pulses bue. PULM/CHEST: Rhonchi bilaterally. - Chest Wall: He exhibits no tenderness. ABD: The abdomen is soft. Bowel sounds are normal. He has no distension. No mass is present. There is no tenderness. There is no rebound, no guarding, no Morejon's sign and no tenderness at McBurney's point. Rovsig negative. MUSC/SKEL: Normal range of motion. There is no peripheral edema, tenderness or deformity. LYMPH: No cervical adenopathy. NEURO: He is alert and oriented to person, place, and time. He has normal strength. No cranial nerve deficit or sensory deficit. Coordination and gait normal. GCS eye subscore is 4. GCS verbal subscore is 5. GCS motor subscore is 6. Cerebellar tests wnl. SKIN: Skin is warm and dry. He is not diaphoretic. PSYCH: He has a normal mood and affect. Behavior is normal. Judgment and thought content normal. Course 1756: The patient was evaluated in room C12. A complete history and physical exam was performed. Patient is tachycardic, hypoxic and febrile. Code sepsis was called. Large-bore IV access was obtained and fluid resuscitation began. 1900: Patient's blood pressure stable. Chest x-ray shows cardiomegaly with pulmonary vascular congestion. Possible infiltrate under the congestion. Given the patient's stable blood pressure and his findings of cardia megaly with congestion, the patient will not be aggressively hydrated with 30 cc/kg bolus but was still received gentle hydration. 1911: I reevaluated the patient. His vitals were stable on nasal cannula oxygen. His chest X-ray showed a possible pneumonia and cardiomegaly with fluid overload. His lactic acid was 2.4. The patient will be treated for community acquired pneumonia with Rocephin and Azithromycin. I discussed the findings and the treatment plan with the patient. He expresses agreement and understanding. [facility] The patient will be evaluated for further management. Consultations Consultation #1: I reviewed the patient's case with Dr. Burns - Hospitalist, [facility]. He will evaluate the patient for further management. Time: 19:12 Administered Medications Ceftriaxone Sodium 2,000 mg/ (Dextrose) 70 mls @ 100 mls/hr IV Q24H RASHEL; Protocol Stop: 12/28/18 19:14 Last Admin: 12/21/18 19:30 Dose: 100 mls/hr Documented by: [id number] Discontinued Medications Ceftriaxone Sodium (Rocephin) Confirm Administered Dose 2,000 mg IV .STK-MED ONE Stop: 12/21/18 19:26 Last Admin: 12/21/18 19:30 Dose: Not Given Documented by: [id number] Sodium Chloride (Nss 1000ml) 1,000 mls @ 999 mls/hr IV .Q1H1M RASHEL Stop: 12/21/18 19:00 Last Infusion: 12/21/18 18:25 Dose: 125 mls/hr Documented by: [id number] Admin: 12/21/18 18:17 Dose: 999 mls/hr Documented by: [id number] Acetaminophen (Ofirmev) 1,000 mg in 100 mls @ 400 mls/hr IV NOW STA Stop: 12/21/18 18:32 Last Infusion: 12/21/18 18:42 Dose: 0 mls/hr Documented by: [id number] Admin: 12/21/18 18:24 Dose: 400 mls/hr Documented by: [id number] Medical Decision Making Medical Records Attestation: I reviewed the patient's medical records. Home Medications Current Medication List: was personally reviewed by me Laboratory Data Attestation: I reviewed the patient's lab results. Result diagrams: 12/21/18 18:07 12/21/18 18:07 Lab Results 12/21/18 12/21/18 12/21/18 Range/Units 18:07 18:07 18:07 WBC 9.02 (4.8-10.8) K/uL RBC 4.59 L (4.7-6.1) M/uL Hgb 13.6 L (14.0-18.0) g/dL Hct 39.7 L (42-52) % MCV 86.5 (80-100) fL MCH 29.6 (25-34) pg MCHC 34.3 (32-36) g/dL RDW Std Deviation 46.1 (36.4-46.3) fL RDW Coeff of Samira 14.5 (11.5-14.5) % Plt Count 147 (130-400) K/uL MPV 10.2 (7.4-10.4) fL Immature Gran % (Auto) 0.2 % Neut % (Auto) 83.8 % Lymph % (Auto) 10.8 % [place] % (Auto) 4.9 % Eos % (Auto) 0.2 % Baso % (Auto) 0.1 % Immature Gran # (Auto) 0.02 (0.00-0.02) K/uL Neut # (Auto) 7.56 H (1.4-6.5) K/uL Lymph # (Auto) 0.97 L (1.2-3.4) K/uL [place] # (Auto) 0.44 (0.11-0.59) K/uL Eos # (Auto) 0.02 (0-0.5) K/uL Baso # (Auto) 0.01 (0-0.2) K/uL PT 23.1 H (9.0-12.0) Seconds INR 2.4 H (0.9-1.1) APTT 50.1 H* (21.0-31.0) Seconds PTT Ratio 1.8 VBG pH (7.36-7.41) VBG pCO2 (38-50) mmHg VBG pO2 mmHg VBG HCO3 mmol/L VBG O2 Saturation % VBG Base Excess mEq/L Barometric Pressure mm/Hg Sodium 135 L (136-145) mmol/L Potassium 4.7 (3.5-5.1) mmol/L Chloride 99 (98-107) mmol/L Carbon Dioxide 29 (21-32) mmol/L Anion Gap 7.0 (3-11) BUN 27 H (7-18) mg/dl Creatinine 1.75 H (0.6-1.4) mg/dl Est Cr Clr Drug Dosing 39.8 ml/min Est GFR ( Amer) 41.7 Est GFR (Non-Af Amer) 36.0 BUN/Creatinine Ratio 15.7 (10-20) Glucose 165 H (70-99) mg/dl POC Glucose (70-99) Lactate (0.4-2.0) mmol/L Calcium 8.9 (8.5-10.1) mg/dl Magnesium 2.0 (1.8-2.4) mg/dl Total Bilirubin 1.6 H (0.2-1) mg/dl AST 12 L (15-37) U/L ALT 18 (12-78) U/L Alkaline Phosphatase 109 (45-117) U/L NT-Pro-B Natriuret Pep 4739 H (0-1800) pg/ml Total Protein 7.4 (6.4-8.2) gm/dl Albumin 3.2 L (3.4-5.0) gm/dl Globulin 4.2 H (2.5-4.0) gm/dl Albumin/Globulin Ratio 0.8 L (0.9-2) Procalcitonin (0-0.5) ng/ml Urine Color Urine Appearance (Clear) Urine pH (4.5-7.5) Ur Specific Show Low (1.000-1.030) Urine Protein (Negative) Urine Glucose (UA) (Negative) Urine Ketones (Negative) Urine Blood (Negative) Urine Nitrite (Negative) Urine Bilirubin (Negative) Urine Urobilinogen (Negative) Ur Leukocyte Esterase (Negative) Urine WBC (Auto) (0-5) /hpf Urine RBC (Auto) (0-4) /hpf U Hyaline Cast (Auto) (0-5) /lpf U Epithel Cells (Auto) (0-5) /lpf Urine Bacteria (Auto) (Negative) 12/21/18 12/21/18 12/21/18 Range/Units 18:07 18:07 18:07 WBC (4.8-10.8) K/uL RBC (4.7-6.1) M/uL Hgb (14.0-18.0) g/dL Hct (42-52) % MCV (80-100) fL MCH (25-34) pg MCHC (32-36) g/dL RDW Std Deviation (36.4-46.3) fL RDW Coeff of Samira (11.5-14.5) % Plt Count (130-400) K/uL MPV (7.4-10.4) fL Immature Gran % (Auto) % Neut % (Auto) % Lymph % (Auto) % [place] % (Auto) % Eos % (Auto) % Baso % (Auto) % Immature Gran # (Auto) (0.00-0.02) K/uL Neut # (Auto) (1.4-6.5) K/uL Lymph # (Auto) (1.2-3.4) K/uL [place] # (Auto) (0.11-0.59) K/uL Eos # (Auto) (0-0.5) K/uL Baso # (Auto) (0-0.2) K/uL PT (9.0-12.0) Seconds INR (0.9-1.1) APTT (21.0-31.0) Seconds PTT Ratio VBG pH (7.36-7.41) VBG pCO2 (38-50) mmHg VBG pO2 mmHg VBG HCO3 mmol/L VBG O2 Saturation % VBG Base Excess mEq/L Barometric Pressure mm/Hg Sodium (136-145) mmol/L Potassium (3.5-5.1) mmol/L Chloride (98-107) mmol/L Carbon Dioxide (21-32) mmol/L Anion Gap (3-11) BUN (7-18) mg/dl Creatinine (0.6-1.4) mg/dl Est Cr Clr Drug Dosing ml/min Est GFR ( Amer) Est GFR (Non-Af Amer) BUN/Creatinine Ratio (10-20) Glucose (70-99) mg/dl POC Glucose (70-99) Lactate 2.4 H* (0.4-2.0) mmol/L Calcium (8.5-10.1) mg/dl Magnesium (1.8-2.4) mg/dl Total Bilirubin (0.2-1) mg/dl AST (15-37) U/L ALT (12-78) U/L Alkaline Phosphatase (45-117) U/L NT-Pro-B Natriuret Pep Cancelled (0-1800) pg/ml Total Protein (6.4-8.2) gm/dl Albumin (3.4-5.0) gm/dl Globulin (2.5-4.0) gm/dl Albumin/Globulin Ratio (0.9-2) Procalcitonin 7.22 H (0-0.5) ng/ml Urine Color Urine Appearance (Clear) Urine pH (4.5-7.5) Ur Specific Show Low (1.000-1.030) Urine Protein (Negative) Urine Glucose (UA) (Negative) Urine Ketones (Negative) Urine Blood (Negative) Urine Nitrite (Negative) Urine Bilirubin (Negative) Urine Urobilinogen (Negative) Ur Leukocyte Esterase (Negative) Urine WBC (Auto) (0-5) /hpf Urine RBC (Auto) (0-4) /hpf U Hyaline Cast (Auto) (0-5) /lpf U Epithel Cells (Auto) (0-5) /lpf Urine Bacteria (Auto) (Negative) 12/21/18 12/21/18 12/21/18 Range/Units 18:09 18:19 18:31 WBC (4.8-10.8) K/uL RBC (4.7-6.1) M/uL Hgb (14.0-18.0) g/dL Hct (42-52) % MCV (80-100) fL MCH (25-34) pg MCHC (32-36) g/dL RDW Std Deviation (36.4-46.3) fL RDW Coeff of Samira (11.5-14.5) % Plt Count (130-400) K/uL MPV (7.4-10.4) fL Immature Gran % (Auto) % Neut % (Auto) % Lymph % (Auto) % [place] % (Auto) % Eos % (Auto) % Baso % (Auto) % Immature Gran # (Auto) (0.00-0.02) K/uL Neut # (Auto) (1.4-6.5) K/uL Lymph # (Auto) (1.2-3.4) K/uL [place] # (Auto) (0.11-0.59) K/uL Eos # (Auto) (0-0.5) K/uL Baso # (Auto) (0-0.2) K/uL PT (9.0-12.0) Seconds INR (0.9-1.1) APTT (21.0-31.0) Seconds PTT Ratio VBG pH 7.40 (7.36-7.41) VBG pCO2 48 (38-50) mmHg VBG pO2 19 mmHg VBG HCO3 29 mmol/L VBG O2 Saturation < 60.0 % VBG Base Excess 3.6 mEq/L Barometric Pressure 737.0 mm/Hg Sodium (136-145) mmol/L Potassium (3.5-5.1) mmol/L Chloride (98-107) mmol/L Carbon Dioxide (21-32) mmol/L Anion Gap (3-11) BUN (7-18) mg/dl Creatinine (0.6-1.4) mg/dl Est Cr Clr Drug Dosing ml/min Est GFR ( Amer) Est GFR (Non-Af Amer) BUN/Creatinine Ratio (10-20) Glucose (70-99) mg/dl POC Glucose 192 H (70-99) Lactate (0.4-2.0) mmol/L Calcium (8.5-10.1) mg/dl Magnesium (1.8-2.4) mg/dl Total Bilirubin (0.2-1) mg/dl AST (15-37) U/L ALT (12-78) U/L Alkaline Phosphatase (45-117) U/L NT-Pro-B Natriuret Pep (0-1800) pg/ml Total Protein (6.4-8.2) gm/dl Albumin (3.4-5.0) gm/dl Globulin (2.5-4.0) gm/dl Albumin/Globulin Ratio (0.9-2) Procalcitonin (0-0.5) ng/ml Urine Color Yellow Urine Appearance Clear (Clear) Urine pH 7.0 (4.5-7.5) Ur Specific Show Low 1.019 (1.000-1.030) Urine Protein 2+ H (Negative) Urine Glucose (UA) 2+ H (Negative) Urine Ketones Negative (Negative) Urine Blood Trace H (Negative) Urine Nitrite Negative (Negative) Urine Bilirubin Negative (Negative) Urine Urobilinogen Negative (Negative) Ur Leukocyte Esterase Negative (Negative) Urine WBC (Auto) 1-5 (0-5) /hpf Urine RBC (Auto) 0-4 (0-4) /hpf U Hyaline Cast (Auto) 0 (0-5) /lpf U Epithel Cells (Auto) 5-10 H (0-5) /lpf Urine Bacteria (Auto) Negative (Negative) Imaging Data Radiologist's Impression: Radiology results as stated below per my review and the radiologist's interpretation: XR chest 1V portable FINDINGS: Cardiac silhouette is enlarged, unchanged. Stable positioning of left subclavian pacer. Pulmonary vascular congestion. Mixed interstitial and alveolar opacities are noted within the perihilar and lung base distributions which have progressed from comparison. Emphysema. Mild blunting of the costophrenic angles. No large pleural effusion or pneumothorax. Degenerative changes of the shoulders and spin e. IMPRESSION: 1. Cardiomegaly with pulmonary vascular congestion. 2. Bilateral mid lung zone and bibasilar opacities suggest atelectasis or pneumonia. 3. Emphysema. The above report was generated using voice recognition software. It may contain grammatical, syntax or spelling errors. Electronically signed by: Jesús Magaña M.D. 12/21/2018 6:56 PM ECG Data Attestation: I personally reviewed and interpreted this ECG as follows: Indication: weakness Rate (beats per minute): 113 Rhythm: atrial fibrillation Findings: no ST depression and no ST elevation Additional Comments: QRS and QTc are within normal limits. Blood Pressure Blood Pressure Findings: Normal blood pressure Blood Pressure Disposition: did not require urgent referral MDM Narrative 175: The patient was evaluated in room C12. A complete history and physical exam was performed. Patient is tachycardic, hypoxic and febrile. Code sepsis was called. Large-bore IV access was obtained and fluid resuscitation began. 0: Patient's blood pressure stable. Chest x-ray shows cardiomegaly with pulmonary vascular congestion. Possible infiltrate under the congestion. Given the patient's stable blood pressure and his findings of cardia megaly with fouzia estion, the patient will not be aggressively hydrated with 30 cc/kg bolus but was still received gentle hydration. 1911: I reevaluated the patient. His vitals were stable on nasal cannula oxygen. His chest X-ray showed a possible pneumonia and cardiomegaly with fluid overload. His lactic acid was 2.4. The patient will be treated for community acquired pneumonia with Rocephin and Azithromycin. I discussed the findings and the treatment plan with the patient. He expresses agreement and understanding. I spoke with Dr. Burns of the [facility]. The patient will be evaluated for further management. Impression & Plan Sepsis, Community acquired pneumonia, bilateral, Hypoxia Critical Care Time Critical Care Time: Yes Total Critical Care Time: 70 I have personally spent 70 minutes of critical care time in the direct yamileth gement of this patient. This includes bedside care, interpretation of diagnostic studies, and testing, discussion with consultants, patient, and family members, and other required patient management activities. This 70 minutes is in excess of all separately billable procedures. Discharge Plan Visit Data Chief Complaint: Fever Stated Complaint: SOB,FEVER,DIABETIC LOW SUGAR ED Provider: Naren Mckee Discharge Problem: Sepsis, Community acquired pneumonia, bilateral, Hypoxia Patient Disposition: Being Evaluated by Hospitalist Forms Stand Alone Forms: My [facility] Prescriptions Prescriptions: No Action tamsulosin [Flomax] 0.4 mg Capsule 0.4 mg PO HS RF: 0 simvastatin [Zocor] 20 mg Tablet 20 mg PO HS RF: 0 ranitidine HCl 150 mg Tablet 150 mg PO BID RF: 0 nitroglycerin [Nitrostat] 0.4 mg Tablet, Sublingual 0.4 mg Sublingual UNKNOWN PRN (Reason: Chest Pain) RF: 0 aspirin 81 mg Tablet,Chewable 81 mg PO DAILY RF: 0 digoxin 125 mcg Tablet 0.125 mg PO 3XWK RF: 0 zolpidem [Ambien] 5 mg Tablet 5 mg PO HS PRN (Reason: Insomnia) RF: 0 Novolog Flexpen U-100 Insulin 100 unit/mL Insulin Pen See Rx Instructions .ROUTE .COMPLEX RF: 0 fluticasone furoate 27.5 mcg/actuation Hamer,Suspension 2 spray Intranasal DAILY RF: 0 Lantus Solostar U-100 Insulin 100 unit/mL (3 mL) Insulin Pen 22 unit SUBCUT QAM RF: 0 Dulera 100-5 mcg/actuation Hfa Aerosol Inhaler 2 puff INHALATION BID RF: 0 Combivent Respimat 20-100 mcg/actuation Mist 1 puff INHALATION QID RF: 0 warfarin 2.5 mg tablet 1.25 mg PO Q2D RF: 0 warfarin 2.5 mg tablet 2.5 mg PO Q2D RF: 0 furosemide 20 mg Tablet 20 mg PO BID RF: 0 albuterol sulfate 0.63 mg/3 mL Solution For Nebulization 0.63 mg INHALATION QID PRN (Reason: Shortness Of Breath Or Wheezing) RF: 0 Referrals Referrals: Kg Monte MD [Primary Care Provider] - The scribe's documentation has been prepared under my direction and personally reviewed by me in its entirety. I confirm that the note above accurately reflects all work, treatment, procedures, and medical decision making performed by me.
[2018-12-21] MEDS ORDERED: ONDANSETRON INJ 2 MG/ML 2 ML VIAL IV PRN (21:49)
[2018-12-21] MEDS ORDERED: ZOLPIDEM TARTRATE 5 MG TAB PO PRN (21:49)
[2018-12-21] MEDS ORDERED: NITROGLYCERIN SL 0.4 MG/TAB TAB SL PRN ×2 (21:49)
[2018-12-21] MEDS ORDERED: DIGOXIN 0.125 MG TAB PO SCH (21:49)
--- NOTE | 2018-12-21 22:20 | History and Physical Report ---
DATE OF ADMISSION: 12/21/2018 CHIEF COMPLAINT: Shortness of breath and fever. HISTORY OF PRESENT ILLNESS: This is an 78-year-old male with past medical history significant for type 1 diabetes, hyperlipidemia, diabetic peripheral neuropathy, COPD, nocturnal hypoxia, uses 2 liters while sleeping, history of bronchiectasis, interstitial lung disease, asbestosis, pneumoconiosis, paroxysmal atrial fibrillation, on Coumadin, hypertension, chronic kidney disease stage III, BPH, eczematous dermatitis, hard of hearing, tachybrady syndrome status post cardiac pacemaker, presents with shortness of breath. The patient says since yesterday, he is coughing up some orange-colored sputum, also developed fever yesterday and shortness of breath got progressively worse today, so came to the ER. He was spiking temperatures in the ER and tachycardic. Lactic acid was 2.4. Blood pressure was okay. Chest xray shows pneumonia, received Rocephin and azithromycin. Currently resting comfortably, hemodynamically stable, saturating okay on oxygen, talking in full sentences. Family in the room. Denies any headache, no dizziness, no blurred visions, hard of hearing. He always has some runny nose, no sore throat, no difficulty swallowing and eats regular diet. He says he has checked for swallow test a couple of times and it is okay. Denies any chest pain, no nausea, no vomiting, no abdominal pain. Has some chronic loose stools. Denies any blood in the stools. No burning micturition, no hematuria. No swelling in the legs, no rash. He is on Coumadin and he bruises easily. Ambulates okay without any help at home. Sleeps okay. Appetite is okay. No recent weight gain. ALLERGIES: DILTIAZEM, ASPIRIN, LISINOPRIL, PROPOXYPHENE, BREO ELLIPTA. PAST MEDICAL HISTORY: As mentioned above. PAST SURGICAL HISTORY: Colonoscopy with lesion removal, head surgery, corrected skull abnormality, needle biopsy of prostate, nasal polyp removal, inguinal hernia repair. MEDICATIONS: The patient is on Lasix 20 mg p.o. b.i.d., Zocor 20 mg p.o. at bedtime, Lopressor 250 mg p.o. b.i.d., Coumadin as directed, digoxin 125 mcg 1 tablet Sunday, Sunday and Sunday, Zantac 150 mg p.o. b.i.d., Lantus 22 units in a.m., Flomax 0.4 mg p.o. at bedtime, Flonase 2 sprays into each nostril daily, Xopenex nebulization p.r.n., Combivent 1 puff q.i.d., Ambien 5 mg p.o. at bedtime p.r.n., tramadol 50 mg p.o. 8 hours p.r.n., nitroglycerin 0.4 mg sublingual p.r.n., aspirin 81 mg p.o. daily. FAMILY HISTORY: Significant for brother has asthma, diabetes. Father has oesophageal ulcers, of complication of operations in 50's. Daughter has cancer. SOCIAL HISTORY: , lives with his . Former smoker, smoked average of 2 packs a day for 40 years, quit in 1995. Alcohol 2 cans of beer per week. No drug use. REVIEW OF SYMPTOMS: As per HPI. Rest of review of systems negative. PHYSICAL EXAMINATION: GENERAL: The patient is old and frail, not in acute distress. VITAL SIGNS: Temperature 39.3, pulse 119, respiratory rate 28, blood pressure 116/64, oxygen 93% on 4 liters. HEENT: No pallor, no icterus. Pupils equal, round, reactive to light. NECK: No JVD, no neck masses, no carotid bruits. CARDIOVASCULAR: S1, S2 heard. Tachycardia. No murmurs. RESPIRATORY SYSTEM: Normal AP diameter. No accessory muscle use. No wheezing. Mild bibasilar crackles. ABDOMEN: Soft, bowel sounds present, nontender. No distention. CENTRAL NERVOUS SYSTEM: Cranial nerves II-XII grossly intact, nonfocal. EXTREMITIES: No edema, no erythema. LABORATORY DATA: WBC 9, hemoglobin 13.6, hematocrit 39.7, platelets 147. PTT 23.1, INR 2.4, APTT of 50.1. Sodium 135, potassium 4.7, chloride 97, bicarbonate 29, BUN 27, creatinine 1.75. Serum glucose 165. Lactate 2.4. Calcium 8.9, magnesium 2, total bilirubin 1.6, AST 12, ALT 18, alkaline phosphatase 109. Procalcitonin is 1.22. Urinalysis negative. Chest x-ray, cardiomegaly with pulmonary vascular congestion, bilateral mid lung zone and lower lobe pneumonia vs atelectasis. EKG: AFib with RVR, rate of 113. Nonspecific ST abnormality. ASSESSMENT AND PLAN: This is an 78-year-old male who presents with sepsis, possible community-acquired pneumonia. 1. Sepsis secondary to possible community-acquired pneumonia, presented with fevers, shortness of breath requiring oxygen, tachycardia and lactic acid 2.4. Chest x-ray possible pneumonia. The patient also has history of COPD, interstitial lung disease and asbestosis, on 2 liters oxygen at nighttime. Currently, no wheezing on exam and has some congestion on chest x-ray, . Will continue IV normal saline 80 mL per hour. Received Rocephin and azithromycin in the ER. Continue Rocephin and doxycycline. Follow the cultures. Follow the response. We will follow repeat lactic acid. Closely monitor in the tele floor and we will put him on neb around the clock and home inhalers. 2. Chronic obstructive pulmonary disease, interstitial lung disease, status post asbestosis exposure. Continue his home inhaler with nebs around the clock. 3. Atrial fibrillation, tachybrady syndrome, status post pacemaker. Continue his home Lopressor, digoxin and Coumadin. INR is 2.4. Follow daily PT/INR. 3. CKD Stage III presented with creatinine of 1.7, seems to be at baseline. We will follow the labs in a.m. 4. Diabetes. Continue home Lantus and insulin sliding scale. Monitor his blood sugars. Follow his HbA1c levels. 5. History of benign prostatic hypertrophy. Continue his Flomax. 6. Hypertension. Continue Lopressor. Holding the diuretics. Labs in a.m. Follow the blood pressure. 7. Hyperlipidemia. Continue statin. 8. Gastroesophageal reflux disease. Continue Zantac. 9. Deep venous thrombosis prophylaxis, on Coumadin. INR therapeutic. DISPOSITION: Closely monitor in the tele floor. Level 1 full code. PT and OT per discharge. Social Service to help with discharge planning. ALBERT
[2018-12-21] MEDS: SODIUM CHLORIDE 0.9% 1000ML 1,000 ML IV SCH (22:44)
[2018-12-21] MEDS ORDERED: INSULIN ASPART 100 UNITS/ML 3 ML PEN SC STA (23:04)
[2018-12-21] MEDS: TAMSULOSIN HCL 0.4 MG CAP PO SCH (23:20)
[2018-12-21] MEDS: DOXYCYCLINE HYCLATE 100 MG in DEXTROSE 5% 100 ML IV SCH (23:25)
[2018-12-21] MEDS: SIMVASTATIN 20 MG TAB PO SCH (23:26)
[2018-12-21] MEDS: IPRATROPIUM BROMIDE/ALBUTEROL respimat INH INH SCH (23:27)
[2018-12-22] MEDS: DULERA~ORDER AWAITING ACTION SCH ×2 (00:23→08:04)
[2018-12-22] MEDS: ACETAMINOPHEN 325 MG TAB PO PRN ×2 (00:36→23:20)
[2018-12-22] MEDS ORDERED: XOPENEX/ATROVENT 1.25mg/0.5MG NEB COMBO NEB SCH (01:00)
[2018-12-22] MEDS: LEVALBUTEROL 1.25MG/0.5ML NEB INH SCH ×4 (01:25→19:20)
[2018-12-22] MEDS: IPRATROPIUM BROMIDE NEB SOLN 0.02% 2.5 ML VIAL INH SCH ×4 (01:25→19:20)
[2018-12-22] MEDS ORDERED: SODIUM CHLORIDE 0.9% 500 ML IV SCH (02:45)
[2018-12-22 05:38] LABS: Basophils # (auto) 0.01 K/uL (0-0.2); Basophils % (auto) 0.1 %; Eosinophils # (auto) 0.01 K/uL (0-0.5); Eosinophils % (auto) 0.1 %; Hematocrit (blood only) 32.8 % (42-52); Hemoglobin 10.8 g/dL (14.0-18.0); Immature Granulocytes # (auto) 0.03 K/uL (0.00-0.02); Immature Granulocytes % (auto) 0.4 %; Lymphocytes # (auto) 0.96 K/uL (1.2-3.4); Lymphocytes % (auto) 12.1 %; Mean Corpuscular Hgb Conc 32.9 g/dL (32-36); Mean Corpuscular Volume 85.6 fL (80-100); Mean Platelet Volume 10.2 fL (7.4-10.4); Monocytes # (auto) 0.46 K/uL (0.11-0.59); Monocytes % (auto) 5.8 %; Neutrophils # (auto) 6.49 K/uL (1.4-6.5); Neutrophils % (auto) 81.5 %; Platelet Count 112 K/uL (130-400); RDW Coefficient of Variation 14.6 % (11.5-14.5); RDW Standard Deviation 45.9 fL (36.4-46.3); Red Blood Count 3.83 M/uL (4.7-6.1); White Blood Count 7.96 K/uL (4.8-10.8)
[2018-12-22 05:48] LABS: INR 2.2 (0.9-1.1); Prothrombin Time 21.3 Seconds (9.0-12.0)
[2018-12-22 05:55] LABS: BUN Creatinine Ratio 15.9 (10-20); Creatinine Clr Calc Pharmacy 42.2 ml/min; Est GFR (African American) 46.1; Est GFR (Non-African American) 39.8; Magnesium 1.7 mg/dl (1.8-2.4); Potassium 4.7 mmol/L (3.5-5.1)
[2018-12-22] MEDS ORDERED: MAGNESIUM SULFATE / D5W 1 GM/100 ML BAG IV ONE (06:06)
--- NOTE | 2018-12-22 07:21 | XRay Report ---
XR chest 1V portable HISTORY: 78 years-old Male congestion/infiltrate acute congestion COMPARISON: Chest radiograph 12/21/2018 TECHNIQUE: Portable AP view of the chest FINDINGS: Cardiomegaly is unchanged. Stable positioning of left subclavian pacer. Calcified plaque of the thora cic aortic arch. Biapical pleural-parenchymal scarring redemonstrated. Blunting of the costophrenic a ngles with emphysema and chronic interstitial coarsening. Pulmonary vascular congestion. Mid and lowe r lung zone opacities are again seen which are not significantly changed. Pleural calcifications of t he right lung base are again noted. Degenerative changes of the shoulders and spine. IMPRESSION: 1. Cardiomegaly with pulmonary vascular congestion. 2. Emphysema with chronic interstitial coarsening. 3. Persistent bibasilar opacities suggestive of atelectasis or pneumonitis. 4. Right-sided calcified pleural plaques. The above report was generated using voice recognition software. It may contain grammatical, syntax o r spelling errors. Electronically signed by: Jesús Magaña M.D. 12/22/2018 7:20 AM
[2018-12-22] MEDS: FLUTICASONE PROPIONATE NA SPR 16 GM BTL SCH (08:04)
[2018-12-22] MEDS: ASPIRIN 81 MG ECTAB PO SCH (08:04)
[2018-12-22] MEDS: INSULIN GLARGINE SOLOSTAR 100 UNITS/ML 3 ML PEN SQ SCH (08:05)
[2018-12-22] MEDS: IPRATROPIUM BROMIDE/ALBUTEROL respimat INH INH SCH ×4 (08:06→20:23)
[2018-12-22] MEDS: INSULIN ASPART 100 UNITS/ML 3 ML PEN SC SCH ×4 (08:08→20:36)
[2018-12-22] MEDS ORDERED: cefTRIAXone SODIUM 1,000 MG in DEXTROSE 5% 50 ML IV SCH (09:00)
[2018-12-22] MEDS: SODIUM CHLORIDE 0.9% 1000ML 1,000 ML IV SCH (10:27)
[2018-12-22] MEDS: METOPROLOL TARTRATE 25 MG TAB PO SCH ×2 (10:27→20:25)
[2018-12-22] MEDS: DOXYCYCLINE HYCLATE 100 MG in DEXTROSE 5% 100 ML IV SCH (12:00)
--- NOTE | 2018-12-22 13:23 | Hospitalist Progress Note ---
Date of Service December 22, 2018 Assessment & Plan (1) Sepsis: Secondary to community-acquired pneumonia as mentioned below Presented with fever, tachycardia, tachypnea and was noted to have increasing lactic acid Received IV antibiotics and IV fluid Repeat lactate came down to 1.7 (2) Community acquired pneumonia, bilateral: Has COPD and interstitial lung disease Bibasilar atelectasis/infiltration Suspected to have infective with worsening of shortness of breath and fever Has been on intravenous ceftriaxone and doxycycline Await cultures Clinically improving Present on Admission?: Yes (3) Diabetes type I: Continue with current insulin doses Sliding scale insulin to cover blood sugar according (4) Paroxysmal atrial fibrillation: Heart rate remains controlled We will continue current medications (5) Hypertension: Blood pressure remains upper side of normal Continue current medications DVT prophylaxis Has been on Coumadin-INR therapeutic CODE STATUS Full Subjective 12/22 Patient was seen and examined in telemetry unit He was admitted yesterday with infective exacerbation of COPD complicated by interstitial lung disease He has been feeling little better since admission Denies any significant symptoms at rest Review of Systems Review of Systems: All systems reviewed and are unremarkable except as noted below Respiratory: + cough and + dyspnea on exertion; no dyspnea Cardiovascular: no chest pain Gastrointestinal: no abdominal pain Musculoskeletal: No acute arthritis in any joints Neurologic: + generalized weakness Physical Exam Physical Exam: Lying in bed with minimal discomfort secondary to shortness of breath Constitutional: well developed, well nourished and + obese; no acute distress Eyes: PERRL, conjunctivae normal, anicteric sclerae ENMT: external ear and nose normal, oropharynx normal Neck: trachea midline, no thyromegaly Respiratory: normal respiratory effort and + respiratory distress (Minimal distress at rest) Auscultation: + diminished lung sounds and + crackles (At the bases) Cardiovascular: Rate/Rhythm: regular rate and regular rhythm Gastrointestinal (Abdomen): Inspection/Auscultation: abdomen normal to inspection and normal bowel sounds Percussion/Palpation: abdomen soft; abdomen nontender Musculoskeletal: No acute arthritis in any joint Psychiatric: A+Ox3, euthymic affect Lymphatic: no cervical or axillary lymphadenopathy Results & Data Vital Signs (Past 12 Hours) Vital Signs Temp Pulse Pulse Resp BP Pulse Ox 12/22/18 11:43 37.1 C 103 H 20 141/80 H 94 12/22/18 07:47 37.1 C 114 H 20 158/78 H 92 12/22/18 07:10 97 H 18 98 12/22/18 04:00 36.9 C 108 H 20 152/70 H 95 12/22/18 01:25 85 17 93 Laboratory Results Short CBC 12/21/18 12/22/18 Range/Units 18:07 05:23 WBC 9.02 7.96 (4.8-10.8) K/uL Hgb 13.6 L 10.8 L (14.0-18.0) g/dL Hct 39.7 L 32.8 L (42-52) % Plt Count 147 112 L (130-400) K/uL BMP 12/21/18 12/22/18 18:07 05:23 Sodium 135 L 137 Potassium 4.7 4.7 Chloride 99 105 Carbon Dioxide 29 26 BUN 27 H 26 H Creatinine 1.75 H 1.61 H Glucose 165 H 292 H Calcium 8.9 8.0 L Liver Function 12/21/18 Range/Units 18:07 Total Bilirubin 1.6 H (0.2-1) mg/dl AST 12 L (15-37) U/L ALT 18 (12-78) U/L Alkaline Phosphatase 109 (45-117) U/L Albumin 3.2 L (3.4-5.0) gm/dl Urine 12/21/18 Range/Units 18:19 Urine Color Yellow Urine Appearance Clear (Clear) Urine pH 7.0 (4.5-7.5) Ur Specific [place] 1.019 (1.000-1.030) Urine Protein 2+ H (Negative) Urine Glucose (UA) 2+ H (Negative) Medications Administered Current Inpatient Medications Acetaminophen (Tylenol) 650 mg PO Q4H PRN PRN Reason: Pain or Fever Stop: 01/20/19 21:48 Last Admin: 12/22/18 00:36 Dose: 650 mg Documented by: Albuterol (Combivent Respimat) 1 puffs INH QID [facility] Stop: 01/20/19 21:48 Last Admin: 12/22/18 12:02 Dose: 1 puffs Documented by: Aspirin (Ecotrin Ectab) 81 mg PO DAILY [facility] Stop: 01/21/19 08:59 Last Admin: 12/22/18 08:04 Dose: 81 mg Documented by: Digoxin (Lanoxin) 0.125 mg PO MoWeFr@1600 [facility] Stop: 01/20/19 21:48 Last Admin: 12/21/18 23:26 Dose: 0.125 mg Documented by: Fluticasone Propionate (Flonase) 2 sprays NA DAILY [facility] Stop: 01/21/19 08:59 Last Admin: 12/22/18 08:04 Dose: 2 sprays Documented by: Sodium Chloride (Nss 1000ml) 1,000 mls @ 80 mls/hr IV .[id number] [facility] Stop: 01/20/19 21:48 Last Admin: 12/22/18 10:27 Dose: 80 mls/hr Documented by: Doxycycline Hyclate 100 mg/ (Dextrose) 110 mls @ 50 mls/hr IV Q12H [facility] Stop: 12/29/18 00:00 Last Admin: 12/22/18 12:00 Dose: 50 mls/hr Documented by: Ceftriaxone Sodium 2,000 mg/ (Dextrose) 70 mls @ 140 mls/hr IV Q24H [facility] Stop: 12/27/18 20:29 Insulin Aspart (Novolog Flexpen) 0 units SC ACHS [facility] Stop: 01/21/19 07:29 Last Admin: 12/22/18 12:02 Dose: 19 units Documented by: Insulin Glargine (Lantus Solostar Pen) 22 units SQ QAM [facility] Stop: 01/21/19 08:59 Last Admin: 12/22/18 08:05 Dose: 22 units Documented by: Ipratropium [place] (Atrovent 0.02% 0.5mg/2.5ml) 0.5 mg INH Q6R [facility] Stop: 01/21/19 00:59 Last Admin: 12/22/18 07:10 Dose: 0.5 mg Documented by: Levalbuterol HCl (Xopenex 1.25mg/0.5ml Neb) 1.25 mg INH Q6R [facility] Stop: 01/21/19 00:59 Last Admin: 12/22/18 07:10 Dose: 1.25 mg Documented by: Metoprolol Tartrate (Lopressor) 25 mg PO BID [facility] Stop: 01/21/19 10:59 Last Admin: 12/22/18 10:27 Dose: 25 mg Documented by: Mometasone Furoate/Formoterol Fumar (Dulera Inhaler) 2 ea INH BID [facility] Stop: 01/21/19 20:59 Nitroglycerin (Nitrostat) 0.4 mg SL UD PRN PRN Reason: Chest Pain Stop: 01/20/19 21:48 Ondansetron HCl (Zofran) 4 mg IV Q6H PRN PRN Reason: Nausea Stop: 01/20/19 21:48 Ranitidine HCl (Zantac) 150 mg PO BID [facility] Stop: 01/20/19 21:48 Last Admin: 12/22/18 08:04 Dose: 150 mg Documented by: Simvastatin (Zocor) 20 mg PO HS [facility] Stop: 01/20/19 21:48 Last Admin: 12/21/18 23:26 Dose: 20 mg Documented by: Tamsulosin HCl (Flomax) 0.4 mg PO HS [facility] Stop: 01/20/19 21:48 Last Admin: 12/21/18 23:20 Dose: Not Given Documented by: Warfarin Sodium (Coumadin) 1.25 mg PO Q2D@1600 [facility] Stop: 01/21/19 15:59 Warfarin Sodium (Coumadin) 2.5 mg PO Q2D@1600 [facility] Stop: 01/22/19 15:59 Zolpidem Tartrate (Ambien) 5 mg PO HS PRN PRN Reason: Insomnia Stop: 01/20/19 21:48 (1) Sepsis Sepsis acute organ dysfunction status: unspecified Sepsis type: sepsis due to unspecified organism Qualified Code(s): A41.9 - Sepsis, unspecified organism
[2018-12-22] MEDS ORDERED: WARFARIN SOD 1.25 MG TAB PO SCH (16:00)
[2018-12-22] MEDS ORDERED: cefTRIAXone SODIUM 2,000 MG in DEXTROSE 5% 50 ML IV SCH (20:00)
[2018-12-22] MEDS: MOMETASONE INH SCH (20:24)
[2018-12-22] MEDS: FORMOTEROL INH SCH (20:24)
[2018-12-22] MEDS: TAMSULOSIN HCL 0.4 MG CAP PO SCH (20:24)
[2018-12-22] MEDS: SIMVASTATIN 20 MG TAB PO SCH (20:25)
--- NOTE | 2018-12-22 21:27 | XRay Report ---
XR chest 1V portable CLINICAL HISTORY: Congestion. COMPARISON STUDY: Chest CT May 07, 2018. Chest radiograph December 22, 2018 at 7:00 AM. FINDINGS: Dual lead left subclavian pacemaker is in place. There is no pneumothorax or pleural effusi on. Calcified right pleural plaques are noted. Cardiomegaly is unchanged. Bibasilar opacities and int erstitial thickening persists. IMPRESSION: Persistent bibasilar opacities and interstitial thickening which may reflect pneumonia o r atelectasis. Electronically signed by: Akshat Calderon M.D. 12/22/2018 9:26 PM
[2018-12-22] MEDS ORDERED: FUROSEMIDE 40 MG/4 ML VIAL IV STA (22:56)
[2018-12-22] MEDS ORDERED: FUROSEMIDE 40 MG in SYRINGE 0 ML IV ONE (23:00)
[2018-12-23] MEDS: DOXYCYCLINE HYCLATE 100 MG in DEXTROSE 5% 100 ML IV SCH ×2 (00:05→13:00)
[2018-12-23] MEDS ORDERED: IBUPROFEN 200 MG TAB PO STA (00:41)
[2018-12-23] MEDS ORDERED: PIPERACILL/TAZOBAC CONSULT ACTIVE PRN (00:44)
[2018-12-23] MEDS ORDERED: PIPERACILLIN/TAZOBACTAM 4.5 GM in DEXTROSE 5% 100 ML IV ONE (00:44)
[2018-12-23] MEDS: IPRATROPIUM BROMIDE NEB SOLN 0.02% 2.5 ML VIAL INH SCH ×3 (01:04→13:13)
[2018-12-23] MEDS: LEVALBUTEROL 1.25MG/0.5ML NEB INH SCH ×3 (01:04→13:13)
[2018-12-23] MEDS ORDERED: GLUCAGON FOR INJ 1 MG VIAL SQ PRN (01:15)
[2018-12-23] MEDS ORDERED: CARBOHYDRATES FOR HYPOGLYCEMIA PO PRN (01:15)
[2018-12-23] MEDS ORDERED: DEXTROSE 50% 50 ML SYRINGE IV PRN (01:15)
[2018-12-23] MEDS ORDERED: GLUCOSE 40% GEL 15 GM TUBE PO PRN (01:15)
[2018-12-23] MEDS ORDERED: GLUCOSE 10 TABS/TUBE PO PRN (01:15)
[2018-12-23] MEDS: PIPERACILLIN/TAZOBACTAM 4.5 GM in DEXTROSE 5% 100 ML IV SCH ×2 (05:46→14:22)
[2018-12-23 05:53] LABS: Estimated Average Glucose 223 mg/dl; Hemoglobin A1C 9.4 % (4.5-5.6)
[2018-12-23 08:05] LABS: INR 1.6 (0.9-1.1); Prothrombin Time 15.9 Seconds (9.0-12.0)
[2018-12-23] MEDS: MOMETASONE INH SCH (08:09)
[2018-12-23] MEDS: IPRATROPIUM BROMIDE/ALBUTEROL respimat INH INH SCH ×2 (08:09→12:58)
[2018-12-23] MEDS: FORMOTEROL INH SCH (08:09)
[2018-12-23] MEDS: METOPROLOL TARTRATE 25 MG TAB PO SCH (08:10)
[2018-12-23] MEDS: ASPIRIN 81 MG ECTAB PO SCH (08:10)
[2018-12-23] MEDS: FLUTICASONE PROPIONATE NA SPR 16 GM BTL SCH (08:11)
[2018-12-23] MEDS: INSULIN ASPART 100 UNITS/ML 3 ML PEN SC SCH ×2 (08:19→12:57)
[2018-12-23] MEDS: INSULIN GLARGINE SOLOSTAR 100 UNITS/ML 3 ML PEN SQ SCH (08:20)
--- NOTE | 2018-12-23 14:00 | Hospitalist Progress Note ---
Date of Service December 23, 2018 Assessment & Plan (1) Sepsis: Secondary to community-acquired pneumonia as mentioned below Presented with fever, tachycardia, tachypnea and was noted to have increasing lactic acid Received IV antibiotics and IV fluid Repeat lactate came down to 1.7 (2) Community acquired pneumonia, bilateral: Has COPD and interstitial lung disease Bibasilar atelectasis/infiltration Suspected to have infective with worsening of shortness of breath and fever Has been on intravenous ceftriaxone and doxycycline Await cultures; blood cultures are negative, sputum culture is showing gram- negative bacilli-sensitivities pending Clinically improved Has been ambulating without any difficulty Will discharge home today on Ceftin and doxycycline (3) Diabetes type I: Continue with current insulin doses Sliding scale insulin to cover blood sugar according (4) Paroxysmal atrial fibrillation: Heart rate remains controlled We will continue current medications No acute issues (5) Hypertension: Blood pressure remains upper side of normal Continue current medications DVT prophylaxis Has been on Coumadin-INR therapeutic CODE STATUS Full Discharge home this afternoon Subjective 12/22 Patient was seen and examined in telemetry unit He was admitted yesterday with infective exacerbation of COPD complicated by interstitial lung disease He has been feeling little better since admission Denies any significant symptoms at rest 12/23 Patient was seen and examined in telemetry unit He has had some cough with sputum last night associated with increasing shortness of breath Received a small dose of intravenous Lasix and the condition resolved Denies any symptoms today His breathing is better and he has been ambulating without any difficult He wants to go home today Review of Systems Review of Systems: All systems reviewed and are unremarkable except as noted below Respiratory: + cough and + dyspnea on exertion; no dyspnea Musculoskeletal: No acute arthritis in any joints Neurologic: + generalized weakness Physical Exam Physical Exam: Lying in bed comfortably Constitutional: well developed, well nourished and + obese; no acute distress and not ill appearing Eyes: PERRL, conjunctivae normal, anicteric sclerae ENMT: external ear and nose normal, oropharynx normal Neck: trachea midline, no thyromegaly Respiratory: normal respiratory effort and + respiratory distress (Minimal distress at rest) Auscultation: + diminished lung sounds and + crackles (Bilateral coarse crackles at the bases) Cardiovascular: Rate/Rhythm: regular rate and regular rhythm Extremities: + edema (Trace edema bilateral) Gastrointestinal (Abdomen): Inspection/Auscultation: abdomen normal to inspection and normal bowel sounds Percussion/Palpation: abdomen soft; abdomen nontender Neurologic: moves all extremities; no focal motor deficits Psychiatric: A+Ox3, euthymic affect Lymphatic: no cervical or axillary lymphadenopathy Results & Data Vital Signs (Past 12 Hours) Vital Signs Temp Pulse Resp BP BP Pulse Ox 12/23/18 13:14 78 20 99 12/23/18 11:42 36.3 C L 106 H 18 135/81 96 12/23/18 07:52 36.5 C 96 H 18 134/86 98 12/23/18 07:10 93 H 20 96 12/23/18 04:20 36.9 C 110 H 20 126/85 95 12/23/18 02:00 36.9 C Medications Administered Current Inpatient Medications Acetaminophen (Tylenol) 650 mg PO Q4H PRN PRN Reason: Pain or Fever Stop: 01/20/19 21:48 Last Admin: 12/22/18 23:20 Dose: 650 mg Documented by: Albuterol (Combivent Respimat) 1 puffs INH QID [facility] Stop: 01/20/19 21:48 Last Admin: 12/23/18 12:58 Dose: 1 puffs Documented by: Aspirin (Ecotrin Ectab) 81 mg PO DAILY [facility] Stop: 01/21/19 08:59 Last Admin: 12/23/18 08:10 Dose: 81 mg Documented by: Dextrose (Dextrose 50%) 25 - 50 ml IV UD PRN; Protocol PRN Reason: Hypoglycemia Protocol Stop: 01/22/19 01:14 Digoxin (Lanoxin) 0.125 mg PO MoWeFr@1600 [facility] Stop: 01/20/19 21:48 Last Admin: 12/21/18 23:26 Dose: 0.125 mg Documented by: Fluticasone Propionate (Flonase) 2 sprays NA DAILY [facility] Stop: 01/21/19 08:59 Last Admin: 12/23/18 08:11 Dose: 2 sprays Documented by: Glucagon (Glucagen) 1 mg SQ UD PRN; Protocol PRN Reason: Hypoglycemia Protocol Stop: 01/22/19 01:14 Glucose (Glucose 40%) 15 - 30 gm PO UD PRN; Protocol PRN Reason: Hypoglycemia Protocol Stop: 01/22/19 01:14 Glucose (Dex4 Glucose) 4 - 8 tabs PO UD PRN; Protocol PRN Reason: Hypoglycemia Protocol Stop: 01/22/19 01:14 Doxycycline Hyclate 100 mg/ (Dextrose) 110 mls @ 50 mls/hr IV Q12H [facility] Stop: 12/29/18 00:00 Last Admin: 12/23/18 13:00 Dose: 50 mls/hr Documented by: Piperacillin Sod/Tazobactam (Sod 4.5 gm/ Dextrose) 120 mls @ 30 mls/hr IV Q8H [facility]; Protocol Stop: 12/30/18 05:59 Last Infusion: 12/23/18 09:46 Dose: Infused Documented by: Insulin Aspart (Novolog Flexpen) 0 units SC ACHS [facility] Stop: 01/21/19 07:29 Last Admin: 12/23/18 12:57 Dose: 16 units Documented by: Insulin Glargine (Lantus Solostar Pen) 22 units SQ QAM [facility] Stop: 01/21/19 08:59 Last Admin: 12/23/18 08:20 Dose: 22 units Documented by: Ipratropium [place] (Atrovent 0.02% 0.5mg/2.5ml) 0.5 mg INH Q6R [facility] Stop: 01/21/19 00:59 Last Admin: 12/23/18 13:13 Dose: 0.5 mg Documented by: Levalbuterol HCl (Xopenex 1.25mg/0.5ml Neb) 1.25 mg INH Q6R [facility] Stop: 01/21/19 00:59 Last Admin: 12/23/18 13:13 Dose: 1.25 mg Documented by: Metoprolol Tartrate (Lopressor) 25 mg PO BID [facility] Stop: 01/21/19 10:59 Last Admin: 12/23/18 08:10 Dose: 25 mg Documented by: Miscellaneous (Carbohydrates For Hypoglycemia) 15 - 30 gm PO UD PRN PRN Reason: Hypoglycemia Treatment Stop: 01/22/19 01:14 Miscellaneous Information (Consult) 1 ea N/A UD PRN PRN Reason: Consult Stop: 01/22/19 00:43 Mometasone Furoate/Formoterol Fumar (Dulera Inhaler) 2 ea INH BID [facility] Stop: 01/21/19 20:59 Last Admin: 12/23/18 08:09 Dose: 2 ea Documented by: Nitroglycerin (Nitrostat) 0.4 mg SL UD PRN PRN Reason: Chest Pain Stop: 01/20/19 21:48 Ondansetron HCl (Zofran) 4 mg IV Q6H PRN PRN Reason: Nausea Stop: 01/20/19 21:48 Ranitidine HCl (Zantac) 150 mg PO BID [facility] Stop: 01/20/19 21:48 Last Admin: 12/23/18 08:10 Dose: 150 mg Documented by: Simvastatin (Zocor) 20 mg PO HS [facility] Stop: 01/20/19 21:48 Last Admin: 12/22/18 20:25 Dose: 20 mg Documented by: Tamsulosin HCl (Flomax) 0.4 mg PO HS [facility] Stop: 01/20/19 21:48 Last Admin: 12/22/18 20:24 Dose: Not Given Documented by: Warfarin Sodium (Coumadin) 1.25 mg PO Q2D@1600 [facility] Stop: 01/21/19 15:59 Last Admin: 12/22/18 15:39 Dose: 1.25 mg Documented by: Warfarin Sodium (Coumadin) 2.5 mg PO Q2D@1600 [facility] Stop: 01/22/19 15:59 Zolpidem Tartrate (Ambien) 5 mg PO HS PRN PRN Reason: Insomnia Stop: 01/20/19 21:48 (1) Sepsis Sepsis acute organ dysfunction status: unspecified Sepsis type: sepsis due to unspecified organism Qualified Code(s): A41.9 - Sepsis, unspecified organism
[2018-12-23] MEDS ORDERED: DOXYCYCLINE HYCLATE 100 MG CAP PO ONE (14:30)
[2018-12-23] MEDS ORDERED: cefUROXime axetil 250 MG TABLET PO ONE (14:30)
[2018-12-23] MEDS ORDERED: WARFARIN SOD 2.5 MG TAB PO SCH (16:00)
--- NOTE | 2018-12-24 07:58 | Discharge Summary ---
Date of Service December 24, 2018 Admission HPI Per Admitting Provider DICTATED BY: Dmitriy Burns MD DATE OF ADMISSION: 12/21/2018 CHIEF COMPLAINT: Shortness of breath and fever. HISTORY OF PRESENT ILLNESS: This is an 78-year-old male with past medical history significant for type 1 diabetes, hyperlipidemia, diabetic peripheral neuropathy, COPD, nocturnal hypoxia, uses 2 liters while sleeping, history of bronchiectasis, interstitial lung disease, asbestosis, pneumoconiosis, paroxysmal atrial fibrillation, on Coumadin, hypertension, chronic kidney disease stage III, BPH, eczematous dermatitis, hard of hearing, tachybrady syndrome status post cardiac pacemaker, presents with shortness of breath. The patient says since yesterday, he is coughing up some orange-colored sputum, also developed fever yesterday and shortness of breath got progressively worse today, so came to the ER. He was spiking temperatures in the ER and tachycardic. Lactic acid was 2.4. Blood pressure was okay. Chest xray shows pneumonia, received Rocephin and azithromycin. Currently resting comfortably, hemodynamically stable, saturating okay on oxygen, talking in full sentences. Family in the room. Denies any headache, no dizziness, no blurred visions, hard of hearing. He always has some runny nose, no sore throat, no difficulty swallowing and eats regular diet. He says he has checked for swallow test a couple of times and it is okay. Denies any chest pain, no nausea, no vomiting, no abdominal pain. Has some chronic loose stools. Denies any blood in the stools. No burning micturition, no hematuria. No swelling in the legs, no rash. He is on Coumadin and he bruises easily. Ambulates okay without any help at home. Sleeps okay. Appetite is okay. No recent weight gain. Admission Exam Per Admitting Provider GENERAL: The patient is old and frail, not in acute distress. VITAL SIGNS: Temperature 39.3, pulse 119, respiratory rate 28, blood pressure 116/64, oxygen 93% on 4 liters. HEENT: No pallor, no icterus. Pupils equal, round, reactive to light. NECK: No JVD, no neck masses, no carotid bruits. CARDIOVASCULAR: S1, S2 heard. Tachycardia. No murmurs. RESPIRATORY SYSTEM: Normal AP diameter. No accessory muscle use. No wheezing. Mild bibasilar crackles. ABDOMEN: Soft, bowel sounds present, nontender. No distention. CENTRAL NERVOUS SYSTEM: Cranial nerves II-XII grossly intact, nonfocal. EXTREMITIES: No edema, no erythema. Principal Diagnosis Community-acquired pneumonia-bibasilar, sepsis secondary-resolved, type 1 d iabetes, hypertension, PAF Discharge Exam Constitutional well developed, well nourished and + obese; no acute distress and not ill appearing Eyes PERRL, conjunctivae normal, anicteric sclerae ENMT external ear and nose normal, oropharynx normal Neck trachea midline, no thyromegaly Respiratory normal respiratory effort and + respiratory distress (Minimal distress at rest) Auscultation: + diminished lung sounds and + crackles (Bilateral coarse crackles at the bases) Cardiovascular Rate/Rhythm: regular rate and regular rhythm Extremities: + edema (Trace edema bilateral) Gastrointestinal (Abdomen) Inspection/Auscultation: abdomen normal to inspection and normal bowel sounds Percussion/Palpation: abdomen soft; abdomen nontender Neurologic moves all extremities; no focal motor deficits Psychiatric A+Ox3, euthymic affect Lymphatic no cervical or axillary lymphadenopathy Discharge Data Allergies Allergy/AdvReac Type Severity Reaction Status Date / Time diltiazem Allergy Mild RASH Verified 12/21/18 22:29 aspirin AdvReac Mild GI SYMPTOMS Verified 12/21/18 22:29 lisinopril AdvReac Unknown cough Verified 12/21/18 22:29 propoxyphene AdvReac Unknown STOMACH Verified 12/21/18 22:29 UPSET DIARRHEA fluticasone furoate AdvReac Joint Pain Verified 12/21/18 22:29 [From Breo Ellipta] vilanterol AdvReac Joint Pain Verified 12/21/18 22:29 [From Breo Ellipta] Consultations 12/21/18 19:13 ED Decision to Admit Stat 12/21/18 21:49 Consult Case Management - Discharge Planning Routine Hospital Course (1) Sepsis: Secondary to community-acquired pneumonia as mentioned below Presented with fever, tachycardia, tachypnea and was noted to have increasing lactic acid Received IV antibiotics and IV fluid Repeat lactate came down to 1.7 (2) Community acquired pneumonia, bilateral: Has COPD and interstitial lung disease Bibasilar atelectasis/infiltration Suspected to have infective with worsening of shortness of breath and fever Has been on intravenous ceftriaxone and doxycycline Await cultures; blood cultures are negative, sputum culture is showing gram- negative bacilli-sensitivities pending Clinically improved Has been ambulating without any difficulty Will discharge home today on Ceftin and doxycycline (3) Diabetes type I: Continue with current insulin doses Sliding scale insulin to cover blood sugar according (4) Paroxysmal atrial fibrillation: Heart rate remains controlled We will continue current medications No acute issues (5) Hypertension: Blood pressure remains upper side of normal Continue current medications DVT prophylaxis Has been on Coumadin-INR therapeutic CODE STATUS Full Discharge home this afternoon Total Time Total Time Spent Total Time Spent (In Minutes): 35 minutes Total Time Includes: Examination of the Patient, Discharge Planning, Medication Reconciliation and Communication With Other Providers Discharge Plan Discharge Items Patient Disposition: Home - Self-Care Reason For Visit: FEVER SOB Discharge Diagnosis: Community-acquired pneumonia-bibasilar, sepsis secondary- resolved, type 1 diabetes, hypertension, PAF Condition: Good Discharge Goals: Decrease discomfort, Improve function and Increase independence Activity: Resume your previous activity Non-emergency contact: Primary Care Provider Call non-emergency contact if: you have any medication questions and your symptoms worsen Follow-up/Referrals: Kg Monte MD [Primary Care Provider] - 12/25/18 3:15 pm Diet: Carb Count or DM1 and Heart Healthy Addtl Provider Instructions: New medications; Cefuroxime to 50 mg twice daily for 7 days Doxycycline 100 mg twice daily for 7 days Lactinex 2 tablets twice daily for 10 days And metoprolol 25 mg twice daily for 30 days Please avoid any stimulants which can worsen your respiratory symptoms as advised Prescriptions: New doxycycline hyclate 100 mg capsule 100 mg PO BID 7 Days Qty: 14 RF: 0 cefuroxime axetil 250 mg tablet 250 mg PO BID 7 Days Qty: 14 RF: 0 Lactinex 1 million cell tablet,chewable 2 tab PO BID Qty: 40 RF: 0 metoprolol tartrate 50 mg tablet 50 mg PO BID Qty: 60 RF: 0 Continued tamsulosin [Flomax] 0.4 mg Capsule 0.4 mg PO HS RF: 0 simvastatin [Zocor] 20 mg Tablet 20 mg PO HS RF: 0 ranitidine HCl 150 mg Tablet 150 mg PO BID RF: 0 nitroglycerin [Nitrostat] 0.4 mg Tablet, Sublingual 0.4 mg Sublingual UNKNOWN PRN (Reason: Chest Pain) RF: 0 aspirin 81 mg Tablet,Chewable 81 mg PO DAILY RF: 0 digoxin 125 mcg Tablet 0.125 mg PO 3XWK RF: 0 zolpidem [Ambien] 5 mg Tablet 5 mg PO HS PRN (Reason: Insomnia) RF: 0 Novolog Flexpen U-100 Insulin 100 unit/mL Insulin Pen See Rx Instructions .ROUTE .COMPLEX RF: 0 fluticasone furoate 27.5 mcg/actuation [place],Suspension 2 spray Intranasal DAILY RF: 0 Lantus Solostar U-100 Insulin 100 unit/mL (3 mL) Insulin Pen 22 unit SUBCUT QAM RF: 0 Dulera 100-5 mcg/actuation Hfa Aerosol Inhaler 2 puff INHALATION BID RF: 0 Combivent Respimat 20-100 mcg/actuation Mist 1 puff INHALATION QID RF: 0 warfarin 2.5 mg tablet 1.25 mg PO Q2D RF: 0 warfarin 2.5 mg tablet 2.5 mg PO Q2D RF: 0 furosemide 20 mg Tablet 20 mg PO BID RF: 0 albuterol sulfate 0.63 mg/3 mL Solution For Nebulization 0.63 mg INHALATION QID PRN (Reason: Shortness Of Breath Or Wheezing) RF: 0 Stand-Alone Forms: [facility] Discharge Orders: Discharge Order (Routine); Ordered 12/23/18 Ordered By: Vincent Kenyon Admission Data Admit Date/Time: 12/21/18 19:56 Attending Provider: Vincent Kenyon Admit Provider: Dmitriy Burns Primary Care Provider: Kg Monte Other Providers: Dmitriy Burns Service: Telemetry Other Interventions: Discharge Summary Assessment (RN) Last Done: 12/23/18 14:11 DC Date/Time DO NOT enter until pt leaves facility: 12/23/18 15:07
== END 2018-12-23 15:07 | disposition home or self-care (01) | DRG 871 ==
LOC: ED 17:38 → 2S 19:56
DX: I12.9 Hypertensive chronic kidney disease with stage 1 through stage 4 chronic kidney disease, or unspecified chronic kidney disease; Z79.4 Long term (current) use of insulin; Z99.81 Dependence on supplemental oxygen; Z79.899 Other long term (current) drug therapy; E78.5 Hyperlipidemia, unspecified; Z87.891 Personal history of nicotine dependence; J18.9 Pneumonia, unspecified organism; J61 Pneumoconiosis due to asbestos and other mineral fibers; Z88.6 Allergy status to analgesic agent; A41.9 Sepsis, unspecified organism; J84.9 Interstitial pulmonary disease, unspecified; N40.0 Benign prostatic hyperplasia without lower urinary tract symptoms; I48.0 Paroxysmal atrial fibrillation; Z79.51 Long term (current) use of inhaled steroids; N18.3 Chronic kidney disease, stage 3 (moderate); Z88.8 Allergy status to other drugs, medicaments and biological substances; E10.42 Type 1 diabetes mellitus with diabetic polyneuropathy; R09.02 Hypoxemia; J98.11 Atelectasis; J44.9 Chronic obstructive pulmonary disease, unspecified; Z79.82 Long term (current) use of aspirin; Z95.0 Presence of cardiac pacemaker; E10.22 Type 1 diabetes mellitus with diabetic chronic kidney disease; K21.9 Gastro-esophageal reflux disease without esophagitis

== ENCOUNTER 2018-12-25 14:29 | Inpatient (IN) ==
--- NOTE | 2018-12-25 15:37 | XRay Report ---
XR chest 1V portable CLINICAL HISTORY: 78 years-old Male presenting with SOB. TECHNIQUE: Portable upright AP view of the chest was obtained. COMPARISON: 12/22/2018. FINDINGS: Left subclavian pacer with leads in the right atrium and right ventricular apex. Atherosclerosis of t he aortic arch. Cardiac silhouette moderately enlarged. Mild pulmonary vascular prominence. Extensive bibasilar opacities irregular linear as well as patchy in morphology and greater on the right. Trace right pleural effusion suspected. Suture margin noted at the right apex. No pneumothorax. Osseous st ructures normal. IMPRESSION: 1. Cardiomegaly with mild volume overload. 2. Bibasilar infiltrates similar to prior exam. This could represent aspiration, extensive atelectas is, or infection. Edema is not favored. Electronically signed by: Jono De Leon M.D. 12/25/2018 3:36 PM
[2018-12-25] MEDS ORDERED: ALBUT/IPRATROP 3MG/0.5MG NEB 3 ML VIAL NEB ONE (16:08)
[2018-12-25 16:12] LABS: Basophils # (auto) 0.02 K/uL (0-0.2); Basophils % (auto) 0.2 %; Eosinophils # (auto) 0.07 K/uL (0-0.5); Eosinophils % (auto) 0.8 %; Hematocrit (blood only) 35.6 % (42-52); Hemoglobin 11.6 g/dL (14.0-18.0); Immature Granulocytes # (auto) 0.03 K/uL (0.00-0.02); Immature Granulocytes % (auto) 0.3 %; Lymphocytes # (auto) 0.96 K/uL (1.2-3.4); Lymphocytes % (auto) 10.7 %; Mean Corpuscular Hemoglobin 28.1 pg (25-34); Mean Corpuscular Hgb Conc 32.6 g/dL (32-36); Mean Corpuscular Volume 86.2 fL (80-100); Mean Platelet Volume 10.2 fL (7.4-10.4); Monocytes # (auto) 1.02 K/uL (0.11-0.59); Monocytes % (auto) 11.4 %; Neutrophils # (auto) 6.85 K/uL (1.4-6.5); Neutrophils % (auto) 76.6 %; Platelet Count 196 K/uL (130-400); RDW Coefficient of Variation 14.5 % (11.5-14.5); RDW Standard Deviation 45.4 fL (36.4-46.3); Red Blood Count 4.13 M/uL (4.7-6.1); White Blood Count 8.95 K/uL (4.8-10.8)
[2018-12-25] MEDS ORDERED: methylPREDNISolone 60 MG in SYRINGE 1 ML IV STA (16:17)
[2018-12-25 16:22] LABS: INR 2.9 (0.9-1.1); Partial Thromboplastin Ratio 1.5; Partial Thromboplastin Time 41.6 Seconds (21.0-31.0); Prothrombin Time 27.8 Seconds (9.0-12.0)
[2018-12-25 16:36] LABS: Alanine Aminotransferase 21 U/L (12-78); Albumin Level 2.8 gm/dl (3.4-5.0); Aspartate Aminotransferase 17 U/L (15-37); BUN Creatinine Ratio 20.1 (10-20); Blood Urea Nitrogen 32 mg/dl (7-18); Calcium 9.6 mg/dl (8.5-10.1); Carbon Dioxide 27 mmol/L (21-32); Chloride 107 mmol/L (98-107); Est GFR (African American) 47.5; Glucose 153 mg/dl (70-99); Potassium 4.3 mmol/L (3.5-5.1); Sodium 141 mmol/L (136-145)
[2018-12-25 16:40] LABS: Albumin Globulin Ratio 0.6 (0.9-2); Alkaline Phosphatase 94 U/L (45-117); Bilirubin,Total 0.8 mg/dl (0.2-1); Globulin 4.4 gm/dl (2.5-4.0); Total Protein 7.2 gm/dl (6.4-8.2); Troponin I < 0.015 ng/ml (0-0.045)
[2018-12-25] MEDS ORDERED: FUROSEMIDE 20 MG in SYRINGE 0 ML IV STA (16:56)
[2018-12-25] MEDS ORDERED: NITROGLYCERIN 2% OINTMENT 30GM TUBE EXT ONE (16:56)
[2018-12-25] MEDS ORDERED: FUROSEMIDE 40 MG/4 ML VIAL IV ONE ×2 (17:08→18:45)
[2018-12-25] MEDS ORDERED: METOPROLOL TARTRATE 1 MG/ML VIAL IV STA (18:36)
[2018-12-25] MEDS ORDERED: FUROSEMIDE 40 MG/4 ML VIAL IV STA (18:37)
--- NOTE | 2018-12-25 18:43 | History & Physical Report ---
Date of Service December 25, 2018 Assessment & Plan (1) Acute and chronic respiratory failure: This is an 78yo M with a PMH of DM I, tachybradycardia syndrome s/p pacemaker placement, COPD, paroxysmal atrial fibrillation on Coumadin, nocturnal hypoxia on 2 L nasal cannula at bedtime, HLD and other medical problems listed below who presents with progressive shortness of breath x 3 days and was found to have acute on chronic respiratory failure in the setting of known community acquired pneumonia, COPD exacerbation, volume overload and atrial fibrillation with RVR. -Saturating at 94% on 4 L nasal cannula O2 (only requires 2 L nasal cannula O2 at bedtime at baseline) -In setting of community-acquired pneumonia, COPD exacerbation, volume overload (2) Community acquired pneumonia, bilateral: Continue course of Ceftin and doxycycline to complete 7 day course -Afebrile, no leukocytosis -Blood cultures negative during previous admission. Repeated today (3) COPD exacerbation: History of obstructive lung disease as well as known exposures to biofuels and asbestos, 80 pack year smoking history -Evaluated by pulm service earlier this year for COPD exacerbation and chronic mucopurulent bronchitis -Underwent PFTs with Dr. Johansen in May 2018 with evidence of a moderate obstructive ventilatory defect even more pronounced at low lung volumes. Lung volumes were well within normal limits. Diffusion capacity was moderately reduced -Continue antibiotics for PNA, solu-medrol 60mg TID, duoneb QIDR, flutter valve Q4H, mucinex, consider high flow O2 with heated humidified air if unable to clear sputum (4) Volume overload: No known history of CHF but appears to have mild volume overload on CXR and clinically -Most recent 2D echo from July 2017 with mild LVH, preserved EF: 55-60&, mild pulm HTN -Takes Lasix 20mg PO BID at home for lower extremity swelling -Given 20mg IV Lasix in ED, will give additional 40mg IV Lasix this evening and in morning -Strict I&Os, daily weights, continue to monitor volume status closely -Repeat 2D echo (5) Atrial fibrillation with RVR: HR increased from 114 to 130s in setting of PNA, volume overload, incorrect Lopressor dose for the past few days -Expect improvement with treatment of PNA, volume overload -Given 5mg IV Lopressor in ED. Continue home Lopressor 50mg BID dose -Anticoagulated on coumadin with INR of 2.9 today. Monitor daily INR -Monitor on telemetry (6) Diabetes type I: A1c of 9.5 earlier in November -Hold home agents -Glycemic consult placed while patient receiving IV solu-medrol -BSG AC HS (7) CKD (chronic kidney disease) stage 3, GFR 30-59 ml/min: Cr 1.57 today (baseline Cr mid-high 1s) -Continue to monitor kidney function in setting of IV Lasix (8) Hypertension: Normotensive -Continue Lopressor (9) BPH (benign prostatic hypertrophy): (10) COPD (chronic obstructive pulmonary disease): (11) Tachycardia-bradycardia syndrome: S/p pacemaker placement DVT Ppx: coumadin Code status: DNR per discussion with patient PCP: Mell Dispo: Admitted to telemetry. Discharge planning ordered. Patient seen in collaboration with Dr. Kenyon. Please see addendum. History of Present Illness Chief Complaint: SOB Primary Care Provider: Kg Monte MD This is an 78yo M with a PMH of DM I, tachybradycardia syndrome s/p pacemaker placement, paroxysmal atrial fibrillation on Coumadin, COPD, nocturnal hypoxia on 2 L nasal cannula at bedtime, HLD and other medical problems listed below who presents with progressive shortness of breath x 3 days. Patient was recently admitted from 12/21-12/24 with sepsis secondary to community-acquired pneumonia. No growth on sputum or blood cultures and patient was discharged on 7-day course of Ceftin and doxycycline. Since yesterday, patient has been requiring 4 L nasal cannula continuously, when he normally only uses 2 L at bedtime. Endorsing productive cough with clear phlegm and feels like there is "phlegm stuck in my throat". Has been taking antibiotics as prescribed. There is also some confusion about metoprolol dosing and patient has been taking Lopressor 25 mg twice daily since discharge but is actually supposed to be taking 50 mg twice daily. Clarified dose with machine room engineer yesterday and resumed 50 mg twice daily dosing. Denies any fever or chills. Denies wheezing. No lightheadedness, visual changes, chest pain, palpitations, nausea, vomiting, abdominal pain, dysuria, diarrhea or constipation. Since discharge, denies weight loss. States he has been eating normal diet including cereal, macaroni and cheese and pork chops. Has also increased fluid intake. Denies any PND or orthopnea. In the ED, patient found to be tachycardic at 115 with oxygen saturation of 94% on 4 L nasal cannula. No leukocytosis. Chest x-ray with cardiomegaly with mild volume overload and bibasilar infiltrates similar to prior exam. In ED, given 20 mg IV Lasix, 60 mg IV Solu-Medrol, DuoNeb treatment and nitro paste. Allergies Allergy/AdvReac Type Severity Reaction Status Date / Time diltiazem Allergy Mild RASH Verified 12/21/18 22:29 aspirin AdvReac Mild GI SYMPTOMS Verified 12/21/18 22:29 lisinopril AdvReac Unknown cough Verified 12/21/18 22:29 propoxyphene AdvReac Unknown STOMACH Verified 12/21/18 22:29 UPSET DIARRHEA fluticasone furoate AdvReac Joint Pain Verified 12/21/18 22:29 [From Breo Ellipta] vilanterol AdvReac Joint Pain Verified 12/21/18 22:29 [From Breo Ellipta] Home Medications Home Medications Medication Instructions Recorded Confirmed Type Combivent Respimat 1 puff INHALATION QID 07/03/18 12/25/18 History Dulera 2 puff INHALATION BID 07/03/18 12/25/18 History Lantus Solostar U-100 Insulin 22 unit SUBCUT QAM 07/03/18 12/25/18 History Novolog Flexpen U-100 Insulin See Rx Instructions .ROUTE .COMPLEX 07/03/18 12/25/18 History aspirin 81 mg PO DAILY 07/03/18 12/25/18 History digoxin 0.125 mg PO 3XWK 07/03/18 12/25/18 History fluticasone furoate 2 spray INTRANASAL DAILY 07/03/18 12/25/18 History nitroglycerin [Nitrostat] 0.4 mg SUBLINGUAL UNKNOWN PRN 07/03/18 12/25/18 History ranitidine HCl 150 mg PO BID 07/03/18 12/25/18 History simvastatin [Zocor] 20 mg PO HS 07/03/18 12/25/18 History tamsulosin [Flomax] 0.4 mg PO HS 07/03/18 12/25/18 History zolpidem [Ambien] 5 mg PO HS PRN 07/03/18 12/25/18 History furosemide 20 mg PO BID 11/27/18 12/25/18 History warfarin 1.25 mg PO Q2D 11/27/18 12/25/18 History warfarin 2.5 mg PO Q2D 11/27/18 12/25/18 History albuterol sulfate 0.63 mg INHALATION QID PRN 12/21/18 12/25/18 History cefuroxime axetil 250 mg PO BID 7 Days #14 tab 12/23/18 12/25/18 Rx doxycycline hyclate 100 mg PO BID 7 Days #14 cap 12/23/18 12/25/18 Rx metoprolol tartrate 50 mg PO BID 12/25/18 12/25/18 History Past Med/Surg History Medical History Tachycardia-bradycardia syndrome (Chronic) Bronchiectasis (Chronic) COPD (chronic obstructive pulmonary disease) (Chronic) HTN (hypertension) (Chronic) Paroxysmal A-fib (Chronic) COPD (chronic obstructive pulmonary disease) (Chronic) "moderate" Hypertension (Chronic) BPH (benign prostatic hypertrophy) (Chronic) History of basal cell carcinoma (Chronic) CKD (chronic kidney disease) stage 3, GFR 30-59 ml/min (Chronic) Diabetes type I (Chronic) Paroxysmal atrial fibrillation (Chronic) Atrial fibrillation with RVR (Acute) BPH (benign prostatic hyperplasia) (Chronic) Surgical History Status post placement of cardiac pacemaker (Chronic) H/O nasal polypectomy (Resolved) History of surgery of head (Resolved) "correct skull abnormality- left temporoparietal ; 1992" History of inguinal hernia repair (Resolved) H/O basal cell carcinoma excision (Chronic) H/O inguinal hernia repair (Chronic) H/O nasal polypectomy (Chronic) History of head, eyes, ears, nose, and throat (HEENT) surgery (Chronic) Family History Other Diabetes Heart disease Social History Preferred Language: [place]an Communication Ability: Effective Senior Loan Officer Required: No Beliefs That Will Affect Care: None marital status: Current Living Situation: Spouse Current Living Situation Comment: at home Other Information That Helps Us Care for You: No Feels Safe at Home: Yes Safety Concerns: Feels Safe At This Time Smoking Status: Former smoker Tobacco Type: cigarettes ; Smoking End Date: 1995 ; Second Hand Exposure: No ; Hx Alcohol Use: Yes Alcohol type: wine Hx Substance Use: No Review of Systems Review of Systems: At least ten systems reviewed and negative except as noted in the HPI. Physical Exam Physical Exam: General Appearance: WD/WN, sitting upright in bed with intermittent coughing with associated respiratory distress, wearing 4L NC O2 Head: normocephalic, atraumatic Eyes: normal inspection, PERRL, EOMI ENT: hearing grossly normal, pharynx normal (moist mucous membranes) Neck: supple, no JVD, no adenopathy Respiratory/Chest: lungs with diffuse rhonchi, rales at bilateral bases with decreased air movement. No wheezes appreciated, intermittent coughing Cardiovascular: regular rate, rhythm, no murmur appreciated, normal peripheral pulses, 1-2+ pitting BLE edema Abdomen/GI: normal bowel sounds, soft, non-tender to palpation Extremities/Musculoskelatal: normal inspection, no calf tenderness, normal capillary refill Neurologic/Psych: alert, normal mood/affect, oriented x 3 Skin: normal color, warm/dry Results & Data Vital Signs (Past 12 Hours) Vital Signs Temp Pulse Pulse Resp BP BP Pulse Ox 12/25/18 17:14 131 H 22 141/95 H 97 12/25/18 16:29 120 H 26 H 187/105 H 97 12/25/18 16:17 115 H 22 92 12/25/18 15:14 114 H 94 12/25/18 14:57 92 12/25/18 14:32 36.7 C 108 H 22 162/98 H 96 Laboratory Results Short CBC 12/25/18 12/25/18 12/25/18 Range/Units 15:31 15:56 15:56 WBC 8.95 (4.8-10.8) K/uL RBC 4.13 L (4.7-6.1) M/uL Hgb 11.6 L (14.0-18.0) g/dL Hct 35.6 L (42-52) % MCV 86.2 (80-100) fL MCH 28.1 (25-34) pg MCHC 32.6 (32-36) g/dL RDW Std Deviation 45.4 (36.4-46.3) fL RDW Coeff of Samira 14.5 (11.5-14.5) % Plt Count 196 (130-400) K/uL MPV 10.2 (7.4-10.4) fL Immature Gran % (Auto) 0.3 % Neut % (Auto) 76.6 % Lymph % (Auto) 10.7 % [place] % (Auto) 11.4 % Eos % (Auto) 0.8 % Baso % (Auto) 0.2 % Immature Gran # (Auto) 0.03 H (0.00-0.02) K/uL Neut # (Auto) 6.85 H (1.4-6.5) K/uL Lymph # (Auto) 0.96 L (1.2-3.4) K/uL [place] # (Auto) 1.02 H (0.11-0.59) K/uL Eos # (Auto) 0.07 (0-0.5) K/uL Baso # (Auto) 0.02 (0-0.2) K/uL PT 27.8 H (9.0-12.0) Seconds INR 2.9 H (0.9-1.1) APTT 41.6 H (21.0-31.0) Seconds PTT Ratio 1.5 Sodium (136-145) mmol/L Potassium (3.5-5.1) mmol/L Chloride (98-107) mmol/L Carbon Dioxide (21-32) mmol/L Anion Gap (3-11) BUN (7-18) mg/dl Creatinine (0.6-1.4) mg/dl Est Cr Clr Drug Dosing Est GFR ( Amer) Est GFR (Non-Af Amer) BUN/Creatinine Ratio (10-20) Glucose (70-99) mg/dl POC Glucose 152 H (70-99) Calcium (8.5-10.1) mg/dl Total Bilirubin (0.2-1) mg/dl AST (15-37) U/L ALT (12-78) U/L Alkaline Phosphatase (45-117) U/L Troponin I (0-0.045) ng/ml NT-Pro-B Natriuret Pep (0-1800) pg/ml Total Protein (6.4-8.2) gm/dl Albumin (3.4-5.0) gm/dl Globulin (2.5-4.0) gm/dl Albumin/Globulin Ratio (0.9-2) 12/25/18 12/25/18 Range/Units 15:56 15:56 WBC (4.8-10.8) K/uL RBC (4.7-6.1) M/uL Hgb (14.0-18.0) g/dL Hct (42-52) % MCV (80-100) fL MCH (25-34) pg MCHC (32-36) g/dL RDW Std Deviation (36.4-46.3) fL RDW Coeff of Samira (11.5-14.5) % Plt Count (130-400) K/uL MPV (7.4-10.4) fL Immature Gran % (Auto) % Neut % (Auto) % Lymph % (Auto) % [place] % (Auto) % Eos % (Auto) % Baso % (Auto) % Immature Gran # (Auto) (0.00-0.02) K/uL Neut # (Auto) (1.4-6.5) K/uL Lymph # (Auto) (1.2-3.4) K/uL [place] # (Auto) (0.11-0.59) K/uL Eos # (Auto) (0-0.5) K/uL Baso # (Auto) (0-0.2) K/uL PT (9.0-12.0) Seconds INR (0.9-1.1) APTT (21.0-31.0) Seconds PTT Ratio Sodium 141 (136-145) mmol/L Potassium 4.3 (3.5-5.1) mmol/L Chloride 107 (98-107) mmol/L Carbon Dioxide 27 (21-32) mmol/L Anion Gap 7.0 (3-11) BUN 32 H (7-18) mg/dl Creatinine 1.57 H (0.6-1.4) mg/dl Est Cr Clr Drug Dosing Not Reportable Est GFR ( Amer) 47.5 Est GFR (Non-Af Amer) 41.0 BUN/Creatinine Ratio 20.1 H (10-20) Glucose 153 H (70-99) mg/dl POC Glucose (70-99) Calcium 9.6 (8.5-10.1) mg/dl Total Bilirubin 0.8 (0.2-1) mg/dl AST 17 (15-37) U/L ALT 21 (12-78) U/L Alkaline Phosphatase 94 (45-117) U/L Troponin I < 0.015 (0-0.045) ng/ml NT-Pro-B Natriuret Pep 4465 H (0-1800) pg/ml Total Protein 7.2 (6.4-8.2) gm/dl Albumin 2.8 L (3.4-5.0) gm/dl Globulin 4.4 H (2.5-4.0) gm/dl Albumin/Globulin Ratio 0.6 L (0.9-2) BMP 12/25/18 15:56 Sodium 141 Potassium 4.3 Chloride 107 Carbon Dioxide 27 BUN 32 H Creatinine 1.57 H Glucose 153 H Calcium 9.6 Cardiac Enzymes 12/25/18 Range/Units 15:56 Troponin I < 0.015 (0-0.045) ng/ml Liver Function 12/25/18 Range/Units 15:56 Total Bilirubin 0.8 (0.2-1) mg/dl AST 17 (15-37) U/L ALT 21 (12-78) U/L Alkaline Phosphatase 94 (45-117) U/L Albumin 2.8 L (3.4-5.0) gm/dl Diagnostic Findings CXR: IMPRESSION: 1. Cardiomegaly with mild volume overload. 2. Bibasilar infiltrates similar to prior exam. This could represent aspiration, extensive atelectasis, or infection. Edema is not favored. ECG Rhythm: atrial fibrillation Change: no significant change Supervising Physician Co-Signing Physician Notes Attending addendum The patient was seen and examined in emergency room Recently he was in the hospital with the pneumonia and was discharged on of this month He has been taking less dose of metoprolol since discharge Complain more shortness of breath and wheezing and was readmitted yesterday with CHF Denies any chest pain and/or palpitation On examination Anxious Minimal distress at rest due to shortness of breath Chest-decreased breath sounds bilaterally with minimal wheezing and bibasilar crackles Heart-S1-S2, irregular Abdomen-benign Extremities-trace edema bilaterally Admission labs and imaging studies reviewed Agree with assessment and plan as outlined above by SHARMIN Dai Dr
[2018-12-25] MEDS ORDERED: METOPROLOL TARTRATE 1 MG/ML VIAL IV ONE (18:44)
[2018-12-25] MEDS ORDERED: ZOLPIDEM TARTRATE 5 MG TAB PO PRN (19:52)
[2018-12-25] MEDS ORDERED: ACETAMINOPHEN 325 MG TAB PO PRN (19:52)
[2018-12-25] MEDS ORDERED: NITROGLYCERIN SL 0.4 MG/TAB TAB SL PRN (19:52)
[2018-12-25] MEDS ORDERED: LEVALBUTEROL HCL 0.63 MG/3 ML NEB NEB SCH (19:52)
[2018-12-25] MEDS ORDERED: DEXTROSE 50% 50 ML SYRINGE IV PRN (20:00)
[2018-12-25] MEDS ORDERED: GLUCOSE 40% GEL 15 GM TUBE PO PRN (20:00)
[2018-12-25] MEDS ORDERED: GLUCOSE 10 TABS/TUBE PO PRN (20:00)
[2018-12-25] MEDS ORDERED: GLUCAGON FOR INJ 1 MG VIAL IM PRN (20:00)
[2018-12-25] MEDS ORDERED: PATIENT'S HEIGHT AND/OR WEIGHT NEEDED SCH (20:00)
[2018-12-25] MEDS ORDERED: PHARMACY GLYCEMIC MGMT CONSULT PRN (20:10)
[2018-12-25] MEDS: guaiFENesin 600 MG TABCR PO SCH (20:41)
[2018-12-25] MEDS: TAMSULOSIN HCL 0.4 MG CAP PO SCH (20:41)
[2018-12-25] MEDS: SIMVASTATIN 20 MG TAB PO SCH (20:42)
[2018-12-25] MEDS: METOPROLOL TARTRATE 50 MG TAB PO SCH (20:42)
[2018-12-25] MEDS: ALBUT/IPRATROP 3MG/0.5MG NEB 3 ML VIAL NEB SCH ×2 (20:56→21:41)
[2018-12-25] MEDS ORDERED: IPRATROPIUM BROMIDE/ALBUTEROL respimat INH INH SCH (21:00)
--- NOTE | 2018-12-25 21:09 | Emergency Department Note ---
Entered by Ariana Winter acting as a scribe for Stan George MD History of Present Illness General Chief complaint: Shortness of Breath/Dyspnea Stated complaint: SOB Source: patient and family () History of Present Illness Onset (ago): day(s) 2 Location: left (Lung) and right (Lung) Severity: similar to prior episodes Pain Consistency: + other (Worsening) Maximum Pain Intensity: 0 Quality: + other (Shortness of breath) Relieved By: not by medication (Antibiotics) Associated symptoms: + cough and + shortness of breath; no chest pain Treatments prior to arrival: other (Antibiotics) The patient is a 78 year old male presenting to the Emergency Department complaining of worsening shortness of breath starting 2 days ago. The patients reports that the patient was released from the hospital 2 days ago and has been experiencing shortness of breath ever since. She states that the patient has a cough that is producing no mucous. She explains that the patient has been taking antibiotics for his symptoms since being discharged from the hospital but does not know what the antibiotic is. She adds that the patient has experienced these symptoms before. The patient reports that he is very short of breath. He states he cannot sleep at night. He states that he has been wearing compression socks and doesnt know if his legs are more swollen that usual. He denies chest pain, fever or vomiting. He did use a nebulizer at home with minimal relief. He is not on prednisone or other steroids. Home Medications Home Medications Medication Instructions Recorded Confirmed Type Combivent Respimat 1 puff INHALATION QID 07/03/18 12/25/18 History Dulera 2 puff INHALATION BID 07/03/18 12/25/18 History Lantus Solostar U-100 Insulin 22 unit SUBCUT QAM 07/03/18 12/25/18 History Novolog Flexpen U-100 Insulin See Rx Instructions .ROUTE .COMPLEX 07/03/18 12/25/18 History aspirin 81 mg PO DAILY 07/03/18 12/25/18 History digoxin 0.125 mg PO 3XWK 07/03/18 12/25/18 History fluticasone furoate 2 spray INTRANASAL DAILY 07/03/18 12/25/18 History nitroglycerin [Nitrostat] 0.4 mg SUBLINGUAL UNKNOWN PRN 07/03/18 12/25/18 History ranitidine HCl 150 mg PO BID 07/03/18 12/25/18 History simvastatin [Zocor] 20 mg PO HS 07/03/18 12/25/18 History tamsulosin [Flomax] 0.4 mg PO HS 07/03/18 12/25/18 History zolpidem [Ambien] 5 mg PO HS PRN 07/03/18 12/25/18 History furosemide 20 mg PO BID 11/27/18 12/25/18 History warfarin 1.25 mg PO Q2D 11/27/18 12/25/18 History warfarin 2.5 mg PO Q2D 11/27/18 12/25/18 History albuterol sulfate 0.63 mg INHALATION QID PRN 12/21/18 12/25/18 History cefuroxime axetil 250 mg PO BID 7 Days #14 tab 12/23/18 12/25/18 Rx doxycycline hyclate 100 mg PO BID 7 Days #14 cap 12/23/18 12/25/18 Rx metoprolol tartrate 50 mg PO BID 12/25/18 12/25/18 History Allergies Allergy/AdvReac Type Severity Reaction Status Date / Time diltiazem Allergy Mild RASH Verified 12/21/18 22:29 aspirin AdvReac Mild GI SYMPTOMS Verified 12/21/18 22:29 lisinopril AdvReac Unknown cough Verified 12/21/18 22:29 propoxyphene AdvReac Unknown STOMACH Verified 12/21/18 22:29 UPSET DIARRHEA fluticasone furoate AdvReac Joint Pain Verified 12/21/18 22:29 [From Breo Ellipta] vilanterol AdvReac Joint Pain Verified 12/21/18 22:29 [From Breo Ellipta] Past Med/Surg History Medical History Tachycardia-bradycardia syndrome (Chronic) Bronchiectasis (Chronic) COPD (chronic obstructive pulmonary disease) (Chronic) HTN (hypertension) (Chronic) Paroxysmal A-fib (Chronic) COPD (chronic obstructive pulmonary disease) (Chronic) "moderate" Hypertension (Chronic) BPH (benign prostatic hypertrophy) (Chronic) History of basal cell carcinoma (Chronic) CKD (chronic kidney disease) stage 3, GFR 30-59 ml/min (Chronic) Diabetes type I (Chronic) Paroxysmal atrial fibrillation (Chronic) Atrial fibrillation with RVR (Acute) BPH (benign prostatic hyperplasia) (Chronic) Surgical History Status post placement of cardiac pacemaker (Chronic) H/O nasal polypectomy (Resolved) History of surgery of head (Resolved) "correct skull abnormality- left temporoparietal ; 1992" History of inguinal hernia repair (Resolved) H/O basal cell carcinoma excision (Chronic) H/O inguinal hernia repair (Chronic) H/O nasal polypectomy (Chronic) History of head, eyes, ears, nose, and throat (HEENT) surgery (Chronic) Family History Other Diabetes Heart disease Social History Preferred Language: Mongolian Communication Ability: Effective Soil Checker Required: No Beliefs That Will Affect Care: None marital status: Current Living Situation: Spouse Current Living Situation Comment: at home Other Information That Helps Us Care for You: No Feels Safe at Home: Yes Safety Concerns: Feels Safe At This Time Smoking Status: Former smoker Tobacco Type: cigarettes ; Smoking End Date: 1995 ; Second Hand Exposure: No ; Hx Alcohol Use: Yes Alcohol type: wine Hx Substance Use: No Review of Systems See HPI for pertinent positives & negatives. and A total of 10 systems reviewed and were otherwise negative Physical Exam Vital Signs Vital Signs - 24 hr 12/25/18 14:32 12/25/18 14:57 12/25/18 15:14 Temperature 36.7 C Temperature Source Oral Sepsis Recent Fever Within 48 Hours No Sepsis Action Taken by Nursing No Action Required Pulse Rate 108 H 114 H Pulse Rate [Right Apical] Pulse Rhythm Regular Pulse Strength Normal Respiratory Rate 22 Respiratory Effort / Characteristics Short of Breath Labored Short of Breath Respiratory Depth Normal Shallow Blood Pressure 162/98 H Blood Pressure [Right Arm] Blood Pressure Mean 119 Blood Pressure Mean [Right Arm] Blood Pressure Position Sitting Blood Pressure Position [Right Arm] Pulse Oximetry 96 92 94 Oxygen Delivery Method Nasal Cannula Nasal Cannula Nasal Cannula Oxygen Flow Rate 4 5 5 12/25/18 16:17 12/25/18 16:29 12/25/18 17:14 Temperature Temperature Source Sepsis Recent Fever Within 48 Hours Sepsis Action Taken by Nursing Pulse Rate Pulse Rate [Right Apical] 115 H 120 H 131 H Pulse Rhythm Pulse Strength Respiratory Rate 22 26 H 22 Respiratory Effort / Characteristics Non-Labored Spontaneous Labored Short of Breath Spontaneous Short of Breath Respiratory Depth Shallow Blood Pressure Blood Pressure [Right Arm] 187/105 H 141/95 H Blood Pressure Mean Blood Pressure Mean [Right Arm] 132 110 Blood Pressure Position Blood Pressure Position [Right Arm] Sitting Sitting Pulse Oximetry 92 97 97 Oxygen Delivery Method Nasal Cannula Nebulizer Nebulizer Oxygen Flow Rate 5 Constitutional: Vital signs reviewed. Coughing throughout exam. Eyes: Pupils are equal round reactive to light. Conjunctiva are noninjected. ENT: Pharynx is clear without erythema or exudate. Mucous membranes are moist. Neck supple without meningeal signs. Respiratory: Clear to auscultation bilaterally. Breath sounds are equal bilaterally. Expiratory wheezing. Cardiovascular: Tachycardic rate and irregularly irregular rhythm. No rubs or gallops. GI: Soft, nondistended and nontender. Bowel sounds are present. Musculoskeletal: No peripheral edema. No lower extremity tenderness. Integumentary: No cyanosis. Neurological: The patient is awake and alert. No focal deficits. Psychiatric: Normal affect. Course 1532: The patient was evaluated in room C5, and a complete history and physical examination were performed. 1611: I reevaluated the patent at this time who is still wheezing but no longer coughing. 1650: I reevaluated the patient at this time whose heart rate now is 130. He is very hypertensive. He is coughing quite a bit and is using his nebulizer. The patients reports that the patient has no prior history of heart failure. 1703: I discussed the patients case with Sahra Chavez PA-C. Dr. Kostas Keating hospitalist will evaluate the patient for further management. Consultations Consultation #1: I discussed the patients case with Sahra Chavez PA-C. Dr. Kostas ybarraist will evaluate the patient for further management. Time: 17:03 Administered Medications Albuterol (Duoneb) 3 ml NEB QIDR RASHEL Stop: 01/24/19 20:59 Last Admin: 12/25/18 20:56 Dose: Not Given Documented by: [id number] Guaifenesin (Mucinex) 1,200 mg PO Q12 RASHEL Stop: 01/24/19 20:59 Last Admin: 12/25/18 20:41 Dose: 1,200 mg Documented by: [id number] Metoprolol Tartrate (Lopressor) 50 mg PO BID [facility] Stop: 01/24/19 20:59 Last Admin: 12/25/18 20:42 Dose: 50 mg Documented by: [id number] Ranitidine HCl (Zantac) 150 mg PO BID [facility] Stop: 01/24/19 20:59 Last Admin: 12/25/18 20:42 Dose: 150 mg Documented by: [id number] Simvastatin (Zocor) 20 mg PO HS [facility] Stop: 01/24/19 20:59 Last Admin: 12/25/18 20:42 Dose: 20 mg Documented by: [id number] Tamsulosin HCl (Flomax) 0.4 mg PO [facility] Stop: 01/24/19 20:59 Last Admin: 12/25/18 20:41 Dose: 0.4 mg Documented by: [id number] Discontinued Medications Albuterol (Duoneb) 12 ml NEB ONE ONE Stop: 12/25/18 16:09 Last Admin: 12/25/18 16:16 Dose: 12 ml Documented by: [id number] Furosemide (Lasix) Confirm Administered Dose 40 mg IV .STK-MED ONE Stop: 12/25/18 17:09 Last Admin: 12/25/18 17:11 Dose: 20 mg Documented by: [id number] Furosemide (Lasix) Confirm Administered Dose 40 mg IV .STK-MED ONE Stop: 12/25/18 18:46 Last Admin: 12/25/18 18:48 Dose: 40 mg Documented by: [id number] Methylprednisolone 60 mg/ (Syringe) 1.96 mls @ 1.5 mls/min IV NOW STA Stop: 12/25/18 16:18 Last Admin: 12/25/18 16:30 Dose: Not Given Documented by: [id number] Furosemide 20 mg/ Syringe 2 mls @ 4 mls/min IV NOW STA Stop: 12/25/18 16:57 Last Admin: 12/25/18 17:11 Dose: Not Given Documented by: [id number] Methylprednisolone (Solumedrol) Confirm Administered Dose 80 mg .ROUTE .STK-MED ONE Stop: 12/25/18 16:29 Last Admin: 12/25/18 16:30 Dose: 60 mg Documented by: [id number] Metoprolol Tartrate (Lopressor) Confirm Administered Dose 5 mg IV .STK-MED ONE Stop: 12/25/18 18:45 Last Admin: 12/25/18 18:48 Dose: 5 mg Documented by: [id number] Nitroglycerin (Nitro-Bid 2%) 1 inch EXT NOW ONE Stop: 12/25/18 16:57 Last Admin: 12/25/18 17:11 Dose: 1 inch Documented by: [id number] Medical Decision Making Differential Diagnosis Differential diagnoses include COPD exacerbation, pneumonia, anemia, bronchitis and sepsis amongst others. Medical Records Attestation: I reviewed the patient's medical records. I did perform a limited focused review of portions of the patient's old chart on the electronic medical record. The patient was admitted for shortness of breath and fever on 12/21/18. He was diagnosed with sepsis and CAP. Home Medications Current Medication List: was personally reviewed by me Laboratory Data Attestation: I reviewed the patient's lab results. Result diagrams: 12/25/18 15:56 12/25/18 15:56 Lab Results 12/25/18 12/25/18 12/25/18 Range/Units 15:31 15:56 15:56 WBC 8.95 (4.8-10.8) K/uL RBC 4.13 L (4.7-6.1) M/uL Hgb 11.6 L (14.0-18.0) g/dL Hct 35.6 L (42-52) % MCV 86.2 (80-100) fL MCH 28.1 (25-34) pg MCHC 32.6 (32-36) g/dL RDW Std Deviation 45.4 (36.4-46.3) fL RDW Coeff of Samira 14.5 (11.5-14.5) % Plt Count 196 (130-400) K/uL MPV 10.2 (7.4-10.4) fL Immature Gran % (Auto) 0.3 % Neut % (Auto) 76.6 % Lymph % (Auto) 10.7 % [place] % (Auto) 11.4 % Eos % (Auto) 0.8 % Baso % (Auto) 0.2 % Immature Gran # (Auto) 0.03 H (0.00-0.02) K/uL Neut # (Auto) 6.85 H (1.4-6.5) K/uL Lymph # (Auto) 0.96 L (1.2-3.4) K/uL [place] # (Auto) 1.02 H (0.11-0.59) K/uL Eos # (Auto) 0.07 (0-0.5) K/uL Baso # (Auto) 0.02 (0-0.2) K/uL PT 27.8 H (9.0-12.0) Seconds INR 2.9 H (0.9-1.1) APTT 41.6 H (21.0-31.0) Seconds PTT Ratio 1.5 Sodium (136-145) mmol/L Potassium (3.5-5.1) mmol/L Chloride (98-107) mmol/L Carbon Dioxide (21-32) mmol/L Anion Gap (3-11) BUN (7-18) mg/dl Creatinine (0.6-1.4) mg/dl Est Cr Clr Drug Dosing Est GFR ( Amer) Est GFR (Non-Af Amer) BUN/Creatinine Ratio (10-20) Glucose (70-99) mg/dl POC Glucose 152 H (70-99) Calcium (8.5-10.1) mg/dl Total Bilirubin (0.2-1) mg/dl AST (15-37) U/L ALT (12-78) U/L Alkaline Phosphatase (45-117) U/L Troponin I (0-0.045) ng/ml NT-Pro-B Natriuret Pep (0-1800) pg/ml Total Protein (6.4-8.2) gm/dl Albumin (3.4-5.0) gm/dl Globulin (2.5-4.0) gm/dl Albumin/Globulin Ratio (0.9-2) 12/25/18 12/25/18 Range/Units 15:56 15:56 WBC (4.8-10.8) K/uL RBC (4.7-6.1) M/uL Hgb (14.0-18.0) g/dL Hct (42-52) % MCV (80-100) fL MCH (25-34) pg MCHC (32-36) g/dL RDW Std Deviation (36.4-46.3) fL RDW Coeff of Samira (11.5-14.5) % Plt Count (130-400) K/uL MPV (7.4-10.4) fL Immature Gran % (Auto) % Neut % (Auto) % Lymph % (Auto) % [place] % (Auto) % Eos % (Auto) % Baso % (Auto) % Immature Gran # (Auto) (0.00-0.02) K/uL Neut # (Auto) (1.4-6.5) K/uL Lymph # (Auto) (1.2-3.4) K/uL [place] # (Auto) (0.11-0.59) K/uL Eos # (Auto) (0-0.5) K/uL Baso # (Auto) (0-0.2) K/uL PT (9.0-12.0) Seconds INR (0.9-1.1) APTT (21.0-31.0) Seconds PTT Ratio Sodium 141 (136-145) mmol/L Potassium 4.3 (3.5-5.1) mmol/L Chloride 107 (98-107) mmol/L Carbon Dioxide 27 (21-32) mmol/L Anion Gap 7.0 (3-11) BUN 32 H (7-18) mg/dl Creatinine 1.57 H (0.6-1.4) mg/dl Est Cr Clr Drug Dosing Not Reportable Est GFR ( Amer) 47.5 Est GFR (Non-Af Amer) 41.0 BUN/Creatinine Ratio 20.1 H (10-20) Glucose 153 H (70-99) mg/dl POC Glucose (70-99) Calcium 9.6 (8.5-10.1) mg/dl Total Bilirubin 0.8 (0.2-1) mg/dl AST 17 (15-37) U/L ALT 21 (12-78) U/L Alkaline Phosphatase 94 (45-117) U/L Troponin I < 0.015 (0-0.045) ng/ml NT-Pro-B Natriuret Pep 4465 H (0-1800) pg/ml Total Protein 7.2 (6.4-8.2) gm/dl Albumin 2.8 L (3.4-5.0) gm/dl Globulin 4.4 H (2.5-4.0) gm/dl Albumin/Globulin Ratio 0.6 L (0.9-2) Imaging Data Radiologist's Impression: Radiology results as stated below per my review and the radiologist's interpretation: XR chest 1V portable CLINICAL HISTORY: 78 years-old Male presenting with SOB. TECHNIQUE: Portable upright AP view of the chest was obtained. COMPARISON: 12/22/2018. FINDINGS: Left subclavian pacer with leads in the right atrium and right ventricular apex. Atherosclerosis of the aortic arch. Cardiac silhouette moderately enlarged. Mild pulmonary vascular prominence. Extensive bibasilar opacities irregular linear as well as patchy in morphology and greater on the right. Trace right pleural effusion suspected. Suture margin noted at the right apex. No pneumothorax. Osseous structures normal. IMPRESSION: 1. Cardiomegaly with mild volume overload. 2. Bibasilar infiltrates similar to prior exam. This could represent aspiration, extensive atelectasis, or infection. Edema is not favored. Electronically signed by: Jono De Leon M.D. 12/25/2018 3:36 PM ECG Data Attestation: I personally reviewed and interpreted this ECG as follows: Indication: SOB/dyspnea Rate (beats per minute): 104 Rhythm: atrial fibrillation (with RVR.) Findings: + other (Anterior fascicular block. ) and + ST depression (in lateral leads.); no ST elevation Comparison ECG Date: from (12/21/18) Change: no significant change Blood Pressure Blood Pressure Findings: Elevated blood pressure Blood Pressure Disposition: further management by hospitalist DIMITRI Rodriguez I did evaluate the patient as noted above. The patient is presenting with worsening shortness of breath since being discharged on Sunday. He is coughing and has wheezing on examination. He also has A. fib with RVR with a heart rate. He denies any chest pain. IV access was established. The patient was placed on a continuous cardiac rehab nurse. I did order and personally review the patient's 12-lead EKG as described above. He has no change from his prior EKG 4 days ago. I did order and personally reviewed the images of the patient's chest x-ray as described above. He has persistent bibasilar infiltrates. He also has evidence of vascular congestion. He was given Lasix and nitroglycerin. I did treat him with an hour-long DuoNeb as well as Solu-Medrol IV. I did order and review the patient's blood work as noted in the electronic medical record. He has chronic anemia. His white count is not elevated. He has chronic kidney disease and his creatinine is below baseline. I did discuss the test results with the patient and his . I did recommend hospitalization. I did discuss case with the hospitalist and therapeutic case manager. Impression & Plan COPD exacerbation, CHF (congestive heart failure), Bilateral pneumonia, CKD (chronic kidney disease), Anemia, Anticoagulated on Coumadin, Atrial fibrillation with RVR Discharge Plan Visit Data *Final* Discharge Date/Time: 12/25/18 18:30 Chief Complaint: Shortness of Breath/Dyspnea Stated Complaint: SOB ED Provider: Stan George Discharge Problem: COPD exacerbation, CHF (congestive heart failure), Bilateral pneumonia, CKD (chronic kidney disease), Anemia, Anticoagulated on Coumadin, Atrial fibrillatio n with RVR Patient Disposition: Admitted As Inpatient The scribe's documentation has been prepared under my direction and personally reviewed by me in its entirety. I confirm that the note above accurately reflects all work, treatment, procedures, and medical decision making performed by me.
[2018-12-25] MEDS: INSULIN ASPART 100 UNITS/ML 3 ML PEN SC SCH ×2 (21:43→23:39)
[2018-12-25] MEDS: cefUROXime axetil 250 MG TABLET PO SCH (21:45)
[2018-12-25] MEDS: methylPREDNISolone 40 MG in SYRINGE 0 ML IV SCH (21:45)
[2018-12-25] MEDS: DOXYCYCLINE HYCLATE 100 MG CAP PO SCH (21:45)
[2018-12-26] MEDS: INSULIN ASPART 100 UNITS/ML 3 ML PEN SC SCH ×5 (04:50→20:19)
[2018-12-26 06:09] LABS: Hematocrit (blood only) 34.4 % (42-52); Hemoglobin 11.1 g/dL (14.0-18.0); Mean Corpuscular Hemoglobin 27.9 pg (25-34); Mean Corpuscular Hgb Conc 32.3 g/dL (32-36); Mean Corpuscular Volume 86.4 fL (80-100); Platelet Count 202 K/uL (130-400); RDW Coefficient of Variation 14.4 % (11.5-14.5); RDW Standard Deviation 45.8 fL (36.4-46.3); Red Blood Count 3.98 M/uL (4.7-6.1); White Blood Count 3.89 K/uL (4.8-10.8)
[2018-12-26] MEDS: methylPREDNISolone 40 MG in SYRINGE 0 ML IV SCH (06:12)
[2018-12-26 06:19] LABS: Prothrombin Time 39.3 Seconds (9.0-12.0)
[2018-12-26 06:21] LABS: INR 4.3 (0.9-1.1)
[2018-12-26 06:38] LABS: BUN Creatinine Ratio 22.4 (10-20); Calcium 9.6 mg/dl (8.5-10.1); Est GFR (Non-African American) 33.6
[2018-12-26] MEDS: ALBUT/IPRATROP 3MG/0.5MG NEB 3 ML VIAL NEB SCH ×5 (07:02→22:24)
[2018-12-26] MEDS ORDERED: INSULIN GLARGINE SOLOSTAR 100 UNITS/ML 3 ML PEN SC ONE (08:00)
[2018-12-26] MEDS: FLUTICASONE PROPIONATE NA SPR 16 GM BTL SCH (08:06)
[2018-12-26] MEDS: cefUROXime axetil 250 MG TABLET PO SCH ×2 (08:06→20:17)
[2018-12-26] MEDS: guaiFENesin 600 MG TABCR PO SCH ×2 (08:07→20:15)
[2018-12-26] MEDS: METOPROLOL TARTRATE 50 MG TAB PO SCH ×2 (08:07→20:18)
[2018-12-26] MEDS: ASPIRIN 81 MG ECTAB PO SCH (08:07)
[2018-12-26] MEDS: DOXYCYCLINE HYCLATE 100 MG CAP PO SCH ×2 (08:07→20:16)
[2018-12-26] MEDS ORDERED: FUROSEMIDE 40 MG in SYRINGE 0 ML IV ONE (09:00)
[2018-12-26] MEDS ORDERED: predniSONE 20 MG TAB PO ONE (11:30)
--- NOTE | 2018-12-26 12:37 | Pharmacy Report ---
Glycemic Control Consultation - Date of Service December 26, 2018 - Scope Scope: Glycemic Pharmacist consulted by Sahra Chavez PA-C on 12/25/18 for glycemic control and to write orders per [facility] inpatient glycemic control protocol - Objective Weight: 90 kg Accuchecks BSG (last 24hrs): 12/25/18 12/25/18 12/25/18 15:31 15:56 19:59 Glucose 153 H POC Glucose 152 H 154 H 12/25/18 12/25/18 12/26/18 20:23 23:37 04:16 Glucose POC Glucose 168 H 251 H 205 H 12/26/18 12/26/18 12/26/18 05:35 07:18 11:26 Glucose 228 H POC Glucose 241 H 268 H Laboratory Data (last 24hrs): 12/25/18 12/26/18 15:56 05:35 Potassium 4.3 5.0 D Carbon Dioxide 27 30 Anion Gap 7.0 5.0 Creatinine 1.57 H 1.85 H Est Cr Clr Drug Dosing Not Reportable 36.0 HbA1c: Laboratory Tests 12/22/18 05:23 Hemoglobin A1c 9.4 H - Recent Pertinent Medications Outpatient Anti-diabetic Regimen: * Lantus 22 units SQ AM * Aspart sliding scale with meals The patient is currently receiving: * Basal insulin: Lantus 22 units every 24 hours given in the AM * Correctional Insulin: Novolog Correction per scale ACHS Goal Range: Low 120 mg/dL - High 160 mg/dL Correction Factor: 20 mg/dL/unit * Prandial insulin: Per carb ratio of 1 unit per 6 grams CHO consumed Risk Factors for Insulin Resistance: * Steroids * Infection * Diet - Assessment & Plan Assessment & Plan: ASSESSMENT: * 78yo Type 1 diabetic male with near adequate outpatient glycemic control per recent A1c. Goal A1c likely 8-9% based on age/co-morbidities. * Pt with severe, sustained hyperglycemia secondary to RTC steroids with solumedrol 40mg IV Q8hrs. Now changed to Prednisone 40mg PO daily * Started with stressed/increased outpatient SQ basal bolus insulin regimen for RTC steroids but will change to NPH + outpatient insulin regimen for once daily prednisone * NPH insulin is used to counteract the hyperglycemic effect of prednisone. The rationale for this approach is that the pharmacodynamics profile of NPH, with a peak effect of 4-8hrs and duration of action of 12-16hrs, mirrors the pharmacodynamics of prednisone. NPH should be dosed at the same time that prednisone is given * The dose of NPH given is dependent on the steroid dose given * For doses of prednisone 40mg/day or above NPH dose should be 0.4 units/kg * NPH dosing above is given in addition to patients basal insulin needs * Typically, patients will also need rapid-acting insulin with meals PLAN FOR INPATIENT GLYCEMIC CONTROL: * Basal insulin * Lantus 40 units SQ x 1 dose 12/26 for RTC solumedrol * Change to Lantus 22 units (outpatient dosing) + NPH 30 units (~0.4 units/kg) tomorrow {hold NPH is prednisone is held} * Bolus insulin * NovoLog per scale ACHS or Q6hrs while NPO * Goal Range: Low 120 mg/dL - High 160 mg/dL * Correction Factor: 20 mg/dL/unit * Nutritional / Prandial insulin per carb ratio of 1 unit per 6 grams CHO consumed * Please note that the plan above was derived based on current level of insulin resistance and hospital stress. These recommendations are appropriate for inpati ent admission only. Plan of care upon discharge will need to be reassessed to avoid potential outpatient hypo/hyperglycemia. Thank you.
--- NOTE | 2018-12-26 15:46 | Hospitalist Progress Note ---
Date of Service December 26, 2018 Assessment & Plan (1) Acute on chronic diastolic heart failure: Presented with acute shortness of breath and the chest x-ray did show pulmonary edema Likely secondary to acute on chronic diastolic heart failure complicated by rapid heart rate due to atrial fibrillation and complicated by valvular heart disease as mentioned below He received a dose of Lasix in the emergency room Received another dose this morning Clinically much better Echo showed-rhythm is a 2 fibrillation, EF 55 to 60%, no regional wall motion abnormalities, mild to moderate mitral regurgitation, moderate tricuspid regurgitation, estimated systolic pulmonary artery pressure discontinued of mercury We will continue home dose of Lasix (2) Atrial fibrillation with RVR: HR increased from 114 to 130s in setting of PNA, volume overload, incorre ct Lopressor dose for the past few days -Expect improvement with treatment of PNA, volume overload -Given 5mg IV Lopressor in ED. Continue home Lopressor 50mg BID dose -Anticoagulated on coumadin with INR of 2.9 today. Monitor daily INR -Heart rate is controlled -Denies any chest pain (3) Volume overload: No known history of CHF but appears to have mild volume overload on CXR and clinically -Most recent 2D echo from July 2017 with mild LVH, preserved EF: 55-60&, mild pulm HTN -Takes Lasix 20mg PO BID at home for lower extremity swelling -Given 20mg IV Lasix in ED, will give additional 40mg IV Lasix this evening and in morning -Strict I&Os, daily weights, continue to monitor volume status closely -Repeat 2D echo as above (4) Acute and chronic respiratory failure: This is an 78yo M with a PMH of DM I, tachybradycardia syndrome s/p pacemaker placement, COPD, paroxysmal atrial fibrillation on Coumadin, nocturnal hypoxia on 2 L nasal cannula at bedtime, HLD and other medical problems listed below who presents with progressive shortness of breath x 3 days and was found to have acute on chronic respiratory failure in the setting of known community acquired pneumonia, COPD exacerbation, volume overload and atrial fibrillation with RVR. -Saturating at 94% on 4 L nasal cannula O2 (only requires 2 L nasal cannula O2 at bedtime at baseline) -In setting of community-acquired pneumonia, COPD exacerbation, volume overload -No signs of increasing pneumonia complicated -We will continue current antibiotics (5) Community acquired pneumonia, bilateral: Continue course of Ceftin and doxycycline to complete 7 day course -Afebrile, no leukocytosis -Blood cultures negative during previous admission. Repeated today -As above (6) COPD exacerbation: History of obstructive lung disease as well as known exposures to biofuels and asbestos, 80 pack year smoking history -Evaluated by pulm service earlier this year for COPD exacerbation and chronic mucopurulent bronchitis -Underwent PFTs with Dr. Johansen in May 2018 with evidence of a moderate obstructive ventilatory defect even more pronounced at low lung volumes. Lung volumes were well within normal limits. Diffusion capacity was moderately reduc ed -Continue antibiotics for PNA, solu-medrol 60mg TID, duoneb QIDR, flutter valve Q4H, mucinex, consider high flow O2 with heated humidified air if unable to clear sputum -Clinically much better and will change IV Solu-Medrol to oral prednisone -40 mg daily for 5 days (7) Diabetes type I: A1c of 9.5 earlier in November -Hold home agents -Glycemic consult placed while patient receiving IV solu-medrol -BSG AC HS -We will keep the steroid course short to minimize the effect on diabetes (8) CKD (chronic kidney disease) stage 3, GFR 30-59 ml/min: Cr 1.57 today (baseline Cr mid-high 1s) -Continue to monitor kidney function in setting of IV Lasix (9) Tachycardia-bradycardia syndrome: S/p pacemaker placement DVT Ppx: coumadin Code status: DNR per discussion with patient PCP: Mell Dispo: Admitted to telemetry. Discharge planning ordered. PT and OT evaluation Likely discharge tomorrow (10) Interstitial lung disease: (11) Status post placement of cardiac pacemaker: Subjective 12/26 The patient was seen and examined in telemetry unit Recently he was in the hospital with the pneumonia and was discharged on of this month He has been taking less dose of metoprolol since discharge Feels a lot better since admission Denies any significant cough and/or shortness of breath Denies any fever and/or chills Review of Systems Review of Systems: All systems reviewed and are unremarkable except as noted below Respiratory: + cough, + dyspnea on exertion and + wheezing Physical Exam Physical Exam: Lying on bed without any distress Constitutional: well developed, well nourished and + obese; no acute distress and not ill appearing Eyes: PERRL, conjunctivae normal, anicteric sclerae ENMT: external ear and nose normal, oropharynx normal Neck: trachea midline, no thyromegaly Respiratory: normal respiratory effort; no respiratory distress Auscultation: + diminished lung sounds and + crackles (Minimal crackles at the bases) Cardiovascular: Rate/Rhythm: regular rate and regular rhythm Heart Sounds: no murmur Gastrointestinal (Abdomen): Inspection/Auscultation: abdomen normal to inspect ion and normal bowel sounds Percussion/Palpation: abdomen soft Musculoskeletal: No acute pain seen in any joints Neurologic: moves all extremities; no focal motor deficits Psychiatric: A+Ox3, euthymic affect Lymphatic: no cervical or axillary lymphadenopathy Results & Data Vital Signs (Past 12 Hours) Vital Signs Temp Pulse Pulse Pulse Resp BP Pulse Ox 12/26/18 15:26 110 H 18 93 12/26/18 11:39 36.4 C L 92 H 17 137/79 95 12/26/18 11:21 106 H 18 95 12/26/18 08:15 105 H 12/26/18 07:40 36.5 C 65 18 147/90 H 96 12/26/18 07:02 107 H 18 98 12/26/18 04:15 36.4 C L 93 H 18 139/86 96 Laboratory Results Short CBC 12/25/18 12/26/18 Range/Units 15:56 05:35 WBC 8.95 3.89 L D (4.8-10.8) K/uL Hgb 11.6 L 11.1 L (14.0-18.0) g/dL Hct 35.6 L 34.4 L (42-52) % Plt Count 196 202 (130-400) K/uL BMP 12/25/18 12/26/18 15:56 05:35 Sodium 141 138 Potassium 4.3 5.0 D Chloride 107 103 Carbon Dioxide 27 30 BUN 32 H 41 H Creatinine 1.57 H 1.85 H Glucose 153 H 228 H Calcium 9.6 9.6 Cardiac Enzymes 12/25/18 Range/Units 15:56 Troponin I < 0.015 (0-0.045) ng/ml Liver Function 12/25/18 Range/Units 15:56 Total Bilirubin 0.8 (0.2-1) mg/dl AST 17 (15-37) U/L ALT 21 (12-78) U/L Alkaline Phosphatase 94 (45-117) U/L Albumin 2.8 L (3.4-5.0) gm/dl Medications Administered Current Inpatient Medications Acetaminophen (Tylenol) 650 mg PO Q4H PRN PRN Reason: Pain or Fever Stop: 01/24/19 19:51 Last Admin: 12/25/18 21:44 Dose: 650 mg Documented by: Albuterol (Duoneb) 3 ml NEB QIDR [facility] Stop: 01/24/19 20:59 Last Admin: 12/26/18 15:26 Dose: 3 ml Documented by: Aspirin (Ecotrin Ectab) 81 mg PO DAILY [facility] Stop: 01/25/19 08:59 Last Admin: 12/26/18 08:07 Dose: 81 mg Documented by: Cefuroxime Axetil (Ceftin) 250 mg PO BID [facility] Stop: 12/30/18 20:59 Last Admin: 12/26/18 08:06 Dose: 250 mg Documented by: Dextrose (Dextrose 50%) 25 - 50 ml IV UD PRN; Protocol PRN Reason: Hypoglycemia Protocol Stop: 01/24/19 19:59 Digoxin (Lanoxin) 0.125 mg PO DAILY@1600 [facility] Stop: 01/25/19 15:59 Doxycycline Hyclate (Vibramycin) 100 mg PO BID [facility] Stop: 12/30/18 20:59 Last Admin: 12/26/18 08:07 Dose: 100 mg Documented by: Fluticasone Propionate (Flonase) 2 sprays NA DAILY [facility] Stop: 01/25/19 08:59 Last Admin: 12/26/18 08:06 Dose: 2 sprays Documented by: Furosemide (Lasix) 20 mg PO BID [facility] Stop: 01/25/19 20:59 Glucagon (Glucagen) 1 mg IM UD PRN; Protocol PRN Reason: Hypoglycemia Protocol Stop: 01/24/19 19:59 Glucose (Glucose 40%) 15 - 30 gm PO UD PRN; Protocol PRN Reason: Hypoglycemia Protocol Stop: 01/24/19 19:59 Glucose (Dex4 Glucose) 4 - 8 tabs PO UD PRN; Protocol PRN Reason: Hypoglycemia Protocol Stop: 01/24/19 19:59 Guaifenesin (Mucinex) 1,200 mg PO Q12 [facility] Stop: 01/24/19 20:59 Last Admin: 12/26/18 08:07 Dose: 1,200 mg Documented by: Insulin Aspart (Novolog Flexpen) 0 units SC ACHS [facility] Stop: 01/24/19 20:59 Last Admin: 12/26/18 11:55 Dose: 13 units Documented by: Insulin Glargine (Lantus Solostar Pen) 22 units SC QAM [facility]; Protocol Stop: 01/26/19 08:59 Insulin Human NPH (Novolin N Nph) 30 units SC DAILY [facility]; Protocol Stop: 01/26/19 08:59 Metoprolol Tartrate (Lopressor) 50 mg PO BID [facility] Stop: 01/24/19 20:59 Last Admin: 12/26/18 08:07 Dose: 50 mg Documented by: Miscellaneous (Carbohydrates For Hypoglycemia) 15 - 30 gm PO UD PRN PRN Reason: Hypoglycemia Treatment Stop: 01/24/19 19:59 Miscellaneous (Order Awaiting Action) 1 ea N/A QS [facility] Stop: 01/25/19 00:00 Last Admin: 12/26/18 08:07 Dose: Not Given Documented by: Miscellaneous Information (Consult Glycemic Management Pharmacy) 1 ea N/A UD PRN PRN Reason: Consult Stop: 01/24/19 20:09 Nitroglycerin (Nitrostat) 0.4 mg SL Q5M PRN PRN Reason: Chest Pain Stop: 01/24/19 19:51 Prednisone (Prednisone) 40 mg PO DAILY [facility] Stop: 12/30/18 09:01 Ranitidine HCl (Zantac) 150 mg PO BID [facility] Stop: 01/24/19 20:59 Last Admin: 12/26/18 08:07 Dose: 150 mg Documented by: Simvastatin (Zocor) 20 mg PO HS [facility] Stop: 01/24/19 20:59 Last Admin: 12/25/18 20:42 Dose: 20 mg Documented by: Tamsulosin HCl (Flomax) 0.4 mg PO HS [facility] Stop: 01/24/19 20:59 Last Admin: 12/25/18 20:41 Dose: 0.4 mg Documented by: Warfarin Sodium (Coumadin) 2.5 mg PO Q48H [facility] Stop: 01/26/19 15:59 Warfarin Sodium (Coumadin) 1.25 mg PO Q48H [facility] Stop: 01/25/19 15:59 Zolpidem Tartrate (Ambien) 5 mg PO HS PRN PRN Reason: Insomnia Stop: 01/24/19 19:51
[2018-12-26] MEDS: DIGOXIN 0.125 MG TAB PO SCH (15:59)
[2018-12-26] MEDS ORDERED: WARFARIN SOD 1.25 MG TAB PO SCH (16:00)
[2018-12-26] MEDS: ALUMINUM/MAGNESIUM SUSP 30 ML UDC PO PRN (16:39)
[2018-12-26] MEDS: FUROSEMIDE 20 MG TAB PO SCH (20:17)
[2018-12-26] MEDS: TAMSULOSIN HCL 0.4 MG CAP PO SCH (20:18)
[2018-12-26] MEDS: SIMVASTATIN 20 MG TAB PO SCH (20:18)
[2018-12-26] MEDS ORDERED: BENZONATATE 100 MG CAPSULE PO PRN (22:34)
[2018-12-26] MEDS ORDERED: METOPROLOL TARTRATE 1 MG/ML VIAL IV STA (22:35)
[2018-12-26] MEDS ORDERED: MAGNESIUM SULFATE / D5W 1 GM/100 ML BAG IV ONE (22:36)
[2018-12-27] MEDS ORDERED: METOPROLOL TARTRATE 1 MG/ML VIAL IV STA (00:51)
[2018-12-27 01:25] LABS: Hematocrit (blood only) 32.2 % (42-52); Hemoglobin 10.5 g/dL (14.0-18.0); Mean Corpuscular Hemoglobin 28.1 pg (25-34); Mean Corpuscular Hgb Conc 32.6 g/dL (32-36); Mean Corpuscular Volume 86.1 fL (80-100); Mean Platelet Volume 9.5 fL (7.4-10.4); Platelet Count 225 K/uL (130-400); RDW Coefficient of Variation 14.4 % (11.5-14.5); RDW Standard Deviation 44.9 fL (36.4-46.3); Red Blood Count 3.74 M/uL (4.7-6.1); White Blood Count 10.44 K/uL (4.8-10.8)
[2018-12-27 01:45] LABS: Basophils # (auto) 0.01 K/uL (0-0.2); Basophils % (auto) 0.1 %; Immature Granulocytes # (auto) 0.04 K/uL (0.00-0.02); Immature Granulocytes % (auto) 0.4 %; Lymphocytes # (auto) 0.63 K/uL (1.2-3.4); Monocytes # (auto) 0.46 K/uL (0.11-0.59); Monocytes % (auto) 4.4 %; Neutrophils % (auto) 89.1 %; Ovalocytes 1+
[2018-12-27 01:51] LABS: BUN Creatinine Ratio 29.4 (10-20); Calcium 8.8 mg/dl (8.5-10.1); Creatinine Clr Calc Pharmacy 33.3 ml/min; Est GFR (African American) 35.5; Est GFR (Non-African American) 30.6; Magnesium 2.3 mg/dl (1.8-2.4); Potassium 4.7 mmol/L (3.5-5.1)
[2018-12-27 01:52] LABS: Prothrombin Time 52.4 Seconds (9.0-12.0)
[2018-12-27 02:02] LABS: Beta-Hydroxybutyrate 3.41 mg/dl (0.2-2.81)
[2018-12-27 02:11] LABS: INR 5.8 (0.9-1.1)
[2018-12-27] MEDS ORDERED: PHYTONADIONE 5 MG TAB PO STA (02:12)
[2018-12-27] MEDS ORDERED: INSULIN ASPART 100 UNITS/ML 3 ML PEN SC SCH (02:15)
[2018-12-27] MEDS ORDERED: ALBUMIN 25% 50 ML IV ONE (05:29)
[2018-12-27] MEDS: ALBUT/IPRATROP 3MG/0.5MG NEB 3 ML VIAL NEB SCH ×4 (06:56→19:09)
[2018-12-27] MEDS: predniSONE 20 MG TAB PO SCH (08:02)
[2018-12-27] MEDS: cefUROXime axetil 250 MG TABLET PO SCH (08:02)
[2018-12-27] MEDS: DOXYCYCLINE HYCLATE 100 MG CAP PO SCH (08:04)
[2018-12-27] MEDS: METOPROLOL TARTRATE 50 MG TAB PO SCH ×2 (08:04→20:49)
[2018-12-27] MEDS: INSULIN ASPART 100 UNITS/ML 3 ML PEN SC SCH ×4 (08:08→20:51)
[2018-12-27] MEDS: INSULIN GLARGINE SOLOSTAR 100 UNITS/ML 3 ML PEN SC SCH (08:09)
[2018-12-27] MEDS: guaiFENesin 600 MG TABCR PO SCH ×2 (08:10→20:50)
[2018-12-27] MEDS: ASPIRIN 81 MG ECTAB PO SCH (08:10)
[2018-12-27] MEDS: FLUTICASONE PROPIONATE NA SPR 16 GM BTL SCH (08:10)
[2018-12-27] MEDS ORDERED: INSULIN GLARGINE SOLOSTAR 100 UNITS/ML 3 ML PEN SC SCH (09:00)
--- NOTE | 2018-12-27 09:09 | Hospitalist Progress Note ---
Date of Service December 27, 2018 Assessment & Plan (1) Acute and chronic respiratory failure: This is an 78yo M with a PMH of DM I, tachybradycardia syndrome s/p pacemaker placement, COPD, paroxysmal atrial fibrillation on Coumadin, nocturnal hypoxia on 2 L nasal cannula at bedtime, HLD and other medical problems listed below who presents with progressive shortness of breath x 3 days and was found to have acute on chronic respiratory failure in the setting of known community acquired pneumonia, COPD exacerbation, volume overload and atrial fibrillation with RVR. -In setting of pneumonia- possibly healthcare associated, COPD exacerbation, volume overload (2) Pneumonia: CT chest: 1. Tracheomalacia with large amount of secretions/mucous plugging about the bronchus intermedius and right lower lobe bronchi with additional mucous plugging within the segmental bronchial branches of the left lower lobe. 2. Bibasilar patchy groundglass and consolidative opacities appear to have mildly improved from 12/25/2018 chest radiograph and are suggestive of aspiration pneumonitis versus bibasilar pneumonia. 3. Small hiatal hernia. 4. Cardiomegaly without overt pulmonary edema. 5. Emphysema. 6. Calcified pleural plaques of the right hemithorax redemonstrated. sputum culture: pending blood cultures: pending on Zosyn IV continue Nebs continue Prednisone check Nasal MRSA Pulmonary consulted (3) COPD exacerbation: History of COPD, Tracheomalacia, Bronchiectasis History of obstructive lung disease as well as known exposures to biofuels and asbestos, 80 pack year smoking history -Evaluated by pulm service earlier this year for COPD exacerbation and chronic mucopurulent bronchitis -Underwent PFTs with Dr. Johansen in May 2018 with evidence of a moderate obstructive ventilatory defect even more pronounced at low lung volumes. Lung volumes were well within normal limits. Diffusion capacity was moderately reduced management as noted above (4) Acute on chronic diastolic heart failure: Presented with acute shortness of breath and the chest x-ray did show pulmonary edema Likely secondary to acute on chronic diastolic heart failure complicated by rapid heart rate due to atrial fibrillation and complicated by valvular heart disease as mentioned below Echo showed-rhythm is atrial fibrillation, EF 55 to 60%, no regional wall motion abnormalities, mild to moderate mitral regurgitation, moderate tricuspid regurgitation, estimated systolic pulmonary artery pressure discontinued of mercury received IV Lasix Digoxin increased to daily crea increased to 2.00 patient on the dry side HOLD Lasix monitor Account Support Associate consulted (5) Atrial fibrillation with RVR: HR increased from 114 to 130s in setting of PNA, volume overload, incorrect Lopressor dose for the past few days - Digoxin increased to daily -Heart rate is controlled Account Support Associate consulted INR 4.3 hemoptysis resolved HOLD coumadin monitor INR (6) Volume overload: management as noted above (7) Diabetes type I: A1c of 9.5 earlier in November monitor (8) CKD (chronic kidney disease) stage 3, GFR 30-59 ml/min: creatinine trending up, from 1.5 now 2.00 HOLD Lasix monitor creatinine (9) Tachycardia-bradycardia syndrome: S/p pacemaker placement DVT Ppx: INR supratherapeutic, coumadin ON HOLD Code status: DNR per discussion with patient PCP: Mell Dispo: Admitted to telemetry. Discharge planning ordered. PT and OT evaluation Subjective ff up for hypoxia, Pneumonia, COPD exacerbation seen resting in bed, not in distress, comfortable reports increased productive cough yesterday- associated with hemoptysis- none today states breathing is about the same no fevers/chills denies chest pain, dyspnea, palpitations, dizziness no other symptoms Review of Systems Review of Systems: All systems reviewed & are unremarkable except as noted in HPI & below Physical Exam Physical Exam: General- oriented x 3, not in distress, speaks in sentences with no effort or accessory muscle use Head- atraumatic Eyes- PERRL, EOMI, anicteric ENT- oropharynx clear Neck- supple, no JVD, no adenopathy, no thyromegaly; carotids +2/2, no bruits appreciated Lungs- occasional crackles at the bases, no wheezing Heart- normal rate, regular rhythm; no murmur, no gallop, no rub appreciated Abdomen- normal bowel sounds, nondistended, soft, nontender, no masses or hepatosplenomegaly Extremities- no pretibial edema, no calf tenderness; peripheral pulses intact Neuro- alert, oriented x 3; CN 2-12 grossly intact; motor 5/5 bilaterally;sensation 100% on all extremities; no other gross focal neurologic deficits Skin- warm & dry Results & Data Vital Signs (Past 12 Hours) Vital Signs Temp Pulse Pulse Resp BP BP BP 12/27/18 07:34 36.5 C 95 H 18 125/73 12/27/18 06:56 101 H 16 12/27/18 03:57 36.3 C L 100 H 26 H 135/79 12/27/18 01:56 104 H 111/65 12/27/18 00:00 107 H 12/26/18 23:30 36.3 C L 112 H 20 154/66 H 12/26/18 22:49 117 H 138/81 12/26/18 22:25 117 H 20 Pulse Ox 12/27/18 07:34 96 12/27/18 06:56 99 12/27/18 03:57 92 12/27/18 01:56 12/27/18 00:00 12/26/18 23:30 98 12/26/18 22:49 12/26/18 22:25 95 Laboratory Results Laboratory Results - last 24 hr 12/26/18 12/26/18 12/26/18 16:33 20:18 22:17 WBC RBC Hgb Hct MCV MCH MCHC RDW Std Deviation RDW Coeff of Samira Plt Count MPV Immature Gran % (Auto) Neut % (Auto) Lymph % (Auto) [place] % (Auto) Eos % (Auto) Baso % (Auto) Immature Gran # (Auto) Neut # (Auto) Lymph # (Auto) [place] # (Auto) Eos # (Auto) Baso # (Auto) Ovalocytes PT INR Sodium Potassium Chloride Carbon Dioxide Anion Gap BUN Creatinine Est Cr Clr Drug Dosing Est GFR ( Amer) Est GFR (Non-Af Amer) BUN/Creatinine Ratio Glucose POC Glucose 190 H 143 H 190 H Calcium Magnesium Beta-Hydroxybutyric Acd Urine Color Urine Appearance Urine pH Ur Specific [place] Urine Protein Urine Glucose (UA) Urine Ketones Urine Blood Urine Nitrite Urine Bilirubin Urine Urobilinogen Ur Leukocyte Esterase 12/27/18 12/27/18 12/27/18 01:12 01:12 01:12 WBC 10.44 RBC 3.74 L Hgb 10.5 L Hct 32.2 L MCV 86.1 MCH 28.1 MCHC 32.6 RDW Std Deviation 44.9 RDW Coeff of Samira 14.4 Plt Count 225 MPV 9.5 Immature Gran % (Auto) 0.4 Neut % (Auto) 89.1 Lymph % (Auto) 6.0 [place] % (Auto) 4.4 Eos % (Auto) 0.0 Baso % (Auto) 0.1 Immature Gran # (Auto) 0.04 H Neut # (Auto) 9.30 H Lymph # (Auto) 0.63 L [place] # (Auto) 0.46 Eos # (Auto) 0.00 Baso # (Auto) 0.01 Ovalocytes 1+ PT 52.4 H INR 5.8 H* Sodium 137 Potassium 4.7 Chloride 100 Carbon Dioxide 30 Anion Gap 7.0 BUN 59 H Creatinine 2.00 H Est Cr Clr Drug Dosing 33.3 Est GFR ( Amer) 35.5 Est GFR (Non-Af Amer) 30.6 BUN/Creatinine Ratio 29.4 H Glucose 318 H* POC Glucose Calcium 8.8 Magnesium 2.3 Beta-Hydroxybutyric Acd 3.41 H Urine Color Urine Appearance Urine pH Ur Specific [place] Urine Protein Urine Glucose (UA) Urine Ketones Urine Blood Urine Nitrite Urine Bilirubin Urine Urobilinogen Ur Leukocyte Esterase 12/27/18 12/27/18 12/27/18 07:17 11:11 11:16 WBC RBC Hgb Hct MCV MCH MCHC RDW Std Deviation RDW Coeff of Samira Plt Count MPV Immature Gran % (Auto) Neut % (Auto) Lymph % (Auto) [place] % (Auto) Eos % (Auto) Baso % (Auto) Immature Gran # (Auto) Neut # (Auto) Lymph # (Auto) [place] # (Auto) Eos # (Auto) Baso # (Auto) Ovalocytes PT 40.1 H INR 4.3 H Sodium Potassium Chloride Carbon Dioxide Anion Gap BUN Creatinine Est Cr Clr Drug Dosing Est GFR ( Amer) Est GFR (Non-Af Amer) BUN/Creatinine Ratio Glucose POC Glucose 160 H 358 H* Calcium Magnesium Beta-Hydroxybutyric Acd Urine Color Urine Appearance Urine pH Ur Specific [place] Urine Protein Urine Glucose (UA) Urine Ketones Urine Blood Urine Nitrite Urine Bilirubin Urine Urobilinogen Ur Leukocyte Esterase 12/27/18 12/27/18 12/27/18 11:17 12:50 14:45 WBC RBC Hgb Hct MCV MCH MCHC RDW Std Deviation RDW Coeff of Samira Plt Count MPV Immature Gran % (Auto) Neut % (Auto) Lymph % (Auto) [place] % (Auto) Eos % (Auto) Baso % (Auto) Immature Gran # (Auto) Neut # (Auto) Lymph # (Auto) [place] # (Auto) Eos # (Auto) Baso # (Auto) Ovalocytes PT INR Sodium Potassium Chloride Carbon Dioxide Anion Gap BUN Creatinine Est Cr Clr Drug Dosing Est GFR ( Amer) Est GFR (Non-Af Amer) BUN/Creatinine Ratio Glucose POC Glucose 370 H* 397 H* Calcium Magnesium Beta-Hydroxybutyric Acd Urine Color Yellow Urine Appearance Clear Urine pH 5.0 Ur Specific [place] 1.023 Urine Protein Negative Urine Glucose (UA) 3+ H Urine Ketones Negative Urine Blood Negative Urine Nitrite Negative Urine Bilirubin Negative Urine Urobilinogen Negative Ur Leukocyte Esterase Negative (1) Acute and chronic respiratory failure Respiratory failure complication: hypoxia Qualified Code(s): J96.21 - Acute and chronic respiratory failure with hypoxia
--- NOTE | 2018-12-27 09:45 | CT Scan Report ---
CT chest wo con CT DOSE: 418.70 mGy.cm CLINICAL HISTORY: 78 years-old Male with hypoxia, ff up pneumonia. Acute hypoxia. Follow up study in a patient with history of pneumonia TECHNIQUE: Multiaxial CT images of the chest were performed without contrast. A dose lowering techni que was utilized adhering to the principles of ALARA. COMPARISON: Chest radiograph 12/25/2018, chest CT 05/07/2018 FINDINGS: No focal thyroid nodule. There are a few mildly prominent paratracheal and mediastinal lymph nodes wh ich appear unchanged. Moderate cardiomegaly without pericardial effusion. Left subclavian pacer noted with leads overlying the right atrium and right ventricle. Coronary arterial and mitral annular calc ifications are noted. Mild dilation of the ascending thoracic aorta, 3.9 x 4.0 cm. Additionally, ther e is mild dilation of the main pulmonary artery which may reflect pulmonary hypertension the appropri ate clinical setting. Scattered calcified pleural plaques noted about the right hemithorax. No pneumothorax. Postsurgical c hanges of the right lung apex. Moderate emphysema. Patchy bibasilar consolidative and groundglass opa cities of the lung bases are redemonstrated which appear to have mildly improved from 12/25/2018. Mild pleural parenchymal scarring of the lung bases redemonstrated. Decreased AP dimension of the trachea suggests tracheomalacia. Large amount of secretions noted about the bronchus intermedius and right l ower lobe bronchi. Mucus plugging of the left lower lobe is also noted. No obstructing endobronchial mass definitively seen. Small hiatal hernia. No acute process of the imaged upper abdomen. Hypodense 10 mm lesion of the righ t hepatic lobe is unchanged and may reflect a cyst. Soft tissues are within normal limits. Bones appe ar to be intact. No suspicious bone lesions. There is mild superior endplate compression of approxima tely 20% at the T12 and L1 levels, unchanged from comparison. IMPRESSION: 1. Tracheomalacia with large amount of secretions/mucous plugging about the bronchus intermedius and right lower lobe bronchi with additional mucous plugging within the segmental bronchial branches of t he left lower lobe. 2. Bibasilar patchy groundglass and consolidative opacities appear to have mildly improved from 2018 chest radiograph and are suggestive of aspiration pneumonitis versus bibasilar pneumonia. 3. Small hiatal hernia. 4. Cardiomegaly without overt pulmonary edema. 5. Emphysema. 6. Calcified pleural plaques of the right hemithorax redemonstrated. Electronically signed by: Jesús Magaña M.D. 12/27/2018 9:44 AM
[2018-12-27] MEDS: INSULIN HUMAN NPH SC SCH (09:48)
--- NOTE | 2018-12-27 10:18 | Pharmacy Report ---
Pharmacy Glycemic Short Note 2 - Date of Service December 27, 2018 - Glycemic Short BSG Results (Last 24 hours): 12/26/18 12/26/18 12/26/18 11:26 16:33 20:18 Glucose POC Glucose 268 H 190 H 143 H 12/26/18 12/27/18 12/27/18 22:17 01:12 07:17 Glucose 318 H* POC Glucose 190 H 160 H OUTPATIENT ANTIDIABETIC REGIMEN: * Lantus 22 units SQ AM * Aspart sliding scale with meals ASSESSMENT: * 78yo Type 1 diabetic male with near adequate outpatient glycemic control per recent A1c. Goal A1c likely 8-9% based on age/co-morbidities. * Pt with hyperglycemia secondary to steroids and pulmonary infection. Solu medrol IV changed to Prednisone 40mg PO daily on 12/26 with plans to continue x 5 days. * Pt was given an increased dose of Lantus yesterday (40 units in the AM). Lantus was changed back to home dose of 22 units daily starting today and weight-based NPH was added to counteract the hyperglycemic effect of prednisone. NPH should be dosed at the same time that prednisone is given. * Lunch BSG significantly elevated (358). I suspected this was due to incorrect carb coverage with breakfast (pt was given 2 units and should have received 7 units), however a repeat BSG @ 1430 was also high (397). I have ordered an IV insulin bolus and will add overnight checks. I am hesitant to make additional changes at this time per has already been given 12 additional units of basal insulin compared to yesterday. PLAN FOR INPATIENT GLYCEMIC CONTROL: * Basal insulin * Lantus 22 units SQ daily (home dose) * NPH 30 units SQ daily given with prednisone (0.4 units/kg) * IV regular insulin 5 unit bolus x 1 * Bolus insulin * NovoLog per scale ACHS or Q6hrs while NPO * Goal Range: Low 120 mg/dL - High 160 mg/dL * Correction Factor: 20 mg/dL/unit * Nutritional / Prandial insulin per carb ratio of 1 unit per 6 grams CHO consumed * Add overnight checks Correction factor: 30 mg/dl/unit Carb ratio: 1 unit per 11 grams CHO consumed * Please note that the plan above was derived based on current level of insulin resistance and hospital stress. These recommendations are appropriate for inpatient admission only. Plan of care upon discharge will need to be reassessed to avoid potential outpatient hypo/hyperglycemia. Thank you.
--- NOTE | 2018-12-27 11:11 | Cardiology Consultation ---
Date of Consultation December 27, 2018 Assessment & Plan (1) Acute and chronic respiratory failure: (2) Community acquired pneumonia, bilateral: (3) Hemoptysis: (4) COPD exacerbation: (5) Interstitial lung disease: (6) Chronic diastolic heart failure: (7) Atrial fibrillation with RVR: (8) Supratherapeutic INR: Plan/Recommendations: Respiratory status improving at this time with current medical therapies. Patient does not appear overtly volume overloaded. With elevated BUN and cre atinine, agree with holding diuretic therapy today. Repeat basic metabolic panel in a.m. I ordered a repeat INR. Consider additional vitamin K if INR greater than 6.0 or any recurrent hemoptysis. Currently patient's heart rate is reasonably controlled although mildly elevated due to underlying hypoxia and respiratory insufficiency. We will continue to monitor at this time. I would not add additional AV edouard blocking agents and would avoid IV AV edouard blocking agents unless patient becomes symptomatic during periods of rapid atrial fibrillation. Recent echocardiogram reviewed demonstrating preserved LV systolic function. No additional cardiac testing at this time. Thank you for allowing me to participate in the care of your patient. History of Present Illness Reason for Consultation: CHF Requesting Physician: Dr. Rucker Attending Physician: Gurdeep Rucker MD History of Present Illness Complex 78-year-old patient recently admitted with community-acquired pneumonia presents to the emergency department with worsening shortness of breath. Patient found to be hypoxic on presentation. Treated with diuretic therapy, corticosteroids, nebulizer treatments. Reports episode of hemoptysis last evening. INR 5.8 last evening and patient received 2.5 mg of vitamin K. Coumadin on hold today. No recurrent hemoptysis this morning. Creatinine trending upward while on oral diuretic therapy. Lasix currently on hold. Resting 2D transthoracic echocardiogram performed s demonstrates preserved LV systolic function. Currently, patient resting comfortably. States respiratory status has improved. Notes mild nonproductive cough. No orthopnea or PND last evening however was suffering from orthopnea over the past few days since his diagnosis of community-acquired pneumonia. 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 Allergies Allergy/AdvReac Type Severity Reaction Status Date / Time diltiazem Allergy Mild RASH Verified 12/21/18 22:29 aspirin AdvReac Mild GI SYMPTOMS Verified 12/21/18 22:29 lisinopril AdvReac Unknown cough Verified 12/21/18 22:29 propoxyphene AdvReac Unknown STOMACH Verified 12/21/18 22:29 UPSET DIARRHEA fluticasone furoate AdvReac Joint Pain Verified 12/21/18 22:29 [From Breo Ellipta] vilanterol AdvReac Joint Pain Verified 12/21/18 22:29 [From Bre Ellipta] Home Medications Home Medications Medication Instructions Recorded Confirmed Type Combivent Respimat 1 puff INHALATION QID 07/03/18 12/25/18 History Dulera 2 puff INHALATION BID 07/03/18 12/25/18 History Lantus Solostar U-100 Insulin 22 unit SUBCUT QAM 07/03/18 12/25/18 History Novolog Flexpen U-100 Insulin See Rx Instructions .ROUTE .COMPLEX 07/03/18 12/25/18 History aspirin 81 mg PO DAILY 07/03/18 12/25/18 History digoxin 0.125 mg PO 3XWK 07/03/18 12/25/18 History fluticasone furoate 2 spray INTRANASAL DAILY 07/03/18 12/25/18 History nitroglycerin [Nitrostat] 0.4 mg SUBLINGUAL UNKNOWN PRN 07/03/18 12/25/18 History ranitidine HCl 150 mg PO BID 07/03/18 12/25/18 History simvastatin [Zocor] 20 mg PO HS 07/03/18 12/25/18 History tamsulosin [Flomax] 0.4 mg PO HS 07/03/18 12/25/18 History zolpidem [Ambien] 5 mg PO HS PRN 07/03/18 12/25/18 History furosemide 20 mg PO BID 11/27/18 12/25/18 History warfarin 1.25 mg PO Q2D 11/27/18 12/25/18 History warfarin 2.5 mg PO Q2D 11/27/18 12/25/18 History albuterol sulfate 0.63 mg INHALATION QID PRN 12/21/18 12/25/18 History cefuroxime axetil 250 mg PO BID 7 Days #14 tab 12/23/18 12/25/18 Rx doxycycline hyclate 100 mg PO BID 7 Days #14 cap 12/23/18 12/25/18 Rx metoprolol tartrate 50 mg PO BID 12/25/18 12/25/18 History Patient History Medical History Tachycardia-bradycardia syndrome (Chronic) Bronchiectasis (Chronic) COPD (chronic obstructive pulmonary disease) (Chronic) HTN (hypertension) (Chronic) Paroxysmal A-fib (Chronic) COPD (chronic obstructive pulmonary disease) (Chronic) "moderate" Hypertension (Chronic) BPH (benign prostatic hypertrophy) (Chronic) History of basal cell carcinoma (Chronic) CKD (chronic kidney disease) stage 3, GFR 30-59 ml/min (Chronic) Diabetes type I (Chronic) Paroxysmal atrial fibrillation (Chronic) Atrial fibrillation with RVR (Acute) BPH (benign prostatic hyperplasia) (Chronic) Surgical History Status post placement of cardiac pacemaker (Chronic) H/O nasal polypectomy (Resolved) History of surgery of head (Resolved) "correct skull abnormality- left temporoparietal ; 1992" History of inguinal hernia repair (Resolved) H/O basal cell carcinoma excision (Chronic) H/O inguinal hernia repair (Chronic) H/O nasal polypectomy (Chronic) History of head, eyes, ears, nose, and throat (HEENT) surgery (Chronic) Family History Other Diabetes Heart disease Social History Preferred Language: Moldovan Communication Ability: Effective Content Development Manager Required: No Beliefs That Will Affect Care: None marital status: Current Living Situation: Spouse Current Living Situation Comment: at home Other Information That Helps Us Care for You: No Feels Safe at Home: Yes Safety Concerns: Feels Safe At This Time Smoking Status: Former smoker Tobacco Type: cigarettes ; Smoking End Date: 1995 ; Second Hand Exposure: No ; Hx Alcohol Use: Yes Alcohol type: wine Hx Substance Use: No Review of Systems Review of Systems: All systems reviewed & are unremarkable except as noted in HPI & below Physical Exam Physical Exam: General: NAD, AAO x3, well nourished. Chronically ill. Hard of hearing. HEENT: Normocephalic. Atraumatic. Conjunctiva pink, no scleral icterus. Neck: No carotid bruits, the carotid upstrokes are brisk. No JVD. No HJR Heart: Irregular rhythm. Borderline tachycardic. Normal S1 and S2. 2/6 midsystolic murmur heard best at left sternal border. PMI is not displaced. No RV heave. Lungs: Crackles at the rest base. Mild end expiratory wheeze noted. Abdomen: Normal bowel sounds. Soft. Nontender. No masses or organomegaly. No abdominal bruits. Extremities: No clubbing, cyanosis, or edema. Pulses: radial=2/4, Dorsalis pedis =2/4, posterior tibial=2/4. Neuro: Cranial nerves gr ossly intact. No focal motor deficit. Results & Data Vital Signs (Past 12 Hours) Vital Signs Temp Pulse Pulse Resp BP BP BP 12/27/18 07:34 36.5 C 95 H 18 125/73 12/27/18 06:56 101 H 16 12/27/18 03:57 36.3 C L 100 H 26 H 135/79 12/27/18 01:56 104 H 111/65 12/27/18 00:00 107 H 12/26/18 23:30 36.3 C L 112 H 20 154/66 H Pulse Ox 12/27/18 07:34 96 12/27/18 06:56 99 12/27/18 03:57 92 12/27/18 01:56 12/27/18 00:00 12/26/18 23:30 98 (1) Acute and chronic respiratory failure Respiratory failure complication: hypoxia Qualified Code(s): J96.21 - Acute and chronic respiratory failure with hypoxia
[2018-12-27] MEDS ORDERED: PIPERACILL/TAZOBAC CONSULT ACTIVE PRN (11:42)
[2018-12-27 11:43] LABS: Prothrombin Time 40.1 Seconds (9.0-12.0)
[2018-12-27 11:44] LABS: INR 4.3 (0.9-1.1)
[2018-12-27] MEDS ORDERED: PHARMACY GLYCEMIC MGMT CONSULT STA (11:51)
[2018-12-27] MEDS: FLUTICASONE/SALMETEROL 100/50 (ADVAIR) 14 PUFF/1 INHALER INH SCH ×2 (12:27→20:49)
[2018-12-27] MEDS ORDERED: PIPERACILLIN/TAZOBACTAM 3.375 GM in DEXTROSE 5% 100 ML IV ONE (12:30)
[2018-12-27 13:01] LABS: Appearance Urine Clear (Clear); Bilirubin Urine Negative (Negative); Blood Urine Negative (Negative); Color Urine Yellow; Glucose Urine UA 3+ (Negative); Ketones Urine Negative (Negative); Leukocyte Esterase Urine Negative (Negative); Nitrite Urine Negative (Negative); Protein Urine Negative (Negative); Specific Gravity Urine 1.023 (1.000-1.030); Urobilinogen Urine Negative (Negative)
--- NOTE | 2018-12-27 13:36 | Consultation Report ---
DATE OF CONSULTATION: 12/27/2018 PULMONARY MEDICINE CONSULTATION TIME: 1000 hours. REASON FOR CONSULTATION: Hemoptysis. HISTORY OF PRESENT ILLNESS: An 78-year-old white male with severe COPD and well known to me having followed him as an outpatient. Was readmitted from the ER on to the hospitalist service on 12/25/2018. The patient had been previously admitted on 12/21/2018 and was discharged on 12/24/2018. At that time, he was admitted with progressive shortness of breath and fever. He is a type 1 diabetic, has dyslipidemia, diabetic peripheral neuropathy, and awwdvzeo-fh-rzreap COPD, nocturnal hypoxemia on oxygen at night 2 liters and p.r.n. during the day, and history of severe COPD with a degree of chronic bronchiectasis and underlying interstitial lung disease. He has also had significant asbestos exposure and occupational pneumoconiosis along with paroxysmal atrial fibrillation and has been on Coumadin therapy indefinitely. He also has chronic renal disease stage III, BPH, eczematoid dermatitis, tachybrady syndrome, status post cardiac pacemaker insertion. He was admitted with a cough and fever initially and producing purulent phlegm. Lactic acid was 2.4. He was started on IV Rocephin and azithromycin. Apparently responded to aggressive treatment and was able to be discharged on 12/24/2018. To his recollection, he felt much improved and was able to go home, but unfortunately within 2 days' time he became progressively more dyspneic to the point where he used his oxygen continually and had his bring him back to the hospital. Over the past 24-36 hours, he has noted initially pink-tinged sputum and this morning gross hemoptysis was noted with he states filling the bottom of a cup 1/2 inch high with bright red and dark blood. The patient once again has been on anticoagulant therapy. He has been followed by Dr. Stan Hall who saw him in consultation this morning as well. His diuretic therapy has been held because of an elevated BUN and creatinine. His Coumadin has been held and his INR was markedly elevated and he has been given vitamin K. Currently, he is sitting talking to me without any signs of respiratory distress. His echocardiogram shows well-preserved LV systolic function. He has been diagnosed with a community-acquired pneumonia. He was markedly hypoxic on admission. INR was 5.8 last evening and he received 2.5 mg of vitamin K with Coumadin being on hold. For details of past medical history, medications, family and social history, I refer you to current and past record. He has had a history of nasal polypectomy and surgery on his cranium, left temporoparietal region, in 1992 for reasons that are not clear. He has had inguinal hernia repair. Former smoker which ended in 1995 and denies alcohol abuse. No pleuritic pain currently. PHYSICAL EXAMINATION: CURRENT VITAL SIGNS: Blood pressure 154/94, pulse 92 and regular, respiratory rate 18, temperature 36.7, O2 sat 99% on 3 liters. SKIN: Without lesion. HEENT: Atraumatic, normocephalic, PERRLA, EOMI. Conjunctivae pale. Sclerae nonicteric. Fundi poorly visualized. NECK: Neck veins are not distended at 45 degrees. No evidence of adenopathy in the supra or infraclavicular areas. LUNGS: Scattered rhonchi. Distant P and A with marked hyperresonance. CARDIAC: Irregular rate and irregular rhythm with a controlled ventricular response. No S3. I do not appreciate any gallop. Grade 2/6 systolic murmur heard at the apex. ABDOMEN: Soft, scaphoid. No evidence for hepatosplenomegaly. EXTREMITIES: Trace pedal edema. No clubbing. Peripheral cyanosis. NEUROLOGICAL: Cranial nerves II-XII grossly intact. No lateralizing signs. LABORATORY DATA: Echo done during this hospitalization shows an EF of 55% to 60%. Pulmonary arterial systolic pressure estimated at 50 mmHg. Cipf-od-azcrybak mitral regurgitation noted. Other laboratory data, chest CT done on admission this time shows tracheomalacia with a large amount of secretions, mucus plugging about the bronchus intermedius and right lower lobe bronchi with additional mucus plugging within the segmental bronchial branches of the left lower lobe. Bibasilar patchy ground-glass and consolidative opacities have mildly improved from 12/25/2018 and may be suggestive of aspiration pneumonia. Cardiomegaly and calcified pleural plaques within the right hemithorax and emphysema. Chest CT reviewed from 05/07/2018 showed some scattered bronchiectasis with improved bibasilar interstitial changes. Video swallow from 08/20/2018 showed no obvious aspiration. Currently, white count 10,400, H and H 10.5 and 32.2. White count on admission from 12/21/2018 was 9000, H and H 13.6 and 39.2. PT/INR pending from this morning, BUN 59, creatinine 2.0, glucose levels have been in the high 300, IgE level 425, IgG adequate. OVERALL ASSESSMENT AND PLAN: An 78-year-old white male with moderately severe chronic obstructive pulmonary disease/tracheomalacia with endoscopic dynamic airway collapse/asbestosis/a degree of chronic bronchiectasis and possible occupational lung disease, readmitted within 48-72 hours with pneumonitis and hemoptysis that would have to be considered hospital acquired at this point in time . Certainly one has to worry about acute and chronic aspiration and that was our concern several months ago, but an outpatient video swallow was negative for aspiration. The patient has always had these chronic symptoms and a sensation in his throat and upper chest area of fullness and persistent respiratory symptoms and for those reasons he underwent bronchoscopic evaluation in the spring. He may benefit from noninvasive positive pressure ventilation in the form of either BiPAP or a Trilogy unit at night given his degree of tracheomalacia and would consider coverage for hospital-acquired organisms at this point in time. In addition, he must be taken off his anticoagulant therapy indefinitely at this point in time because of the significant hemoptysis noted. We will follow along with you. Thank you very much for this consultation. ALBERT
[2018-12-27] MEDS ORDERED: INSULIN HUMAN REGULAR PER UNIT 5 UNITS in SYRINGE 4.95 ML IV ONE (15:15)
[2018-12-27] MEDS: DIGOXIN 0.125 MG TAB PO SCH (15:45)
[2018-12-27] MEDS ORDERED: WARFARIN SOD 2.5 MG TAB PO SCH (16:00)
[2018-12-27] MEDS: PIPERACILLIN/TAZOBACTAM 3.375 GM in DEXTROSE 5% 100 ML IV SCH (19:42)
[2018-12-27] MEDS: TAMSULOSIN HCL 0.4 MG CAP PO SCH (20:49)
[2018-12-27] MEDS: SIMVASTATIN 20 MG TAB PO SCH (20:50)
[2018-12-28] MEDS: INSULIN ASPART 100 UNITS/ML 3 ML PEN SC SCH ×6 (00:39→22:14)
[2018-12-28] MEDS: PIPERACILLIN/TAZOBACTAM 3.375 GM in DEXTROSE 5% 100 ML IV SCH ×3 (02:19→17:09)
[2018-12-28] MEDS: ALBUT/IPRATROP 3MG/0.5MG NEB 3 ML VIAL NEB SCH ×4 (07:02→18:42)
[2018-12-28 07:08] LABS: INR 1.6 (0.9-1.1); Prothrombin Time 15.5 Seconds (9.0-12.0)
[2018-12-28 07:30] LABS: BUN Creatinine Ratio 28.7 (10-20); Calcium 8.8 mg/dl (8.5-10.1); Creatinine Clr Calc Pharmacy 41.4 ml/min; Est GFR (African American) 46.1; Est GFR (Non-African American) 39.8; Potassium 4.3 mmol/L (3.5-5.1)
[2018-12-28] MEDS: FLUTICASONE/SALMETEROL 100/50 (ADVAIR) 14 PUFF/1 INHALER INH SCH ×2 (08:51→22:06)
[2018-12-28] MEDS: FLUTICASONE PROPIONATE NA SPR 16 GM BTL SCH (08:54)
[2018-12-28] MEDS: ASPIRIN 81 MG ECTAB PO SCH (08:54)
[2018-12-28] MEDS: INSULIN GLARGINE SOLOSTAR 100 UNITS/ML 3 ML PEN SC SCH (08:55)
[2018-12-28] MEDS: guaiFENesin 600 MG TABCR PO SCH ×2 (08:55→22:06)
[2018-12-28] MEDS: predniSONE 20 MG TAB PO SCH (08:56)
[2018-12-28] MEDS: METOPROLOL TARTRATE 50 MG TAB PO SCH ×2 (08:56→22:06)
--- NOTE | 2018-12-28 09:16 | XRay Report ---
XR chest 2V routine CLINICAL HISTORY: 78 years-old Male presenting with pneumonia. TECHNIQUE: PA and lateral views of the chest were obtained. COMPARISON: 12/27/2018. FINDINGS: Left subclavian pacer with leads in the right atrium and right ventricular apex. Atherosclerosis of t he aortic arch. Cardiac silhouette moderately enlarged. No significant pulmonary vascular prominence. Lungs are mildly hyperinflated. Bibasilar bandlike and irregular opacities slightly decreased from p rior. No pleural effusion or pneumothorax. A suture margin is noted at the right apex. Osteopenia may be present. Upper abdomen normal. IMPRESSION: 1. Decreasing bibasilar infiltrates. 2. Cardiomegaly without evidence of volume overload. 3. Underlying emphysema suspected. Electronically signed by: Jono De Leon M.D. 12/28/2018 9:15 AM
--- NOTE | 2018-12-28 10:05 | Pulmonology Progress Note ---
Date of Service December 28, 2018 78-year-old white male with COPD/asbestos/interstitial versus occupational lung disease and a degree of chronic bronchiectasis also has significant tracheomalacia. He was admitted with hemoptysis and has been taken off is anticoagulant therapy(which he required for chronic atrial fibrillation). Sputum which has been purulent has grown out Achromobacter xylosoxidans/denitrif. He was started on noninvasive positive-pressure ventilation last night which she tolerated well with O2 supplementation and feels quite well this morning. Chest x-ray shows improvement in bibasilar infiltrates. Assessment & Plan (1) Pneumonia: 78-year-old with complex medical history presents with hemoptysis worsening respiratory status and presumptive hospital-acquired pneumonitis. Sputum has grown out Achromobacter xylosoxidans and given the degree of tracheobronchial malacia. Will tailor antibiotics pending sensitivity and continue noninvasive positive-pressure ventilation nocturnally as I believe this will help him in the long run. Will decrease steroids slowly. Patient needs to be mobilized as well. 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: Physical Exam Respiratory: normal respiratory effort and + hyperresonance to percussion Auscultation: + rales (Both bases right greater than left), + rhonchi and + wheezes Results & Data Vital Signs (Past 12 Hours) Vital Signs Temp Pulse Pulse Resp BP BP Pulse Ox 12/28/18 07:39 36.5 C 88 19 154/86 H 98 12/28/18 07:05 74 18 98 12/28/18 05:34 64 16 97 12/28/18 03:55 36.8 C 75 18 104/70 96 12/28/18 01:15 80 18 96 12/27/18 23:01 36.5 C 93 H 20 153/69 H 97 PG Care Time/CCT Total # of Minutes Spent Total Time Spent with Patient: Total time spent is greater than 50% in coordination of care (as documented) at patient's floor/unit and/or counseling patient:
--- NOTE | 2018-12-28 10:23 | Hospitalist Progress Note ---
Date of Service December 28, 2018 Assessment & Plan (1) Acute and chronic respiratory failure: This is an 78yo M with a PMH of DM I, tachybradycardia syndrome s/p pacemaker placement, COPD, paroxysmal atrial fibrillation on Coumadin, nocturnal hypoxia on 2 L nasal cannula at bedtime, HLD and other medical problems listed below who presents with progressive shortness of breath x 3 days and was found to have acute on chronic respiratory failure in the setting of known community acquired pneumonia, COPD exacerbation, volume overload and atrial fibrillation with RVR. -In setting of pneumonia- possibly healthcare associated, COPD exacerbation, volume overload (2) Pneumonia: CT chest: 1. Tracheomalacia with large amount of secretions/mucous plugging about the bronchus intermedius and right lower lobe bronchi with additional mucous plugging within the segmental bronchial branches of the left lower lobe. 2. Bibasilar patchy groundglass and consolidative opacities appear to have mildly improved from 12/25/2018 chest radiograph and are suggestive of aspiration pneumonitis versus bibasilar pneumonia. 3. Small hiatal hernia. 4. Cardiomegaly without overt pulmonary edema. 5. Emphysema. 6. Calcified pleural plaques of the right hemithorax redemonstrated. sputum culture: pending blood cultures: pending nasal MRSA negative on Zosyn IV continue Nebs continue Prednisone continue Bipap at night Pulmonary consulted- appreciate Dr. Johansen's recommendations (3) COPD exacerbation: History of COPD, Tracheomalacia, Bronchiectasis History of obstructive lung disease as well as known exposures to biofuels and asbestos, 80 pack year smoking history -Evaluated by pulm service earlier this year for COPD exacerbation and chronic mucopurulent bronchitis -Underwent PFTs with Dr. Johansen in May 2018 with evidence of a moderate obstructive ventilatory defect even more pronounced at low lung volumes. Lung volumes were well within normal limits. Diffusion capacity was moderately reduced management as noted above (4) Acute on chronic diastolic heart failure: Presented with acute shortness of breath and the chest x-ray did show pulmonary edema Likely secondary to acute on chronic diastolic heart failure complicated by rapid heart rate due to atrial fibrillation and complicated by valvular heart disease as mentioned below Echo showed-rhythm is atrial fibrillation, EF 55 to 60%, no regional wall motion abnormalities, mild to moderate mitral regurgitation, moderate tricuspid regurgitation, estimated systolic pulmonary artery pressure discontinued of mercury received IV Lasix Digoxin increased to daily crea improved to 1.6 HOLD Lasix today, resume tomorrow monitor Billing Auditor consulted- appreciate Dr. Styles's recommendations (5) Atrial fibrillation with RVR: HR increased from 114 to 130s in the setting of PNA, volume overload, incorrect Lopressor dose for the past few days - Digoxin increased to daily - Heart rate is controlled Billing Auditor consulted INR 1.6 hemoptysis resolved HOLD coumadin for now per Pulm SVC monitor INR (6) Volume overload: management as noted above (7) Diabetes type I: A1c of 9.5 earlier in November monitor (8) CKD (chronic kidney disease) stage 3, GFR 30-59 ml/min: creatinine trending up, from 1.5 --> 2.00 now 1.6 HOLD Lasix monitor creatinine (9) Tachycardia-bradycardia syndrome: S/p pacemaker placement DVT Ppx: SCDs only in light of hemoptysis Code status: DNR per discussion with patient PCP: Mell Dispo: pending PT and OT evaluation Subjective ff up for pneumonia, COPD, A fib seen resting in bed, sitting up, comfortable states he feels improved compared to yesterday less dyspnea, and cough no hemoptysis since yesterday denies chest pain, palpitations, dizziness no other symptoms Review of Systems Review of Systems: All systems reviewed & are unremarkable except as noted in HPI & below Physical Exam Physical Exam: General- oriented x 3, not in distress, speaks in sentences with no effort or accessory muscle use Eyes- anicteric Neck- no JVD Lungs- mild crackles at the bases no wheezing Heart- normal rate,irreg irregular rhythm; no murmurs Abdomen- normal bowel sounds, nondistended, soft, nontender Extremities- no pretibial edema, no calf tenderness Neuro- alert, oriented x 3; no gross focal neurologic deficits Skin- warm & dry Results & Data Vital Signs (Past 12 Hours) Vital Signs Temp Pulse Pulse Resp BP BP Pulse Ox 12/28/18 07:39 36.5 C 88 19 154/86 H 98 12/28/18 07:05 74 18 98 12/28/18 05:34 64 16 97 12/28/18 03:55 36.8 C 75 18 104/70 96 12/28/18 01:15 80 18 96 12/27/18 23:01 36.5 C 93 H 20 153/69 H 97 (1) Acute and chronic respiratory failure Respiratory failure complication: hypoxia Qualified Code(s): J96.21 - Acute and chronic respiratory failure with hypoxia
[2018-12-28] MEDS: INSULIN HUMAN NPH SC SCH (10:48)
--- NOTE | 2018-12-28 10:59 | Cardiology Progress Note ---
Date of Service December 28, 2018 Assessment & Plan (1) Atrial fibrillation with RVR: Rates improved with treatment of underlying pulmonary issues will make no changes (2) Acute and chronic respiratory failure: Clinically improved no signs of volume overload or congestive failure on exam (3) Community acquired pneumonia, bilateral: (4) Hemoptysis: Likely due to supratherapeutic INR. Anticoagulation warranted when stable from pulmonary standpoint (5) COPD exacerbation: (6) Interstitial lung disease: (7) Chronic diastolic heart failure: (8) Supratherapeutic INR: Subjective Patient seen and examined, chart, medications, telemetry reviewed. Patient feels better today less dyspnea. Cough is resolved. No further hemoptysis. No dizziness or lightheadedness. Physical Exam Constitutional: WD/WN, vitals as above Eyes: PERRL, conjunctivae normal, anicteric sclerae Neck: trachea midline, no thyromegaly Respiratory: Diffusely diminished breath sounds with minimal wheezes on forced cough otherwise clear Cardiovascular: Rate/Rhythm: + irregularly irregular Heart Sounds: normal S1 and normal S2; no gallop and no cardiac rub Vessels: no JVD Extremities: + edema (Trivial pedal) Gastrointestinal (Abdomen): normal bowel sounds, soft, nontender, no hepatosplenomegaly Musculoskeletal: no cyanosis or clubbing, extremities motor strength 5/5 Results & Data Vital Signs (Past 12 Hours) Vital Signs Temp Pulse Pulse Resp BP BP Pulse Ox 12/28/18 07:39 36.5 C 88 19 154/86 H 98 12/28/18 07:05 74 18 98 12/28/18 05:34 64 16 97 12/28/18 03:55 36.8 C 75 18 104/70 96 12/28/18 01:15 80 18 96 12/27/18 23:01 36.5 C 93 H 20 153/69 H 97 Laboratory Results Laboratory Results - last 24 hr 12/27/18 12/27/18 12/27/18 11:11 11:16 11:17 PT 40.1 H INR 4.3 H Sodium Potassium Chloride Carbon Dioxide Anion Gap BUN Creatinine Est Cr Clr Drug Dosing Est GFR ( Amer) Est GFR (Non-Af Amer) BUN/Creatinine Ratio Glucose POC Glucose 358 H* 370 H* Calcium Urine Color Urine Appearance Urine pH Ur Specific [place] Urine Protein Urine Glucose (UA) Urine Ketones Urine Blood Urine Nitrite Urine Bilirubin Urine Urobilinogen Ur Leukocyte Esterase Nasal Screen MRSA (PCR) 12/27/18 12/27/18 12/27/18 12:50 14:45 16:16 PT INR Sodium Potassium Chloride Carbon Dioxide Anion Gap BUN Creatinine Est Cr Clr Drug Dosing Est GFR ( Amer) Est GFR (Non-Af Amer) BUN/Creatinine Ratio Glucose POC Glucose 397 H* 292 H Calcium Urine Color Yellow Urine Appearance Clear Urine pH 5.0 Ur Specific [place] 1.023 Urine Protein Negative Urine Glucose (UA) 3+ H Urine Ketones Negative Urine Blood Negative Urine Nitrite Negative Urine Bilirubin Negative Urine Urobilinogen Negative Ur Leukocyte Esterase Negative Nasal Screen MRSA (PCR) 12/27/18 12/27/18 12/28/18 20:24 20:57 00:31 PT INR Sodium Potassium Chloride Carbon Dioxide Anion Gap BUN Creatinine Est Cr Clr Drug Dosing Est GFR ( Amer) Est GFR (Non-Af Amer) BUN/Creatinine Ratio Glucose POC Glucose 173 H 199 H Calcium Urine Color Urine Appearance Urine pH Ur Specific [place] Urine Protein Urine Glucose (UA) Urine Ketones Urine Blood Urine Nitrite Urine Bilirubin Urine Urobilinogen Ur Leukocyte Esterase Nasal Screen MRSA (PCR) Negative 12/28/18 12/28/18 12/28/18 04:37 06:44 06:44 PT 15.5 H INR 1.6 H Sodium 141 Potassium 4.3 Chloride 105 Carbon Dioxide 32 Anion Gap 4.0 BUN 46 H Creatinine 1.61 H D Est Cr Clr Drug Dosing 41.4 Est GFR ( Amer) 46.1 Est GFR (Non-Af Amer) 39.8 BUN/Creatinine Ratio 28.7 H Glucose 75 POC Glucose 104 H Calcium 8.8 Urine Color Urine Appearance Urine pH Ur Specific [place] Urine Protein Urine Glucose (UA) Urine Ketones Urine Blood Urine Nitrite Urine Bilirubin Urine Urobilinogen Ur Leukocyte Esterase Nasal Screen MRSA (PCR) 12/28/18 12/28/18 07:25 07:26 PT INR Sodium Potassium Chloride Carbon Dioxide Anion Gap BUN Creatinine Est Cr Clr Drug Dosing Est GFR ( Amer) Est GFR (Non-Af Amer) BUN/Creatinine Ratio Glucose POC Glucose 65 L* 71 Calcium Urine Color Urine Appearance Urine pH Ur Specific [place] Urine Protein Urine Glucose (UA) Urine Ketones Urine Blood Urine Nitrite Urine Bilirubin Urine Urobilinogen Ur Leukocyte Esterase Nasal Screen MRSA (PCR) Diagnostic Findings XR chest 2V routine 12/28/2018 CLINICAL HISTORY: 78 years-old Male presenting with pneumonia. TECHNIQUE: PA and lateral views of the chest were obtained. COMPARISON: 12/27/2018. FINDINGS: Left subclavian pacer with leads in the right atrium and right ventricular apex. Atherosclerosis of the aortic arch. Cardiac silhouette moderately enlarged. No significant pulmonary vascular prominence. Lungs are mildly hyperinflated. Bibasilar bandlike and irregular opacities slightly decreased from prior. No pleural effusion or pneumothorax. A suture margin is noted at the right apex. Osteopenia may be present. Upper abdomen normal. IMPRESSION: 1. Decreasing bibasilar infiltrates. 2. Cardiomegaly without evidence of volume overload. 3. Underlying emphysema suspected. (1) Acute and chronic respiratory failure Respiratory failure complication: hypoxia Qualified Code(s): J96.21 - Acute and chronic respiratory failure with hypoxia
--- NOTE | 2018-12-28 14:05 | Pharmacy Report ---
Pharmacy Glycemic Short Note 2 - Date of Service December 28, 2018 - Glycemic Short BSG Results (Last 24 hours): 12/27/18 12/27/18 12/27/18 14:45 16:16 20:24 Glucose POC Glucose 397 H* 292 H 173 H 12/28/18 12/28/18 12/28/18 00:31 04:37 06:44 Glucose 75 POC Glucose 199 H 104 H 12/28/18 12/28/18 12/28/18 07:25 07:26 11:25 Glucose POC Glucose 65 L* 71 192 H OUTPATIENT ANTIDIABETIC REGIMEN: * Lantus 22 units SQ AM * Aspart sliding scale with meals ASSESSMENT: 12/28: * Mr. Plata received 87 units of insulin yesterday (52 units of basal and 57 units of bolus insulin). * Significant improvement in glycemic control noted over the past 12 hours. He remains on prednisone 40 mg po daily. * Continue once daily NPH and tight novolog parameters to combat steroid induced hyperglycemia. * Will slightly decrease Lantus dose since fasting BSG was below inpatient goal (71 mg/dL). 12/27: * 78yo Type 1 diabetic male with near adequate outpatient glycemic control per recent A1c. Goal A1c likely 8-9% based on age/co-morbidities. * Pt with hyperglycemia secondary to steroids and pulmonary infection. Solu medrol IV changed to Prednisone 40mg PO daily on 12/26 with plans to continue x 5 days. * Pt was given an increased dose of Lantus yesterday (40 units in the AM). Lantus was changed back to home dose of 22 units daily starting today and weight-based NPH was added to counteract the hyperglycemic effect of prednisone. NPH should be dosed at the same time that prednisone is given. * Lunch BSG significantly elevated (358). I suspected this was due to incorrect carb coverage with breakfast (pt was given 2 units and should have received 7 units), however a repeat BSG @ 1430 was also high (397). I have ordered an IV insulin bolus and will add overnight checks. I am hesitant to make additional changes at this time per has already been given 12 additional units of basal insulin compared to yesterday. PLAN FOR INPATIENT GLYCEMIC CONTROL: * Basal insulin - Decrease * Lantus to 20 units SQ daily * NPH 30 units SQ daily given with prednisone (0.4 units/kg) * Bolus insulin * NovoLog per scale ACHS or Q6hrs while NPO * Goal Range: Low 120 mg/dL - High 160 mg/dL * Correction Factor: 20 mg/dL/unit * Nutritional / Prandial insulin per carb ratio of 1 unit per 6 grams CHO consumed * Please note that the plan above was derived based on current level of insulin resistance and hospital stress. These recommendations are appropriate for inpatient admission only. Plan of care upon discharge will need to be reassessed to avoid potential outpatient hypo/hyperglycemia. Thank you.
[2018-12-28] MEDS: DIGOXIN 0.125 MG TAB PO SCH (17:01)
[2018-12-28] MEDS: ALUMINUM/MAGNESIUM SUSP 30 ML UDC PO PRN (20:43)
[2018-12-28] MEDS: TAMSULOSIN HCL 0.4 MG CAP PO SCH (22:05)
[2018-12-28] MEDS: SIMVASTATIN 20 MG TAB PO SCH (22:07)
[2018-12-29] MEDS: PIPERACILLIN/TAZOBACTAM 3.375 GM in DEXTROSE 5% 100 ML IV SCH ×3 (02:37→18:06)
[2018-12-29] MEDS: CARBOHYDRATES FOR HYPOGLYCEMIA PO PRN ×4 (02:50→11:45)
[2018-12-29 06:13] LABS: INR 1.3 (0.9-1.1); Prothrombin Time 12.8 Seconds (9.0-12.0)
[2018-12-29 06:34] LABS: BUN Creatinine Ratio 23.4 (10-20); Calcium 8.7 mg/dl (8.5-10.1); Creatinine Clr Calc Pharmacy 41.8 ml/min; Est GFR (African American) 46.5; Est GFR (Non-African American) 40.1; Potassium 4.3 mmol/L (3.5-5.1)
[2018-12-29] MEDS: ALBUT/IPRATROP 3MG/0.5MG NEB 3 ML VIAL NEB SCH ×4 (06:54→19:25)
[2018-12-29] MEDS: predniSONE 20 MG TAB PO SCH (08:30)
[2018-12-29] MEDS: FLUTICASONE/SALMETEROL 100/50 (ADVAIR) 14 PUFF/1 INHALER INH SCH ×2 (08:30→20:58)
[2018-12-29] MEDS: METOPROLOL TARTRATE 50 MG TAB PO SCH ×2 (08:31→20:59)
[2018-12-29] MEDS: guaiFENesin 600 MG TABCR PO SCH ×2 (08:31→20:59)
[2018-12-29] MEDS: ASPIRIN 81 MG ECTAB PO SCH (08:31)
[2018-12-29] MEDS: FLUTICASONE PROPIONATE NA SPR 16 GM BTL SCH (08:32)
[2018-12-29] MEDS: INSULIN ASPART 100 UNITS/ML 3 ML PEN SC SCH ×5 (08:34→21:28)
[2018-12-29] MEDS: INSULIN HUMAN NPH SC SCH (08:40)
[2018-12-29] MEDS ORDERED: INSULIN GLARGINE SOLOSTAR 100 UNITS/ML 3 ML PEN SC SCH ×2 (09:00→10:00)
--- NOTE | 2018-12-29 09:34 | Cardiology Progress Note ---
Date of Service December 29, 2018 Assessment & Plan (1) Atrial fibrillation with RVR: Rates improved with treatment of underlying pulmonary issues will make no changes (2) Acute and chronic respiratory failure: Clinically improved no signs of volume overload or congestive failure on exam Diuretics held initially will resume single dose of IV furosemide followed by resuming usual oral dosing (3) Community acquired pneumonia, bilateral: (4) Hemoptysis: Likely due to supratherapeutic INR. Anticoagulation warranted when stable from pulmonary standpoint (5) COPD exacerbation: (6) Interstitial lung disease: (7) Chronic diastolic heart failure: (8) Supratherapeutic INR: Plan/Recommendations: As above resume furosemide continue treatment of underlying pulmonary issues Subjective Patient seen and examined, chart, medications, telemetry reviewed. Patient notes "rough night last night more cough and wheezing no chest pain or discomfort mild worsening of previous pedal edema Renal function is stable. Physical Exam Constitutional: WD/WN, vitals as above Eyes: PERRL, conjunctivae normal, anicteric sclerae Neck: trachea midline, no thyromegaly Respiratory: Diffuse wheezes and rhonchi present Cardiovascular: Rate/Rhythm: + irregularly irregular Heart Sounds: normal S1 and normal S2; no gallop and no cardiac rub Vessels: no JVD Extremities: + edema (1+ pedal edema) Gastrointestinal (Abdomen): normal bowel sounds, soft, nontender, no hepatosplenomegaly Musculoskeletal: no cyanosis or clubbing, extremities motor strength 5/5 Results & Data Vital Signs (Past 12 Hours) Vital Signs Temp Pulse Pulse Resp BP BP Pulse Ox 12/29/18 07:20 36.7 C 79 18 151/89 H 95 12/29/18 06:56 73 18 96 12/29/18 02:58 36.7 C 90 20 169/101 H 91 12/29/18 00:17 36.4 C L 91 H 20 118/66 94 12/28/18 23:20 74 18 95 Laboratory Results Laboratory Results - last 24 hr 12/28/18 12/28/18 12/28/18 11:25 16:20 20:06 PT INR Sodium Potassium Chloride Carbon Dioxide Anion Gap BUN Creatinine Est Cr Clr Drug Dosing Est GFR ( Amer) Est GFR (Non-Af Amer) BUN/Creatinine Ratio Glucose POC Glucose 192 H 207 H 302 H* Calcium 12/29/18 12/29/1819 02:46 02:47 03:07 PT INR Sodium Potassium Chloride Carbon Dioxide Anion Gap BUN Creatinine Est Cr Clr Drug Dosing Est GFR ( Amer) Est GFR (Non-Af Amer) BUN/Creatinine Ratio Glucose POC Glucose 46 L* 44 L* 45 L* Calcium 12/29/18 12/29/18 12/29/18 03:28 05:44 05:44 PT 12.8 H INR 1.3 H Sodium 139 Potassium 4.3 Chloride 104 Carbon Dioxide 30 Anion Gap 5.0 BUN 37 H Creatinine 1.60 H Est Cr Clr Drug Dosing 41.8 Est GFR ( Amer) 46.5 Est GFR (Non-Af Amer) 40.1 BUN/Creatinine Ratio 23.4 H Glucose 173 H POC Glucose 101 H Calcium 8.7 12/29/18 07:10 PT INR Sodium Potassium Chloride Carbon Dioxide Anion Gap BUN Creatinine Est Cr Clr Drug Dosing Est GFR ( Amer) Est GFR (Non-Af Amer) BUN/Creatinine Ratio Glucose POC Glucose 112 H Calcium (1) Acute and chronic respiratory failure Respiratory failure complication: hypoxia Qualified Code(s): J96.21 - Acute and chronic respiratory failure with hypoxia
[2018-12-29] MEDS ORDERED: FUROSEMIDE 20 MG in SYRINGE 0 ML IV ONE (10:00)
--- NOTE | 2018-12-29 11:24 | Pulmonology Progress Note ---
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 Will continue aggressive management and add percussion therapy and a flutter valve. It may require patient undergo fiberoptic bronchoscopy with BAL if the above mentioned measures are not effective. (3) Hemoptysis: (4) Supratherapeutic INR: (5) Chronic diastolic heart failure: (6) Interstitial lung disease: (7) Status post placement of cardiac pacemaker: (8) Acute and chronic respiratory failure: Respiratory failure complication: hypoxia Qualified Code(s): J96.21 - Acute and chronic respiratory failure with hypoxia (9) Bronchiectasis: (10) Atrial fibrillation with RVR: (11) CKD (chronic kidney disease) stage 3, GFR 30-59 ml/min: (12) Asbestos exposure: Subjective 78-year-old white male with significant COPD, asbestosis, interstitial /occupational lung disease/mild chronic bronchiectasis along with tracheomalacia. He had a very poor night complaining of significant congestion without hemoptysis. Unable to tolerate his noninvasive positive-pressure ventilation and slept poorly. He feels dyspneic this morning and is unable to expectorate and a significant quantities of phlegm at this juncture. Anticoagulation has been held but warranted when stable from a pulmonary standpoint. No further hemoptysis. Review of Systems Constitutional: no problem reported Eyes: no problem reported Ear, Nose, Mouth, Throat: no problem reported Respiratory: no problem reported Cardiovascular: no problem reported Gastrointestinal: no problem reported Genitourinary: no problem reported Musculoskeletal: no problem reported Integumentary: no problem reported Neurologic: no problem reported Psychiatric: no problem reported Endocrine: no problem reported Hematologic / Lymphatic: no problem reported Allergy / Immunological: no problem reported Physical Exam Constitutional: well developed and well nourished; no acute distress Eyes: PERRL, conjunctivae normal, anicteric sclerae ENMT: external ear and nose normal, oropharynx normal Neck: trachea midline, no thyromegaly Respiratory: normal respiratory effort, + hyperresonance to percussion, + prolonged expiratory phase and + audible wheezes Auscultation: + rhonchi (Diffusely) and + wheezes (Diffusely) Cardiovascular: RRR, no murmur, no edema Palpation: normal PMI; no thrill Gastrointestinal (Abdomen): normal bowel sounds, soft, nontender, no hepatosplenomegaly Musculoskeletal: no cyanosis or clubbing, extremities motor strength 5/5 Gait: normal gait Skin: no rashes, warm and dry Neurologic: PERRL, EOMI, accommodation nl, no face palsy, no dysarthria Psychiatric: A+Ox3, euthymic affect Lymphatic: no cervical or axillary lymphadenopathy Results & Data Vital Signs (Past 12 Hours) Vital Signs Temp Pulse Pulse Resp BP BP Pulse Ox 12/29/18 11:17 74 18 95 12/29/18 11:11 36.7 C 85 18 139/90 95 12/29/18 08:30 79 12/29/18 07:20 36.7 C 79 18 151/89 H 95 12/29/18 06:56 73 18 96 12/29/18 02:58 36.7 C 90 20 169/101 H 91 12/29/18 00:17 36.4 C L 91 H 20 118/66 94 PG Care Time/CCT Total # of Minutes Spent Total Time Spent: 40 Total Time Spent with Patient: Total time spent is greater than 50% in coordination of care (as documented) at patient's floor/unit and/or counseling patient:
--- NOTE | 2018-12-29 12:27 | Pharmacy Report ---
Pharmacy Glycemic Short Note 2 - Date of Service December 29, 2018 - Glycemic Short BSG Results (Last 24 hours): 12/28/18 12/28/18 12/29/18 16:20 20:06 02:46 Glucose POC Glucose 207 H 302 H* 46 L* 12/29/18 12/29/18 12/29/18 02:47 03:07 03:28 Glucose POC Glucose 44 L* 45 L* 101 H 12/29/18 12/29/18 12/29/18 05:44 07:10 11:21 Glucose 173 H POC Glucose 112 H 68 L* 12/29/18 12/29/18 12/29/18 11:22 11:41 11:41 Glucose POC Glucose 65 L* 58 L* 56 L* 12/29/18 12:02 Glucose POC Glucose 93 OUTPATIENT ANTIDIABETIC REGIMEN: * Lantus 22 units SQ AM * Aspart sliding scale with meals ASSESSMENT: 12/29 * Mr. Plata's glycemic control significantly improved yesterday with the exception of HS BSG, which was likely elevated due to prednisone. * He received 83 units of insulin yesterday (52 units of basal and 53 units of bolus). He remains on weight based NPH for steroid induced hyperglycemia. * Fasting BSG was trending downward, therefore Lantus dose had been decreased from 22 to 20 units. I will further decrease due to severe hypoglycemia overnight (BSG 46 mg/dL). I suspect this low was due to basal insulin since BSG was 302 mg/dL at bedtime. * Pt was again hypoglycemic at lunchtime. He was asymptomatic per nursing. I instructed RN to hold lunch insulin and I have placed NPH on hold until further BSG data is available. I will loosen novolog parameters due to sustained hypo. 12/28: * Mr. Plata received 87 units of insulin yesterday (52 units of basal and 57 units of bolus insulin). * Significant improvement in glycemic control noted over the past 12 hours. He remains on prednisone 40 mg po daily. * Continue once daily NPH and tight novolog parameters to combat steroid induced hyperglycemia. * Will slightly decrease Lantus dose since fasting BSG was below inpatient goal (71 mg/dL). 12/27: * 78yo Type 1 diabetic male with near adequate outpatient glycemic control per recent A1c. Goal A1c likely 8-9% based on age/co-morbidities. * Pt with hyperglycemia secondary to steroids and pulmonary infection. Solu medrol IV changed to Prednisone 40mg PO daily on 12/26 with plans to continue x 5 days. * Pt was given an increased dose of Lantus yesterday (40 units in the AM). Lantus was changed back to home dose of 22 units daily starting today and weight-based NPH was added to counteract the hyperglycemic effect of pred nisone. NPH should be dosed at the same time that prednisone is given. * Lunch BSG significantly elevated (358). I suspected this was due to incorrect carb coverage with breakfast (pt was given 2 units and should have received 7 units), however a repeat BSG @ 1430 was also high (397). I have ordered an IV insulin bolus and will add overnight checks. I am hesitant to make additional changes at this time per has already been given 12 additional units of basal insulin compared to yesterday. PLAN FOR INPATIENT GLYCEMIC CONTROL: * Basal insulin - Decrease * Lantus to 18 units SQ daily (20% reduction from home dose) * NPH 30 units SQ daily to be given with prednisone - placed on hold after 12/29 dose was administered * Bolus insulin - loosen * NovoLog per scale ACHS or Q6hrs while NPO * Goal Range: Low 120 mg/dL - High 160 mg/dL Breakfast/lunch/dinner: * Correction Factor: 25 mg/dL/unit * Nutritional / Prandial insulin per carb ratio of 1 unit per 8 grams CHO consumed Bedtime: * Correction Factor: 30 mg/dL/unit * Nutritional / Prandial insulin per carb ratio of 1 unit per 11 grams CHO consumed * Please note that the plan above was derived based on current level of insulin resistance and hospital stress. These recommendations are appropriate for inpatient admission only. Plan of care upon discharge will need to be reassessed to avoid potential outpatient hypo/hyperglycemia.
[2018-12-29] MEDS: DIGOXIN 0.125 MG TAB PO SCH (16:25)
[2018-12-29] MEDS: ALUMINUM/MAGNESIUM SUSP 30 ML UDC PO PRN (16:42)
--- NOTE | 2018-12-29 19:31 | Hospitalist Progress Note ---
Date of Service December 29, 2018 Assessment & Plan (1) Acute and chronic respiratory failure: This is an 78yo M with a PMH of DM I, tachybradycardia syndrome s/p pacemaker placement, COPD, paroxysmal atrial fibrillation on Coumadin, nocturnal hypoxia on 2 L nasal cannula at bedtime, HLD and other medical problems listed below who presents with progressive shortness of breath x 3 days and was found to have acute on chronic respiratory failure in the setting of known community acquired pneumonia, COPD exacerbation, volume overload and atrial fibrillation with RVR. -In setting of pneumonia- possibly healthcare associated, COPD exacerbation, volume overload (2) Pneumonia: CT chest: 1. Tracheomalacia with large amount of secretions/mucous plugging about the bronchus intermedius and right lower lobe bronchi with additional mucous pluggin g within the segmental bronchial branches of the left lower lobe. 2. Bibasilar patchy groundglass and consolidative opacities appear to have mildly improved from 12/25/2018 chest radiograph and are suggestive of aspiration pneumonitis versus bibasilar pneumonia. 3. Small hiatal hernia. 4. Cardiomegaly without overt pulmonary edema. 5. Emphysema. 6. Calcified pleural plaques of the right hemithorax redemonstrated. sputum culture: negative blood cultures: negative nasal MRSA negative on Zosyn IV continue Nebs transitioned to Solumedrol continue Bipap at night Pulmonary consulted- appreciate Dr. Johansen's recommendations (3) COPD exacerbation: History of COPD, Tracheomalacia, Bronchiectasis History of obstructive lung disease as well as known exposures to biofuels and asbestos, 80 pack year smoking history -Evaluated by pulm service earlier this year for COPD exacerbation and chronic mucopurulent bronchitis -Underwent PFTs with Dr. Johansen in May 2018 with evidence of a moderate obstructive ventilatory defect even more pronounced at low lung volumes. Lung volumes were well within normal limits. Diffusion capacity was moderately reduced management as noted above (4) Acute on chronic diastolic heart failure: Presented with acute shortness of breath and the chest x-ray did show pulm onary edema Likely secondary to acute on chronic diastolic heart failure complicated by rapid heart rate due to atrial fibrillation and complicated by valvular heart disease as mentioned below Echo showed-rhythm is atrial fibrillation, EF 55 to 60%, no regional wall motion abnormalities, mild to moderate mitral regurgitation, moderate tricuspid regurgitation, estimated systolic pulmonary artery pressure discontinued of mercury received IV Lasix Digoxin increased to daily crea improved Lasix IV started today monitor Power Reactor Operator consulted- appreciate Dr. Styles's recommendations (5) Atrial fibrillation with RVR: HR increased from 114 to 130s in the setting of PNA, volume overload, incorrect Lopressor dose for the past few days - Digoxin increased to daily - Heart rate is controlled Power Reactor Operator consulted INR 1.3 hemoptysis resolved HOLD coumadin for now per Pulm SVC monitor INR (6) Volume overload: management as noted above (7) Diabetes type I: A1c of 9.5 earlier in November Pharmacy Glycemic Control Consult (8) CKD (chronic kidney disease) stage 3, GFR 30-59 ml/min: creatinine trending up, from 1.5 --> 2.00 now 1.6 monitor creatinine (9) Tachycardia-bradycardia syndrome: S/p pacemaker placement DVT Ppx: SCDs only in light of hemoptysis Code status: DNR per discussion with patient PCP: Mell Dispo: pending PT and OT evaluation Subjective ff up for pneumonia, COPD seen resting in bed, not in distress states he has increased dyspnea and cough today no hemoptysis, chest pain no other symptoms Review of Systems Review of Systems: All systems reviewed & are unremarkable except as noted in HPI & below Physical Exam Physical Exam: General- oriented x 3, not in distress, speaks in sentences with no effort or accessory muscle use Eyes- anicteric Neck- no JVD Lungs-(+) scattered mild wheeze, rhonchi Heart- normal rate, regular rhythm; no murmurs Abdomen- normal bowel sounds, nondistended, soft, nontender Extremities- no pretibial edema, no calf tenderness Neuro- alert, oriented x 3; no gross focal neurologic deficits Skin- warm & dry Results & Data Vital Signs (Past 12 Hours) Vital Signs Temp Pulse Pulse Resp BP BP Pulse Ox 12/29/18 19:18 36.7 C 97 H 19 154/84 H 93 12/29/18 16:25 93 H 12/29/18 16:00 101 H 12/29/18 15:30 36.8 C 98 H 18 135/81 91 12/29/18 15:01 82 18 96 12/29/18 11:17 74 18 95 12/29/18 11:11 36.7 C 85 18 139/90 95 12/29/18 08:30 79 Laboratory Results Laboratory Results - last 24 hr 12/28/18 12/29/18 12/29/18 20:06 02:46 02:47 PT INR Sodium Potassium Chloride Carbon Dioxide Anion Gap BUN Creatinine Est Cr Clr Drug Dosing Est GFR ( Amer) Est GFR (Non-Af Amer) BUN/Creatinine Ratio Glucose POC Glucose 302 H* 46 L* 44 L* Calcium 12/29/18 12/29/18 12/29/18 03:07 03:28 05:44 PT INR Sodium 139 Potassium 4.3 Chloride 104 Carbon Dioxide 30 Anion Gap 5.0 BUN 37 H Creatinine 1.60 H Est Cr Clr Drug Dosing 41.8 Est GFR ( Amer) 46.5 Est GFR (Non-Af Amer) 40.1 BUN/Creatinine Ratio 23.4 H Glucose 173 H POC Glucose 45 L* 101 H Calcium 8.7 12/29/18 12/29/18 12/29/18 05:44 07:10 11:21 PT 12.8 H INR 1.3 H Sodium Potassium Chloride Carbon Dioxide Anion Gap BUN Creatinine Est Cr Clr Drug Dosing Est GFR ( Amer) Est GFR (Non-Af Amer) BUN/Creatinine Ratio Glucose POC Glucose 112 H 68 L* Calcium 12/29/18 12/29/18 12/29/18 11:22 11:41 11:41 PT INR Sodium Potassium Chloride Carbon Dioxide Anion Gap BUN Creatinine Est Cr Clr Drug Dosing Est GFR ( Amer) Est GFR (Non-Af Amer) BUN/Creatinine Ratio Glucose POC Glucose 65 L* 58 L* 56 L* Calcium 12/29/18 12/29/18 12:02 16:10 PT INR Sodium Potassium Chloride Carbon Dioxide Anion Gap BUN Creatinine Est Cr Clr Drug Dosing Est GFR ( Amer) Est GFR (Non-Af Amer) BUN/Creatinine Ratio Glucose POC Glucose 93 243 H Calcium (1) Acute and chronic respiratory failure Respiratory failure complication: hypoxia Qualified Code(s): J96.21 - Acute and chronic respiratory failure with hypoxia
[2018-12-29] MEDS: TAMSULOSIN HCL 0.4 MG CAP PO SCH (21:00)
[2018-12-29] MEDS: methylPREDNISolone 60 MG in SYRINGE 0 ML IV SCH (21:00)
[2018-12-29] MEDS: SIMVASTATIN 20 MG TAB PO SCH (21:01)
[2018-12-29] MEDS: FUROSEMIDE 20 MG TAB PO SCH (21:01)
[2018-12-30] MEDS: INSULIN ASPART 100 UNITS/ML 3 ML PEN SC SCH ×7 (00:08→23:58)
[2018-12-30] MEDS: PIPERACILLIN/TAZOBACTAM 3.375 GM in DEXTROSE 5% 100 ML IV SCH ×3 (02:51→19:16)
[2018-12-30 07:01] LABS: INR 1.2 (0.9-1.1); Prothrombin Time 12.5 Seconds (9.0-12.0)
[2018-12-30] MEDS: ALBUT/IPRATROP 3MG/0.5MG NEB 3 ML VIAL NEB SCH ×4 (07:09→18:55)
[2018-12-30 08:02] LABS: Calcium 9.2 mg/dl (8.5-10.1); Creatinine Clr Calc Pharmacy 38.9 ml/min; Est GFR (African American) 42.6; Est GFR (Non-African American) 36.7
[2018-12-30] MEDS: methylPREDNISolone 60 MG in SYRINGE 0 ML IV SCH ×2 (08:31→21:52)
[2018-12-30] MEDS: FUROSEMIDE 20 MG TAB PO SCH ×2 (08:32→21:50)
[2018-12-30] MEDS: FLUTICASONE/SALMETEROL 100/50 (ADVAIR) 14 PUFF/1 INHALER INH SCH ×2 (08:32→21:49)
[2018-12-30] MEDS: FLUTICASONE PROPIONATE NA SPR 16 GM BTL SCH (08:32)
[2018-12-30] MEDS: METOPROLOL TARTRATE 50 MG TAB PO SCH ×2 (08:33→21:51)
[2018-12-30] MEDS: ASPIRIN 81 MG ECTAB PO SCH (08:33)
[2018-12-30] MEDS: guaiFENesin 600 MG TABCR PO SCH ×2 (08:33→21:49)
[2018-12-30] MEDS ORDERED: INSULIN GLARGINE SOLOSTAR 100 UNITS/ML 3 ML PEN SC SCH (10:15)
--- NOTE | 2018-12-30 10:43 | Cardiology Progress Note ---
Date of Service December 30, 2018 Assessment & Plan (1) Atrial fibrillation with RVR: Rates are well controlled. Continue metoprolol tartrate 50 mg twice daily. INR has been elevated in the setting of hemoptysis, and is now within normal limits, resume Coumadin when deemed appropriate from a hemoptysis standpoint. (2) Chronic diastolic heart failure: Fine status appears stable. Continue oral furosemide especially given the use of IV antibiotics and attempt to keep his intake and output at least even. (3) Pneumonia: Complex case as well delineated by the pulmonary medicine note yesterday. Continue methylprednisolone and Zosyn. Consider adding pharmacologic or mechanical DVT prophylaxis.Will differ to primary team. Subjective Chief complaint follow-up shortness of breath Subjective: Patient seen and examined. He states he still has a coarse cough and is bringing up blood occasionally, but is trending toward improvement. Telemetry reveals atrial fibrillation with occasional PVCs in the range of 80 bpm . Review of Systems Review of Systems: All systems reviewed & are unremarkable except as noted in HPI & below Physical Exam Physical Exam: Temp Pulse Resp BP Pulse Ox 36.5 C 85 20 121/85 96 12/30/18 06:54 12/30/18 08:30 12/30/18 07:10 12/30/18 06:54 12/30/18 07:10 Constitutional: + ill appearing (Chronically ill in appearance) Respiratory: Coarse breath sounds bilaterally the mid and basal lung raymond Cardiovascular: Rate/Rhythm: + irregularly irregular Heart Sounds: no murmur Vessels: no JVD Extremities: no edema Neurologic: PERRL, EOMI, accommodation nl, no face palsy, no dysarthria Results & Data Vital Signs (Past 12 Hours) Vital Signs Temp Pulse Pulse Resp BP Pulse Ox 12/30/18 08:30 85 12/30/18 07:10 89 20 96 12/30/18 06:54 36.5 C 86 19 121/85 96 12/30/18 03:58 36.3 C L 99 H 20 171/71 H 99 12/29/18 23:52 37.0 C 87 20 125/71 95 Laboratory Results Coagulation 12/30/18 Range/Units 06:25 PT 12.5 H (9.0-12.0) Seconds Comprehensive Metabolic Panel 12/30/18 Range/Units 06:25 Sodium 139 (136-145) mmol/L Potassium 5.0 D (3.5-5.1) mmol/L Chloride 103 (98-107) mmol/L Carbon Dioxide 32 (21-32) mmol/L BUN 38 H (7-18) mg/dl Creatinine 1.72 H (0.6-1.4) mg/dl Glucose 123 H (70-99) mg/dl Calcium 9.2 (8.5-10.1) mg/dl Intake and Output 12/29/18 12/30/18 12/30/18 22:59 06:59 14:59 Intake Total 1165 / 2095 415 / 2095 Output Total 475 / 2100 600 / 2100 Balance 690 / -5 -185 / -5 Intake: IV 115 / 345 115 / 345 Zosyn 3.375 gm In D5 100 ml @ 115 / 345 115 / 345 28.75 mls/hr IV Q8H [facility] Rx#: [id number] Oral 1050 / 1750 300 / 1750 Output: Urine 475 / 2100 600 / 2100 Other: Weight 91.4 kg
[2018-12-30] MEDS: ALUMINUM/MAGNESIUM SUSP 30 ML UDC PO PRN ×2 (10:51→16:06)
--- NOTE | 2018-12-30 11:59 | Progress Note ---
Date of Service December 30, 2018 Assessment & Plan (1) 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: Impression: 78-year-old male with advanced obstructive lung disease and history of tracheobronchial malacia admitted with mucous plugging and failure of outpatient treatment. He has a history of Achromobacter infection which is fairly highly resistant. He is currently receiving chest physiotherapy and on. Recommendations: 1. Abnormal CT scan: We will continue aggressive efforts at pulmonary toilet. We will add hypertonic saline to the patient's regimen to see if this offers him the clinical benefit. Continue percussive vest and percussive flutter valve. Will check chest x-ray in the morning. If it remains abnormal, consideration for bronchoscopy for therapeutic aspiration of secretions may be appropriate. 2. Exacerbation of bronchiectasis: We will try and wean steroids as tolerated. Day number 3 Zosyn, continue for now pending culture results. 3. COPD: Continue Advair regiment. Discussed with patient and at bedside. Questions were answered to the best my ability. (2) Hospital acquired PNA: (3) COPD exacerbation: (4) COPD (chronic obstructive pulmonary disease): Subjective Patient continues to report cough and productive phlegm. He feels about the same. He is expectorating significant amounts of phlegm currently. No fevers chills or night sweats. Review of Systems Review of Systems: Unchanged from prior Physical Exam Constitutional: WD/WN, vitals as above Neck: trachea midline, no thyromegaly Respiratory: Few coarse wheezes bilaterally with rhonchi at the bases. Cardiovascular: RRR, no murmur, no edema Gastrointestinal (Abdomen): normal bowel sounds, soft, nontender, no hepatosplenomegaly Skin: Multiple ecchymoses Results & Data Vital Signs (Past 12 Hours) Vital Signs Temp Pulse Pulse Resp BP Pulse Ox 12/30/18 10:52 68 20 96 12/30/18 08:30 85 12/30/18 07:10 89 20 96 12/30/18 06:54 36.5 C 86 19 121/85 96 12/30/18 03:58 36.3 C L 99 H 20 171/71 H 99 Laboratory Results 12/27/18 01:12 12/30/18 06:25 Microbiology 12/28/18 14:39 Sputum, Expectorated Gram Stain - Final 12/28/18 14:39 Sputum, Expectorated Sputum Culture - Preliminary Gram negative bacilli 12/25/18 15:56 Blood Aerobic Blood Culture - Preliminary No growth in Aerobic bottle after 48 hours. 12/25/18 15:56 Blood Anaerobic Blood Culture - Preliminary No growth in Anaerobic bottle after 48 hours. 12/25/18 15:56 Blood Aerobic Blood Culture - Preliminary No growth in Aerobic bottle after 48 hours. 12/25/18 15:56 Blood Anaerobic Blood Culture - Final Diagnostic Findings No new films PG Care Time/CCT Total # of Minutes Spent Total Time Spent with Patient: Total time spent is greater than 50% in coordination of care (as documented) at patient's floor/unit and/or counseling patient:
--- NOTE | 2018-12-30 16:04 | Pharmacy Report ---
Pharmacy Glycemic Short Note 2 - Date of Service December 30, 2018 - Glycemic Short BSG Results (Last 24 hours): 12/29/18 12/29/18 12/29/18 16:10 20:00 23:54 Glucose POC Glucose 243 H 230 H 151 H 12/30/18 12/30/18 12/30/18 03:57 06:25 07:21 Glucose 123 H POC Glucose 83 136 H 12/30/18 11:25 Glucose POC Glucose 294 H OUTPATIENT ANTIDIABETIC REGIMEN: * Lantus 22 units SQ AM * Aspart sliding scale with meals * HbA1c: 9.4% (12/22/18) ASSESSMENT: 12/30/18: * Steroids were changed last evening from Prednisone 40mg daily to SoluMedrol 60mg BID. * BSGs have been poorly controlled in the setting of high-dose steroids. * Patient's Lantus was increased this morning and Novolog parameters were tightened, however pre-lunch BSG was still significantly elevated. * Will continue to adjust regimen as needed while steroid doses are modified. 12/29 * Mr. Plata's glycemic control significantly improved yesterday with the exception of HS BSG, which was likely elevated due to prednisone. * He received 83 units of insulin yesterday (52 units of basal and 53 units of bolus). He remains on weight based NPH for steroid induced hyperglycemia. * Fasting BSG was trending downward, therefore Lantus dose had been decreased from 22 to 20 units. I will further decrease due to severe hypoglycemia overnight (BSG 46 mg/dL). I suspect this low was due to basal insulin since BSG was 302 mg/dL at bedtime. * Pt was again hypoglycemic at lunchtime. He was asymptomatic per nursing. I instructed RN to hold lunch insulin and I have placed NPH on hold until further BSG data is available. I will loosen novolog parameters due to sustained hypo. 12/27 * 78yo Type 1 diabetic male with near adequate outpatient glycemic control per recent A1c. Goal A1c likely 8-9% based on age/co-morbidities. * Pt with hyperglycemia secondary to steroids and pulmonary infection. Solu medrol IV changed to Prednisone 40mg PO daily on 12/26 with plans to continue x 5 days. * Pt was given an increased dose of Lantus yesterday (40 units in the AM). Lantus was changed back to home dose of 22 units daily starting today and weight-based NPH was added to counteract the hyperglycemic effect of predn isone. NPH should be dosed at the same time that prednisone is given. * Lunch BSG significantly elevated (358). I suspected this was due to incorrect carb coverage with breakfast (pt was given 2 units and should have received 7 units), however a repeat BSG @ 1430 was also high (397). I have ordered an IV insulin bolus and will add overnight checks. I am hesitant to make additional changes at this time per has already been given 12 additional units of basal insulin compared to yesterday. PLAN FOR INPATIENT GLYCEMIC CONTROL: * Basal insulin - * Lantus 25 units SQ qAM, plus supplemental dose (0-15 units) this evening based on BSG * Bolus insulin - * NovoLog per scale ACHS or Q6hrs while NPO * Goal Range: Low 120 mg/dL - High 160 mg/dL Breakfast/lunch/dinner: * Correction Factor: 20 mg/dL/unit * Nutritional / Prandial insulin per carb ratio of 1 unit per 6 grams CHO consumed Bedtime plus 0000, 0400: * Correction Factor: 30 mg/dL/unit * Nutritional / Prandial insulin per carb ratio of 1 unit per 11 grams CHO consumed * Please note that the plan above was derived based on current level of insulin resistance and hospital stress. These recommendations are appropriate for inpatient admission only. Plan of care upon discharge will need to be reassessed to avoid potential outpatient hypo/hyperglycemia.
[2018-12-30] MEDS: DIGOXIN 0.125 MG TAB PO SCH (16:07)
[2018-12-30] MEDS ORDERED: INSULIN GLARGINE SOLOSTAR 100 UNITS/ML 3 ML PEN SC ONE (16:30)
--- NOTE | 2018-12-30 16:40 | Hospitalist Progress Note ---
Date of Service December 30, 2018 Assessment & Plan (1) Acute and chronic respiratory failure: This is an 78yo M with a PMH of DM I, tachybradycardia syndrome s/p pacemaker placement, COPD, paroxysmal atrial fibrillation on Coumadin, nocturnal hypoxia on 2 L nasal cannula at bedtime, HLD and other medical problems listed below who presents with progressive shortness of breath x 3 days and was found to have acute on chronic respiratory failure in the setting of known community acquired pneumonia, COPD exacerbation, volume overload and atrial fibrillation with RVR. -In setting of pneumonia- possibly healthcare associated, COPD exacerbation, volume overload (2) Pneumonia: CT chest: 1. Tracheomalacia with large amount of secretions/mucous plugging about the bronchus intermedius and right lower lobe bronchi with additional mucous pluggin g within the segmental bronchial branches of the left lower lobe. 2. Bibasilar patchy groundglass and consolidative opacities appear to have mildly improved from 12/25/2018 chest radiograph and are suggestive of aspiration pneumonitis versus bibasilar pneumonia. 3. Small hiatal hernia. 4. Cardiomegaly without overt pulmonary edema. 5. Emphysema. 6. Calcified pleural plaques of the right hemithorax redemonstrated. sputum culture: negative blood cultures: negative nasal MRSA negative on Zosyn IV continue Nebs transitioned to Solumedrol continue Bipap at night Pulmonary consulted Continue vibrating vest Hypertonic saline ordered, Mucinex added Improvement consideration for bronchoscopy contemplated (3) COPD exacerbation: History of COPD, Tracheomalacia, Bronchiectasis History of obstructive lung disease as well as known exposures to biofuels and asbestos, 80 pack year smoking history -Evaluated by pulm service earlier this year for COPD exacerbation and chronic mucopurulent bronchitis -Underwent PFTs with Dr. Johansen in May 2018 with evidence of a moderate obstructive ventilatory defect even more pronounced at low lung volumes. Lung volumes were well within normal limits. Diffusion capacity was moderately reduced management as noted above (4) Acute on chronic diastolic heart failure: Presented with acute shortness of breath and the chest x-ray did show pulmonary edema Likely secondary to acute on chronic diastolic heart failure complicated by rapid heart rate due to atrial fibrillation and complicated by valvular heart disease as mentioned below Echo showed-rhythm is atrial fibrillation, EF 55 to 60%, no regional wall motion abnormalities, mild to moderate mitral regurgitation, moderate tricuspid regurgitation, estimated systolic pulmonary artery pressure discontinued of mercury received IV Lasix Digoxin increased to daily crea improved Usual p.o. Lasix resume monitor Manager Field Services consulted- appreciate Dr. Hernandez's recommendations (5) Atrial fibrillation with RVR: HR increased from 114 to 130s in the setting of PNA, volume overload, incorrect Lopressor dose for the past few days - Digoxin increased to daily - Heart rate is controlled Manager [employer] Services consulted INR 1.3 hemoptysis resolved HOLD coumadin for now per Pulm SVC monitor INR (6) Volume overload: management as noted above (7) Diabetes type I: A1c of 9.5 earlier in November Pharmacy Glycemic Control Consult (8) CKD (chronic kidney disease) stage 3, GFR 30-59 ml/min: creatinine trending up, from 1.5 --> 2.00 now 1.7 monitor creatinine (9) Tachycardia-bradycardia syndrome: S/p pacemaker placement DVT Ppx: SCDs only in light of hemoptysis Code status: DNR per discussion with patient PCP: Mell Dispo: pending PT and OT evaluation Subjective Follow-up for pneumonia Continue in bed, comfortable, not in distress States he continues to have cough productive of blood-tinged sputum On 2 L of nasal cannula, no dyspnea Denies chest pain, palpitations, dizziness No other symptoms Review of Systems Review of Systems: All systems reviewed & are unremarkable except as noted in HPI & below Physical Exam Physical Exam: General- oriented x 3, not in distress, speaks in sentences wit h no effort or accessory muscle use Eyes- anicteric Neck- no JVD Lungs-positive bilateral crackles, no wheezing, good air entry bilaterally Heart- normal rate, regular rhythm; no murmurs Abdomen- normal bowel sounds, nondistended, soft, nontender Extremities- no pretibial edema, no calf tenderness Neuro- alert, oriented x 3; no gross focal neurologic deficits Skin- warm & dry Results & Data Vital Signs (Past 12 Hours) Vital Signs Temp Pulse Pulse Resp BP BP Pulse Ox 12/30/18 16:07 88 12/30/18 15:47 36.8 C 91 H 18 126/78 90 12/30/18 15:23 93 H 16 95 12/30/18 11:39 36.7 C 92 H 24 142/87 H 94 12/30/18 10:52 68 20 96 12/30/18 08:30 85 12/30/18 07:10 89 20 96 12/30/18 06:54 36.5 C 86 19 121/85 96 (1) Acute and chronic respiratory failure Respiratory failure complication: hypoxia Qualified Code(s): J96.21 - Acute and chronic respiratory failure with hypoxia
[2018-12-30] MEDS: SODIUM CHLOR 7% 4 ML NEB INH SCH (18:55)
[2018-12-30] MEDS ORDERED: guaiFENesin 600 MG TABCR PO SCH (21:00)
[2018-12-30] MEDS: TAMSULOSIN HCL 0.4 MG CAP PO SCH (21:51)
[2018-12-30] MEDS: SIMVASTATIN 20 MG TAB PO SCH (21:52)
[2018-12-31] MEDS: PIPERACILLIN/TAZOBACTAM 3.375 GM in DEXTROSE 5% 100 ML IV SCH ×3 (03:54→17:38)
[2018-12-31] MEDS: INSULIN ASPART 100 UNITS/ML 3 ML PEN SC SCH ×5 (04:23→21:04)
[2018-12-31] MEDS: ALBUT/IPRATROP 3MG/0.5MG NEB 3 ML VIAL NEB SCH ×4 (06:55→19:41)
[2018-12-31] MEDS: SODIUM CHLOR 7% 4 ML NEB INH SCH ×2 (06:55→19:41)
[2018-12-31 07:47] LABS: BUN Creatinine Ratio 26.3 (10-20); Calcium 8.7 mg/dl (8.5-10.1); Est GFR (African American) 37.5; Est GFR (Non-African American) 32.4; Potassium 4.8 mmol/L (3.5-5.1)
--- NOTE | 2018-12-31 08:17 | XRay Report ---
TWO VIEW CHEST CLINICAL HISTORY: Pneumonia. FINDINGS: PA and lateral chest radiographs are compared to study dated 12/28/2018 and correlated with chest CT dated 12/27/2018. A 2-lead cardiac pacemaker is unchanged in position and partially obscures the left upper chest. The heart is enlarged noting atherosclerotic calcification of the thoracic aort a. The pulmonary vasculature is noncongested. Suture material projects over the right apex. Emphysema tous change and chronic interstitial thickening are similar to previous. Bibasilar airspace consolida tion is again noted. This appears increased on the lateral projection from 12/28/2018. No large pleura l effusion is identified. Calcified pleural plaques are again noted. There is no pneumothorax. The sk eletal structures are osteopenic. There are healed left-sided rib fractures. IMPRESSION: 1. Cardiomegaly and cardiac pacemaker. There is no radiographic evidence of congestive failure. 2. Emphysema. 3. There is bibasilar consolidation. This appears increased from 12/28/2018, especially on the lateral projection. Correlate clinically for evidence of pneumonia/aspiration pneumonitis. Electronically signed by: Arturo Charles M.D. 12/31/2018 8:16 AM
[2018-12-31] MEDS: FLUTICASONE PROPIONATE NA SPR 16 GM BTL SCH (08:31)
[2018-12-31] MEDS: FLUTICASONE/SALMETEROL 100/50 (ADVAIR) 14 PUFF/1 INHALER INH SCH ×2 (08:31→20:01)
[2018-12-31] MEDS: FUROSEMIDE 20 MG TAB PO SCH ×2 (08:31→20:03)
[2018-12-31] MEDS: methylPREDNISolone 60 MG in SYRINGE 0 ML IV SCH ×2 (08:32→20:01)
[2018-12-31] MEDS: INSULIN GLARGINE SOLOSTAR 100 UNITS/ML 3 ML PEN SC SCH (08:32)
[2018-12-31] MEDS: METOPROLOL TARTRATE 50 MG TAB PO SCH ×2 (08:32→20:03)
[2018-12-31] MEDS: ASPIRIN 81 MG ECTAB PO SCH (08:32)
[2018-12-31] MEDS: guaiFENesin 600 MG TABCR PO SCH ×2 (08:32→20:02)
--- NOTE | 2018-12-31 10:53 | Hospitalist Progress Note ---
Date of Service December 31, 2018 Assessment & Plan (1) Acute and chronic respiratory failure: This is an 78yo M with a PMH of DM I, tachybradycardia syndrome s/p pacemaker placement, COPD, paroxysmal atrial fibrillation on Coumadin, nocturnal hypoxia on 2 L nasal cannula at bedtime, HLD and other medical problems listed below who presents with progressive shortness of breath x 3 days and was found to have acute on chronic respiratory failure in the setting of known community acquired pneumonia, COPD exacerbation, volume overload and atrial fibrillation with RVR. -In setting of pneumonia- possibly healthcare associated, COPD exacerbation, volume overload (2) Pneumonia: CT chest: 1. Tracheomalacia with large amount of secretions/mucous plugging about the bronchus intermedius and right lower lobe bronchi with additional mucous pluggin g within the segmental bronchial branches of the left lower lobe. 2. Bibasilar patchy groundglass and consolidative opacities appear to have mildly improved from 12/25/2018 chest radiograph and are suggestive of aspiration pneumonitis versus bibasilar pneumonia. 3. Small hiatal hernia. 4. Cardiomegaly without overt pulmonary edema. 5. Emphysema. 6. Calcified pleural plaques of the right hemithorax redemonstrated. sputum culture: negative blood cultures: negative nasal MRSA negative on Zosyn IV, Nebs, Solumedrol Not tolerating Bipap at night Pulmonary consulted as patient was not improving, developed hemoptysis Vibration vest with hypertonic nebs, Mucinex, flutter valve Improving Steroid taper and antibiotic as per pulmonary service recommendations (3) COPD exacerbation: History of COPD, Tracheomalacia, Bronchiectasis History of obstructive lung disease as well as known exposures to biofuels and asbestos, 80 pack year smoking history -Evaluated by pulm service earlier this year for COPD exacerbation and chronic mucopurulent bronchitis -Underwent PFTs with Dr. Johansen in May 2018 with evidence of a moderate obstructive ventilatory defect even more pronounced at low lung volumes. Lung volumes were well within normal limits. Diffusion capacity was moderately reduced management as noted above (4) Acute on chronic diastolic heart failure: Presented with acute shortness of breath and the chest x-ray did show pulmonary edema Likely secondary to acute on chronic diastolic heart failure complicated by rapid heart rate due to atrial fibrillation and complicated by valvular heart disease as mentioned below Echo showed-rhythm is atrial fibrillation, EF 55 to 60%, no regional wall motion abnormalities, mild to moderate mitral regurgitation, moderate tricuspid regurgitation, estimated systolic pulmonary artery pressure discontinued of mercury received IV Lasix Digoxin increased to daily crea improved Usual p.o. Lasix resumed monitor Media Production Support Manager consulted-patient the recommendations (5) Atrial fibrillation with RVR: HR increased from 114 to 130s in the setting of PNA, volume overload, incorrect Lopressor dose for the past few days - Digoxin increased to daily - Heart rate is controlled Media Production Support Manager consulted INR 1.3 hemoptysis resolved HOLD coumadin for now per Pulm SVC for at least 1 to 2 weeks to allow for respiratory issues to resolve at which point in time it may be reinstituted monitor INR (6) Volume overload: management as noted above (7) Diabetes type I: A1c of 9.5 earlier in November Pharmacy Glycemic Control Consult (8) CKD (chronic kidney disease) stage 3, GFR 30-59 ml/min: creatinine trending up, from 1.5 --> 2.00 now 1.9 monitor creatinine (9) Tachycardia-bradycardia syndrome: S/p pacemaker placement DVT Ppx: SCDs only in light of hemoptysis Code status: DNR per discussion with patient PCP: Mell Dispo: pending PT and OT evaluation Subjective Follow-up for pneumonia, COPD exacerbation next Seen resting in bed side chair, comfortable, not in distress States he feels improved today compared to yesterday Breathing is better, less cough, no hemoptysis since last night Denies chest pain No other symptoms Review of Systems Review of Systems: All systems reviewed & are unremarkable except as noted in HPI & below Physical Exam Physical Exam: General- oriented x 3, not in distress, speaks in sentences with no effort or accessory muscle use Eyes- anicteric Neck- no JVD Lungs-scattered intermittent rhonchi at the bases, no wheezing, good air entry bilaterally Heart- normal rate, regular rhythm; no murmurs Abdomen- normal bowel sounds, nondistended, soft, nontender Extremities- no pretibial edema, no calf tenderness Neuro- alert, oriented x 3; no gross focal neurologic deficits Skin- warm & dry Results & Data Vital Signs (Past 12 Hours) Vital Signs Temp Pulse Resp BP BP Pulse Ox 12/31/18 08:01 37.1 C 92 H 16 118/80 91 12/31/18 06:59 84 18 96 12/31/18 04:12 36.8 C 84 22 131/75 96 12/30/18 23:41 36.9 C 100 H 19 133/73 90 (1) Acute and chronic respiratory failure Respiratory failure complication: hypoxia Qualified Code(s): J96.21 - Acute and chronic respiratory failure with hypoxia
--- NOTE | 2018-12-31 12:57 | Pharmacy Report ---
Pharmacy Glycemic Short Note 2 - Date of Service December 31, 2018 - Glycemic Short BSG Results (Last 24 hours): 12/30/18 12/30/18 12/30/18 16:06 21:13 23:51 Glucose POC Glucose 257 H 170 H 121 H 12/31/18 12/31/18 12/31/18 04:18 07:03 07:18 Glucose 120 H POC Glucose 96 120 H 12/31/18 11:19 Glucose POC Glucose 298 H OUTPATIENT ANTIDIABETIC REGIMEN: * Lantus 22 units SQ AM * Aspart sliding scale with meals * HbA1c: 9.4% (12/22/18) ASSESSMENT: 12/31/18: * Fasting this morning 120 within goal range- will continue current lantus with scale * Lunch BSG continues to be elevated- tighten novolog parameters, patient is continuing on solu-medrol 60 mg BID. 12/30/18: * Steroids were changed last evening from Prednisone 40mg daily to SoluMedrol 60mg BID. * BSGs have been poorly controlled in the setting of high-dose steroids. * Patient's Lantus was increased this morning and Novolog parameters were tightened, however pre-lunch BSG was still significantly elevated. * Will continue to adjust regimen as needed while steroid doses are modified. 12/29 * Mr. Plata's glycemic control significantly improved yesterday with the exception of HS BSG, which was likely elevated due to prednisone. * He received 83 units of insulin yesterday (52 units of basal and 53 units of bolus). He remains on weight based NPH for steroid induced hyperglycemia. * Fasting BSG was trending downward, therefore Lantus dose had been decreased from 22 to 20 units. I will further decrease due to severe hypoglycemia overnight (BSG 46 mg/dL). I suspect this low was due to basal insulin since BSG was 302 mg/dL at bedtime. * Pt was again hypoglycemic at lunchtime. He was asymptomatic per nursing. I instructed RN to hold lunch insulin and I have placed NPH on hold until further BSG data is available. I will loosen novolog parameters due to sustained hypo. 12/27 * 78yo Type 1 diabetic male with near adequate outpatient glycemic control per recent A1c. Goal A1c likely 8-9% based on age/co-morbidities. * Pt with hyperglycemia secondary to steroids and pulmonary infection. Solu medrol IV changed to Prednisone 40mg PO daily on 12/26 with plans to continue x 5 days. * Pt was given an increased dose of Lantus yesterday (40 units in the AM). Lantus was changed back to home dose of 22 units daily starting today and weight-based NPH was added to counteract the hyperglycemic effect of prednisone. NPH should be dosed at the same time that prednisone is given. * Lunch BSG significantly elevated (358). I suspected this was due to incorrect carb coverage with breakfast (pt was given 2 units and should have received 7 units), however a repeat BSG @ 1430 was also high (397). I have ordered an IV insulin bolus and will add overnight checks. I am hesitant to make additional changes at this time per has already been given 12 additional units of basal insulin compared to yesterday. PLAN FOR INPATIENT GLYCEMIC CONTROL: * Basal insulin - * Lantus 30 units SQ qAM, plus supplemental dose (0-15 units) this evening based on BSG * Bolus insulin - * NovoLog per scale ACHS or Q6hrs while NPO * Goal Range: Low 120 mg/dL - High 160 mg/dL Breakfast/lunch/dinner: * Correction Factor: 20 mg/dL/unit * Nutritional / Prandial insulin per carb ratio of 1 unit per 6 grams CHO consumed Bedtime plus 0000, 0400: * Correction Factor: 30 mg/dL/unit * Nutritional / Prandial insulin per carb ratio of 1 unit per 11 grams CHO consumed * Please note that the plan above was derived based on current level of insulin resistance and hospital stress. These recommendations are appropriate for inpatient admission only. Plan of care upon discharge will need to be reassessed to avoid potential outpatient hypo/hyperglycemia.
[2018-12-31 14:17] LABS: Hematocrit (blood only) 38.3 % (42-52); Hemoglobin 12.6 g/dL (14.0-18.0); Mean Corpuscular Hemoglobin 28.4 pg (25-34); Mean Corpuscular Hgb Conc 32.9 g/dL (32-36); Mean Corpuscular Volume 86.3 fL (80-100); Mean Platelet Volume 9.8 fL (7.4-10.4); Platelet Count 382 K/uL (130-400); RDW Coefficient of Variation 14.7 % (11.5-14.5); RDW Standard Deviation 45.5 fL (36.4-46.3); Red Blood Count 4.44 M/uL (4.7-6.1); White Blood Count 21.27 K/uL (4.8-10.8)
[2018-12-31 14:29] LABS: INR 1.1 (0.9-1.1); Prothrombin Time 11.4 Seconds (9.0-12.0)
--- NOTE | 2018-12-31 14:31 | Pulmonology Progress Note ---
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 He has a history of Achromobacter infection which is fairly highly resistant. He is currently receiving chest physiotherapy and on. Recommendations: 1. Abnormal CT scan: We will continue aggressive efforts at pulmonary toilet. Continue Mucinex and hypertonic saline nebs. Continue percussive vest and percussive flutter valve. 2. Exacerbation of bronchiectasis: We will try and wean steroids as tolerated. Day number 4 Zosyn. Sputum culture from 12/21/2018 grew Achromobacter which was sensitive to imipenem levofloxacin Bactrim and Zosyn. Would continue Zosyn during hospitalization and consider transition to Levaquin as outpatient to complete a total of 14 days. 3. COPD: Continue Advair regiment. 4. Hemoptysis: Suspect related to exacerbation of bronchiectasis. Resolved with holding Coumadin. Discussed with cardiology. Would recommend holding Coumadin for 1 to 2 weeks to allow for respiratory issues to resolve at which point in time it may be reinstituted. Discussed with patient and cardiology. Patient may be approaching discharge from a pulmonary perspective and can follow-up with Dr. Johansen in the outpatient pulmonary clinic. (2) Hospital acquired PNA: (3) COPD exacerbation: (4) COPD (chronic obstructive pulmonary disease): Subjective Patient seen and examined. EMR reviewed. He states he is doing quite well today and feels remarkably refreshed. He is not coughed at all since last evening. His hemoptysis is completely resolved. He denies any chest pain. No fevers. He is up ambulating short distances. He is unclear what is making a significant difference for him but he does feel markedly better. Review of Systems Review of Systems: Unchanged from prior Physical Exam Constitutional: WD/WN, vitals as above Neck: trachea midline, no thyromegaly Respiratory: Breath sounds are diminished bilaterally. No wheezing Cardiovascular: RRR, no murmur, no edema Gastrointestinal (Abdomen): normal bowel sounds, soft, nontender, no hepatosplenomegaly Results & Data Vital Signs (Past 12 Hours) Vital Signs Temp Pulse Pulse Resp BP BP Pulse Ox 12/31/18 12:51 75 12/31/18 11:57 36.4 C L 91 H 19 128/75 94 12/31/18 11:25 77 18 96 12/31/18 08:01 37.1 C 92 H 16 118/80 91 12/31/18 06:59 84 18 96 12/31/18 04:12 36.8 C 84 22 131/75 96 PG Care Time/CCT Total # of Minutes Spent Total Time Spent with Patient: Total time spent is greater than 50% in coordination of care (as documented) at patient's floor/unit and/or counseling patient:
--- NOTE | 2018-12-31 15:09 | Cardiology Progress Note ---
Date of Service December 31, 2018 Assessment & Plan (1) Atrial fibrillation with RVR: Rates are well controlled. Continue metoprolol tartrate 50 mg twice daily. given hemoptysis in the setting of pneumonia will hold coumadin for 2 weeks and then restart (my office will notify [facility]) risk of stroke during that time period discussed patient and family in agreement with plan, accepting of stroke risk in the setting of hemoptysis ok to d/c to home from cardiac standpoint. (2) Chronic diastolic heart failure: Fine status appears stable. Continue oral furosemide especially given the use of IV antibiotics and attempt to keep his intake and output at least even. would d/c on previous lasix 20mg bid (3) Pneumonia: Complex case as well delineated by the pulmonary medicine note. Continue methylprednisolone and Zosyn. Consider adding pharmacologic or mechanical DVT prophylaxis.Will differ to primary team. Subjective Pt seen and examined with multiple family members at bedside. States that he feels "Terrific, best I've felt in awhile." No recurrence of hemoptysis. Denies cp, sob, palpitations, lightheadedness or dizziness. tele reviewed: afib, rate controlled Review of Systems Review of Systems: All systems reviewed & are unremarkable except as noted in HPI & below Physical Exam Physical Exam: General: Awake, alert and oriented x 3. No acute distress. HEENT: Normocephalic, atraumatic. Pupils equal, round and reactive to light and accommodation. Extraocular muscles are intact. Anicteric sclera. Moist mucous membranes. Neck: No JVD. No bruit. Cardiovascular: irregularly irregular, unable to appreciate murmur, rub or gallop. Pulmonary: Coarse breath sounds with diffuse rhonchi. no rales or wheezing. Abdomen: Bowel sounds x 4, soft. No rebound, guarding or tenderness. No organomegaly. Extremities: No clubbing, cyanosis or edema. +2 pedal pulses bilaterally. Skin: Warm and dry. Results & Data Vital Signs (Past 12 Hours) Vital Signs Temp Pulse Pulse Resp BP BP Pulse Ox 12/31/18 12:51 75 12/31/18 11:57 36.4 C L 91 H 19 128/75 94 12/31/18 11:25 77 18 96 12/31/18 08:01 37.1 C 92 H 16 118/80 91 12/31/18 06:59 84 18 96 12/31/18 04:12 36.8 C 84 22 131/75 96
[2018-12-31] MEDS ORDERED: INSULIN GLARGINE SOLOSTAR 100 UNITS/ML 3 ML PEN SC ONE (16:30)
[2018-12-31] MEDS: DIGOXIN 0.125 MG TAB PO SCH (17:32)
[2018-12-31] MEDS: SIMVASTATIN 20 MG TAB PO SCH (20:02)
[2018-12-31] MEDS: TAMSULOSIN HCL 0.4 MG CAP PO SCH (20:03)
[2019-01-01] MEDS: INSULIN ASPART 100 UNITS/ML 3 ML PEN SC SCH ×5 (00:17→17:16)
[2019-01-01] MEDS: PIPERACILLIN/TAZOBACTAM 3.375 GM in DEXTROSE 5% 100 ML IV SCH ×2 (01:15→10:34)
[2019-01-01] MEDS: CARBOHYDRATES FOR HYPOGLYCEMIA PO PRN ×2 (04:41→04:58)
[2019-01-01] MEDS: SODIUM CHLOR 7% 4 ML NEB INH SCH (07:01)
[2019-01-01] MEDS: ALBUT/IPRATROP 3MG/0.5MG NEB 3 ML VIAL NEB SCH ×3 (07:01→15:06)
[2019-01-01 07:08] LABS: BUN Creatinine Ratio 27.4 (10-20); Calcium 8.6 mg/dl (8.5-10.1); Creatinine Clr Calc Pharmacy 32.4 ml/min; Est GFR (African American) 34.2; Est GFR (Non-African American) 29.5; Potassium 4.6 mmol/L (3.5-5.1)
[2019-01-01] MEDS: FLUTICASONE/SALMETEROL 100/50 (ADVAIR) 14 PUFF/1 INHALER INH SCH (08:08)
[2019-01-01] MEDS: METOPROLOL TARTRATE 50 MG TAB PO SCH (08:08)
[2019-01-01] MEDS: FUROSEMIDE 20 MG TAB PO SCH (08:08)
[2019-01-01] MEDS: ASPIRIN 81 MG ECTAB PO SCH (08:09)
[2019-01-01] MEDS: INSULIN GLARGINE SOLOSTAR 100 UNITS/ML 3 ML PEN SC SCH (08:09)
[2019-01-01] MEDS: methylPREDNISolone 60 MG in SYRINGE 0 ML IV SCH (08:09)
[2019-01-01] MEDS: guaiFENesin 600 MG TABCR PO SCH (08:09)
[2019-01-01] MEDS: FLUTICASONE PROPIONATE NA SPR 16 GM BTL SCH (08:10)
--- NOTE | 2019-01-01 11:45 | Pulmonology Progress Note ---
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 He has a history of Achromobacter infection which is fairly highly resistant. He appears significantly improved clinically Recommendations: 1. Abnormal CT scan: We will continue aggressive efforts at pulmonary toilet. Continue Mucinex and hypertonic saline nebs. Continue percussive vest and percussive flutter valve. 2. Exacerbation of bronchiectasis: We will try and wean steroids as tolerated. Day number 5 Zosyn. Sputum culture from 12/21/2018 grew Achromobacter which was sensitive to imipenem levofloxacin Bactrim and Zosyn. Sputum culture from 12/28/2018 grew Enterobacter which was also sensitive to fluoroquinolones. Would continue Zosyn during hospitalization and consider transition to Levaquin as outpatient to complete a total of 14 days. 3. COPD: Continue Advair regiment. 4. Hemoptysis: Suspect related to exacerbation of bronchiectasis. Resolved with holding Coumadin. Discussed with cardiology. Would recommend holding Coumadin for 1 to 2 weeks to allow for respiratory issues to resolve at which point in time it may be reinstituted. The patient appears appropriate to discharge from a pulmonary perspective. Would complete oral levofloxacin for a total of 14 days therapy. He should follow-up with Dr. Johansen in the outpatient pulmonary clinic. (2) Hospital acquired PNA: (3) COPD exacerbation: (4) COPD (chronic obstructive pulmonary disease): Subjective Patient feels well. He is not expectorating any phlegm. He is off oxygen. He is ambulating and tolerating regular quite well. Review of Systems Review of Systems: Unchanged from prior Physical Exam Constitutional: WD/WN, vitals as above Neck: trachea midline, no thyromegaly Respiratory: Diminished breath sounds bilaterally. Coarse breath sounds but no wheezing Cardiovascular: RRR, no murmur, no edema Gastrointestinal (Abdomen): normal bowel sounds, soft, nontender, no hepatosplenomegaly Results & Data Vital Signs (Past 12 Hours) Vital Signs Temp Pulse Pulse Resp BP BP Pulse Ox 01/01/19 10:59 68 16 93 01/01/19 10:45 36.4 C L 83 19 161/78 H 95 01/01/19 08:00 80 01/01/19 07:54 36.7 C 95 H 19 167/75 H 91 01/01/19 07:03 110 H 20 97 01/01/19 04:54 36.6 C 81 16 144/87 H 94 Laboratory Results 12/31/18 14:04 01/01/19 05:59 Microbiology 12/28/18 14:39 Sputum, Expectorated Gram Stain - Final 12/28/18 14:39 Sputum, Expectorated Sputum Culture - Preliminary Enterobacter cloacae 12/25/18 15:56 Blood Aerobic Blood Culture - Final No growth in Aerobic bottle after 5 days. 12/25/18 15:56 Blood Anaerobic Blood Culture - Final No growth in Anaerobic bottle after 5 days. 12/25/18 15:56 Blood Aerobic Blood Culture - Final No growth in Aerobic bottle after 5 days. 12/25/18 15:56 Blood Anaerobic Blood Culture - Final PG Care Time/CCT Total # of Minutes Spent Total Time Spent with Patient: Total time spent is greater than 50% in coordination of care (as documented) at patient's floor/unit and/or counseling patient:
--- NOTE | 2019-01-01 15:27 | Pharmacy Report ---
Pharmacy Glycemic Short Note 2 - Date of Service January 01, 2019 - Glycemic Short BSG Results (Last 24 hours): 12/31/18 12/31/18 01/01/19 16:32 20:12 00:10 Glucose POC Glucose 205 H 266 H 138 H 01/01/19 01/01/19 01/01/19 04:38 04:55 05:15 Glucose POC Glucose 65 L* 64 L* 93 01/01/19 01/01/19 01/01/19 05:59 07:24 11:14 Glucose 121 H POC Glucose 122 H 232 H OUTPATIENT ANTIDIABETIC REGIMEN: * Lantus 22 units SQ AM * Aspart sliding scale with meals * HbA1c: 9.4% (12/22/18) ASSESSMENT: 01/01: * Patient had an overnight low of 65 around 04:00 today. Fasting BSG = 122. * Will reduce Lantus dose at 16:30 today to try prevent the low BSG overnight. * Post prandial BSGs were elevated yesterday- correction factor was therefore tightened to 15 with lunch. * If dinner BSG continue to be above 200 today, will further tighten carb ratio to 4 * Patient received total of 86 units of insulin yesterday. 12/31/18: * Fasting this morning 120 within goal range- will continue current lantus with scale * Lunch BSG continues to be elevated- tighten novolog parameters, patient is continuing on solu-medrol 60 mg BID. 12/30/18: * Steroids were changed last evening from Prednisone 40mg daily to SoluMedrol 60mg BID. * BSGs have been poorly controlled in the setting of high-dose steroids. * Patient's Lantus was increased this morning and Novolog parameters were tightened, however pre-lunch BSG was still significantly elevated. * Will continue to adjust regimen as needed while steroid doses are modified. 12/29 * Mr. Plata's glycemic control significantly improved yesterday with the exception of HS BSG, which was likely elevated due to prednisone. * He received 83 units of insulin yesterday (52 units of basal and 53 units of bolus). He remains on weight based NPH for steroid induced hyperglycemia. * Fasting BSG was trending downward, therefore Lantus dose had been decreased from 22 to 20 units. I will further decrease due to severe hypoglycemia overnight (BSG 46 mg/dL). I suspect this low was due to basal insulin since BSG was 302 mg/dL at bedtime. * Pt was again hypoglycemic at lunchtime. He was asymptomatic per nursing. I instructed RN to hold lunch insulin and I have placed NPH on hold until further BSG data is available. I will loosen novolog parameters due to sustained hypo. 12/27 * 78yo Type 1 diabetic male with near adequate outpatient glycemic control per recent A1c. Goal A1c likely 8-9% based on age/co-morbidities. * Pt with hyperglycemia secondary to steroids and pulmonary infection. Solu medrol IV changed to Prednisone 40mg PO daily on 12/26 with plans to continue x 5 days. * Pt was given an increased dose of Lantus yesterday (40 units in the AM). Lantus was changed back to home dose of 22 units daily starting today and weight-based NPH was added to counteract the hyperglycemic effect of prednisone. NPH should be dosed at the same time that prednisone is given. * Lunch BSG significantly elevated (358). I suspected this was due to incorrect carb coverage with breakfast (pt was given 2 units and should have received 7 units), however a repeat BSG @ 1430 was also high (397). I have ordered an IV insulin bolus and will add overnight checks. I am hesitant to make additional changes at this time per has already been given 12 additional units of basal insulin compared to yesterday. PLAN FOR INPATIENT GLYCEMIC CONTROL: * Basal insulin - * Lantus 30 units SQ qAM, plus supplemental dose (0-5 units) with dinner based on BSG * Bolus insulin - * NovoLog per scale ACHS or Q6hrs while NPO * Goal Range: Low 120 mg/dL - High 160 mg/dL Breakfast/lunch/dinner: * Correction Factor: 15 mg/dL/unit * Nutritional / Prandial insulin per carb ratio of 1 unit per 5 grams CHO consumed Bedtime plus 0000, 0400: * Correction Factor: 30 mg/dL/unit * Nutritional / Prandial insulin per carb ratio of 1 unit per 11 grams CHO consumed * Please note that the plan above was derived based on current level of insulin resistance and hospital stress. These recommendations are appropriate for i npatient admission only. Plan of care upon discharge will need to be reassessed to avoid potential outpatient hypo/hyperglycemia.
--- NOTE | 2019-01-01 15:43 | Hospitalist Progress Note ---
Date of Service January 01, 2019 Assessment & Plan (1) Acute and chronic respiratory failure: This is an 78yo M with a PMH of DM I, tachybradycardia syndrome s/p pacemaker placement, COPD, paroxysmal atrial fibrillation on Coumadin, nocturnal hypoxia on 2 L nasal cannula at bedtime, HLD and other medical problems listed below who presents with progressive shortness of breath x 3 days and was found to have acute on chronic respiratory failure in the setting of known community acquired pneumonia, COPD exacerbation, volume overload and atrial fibrillation with RVR. -In setting of pneumonia- possibly healthcare associated, COPD exacerbation, volume overload -Condition deteriorated and required pulmonary input -Has been on steroids as well -Feeling a a lot better today (2) Pneumonia: Condition worsened CT chest: On 12/27 1. Tracheomalacia with large amount of secretions/mucous plugging about the bronchus intermedius and right lower lobe bronchi with additional mucous plugging within the segmental bronchial branches of the left lower lobe. 2. Bibasilar patchy groundglass and consolidative opacities appear to have mildly improved from 12/25/2018 chest radiograph and are suggestive of aspiration pneumonitis versus bibasilar pneumonia. 3. Small hiatal hernia. 4. Cardiomegaly without overt pulmonary edema. 5. Emphysema. 6. Calcified pleural plaques of the right hemithorax redemonstrated. Sputum culture: negative Blood cultures: negative Nasal MRSA negative Has been on Zosyn IV, Nebs, Solumedrol Pulmonary consulted as patient was not improving, developed hemoptysis Vibration vest with hypertonic nebs, Mucinex, flutter valve Clinically improving We will taper steroid on discharge (3) COPD exacerbation: History of COPD, Tracheomalacia, Bronchiectasis History of obstructive lung disease as well as known exposures to biofuels and asbestos, 80 pack year smoking history -Evaluated by pulm service earlier this year for COPD exacerbation and chronic mucopurulent bronchitis -Underwent PFTs with Dr. Johansen in May 2018 with evidence of a moderate obstructive ventilatory defect even more pronounced at low lung volumes. Lung volumes were well within normal limits. Diffusion capacity was moderately reduced Management as mentioned above (4) Acute on chronic diastolic heart failure: Presented with acute shortness of breath and the chest x-ray did show pulmonary edema Likely secondary to acute on chronic diastolic heart failure complicated by rapid heart rate due to atrial fibrillation and complicated by valvular heart disease as mentioned below Echo showed-rhythm is atrial fibrillation, EF 55 to 60%, no regional wall motion abnormalities, mild to moderate mitral regurgitation, moderate tricuspid regurgitation, estimated systolic pulmonary artery pressure discontinued of mercury Received IV Lasix Digoxin increased to daily Crea improved Usual p.o. Lasix resumed monitor Head Of [employer] consulted-patient the recommendations (5) Atrial fibrillation with RVR: HR increased from 114 to 130s in the setting of PNA, volume overload, incorrect Lopressor dose for the past few days - Digoxin increased to daily - Heart rate is controlled Head Of [employer] consulted-appreciate input and recommendation INR 1.3 hemoptysis resolved HOLD coumadin for now per Pulm SVC for at least 1 to 2 weeks to allow for respiratory issues to resolve at which point in time it may be reinstituted monitor INR (6) Volume overload: management as noted above (7) Diabetes type I: A1c of 9.5 earlier in November Pharmacy Glycemic Control Consult (8) CKD (chronic kidney disease) stage 3, GFR 30-59 ml/min: creatinine trending up, from 1.5 --> 2.00 now 1.9 monitor creatinine (9) Tachycardia-bradycardia syndrome: S/p pacemaker placement DVT Ppx: SCDs only in light of hemoptysis Code status: DNR per discussion with patient PCP: Mell Dispo: pending PT and OT evaluation We will discharge him tomorrow morning Subjective 01/01 Patient was seen and examined in telemetry unit He has been feeling a lot better today Cough is less without any phlegm and shortness of breath is much improved Denies any chest pain and/or palpitation Review of Systems Review of Systems: All systems reviewed and are unremarkable except as noted below Respiratory: + cough, + dyspnea on exertion and + wheezing Cardiovascular: no chest pain Physical Exam Physical Exam: Sitting on a chair without any symptoms except minimal cough Constitutional: well developed, well nourished and + obese; no acute distress and not ill appearing Eyes: PERRL, conjunctivae normal, anicteric sclerae ENMT: external ear and nose normal, oropharynx normal Neck: trachea midline, no thyromegaly Respiratory: normal respiratory effort; no respiratory distress Auscultation: + diminished lung sounds; no wheezes Cardiovascular: Rate/Rhythm: regular rate and regular rhythm Heart Sounds: no murmur Gastrointestinal (Abdomen): Inspection/Auscultation: abdomen normal to inspection and normal bowel sounds Percussion/Palpation: abdomen soft Musculoskeletal: No acute arthritis in any of the joints Neurologic: moves all extremities; no focal motor deficits Psychiatric: A+Ox3, euthymic affect Lymphatic: no cervical or axillary lymphadenopathy Results & Data Vital Signs (Past 12 Hours) Vital Signs Temp Pulse Pulse Resp BP BP Pulse Ox 01/01/19 15:09 83 20 95 01/01/19 10:59 68 16 93 01/01/19 10:45 36.4 C L 83 19 161/78 H 95 01/01/19 08:00 80 01/01/19 07:54 36.7 C 95 H 19 167/75 H 91 01/01/19 07:03 110 H 20 97 01/01/19 04:54 36.6 C 81 16 144/87 H 94 Laboratory Results [facility] 01/01/19 05:59 Sodium 138 Potassium 4.6 Chloride 99 Carbon Dioxide 31 BUN 56 H Creatinine 2.06 H Glucose 121 H Calcium 8.6 Medications Administered Current Inpatient Medications Acetaminophen (Tylenol) 650 mg PO Q4H PRN PRN Reason: Pain or Fever Stop: 01/24/19 19:51 Last Admin: 12/25/18 21:44 Dose: 650 mg Documented by: Al Hydrox/Mg Hydrox/Simethicone (Maalox) 15 ml PO Q6H PRN PRN Reason: Dyspepsia Stop: 01/25/19 16:33 Last Admin: 12/30/18 16:06 Dose: 15 ml Documented by: Albuterol (Duoneb) 3 ml NEB QIDR [facility] Stop: 01/24/19 20:59 Last Admin: 01/01/19 15:06 Dose: 3 ml Documented by: Aspirin (Ecotrin Ectab) 81 mg PO DAILY [facility] Stop: 01/25/19 08:59 Last Admin: 01/01/19 08:09 Dose: 81 mg Documented by: Benzonatate (Tessalon Perle) 100 mg PO TID PRN PRN Reason: Cough Stop: 01/25/19 22:33 Last Admin: 12/27/18 00:00 Dose: 100 mg Documented by: Dextrose (Dextrose 50%) 25 - 50 ml IV UD PRN; Protocol PRN Reason: Hypoglycemia Protocol Stop: 01/24/19 19:59 Digoxin (Lanoxin) 0.125 mg PO DAILY@1600 [facility] Stop: 01/25/19 15:59 Last Admin: 12/31/18 17:32 Dose: 0.125 mg Documented by: Fluticasone Propionate (Flonase) 2 sprays NA DAILY [facility] Stop: 01/25/19 08:59 Last Admin: 01/01/19 08:10 Dose: 2 sprays Documented by: Furosemide (Lasix) 20 mg PO BID [facility] Stop: 01/25/19 20:59 Last Admin: 01/01/19 08:08 Dose: 20 mg Documented by: Glucagon (Glucagen) 1 mg IM UD PRN; Protocol PRN Reason: Hypoglycemia Protocol Stop: 01/24/19 19:59 Glucose (Glucose 40%) 15 - 30 gm PO UD PRN; Protocol PRN Reason: Hypoglycemia Protocol Stop: 01/24/19 19:59 Glucose (Dex4 Glucose) 4 - 8 tabs PO UD PRN; Protocol PRN Reason: Hypoglycemia Protocol Stop: 01/24/19 19:59 Guaifenesin (Mucinex) 1,200 mg PO Q12 [facility] Stop: 01/24/19 20:59 Last Admin: 01/01/19 08:09 Dose: 1,200 mg Documented by: Piperacillin Sod/Tazobactam (Sod 3.375 gm/ Dextrose) 115 mls @ 28.75 mls/hr IV Q8H [facility]; Protocol Stop: 01/03/19 11:59 Last Admin: 01/01/19 10:34 Dose: 30 mls/hr Documented by: Methylprednisolone 60 mg/ (Syringe) 0.96 mls @ 1.5 mls/min IV BID [facility] Stop: 01/28/19 20:59 Last Admin: 01/01/19 08:09 Dose: 1.5 mls/min Documented by: Insulin Aspart (Novolog Flexpen) 0 units SC HS [facility] Stop: 01/28/19 20:59 Last Admin: 12/31/18 21:04 Dose: 7 units Documented by: Insulin Aspart (Novolog Flexpen) 0 units SC 0730,1130,1630 [facility] Stop: 01/28/19 07:29 Last Admin: 01/01/19 12:41 Dose: 15 units Documented by: Insulin Aspart (Novolog Flexpen) 0 units SC 0000,0400 [facility] Stop: 01/02/19 04:01 Insulin Glargine (Lantus Solostar Pen) 30 units SC QAM [facility]; Protocol Stop: 01/29/19 10:14 Last Admin: 01/01/19 08:09 Dose: 30 units Documented by: Insulin Glargine (Lantus Solostar Pen) 0 units SC TODAY@1630 [facility]; Protocol Stop: 01/01/19 16:31 Metoprolol Tartrate (Lopressor) 50 mg PO BID [facility] Stop: 01/24/19 20:59 Last Admin: 01/01/19 08:08 Dose: 50 mg Documented by: Miscellaneous (Carbohydrates For Hypoglycemia) 15 - 30 gm PO UD PRN PRN Reason: Hypoglycemia Treatment Stop: 01/24/19 19:59 Last Admin: 01/01/19 04:58 Dose: 15 gm Documented by: Miscellaneous Information (Consult Glycemic Management Pharmacy) 1 ea N/A UD PRN PRN Reason: Consult Stop: 01/24/19 20:09 Miscellaneous Information (Consult) 1 ea N/A UD PRN PRN Reason: Consult Stop: 01/26/19 11:41 Nitroglycerin (Nitrostat) 0.4 mg SL Q5M PRN PRN Reason: Chest Pain Stop: 01/24/19 19:51 Ranitidine HCl (Zantac) 150 mg PO BID [facility] Stop: 01/24/19 20:59 Last Admin: 01/01/19 08:09 Dose: 150 mg Documented by: Fluticasone/Salmeterol (Advair Diskus 100/50) 1 puffs INH BID [facility] Stop: 01/26/19 11:59 Last Admin: 01/01/19 08:08 Dose: 1 puffs Documented by: Simvastatin (Zocor) 20 mg PO HS [facility] Stop: 01/24/19 20:59 Last Admin: 12/31/18 20:02 Dose: 20 mg Documented by: Sodium Chloride (Sodium Chlor 7% Neb Solution) 4 ml INH BIDR [facility] Stop: 01/29/19 18:59 Last Admin: 01/01/19 07:01 Dose: 4 ml Documented by: Tamsulosin HCl (Flomax) 0.4 mg PO HS [facility] Stop: 01/24/19 20:59 Last Admin: 12/31/18 20:03 Dose: 0.4 mg Documented by: Zolpidem Tartrate (Ambien) 5 mg PO HS PRN PRN Reason: Insomnia Stop: 01/24/19 19:51 (1) Acute and chronic respiratory failure Respiratory failure complication: hypoxia Qualified Code(s): J96.21 - Acute and chronic respiratory failure with hypoxia
[2019-01-01] MEDS ORDERED: levoFLOXacin 500 MG TAB PO STA (15:45)
[2019-01-01] MEDS ORDERED: INSULIN GLARGINE SOLOSTAR 100 UNITS/ML 3 ML PEN SC ONE (16:30)
[2019-01-01] MEDS ORDERED: levoFLOXacin 750 MG TAB PO SCH (16:30)
[2019-01-01] MEDS: DIGOXIN 0.125 MG TAB PO SCH (16:40)
--- NOTE | 2019-01-01 17:02 | Cardiology Progress Note ---
Date of Service January 01, 2019 Assessment & Plan (1) Atrial fibrillation with RVR: Rates are well controlled. Continue metoprolol tartrate 50 mg twice daily. given hemoptysis in the setting of pneumonia will hold coumadin for 2 weeks and then restart (my office will notify [facility] clinic) risk of stroke during that time period discussed patient and family in agreement with plan, accepting of stroke risk in the setting of hemoptysis ok to d/c to home from cardiac standpoint. (2) Chronic diastolic heart failure: Fine status appears stable. Continue oral furosemide especially given the use of IV antibiotics and attempt to keep his intake and output at least even. would d/c on previous lasix 20mg bid (3) Pneumonia: Complex case as well delineated by the pulmonary medicine note. Continue methylprednisolone and Zosyn. Consider adding pharmacologic or mechanical DVT prophylaxis.Will differ to primary team. Subjective Pt seen and examined, without complaints. states that he feels great. No further hemoptysis. Denies cp, sob, palpitations, lightheadedness or dizziness. tele reviewed: afib 80's-90's Review of Systems Review of Systems: All systems reviewed & are unremarkable except as noted in HPI & below Physical Exam Physical Exam: General: Awake, alert and oriented x 3. No acute distress. HEENT: Normocephalic, atraumatic. Pupils equal, round and reactive to light and accommodation. Extraocular muscles are intact. Anicteric sclera. Moist mucous membranes. Neck: No JVD. No bruit. Cardiovascular: irregularly irregular, unable to appreciate murmur, rub or gallop. Pulmonary: Clear to auscultation bilaterally. No rales, rhonchi, or wheezing. Abdomen: Bowel sounds x 4, soft. No rebound, guarding or tenderness. No organomegaly. Extremities: No clubbing, cyanosis or edema. +2 pedal pulses bilaterally. Skin: Warm and dry. Results & Data Vital Signs (Past 12 Hours) Vital Signs Temp Pulse Pulse Pulse Resp BP BP 01/01/19 16:40 84 01/01/19 15:25 36.3 C L 93 H 18 161/89 H 01/01/19 15:09 83 20 01/01/19 10:59 68 16 01/01/19 10:45 36.4 C L 83 19 161/78 H 01/01/19 08:00 80 01/01/19 07:54 36.7 C 95 H 19 167/75 H 01/01/19 07:03 110 H 20 Pulse Ox 01/01/19 16:40 01/01/19 15:25 96 01/01/19 15:09 95 01/01/19 10:59 93 01/01/19 10:45 95 01/01/19 08:00 01/01/19 07:54 91 01/01/19 07:03 97
[2019-01-02] MEDS ORDERED: INSULIN ASPART 100 UNITS/ML 3 ML PEN SC SCH
[2019-01-02] MEDS ORDERED: predniSONE 20 MG TAB PO SCH (09:00)
--- NOTE | 2019-01-02 12:25 | Discharge Summary ---
Date of Service January 02, 2019 Admission HPI Per Admitting Provider This is an 78yo M with a PMH of DM I, tachybradycardia syndrome s/p pacemaker placement, paroxysmal atrial fibrillation on Coumadin, COPD, nocturnal hypoxia on 2 L nasal cannula at bedtime, HLD and other medical problems listed below who presents with progressive shortness of breath x 3 days. Patient was recently admitted from 12/21-12/24 with sepsis secondary to community-acquired pneumonia. No growth on sputum or blood cultures and patient was discharged on 7-day course of Ceftin and doxycycline. Since yesterday, patient has been requiring 4 L nasal cannula continuously, when he normally only uses 2 L at bedtime. Endorsing productive cough with clear phlegm and feels like there is "phlegm stuck in my throat". Has been taking antibiotics as prescribed. There is also some confusion about metoprolol dosing and patient has been taking Lopressor 25 mg twice daily since discharge but is actually supposed to be taking 50 mg twice daily. 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 Denies any fever or chills. Denies wheezing. No lightheadedness, visual changes, chest pain, palpitations, nausea, vomiting, abdominal pain, dysuria, diarrhea or constipation. Since discharge, denies weight loss. States he has been eating normal diet including cereal, macaroni and cheese and pork chops. Has also increased fluid intake. Denies any PND or orthopnea. In the ED, patient found to be tachycardic at 115 with oxygen saturation of 94% on 4 L nasal cannula. No leukocytosis. Chest x-ray with cardiomegaly with mild volume overload and bibasilar infiltrates similar to prior exam. In ED, given 20 mg IV Lasix, 60 mg IV Solu-Medrol, DuoNeb treatment and nitro paste. Admission Exam Per Admitting Provider Physical Exam: General Appearance: WD/WN, sitting upright in bed with intermittent coughing with associated respiratory distress, wearing 4L NC O2 Head: normocephalic, atraumatic Eyes: normal inspection, PERRL, EOMI ENT: hearing grossly normal, pharynx normal (moist mucous membranes) Neck: supple, no JVD, no adenopathy Respiratory/Chest: lungs with diffuse rhonchi, rales at bilateral bases with decreased air movement. No wheezes appreciated, intermittent coughing Cardiovascular: regular rate, rhythm, no murmur appreciated, normal peripheral pulses, 1-2+ pitting BLE edema Abdomen/GI: normal bowel sounds, soft, non-tender to palpation Extremities/Musculoskelatal: normal inspection, no calf tenderness, normal capillary refill Neurologic/Psych: alert, normal mood/affect, oriented x 3 Skin: normal color, warm/dry Principal Diagnosis Acute on chronic respiratory failure, hospital-acquired pneumonia, COPD exacerba tion, atrial fibrillation with RVR, acute on chronic diastolic heart failure Discharge Exam Constitutional well developed, well nourished and + obese; no acute distress and not ill appearing Eyes PERRL, conjunctivae normal, anicteric sclerae ENMT external ear and nose normal, oropharynx normal Neck trachea midline, no thyromegaly Respiratory normal respiratory effort; no respiratory distress Auscultation: + diminished lung sounds; no wheezes Cardiovascular Rate/Rhythm: regular rate and regular rhythm Heart Sounds: no murmur Gastrointestinal (Abdomen) Inspection/Auscultation: abdomen normal to inspection and normal bowel sounds Percussion/Palpation: abdomen soft Neurologic moves all extremities; no focal motor deficits Psychiatric A+Ox3, euthymic affect Lymphatic no cervical or axillary lymphadenopathy Discharge Data Allergies Allergy/AdvReac Type Severity Reaction Status Date / Time diltiazem Allergy Mild RASH Verified 12/21/18 22:29 aspirin AdvReac Mild GI SYMPTOMS Verified 12/21/18 22:29 lisinopril AdvReac Unknown cough Verified 12/21/18 22:29 propoxyphene AdvReac Unknown STOMACH Verified 12/21/18 22:29 UPSET DIARRHEA fluticasone furoate AdvReac Joint Pain Verified 12/21/18 22:29 [From Breo Ellipta] vilanterol AdvReac Joint Pain Verified 12/21/18 22:29 [From Breo Ellipta] Consultations 12/25/18 17:01 ED Decision to Admit Stat 12/25/18 19:52 Consult Case Management - Discharge Planning Routine 12/27/18 09:07 Consult Cardiology Routine Consult Pulmonology Routine Ordered Studies 12/27/18 09:07 CT chest wo con Routine Hospital Course (1) Acute and chronic respiratory failure: This is an 78yo M with a PMH of DM I, tachybradycardia syndrome s/p pacemaker placement, COPD, paroxysmal atrial fibrillation on Coumadin, nocturnal hypoxia on 2 L nasal cannula at bedtime, HLD and other medical problems listed below who presents with progressive shortness of breath x 3 days and was found to have acute on chronic respiratory failure in the setting of known community acquired pneumonia, COPD exacerbation, volume overload and atrial fibrillation with RVR. -In setting of pneumonia- possibly healthcare associated, COPD exacerbation, volume overload -Condition deteriorated and required pulmonary input -Has been on steroids as well -Feeling a a lot better today (2) Pneumonia: Condition worsened CT chest: On 12/27 1. Tracheomalacia with large amount of secretions/mucous plugging about the bronchus intermedius and right lower lobe bronchi with additional mucous plugging within the segmental bronchial branches of the left lower lobe. 2. Bibasilar patchy groundglass and consolidative opacities appear to have mildly improved from 12/25/2018 chest radiograph and are suggestive of aspiration pneumonitis versus bibasilar pneumonia. 3. Small hiatal hernia. 4. Cardiomegaly without overt pulmonary edema. 5. Emphysema. 6. Calcified pleural plaques of the right hemithorax redemonstrated. Sputum culture: negative Blood cultures: negative Nasal MRSA negative Has been on Zosyn IV, Nebs, Solumedrol Pulmonary consulted as patient was not improving, developed hemoptysis Vibration vest with hypertonic nebs, Mucinex, flutter valve Clinically improving We will taper steroid on discharge (3) COPD exacerbation: History of COPD, Tracheomalacia, Bronchiectasis History of obstructive lung disease as well as known exposures to biofuels and asbestos, 80 pack year smoking history -Evaluated by pulm service earlier this year for COPD exacerbation and chronic mucopurulent bronchitis -Underwent PFTs with Dr. Johansen in May 2018 with evidence of a moderate obstructive ventilatory defect even more pronounced at low lung volumes. Lung volumes were well within normal limits. Diffusion capacity was moderately reduced Management as mentioned above (4) Acute on chronic diastolic heart failure: Presented with acute shortness of breath and the chest x-ray did show pulmonary edema Likely secondary to acute on chronic diastolic heart failure complicated by rapid heart rate due to atrial fibrillation and complicated by valvular heart disease as mentioned below Echo showed-rhythm is atrial fibrillation, EF 55 to 60%, no regional wall motion abnormalities, mild to moderate mitral regurgitation, moderate tricuspid regurgitation, estimated systolic pulmonary artery pressure discontinued of mercury Received IV Lasix Digoxin increased to daily Crea improved Usual p.o. Lasix resumed monitor Case Management Coordinator consulted-patient the recommendations (5) Atrial fibrillation with RVR: HR increased from 114 to 130s in the setting of PNA, volume overload, incorrect Lopressor dose for the past few days - Digoxin increased to daily - Heart rate is controlled Case Management Coordinator consulted-appreciate input and recommendation INR 1.3 hemoptysis resolved HOLD coumadin for now per Pulm SVC for at least 1 to 2 weeks to allow for respiratory issues to resolve at which point in time it may be reinstituted monitor INR (6) Volume overload: management as noted above (7) Diabetes type I: A1c of 9.5 earlier in November Pharmacy Glycemic Control Consult (8) CKD (chronic kidney disease) stage 3, GFR 30-59 ml/min: creatinine trending up, from 1.5 --> 2.00 now 1.9 monitor creatinine (9) Tachycardia-bradycardia syndrome: S/p pacemaker placement DVT Ppx: SCDs only in light of hemoptysis Code status: DNR per discussion with patient PCP: Mell Dispo: pending PT and OT evaluation We will discharge him tomorrow morning Total Time Total Time Spent Total Time Spent (In Minutes): 35 minutes Total Time Includes: Examination of the Patient, Discharge Planning, Medication Reconciliation and Communication With Other Providers Discharge Plan Discharge Items Patient Disposition: Home - Self-Care Reason For Visit: ACUTE ON CHRONIC RESP FAILURE, VOLUME OVERLOAD, Discharge Diagnosis: Acute on chronic respiratory failure, hospital-acquired pneumonia, COPD exacerbation, atrial fibrillation with RVR, acute on chronic diastolic heart failure Condition: Fair Discharge Goals: Decrease discomfort and Improve function Activity: Resume your previous activity Non-emergency contact: Primary Care Provider Call non-emergency contact if: you have any medication questions and your symptoms worsen Follow-up/Referrals: Thomas Johansen MD [Physician] - 01/10/19 11:00 am (Your appointment is with Kg Faith MD [Primary Care Provider] - 01/06/19 10:45 am (Your appointment is with Dr. Barnett. Dr. Last is not available) Diet: Carb Consistent or DM2 and Low Sodium (2gm) Addtl Provider Instructions: Please take precaution to avoid falls Your Coumadin has been on hold for 2 weeks. Please have follow-up appointment with Coumadin clinic in 1 week before restarting Coumadin. Continue oxygen Prescriptions: New prednisone 20 mg Tablet 60 mg PO UD Qty: 24 RF: 0 benzonatate [Tessalon Perles] 100 mg Capsule 100 mg PO TID PRN (Reason: cough) 10 Days Qty: 30 RF: 0 levofloxacin 750 mg Tablet 750 mg PO Q2D@1100 10 Days Qty: 5 RF: 0 Lactinex 1 million cell tablet,chewable 2 tab PO BID Qty: 40 RF: 0 Continued metoprolol tartrate 50 mg tablet 50 mg PO BID RF: 0 tamsulosin [Flomax] 0.4 mg Capsule 0.4 mg PO HS RF: 0 simvastatin [Zocor] 20 mg Tablet 20 mg PO HS RF: 0 ranitidine HCl 150 mg Tablet 150 mg PO BID RF: 0 nitroglycerin [Nitrostat] 0.4 mg Tablet, Sublingual 0.4 mg Sublingual UNKNOWN PRN (Reason: Chest Pain) RF: 0 aspirin 81 mg Tablet,Chewable 81 mg PO DAILY RF: 0 zolpidem [Ambien] 5 mg Tablet 5 mg PO HS PRN (Reason: Insomnia) RF: 0 Novolog Flexpen U-100 Insulin 100 unit/mL Insulin Pen See Rx Instructions .ROUTE .COMPLEX RF: 0 fluticasone furoate 27.5 mcg/actuation [place],Suspension 2 spray Intranasal DAILY RF: 0 Lantus Solostar U-100 Insulin 100 unit/mL (3 mL) Insulin Pen 22 unit SUBCUT QAM RF: 0 Dulera 100-5 mcg/actuation Hfa Aerosol Inhaler 2 puff INHALATION BID RF: 0 Combivent Respimat 20-100 mcg/actuation Mist 1 puff INHALATION QID RF: 0 furosemide 20 mg Tablet 20 mg PO BID RF: 0 albuterol sulfate 0.63 mg/3 mL Solution For Nebulization 0.63 mg INHALATION QID PRN (Reason: Shortness Of Breath Or Wheezing) RF: 0 Changed digoxin 125 mcg Tablet 0.125 mg PO DAILY Qty: 0 RF: 0 Discontinued warfarin 2.5 mg tablet 1.25 mg PO Q2D RF: 0 warfarin 2.5 mg tablet 2.5 mg PO Q2D RF: 0 Stand-Alone Forms: [facility] Discharge Orders: Discharge Order (Routine); Ordered 01/01/19 Ordered By: Vincent Kenyon Admission Data Admit Date/Time: 12/25/18 18:28 Attending Provider: Vincent Kenyon Admit Provider: Vincent Kenyon Primary Care Provider: Kg Monte Other Providers: Vincent Kenyon ; Stan Hall ; Thomas Johansen ; Gurdeep Rucker Service: Telemetry Other Interventions: Discharge Summary Assessment (RN) Last Done: 01/01/19 17:00 DC Date/Time DO NOT enter until pt leaves facility: 01/01/19 17:18
== END 2019-01-01 17:18 | disposition home or self-care (01) | DRG 193 ==
LOC: ED 14:29 → SUATTDRO 18:28 → 2S 18:28

== ENCOUNTER 2019-07-14 11:47 | Inpatient (IN) ==
--- NOTE | 2019-07-09 14:21 | Anesthesiology Consultation ---
Date of Service July 09, 2019 Assessment & Plan (1) Encounter for pre-operative examination: - Pulmonary office visit: 05/28/19: Stable. "Intolerant to CPAP and/or BiPAP for treatment of tracheomalacia. Renew Rx for Combivent Respimat as rescue inhaler return in 4 to 6 months." - Cardiology note: 07/09/19: "Patient on July 06, 2019 suffered a mechanical fall with subsequent olecranon fracture. Patient anticipates surgical repair on July 14, 2019. Patient notes no change in cardiac status. No chest pains or worsening shortness of breath. No fevers chills or productive cough. No dizziness or lightheadedness. No tachy palpitations syncope or near syncope. No fevers chills or unexplained infection. Patient has been appropriately anticoagulated with anticoagulation management discussed in detail.. Pacemaker interrogation on June 09, 2019 revealed normal device function with underlying chronic atrial fibrillation and approximately 20% RV pacing. Estimated battery life 6 years. Impression: No cardiac contraindications to proceeding with surgery as planned. No recent angina, congestive heart failure or arrhythmias. Pacemaker functioning appropriately. No significant valvular disease. Oral anticoagulation to be held after today's dose and resume postoperatively" - Pacemaker: case reviewed with Dr. Cali Durham. He does not feel that pacer rep needs to be requested for DOS from his perspective. - S/P robotic thoracoscopy, pleural biopsy: 08/09/16: Grade view 1, MAC#3 at [facility] - Check BSG, coags AM DOS - Warfarin instructions per surgeon/prescriber. Chart Review Chart Review: Acceptable Risk for Surgery (pending evaluation AM DOS) and Patient seen in Pre Admission Testing Teaching & Discussion Pre-Anesthesia Teaching/Discussion Notes: Instructed NPO after midnight before surgery,except medications with 15 cc of water. Medication instructions provided according to the PAT guidelines. History Surgery Operation Date: 07/14/19 14:30 Proposed Procedures p Right Elbow Olecrannon Fracture Open Reduction Internal Fixation - Mark Grant MD Height/Weight Height: 5 ft 11 in Weight: 92.7 kg Allergies Allergy/AdvReac Type Severity Reaction Status Date / Time diltiazem Allergy Mild rash Verified 07/09/19 12:35 lisinopril Allergy Mild cough Verified 07/08/19 15:22 fluticasone furoate AdvReac Intermediate Joint Pain Verified 07/08/19 15:22 [From Juancarlos Osborne] vilanterol AdvReac Intermediate Joint Pain Verified 07/08/19 15:22 [From [facility] [employer]] aspirin AdvReac Mild GI symptoms Verified 07/09/19 12:35 propoxyphene AdvReac Mild GI upset, Verified 07/09/19 12:35 diarrhea Medications Home Medications Medication Instructions Recorded Confirmed Last Taken Lantus Solostar U-100 Insulin 20 - 22 unit SUBCUT QAM 07/03/18 07/08/19 11/27/18 aspirin 81 mg PO QAM 07/03/18 07/08/19 11/27/18 fluticasone furoate 2 spray INTRANASAL DAILY PRN 07/03/18 07/08/19 11/27/18 insulin aspart U-100 [Novolog 4 - 6 unit SUBCUT TID 07/03/18 07/08/19 11/27/18 Flexpen U-100 Insulin] nitroglycerin [Nitrostat] 0.4 mg SUBLINGUAL UD PRN 07/03/18 07/08/19 Unknown ranitidine HCl 150 mg PO BID 07/03/18 07/08/19 11/27/18 simvastatin [Zocor] 20 mg PO QPM 07/03/18 07/08/19 11/26/18 tamsulosin [Flomax] 0.4 mg PO HS 07/03/18 07/08/19 11/26/18 furosemide 20 mg PO BID 11/27/18 07/08/19 11/27/18 albuterol sulfate 0.63 mg INHALATION QID PRN 12/21/18 07/08/19 Unknown metoprolol tartrate 50 mg PO BID 12/25/18 07/08/19 Unknown warfarin 2.5 mg tablet 2.5 mg PO UD 01/10/19 07/08/19 Unknown ipratropium 20 mcg-albuterol 100 1 puff INHALATION QID 30 Days #1 05/28/19 07/08/19 Unknown mcg/actuation mist for inhalation inhaler budesonide-formoterol HFA 160 2 puffs INH BID #10.2 gm 06/04/19 07/08/19 Unknown mcg-4.5 mcg/actuation aerosol inhaler benzonatate [Tessalon Perles] 100 mg PO BID PRN 07/08/19 07/08/19 Unknown digoxin 0.125 mg PO 3XWK 07/08/19 07/08/19 Unknown ipratropium-albuterol [Combivent 1 puff INHALATION BID 07/08/19 07/08/19 Unknown Respimat] Past Medical History Medical History (Updated 07/09/19 @ 16:09 by Nehal Daniels) Anemia felt d/t chronic disease, hgb baseline 10-12 range per chart review Atrial fibrillation paroxysmal- on coumadin BPH (benign prostatic hypertrophy) CKD (chronic kidney disease) stage 3, GFR 30-59 ml/min COPD (chronic obstructive pulmonary disease) Diabetes type I Dyslipidemia per records Elbow fracture, right current issue s/p fall at home GERD (gastroesophageal reflux disease) r/t inhalers Interstitial lung disease Nocturnal hypoxemia 2L O2 HS 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)/last check 06/09/19 Pulmonary embolism remote hx Skin cancer left elbow region Exercise / Class Metabolic Activity III < 4 Walking/Shop/Light housework Past Family History Family History Brother Diabetes Son Diabetes Family hx of colon cancer Other Heart disease Past Surgical History Surgical History H/O basal cell carcinoma excision (Chronic) REMOVED FROM NOSE H/O hand surgery LEFT MIDDLE FINGER FX REPAIR H/O inguinal hernia repair (Chronic) H/O nasal polypectomy (Chronic) History of bronchoscopy History of cataract surgery RT/LEFT History of colonoscopy History of inguinal hernia repair History of lung biopsy robotic thoracoscopy, pleural biopsy: 08/09/16: Grade view 1, MAC#3 at [facility] History of surgery of head "correct skull abnormality- left temporoparietal ; 1992" History of tooth extraction Status post placement of cardiac pacemaker (Inactive) Past Anesthesia History No Hx of Anesthesia Complications and No Family Hx of Anesthesia Complications History of PONV No Hx of PONV and No Hx of Motion Sickness Social History Smoking Status: Former smoker tobacco type: cigarettes Do You Dip or Chew Tobacco: No (QUIT OVER 15 YEARS AGO) Smoking End Date: Quit 15 YEARS AGO Hx Alcohol Use: Yes Alcohol type: wine alcohol intake frequency: a few times a month Hx Substance Use: No substance use type: does not use Review of Systems Patient denies chest pain, shortness of breath, cough, wheezing, palpitations. Physical Exam Vital Signs VITALS BP 110/71 P 92 TEMP 97.8 SP02 94%RA RESP 18 PHYSICAL Full neck and c-spine range of motion. Full TMJ range of motion. TMD 2 finger breaths (small chin) Mallampati Score 3 Dentition: edentulous Lungs: diminished breath sounds Cardiac: regular rate, irregular rhythm, distant heart sounds Spine: normal Carotid arteries: negative bruit Extremities: no edema Testing Laboratory Results 07/09/19 14:50 07/09/19 14:50 07/08/19 PT 25.9 PTT 44 INR 2.34 04/03/19 HGBA1C 9.4% Surgeon's office made aware of elevated glucose/hgba1c and that potential for cancellation if glucose significantly elevated AM DOS. Preop labs will be forwarded to PCP for their reference/continuity of care Electrocardiogram Date: 12/25/18 A. fib with RVR at 104bpm. iRBBB. LAFB. NS ST/TWA. Subsequent ECHO/stress test done 04/2019* Chest X-Ray Date: 07/09/19 Left subclavian pacer with leads to the right atrium and right ventricular apex. Atherosclerosis of the aortic arch. Cardiac silhouette enlarged. The regular bandlike opacities at the right lung base similar to prior exam. Minimal similar changes noted on the left. Pleural parenchymal scarring suggested with a suture margin noted at the right apex. No new focal opacity. No pleural effusion or pneumothorax. Osseous structures normal. Upper abdomen normal. IMPRESSION: Cardiomegaly. No evidence of volume overload or congestive change. Chronic bibasilar scarring more so on the right. No new focal infiltrate. Echocardiogram Date: 05/07/19 LVEF 46%. Abnormal septal wall motion consistent with RV pacemaker activation otherwise mild global HK. Moderate cLVH. Mild MR/TR. Severe biatrial enlargement. Moderately increased cLV wall thickness. Stress Test Date: 05/29/19 Type: nuclear (Lexiscan) Gated SPECT images negative for ischemia. There is a small defect of mild intensity involving the apical inferior wall. The remaining left ventricular myocardial wall segments demonstrate normal perfusion. The apical defect is not significantly changed when compared to resting images. Defect likely secondary to soft tissue attenuation artifact. No significant reversibility per quantitative analysis. LVEF 53%. 81% MPHR. Other Testing Pacer check: 06/09/19: Implanted 2017. [employer]. AP 0%. RVP 19.8%. A fib burden 100%. Battery longevity 6 years. Mode AAIR/DDDR. "Normal dual chamber pacemaker function."
--- NOTE | 2019-07-09 14:31 | PAT Medication Instructions ---
Medication Instructions Date of Service July 09, 2019 Home Medications Medication Instructions Recorded ipratropium 20 mcg-albuterol 100 1 puff INHALATION QID 30 Days #1 05/28/20 mcg/actuation mist for inhalation inhaler budesonide-formoterol HFA 160 2 puffs INH BID #10.2 gm 06/04/20 mcg-4.5 mcg/actuation aerosol inhaler Lantus Solostar U-100 Insulin 20 - 22 unit SUBCUT QAM aspirin 81 mg PO QAM fluticasone furoate 2 spray INTRANASAL DAILY PRN insulin aspart U-100 [Novolog Flexpen U-100 Insulin] 4 - 6 unit SUBCUT TID nitroglycerin [Nitrostat] 0.4 mg SUBLINGUAL UD PRN ranitidine HCl 150 mg PO BID simvastatin [Zocor] 20 mg PO QPM tamsulosin [Flomax] 0.4 mg PO HS furosemide 20 mg PO BID albuterol sulfate 0.63 mg INHALATION QID PRN metoprolol tartrate 50 mg PO BID warfarin 2.5 mg tablet 2.5 mg PO UD ipratropium 20 mcg-albuterol 100 mcg/actuation mist for inhalation 1 puff INHALATION QID budesonide-formoterol HFA 160 mcg-4.5 mcg/actuation aerosol inhaler 2 puffs INH BID benzonatate [Tessalon Perles] 100 mg PO BID PRN digoxin 0.125 mg PO 3XWK ipratropium-albuterol [Combivent Respimat] 1 puff INHALATION BID Continue as directed nitroglycerin [Nitrostat] 0.4 mg SUBLINGUAL UD PRN (if needed) digoxin 0.125 mg PO 3XWK ASK your prescriber and surgeon aspirin 81 mg PO QAM warfarin 2.5 mg tablet 2.5 mg PO UD DO NOT take the morning of surgery insulin aspart U-100 [Novolog Flexpen U-100 Insulin] 4 - 6 unit SUBCUT TID furosemide 20 mg PO BID benzonatate [Tessalon Perles] 100 mg PO BID PRN Take morning of surgery With a small sip of water, OTHERWISE NOTHING TO EAT OR DRINK AFTER MIDNIGHT: fluticasone furoate 2 spray INTRANASAL DAILY PRN (if needed) ranitidine HCl 150 mg PO BID albuterol sulfate 0.63 mg INHALATION QID PRN (use if needed; please bring with you to hospital day of surgery if possible) metoprolol tartrate 50 mg PO BID ipratropium 20 mcg-albuterol 100 mcg/actuation mist for inhalation 1 puff INHALATION QID budesonide-formoterol HFA 160 mcg-4.5 mcg/actuation aerosol inhaler 2 puffs INH BID ipratropium-albuterol [Combivent Respimat] 1 puff INHALATION BID Take evening before surgery fluticasone furoate 2 spray INTRANASAL DAILY PRN (if needed) insulin aspart U-100 [Novolog Flexpen U-100 Insulin] 4 - 6 unit SUBCUT TID ranitidine HCl 150 mg PO BID simvastatin [Zocor] 20 mg PO QPM tamsulosin [Flomax] 0.4 mg PO HS furosemide 20 mg PO BID albuterol sulfate 0.63 mg INHALATION QID PRN (if needed) metoprolol tartrate 50 mg PO BID ipratropium 20 mcg-albuterol 100 mcg/actuation mist for inhalation 1 puff INHALATION QID budesonide-formoterol HFA 160 mcg-4.5 mcg/actuation aerosol inhaler 2 puffs INH BID benzonatate [Tessalon Perles] 100 mg PO BID PRN (if needed) ipratropium-albuterol [Combivent Respimat] 1 puff INHALATION BID Insulin Dependent Diabetic Patients * Test your blood sugar the morning of surgery * If Blood Sugar is GREATER THAN 150, take HALF of your regular dose of: Lantus Solostar U-100 Insulin take 10-11 units * If Blood Sugar is LESS THAN 150, DO NOT TAKE ANY: Lantus Solostar U-100 In sulin Other Notes If you have any questions please call us at [phone] or [phone] or [phone] or [phone]
--- NOTE | 2019-07-09 15:20 | XRay Report ---
XR chest Pre-admission PA/Lat CLINICAL HISTORY: 79 years-old Male presenting with preoperative assessment. TECHNIQUE: PA and lateral views of the chest were obtained. COMPARISON: 12/31/2018. FINDINGS: Left subclavian pacer with leads to the right atrium and right ventricular apex. Atherosclerosis of t he aortic arch. Cardiac silhouette enlarged. The regular bandlike opacities at the right lung base si milar to prior exam. Minimal similar changes noted on the left. Pleural parenchymal scarring suggeste d with a suture margin noted at the right apex. No new focal opacity. No pleural effusion or pneumoth orax. Osseous structures normal. Upper abdomen normal. IMPRESSION: 1. Cardiomegaly. No evidence of volume overload or congestive change. 2. Chronic bibasilar scarring more so on the right. No new focal infiltrate. ACT 112: Negative or not required by law. Electronically signed by: Jono De Leon M.D. 07/09/2019 3:19 PM
[2019-07-09 15:26] LABS: Basophils # (auto) 0.03 K/uL (0-0.2); Basophils % (auto) 0.5 %; Eosinophils # (auto) 0.11 K/uL (0-0.5); Eosinophils % (auto) 1.8 %; Hemoglobin 10.5 g/dL (14.0-18.0); Immature Granulocytes # (auto) 0.01 K/uL (0.00-0.02); Immature Granulocytes % (auto) 0.2 %; Lymphocytes # (auto) 0.83 K/uL (1.2-3.4); Lymphocytes % (auto) 13.2 %; Mean Corpuscular Hemoglobin 28.2 pg (25-34); Mean Corpuscular Hgb Conc 30.9 g/dL (32-36); Mean Corpuscular Volume 91.4 fL (80-100); Mean Platelet Volume 10.9 fL (7.4-10.4); Monocytes # (auto) 0.64 K/uL (0.11-0.59); Monocytes % (auto) 10.2 %; Neutrophils # (auto) 4.65 K/uL (1.4-6.5); Neutrophils % (auto) 74.1 %; Platelet Count 186 K/uL (130-400); RDW Coefficient of Variation 14.4 % (11.5-14.5); RDW Standard Deviation 48.9 fL (36.4-46.3); Red Blood Count 3.72 M/uL (4.7-6.1); White Blood Count 6.27 K/uL (4.8-10.8)
[2019-07-09 16:05] LABS: BUN Creatinine Ratio 15.8 (10-20); Calcium 9.3 mg/dl (8.5-10.1); Creatinine Clr Calc Pharmacy 40.1 ml/min; Est GFR (African American) 43.5; Est GFR (Non-African American) 37.5; Potassium 4.6 mmol/L (3.5-5.1)
[2019-07-09 16:15] LABS: Beta-Hydroxybutyrate 0.88 mg/dl (0.2-2.81)
--- NOTE | 2019-07-13 19:12 | History and Physical Report ---
DATE OF ADMISSION: 07/14/2019 CHIEF COMPLAINT: Right elbow injury. HISTORY OF PRESENT ILLNESS: This is an 79-year-old male patient of Dr. Grant'stephen complaining of right elbow injury on 07/06/2019. The patient was attempting to change a light bulb in his garage while standing on a bench. He lost his balance and fell landing on his elbow. The patient was x-rayed at [facility] where he was diagnosed with a closed fracture of the olecranon process with comminution and displacement. The patient wished to proceed with open reduction, internal fixation and plate fixation of right olecranon process. PAST MEDICAL HISTORY: Irregular heartbeat, asthma, history of pulmonary embolism, chronic cough, COPD - uses oxygen, peripheral neuropathy, diabetes with insulin, abnormal bleeding and bruising, sciatica. He has dentures. SOCIAL HISTORY: Nonsmoker, nondrinker. PAST SURGICAL HISTORY: Will be provided on admission. REVIEW OF SYSTEMS: Right elbow injury. Otherwise, denies any shortness of breath, chest pain, nausea, vomiting or any other joint complaints. FAMILY HISTORY: Noncontributory. MEDICATIONS: 1. Digoxin 125 mcg on Mondays, Wednesdays, Fridays daily. 2. Doxycycline 100mg, one twice daily x10 days for COPD exacerbation. 3. Ranitidine 150 mg twice daily. 4. Flomax 0.4 mg daily. 5. Simvastatin 20 mg daily. 6. Coumadin 2.5 mg 1-1/2 tablets as directed by anticoagulation clinic. 7. Tessalon Perles 100 mg 3 times daily as needed for cough. 8. Lopressor 50 mg twice daily. 9. Nitroglycerin 0.4 mg as needed. 10. Lasix 20 mg twice daily. 11. Insulin sliding scale as needed. 12. Fluticasone 50 mcg actuation 2 sprays in each nostril as needed. 13. Xopenex 1.25 mg nebulizer as needed. 14. Ipratropium/albuterol 1 puff 4 times a day. 15. Ambien 5 mg as needed for sleep. 16. Tramadol 50 mg every 8 hours as needed. 17. Flexeril 10 mg 3 times daily. 18. Guaifenesin ER 600 mg twice daily. 19. Symbicort 160/4.5 mcg per actuation inhaler 2 puffs twice daily. 20. Atrovent 0.02% nebulizer as needed. 21. He uses oxygen 2 liters at night. 22. Aspirin 81 mg daily. ALLERGIES: LISINOPRIL. PHYSICAL EXAMINATION: GENERAL: A well-developed, well-nourished 79-year-old male, in no acute distress. He is alert and oriented x3 and pleasant. HEENT: Normocephalic, atraumatic. Extraocular motions are intact. Pupils are equal and reactive to light. HEART: Irregular rate and rhythm, no murmurs appreciated. LUNGS: Clear. ABDOMEN: Soft, nontender, bowel sounds present. EXTREMITIES: Right elbow positive ecchymosis, positive swelling over the olecranon area. He has painful range of motion. Strength was deferred due to his injury. Neurologically and neurovascularly, he is intact in his right upper extremity. DIAGNOSES: Right elbow olecranon comminuted and displaced fractures. He has a history of irregular heartbeat, asthma, pulmonary embolism, chronic cough, chronic obstructive pulmonary disease, use of oxygen, peripheral neuropathy, diabetes with insulin, abnormal bleeding or bruising, sciatica, dentures. PLAN: The patient was advised of his diagnosis. Indications, risks, benefits, postop course have all been reviewed. The patient wished to proceed with a right elbow ORIF of the olecranon process with plate and screw fixation. Necessary consent forms, preoperative testing and clearances will be obtained. ALBERT
[~2019-07-14 11:47] MED LIST changes: -ASPI-320 PO; +CEFAZOLIN 2000MG 2,000 MG/15 ML SYR IV SCH; -CZR50 PO; -FINA5TAB4 PO; -FLNIN/ NAE; -FURO-85 PO; -IPRA1AER2 PO; -IPRASOL4 INH; -LNX125 PO; +LR 15ML/HR IV SCH; -LVMI SQ; -METO50TA16 PO; -MOME200A INH; -NITR0.4S UT; -NVLGI/PEN SQ; -PRED-301 PO; -RANI150T2 PO; -SIMV20TA2 PO; -SPRIN/30 INH; -TAMS0.4C38 PO; -WARF2.5T8 PO; -XPNINS1255 INH; -ZOLP5TAB PO
[2019-07-14] MEDS ORDERED: BUPIVACAINE/EPINEPHRINE 0.25% 1:200,000 30 ML VIAL ONE (11:58)
[2019-07-14] MEDS ORDERED: DEXAMETHASONE SOD INJ 4 MG/ML VIAL ONE (11:59)
--- NOTE | 2019-07-14 12:10 | History & Physical Bridge Note ---
Date of Service July 14, 2019 History & Physical Bridge Note I have examined the patient, reviewed the History & Physical and in the interval since the performance of the History & Physical I have noted the following changes of clinical significance: no changes noted
[2019-07-14] MEDS ORDERED: INSULIN ASPART 100 UNITS/ML 3 ML PEN SC STA (12:22)
[2019-07-14] MEDS ORDERED: MIDAZOLAM HCL 1 MG/ML 2ML VIAL ONE (12:25)
[2019-07-14] MEDS ORDERED: fentaNYL citrate 100 MCG/2 ML VIAL ONE (12:26)
[2019-07-14 12:28] LABS: Partial Thromboplastin Ratio 1.1; Partial Thromboplastin Time 30.7 Seconds (21.0-31.0)
[2019-07-14] MEDS ORDERED: INSULIN ASPART PER UNIT SC STA (12:29)
[2019-07-14] MEDS ORDERED: BUPIVACAINE 0.5 % 5 MG/1 ML MPF 30ML VIAL ONE (12:40)
[2019-07-14] MEDS ORDERED: ePHEDrine sulfate 50 MG/ML AMP IV PRN (17:03)
[2019-07-14] MEDS ORDERED: ONDANSETRON INJ 2 MG/ML 2 ML VIAL IV PRN ×2 (17:03→19:23)
[2019-07-14] MEDS ORDERED: fentaNYL citrate 100 MCG/2 ML VIAL IV PRN (17:03)
[2019-07-14] MEDS ORDERED: ATROPINE SULFATE 0.1 MG/ML 10ML SYR IV PRN (17:03)
--- NOTE | 2019-07-14 17:38 | Fluoroscopy Report ---
INTRAOPERATIVE RADIOGRAPHS CLINICAL HISTORY: Open reduction and internal fixation of the right olecranon. Fluoroscopy time: 103 seconds. FINDINGS: 6 spot fluoroscopic views of the right elbow are correlated with radiographs dated 07/06/2019 . There has been buttress plate fixation of a comminuted fracture through the olecranon process with religious of near-anatomic alignment. Numerous cortical lag screws transfix the buttress plate. The orthopedic hardware appears intact. Overlying soft tissue edema is noted. IMPRESSION: Intraoperative images from open reduction and internal fixation of the right olecranon pr ocess as above. Electronically signed by: Arturo Charles M.D. 07/14/2019 5:37 PM
--- NOTE | 2019-07-14 17:38 | Fluoroscopy Report ---
INTRAOPERATIVE RADIOGRAPHS CLINICAL HISTORY: Open reduction and internal fixation of the right olecranon. Fluoroscopy time: 103 seconds. FINDINGS: 6 spot fluoroscopic views of the right elbow are correlated with radiographs dated 07/06/2019 . There has been buttress plate fixation of a comminuted fracture through the olecranon process with caodaism of near-anatomic alignment. Numerous cortical lag screws transfix the buttress plate. The orthopedic hardware appears intact. Overlying soft tissue edema is noted. IMPRESSION: Intraoperative images from open reduction and internal fixation of the right olecranon pr ocess as above. Electronically signed by: Arturo Charles M.D. 07/14/2019 5:37 PM
--- NOTE | 2019-07-14 17:44 | Post Operative Brief Note ---
Immediate Post Op Note v1 Date of Surgery July 14, 2019 Pre & Post Diagnosis Operation Date: 07/14/19 14:30 Pre-Op Diagnosis: Right Elbow displaced comminuted olecranon fracture superficial healing abrasions history of anticoagulation Post-Op Diagnosis: Same I identified the patient and participated in the time-out.: Yes Procedure Operation Date: 07/14/19 14:30 Actual Procedures p Right Elbow Olecrannon Fracture Open Reduction Internal Fixation(Right) - Mark Grant MD Surgeon Mark Grant MD [employer] Dean DIAZ Estimated Blood Loss 5 Findings Consistent with Post-Op Diagnosis Anesthesia Type General Regional Complications none Disposition Accompanied Patient To Recovery: No Disposition: Recovery Room Overlapping Procedure I was immediately available: during the entire case.
[2019-07-14] MEDS ORDERED: ONDANSETRON INJ 2 MG/ML 2 ML VIAL ONE (17:56)
[2019-07-14] MEDS ORDERED: PROPOFOL IV EMULSION 10 MG/ML 20 ML VIAL IV ONE (17:56)
[2019-07-14] MEDS ORDERED: PHENYLEPHRINE HCL 10 MG/ML VIAL ONE (17:56)
[2019-07-14] MEDS ORDERED: NALOXONE HCL 0.4 MG/1 ML VIAL/CARP IV PRN (19:23)
[2019-07-14] MEDS ORDERED: NITROGLYCERIN SL 0.4 MG/TAB TAB SL PRN (19:23)
[2019-07-14] MEDS ORDERED: HYDROmorphone INJ 0.5 MG/0.5 ML SYR IV PRN (19:23)
[2019-07-14] MEDS ORDERED: OXYCODONE HCL IR 5 MG TAB (IMMEDIATE RELEASE) PO PRN (19:23)
[2019-07-14] MEDS ORDERED: SODIUM CHLORIDE 0.9% 1000ML 1,000 ML IV SCH (19:23)
[2019-07-14] MEDS ORDERED: MAGNESIUM HYDROXIDE SUSP 30 ML UDC PO PRN (19:23)
[2019-07-14] MEDS ORDERED: BENZONATATE 100 MG CAPSULE PO PRN (19:23)
[2019-07-14] MEDS ORDERED: FLUTICASONE PROPIONATE NA SPR 16 GM BTL PRN (19:35)
[2019-07-14] MEDS ORDERED: PHARMACY GLYCEMIC MGMT CONSULT PRN (19:38)
[2019-07-14] MEDS ORDERED: ALBUTEROL 0.083% NEBU SOLN 3 ML VIAL INH PRN (19:44)
[2019-07-14] MEDS ORDERED: SODIUM CHLORIDE 0.9% 500 ML IV ONE (20:11)
[2019-07-14] MEDS ORDERED: GLUCAGON FOR INJ 1 MG VIAL SQ PRN (20:15)
[2019-07-14] MEDS ORDERED: CARBOHYDRATES FOR HYPOGLYCEMIA PO PRN (20:15)
[2019-07-14] MEDS ORDERED: GLUCOSE 10 TABS/TUBE PO PRN (20:15)
[2019-07-14] MEDS ORDERED: GLUCOSE 40% GEL 15 GM TUBE PO PRN (20:15)
[2019-07-14] MEDS ORDERED: DEXTROSE 50% 50 ML SYRINGE IV PRN (20:15)
[2019-07-14] MEDS: INSULIN ASPART 100 UNITS/ML 3 ML PEN SC SCH (20:53)
[2019-07-14] MEDS: DOCUSATE SODIUM 100 MG CAP PO SCH (20:55)
[2019-07-14 20:56] LABS: Calcium 9.1 mg/dl (8.5-10.1); Creatinine Clr Calc Pharmacy 45.7 ml/min; Est GFR (African American) 50.3; Est GFR (Non-African American) 43.4; Potassium 4.8 mmol/L (3.5-5.1)
[2019-07-14] MEDS: ACETAMINOPHEN 500 MG TAB PO SCH (20:57)
[2019-07-14] MEDS: BUDESONIDE/FORMOTEROL FUMARATE 160/4.5 60 PUFFS/INHALER INH SCH (20:59)
[2019-07-14] MEDS ORDERED: METOPROLOL TARTRATE 50 MG TAB PO SCH (21:00)
[2019-07-14] MEDS ORDERED: BUDESONIDE/FORMOTEROL FUMARATE 160/4.5 60 PUFFS/INHALER INH SCH (21:00)
[2019-07-14] MEDS ORDERED: FUROSEMIDE 20 MG TAB PO SCH (21:00)
[2019-07-14] MEDS ORDERED: IPRATROPIUM BROMIDE/ALBUTEROL respimat INH INH SCH (21:00)
[2019-07-14] MEDS ORDERED: TAMSULOSIN HCL 0.4 MG CAP PO SCH (21:00)
[2019-07-14] MEDS ORDERED: SENNA 8.6 MG TAB PO SCH (21:00)
[2019-07-14] MEDS ORDERED: SIMVASTATIN 20 MG TAB PO SCH (21:00)
--- NOTE | 2019-07-14 21:10 | Operative Report (OR) ---
DATE OF OPERATION: 07/14/2019 INDICATION FOR PROCEDURE: The patient is an 79-year-old male who had a fall and fractured his right elbow. This was complicated by being on anticoagulants and he had some superficial abrasions over the posterior elbow. These were cleansed in the office setting and sterile dressings were applied and the patient was placed on Keflex. His Coumadin was stopped and we had to allow for this to correct the INR to a level that we could operate. Radiographs demonstrate a displaced proximal retracted comminuted olecranon fracture. PREOPERATIVE DIAGNOSIS: Comminuted displaced right elbow olecranon fracture complicated by anticoagulants and superficial abrasions. POSTOPERATIVE DIAGNOSES: Comminuted displaced right elbow olecranon fracture complicated by anticoagulants and superficial abrasions, probable nondisplaced intercondylar fracture adjacent to the capitellum. PROCEDURE: Open reduction internal fixation with Synthes olecranon locking plate. SURGEON: Mark Grant MD VALET RUNNER: JOE Pete ANESTHESIA: Regional block and general. ESTIMATED BLOOD LOSS: 5 mL. COMPLICATIONS: None. SPECIMENS: None. OPERATIVE PROCEDURE: The patient was taken to the operating room, anesthetized under general anesthetic. He had regional block. Placed preop. He was placed in a semilateral decubitus position just elevating about 40 degrees with beanbag and all extremities well padded, so that we could access the elbow posteriorly. Took down his splints and inspected his wounds. There were no signs of infection. He had marked ecchymosis from the humerus down to the wrist and some chronic thickening and swelling of the skin with discoloration from the bleeding. The abrasions looked quite. They are healed quite well. There is no sign of infection. Pneumatic tourniquet was placed about his right upper arm high, so we could access the entire posterior elbow. We used a Betadine scrub and Betadine paint for our prep. The arm was elevated, exsanguinated with Esmarch bandage. Pneumatic tourniquet was raised to 250 mmHg. A curvilinear incision was made with a slight curve across the posterior olecranon to take any pressure directly off of the plate at the tip of the plate area. Skin was incised sharply. Subcutaneous flaps were elevated. The fracture was identified. There was too large proximal fragment with a large spike, but a separate larger olecranon fragment. There were several smaller fragments toward the medial side, 1 attached to the fascia which was displaced and several smaller fragments that were removed and saved for later placing back into the olecranon at the end of the procedure. The fascia was divided longitudinally over the subcutaneous border of the olecranon distal to the fracture, so we could place a plate over that area. We used a periosteal elevator to subperiosteally elevate off the fascia. I used scalpel to remove any soft tissue from the very edge of the fracture fragments, so we could mccormick in all the multiple fracture fragments. The joint was copiously irrigated out. There was a line between the capitellum and trochlea suggesting possibly also a nondisplaced capitellar fracture, but on stressing this, there was no movement of this at all. The joint was copiously irrigated out of all old hemarthrosis from the fracture. A gentle curetting of the edges of the fracture was performed so we could mccormick in the fracture anatomically. The fracture fragment was then reduced using a bone clamp on the fine tip to hold the proximal 2 large fragments together and then we reduced proximal to the distal fragment using a Vicryl suture in the triceps tendon in order to place traction on the triceps and then placed the Synthes olecranon locking plate over the posterior elbow to hold this in place and we placed a provisional K-wire obliquely through the posterior hole and a 3.5 cortical screw distally to hold the plate to the olecranon. Then, we checked fluoroscopy views to look for acceptability reduction, which was acceptable. At this point, we went ahead and first placed another cortical screw through the posterior plate longitudinally down the shaft and then subsequently placed multiple locking screws across the fracture site using fluoroscopic guidance to place screws in appropriate position. Then, we had to replace the cortical screw for a locking screw as the tip was a bit prominent and we did not get as good as bite of the locking screws and then after replacing the locking screw there that was satisfactory. I placed 1 more locking screw distally and then took the elbow through range of motion, check fluoroscopy to make sure all screw alignment was satisfactory and the joint was aligned satisfactorily. There was a stable range of motion with a solid fixation of the plate. Toward the medial side, there was a comminuted fragment that had to drill a hole through the lateral olecranon placed a suture through the olecranon around this fracture fragment which was still attached to some fascia medially and then sutured this to the remainder of the olecranon in the plate. And before we did that in the final reduction, we placed the other fragments of bone and has bone graft below that fracture fragment. This completed the reduction. The distal fascia was then repaired with interrupted [id number] #1 Vicryl sutures. The subcutaneous tissue was closed with 2-0 Vicryl sutures, skin closed with interrupted 4-0 nylon vertical mattress sutures. Sterile dressings were applied including Xeroform over the old healing abrasions and over the new surgical site. Then, sterile Webril was applied and then a posterior splint was applied in 90 degrees in neutral position. The patient tolerated the procedure well. I attest to the content of the Intraoperative Record and any orders documented therein. Any exceptions are noted below. ALBERT
--- NOTE | 2019-07-14 21:27 | Consultation ---
Date of Consultation July 14, 2019 Assessment & Plan (1) Closed olecranon fracture: Status post ORIF right olecranon 2/[address] Grant POD #0 EBL 5 ml Patient tolerated the procedure well Pain/wound management per Ortho Activity and therapy as directed by Ortho Encourage incentive spirometer Monitor H&H DVT prophylaxis per primary -resume Coumadin tomorrow per Ortho (2) Diabetes type I: Poorly controlled, last A1c 03/2019 9.4 Glycemic pharmacist consult placed, appreciate their input Recommend stricter control given other comorbidities (3) Permanent atrial fibrillation: Recent pacemaker interrogation revealed 100% burden of atrial fibrillation Currently on metoprolol and digoxin Anticoagulated on warfarin, home regimen of 2.5 mg Sunday and 1.25 mg all other days To resume Coumadin tomorrow per surgery (4) Chronic diastolic heart failure: Weight 94.8 kg Monitor daily weight, strict I's and O's Continue metoprolol, Lasix, digoxin Heart healthy low-sodium diet (5) 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 Recently interrogated 06/19 (6) COPD (chronic obstructive pulmonary disease): With chronic respiratory failure on 2 L of O2 at at bedtime Continue Symbicort, Combivent, albuterol Add flutter valve and encourage incentive spirometry Patient also with history of bronchiectasis and asbestos pneumoconiosis (7) Hypertension: Blood pressure controlled On metoprolol and Lasix (8) CKD (chronic kidney disease) stage 3, GFR 30-59 ml/min: BUN/creatinine stable at 24 and 1.49 Baseline creatinine 1.6 Monitor (9) BPH (benign prostatic hypertrophy): Continue Flomax (10) DVT prophylaxis: Warfarin per primary Disposition: Per primary Follow-up: PCP Dr. Monte up on discharge Patient was seen and examined in collaboration with Dr. Tristan, please see addendum Thank you for this consultation. We will follow the patient with you during their hospital stay. You can reach a member of the [facility] Hospitalist Team 20/11 via pager @ [phone]. Supervising Physician Co-Signing Physician Notes Final Assessment and Recommendations as follows : Traumatic R olecranon fracture status post surgery Patient currently comfortable Chronic systolic heart failure, EF 46%, TTE 2018, patient euvolemic chronic respiratory failure secondary to COPD on home O2 at night, pulmonary status at baseline hypertension, slightly elevated AF, hx SSS sp PPM, rate slightly elevated post procedure. INR subtherapeutic due to preop Coumadin hold DM 1, suboptimal control as of recent outpatient hemoglobin A1c of 9.02 April 2019 CRI, creatinine at baseline Acute on chronic anemia, hemoglobin drop from baseline of 12 past tobacco abuse Gentle bolus of IV hydration given history systolic dysfunction Resume home diuretic in a.m. if creatinine remains stable Facilitate home beta-chiquita, may need titration Agree with resumption of Coumadin in a.m. if hemoglobin stable Pharmacy glycemic control consult for sugar management as requested by primary service earlier DVT prophylaxis. Agree with SCDs while Coumadin on hold and INR subtherapeutic Thank you very much for this consultation. Dr. Kenyon will follow patient's progress. Text document was generated using [employer] voice recognition software. It may contain grammatical or spelling errors. Kindly contact undersigned for clarification of any documentation item in question. History of Present Illness Requesting Physician: Dr. Grant Reason for Consultation: Postop medical management Attending Physician: Mark Grnat MD History of Present Illness This is an 79-year-old male with significant past medical history of type I DM, diabetic nephropathy with CKD stage III, chronic respiratory failure secondary to COPD on 2 L of O2 at at bedtime, bronchiectasis, asbestos pneumoconiosis, HTN, HLD, PAF anticoagulated on warfarin, history of TBS status post PPM, BPH, pacemaker in situ who presents to [facility] for elective right elbow surgery. Patient unfortunately sustained a fall from workbench when he was trying to change a light bulb about 8 feet. When he fell he fell on his right side hurting his right elbow. He sustained a right olecranon fracture which required him to undergo elective ORIF of right olecranon today by Dr. Grant. He tolerated the procedure well. He is currently seen and evaluated while in room 382 bed 2. Since procedure he has had a moist cough but unable to expectorate. Overall his appetite is good and he ate all of his dinner. He denies any fever, chills, sweats, lightheadedness, dizziness, chest pain, shortness of breath at rest, nausea, vomiting, abdominal pain. Prior to procedure he denies any difficulty moving bowels or passing urine. His last BM was yesterday. Nurse was at bedside who denies any acute complaints or concerns. Patient has multiple comorbidities. He has history of PAF anticoagulated on warfarin and rate and rhythm controlled on metoprolol and digoxin. He takes Coumadin 2.5 mg Sunday and 1.25 mg all other days. He currently has been off Coumadin for upcoming procedure. He recently underwent pacemaker interrogation on 06/11 secondary to history of tachybradycardia syndrome. It did reveal he has 100% burden of his atrial fibrillation. He does have insulin-dependent type 1 diabetes that is poorly controlled. His last A1c was 9.4 on 04/03/2019. He said his blood sugar this morning was in the 300s. He has history of chronic diastolic CHF. He underwent nuclear stress test on 05/29/2019 which revealed LVEF 53% with no wall motion abnormality or inducible ischemia. Allergies Allergy/AdvReac Type Severity Reaction Status Date / Time diltiazem Allergy Mild rash Verified 07/14/19 12:31 fluticasone furoate AdvReac Intermediate Joint Pain Verified 07/14/19 12:31 [From Breo Ellipta] vilanterol AdvReac Intermediate Joint Pain Verified 07/14/19 12:31 [From Breo Ellipta] aspirin AdvReac Mild GI symptoms Verified 07/14/19 12:31 lisinopril AdvReac Mild cough Verified 07/14/19 12:31 propoxyphene AdvReac Mild GI upset, Verified 07/14/19 12:31 diarrhea Home Medications Home Medications Medication Instructions Recorded Confirmed Type Lantus Solostar U-100 Insulin 20 - 22 unit SUBCUT QAM 07/03/18 07/14/19 History aspirin 81 mg PO QAM 07/03/18 07/14/19 History fluticasone furoate [Flonase 2 spray INTRANASAL DAILY PRN 07/03/18 07/14/19 History Sensimist] insulin aspart U-100 [Novolog 4 - 6 unit SUBCUT TID 07/03/18 07/14/19 History Flexpen U-100 Insulin] nitroglycerin [Nitrostat] 0.4 mg SUBLINGUAL UD PRN 07/03/18 07/14/19 History ranitidine HCl [Zantac] 150 mg PO BID 07/03/18 07/14/19 History simvastatin [Zocor] 20 mg PO QPM 07/03/18 07/14/19 History tamsulosin [Flomax] 0.4 mg PO HS 07/03/18 07/14/19 History furosemide [Lasix] 20 mg PO BID 11/27/18 07/14/19 History albuterol sulfate 0.63 mg INHALATION QID PRN 12/21/18 07/14/19 History metoprolol tartrate 50 mg PO BID 12/25/18 07/14/19 History warfarin 2.5 mg tablet 2.5 mg PO UD 01/10/19 07/14/19 History ipratropium 20 mcg-albuterol 100 1 puff INHALATION QID 30 Days #1 05/28/19 07/14/19 Rx mcg/actuation mist for inhalation inhaler budesonide-formoterol HFA 160 2 puffs INH BID #10.2 gm 06/04/19 07/14/19 Rx mcg-4.5 mcg/actuation aerosol inhaler benzonatate [Tessalon Perles] 100 mg PO BID PRN 07/08/19 07/14/19 History digoxin 0.125 mg PO 3XWK 07/08/19 07/14/19 History Patient History Medical History Anemia felt d/t chronic disease, hgb baseline 10-12 range per chart review Atrial fibrillation paroxysmal- on coumadin BPH (benign prostatic hypertrophy) CKD (chronic kidney disease) stage 3, GFR 30-59 ml/min COPD (chronic obstructive pulmonary disease) Diabetes type I Dyslipidemia per records Elbow fracture, right current issue s/p fall at home GERD (gastroesophageal reflux disease) r/t inhalers Interstitial lung disease Nocturnal hypoxemia 2L O2 HS 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)/last check 06/09/19 Pulmonary embolism remote hx Skin cancer left elbow region Surgical History H/O basal cell carcinoma excision (Chronic) REMOVED FROM NOSE H/O hand surgery LEFT MIDDLE FINGER FX REPAIR H/O inguinal hernia repair (Chronic) H/O nasal polypectomy (Chronic) History of bronchoscopy History of cataract surgery RT/LEFT History of colonoscopy History of inguinal hernia repair History of lung biopsy robotic thoracoscopy, pleural biopsy: 08/09/16: Grade view 1, MAC#3 at [facility] History of surgery of head "correct skull abnormality- left temporoparietal ; 1992" History of tooth extraction Status post placement of cardiac pacemaker (Inactive) Family History Brother Diabetes Son Diabetes Family hx of colon cancer Other Heart disease Social History Preferred Language: Kazakh Communication Ability: Effective Usability Specialist Required: No Beliefs That Will Affect Care: None marital status: Current Living Situation: Spouse Current Living Situation Comment: at home Other Information That Helps Us Care for You: No Feels Safe at Home: Yes Safety Concerns: Feels Safe At This Time Smoking Status: Former smoker Tobacco Type: cigarettes ; Do You Dip or Chew Tobacco: No (QUIT OVER 15 YEARS AGO) ; Smoking End Date: Quit 15 YEARS AGO ; Second Hand Exposure: No ; Tobacco Cessation Education Requested by Patient: No Hx Alcohol Use: Yes Alcohol type: wine Hx Substance Use: No Review of Systems Review of Systems: All systems reviewed & are unremarkable except as noted in HPI & below Physical Exam Physical Exam: Constitutional: WD/WN, elderly, male, appears stated age, vitals as above, NAD, sitting up in bed, pleasant, conversing easily Head: Normocephalic, Atraumatic Eyes: PERRL, conjunctivae normal, anicteric sclerae ENMT: external ear and nose normal, oropharynx normal Neck: trachea midline, no thyromegaly normal visual inspection Respiratory: Patient with moist cough throughout exam. He had diffuse inspiratory and expiratory rhonchi throughout the did not clear with coughing. Normal respiratory effort no wheeze or rales. normal insp/exp effort, no accessory muscle use Cardiovascular: Irr/Irr, no murmur auscultated but distant heart sounds secondary to rhonchi and coughing, no edema Vessels: no JVD or carotid bruit Chest: normal inspection of chest Abdomen: normal bowel sounds, soft, nontender, no hepatosplenomegaly Musculoskeletal: no cyanosis or clubbing, RUE in sling with dressing CDI, NVI distally Skin: Patient with bilateral upper extremity dorsal ecchymoses, no rashes, warm and dry moderate turgor Neurologic: PERRL, EOMI, accommodation nl, no face palsy, no dysarthria CN's II-XI intact bilaterally and moves all extremities Psychiatric: A+Ox3, euthymic affect Lymphatic: no cervical or axillary lymphadenopathy : deferred Results & Data ([place]) Vital Signs (Past 12 Hours) Vital Signs Temp Pulse Pulse Resp BP Pulse Ox 07/14/19 20:25 108 H 18 126/72 97 07/14/19 19:53 37 C 101 H 20 140/68 98 07/14/19 19:23 36.8 C 98 H 22 121/75 98 07/14/19 19:00 88 18 112/81 97 07/14/19 18:50 78 16 133/81 98 07/14/19 18:40 36.4 C L 87 18 130/91 97 07/14/19 18:30 88 20 126/72 96 07/14/19 18:20 82 18 129/75 97 07/14/19 18:10 86 17 122/68 96 07/14/19 18:01 36 C L 90 17 124/78 97 07/14/19 12:45 36.5 C 97 H 18 145/83 H 95 Laboratory Results Short CBC 07/09/19 07/14/19 Range/Units 14:50 20:24 Creatinine 1.68 H 1.49 H (0.6-1.4) mg/dl BMP 07/14/19 20:24 Sodium 139 Potassium 4.8 Chloride 105 Carbon Dioxide 31 BUN 24 H Creatinine 1.49 H Glucose 224 H Calcium 9.1 Diagnostic Findings CXR: MPRESSION: 1. Cardiomegaly. No evidence of volume overload or congestive change. 2. Chronic bibasilar scarring more so on the right. No new focal infiltrate. Elbow Xray: IMPRESSION: Intraoperative images from open reduction and internal fixation of the right olecranon process as above. Medications Administered Acetaminophen (Tylenol) 1,000 mg PO Q8 RASHEL Stop: 08/13/19 21:59 Last Admin: 07/14/19 20:57 Dose: 1,000 mg Documented by: [id number] Albuterol (Combivent Respimat) 1 puffs INH QID RASHEL Stop: 08/13/19 20:59 Last Admin: 07/14/19 20:58 Dose: 1 puffs Documented by: [id number] Benzonatate (Tessalon Perle) 100 mg PO BID PRN PRN Reason: Cough Stop: 08/13/19 19:22 Last Admin: 07/14/19 21:03 Dose: 100 mg Documented by: [id number] Budesonide/Formoterol Fumarate (Symbicort 160mcg/4.5mcg) 2 puffs INH BID RASHEL Stop: 08/13/19 20:59 Last Admin: 07/14/19 20:59 Dose: 2 puffs Documented by: [id number] Docusate Sodium (Colace) 100 mg PO BID RASHEL Stop: 08/13/19 20:59 Last Admin: 07/14/19 20:55 Dose: 100 mg Documented by: [id number] Hydromorphone HCl (Dilaudid) 0.25 mg IV Q4H PRN PRN Reason: Pain or Pre PT Stop: 07/28/19 19:22 Last Admin: 07/14/19 21:04 Dose: 0.25 mg Documented by: [id number] Sodium Chloride (Nss) 500 mls @ 50 mls/hr IV .Q10H ONE Stop: 07/15/19 06:10 Last Admin: 07/14/19 20:37 Dose: 50 mls/hr Documented by: [id number] Insulin Aspart (Novolog Flexpen) 0 units SC ACHS RASHEL Stop: 08/13/19 20:59 Last Admin: 07/14/19 20:53 Dose: 8 units Documented by: [id number] Cosigned by: [id number] Metoprolol Tartrate (Lopressor) 50 mg PO BID RASHEL Stop: 08/13/19 20:59 Last Admin: 07/14/19 20:56 Dose: 50 mg Documented by: [id number] Sennosides (Senokot) 17.2 mg PO HS RASHEL Stop: 08/13/19 20:59 Last Admin: 07/14/19 20:56 Dose: 17.2 mg Documented by: [id number] Simvastatin (Zocor) 20 mg PO QPM RASHEL Stop: 08/13/19 20:59 Last Admin: 07/14/19 20:57 Dose: 20 mg Documented by: [id number] Tamsulosin HCl (Flomax) 0.4 mg PO HS RASHEL Stop: 08/13/19 20:59 Last Admin: 07/14/19 20:55 Dose: 0.4 mg Documented by: [id number] Discontinued Medications Bupivacaine HCl (Marcaine 0.5% Mpf) Confirm Administered Dose 30 ml .ROUTE .STK- MED ONE Stop: 07/14/19 12:41 Last Admin: 07/14/19 17:33 Dose: Not Given Documented by: [id number] Lactated Ringer's (Lr) 1,000 mls @ 15 mls/hr IV .Q24H RASHEL Stop: 07/15/19 05:59 Last Infusion: 07/14/19 14:59 Dose: 0 mls/hr Documented by: [id number] Admin: 07/14/19 12:14 Dose: 15 mls/hr Documented by: [id number] Cefazolin Sodium (Ancef 2000mg) 2,000 mg in 15 mls @ 3.75 mls/min IV PREOP RASHEL; Protocol Stop: 07/14/19 18:00 Last Admin: 07/14/19 14:59 Dose: 3.75 mls/min Documented by: [id number] Sodium Chloride (Nss 1000ml) 1,000 mls @ 100 mls/hr IV .Q10H RASHEL Stop: 07/15/19 06:00 Last Infusion: 07/14/19 20:38 Dose: 0 mls/hr Documented by: [id number] Admin: 07/14/19 19:51 Dose: 100 mls/hr Documented by: [id number] Insulin Aspart (Novolog Per Unit) 12 units SC NOW STA Stop: 07/14/19 12:30 Last Admin: 07/14/19 12:43 Dose: 12 units Documented by: [id number] Cosigned by: [id number] ECG Rate (beats per minute): 104 Rhythm: atrial fibrillation Findings: + LAFB (1) Closed olecranon fracture Encounter type: initial encounter Laterality: right Qualified Code(s): S52.021A - Displaced fracture of olecranon process without intraarticular extension of right ulna, initial encounter for closed fracture
[2019-07-14] MEDS: CEFAZOLIN 2000MG 2,000 MG/15 ML SYR IV SCH (21:59)
--- NOTE | 2019-07-14 22:19 | Anesthesiology Progress Note ---
Date of Service July 14, 2019 Anesthesia Post Procedure Vital Signs Vital Signs: Temp Pulse Pulse Resp BP Pulse Ox 07/14/19 21:20 36.5 C 105 H 18 145/68 H 97 07/14/19 20:25 108 H 18 126/72 97 07/14/19 19:53 37 C 101 H 20 140/68 98 07/14/19 19:23 36.8 C 98 H 22 121/75 98 07/14/19 19:00 88 18 112/81 97 07/14/19 18:50 78 16 133/81 98 07/14/19 18:40 36.4 C L 87 18 130/91 97 07/14/19 18:30 88 20 126/72 96 07/14/19 18:20 82 18 129/75 97 07/14/19 18:10 86 17 122/68 96 07/14/19 18:01 36 C L 90 17 124/78 97 07/14/19 12:45 36.5 C 97 H 18 145/83 H 95 Pain Intensity Right Elbow: Pain Intensity: 2 Transfer of Care Handoff Completed per policy Notes Mental Status: alert / awake / arousable and participated in evaluation Patient Amnestic to Procedure: Yes Nausea / Vomiting: adequately controlled Pain: adequately controlled Airway Patency, RR, SpO2: stable & adequate BP & HR: stable & adequate Hydration State: stable & adequate Anesthetic Complications: no major complications apparent and Pt Satisfied with anesthetic care
[2019-07-14] MEDS ORDERED: METOPROLOL TARTRATE 25 MG TAB PO STA (23:37)
[2019-07-15] MEDS ORDERED: XOPENEX/ATROVENT 1.25mg/0.5MG NEB COMBO NEB SCH (01:00)
[2019-07-15] MEDS: IPRATROPIUM BROMIDE NEB SOLN 0.02% 2.5 ML VIAL INH SCH ×2 (01:06→07:36)
[2019-07-15] MEDS: LEVALBUTEROL 1.25MG/0.5ML NEB INH SCH ×2 (01:06→07:36)
[2019-07-15] MEDS ORDERED: INSULIN ASPART 100 UNITS/ML 3 ML PEN SC ONE ×2 (02:00→02:15)
[2019-07-15] MEDS ORDERED: INSULIN HUMAN REGULAR PER UNIT 4 UNITS in SYRINGE 3.96 ML IV ONE (02:15)
[2019-07-15] MEDS ORDERED: METOPROLOL TARTRATE 50 MG TAB PO SCH (05:30)
[2019-07-15 06:06] LABS: Estimated Average Glucose 220 mg/dl; Hemoglobin A1C 9.3 % (4.5-5.6)
[2019-07-15] MEDS: CEFAZOLIN 2000MG 2,000 MG/15 ML SYR IV SCH (06:23)
[2019-07-15] MEDS: ACETAMINOPHEN 500 MG TAB PO SCH (06:23)
[2019-07-15 07:08] LABS: Hematocrit (blood only) 33.3 % (42-52); Hemoglobin 10.3 g/dL (14.0-18.0); Mean Corpuscular Hemoglobin 28.7 pg (25-34); Mean Corpuscular Hgb Conc 30.9 g/dL (32-36); Mean Corpuscular Volume 92.8 fL (80-100); Mean Platelet Volume 10.2 fL (7.4-10.4); Platelet Count 210 K/uL (130-400); RDW Coefficient of Variation 14.2 % (11.5-14.5); RDW Standard Deviation 48.1 fL (36.4-46.3); Red Blood Count 3.59 M/uL (4.7-6.1); White Blood Count 10.45 K/uL (4.8-10.8)
[2019-07-15 07:41] LABS: Calcium 9.1 mg/dl (8.5-10.1); Creatinine Clr Calc Pharmacy 43.1 ml/min; Est GFR (African American) 47.9; Est GFR (Non-African American) 41.4; Potassium 4.6 mmol/L (3.5-5.1)
[2019-07-15] MEDS: DOCUSATE SODIUM 100 MG CAP PO SCH (08:52)
[2019-07-15] MEDS: BUDESONIDE/FORMOTEROL FUMARATE 160/4.5 60 PUFFS/INHALER INH SCH (08:54)
[2019-07-15] MEDS ORDERED: ASPIRIN 81 MG ECTAB PO SCH (09:00)
[2019-07-15] MEDS ORDERED: LEVALBUTEROL TARTRATE 15 GM HFA.AER.AD INH SCH (09:00)
[2019-07-15] MEDS: INSULIN ASPART 100 UNITS/ML 3 ML PEN SC SCH (09:00)
[2019-07-15] MEDS ORDERED: IPRATROPIUM BROMIDE HFA INHALER INH SCH (09:00)
[2019-07-15] MEDS ORDERED: MULTIVITAMIN TAB PO SCH (09:00)
[2019-07-15] MEDS ORDERED: INSULIN GLARGINE SOLOSTAR 100 UNITS/ML 3 ML PEN SC SCH (09:00)
--- NOTE | 2019-07-15 09:33 | Anesthesiology Progress Note ---
Date of Service July 15, 2019 Anesthesia Post Procedure Vital Signs Vital Signs: Temp Pulse Pulse Resp BP Pulse Ox 07/15/19 08:32 36.8 C 85 18 141/73 H 99 07/15/19 07:39 88 18 99 07/15/19 06:32 128/74 07/15/19 02:41 36.6 C 98 H 18 146/83 H 98 07/15/19 01:08 84 16 97 07/15/19 00:12 104 H 139/83 07/14/19 23:15 109 H 07/14/19 23:14 36.9 C 102 H 16 158/82 H 97 07/14/19 22:20 36.8 C 97 H 18 145/89 H 97 07/14/19 22:10 88 18 98 07/14/19 21:20 36.5 C 105 H 18 145/68 H 97 07/14/19 20:25 108 H 18 126/72 97 07/14/19 19:53 37 C 101 H 20 140/68 98 07/14/19 19:23 36.8 C 98 H 22 121/75 98 07/14/19 19:00 88 18 112/81 97 07/14/19 18:50 78 16 133/81 98 07/14/19 18:40 36.4 C L 87 18 130/91 97 07/14/19 18:30 88 20 126/72 96 07/14/19 18:20 82 18 129/75 97 07/14/19 18:10 86 17 122/68 96 07/14/19 18:01 36 C L 90 17 124/78 97 07/14/19 12:45 36.5 C 97 H 18 145/83 H 95 Pain Intensity Right Elbow: Pain Intensity: 4 Notes Mental Status: alert / awake / arousable and participated in evaluation Nausea / Vomiting: adequately controlled Pain: adequately controlled Airway Patency, RR, SpO2: stable & adequate BP & HR: stable & adequate Hydration State: stable & adequate Anesthetic Complications: no major complications apparent and Pt Satisfied with anesthetic care
--- NOTE | 2019-07-15 11:52 | Orthopedic Progress Note ---
Date of Service July 15, 2019 Assessment & Plan Admission and Anticipated Discharge Date Admission Date: July 14, 2019 POD 1 s/p Right Olecranon Fracture BSG's noted to be elevated. Mild bump in Creatinine. Pt doing well orthopedically. Plan for discharge to home today if Ok with Med Service. Subjective POD 1 Pt sitting up in chair at bedside. Pt seen by Dr Grant earlier. O2 has been removed and O2 sats have been stable. Pt feels well. No complaints. Comfortable. Physical Exam Physical Exam: Splint / Dressing C/D/I. Fingers pink/warm with good sensation. Moving fingers well. NV intact. Sling in place. Results & Data ([facility]) Vital Signs (Past 12 Hours) Vital Signs Temp Pulse Pulse Resp BP Pulse Ox 07/15/19 08:32 36.8 C 85 18 141/73 H 99 07/15/19 07:39 88 18 99 07/15/19 06:32 128/74 07/15/19 02:41 36.6 C 98 H 18 146/83 H 98 07/15/19 01:08 84 16 97 07/15/19 00:12 104 H 139/83 Laboratory Results Laboratory Results WBC 10.45 K/uL (4.8-10.8) 07/15/19 06:50 RBC 3.59 M/uL (4.7-6.1) L 07/15/19 06:50 Hgb 10.3 g/dL (14.0-18.0) L 07/15/19 06:50 Hct 33.3 % (42-52) L 07/15/19 06:50 MCV 92.8 fL (80-100) 07/15/19 06:50 MCH 28.7 pg (25-34) 07/15/19 06:50 MCHC 30.9 g/dL (32-36) L 07/15/19 06:50 RDW Std Deviation 48.1 fL (36.4-46.3) H 07/15/19 06:50 RDW Coeff of Samira 14.2 % (11.5-14.5) 07/15/19 06:50 Plt Count 210 K/uL (130-400) 07/15/19 06:50 MPV 10.2 fL (7.4-10.4) 07/15/19 06:50 Immature Gran % (Auto) 0.2 % 07/09/19 14:50 Neut % (Auto) 74.1 % 07/09/19 14:50 Lymph % (Auto) 13.2 % 07/09/19 14:50 [place] % (Auto) 10.2 % 07/09/19 14:50 Eos % (Auto) 1.8 % 07/09/19 14:50 Baso % (Auto) 0.5 % 07/09/19 14:50 Immature Gran # (Auto) 0.01 K/uL (0.00-0.02) 07/09/19 14:50 Neut # (Auto) 4.65 K/uL (1.4-6.5) 07/09/19 14:50 Lymph # (Auto) 0.83 K/uL (1.2-3.4) L 07/09/19 14:50 [place] # (Auto) 0.64 K/uL (0.11-0.59) H 07/09/19 14:50 Eos # (Auto) 0.11 K/uL (0-0.5) 07/09/19 14:50 Baso # (Auto) 0.03 K/uL (0-0.2) 07/09/19 14:50 PT 11.0 Seconds (9.0-12.0) 07/14/19 12:08 INR 1.0 (0.9-1.1) 07/14/19 12:08 APTT 30.7 Seconds (21.0-31.0) 07/14/19 12:08 PTT Ratio 1.1 07/14/19 12:08 Sodium 137 mmol/L (136-145) 07/15/19 06:50 Potassium 4.6 mmol/L (3.5-5.1) 07/15/19 06:50 Chloride 102 mmol/L (98-107) 07/15/19 06:50 Carbon Dioxide 31 mmol/L (21-32) 07/15/19 06:50 Anion Gap 4.0 (3-11) 07/15/19 06:50 BUN 25 mg/dl (7-18) H 07/15/19 06:50 Creatinine 1.55 mg/dl (0.6-1.4) H 07/15/19 06:50 Est Cr Clr Drug Dosing 43.1 ml/min 07/15/19 06:50 Est GFR ( Amer) 47.9 07/15/19 06:50 Est GFR (Non-Af Amer) 41.4 07/15/19 06:50 BUN/Creatinine Ratio 16.0 (-20) 07/15/19 06:50 Glucose 293 mg/dl (70-99) H 07/15/19 06:50 POC Glucose 302 mg/dl (70-99) H* 07/15/19 08:19 Estimat Average Glucose 220 mg/dl 07/14/19 20:24 Hemoglobin A1c 9.3 % (4.5-5.6) H 07/14/19 20:24 Calcium 9.1 mg/dl (8.5-10.1) 07/15/19 06:50 Magnesium 2.0 mg/dl (1.8-2.4) 07/14/19 20:24 Beta-Hydroxybutyric Acd 0.88 mg/dl (0.2-2.81) 07/09/19 14:50 Digoxin 0.8 ng/ml (0.8-2.0) 07/14/19 20:24
--- NOTE | 2019-07-15 12:03 | Hospitalist Progress Note ---
Date of Service July 15, 2019 Assessment & Plan (1) Closed olecranon fracture: Status post ORIF right olecranon 2/[address] Grant POD #0 EBL 5 ml POD #1 Denies any significant pain and/or numbness/tingling in the right hand/extremity Pain/wound management per Ortho Activity and therapy as directed by Ortho Encourage incentive spirometer Monitor H&H-remains stable DVT prophylaxis per primary -resume Coumadin tomorrow per Ortho (2) Diabetes type I: Poorly controlled, last A1c 03/2019 9.4 Glycemic pharmacist consult placed, appreciate their input Recommend stricter control given other comorbidities No acute issue (3) Permanent atrial fibrillation: Recent pacemaker interrogation revealed 100% burden of atrial fibrillation Currently on metoprolol and digoxin Anticoagulated on warfarin, home regimen of 2.5 mg Sunday and 1.25 mg all other days Rate is controlled Coumadin will be started from today and maintain the dose as outpatient (4) Chronic diastolic heart failure: Weight 94.8 kg Monitor daily weight, strict I's and O's Continue metoprolol, Lasix, digoxin Heart healthy low-sodium diet No signs and/or symptoms of of overload (5) 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 Recently interrogated 06/19 (6) COPD (chronic obstructive pulmonary disease): With chronic respiratory failure on 2 L of O2 at at bedtime Continue Symbicort, Combivent, albuterol Add flutter valve and encourage incentive spirometry Patient also with history of bronchiectasis and asbestos pneumoconiosis No acute exacerbation of his COPD (7) Hypertension: Blood pressure controlled On metoprolol and Lasix (8) CKD (chronic kidney disease) stage 3, GFR 30-59 ml/min: BUN/creatinine stable at 24 and 1.49 Baseline creatinine 1.6 Monitor (9) BPH (benign prostatic hypertrophy): Continue Flomax (10) DVT prophylaxis: Warfarin per primary Disposition: Per primary Follow-up: PCP Dr. Monte up on discharge Medically stable to be discharged Admission and Anticipated Discharge Date Admission Date: July 14, 2019 Subjective The patient was seen and examined in medical floor He is a status post ORIF right olecranon, POD #1 Denies any symptoms and does not have any numbness or tingling involving the right upper extremity Wants to go home Review of Systems Review of Systems: All systems reviewed and are unremarkable except as noted below Musculoskeletal: Pain right elbow Physical Exam Physical Exam: No apparent distress at rest Constitutional: well developed, well nourished and + obese; no acute distress and not ill appearing Eyes: PERRL, conjunctivae normal, anicteric sclerae ENMT: external ear and nose normal, oropharynx normal Neck: trachea midline, no thyromegaly Respiratory: normal respiratory effort; no respiratory distress Auscultation: lungs clear to auscultation bilaterally Cardiovascular: Rate/Rhythm: regular rate and regular rhythm Heart Sounds: no murmur Gastrointestinal (Abdomen): Inspection/Auscultation: abdomen normal to inspection and normal bowel sounds Percussion/Palpation: abdomen soft; abdomen nontender Musculoskeletal: Pain right elbow Neurologic: moves all extremities; no focal motor deficits Lymphatic: no cervical or axillary lymphadenopathy Results & Data ([facility]) Vital Signs (Past 12 Hours) Vital Signs Temp Pulse Pulse Resp BP Pulse Ox 07/15/19 08:32 36.8 C 85 18 141/73 H 99 07/15/19 07:39 88 18 99 07/15/19 06:32 128/74 07/15/19 02:41 36.6 C 98 H 18 146/83 H 98 07/15/19 01:08 84 16 97 07/15/19 00:12 104 H 139/83 Laboratory Results Short CBC 07/15/19 Range/Units 06:50 WBC 10.45 (4.8-10.8) K/uL Hgb 10.3 L (14.0-18.0) g/dL Hct 33.3 L (42-52) % Plt Count 210 (130-400) K/uL [facility] 07/14/19 07/15/19 20:24 06:50 Sodium 139 137 Potassium 4.8 4.6 Chloride 105 102 Carbon Dioxide 31 31 BUN 24 H 25 H Creatinine 1.49 H 1.55 H Glucose 224 H 293 H Calcium 9.1 9.1 Medications Administered Current Inpatient Medications Acetaminophen (Tylenol) 1,000 mg PO Q8 RAS[facility] Stop: 08/13/19 21:59 Last Admin: 07/15/19 06:23 Dose: 1,000 mg Documented by: Aspirin (Ecotrin Ectab) 81 mg PO QAM RASHEL Stop: 08/14/19 08:59 Last Admin: 07/15/19 08:52 Dose: 81 mg Documented by: Benzonatate (Tessalon Perle) 100 mg PO BID PRN PRN Reason: Cough Stop: 08/13/19 19:22 Last Admin: 07/14/19 21:03 Dose: 100 mg Documented by: Budesonide/Formoterol Fumarate (Symbicort 160mcg/4.5mcg) 2 puffs INH BID [facility] Stop: 08/13/19 20:59 Last Admin: 07/15/19 08:54 Dose: 2 puffs Documented by: Dextrose (Dextrose 50%) 25 - 50 ml IV UD PRN; Protocol PRN Reason: Hypoglycemia Protocol Stop: 08/13/19 20:14 Digoxin (Lanoxin) 0.125 mg PO MoWeFr@1600 [facility] Stop: 08/15/19 15:59 Docusate Sodium (Colace) 100 mg PO BID [facility] Stop: 08/13/19 20:59 Last Admin: 07/15/19 08:52 Dose: 100 mg Documented by: Fluticasone Propionate (Flonase) 2 sprays NA DAILY PRN PRN Reason: Allergy Symptoms Stop: 08/13/19 19:34 Glucagon (Glucagen) 1 mg SQ UD PRN; Protocol PRN Reason: Hypoglycemia Protocol Stop: 08/13/19 20:14 Glucose (Glucose 40%) 15 - 30 gm PO UD PRN; Protocol PRN Reason: Hypoglycemia Protocol Stop: 08/13/19 20:14 Glucose (Dex4 Glucose) 4 - 8 tabs PO UD PRN; Protocol PRN Reason: Hypoglycemia Protocol Stop: 08/13/19 20:14 Hydromorphone HCl (Dilaudid) 0.25 mg IV Q4H PRN PRN Reason: Pain or Pre PT Stop: 07/28/19 19:22 Last Admin: 07/14/19 21:04 Dose: 0.25 mg Documented by: Insulin Aspart (Novolog Flexpen) 0 units SC ACHS [facility] Stop: 08/13/19 20:59 Last Admin: 07/15/19 09:00 Dose: 10 units Documented by: Insulin Glargine (Lantus Solostar Pen) 22 units SC QAM [facility] Stop: 08/14/19 08:59 Last Admin: 07/15/19 08:59 Dose: 22 units Documented by: Ipratropium [place] (Atrovent 0.02% 0.5mg/2.5ml) 0.5 mg INH Q6R [facility] Stop: 08/14/19 00:59 Last Admin: 07/15/19 07:36 Dose: 0.5 mg Documented by: Levalbuterol HCl (Xopenex 1.25mg/0.5ml Neb) 1.25 mg INH Q6R [facility] Stop: 08/14/19 00:59 Last Admin: 07/15/19 07:36 Dose: 1.25 mg Documented by: Magnesium Hydroxide (Milk Of Magnesia) 30 ml PO Q6H PRN PRN Reason: Constipation Stop: 08/13/19 19:22 Metoprolol Tartrate (Lopressor) 50 mg PO BID [facility] Stop: 08/14/19 05:29 Last Admin: 07/15/19 06:23 Dose: 50 mg Documented by: Miscellaneous (Carbohydrates For Hypoglycemia) 15 - 30 gm PO UD PRN PRN Reason: Hypoglycemia Treatment Stop: 08/13/19 20:14 Miscellaneous Information (Consult Glycemic Management Pharmacy) 1 ea N/A UD PRN PRN Reason: Consult Stop: 08/13/19 19:37 Multivitamins (Multivitamin Tab) 1 tab PO QAM [facility] Stop: 08/14/19 08:59 Last Admin: 07/15/19 08:52 Dose: 1 tab Documented by: Naloxone HCl (Narcan) 0.1 mg IV Q5M PRN PRN Reason: Oversedation/Resp Depression Stop: 08/13/19 19:22 Nitroglycerin (Nitrostat) 0.4 mg SL UD PRN PRN Reason: Chest Pain Stop: 08/13/19 19:22 Ondansetron HCl (Zofran) 4 mg IV Q6H PRN PRN Reason: Nausea And Vomiting Stop: 08/13/19 19:22 Oxycodone HCl (Roxicodone Immediate Rel) 5 - 10 mg PO Q4H PRN PRN Reason: Pain or Pre PT Stop: 07/28/19 19:22 Sennosides (Senokot) 17.2 mg PO HS [facility] Stop: 08/13/19 20:59 Last Admin: 07/14/19 20:56 Dose: 17.2 mg Documented by: Simvastatin (Zocor) 20 mg PO QPM [facility] Stop: 08/13/19 20:59 Last Admin: 07/14/19 20:57 Dose: 20 mg Documented by: Tamsulosin HCl (Flomax) 0.4 mg PO HS [facility] Stop: 08/13/19 20:59 Last Admin: 07/14/19 20:55 Dose: 0.4 mg Documented by: Warfarin Sodium (Coumadin) 2.5 mg PO [id number]@1600 [facility] Stop: 08/14/19 15:59 Warfarin Sodium (Coumadin) 1.25 mg PO [id number]@1600 [facility] Stop: 08/15/19 15:59 (1) Closed olecranon fracture Encounter type: initial encounter Laterality: right Qualified Code(s): S52.021A - Displaced fracture of olecranon process without intraarticular extension of right ulna, initial encounter for closed fracture
--- NOTE | 2019-07-15 12:18 | Pharmacy Report ---
Pharmacy Glycemic Short Note 2 - Date of Service July 15, 2019 - Glycemic Short BSG Results (Last 24 hours): 07/14/19 07/14/19 07/14/19 12:13 13:15 13:59 Glucose POC Glucose 361 H* 334 H* 333 H* 07/14/19 07/14/19 07/14/19 18:00 19:57 20:24 Glucose 224 H POC Glucose 214 H 188 H 07/15/19 07/15/19 07/15/19 02:02 02:05 06:50 Glucose 293 H POC Glucose 362 H* 362 H* 07/15/19 07/15/19 08:18 08:19 Glucose POC Glucose 314 H* 302 H* OUTPATIENT ANTIDIABETIC REGIMEN: * Lantus 20-22 units Q AM * Novolog 4-6 units SQ with meals * A1c = 9.3% ASSESSMENT: * Type 1 diabetic admitted for closed olecranon fracture now s/p ORIF * Pt did receive IV dexamethasone in the OR yesterday - likely leading to worsening hyperglycemia following last evening's meal * BSGs remain in the low 300's at this time despite correctional insulin administration. AG and Bicarb within normal limits on AM PRP. * I am hesitant to further increase his insulin doses as the effects of dexamethasone may dissipate over the course of the day today, however in some patients these effects ramos persist beyond 24 hrs. Will rely mainly on correctional insulin in IV and SQ form to prevent prolonged lows. PLAN FOR INPATIENT GLYCEMIC CONTROL: * Basal insulin * Lantus 22 units SQ Q AM * Bolus insulin * NovoLog per scale ACHS and at 0000 + 0400 * Goal Range: Low 110 mg/dL - High 150 mg/dL * Correction Factor: 25 mg/dL/unit during the day, and 40mg/dL/unit overnight * Nutritional / Prandial insulin per carb ratio of 1 unit per 8 grams CHO co nsumed * May consider small IV bolus doses if BSGs not falling despite the above SQ rapid acting doses PLAN FOR DISCHARGE: * to be determined
[2019-07-15] MEDS ORDERED: WARFARIN SOD 2.5 MG TAB PO SCH (16:00)
[2019-07-16] MEDS ORDERED: INSULIN ASPART 100 UNITS/ML 3 ML PEN SC SCH
[2019-07-16] MEDS ORDERED: WARFARIN SOD 1.25 MG TAB PO SCH (16:00)
[2019-07-16] MEDS ORDERED: DIGOXIN 0.125 MG TAB PO SCH (16:00)
--- NOTE | 2019-07-17 09:24 | Discharge Summary ---
Date of Service July 17, 2019 Admission HPI Per Admitting Provider HISTORY OF PRESENT ILLNESS: This is an 79-year-old male patient of Dr. Grant'stephen complaining of right elbow injury on 07/06/2019. The patient was attempting to change a light bulb in his garage while standing on a bench. He lost his balance and fell landing on his elbow. The patient was x-rayed at [facility] where he was diagnosed with a closed fracture of the olecranon process with comminution and displacement. The patient wished to proceed with open reduction, internal fixation and plate fixation of right olecranon process. Admission Exam Per Admitting Provider GENERAL: A well-developed, well-nourished 79-year-old male, in no acute distress. He is alert and oriented x3 and pleasant. HEENT: Normocephalic, atraumatic. Extraocular motions are intact. Pupils are equal and reactive to light. HEART: Irregular rate and rhythm, no murmurs appreciated. LUNGS: Clear. ABDOMEN: Soft, nontender, bowel sounds present. EXTREMITIES: Right elbow positive ecchymosis, positive swelling over the olecranon area. He has painful range of motion. Strength was deferred due to his injury. Neurologically and neurovascularly, he is intact in his right upper extremity. Principal Diagnosis Right Olecranon Fracture Discharge Data Allergies Allergy/AdvReac Type Severity Reaction Status Date / Time diltiazem Allergy Mild rash Verified 07/14/19 12:31 fluticasone furoate AdvReac Intermediate Joint Pain Verified 07/14/19 12:31 [From Breo Ellipta] vilanterol AdvReac Intermediate Joint Pain Verified 07/14/19 12:31 [From Breo Ellipta] aspirin AdvReac Mild GI symptoms Verified 07/14/19 12:31 lisinopril AdvReac Mild cough Verified 07/14/19 12:31 propoxyphene AdvReac Mild GI upset, Verified 07/14/19 12:31 diarrhea Consultations 07/14/19 19:23 Consult Case Management - Discharge Planning Routine Consult Hospitalist Routine Procedures Performed Operation Date: 07/14/19 14:30 Actual Procedures p Right Elbow Olecrannon Fracture Open Reduction Internal Fixation(Right) - Mark Grant MD Ordered Studies 07/14/19 05:00 US - OR guided needle placemen Routine 07/14/19 14:30 FL elbow RT 2V Routine FL fluoroscopy <1hr Routine Hospital Course (1) Fracture of right olecranon process: Patient was admitted on the above-noted date and had the above-noted s urgery performed which he tolerated well. Postoperatively, anesthesia felt it would be better for him to stay overnight to monitor his breathing secondary to comorbidities. On his first postoperative day, he was sitting up in the chair at the bedside. He was seen by Dr. Rudolph earlier in the day. His O2 per nasal cannula had been removed and his O2 sats have been stable. He felt well and had no complaints pain was controlled. Splint and dressing was clean, dry, and intact. Fingers were pink and warm with good sensation. He had good range of motion of his fingers. Neurovascular is intact. Sling was in place. Vital signs remaining stable. Hemoglobin was 10.3. I discussed the case with Dr. Kenyon who was seeing him for medical management. He felt the patient was remaining stable and was felt he can be discharged home. Total Time Total Time Spent Total Time Spent (In Minutes): 5 Discharge Plan Discharge Items Patient Disposition: Home - Self-Care Reason For Visit: Right Elbow Olecrannon Fracture Discharge Diagnosis: Right Elbow Olecranon Fracture Activity: Per Instructions section Weightbearing: Right non-weightbearing Non-emergency contact: Surgeon Call non-emergency contact if: your pain is not controlled, your temperature is above 101.5 and your wound has increased drainage Follow-up/Referrals: Kg Monte MD [Primary Care Provider] - 07/18/19 11:00 am (If you need to cancel or reschedule this appointment, please call [phone]. ) Diet: Carb Count or DM1 Addtl Attending Provider Instructions: Keep dressing clean and dry. Keep the arm elevated on at least one or two pillows when at rest. Ice pack to left elbow regularly. You can move your fingers regularly Call the office if you you are having a fever of 101.5 or greater, increased pain, increased drainage, or swelling of the hand. Call the office for a follow up appointment for 10-14 days from the day of surgery. [phone] Stand-Alone Forms: My [facility], Opioid Pain Management, Smoking Cessation Medications and DC Order Prescriptions: New acetaminophen 500 mg Tablet 1,000 mg PO Q8 14 Days Qty: 84 RF: 0 tramadol 50 mg Tablet 50 - 100 mg PO Q4H MDD 12 tabs PRN (Reason: pain) Qty: 36 RF: 0 Continued Symbicort 160-4.5 mcg/actuation HFA aerosol inhaler 2 puffs INH BID Qty: 10.2 RF: 5 warfarin 2.5 mg tablet 2.5 mg PO UD RF: 0 Combivent Respimat 20-100 mcg/actuation mist 1 puff INHALATION QID 30 Days Qty: 1 RF: 5 metoprolol tartrate 50 mg tablet 50 mg PO BID RF: 0 benzonatate [Tessalon Perles] 100 mg Capsule 100 mg PO BID PRN (Reason: Cough) RF: 0 digoxin 125 mcg tablet 0.125 mg PO 3XWK RF: 0 tamsulosin [Flomax] 0.4 mg Capsule 0.4 mg PO HS RF: 0 simvastatin [Zocor] 20 mg Tablet 20 mg PO QPM RF: 0 nitroglycerin [Nitrostat] 0.4 mg Tablet, Sublingual 0.4 mg Sublingual UD PRN (Reason: Chest Pain) RF: 0 aspirin 81 mg Tablet,Chewable 81 mg PO QAM RF: 0 insulin aspart U-100 [Novolog Flexpen U-100 Insulin] 100 unit/mL Insulin Pen 4 - 6 unit subcut TID RF: 0 Flonase Sensimist 27.5 mcg/actuation [place],Suspension 2 spray Intranasal DAILY PRN (Reason: Nasal Congestion) RF: 0 Lantus Solostar U-100 Insulin 100 unit/mL (3 mL) Insulin Pen 20 - 22 unit SUBCUT QAM RF: 0 furosemide [Lasix] 20 mg Tablet 20 mg PO BID RF: 0 albuterol sulfate 0.63 mg/3 mL Solution For Nebulization 0.63 mg INHALATION QID PRN (Reason: Shortness Of Breath Or Wheezing) RF: 0 Discontinued ranitidine HCl [Zantac] 150 mg Tablet 150 mg PO BID RF: 0 Discharge Orders: Discharge Order (Routine); Ordered 07/15/19 Ordered By: Dean Presley/Other Patient Handouts: DVT, What to Know When TakingWarfarin, Hyperglycemia Admission Data Admit Date/Time: 07/14/19 18:19 Attending Provider: Mark Grant Admit Provider: Mark Grant Primary Care Provider: Kg Monte Other Providers: Matt Jenkins ; Vincent Kenyon Other Interventions: Discharge Summary Assessment (RN) Last Done: 07/15/19 12:23 DC Date/Time DO NOT enter until pt leaves facility: 07/15/19 13:00
== END 2019-07-15 13:00 | disposition home or self-care (01) | DRG 511 ==
LOC: ASU 11:47 → 3N 18:19

== ENCOUNTER 2020-08-13 12:04 | Inpatient (IN) ==
[2020-08-13] MEDS ORDERED: dexAMETHasone**PF** 10 MG/ML VIAL IV ONE (12:13)
--- NOTE | 2020-08-13 12:18 | Emergency Department Note ---
Impression & Plan COPD (chronic obstructive pulmonary disease), Atrial fibrillation with rapid ventricular response ED Provider Note NAME: CHARISSA THAKUR AGE: 80 SEX: M : 1940 ARRIVES VIA: Ambulance INFORMANT: Patient, prehospital personnel ED PROVIDER(S): Thomas Lucia DO CHIEF COMPLAINT: Shortness of breath HPI: The patient is an 80-year-old male who has a history of respiratory failure as well as interstitial lung disease who presented to the emergency department for an evaluation of severe shortness of breath. The patient's had symptoms over the course of the last 3 days. He normally wears oxygen only at night. He has had uses oxygen with exertion and sometimes during the day. The patient's symptoms have been worsening slowly over the course the last few days. Symptoms became significantly worse today so he called 911 and presented to the emergency department. The patient has been using his bronchodilator therapy as usual. He had a treatment prior to arrival. The patient did not receive any steroids prior to arrival. He denies having any fever but does have a productive cough. The patient's had no recent trauma. He does note swelling in his lower extremity which is atypical for his breathing problems. He denies having any chest pain. He was not seen by his primary care physician prior to coming to [facility] emergency department. The patient had a similar episode at the end of last year. He was tested for Covid and was negative at that time. He did receive both doses of the Covid vaccine. ROS: See above HPI for pertinent positives & negatives. A total of 10 systems reviewed and were otherwise negative. PAST MEDICAL HISTORY: See Below PAST SURGICAL HISTORY: See Below FAMILY HISTORY: See Below SOCIAL HISTORY: See Below HOME MEDICATIONS: See Below ALLERGIES: See Below VITALS: See Below PHYSICAL EXAMINATION: GENERAL: The patient is awake and alert. He is somewhat anxious appearing. EYES: The conjunctivae are clear. The pupils are round and reactive. EARS, NOSE, MOUTH AND THROAT: The nose is without any evidence of any deformity. NECK: The neck is nontender and supple. RESPIRATORY: Diminished breath sounds are noted throughout. Scattered rhonchi and rales were noted in both lung raymond. There was significant conversational dyspnea. CARDIOVASCULAR: Tachycardic and irregular heart sounds were noted to auscultation. GASTROINTESTINAL: The abdomen is soft. Abdomen is nontender. MUSCULOSKELETAL/EXTREMITIES: There is no evidence of gross deformity full range of motion is noted in the hips and shoulders. SKIN: Skin is warm and dry. There is pedal edema bilaterally. NEUROLOGIC: Patient is awake alert and oriented x 3. MEDICAL DECISION MAKING: The patient is an 80-year-old male who presented to the emergency department by ambulance for an evaluation of difficulty breathing. The patient had very significant difficulty breathing and has a history of COPD. Patient was also in rapid atrial fibrillation. He was treated with IV fluids and IV antibiotics in the emergency department. He was placed on supplemental oxygen. Symptoms significantly improved. I discussed the patient's laboratory and radiographic studies with him. Because of the degree of symptomatology I also discussed his case with the on-call [facility]. They have agreed to evaluate the patient in the emergency department for further management and disposition. The patient was also treated with bronchodilator therapy once his Covid swab was negative. Triage Nursing notes reviewed. Prior medical records reviewed Vital Signs: reviewed and remarkable for tachycardia and elevated blood pressure. The patient was also found to be febrile during his stay in the emergency department. Differential diagnosis: Reactive airway disease, pneumonia, pneumothorax, COPD, CHF, infections, cardiac ischemia, pulmonary embolism, musculoskeletal, gastrointestinal, as well as other pathologies. ER treatment provided: See below Diagnostics interpreted by me: ECG: EKG was obtained in the emergency department. My interpretation is atrial fibrillation at 137 bpm. Right bundle branch block pattern was noted. There was no PVCs. This was compared to a tracing from April 202019. No significant changes were noted. Cardiac Monitoring: An order was placed for continuous cardiac monitoring. The monitor shows a rate of 125 bpm with atrial fibrillation rhythm. Laboratory studies: As stated above and show below. Imaging studies: See below Consultation(s): 1350: I discussed this case with Dr. Kenyon who is on-call for the [facility] group. 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)/last check 06/09/19 Pulmonary embolism remote hx Skin cancer left elbow region Surgical History H/O basal cell carcinoma excision REMOVED FROM NOSE H/O hand surgery LEFT MIDDLE FINGER FX REPAIR H/O inguinal hernia repair H/O nasal polypectomy History of bronchoscopy History of cataract surgery RT/LEFT History of colonoscopy History of inguinal hernia repair History of lung biopsy robotic thoracoscopy, pleural biopsy: 08/09/16: Grade view 1, MAC#3 at [facility] History of surgery of head "correct skull abnormality- left temporoparietal ; 1992" History of tooth extraction Status post placement of cardiac pacemaker Family History Brother Diabetes Son Diabetes Family hx of colon cancer Other Heart disease Social History Smoking Status: Former smoker Second Hand Exposure: No; Do You Dip or Chew Tobacco: No; Tobacco Cessation Education Requested by Patient: No Hx Alcohol Use: Yes Alcohol type: beer Hx Substance Use: No Preferred Language: Croatian Communication Ability: Effective Visual Impairment: No Limitations It Systems Administrator Required: No Beliefs That Will Affect Care: Amish Amish Beliefs: Shinto marital status: Current Living Situation: Spouse Current Living Situation Comment: at home Other Information That Helps Us Care for You: No Feels Safe at Home: Yes Safety Concerns: Feels Safe At This Time Assistive Devices: Denture - Upper, Denture - Lower and Glasses Allergies Allergies Allergy/AdvReac Type Severity Reaction Status Date / Time diltiazem Allergy Mild rash Verified 08/13/20 15:40 fluticasone furoate AdvReac Intermediate Joint Pain Verified 08/13/20 15:40 [From Breo Ellipta] vilanterol AdvReac Intermediate Joint Pain Verified 08/13/20 15:40 [From Breo Ellipta] aspirin AdvReac Mild GI symptoms Verified 08/13/20 15:40 lisinopril AdvReac Mild cough Verified 08/13/20 15:40 propoxyphene AdvReac Mild GI upset, Verified 08/13/20 15:40 diarrhea Home Meds Home Medications Medication Instructions Recorded Confirmed Flonase Sensimist 2 spray INTRANASAL DAILY PRN 07/03/18 08/13/20 Lantus Solostar U-100 Insulin 20 - 22 unit SUBCUT QAM 07/03/18 08/13/20 insulin aspart U-100 [Novolog 4 - 6 unit SUBCUT TID 07/03/18 08/13/20 Flexpen U-100 Insulin] nitroglycerin [Nitrostat] 0.4 mg SUBLINGUAL UD PRN 07/03/18 08/13/20 simvastatin [Zocor] 20 mg PO QPM 07/03/18 08/13/20 tamsulosin [Flomax] 0.4 mg PO HS 07/03/18 08/13/20 metoprolol tartrate 50 mg PO PM 12/25/18 08/13/20 warfarin 2.5 mg tablet 2.5 mg PO MO 01/10/19 08/13/20 benzonatate [Tessalon Perles] 100 mg PO BID PRN 07/08/19 08/13/20 levalbuterol HCl 1.25 mg INHALATION Q4H PRN 04/20/20 08/13/20 metoprolol tartrate 25 mg PO QAM 04/20/20 08/13/20 torsemide 20 mg PO DAILY 04/20/20 08/13/20 triamcinolone acetonide 1 applic TOPICAL BID 04/20/20 08/13/20 warfarin 1.25 mg PO SUTUWETHFRSA 04/20/20 08/13/20 digoxin 125 mcg (0.125 mg) tablet 125 mcg PO .MWF tab 07/12/20 08/13/20 umeclidinium-vilanterol [Anoro 1 inh INHALATION QAM 08/13/20 08/13/20 Ellipta] Previous Rx's Medication Instructions Recorded ipratropium 20 mcg-albuterol 100 1 puff INHALATION Q6H #3 inhaler 01/28/20 mcg/actuation mist for inhalation sodium chloride 7 % for 4 ml INHALATION BID #240 ml 07/20/20 nebulization acetylcysteine 100 mg/mL (10 %) 3 ml INHALATION BID #180 ml 07/22/20 solution Results & Data (ED) Vital Signs Vital Signs - 24 hr 08/13/20 12:15 08/13/20 12:22 08/13/20 13:25 Temperature 38.5 C H Temperature Source Oral Pulse Rate 137 H 137 H Pulse Rate [Left Apical] 137 H 131 H Pulse Rhythm Irregular Pulse Rhythm [Left Apical] Irregular Irregular Pulse Strength Normal Pulse Strength [Left Apical] Normal Normal Respiratory Rate 22 22 22 Respiratory Effort / Characteristics Non-Labored Spontaneous Non-Labored Spontaneous Non-Labored Spontaneous Respiratory Depth Deep Deep Normal Respiratory Pattern Regular Regular Regular Blood Pressure 102/62 Blood Pressure [Right Arm] 102/62 101/68 Blood Pressure Mean 75 Blood Pressure Mean [Right Arm] 75 79 Blood Pressure Position Lying Blood Pressure Position [Right Arm] Lying Lying Pulse Oximetry 98 98 100 Oxygen Delivery Method Nasal Cannula Nasal Cannula Nasal Cannula Oxygen Flow Rate 6 6 6 Sepsis Recent Fever Within 48 Hours Yes Sepsis New/Unexplained Change in Mental Status N/A Sepsis Action Taken by Nursing Physician Notified 08/13/20 14:20 Temperature Temperature Source Pulse Rate Pulse Rate [Left Apical] 118 H Pulse Rhythm Pulse Rhythm [Left Apical] Pulse Strength Pulse Strength [Left Apical] Respiratory Rate 18 Respiratory Effort / Characteristics Non-Labored Spontaneous Respiratory Depth Respiratory Pattern Blood Pressure Blood Pressure [Right Arm] Blood Pressure Mean Blood Pressure Mean [Right Arm] Blood Pressure Position Blood Pressure Position [Right Arm] Pulse Oximetry 98 Oxygen Delivery Method Nasal Cannula Oxygen Flow Rate 6 Sepsis Recent Fever Within 48 Hours Sepsis New/Unexplained Change in Mental Status Sepsis Action Taken by Correction Medications Current Medication List: was personally reviewed by me Laboratory Data Attestation: I reviewed the patient's lab results. Result diagrams: 08/13/20 12:23 08/13/20 12:23 Lab Results 08/13/20 08/13/20 08/13/20 Range/Units 12:20 12:20 12:23 WBC 4.43 L (4.8-10.8) K/uL RBC 3.59 L (4.7-6.1) M/uL Hgb 9.7 L (14.0-18.0) g/dL Hct 30.4 L (42-52) % MCV 84.7 (80-100) fL MCH 27.0 (25-34) pg MCHC 31.9 L (32-36) g/dL RDW Std Deviation 57.5 H (36.4-46.3) fL RDW Coeff of Samira 18.4 H (11.5-14.5) % Plt Count 102 L (130-400) K/uL MPV 10.0 (7.4-10.4) fL Immature Gran % (Auto) 0.2 % Neut % (Auto) 78.4 % Lymph % (Auto) 16.9 % Winston % (Auto) 3.8 % Eos % (Auto) 0.5 % Baso % (Auto) 0.2 % Neut # (Auto) 3.47 (1.4-6.5) K/uL Lymph # (Auto) 0.75 L (1.2-3.4) K/uL Winston # (Auto) 0.17 (0.11-0.59) K/uL Eos # (Auto) 0.02 (0-0.5) K/uL Baso # (Auto) 0.01 (0-0.2) K/uL Immature Gran # (Auto) 0.01 (0.00-0.02) K/uL PT (9.0-12.0) Seconds INR (0.9-1.1) APTT (21.0-31.0) Seconds PTT Ratio VBG pH (7.36-7.41) VBG pCO2 (38-50) mmHg VBG pO2 mmHg VBG HCO3 mmol/L VBG O2 Saturation % VBG Base Excess mEq/L Barometric Pressure mm/Hg Sodium (136-145) mmol/L Potassium (3.5-5.1) mmol/L Chloride (98-107) mmol/L Carbon Dioxide (21-32) mmol/L Anion Gap (3-11) BUN (7-18) mg/dl Creatinine (0.6-1.4) mg/dl Est Cr Clr Drug Dosing ml/min Est GFR ( Amer) Est GFR (Non-Af Amer) BUN/Creatinine Ratio (10-20) Glucose (70-99) mg/dl Lactate (0.4-2.0) mmol/L Calcium (8.5-10.1) mg/dl Magnesium (1.8-2.4) mg/dl Total Bilirubin (0.2-1) mg/dl AST (15-37) U/L ALT (12-78) U/L Alkaline Phosphatase (45-117) U/L Troponin I (0-0.045) ng/ml Total Protein (6.4-8.2) gm/dl Albumin (3.4-5.0) gm/dl Globulin (2.5-4.0) gm/dl Albumin/Globulin Ratio (0.9-2) Procalcitonin (0-0.5) ng/ml COVID-19 Eval Order CovFluRsv at [facility] SARS-CoV-2 (PCR) NEGATIVE (Negative) Influenza Type A (PCR) Negative (Neg) Influenza Type B (PCR) Negative (Neg) RSV (RT-PCR) Negative (Neg) 08/13/20 08/13/20 08/13/20 Range/Units 12:23 12:23 12:23 WBC (4.8-10.8) K/uL RBC (4.7-6.1) M/uL Hgb (14.0-18.0) g/dL Hct (42-52) % MCV (80-100) fL MCH (25-34) pg MCHC (32-36) g/dL RDW Std Deviation (36.4-46.3) fL RDW Coeff of Samira (11.5-14.5) % Plt Count (130-400) K/uL MPV (7.4-10.4) fL Immature Gran % (Auto) % Neut % (Auto) % Lymph % (Auto) % Winston % (Auto) % Eos % (Auto) % Baso % (Auto) % Neut # (Auto) (1.4-6.5) K/uL Lymph # (Auto) (1.2-3.4) K/uL Winston # (Auto) (0.11-0.59) K/uL Eos # (Auto) (0-0.5) K/uL Baso # (Auto) (0-0.2) K/uL Immature Gran # (Auto) (0.00-0.02) K/uL PT 22.4 H (9.0-12.0) Seconds INR 2.4 H (0.9-1.1) APTT 39.5 H (21.0-31.0) Seconds PTT Ratio 1.5 VBG pH (7.36-7.41) VBG pCO2 (38-50) mmHg VBG pO2 mmHg VBG HCO3 mmol/L VBG O2 Saturation % VBG Base Excess mEq/L Barometric Pressure mm/Hg Sodium 136 (136-145) mmol/L Potassium 4.6 (3.5-5.1) mmol/L Chloride 98 (98-107) mmol/L Carbon Dioxide 29 (21-32) mmol/L Anion Gap 9.0 (3-11) BUN 49 H (7-18) mg/dl Creatinine 2.18 H (0.6-1.4) mg/dl Est Cr Clr Drug Dosing 29.6 ml/min Est GFR ( Amer) 31.5 Est GFR (Non-Af Amer) 27.2 BUN/Creatinine Ratio 22.5 H (10-20) Glucose 268 H (70-99) mg/dl Lactate 2.2 H* (0.4-2.0) mmol/L Calcium 8.1 L (8.5-10.1) mg/dl Magnesium 2.0 (1.8-2.4) mg/dl Total Bilirubin 1.1 H (0.2-1) mg/dl AST 19 (15-37) U/L ALT 27 (12-78) U/L Alkaline Phosphatase 80 (45-117) U/L Troponin I 0.056 H* (0-0.045) ng/ml Total Protein 5.6 L (6.4-8.2) gm/dl Albumin 1.8 L (3.4-5.0) gm/dl Globulin 3.8 (2.5-4.0) gm/dl Albumin/Globulin Ratio 0.5 L (0.9-2) Procalcitonin (0-0.5) ng/ml COVID-19 Eval Order SARS-CoV-2 (PCR) (Negative) Influenza Type A (PCR) (Neg) Influenza Type B (PCR) (Neg) RSV (RT-PCR) (Neg) 08/13/20 08/13/20 Range/Units 12:23 12:23 WBC (4.8-10.8) K/uL RBC (4.7-6.1) M/uL Hgb (14.0-18.0) g/dL Hct (42-52) % MCV (80-100) fL MCH (25-34) pg MCHC (32-36) g/dL RDW Std Deviation (36.4-46.3) fL RDW Coeff of Samira (11.5-14.5) % Plt Count (130-400) K/uL MPV (7.4-10.4) fL Immature Gran % (Auto) % Neut % (Auto) % Lymph % (Auto) % Winston % (Auto) % Eos % (Auto) % Baso % (Auto) % Neut # (Auto) (1.4-6.5) K/uL Lymph # (Auto) (1.2-3.4) K/uL Winston # (Auto) (0.11-0.59) K/uL Eos # (Auto) (0-0.5) K/uL Baso # (Auto) (0-0.2) K/uL Immature Gran # (Auto) (0.00-0.02) K/uL PT (9.0-12.0) Seconds INR (0.9-1.1) APTT (21.0-31.0) Seconds PTT Ratio VBG pH 7.42 H (7.36-7.41) VBG pCO2 46 (38-50) mmHg VBG pO2 26 mmHg VBG HCO3 29 mmol/L VBG O2 Saturation < 60.0 % VBG Base Excess 4.0 mEq/L Barometric Pressure 725.4 mm/Hg Sodium (136-145) mmol/L Potassium (3.5-5.1) mmol/L Chloride (98-107) mmol/L Carbon Dioxide (21-32) mmol/L Anion Gap (3-11) BUN (7-18) mg/dl Creatinine (0.6-1.4) mg/dl Est Cr Clr Drug Dosing ml/min Est GFR ( Amer) Est GFR (Non-Af Amer) BUN/Creatinine Ratio (10-20) Glucose (70-99) mg/dl Lactate (0.4-2.0) mmol/L Calcium (8.5-10.1) mg/dl Magnesium (1.8-2.4) mg/dl Total Bilirubin (0.2-1) mg/dl AST (15-37) U/L ALT (12-78) U/L Alkaline Phosphatase (45-117) U/L Troponin I (0-0.045) ng/ml Total Protein (6.4-8.2) gm/dl Albumin (3.4-5.0) gm/dl Globulin (2.5-4.0) gm/dl Albumin/Globulin Ratio (0.9-2) Procalcitonin 1.29 H (0-0.5) ng/ml COVID-19 Eval Order SARS-CoV-2 (PCR) (Negative) Influenza Type A (PCR) (Neg) Influenza Type B (PCR) (Neg) RSV (RT-PCR) (Neg) Administered Medications Acetylcysteine (Acetylcysteine 10% Inhal Soln 4 Ml Dispensed By Resp.) 3 ml INH BIDR RASHEL Stop: 09/12/20 20:59 Last Admin: 08/13/20 19:27 Dose: 3 ml Documented by: [id number] Albuterol (Albuterol Hfa 8 Gm Inhaler (Combivent Respimat P&T Subs)) 1 puffs INH QIDR RASHEL Stop: 09/12/20 18:59 Last Admin: 08/13/20 19:27 Dose: Not Given Documented by: [id number] Digoxin (Digoxin 0.125 Mg Tab) 0.125 mg PO [id number] RASHEL Stop: 09/12/20 16:29 Last Admin: 08/13/20 17:28 Dose: 0.125 mg Documented by: [id number] Sodium Chloride (Nss 1000ml) 1,000 mls @ 125 mls/hr IV .Q8H [facility] Stop: 08/13/20 22:59 Last Admin: 08/13/20 16:28 Dose: 125 mls/hr Documented by: [id number] Doxycycline Hyclate 100 mg/ (Dextrose) 110 mls @ 50 mls/hr IV Q12 RASHEL Stop: 08/20/20 17:59 Last Admin: 08/13/20 17:38 Dose: 50 mls/hr Documented by: [id number] Insulin Aspart (Insulin Aspart 100 Units/Ml 3 Ml Pen) 0 units SQ ACHS RASHEL Stop: 09/12/20 16:29 Last Admin: 08/13/20 17:35 Dose: 9 units Documented by: [id number] Cosigned by: [id number] Ipratropium [place] (Ipratropium Hfa Inhaler (Combivent Respimat P&T Subs)) 1 puffs INH QIDR RASHEL Stop: 09/12/20 18:59 Last Admin: 08/13/20 19:26 Dose: Not Given Documented by: [id number] Levalbuterol HCl (Levalbuterol Hcl 1.25 Mg/3 Ml Neb) 1.25 mg INH Q4R PRN PRN Reason: Shortness Of Breath Or Wheezing Stop: 09/12/20 16:15 Last Admin: 08/13/20 19:27 Dose: 1.25 mg Documented by: [id number] Warfarin Sodium (Warfarin Sod 1.25 Mg Tab) 1.25 mg PO [id number] [facility] Stop: 09/12/20 16:29 Last Admin: 08/13/20 17:26 Dose: 1.25 mg Documented by: [id number] Discontinued Medications Albuterol (Albut/Ipratrop 3mg/0.5mg Neb 3 Ml Vial) 3 ml NEB NOW STA Stop: 08/13/20 13:44 Last Admin: 08/13/20 14:17 Dose: 3 ml Documented by: [id number] Dexamethasone Sodium Phosphate (DexamethasonePf 10 Mg/Ml Vial) 10 mg IV NOW ONE Stop: 08/13/20 12:14 Last Admin: 08/13/20 12:41 Dose: 10 mg Documented by: [id number] Piperacillin Sod/Tazobactam Sod (Zosyn) 4.5 gm in 120 mls @ 240 mls/hr IV NOW ONE Stop: 08/13/20 14:12 Last Infusion: 08/13/20 14:36 Dose: 0 mls/hr Documented by: [id number] Admin: 08/13/20 13:48 Dose: 240 mls/hr Documented by: [id number] Sodium Chloride (Nss 1000ml) 500 mls @ 999 mls/hr IV .Q31M ONE Stop: 08/13/20 14:13 Last Infusion: 08/13/20 14:35 Dose: 0 mls/hr Documented by: [id number] Admin: 08/13/20 13:48 Dose: 999 mls/hr Documented by: [id number] Levalbuterol HCl (Levalbuterol Hcl 1.25 Mg/3 Ml Neb) 1.25 mg INH Q4R RASHLE Stop: 09/12/20 16:15 Last Admin: 08/13/20 16:39 Dose: 1.25 mg Documented by: [id number] Metoprolol Tartrate (Metoprolol Tartrate 50 Mg Tab) 50 mg PO ONE ONE Stop: 08/13/20 17:16 Last Admin: 08/13/20 17:30 Dose: 50 mg Documented by: [id number] Imaging Data Radiologist's Impression: Chest X-Ray 08/13/20 12:13 SINGLE VIEW CHEST CLINICAL HISTORY: Sepsis. FINDINGS: An AP, portable, upright chest radiograph is compared to study dated 04/20/2020 and correlated with chest CT dated 10/09/2019. The examination is degraded by portable technique and patient rotation. A 2-lead cardiac pacemaker is unchanged in position. The heart is enlarged noting atherosclerotic calcification of the thoracic aorta. The pulmonary vasculature is noncongested. Emphysema and chronic interstitial thickening is similar to previous. Postoperative change is noted at the right apex. Calcified pleural plaques are similar to previous. Bibasilar opacities likely represent scarring/atelectasis. Large pleural effusion or pneumothorax is seen. The skeletal structures are osteopenic. The bony thorax is grossly intact. IMPRESSION: 1. Cardiomegaly and cardiac pacemaker. There is no radiographic evidence of congestive failure. 2. Bibasilar opacities likely represent scarring/atelectasis. Clinical correlation will be required. 3. Emphysema and chronic parenchymal changes as above. ACT 112: Negative or not required by law. Electronically signed by: Arturo Charles M.D. 08/13/2020 1:10 PM Discharge Plan Visit Data Chief Complaint: Shortness of Breath/Dyspnea Stated Complaint: SOB x3 weeks ED Provider: Thomas Lucia Discharge Problem: COPD (chronic obstructive pulmonary disease), Atrial fibrillation with rapid ventricular response Patient Disposition: Admitted As Inpatient Condition: Good Discharge Instructions Interventions: ED Discharge Assessment Last Done: 08/13/20 15:40 Discharge Problem: COPD (chronic obstructive pulmonary disease) Qualifiers: COPD type: unspecified COPD Qualified Code(s): J44.9 - Chronic obstructive pulmonary disease, unspecified
[2020-08-13 12:40] LABS: HCO3 VBG 29 mmol/L; PCO2 VBG 46 mmHg (38-50); PO2 VBG 26 mmHg; pH VBG 7.42 (7.36-7.41)
[2020-08-13 12:41] LABS: Oxygen Saturation VBG < 60.0 %
[2020-08-13 12:44] LABS: Basophils # (auto) 0.01 K/uL (0-0.2); Basophils % (auto) 0.2 %; Eosinophils # (auto) 0.02 K/uL (0-0.5); Eosinophils % (auto) 0.5 %; Hematocrit (blood only) 30.4 % (42-52); Hemoglobin 9.7 g/dL (14.0-18.0); Immature Granulocytes # (auto) 0.01 K/uL (0.00-0.02); Immature Granulocytes % (auto) 0.2 %; Lymphocytes # (auto) 0.75 K/uL (1.2-3.4); Lymphocytes % (auto) 16.9 %; Mean Corpuscular Hgb Conc 31.9 g/dL (32-36); Mean Corpuscular Volume 84.7 fL (80-100); Monocytes # (auto) 0.17 K/uL (0.11-0.59); Monocytes % (auto) 3.8 %; Neutrophils # (auto) 3.47 K/uL (1.4-6.5); Neutrophils % (auto) 78.4 %; Platelet Count 102 K/uL (130-400); RDW Coefficient of Variation 18.4 % (11.5-14.5); RDW Standard Deviation 57.5 fL (36.4-46.3); Red Blood Count 3.59 M/uL (4.7-6.1); White Blood Count 4.43 K/uL (4.8-10.8)
[2020-08-13 13:00] LABS: INR 2.4 (0.9-1.1); Partial Thromboplastin Ratio 1.5; Partial Thromboplastin Time 39.5 Seconds (21.0-31.0); Prothrombin Time 22.4 Seconds (9.0-12.0)
--- NOTE | 2020-08-13 13:11 | XRay Report ---
SINGLE VIEW CHEST CLINICAL HISTORY: Sepsis. FINDINGS: An AP, portable, upright chest radiograph is compared to study dated 04/20/2020 and correla caprice with chest CT dated 10/09/2019. The examination is degraded by portable technique and patient rota tion. A 2-lead cardiac pacemaker is unchanged in position. The heart is enlarged noting atherosclerot ic calcification of the thoracic aorta. The pulmonary vasculature is noncongested. Emphysema and geological e logger lexx interstitial thickening is similar to previous. Postoperative change is noted at the right apex. Calcified pleural plaques are similar to previous. Bibasilar opacities likely represent scarring/atel ectasis. Large pleural effusion or pneumothorax is seen. The skeletal structures are osteopenic. The bony thorax is grossly intact. IMPRESSION: 1. Cardiomegaly and cardiac pacemaker. There is no radiographic evidence of congestive failure. 2. Bibasilar opacities likely represent scarring/atelectasis. Clinical correlation will be required. 3. Emphysema and chronic parenchymal changes as above. ACT 112: Negative or not required by law. Electronically signed by: Arturo Charles M.D. 08/13/2020 1:10 PM
[2020-08-13 13:17] LABS: Albumin Level 1.8 gm/dl (3.4-5.0); BUN Creatinine Ratio 22.5 (10-20); Calcium 8.1 mg/dl (8.5-10.1); Creatinine Clr Calc Pharmacy 29.6 ml/min; Est GFR (African American) 31.5; Est GFR (Non-African American) 27.2; Potassium 4.6 mmol/L (3.5-5.1)
[2020-08-13 13:28] LABS: Albumin Globulin Ratio 0.5 (0.9-2); Bilirubin,Total 1.1 mg/dl (0.2-1); Globulin 3.8 gm/dl (2.5-4.0); Total Protein 5.6 gm/dl (6.4-8.2); Troponin I 0.056 ng/ml (0-0.045)
[2020-08-13 13:38] LABS: Influenza A virus by PCR Negative (Neg); Influenza B virus by PCR Negative (Neg); RSV by PCR Negative (Neg); SARS CoV2 RNA(COVID-19) InHosp NEGATIVE (Negative)
[2020-08-13] MEDS ORDERED: PIPERACILLIN/TAZOBACTAM 4.5 GM/120 ML BAG IV ONE (13:43)
[2020-08-13] MEDS ORDERED: ALBUT/IPRATROP 3MG/0.5MG NEB 3 ML VIAL NEB STA (13:43)
[2020-08-13] MEDS ORDERED: PIPERACILL/TAZOBAC CONSULT ACTIVE PRN ×2 (13:43→16:16)
[2020-08-13] MEDS ORDERED: SODIUM CHLORIDE 0.9% 1000ML 500 ML IV ONE (13:43)
--- NOTE | 2020-08-13 14:45 | History & Physical Report ---
Date of Service August 13, 2020 Assessment & Plan (1) Acute exacerbation of chronic obstructive pulmonary disease: Increasing shortness of breath for the last 2 weeks Will start nebulized bronchodilator [id number] and intravenous Solu-Medrol Oxygen therapy as needed If his condition does not improve we will need to get pulmonary involved (2) Pneumonia: Has bibasilar infiltration more on the right side History of Pseudomonas pneumonia and bronchiectasis as below We will start intravenous Zosyn and doxycycline Sepsis likely secondary to pneumonia Presented with tachycardia, tachypnea, increased temperature and also lactic acid more than 2 Cannot give measured amount of intravenous fluid due to complicated cardiac condition and edema Will give cautious amount of intravenous fluid and monitor PRP and repeat lactate (3) Bronchiectasis: As above (4) 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: Complicating overall COPD status (5) Acute worsening of stage 3 chronic kidney disease: Creatinine is elevated to 2.18 from a baseline of around around 2 Will hold Lasix for now and give cautious amount of intravenous fluid Monitor PRP (6) Paroxysmal A-fib: Remains tachycardic likely secondary to increased temperature We will continue current medications Has been on Coumadin and INR is therapeutic (7) Chronic diastolic heart failure: History of chronic diastolic heart failure Doubt any acute exacerbation now We will hold Lasix for now because of ongoing sepsis (8) Diabetes type I: Continue current insulin as advised DVT prophylaxis Has been on Coumadin CODE STATUS Full History of Present Illness Chief Complaint: Increasing shortness of breath for the last 2 to 3 weeks and fever for the last few days Primary Care Provider: Kg Monte MD He is an 80-year-old obese male with significant complicated past medical history including severe COPD, chronic kidney disease stage III, atrial fibrillation on Coumadin, bronchiectasis, chronic diastolic heart failure, interstitial lung disease and tracheobronchomalacia apparently has been complaining of increasing shortness of breath for the last 2 to 3 weeks and fever with productive cough for the last few days. He was evaluated by his forest fire officer about 3 to 4 weeks ago and at the time a few medications were changed as a fine tune for his overall condition. Since then his condition has been deteriorating with above symptoms and including edema of the legs and weakness. He denies any chest pain and/or palpitation, any abdominal pain nausea and or vomiting. He was noted to be tachycardic, tachypneic, hypoxic and increased temperature at presentation to the emergency room.) Chest x-ray did show possible pneumonia involving the right lower lung. He was a started with intravenous Zosyn and was advised admission. Allergies Allergy/AdvReac Type Severity Reaction Status Date / Time diltiazem Allergy Mild rash Verified 08/13/20 15:40 fluticasone furoate AdvReac Intermediate Joint Pain Verified 08/13/20 15:40 [From Breo Ellipta] vilanterol AdvReac Intermediate Joint Pain Verified 08/13/20 15:40 [From Breo Ellipta] aspirin AdvReac Mild GI symptoms Verified 08/13/20 15:40 lisinopril AdvReac Mild cough Verified 08/13/20 15:40 propoxyphene AdvReac Mild GI upset, Verified 08/13/20 15:40 diarrhea Home Medications Medication Instructions Recorded Confirmed Type Flonase Sensimist 2 spray INTRANASAL DAILY PRN 07/03/18 08/13/20 History Lantus Solostar U-100 Insulin 20 - 22 unit SUBCUT QAM 07/03/18 08/13/20 History insulin aspart U-100 [Novolog 4 - 6 unit SUBCUT TID 07/03/18 08/13/20 History Flexpen U-100 Insulin] nitroglycerin [Nitrostat] 0.4 mg SUBLINGUAL UD PRN 07/03/18 08/13/20 History simvastatin [Zocor] 20 mg PO QPM 07/03/18 08/13/20 History tamsulosin [Flomax] 0.4 mg PO HS 07/03/18 08/13/20 History metoprolol tartrate 50 mg PO PM 12/25/18 08/13/20 History warfarin 2.5 mg tablet 2.5 mg PO MO 01/10/19 08/13/20 History benzonatate [Tessalon Perles] 100 mg PO BID PRN 07/08/19 08/13/20 History ipratropium 20 mcg-albuterol 100 1 puff INHALATION Q6H #3 inhaler 01/28/20 08/13/20 Rx mcg/actuation mist for inhalation levalbuterol HCl 1.25 mg INHALATION Q4H PRN 04/20/20 08/13/20 History metoprolol tartrate 25 mg PO QAM 04/20/20 08/13/20 History torsemide 20 mg PO DAILY 04/20/20 08/13/20 History triamcinolone acetonide 1 applic TOPICAL BID 04/20/20 08/13/20 History warfarin 1.25 mg PO SUTUWETHFRSA 04/20/20 08/13/20 History digoxin 125 mcg (0.125 mg) tablet 125 mcg PO .MWF tab 07/12/20 08/13/20 History sodium chloride 7 % for 4 ml INHALATION BID #240 ml 07/20/20 08/13/20 Rx nebulization acetylcysteine 100 mg/mL (10 %) 3 ml INHALATION BID #180 ml 07/22/20 08/13/20 Rx solution umeclidinium-vilanterol [Anoro 1 inh INHALATION QAM 08/13/20 08/13/20 History Ellipta] 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)/last check 06/09/19 Pulmonary embolism remote hx Skin cancer left elbow region Surgical History H/O basal cell carcinoma excision REMOVED FROM NOSE H/O hand surgery LEFT MIDDLE FINGER FX REPAIR H/O inguinal hernia repair H/O nasal polypectomy History of bronchoscopy History of cataract surgery RT/LEFT History of colonoscopy History of inguinal hernia repair History of lung biopsy robotic thoracoscopy, pleural biopsy: 08/09/16: Grade view 1, MAC#3 at [facility] History of surgery of head "correct skull abnormality- left temporoparietal ; 1992" History of tooth extraction Status post placement of cardiac pacemaker Family History Brother Diabetes Son Diabetes Family hx of colon cancer Other Heart disease Social History Smoking Status: Former smoker Second Hand Exposure: No; Hx Alcohol Use: Yes Alcohol type: wine Hx Substance Use: No Preferred Language: Korean Communication Ability: Unable Visual Impairment: No Limitations Breaster Required: No marital status: Current Living Situation: Spouse Current Living Situation Comment: at home Feels Safe at Home: Yes Assistive Devices: Denture - Upper, Denture - Lower, Glasses and Oxygen - at Night Review of Systems Review of Systems: All systems reviewed & are unremarkable except as noted in HPI & below Physical Exam Physical Exam: Lying in bed with moderate shortness of breath at rest Constitutional: well developed, well nourished, + acute distress (Due to shortness of breath and cough) and + obese; not ill appearing Eyes: PERRL, conjunctivae normal, anicteric sclerae ENMT: external ear and nose normal, oropharynx normal Neck: trachea midline, no thyromegaly Respiratory: + respiratory distress Auscultation: + diminished lung sounds, + crackles (Bibasilar crackles more on the right than the left) and + wheezes (Bilateral wheezing) Gastrointestinal (Abdomen): Inspection/Auscultation: + abdomen distended and normal bowel sounds Percussion/Palpation: abdomen soft; abdomen nontender Musculoskeletal: No acute arthritis in any joint Skin: Chronic bruising Neurologic: Alert, awake and oriented x3. Generally weak Psychiatric: A+Ox3, euthymic affect Lymphatic: no cervical or axillary lymphadenopathy Results & Data Results & Data ([facility]) Vital Signs (Past 12 Hours) Vital Signs Temp Pulse Pulse Resp BP BP Pulse Ox 08/13/20 14:20 118 H 18 98 08/13/20 13:25 131 H 22 101/68 100 08/13/20 12:22 137 H 137 H 22 102/62 98 08/13/20 12:15 38.5 C H 137 H 22 102/62 98 Laboratory Results Short CBC 08/13/20 Range/Units 12:23 WBC 4.43 L (4.8-10.8) K/uL Hgb 9.7 L (14.0-18.0) g/dL Hct 30.4 L (42-52) % Plt Count 102 L (130-400) K/uL BMP 08/13/20 12:23 Sodium 136 Potassium 4.6 Chloride 98 Carbon Dioxide 29 BUN 49 H Creatinine 2.18 H Glucose 268 H Calcium 8.1 L Cardiac Enzymes 08/13/20 Range/Units 12:23 Troponin I 0.056 H* (0-0.045) ng/ml Liver Function 08/13/20 Range/Units 12:23 Total Bilirubin 1.1 H (0.2-1) mg/dl AST 19 (15-37) U/L ALT 27 (12-78) U/L Alkaline Phosphatase 80 (45-117) U/L Albumin 1.8 L (3.4-5.0) gm/dl Medications Administered Current Inpatient Medications Miscellaneous Information (Piperacill/Tazobac Consult Active) 1 ea N/A UD PRN PRN Reason: Consult Stop: 09/12/20 13:42 Code Status & VTE Plan VTE Prophylaxis Plan VTE Prophylaxis will be ordered: Yes
[2020-08-13] MEDS ORDERED: SODIUM CHLORIDE 0.9% 1000ML 1,000 ML IV SCH (15:00)
[2020-08-13 15:05] LABS: Appearance Urine Clear (Clear); Bacteria Urine Automated Negative (Negative); Bilirubin Urine Negative (Negative); Blood Urine Negative (Negative); Color Urine Yellow; Glucose Urine UA 1+ (Negative); Ketones Urine Trace (Negative); Leukocyte Esterase Urine Negative (Negative); Nitrite Urine Negative (Negative); Protein Urine 1+ (Negative); RBC Urine Automated 0-4 /hpf (0-4); Urobilinogen Urine Negative (Negative)
[2020-08-13] MEDS ORDERED: NITROGLYCERIN SL 0.4 MG/TAB TAB SL PRN (16:16)
[2020-08-13] MEDS ORDERED: IPRATROPIUM BROMIDE/ALBUTEROL respimat INH INH SCH (16:16)
[2020-08-13] MEDS ORDERED: LEVALBUTEROL HCL 1.25 MG/3 ML NEB INH SCH (16:16)
[2020-08-13] MEDS ORDERED: BENZONATATE 100 MG CAPSULE PO PRN (16:16)
[2020-08-13] MEDS ORDERED: FLUTICASONE PROPIONATE NA SPR 16 GM BTL PRN (16:21)
[2020-08-13] MEDS ORDERED: INSULIN ASPART 100 UNITS/ML 3 ML PEN SQ SCH ×2 (16:30→21:00)
[2020-08-13] MEDS ORDERED: METOPROLOL TARTRATE 50 MG TAB PO ONE (17:15)
[2020-08-13] MEDS: WARFARIN SOD 1.25 MG TAB PO SCH (17:26)
[2020-08-13] MEDS: DIGOXIN 0.125 MG TAB PO SCH (17:28)
[2020-08-13] MEDS: DOXYCYCLINE HYCLATE 100 MG in DEXTROSE 5% 100 ML IV SCH (17:38)
[2020-08-13] MEDS: Ipratropium HFA Inhaler (Combivent Respimat P&T Subs) INH SCH (19:26)
[2020-08-13] MEDS: LEVALBUTEROL HCL 1.25 MG/3 ML NEB INH PRN (19:27)
[2020-08-13] MEDS: Albuterol HFA 8 GM Inhaler (Combivent Respimat P&T Subs) INH SCH (19:27)
[2020-08-13] MEDS: ACETYLCYSTEINE 10% INHAL SOLN 4 ML **DISPENSED BY RESP. INH SCH (19:27)
[2020-08-13] MEDS: TAMSULOSIN HCL 0.4 MG CAP PO SCH (20:57)
[2020-08-13] MEDS: PIPERACILLIN/TAZOBACTAM 3.375 GM in DEXTROSE 5% 100 ML IV SCH (20:57)
[2020-08-13] MEDS: methylPREDNISolone 60 MG in SYRINGE 0 ML IV SCH (20:57)
[2020-08-13] MEDS: TRIAMCINOLONE ACET 0.1% CR 15 GM TUBE TOP SCH (20:58)
[2020-08-13] MEDS: SIMVASTATIN 20 MG TAB PO SCH (20:59)
[2020-08-13] MEDS ORDERED: INSULIN HUMAN REGULAR PER UNIT 5 UNITS in SYRINGE 4.95 ML IV ONE (21:00)
[2020-08-13] MEDS ORDERED: methylPREDNISolone 125 MG/2 ML VIAL IV SCH (21:00)
[2020-08-13] MEDS: INSULIN ASPART 100 UNITS/ML 3 ML PEN SQ SCH (21:24)
[2020-08-14] MEDS: PIPERACILLIN/TAZOBACTAM 3.375 GM in DEXTROSE 5% 100 ML IV SCH ×3 (04:01→20:24)
--- NOTE | 2020-08-14 06:33 | Electrocardiogram Report ---
Test Reason : Blood Pressure : / mmHG Vent. Rate : 137 BPM Atrial Rate : 137 BPM P-R Int : 144 ms QRS Dur : 114 ms QT Int : 330 ms P-R-T Axes : 000 -60 109 degrees QTc Int : 498 ms Atrial fibrillation with rapid ventricular response Incomplete right bundle branch block Left anterior fascicular block Abnormal ECG When compared with ECG of 20-APR-2020 13:50, No significant change Confirmed by Kvng Teran ([id number]) on 08/14/2020 6:33:12 AM Referred By: REFERRED SELF Confirmed By:Kvng Teran
[2020-08-14] MEDS: ACETYLCYSTEINE 10% INHAL SOLN 4 ML **DISPENSED BY RESP. INH SCH ×2 (07:22→19:42)
[2020-08-14] MEDS: Albuterol HFA 8 GM Inhaler (Combivent Respimat P&T Subs) INH SCH (07:22)
[2020-08-14] MEDS: Ipratropium HFA Inhaler (Combivent Respimat P&T Subs) INH SCH (07:22)
[2020-08-14] MEDS: LEVALBUTEROL HCL 1.25 MG/3 ML NEB INH PRN ×2 (07:22→19:42)
[2020-08-14 07:40] LABS: Hematocrit (blood only) 28.8 % (42-52); Hemoglobin 9.2 g/dL (14.0-18.0); Lymphocytes # (auto) 0.25 K/uL (1.2-3.4); Lymphocytes % (auto) 8.7 %; Mean Corpuscular Hemoglobin 27.1 pg (25-34); Mean Corpuscular Hgb Conc 31.9 g/dL (32-36); Mean Corpuscular Volume 84.7 fL (80-100); Monocytes # (auto) 0.05 K/uL (0.11-0.59); Monocytes % (auto) 1.7 %; Neutrophils # (auto) 2.58 K/uL (1.4-6.5); Neutrophils % (auto) 89.6 %; Platelet Count 104 K/uL (130-400); RDW Standard Deviation 55.8 fL (36.4-46.3); White Blood Count 2.88 K/uL (4.8-10.8)
[2020-08-14 07:55] LABS: BUN Creatinine Ratio 24.6 (10-20); Calcium 8.2 mg/dl (8.5-10.1); Creatinine Clr Calc Pharmacy 33.9 ml/min; Est GFR (Non-African American) 31.9; Magnesium 2.1 mg/dl (1.8-2.4); Phosphorus 3.5 mg/dl (2.5-4.9); Potassium 5.1 mmol/L (3.5-5.1)
[2020-08-14 08:07] LABS: Ovalocytes 1+
[2020-08-14] MEDS: INSULIN GLARGINE SOLOSTAR 100 UNITS/ML 3 ML PEN SQ SCH (09:33)
[2020-08-14] MEDS: methylPREDNISolone 60 MG in SYRINGE 0 ML IV SCH ×2 (09:34→20:42)
[2020-08-14] MEDS: INSULIN ASPART 100 UNITS/ML 3 ML PEN SQ SCH ×4 (09:34→20:25)
[2020-08-14] MEDS: DOXYCYCLINE HYCLATE 100 MG in DEXTROSE 5% 100 ML IV SCH ×2 (09:34→20:25)
[2020-08-14] MEDS: METOPROLOL TARTRATE 25 MG TAB PO SCH (09:36)
[2020-08-14] MEDS: UMECLIDINIUM/VILANTEROL 62.5/25MCG 7 PUFFS/INHALER INH SCH (09:36)
[2020-08-14] MEDS: TRIAMCINOLONE ACET 0.1% CR 15 GM TUBE TOP SCH ×2 (09:37→20:26)
--- NOTE | 2020-08-14 11:56 | Hospitalist Progress Note ---
Date of Service August 14, 2020 Assessment & Plan (1) Acute exacerbation of chronic obstructive pulmonary disease: Increasing shortness of breath for the last 2 weeks Will start nebulized bronchodilator [id number] and intravenous Solu-Medrol Oxygen therapy as needed If his condition does not improve we will need to get pulmonary involved Clinically much better today and does not have any acute shortness of breath at rest We will continue current management (2) Pneumonia: Has bibasilar infiltration more on the right side History of Pseudomonas pneumonia and bronchiectasis as below We will start intravenous Zosyn and doxycycline No more fever and/or chills and white count remains stable Sepsis likely secondary to pneumonia Presented with tachycardia, tachypnea, increased temperature and also lactic acid more than 2 Cannot give measured amount of intravenous fluid due to complicated cardiac condition and edema Will give cautious amount of intravenous fluid and monitor PRP and repeat lactate Repeat lactate came out to be at 3.4 likely secondary to hypoxia Cannot give any more intravenous fluid due to history of CHF and leg edema (3) Bronchiectasis: As above (4) 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: Complicating overall COPD status (5) Acute worsening of stage 3 chronic kidney disease: Creatinine is elevated to 2.18 from a baseline of around around 2 Will hold Lasix for now and give cautious amount of intravenous fluid Creatinine is improved at 1.91 We will hold off any diuretics at this time (6) Paroxysmal A-fib: Remains tachycardic likely secondary to increased temperature We will continue current medications Has been on Coumadin and INR is therapeutic Heart rate seems to be stable (7) Chronic diastolic heart failure: History of chronic diastolic heart failure Doubt any acute exacerbation now We will hold Lasix for now because of ongoing sepsis (8) Diabetes type I: Continue current insulin as advised Blood sugar remains on the higher side and is likely contributed by steroid DVT prophylaxis Has been on Coumadin CODE STATUS Full Admission and Anticipated Discharge Date Admission Date: August 13, 2020 Subjective 08/14/2020 The patient was seen and examined in medical telemetry unit He has been feeling a lot better since admission His breathing is better and denies any fever and/or chills Denies any nausea and/or vomiting Review of Systems Review of Systems: All systems reviewed and are unremarkable except as noted below Respiratory: + dyspnea on exertion; no cough Physical Exam Physical Exam: Lying in bed with minimal to none shortness of breath at rest Constitutional: well developed, well nourished, + acute distress (Due to shortness of breath and cough) and + obese; not ill appearing Eyes: PERRL, conjunctivae normal, anicteric sclerae ENMT: external ear and nose normal, oropharynx normal Neck: trachea midline, no thyromegaly Respiratory: no respiratory distress Auscultation: + diminished lung sounds, + crackles (Bibasilar crackles more on the right than the left) and + wheezes (Bilateral wheezing) Gastrointestinal (Abdomen): Inspection/Auscultation: + abdomen distended and normal bowel sounds Percussion/Palpation: abdomen soft; abdomen nontender Musculoskeletal: No acute arthritis in any joint Neurologic: Alert, awake and oriented x3. Generally weak Psychiatric: A+Ox3, euthymic affect Lymphatic: no cervical or axillary lymphadenopathy Results & Data Results & Data ([facility]) Vital Signs (Past 12 Hours) Vital Signs Temp Pulse Pulse Resp BP Pulse Ox 08/14/20 11:29 36.3 C L 102 H 16 118/71 97 08/14/20 07:49 89 08/14/20 07:26 36.3 C L 98 H 18 110/66 99 08/14/20 07:22 102 H 18 93 08/14/20 03:47 36.3 C L 99 H 18 100/65 99 08/14/20 00:18 94 H Laboratory Results Short CBC 08/13/20 08/14/20 Range/Units 12:23 06:47 WBC 4.43 L 2.88 L (4.8-10.8) K/uL Hgb 9.7 L 9.2 L (14.0-18.0) g/dL Hct 30.4 L 28.8 L (42-52) % Plt Count 102 L 104 L (130-400) K/uL BMP 08/13/20 08/14/20 12:23 06:47 Sodium 136 135 L Potassium 4.6 5.1 Chloride 98 102 Carbon Dioxide 29 29 BUN 49 H 47 H Creatinine 2.18 H 1.91 H Glucose 268 H 154 H Calcium 8.1 L 8.2 L Cardiac Enzymes 08/13/20 Range/Units 12:23 Troponin I 0.056 H* (0-0.045) ng/ml Liver Function 08/13/20 Range/Units 12:23 Total Bilirubin 1.1 H (0.2-1) mg/dl AST 19 (15-37) U/L ALT 27 (12-78) U/L Alkaline Phosphatase 80 (45-117) U/L Albumin 1.8 L (3.4-5.0) gm/dl Urine 08/13/20 Range/Units 14:51 Urine Color Yellow Urine Appearance Clear (Clear) Urine pH 5.0 (4.5-7.5) Ur Specific [place] 1.020 (1.000-1.030) Urine Protein 1+ H (Negative) Urine Glucose (UA) 1+ H (Negative) Medications Administered Current Inpatient Medications Acetylcysteine (Acetylcysteine 10% Inhal Soln 4 Ml Dispensed By Resp.) 3 ml INH BIDR [facility] Stop: 09/12/20 20:59 Last Admin: 08/14/20 07:22 Dose: 3 ml Documented by: Benzonatate (Benzonatate 100 Mg Capsule) 100 mg PO BID PRN PRN Reason: Cough Stop: 09/12/20 16:15 Digoxin (Digoxin 0.125 Mg Tab) 0.125 mg PO MoWeFr@0900 [facility] Stop: 09/12/20 16:29 Last Admin: 08/13/20 17:28 Dose: 0.125 mg Documented by: Fluticasone Propionate (Fluticasone Propionate Na Spr 16 Gm Btl) 2 sprays NA DAILY PRN PRN Reason: Nasal Congestion Stop: 09/12/20 16:20 Piperacillin Sod/Tazobactam (Sod 3.375 gm/ Dextrose) 115 mls @ 28.75 mls/hr IV Q8H [facility]; Protocol Stop: 08/20/20 19:59 Last Infusion: 08/14/20 09:43 Dose: Infused Documented by: Doxycycline Hyclate 100 mg/ (Dextrose) 110 mls @ 50 mls/hr IV Q12 [facility] Stop: 08/20/20 17:59 Last Infusion: 08/14/20 11:47 Dose: Infused Documented by: Methylprednisolone 60 mg/ (Syringe) 0.96 mls @ 1.5 mls/min IV BID [facility] Stop: 09/12/20 20:59 Last Admin: 08/14/20 09:34 Dose: 1.5 mls/min Documented by: Insulin Aspart (Insulin Aspart 100 Units/Ml 3 Ml Pen) 0 units SQ ACHS [facility] Stop: 09/12/20 20:59 Last Admin: 08/14/20 09:34 Dose: 12 units Documented by: Insulin Glargine (Insulin Glargine Solostar 100 Units/Ml 3 Ml Pen) 22 units SQ QAM [facility] Stop: 09/13/20 08:59 Last Admin: 08/14/20 09:33 Dose: 22 units Documented by: Levalbuterol HCl (Levalbuterol Hcl 1.25 Mg/3 Ml Neb) 1.25 mg INH Q4R PRN PRN Reason: Shortness Of Breath Or Wheezing Stop: 09/12/20 16:15 Last Admin: 08/14/20 07:22 Dose: 1.25 mg Documented by: Metoprolol Tartrate (Metoprolol Tartrate 50 Mg Tab) 50 mg PO PM [facility] Stop: 09/12/20 20:59 Metoprolol Tartrate (Metoprolol Tartrate 25 Mg Tab) 25 mg PO QAM [facility] Stop: 09/13/20 08:59 Last Admin: 08/14/20 09:36 Dose: 25 mg Documented by: Miscellaneous Information (Piperacill/Tazobac Consult Active) 1 ea N/A UD PRN PRN Reason: Consult Stop: 09/12/20 16:15 Nitroglycerin (Nitroglycerin Sl 0.4 Mg/Tab Tab) 0.4 mg SL UD PRN PRN Reason: Chest Pain Stop: 09/12/20 16:15 Simvastatin (Simvastatin 20 Mg Tab) 20 mg PO QPM [facility] Stop: 09/12/20 20:59 Last Admin: 08/13/20 20:59 Dose: 20 mg Documented by: Tamsulosin HCl (Tamsulosin Hcl 0.4 Mg Cap) 0.4 mg PO HS [facility] Stop: 09/12/20 20:59 Last Admin: 08/13/20 20:57 Dose: 0.4 mg Documented by: Triamcinolone Acetonide (Triamcinolone Acet 0.1% Cr 15 Gm Tube) 1 appln TOP BID [facility] Stop: 09/12/20 20:59 Last Admin: 08/14/20 09:37 Dose: 1 appln Documented by: Umeclidinium/Vilanterol (Umeclidinium/Vilanterol 62.5/25mcg 7 Puffs/Inhaler) 1 puffs INH DAILY [facility] Stop: 09/13/20 08:59 Last Admin: 08/14/20 09:36 Dose: 1 puffs Documented by: Warfarin Sodium (Warfarin Sod 1.25 Mg Tab) 1.25 mg PO [id number]@1600 [facility] Stop: 09/12/20 16:29 Last Admin: 08/13/20 17:26 Dose: 1.25 mg Documented by: Warfarin Sodium (Warfarin Sod 2.5 Mg Tab) 2.5 mg PO Mo@1600 [facility] Stop: 09/15/20 15:59
[2020-08-14] MEDS: WARFARIN SOD 1.25 MG TAB PO SCH (17:13)
[2020-08-14] MEDS: SIMVASTATIN 20 MG TAB PO SCH (20:26)
[2020-08-14] MEDS: TAMSULOSIN HCL 0.4 MG CAP PO SCH (20:26)
[2020-08-14] MEDS: METOPROLOL TARTRATE 50 MG TAB PO SCH (20:27)
[2020-08-15] MEDS: PIPERACILLIN/TAZOBACTAM 3.375 GM in DEXTROSE 5% 100 ML IV SCH ×3 (04:04→20:40)
[2020-08-15 05:57] LABS: Hematocrit (blood only) 27.4 % (42-52); Hemoglobin 9.1 g/dL (14.0-18.0); Immature Granulocytes # (auto) 0.01 K/uL (0.00-0.02); Immature Granulocytes % (auto) 0.2 %; Lymphocytes # (auto) 0.28 K/uL (1.2-3.4); Lymphocytes % (auto) 4.3 %; Mean Corpuscular Hemoglobin 27.6 pg (25-34); Mean Corpuscular Hgb Conc 33.2 g/dL (32-36); Monocytes % (auto) 3.1 %; Neutrophils % (auto) 92.4 %; Platelet Count 105 K/uL (130-400); RDW Coefficient of Variation 17.5 % (11.5-14.5); RDW Standard Deviation 53.8 fL (36.4-46.3); White Blood Count 6.49 K/uL (4.8-10.8)
[2020-08-15 06:27] LABS: BUN Creatinine Ratio 34.3 (10-20); Calcium 7.9 mg/dl (8.5-10.1); Creatinine Clr Calc Pharmacy 40.6 ml/min; Est GFR (African American) 46.2; Est GFR (Non-African American) 39.8; Magnesium 2.1 mg/dl (1.8-2.4); Phosphorus 3.5 mg/dl (2.5-4.9); Potassium 4.6 mmol/L (3.5-5.1)
[2020-08-15] MEDS: LEVALBUTEROL HCL 1.25 MG/3 ML NEB INH PRN ×2 (07:15→20:08)
[2020-08-15] MEDS: ACETYLCYSTEINE 10% INHAL SOLN 4 ML **DISPENSED BY RESP. INH SCH ×2 (07:15→20:08)
[2020-08-15] MEDS: METOPROLOL TARTRATE 25 MG TAB PO SCH (08:20)
[2020-08-15] MEDS: INSULIN GLARGINE SOLOSTAR 100 UNITS/ML 3 ML PEN SQ SCH (08:21)
[2020-08-15] MEDS: TRIAMCINOLONE ACET 0.1% CR 15 GM TUBE TOP SCH ×2 (08:21→20:41)
[2020-08-15] MEDS: methylPREDNISolone 60 MG in SYRINGE 0 ML IV SCH (08:21)
[2020-08-15] MEDS: UMECLIDINIUM/VILANTEROL 62.5/25MCG 7 PUFFS/INHALER INH SCH (08:21)
[2020-08-15] MEDS: INSULIN ASPART 100 UNITS/ML 3 ML PEN SQ SCH ×4 (08:22→21:25)
[2020-08-15] MEDS: DOXYCYCLINE HYCLATE 100 MG in DEXTROSE 5% 100 ML IV SCH ×2 (08:26→22:03)
--- NOTE | 2020-08-15 11:45 | Hospitalist Progress Note ---
Date of Service August 15, 2020 Assessment & Plan (1) Acute exacerbation of chronic obstructive pulmonary disease: Increasing shortness of breath for the last 2 weeks Will start nebulized bronchodilator [id number] and intravenous Solu-Medrol Oxygen therapy as needed If his condition does not improve we will need to get pulmonary involved Clinically much better today and does not have any acute shortness of breath at rest Shows further improvement Uses oxygen at home at nighttime ,he does not use any oxygen at home with ambulation We will decrease the dose of steroid and convert to oral prednisone on discharge tomorrow Will needed to do steps O2 saturation before discharging home tomorrow (2) Pneumonia: Has bibasilar infiltration more on the right side History of Pseudomonas pneumonia and bronchiectasis as below We will start intravenous Zosyn and doxycycline No more fever and/or chills and white count remains stable Has been improving with treatment Likely to give Levaquin on discharge as before Sepsis likely secondary to pneumonia Presented with tachycardia, tachypnea, increased temperature and also lactic acid more than 2 Cannot give measured amount of intravenous fluid due to complicated cardiac condition and edema Will give cautious amount of intravenous fluid and monitor PRP and repeat lactate Repeat lactate came out to be at 3.4 likely secondary to hypoxia Cannot give any more intravenous fluid due to history of CHF and leg edema (3) Bronchiectasis: As above (4) 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: Complicating overall COPD status (5) Acute worsening of stage 3 chronic kidney disease: Creatinine is elevated to 2.18 from a baseline of around around 2 Will hold Lasix for now and give cautious amount of intravenous fluid Creatinine is improved at 1.91 We will hold off any diuretics at this time Creatinine has been improving (6) Paroxysmal A-fib: Remains tachycardic likely secondary to increased temperature We will continue current medications Has been on Coumadin and INR is therapeutic Heart rate seems to be stable (7) Chronic diastolic heart failure: History of chronic diastolic heart failure Doubt any acute exacerbation now We will hold Lasix for now because of ongoing sepsis We will continue with smaller doses of fluid medications, Lasix were torsemide on discharge (8) Diabetes type I: Continue current insulin as advised Blood sugar remains on the higher side and is likely contributed by steroid DVT prophylaxis Has been on Coumadin CODE STATUS Full Admission and Anticipated Discharge Date Admission Date: August 13, 2020 Subjective 08/14/2020 The patient was seen and examined in medical telemetry unit He has been feeling a lot better since admission His breathing is better and denies any fever and/or chills Denies any nausea and/or vomiting 08/15/2020 The patient was seen and examined in medical telemetry unit He has been feeling much better and complains to have less shortness of breath at rest and also less cough Denies any fever and/or chills, no nausea and or vomiting Review of Systems Review of Systems: All systems reviewed and are unremarkable except as noted below Respiratory: + dyspnea on exertion; no cough Physical Exam Physical Exam: Lying in bed with minimal to none shortness of breath at rest Constitutional: well developed, well nourished, + acute distress (Due to shortness of breath and cough) and + obese; not ill appearing Eyes: PERRL, conjunctivae normal, anicteric sclerae ENMT: external ear and nose normal, oropharynx normal Neck: trachea midline, no thyromegaly Respiratory: no respiratory distress Auscultation: + diminished lung sounds, + crackles (Bibasilar crackles more on the right than the left) and + wheezes (Bilateral wheezing) Gastrointestinal (Abdomen): Inspection/Auscultation: + abdomen distended and normal bowel sounds Percussion/Palpation: abdomen soft; abdomen nontender Musculoskeletal: No acute arthritis in any joint Neurologic: Alert, awake and oriented x3 Psychiatric: A+Ox3, euthymic affect Lymphatic: no cervical or axillary lymphadenopathy Results & Data Results & Data ([facility]) Vital Signs (Past 12 Hours) Vital Signs Temp Pulse Pulse Resp BP BP Pulse Ox 08/15/20 11:17 36.5 C 96 H 18 108/68 100 08/15/20 07:29 103 H 08/15/20 07:22 36.3 C L 104 H 18 113/76 99 08/15/20 07:16 95 H 18 99 08/15/20 03:07 36.4 C L 100 H 16 128/73 98 08/15/20 00:00 110 H Laboratory Results Short CBC 08/15/20 Range/Units 05:46 WBC 6.49 (4.8-10.8) K/uL Hgb 9.1 L (14.0-18.0) g/dL Hct 27.4 L (42-52) % Plt Count 105 L (130-400) K/uL [facility] 08/15/20 05:46 Sodium 138 Potassium 4.6 Chloride 104 Carbon Dioxide 29 BUN 54 H Creatinine 1.59 H D Glucose 101 H Calcium 7.9 L Medications Administered Current Inpatient Medications Acetylcysteine (Acetylcysteine 10% Inhal Soln 4 Ml Dispensed By Resp.) 3 ml INH BIDR [facility] Stop: 09/12/20 20:59 Last Admin: 08/15/20 07:15 Dose: 3 ml Documented by: Benzonatate (Benzonatate 100 Mg Capsule) 100 mg PO BID PRN PRN Reason: Cough Stop: 09/12/20 16:15 Digoxin (Digoxin 0.125 Mg Tab) 0.125 mg PO MoWeFr@0900 [facility] Stop: 09/12/20 16:29 Last Admin: 08/13/20 17:28 Dose: 0.125 mg Documented by: Fluticasone Propionate (Fluticasone Propionate Na Spr 16 Gm Btl) 2 sprays NA DAILY PRN PRN Reason: Nasal Congestion Stop: 09/12/20 16:20 Piperacillin Sod/Tazobactam (Sod 3.375 gm/ Dextrose) 115 mls @ 28.75 mls/hr IV Q8H [facility]; Protocol Stop: 08/20/20 19:59 Last Infusion: 08/15/20 08:36 Dose: Infused Documented by: Doxycycline Hyclate 100 mg/ (Dextrose) 110 mls @ 50 mls/hr IV Q12 [facility] Stop: 08/20/20 17:59 Last Admin: 08/15/20 08:26 Dose: 50 mls/hr Documented by: Methylprednisolone 60 mg/ (Syringe) 0.96 mls @ 1.5 mls/min IV BID [facility] Stop: 09/12/20 20:59 Last Admin: 08/15/20 08:21 Dose: 1.5 mls/min Documented by: Insulin Aspart (Insulin Aspart 100 Units/Ml 3 Ml Pen) 0 units SQ ACHS [facility] Stop: 09/12/20 20:59 Last Admin: 08/15/20 08:22 Dose: 10 units Documented by: Insulin Glargine (Insulin Glargine Solostar 100 Units/Ml 3 Ml Pen) 22 units SQ QAM [facility] Stop: 09/13/20 08:59 Last Admin: 08/15/20 08:21 Dose: 22 units Documented by: Levalbuterol HCl (Levalbuterol Hcl 1.25 Mg/3 Ml Neb) 1.25 mg INH Q4R PRN PRN Reason: Shortness Of Breath Or Wheezing Stop: 09/12/20 16:15 Last Admin: 08/15/20 07:15 Dose: 1.25 mg Documented by: Metoprolol Tartrate (Metoprolol Tartrate 50 Mg Tab) 50 mg PO PM [facility] Stop: 09/12/20 20:59 Last Admin: 08/14/20 20:27 Dose: 50 mg Documented by: Metoprolol Tartrate (Metoprolol Tartrate 25 Mg Tab) 25 mg PO QAM [facility] Stop: 09/13/20 08:59 Last Admin: 08/15/20 08:20 Dose: 25 mg Documented by: Miscellaneous Information (Piperacill/Tazobac Consult Active) 1 ea N/A UD PRN PRN Reason: Consult Stop: 09/12/20 16:15 Nitroglycerin (Nitroglycerin Sl 0.4 Mg/Tab Tab) 0.4 mg SL UD PRN PRN Reason: Chest Pain Stop: 09/12/20 16:15 Simvastatin (Simvastatin 20 Mg Tab) 20 mg PO QPM [facility] Stop: 09/12/20 20:59 Last Admin: 08/14/20 20:26 Dose: 20 mg Documented by: Tamsulosin HCl (Tamsulosin Hcl 0.4 Mg Cap) 0.4 mg PO HS [facility] Stop: 09/12/20 20:59 Last Admin: 08/14/20 20:26 Dose: 0.4 mg Documented by: Triamcinolone Acetonide (Triamcinolone Acet 0.1% Cr 15 Gm Tube) 1 appln TOP BID [facility] Stop: 09/12/20 20:59 Last Admin: 08/15/20 08:21 Dose: 1 appln Documented by: Umeclidinium/Vilanterol (Umeclidinium/Vilanterol 62.5/25mcg 7 Puffs/Inhaler) 1 puffs INH DAILY [facility] Stop: 09/13/20 08:59 Last Admin: 08/15/20 08:21 Dose: 1 puffs Documented by: Warfarin Sodium (Warfarin Sod 1.25 Mg Tab) 1.25 mg PO SuTuWeThFrSa@1600 [facility] Stop: 09/12/20 16:29 Last Admin: 08/14/20 17:13 Dose: 1.25 mg Documented by: Warfarin Sodium (Warfarin Sod 2.5 Mg Tab) 2.5 mg PO Mo@1600 [facility] Stop: 09/15/20 15:59
[2020-08-15] MEDS: WARFARIN SOD 1.25 MG TAB PO SCH (16:42)
[2020-08-15] MEDS: TAMSULOSIN HCL 0.4 MG CAP PO SCH (20:41)
[2020-08-15] MEDS: METOPROLOL TARTRATE 50 MG TAB PO SCH (20:46)
[2020-08-15] MEDS: SIMVASTATIN 20 MG TAB PO SCH (20:46)
[2020-08-15] MEDS: methylPREDNISolone 40 MG in SYRINGE 0 ML IV SCH (20:49)
[2020-08-15] MEDS ORDERED: SODIUM CHLORIDE 0.9% 500 ML IV SCH (23:15)
[2020-08-16] MEDS: PIPERACILLIN/TAZOBACTAM 3.375 GM in DEXTROSE 5% 100 ML IV SCH ×3 (04:11→21:05)
[2020-08-16] MEDS: ACETYLCYSTEINE 10% INHAL SOLN 4 ML **DISPENSED BY RESP. INH SCH ×2 (07:15→20:02)
[2020-08-16] MEDS: LEVALBUTEROL HCL 1.25 MG/3 ML NEB INH PRN ×2 (07:15→20:02)
[2020-08-16 07:23] LABS: Prothrombin Time > 90.0 Seconds (9.0-12.0)
[2020-08-16 07:34] LABS: INR > 10.7 (0.9-1.1)
[2020-08-16 07:35] LABS: BUN Creatinine Ratio 35.1 (10-20); Calcium 8.1 mg/dl (8.5-10.1); Creatinine Clr Calc Pharmacy 42.5 ml/min; Est GFR (African American) 48.8; Est GFR (Non-African American) 42.1; Potassium 4.6 mmol/L (3.5-5.1)
[2020-08-16] MEDS ORDERED: PHYTONADIONE 5 MG TAB PO STA (07:50)
[2020-08-16] MEDS: UMECLIDINIUM/VILANTEROL 62.5/25MCG 7 PUFFS/INHALER INH SCH (08:43)
[2020-08-16] MEDS: METOPROLOL TARTRATE 25 MG TAB PO SCH (08:43)
[2020-08-16] MEDS: DIGOXIN 0.125 MG TAB PO SCH (08:43)
[2020-08-16] MEDS: methylPREDNISolone 40 MG in SYRINGE 0 ML IV SCH (08:43)
[2020-08-16] MEDS: INSULIN GLARGINE SOLOSTAR 100 UNITS/ML 3 ML PEN SQ SCH (08:44)
[2020-08-16] MEDS: INSULIN ASPART 100 UNITS/ML 3 ML PEN SQ SCH ×4 (08:44→21:41)
[2020-08-16] MEDS: TRIAMCINOLONE ACET 0.1% CR 15 GM TUBE TOP SCH ×2 (08:44→21:06)
[2020-08-16] MEDS: DOXYCYCLINE HYCLATE 100 MG in DEXTROSE 5% 100 ML IV SCH ×2 (08:52→21:05)
[2020-08-16] MEDS: TORSEMIDE 20 MG TAB PO SCH (09:27)
[2020-08-16 12:48] LABS: Beta-Hydroxybutyrate 7.62 mg/dl (0.2-2.81)
--- NOTE | 2020-08-16 14:03 | Hospitalist Progress Note ---
Date of Service August 16, 2020 Assessment & Plan (1) Acute exacerbation of chronic obstructive pulmonary disease: Increasing shortness of breath for the last 2 weeks Will start nebulized bronchodilator [id number] and intravenous Solu-Medrol Oxygen therapy as needed If his condition does not improve we will need to get pulmonary involved Clinically much better today and does not have any acute shortness of breath at rest Shows further improvement Uses oxygen at home at nighttime ,he does not use any oxygen at home with ambulation We will decrease the dose of steroid and convert to oral prednisone on discharge tomorrow Has had low blood pressure yesterday and received 500 mL of normal saline bolus Respiratory status remains stable We will get a 2 8 steps O2 saturation before discharge tomorrow (2) Pneumonia: Has bibasilar infiltration more on the right side History of Pseudomonas pneumonia and bronchiectasis as below We will start intravenous Zosyn and doxycycline No more fever and/or chills and white count remains stable Has been improving with treatment Likely to give Levaquin on discharge as before Sepsis likely secondary to pneumonia Presented with tachycardia, tachypnea, increased temperature and also lactic acid more than 2 Cannot give measured amount of intravenous fluid due to complicated cardiac condition and edema Will give cautious amount of intravenous fluid and monitor PRP and repeat lactate Repeat lactate came out to be at 3.4 likely secondary to hypoxia Cannot give any more intravenous fluid due to history of CHF and leg edema (3) Bronchiectasis: As above (4) 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: Complicating overall COPD status (5) Acute worsening of stage 3 chronic kidney disease: Creatinine is elevated to 2.18 from a baseline of around around 2 Will hold Lasix for now and give cautious amount of intravenous fluid Creatinine is improved at 1.91 We will hold off any diuretics at this time Creatinine has been improving We will restart his torsemide (6) Paroxysmal A-fib: Remains tachycardic likely secondary to increased temperature We will continue current medications Has been on Coumadin and INR is therapeutic Heart rate seems to be stable (7) Chronic diastolic heart failure: History of chronic diastolic heart failure Doubt any acute exacerbation now We will hold Lasix for now because of ongoing sepsis We will continue with smaller doses of fluid medications, Lasix were torsemide on discharge (8) Diabetes type I: Continue current insulin as advised Blood sugar remains on the higher side and is likely contributed by steroid DVT prophylaxis Has been on Coumadin INR noted to be high at more than 10 Will give 2.5 mg of oral vitamin K and hold Coumadin We will recheck Coumadin tomorrow CODE STATUS Full Admission and Anticipated Discharge Date Admission Date: August 13, 2020 Subjective 08/14/2020 The patient was seen and examined in medical telemetry unit He has been feeling a lot better since admission His breathing is better and denies any fever and/or chills Denies any nausea and/or vomiting 08/15/2020 The patient was seen and examined in medical telemetry unit He has been feeling much better and complains to have less shortness of breath at rest and also less cough Denies any fever and/or chills, no nausea and or vomiting 08/16/2020 The patient was seen and examined in medical telemetry unit He was noted to have low blood pressure last night and received 500 mL bolus of normal saline She was also noted to have an INR of more than 10 without any bleeding Denies any significant symptoms at rest Review of Systems Review of Systems: All systems reviewed and are unremarkable except as noted below Respiratory: + dyspnea on exertion; no cough Physical Exam Physical Exam: Sitting on a chair without any acute distress Constitutional: well developed, well nourished, + acute distress (Due to shortness of breath and cough) and + obese; not ill appearing Eyes: PERRL, conjunctivae normal, anicteric sclerae ENMT: external ear and nose normal, oropharynx normal Neck: trachea midline, no thyromegaly Respiratory: no respiratory distress Auscultation: + diminished lung sounds, + crackles (Bibasilar crackles more on the right than the left) and + wheezes (Bilateral wheezing) Cardiovascular: Rate/Rhythm: regular rate and regular rhythm Heart Sounds: no murmur Extremities: + edema (1+ edema bilaterally) Gastrointestinal (Abdomen): Inspection/Auscultation: + abdomen distended and normal bowel sounds Percussion/Palpation: abdomen soft; abdomen nontender Musculoskeletal: No acute arthritis in any joint Neurologic: Alert, awake and oriented x3 Psychiatric: A+Ox3, euthymic affect Lymphatic: no cervical or axillary lymphadenopathy Results & Data Results & Data ([facility]) Vital Signs (Past 12 Hours) Vital Signs Temp Pulse Pulse Resp BP BP Pulse Ox 08/16/20 11:34 36.3 C L 72 18 98/66 L 90 04/19/21 08:43 124 H 08/16/20 08:00 97 H 08/16/20 07:21 97 H 18 99 08/16/20 07:12 36.5 C 96 H 18 125/86 99 08/16/20 03:55 36.3 C L 106 H 18 119/69 92 Laboratory Results BMP 08/16/20 08/16/20 06:39 11:42 Sodium 139 Potassium 4.6 Chloride 105 Carbon Dioxide 28 BUN 53 H Creatinine 1.52 H Glucose 89 387 H* Calcium 8.1 L Medications Administered Current Inpatient Medications Acetylcysteine (Acetylcysteine 10% Inhal Soln 4 Ml Dispensed By Resp.) 3 ml INH BIDR [facility] Stop: 09/12/20 20:59 Last Admin: 08/16/20 07:15 Dose: 3 ml Documented by: Benzonatate (Benzonatate 100 Mg Capsule) 100 mg PO BID PRN PRN Reason: Cough Stop: 09/12/20 16:15 Digoxin (Digoxin 0.125 Mg Tab) 0.125 mg PO MoWeFr@0900 [facility] Stop: 09/12/20 16:29 Last Admin: 08/16/20 08:43 Dose: 0.125 mg Documented by: Fluticasone Propionate (Fluticasone Propionate Na Spr 16 Gm Btl) 2 sprays NA DAILY PRN PRN Reason: Nasal Congestion Stop: 09/12/20 16:20 Piperacillin Sod/Tazobactam (Sod 3.375 gm/ Dextrose) 115 mls @ 28.75 mls/hr IV Q8H [facility]; Protocol Stop: 08/20/20 19:59 Last Admin: 08/16/20 12:44 Dose: 28.8 mls/hr Documented by: Doxycycline Hyclate 100 mg/ (Dextrose) 110 mls @ 50 mls/hr IV Q12 [facility] Stop: 08/20/20 17:59 Last Infusion: 08/16/20 11:30 Dose: Infused Documented by: Insulin Aspart (Insulin Aspart 100 Units/Ml 3 Ml Pen) 0 units SQ ACHS [facility] Stop: 09/12/20 20:59 Last Admin: 08/16/20 12:45 Dose: 23 units Documented by: Insulin Glargine (Insulin Glargine Solostar 100 Units/Ml 3 Ml Pen) 22 units SQ QAM [facility] Stop: 09/13/20 08:59 Last Admin: 08/16/20 08:44 Dose: 22 units Documented by: Levalbuterol HCl (Levalbuterol Hcl 1.25 Mg/3 Ml Neb) 1.25 mg INH Q4R PRN PRN Reason: Shortness Of Breath Or Wheezing Stop: 09/12/20 16:15 Last Admin: 08/16/20 07:15 Dose: 1.25 mg Documented by: Metoprolol Tartrate (Metoprolol Tartrate 50 Mg Tab) 50 mg PO PM [facility] Stop: 09/12/20 20:59 Last Admin: 08/15/20 20:46 Dose: 50 mg Documented by: Metoprolol Tartrate (Metoprolol Tartrate 25 Mg Tab) 25 mg PO QAM [facility] Stop: 09/13/20 08:59 Last Admin: 08/16/20 08:43 Dose: 25 mg Documented by: Miscellaneous Information (Piperacill/Tazobac Consult Active) 1 ea N/A UD PRN PRN Reason: Consult Stop: 09/12/20 16:15 Nitroglycerin (Nitroglycerin Sl 0.4 Mg/Tab Tab) 0.4 mg SL UD PRN PRN Reason: Chest Pain Stop: 09/12/20 16:15 Simvastatin (Simvastatin 20 Mg Tab) 20 mg PO QPM [facility] Stop: 09/12/20 20:59 Last Admin: 08/15/20 20:46 Dose: 20 mg Documented by: Tamsulosin HCl (Tamsulosin Hcl 0.4 Mg Cap) 0.4 mg PO HS [facility] Stop: 09/12/20 20:59 Last Admin: 08/15/20 20:41 Dose: 0.4 mg Documented by: Torsemide (Torsemide 20 Mg Tab) 20 mg PO DAILY [facility] Stop: 09/15/20 08:59 Last Admin: 08/16/20 09:27 Dose: 20 mg Documented by: Triamcinolone Acetonide (Triamcinolone Acet 0.1% Cr 15 Gm Tube) 1 appln TOP BID [facility] Stop: 09/12/20 20:59 Last Admin: 08/16/20 08:44 Dose: 1 appln Documented by: Umeclidinium/Vilanterol (Umeclidinium/Vilanterol 62.5/25mcg 7 Puffs/Inhaler) 1 puffs INH DAILY [facility] Stop: 09/13/20 08:59 Last Admin: 08/16/20 08:43 Dose: 1 puffs Documented by: Warfarin Sodium (Warfarin Sod 1.25 Mg Tab) 1.25 mg PO [id number]@1600 [facility] Stop: 09/12/20 16:29 Last Admin: 08/15/20 16:42 Dose: 1.25 mg Documented by: Warfarin Sodium (Warfarin Sod 2.5 Mg Tab) 2.5 mg PO Mo@1600 [facility] Stop: 09/15/20 15:59
[2020-08-16] MEDS ORDERED: WARFARIN SOD 2.5 MG TAB PO SCH (16:00)
[2020-08-16] MEDS ORDERED: INSULIN ASPART 100 UNITS/ML 3 ML PEN SC ONE (16:51)
[2020-08-16] MEDS: SIMVASTATIN 20 MG TAB PO SCH (21:05)
[2020-08-16] MEDS: TAMSULOSIN HCL 0.4 MG CAP PO SCH (21:06)
[2020-08-16] MEDS: METOPROLOL TARTRATE 50 MG TAB PO SCH (21:06)
[2020-08-16] MEDS ORDERED: INSULIN HUMAN REGULAR PER UNIT 5 UNITS in SYRINGE 4.95 ML IV STA (21:13)
[2020-08-17] MEDS: PIPERACILLIN/TAZOBACTAM 3.375 GM in DEXTROSE 5% 100 ML IV SCH ×2 (04:06→11:55)
[2020-08-17 06:25] LABS: Hemoglobin 9.5 g/dL (14.0-18.0); Immature Granulocytes # (auto) 0.01 K/uL (0.00-0.02); Immature Granulocytes % (auto) 0.1 %; Lymphocytes # (auto) 0.55 K/uL (1.2-3.4); Lymphocytes % (auto) 7.1 %; Mean Corpuscular Hgb Conc 32.8 g/dL (32-36); Mean Corpuscular Volume 82.4 fL (80-100); Mean Platelet Volume 10.6 fL (7.4-10.4); Monocytes % (auto) 7.8 %; Neutrophils # (auto) 6.57 K/uL (1.4-6.5); Platelet Count 172 K/uL (130-400); RDW Coefficient of Variation 17.9 % (11.5-14.5); RDW Standard Deviation 53.8 fL (36.4-46.3); Red Blood Count 3.52 M/uL (4.7-6.1); White Blood Count 7.73 K/uL (4.8-10.8)
[2020-08-17 06:35] LABS: INR 1.9 (0.9-1.1); Prothrombin Time 18.4 Seconds (9.0-12.0)
[2020-08-17 06:55] LABS: BUN Creatinine Ratio 34.2 (10-20); Est GFR (African American) 41.1; Est GFR (Non-African American) 35.5; Potassium 4.3 mmol/L (3.5-5.1)
[2020-08-17] MEDS: ACETYLCYSTEINE 10% INHAL SOLN 4 ML **DISPENSED BY RESP. INH SCH (07:32)
[2020-08-17] MEDS: LEVALBUTEROL HCL 1.25 MG/3 ML NEB INH PRN (07:32)
[2020-08-17] MEDS: UMECLIDINIUM/VILANTEROL 62.5/25MCG 7 PUFFS/INHALER INH SCH (08:22)
[2020-08-17] MEDS: TRIAMCINOLONE ACET 0.1% CR 15 GM TUBE TOP SCH (08:22)
[2020-08-17] MEDS: METOPROLOL TARTRATE 25 MG TAB PO SCH (08:25)
[2020-08-17] MEDS: TORSEMIDE 20 MG TAB PO SCH (08:31)
[2020-08-17] MEDS: DOXYCYCLINE HYCLATE 100 MG in DEXTROSE 5% 100 ML IV SCH (08:37)
[2020-08-17] MEDS: INSULIN ASPART 100 UNITS/ML 3 ML PEN SQ SCH ×2 (08:37→12:09)
[2020-08-17] MEDS: INSULIN GLARGINE SOLOSTAR 100 UNITS/ML 3 ML PEN SQ SCH (08:38)
[2020-08-17] MEDS ORDERED: SODIUM CHLORIDE 0.9% 1000ML 500 ML IV ONE (08:51)
--- NOTE | 2020-08-17 11:27 | Hospitalist Progress Note ---
Date of Service August 17, 2020 Assessment & Plan (1) Acute exacerbation of chronic obstructive pulmonary disease: Increasing shortness of breath for the last 2 weeks Will start nebulized bronchodilator [id number] and intravenous Solu-Medrol Oxygen therapy as needed If his condition does not improve we will need to get pulmonary involved Clinically much better today and does not have any acute shortness of breath at rest Shows further improvement Uses oxygen at home at nighttime ,he does not use any oxygen at home with ambulation We will decrease the dose of steroid and convert to oral prednisone on discharge tomorrow Has had low blood pressure yesterday and received 500 mL of normal saline bolus Respiratory status remains stable We will get a 2 steps O2 saturation before discharge tomorrow Remains stable at rest-awaiting PT and OT evaluation and to do steps O2 saturation test Likely to be discharged this afternoon (2) Pneumonia: Has bibasilar infiltration more on the right side History of Pseudomonas pneumonia and bronchiectasis as below We will start intravenous Zosyn and doxycycline No more fever and/or chills and white count remains stable Has been improving with treatment Likely to give Levaquin on discharge as before Sepsis likely secondary to pneumonia Presented with tachycardia, tachypnea, increased temperature and also lactic acid more than 2 Cannot give measured amount of intravenous fluid due to complicated cardiac condition and edema Will give cautious amount of intravenous fluid and monitor PRP and repeat lactate Repeat lactate came out to be at 3.4 likely secondary to hypoxia Cannot give any more intravenous fluid due to history of CHF and leg edema (3) Bronchiectasis: As above (4) 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: Complicating overall COPD status (5) Acute worsening of stage 3 chronic kidney disease: Creatinine is elevated to 2.18 from a baseline of around around 2 Will hold Lasix for now and give cautious amount of intravenous fluid Creatinine is improved at 1.91 We will hold off any diuretics at this time Creatinine has been improving Creatinine has been at his baseline (6) Paroxysmal A-fib: Remains tachycardic likely secondary to increased temperature We will continue current medications Has been on Coumadin and INR is therapeutic Heart rate seems to be stable (7) Chronic diastolic heart failure: History of chronic diastolic heart failure Doubt any acute exacerbation now We will hold Lasix for now because of ongoing sepsis We will continue with smaller doses of fluid medications, Lasix were torsemide on discharge He was advised to weigh himself about 2-3 times a week and if the weight gain is more than 3 to 5 pounds then he can use torsemide for a day or 2 to improve the weight (8) Diabetes type I: Continue current insulin as advised Blood sugar remains on the higher side and is likely contributed by steroid DVT prophylaxis Has been on Coumadin INR noted to be high at more than 10 Will give 2.5 mg of oral vitamin K and hold Coumadin INR is 1. 9 today-has an appointment with the coagulation clinic as an outpatient CODE STATUS Full Admission and Anticipated Discharge Date Admission Date: August 13, 2020 Subjective 08/14/2020 The patient was seen and examined in medical telemetry unit He has been feeling a lot better since admission His breathing is better and denies any fever and/or chills Denies any nausea and/or vomiting 08/15/2020 The patient was seen and examined in medical telemetry unit He has been feeling much better and complains to have less shortness of breath at rest and also less cough Denies any fever and/or chills, no nausea and or vomiting 08/16/2020 The patient was seen and examined in medical telemetry unit He was noted to have low blood pressure last night and received 500 mL bolus of normal saline She was also noted to have an INR of more than 10 without any bleeding Denies any significant symptoms at rest 08/17/2020 The patient was seen and examined in medical telemetry unit He has been feeling a lot better but noted to have a low blood pressure at systolic 80s this morning without any symptoms He was given a bolus of 500 mL of normal saline and that improved the blood pressure up to 128 systolic He denies any chest pain and/or shortness of breath or palpitation He has been ambulating without any difficulties and wants to go home Review of Systems Review of Systems: All systems reviewed and are unremarkable except as noted below Respiratory: + dyspnea on exertion; no cough Physical Exam Physical Exam: Sitting on a chair without any acute distress Constitutional: well developed, well nourished, + acute distress (Due to shortness of breath and cough) and + obese; not ill appearing Eyes: PERRL, conjunctivae normal, anicteric sclerae ENMT: external ear and nose normal, oropharynx normal Neck: trachea midline, no thyromegaly Respiratory: no respiratory distress Auscultation: + diminished lung sounds, + crackles (Bibasilar crackles more on the right than the left) and + wheezes (Bilateral wheezing-minimal and improved a lot) Cardiovascular: Rate/Rhythm: regular rate and regular rhythm Heart Sounds: no murmur Extremities: + edema (1+ edema bilaterally) Gastrointestinal (Abdomen): Inspection/Auscultation: + abdomen distended and normal bowel sounds Percussion/Palpation: abdomen soft; abdomen nontender Musculoskeletal: No acute arthritis in any joint Neurologic: Alert, awake and oriented x3. No focal sensory and motor deficit appreciated Psychiatric: A+Ox3, euthymic affect Lymphatic: no cervical or axillary lymphadenopathy Results & Data Results & Data ([facility] [place]) Vital Signs (Past 12 Hours) Vital Signs Temp Pulse Pulse Resp BP BP Pulse Ox 08/17/20 11:17 35.8 C L 95 H 18 115/78 98 08/17/20 09:29 77 128/77 08/17/20 08:27 36.3 C L 76 18 85/58 L 96/62 L 94 08/17/20 08:22 36.4 C L 110 H 18 120/77 95 08/17/20 07:32 67 16 96 08/17/20 07:00 108 H 08/17/20 02:38 36.5 C 96 H 18 129/72 96 08/16/20 23:59 104 H Laboratory Results Short CBC 08/17/20 Range/Units 05:32 WBC 7.73 (4.8-10.8) K/uL Hgb 9.5 L (14.0-18.0) g/dL Hct 29.0 L (42-52) % Plt Count 172 D (130-400) K/uL BMP 08/16/20 08/17/20 11:42 05:32 Sodium 139 Potassium 4.3 Chloride 106 Carbon Dioxide 28 BUN 60 H Creatinine 1.75 H Glucose 387 H* 42 L* Calcium 8.0 L Medications Administered Current Inpatient Medications Acetylcysteine (Acetylcysteine 10% Inhal Soln 4 Ml Dispensed By Resp.) 3 ml INH BIDR RASHEL Stop: 09/12/20 20:59 Last Admin: 08/17/20 07:32 Dose: 3 ml Documented by: Benzonatate (Benzonatate 100 Mg Capsule) 100 mg PO BID PRN PRN Reason: Cough Stop: 09/12/20 16:15 Last Admin: 08/16/20 15:31 Dose: 100 mg Documented by: Digoxin (Digoxin 0.125 Mg Tab) 0.125 mg PO MoWeFr@0900 [facility] Stop: 09/12/20 16:29 Last Admin: 08/16/20 08:43 Dose: 0.125 mg Documented by: Fluticasone Propionate (Fluticasone Propionate Na Spr 16 Gm Btl) 2 sprays NA DAILY PRN PRN Reason: Nasal Congestion Stop: 09/12/20 16:20 Piperacillin Sod/Tazobactam (Sod 3.375 gm/ Dextrose) 115 mls @ 28.75 mls/hr IV Q8H [facility]; Protocol Stop: 08/20/20 19:59 Last Infusion: 08/17/20 08:06 Dose: Infused Documented by: Doxycycline Hyclate 100 mg/ (Dextrose) 110 mls @ 50 mls/hr IV Q12 [facility] Stop: 08/20/20 17:59 Last Infusion: 08/17/20 10:49 Dose: Infused Documented by: Insulin Aspart (Insulin Aspart 100 Units/Ml 3 Ml Pen) 0 units SQ ACHS [facility] Stop: 09/12/20 20:59 Last Admin: 08/17/20 08:37 Dose: 5 units Documented by: Insulin Glargine (Insulin Glargine Solostar 100 Units/Ml 3 Ml Pen) 22 units SQ QAM [facility] Stop: 09/13/20 08:59 Last Admin: 08/17/20 08:38 Dose: 22 units Documented by: Levalbuterol HCl (Levalbuterol Hcl 1.25 Mg/3 Ml Neb) 1.25 mg INH Q4R PRN PRN Reason: Shortness Of Breath Or Wheezing Stop: 09/12/20 16:15 Last Admin: 08/17/20 07:32 Dose: 1.25 mg Documented by: Metoprolol Tartrate (Metoprolol Tartrate 50 Mg Tab) 50 mg PO PM [facility] Stop: 09/12/20 20:59 Last Admin: 08/16/20 21:06 Dose: 50 mg Documented by: Metoprolol Tartrate (Metoprolol Tartrate 25 Mg Tab) 25 mg PO QAM [facility] Stop: 09/13/20 08:59 Last Admin: 08/17/20 08:25 Dose: Not Given Documented by: Miscellaneous Information (Piperacill/Tazobac Consult Active) 1 ea N/A UD PRN PRN Reason: Consult Stop: 09/12/20 16:15 Nitroglycerin (Nitroglycerin Sl 0.4 Mg/Tab Tab) 0.4 mg SL UD PRN PRN Reason: Chest Pain Stop: 09/12/20 16:15 Simvastatin (Simvastatin 20 Mg Tab) 20 mg PO QPM RASHEL Stop: 09/12/20 20:59 Last Admin: 08/16/20 21:05 Dose: 20 mg Documented by: Tamsulosin HCl (Tamsulosin Hcl 0.4 Mg Cap) 0.4 mg PO HS [facility] Stop: 09/12/20 20:59 Last Admin: 08/16/20 21:06 Dose: 0.4 mg Documented by: Torsemide (Torsemide 20 Mg Tab) 20 mg PO DAILY [facility] Stop: 09/15/20 08:59 Last Admin: 08/17/20 08:31 Dose: Not Given Documented by: Triamcinolone Acetonide (Triamcinolone Acet 0.1% Cr 15 Gm Tube) 1 appln TOP BID [facility] Stop: 09/12/20 20:59 Last Admin: 08/17/20 08:22 Dose: 1 appln Documented by: Umeclidinium/Vilanterol (Umeclidinium/Vilanterol 62.5/25mcg 7 Puffs/Inhaler) 1 puffs INH DAILY [facility] Stop: 09/13/20 08:59 Last Admin: 08/17/20 08:22 Dose: 1 puffs Documented by: Warfarin Sodium (Warfarin Sod 1.25 Mg Tab) 1.25 mg PO SuTuWeThFrSa@1600 [facility] Stop: 09/12/20 16:29 Last Admin: 08/15/20 16:42 Dose: 1.25 mg Documented by: Warfarin Sodium (Warfarin Sod 2.5 Mg Tab) 2.5 mg PO Mo@1600 [facility] Stop: 09/15/20 15:59
--- NOTE | 2020-08-17 18:29 | Discharge Summary ---
Date of Service August 17, 2020 Admission HPI Per Admitting Provider He is an 80-year-old obese male with significant complicated past medical history including severe COPD, chronic kidney disease stage III, atrial fibrillation on Coumadin, bronchiectasis, chronic diastolic heart failure, interstitial lung disease and tracheobronchomalacia apparently has been complaining of increasing shortness of breath for the last 2 to 3 weeks and fever with productive cough for the last few days. He was evaluated by his forestry scientist about 3 to 4 weeks ago and at the time a few medications were changed as a fine tune for his overall condition. Since then his condition has been deteriorating with above symptoms and including edema of the legs and weakness. He denies any chest pain and/or palpitation, any abdominal pain nausea and or vomiting. He was noted to be tachycardic, tachypneic, hypoxic and increased temperature at presentation to the emergency room.) Chest x-ray did show possible pneumonia involving the right lower lung. He was a started with intravenous Zosyn and was advised admission. Admission Exam Per Admitting Provider Physical Exam: Lying in bed with moderate shortness of breath at rest Constitutional: well developed, well nourished, + acute distress (Due to shortness of breath and cough) and + obese; not ill appearing Eyes: PERRL, conjunctivae normal, anicteric sclerae ENMT: external ear and nose normal, oropharynx normal Neck: trachea midline, no thyromegaly Respiratory: + respiratory distress Auscultation: + diminished lung sounds, + crackles (Bibasilar crackles more on the right than the left) and + wheezes (Bilateral wheezing) Gastrointestinal (Abdomen): Inspection/Auscultation: + abdomen distended and normal bowel sounds Percussion/Palpation: abdomen soft; abdomen nontender Musculoskeletal: No acute arthritis in any joint Skin: Chronic bruising Neurologic: Alert, awake and oriented x3. Generally weak Psychiatric: A+Ox3, euthymic affect Lymphatic: no cervical or axillary lymphadenopathy Principal Diagnosis Acute exacerbation of COPD, possible pneumonia, bronchiectasis, acute on chronic renal failure, paroxysmal atrial fibrillation, chronic diastolic heart failure Discharge Exam Constitutional well developed, well nourished, + acute distress (Due to shortness of breath and cough) and + obese; not ill appearing Eyes PERRL, conjunctivae normal, anicteric sclerae ENMT external ear and nose normal, oropharynx normal Neck trachea midline, no thyromegaly Respiratory no respiratory distress Auscultation: + diminished lung sounds, + crackles (Bibasilar crackles more on the right than the left) and + wheezes (Bilateral wheezing-minimal and improved a lot) Cardiovascular Rate/Rhythm: regular rate and regular rhythm Heart Sounds: no murmur Extremities: + edema (1+ edema bilaterally) Gastrointestinal (Abdomen) Inspection/Auscultation: + abdomen distended and normal bowel sounds Percussion/Palpation: abdomen soft; abdomen nontender Psychiatric A+Ox3, euthymic affect Lymphatic no cervical or axillary lymphadenopathy Discharge Data Allergies Allergy/AdvReac Type Severity Reaction Status Date / Time diltiazem Allergy Mild rash Verified 08/13/20 15:40 fluticasone furoate AdvReac Intermediate Joint Pain Verified 08/13/20 15:40 [From Breo Ellipta] vilanterol AdvReac Intermediate Joint Pain Verified 08/13/20 15:40 [From Breo Ellipta] aspirin AdvReac Mild GI symptoms Verified 08/13/20 15:40 lisinopril AdvReac Mild cough Verified 08/13/20 15:40 propoxyphene AdvReac Mild GI upset, Verified 08/13/20 15:40 diarrhea Consultations 08/13/20 13:53 ED Decision to Admit Stat Hospital Course (1) Acute exacerbation of chronic obstructive pulmonary disease: Increasing shortness of breath for the last 2 weeks Will start nebulized bronchodilator [id number] and intravenous Solu-Medrol Oxygen therapy as needed If his condition does not improve we will need to get pulmonary involved Clinically much better today and does not have any acute shortness of breath at rest Shows further improvement Uses oxygen at home at nighttime ,he does not use any oxygen at home with ambulation We will decrease the dose of steroid and convert to oral prednisone on discharge tomorrow Has had low blood pressure yesterday and received 500 mL of normal saline bolus Respiratory status remains stable We will get a 2 steps O2 saturation before discharge tomorrow Remains stable at rest-awaiting PT and OT evaluation and to do steps O2 s aturation test Likely to be discharged this afternoon (2) Pneumonia: Has bibasilar infiltration more on the right side History of Pseudomonas pneumonia and bronchiectasis as below We will start intravenous Zosyn and doxycycline No more fever and/or chills and white count remains stable Has been improving with treatment Likely to give Levaquin on discharge as before Sepsis likely secondary to pneumonia Presented with tachycardia, tachypnea, increased temperature and also lactic acid more than 2 Cannot give measured amount of intravenous fluid due to complicated cardiac condition and edema Will give cautious amount of intravenous fluid and monitor PRP and repeat lactate Repeat lactate came out to be at 3.4 likely secondary to hypoxia Cannot give any more intravenous fluid due to history of CHF and leg edema (3) Bronchiectasis: As above (4) 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: Complicating overall COPD status (5) Acute worsening of stage 3 chronic kidney disease: Creatinine is elevated to 2.18 from a baseline of around around 2 Will hold Lasix for now and give cautious amount of intravenous fluid Creatinine is improved at 1.91 We will hold off any diuretics at this time Creatinine has been improving Creatinine has been at his baseline (6) Paroxysmal A-fib: Remains tachycardic likely secondary to increased temperature We will continue current medications Has been on Coumadin and INR is therapeutic Heart rate seems to be stable (7) Chronic diastolic heart failure: History of chronic diastolic heart failure Doubt any acute exacerbation now We will hold Lasix for now because of ongoing sepsis We will continue with smaller doses of fluid medications, Lasix were torsemide on discharge He was advised to weigh himself about 2-3 times a week and if the weight gain is more than 3 to 5 pounds then he can use torsemide for a day or 2 to improve the weight (8) Diabetes type I: Continue current insulin as advised Blood sugar remains on the higher side and is likely contributed by steroid DVT prophylaxis Has been on Coumadin INR noted to be high at more than 10 Will give 2.5 mg of oral vitamin K and hold Coumadin INR is 1. 9 today-has an appointment with the coagulation clinic as an outpatient CODE STATUS Full Total Time Total Time Spent Total Time Spent (In Minutes): 40 minutes Total Time Includes: Examination of the Patient, Discharge Planning, Medication Reconciliation and Communication With Other Providers Discharge Plan Discharge Items Patient Disposition: Home - Self-Care Reason For Visit: PNEUMONIA, COPD EXACER Discharge Diagnosis: Acute exacerbation of COPD, possible pneumonia, bronchiectasis, acute on chronic renal failure, paroxysmal atrial fibrillation, chronic diastolic heart failure Condition on Discharge: Good Activity: Resume your previous activity Non-emergency contact: Primary Care Provider Call non-emergency contact if: you have any medication questions and your symptoms worsen Follow-up/Referrals: Kg Monte MD [Primary Care Provider] - (Date & Time 08/20/2020 9:00 AM Provider Laurie Berry MD [facility] ) Diet: Carb Consistent or DM2, Heart Healthy and Low Sodium (2gm) Fluids: 1800ml (7 cups) Addtl Attending Provider Instructions: Please take precaution to avoid falls Weigh yourself regularly and if your weight is more than 3 to 5 pounds in 1 week take torsemide for a day or 2 Please keep appointments with your forestry scientist and primary care physician Pending Studies at Discharge: No Stand-Alone Forms: My [employer], Smoking Cessation Medications and DC Order Prescriptions: New prednisone 10 mg tablet 10 mg PO UD Qty: 50 RF: 0 levofloxacin 500 mg tablet 500 mg PO Q48H 10 Days Qty: 5 RF: 0 Continued Combivent Respimat 20-100 mcg/actuation mist 1 puff inhalation Q6H Qty: 3 RF: 1 acetylcysteine 100 mg/mL (10 %) solution 3 ml inhalation BID Qty: 180 RF: 1 warfarin 2.5 mg tablet 2.5 mg PO MO RF: 0 metoprolol tartrate 50 mg tablet 50 mg PO PM RF: 0 benzonatate [Tessalon Perles] 100 mg Capsule 100 mg PO BID PRN (Reason: Cough) RF: 0 digoxin 125 mcg (0.125 mg) tablet 125 mcg PO .MWF RF: 0 triamcinolone acetonide 0.1 % cream 1 applic TOPICAL BID RF: 0 levalbuterol HCl 1.25 mg/3 mL solution for nebulization 1.25 mg INHALATION Q4H PRN (Reason: Shortnes of breath) RF: 0 warfarin 2.5 mg tablet 1.25 mg PO SUTUWETHFRSA RF: 0 metoprolol tartrate 50 mg Tablet 25 mg PO QAM RF: 0 tamsulosin [Flomax] 0.4 mg Capsule 0.4 mg PO HS RF: 0 simvastatin [Zocor] 20 mg Tablet 20 mg PO QPM RF: 0 nitroglycerin [Nitrostat] 0.4 mg Tablet, Sublingual 0.4 mg Sublingual UD PRN (Reason: Chest Pain) RF: 0 insulin aspart U-100 [Novolog Flexpen U-100 Insulin] 100 unit/mL Insulin Pen 4 - 6 unit subcut TID RF: 0 Flonase Sensimist 27.5 mcg/actuation [place],Suspension 2 spray Intranasal DAILY PRN (Reason: Nasal Congestion) RF: 0 Lantus Solostar U-100 Insulin 100 unit/mL (3 mL) Insulin Pen 20 - 22 unit SUBCUT QAM RF: 0 Anoro Ellipta 62.5-25 mcg/actuation blister with device 1 inh inhalation QAM RF: 0 Changed torsemide 20 mg tablet 20 mg PO UD Qty: 0 RF: 0 Discontinued sodium chloride 7 % solution for nebulization 4 ml inhalation BID Qty: 240 RF: 0 Discharge Orders: Discharge Order (Routine); Ordered 08/17/20 Ordered By: Vincent Kenyon Admission Data Admit Date/Time: 08/13/20 14:22 Attending Provider: Vincent Kenyon Admit Provider: Vincent Kenyon Primary Care Provider: Kg Monte Other Providers: Vincent Kenyon Other Interventions: Discharge Summary Assessment (RN) Last Done: 08/17/20 15:21
== END 2020-08-17 16:00 | disposition home or self-care (01) | DRG 871 ==
LOC: ED 12:04 → 2N 14:22

== ENCOUNTER 2020-09-09 08:21 | Inpatient (IN) ==
[2020-09-09 09:18] LABS: Basophils # (auto) 0.01 K/uL (0-0.2); Basophils % (auto) 0.1 %; Eosinophils # (auto) 0.04 K/uL (0-0.5); Eosinophils % (auto) 0.4 %; Hemoglobin 9.9 g/dL (14.0-18.0); Immature Granulocytes # (auto) 0.07 K/uL (0.00-0.02); Immature Granulocytes % (auto) 0.7 %; Lymphocytes # (auto) 1.18 K/uL (1.2-3.4); Lymphocytes % (auto) 11.9 %; Mean Corpuscular Hemoglobin 26.4 pg (25-34); Mean Platelet Volume 9.9 fL (7.4-10.4); Monocytes % (auto) 7.1 %; Neutrophils # (auto) 7.91 K/uL (1.4-6.5); Neutrophils % (auto) 79.8 %; Platelet Count 240 K/uL (130-400); RDW Coefficient of Variation 17.8 % (11.5-14.5); RDW Standard Deviation 57.5 fL (36.4-46.3); Red Blood Count 3.75 M/uL (4.7-6.1); White Blood Count 9.91 K/uL (4.8-10.8)
[2020-09-09] MEDS: METOPROLOL TARTRATE 1 MG/ML VIAL IV PRN ×3 (09:30→10:29)
[2020-09-09 09:40] LABS: Alanine Aminotransferase 74 U/L (12-78); Albumin Level 2.4 gm/dl (3.4-5.0); Aspartate Aminotransferase 22 U/L (15-37); BUN Creatinine Ratio 26.2 (10-20); Blood Urea Nitrogen 39 mg/dl (7-18); Calcium 8.8 mg/dl (8.5-10.1); Carbon Dioxide 31 mmol/L (21-32); Chloride 102 mmol/L (98-107); Est GFR (African American) 49.5 ml/min; Est GFR (Non-African American) 42.7 ml/min; Glucose 360 mg/dl (70-99); Potassium 4.7 mmol/L (3.5-5.1); Sodium 139 mmol/L (136-145)
[2020-09-09] MEDS ORDERED: NovoLIN-R INSULIN PER UNIT CHARGE SC STA (09:45)
[2020-09-09 09:46] LABS: Albumin Globulin Ratio 0.7 (0.9-2); Alkaline Phosphatase 153 U/L (45-117); Bilirubin,Total 0.9 mg/dl (0.2-1); Globulin 3.4 gm/dl (2.5-4.0); Total Protein 5.8 gm/dl (6.4-8.2)
[2020-09-09 09:49] LABS: Prothrombin Time 64.5 Seconds (9.0-12.0)
[2020-09-09 10:08] LABS: INR 7.5 (0.9-1.1)
[2020-09-09 10:09] LABS: Partial Thromboplastin Time 51.8 Seconds (21.0-31.0)
--- NOTE | 2020-09-09 10:09 | XRay Report ---
XR chest 1V portable HISTORY: 80 years-old Male Dyspnea acute shortness of breath COMPARISON: Chest radiograph 09/03/2020 TECHNIQUE: AP view of the chest FINDINGS: Cardiac silhouette is enlarged. Left subclavian pacer. Calcific plaque of the thoracic aorta. No pneu mothorax. Small pleural effusions with persistent bibasilar consolidation. Mildly decreased pulmonary vascular congestion. Degenerative changes of the shoulders and spine. IMPRESSION: 1. Cardiomegaly with decreased pulmonary vascular congestion. 2. Small pleural effusions with persistent right greater than left bibasilar opacities suggestive of atelectasis or pneumonia. ACT 112: Negative or not required by law. The above report was generated using voice recognition software. It may contain grammatical, syntax o r spelling errors. Electronically signed by: Ken Magaña M.D. 09/09/2020 10:08 AM
[2020-09-09] MEDS ORDERED: ALBUT/IPRATROP 3MG/0.5MG NEB 3 ML VIAL NEB STA (11:23)
[2020-09-09] MEDS ORDERED: CEFEPIME 2,000 MG/20 ML VIAL IV STA (11:23)
[2020-09-09 12:47] LABS: Allen Test Pos (Pos); Base Excess ABG 5.2 mEq/L (-9-1.8); HCO3 ABG 30 mmol/L (19-24); PCO2 ABG 48 mmHg (35-46); PO2 ABG 90 mmHg (80-95); pH ABG 7.42 (7.35-7.45)
[2020-09-09 12:53] LABS: Appearance Urine Clear (Clear); Bilirubin Urine Negative (Negative); Blood Urine Negative (Negative); Color Urine Yellow; Glucose Urine UA 3+ (Negative); Ketones Urine Negative (Negative); Leukocyte Esterase Urine Negative (Negative); Nitrite Urine Negative (Negative); Protein Urine Negative (Negative); Specific Gravity Urine 1.024 (1.000-1.030); Urobilinogen Urine Negative (Negative); pH Urine 5.5 (4.5-7.5)
[2020-09-09] MEDS ORDERED: PHARMACY GLYCEMIC MGMT CONSULT STA (12:58)
[2020-09-09] MEDS ORDERED: ACETAMINOPHEN 325 MG TAB PO PRN (13:52)
[2020-09-09] MEDS ORDERED: ONDANSETRON INJ 2 MG/ML 2 ML VIAL IV PRN (13:52)
[2020-09-09] MEDS ORDERED: POLYETHYLENE (MIRALAX) 17 GM PACK PO PRN (13:52)
[2020-09-09] MEDS ORDERED: NITROGLYCERIN SL 0.4 MG/TAB TAB SL PRN (13:52)
[2020-09-09] MEDS ORDERED: CEFEPIME CONSULT ACTIVE PRN (13:52)
[2020-09-09] MEDS ORDERED: FUROSEMIDE 40 MG/4 ML VIAL IV SCH (13:52)
[2020-09-09] MEDS ORDERED: METOPROLOL TARTRATE 1 MG/ML VIAL IV PRN (13:52)
[2020-09-09] MEDS ORDERED: INSULIN ASPART 100 UNITS/ML 3 ML PEN SQ SCH (14:00)
[2020-09-09] MEDS ORDERED: PHARMACY GLYCEMIC MGMT CONSULT PRN (14:12)
[2020-09-09] MEDS ORDERED: DEXTROSE 50% 50 ML SYRINGE IV PRN (14:15)
[2020-09-09] MEDS ORDERED: GLUCOSE 40% GEL 15 GM TUBE PO PRN (14:15)
[2020-09-09] MEDS ORDERED: CARBOHYDRATES FOR HYPOGLYCEMIA PO PRN (14:15)
[2020-09-09] MEDS ORDERED: GLUCOSE 10 TABS/TUBE PO PRN (14:15)
[2020-09-09] MEDS ORDERED: GLUCAGON FOR INJ 1 MG VIAL IM PRN (14:15)
--- NOTE | 2020-09-09 14:28 | History & Physical Report ---
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: (3) Interstitial lung disease: (4) COPD (chronic obstructive pulmonary disease): (5) Asbestos exposure: (6) Acute on chronic diastolic heart failure: (7) Atrial fibrillation with rapid ventricular response: (8) Supratherapeutic INR: (9) Diabetes type I: (10) HTN (hypertension): (11) Tachycardia-bradycardia syndrome: (12) CKD (chronic kidney disease) stage 3, GFR 30-59 ml/min: This is an 80yo M with a PMH of tachybrady syndrome status post pacemaker, chronic Atrial fibrillation anticoagulated on Coumadin, COPD with interstitial lung disease & asbestos exposure with tracheobronchomalacia with chronic respiratory failure on 2 to 3 L oxygen, T1DM, diastolic CHF, HTN, HLD, CKD stage III baseline creatinine 1.7 who presents to ED secondary to progressive difficulty breathing overnight. Acute on chronic hypoxic and hypercapnic respiratory failure Interstitial lung disease History of asbestos exposure COPD with remote tobacco use 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 Johansen in the office yesterday, and oxygen requirement was uptitrated as above. Instructed to continue 10mg prednisone daily and utilize all airway clearance maneuvers and inhalers Per Dr. Johansen, prognosis is poor In ER today, patient initially hypoxic in 80s on 4 L NC but improved to 100 on bipap ABG pH 7.41, pO2 90, pCO2 48, HCO3 30 Procalcitonin 0.76, lactic acid WNL Upon arrival to PCU, patient with acutely decompensated respiratory status, becoming tachypneic and hypoxic at 67 % despite bipap adjustments to 12/5 per resp Received albuterol treatment, Lasix 60mg IV x 1, empiric cefepime Still alert and able to communicate. Will transfer to ICU for respiratory mgmt per Dr. Henderson Updated on phone who confirmed husbands wish expressed during initial interview in ER to remain a FULL CODE. Interested in further discussion with palliative service, who is consulted Acute on chronic diastolic heart failure Appears clinically volume overloaded Given 60mg IV Lasix Monitor volume status closely, strict I&Os, daily weights Atrial fibrillation with RVR HR currently 129 Home medications include digoxin, Lopressor IV Lopressor 5mg IV for HR > 110 halfway anticoagulation with Coumadin but INR currently 7.5 so HOLDING Supratherapeutic INR INR 7.5 - no evidence of acute bleeding. Hgb at baseline ~ 9.9 Hold Coumadin, trend daily INR Type 1 diabetes Initial BSG 360, beta hydroxybutyric acid 4.4, no ketones in urine Given 10 units insulin regular in ED Glycemic management consulted, planning on initiating IV insulin drip Hypertension BP 102/59 Continue Lopressor with hold parameters Tachybradycardia syndrome Status post pacemaker placement CKD III Kidney function at baseline DVT Ppx: Coumadin held while supratherapeutic Code status: FULL CODE per lengthy discussion with patient and later over phone PCP: Mell Dispo: Admitted to ICU. Discharge planning ordered. Patient seen in collaboration with Dr. Cage. Please see addendum. Admission and Anticipated Discharge Date Admission Date: September 09, 2020 History of Present Illness Chief Complaint: shortness of breath Primary Care Provider: Kg Monte MD This is an 80yo M with a PMH of tachybrady syndrome status post pacemaker, chronic Atrial fibrillation anticoagulated on Coumadin, COPD with interstitial lung disease & asbestos exposure with tracheobronchomalacia with chronic respiratory failure on 2 to 3 L oxygen, T1DM, diastolic CHF, HTN, HLD, CKD stage III baseline creatinine 1.7 who presents to ED secondary to progressive difficulty breathing overnight. Patient medically complex and most recently admitted to our service in July for Pseudomonas pneumonia. Was treated with Zosyn and doxycycline and discharged on August 17, 2020. Since then, continues to follow closely with Dr. Johansen of pulmonology. Recently started on trilogy AVAPS machine HS with 3L O2. Also instructed to use 2L O2 during the day. States he is taking all medications as prescribed but felt profoundly more short of breath overnight yesterday. Sleeps sitting upright due to chronic orthopnea. Continues to have wet sounding cough with difficulty expectorating sputum. Feels fatigued all of the time and emotionally worn out from requiring multiple hospitalizations lately and not feeling much better. Did allude to conversation with Dr. Johansen yesterday in which poor prognosis was discussed. Is willing to discuss goals of care with palliative medicine but would like to remain a full code. Denies any fever, chills, lightheadedness, chest pain or palpitations. Unable to obtain remainder of ROS due to patient's respiratory distress while on Bipap. Allergies Allergy/AdvReac Type Severity Reaction Status Date / Time diltiazem Allergy Mild rash Verified 09/09/20 10:09 fluticasone furoate AdvReac Intermediate Joint Pain Verified 09/09/20 10:09 [From Breo Ellipta] vilanterol AdvReac Intermediate Joint Pain Verified 09/09/20 10:09 [From Breo Ellipta] aspirin AdvReac Mild GI symptoms Verified 09/09/20 10:09 lisinopril AdvReac Mild cough Verified 09/09/20 10:09 propoxyphene AdvReac Mild GI upset, Verified 09/09/20 10:09 diarrhea Home Medications Medication Instructions Recorded Confirmed Type Flonase Sensimist 2 spray INTRANASAL DAILY PRN 07/03/18 09/09/20 History Lantus Solostar U-100 Insulin 20 - 22 unit SUBCUT QAM 07/03/18 09/09/20 History insulin aspart U-100 [Novolog 4 - 6 unit SUBCUT TID 07/03/18 09/09/20 History Flexpen U-100 Insulin] nitroglycerin [Nitrostat] 0.4 mg SUBLINGUAL UD PRN 07/03/18 09/09/20 History simvastatin [Zocor] 20 mg PO QPM 07/03/18 09/09/20 History tamsulosin [Flomax] 0.4 mg PO HS 07/03/18 09/09/20 History warfarin 2.5 mg tablet 2.5 mg PO MO 01/10/19 09/09/20 History levalbuterol HCl 1.25 mg INHALATION Q4H PRN 04/20/20 09/09/20 History metoprolol tartrate 50 mg PO BID 04/20/20 09/09/20 History warfarin 1.25 mg PO SUTUWETHFRSA 04/20/20 09/09/20 History digoxin 125 mcg (0.125 mg) tablet 125 mcg PO 3XWK tab 07/12/20 09/09/20 History acetylcysteine 100 mg/mL (10 %) 3 ml INHALATION BID #180 ml 07/22/20 09/09/20 Rx solution Anoro Ellipta 1 inh INHALATION QAM 08/13/20 09/09/20 History triamcinolone acetonide 0.1 % 1 applic TOPICAL BID #15 g 08/24/20 09/09/20 Rx topical cream ipratropium 20 mcg-albuterol 100 1 puff INHALATION Q6H #3 inhaler 08/31/20 09/09/20 Rx mcg/actuation mist for inhalation hydroxyzine HCl 10 mg PO Q8H PRN 09/09/20 09/09/20 History ipratropium bromide 2.5 ml INHALATION QID PRN 09/09/20 09/09/20 History prednisone 10 mg PO QAM 09/09/20 09/09/20 History torsemide 10 mg PO QAM 09/09/20 09/09/20 History 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)/last check 06/09/19 Pulmonary embolism remote hx Skin cancer left elbow region Surgical History H/O basal cell carcinoma excision REMOVED FROM NOSE H/O hand surgery LEFT MIDDLE FINGER FX REPAIR H/O inguinal hernia repair H/O nasal polypectomy History of bronchoscopy History of cataract surgery RT/LEFT History of colonoscopy History of inguinal hernia repair History of lung biopsy robotic thoracoscopy, pleural biopsy: 08/09/16: Grade view 1, MAC#3 at [facility] History of surgery of head "correct skull abnormality- left temporoparietal ; 1992" History of tooth extraction Status post placement of cardiac pacemaker Family History Brother Diabetes Son Diabetes Family hx of colon cancer Other Heart disease Social History Smoking Status: Former smoker Second Hand Exposure: No; Do You Dip or Chew Tobacco: No; Tobacco Cessation Education Requested by Patient: No Hx Alcohol Use: Yes Alcohol type: beer Hx Substance Use: No Preferred Language: Salvadorean Communication Ability: Effective Visual Impairment: No Limitations Faceter Required: No Beliefs That Will Affect Care: Scientology Scientology Beliefs: Christianity marital status: Current Living Situation: Spouse Current Living Situation Comment: at home Feels Safe at Home: Yes Safety Concerns: Feels Safe At This Time Assistive Devices: Cane Review of Systems Review of Systems: Limited 2/2 bipap mask. See HPI pertinent positives and negatives that were able to be obtained. Physical Exam Physical Exam: General Appearance: WD/WN, vitals as above, NAD, sitting up in bedside chair, mild respiratory distress wearing BiPAP mask Head: normocephalic, atraumatic Eyes: normal inspection, PERRL, conjunctivae normal, anicteric sclerae ENT: external ear and nose normal, oropharynx normal Neck: normal visual inspection, trachea midline, no thyromegaly Respiratory: Increased respiratory effort, rhonchi throughout lung raymond with prolonged expiratory phase No wheeze, rales. Wearing BiPAP mask with some accessory muscle use noted Cardiovascular: Tachycardic rate, irregular rhythm, no murmur appreciated, normal peripheral pulses, 3+o BLE edema. Vessels: difficulty to assess 2/2 bipap mask Chest: normal inspection of chest Abdomen/GI: normal bowel sounds, soft, nontender, no hepatosplenomegaly Extremities/Musculoskeletal: no cyanosis or clubbing, extremities motor strength 5/5 Neurologic: PERRL, EOMI, accommodation nl, no face palsy, no dysarthria, CN's II-XI intact bilaterally and moves all extremities Psychiatric: A+Ox3, euthymic affect Skin: no rashes, normal color, warm/dry Results & Data Results & Data ([facility]) Vital Signs (Past 12 Hours) Vital Signs Temp Pulse Pulse Pulse Resp BP BP 09/09/20 13:54 36.7 C 111 H 24 122/79 09/09/20 13:46 110 H 21 09/09/20 13:00 112 H 21 111/90 09/09/20 12:31 101 H 17 118/99 09/09/20 12:30 72 10 L 128/80 09/09/20 12:00 71 17 126/86 09/09/20 11:42 96 H 20 09/09/20 11:36 102 H 20 09/09/20 11:31 115 H 25 H 131/99 09/09/20 11:30 67 16 135/86 09/09/20 11:25 65 16 137/70 09/09/20 11:16 109 H 24 09/09/20 11:01 115 H 20 124/82 09/09/20 10:29 110 H 112/78 09/09/20 10:28 96 H 20 126/96 09/09/20 10:08 108 H 24 119/74 09/09/20 09:58 116 H 20 135/96 09/09/20 09:30 110 H 128/81 09/09/20 09:28 110 H 129/92 09/09/20 08:23 36.9 C 121 H 24 113/82 Pulse Ox 09/09/20 13:54 100 09/09/20 13:46 93 09/09/20 13:00 96 09/09/20 12:31 97 09/09/20 12:30 98 09/09/20 12:00 95 09/09/20 11:42 96 09/09/20 11:36 96 09/09/20 11:31 09/09/20 11:30 96 09/09/20 11:25 97 09/09/20 11:16 81 L 09/09/20 11:01 99 09/09/20 10:29 09/09/20 10:28 97 09/09/20 10:08 97 09/09/20 09:58 98 09/09/20 09:30 09/09/20 09:28 09/09/20 08:23 88 L Laboratory Results Short CBC 09/09/20 Range/Units 08:46 WBC 9.91 (4.8-10.8) K/uL Hgb 9.9 L (14.0-18.0) g/dL Hct 33.0 L (42-52) % Plt Count 240 (130-400) K/uL BMP 09/09/20 08:46 Sodium 139 Potassium 4.7 Chloride 102 Carbon Dioxide 31 BUN 39 H Creatinine 1.50 H Glucose 360 H* Calcium 8.8 Liver Function 09/09/20 Range/Units 08:46 Total Bilirubin 0.9 (0.2-1) mg/dl AST 22 (15-37) U/L ALT 74 (12-78) U/L Alkaline Phosphatase 153 H (45-117) U/L Albumin 2.4 L (3.4-5.0) gm/dl Urine 09/09/20 Range/Units 12:40 Urine Color Yellow Urine Appearance Clear (Clear) Urine pH 5.5 (4.5-7.5) Ur Specific Gilbert 1.024 (1.000-1.030) Urine Protein Negative (Negative) Urine Glucose (UA) 3+ H (Negative) Diagnostic Findings Chest X-Ray 09/09/20 08:46 XR chest 1V portable HISTORY: 80 years-old Male Dyspnea acute shortness of breath COMPARISON: Chest radiograph 09/03/2020 TECHNIQUE: AP view of the chest FINDINGS: Cardiac silhouette is enlarged. Left subclavian pacer. Calcific plaque of the thoracic aorta. No pneumothorax. Small pleural effusions with persistent bibasilar consolidation. Mildly decreased pulmonary vascular congestion. Degenerative changes of the shoulders and spine. IMPRESSION: 1. Cardiomegaly with decreased pulmonary vascular congestion. 2. Small pleural effusions with persistent right greater than left bibasilar opacities suggestive of atelectasis or pneumonia. ACT 112: Negative or not required by law. The above report was generated using voice recognition software. It may contain grammatical, syntax or spelling errors. Electronically signed by: Ken Magaña M.D. 09/09/2020 10:08 AM Code Status & VTE Plan VTE Prophylaxis Plan VTE Prophylaxis will be ordered: Yes Supervising Physician Co-Signing Physician Notes Patient is an 80-year-old male with history of COPD, interstitial lung disease, asbestos exposures, tracheobronchomalacia, chronic oxygen dependency, diastolic heart failure, atrial fibrillation on Coumadin and other medical problems presents with history of worsening shortness of breath, chronic cough and significant generalized weakness. He denies any chest pain, dizziness, nausea, abdominal pain. He follows with Dr. Johansen who was recently started on trilogy and was advised to use supplemental oxygen during the daytime as well. Patient unable to provide detailed history given to respiratory distress while on BiPAP in ED. Please review HPI for complete details of presentation. He prefers to continue to be full code. Chest x-ray showed cardiomegaly with decreased pulmonary vascular congestion, small bilateral effusions with persistent right greater than left bibasilar opacities suggestive of atelectasis or pneumonia. His Covid screen is negative. Was found to have supratherapeutic INR with INR elevated at 7.5 but denies any bleeding issues. Renal function is at baseline. Procalcitonin elevated 0.76, normal lactic acid. Hyperglycemic in 300s noted while in ED. on exam patient is chronically appearing, mild respiratory distress, moderately built, nourished, normocephalic atraumatic, lungs-decreased breath sounds, prolonged expiratory phase, bilateral rhonchi, scattered crackles, irregularly irregular, no murmur, tachycardia, significant bilateral lower extremity edema, abdomen soft, nontender, normal bowel sounds, alert, awake, oriented, grossly no focal deficits. Patient is admitted for management of acute on chronic hypoxic, hypercapnic respiratory failure, possible healthcare associated pneumonia, underlying interstitial lung disease, COPD, mild CHF exacerbation. We will start him on broad-spectrum antibiotics, glucocorticoids, DuoNebs, consult pulmonology and will diurese him with IV Lasix. Will update echo. Will hold warfarin monitor INR. Repeat VBG in the morning. Will resume his metoprolol, digoxin and add IV Lopressor to control his A. fib RVR. Patient deteriorated on PCU floor, despite increasing FiO2 to 100%, oxygen saturations dropped to 60s. Patient was transferred to ICU for further management. family updated. I personally reviewed the record. Patient is interviewed and examined at bedside. Patient's care is coordinated with Sahra Chavez PA-C. Please refer to the documentation above for details of patient's presentation and for discussion of other issues. (1) COPD (chronic obstructive pulmonary disease) COPD type: unspecified COPD Qualified Code(s): J44.9 - Chronic obstructive pulmonary disease, unspecified
[2020-09-09] MEDS ORDERED: PATIENT'S HEIGHT AND/OR WEIGHT NEEDED SCH (14:30)
[2020-09-09] MEDS: FUROSEMIDE 60 MG in SYRINGE 0 ML IV SCH ×2 (14:39→21:23)
[2020-09-09] MEDS ORDERED: INSULIN ASPART 100 UNITS/ML 3 ML PEN SC SCH ×2 (15:00→16:30)
[2020-09-09] MEDS ORDERED: ALBUT/IPRATROP 3MG/0.5MG NEB 3 ML VIAL NEB SCH (15:00)
--- NOTE | 2020-09-09 15:10 | Pharmacy Report ---
Pharmacy Glycemic Short Note 2 - Date of Service September 09, 2020 - Glycemic Short BSG Results (Last 24 hours): 09/09/20 09/09/20 09/09/20 08:46 11:49 11:51 Glucose 360 H* POC Glucose 347 H* 337 H* OUTPATIENT ANTIDIABETIC REGIMEN: * Lantus 20-22 units Qam, Novolog 4-6 units TID ASSESSMENT: * 80 year old admitted with possible pneumonia. Started on steroids. Pharmacy consulted to help with glycemic management. Patient is a type 1 DM. * Received solm 40 iv in ER, BSGs in 300s - plan to start novolog now, verifying with RN if patient took home basal insulin. * May give IV bolus if recheck elevated. Patient NPO status currently. Will do Q4 hr checks to help better control BSGs PLAN FOR INPATIENT GLYCEMIC CONTROL: * Hold outpatient oral diabetes medications * Basal insulin * Lantus - 22 x 1 now (will verify if pt took dose this AM or not) * Bolus insulin * NovoLog per scale ACHS or Q6hrs while NPO * Goal Range: Low 110 mg/dL - High 140 mg/dL * Correction Factor: 20 mg/dL/unit * Nutritional / Prandial insulin per carb ratio of 1 unit per 7 grams CHO consumed PLAN FOR DISCHARGE: * tbd
--- NOTE | 2020-09-09 15:23 | Emergency Department Note ---
History of Present Illness General Chief complaint: Shortness of Breath/Dyspnea Stated complaint: SOB/CONGESTED Time Seen by Provider: 09/09/20 08:45 Source: patient, family ( at the bedside) and RN notes reviewed Mode of arrival: ambulatory Limitations: no limitations History of Present Illness Provider complaint: Shortness of breath This patient is an 80-year-old male who presents emergency department with c omplaints of increased shortness of breath, weakness and a moist cough. Patient does have a history of COPD and heart failure. He was started on home oxygen [id number] and does wear CPAP at night. Patient states he was seen by his driver helper Dr. Johansen yesterday. He was not able to take his medications today. Patient denies any fevers, chills or chest pain. He denies any nausea or vomiting. He acknowledges some worsening lower extremity edema although states it is a pretty chronic issue. He states "I just do not have any fight left." His states that they had a terrible night last night and the patient was up all night coughing. Patient is noted to be in rapid atrial f lutter on arrival. Home Medications Medication Instructions Recorded Confirmed Type Flonase Sensimist 2 spray INTRANASAL DAILY PRN 07/03/18 09/09/20 History Lantus Solostar U-100 Insulin 20 - 22 unit SUBCUT QAM 07/03/18 09/09/20 History insulin aspart U-100 [Novolog 4 - 6 unit SUBCUT TID 07/03/18 09/09/20 History Flexpen U-100 Insulin] nitroglycerin [Nitrostat] 0.4 mg SUBLINGUAL UD PRN 07/03/18 09/09/20 History simvastatin [Zocor] 20 mg PO QPM 07/03/18 09/09/20 History tamsulosin [Flomax] 0.4 mg PO HS 07/03/18 09/09/20 History warfarin 2.5 mg tablet 2.5 mg PO MO 01/10/19 09/09/20 History levalbuterol HCl 1.25 mg INHALATION Q4H PRN 04/20/20 09/09/20 History metoprolol tartrate 50 mg PO BID 04/20/20 09/09/20 History warfarin 1.25 mg PO SUTUWETHFRSA 04/20/20 09/09/20 History digoxin 125 mcg (0.125 mg) tablet 125 mcg PO 3XWK tab 07/12/20 09/09/20 History acetylcysteine 100 mg/mL (10 %) 3 ml INHALATION BID #180 ml 07/22/20 09/09/20 Rx solution Anoro Ellipta 1 inh INHALATION QAM 08/13/20 09/09/20 History triamcinolone acetonide 0.1 % 1 applic TOPICAL BID #15 g 08/24/20 09/09/20 Rx topical cream ipratropium 20 mcg-albuterol 100 1 puff INHALATION Q6H #3 inhaler 08/31/20 0 09/09/20 Rx mcg/actuation mist for inhalation hydroxyzine HCl 10 mg PO Q8H PRN 09/09/20 09/09/20 History ipratropium bromide 2.5 ml INHALATION QID PRN 09/09/20 09/09/20 History prednisone 10 mg PO QAM 09/09/20 09/09/20 History torsemide 10 mg PO QAM 09/09/20 09/09/20 History Allergies Allergy/AdvReac Type Severity Reaction Status Date / Time diltiazem Allergy Mild rash Verified 09/09/20 10:09 fluticasone furoate AdvReac Intermediate Joint Pain Verified 09/09/20 10:09 [From Breo Ellipta] vilanterol AdvReac Intermediate Joint Pain Verified 09/09/20 10:09 [From Breo Ellipta] aspirin AdvReac Mild GI symptoms Verified 09/09/20 10:09 lisinopril AdvReac Mild cough Verified 09/09/20 10:09 propoxyphene AdvReac Mild GI upset, Verified 09/09/20 10:09 diarrhea 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)/last check 06/09/19 Pulmonary embolism remote hx Skin cancer left elbow region Surgical History H/O basal cell carcinoma excision REMOVED FROM NOSE H/O hand surgery LEFT MIDDLE FINGER FX REPAIR H/O inguinal hernia repair H/O nasal polypectomy History of bronchoscopy History of cataract surgery RT/LEFT History of colonoscopy History of inguinal hernia repair History of lung biopsy robotic thoracoscopy, pleural biopsy: 08/09/16: Grade view 1, MAC#3 at [facility] History of surgery of head "correct skull abnormality- left temporoparietal ; 1992" History of tooth extraction Status post placement of cardiac pacemaker Family History Brother Diabetes Son Diabetes Family hx of colon cancer Other Heart disease Social History Smoking Status: Former smoker Second Hand Exposure: No; Do You Dip or Chew Tobacco: No; Tobacco Cessation Education Requested by Patient: No Hx Alcohol Use: Yes Alcohol type: beer Hx Substance Use: No Preferred Language: Icelandic Communication Ability: Effective Visual Impairment: No Limitations [employer] Required: No Beliefs That Will Affect Care: Denominational Denominational Beliefs: Lutheran marital status: Current Living Situation: Spouse Current Living Situation Comment: at home Feels Safe at Home: Yes Safety Concerns: Feels Safe At This Time Assistive Devices: Cane Review of Systems See HPI for pertinent positives & negatives. and A total of 10 systems reviewed and were otherwise negative Physical Exam Vital Signs Vital Signs - 24 hr 09/09/20 08:23 09/09/20 08:36 09/09/20 08:53 Temperature 36.9 C Temperature Source Temporal Artery Scan Pulse Rate 121 H Pulse Rate [Left Finger] Pulse Rate [Right Finger] Pulse Rate from SpO2 Sensor Pulse Rhythm Regular Pulse Rhythm [Left Finger] Pulse Rhythm [Right Finger] Pulse Strength Normal Respiratory Rate 24 Respiratory Effort / Characteristics Non-Labored Spontaneous SOB on Exertion Respiratory Depth Normal Respiratory Pattern Blood Pressure 113/82 Blood Pressure [Left Arm] Blood Pressure Mean 92 Blood Pressure Mean [Left Arm] Blood Pressure Position Sitting Pulse Oximetry 88 L Oxygen Delivery Method Room Air Room Air Nasal Cannula Oxygen Flow Rate 2 Fraction of Inspired Oxygen Sepsis Recent Fever Within 48 Hours No Sepsis New/Unexplained Change in Mental Status N/A Sepsis Action Taken by Nursing No Action Required 09/09/20 09:28 09/09/20 09:30 09/09/20 09:58 Temperature Temperature Source Pulse Rate 110 H Pulse Rate [Left Finger] 110 H 116 H Pulse Rate [Right Finger] Pulse Rate from SpO2 Sensor Pulse Rhythm Pulse Rhythm [Left Finger] Pulse Rhythm [Right Finger] Pulse Strength Respiratory Rate 20 Respiratory Effort / Characteristics Respiratory Depth Respiratory Pattern Blood Pressure 128/81 Blood Pressure [Left Arm] 129/92 135/96 Blood Pressure Mean Blood Pressure Mean [Left Arm] 104 109 Blood Pressure Position Pulse Oximetry 98 Oxygen Delivery Method Nasal Cannula Nasal Cannula Oxygen Flow Rate 2 2 Fraction of Inspired Oxygen Sepsis Recent Fever Within 48 Hours Sepsis New/Unexplained Change in Mental Status Sepsis Action Taken by Nursing 09/09/20 10:08 09/09/20 10:28 09/09/20 10:29 Temperature Temperature Source Pulse Rate 110 H Pulse Rate [Left Finger] 108 H 96 H Pulse Rate [Right Finger] Pulse Rate from SpO2 Sensor Pulse Rhythm Pulse Rhythm [Left Finger] Pulse Rhythm [Right Finger] Pulse Strength Respiratory Rate 24 20 Respiratory Effort / Characteristics Respiratory Depth Respiratory Pattern Blood Pressure 112/78 Blood Pressure [Left Arm] 119/74 126/96 Blood Pressure Mean Blood Pressure Mean [Left Arm] 89 106 Blood Pressure Position Pulse Oximetry 97 97 Oxygen Delivery Method Nasal Cannula Nasal Cannula Oxygen Flow Rate 2 2 Fraction of Inspired Oxygen Sepsis Recent Fever Within 48 Hours Sepsis New/Unexplained Change in Mental Status Sepsis Action Taken by Nursing 09/09/20 11:01 09/09/20 11:16 09/09/20 11:20 Temperature Temperature Source Pulse Rate 115 H Pulse Rate [Left Finger] Pulse Rate [Right Finger] 109 H Pulse Rate from SpO2 Sensor 127 H Pulse Rhythm Pulse Rhythm [Left Finger] Irregular Pulse Rhythm [Right Finger] Irregular Pulse Strength Respiratory Rate 20 24 Respiratory Effort / Characteristics Respiratory Depth Respiratory Pattern Blood Pressure 124/82 Blood Pressure [Left Arm] Blood Pressure Mean 96 Blood Pressure Mean [Left Arm] Blood Pressure Position Pulse Oximetry 99 81 L Oxygen Delivery Method Nasal Cannula Room Air Nasal Cannula Oxygen Flow Rate 3 4 Fraction of Inspired Oxygen Sepsis Recent Fever Within 48 Hours Sepsis New/Unexplained Change in Mental Status Sepsis Action Taken by Nursing 09/09/20 11:25 09/09/20 11:30 09/09/20 11:31 Temperature Temperature Source Pulse Rate 65 67 115 H Pulse Rate [Left Finger] Pulse Rate [Right Finger] Pulse Rate from SpO2 Sensor 68 67 129 H Pulse Rhythm Pulse Rhythm [Left Finger] Pulse Rhythm [Right Finger] Pulse Strength Respiratory Rate 16 16 25 H Respiratory Effort / Characteristics Respiratory Depth Respiratory Pattern Blood Pressure 137/70 135/86 131/99 Blood Pressure [Left Arm] Blood Pressure Mean 92 102 109 Blood Pressure Mean [Left Arm] Blood Pressure Position Pulse Oximetry 97 96 Oxygen Delivery Method Nasal Cannula Nasal Cannula Oxygen Flow Rate 4 4 4 Fraction of Inspired Oxygen Sepsis Recent Fever Within 48 Hours Sepsis New/Unexplained Change in Mental Status Sepsis Action Taken by Nursing 09/09/20 11:36 09/09/20 11:42 09/09/20 12:00 Temperature Temperature Source Pulse Rate 102 H 71 Pulse Rate [Left Finger] Pulse Rate [Right Finger] 96 H Pulse Rate from SpO2 Sensor 69 Pulse Rhythm Pulse Rhythm [Left Finger] Pulse Rhythm [Right Finger] Pulse Strength Respiratory Rate 20 20 17 Respiratory Effort / Characteristics Spontaneous Short of Breath Spontaneous Short of Breath Respiratory Depth Normal Respiratory Pattern Regular Blood Pressure 126/86 Blood Pressure [Left Arm] Blood Pressure Mean 99 Blood Pressure Mean [Left Arm] Blood Pressure Position Pulse Oximetry 96 96 95 Oxygen Delivery Method BiPAP BiPAP Oxygen Flow Rate Fraction of Inspired Oxygen 50 50 Sepsis Recent Fever Within 48 Hours Sepsis New/Unexplained Change in Mental Status Sepsis Action Taken by Nursing 09/09/20 12:30 Temperature Temperature Source Pulse Rate 72 Pulse Rate [Left Finger] Pulse Rate [Right Finger] Pulse Rate from SpO2 Sensor 72 Pulse Rhythm Pulse Rhythm [Left Finger] Pulse Rhythm [Right Finger] Pulse Strength Respiratory Rate 10 L Respiratory Effort / Characteristics Respiratory Depth Respiratory Pattern Blood Pressure 128/80 Blood Pressure [Left Arm] Blood Pressure Mean 96 Blood Pressure Mean [Left Arm] Blood Pressure Position Pulse Oximetry 98 Oxygen Delivery Method BiPAP Oxygen Flow Rate Fraction of Inspired Oxygen Sepsis Recent Fever Within 48 Hours Sepsis New/Unexplained Change in Mental Status Sepsis Action Taken by Nursing Vital signs reviewed. Noted to be hypoxic on 2 L nasal cannula General: Chronically ill-appearing 80-year-old male, in some respiratory discomfort. HEENT: No scleral icterus, PERRLA, neck supple. Cushingoid appearance to the face. Cardiovascular: Rapid and irregular. Pulmonary: Coarse breath sounds to auscultation bilaterally, increased work of breathing. Placed on nasal cannula oxygen Abdomen: Soft, nontender, nondistended, positive bowel sounds. Musculoskeletal: Atraumatic, moderate peripheral edema. Neurologic: Patient awake alert and oriented x 3 Skin: Warm, dry, no rash Course Administered Medications Furosemide 60 mg/ Syringe 6 mls @ 4 mls/min IV [id number] [facility] Stop: 10/09/20 14:14 Last Admin: 09/09/20 14:39 Dose: 4 mls/min Documented by: [id number] Discontinued Medications Albuterol (Albut/Ipratrop 3mg/0.5mg Neb 3 Ml Vial) 3 ml NEB NOW STA Stop: 09/09/20 11:24 Last Admin: 09/09/20 11:41 Dose: 3 ml Documented by: [id number] Cefepime HCl (Maxipime) 2,000 mg in 20 mls @ 5 mls/min IV NOW STA; Protocol Stop: 09/09/20 11:26 Last Admin: 09/09/20 11:46 Dose: 5 mls/min Documented by: [id number] Insulin Human Regular (Novolin-R Insulin Per Unit Charge) 10 units SC NOW [facility] Stop: 09/09/20 09:46 Last Admin: 09/09/20 10:00 Dose: 10 units Documented by: [id number] Cosigned by: [id number] Methylprednisolone (Methylprednisolone 40 Mg/Ml Vial) 40 mg IV NOW STA Stop: 09/09/20 11:24 Last Admin: 09/09/20 11:43 Dose: 40 mg Documented by: [id number] Metoprolol Tartrate (Metoprolol Tartrate 1 Mg/Ml Vial) 5 mg IV Q5M PRN PRN Reason: Tachycardia Stop: 10/09/20 08:47 Last Admin: 09/09/20 10:29 Dose: 5 mg Documented by: [id number] Admin: 09/09/20 10:07 Dose: 5 mg Documented by: [id number] Admin: 09/09/20 09:30 Dose: 5 mg Documented by: [id number] Critical Care Time Critical Care Time: Yes I have personally spent greater than 35 minutes of critical care time in the direct management of this patient. This includes bedside care, interpretation of diagnostic studies, and testing, discussion with consultants, patient, and family members, and other required patient management activities. This 35 minutes is in excess of all separately billable procedures. Medical Decision Making Differential Diagnosis Reactive airway disease, pneumonia, pneumothorax, COPD, CHF, infections, cardiac ischemia, pulmonary embolism, musculoskeletal, gastrointestinal, as well as other pathologies. Medical Records Attestation: I reviewed the patient's medical records. Home Medications Current Medication List: was personally reviewed by me Laboratory Data Attestation: I reviewed the patient's lab results. Result diagrams: 09/09/20 08:46 09/09/20 08:46 Lab Results 09/09/20 09/09/20 09/09/20 Range/Units 08:46 08:46 08:46 WBC 9.91 (4.8-10.8) K/uL RBC 3.75 L (4.7-6.1) M/uL Hgb 9.9 L (14.0-18.0) g/dL Hct 33.0 L (42-52) % MCV 88.0 (80-100) fL MCH 26.4 (25-34) pg MCHC 30.0 L (32-36) g/dL RDW Std Deviation 57.5 H (36.4-46.3) fL RDW Coeff of Samira 17.8 H (11.5-14.5) % Plt Count 240 (130-400) K/uL MPV 9.9 (7.4-10.4) fL Immature Gran % (Auto) 0.7 % Neut % (Auto) 79.8 % Lymph % (Auto) 11.9 % Gilliam % (Auto) 7.1 % Eos % (Auto) 0.4 % Baso % (Auto) 0.1 % Neut # (Auto) 7.91 H (1.4-6.5) K/uL Lymph # (Auto) 1.18 L (1.2-3.4) K/uL Gilliam # (Auto) 0.70 H (0.11-0.59) K/uL Eos # (Auto) 0.04 (0-0.5) K/uL Baso # (Auto) 0.01 (0-0.2) K/uL Immature Gran # (Auto) 0.07 H (0.00-0.02) K/uL PT 64.5 H (9.0-12.0) Seconds INR 7.5 H* (0.9-1.1) APTT 51.8 H* (21.0-31.0) Seconds PTT Ratio 2.0 Sodium 139 (136-145) mmol/L Potassium 4.7 (3.5-5.1) mmol/L Chloride 102 (98-107) mmol/L Carbon Dioxide 31 (21-32) mmol/L Anion Gap 6.0 (3-11) BUN 39 H (7-18) mg/dl Creatinine 1.50 H (0.6-1.4) mg/dl Est Cr Clr Drug Dosing Not Reportable Est GFR ( Amer) 49.5 ml/min Est GFR (Non-Af Amer) 42.7 ml/min BUN/Creatinine Ratio 26.2 H (10-20) Glucose 360 H* (70-99) mg/dl POC Glucose (70-99) mg/dl Calcium 8.8 (8.5-10.1) mg/dl Total Bilirubin 0.9 (0.2-1) mg/dl AST 22 (15-37) U/L ALT 74 (12-78) U/L Alkaline Phosphatase 153 H (45-117) U/L Total Protein 5.8 L (6.4-8.2) gm/dl Albumin 2.4 L (3.4-5.0) gm/dl Globulin 3.4 (2.5-4.0) gm/dl Albumin/Globulin Ratio 0.7 L (0.9-2) Beta-Hydroxybutyric Acd 4.40 H (0.2-2.81) mg/dl Procalcitonin (0-0.5) ng/ml COVID-19 Eval Order SARS-CoV-2 (PCR) (Negative) 09/09/20 09/09/20 09/09/20 Range/Units 09:00 09:16 09:16 WBC (4.8-10.8) K/uL RBC (4.7-6.1) M/uL Hgb (14.0-18.0) g/dL Hct (42-52) % MCV (80-100) fL MCH (25-34) pg MCHC (32-36) g/dL RDW Std Deviation (36.4-46.3) fL RDW Coeff of Samira (11.5-14.5) % Plt Count (130-400) K/uL MPV (7.4-10.4) fL Immature Gran % (Auto) % Neut % (Auto) % Lymph % (Auto) % Gilliam % (Auto) % Eos % (Auto) % Baso % (Auto) % Neut # (Auto) (1.4-6.5) K/uL Lymph # (Auto) (1.2-3.4) K/uL Gilliam # (Auto) (0.11-0.59) K/uL Eos # (Auto) (0-0.5) K/uL Baso # (Auto) (0-0.2) K/uL Immature Gran # (Auto) (0.00-0.02) K/uL PT (9.0-12.0) Seconds INR (0.9-1.1) APTT (21.0-31.0) Seconds PTT Ratio Sodium (136-145) mmol/L Potassium (3.5-5.1) mmol/L Chloride (98-107) mmol/L Carbon Dioxide (21-32) mmol/L Anion Gap (3-11) BUN (7-18) mg/dl Creatinine (0.6-1.4) mg/dl Est Cr Clr Drug Dosing Est GFR ( Amer) ml/min Est GFR (Non-Af Amer) ml/min BUN/Creatinine Ratio (10-20) Glucose (70-99) mg/dl POC Glucose (70-99) mg/dl Calcium (8.5-10.1) mg/dl Total Bilirubin (0.2-1) mg/dl AST (15-37) U/L ALT (12-78) U/L Alkaline Phosphatase (45-117) U/L Total Protein (6.4-8.2) gm/dl Albumin (3.4-5.0) gm/dl Globulin (2.5-4.0) gm/dl Albumin/Globulin Ratio (0.9-2) Beta-Hydroxybutyric Acd (0.2-2.81) mg/dl Procalcitonin 0.76 H (0-0.5) ng/ml COVID-19 Eval Order Covid19 at [facility] SARS-CoV-2 (PCR) NEGATIVE (Negative) 09/09/20 09/09/20 Range/Units 11:49 11:51 WBC (4.8-10.8) K/uL RBC (4.7-6.1) M/uL Hgb (14.0-18.0) g/dL Hct (42-52) % MCV (80-100) fL MCH (25-34) pg MCHC (32-36) g/dL RDW Std Deviation (36.4-46.3) fL RDW Coeff of Samira (11.5-14.5) % Plt Count (130-400) K/uL MPV (7.4-10.4) fL Immature Gran % (Auto) % Neut % (Auto) % Lymph % (Auto) % Gilliam % (Auto) % Eos % (Auto) % Baso % (Auto) % Neut # (Auto) (1.4-6.5) K/uL Lymph # (Auto) (1.2-3.4) K/uL Gilliam # (Auto) (0.11-0.59) K/uL Eos # (Auto) (0-0.5) K/uL Baso # (Auto) (0-0.2) K/uL Immature Gran # (Auto) (0.00-0.02) K/uL PT (9.0-12.0) Seconds INR (0.9-1.1) APTT (21.0-31.0) Seconds PTT Ratio Sodium (136-145) mmol/L Potassium (3.5-5.1) mmol/L Chloride (98-107) mmol/L Carbon Dioxide (21-32) mmol/L Anion Gap (3-11) BUN (7-18) mg/dl Creatinine (0.6-1.4) mg/dl Est Cr Clr Drug Dosing Est GFR ( Amer) ml/min Est GFR (Non-Af Amer) ml/min BUN/Creatinine Ratio (10-20) Glucose (70-99) mg/dl POC Glucose 347 H* 337 H* (70-99) mg/dl Calcium (8.5-10.1) mg/dl Total Bilirubin (0.2-1) mg/dl AST (15-37) U/L ALT (12-78) U/L Alkaline Phosphatase (45-117) U/L Total Protein (6.4-8.2) gm/dl Albumin (3.4-5.0) gm/dl Globulin (2.5-4.0) gm/dl Albumin/Globulin Ratio (0.9-2) Beta-Hydroxybutyric Acd (0.2-2.81) mg/dl Procalcitonin (0-0.5) ng/ml COVID-19 Eval Order SARS-CoV-2 (PCR) (Negative) Imaging Data Radiologist's Impression: Chest X-Ray 09/09/20 08:46 XR chest 1V portable HISTORY: 80 years-old Male Dyspnea acute shortness of breath COMPARISON: Chest radiograph 09/03/2020 TECHNIQUE: AP view of the chest FINDINGS: Cardiac silhouette is enlarged. Left subclavian pacer. Calcific plaque of the thoracic aorta. No pneumothorax. Small pleural effusions with persistent bibasilar consolidation. Mildly decreased pulmonary vascular congestion. Degenerative changes of the shoulders and spine. IMPRESSION: 1. Cardiomegaly with decreased pulmonary vascular congestion. 2. Small pleural effusions with persistent right greater than left bibasilar opacities suggestive of atelectasis or pneumonia. ACT 112: Negative or not required by law. The above report was generated using voice recognition software. It may contain grammatical, syntax or spelling errors. Electronically signed by: Ken Magaña M.D. 09/09/2020 10:08 AM ECG Data Attestation: I personally reviewed and interpreted this ECG as follows: Indication: + SOB/dyspnea Rate (beats per minute): 121 Rhythm: + atrial fibrillation ECG Intervals/blocks: + Left anterior fascicular block, + Incomplete right bundle branch block and + Prolonged QT (474) ECG Ripton: + Left axis deviation ECG ST segments: + Nonspecific ST abnormalities and + repolarization abnormalities ECG Findings: no PACs and no PVCs MDM Narrative This patient was evaluated and appeared to be in some respiratory discomfort. IV access was obtained and laboratory work was drawn. The patient was sitting up at the bedside upon my evaluation on room air. Nasal cannula oxygen was applied at 2 L. Patient did maintain his saturations between 88 and 90% however with any speaking he dropped into the mid 80s. Patient was turned up to 4 L nasal cannula. Breath sounds are remarkably coarse bilaterally. He is noted to be in a rapid atrial fibrillation therefore a DuoNeb treatment was withheld initially. Patient did not take his morning medications therefore was given 5 mg of IV metoprolol was given. Covid swab is negative. Respiratory therapy was contacted and the patient was placed on BiPAP. The hospitalist service was consulted for further management. Patient and have been made aware of the plan and agree. Impression & Plan COPD (chronic obstructive pulmonary disease), Atrial fibrillation with rapid ventricular response, Respiratory failure with hypoxia Discharge Plan Visit Data Chief Complaint: Shortness of Breath/Dyspnea Stated Complaint: SOB/CONGESTED ED Provider: Sylvia Elizabeth Discharge Problem: COPD (chronic obstructive pulmonary disease), Atrial fibrillation with rapid ventricular response, Respiratory failure with hypoxia Patient Disposition: Admitted As Inpatient Discharge Instructions Interventions: ED Discharge Assessment Last Done: 09/09/20 13:27
[2020-09-09] MEDS ORDERED: INSULIN PROTOCOL GOAL RANGE ONE (15:29)
[2020-09-09] MEDS ORDERED: MODERATE STRESS LEVEL ONE (15:29)
[2020-09-09] MEDS ORDERED: INSULIN REGULAR 250 UNITS in SODIUM CHLORIDE 0.9% 247.5 ML IV SCH (15:30)
--- NOTE | 2020-09-09 15:37 | Critical Care Consultation ---
Date of Consultation September 09, 2020 Assessment & Plan (1) Acute on chronic respiratory failure with hypoxia and hypercapnia: ABG 09/09/2020: 7.42/48/90 on 50% Chest x-ray 09/26/2020 personally reviewed: Portable film, hyperinflated from, patient has chronic changes appreciated in the bilateral lower lobes more on the right side. Blunted bilateral costophrenic angles. -- Acute on chronic hypoxic hypercapnic respiratory failure Multifactorial I think patient's underlying diastolic CHF is playing a role Patient is also in A. fib with RVR which will need to loss of atrial kick Underlying COPD and ILD also playing a role Continue with O2 supplementation to keep oxygen saturation between 88-92% BiPAP nightly and as needed shortness of breath If there is any worsening patient will be intubated. Patient has AVAPS at home --A. fib with RVR Continue with home dose metoprolol and digoxin If still not controlled we will start him on diltiazem drip At the blood pressure is on the lower side will consider amiodarone --CKD Monitor BUNs/creatinine Avoid nephrotoxic medications --Supratherapeutic INR No signs of bleeding We will give vitamin K --Diabetes type 1 With elevated beta hydroxybutyric acid Continue with ICU hyperglycemia protocol If it is not controlled with subcu insulin will start IV drip --Dyslipidemia Continue with atorvastatin --COPD pulmonary fibrosis syndrome Patient has a combination of COPD with emphysema as well as pulmonary fibrosis Follows up with Dr. Johansen as an outpatient --Tachybradycardia syndrome S/p pacemaker --History of pleural plaques Likely from asbestos exposure --Prophylaxis VTE: Warfarin GI: Lines: Peripheral Diet: Cardiorenal Plan: Continue with BiPAP 04/06. Patient is getting good tidal volume If there is any respiratory distress will intubate the patient. Patient is agreeable to intubation Overall prognosis of the patient is guarded given the significant lung disease and clinically deteriorating status Palliative care has been consulted. We will give his home dose of metoprolol p.o. To the hospital still not controlled we will start him on diltiazem drip. Blood pressure will not be able to sustain We will start amiodarone drip. Continue with aggressive chest PT and mucolytic therapy. Vitamin K 2.5 for the INR being elevated. Patient has poor vascular access. Will get the vascular team to put a line in it. He did not able to put it and then will put a central line in. For hyperglycemia pharmacy helping with it. Likely will need insulin drip. I have personally spent 62 minutes of critical care time in the direct managem ent of this patient. This is a life/limb threatening event. This includes time spent evaluating pat ient, direct bedside care, chart review, placing orders, interpretation of diagnostic studies, discussion with consultants, patient, and family members, as well as other required patient management activities. This time is exclusive of all separately billable procedures, and teaching time and separate from and in addition to any other critical care service time. Please note the above document was generated using voice recognition software. It may contain grammatical, syntax or spelling errors. (2) Atrial fibrillation with rapid ventricular response: (3) Interstitial lung disease: (4) Acute exacerbation of chronic obstructive pulmonary disease: (5) COPD (chronic obstructive pulmonary disease): (6) Supratherapeutic INR: (7) Diabetes type I: History of Present Illness Attending Physician: Syed Cage MD History of Present Illness 80-year-old male past medical history of COPD with pulmonary fibrosis on 3 L nasal cannula at home, patient also has AVAPS machine at home, A. fib on Coumadin, tracheobronchomalacia, diastolic CHF, CKD stage III He presented to the ER with complaints of worsening shortness of breath going on since last couple of days. He was admitted to the floor but on the floor he had code purple and was complaining of shortness of breath while on BiPAP. That is why he was transferred to the ICU At the time of examination patient was on BiPAP 12/8 40% not in any acute distress. He stated that he felt better compared to when he was on the floor. He was getting tidal volumes of around 800. Patient stayed at home that he has been using the inhalers. He was getting more progressively short of breath. He is bringing up phlegm which is usually clear. Denies any hemoptysis. Denies any headache, no fever or chills. Denies any dysuria or diarrhea. Follows up with Dr. Johansen as an outpatient. I personally looked at his last note. He was recently admitted to the hospital and discharged on August 17, 2020 with Pseudomonas pneumonia. Used to be a heavy smoker quit a long time ago. Allergies Allergy/AdvReac Type Severity Reaction Status Date / Time diltiazem Allergy Mild rash Verified 09/09/20 10:09 fluticasone furoate AdvReac Intermediate Joint Pain Verified 09/09/20 10:09 [From Breo Ellipta] vilanterol AdvReac Intermediate Joint Pain Verified 09/09/20 10:09 [From Breo Ellipta] aspirin AdvReac Mild GI symptoms Verified 09/09/20 10:09 lisinopril AdvReac Mild cough Verified 09/09/20 10:09 propoxyphene AdvReac Mild GI upset, Verified 09/09/20 10:09 diarrhea Home Medications Medication Instructions Recorded Confirmed Type Flonase Sensimist 2 spray INTRANASAL DAILY PRN 07/03/18 09/09/20 History Lantus Solostar U-100 Insulin 20 - 22 unit SUBCUT QAM 07/03/18 09/09/20 History insulin aspart U-100 [Novolog 4 - 6 unit SUBCUT TID 07/03/18 09/09/20 History Flexpen U-100 Insulin] nitroglycerin [Nitrostat] 0.4 mg SUBLINGUAL UD PRN 07/03/18 09/09/20 History simvastatin [Zocor] 20 mg PO QPM 07/03/18 09/09/20 History tamsulosin [Flomax] 0.4 mg PO HS 07/03/18 09/09/20 History warfarin 2.5 mg tablet 2.5 mg PO MO 01/10/19 09/09/20 History levalbuterol HCl 1.25 mg INHALATION Q4H PRN 04/20/20 09/09/20 History metoprolol tartrate 50 mg PO BID 04/20/20 09/09/20 History warfarin 1.25 mg PO SUTUWETHFRSA 04/20/20 09/09/20 History digoxin 125 mcg (0.125 mg) tablet 125 mcg PO 3XWK tab 07/12/20 09/09/20 History acetylcysteine 100 mg/mL (10 %) 3 ml INHALATION BID #180 ml 07/22/20 09/09/20 Rx solution Anoro Ellipta 1 inh INHALATION QAM 08/13/20 09/09/20 History triamcinolone acetonide 0.1 % 1 applic TOPICAL BID #15 g 08/24/20 09/09/20 Rx topical cream ipratropium 20 mcg-albuterol 100 1 puff INHALATION Q6H #3 inhaler 08/31/20 09/09/20 Rx mcg/actuation mist for inhalation hydroxyzine HCl 10 mg PO Q8H PRN 09/09/20 09/09/20 History ipratropium bromide 2.5 ml INHALATION QID PRN 09/09/20 09/09/20 History prednisone 10 mg PO QAM 09/09/20 09/09/20 History torsemide 10 mg PO QAM 09/09/20 09/09/20 History Patient History Medical History Anemia felt d/t chronic disease, hgb baseline 10-12 range per chart review Atrial fibrillation paroxysmal- on coumadin BPH (benign prostatic hypertrophy) CKD (chronic kidney disease) stage 3, GFR 30-59 ml/min COPD (chronic obstructive pulmonary disease) Diabetes type I Dyslipidemia per records Elbow fracture, right current issue s/p fall at home GERD (gastroesophageal reflux disease) r/t inhalers Interstitial lung disease Nocturnal hypoxemia 2L O2 HS 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)/last check 06/09/19 Pulmonary embolism remote hx Skin cancer left elbow region Surgical History H/O basal cell carcinoma excision REMOVED FROM NOSE H/O hand surgery LEFT MIDDLE FINGER FX REPAIR H/O inguinal hernia repair H/O nasal polypectomy History of bronchoscopy History of cataract surgery RT/LEFT History of colonoscopy History of inguinal hernia repair History of lung biopsy robotic thoracoscopy, pleural biopsy: 08/09/16: Grade view 1, MAC#3 at [facility] History of surgery of head "correct skull abnormality- left temporoparietal ; 1992" History of tooth extraction Status post placement of cardiac pacemaker Family History Brother Diabetes Son Diabetes Family hx of colon cancer Other Heart disease Social History Smoking Status: Former smoker Second Hand Exposure: No; Do You Dip or Chew Tobacco: No; Tobacco Cessation Education Requested by Patient: No Hx Alcohol Use: Yes Alcohol type: beer Hx Substance Use: No Preferred Language: Comoran Communication Ability: Effective Visual Impairment: No Limitations Lock Plater Required: No Beliefs That Will Affect Care: Anabaptist Anabaptist Beliefs: Protestant marital status: Current Living Situation: Spouse Current Living Situation Comment: at home Feels Safe at Home: Yes Safety Concerns: Feels Safe At This Time Assistive Devices: Cane Review of Systems Review of Systems: All systems reviewed & are unremarkable except as noted in HPI & below Physical Exam Physical Exam: Constitutional: No acute distress HEENT: EOMI, PERRLA, puffy eyelids Respiratory system: Decreased air entry bilaterally, no wheeze, no rhonchi, positive crackles bilateral lower lobes more on the right side CVS: S1-S2 positive, no murmurs or gallops, distant heart sounds, irregular Abdomen: Soft, nontender, nondistended, positive bowel sounds x4 Extremities: +2 pulses bilaterally radialis/ dorsalis pedis, no cyanosis, +3 pitting edema bilateral lower extremity Neuro: Awake alert oriented x3 Psych: Normal mood and affect G/U: No Drew Skin: no rashes, warm and dry Lymphatic: no cervical or axillary lymphadenopathy Results & Data Results & Data ([facility]) Vital Signs (Past 12 Hours) Vital Signs Temp Pulse Pulse Pulse Pulse Resp BP 09/09/20 14:51 129 H 40 H 09/09/20 14:46 121 H 36 H 09/09/20 13:54 36.7 C 111 H 24 09/09/20 13:52 09/09/20 13:46 110 H 21 09/09/20 13:00 112 H 21 111/90 09/09/20 12:31 101 H 17 118/99 09/09/20 12:30 72 10 L 128/80 09/09/20 12:00 71 17 126/86 09/09/20 11:42 96 H 20 09/09/20 11:36 102 H 20 09/09/20 11:31 115 H 25 H 131/99 09/09/20 11:30 67 16 135/86 09/09/20 11:25 65 16 137/70 09/09/20 11:16 109 H 24 09/09/20 11:01 115 H 20 124/82 09/09/20 10:29 110 H 112/78 09/09/20 10:28 96 H 20 09/09/20 10:08 108 H 24 09/09/20 09:58 116 H 20 09/09/20 09:30 110 H 128/81 09/09/20 09:28 110 H 09/09/20 08:23 36.9 C 121 H 24 113/82 BP Pulse Ox Pulse Ox 09/09/20 14:51 102/59 L 67 L 09/09/20 14:46 106/69 69 L 09/09/20 13:54 122/79 100 09/09/20 13:52 96 09/09/20 13:46 93 09/09/20 13:00 96 09/09/20 12:31 97 09/09/20 12:30 98 09/09/20 12:00 95 09/09/20 11:42 96 09/09/20 11:36 96 09/09/20 11:31 09/09/20 11:30 96 09/09/20 11:25 97 09/09/20 11:16 81 L 09/09/20 11:01 99 09/09/20 10:29 09/09/20 10:28 126/96 97 09/09/20 10:08 119/74 97 09/09/20 09:58 135/96 98 09/09/20 09:30 09/09/20 09:28 129/92 09/09/20 08:23 88 L 09/09/20 08:46 09/09/20 08:46 Coding Level of Care Code Critical Care 1st 30-74 mins Diagnoses Acute on chronic respiratory failure with hypoxia and hypercapnia J96.21; J96.22 Atrial fibrillation with rapid ventricular response I48.91 Interstitial lung disease J84.9 Acute exacerbation of chronic obstructive pulmonary disease J44.1 COPD (chronic obstructive pulmonary disease) J44.9 COPD type: unspecified COPD Supratherapeutic INR R79.1 Diabetes type I E10.9 Time Spent (min) 62 (1) COPD (chronic obstructive pulmonary disease) COPD type: unspecified COPD Qualified Code(s): J44.9 - Chronic obstructive pulmonary disease, unspecified
[2020-09-09] MEDS ORDERED: INSULIN GLARGINE SOLOSTAR 100 UNITS/ML 3 ML PEN SC ONE (16:00)
[2020-09-09] MEDS: INSULIN ASPART 100 UNITS/ML 3 ML PEN SC SCH ×3 (16:01→23:46)
[2020-09-09] MEDS: METOPROLOL TARTRATE 25 MG TAB PO SCH ×2 (16:01→21:25)
[2020-09-09] MEDS: FAMOTIDINE 20 MG in SYRINGE 3 ML IV SCH (16:23)
[2020-09-09] MEDS ORDERED: PHYTONADIONE 2.5 MG in SODIUM CHLORIDE 0.9% 50 ML IV ONE (16:30)
[2020-09-09] MEDS: ALBUT/IPRATROP 3MG/0.5MG NEB 3 ML VIAL NEB SCH (19:29)
[2020-09-09] MEDS: ACETYLCYSTEINE 10% INHAL SOLN 4 ML **DISPENSED BY RESP. INH SCH (19:29)
[2020-09-09] MEDS ORDERED: metOLazone 5 MG TABLET PO ONE (19:45)
[2020-09-09] MEDS: SIMVASTATIN 20 MG TAB PO SCH (21:24)
[2020-09-09] MEDS: TAMSULOSIN HCL 0.4 MG CAP PO SCH (21:24)
--- NOTE | 2020-09-09 22:57 | Electrocardiogram Report ---
Test Reason : Blood Pressure : / mmHG Vent. Rate : 121 BPM Atrial Rate : 340 BPM P-R Int : 000 ms QRS Dur : 110 ms QT Int : 334 ms P-R-T Axes : 000 -56 150 degrees QTc Int : 474 ms Poor data quality, interpretation may be adversely affected Atrial fibrillation with rapid ventricular response Low voltage QRS Incomplete right bundle branch block Left anterior fascicular block Abnormal ECG When compared with ECG of 13-AUG-2020 12:22, T wave inversion more evident in Lateral leads Confirmed by Kvng Teran ([id number]) on 09/09/2020 10:57:00 PM Referred By: REFERRED SELF Confirmed By:Kvng Teran
[2020-09-09] MEDS: CEFEPIME 2,000 MG in SYRINGE 0 ML IV SCH (23:39)
[2020-09-10] MEDS: ALBUT/IPRATROP 3MG/0.5MG NEB 3 ML VIAL NEB SCH ×4 (00:27→19:16)
[2020-09-10] MEDS: INSULIN ASPART 100 UNITS/ML 3 ML PEN SC SCH ×5 (03:59→20:31)
[2020-09-10 05:01] LABS: Hematocrit (blood only) 32.5 % (42-52); Hemoglobin 9.9 g/dL (14.0-18.0); Immature Granulocytes # (auto) 0.04 K/uL (0.00-0.02); Immature Granulocytes % (auto) 0.3 %; Mean Corpuscular Hemoglobin 26.5 pg (25-34); Mean Corpuscular Hgb Conc 30.5 g/dL (32-36); Mean Corpuscular Volume 86.9 fL (80-100); Mean Platelet Volume 9.3 fL (7.4-10.4); Monocytes # (auto) 0.48 K/uL (0.11-0.59); Monocytes % (auto) 4.2 %; Neutrophils # (auto) 10.15 K/uL (1.4-6.5); Neutrophils % (auto) 88.5 %; Platelet Count 216 K/uL (130-400); RDW Coefficient of Variation 17.5 % (11.5-14.5); RDW Standard Deviation 55.8 fL (36.4-46.3); Red Blood Count 3.74 M/uL (4.7-6.1); White Blood Count 11.47 K/uL (4.8-10.8)
[2020-09-10 05:14] LABS: Base Excess VBG 5.3 mEq/L; HCO3 VBG 32 mmol/L; PCO2 VBG 57 mmHg (38-50); PO2 VBG 27 mmHg; pH VBG 7.36 (7.36-7.41)
[2020-09-10 05:17] LABS: INR 1.7 (0.9-1.1); Prothrombin Time 16.7 Seconds (9.0-12.0)
[2020-09-10 05:26] LABS: Oxygen Saturation VBG < 60.0 %
[2020-09-10 05:27] LABS: Albumin Level 2.3 gm/dl (3.4-5.0); BUN Creatinine Ratio 29.5 (10-20); Calcium 8.4 mg/dl (8.5-10.1); Creatinine Clr Calc Pharmacy 47.4 ml/min; Est GFR (African American) 53.8 ml/min; Est GFR (Non-African American) 46.5 ml/min; Magnesium 2.1 mg/dl (1.8-2.4); Potassium 4.5 mmol/L (3.5-5.1)
[2020-09-10 05:29] LABS: Albumin Globulin Ratio 0.7 (0.9-2); Bilirubin,Total 0.8 mg/dl (0.2-1); Globulin 3.5 gm/dl (2.5-4.0); Total Protein 5.8 gm/dl (6.4-8.2)
[2020-09-10 07:15] LABS: Estimated Average Glucose 217 mg/dl; Hemoglobin A1C 9.2 % (4.5-5.6)
[2020-09-10] MEDS: ACETYLCYSTEINE 10% INHAL SOLN 4 ML **DISPENSED BY RESP. INH SCH ×2 (07:17→19:16)
[2020-09-10] MEDS: INSULIN GLARGINE SOLOSTAR 100 UNITS/ML 3 ML PEN SC SCH (07:51)
[2020-09-10] MEDS: FAMOTIDINE 20 MG in SYRINGE 3 ML IV SCH (07:55)
[2020-09-10] MEDS: FUROSEMIDE 60 MG in SYRINGE 0 ML IV SCH ×2 (07:55→17:02)
[2020-09-10] MEDS: UMECLIDINIUM/VILANTEROL 62.5/25MCG 7 PUFFS/INHALER INH SCH (07:56)
[2020-09-10] MEDS: METOPROLOL TARTRATE 25 MG TAB PO SCH ×2 (07:58→20:30)
[2020-09-10] MEDS ORDERED: methylPREDNISolone 40 MG in SYRINGE 0 ML IV SCH (09:00)
[2020-09-10] MEDS ORDERED: INSULIN GLARGINE SOLOSTAR 100 UNITS/ML 3 ML PEN SQ SCH (09:00)
[2020-09-10] MEDS: metOLazone 5 MG TABLET PO SCH (09:07)
--- NOTE | 2020-09-10 10:04 | Hospitalist Progress Note ---
Date of Service September 10, 2020 Assessment & Plan (1) Acute on chronic respiratory failure: Acute on chronic hypoxic and hypercapnic respiratory failure Interstitial lung disease History of asbestos exposure COPD with remote tobacco use 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 Johansen in the office yesterday, and oxygen requirement was uptitrated as above. Instructed to continue 10mg prednisone daily and utilize all airway clearance maneuvers and inhalers Per Dr. Johansen, prognosis is poor Has been getting nebulized bronchodilator and also intravenous Solu-Medrol Doubt any pneumonia Started on intravenous cefepime which will be continued for 24 hours and then changed to oral doxycycline We will continue with the BiPAP nightly and as needed for increasing shortness of breath (2) Acute on chronic diastolic heart failure: Appears clinically volume overloaded Increasing shortness of breath with increasing leg edema and chest x-ray evidence of pulmonary edema Given 60mg IV Lasix Monitor volume status closely, strict I&Os, daily weights We will continue current dose of intravenous Lasix and metolazone Reasonable diuresis with symptomatic improvement (3) 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: (4) Interstitial lung disease: (5) COPD (chronic obstructive pulmonary disease): (6) Asbestos exposure: (7) Atrial fibrillation with rapid ventricular response: HR currently 129 contributed by use of bronchodilators Home medications include digoxin, Lopressor IV Lopressor 5mg IV for HR > 110 (8) Supratherapeutic INR: [facility]iary anticoagulation with Coumadin but INR currently 7.5 so HOLDING Received vitamin K INR has been improving-1.7 as of 09/10/2020 Will restart Coumadin (9) Diabetes type I: (10) HTN (hypertension): (11) Tachycardia-bradycardia syndrome: (12) CKD (chronic kidney disease) stage 3, GFR 30-59 ml/min: This is an 80yo M with a PMH of tachybrady syndrome status post pacemaker, chronic Atrial fibrillation anticoagulated on Coumadin, COPD with interstitial lung disease & asbestos exposure with tracheobronchomalacia with chronic respiratory failure on 2 to 3 L oxygen, T1DM, diastolic CHF, HTN, HLD, CKD stage III baseline creatinine 1.7 who presents to ED secondary to progressive difficulty breathing overnight. Supratherapeutic INR INR 7.5 - no evidence of acute bleeding. Hgb at baseline ~ 9.9 Hold Coumadin, trend daily INR Type 1 diabetes Initial BSG 360, beta hydroxybutyric acid 4.4, no ketones in urine Given 10 units insulin regular in ED Glycemic management consulted, planning on initiating IV insulin drip Hypertension BP 102/59 Continue Lopressor with hold parameters Tachybradycardia syndrome Status post pacemaker placement CKD III Kidney function at baseline DVT Ppx: Coumadin held while supratherapeutic Code status: FULL CODE per lengthy discussion with patient and later over phone PCP: Mell Dispo: Admitted to ICU. Discharge planning ordered. Admission and Anticipated Discharge Date Admission Date: September 09, 2020 Subjective 09/10/2020 The patient was seen and examined in ICU He was admitted with acute shortness of breath yesterday with history of signi ficant lung fibrosis He has been feeling a lot better since admission with profuse diuresis Denies any significant symptoms No fever and/or chills and no pain Review of Systems Review of Systems: All systems reviewed and are unremarkable except as noted below Respiratory: + cough and + dyspnea (Minimal dyspnea at rest) Cardiovascular: no chest pain and no palpitations Physical Exam Physical Exam: Sitting on a chair without any acute distress Constitutional: well developed, well nourished, + ill appearing and + obese Eyes: PERRL, conjunctivae normal, anicteric sclerae ENMT: external ear and nose normal, oropharynx normal Neck: trachea midline, no thyromegaly Respiratory: + respiratory distress (Mild to moderate) Auscultation: + diminished lung sounds and + crackles (Bibasilar crackles) Cardiovascular: Rate/Rhythm: regular rate and regular rhythm Heart Sounds: no murmur Extremities: + edema (1+ edema bilaterally) Gastrointestinal (Abdomen): Inspection/Auscultation: normal bowel sounds; abdomen not distended Percussion/Palpation: abdomen soft; abdomen nontender Musculoskeletal: No acute arthritis in any joint Neurologic: Alert, awake and oriented x3. Generally weak but no focal sensory and/or motor deficit appreciated Psychiatric: A+Ox3, euthymic affect Lymphatic: no cervical or axillary lymphadenopathy Results & Data Results & Data ([facility]) Vital Signs (Past 12 Hours) Vital Signs Temp Pulse Pulse Resp BP Pulse Ox 09/10/20 08:00 36.6 C 168 H 23 84 L 09/10/20 07:18 107 H 20 94 09/10/20 07:17 107 H 20 94 09/10/20 07:01 20 133/76 90 09/10/20 07:00 117 H 18 96 09/10/20 06:00 103 H 16 156/73 H 91 09/10/20 05:00 106 H 16 139/95 100 09/10/20 04:11 36.3 C L 09/10/20 04:01 36.9 C 110 H 14 120/77 89 L 09/10/20 03:53 116 H 18 96 09/10/20 03:23 111 H 19 108/72 63 L 09/10/20 02:00 116 H 17 126/92 92 09/10/20 01:00 94 H 13 124/93 98 09/10/20 00:27 97 H 19 99 09/10/20 00:00 98 H 23 117/78 98 09/09/20 23:00 112 H 19 117/75 97 09/09/20 22:35 112 H 18 98 Laboratory Results Short CBC 09/10/20 Range/Units 04:54 WBC 11.47 H (4.8-10.8) K/uL Hgb 9.9 L (14.0-18.0) g/dL Hct 32.5 L (42-52) % Plt Count 216 (130-400) K/uL BMP 09/10/20 04:55 Sodium 142 Potassium 4.5 Chloride 104 Carbon Dioxide 33 H BUN 41 H Creatinine 1.40 Glucose 186 H Calcium 8.4 L Liver Function 09/10/20 Range/Units 04:55 Total Bilirubin 0.8 (0.2-1) mg/dl AST 14 L (15-37) U/L ALT 64 (12-78) U/L Alkaline Phosphatase 126 H (45-117) U/L Albumin 2.3 L (3.4-5.0) gm/dl Medications Administered Current Inpatient Medications Acetaminophen (Acetaminophen 325 Mg Tab) 650 mg PO Q4H PRN PRN Reason: Pain or Fever Stop: 10/09/20 13:51 Acetylcysteine (Acetylcysteine 10% Inhal Soln 4 Ml Dispensed By Resp.) 3 ml INH BIDR RASHEL Stop: 10/09/20 18:59 Last Admin: 09/10/20 07:17 Dose: 3 ml Documented by: Albuterol (Albut/Ipratrop 3mg/0.5mg Neb 3 Ml Vial) 3 ml NEB Q6R RASHEL Stop: 10/09/20 18:59 Last Admin: 09/10/20 12:51 Dose: 3 ml Documented by: Dextrose (Dextrose 50% 50 Ml Syringe) 25 - 50 ml IV UD PRN; Protocol PRN Reason: Hypoglycemia Protocol Stop: 10/09/20 14:14 Digoxin (Digoxin 0.125 Mg Tab) 0.125 mg PO MoWeFr@1600 RASHEL Stop: 10/10/20 15:59 Glucagon (Glucagon For Inj 1 Mg Vial) 1 mg IM UD PRN; Protocol PRN Reason: Hypoglycemia Protocol Stop: 10/09/20 14:14 Glucose (Glucose 40% Gel 15 Gm Tube) 15 - 30 gm PO UD PRN; Protocol PRN Reason: Hypoglycemia Protocol Stop: 10/09/20 14:14 Glucose (Glucose 10 Tabs/Tube) 4 - 8 tabs PO UD PRN; Protocol PRN Reason: Hypoglycemia Protocol Stop: 10/09/20 14:14 Heparin Sodium (Porcine) (Heparin Sod 5,000 Unit/0.5 Ml Vial) 5,000 units SQ Q12H RASHEL Stop: 10/10/20 17:59 Methylprednisolone 40 mg/ (Syringe) 0.64 mls @ 1.5 mls/min IV QAM RASHEL Stop: 10/10/20 08:59 Last Admin: 09/10/20 07:55 Dose: 1.5 mls/min Documented by: Furosemide 60 mg/ Syringe 6 mls @ 4 mls/min IV [id number] RASHEL Stop: 10/09/20 14:14 Last Admin: 09/10/20 07:55 Dose: 4 mls/min Documented by: Cefepime HCl 2,000 mg/ Syringe 20 mls @ 5 mls/min IV Q12H [facility]; Protocol Stop: 09/17/20 00:00 Last Admin: 09/10/20 12:34 Dose: 5 mls/min Documented by: Famotidine 20 mg/ Syringe 5 mls @ 2.5 mls/min IV DAILY [facility] Stop: 10/09/20 15:59 Last Admin: 09/10/20 07:55 Dose: 2.5 mls/min Documented by: Insulin Aspart (Insulin Aspart 100 Units/Ml 3 Ml Pen) 0 units SC AC [facility] Stop: 10/10/20 16:29 Insulin Aspart (Insulin Aspart 100 Units/Ml 3 Ml Pen) 0 units SC HS [facility] Stop: 10/10/20 20:59 Insulin Glargine (Insulin Glargine Solostar 100 Units/Ml 3 Ml Pen) [facility] Protocol Stop: 10/10/20 08:59 Last Admin: 09/10/20 07:51 Dose: 17 units Documented by: Metolazone (Metolazone 5 Mg Tablet) 5 mg PO [facility] Stop: 10/10/20 08:59 Last Admin: 09/10/20 09:07 Dose: 5 mg Documented by: Metoprolol Tartrate (Metoprolol Tartrate 25 Mg Tab) 25 mg PO PM [facility] Stop: 10/09/20 20:59 Last Admin: 09/09/20 21:25 Dose: 25 mg Documented by: Metoprolol Tartrate (Metoprolol Tartrate 25 Mg Tab) 25 mg PO [facility] Stop: 10/09/20 13:51 Last Admin: 09/10/20 07:58 Dose: 25 mg Documented by: Metoprolol Tartrate (Metoprolol Tartrate 1 Mg/Ml Vial) 5 mg IV Q6 PRN PRN Reason: Tachycardia Stop: 10/09/20 13:51 Miscellaneous (Carbohydrates For Hypoglycemia ) 15 - 30 gm PO UD PRN PRN Reason: Hypoglycemia Treatment Stop: 10/09/20 14:14 Miscellaneous (Pending Order: Dc Heparin Sq When Inr Is 2 Or Greater) 1 ea N/A DAILY@1000 [facility] Stop: 10/11/20 09:59 Miscellaneous Information (Cefepime Consult Active) 1 ea N/A UD PRN PRN Reason: Consult Stop: 10/09/20 13:51 Miscellaneous Information (Pharmacy Glycemic Mgmt Consult) 1 ea N/A UD PRN PRN Reason: Consult Stop: 10/09/20 14:11 Nitroglycerin (Nitroglycerin Sl 0.4 Mg/Tab Tab) 0.4 mg SL UD PRN PRN Reason: Chest Pain Stop: 10/09/20 13:51 Ondansetron HCl (Ondansetron Inj 2 Mg/Ml 2 Ml Vial) 4 mg IV Q6H PRN PRN Reason: Nausea Stop: 10/09/20 13:51 Polyethylene Glycol (Polyethylene (Miralax) 17 Gm Pack) 17 gm PO DAILY PRN PRN Reason: Constipation Stop: 10/09/20 13:51 Simvastatin (Simvastatin 20 Mg Tab) 20 mg PO QPM [facility] Stop: 10/09/20 20:59 Last Admin: 09/09/20 21:24 Dose: 20 mg Documented by: Tamsulosin HCl (Tamsulosin Hcl 0.4 Mg Cap) 0.4 mg PO HS [facility] Stop: 10/09/20 20:59 Last Admin: 09/09/20 21:24 Dose: 0.4 mg Documented by: Umeclidinium/Vilanterol (Umeclidinium/Vilanterol 62.5/25mcg 7 Puffs/Inhaler) 1 puffs INH QAM [facility] Stop: 10/10/20 08:59 Last Admin: 09/10/20 07:56 Dose: 1 puffs Documented by: Warfarin Sodium (Warfarin Sod 2 Mg Tab) 2 mg PO DAILY@1600 [facility] Stop: 09/10/20 16:01 (1) COPD (chronic obstructive pulmonary disease) COPD type: unspecified COPD Qualified Code(s): J44.9 - Chronic obstructive pulmonary disease, unspecified
[2020-09-10] MEDS: CEFEPIME 2,000 MG in SYRINGE 0 ML IV SCH ×2 (12:34→23:15)
--- NOTE | 2020-09-10 12:48 | Pharmacy Report ---
Pharmacy Glycemic Short Note 2 - Date of Service September 10, 2020 - Glycemic Short BSG Results (Last 24 hours): 09/09/20 09/09/20 09/09/20 15:32 19:31 23:42 Glucose POC Glucose 131 H 116 H 134 H 09/10/20 09/10/20 09/10/20 03:52 04:55 07:42 Glucose 186 H POC Glucose 167 H 173 H 09/10/20 11:51 Glucose POC Glucose 175 H OUTPATIENT ANTIDIABETIC REGIMEN: * Lantus 20-22 units Qam, Novolog 4-6 units TID * A1c 9.2% 09/10/20 ASSESSMENT: 09/10 * BSGs improved over last 24 hrs * Fasting BSG 173 with 17 units basal on board - will increase dose per scale * Patient's diet has been advanced. He remains on steroids (Solu-medrol 40mg IV Q AM) - will increase Novolog prandial doses w/ meals (reviewed prior admission data showing substantial increase in Novolog requirements w/ steroid provision) * Will use lower Novolog doses at HS given h/o falling BSGs overnight 09/09 * 80 year old admitted with possible pneumonia. Started on steroids. Pharmacy consulted to help with glycemic management. Patient is a type 1 DM. * Received solm 40 iv in ER, BSGs in 300s - plan to start novolog now, verifying with RN if patient took home basal insulin. * May give IV bolus if recheck elevated. Patient NPO status currently. Will do Q4 hr checks to help better control BSGs PLAN FOR INPATIENT GLYCEMIC CONTROL: * Hold outpatient oral diabetes medications * Basal insulin * Lantus SQ Q AM per scale: 0 units if BSG less than 90, 19 units if BSG 90- 200, 22 units if BSG above 200 * Bolus insulin * NovoLog per scale ACHS or Q6hrs while NPO * Goal Range: Low 110 mg/dL - High 140 mg/dL * Correction Factor: 15 mg/dL/unit AC, however use 25mg/dL/unit at HS * Nutritional / Prandial insulin per carb ratio of 1 unit per 6 grams CHO consumed w/ meals, use 1 unit per 10grams CHO at HS PLAN FOR DISCHARGE: * to be determined
--- NOTE | 2020-09-10 14:36 | Critical Care Progress Note ---
Date of Service September 10, 2020 Assessment & Plan (1) Acute on chronic respiratory failure with hypoxia and hypercapnia: ABG 09/09/2020: 7.42/48/90 on 50% Chest x-ray 09/26/2020 personally reviewed: Portable film, hyperinflated from, patient has chronic changes appreciated in the bilateral lower lobes more on the right side. Blunted bilateral costophrenic angles. -- Acute on chronic hypoxic hypercapnic respiratory failure Multifactorial I think patient's underlying diastolic CHF is playing a role Patient is also in A. fib with RVR which will need to loss of atrial kick Underlying COPD and ILD also playing a role Continue with O2 supplementation to keep oxygen saturation between 88-92% BiPAP nightly and as needed shortness of breath Patient has AVAPS at home --A. 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 We will start the patient on warfarin 2 mg and also heparin subcu till the INR is greater than 2 Continue with metolazone once a day along with Lasix twice daily Start tapering steroids as of tomorrow Continue with aggressive chest PT and mucolytic therapy. Patient respirate status has improved compared to yesterday. He gets occasional bouts where he says he cannot breathe but his saturation is okay. This is likely anxiety on top of the bad lung disease that he has. Hemodynamically stable to be downgraded to telemetry floor Please note the above document was generated using voice recognition software. It may contain grammatical, syntax or spelling errors.Any formal questions or concerns about the content, text or information contained within the body of this dictation should be directly addressed to the provider for clarification. (2) Atrial fibrillation with rapid ventricular response: (3) Interstitial lung disease: (4) Acute exacerbation of chronic obstructive pulmonary disease: (5) COPD (chronic obstructive pulmonary disease): (6) Supratherapeutic INR: (7) Diabetes type I: Admission and Anticipated Discharge Date Admission Date: September 09, 2020 Subjective Patient seen and examined at bedside. No acute distress, no adverse events overnight. Patient is diuresing well. He said he is breathing much better compared to when he came to the hospital. He used BiPAP overnight. At the time of examination he was on nasal cannula saturating well. Denies any chest pain, no headache, no nausea, no vomiting. Review of Systems Review of Systems: All systems reviewed & are unremarkable except as noted in Subjective Physical Exam Physical Exam: Constitutional: No acute distress HEENT: EOMI, PERRLA, puffy eyelids Respiratory system: Decreased air entry bilaterally, no wheeze, positive rhonchi positive crackles bilateral lower lobes more on the right side CVS: S1-S2 positive, no murmurs or gallops, distant heart sounds, irregular Abdomen: Soft, nontender, nondistended, positive bowel sounds x4 Extremities: +2 pulses bilaterally radialis/ dorsalis pedis, no cyanosis, +3 pitting edema bilateral lower extremity Neuro: Awake alert oriented x3 Psych: Normal mood and affect G/U: No Drew Skin: no rashes, warm and dry Lymphatic: no cervical or axillary lymphadenopathy Results & Data Results & Data ([facility]) Vital Signs (Past 12 Hours) Vital Signs Temp Pulse Pulse Pulse Resp BP BP 09/10/20 12:51 107 H 18 09/10/20 12:11 09/10/20 11:02 36.3 C L 103 H 101/69 09/10/20 10:00 107 H 110/62 09/10/20 09:08 122 H 16 145/72 H 09/10/20 09:02 134 H 18 79/53 L 09/10/20 09:00 126 H 20 09/10/20 08:00 36.6 C 168 H 23 09/10/20 07:18 107 H 20 09/10/20 07:17 107 H 20 09/10/20 07:01 20 133/76 09/10/20 07:00 117 H 18 09/10/20 06:00 103 H 16 156/73 H 09/10/20 05:00 106 H 16 139/95 09/10/20 04:11 36.3 C L 09/10/20 04:01 36.9 C 110 H 14 120/77 09/10/20 03:53 116 H 18 09/10/20 03:23 111 H 19 108/72 Pulse Ox 09/10/20 12:51 87 L 09/10/20 12:11 94 09/10/20 11:02 98 09/10/20 10:00 97 09/10/20 09:08 94 09/10/20 09:02 100 09/10/20 09:00 93 09/10/20 08:00 84 L 09/10/20 07:18 94 09/10/20 07:17 94 09/10/20 07:01 90 09/10/20 07:00 96 09/10/20 06:00 91 09/10/20 05:00 100 09/10/20 04:11 09/10/20 04:01 89 L 09/10/20 03:53 96 09/10/20 03:23 63 L 09/10/20 04:54 09/10/20 04:55 Intake & Output 09/08/20 09/09/20 09/10/20 09/11/20 06:59 06:59 06:59 06:59 Intake Total 50.25 / 50.25 Output Total 2600 / 2600 852 / 852 Balance -2549.75 / -2549.75 -852 / -852 Weight 90.2 kg Coding Level of Care Code 54092 Subseq Hosp Care Lvl 3 Diagnoses Acute on chronic respiratory failure with hypoxia and hypercapnia J96.21; J96.22 Atrial fibrillation with rapid ventricular response I48.91 Interstitial lung disease J84.9 Acute exacerbation of chronic obstructive pulmonary disease J44.1 COPD (chronic obstructive pulmonary disease) J44.9 COPD type: unspecified COPD Supratherapeutic INR R79.1 Diabetes type I E10.9 (1) COPD (chronic obstructive pulmonary disease) COPD type: unspecified COPD Qualified Code(s): J44.9 - Chronic obstructive pulmonary disease, unspecified
[2020-09-10] MEDS ORDERED: WARFARIN SOD 2 MG TAB PO ONE (16:00)
[2020-09-10] MEDS ORDERED: DIGOXIN 0.125 MG TAB PO SCH (16:00)
[2020-09-10] MEDS: HEPARIN SOD 5,000 UNIT/0.5 ML VIAL SQ SCH (17:02)
[2020-09-10] MEDS: SIMVASTATIN 20 MG TAB PO SCH (20:30)
[2020-09-10] MEDS: TAMSULOSIN HCL 0.4 MG CAP PO SCH (20:30)
[2020-09-10] MEDS ORDERED: METOPROLOL TARTRATE 1 MG/ML VIAL IV STA (23:52)
[2020-09-11] MEDS: LEVALBUTEROL 1.25MG/0.5ML NEB INH SCH ×4 (00:25→19:20)
[2020-09-11] MEDS: IPRATROPIUM BROMIDE NEB SOLN 0.02% 2.5 ML VIAL INH SCH ×5 (00:26→19:20)
[2020-09-11] MEDS ORDERED: XOPENEX/ATROVENT 1.25mg/0.5MG NEB COMBO NEB SCH (01:00)
--- NOTE | 2020-09-11 05:55 | Electrocardiogram Report ---
Test Reason : Blood Pressure : / mmHG Vent. Rate : 102 BPM Atrial Rate : 220 BPM P-R Int : 000 ms QRS Dur : 108 ms QT Int : 354 ms P-R-T Axes : 000 -60 254 degrees QTc Int : 461 ms Poor data quality, interpretation may be adversely affected Atrial fibrillation with rapid ventricular response with premature ventricular or aberrantly conducte d complexes Incomplete right bundle branch block Left anterior fascicular block Abnormal ECG When compared with ECG of 09-SEP-2020 08:36, T wave inversion less evident in Lateral leads Confirmed by Kvng Teran ([id number]) on 09/11/2020 5:55:02 AM Referred By: REFERRED SELF Confirmed By:Kvng Teran
[2020-09-11 06:11] LABS: Basophils # (auto) 0.01 K/uL (0-0.2); Basophils % (auto) 0.1 %; Hematocrit (blood only) 31.8 % (42-52); Hemoglobin 9.8 g/dL (14.0-18.0); Immature Granulocytes # (auto) 0.05 K/uL (0.00-0.02); Immature Granulocytes % (auto) 0.4 %; Lymphocytes # (auto) 0.92 K/uL (1.2-3.4); Lymphocytes % (auto) 7.6 %; Mean Corpuscular Hemoglobin 26.5 pg (25-34); Mean Corpuscular Hgb Conc 30.8 g/dL (32-36); Mean Corpuscular Volume 85.9 fL (80-100); Mean Platelet Volume 10.2 fL (7.4-10.4); Monocytes # (auto) 0.73 K/uL (0.11-0.59); Neutrophils # (auto) 10.36 K/uL (1.4-6.5); Neutrophils % (auto) 85.9 %; Platelet Count 249 K/uL (130-400); RDW Coefficient of Variation 17.6 % (11.5-14.5); RDW Standard Deviation 55.6 fL (36.4-46.3); White Blood Count 12.07 K/uL (4.8-10.8)
[2020-09-11 06:19] LABS: INR 1.4 (0.9-1.1); Prothrombin Time 13.7 Seconds (9.0-12.0)
[2020-09-11] MEDS: HEPARIN SOD 5,000 UNIT/0.5 ML VIAL SQ SCH ×2 (06:29→17:16)
[2020-09-11 06:42] LABS: BUN Creatinine Ratio 25.8 (10-20); Calcium 9.1 mg/dl (8.5-10.1); Creatinine Clr Calc Pharmacy 27.8 ml/min; Est GFR (African American) 28.6 ml/min; Est GFR (Non-African American) 24.7 ml/min; Magnesium 2.2 mg/dl (1.8-2.4); Phosphorus 5.1 mg/dl (2.5-4.9); Potassium 4.5 mmol/L (3.5-5.1)
[2020-09-11] MEDS: ACETYLCYSTEINE 10% INHAL SOLN 4 ML **DISPENSED BY RESP. INH SCH ×2 (07:24→19:20)
[2020-09-11] MEDS: metOLazone 5 MG TABLET PO SCH (08:20)
[2020-09-11] MEDS: METOPROLOL TARTRATE 25 MG TAB PO SCH ×2 (08:20→20:34)
[2020-09-11] MEDS: hydrOXYzine HCl 10 MG TAB PO PRN (08:20)
[2020-09-11] MEDS: UMECLIDINIUM/VILANTEROL 62.5/25MCG 7 PUFFS/INHALER INH SCH (08:20)
[2020-09-11] MEDS: INSULIN GLARGINE SOLOSTAR 100 UNITS/ML 3 ML PEN SC SCH (08:23)
[2020-09-11] MEDS: INSULIN ASPART 100 UNITS/ML 3 ML PEN SC SCH ×4 (08:24→20:31)
[2020-09-11] MEDS: FAMOTIDINE 20 MG in SYRINGE 3 ML IV SCH (08:28)
[2020-09-11] MEDS: predniSONE 20 MG TAB PO SCH (08:38)
--- NOTE | 2020-09-11 10:10 | Pharmacy Report ---
Pharmacy Glycemic Short Note 2 - Date of Service September 11, 2020 - Glycemic Short BSG Results (Last 24 hours): 09/10/20 09/10/20 09/10/20 11:51 17:05 20:31 Glucose POC Glucose 175 H 134 H 137 H 09/10/20 09/11/20 09/11/20 21:27 05:20 07:43 Glucose 283 H POC Glucose 113 H 376 H* 09/11/20 07:44 Glucose POC Glucose 343 H* OUTPATIENT ANTIDIABETIC REGIMEN: * Lantus 20-22 units Qam, Novolog 4-6 units TID * A1c 9.2% 09/10/20 ASSESSMENT: 09/11 * Pt has received 41 units of insulin over the past 24hrs * 17 units of basal with Lantus * 24 units of bolus with NovoLog * BSGs [phone] mg/dl * AM fasting BSG significantly elevated this AM at 343 mg/dl. Pt is receiving daily steroids but this does not account for significant rise in BSG from HS to AM. Will add NPH at bedtime to combat elevated fasting glucose * Steroids tapered from Solumedrol 40mg IV daily in AM to prednisone 40mg PO in AM. This should yield an improvement in BSGs but will continue aggressive CF/CR until severe hyperglycemia this AM resolves. 09/10 * BSGs improved over last 24 hrs * Fasting BSG 173 with 17 units basal on board - will increase dose per scale * Patient's diet has been advanced. He remains on steroids (Solu-medrol 40mg IV Q AM) - will increase Novolog prandial doses w/ meals (reviewed prior admission data showing substantial increase in Novolog requirements w/ steroid provision) * Will use lower Novolog doses at HS given h/o falling BSGs overnight 09/09 * 80 year old admitted with possible pneumonia. Started on steroids. Pharmacy consulted to help with glycemic management. Patient is a type 1 DM. * Received solm 40 iv in ER, BSGs in 300s - plan to start novolog now, verifying with RN if patient took home basal insulin. * May give IV bolus if recheck elevated. Patient NPO status currently. Will do Q4 hr checks to help better control BSGs PLAN FOR INPATIENT GLYCEMIC CONTROL: * Hold outpatient oral diabetes medications * Basal insulin * Lantus SQ Q AM per scale: 0 units if BSG less than 90, 19 units if BSG 90- 200, 22 units if BSG above 200 * ADD NPH 10 units SQ at bedtime * Bolus insulin * NovoLog per scale ACHS or Q6hrs while NPO * Goal Range: Low 110 mg/dL - High 140 mg/dL * Correction Factor: 15 mg/dL/unit AC, however use 25mg/dL/unit at HS * Nutritional / Prandial insulin per carb ratio of 1 unit per 6 grams CHO consumed w/ meals, use 1 unit per 10grams CHO at HS PLAN FOR DISCHARGE: * to be determined
--- NOTE | 2020-09-11 10:34 | Hospitalist Progress Note ---
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 Johansen in the office yesterday, and oxygen requirement was uptitrated as above. Instructed to continue 10mg prednisone daily and utilize all airway clearance maneuvers and inhalers Per Dr. Johansen, prognosis is poor Has been getting nebulized bronchodilator and also intravenous Solu-Medrol Doubt any pneumonia Started on intravenous cefepime which will be continued for 24 hours and then changed to oral doxycycline We will continue with the BiPAP nightly and as needed for increasing shortness of breath Clinically much better and is back to his baseline We will change antibiotic to oral doxycycline PT and OT evaluation to increase mobility We will continue oral prednisone for now (2) Acute on chronic diastolic heart failure: Appears clinically volume overloaded Increasing shortness of breath with increasing leg edema and chest x-ray evidence of pulmonary edema Given 60mg IV Lasix Monitor volume status closely, strict I&Os, daily weights We will continue current dose of intravenous Lasix and metolazone Reasonable diuresis with symptomatic improvement Received adequate doses of intravenous Lasix and will hold for now as the creatinine is going up We will restart his usual doses of outpatient torsemide from tomorrow (3) 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: (4) Interstitial lung disease: (5) COPD (chronic obstructive pulmonary disease): (6) Asbestos exposure: (7) Atrial fibrillation with rapid ventricular response: HR currently 129 contributed by use of bronchodilators Home medications include digoxin, Lopressor IV Lopressor 5mg IV for HR > 110 (8) Supratherapeutic INR: custodial anticoagulation with Coumadin but INR currently 7.5 so HOLDING Received vitamin K INR has been improving-1.7 as of 09/10/2020 Will restart Coumadin INR remains subtherapeutic at 1.4 today Will give 5 mg Coumadin this afternoon (9) Diabetes type I: (10) HTN (hypertension): (11) Tachycardia-bradycardia syndrome: (12) CKD (chronic kidney disease) stage 3, GFR 30-59 ml/min: This is an 80yo M with a PMH of tachybrady syndrome status post pacemaker, chronic Atrial fibrillation anticoagulated on Coumadin, COPD with interstitial lung disease & asbestos exposure with tracheobronchomalacia with chronic respiratory failure on 2 to 3 L oxygen, T1DM, diastolic CHF, HTN, HLD, CKD stage III baseline creatinine 1.7 who presents to ED secondary to progressive difficulty breathing overnight. Supratherapeutic INR INR 7.5 - no evidence of acute bleeding. Hgb at baseline ~ 9.9 Hold Coumadin, trend daily INR Type 1 diabetes Initial BSG 360, beta hydroxybutyric acid 4.4, no ketones in urine Given 10 units insulin regular in ED Hypertension BP 102/59 Continue Lopressor with hold parameters Tachybradycardia syndrome Status post pacemaker placement CKD III Kidney function at baseline Creatinine went up to 2.36 from 1.40 We will hold off any more intravenous Lasix Monitor PRP DVT Ppx: Coumadin held while supratherapeutic Code status: FULL CODE per lengthy discussion with patient and later over phone PCP: Mell Dispo: Admitted to ICU. Discharge planning ordered. Admission and Anticipated Discharge Date Admission Date: September 09, 2020 Subjective 09/10/2020 The patient was seen and examined in ICU He was admitted with acute shortness of breath yesterday with history of significant lung fibrosis He has been feeling a lot better since admission with profuse diuresis Denies any significant symptoms No fever and/or chills and no pain 09/11/2020 The patient was seen and examined in medical telemetry unit He has been feeling much better and seems to be at his baseline Has generalized weakness but denies any other significant symptoms His blood sugar is noted to be high likely secondary to use of steroid Review of Systems Review of Systems: All systems reviewed and are unremarkable except as noted below Respiratory: + cough and + dyspnea (Minimal dyspnea at rest) Physical Exam Physical Exam: Sitting on a chair without any acute distress Constitutional: well developed, well nourished, + ill appearing and + obese Eyes: PERRL, conjunctivae normal, anicteric sclerae ENMT: external ear and nose normal, oropharynx normal Neck: trachea midline, no thyromegaly Respiratory: + respiratory distress (Mild to moderate) Auscultation: + diminished lung sounds and + crackles (Bibasilar crackles) Cardiovascular: Rate/Rhythm: regular rate and regular rhythm Heart Sounds: no murmur Extremities: + edema (1+ edema bilaterally) Gastrointestinal (Abdomen): Inspection/Auscultation: normal bowel sounds; abdomen not distended Percussion/Palpation: abdomen soft; abdomen nontender Musculoskeletal: No acute arthritis in any joint Skin: Has generalized bruising especially in the extremities Neurologic: Alert, awake and oriented x3. He is generally weak and lethargic Psychiatric: A+Ox3, euthymic affect Lymphatic: no cervical or axillary lymphadenopathy Results & Data Results & Data ([facility]) Vital Signs (Past 12 Hours) Vital Signs Temp Pulse Pulse Pulse Pulse Resp BP 09/11/20 08:48 36.4 C L 82 18 09/11/20 07:24 119 H 20 09/11/20 07:08 126 H 09/11/20 04:24 09/11/20 04:00 36.1 C L 118 H 20 09/11/20 03:08 121 H 23 09/11/20 01:34 126 H 09/11/20 00:26 129 H 129 H 24 09/11/20 00:06 130 H 106/63 09/11/20 00:05 123 H 18 09/10/20 23:00 36.4 C L 119 H 20 BP Pulse Ox 09/11/20 08:48 110/68 98 09/11/20 07:24 94 09/11/20 07:08 09/11/20 04:24 103/64 09/11/20 04:00 117/75 99 09/11/20 03:08 92 09/11/20 01:34 09/11/20 00:26 95 09/11/20 00:06 09/11/20 00:05 106/63 86 L 09/10/20 23:00 111/74 99 Laboratory Results Short CBC 09/11/20 Range/Units 05:20 WBC 12.07 H (4.8-10.8) K/uL Hgb 9.8 L (14.0-18.0) g/dL Hct 31.8 L (42-52) % Plt Count 249 (130-400) K/uL BMP 09/11/20 05:20 Sodium 138 Potassium 4.5 Chloride 98 Carbon Dioxide 33 H BUN 61 H Creatinine 2.36 H D Glucose 283 H Calcium 9.1 Medications Administered Current Inpatient Medications Acetaminophen (Acetaminophen 325 Mg Tab) 650 mg PO Q4H PRN PRN Reason: Pain or Fever Stop: 10/09/20 13:51 Acetylcysteine (Acetylcysteine 10% Inhal Soln 4 Ml Dispensed By Resp.) 3 ml INH BIDR [facility] Stop: 10/09/20 18:59 Last Admin: 09/11/20 07:24 Dose: 3 ml Documented by: Dextrose (Dextrose 50% 50 Ml Syringe) 25 - 50 ml IV UD PRN; Protocol PRN Reason: Hypoglycemia Protocol Stop: 10/09/20 14:14 Digoxin (Digoxin 0.125 Mg Tab) 0.125 mg PO [id number] [facility] Stop: 10/10/20 15:59 Last Admin: 09/10/20 15:52 Dose: 0.125 mg Documented by: Glucagon (Glucagon For Inj 1 Mg Vial) 1 mg IM UD PRN; Protocol PRN Reason: Hypoglycemia Protocol Stop: 10/09/20 14:14 Glucose (Glucose 40% Gel 15 Gm Tube) 15 - 30 gm PO UD PRN; Protocol PRN Reason: Hypoglycemia Protocol Stop: 10/09/20 14:14 Glucose (Glucose 10 Tabs/Tube) 4 - 8 tabs PO UD PRN; Protocol PRN Reason: Hypoglycemia Protocol Stop: 10/09/20 14:14 Heparin Sodium (Porcine) (Heparin Sod 5,000 Unit/0.5 Ml Vial) 5,000 units SQ Q12H [facility] Stop: 10/10/20 17:59 Last Admin: 09/11/20 06:29 Dose: 5,000 units Documented by: Hydroxyzine HCl (Hydroxyzine Hcl 10 Mg Tab) 10 mg PO Q8H PRN PRN Reason: Anxiety Stop: 10/10/20 13:20 Last Admin: 09/11/20 08:20 Dose: 10 mg Documented by: Famotidine 20 mg/ Syringe 5 mls @ 2.5 mls/min IV DAILY [facility] Stop: 10/09/20 15:59 Last Admin: 09/11/20 08:28 Dose: 2.5 mls/min Documented by: Cefepime HCl 2,000 mg/ Syringe 20 mls @ 5 mls/min IV Q24H [facility]; Protocol Stop: 09/17/20 00:00 Insulin Aspart (Insulin Aspart 100 Units/Ml 3 Ml Pen) 0 units SC AC [facility] Stop: 10/10/20 16:29 Last Admin: 09/11/20 08:24 Dose: 24 units Documented by: Insulin Aspart (Insulin Aspart 100 Units/Ml 3 Ml Pen) 0 units SC [facility] Stop: 10/10/20 20:59 Last Admin: 09/10/20 20:31 Dose: Not Given Documented by: Insulin Glargine (Insulin Glargine Solostar 100 Units/Ml 3 Ml Pen) 0 units SC [facility]; Protocol Stop: 10/10/20 08:59 Last Admin: 09/11/20 08:23 Dose: 22 units Documented by: Insulin Human NPH (Insulin Human Nph) 10 units SC [facility] Stop: 10/11/20 20:59 Ipratropium [place] (Ipratropium [place] Neb Soln 0.02% 2.5 Ml Vial) 0.5 mg INH Q6R [facility] Stop: 10/10/20 00:59 Last Admin: 09/11/20 07:23 Dose: 0.5 mg Documented by: Levalbuterol HCl (Levalbuterol 1.25mg/0.5ml Neb) 1.25 mg INH Q6R [facility] Stop: 10/11/20 00:59 Last Admin: 09/11/20 07:24 Dose: 1.25 mg Documented by: Metolazone (Metolazone 5 Mg Tablet) 5 mg PO QAM [facility] Stop: 10/10/20 08:59 Last Admin: 09/11/20 08:20 Dose: 5 mg Documented by: Metoprolol Tartrate (Metoprolol Tartrate 25 Mg Tab) 25 mg PO PM [facility] Stop: 10/09/20 20:59 Last Admin: 09/10/20 20:30 Dose: 25 mg Documented by: Metoprolol Tartrate (Metoprolol Tartrate 25 Mg Tab) 25 mg PO QAM [facility] Stop: 10/09/20 13:51 Last Admin: 09/11/20 08:20 Dose: 25 mg Documented by: Miscellaneous (Carbohydrates For Hypoglycemia ) 15 - 30 gm PO UD PRN PRN Reason: Hypoglycemia Treatment Stop: 10/09/20 14:14 Miscellaneous (Pending Order: Dc Heparin Sq When Inr Is 2 Or Greater) 1 ea N/A DAILY@1000 [facility] Stop: 10/11/20 09:59 Last Admin: 09/11/20 10:11 Dose: 1 ea Documented by: Miscellaneous Information (Cefepime Consult Active) 1 ea N/A UD PRN PRN Reason: Consult Stop: 10/09/20 13:51 Miscellaneous Information (Pharmacy Glycemic Mgmt Consult) 1 ea N/A UD PRN PRN Reason: Consult Stop: 10/09/20 14:11 Nitroglycerin (Nitroglycerin Sl 0.4 Mg/Tab Tab) 0.4 mg SL UD PRN PRN Reason: Chest Pain Stop: 10/09/20 13:51 Ondansetron HCl (Ondansetron Inj 2 Mg/Ml 2 Ml Vial) 4 mg IV Q6H PRN PRN Reason: Nausea Stop: 10/09/20 13:51 Polyethylene Glycol (Polyethylene (Miralax) 17 Gm Pack) 17 gm PO DAILY PRN PRN Reason: Constipation Stop: 10/09/20 13:51 Prednisone (Prednisone 20 Mg Tab) 40 mg PO DAILY [facility] Stop: 09/14/20 08:59 Last Admin: 09/11/20 08:38 Dose: 40 mg Documented by: Simvastatin (Simvastatin 20 Mg Tab) 20 mg PO QPM [facility] Stop: 10/09/20 20:59 Last Admin: 09/10/20 20:30 Dose: 20 mg Documented by: Tamsulosin HCl (Tamsulosin Hcl 0.4 Mg Cap) 0.4 mg PO HS [facility] Stop: 10/09/20 20:59 Last Admin: 09/10/20 20:30 Dose: 0.4 mg Documented by: Umeclidinium/Vilanterol (Umeclidinium/Vilanterol 62.5/25mcg 7 Puffs/Inhaler) 1 puffs INH QAM [facility] Stop: 10/10/20 08:59 Last Admin: 09/11/20 08:20 Dose: 1 puffs Documented by: Warfarin Sodium (Warfarin Sod 2.5 Mg Tab) 2.5 mg PO [id number] [facility] Stop: 10/13/20 15:59 Warfarin Sodium (Warfarin Sod 1.25 Mg Tab) 1.25 mg PO [id number] [facility] Stop: 10/11/20 15:59 (1) COPD (chronic obstructive pulmonary disease) COPD type: unspecified COPD Qualified Code(s): J44.9 - Chronic obstructive pulmonary disease, unspecified
[2020-09-11] MEDS ORDERED: INSULIN GLARGINE SOLOSTAR 100 UNITS/ML 3 ML PEN SC ONE (12:15)
[2020-09-11] MEDS ORDERED: INSULIN HUMAN REGULAR PER UNIT 9 UNITS in SYRINGE 8.91 ML IV ONE (12:15)
--- NOTE | 2020-09-11 13:27 | Pulmonology Progress Note ---
Date of Service September 11, 2020 Assessment & Plan (1) Acute on chronic respiratory failure with hypoxia and hypercapnia: ABG 09/09/2020: 7.42/48/90 on 50% Chest x-ray 09/26/2020 personally reviewed: Portable film, hyperinflated from, patient has chronic changes appreciated in the bilateral lower lobes more on the right side. Blunted bilateral costophrenic angles. -- Acute on chronic hypoxic hypercapnic respiratory failure Multifactorial I think patient's underlying diastolic CHF is playing a role Patient is also in A. 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 Johansen as an outpatient --History of pleural plaques Likely from asbestos exposure Plan: Patient respiratory status seems to be back to his baseline We recommend continuing with diuretics to keep the patient negative balance Continue with aggressive chest PT. BiPAP nightly and as needed shortness of breath Patient already has AVAPS machine at home. Overall prognosis of the patient is poor given the significant lung disease that he has. Recommend outpatient follow-up with Dr. Johansen. Please note the above document was generated using voice recognition software. It may contain grammatical, syntax or spelling errors.Any formal questions or concerns about the content, text or information contained within the body of this dictation should be directly addressed to the provider for clarification. (2) Atrial fibrillation with rapid ventricular response: (3) Interstitial lung disease: (4) Acute exacerbation of chronic obstructive pulmonary disease: (5) COPD (chronic obstructive pulmonary disease): COPD type: unspecified COPD Qualified Code(s): J44.9 - Chronic obstructive pulmonary disease, unspecified (6) Supratherapeutic INR: (7) Diabetes type I: Admission and Anticipated Discharge Date Admission Date: September 09, 2020 Subjective Patient seen and examined at bedside. No acute distress. Vital signs overnight. States that his breathing is significantly better compared to coming to the hospital. Denies any chest pain, no dizziness, no headache, no nausea, no vomiting. Fair appetite. Urinating well. Review of Systems Review of Systems: All systems reviewed & are unremarkable except as noted in Subjective Physical Exam Physical Exam: Constitutional: No acute distress HEENT: EOMI, PERRLA, puffy eyelids Respiratory system: Decreased air entry bilaterally, no wheeze, positive rhonchi positive crackles bilateral lower lobes more on the right side CVS: S1-S2 positive, no murmurs or gallops, distant heart sounds, irregular Abdomen: Soft, nontender, nondistended, positive bowel sounds x4 Extremities: +2 pulses bilaterally radialis/ dorsalis pedis, no cyanosis, +2 pitting edema bilateral lower extremity Neuro: Awake alert oriented x3 Psych: Normal mood and affect G/U: No Drew Skin: no rashes, warm and dry Lymphatic: no cervical or axillary lymphadenopathy Results & Data Results & Data ([facility]) Vital Signs (Past 12 Hours) Vital Signs Temp Pulse Pulse Pulse Pulse Pulse Resp 09/11/20 12:40 116 H 17 09/11/20 11:48 36.9 C 86 86 22 09/11/20 11:30 36.4 C L 129 H 20 09/11/20 08:48 36.4 C L 82 18 09/11/20 07:24 119 H 20 09/11/20 07:08 126 H 09/11/20 04:24 09/11/20 04:00 36.1 C L 118 H 20 09/11/20 03:08 121 H 23 09/11/20 01:34 126 H BP Pulse Ox 09/11/20 12:40 98 09/11/20 11:48 112/70 99 09/11/20 11:30 106/70 100 09/11/20 08:48 110/68 98 09/11/20 07:24 94 09/11/20 07:08 09/11/20 04:24 103/64 09/11/20 04:00 117/75 99 09/11/20 03:08 92 09/11/20 01:34 09/11/20 05:20 09/11/20 05:20 PG Care Time/CCT Total # of Minutes Spent Total Time Spent with Patient: Total time spent is greater than 50% in coordination of care (as documented) at patient's floor/unit and/or counseling patient: Coding Level of Care Code 13968 Subseq Hosp Care Lvl 3 Diagnoses Acute on chronic respiratory failure with hypoxia and hypercapnia J96.21; J96.22 Atrial fibrillation with rapid ventricular response I48.91 Interstitial lung disease J84.9 Acute exacerbation of chronic obstructive pulmonary disease J44.1 COPD (chronic obstructive pulmonary disease) J44.9 COPD type: unspecified COPD Supratherapeutic INR R79.1 Diabetes type I E10.9
[2020-09-11] MEDS ORDERED: WARFARIN SOD 1.25 MG TAB PO SCH (16:00)
[2020-09-11] MEDS ORDERED: WARFARIN SOD 5 MG TAB PO ONE (16:00)
[2020-09-11] MEDS: TAMSULOSIN HCL 0.4 MG CAP PO SCH (20:33)
[2020-09-11] MEDS: SIMVASTATIN 20 MG TAB PO SCH (20:34)
[2020-09-11] MEDS: DOXYCYCLINE HYCLATE 100 MG CAP PO SCH (20:35)
[2020-09-11] MEDS: INSULIN HUMAN NPH SC SCH (20:38)
[2020-09-12] MEDS ORDERED: CEFEPIME 2,000 MG in SYRINGE 0 ML IV SCH
[2020-09-12] MEDS: LEVALBUTEROL 1.25MG/0.5ML NEB INH SCH ×4 (00:47→19:23)
[2020-09-12] MEDS: IPRATROPIUM BROMIDE NEB SOLN 0.02% 2.5 ML VIAL INH SCH ×4 (00:47→19:23)
[2020-09-12] MEDS: HEPARIN SOD 5,000 UNIT/0.5 ML VIAL SQ SCH (05:29)
[2020-09-12 05:58] LABS: INR 2.6 (0.9-1.1); Prothrombin Time 24.2 Seconds (9.0-12.0)
[2020-09-12 06:06] LABS: BUN Creatinine Ratio 30.4 (10-20); Calcium 8.7 mg/dl (8.5-10.1); Est GFR (African American) 31.3 ml/min; Potassium 4.3 mmol/L (3.5-5.1)
[2020-09-12] MEDS: ACETYLCYSTEINE 10% INHAL SOLN 4 ML **DISPENSED BY RESP. INH SCH ×2 (07:21→19:23)
[2020-09-12] MEDS: INSULIN ASPART 100 UNITS/ML 3 ML PEN SC SCH ×4 (08:37→21:28)
[2020-09-12] MEDS: INSULIN GLARGINE SOLOSTAR 100 UNITS/ML 3 ML PEN SC SCH (08:38)
[2020-09-12] MEDS ORDERED: INSULIN HUMAN NPH SC SCH (09:00)
[2020-09-12] MEDS ORDERED: INSULIN GLARGINE SOLOSTAR 100 UNITS/ML 3 ML PEN SC SCH (09:00)
[2020-09-12] MEDS: DOXYCYCLINE HYCLATE 100 MG CAP PO SCH ×2 (09:10→20:15)
[2020-09-12] MEDS: metOLazone 5 MG TABLET PO SCH (09:12)
[2020-09-12] MEDS: METOPROLOL TARTRATE 25 MG TAB PO SCH ×2 (09:14→20:15)
[2020-09-12] MEDS: predniSONE 20 MG TAB PO SCH (09:19)
[2020-09-12] MEDS: UMECLIDINIUM/VILANTEROL 62.5/25MCG 7 PUFFS/INHALER INH SCH (09:21)
[2020-09-12] MEDS: TORSEMIDE 10 MG TAB PO SCH (09:21)
[2020-09-12] MEDS: FAMOTIDINE 20 MG in SYRINGE 3 ML IV SCH (09:22)
--- NOTE | 2020-09-12 11:16 | Pharmacy Report ---
Pharmacy Glycemic Short Note 2 - Date of Service September 12, 2020 - Glycemic Short BSG Results (Last 24 hours): 09/11/20 09/11/20 09/11/20 11:58 15:01 15:44 Glucose POC Glucose 206 H 50 L* 73 09/11/20 09/11/20 09/12/20 16:18 20:17 05:09 Glucose 208 H POC Glucose 108 H 102 H 09/12/20 07:50 Glucose POC Glucose 264 H OUTPATIENT ANTIDIABETIC REGIMEN: * Lantus 20-22 units Qam, Novolog 4-6 units TID * A1c 9.2% 09/10/20 ASSESSMENT: 09/12 * Pt has received 91 units of insulin over the past 24hrs * 30 units of basal with Lantus + 10 units of basal with NPH * 42 units of bolus with NovoLog * 9 units of IV Regular insulin for severe hyperglycemia * AM fasting BSG remains elevated - patient has HS snack which is not being covered. Will update MAR to ensure this snack is covered * BSGs elevated secondary to prednisone. Have been titrating up outpatient Lantus dosing to help cover steroid hyperglycemia but concern for hypo once steroids are tapered and too much long acting insulin on board. Will reduce Lantus back towards outpatient dosing and add NPH dose to be given with prednisone. This will be easily titrated based on steroid dosing. * NPH insulin is used to counteract the hyperglycemic effect of prednisone. The rationale for this approach is that the pharmacodynamics profile of NPH, with a peak effect of 4-8hrs and duration of action of 12-16hrs, mirrors the pharmacodynamics of prednisone. NPH should be dosed at the same time that prednisone is given * The dose of NPH given is dependent on the steroid dose given. NPH dosing above is given in addition to patients basal insulin needs. Typically, patients will also need rapid-acting insulin with meals 09/11 * Pt has received 41 units of insulin over the past 24hrs * 17 units of basal with Lantus * 24 units of bolus with NovoLog * BSGs [phone] mg/dl * AM fasting BSG significantly elevated this AM at 343 mg/dl. Pt is receiving daily steroids but this does not account for significant rise in BSG from HS to AM. Will add NPH at bedtime to combat elevated fasting glucose * Steroids tapered from Solumedrol 40mg IV daily in AM to prednisone 40mg PO in AM. This should yield an improvement in BSGs but will continue aggressive CF/CR until severe hyperglycemia this AM resolves. 09/10 * BSGs improved over last 24 hrs * Fasting BSG 173 with 17 units basal on board - will increase dose per scale * Patient's diet has been advanced. He remains on steroids (Solu-medrol 40mg IV Q AM) - will increase Novolog prandial doses w/ meals (reviewed prior admission data showing substantial increase in Novolog requirements w/ steroid provision) * Will use lower Novolog doses at HS given h/o falling BSGs overnight 09/09 * 80 year old admitted with possible pneumonia. Started on steroids. Pharmacy consulted to help with glycemic management. Patient is a type 1 DM. * Received solm 40 iv in ER, BSGs in 300s - plan to start novolog now, verifying with RN if patient took home basal insulin. * May give IV bolus if recheck elevated. Patient NPO status currently. Will do Q4 hr checks to help better control BSGs PLAN FOR INPATIENT GLYCEMIC CONTROL: * Hold outpatient oral diabetes medications * Basal insulin * Lantus 25 units SQ AM * NPH 10 units SQ AM to be given with prednisone * NPH 10 units SQ at bedtime- ?sheron phenomenon vs Lantus not lasting 24hrs for patient. * Bolus insulin * NovoLog per scale ACHS or Q6hrs while NPO * Goal Range: Low 110 mg/dL - High 140 mg/dL * Correction Factor: 15 mg/dL/unit AC, however use 25mg/dL/unit at HS * Nutritional / Prandial insulin per carb ratio of 1 unit per 5 grams CHO consumed w/ meals, use 1 unit per 10grams CHO at HS PLAN FOR DISCHARGE: * to be determined
--- NOTE | 2020-09-12 11:44 | Hospitalist Progress Note ---
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 Johansen in the office yesterday, and oxygen requirement was uptitrated as above. Instructed to continue 10mg prednisone daily and utilize all airway clearance maneuvers and inhalers Per Dr. Johansen, prognosis is poor Has been getting nebulized bronchodilator and also intravenous Solu-Medrol Doubt any pneumonia Started on intravenous cefepime which will be continued for 24 hours and then changed to oral doxycycline We will continue with the BiPAP nightly and as needed for increasing shortness of breath Clinically much better and is back to his baseline We will change antibiotic to oral doxycycline PT and OT evaluation to increase mobility We will continue oral prednisone for now He is back to his home dose of torsemide (2) Acute on chronic diastolic heart failure: Appears clinically volume overloaded Increasing shortness of breath with increasing leg edema and chest x-ray evidence of pulmonary edema Given 60mg IV Lasix Monitor volume status closely, strict I&Os, daily weights We will continue current dose of intravenous Lasix and metolazone Reasonable diuresis with symptomatic improvement Received adequate doses of intravenous Lasix and will hold for now as the creatinine is going up No symptoms of acute fluid overload (3) 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: (4) Interstitial lung disease: (5) COPD (chronic obstructive pulmonary disease): (6) Asbestos exposure: (7) Atrial fibrillation with rapid ventricular response: HR currently 129 contributed by use of bronchodilators Home medications include digoxin, Lopressor IV Lopressor 5mg IV for HR > 110 (8) Supratherapeutic INR: roasterman anticoagulation with Coumadin but INR currently 7.5 so HOLDING Received vitamin K INR has been improving-1.7 as of 09/10/2020 Will restart Coumadin INR remains subtherapeutic at 1.4 today Will give 5 mg Coumadin this afternoon INR is 2.6 on 09/12/2020-we will continue his usual home dose of Coumadin (9) Diabetes type I: (10) HTN (hypertension): (11) Tachycardia-bradycardia syndrome: (12) CKD (chronic kidney disease) stage 3, GFR 30-59 ml/min: This is an 80yo M with a PMH of tachybrady syndrome status post pacemaker, chronic Atrial fibrillation anticoagulated on Coumadin, COPD with interstitial lung disease & asbestos exposure with tracheobronchomalacia with chronic respiratory failure on 2 to 3 L oxygen, T1DM, diastolic CHF, HTN, HLD, CKD stage III baseline creatinine 1.7 who presents to ED secondary to progressive difficulty breathing overnight. Supratherapeutic INR INR 7.5 - no evidence of acute bleeding. Hgb at baseline ~ 9.9 Hold Coumadin, trend daily INR Type 1 diabetes Initial BSG 360, beta hydroxybutyric acid 4.4, no ketones in urine Given 10 units insulin regular in ED Hypertension BP 102/59 Continue Lopressor with hold parameters Tachybradycardia syndrome Status post pacemaker placement CKD III Kidney function at baseline Creatinine went up to 2.36 from 1.40 We will hold off any more intravenous Lasix Monitor PRP-creatinine is slightly better and will not push any more intravenous Lasix DVT Ppx: Coumadin held while supratherapeutic Code status: FULL CODE per lengthy discussion with patient and later over phone PCP: Mell Dispo: Admitted to ICU. Discharge planning ordered. Admission and Anticipated Discharge Date Admission Date: September 09, 2020 Subjective 09/10/2020 The patient was seen and examined in ICU He was admitted with acute shortness of breath yesterday with history of significant lung fibrosis He has been feeling a lot better since admission with profuse diuresis Denies any significant symptoms No fever and/or chills and no pain 09/11/2020 The patient was seen and examined in medical telemetry unit He has been feeling much better and seems to be at his baseline Has generalized weakness but denies any other significant symptoms His blood sugar is noted to be high likely secondary to use of steroid 09/12/2020 The patient was seen and examined in medical telemetry unit He has been feeling much better and is back to his baseline Denies any significant symptoms Most likely be discharged tomorrow Review of Systems Review of Systems: All systems reviewed and are unremarkable except as noted below Respiratory: + cough and + dyspnea (Minimal dyspnea at rest) Physical Exam Physical Exam: Sitting on a chair without any acute distress Constitutional: well developed, well nourished, + ill appearing and + obese Eyes: PERRL, conjunctivae normal, anicteric sclerae ENMT: external ear and nose normal, oropharynx normal Neck: trachea midline, no thyromegaly Respiratory: + respiratory distress (Mild to moderate) Auscultation: + diminished lung sounds and + crackles (Bibasilar crackles) Cardiovascular: Rate/Rhythm: regular rate and regular rhythm Heart Sounds: no murmur Extremities: + edema (1+ edema bilaterally) Gastrointestinal (Abdomen): Inspection/Auscultation: normal bowel sounds; abdomen not distended Percussion/Palpation: abdomen soft; abdomen nontender Musculoskeletal: No acute arthritis in any joint Neurologic: Alert, awake and oriented x3. He is generally weak but does not have any focal neurological deficit Psychiatric: A+Ox3, euthymic affect Lymphatic: no cervical or axillary lymphadenopathy Results & Data Results & Data ([facility]) Vital Signs (Past 12 Hours) Vital Signs Temp Pulse Pulse Pulse Resp BP Pulse Ox 09/12/20 09:17 72 09/12/20 07:42 36.5 C 105 H 22 131/88 97 09/12/20 07:22 117 H 20 96 09/12/20 06:57 119 H 09/12/20 04:27 122 H 09/12/20 03:35 36.4 C L 129 H 18 108/60 95 09/12/20 03:26 108 H 18 97 09/12/20 00:50 116 H 118 H 20 91 Laboratory Results [facility] 09/12/20 05:09 Sodium 137 Potassium 4.3 Chloride 97 L Carbon Dioxide 34 H BUN 67 H Creatinine 2.19 H Glucose 208 H Calcium 8.7 Medications Administered Current Inpatient Medications Acetaminophen (Acetaminophen 325 Mg Tab) 650 mg PO Q4H PRN PRN Reason: Pain or Fever Stop: 10/09/20 13:51 Acetylcysteine (Acetylcysteine 10% Inhal Soln 4 Ml Dispensed By Resp.) 3 ml INH BIDR [facility] Stop: 10/09/20 18:59 Last Admin: 09/12/20 07:21 Dose: 3 ml Documented by: Dextrose (Dextrose 50% 50 Ml Syringe) 25 - 50 ml IV UD PRN; Protocol PRN Reason: Hypoglycemia Protocol Stop: 10/09/20 14:14 Digoxin (Digoxin 0.125 Mg Tab) 0.125 mg PO [id number] [facility] Stop: 10/10/20 15:59 Last Admin: 09/10/20 15:52 Dose: 0.125 mg Documented by: Doxycycline Hyclate (Doxycycline Hyclate 100 Mg Cap) 100 mg PO BID [facility] Stop: 09/18/20 20:59 Last Admin: 09/12/20 09:10 Dose: 100 mg Documented by: Glucagon (Glucagon For Inj 1 Mg Vial) 1 mg IM UD PRN; Protocol PRN Reason: Hypoglycemia Protocol Stop: 10/09/20 14:14 Glucose (Glucose 40% Gel 15 Gm Tube) 15 - 30 gm PO UD PRN; Protocol PRN Reason: Hypoglycemia Protocol Stop: 10/09/20 14:14 Glucose (Glucose 10 Tabs/Tube) 4 - 8 tabs PO UD PRN; Protocol PRN Reason: Hypoglycemia Protocol Stop: 10/09/20 14:14 Hydroxyzine HCl (Hydroxyzine Hcl 10 Mg Tab) 10 mg PO Q8H PRN PRN Reason: Anxiety Stop: 10/10/20 13:20 Last Admin: 09/11/20 08:20 Dose: 10 mg Documented by: Famotidine 20 mg/ Syringe 5 mls @ 2.5 mls/min IV DAILY [facility] [place] Stop: 10/09/20 15:59 Last Admin: 09/12/20 09:22 Dose: 2.5 mls/min Documented by: Insulin Aspart (Insulin Aspart 100 Units/Ml 3 Ml Pen) 0 units SC AC [facility] Stop: 10/10/20 16:29 Last Admin: 09/12/20 08:37 Dose: 21 units Documented by: Insulin Aspart (Insulin Aspart 100 Units/Ml 3 Ml Pen) 0 units SC [facility] Stop: 10/10/20 20:59 Last Admin: 09/11/20 20:31 Dose: Not Given Documented by: Insulin Glargine (Insulin Glargine Solostar 100 Units/Ml 3 Ml Pen) 25 units SC [facility] Stop: 10/12/20 08:59 Last Admin: 09/12/20 08:38 Dose: 25 units Documented by: Insulin Human NPH (Insulin Human Nph) 10 units SC [facility] Stop: 10/11/20 20:59 Last Admin: 09/11/20 20:38 Dose: 10 units Documented by: Insulin Human NPH (Insulin Human Nph) 10 units SC DAILY [facility]; Protocol Stop: 10/12/20 08:59 Last Admin: 09/12/20 08:38 Dose: 10 units Documented by: Ipratropium Cisco (Ipratropium Cisco Neb Soln 0.02% 2.5 Ml Vial) 0.5 mg INH Q6R [facility] Stop: 10/10/20 00:59 Last Admin: 09/12/20 07:21 Dose: 0.5 mg Documented by: Levalbuterol HCl (Levalbuterol 1.25mg/0.5ml Neb) 1.25 mg INH Q6R [facility] Stop: 10/11/20 00:59 Last Admin: 09/12/20 07:21 Dose: 1.25 mg Documented by: Metolazone (Metolazone 5 Mg Tablet) 5 mg PO QAM [facility] Stop: 10/10/20 08:59 Last Admin: 09/12/20 09:12 Dose: 5 mg Documented by: Metoprolol Tartrate (Metoprolol Tartrate 25 Mg Tab) 25 mg PO PM [facility] Stop: 10/09/20 20:59 Last Admin: 09/11/20 20:34 Dose: 25 mg Documented by: Metoprolol Tartrate (Metoprolol Tartrate 25 Mg Tab) 25 mg PO QAM [facility] Stop: 10/09/20 13:51 Last Admin: 09/12/20 09:14 Dose: 25 mg Documented by: Miscellaneous (Carbohydrates For Hypoglycemia ) 15 - 30 gm PO UD PRN PRN Reason: Hypoglycemia Treatment Stop: 10/09/20 14:14 Miscellaneous Information (Pharmacy Glycemic Mgmt Consult) 1 ea N/A UD PRN PRN Reason: Consult Stop: 10/09/20 14:11 Nitroglycerin (Nitroglycerin Sl 0.4 Mg/Tab Tab) 0.4 mg SL UD PRN PRN Reason: Chest Pain Stop: 10/09/20 13:51 Ondansetron HCl (Ondansetron Inj 2 Mg/Ml 2 Ml Vial) 4 mg IV Q6H PRN PRN Reason: Nausea Stop: 10/09/20 13:51 Polyethylene Glycol (Polyethylene (Miralax) 17 Gm Pack) 17 gm PO DAILY PRN PRN Reason: Constipation Stop: 10/09/20 13:51 Prednisone (Prednisone 20 Mg Tab) 40 mg PO DAILY [facility] Stop: 09/14/20 08:59 Last Admin: 09/12/20 09:19 Dose: 40 mg Documented by: Simvastatin (Simvastatin 20 Mg Tab) 20 mg PO QPM [facility] Stop: 10/09/20 20:59 Last Admin: 09/11/20 20:34 Dose: 20 mg Documented by: Tamsulosin HCl (Tamsulosin Hcl 0.4 Mg Cap) 0.4 mg PO [facility] Stop: 10/09/20 20:59 Last Admin: 09/11/20 20:33 Dose: 0.4 mg Documented by: Torsemide ([facility]semide 10 Mg Tab) [facility] Stop: 10/12/20 08:59 Last Admin: 09/12/20 09:21 Dose: 10 mg Documented by: Umeclidinium/Vilanterol (Umeclidinium/Vilanterol 62.5/25mcg 7 Puffs/Inhaler) 1 puffs [facility]H [facility] Stop: 10/10/20 08:59 Last Admin: 09/12/20 09:21 Dose: 1 puffs Documented by: Warfarin Sodium (Warfarin Sod 2.5 Mg Tab) 2.5 mg PO [id number]@1600 [facility] Stop: 10/13/20 15:59 Warfarin Sodium (Warfarin Sod 1.25 Mg Tab) 1.25 mg PO [id number] [facility] Stop: 10/11/20 15:59 (1) COPD (chronic obstructive pulmonary disease) COPD type: unspecified COPD Qualified Code(s): J44.9 - Chronic obstructive pulmonary disease, unspecified
--- NOTE | 2020-09-12 17:12 | Palliative Care Consultation ---
Date of Consultation September 12, 2020 Assessment & Plan (1) Palliative care encounter: This is an 80 year old male who presented to the [facility] from home with SOB x [address] Johansen at home and uses a Trilogy that was started last week. He has a significant contributing PMH that includes: tracheobroncheomalacia, tachy/macy syndrome s/p pace maker, atrial fibrillation on Coumadin, COPD, interstitial lung disease, asbestos exposure, chronic respiratory failure on 2-3 L supplemental O2 at home, DM1, CHF, HTN and CKD III with baseline creatinine 1.7. He has been diuresed this admission and appears to have returned to his overall baseline status, but overall his prognosis is poor due to him not responding as well to medicinal intervention. Palliative Medicine was consulted to discuss overall goals of care. I met with Mr. Plata who was sitting on the side of his bed in no apparent distress. He was AAOx 3 and able to participate and make his own medical decisions at this time. His SpO2 remains 95-96% during my encounter and he was able to speak in full sentences without distress. 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 He stated that what is most important to him is being at home and being independent. He stated that one of his most important things that he does is split wood at home. He became tearful discussing this. He realizes that he is slowing down. He expressed that his Johnny is well and independent. He said that if he is nearing his dying days, he would want to stay home. We discussed code status at length and he stated that "that's a hard question" but when he thought about he said "Id rather just go than go through that". He elaborated on what 'that' meant and he does not want chest compressions or a ventilator. DNR/DNI placed in the computer. He has been working with PT/OT and can ambulate without assistance with a walker. Discussed above with Hospitalist who may plan to discharge tomorrow, Wednesday 09/13. I talked with the patient about following with palliative care on an outpatient basis, even over telehealth. He was clear in stating that he sees too many doctors and just doesn't want to do any more appointments. Attempted to call his , Johnny, after Matt gave me permission. Unable to reach her at [phone]. Will try again tomorrow prior to discharge. (2) Hypoxia: seems to have returned to baseline status. On 2-3 L supplemental O2, SpO2 95- 96%. Has just started using the Triology at home last week. (3) Weakness: working with PT/OT History of Present Illness Reason for Consultation: Goals of Care Requesting Physician: Dr. Kenyon Attending Physician: Vincent Kenyon MD History of Present Illness This is an 80 year old male who presented to the [facility] from home with SOB x [address] Johansen at home and uses a Trilogy that was started last week. He has a significant contributing PMH that includes: tracheobroncheomalacia, tachy/macy syndrome s/p pace maker, atrial fibrillation on Coumadin, COPD, interstitial lung disease, asbestos exposure, chronic respiratory failure on 2-3 L supplemental O2 at home, DM1, CHF, HTN and CKD III with baseline creatinine 1.7. He has been diuresed this admission and appears to have returned to his overall baseline status, but overall his prognosis is poor due to him not responding as well to medicinal intervention. Palliative Medicine was consulted to discuss overall goals of care. Please see A/P for further details. Thanks for involving palliative medicine with this individual. Allergies Allergy/AdvReac Type Severity Reaction Status Date / Time diltiazem Allergy Mild rash Verified 09/09/20 10:09 fluticasone furoate AdvReac Intermediate Joint Pain Verified 09/09/20 10:09 [From Breo Ellipta] vilanterol AdvReac Intermediate Joint Pain Verified 09/09/20 10:09 [From Breo Ellipta] aspirin AdvReac Mild GI symptoms Verified 09/09/20 10:09 lisinopril AdvReac Mild cough Verified 09/09/20 10:09 propoxyphene AdvReac Mild GI upset, Verified 09/09/20 10:09 diarrhea Home Medications Medication Instructions Recorded Confirmed Type Flonase Sensimist 2 spray INTRANASAL DAILY PRN 07/03/18 09/09/20 History Lantus Solostar U-100 Insulin 20 - 22 unit SUBCUT QAM 07/03/18 09/09/20 History insulin aspart U-100 [Novolog 4 - 6 unit SUBCUT TID 07/03/18 09/09/20 History Flexpen U-100 Insulin] nitroglycerin [Nitrostat] 0.4 mg SUBLINGUAL UD PRN 07/03/18 09/09/20 History simvastatin [Zocor] 20 mg PO QPM 07/03/18 09/09/20 History tamsulosin [Flomax] 0.4 mg PO HS 07/03/18 09/09/20 History warfarin 2.5 mg tablet 2.5 mg PO MO 01/10/19 09/09/20 History levalbuterol HCl 1.25 mg INHALATION Q4H PRN 04/20/20 09/09/20 History metoprolol tartrate 50 mg PO BID 04/20/20 09/09/20 History warfarin 1.25 mg PO SUTUWETHFRSA 04/20/20 09/09/20 History digoxin 125 mcg (0.125 mg) tablet 125 mcg PO 3XWK tab 07/12/20 09/09/20 History acetylcysteine 100 mg/mL (10 %) 3 ml INHALATION BID #180 ml 07/22/20 09/09/20 Rx solution Anoro Ellipta 1 inh INHALATION QAM 08/13/20 09/09/20 History triamcinolone acetonide 0.1 % 1 applic TOPICAL BID #15 g 08/24/20 09/09/20 Rx topical cream ipratropium 20 mcg-albuterol 100 1 puff INHALATION Q6H #3 inhaler 08/31/20 09/09/20 Rx mcg/actuation mist for inhalation hydroxyzine HCl 10 mg PO Q8H PRN 09/09/20 09/09/20 History ipratropium bromide 2.5 ml INHALATION QID PRN 09/09/20 09/09/20 History prednisone 10 mg PO QAM 09/09/20 09/09/20 History torsemide 10 mg PO QAM 09/09/20 09/09/20 History Patient History Medical History (Updated 09/12/20 @ 17:12 by LUKE Larios) Anemia felt d/t chronic disease, hgb baseline 10-12 range per chart review Atrial fibrillation paroxysmal- on coumadin BPH (benign prostatic hypertrophy) CKD (chronic kidney disease) stage 3, GFR 30-59 ml/min COPD (chronic obstructive pulmonary disease) Diabetes type I Dyslipidemia per records Elbow fracture, right current issue s/p fall at home GERD (gastroesophageal reflux disease) r/t inhalers Interstitial lung disease Nocturnal hypoxemia 2L O2 HS 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)/last check 06/09/19 Palliative care encounter Pulmonary embolism remote hx Skin cancer left elbow region Weakness Surgical History H/O basal cell carcinoma excision REMOVED FROM NOSE H/O hand surgery LEFT MIDDLE FINGER FX REPAIR H/O inguinal hernia repair H/O nasal polypectomy History of bronchoscopy History of cataract surgery RT/LEFT History of colonoscopy History of inguinal hernia repair History of lung biopsy robotic thoracoscopy, pleural biopsy: 08/09/16: Grade view 1, MAC#3 at [facility] History of surgery of head "correct skull abnormality- left temporoparietal ; 1992" History of tooth extraction Status post placement of cardiac pacemaker Family History Brother Diabetes Son Diabetes Family hx of colon cancer Other Heart disease Social History Smoking Status: Former smoker Second Hand Exposure: No; Do You Dip or Chew Tobacco: No; Tobacco Cessation Education Requested by Patient: No Hx Alcohol Use: Yes Alcohol type: beer Hx Substance Use: No Preferred Language: Polish Communication Ability: Effective Visual Impairment: No Limitations Certified Flex Endoscope Reprocessor Required: No Beliefs That Will Affect Care: Mandaeism Mandaeism Beliefs: Yazidi marital status: Current Living Situation: Spouse Current Living Situation Comment: at home Feels Safe at Home: Yes Safety Concerns: Feels Safe At This Time Assistive Devices: Oxygen - Continuous and Walker Review of Systems Review of Systems: [place] System Assessment Scale: Tiredness: 0/3 SOB: 0/3 Pain: 0/3 Lack of Appetite: 1/3 Anxiety: 0/3 Palliative Performance Scale: 40% Physical Exam Constitutional: + frail appearing, cooperative and comfortable ENMT: Nose: + dry nasal mucous membranes Respiratory: normal respiratory effort; no labored breathing and does not use accessory muscles Cardiovascular: Heart Sounds: normal S1 and normal S2 Extremities: normal capillary refill and + edema (+3 Bilateral LE ) Gastrointestinal (Abdomen): normal bowel sounds, soft, nontender, no hepatosplenomegaly Skin: + crusts, + dry skin, + ecchymosis and + pallor Psychiatric: A+Ox3, euthymic affect Insight: good insight Judgement: good judgement Results & Data ([facility]) Vital Signs (Past 12 Hours) Vital Signs Temp Pulse Pulse Pulse Resp BP Pulse Ox 09/12/20 15:40 36.6 C 74 19 106/67 93 09/12/20 13:17 36.8 C 72 22 118/74 94 09/12/20 12:36 115 H 18 96 09/12/20 09:17 72 09/12/20 08:00 36.9 C 70 22 120/62 90 09/12/20 07:42 36.5 C 105 H 22 131/88 97 09/12/20 07:22 117 H 20 96 09/12/20 06:57 119 H PG Care Time/CCT Total # of Minutes Spent Total Time Spent with Patient: Total time spent is greater than 50% in c oordination of care (as documented) at patient's floor/unit and/or counseling patient: 70 minutes with > 50% of that time spent assessing the patient, discussing goals of care and collaborating with IDT Coding Level of Care Code 40303 Inpt Consult Level 3 Diagnoses Palliative care encounter Z51.5 Hypoxia R09.02 Weakness R53.1 Time Spent (min) 70
--- NOTE | 2020-09-12 18:50 | Electrocardiogram Report ---
Test Reason : Blood Pressure : / mmHG Vent. Rate : 109 BPM Atrial Rate : 187 BPM P-R Int : 000 ms QRS Dur : 112 ms QT Int : 354 ms P-R-T Axes : 000 -55 159 degrees QTc Int : 476 ms Atrial fibrillation with rapid ventricular response Incomplete right bundle branch block Left anterior fascicular block Abnormal ECG When compared with ECG of 10-SEP-2020 05:37, Nonspecific T wave abnormality, improved in Inferior leads Confirmed by Alec Sandoval ([id number]) on 09/12/2020 6:50:26 PM Referred By: REFERRED SELF Confirmed By:Jermain Sandoval
[2020-09-12] MEDS: TAMSULOSIN HCL 0.4 MG CAP PO SCH (20:15)
[2020-09-12] MEDS: SIMVASTATIN 20 MG TAB PO SCH (20:18)
[2020-09-12] MEDS: INSULIN HUMAN NPH SC SCH (21:31)
[2020-09-13] MEDS: IPRATROPIUM BROMIDE NEB SOLN 0.02% 2.5 ML VIAL INH SCH ×3 (00:33→13:38)
[2020-09-13] MEDS: LEVALBUTEROL 1.25MG/0.5ML NEB INH SCH ×3 (00:33→13:38)
[2020-09-13] MEDS ORDERED: INSULIN ASPART 100 UNITS/ML 3 ML PEN SC SCH (03:00)
[2020-09-13 06:07] LABS: Basophils # (auto) 0.01 K/uL (0-0.2); Basophils % (auto) 0.1 %; Hemoglobin 9.8 g/dL (14.0-18.0); Immature Granulocytes # (auto) 0.03 K/uL (0.00-0.02); Immature Granulocytes % (auto) 0.3 %; Lymphocytes % (auto) 9.1 %; Mean Corpuscular Hemoglobin 26.3 pg (25-34); Mean Corpuscular Hgb Conc 30.6 g/dL (32-36); Mean Corpuscular Volume 85.8 fL (80-100); Mean Platelet Volume 10.2 fL (7.4-10.4); Monocytes # (auto) 0.74 K/uL (0.11-0.59); Monocytes % (auto) 7.5 %; Neutrophils # (auto) 8.19 K/uL (1.4-6.5); Platelet Count 211 K/uL (130-400); RDW Coefficient of Variation 17.3 % (11.5-14.5); RDW Standard Deviation 54.8 fL (36.4-46.3); Red Blood Count 3.73 M/uL (4.7-6.1); White Blood Count 9.87 K/uL (4.8-10.8)
[2020-09-13 06:54] LABS: BUN Creatinine Ratio 34.2 (10-20); Calcium 8.8 mg/dl (8.5-10.1); Creatinine Clr Calc Pharmacy 30.3 ml/min; Est GFR (Non-African American) 30.2 ml/min; Magnesium 2.3 mg/dl (1.8-2.4); Phosphorus 3.5 mg/dl (2.5-4.9); Potassium 4.9 mmol/L (3.5-5.1)
[2020-09-13] MEDS: ACETYLCYSTEINE 10% INHAL SOLN 4 ML **DISPENSED BY RESP. INH SCH (07:16)
[2020-09-13] MEDS: FAMOTIDINE 20 MG in SYRINGE 3 ML IV SCH (08:20)
[2020-09-13] MEDS: DOXYCYCLINE HYCLATE 100 MG CAP PO SCH (08:20)
[2020-09-13] MEDS: METOPROLOL TARTRATE 25 MG TAB PO SCH (08:20)
[2020-09-13] MEDS: TORSEMIDE 10 MG TAB PO SCH ×2 (08:21→08:23)
[2020-09-13] MEDS: metOLazone 5 MG TABLET PO SCH ×3 (08:21→09:21)
[2020-09-13] MEDS: hydrOXYzine HCl 10 MG TAB PO PRN ×2 (08:21→08:23)
[2020-09-13] MEDS: predniSONE 20 MG TAB PO SCH (08:21)
[2020-09-13] MEDS: UMECLIDINIUM/VILANTEROL 62.5/25MCG 7 PUFFS/INHALER INH SCH (08:21)
[2020-09-13] MEDS: INSULIN ASPART 100 UNITS/ML 3 ML PEN SC SCH ×2 (08:25→12:42)
[2020-09-13] MEDS: INSULIN GLARGINE SOLOSTAR 100 UNITS/ML 3 ML PEN SC SCH (08:26)
[2020-09-13] MEDS ORDERED: INSULIN HUMAN NPH SC SCH ×4 (09:00→21:00)
--- NOTE | 2020-09-13 09:19 | Pharmacy Report ---
Pharmacy Glycemic Short Note 2 - Date of Service September 13, 2020 - Glycemic Short BSG Results (Last 24 hours): 09/12/20 09/12/20 09/12/20 11:36 11:38 11:38 Glucose POC Glucose 391 H* 288 H 300 H 09/12/20 09/12/20 09/13/20 16:21 20:40 03:10 Glucose POC Glucose 176 H 155 H 178 H 09/13/20 09/13/20 05:49 07:52 Glucose 124 H POC Glucose 144 H OUTPATIENT ANTIDIABETIC REGIMEN: * Lantus 20-22 units Qam, Novolog 4-6 units TID * A1c 9.2% 09/10/20 ASSESSMENT: 09/13 * BSGs elevated yesterday at breakfast and lunch, 264, 391, 176, and 155 mg/dL * Received 108 units of insulin (25 units of Lantus, 20 units of NPH, and 63 units of prandial/correctional Novolog) * Last dose of prednisone 40 mg today * Will increase NPH to 15 units SC x 1 this morning with final dose of prednisone * Fasting BSG much improved today at 144 mg/dL - will continue Lantus 25 units SC daily and utilize NPH scale this evening 09/12 * Pt has received 91 units of insulin over the past 24hrs * 30 units of basal with Lantus + 10 units of basal with NPH * 42 units of bolus with NovoLog * 9 units of IV Regular insulin for severe hyperglycemia * AM fasting BSG remains elevated - patient has HS snack which is not being covered. Will update MAR to ensure this snack is covered * BSGs elevated secondary to prednisone. Have been titrating up outpatient Lantus dosing to help cover steroid hyperglycemia but concern for hypo once steroids are tapered and too much long acting insulin on board. Will reduce Lantus back towards outpatient dosing and add NPH dose to be given with prednisone. This will be easily titrated based on steroid dosing. * NPH insulin is used to counteract the hyperglycemic effect of prednisone. The rationale for this approach is that the pharmacodynamics profile of NPH, with a peak effect of 4-8hrs and duration of action of 12-16hrs, mirrors the pharmacodynamics of prednisone. NPH should be dosed at the same time that prednisone is given * The dose of NPH given is dependent on the steroid dose given. NPH dosing above is given in addition to patients basal insulin needs. Typically, patients will also need rapid-acting insulin with meals 09/11 * Pt has received 41 units of insulin over the past 24hrs * 17 units of basal with Lantus * 24 units of bolus with NovoLog * BSGs [phone] mg/dl * AM fasting BSG significantly elevated this AM at 343 mg/dl. Pt is receiving d aily steroids but this does not account for significant rise in BSG from HS to AM. Will add NPH at bedtime to combat elevated fasting glucose * Steroids tapered from Solumedrol 40mg IV daily in AM to prednisone 40mg PO in AM. This should yield an improvement in BSGs but will continue aggressive CF/CR until severe hyperglycemia this AM resolves. 09/10 * BSGs improved over last 24 hrs * Fasting BSG 173 with 17 units basal on board - will increase dose per scale * Patient's diet has been advanced. He remains on steroids (Solu-medrol 40mg IV Q AM) - will increase Novolog prandial doses w/ meals (reviewed prior admission data showing substantial increase in Novolog requirements w/ steroid provision) * Will use lower Novolog doses at HS given h/o falling BSGs overnight 09/09 * 80 year old admitted with possible pneumonia. Started on steroids. Pharmacy consulted to help with glycemic management. Patient is a type 1 DM. * Received solm 40 iv in ER, BSGs in 300s - plan to start novolog now, verifying with RN if patient took home basal insulin. * May give IV bolus if recheck elevated. Patient NPO status currently. Will do Q4 hr checks to help better control BSGs PLAN FOR INPATIENT GLYCEMIC CONTROL: * Hold outpatient oral diabetes medications * Basal insulin * Lantus 25 units SQ AM * NPH 15 units SQ AM to be given with final dose of prednisone 40 mg PO daily * NPH SQ at bedtime (5-10 units based on BSG)- ?sheron phenomenon vs Lantus not lasting 24hrs for patient. * Bolus insulin * NovoLog per scale ACHS or Q6hrs while NPO * Goal Range: Low 110 mg/dL - High 140 mg/dL * Correction Factor: 15 mg/dL/unit AC, however use 25mg/dL/unit at HS * Nutritional / Prandial insulin per carb ratio of 1 unit per 5 grams CHO consumed w/ meals, use 1 unit per 10grams CHO at HS PLAN FOR DISCHARGE: * to be determined once steroids discontinued
--- NOTE | 2020-09-13 11:12 | Hospitalist Progress Note ---
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 Johansen in the office yesterday, and oxygen requirement was uptitrated as above. Instructed to continue 10mg prednisone daily and utilize all airway clearance maneuvers and inhalers Per Dr. Johansen, prognosis is poor Has been getting nebulized bronchodilator and also intravenous Solu-Medrol Doubt any pneumonia Started on intravenous cefepime which will be continued for 24 hours and then changed to oral doxycycline We will continue with the BiPAP nightly and as needed for increasing shortness of breath Clinically much better and is back to his baseline We will change antibiotic to oral doxycycline PT and OT evaluation to increase mobility Denies any significant symptoms and no shortness of breath at rest He is at his baseline and will be discharged home this afternoon Palliative care encounter Appreciate palliative care input and recommendation The patient is not yet a fourth palliative care at home (2) Acute on chronic diastolic heart failure: Appears clinically volume overloaded Increasing shortness of breath with increasing leg edema and chest x-ray evidence of pulmonary edema Given 60mg IV Lasix Monitor volume status closely, strict I&Os, daily weights We will continue current dose of intravenous Lasix and metolazone Reasonable diuresis with symptomatic improvement Received adequate doses of intravenous Lasix and will hold for now as the creatinine is going up No symptoms of acute fluid overload He is back to his oral dose of torsemide and the kidney function seems to be improving (3) 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: (4) Interstitial lung disease: (5) COPD (chronic obstructive pulmonary disease): (6) Asbestos exposure: (7) Atrial fibrillation with rapid ventricular response: HR currently 129 contributed by use of bronchodilators Home medications include digoxin, Lopressor IV Lopressor 5mg IV for HR > 110 (8) Supratherapeutic INR: snf anticoagulation with Coumadin but INR currently 7.5 so HOLDING Received vitamin K INR has been improving-1.7 as of 09/10/2020 Will restart Coumadin INR remains subtherapeutic at 1.4 today Will give 5 mg Coumadin this afternoon INR is 2.6 on 09/12/2020-we will continue his usual home dose of Coumadin (9) Diabetes type I: (10) HTN (hypertension): (11) Tachycardia-bradycardia syndrome: (12) CKD (chronic kidney disease) stage 3, GFR 30-59 ml/min: This is an 80yo M with a PMH of tachybrady syndrome status post pacemaker, chronic Atrial fibrillation anticoagulated on Coumadin, COPD with interstitial lung disease & asbestos exposure with tracheobronchomalacia with chronic respiratory failure on 2 to 3 L oxygen, T1DM, diastolic CHF, HTN, HLD, CKD stage III baseline creatinine 1.7 who presents to ED secondary to progressive difficulty breathing overnight. Supratherapeutic INR INR 7.5 - no evidence of acute bleeding. Hgb at baseline ~ 9.9 Hold Coumadin, trend daily INR INR was 2.6 as on 09/12/2020 We will continue with the current outpatient dose of Coumadin and will have regular follow-up appointments with Coumadin clinic as an outpatient Type 1 diabetes Initial BSG 360, beta hydroxybutyric acid 4.4, no ketones in urine Given 10 units insulin regular in ED Hypertension BP 102/59 Continue Lopressor with hold parameters Tachybradycardia syndrome Status post pacemaker placement CKD III Kidney function at baseline Creatinine went up to 2.36 from 1.40 We will hold off any more intravenous Lasix Monitor PRP-creatinine is slightly better and will not push any more intravenous Lasix Creatinine remains stable at 2.0 DVT Ppx: Coumadin held while supratherapeutic Code status: FULL CODE per lengthy discussion with patient and later over phone PCP: Mell Dispo: Admitted to ICU. Discharge planning ordered. We will discharge home this afternoon He has his usual appointments with primary care physician and the tool drawing checker Admission and Anticipated Discharge Date Admission Date: September 09, 2020 Subjective 09/10/2020 The patient was seen and examined in ICU He was admitted with acute shortness of breath yesterday with history of significant lung fibrosis He has been feeling a lot better since admission with profuse diuresis Denies any significant symptoms No fever and/or chills and no pain 09/11/2020 The patient was seen and examined in medical telemetry unit He has been feeling much better and seems to be at his baseline Has generalized weakness but denies any other significant symptoms His blood sugar is noted to be high likely secondary to use of steroid 09/12/2020 The patient was seen and examined in medical telemetry unit He has been feeling much better and is back to his baseline Denies any significant symptoms Most likely be discharged tomorrow 09/13/2020 The patient was seen and examined in medical telemetry unit He is back to his baseline and denies any symptoms at rest Shortness of breath with exertion Minimal cough but no fever and/or chills and no abdominal pain, nausea and/or vomiting Review of Systems Review of Systems: All systems reviewed and are unremarkable except as noted below Respiratory: + cough and + dyspnea (Minimal dyspnea at rest) Physical Exam Physical Exam: Sitting on a chair without any acute distress Constitutional: well developed, well nourished, + ill appearing and + obese Eyes: PERRL, conjunctivae normal, anicteric sclerae ENMT: external ear and nose normal, oropharynx normal Neck: trachea midline, no thyromegaly Respiratory: no respiratory distress (Mild to moderate) Auscultation: + diminished lung sounds, + crackles (Bibasilar crackles) and + wheezes (Minimal wheezing bilaterally) Cardiovascular: Rate/Rhythm: regular rate and regular rhythm Heart Sounds: no murmur Extremities: + edema (1+ edema bilaterally) Gastrointestinal (Abdomen): Inspection/Auscultation: normal bowel sounds; abdomen not distended Percussion/Palpation: abdomen soft; abdomen nontender Musculoskeletal: No acute arthritis in any joint Psychiatric: A+Ox3, euthymic affect Lymphatic: no cervical or axillary lymphadenopathy Results & Data Results & Data ([facility]) Vital Signs (Past 12 Hours) Vital Signs Temp Pulse Pulse Pulse Resp BP Pulse Ox 09/13/20 07:44 36.4 C L 123 H 18 101/62 87 L 09/13/20 07:17 114 H 20 98 09/13/20 07:09 104 H 09/13/20 05:00 36.3 C L 88 19 127/72 100 09/13/20 00:33 101 H 101 H 22 98 09/13/20 00:21 126 H 09/12/20 23:07 36.5 C 120 H 18 130/86 100 Laboratory Results Short CBC 09/13/20 Range/Units 05:49 WBC 9.87 (4.8-10.8) K/uL Hgb 9.8 L (14.0-18.0) g/dL Hct 32.0 L (42-52) % Plt Count 211 (130-400) K/uL [facility] 09/13/20 05:49 Sodium 139 Potassium 4.9 Chloride 99 Carbon Dioxide 37 H BUN 68 H Creatinine 2.00 H Glucose 124 H Calcium 8.8 Medications Administered Current Inpatient Medications Acetaminophen (Acetaminophen 325 Mg Tab) 650 mg PO Q4H PRN PRN Reason: Pain or Fever Stop: 10/09/20 13:51 Acetylcysteine (Acetylcysteine 10% Inhal Soln 4 Ml Dispensed By Resp.) 3 ml INH BIDR [facility] Stop: 10/09/20 18:59 Last Admin: 09/13/20 07:16 Dose: 3 ml Documented by: Dextrose (Dextrose 50% 50 Ml Syringe) 25 - 50 ml IV UD PRN; Protocol PRN Reason: Hypoglycemia Protocol Stop: 10/09/20 14:14 Digoxin (Digoxin 0.125 Mg Tab) 0.125 mg PO [id number] [facility] Stop: 10/10/20 15:59 Last Admin: 09/10/20 15:52 Dose: 0.125 mg Documented by: Doxycycline Hyclate (Doxycycline Hyclate 100 Mg Cap) 100 mg PO BID [facility] Stop: 09/18/20 20:59 Last Admin: 09/13/20 08:20 Dose: 100 mg Documented by: Glucagon (Glucagon For Inj 1 Mg Vial) 1 mg IM UD PRN; Protocol PRN Reason: Hypoglycemia Protocol Stop: 10/09/20 14:14 Glucose (Glucose 40% Gel 15 Gm Tube) 15 - 30 gm PO UD PRN; Protocol PRN Reason: Hypoglycemia Protocol Stop: 10/09/20 14:14 Glucose (Glucose 10 Tabs/Tube) 4 - 8 tabs PO UD PRN; Protocol PRN Reason: Hypoglycemia Protocol Stop: 10/09/20 14:14 Hydroxyzine HCl (Hydroxyzine Hcl 10 Mg Tab) 10 mg PO Q8H PRN PRN Reason: Anxiety Stop: 10/10/20 13:20 Last Admin: 09/13/20 08:23 Dose: 10 mg Documented by: Famotidine 20 mg/ Syringe 5 mls @ 2.5 mls/min IV DAILY [facility] Stop: 10/09/20 15:59 Last Admin: 09/13/20 08:20 Dose: 2.5 mls/min Documented by: Insulin Aspart (Insulin Aspart 100 Units/Ml 3 Ml Pen) 0 units SC [facility] Stop: 10/10/20 16:29 Last Admin: 09/13/20 08:25 Dose: 10 units Documented by: Insulin Aspart (Insulin Aspart 100 Units/Ml 3 Ml Pen) 0 units SC [facility] Stop: 10/10/20 20:59 Last Admin: 09/12/20 21:28 Dose: 3 units Documented by: Insulin Glargine (Insulin Glargine Solostar 100 Units/Ml 3 Ml Pen) 25 units SC [facility] Stop: 10/12/20 08:59 Last Admin: 09/13/20 08:26 Dose: 25 units Documented by: Insulin Human NPH (Insulin Human Nph) 10 units SC [facility] Stop: 10/11/20 20:59 Last Admin: 09/12/20 21:31 Dose: 10 units Documented by: Ipratropium [place] (Ipratropium [place] Neb Soln 0.02% 2.5 Ml Vial) 0.5 mg INH Q6R [facility] Stop: 10/10/20 00:59 Last Admin: 09/13/20 07:16 Dose: 0.5 mg Documented by: Levalbuterol HCl (Levalbuterol 1.25mg/0.5ml Neb) 1.25 mg INH Q6R [facility] Stop: 10/11/20 00:59 Last Admin: 09/13/20 07:16 Dose: 1.25 mg Documented by: Metolazone (Metolazone 5 Mg Tablet) [facility] Stop: 10/10/20 08:59 Last Admin: 09/13/20 09:21 Dose: 5 mg Documented by: Metoprolol Tartrate (Metoprolol Tartrate 25 Mg Tab) 25 mg PO PM [facility] Stop: 10/09/20 20:59 Last Admin: 09/12/20 20:15 Dose: 25 mg Documented by: Metoprolol Tartrate (Metoprolol Tartrate 25 Mg Tab) 25 [facility] Stop: 10/09/20 13:51 Last Admin: 09/13/20 08:20 Dose: 25 mg Documented by: Miscellaneous (Carbohydrates For Hypoglycemia ) 15 - 30 gm PO UD PRN PRN Reason: Hypoglycemia Treatment Stop: 10/09/20 14:14 Miscellaneous Information (Pharmacy Glycemic Mgmt Consult) 1 ea N/A UD PRN PRN Reason: Consult Stop: 10/09/20 14:11 Nitroglycerin (Nitroglycerin Sl 0.4 Mg/Tab Tab) 0.4 mg SL UD PRN PRN Reason: Chest Pain Stop: 10/09/20 13:51 Ondansetron HCl (Ondansetron Inj 2 Mg/Ml 2 Ml Vial) 4 mg IV Q6H PRN PRN Reason: Nausea Stop: 10/09/20 13:51 Polyethylene Glycol (Polyethylene (Miralax) 17 Gm Pack) 17 gm PO DAILY PRN PRN Reason: Constipation Stop: 10/09/20 13:51 Prednisone (Prednisone 20 Mg Tab) 40 mg PO DAILY [facility] Stop: 09/14/20 08:59 Last Admin: 09/13/20 08:21 Dose: 40 mg Documented by: Simvastatin (Simvastatin 20 Mg Tab) 20 mg PO QPM [facility] Stop: 10/09/20 20:59 Last Admin: 09/12/20 20:18 Dose: 20 mg Documented by: Tamsulosin HCl (Tamsulosin Hcl 0.4 Mg Cap) 0.4 mg PO HS [facility] Stop: 10/09/20 20:59 Last Admin: 09/12/20 20:15 Dose: 0.4 mg Documented by: Torsemide (Torsemide 10 Mg Tab) 10 mg PO QAM [facility] Stop: 10/12/20 08:59 Last Admin: 09/13/20 08:23 Dose: 10 mg Documented by: Umeclidinium/Vilanterol (Umeclidinium/Vilanterol 62.5/25mcg 7 Puffs/Inhaler) 1 puffs INH QAM [facility] Stop: 10/10/20 08:59 Last Admin: 09/13/20 08:21 Dose: 1 puffs Documented by: Warfarin Sodium (Warfarin Sod 2.5 Mg Tab) 2.5 mg PO [id number] [facility] Stop: 10/13/20 15:59 Warfarin Sodium (Warfarin Sod 1.25 Mg Tab) 1.25 mg PO [id number] [facility] Stop: 10/11/20 15:59 Last Admin: 09/12/20 16:20 Dose: 1.25 mg Documented by: (1) COPD (chronic obstructive pulmonary disease) COPD type: unspecified COPD Qualified Code(s): J44.9 - Chronic obstructive pulmonary disease, unspecified
--- NOTE | 2020-09-13 14:18 | Discharge Summary ---
Date of Service September 13, 2020 Admission HPI Per Admitting Provider This is an 80yo M with a PMH of tachybrady syndrome status post pacemaker, chronic Atrial fibrillation anticoagulated on Coumadin, COPD with interstitial lung disease & asbestos exposure with tracheobronchomalacia with chronic respiratory failure on 2 to 3 L oxygen, T1DM, diastolic CHF, HTN, HLD, CKD stage III baseline creatinine 1.7 who presents to ED secondary to progressive difficulty breathing overnight. Patient medically complex and most recently admitted to our service in July for Pseudomonas pneumonia. Was treated with Zosyn and doxycycline and discharged on August 17, 2020. Since then, continues to follow closely with Dr. Johansen of pulmonology. Recently started on trilogy AVAPS machine HS with 3L O2. Also instructed to use 2L O2 during the day. States he is taking all medications as prescribed but felt profoundly more short of breath overnight yesterday. Sleeps sitting upright due to chronic orthopnea. Continues to have wet sounding cough with difficulty expectorating sputum. Feels fatigued all of the time and emotionally worn out from requiring multiple hospitalizations lately and not feeling much better. Did allude to conversation with Dr. Johansen yesterday in which poor prognosis was discussed. Is willing to discuss goals of care with palliative medicine but would like to remain a full code. Denies any fever, chills, lightheadedness, chest pain or palpitations. Unable to obtain remainder of ROS due to patient's respiratory distress while on Bipap. Admission Exam Per Admitting Provider Physical Exam: General Appearance: WD/WN, vitals as above, NAD, sitting up in bedside chair, mild respiratory distress wearing BiPAP mask Head: normocephalic, atraumatic Eyes: normal inspection, PERRL, conjunctivae normal, anicteric sclerae ENT: external ear and nose normal, oropharynx normal Neck: normal visual inspection, trachea midline, no thyromegaly Respiratory: Increased respiratory effort, rhonchi throughout lung raymond with prolonged expiratory phase No wheeze, rales. Wearing BiPAP mask with some accessory muscle use noted Cardiovascular: Tachycardic rate, irregular rhythm, no murmur appreciated, normal peripheral pulses, 3+o BLE edema. Vessels: difficulty to assess 2/2 bipap mask Chest: normal inspection of chest Abdomen/GI: normal bowel sounds, soft, nontender, no hepatosplenomegaly Extremities/Musculoskeletal: no cyanosis or clubbing, extremities motor strength 5/5 Neurologic: PERRL, EOMI, accommodation nl, no face palsy, no dysarthria, CN's II-XI intact bilaterally and moves all extremities Psychiatric: A+Ox3, euthymic affect Skin: no rashes, normal color, warm/dry Principal Diagnosis Acute on chronic hypoxic and hypercapnic respiratory failure, interstitial lung disease, COPD, significant tracheomalacia, atrial fibrillation on Coumadin, diabetes on insulin Discharge Exam Constitutional well developed, well nourished, + ill appearing and + obese Eyes PERRL, conjunctivae normal, anicteric sclerae ENMT external ear and nose normal, oropharynx normal Neck trachea midline, no thyromegaly Respiratory no respiratory distress (Mild to moderate) Auscultation: + diminished lung sounds, + crackles (Bibasilar crackles) and + wheezes (Minimal wheezing bilaterally) Cardiovascular Rate/Rhythm: regular rate and regular rhythm Heart Sounds: no murmur Extremities: + edema (1+ edema bilaterally) Gastrointestinal (Abdomen) Inspection/Auscultation: normal bowel sounds; abdomen not distended Percussion/Palpation: abdomen soft; abdomen nontender Psychiatric A+Ox3, euthymic affect Lymphatic no cervical or axillary lymphadenopathy Discharge Data Allergies Allergy/AdvReac Type Severity Reaction Status Date / Time diltiazem Allergy Mild rash Verified 09/09/20 10:09 fluticasone furoate AdvReac Intermediate Joint Pain Verified 09/09/20 10:09 [From Breo Ellipta] vilanterol AdvReac Intermediate Joint Pain Verified 09/09/20 10:09 [From Breo Ellipta] aspirin AdvReac Mild GI symptoms Verified 09/09/20 10:09 lisinopril AdvReac Mild cough Verified 09/09/20 10:09 propoxyphene AdvReac Mild GI upset, Verified 09/09/20 10:09 diarrhea Consultations 09/09/20 12:31 Consult Pulmonology Routine 09/09/20 13:52 Consult Palliative Care Routine 09/09/20 14:57 Consult Maintenance And Utilities Supervisor Routine Diabetes Follow up Diabetes Follow-up Needed for HgbA1c >9% Hospital Course (1) Acute on chronic respiratory failure: Acute on chronic hypoxic and hypercapnic respiratory failure Interstitial lung disease History of asbestos exposure COPD with remote tobacco use 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 Johansen in the office yesterday, and oxygen requirement was uptitrated as above. Instructed to continue 10mg prednisone daily and utilize all airway clearance maneuvers and inhalers Per Dr. Johansen, prognosis is poor Has been getting nebulized bronchodilator and also intravenous Solu-Medrol Doubt any pneumonia Started on intravenous cefepime which will be continued for 24 hours and then changed to oral doxycycline We will continue with the BiPAP nightly and as needed for increasing shortness of breath Clinically much better and is back to his baseline We will change antibiotic to oral doxycycline PT and OT evaluation to increase mobility Denies any significant symptoms and no shortness of breath at rest He is at his baseline and will be discharged home this afternoon Palliative care encounter Appreciate palliative care input and recommendation The patient is not yet a fourth palliative care at home (2) Acute on chronic diastolic heart failure: Appears clinically volume overloaded Increasing shortness of breath with increasing leg edema and chest x-ray evidence of pulmonary edema Given 60mg IV Lasix Monitor volume status closely, strict I&Os, daily weights We will continue current dose of intravenous Lasix and metolazone Reasonable diuresis with symptomatic improvement Received adequate doses of intravenous Lasix and will hold for now as the creatinine is going up No symptoms of acute fluid overload He is back to his oral dose of torsemide and the kidney function seems to be improving (3) 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: (4) Interstitial lung disease: (5) COPD (chronic obstructive pulmonary disease): (6) Asbestos exposure: (7) Atrial fibrillation with rapid ventricular response: HR currently 129 contributed by use of bronchodilators Home medications include digoxin, Lopressor IV Lopressor 5mg IV for HR > 110 (8) Supratherapeutic INR: buttermaker anticoagulation with Coumadin but INR currently 7.5 so HOLDING Received vitamin K INR has been improving-1.7 as of 09/10/2020 Will restart Coumadin INR remains subtherapeutic at 1.4 today Will give 5 mg Coumadin this afternoon INR is 2.6 on 09/12/2020-we will continue his usual home dose of Coumadin (9) Diabetes type I: (10) HTN (hypertension): (11) Tachycardia-bradycardia syndrome: (12) CKD (chronic kidney disease) stage 3, GFR 30-59 ml/min: This is an 80yo M with a PMH of tachybrady syndrome status post pacemaker, chronic Atrial fibrillation anticoagulated on Coumadin, COPD with interstitial lung disease & asbestos exposure with tracheobronchomalacia with chronic respiratory failure on 2 to 3 L oxygen, T1DM, diastolic CHF, HTN, HLD, CKD stage III baseline creatinine 1.7 who presents to ED secondary to progressive difficulty breathing overnight. Supratherapeutic INR INR 7.5 - no evidence of acute bleeding. Hgb at baseline ~ 9.9 Hold Coumadin, trend daily INR INR was 2.6 as on 09/12/2020 We will continue with the current outpatient dose of Coumadin and will have regular follow-up appointments with Coumadin clinic as an outpatient Type 1 diabetes Initial BSG 360, beta hydroxybutyric acid 4.4, no ketones in urine Given 10 units insulin regular in ED Hypertension BP 102/59 Continue Lopressor with hold parameters Tachybradycardia syndrome Status post pacemaker placement CKD III Kidney function at baseline Creatinine went up to 2.36 from 1.40 We will hold off any more intravenous Lasix Monitor PRP-creatinine is slightly better and will not push any more intravenous Lasix Creatinine remains stable at 2.0 DVT Ppx: Coumadin held while supratherapeutic Code status: FULL CODE per lengthy discussion with patient and later over phone PCP: Mell Dispo: Admitted to ICU. Discharge planning ordered. We will discharge home this afternoon He has his usual appointments with primary care physician and the design specialist Total Time Total Time Spent Total Time Spent (In Minutes): 40 minutes Total Time Includes: Examination of the Patient, Discharge Planning, Medication Reconciliation and Communication With Other Providers Discharge Plan Discharge Items Patient Disposition: Home - Home Health Services Reason For Visit: RESPIRATORY FAILURE Discharge Diagnosis: Acute on chronic hypoxic and hypercapnic respiratory failure, interstitial lung disease, COPD, significant tracheomalacia, atrial fibrillation on Coumadin, diabetes on insulin Activity: Resume your previous activity Non-emergency contact: Primary Care Provider Call non-emergency contact if: you have any medication questions and your symptoms worsen Follow-up/Referrals: Kg Monte MD [Primary Care Provider] - (You will be called home tomorrow with an appointment with your primary care provider within 1 week) Diet: Carb Consistent or DM2 and Heart Healthy Fluids: 1500ml (6 cups) Addtl Attending Provider Instructions: Please take extreme precautions to avoid fall No change in your current medications Finish the course of antibiotic and prednisone Please keep appointment with your design specialist, your PCP and coagulation clinic Pending Studies at Discharge: No Stand-Alone Forms: My [employer], Smoking Cessation Medications and DC Order Prescriptions: New doxycycline hyclate 100 mg Capsule 100 mg PO BID Qty: 6 RF: 0 prednisone 10 mg tablet 10 mg PO UD Qty: 30 RF: 0 Continued acetylcysteine 100 mg/mL (10 %) solution 3 ml inhalation BID Qty: 180 RF: 1 Combivent Respimat 20-100 mcg/actuation mist 1 puff inhalation Q6H Qty: 3 RF: 1 warfarin 2.5 mg tablet 2.5 mg PO MO RF: 0 triamcinolone acetonide 0.1 % cream 1 applic TOPICAL BID Qty: 15 RF: 3 digoxin 125 mcg (0.125 mg) tablet 125 mcg PO 3XWK RF: 0 levalbuterol HCl 1.25 mg/3 mL solution for nebulization 1.25 mg INHALATION Q4H PRN (Reason: Shortnes of breath) RF: 0 warfarin 2.5 mg tablet 1.25 mg PO SUTUWETHFRSA RF: 0 metoprolol tartrate 50 mg Tablet 50 mg PO BID RF: 0 tamsulosin [Flomax] 0.4 mg Capsule 0.4 mg PO HS RF: 0 simvastatin [Zocor] 20 mg Tablet 20 mg PO QPM RF: 0 nitroglycerin [Nitrostat] 0.4 mg Tablet, Sublingual 0.4 mg Sublingual UD PRN (Reason: Chest Pain) RF: 0 insulin aspart U-100 [Novolog Flexpen U-100 Insulin] 100 unit/mL Insulin Pen 4 - 6 unit subcut TID RF: 0 Flonase Sensimist 27.5 mcg/actuation [place],Suspension 2 spray Intranasal DAILY PRN (Reason: Nasal Congestion) RF: 0 Lantus Solostar U-100 Insulin 100 unit/mL (3 mL) Insulin Pen 20 - 22 unit SUBCUT QAM RF: 0 Anoro Ellipta 62.5-25 mcg/actuation blister with device 1 inh inhalation QAM RF: 0 prednisone 10 mg tablet 10 mg PO QAM RF: 0 torsemide 20 mg tablet 10 mg PO QAM RF: 0 hydroxyzine HCl 10 mg tablet 10 mg PO Q8H PRN (Reason: Anxiety) RF: 0 ipratropium bromide 0.02 % Solution 2.5 ml INHALATION QID PRN (Reason: Shortness Of Breath) RF: 0 Discharge Orders: Discharge Order (Routine); Ordered 09/13/20 Ordered By: Vincent Presley/Other Patient Handouts: Stroke and Heart Disease, Managing Type 1 Diabetes, Eating Heart-Healthy Foods Admission Data Admit Date/Time: 09/09/20 12:31 Attending Provider: Vincent Kenyon Admit Provider: Syed Cage Primary Care Provider: Kg Monte Other Providers: Kaitlin Henderson ; Syed Cage ; Fabiola Salamanca ; [facility] Other Interventions: Discharge Summary Assessment (RN) Last Done: 09/13/20 12:49
[2020-09-13] MEDS ORDERED: WARFARIN SOD 2.5 MG TAB PO SCH (16:00)
== END 2020-09-13 14:48 | disposition home health service (06) | DRG 196 ==
LOC: ED 08:21 → SUATTDRO 12:31 → 2S 12:31 → 1E 15:18 → 2N 09-10 10:55

== ENCOUNTER 2020-09-18 14:34 | Inpatient (IN) ==
[2020-09-18] MEDS ORDERED: MoRPHine SULFATE 2 MG/ML CARP IV PRN (14:56)
[2020-09-18] MEDS ORDERED: SODIUM CHLORIDE 0.9% 1000ML 1,000 ML IV SCH (15:00)
--- NOTE | 2020-09-18 15:21 | XRay Report ---
XR chest 1V portable HISTORY: 80 years-old Male fall acute chest trauma status post fall COMPARISON: Chest radiograph 09/09/2020, chest CT 10/09/2019 TECHNIQUE: Portable AP view of the chest FINDINGS: Cardiac silhouette is enlarged. Left subclavian pacer. Calcified plaque of the thoracic aorta with ca lcified pleural plaques redemonstrated. Round radiodense structure projecting over the lateral left m idlung and left lung base are likely artifactual. There is improved aeration of the lungs with linear subsegmental bibasilar densities. Surgical suture material the right lung apex. Degenerative changes of the shoulders and spine. IMPRESSION: 1. Cardiomegaly without acute process. 2. Calcified pleural plaques with bibasilar atelectasis/scarring redemonstrated. ACT 112: Negative or not required by law. The above report was generated using voice recognition software. It may contain grammatical, syntax o r spelling errors. Electronically signed by: Ken Magaña M.D. 09/18/2020 3:19 PM
--- NOTE | 2020-09-18 15:24 | XRay Report ---
XR hip LT 2V w pelvis HISTORY: 80 years-old Male fall, pain acute left-sided hip pain status post fall COMPARISON: None TECHNIQUE: AP view of the pelvis with 2 views of the left hip FINDINGS: Moderate osteoarthritis of the hips. There is an acute transcervical fracture of the left femoral nec k with mild impaction and 10 mm medial displacement. Mild associated soft tissue swelling. No disloca tion or avascular necrosis. Arterial calcifications. IMPRESSION: Acute mildly impacted and slightly displaced transcervical fracture of the left femoral n abhay. ACT 112: Negative or not required by law. The above report was generated using voice recognition software. It may contain grammatical, syntax o r spelling errors. Electronically signed by: Ken Magaña M.D. 09/18/2020 3:22 PM
[2020-09-18 15:32] LABS: Hematocrit (blood only) 34.1 % (42-52); Hemoglobin 10.4 g/dL (14.0-18.0); Immature Granulocytes % (auto) 1.1 %; Lymphocytes # (auto) 0.85 K/uL (1.2-3.4); Lymphocytes % (auto) 9.2 %; Mean Corpuscular Hemoglobin 26.4 pg (25-34); Mean Corpuscular Hgb Conc 30.5 g/dL (32-36); Mean Corpuscular Volume 86.5 fL (80-100); Mean Platelet Volume 9.4 fL (7.4-10.4); Monocytes # (auto) 0.31 K/uL (0.11-0.59); Monocytes % (auto) 3.4 %; Neutrophils # (auto) 7.94 K/uL (1.4-6.5); Neutrophils % (auto) 86.3 %; Platelet Count 230 K/uL (130-400); RDW Coefficient of Variation 16.8 % (11.5-14.5); RDW Standard Deviation 53.5 fL (36.4-46.3); Red Blood Count 3.94 M/uL (4.7-6.1)
--- NOTE | 2020-09-18 15:32 | Emergency Department Note ---
History of Present Illness General Chief complaint: Fall Stated complaint: Fall Time Seen by Provider: 09/18/20 14:55 Source: patient and family Mode of arrival: EMS Limitations: no limitations History of Present Illness Provider complaint: fall, left hip pain Onset (ago): hour(s) Location: hip Radiation: non-radiation Severity: moderate Pain Consistency: + constant Maximum Pain Intensity: 8 Current Pain Intensity: 8 Quality: + constant Relieved By: + none Exacerbated By: + movement Associated symptoms: + denies other symptoms Treatments prior to arrival: none This is an 80-year-old male who presents with his at bedside from home via EMS after an accidental fall. Patient states he will frequently become unsteady or dizzy if he stands up and tries to move too quickly. Patient does use a cane and walker at all times although states he will occasionally try to go without. States this afternoon he stood up and began walking at his house outside, went to grab a hold of something to help steady himself and missed it, subsequently falling and landing on his left side. states he did strike his head although denies any LOC. She states she witnessed the entire event. She and her grandson rolled the patient over and carefully stood him up to get him back into a seated wheelchair. They are most concerned for a possible hip fracture. Patient denies any headaches, neck or back pain, nausea or vomiting, dizziness, or blurred vision while seated. Patient does have a significant past medical history and states is anticoagulated due to history of heart problems. states he was recently admitted due to congestive heart failure as well. Patient denies any other extremity trauma or concern for other injury. Patient states pain is located at the left hip, is worse with movement, but is otherwise nonradiating. He denies any acccompanying paresthesias. Patient st ates he has chronic lower extremity edema. Pt seen during a time of high acuity and national emergency pandemic while wearing PPE. Home Medications Medication Instructions Recorded Confirmed Type Flonase Sensimist 2 spray INTRANASAL DAILY PRN 07/03/18 09/18/20 History Lantus Solostar U-100 Insulin 20 - 22 unit SUBCUT QAM 07/03/18 09/18/20 History insulin aspart U-100 [Novolog 4 - 6 unit SUBCUT TID 07/03/18 09/18/20 History Flexpen U-100 Insulin] nitroglycerin [Nitrostat] 0.4 mg SUBLINGUAL UD PRN 07/03/18 09/18/20 History simvastatin [Zocor] 20 mg PO QPM 07/03/18 09/18/20 History tamsulosin [Flomax] 0.4 mg PO HS 07/03/18 09/18/20 History warfarin 2.5 mg tablet 2.5 mg PO MO 01/10/19 09/18/20 History levalbuterol HCl 1.25 mg INHALATION Q4H PRN 04/20/20 09/18/20 History metoprolol tartrate 50 mg PO BID 04/20/20 09/18/20 History warfarin 1.25 mg PO SUTUWETHFRSA 04/20/20 09/18/20 History digoxin 125 mcg (0.125 mg) tablet 125 mcg PO 3XWK tab 07/12/20 09/18/20 History acetylcysteine 100 mg/mL (10 %) 3 ml INHALATION BID #180 ml 07/22/20 09/18/20 Rx solution Anoro Ellipta 1 inh INHALATION QAM 08/13/20 09/18/20 History triamcinolone acetonide 0.1 % 1 applic TOPICAL BID #15 g 08/24/20 09/18/20 Rx topical cream ipratropium 20 mcg-albuterol 100 1 puff INHALATION Q6H #3 inhaler 08/31/20 09/18/20 Rx mcg/actuation mist for inhalation hydroxyzine HCl 10 mg PO Q8H PRN 09/09/20 09/18/20 History ipratropium bromide 2.5 ml INHALATION QID PRN 09/09/20 09/18/20 History torsemide 10 mg PO QAM 09/09/20 09/18/20 History doxycycline hyclate 100 mg PO BID #6 cap 09/13/20 09/18/20 Rx prednisone 10 mg PO UD #30 tab 09/13/20 09/18/20 Rx Allergies Allergy/AdvReac Type Severity Reaction Status Date / Time diltiazem Allergy Mild rash Verified 09/18/20 15:42 fluticasone furoate AdvReac Intermediate Joint Pain Verified 09/18/20 15:42 [From Juancarlos Osborne] vilanterol AdvReac Intermediate Joint Pain Verified 09/18/20 15:42 [From Juancarlos Osborne] aspirin AdvReac Mild GI symptoms Verified 09/18/20 15:42 lisinopril AdvReac Mild cough Verified 09/18/20 15:42 propoxyphene AdvReac Mild GI upset, Verified 09/18/20 15:42 diarrhea 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)/last check 06/09/19 Palliative care encounter Pulmonary embolism remote hx Skin cancer left elbow region Weakness Surgical History H/O basal cell carcinoma excision REMOVED FROM NOSE H/O hand surgery LEFT MIDDLE FINGER FX REPAIR H/O inguinal hernia repair H/O nasal polypectomy History of bronchoscopy History of cataract surgery RT/LEFT History of colonoscopy History of inguinal hernia repair History of lung biopsy robotic thoracoscopy, pleural biopsy: 08/09/16: Grade view 1, MAC#3 at [facility] History of surgery of head "correct skull abnormality- left temporoparietal ; 1992" History of tooth extraction Status post placement of cardiac pacemaker Family History Brother Diabetes Son Diabetes Family hx of colon cancer Other Heart disease Social History Smoking Status: Former smoker Second Hand Exposure: No; Hx Alcohol Use: Yes Alcohol type: beer Hx Substance Use: No Preferred Language: Mohawk Communication Ability: Effective Visual Impairment: No Limitations Meat Grader Required: No Beliefs That Will Affect Care: None marital status: Current Living Situation: Spouse Current Living Situation Comment: at home Other Information That Helps Us Care for You: No Feels Safe at Home: Yes Safety Concerns: Feels Safe At This Time Assistive Devices: CPAP, Glasses and Oxygen - Continuous Review of Systems See HPI for pertinent positives & negatives. and A total of 10 systems reviewed and were otherwise negative Physical Exam Vital Signs Vital Signs - 24 hr 09/18/20 14:46 09/18/20 16:14 09/18/20 16:30 Temperature 36.7 C Temperature Source Oral Pulse Rate 90 100 H 95 H Pulse Rate from SpO2 Sensor 101 H 91 H Respiratory Rate 18 18 19 Respiratory Effort / Characteristics Non-Labored Respiratory Depth Normal Blood Pressure 96/71 L 127/85 123/72 Blood Pressure Mean 79 99 89 Pulse Oximetry 97 100 98 Oxygen Delivery Method Room Air Sepsis Recent Fever Within 48 Hours No Sepsis New/Unexplained Change in Mental Status No Sepsis Action Taken by Nursing No Action Required GENERAL: alert, well appearing, well nourished, no distress, non-toxic EYE EXAM: normal conjunctiva, PERRL and EOM's grossly intact OROPHARYNX: no exudate, no erythema, lips, buccal mucosa, and tongue normal and mucous membranes are moist NECK: supple, no nuchal rigidity, no adenopathy, non-tender LUNGS: Clear to auscultation. Normal chest wall mechanics, no w/r/r HEART: no murmurs, S1 normal and S2 normal ABDOMEN: abdomen soft, non-tender, normo-active bowel sounds, no masses, no rebound or guarding. Ecchymotic region noted which he states is from an injection. Nontender. STates was there prior to his fall. BACK: Back is symmetrical on inspection and there is no deformity, no midline tenderness, no CVA tenderness. SKIN: no rashes and no bruising, chronic appearing skin changes to b/l forearms from IV starts and blood draws, chronic appearing skin changes b/l tib/fib region also UPPER EXTREMITIES: upper extremities are grossly normal. FROM, nml pulses b/l. LOWER EXTREMITIES: 3+ pitting edema. FROM RLE, nml pulses b/l. Pain with palpation over left hip with decr ROM due to pain. No pain with palpation of distal LLE. NEURO EXAM: Normal sensorium, cranial nerves II-XII grossly intact, normal speech, no gross weakness of arms, no gross weakness of legs. Gross sensation intact. Course Course 3272: Patient updated on results and plan. Patient has previously seen [facility] for an elbow surgery. Administered Medications Acetaminophen (Acetaminophen 325 Mg Tab) 650 mg PO Q4H PRN PRN Reason: Pain or Fever Stop: 10/18/20 21:16 Last Admin: 09/19/20 07:32 Dose: 650 mg Documented by: [id number] Acetylcysteine (Acetylcysteine 10% Inhal Soln 4 Ml Dispensed By Resp.) 3 ml INH BIDR RASHEL Stop: 10/18/20 21:16 Last Admin: 09/20/20 19:21 Dose: Not Given Documented by: [id number] Admin: 09/20/20 07:19 Dose: 3 ml Documented by: [id number] Admin: 09/19/20 19:48 Dose: 3 ml Documented by: [id number] Admin: 09/19/20 07:04 Dose: 3 ml Documented by: [id number] Admin: 09/18/20 22:15 Dose: 3 ml Documented by: [id number] Albuterol (Albuterol Hfa 8 Gm Inhaler (Combivent Respimat P&T Subs)) 1 puffs INH Q6R [facility] Stop: 10/18/20 21:44 Last Admin: 09/20/20 19:21 Dose: Not Given Documented by: [id number] Admin: 09/20/20 13:20 Dose: 1 puffs Documented by: [id number] Admin: 09/20/20 07:20 Dose: Not Given Documented by: [id number] Admin: 09/20/20 01:19 Dose: Not Given Documented by: [id number] Admin: 09/19/20 19:47 Dose: 1 puffs Documented by: [id number] Admin: 09/19/20 12:24 Dose: 1 puffs Documented by: [id number] Admin: 09/19/20 07:05 Dose: 1 puffs Documented by: [id number] Admin: 09/19/20 00:25 Dose: Not Given Documented by: [id number] Admin: 09/18/20 22:59 Dose: Not Given Documented by: [id number] Dextrose (Dextrose 50% 50 Ml Syringe) 25 - 50 ml IV UD PRN; Protocol PRN Reason: Hypoglycemia Protocol Stop: 10/18/20 21:44 Last Admin: 09/20/20 08:00 Dose: 25 ml Documented by: [id number] Digoxin (Digoxin 0.125 Mg Tab) 0.125 mg PO [id number] [facility] Stop: 10/20/20 15:59 Last Admin: 09/20/20 16:25 Dose: 0.125 mg Documented by: [id number] Ceftriaxone Sodium 2,000 mg/ (Dextrose) 70 mls @ 100 mls/hr IV Q24H [facility]; Protocol Stop: 09/28/20 21:59 Last Admin: 09/20/20 21:34 Dose: 100 mls/hr Documented by: [id number] Infusion: 09/19/20 22:14 Dose: 0 mls/hr Documented by: [id number] Admin: 09/19/20 21:22 Dose: 100 mls/hr Documented by: [id number] Infusion: 09/19/20 00:10 Dose: 0 mls/hr Documented by: [id number] Admin: 09/18/20 23:27 Dose: 100 mls/hr Documented by: [id number] Hydrocortisone Sodium (Succinate 25 mg/ Syringe) 0.5 mls @ 4 mls/min IV Q8H [facility] Stop: 09/21/20 08:01 Last Admin: 09/20/20 16:23 Dose: 4 mls/min Documented by: [id number] Dextrose/Sodium Chloride (D5w And Nss) 1,000 mls @ 50 mls/hr IV .Q20H [facility] Stop: 10/20/20 08:44 Last Infusion: 09/20/20 16:26 Dose: 0 mls/hr Documented by: [id number] Admin: 09/20/20 09:32 Dose: 50 mls/hr Documented by: [id number] Ropivacaine 150 mg/Bupivacaine HCl 20 ml/Epinephrine HCl 0.15 mg/Ketorolac Tromethamine 30 mg/Dexamethasone 4 mg/ Ketamine HCl 10 mg/ Clonidine HCl 100 mcg/ Sodium Chloride 88.35 mls @ 0 mls/hr INFIL TODAY@0600 [facility]; Protocol Stop: 09/21/20 06:01 Last Admin: 09/20/20 19:37 Dose: 93.35 mls/hr Documented by: [id number] Insulin Aspart (Insulin Aspart 100 Units/Ml 3 Ml Pen) 0 units SC Q4 RASHEL; Protocol Stop: 10/20/20 15:59 Last Admin: 09/20/20 21:16 Dose: Not Given Documented by: [id number] Admin: 09/20/20 16:47 Dose: Not Given Documented by: [id number] Cosigned by: [id number] Insulin Glargine (Insulin Glargine Solostar 100 Units/Ml 3 Ml Pen) 0 units SC BID@0800,1999 [facility]; Protocol Stop: 10/20/20 19:59 Last Admin: 09/20/20 21:17 Dose: Not Given Documented by: [id number] Ipratropium [place] (Ipratropium Hfa Inhaler (Combivent Respimat P&T Subs)) 1 puffs INH Q6R [facility] Stop: 10/18/20 21:44 Last Admin: 09/20/20 19:21 Dose: Not Given Documented by: [id number] Admin: 09/20/20 13:20 Dose: 1 puffs Documented by: [id number] Admin: 09/20/20 07:19 Dose: 1 puffs Documented by: [id number] Admin: 09/20/20 01:19 Dose: Not Given Documented by: [id number] Admin: 09/19/20 19:47 Dose: 1 puffs Documented by: [id number] Admin: 09/19/20 12:25 Dose: 1 puffs Documented by: [id number] Admin: 09/19/20 07:04 Dose: 1 puffs Documented by: [id number] Admin: 09/19/20 00:25 Dose: Not Given Documented by: [id number] Admin: 09/18/20 22:59 Dose: Not Given Documented by: [id number] Levalbuterol HCl (Levalbuterol Hcl 1.25 Mg/3 Ml Neb) 1.25 mg INH Q4H PRN PRN Reason: Shortnes of breath Stop: 10/18/20 21:16 Last Admin: 09/20/20 07:20 Dose: 1.25 mg Documented by: [id number] Admin: 09/18/20 22:14 Dose: 1.25 mg Documented by: [id number] Metoprolol Tartrate (Metoprolol Tartrate 50 Mg Tab) 50 mg PO BID [facility] Stop: 10/18/20 21:16 Last Admin: 09/20/20 10:08 Dose: 50 mg Documented by: [id number] Admin: 09/19/20 20:45 Dose: 50 mg Documented by: [id number] Admin: 09/19/20 08:27 Dose: 50 mg Documented by: [id number] Admin: 09/18/20 22:38 Dose: 50 mg Documented by: [id number] Morphine Sulfate (Morphine Sulfate 2 Mg/Ml Carp) 2 mg IV Q3H PRN PRN Reason: Pain Stop: 10/02/20 21:16 Last Admin: 09/19/20 08:38 Dose: 2 mg Documented by: [id number] Admin: 09/18/20 22:41 Dose: 2 mg Documented by: [id number] Simvastatin (Simvastatin 20 Mg Tab) 20 mg PO QPM RASHEL Stop: 10/18/20 21:16 Last Admin: 09/19/20 20:46 Dose: 20 mg Documented by: [id number] Admin: 09/18/20 22:37 Dose: 20 mg Documented by: [id number] Tamsulosin HCl (Tamsulosin Hcl 0.4 Mg Cap) 0.4 mg PO HS RASHEL Stop: 10/18/20 21:16 Last Admin: 09/19/20 20:46 Dose: 0.4 mg Documented by: [id number] Admin: 09/18/20 22:37 Dose: 0.4 mg Documented by: [id number] Torsemide (Torsemide 10 Mg Tab) 10 mg PO QAM [facility] Stop: 10/19/20 08:59 Last Admin: 09/19/20 08:27 Dose: 10 mg Documented by: [id number] Triamcinolone Acetonide (Triamcinolone Acet 0.1% Cr 15 Gm Tube) 1 appln TOP BID [facility] Stop: 10/18/20 21:16 Last Admin: 09/20/20 09:38 Dose: 1 appln Documented by: [id number] Admin: 09/19/20 20:46 Dose: 1 appln Documented by: [id number] Admin: 09/19/20 08:28 Dose: 1 appln Documented by: [id number] Admin: 09/18/20 22:38 Dose: 1 appln Documented by: [id number] Umeclidinium/Vilanterol (Umeclidinium/Vilanterol 62.5/25mcg 7 Puffs/Inhaler) 1 puffs INH QAM [facility] Stop: 10/19/20 08:59 Last Admin: 09/20/20 09:38 Dose: 1 puffs Documented by: [id number] Admin: 09/19/20 08:28 Dose: 1 puffs Documented by: [id number] Discontinued Medications Sodium Chloride (Nss 1000ml) 1,000 mls @ 150 mls/hr IV .Q6H40M [facility] Stop: 09/18/20 21:39 Last Infusion: 09/19/20 11:28 Dose: 0 mls/hr Documented by: [id number] Admin: 09/18/20 16:31 Dose: 150 mls/hr Documented by: [id number] Phytonadione 5 mg/ Sodium (Chloride) 50.5 mls @ 101 mls/hr IV ONE ONE Stop: 09/18/20 22:14 Last Infusion: 09/18/20 23:05 Dose: 0 mls/hr Documented by: [id number] Admin: 09/18/20 22:32 Dose: 101 mls/hr Documented by: [id number] Sodium Chloride (Nss 1000ml) 1,000 mls @ 75 mls/hr IV .[id number] [facility] Stop: 10/18/20 21:16 Last Infusion: 09/19/20 17:13 Dose: 0 mls/hr Documented by: [id number] Admin: 09/19/20 11:42 Dose: 75 mls/hr Documented by: [id number] Infusion: 09/19/20 11:42 Dose: 75 mls/hr Documented by: [id number] Admin: 09/18/20 22:31 Dose: 75 mls/hr Documented by: [id number] Hydrocortisone Sodium (Succinate 50 mg/ Syringe) 1 mls @ 4 mls/min IV NOW ONE Stop: 09/20/20 08:01 Last Admin: 09/20/20 08:49 Dose: 4 mls/min Documented by: [id number] Cefazolin Sodium (Ancef 2000mg) 2,000 mg in 15 mls @ 3.75 mls/min IV ONCE ONE Stop: 09/20/20 18:56 Last Admin: 09/20/20 18:29 Dose: 3.75 mls/min Documented by: [id number] Insulin Aspart (Insulin Aspart 100 Units/Ml 3 Ml Pen) 0 units SC ACHS [facility] Stop: 10/18/20 21:16 Last Admin: 09/19/20 08:29 Dose: 1 units Documented by: [id number] Cosigned by: [id number] Admin: 09/18/20 22:50 Dose: 4 units Documented by: [id number] Cosigned by: [id number] Insulin Aspart (Insulin Aspart 100 Units/Ml 3 Ml Pen) 0 units SC Q6 [facility] Stop: 10/19/20 11:59 Last Admin: 09/20/20 12:07 Dose: Not Given Documented by: [id number] Cosigned by: [id number] Admin: 09/20/20 05:47 Dose: Not Given Documented by: [id number] Cosigned by: [id number] Admin: 09/20/20 00:39 Dose: Not Given Documented by: [id number] Cosigned by: [id number] Admin: 09/19/20 18:03 Dose: 1 units Documented by: [id number] Cosigned by: [id number] Admin: 09/19/20 12:18 Dose: 1 units Documented by: [id number] Cosigned by: [id number] Insulin Glargine (Insulin Glargine Solostar 100 Units/Ml 3 Ml Pen) 10 units SC DAILY RASHEL Stop: 10/19/20 08:59 Last Admin: 09/20/20 08:43 Dose: Not Given Documented by: [id number] Admin: 09/19/20 08:27 Dose: 10 units Documented by: [id number] Cosigned by: [id number] Miscellaneous (Ortho Joint Anesthetic ) Confirm Administered Dose 1 ea .ROUTE .STK-MED ONE Stop: 09/20/20 18:01 Last Admin: 09/20/20 19:36 Dose: Not Given Documented by: [id number] Morphine Sulfate (Morphine Sulfate 2 Mg/Ml Carp) 2 mg IV Q1H PRN PRN Reason: Moderate Pain (Rating 3,4,5,6) Stop: 10/02/20 14:55 Last Admin: 09/18/20 16:15 Dose: 2 mg Documented by: [id number] Prednisone (Prednisone 10 Mg Tablet) 20 mg PO DAILY [facility]; Taper Stop: 10/24/20 08:59 Last Admin: 09/19/20 08:26 Dose: 20 mg Documented by: [id number] Medical Decision Making Differential Diagnosis Fracture, subluxation, dislocation, contusion, ligamentous injury, neurovascula r, compartment syndrome, rhabdomyolysis, as well as other pathologies. Medical Records Attestation: I reviewed the patient's medical records. Home Medications Current Medication List: was personally reviewed by me Laboratory Data Attestation: I reviewed the patient's lab results. Result diagrams: 09/19/20 07:13 09/19/20 07:13 Lab Results 09/18/20 09/18/20 09/18/20 Range/Units 15:16 15:16 15:16 WBC 9.20 (4.8-10.8) K/uL RBC 3.94 L (4.7-6.1) M/uL Hgb 10.4 L (14.0-18.0) g/dL Hct 34.1 L (42-52) % MCV 86.5 (80-100) fL MCH 26.4 (25-34) pg MCHC 30.5 L (32-36) g/dL RDW Std Deviation 53.5 H (36.4-46.3) fL RDW Coeff of Samira 16.8 H (11.5-14.5) % Plt Count 230 (130-400) K/uL MPV 9.4 (7.4-10.4) fL Immature Gran % (Auto) 1.1 % Neut % (Auto) 86.3 % Lymph % (Auto) 9.2 % [place] % (Auto) 3.4 % Eos % (Auto) 0.0 % Baso % (Auto) 0.0 % Neut # (Auto) 7.94 H (1.4-6.5) K/uL Lymph # (Auto) 0.85 L (1.2-3.4) K/uL [place] # (Auto) 0.31 (0.11-0.59) K/uL Eos # (Auto) 0.00 (0-0.5) K/uL Baso # (Auto) 0.00 (0-0.2) K/uL Immature Gran # (Auto) 0.10 H (0.00-0.02) K/uL PT 34.1 H (9.0-12.0) Seconds INR 3.7 H (0.9-1.1) APTT 36.5 H (21.0-31.0) Seconds PTT Ratio 1.4 Sodium (136-145) mmol/L Potassium (3.5-5.1) mmol/L Chloride (98-107) mmol/L Carbon Dioxide (21-32) mmol/L Anion Gap (3-11) BUN (7-18) mg/dl Creatinine (0.6-1.4) mg/dl Est Cr Clr Drug Dosing ml/min Est GFR ( Amer) ml/min Est GFR (Non-Af Amer) ml/min BUN/Creatinine Ratio (10-20) Glucose (70-99) mg/dl Calcium (8.5-10.1) mg/dl Total Bilirubin (0.2-1) mg/dl AST (15-37) U/L ALT (12-78) U/L Alkaline Phosphatase (45-117) U/L Total Protein (6.4-8.2) gm/dl Albumin (3.4-5.0) gm/dl Globulin (2.5-4.0) gm/dl Albumin/Globulin Ratio (0.9-2) COVID-19 Eval Order SARS-CoV-2 (PCR) (Negative) Blood Type O Positive Antibody Screen NEGATIVE 09/18/20 09/18/20 09/18/20 Range/Units 15:16 18:10 18:10 WBC (4.8-10.8) K/uL RBC (4.7-6.1) M/uL Hgb (14.0-18.0) g/dL Hct (42-52) % MCV (80-100) fL MCH (25-34) pg MCHC (32-36) g/dL RDW Std Deviation (36.4-46.3) fL RDW Coeff of Samira (11.5-14.5) % Plt Count (130-400) K/uL MPV (7.4-10.4) fL Immature Gran % (Auto) % Neut % (Auto) % Lymph % (Auto) % [place] % (Auto) % Eos % (Auto) % Baso % (Auto) % Neut # (Auto) (1.4-6.5) K/uL Lymph # (Auto) (1.2-3.4) K/uL [place] # (Auto) (0.11-0.59) K/uL Eos # (Auto) (0-0.5) K/uL Baso # (Auto) (0-0.2) K/uL Immature Gran # (Auto) (0.00-0.02) K/uL PT (9.0-12.0) Seconds INR (0.9-1.1) APTT (21.0-31.0) Seconds PTT Ratio Sodium 136 (136-145) mmol/L Potassium 3.9 (3.5-5.1) mmol/L Chloride 95 L (98-107) mmol/L Carbon Dioxide 36 H (21-32) mmol/L Anion Gap 5.0 (3-11) BUN 88 H (7-18) mg/dl Creatinine 2.23 H (0.6-1.4) mg/dl Est Cr Clr Drug Dosing 28.0 ml/min Est GFR ( Amer) 30.7 ml/min Est GFR (Non-Af Amer) 26.5 ml/min BUN/Creatinine Ratio 39.5 H (10-20) Glucose 282 H (70-99) mg/dl Calcium 9.2 (8.5-10.1) mg/dl Total Bilirubin 0.9 (0.2-1) mg/dl AST 12 L (15-37) U/L ALT 37 (12-78) U/L Alkaline Phosphatase 120 H (45-117) U/L Total Protein 6.1 L (6.4-8.2) gm/dl Albumin 2.8 L (3.4-5.0) gm/dl Globulin 3.3 (2.5-4.0) gm/dl Albumin/Globulin Ratio 0.8 L (0.9-2) COVID-19 Eval Order Covid19 at [facility] SARS-CoV-2 (PCR) NEGATIVE (Negative) Blood Type Antibody Screen Imaging Data Radiologist's Impression: Chest X-Ray 09/18/20 14:56 XR chest 1V portable HISTORY: 80 years-old Male fall acute chest trauma status post fall COMPARISON: Chest radiograph 09/09/2020, chest CT 10/09/2019 TECHNIQUE: Portable AP view of the chest FINDINGS: Cardiac silhouette is enlarged. Left subclavian pacer. Calcified plaque of the thoracic aorta with calcified pleural plaques redemonstrated. Round radiodense structure projecting over the lateral left midlung and left lung base are likely artifactual. There is improved aeration of the lungs with linear subsegmental bibasilar densities. Surgical suture material the right lung apex. Degenerative changes of the shoulders and spine. IMPRESSION: 1. Cardiomegaly without acute process. 2. Calcified pleural plaques with bibasilar atelectasis/scarring redemonstrated. ACT 112: Negative or not required by law. The above report was generated using voice recognition software. It may contain grammatical, syntax or spelling errors. Electronically signed by: Ken Magaña M.D. 09/18/2020 3:19 PM Hip/Pelvis X-Ray 09/18/20 14:56 XR hip LT 2V w pelvis HISTORY: 80 years-old Male fall, pain acute left-sided hip pain status post fall COMPARISON: None TECHNIQUE: AP view of the pelvis with 2 views of the left hip FINDINGS: Moderate osteoarthritis of the hips. There is an acute transcervical fracture of the left femoral neck with mild impaction and 10 mm medial displacement. Mild associated soft tissue swelling. No dislocation or avascular necrosis. Arterial calcifications. IMPRESSION: Acute mildly impacted and slightly displaced transcervical fracture of the left femoral neck. ACT 112: Negative or not required by law. The above report was generated using voice recognition software. It may contain grammatical, syntax or spelling errors. Electronically signed by: Ken Magaña M.D. 09/18/2020 3:[address] 09/18/20 15:43 CT head/brain wo con CLINICAL HISTORY: 80 years-old Male with fall, chi. Acute head injury status post fall TECHNIQUE: Multiple axial CT images of the head were obtained without contrast. A dose lowering technique was utilized adhering to the principles of ALARA. COMPARISON: CT cervical spine of same day, head CT 07/06/2019 FINDINGS: No acute intracranial hemorrhage, midline shift, intracranial mass, hydroc ephalus, territorial ischemia or abnormal extra-axial collection. Age-related involutional changes. Mild white matter hypodensities suggestive of chronic microvascular ischemic disease. Unchanged 1.4 cm hypodensity within the region of the inferior left lentiform nucleus suggestive of a prominent perivascular space. Chronic lacunar infarcts of the left basal ganglia. The calvarium is intact. Prior left temporal craniotomy. Postoperative changes of partial ethmoidectomy. Mastoid air cells are clear. Unremarkable soft tissues. Prior bilateral lens repair. IMPRESSION: No acute intracranial abnormality. ACT 112: Negative or not required by law. The above report was generated using voice recognition software. It may contain grammatical, syntax or spelling errors. Electronically signed by: Ken Magaña M.D. 09/18/2020 4:39 PM ECG Data Attestation: I personally reviewed and interpreted this ECG as follows: Indication: + weakness Rate (beats per minute): 94 Rhythm: + atrial fibrillation ECG Intervals/blocks: + Left anterior fascicular block ECG [place]: + Left axis deviation ECG ST segments: + Nonspecific ST abnormalities MDM Narrative This is an 80 yo male who presents following a fall at home. Patient states hx of dizziness/off balance which he felt precipitated fall today. Denies other new changes. Patient was recently hospitalized for CHF. Patient is anticoagulated. Pt and state he landed on his left side. He c/o pain at left hip only. Denies other injuries. states his head hit the driveway, however no LOC. CT reassuring. No other new evidence of trauma on exam. P atient with left hip fracture. Discussed need for inpatient mgmt and ortho evaluation. He verbalized understanding and was in agreement with the plan. I have a low suspicion for any occult traumatic injury. I do not suspect syncopal event. An order was placed for continuous cardiac monitoring. The monitor shows a rate of _94_ with _a.fib_ rhythm. Impression & Plan Acute pain of left hip, Supratherapeutic INR, Closed fracture of left hip, Fall, Paroxysmal atrial fibrillation, CKD (chronic kidney disease) stage 3, GFR 30-59 ml/min Discharge Plan Visit Data Chief Complaint: Fall Stated Complaint: Fall ED Provider: Fabiola Figueredo Discharge Problem: Acute pain of left hip, Supratherapeutic INR, Closed fracture of left hip, Fall, Paroxysmal atrial fibrillation, CKD (chronic kidney disease) stage 3, GFR 30-59 ml/min Patient Disposition: Admitted As Inpatient Discharge Instructions Interventions: ED Discharge Assessment Last Done: 09/18/20 21:14 Discharge Problem: Closed fracture of left hip Qualifiers: Encounter type: initial encounter Qualified Code(s): S72.002A - Fracture of unspecified part of neck of left femur, initial encounter for closed fracture Fall Qualifiers: Encounter type: initial encounter Qualified Code(s): W19.XXXA - Unspecified fall, initial encounter
[2020-09-18 15:47] LABS: Albumin Level 2.8 gm/dl (3.4-5.0); BUN Creatinine Ratio 39.5 (10-20); Calcium 9.2 mg/dl (8.5-10.1); Est GFR (African American) 30.7 ml/min; Est GFR (Non-African American) 26.5 ml/min; Potassium 3.9 mmol/L (3.5-5.1)
[2020-09-18 15:48] LABS: INR 3.7 (0.9-1.1); Partial Thromboplastin Ratio 1.4; Partial Thromboplastin Time 36.5 Seconds (21.0-31.0); Prothrombin Time 34.1 Seconds (9.0-12.0)
[2020-09-18 15:50] LABS: Albumin Globulin Ratio 0.8 (0.9-2); Bilirubin,Total 0.9 mg/dl (0.2-1); Globulin 3.3 gm/dl (2.5-4.0); Total Protein 6.1 gm/dl (6.4-8.2)
--- NOTE | 2020-09-18 16:40 | CT Scan Report ---
CT head/brain wo con CLINICAL HISTORY: 80 years-old Male with fall, chi. Acute head injury status post fall TECHNIQUE: Multiple axial CT images of the head were obtained without contrast. A dose lowering tech nique was utilized adhering to the principles of ALARA. COMPARISON: CT cervical spine of same day, head CT 07/06/2019 FINDINGS: No acute intracranial hemorrhage, midline shift, intracranial mass, hydrocephalus, territorial ischem ia or abnormal extra-axial collection. Age-related involutional changes. Mild white matter hypodensit ies suggestive of chronic microvascular ischemic disease. Unchanged 1.4 cm hypodensity within the reg ion of the inferior left lentiform nucleus suggestive of a prominent perivascular space. Chronic lacu denys infarcts of the left basal ganglia. The calvarium is intact. Prior left temporal craniotomy. Postoperative changes of partial ethmoidecto my. Mastoid air cells are clear. Unremarkable soft tissues. Prior bilateral lens repair. IMPRESSION: No acute intracranial abnormality. ACT 112: Negative or not required by law. The above report was generated using voice recognition software. It may contain grammatical, syntax o r spelling errors. Electronically signed by: Ken Magaña M.D. 09/18/2020 4:39 PM
--- NOTE | 2020-09-18 16:50 | CT Scan Report ---
CT cervical spine wo con CT DOSE: 967.12 mGy.cm CLINICAL HISTORY: 80 years-old Male with fall, chi. Acute head and neck injury status post fall COMPARISON: CT soft tissue neck 05/07/2018 TECHNIQUE: Multiple axial CT images of the cervical spine were obtained without contrast. A dose low ering technique was utilized adhering to the principles of ALARA. FINDINGS: Chronic C5 compression deformity is unchanged from comparison. Demineralized appearance of the bones. Multilevel intervertebral disc space narrowing, moderate at C3-C4 and severe at C6-C7 and C7-T1. Mil d to moderate multilevel facet arthrosis. Severe degeneration at C1-C2. No acute fracture or subluxat ion. Multilevel neuroforaminal narrowing. Trace left mastoid effusion. Biapical pleural-parenchymal scarring with emphysema. Calcified plaque o f the carotid bulbs. No prevertebral edema. IMPRESSION: No acute cervical spine fracture or subluxation. ACT 112: Negative or not required by law. The above report was generated using voice recognition software. It may contain grammatical, syntax o r spelling errors. Electronically signed by: Ken Magaña M.D. 09/18/2020 4:49 PM
[2020-09-18 19:39] LABS: Appearance Urine Clear (Clear); Bacteria Urine Automated Negative (Negative); Bilirubin Urine Negative (Negative); Blood Urine Negative (Negative); Color Urine Yellow; Glucose Urine UA 2+ (Negative); Ketones Urine Negative (Negative); Leukocyte Esterase Urine 2+ (Negative); Nitrite Urine Negative (Negative); Protein Urine Trace (Negative); RBC Urine Automated 0-4 /hpf (0-4); Specific Gravity Urine 1.018 (1.000-1.030); Urobilinogen Urine Negative (Negative)
--- NOTE | 2020-09-18 20:17 | Hospitalist Progress Note ---
Date of Service September 18, 2020 Subjective Possible uti. Will follow cx. Empiric rocephin. Results & Data Results & Data ([facility]) Vital Signs (Past 12 Hours) Vital Signs Temp Pulse Resp BP Pulse Ox 09/18/20 20:00 95 H 11 L 110/89 09/18/20 19:30 105 H 15 136/89 100 09/18/20 19:00 90 11 L 136/84 97 09/18/20 18:32 90 16 98 09/18/20 18:31 98 H 13 106/68 98 09/18/20 18:00 99 H 12 93/75 L 98 09/18/20 17:30 98 H 19 124/78 97 09/18/20 17:00 92 H 16 132/82 100 09/18/20 16:30 95 H 19 123/72 98 09/18/20 16:14 100 H 18 127/85 100 09/18/20 14:46 36.7 C 90 18 96/71 L 97
[2020-09-18] MEDS ORDERED: POLYETHYLENE (MIRALAX) 17 GM PACK PO PRN (21:17)
[2020-09-18] MEDS ORDERED: NITROGLYCERIN SL 0.4 MG/TAB TAB SL PRN ×2 (21:17)
[2020-09-18] MEDS ORDERED: ONDANSETRON INJ 2 MG/ML 2 ML VIAL IV PRN (21:17)
[2020-09-18] MEDS ORDERED: IPRATROPIUM BROMIDE NEB SOLN 0.02% 2.5 ML VIAL INH PRN (21:17)
[2020-09-18] MEDS ORDERED: ACETAMINOPHEN 325 MG TAB PO PRN (21:17)
[2020-09-18] MEDS ORDERED: hydrOXYzine HCl 10 MG TAB PO PRN (21:17)
[2020-09-18] MEDS ORDERED: IPRATROPIUM BROMIDE/ALBUTEROL respimat INH INH SCH (21:17)
[2020-09-18] MEDS ORDERED: FLUTICASONE PROPIONATE NA SPR 16 GM BTL PRN (21:39)
[2020-09-18] MEDS ORDERED: PHYTONADIONE 5 MG in SODIUM CHLORIDE 0.9% 50 ML IV ONE (21:45)
[2020-09-18] MEDS ORDERED: GLUCAGON FOR INJ 1 MG VIAL IM PRN (21:45)
[2020-09-18] MEDS ORDERED: CARBOHYDRATES FOR HYPOGLYCEMIA PO PRN (21:45)
[2020-09-18] MEDS ORDERED: GLUCOSE 40% GEL 15 GM TUBE PO PRN (21:45)
[2020-09-18] MEDS ORDERED: DEXTROSE 50% 50 ML SYRINGE IV PRN (21:45)
[2020-09-18] MEDS ORDERED: GLUCOSE 10 TABS/TUBE PO PRN (21:45)
[2020-09-18] MEDS: LEVALBUTEROL HCL 1.25 MG/3 ML NEB INH PRN (22:14)
[2020-09-18] MEDS: ACETYLCYSTEINE 10% INHAL SOLN 4 ML **DISPENSED BY RESP. INH SCH (22:15)
[2020-09-18] MEDS: SODIUM CHLORIDE 0.9% 1000ML 1,000 ML IV SCH (22:31)
[2020-09-18] MEDS: TAMSULOSIN HCL 0.4 MG CAP PO SCH (22:37)
[2020-09-18] MEDS: SIMVASTATIN 20 MG TAB PO SCH (22:37)
--- NOTE | 2020-09-18 22:37 | History and Physical Report ---
DATE OF ADMISSION: 09/18/2020 CHIEF COMPLAINT: Status post fall and left hip fracture. HISTORY OF PRESENT ILLNESS: This is an 80-year-old male with past medical history significant for type 1 diabetes, hypothyroidism, hyperlipidemia, diabetic peripheral neuropathy, chronic respiratory failure, COPD, history of bronchiectasis, nocturnal hypoxemia, interstitial lung disease, asbestosis, pneumoconiosis, hypertension, paroxysmal atrial fibrillation, tachybrady syndrome, status post pacemaker, chronic kidney disease stage III, history of NM, history of GERD, history of BPH, chronic stasis dermatitis, anemia of chronic kidney disease, who presents with fall and left hip fracture. The patient lives at home with his . He can get around the house okay. Sometimes he uses walker and, sometimes does not use walker. He was walking in his driveway today without walker when he suddenly felt dizzy. Sometimes he feels dizziness that lasts for a few moments.Today when he felt dizzy he tried to hold on, but he could not find anything to hold and he fell down on his left hip and also slightly hit his head, but there is no headache, no injury to head. No loss of consciousness. No chest pain. He has chronic shortness of breath, but no change . No cough, no fever, no chills. Currently denies any headache, no blurred vision, no runny nose, no sore throat. Appetite is good. No nausea, no abdominal pain. Normal bowel and bladder movements. In the ER, imaging studies shows a left hip fracture. The patient was recently in the hospital with acute on chronic respiratory failure requiring steroids and antibiotics. He today took 30 mg of prednisone today, tomorrow is supposed to take 20 mg for 5 days and after that to continue with 10 mg daily. He is done with antibiotics.Last admission he was also treated for acute on chronic diastolic heart failure with IV Lasix. At home, he is on 10 mg of torsemide, but as per outpatient notes on 09/16, he took a few days of 20mg of torsemide with improvement in lower extremity edema .He follows with pulmonary, Dr. Johansen, and currently using BiPAP in the nighttime with oxygen and as per pulmonary, he has poor prognosis. He also follows with cardiology. Palliative care was consulted last admission, but currently the patient wants to be a full code. He says when he is resting, there is no pain in the left hip, but when he moves, there is significant pain. The patient is alert and oriented and able to give history. ALLERGIES: DILTIAZEM, BREO-ELLIPTA, ASPIRIN, LISINOPRIL, PROPOXYPHENE. PAST MEDICAL HISTORY: As mentioned above. PAST SURGICAL HISTORY: Colonoscopy, head surgery, needle punch biopsy of prostate, removal of nose polyps, repair of inguinal hernia. MEDICATIONS: Currently, the patient is on acetylcysteine 10% solution 3 mL inhalation b.i.d., Anoro Ellipta 1 inhalation a.m., digoxin 125 mcg 3 times a week, Flonase 2 sprays intranasally daily p.r.n., hydroxyzine 10 mg p.o. q.8 hours p.r.n., NovoLog 4-6 units subcutaneously t.i.d., Combivent 1 puff q. 6 hours, ipratropium bromide 2.5 mL inhalation q.i.d. p.r.n. levalbuterol 1.25 mg inhalation q. 4 hours p.r.n., Lantus 22 units subcutaneously a.m., metoprolol tartrate 50 mg p.o. b.i.d., Nitrostat 0.4 mg sublingual p.r.n., prednisone -- on tapering dose, from tomorrow 20 mg daily, simvastatin 20 mg p.o. p.m., Flomax 0.4 mg p.o. at bedtime, torsemide 10 mg p.o. a.m., triamcinolone topical cream b.i.d., warfarin 1.25 mg p.o. on Sundays, Tuesdays, Wednesdays, , Fridays and Saturdays and warfarin 2.5 mg p.o. on Sunday. FAMILY HISTORY: Significant for brother has asthma, diabetes. Daughter has cancer. Father had esophageal ulcers. Uncle has stroke. SOCIAL HISTORY: . Former smoker, smoked 2 packs a day for 40 years. Alcohol, 2 cans of beer per week. No drug use. REVIEW OF SYMPTOMS: As per HPI. Rest of the review of systems is negative. PHYSICAL EXAMINATION: GENERAL: The patient is of moderate build, currently not in acute distress. VITAL SIGNS: Temperature 36.6, pulse 98, respiratory rate 13, blood pressure 106/68, oxygen 98% on room air. HEENT: Pupils equal, round, and reactive to light. Oral mucosa moist. NECK: No JVD. No neck masses. CARDIOVASCULAR: S1, S2 heard, regular rate and rhythm, no murmur, no gallop. RESPIRATORY SYSTEM: Normal AP diameter. No accessory muscle use. No wheezing, no crackles. ABDOMEN: Soft, bowel sounds present, nontender. No distention. CENTRAL NERVOUS SYSTEM: Alert and oriented. Speech clear, no facial droop. Obeys commands. EXTREMITIES: Left lower extremity is shortened and externally rotated. No significant edema seen. LABORATORY DATA: WBC 9.2, hemoglobin 10.4, hematocrit 34.1, platelets 230. PT 34.1, INR 3.7, APTT 36.5. Sodium 136, potassium 3.9, chloride 95, bicarbonate 36, BUN 88, creatinine 2.2, serum glucose 282, calcium 9.2, total bilirubin 0.9, AST 12, ALT 37, alkaline phosphatase 120, total protein 6.1. SARS-CoV-2 PCR is pending. IMAGING: CT of the head: No acute intracranial abnormalities seen. Cervical spine CT: No acute cervical spine fracture or subluxation. Hip or pelvis x-ray: Acute mildly impacted and slightly displaced transcervical fracture of the left femoral neck. Chest x-ray: Cardiomegaly without acute process. Calcified pleural plaques with bibasilar atelectasis. EKG: Atrial fibrillation, rate 94. Incomplete right bundle branch block, nonspecific ST abnormalities seen. ASSESSMENT AND PLAN: This is an 80-year-old male with history of chronic respiratory failure, chronic obstructive pulmonary disease, history of bronchiectasis, diabetes, chronic kidney disease stage III, history of atrial fibrillation, tachybrady syndrome, status post pacemaker, diastolic congestive heart failure, presents with fall and left hip fracture. 1. Mechanical fall, left hip fracture. The patient has multiple comorbid conditions with diastolic congestive heart failure, chronic obstructive pulmonary disease and bronchiectasis.Asbestosis pneumoconiosis He recently had a chronic obstructive pulmonary disease bronchiectasis flare and acute diastolic congestive heart failure and also acute kidney injury. Recently he had pseudomonas pneumonia, currently using BiPAP at night and as per pulmonary, he has poor prognosis. Because of multiple comorbid conditions, patient has been at high risk for any procedure. We will consult pulmonary and cardiology for preoperative evaluation. We will keep the patient n.p.o. after midnight, admit to med-telemetry and orthopedics consult in the a.m. 2. Chronic respiratory failure, chronic obstructive pulmonary disease, history of bronchiectasis, interstitial lung disease, asbestosis, pneumoconiosis, uses oxygen at night with BiPAP. Currently seems stable. Continue home inhalers and nebulizers p.r.n. and consult pulmonary for optimizing the management prior to the procedure. 3. History of diastolic congestive heart failure. Recently took extra dose of torsemide for increased lower extremity edema, currently on torsemide 10 mg daily at home and digoxin, which we will continue. The patient is getting gentle fluids. Monitor for volume overload. Consult cardiology for further optimizing medical management prior to procedure. Continue his Lopressor. 4. History of paroxysmal atrial fibrillation, tachybrady syndrome, status post pacemaker, on metoprolol and digoxin, which we will continue with holding parameters. On Coumadin. INR is supratherapeutic at 3.7. Getting IV vitamin K for procedure tomorrow. Follow PT/INR and restart coumadin whenever able to. 5. History of diabetes. We will cut back on Lantus to 10 units subcutaneously in the a.m. as the patient is currently n.p.o. after midnight and continue insulin sliding scale. Follow hemoglobin A1c levels, follow the blood sugars. 6. Acute kidney injury on chronic kidney disease stage III, baseline creatinine seems to be around 1.7, creatinine was 2 at the time of discharge last admission, it is currently 2.2. Avoid nephrotoxic agents. Getting fluids. If further worsens, we will hold the torsemide and consult nephrology. 7. Deep vein thrombosis prophylaxis. INR 3.7. Follow the PT/INR. The patient is getting vitamin K and for the anticoagulation, restart Coumadin whenever able to. DISPOSITION: Closely monitor in med-tele. Code status, level 1 full code as per my discussion with the patient. PT and OT prior to discharge. Social service to help with discharge planning. ALBERT
[2020-09-18] MEDS: METOPROLOL TARTRATE 50 MG TAB PO SCH (22:38)
[2020-09-18] MEDS: TRIAMCINOLONE ACET 0.1% CR 15 GM TUBE TOP SCH (22:38)
[2020-09-18] MEDS: MoRPHine SULFATE 2 MG/ML CARP IV PRN (22:41)
[2020-09-18] MEDS: INSULIN ASPART 100 UNITS/ML 3 ML PEN SC SCH (22:50)
[2020-09-18] MEDS: Ipratropium HFA Inhaler (Combivent Respimat P&T Subs) INH SCH (22:59)
[2020-09-18] MEDS: Albuterol HFA 8 GM Inhaler (Combivent Respimat P&T Subs) INH SCH (22:59)
--- NOTE | 2020-09-18 23:25 | Hospitalist Progress Note ---
Date of Service September 18, 2020 Assessment & Plan Admission and Anticipated Discharge Date Admission Date: September 18, 2020 Subjective May need stress dose steroids when surgery planned surgery. Results & Data Results & Data ([facility]) Vital Signs (Past 12 Hours) Vital Signs Temp Pulse Pulse Resp BP BP Pulse Ox 09/18/20 22:58 85 18 96 09/18/20 22:18 93 H 18 95 09/18/20 21:18 36.3 C L 97 H 18 136/89 93 09/18/20 20:00 95 H 11 L 110/89 09/18/20 19:30 105 H 15 136/89 100 09/18/20 19:00 90 11 L 136/84 97 09/18/20 18:32 90 16 98 09/18/20 18:31 98 H 13 106/68 98 09/18/20 18:00 99 H 12 93/75 L 98 09/18/20 17:30 98 H 19 124/78 97 09/18/20 17:00 92 H 16 132/82 100 09/18/20 16:30 95 H 19 123/72 98 09/18/20 16:14 100 H 18 127/85 100 09/18/20 14:46 36.7 C 90 18 96/71 L 97
[2020-09-18] MEDS: cefTRIAXone SODIUM 2,000 MG in DEXTROSE 5% 50 ML IV SCH (23:27)
[2020-09-19] MEDS: Ipratropium HFA Inhaler (Combivent Respimat P&T Subs) INH SCH ×4 (00:25→19:47)
[2020-09-19] MEDS: Albuterol HFA 8 GM Inhaler (Combivent Respimat P&T Subs) INH SCH ×4 (00:25→19:47)
--- NOTE | 2020-09-19 06:30 | Electrocardiogram Report ---
Test Reason : Blood Pressure : / mmHG Vent. Rate : 094 BPM Atrial Rate : 104 BPM P-R Int : 000 ms QRS Dur : 114 ms QT Int : 364 ms P-R-T Axes : 000 -63 -79 degrees QTc Int : 455 ms Atrial fibrillation Incomplete right bundle branch block Left anterior fascicular block Abnormal ECG When compared with ECG of 12-SEP-2020 05:52, Nonspecific T wave abnormality, improved in Lateral leads Confirmed by Kvng Teran ([id number]) on 09/19/2020 6:30:09 AM Referred By: ER Confirmed By:Kvng Teran
[2020-09-19] MEDS: ACETYLCYSTEINE 10% INHAL SOLN 4 ML **DISPENSED BY RESP. INH SCH ×2 (07:04→19:48)
[2020-09-19 07:51] LABS: Eosinophils # (auto) 0.01 K/uL (0-0.5); Eosinophils % (auto) 0.1 %; Hematocrit (blood only) 36.4 % (42-52); Hemoglobin 11.1 g/dL (14.0-18.0); Immature Granulocytes # (auto) 0.08 K/uL (0.00-0.02); Immature Granulocytes % (auto) 0.7 %; Lymphocytes # (auto) 1.15 K/uL (1.2-3.4); Mean Corpuscular Hemoglobin 26.4 pg (25-34); Mean Corpuscular Hgb Conc 30.5 g/dL (32-36); Mean Corpuscular Volume 86.7 fL (80-100); Mean Platelet Volume 9.8 fL (7.4-10.4); Monocytes # (auto) 0.97 K/uL (0.11-0.59); Monocytes % (auto) 8.5 %; Neutrophils # (auto) 9.25 K/uL (1.4-6.5); Neutrophils % (auto) 80.7 %; Platelet Count 243 K/uL (130-400); RDW Coefficient of Variation 16.8 % (11.5-14.5); RDW Standard Deviation 53.6 fL (36.4-46.3); White Blood Count 11.46 K/uL (4.8-10.8)
[2020-09-19 07:58] LABS: INR 1.7 (0.9-1.1); Prothrombin Time 16.9 Seconds (9.0-12.0)
[2020-09-19 08:15] LABS: BUN Creatinine Ratio 44.5 (10-20); Calcium 9.2 mg/dl (8.5-10.1); Creatinine Clr Calc Pharmacy 41.1 ml/min; Est GFR (African American) 48.8 ml/min; Est GFR (Non-African American) 42.1 ml/min; Potassium 4.1 mmol/L (3.5-5.1)
[2020-09-19] MEDS: TORSEMIDE 10 MG TAB PO SCH (08:27)
[2020-09-19] MEDS: METOPROLOL TARTRATE 50 MG TAB PO SCH ×2 (08:27→20:45)
[2020-09-19] MEDS: INSULIN GLARGINE SOLOSTAR 100 UNITS/ML 3 ML PEN SC SCH (08:27)
[2020-09-19] MEDS: UMECLIDINIUM/VILANTEROL 62.5/25MCG 7 PUFFS/INHALER INH SCH (08:28)
[2020-09-19] MEDS: TRIAMCINOLONE ACET 0.1% CR 15 GM TUBE TOP SCH ×2 (08:28→20:46)
[2020-09-19] MEDS: INSULIN ASPART 100 UNITS/ML 3 ML PEN SC SCH ×3 (08:29→18:03)
[2020-09-19] MEDS: MoRPHine SULFATE 2 MG/ML CARP IV PRN (08:38)
[2020-09-19] MEDS ORDERED: Nursing to Pharmacy Communication SCH (08:45)
[2020-09-19] MEDS ORDERED: predniSONE 10 MG TABLET PO SCH (09:00)
--- NOTE | 2020-09-19 10:25 | Orthopedic Consultation ---
Date of Consultation September 19, 2020 Assessment & Plan (1) Left displaced femoral neck fracture: He has a left hip displaced femoral neck fracture. This will require a hip hemiarthroplasty to restore the ability to ambulate. Unfortunately, he is a very high risk surgical candidate. The biggest impediment to the surgery in the near term is his Coumadin anticoagulation. He had a surprisingly rapid drop in his INR from 3.7 down to 1.7 overnight, but this is still too high to safely proceed with a large hip hemiarthroplasty surgery. His INR needs to be down more in the 1.3 range to safely proceed with surgery, especially with his preoperative chronic anemia. He has multiple other severe medical problems that make his surgery high risk both in the near and long-term. His femoral cortices are relatively thin, and he may require a cemented hip hemiarthroplasty. This increases the risk of intraoperative , especially with his relatively severe cardiac and pulmonary disease. His albumin is very low, indicative of chronic malnutrition, and his hemoglobin A1c is quite high, indicative of chronically poorly controlled diabetes. These things significantly increase his risk of wound problems and postoperative infection. This was all explained in detail to him, and he accepts the risks of surgery. We will plan for a hip hemiarthroplasty once his INR is down in a safe range and he is optimized and cleared for surgery from a medicine perspective. Present on Admission?: Yes History of Present Illness Reason for Consultation: Left hip fracture Attending Physician: Gurdeep Rucker MD History of Present Illness Mr. Plata is an 80-year-old male with multiple severe medical problems, including poorly controlled diabetes, fairly severe lung disease including COPD and interstitial lung disease with chronic shortness of breath on chronic oxygen 2 to 3 L, tracheobronchomalacia, coronary artery disease with a history of a myocardial infarction and a pacemaker, atrial fibrillation on Coumadin anticoagulation, heart failure, stage III chronic kidney disease. He was just discharged from the hospital last week for acute on chronic respiratory failure requiring steroids and antibiotics. He had a ground-level fall yesterday when he felt dizzy while walking. He was not using his walker at the time. He denies a complete loss of consciousness. He had immediate pain and inability to bear weight on his left leg. Allergies Allergy/AdvReac Type Severity Reaction Status Date / Time diltiazem Allergy Mild rash Verified 09/18/20 15:42 fluticasone furoate AdvReac Intermediate Joint Pain Verified 09/18/20 15:42 [From Breo Ellipta] vilanterol AdvReac Intermediate Joint Pain Verified 09/18/20 15:42 [From Breo Ellipta] aspirin AdvReac Mild GI symptoms Verified 09/18/20 15:42 lisinopril AdvReac Mild cough Verified 09/18/20 15:42 propoxyphene AdvReac Mild GI upset, Verified 09/18/20 15:42 diarrhea Home Medications Medication Instructions Recorded Confirmed Type Flonase Sensimist 2 spray INTRANASAL DAILY PRN 07/03/18 09/18/20 History Lantus Solostar U-100 Insulin 20 - 22 unit SUBCUT QAM 07/03/18 09/18/20 History insulin aspart U-100 [Novolog 4 - 6 unit SUBCUT TID 07/03/18 09/18/20 History Flexpen U-100 Insulin] nitroglycerin [Nitrostat] 0.4 mg SUBLINGUAL UD PRN 07/03/18 09/18/20 History simvastatin [Zocor] 20 mg PO QPM 07/03/18 09/18/20 History tamsulosin [Flomax] 0.4 mg PO HS 07/03/18 09/18/20 History warfarin 2.5 mg tablet 2.5 mg PO MO 01/10/19 09/18/20 History levalbuterol HCl 1.25 mg INHALATION Q4H PRN 04/20/20 09/18/20 History metoprolol tartrate 50 mg PO BID 04/20/20 09/18/20 History warfarin 1.25 mg PO SUTUWETHFRSA 04/20/20 09/18/20 History digoxin 125 mcg (0.125 mg) tablet 125 mcg PO 3XWK tab 07/12/20 09/18/20 History acetylcysteine 100 mg/mL (10 %) 3 ml INHALATION BID #180 ml 07/22/20 09/18/20 Rx solution Anoro Ellipta 1 inh INHALATION QAM 08/13/20 09/18/20 History triamcinolone acetonide 0.1 % 1 applic TOPICAL BID #15 g 08/24/20 09/18/20 Rx topical cream ipratropium 20 mcg-albuterol 100 1 puff INHALATION Q6H #3 inhaler 08/31/20 09/18/20 Rx mcg/actuation mist for inhalation hydroxyzine HCl 10 mg PO Q8H PRN 09/09/20 09/18/20 History ipratropium bromide 2.5 ml INHALATION QID PRN 09/09/20 09/18/20 History torsemide 10 mg PO QAM 09/09/20 09/18/20 History doxycycline hyclate 100 mg PO BID #6 cap 09/13/20 09/18/20 Rx prednisone 10 mg PO UD #30 tab 09/13/20 09/18/20 Rx Patient History Medical History Anemia felt d/t chronic disease, hgb baseline 10-12 range per chart review Atrial fibrillation paroxysmal- on coumadin BPH (benign prostatic hypertrophy) CKD (chronic kidney disease) stage 3, GFR 30-59 ml/min COPD (chronic obstructive pulmonary disease) Diabetes type I Dyslipidemia per records Elbow fracture, right current issue s/p fall at home GERD (gastroesophageal reflux disease) r/t inhalers Interstitial lung disease Nocturnal hypoxemia 2L O2 HS 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)/last check 06/09/19 Palliative care encounter Pulmonary embolism remote hx Skin cancer left elbow region Weakness Surgical History H/O basal cell carcinoma excision REMOVED FROM NOSE H/O hand surgery LEFT MIDDLE FINGER FX REPAIR H/O inguinal hernia repair H/O nasal polypectomy History of bronchoscopy History of cataract surgery RT/LEFT History of colonoscopy History of inguinal hernia repair History of lung biopsy robotic thoracoscopy, pleural biopsy: 08/09/16: Grade view 1, MAC#3 at [facility] History of surgery of head "correct skull abnormality- left temporoparietal ; 1992" History of tooth extraction Status post placement of cardiac pacemaker Family History Brother Diabetes Son Diabetes Family hx of colon cancer Other Heart disease Social History Smoking Status: Former smoker Second Hand Exposure: No; Hx Alcohol Use: Yes Alcohol type: beer Hx Substance Use: No Preferred Language: Tajik Communication Ability: Effective Visual Impairment: No Limitations Paring Machine Operator Required: No Beliefs That Will Affect Care: None marital status: Current Living Situation: Spouse Current Living Situation Comment: at home Other Information That Helps Us Care for You: No Feels Safe at Home: Yes Safety Concerns: Feels Safe At This Time Assistive Devices: Cane, Denture - Upper, Denture - Lower and Walker Physical Exam Physical Exam: Examination of the left hip shows no open wounds. There is shortening and external rotation of the leg. There is mild swelling and tenderness to palpation of the thigh and hip area. Compartments are soft and compressible. Intact ankle dorsiflexion and plantarflexion. His skin in bilateral lower extremities show obvious chronic venous stasis changes. Results & Data ([facility]) Vital Signs (Past 12 Hours) Vital Signs Temp Pulse Pulse Resp BP Pulse Ox 09/19/20 07:49 36.3 C L 88 20 133/77 99 09/19/20 07:12 61 18 91 09/19/20 07:00 90 09/19/20 04:00 35.5 C L 91 H 18 137/86 100 09/19/20 03:19 89 15 93 09/18/20 22:58 85 18 96 09/18/20 22:50 36.6 C 107 H 18 117/79 97 Laboratory Results H/H low at 10.4/34.1 INR 3.7-->1.7 (0700 09/19) Cr 2.23 Hbg A1c 9.2 (09/10) Albumin 2.8 Diagnostic Findings Left hip X-rays show a displaced left femoral neck fracture. Minimal hip joint arthritis. Relatively wide femoral canal with cortical thinning.
--- NOTE | 2020-09-19 11:26 | Pulmonary Consultation ---
Date of Consultation September 19, 2020 Assessment & Plan (1) Acute on chronic respiratory failure with hypoxia and hypercapnia: Impression: 80-year-old male on chronic prednisone therapy and nocturnal AVAPS therapy with PFTs showing severe airflow obstruction admitted status post fall with nondisplaced hip fracture. Recommendations: 1. From a pulmonary standpoint, the patient appears optimized and would not recommend additional diagnostic testing at this point time before proceeding with surgery. The best thing he can do from a lung standpoint is to get up and be mobile, which will require repair of his hip fracture. 2. The patient was advised to have his bring in his home AVAPS unit and use it in the perioperative and postoperative settings. Judicious use of pain medications which may suppress respirations as recommended. Would defer to anesthesia but potential hip arthroplasty using local regional anesthesia may be preferential to general anesthetic technique. 3. Continue oxygen titrated to keep saturations at or above 88%. 4. Continue bronchodilators. 5. Patient has been on chronic prednisone therapy. This could have aggravated the patient's hip fracture as he had significant cortical thinning noted. Recommend decreasing him down to 10 mg a day. Consideration for stress dose steroids in the perioperative and postoperative period may be appropriate. He can follow-up with Dr. Johansen in the outpatient setting to determine whether or not long-term prednisone is required or not. From a pulmonary perspective, I think the patient can tolerate surgical repair of his hip fracture and this is in his best long-term pulmonary interest. He is at an increased risk of complications including postoperative atelectasis, pneumonia, and respiratory failure. Again I think the benefits of repair of his hip fracture significantly outweigh the risks and would recommend proceeding from a pulmonary standpoint at this time. Pulmonary is available to assist in postoperative management of this patient if needed. Feel free to contact us with questions History of Present Illness Attending Physician: Gurdeep Rucker MD History of Present Illness Asked by the hospitalist to evaluate this patient for preoperative pulmonary evaluation prior to undergoing hip arthroplasty. History is obtained from review the electronic medical record and discussion with patient at bedside. This 80-year-old male is followed in the outpatient setting by Dr. Johansen for COPD, tracheobronchial malacia, diastolic heart failure, chronic hypoxemic resp iratory failure, and hypercarbic respiratory failure. 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 He is also recently been started on nocturnal AVAPS. He has a history of Pseudomonas from the lung last recovered March 2020 but cultures from September 10 showed no growth to date. The patient suffered a ground-level fall. This resulted in a hip fracture. He was admitted to the medicine service. He is been seen by orthopedics. They plan on taking him to the OR soon as his INR is stable. Pulmonary is consulted for preoperative pulmonary evaluation. Patient states that he is doing well from a respiratory standpoint. He feels that his breathing is at baseline. He is not coughing or expectorating phlegm. No significant wheezing. He denies chest pain palpitations or significant progression in his shortness of breath. Allergies Allergy/AdvReac Type Severity Reaction Status Date / Time diltiazem Allergy Mild rash Verified 09/18/20 15:42 fluticasone furoate AdvReac Intermediate Joint Pain Verified 09/18/20 15:42 [From Breo Ellipta] vilanterol AdvReac Intermediate Joint Pain Verified 09/18/20 15:42 [From Breo Ellipta] aspirin AdvReac Mild GI symptoms Verified 09/18/20 15:42 lisinopril AdvReac Mild cough Verified 09/18/20 15:42 propoxyphene AdvReac Mild GI upset, Verified 09/18/20 15:42 diarrhea Home Medications Medication Instructions Recorded Confirmed Type Flonase Sensimist 2 spray INTRANASAL DAILY PRN 07/03/18 09/18/20 History Lantus Solostar U-100 Insulin 20 - 22 unit SUBCUT QAM 07/03/18 09/18/20 History insulin aspart U-100 [Novolog 4 - 6 unit SUBCUT TID 07/03/18 09/18/20 History Flexpen U-100 Insulin] nitroglycerin [Nitrostat] 0.4 mg SUBLINGUAL UD PRN 07/03/18 09/18/20 History simvastatin [Zocor] 20 mg PO QPM 07/03/18 09/18/20 History tamsulosin [Flomax] 0.4 mg PO HS 07/03/18 09/18/20 History warfarin 2.5 mg tablet 2.5 mg PO MO 01/10/19 09/18/20 History levalbuterol HCl 1.25 mg INHALATION Q4H PRN 04/20/20 09/18/20 History metoprolol tartrate 50 mg PO BID 04/20/20 09/18/20 History warfarin 1.25 mg PO SUTUWETHFRSA 04/20/20 09/18/20 History digoxin 125 mcg (0.125 mg) tablet 125 mcg PO 3XWK tab 07/12/20 09/18/20 History acetylcysteine 100 mg/mL (10 %) 3 ml INHALATION BID #180 ml 07/22/20 09/18/20 Rx solution Anoro Ellipta 1 inh INHALATION QAM 08/13/20 09/18/20 History triamcinolone acetonide 0.1 % 1 applic TOPICAL BID #15 g 08/24/20 09/18/20 Rx topical cream ipratropium 20 mcg-albuterol 100 1 puff INHALATION Q6H #3 inhaler 08/31/20 09/18/20 Rx mcg/actuation mist for inhalation hydroxyzine HCl 10 mg PO Q8H PRN 09/09/20 09/18/20 History ipratropium bromide 2.5 ml INHALATION QID PRN 09/09/20 09/18/20 History torsemide 10 mg PO QAM 09/09/20 09/18/20 History doxycycline hyclate 100 mg PO BID #6 cap 09/13/20 09/18/20 Rx prednisone 10 mg PO UD #30 tab 09/13/20 09/18/20 Rx Patient History Medical History Anemia felt d/t chronic disease, hgb baseline 10-12 range per chart review Atrial fibrillation paroxysmal- on coumadin BPH (benign prostatic hypertrophy) CKD (chronic kidney disease) stage 3, GFR 30-59 ml/min COPD (chronic obstructive pulmonary disease) Diabetes type I Dyslipidemia per records Elbow fracture, right current issue s/p fall at home GERD (gastroesophageal reflux disease) r/t inhalers Interstitial lung disease Nocturnal hypoxemia 2L O2 HS 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)/last check 06/09/19 Palliative care encounter Pulmonary embolism remote hx Skin cancer left elbow region Weakness Surgical History H/O basal cell carcinoma excision REMOVED FROM NOSE H/O hand surgery LEFT MIDDLE FINGER FX REPAIR H/O inguinal hernia repair H/O nasal polypectomy History of bronchoscopy History of cataract surgery RT/LEFT History of colonoscopy History of inguinal hernia repair History of lung biopsy robotic thoracoscopy, pleural biopsy: 08/09/16: Grade view 1, MAC#3 at [facility] History of surgery of head "correct skull abnormality- left temporoparietal ; 1992" History of tooth extraction Status post placement of cardiac pacemaker Family History Brother Diabetes Son Diabetes Family hx of colon cancer Other Heart disease Social History Smoking Status: Former smoker Second Hand Exposure: No; Hx Alcohol Use: Yes Alcohol type: beer Hx Substance Use: No Preferred Language: Spanish Communication Ability: Effective Visual Impairment: No Limitations Warp Doffer Required: No Beliefs That Will Affect Care: None marital status: Current Living Situation: Spouse Current Living Situation Comment: at home Other Information That Helps Us Care for You: No Feels Safe at Home: Yes Safety Concerns: Feels Safe At This Time Assistive Devices: Cane, Denture - Upper, Denture - Lower and Walker Review of Systems Review of Systems: Please refer to admission H&P. No additions or deletions Physical Exam Physical Exam: Sitting on a chair without any acute distress Constitutional: well developed, well nourished, + ill appearing and + obese Eyes: PERRL, conjunctivae normal, anicteric sclerae ENMT: external ear and nose normal, oropharynx normal Neck: trachea midline, no thyromegaly Respiratory: no respiratory distress (Mild to moderate) Auscultation: + diminished lung sounds, + crackles (Bibasilar crackles) and + wheezes (Minimal wheezing bilaterally) Cardiovascular: Rate/Rhythm: regular rate and regular rhythm Heart Sounds: no murmur Extremities: + edema (1+ edema bilaterally) Gastrointestinal (Abdomen): Inspection/Auscultation: normal bowel sounds; abdomen not distended Percussion/Palpation: abdomen soft; abdomen nontender Musculoskeletal: No acute arthritis in any joint Psychiatric: A+Ox3, euthymic affect Lymphatic: no cervical or axillary lymphadenopathy Results & Data Results & Data ([facility]) Vital Signs (Past 12 Hours) Vital Signs Temp Pulse Pulse Resp BP Pulse Ox 09/19/20 07:49 36.3 C L 88 20 133/77 99 09/19/20 07:12 61 18 91 09/19/20 07:00 90 09/19/20 04:00 35.5 C L 91 H 18 137/86 100 09/19/20 03:19 89 15 93 Laboratory Results 09/19/20 07:13 09/19/20 07:13 Diagnostic Findings Chest x-ray 09/18/2020 was independently reviewed. Lungs appear stable with chronic changes. Pacemaker in place. Pleural plaquing again noted. PG Care Time/CCT Total # of Minutes Spent Total Time Spent with Patient: Total time spent is greater than 50% in coordination of care (as documented) at patient's floor/unit and/or counseling patient: Coding Level of Care Code 92585 Initial Inpt Care Lvl 3 Diagnoses Acute on chronic respiratory failure with hypoxia and hypercapnia J96.21; J96.22 Time Spent (min) 50
[2020-09-19] MEDS: SODIUM CHLORIDE 0.9% 1000ML 1,000 ML IV SCH (11:42)
--- NOTE | 2020-09-19 12:39 | Cardiology Consultation ---
Date of Consultation September 19, 2020 Assessment & Plan (1) Permanent atrial fibrillation: (2) Pacemaker: (3) Left displaced femoral neck fracture: (4) Supratherapeutic INR: Patient seen in preoperative cardiac assessment. EKG this am reveals AF at 94 bpm , with incomplete right bundle branch block and left anterior fascicular block pattern. Anterior T wave changes have been present in the past. He denies any symptoms suggestive of unstable angina. Is already well documented in both the pulmonary and orthopedic progress notes, he is frail, and is certainly a high risk candidate for perioperative complication, however surgical intervention indicated for the purposes of pain control and allowing him to ambulate in terms of his quality of life. Patient expresses to me that he is well aware of the risks of surgery, and he is willing to accept them. I feel he is well optimized from a cardiac perspective. INR has been 3.7 on presentation, and is down to 1.7 having received 5 mg of IV vitamin K on 09/18/2020 2145 hrs. Per orthopedic progress note, preferred INR is 1.3 or less. We will allow his INR to continue to trend down. Continue Digoxin metoprolol, torsemide, and simvastatin. Creatinine was 2.23 yesterday, down to 1.52 today. I think it is reasonable to proceed without heparin bridge for now given bleeding risks. Possibly for surgical intervention tomorrow. History of Present Illness Attending Physician: Gurdeep Rucker MD History of Present Illness Mr Plata is an 80 year old male seen in preoperative cardiology consulta tion per the request of Dr Burns. Patient suffered a fall at home with resultant left hip fracture. Patient had recently been hospitalized from 09/09/2020 until 09/13/2020 for an exacerbation of chronic hypoxic and hypercapnic respiratory failure with history of interstitial lung disease, asbestos exposure, COPD and tracheobronchomalacia. 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 Telemetry reveals atrial fibrillation in the range of 90 -99 bpm, this is relatively stable compared to what was noted at the time of his previous admission. Echocardiogram performed 09/09/2020 revealed hyperdynamic left ventricular systolic function with LVEF greater than 70%, moderate right atrial enlargement, mild mitral vegetation, mild tricuspid regurgitation, pulmonary artery systolic pressure estimated to be 35 mmHg. Patient states his respiratory status is stable at present. He denies chest discomfort. Allergies Allergy/AdvReac Type Severity Reaction Status Date / Time diltiazem Allergy Mild rash Verified 09/18/20 15:42 fluticasone furoate AdvReac Intermediate Joint Pain Verified 09/18/20 15:42 [From Breo Ellipta] vilanterol AdvReac Intermediate Joint Pain Verified 09/18/20 15:42 [From Breo Ellipta] aspirin AdvReac Mild GI symptoms Verified 09/18/20 15:42 lisinopril AdvReac Mild cough Verified 09/18/20 15:42 propoxyphene AdvReac Mild GI upset, Verified 09/18/20 15:42 diarrhea Home Medications Medication Instructions Recorded Confirmed Type Flonase Sensimist 2 spray INTRANASAL DAILY PRN 07/03/18 09/18/20 History Lantus Solostar U-100 Insulin 20 - 22 unit SUBCUT QAM 07/03/18 09/18/20 History insulin aspart U-100 [Novolog 4 - 6 unit SUBCUT TID 07/03/18 09/18/20 History Flexpen U-100 Insulin] nitroglycerin [Nitrostat] 0.4 mg SUBLINGUAL UD PRN 07/03/18 09/18/20 History simvastatin [Zocor] 20 mg PO QPM 07/03/18 09/18/20 History tamsulosin [Flomax] 0.4 mg PO HS 07/03/18 09/18/20 History warfarin 2.5 mg tablet 2.5 mg PO MO 01/10/19 09/18/20 History levalbuterol HCl 1.25 mg INHALATION Q4H PRN 04/20/20 09/18/20 History metoprolol tartrate 50 mg PO BID 04/20/20 09/18/20 History warfarin 1.25 mg PO SUTUWETHFRSA 04/20/20 09/18/20 History digoxin 125 mcg (0.125 mg) tablet 125 mcg PO 3XWK tab 07/12/20 09/18/20 History acetylcysteine 100 mg/mL (10 %) 3 ml INHALATION BID #180 ml 07/22/20 09/18/20 Rx solution Anoro Ellipta 1 inh INHALATION QAM 08/13/20 09/18/20 History triamcinolone acetonide 0.1 % 1 applic TOPICAL BID #15 g 08/24/20 09/18/20 Rx topical cream ipratropium 20 mcg-albuterol 100 1 puff INHALATION Q6H #3 inhaler 08/31/20 09/18/20 Rx mcg/actuation mist for inhalation hydroxyzine HCl 10 mg PO Q8H PRN 09/09/20 09/18/20 History ipratropium bromide 2.5 ml INHALATION QID PRN 09/09/20 09/18/20 History torsemide 10 mg PO QAM 09/09/20 09/18/20 History doxycycline hyclate 100 mg PO BID #6 cap 09/13/20 09/18/20 Rx prednisone 10 mg PO UD #30 tab 09/13/20 09/18/20 Rx Patient History Medical History Anemia felt d/t chronic disease, hgb baseline 10-12 range per chart review Atrial fibrillation paroxysmal- on coumadin BPH (benign prostatic hypertrophy) CKD (chronic kidney disease) stage 3, GFR 30-59 ml/min COPD (chronic obstructive pulmonary disease) Diabetes type I Dyslipidemia per records Elbow fracture, right current issue s/p fall at home GERD (gastroesophageal reflux disease) r/t inhalers Interstitial lung disease Nocturnal hypoxemia 2L O2 HS 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)/last check 06/09/19 Palliative care encounter Pulmonary embolism remote hx Skin cancer left elbow region Weakness Surgical History H/O basal cell carcinoma excision REMOVED FROM NOSE H/O hand surgery LEFT MIDDLE FINGER FX REPAIR H/O inguinal hernia repair H/O nasal polypectomy History of bronchoscopy History of cataract surgery RT/LEFT History of colonoscopy History of inguinal hernia repair History of lung biopsy robotic thoracoscopy, pleural biopsy: 08/09/16: Grade view 1, MAC#3 at [facility] History of surgery of head "correct skull abnormality- left temporoparietal ; 1992" History of tooth extraction Status post placement of cardiac pacemaker Family History Brother Diabetes Son Diabetes Family hx of colon cancer Other Heart disease Social History Smoking Status: Former smoker Second Hand Exposure: No; Hx Alcohol Use: Yes Alcohol type: beer Hx Substance Use: No Preferred Language: Uzbek Communication Ability: Effective Visual Impairment: No Limitations Land Conservation Specialist Required: No Beliefs That Will Affect Care: None marital status: Current Living Situation: Spouse Current Living Situation Comment: at home Other Information That Helps Us Care for You: No Feels Safe at Home: Yes Safety Concerns: Feels Safe At This Time Assistive Devices: Cane, Denture - Upper, Denture - Lower and Walker Physical Exam Physical Exam: Temp Pulse Resp BP Pulse Ox 36.7 C 89 22 106/75 100 09/19/20 11:25 09/19/20 12:28 09/19/20 12:28 09/19/20 11:25 09/19/20 12:28 Constitutional: WD/WN, vitals as above Respiratory: normal respiratory effort, lungs clear to auscultation Cardiovascular: Rate/Rhythm: + irregularly irregular Heart Sounds: no murmur Vessels: no JVD Extremities: no edema Gastrointestinal (Abdomen): normal bowel sounds, soft, nontender, no hepatosplenomegaly Neurologic: PERRL, EOMI, accommodation nl, no face palsy, no dysarthria Results & Data ([facility]) Vital Signs (Past 12 Hours) Vital Signs Temp Pulse Pulse Resp BP Pulse Ox 09/19/20 11:25 36.7 C 100 H 20 106/75 100 09/19/20 07:49 36.3 C L 88 20 133/77 99 09/19/20 07:12 61 18 91 09/19/20 07:00 90 09/19/20 04:00 35.5 C L 91 H 18 137/86 100 09/19/20 03:19 89 15 93 Laboratory Results Cardiac Enzymes 09/18/20 Range/Units 15:16 AST 12 L (15-37) U/L Coagulation 09/18/20 09/19/20 Range/Units 15:16 07:13 PT 34.1 H 16.9 H (9.0-12.0) Seconds APTT 36.5 H (21.0-31.0) Seconds CBC 09/18/20 09/19/20 Range/Units 15:16 07:13 WBC 9.20 11.46 H (4.8-10.8) K/uL RBC 3.94 L 4.20 L (4.7-6.1) M/uL Hgb 10.4 L 11.1 L (14.0-18.0) g/dL Hct 34.1 L 36.4 L (42-52) % Plt Count 230 243 (130-400) K/uL Neut # (Auto) 7.94 H 9.25 H (1.4-6.5) K/uL Lymph # (Auto) 0.85 L 1.15 L (1.2-3.4) K/uL [place] # (Auto) 0.31 0.97 H (0.11-0.59) K/uL Eos # (Auto) 0.00 0.01 (0-0.5) K/uL Baso # (Auto) 0.00 0.00 (0-0.2) K/uL Comprehensive Metabolic Panel 09/18/20 09/19/20 Range/Units 15:16 07:13 Sodium 136 140 (136-145) mmol/L Potassium 3.9 4.1 (3.5-5.1) mmol/L Chloride 95 L 100 (98-107) mmol/L Carbon Dioxide 36 H 35 H (21-32) mmol/L BUN 88 H 68 H (7-18) mg/dl Creatinine 2.23 H 1.52 H D (0.6-1.4) mg/dl Glucose 282 H 170 H (70-99) mg/dl Calcium 9.2 9.2 (8.5-10.1) mg/dl AST 12 L (15-37) U/L ALT 37 (12-78) U/L Alkaline Phosphatase 120 H (45-117) U/L Total Protein 6.1 L (6.4-8.2) gm/dl Albumin 2.8 L (3.4-5.0) gm/dl Intake and Output 09/18/20 09/19/20 09/19/20 22:59 06:59 14:59 Intake Total 120.5 / 120.5 Output Total 150 / 570 420 / 570 Balance -150 / -449.5 -299.5 / -449.5 Intake: IV 120.5 / 120.5 Phytonadione 5 mg In Sodium 50.5 / 50.5 Chloride 0.9% 50 ml @ 101 mls/ hr IV ONE ONE Rx#:[id number] Sodium Chloride 0.9% 1000ML 1, 1987.75 / 1987.75 000 ml @ 75 mls/hr IV .[id number] [facility] Rx#:[id number] cefTRIAXone SODIUM 2,000 mg In 70 / 70 Dextrose 5% 50 ml @ 100 mls/hr IV Q24H [facility] Rx#:[id number] Oral 0 / 0 Output: Urine 150 / 570 420 / 570 Other: Weight 87.4 kg 89.8 kg Weight Measurement Method Built in [facility] Built in [facility]
--- NOTE | 2020-09-19 13:03 | Hospitalist Progress Note ---
Date of Service September 19, 2020 Assessment & Plan (1) Left displaced femoral neck fracture: (2) Acute pain of left hip: ASSESSMENT AND PLAN: This is an 80-year-old male with history of chronic respiratory failure, chronic obstructive pulmonary disease, history of bronchiectasis, diabetes, chronic kidney disease stage III, history of atrial fibrillation, tachybrady syndrome, status post pacemaker, diastolic congestive heart failure, presents with fall and left hip fracture. 1. Mechanical fall, left hip fracture - high risk for planned orthopedic surgery evaluated by Pulm and Cards no contraindication to proceed with surgery - prior to surgery tomorrow, will give Hydrocortisone 50mg one dose, then 25mg q8h x 3, then resume Prednisone 10mg daily - discussed with patient 2. Chronic respiratory failure, chronic obstructive pulmonary disease, history of bronchiectasis, interstitial lung disease, asbestosis, pneumoconiosis, uses oxygen at night with BiPAP. - stable overall continue usual bronchodilators 3. History of diastolic congestive heart failure. -- appears euvolemic today -- hold Torsemide d/c IV fluids -- monitor volume status closely 4. History of paroxysmal atrial fibrillation, tachybrady syndrome, status post pacemaker, on metoprolol and digoxin, which we will continue with holding parameters. -- INR 1.7 after Vit K anticipate to further decrease tomorrow -- coumadin on hold 5. History of diabetes. We will cut back on Lantus to 10 units subcutaneously in the a.m. as the patient is currently n.p.o. after midnight and continue insulin sliding scale. -- monitor 6. Acute kidney injury on chronic kidney disease stage III, baseline creatinine seems to be around 1.7, creatinine was 2 at the time of discharge last admission, it is currently 2.2. -- hold Torsemide d/c IV fluids 7. Deep vein thrombosis prophylaxis. SCDs for now DISPOSITION: PT/OT eval may need Acute Rehab or SNF Admission and Anticipated Discharge Date Admission Date: September 18, 2020 Subjective ff up for left hip fracture etc seen resting in bed, not in distress, comfortable states L hip pain occurs with movement otherwise states he feels fine overall denies chest pain, dyspnea, palpitations, dizziness no fever/chills no other symptoms Review of Systems Review of Systems: All systems reviewed & are unremarkable except as noted in Subjective Physical Exam Physical Exam: General- oriented x 3, not in distress, speaks in sentences with no effort or accessory muscle use on 3 L NC Head- atraumatic Eyes- PERRL, EOMI, anicteric ENT- oropharynx clear Neck- supple, no JVD, no adenopathy, no thyromegaly; carotids +2/2, no bruits appreciated Lungs- clear to auscultation bilaterally, no rales/wheezes Heart- normal rate, regular rhythm; no murmur, no gallop, no rub appreciated Abdomen- normal bowel sounds, nondistended, soft, nontender, no masses or hepatosplenomegaly Extremities- no pretibial edema, no calf tenderness; peripheral pulses intact (+) external rotation of Left LE Neuro- alert, oriented x 3; CN 2-12 grossly intact; motor 5/5 bilaterally;sensation 100% on all extremities; no other gross focal neurologic deficits Skin- warm & dry Results & Data Results & Data ([facility]) Vital Signs (Past 12 Hours) Vital Signs Temp Pulse Pulse Resp BP Pulse Ox 09/19/20 12:28 89 22 100 09/19/20 11:25 36.7 C 100 H 20 106/75 100 09/19/20 07:49 36.3 C L 88 20 133/77 99 09/19/20 07:12 61 18 91 09/19/20 07:00 90 09/19/20 04:00 35.5 C L 91 H 18 137/86 100 09/19/20 03:19 89 15 93 all noted and reviewed including below Laboratory Results Laboratory Results - last 24 hr 09/18/20 09/18/20 09/18/20 15:16 15:16 15:16 WBC 9.20 RBC 3.94 L Hgb 10.4 L Hct 34.1 L MCV 86.5 MCH 26.4 MCHC 30.5 L RDW Std Deviation 53.5 H RDW Coeff of Samira 16.8 H Plt Count 230 MPV 9.4 Immature Gran % (Auto) 1.1 Neut % (Auto) 86.3 Lymph % (Auto) 9.2 [place] % (Auto) 3.4 Eos % (Auto) 0.0 Baso % (Auto) 0.0 Neut # (Auto) 7.94 H Lymph # (Auto) 0.85 L [place] # (Auto) 0.31 Eos # (Auto) 0.00 Baso # (Auto) 0.00 Immature Gran # (Auto) 0.10 H PT 34.1 H INR 3.7 H APTT 36.5 H PTT Ratio 1.4 Sodium Potassium Chloride Carbon Dioxide Anion Gap BUN Creatinine Est Cr Clr Drug Dosing Est GFR ( Amer) Est GFR (Non-Af Amer) BUN/Creatinine Ratio Glucose POC Glucose Estimat Average Glucose Hemoglobin A1c Calcium Magnesium Total Bilirubin AST ALT Alkaline Phosphatase Total Protein Albumin Globulin Albumin/Globulin Ratio Cortisol AM Sample Urine Color Urine Appearance Urine pH Ur Specific [place] Urine Protein Urine Glucose (UA) Urine Ketones Urine Blood Urine Nitrite Urine Bilirubin Urine Urobilinogen Ur Leukocyte Esterase Urine WBC (Auto) Urine RBC (Auto) U Hyaline Cast (Auto) U Epithel Cells (Auto) Urine Bacteria (Auto) COVID-19 Eval Order SARS-CoV-2 (PCR) Blood Type O Positive Antibody Screen NEGATIVE 09/18/20 09/18/20 09/18/20 15:16 18:10 18:10 WBC RBC Hgb Hct MCV MCH MCHC RDW Std Deviation RDW Coeff of Samira Plt Count MPV Immature Gran % (Auto) Neut % (Auto) Lymph % (Auto) [place] % (Auto) Eos % (Auto) Baso % (Auto) Neut # (Auto) Lymph # (Auto) [place] # (Auto) Eos # (Auto) Baso # (Auto) Immature Gran # (Auto) PT INR APTT PTT Ratio Sodium 136 Potassium 3.9 Chloride 95 L Carbon Dioxide 36 H Anion Gap 5.0 BUN 88 H Creatinine 2.23 H Est Cr Clr Drug Dosing 28.0 Est GFR ( Amer) 30.7 Est GFR (Non-Af Amer) 26.5 BUN/Creatinine Ratio 39.5 H Glucose 282 H POC Glucose Estimat Average Glucose Hemoglobin A1c Calcium 9.2 Magnesium Total Bilirubin 0.9 AST 12 L ALT 37 Alkaline Phosphatase 120 H Total Protein 6.1 L Albumin 2.8 L Globulin 3.3 Albumin/Globulin Ratio 0.8 L Cortisol AM Sample Urine Color Urine Appearance Urine pH Ur Specific [place] Urine Protein Urine Glucose (UA) Urine Ketones Urine Blood Urine Nitrite Urine Bilirubin Urine Urobilinogen Ur Leukocyte Esterase Urine WBC (Auto) Urine RBC (Auto) U Hyaline Cast (Auto) U Epithel Cells (Auto) Urine Bacteria (Auto) COVID-19 Eval Order Covid19 at [facility] SARS-CoV-2 (PCR) NEGATIVE Blood Type Antibody Screen 09/18/20 09/18/20 09/19/20 22:48 Unknown 05:53 WBC RBC Hgb Hct MCV MCH MCHC RDW Std Deviation RDW Coeff of Samira Plt Count MPV Immature Gran % (Auto) Neut % (Auto) Lymph % (Auto) [place] % (Auto) Eos % (Auto) Baso % (Auto) Neut # (Auto) Lymph # (Auto) [place] # (Auto) Eos # (Auto) Baso # (Auto) Immature Gran # (Auto) PT INR APTT PTT Ratio Sodium Potassium Chloride Carbon Dioxide Anion Gap BUN Creatinine Est Cr Clr Drug Dosing Est GFR ( Amer) Est GFR (Non-Af Amer) BUN/Creatinine Ratio Glucose POC Glucose 257 H 174 H Estimat Average Glucose Hemoglobin A1c Calcium Magnesium Total Bilirubin AST ALT Alkaline Phosphatase Total Protein Albumin Globulin Albumin/Globulin Ratio Cortisol AM Sample Urine Color Yellow Urine Appearance Clear Urine pH 5.0 Ur Specific [place] 1.018 Urine Protein Trace H Urine Glucose (UA) 2+ H Urine Ketones Negative Urine Blood Negative Urine Nitrite Negative Urine Bilirubin Negative Urine Urobilinogen Negative Ur Leukocyte Esterase 2+ H Urine WBC (Auto) 10-30 H Urine RBC (Auto) 0-4 U Hyaline Cast (Auto) 1-5 U Epithel Cells (Auto) 10-20 H Urine Bacteria (Auto) Negative COVID-19 Eval Order SARS-CoV-2 (PCR) Blood Type Antibody Screen 09/19/20 09/19/20 09/19/20 07:13 07:13 07:13 WBC 11.46 H RBC 4.20 L Hgb 11.1 L Hct 36.4 L MCV 86.7 MCH 26.4 MCHC 30.5 L RDW Std Deviation 53.6 H RDW Coeff of Samira 16.8 H Plt Count 243 MPV 9.8 Immature Gran % (Auto) 0.7 Neut % (Auto) 80.7 Lymph % (Auto) 10.0 [place] % (Auto) 8.5 Eos % (Auto) 0.1 Baso % (Auto) 0.0 Neut # (Auto) 9.25 H Lymph # (Auto) 1.15 L [place] # (Auto) 0.97 H Eos # (Auto) 0.01 Baso # (Auto) 0.00 Immature Gran # (Auto) 0.08 H PT 16.9 H INR 1.7 H APTT PTT Ratio Sodium Potassium Chloride Carbon Dioxide Anion Gap BUN Creatinine Est Cr Clr Drug Dosing Est GFR ( Amer) Est GFR (Non-Af Amer) BUN/Creatinine Ratio Glucose POC Glucose Estimat Average Glucose Hemoglobin A1c Calcium Magnesium Total Bilirubin AST ALT Alkaline Phosphatase Total Protein Albumin Globulin Albumin/Globulin Ratio Cortisol AM Sample Pending Urine Color Urine Appearance Urine pH Ur Specific [place] Urine Protein Urine Glucose (UA) Urine Ketones Urine Blood Urine Nitrite Urine Bilirubin Urine Urobilinogen Ur Leukocyte Esterase Urine WBC (Auto) Urine RBC (Auto) U Hyaline Cast (Auto) U Epithel Cells (Auto) Urine Bacteria (Auto) COVID-19 Eval Order SARS-CoV-2 (PCR) Blood Type Antibody Screen 09/19/20 09/19/20 09/19/20 07:13 07:13 12:12 WBC RBC Hgb Hct MCV MCH MCHC RDW Std Deviation RDW Coeff of Samira Plt Count MPV Immature Gran % (Auto) Neut % (Auto) Lymph % (Auto) [place] % (Auto) Eos % (Auto) Baso % (Auto) Neut # (Auto) Lymph # (Auto) [place] # (Auto) Eos # (Auto) Baso # (Auto) Immature Gran # (Auto) PT INR APTT PTT Ratio Sodium 140 Potassium 4.1 Chloride 100 Carbon Dioxide 35 H Anion Gap 5.0 BUN 68 H Creatinine 1.52 H D Est Cr Clr Drug Dosing 41.1 Est GFR ( Amer) 48.8 Est GFR (Non-Af Amer) 42.1 BUN/Creatinine Ratio 44.5 H Glucose 170 H POC Glucose 156 H Estimat Average Glucose Pending Hemoglobin A1c Pending Calcium 9.2 Magnesium 2.0 Total Bilirubin AST ALT Alkaline Phosphatase Total Protein Albumin Globulin Albumin/Globulin Ratio Cortisol AM Sample Urine Color Urine Appearance Urine pH Ur Specific [place] Urine Protein Urine Glucose (UA) Urine Ketones Urine Blood Urine Nitrite Urine Bilirubin Urine Urobilinogen Ur Leukocyte Esterase Urine WBC (Auto) Urine RBC (Auto) U Hyaline Cast (Auto) U Epithel Cells (Auto) Urine Bacteria (Auto) COVID-19 Eval Order SARS-CoV-2 (PCR) Blood Type Antibody Screen
[2020-09-19] MEDS: SIMVASTATIN 20 MG TAB PO SCH (20:46)
[2020-09-19] MEDS: TAMSULOSIN HCL 0.4 MG CAP PO SCH (20:46)
[2020-09-19] MEDS: cefTRIAXone SODIUM 2,000 MG in DEXTROSE 5% 50 ML IV SCH (21:22)
[2020-09-20] MEDS: INSULIN ASPART 100 UNITS/ML 3 ML PEN SC SCH ×5 (00:39→21:16)
[2020-09-20] MEDS: Ipratropium HFA Inhaler (Combivent Respimat P&T Subs) INH SCH ×4 (01:19→19:21)
[2020-09-20] MEDS: Albuterol HFA 8 GM Inhaler (Combivent Respimat P&T Subs) INH SCH ×4 (01:19→19:21)
[2020-09-20] MEDS: ACETYLCYSTEINE 10% INHAL SOLN 4 ML **DISPENSED BY RESP. INH SCH ×2 (07:19→19:21)
[2020-09-20] MEDS: LEVALBUTEROL HCL 1.25 MG/3 ML NEB INH PRN (07:20)
[2020-09-20 07:27] LABS: Estimated Average Glucose 214 mg/dl; Hemoglobin A1C 9.1 % (4.5-5.6)
[2020-09-20 07:57] LABS: INR 1.1 (0.9-1.1); Prothrombin Time 11.3 Seconds (9.0-12.0)
[2020-09-20] MEDS ORDERED: HYDROCORTISONE SOD 50 MG in SYRINGE 0 ML IV ONE (08:00)
[2020-09-20] MEDS: INSULIN GLARGINE SOLOSTAR 100 UNITS/ML 3 ML PEN SC SCH ×2 (08:43→21:17)
[2020-09-20] MEDS ORDERED: D5W AND NSS 1,000 ML IV SCH (08:45)
[2020-09-20] MEDS: UMECLIDINIUM/VILANTEROL 62.5/25MCG 7 PUFFS/INHALER INH SCH (09:38)
[2020-09-20] MEDS: TRIAMCINOLONE ACET 0.1% CR 15 GM TUBE TOP SCH ×2 (09:38→21:56)
[2020-09-20] MEDS: METOPROLOL TARTRATE 50 MG TAB PO SCH ×2 (10:08→21:38)
[2020-09-20] MEDS ORDERED: PHARMACY GLYCEMIC MGMT CONSULT PRN (10:16)
--- NOTE | 2020-09-20 11:46 | Pharmacy Report ---
Pharmacy Glycemic Short Note 2 - Date of Service September 20, 2020 - Glycemic Short BSG Results (Last 24 hours): 09/19/20 09/19/20 09/20/20 12:12 17:59 00:36 POC Glucose 156 H 169 H 120 H 09/20/20 09/20/20 09/20/20 05:45 07:51 07:52 POC Glucose 81 59 L* 69 L* 09/20/20 08:17 POC Glucose 103 H OUTPATIENT ANTIDIABETIC REGIMEN: * ASSESSMENT: * 80 yo M who is listed as having T1DM but likely has T2DM (see below) admitted 09/18 2nd fall / femur fracture. Surgery required in order to restore ability to ambulate, but patient very high risk due to severe cardiac and pulmonary disease, uncontrolled diabetes, and extensive surgery required. Surgery was also delayed to today due to INR elevation, but plan for OR today per Dr. Rucker. Stress dose steroids ordered (hydrocortisone 50 mg x1 then 25 mg IV q8h x3 doses with plan to resume prednisone after that point). Dextrose infusion currently running for hypoglycemia this AM, which is what prompted this consult T1DM vs. T2DM? * Consulted 09/20 AM for hypoglycemia. This hypoglycemia was unanticipated given reported history of T1DM and also the patient receiving less than half of his outpatient basal insulin dose yesterday. A more modest 20% reduction is more common for NPO adjustment for a patient with T1DM, and it would be more likely for the patient to be significantly hyperglycemic this AM due to basal insulin deficiency if he truly did have T1DM. * I called and spoke with the patient - he does report a history of type 1 diabetes. However, on further questioning, he notes that he was diagnosed with diabetes in the "late 90's" in about [id number] and was originally managed with oral agents only x3-5 years. He notes that in April of 1999 he was started on insulin at this institution. When questioned further about type 1 vs type 2 diabetes, he reported that it was "never made clear" to him what type of diabetes he has and that different documents he receives has type 1 listed on some and type 2 listed on others * The patient absolutely has T2DM based on our conversation, and being initially managed on oral agents alone for years prior to starting insulin. However, although rare, patients can have a late-onset of T1DM therefore I looked back at April 1999 documentation - per the H&P, he has T2DM and was started on insulin therapy during that encounter due to ongoing prednisone use. T1DM was not mentioned. This encounter was >20 years ago at this point, however, it is unlikely (although not impossible) that the patient has T1DM * Discussed above w Dr. Rucker - noted that T1DM is listed in problem list. Patient should absolutely have T2DM listed, and likely does not have T1DM. Dr. Rucker OK with treating as T2DM for now, and holding basal insulin pre- operatively given BSG of 59 mg/dL this AM * Plan to continue D5W infusion until post-op to prevent severe hypoglycemia. Dr. Rucker to likely d/c all fluids post-op and may order a diet. Discussed that low-lows and high-highs should be avoided, especially for this patient, and that an insulin drip may be required post-op given high risk and steroid use. Dr. Rucker agreed that an insulin drip could be required, and initiation would depend on BSG's PLAN FOR INPATIENT GLYCEMIC CONTROL: * Hold outpatient oral diabetes medications * Basal insulin * Lantus 0-5 units SQ BID based on BSG * Bolus insulin * NovoLog per scale ACHS or Q6hrs while NPO * Goal Range: Low 120 mg/dL - High 150 mg/dL * Correction Factor: 30 mg/dL/unit * Nutritional / Prandial insulin per carb ratio of 1 unit per 10 grams CHO consumed
--- NOTE | 2020-09-20 15:20 | Pulmonology Progress Note ---
Date of Service September 20, 2020 Assessment & Plan (1) Acute on chronic respiratory failure with hypoxia and hypercapnia: Impression: 80-year-old male on chronic prednisone therapy and nocturnal A VAPS therapy with PFTs showing severe airflow obstruction admitted status post fall with nondisplaced hip fracture. 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 Recommend continuing with diuretics to keep the patient negative balance No absolute contraindication for the patient to have surgery from pulmonary perspective. He does have severe COPD and hypercapnic respiratory failure and at an increased risk of complications including postoperative atelectasis, pneumonia, and respiratory failure Patient already has AVAPS machine which he brought from home. Would recommend putting him back to his AVAPS machine after the procedure. Pulmonary will follow peripherally. Call directly with any questions Please note the above document was generated using voice recognition software. It may contain grammatical, syntax or spelling errors.Any formal questions or concerns about the content, text or information contained within the body of this dictation should be directly addressed to the provider for clarification. Admission and Anticipated Discharge Date Admission Date: September 18, 2020 Subjective Patient seen and examined at bedside. No acute distress but noted with symptoms overnight. Patient was lying in the bed talking on the phone. He denies any chest pain, no shortness of breath. He was waiting to be taken to the OR. He states that his respiratory status is at baseline. Denies any palpitations, no dizziness, no nausea or vomiting. He is n.p.o. Review of Systems Review of Systems: All systems reviewed & are unremarkable except as noted in Subjective Physical Exam Physical Exam: Constitutional: No acute distress HEENT: EOMI, PERRLA, puffy eyelids Respiratory system: Decreased air entry bilaterally, no wheeze, positive rhonchi positive crackles, bilateral lower lobes more on the right side CVS: S1-S2 positive, no murmurs or gallops, distant heart sounds, irregular Abdomen: Soft, nontender, nondistended, positive bowel sounds x4 Extremities: +2 pulses bilaterally radialis/ dorsalis pedis, no cyanosis, +1 pitting edema bilateral lower extremity Neuro: Awake alert oriented x3 Psych: Normal mood and affect G/U: No Drew Skin: no rashes, warm and dry Lymphatic: no cervical or axillary lymphadenopathy Results & Data Results & Data ([facility]) Vital Signs (Past 12 Hours) Vital Signs Temp Pulse Pulse Resp BP Pulse Ox 09/20/20 15:07 102 H 09/20/20 13:23 979 H 18 97 09/20/20 11:49 36.7 C 71 16 118/77 99 09/20/20 10:07 115 H 104/67 99 09/20/20 08:00 100 H 09/20/20 07:46 36.5 C 106 H 16 98/58 L 98 09/20/20 07:22 100 H 18 95 09/20/20 07:18 85 09/19/20 07:13 09/19/20 07:13 PG Care Time/CCT Total # of Minutes Spent Total Time Spent with Patient: Total time spent is greater than 50% in coordination of care (as documented) at patient's floor/unit and/or counseling patient: Coding Level of Care Code 65279 Subseq Hosp Care Lvl 3 Diagnoses Acute on chronic respiratory failure with hypoxia and hypercapnia J96.21; J96.22
--- NOTE | 2020-09-20 16:22 | Cardiology Progress Note ---
Date of Service September 20, 2020 Assessment & Plan (1) Permanent atrial fibrillation: (2) Pacemaker: (3) Left displaced femoral neck fracture: (4) Supratherapeutic INR: Patient seen in preoperative cardiac assessment. He denies any symptoms suggestive of unstable angina. Is already well documented in both the pulmonary and orthopedic progress notes, he is frail, and is certainly a high risk candidate for perioperative complication, however surgical intervention indicated for the purposes of pain control and allowing him to ambulate in terms of his quality of life. Patient expresses to me that he is well aware of the risks of surgery, and he is willing to accept them. I feel he is well optimized from a cardiac perspective. INR has been 3.7 on presentation, and is down to 1.1 having received 5 mg of IV vitamin K on 09/18/2020 2145 hrs. Per orthopedic progress note, preferred INR is 1.3 or less. We will allow his INR to continue to trend down. Continue Digoxin metoprolol, torsemide, and simvastatin. Creatinine was 2.23 yesterday, down to 1.52 today. I think it is reasonable to proceed without heparin bridge for now given bleeding risks. Possibly for surgical intervention tomorrow. Admission and Anticipated Discharge Date Admission Date: September 18, 2020 Subjective Patient seen and examined, chart reviewed. Currently states he is very fatigued after restless night. Denies cardiac complaints of chest pain, shortness of breath, palpitations, lightheadedness, dizziness or syncope. Review of Systems Review of Systems: All systems reviewed & are unremarkable except as noted in HPI & below Physical Exam Physical Exam: General: Awake, alert and oriented x 3. No acute distress. HEENT: Normocephalic, atraumatic. Pupils equal, round and reactive to light and accommodation. Extraocular muscles are intact. Anicteric sclera. Moist mucous membranes. Neck: No JVD. No bruit. Cardiovascular: irregularly irregular, unable to appreciate murmur, rub or gallop. Pulmonary: Clear to auscultation bilaterally. No rales, rhonchi, or wheezing. Abdomen: Bowel sounds x 4, soft. No rebound, guarding or tenderness. No organomegaly. Extremities: No clubbing, cyanosis or edema. +2 pedal pulses bilaterally. Skin: Warm and dry. Results & Data ([facility]) Vital Signs (Past 12 Hours) Vital Signs Temp Pulse Pulse Resp BP Pulse Ox 09/20/20 15:26 36.9 C 89 16 119/69 97 09/20/20 15:07 102 H 09/20/20 13:23 979 H 18 97 09/20/20 11:49 36.7 C 71 16 118/77 99 09/20/20 10:07 115 H 104/67 99 09/20/20 08:00 100 H 09/20/20 07:46 36.5 C 106 H 16 98/58 L 98 09/20/20 07:22 100 H 18 95 09/20/20 07:18 85
[2020-09-20] MEDS: HYDROCORTISONE SOD 25 MG in SYRINGE 0 ML IV SCH ×2 (16:23→23:12)
[2020-09-20] MEDS: DIGOXIN 0.125 MG TAB PO SCH (16:25)
--- NOTE | 2020-09-20 17:09 | Anesthesiology Consultation ---
Date of Service September 20, 2020 Assessment & Plan ASA ASA4 Proposed Anesthesia Anesthesia Type: General Risk / Benefits Reviewed With: PT / POA / Parent / Guardian, Accepts Plan and Informed Consent Obtained Additional Comments: pt has multiple comorbidities and understands he is high risk. I have elected for a general anesthesia to ensure control of patients breathing and accurate measurements of CO2. A spinal plus sedation generally results in high levels of CO2 and atelectasis. I feel a general anesthesia will provide the best chance of avoiding pulmonary complications History Surgery Operation Date: 09/20/20 09:20 Proposed Procedures p Left Hip Hemiarthroplasty Todd Valentine, Height/Weight Height: 6 ft Weight: 91.2 kg Allergies Allergy/AdvReac Type Severity Reaction Status Date / Time diltiazem Allergy Mild rash Verified 09/18/20 15:42 fluticasone furoate AdvReac Intermediate Joint Pain Verified 09/18/20 15:42 [From Breo Ellipta] vilanterol AdvReac Intermediate Joint Pain Verified 09/18/20 15:42 [From Breo Ellipta] aspirin AdvReac Mild GI symptoms Verified 09/18/20 15:42 lisinopril AdvReac Mild cough Verified 09/18/20 15:42 propoxyphene AdvReac Mild GI upset, Verified 09/18/20 15:42 diarrhea Medications Home Medications Medication Instructions Recorded Confirmed Last Taken Flonase Sensimist 2 spray INTRANASAL DAILY PRN 07/03/18 09/18/20 09/18/20 Lantus Solostar U-100 Insulin 20 - 22 unit SUBCUT QAM 07/03/18 09/18/20 09/18/20 insulin aspart U-100 [Novolog 4 - 6 unit SUBCUT TID 07/03/18 09/18/20 09/18/20 Flexpen U-100 Insulin] nitroglycerin [Nitrostat] 0.4 mg SUBLINGUAL UD PRN 07/03/18 09/18/20 Unknown simvastatin [Zocor] 20 mg PO QPM 07/03/18 09/18/20 09/17/20 tamsulosin [Flomax] 0.4 mg PO HS 07/03/18 09/18/20 09/17/20 warfarin 2.5 mg tablet 2.5 mg PO MO 01/10/19 09/18/20 09/13/20 levalbuterol HCl 1.25 mg INHALATION Q4H PRN 04/20/20 09/18/20 09/18/20 metoprolol tartrate 50 mg PO BID 04/20/20 09/18/20 09/18/20 warfarin 1.25 mg PO SUTUWETHFRSA 04/20/20 09/18/20 09/18/20 digoxin 125 mcg (0.125 mg) tablet 125 mcg PO 3XWK tab 07/12/20 09/18/20 09/17/20 acetylcysteine 100 mg/mL (10 %) 3 ml INHALATION BID #180 ml 07/22/20 09/18/20 09/18/20 solution Anoro Ellipta 1 inh INHALATION QAM 08/13/20 09/18/20 09/18/20 triamcinolone acetonide 0.1 % 1 applic TOPICAL BID #15 g 08/24/20 09/18/20 09/18/20 topical cream ipratropium 20 mcg-albuterol 100 1 puff INHALATION Q6H #3 inhaler 08/31/20 09/18/20 09/09/20 mcg/actuation mist for inhalation hydroxyzine HCl 10 mg PO Q8H PRN 09/09/20 09/18/20 Unknown ipratropium bromide 2.5 ml INHALATION QID PRN 09/09/20 09/18/20 09/18/20 torsemide 10 mg PO QAM 09/09/20 09/18/20 09/18/20 doxycycline hyclate 100 mg PO BID #6 cap 09/13/20 09/18/20 09/18/20 prednisone 10 mg PO UD #30 tab 09/13/20 09/18/20 09/18/20 Active Medications Generic Name Dose Route Start Last Admin Trade Name Freq PRN Reason Stop Dose Admin Acetaminophen 650 mg 09/18/20 21:17 09/19/20 07:32 Acetaminophen 325 Mg Tab PO 10/18/20 21:16 650 mg Q4H PRN Administration Pain or Fever Acetylcysteine 3 ml 09/18/20 21:17 09/20/20 07:19 Acetylcysteine 10% Inhal Soln 4 Ml Dispensed By Resp. INH 10/18/20 21:16 3 ml BIDR RASHEL Administration Albuterol 1 puffs 09/18/20 21:45 09/20/20 13:20 Albuterol Hfa 8 Gm Inhaler (Combivent Respimat P&T Subs) INH 10/18/20 21:44 1 puffs Q6R RASHEL Administration Dextrose 25 - 50 ml 09/18/20 21:45 09/20/20 08:00 Dextrose 50% 50 Ml Syringe IV 10/18/20 21:44 25 ml UD PRN Administration Hypoglycemia Protocol Protocol Digoxin 0.125 mg 09/20/20 16:00 09/20/20 16:25 Digoxin 0.125 Mg Tab PO 10/20/20 15:59 0.125 mg [id number] RASHEL Administration Ceftriaxone Sodium 2,000 mg/ 70 mls @ 100 mls/hr 09/18/20 22:00 09/19/20 22:14 Dextrose IV 09/28/20 21:59 Infused Q24H RASHEL Infusion Protocol Hydrocortisone Sodium 0.5 mls @ 4 mls/min 09/20/20 16:00 09/20/20 16:23 Succinate 25 mg/ Syringe IV 09/21/20 08:01 4 mls/min Q8H RASHEL Administration Dextrose/Sodium Chloride 1,000 mls @ 50 mls/hr 09/20/20 08:45 09/20/20 16:26 D5w And Nss IV 10/20/20 08:44 0 mls/hr .Q20H RASHEL Infusion Insulin Aspart 0 units 09/20/20 16:00 09/20/20 16:47 Insulin Aspart 100 Units/Ml 3 Ml Pen SC 10/20/20 15:59 Not Given Q4 RASHEL Protocol Ipratropium [place] 1 puffs 09/18/20 21:45 09/20/20 13:20 Ipratropium Hfa Inhaler (Combivent Respimat P&T Subs) INH 10/18/20 21:44 1 puffs Q6R RASHEL Administration Levalbuterol HCl 1.25 mg 09/18/20 21:17 09/20/20 07:20 Levalbuterol Hcl 1.25 Mg/3 Ml Neb INH 10/18/20 21:16 1.25 mg Q4H PRN Administration Shortnes of breath Metoprolol Tartrate 50 mg 09/18/20 21:17 09/20/20 10:08 Metoprolol Tartrate 50 Mg Tab PO 10/18/20 21:16 50 mg BID RASHEL Administration Morphine Sulfate 2 mg 09/18/20 21:17 09/19/20 08:38 Morphine Sulfate 2 Mg/Ml Carp IV 10/02/20 21:16 2 mg Q3H PRN Administration Pain Simvastatin 20 mg 09/18/20 21:17 09/19/20 20:46 Simvastatin 20 Mg Tab PO 10/18/20 21:16 20 mg QPM RASHEL Administration Tamsulosin HCl 0.4 mg 09/18/20 21:17 09/19/20 20:46 Tamsulosin Hcl 0.4 Mg Cap PO 10/18/20 21:16 0.4 mg HS RASHEL Administration Torsemide 10 mg 09/19/20 09:00 09/19/20 08:27 Torsemide 10 Mg Tab PO 10/19/20 08:59 10 mg QAM RASHEL Administration Triamcinolone Acetonide 1 appln 09/18/20 21:17 09/20/20 09:38 Triamcinolone Acet 0.1% Cr 15 Gm Tube TOP 10/18/20 21:16 1 appln BID RASHEL Administration Umeclidinium/Vilanterol 1 puffs 09/19/20 09:00 09/20/20 09:38 Umeclidinium/Vilanterol 62.5/25mcg 7 Puffs/Inhaler INH 10/19/20 08:59 1 puffs QAM RASHEL Administration NPO Date Last Intake of Fluids: 09/20/20 Time Last Intake of Fluids: 16:25 Last Intake of Fluids Comment: SIP WITH MED Date Last Intake of Solids: 09/18/20 Time Last Intake of Solids: 17:00 Past Medical History Medical History Anemia felt d/t chronic disease, hgb baseline 10-12 range per chart review Atrial fibrillation paroxysmal- on coumadin BPH (benign prostatic hypertrophy) CKD (chronic kidney disease) stage 3, GFR 30-59 ml/min COPD (chronic obstructive pulmonary disease) Diabetes type I Dyslipidemia per records Elbow fracture, right current issue s/p fall at home GERD (gastroesophageal reflux disease) r/t inhalers Interstitial lung disease Nocturnal hypoxemia 2L O2 HS 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)/last check 06/09/19 Palliative care encounter Pulmonary embolism remote hx Skin cancer left elbow region Weakness Exercise / Class Metabolic Activity II 4-5 Yardwork/Stairs/Walk up hill Past Family History Family History Brother Diabetes Son Diabetes Family hx of colon cancer Other Heart disease Past Surgical History Surgical History H/O basal cell carcinoma excision REMOVED FROM NOSE H/O hand surgery LEFT MIDDLE FINGER FX REPAIR H/O inguinal hernia repair H/O nasal polypectomy History of bronchoscopy History of cataract surgery RT/LEFT History of colonoscopy History of inguinal hernia repair History of lung biopsy robotic thoracoscopy, pleural biopsy: 08/09/16: Grade view 1, MAC#3 at [facility] History of surgery of head "correct skull abnormality- left temporoparietal ; 1992" History of tooth extraction Status post placement of cardiac pacemaker Past Anesthesia History No Hx of Anesthesia Complications and No Family Hx of Anesthesia Complications History of PONV No Hx of PONV and No Hx of Motion Sickness Social History Smoking Status: Former smoker tobacco type: cigarettes Hx Alcohol Use: Yes Alcohol type: beer alcohol intake frequency: a few times a month Hx Substance Use: No substance use type: does not use Review of Systems denies fever/cough/ colds/ chest pain/ SOB/ NIKOLAS denies NIKOLAS Physical Exam Vital Signs Last Vital Signs Temp 36.5 C 09/20/20 16:35 Pulse 90 09/20/20 16:35 Resp 20 09/20/20 16:35 BP 117/69 09/20/20 16:35 Pulse Ox 94 09/20/20 16:35 ENMT Mouth: no TMJ abnormality and no dentition abnormality Thyromental Distance: > or= 3.5 Finger Breadths Mallampati Class: II Neck neck extension not limited Respiratory normal respiratory effort; no respiratory distress Auscultation: lungs clear to auscultation bilaterally Cardiovascular Rate/Rhythm: regular rate and regular rhythm Neurologic moves all extremities Psychiatric Orientation: alert and oriented x 3 Testing Laboratory Results 09/19/20 07:13 09/19/20 07:13 PT 11.3 Seconds (9.0-12.0) 09/20/20 07:26 INR 1.1 (0.9-1.1) 09/20/20 07:26 APTT 36.5 Seconds (21.0-31.0) H 09/18/20 15:16 Hemoglobin A1c 9.1 % (4.5-5.6) H 09/19/20 07:13 Urine Color Yellow 09/18/20 Unknown Urine Appearance Clear (Clear) 09/18/20 Unknown Urine pH 5.0 (4.5-7.5) 09/18/20 Unknown Ur Specific [place] 1.018 (1.000-1.030) 09/18/20 Unknown Urine Protein Trace (Negative) H 09/18/20 Unknown Urine Glucose (UA) 2+ (Negative) H 09/18/20 Unknown Urine Ketones Negative (Negative) 09/18/20 Unknown Urine Nitrite Negative (Negative) 09/18/20 Unknown Ur Leukocyte Esterase 2+ (Negative) H 09/18/20 Unknown Urine WBC (Auto) 10-30 /hpf (0-5) H 09/18/20 Unknown Urine RBC (Auto) 0-4 /hpf (0-4) 09/18/20 Unknown U Hyaline Cast (Auto) 1-5 /lpf (0-5) 09/18/20 Unknown U Epithel Cells (Auto) 10-20 /lpf (0-5) H 09/18/20 Unknown Urine Bacteria (Auto) Negative (Negative) 09/18/20 Unknown Blood Type O Positive 09/18/20 15:16 Antibody Screen NEGATIVE 09/18/20 15:16 09/18/20 Unknown Urine Culture - Preliminary Urine,Clean Catch Gram positive cocci in chains Gram positive cocci clusters 09/20/20 09/20/20 09/20/20 16:35 11:56 08:17 POC Glucose 135 H 103 H 103 H 09/20/20 09/20/20 09/20/20 07:52 07:51 05:45 POC Glucose 69 L* 59 L* 81
--- NOTE | 2020-09-20 17:25 | History & Physical Bridge Note ---
Date of Service September 20, 2020 History & Physical Bridge Note I have examined the patient, reviewed the History & Physical and in the interval since the performance of the History & Physical I have noted the following changes of clinical significance: no changes noted
--- NOTE | 2020-09-20 17:25 | Orthopedic Progress Note ---
Date of Service September 20, 2020 Assessment & Plan (1) Left displaced femoral neck fracture: The patient is a 80-year-old male with displaced left femoral neck fracture sustained after a fall from standing height. The patient was medically stabilized on 09/20/2020. I indicated the patient for left hip hemiarthroplasty. The patient was informed of the risks and benefits of surgery, which include but not limited to infection, bleeding, blood clots, damage to nerves, vessels, bone and soft tissue, dislocation, leg length discrepancy, need for additional surgery and . The patient chose to move forward with surgical intervention and informed consent was obtained. Admission and Anticipated Discharge Date Admission Date: September 18, 2020 Subjective Patient seen in preoperative holding, comfortable, pain well controlled. No acute issues. Review of Systems Review of Systems: All systems reviewed & are unremarkable except as noted in HPI & below Constitutional: as per Subjective / HPI Physical Exam Physical Exam: LLE NVSI +EHL/FHL/TA/GS SILT grossly, +2 DP pulse, compartments soft NT, short and externally rotated. Skin overlying left hip clean dry and intact. Constitutional: WD/WN, vitals as above Results & Data ([facility]) Vital Signs (Past 12 Hours) Vital Signs Temp Pulse Pulse Pulse Resp BP Pulse Ox 09/20/20 16:35 36.5 C 90 20 117/69 94 09/20/20 15:26 36.9 C 89 16 119/69 97 09/20/20 15:07 102 H 09/20/20 13:23 979 H 18 97 09/20/20 11:49 36.7 C 71 16 118/77 99 09/20/20 10:07 115 H 104/67 99 09/20/20 08:00 100 H 09/20/20 07:46 36.5 C 106 H 16 98/58 L 98 09/20/20 07:22 100 H 18 95 09/20/20 07:18 85
[2020-09-20] MEDS ORDERED: PROPOFOL IV EMULSION 10 MG/ML 20 ML VIAL IV ONE (17:26)
[2020-09-20] MEDS ORDERED: ONDANSETRON INJ 2 MG/ML 2 ML VIAL ONE (17:26)
[2020-09-20] MEDS ORDERED: DEXAMETHASONE SOD INJ 4 MG/ML VIAL ONE ×2 (17:26→19:32)
[2020-09-20] MEDS ORDERED: fentaNYL citrate 100 MCG/2 ML VIAL ONE ×2 (17:26→19:23)
[2020-09-20] MEDS ORDERED: ROCURONIUM BROMIDE 10 MG/ML 5 ML VIAL IV ONE (17:26)
[2020-09-20] MEDS ORDERED: LIDOCAINE 2% 2 ML VIAL/AMP(20MG/ML) INFIL ONE (17:26)
[2020-09-20] MEDS ORDERED: SUGAMMADEX SODIUM 200 MG/2 ML VIAL IV ONE (17:30)
--- NOTE | 2020-09-20 17:32 | Hospitalist Progress Note ---
Date of Service September 20, 2020 Assessment & Plan (1) Left displaced femoral neck fracture: (2) Acute pain of left hip: ASSESSMENT AND PLAN: This is an 80-year-old male with history of chronic respiratory failure, chronic obstructive pulmonary disease, history of bronchiectasis, diabetes, chronic kidney disease stage III, history of atrial fibrillation, tachybrady syndrome, status post pacemaker, diastolic congestive heart failure, presents with fall and left hip fracture. 1. Mechanical fall, left hip fracture - high risk for planned orthopedic surgery evaluated by Pulm and Cards no contraindication to proceed with surgery - needs stress dose steroids given history of chronic prednisone use: Hydrocortisone 50mg one dose, then 25mg q8h x 3, then resume Prednisone 10mg daily 2. Chronic respiratory failure, chronic obstructive pulmonary disease, history of bronchiectasis, interstitial lung disease, asbestosis, pneumoconiosis, uses oxygen at night with BiPAP. - stable overall continue usual bronchodilators 3. History of diastolic congestive heart failure. -- appears euvolemic today -- hold Torsemide on gentle [id number] -- monitor volume status closely 4. History of paroxysmal atrial fibrillation, tachybrady syndrome, status post pacemaker, on metoprolol and digoxin, which we will continue with holding parameters. -- INR 1.1 after Vit K -- coumadin on hold 5. History of diabetes. We will cut back on Lantus to 10 units subcutaneously in the a.m. as the patient is currently n.p.o. after midnight and continue insulin sliding scale. -- monitor Pharmacy Glycemic control consulted 6. Acute kidney injury on chronic kidney disease stage III, baseline creatinine seems to be around 1.7, creatinine was 2 at the time of discharge last admission, it is currently 2.2. -- hold Torsemide 7. Deep vein thrombosis prophylaxis. SCDs for now DISPOSITION: PT/OT eval may need Acute Rehab or SNF Admission and Anticipated Discharge Date Admission Date: September 18, 2020 Subjective ff up for left hip fracture seen resting in bed, comfortable denies left hip pain except when moving the leg no headache, dizziness, chest pain, dyspnea, palpitations, dizziness, abdominal pain, nausea no other symptoms Review of Systems Review of Systems: All systems reviewed & are unremarkable except as noted in Subjective Physical Exam Physical Exam: General- oriented x 3, not in distress, speaks in sentences with no effort or accessory muscle use Eyes- anicteric Neck- no JVD Lungs- clear breath sounds bilaterally, no rales/wheezes Heart- normal rate, regular rhythm; no murmurs Abdomen- normal bowel sounds, nondistended, soft, nontender Extremities- no pretibial edema, no calf tenderness Neuro- alert, oriented x 3; no gross focal neurologic deficits Skin- warm & dry Results & Data Results & [facility] ([facility]) Vital Signs (Past 12 Hours) Vital Signs Temp Pulse Pulse Pulse Resp BP Pulse Ox 09/20/20 16:35 36.5 C 90 20 117/69 94 09/20/20 15:26 36.9 C 89 16 119/69 97 09/20/20 15:07 102 H 09/20/20 13:23 979 H 18 97 09/20/20 11:49 36.7 C 71 16 118/77 99 09/20/20 10:07 115 H 104/67 99 09/20/20 08:00 100 H 09/20/20 07:46 36.5 C 106 H 16 98/58 L 98 09/20/20 07:22 100 H 18 95 09/20/20 07:18 85
[2020-09-20] MEDS ORDERED: ORTHO JOINT ANESTHETIC ONE (18:00)
[2020-09-20] MEDS ORDERED: ceFAZolin 2000MG 2,000 MG/15 ML SYR IV ONE (18:53)
[2020-09-20] MEDS ORDERED: ESMOLOL HCL INJ 10 MG/ML 10ML VIAL IV ONE (18:55)
[2020-09-20] MEDS ORDERED: PHENYLEPHRINE 100MCG/ML 5ML SYR ONE (18:55)
[2020-09-20] MEDS ORDERED: ePHEDrine sulfate 50 MG/ML SYR ONE (18:55)
[2020-09-20] MEDS ORDERED: METOPROLOL TARTRATE 1 MG/ML VIAL IV ONE (18:55)
--- NOTE | 2020-09-20 19:45 | Post Operative Brief Note ---
Immediate Post Op Note v1 Date of Surgery September 20, 2020 Pre & Post Diagnosis Operation Date: 09/20/20 09:20 Pre-Op Diagnosis: Left displaced femoral neck fracture Post-Op Diagnosis: Left displaced femoral neck fracture I identified the patient and participated in the time-out.: Yes Procedure Operation Date: 09/20/20 09:20 Actual Procedures p Left Hip Hemiarthroplasty- cemented(Left) - Alexey Valentine DO Surgeon Alexey Valentine DO Family Practice Md Dean Kirkland Estimated Blood Loss 180 Findings Consistent with Post-Op Diagnosis Fluids See anesthesia report Specimens Femoral head Anesthesia Type Spinal MAC Complications none Disposition Disposition: Recovery Room Overlapping Procedure I was present for: the critical portions of procedure. I was immediately available: during the entire case. Back up surgeon: was not required during procedure.
--- NOTE | 2020-09-20 19:48 | Operative Report ---
Post Operative Report Pre & Post Diagnosis Operation Date: 09/20/20 09:20 Pre-Op Diagnosis: Left displaced femoral neck fracture Post-Op Diagnosis: Left displaced femoral neck fracture I identified the patient and participated in the time-out.: Yes Procedure Operation Date: 09/20/20 09:20 Actual Procedures p Left Hip Hemiarthroplasty- cemented(Left) - Alexey Valentine DO Surgeon Alexey Valentine DO [employer]enger [employer] Inspector Dean Kirkland Estimated Blood Loss 180 Findings Consistent with Post-Op Diagnosis Fluids See anesthesia report Specimens Femoral head Anesthesia Type General Complications none Disposition Disposition: Recovery Room Indications The patient is a 80-year-old male with displaced left femoral neck fracture sustained after a fall from standing height. The patient was medically stabilized on 2020-09-20. I indicated the patient for left hip hemiarthroplasty. The patient was informed of the risks and benefits of surgery, which include but not limited to infection, bleeding, blood clots, damage to nerves, vessels, bone and soft tissue, dislocation, leg length discrepancy, need for additional surgery and . The patient chose to move forward with surgical intervention and informed consent was obtained. Description of Procedure COMPONENTS USED: Todd Biomet hip system: Femur size 7 Avenir cemented, femoral head 28+, 54 Shell. Following induction of adequate general anesthesia, the patient was transferred to the OR table and placed in the lateral decubitus position with right hip down. The left hip was prepped and draped in usual sterile manner. A timeout was performed, patient identified and site ernestina verified. Appropriate IV antibiotics were given. A posterior lateral incision was made. Subcutaneous tissue was sharply dissected down to the fascial layer. Electro cautery was used for hemostasis. Fascia was incised throughout the length of the wound and the piriformis was identified. A #1 Vicryl suture was used to tag the piriformis. The short external rotators were divided from the posterior aspect of the femur and a capsulotomy was performed. A second #1 Vicryl suture was used to tag the capsule. Next, I turned my attention to the femoral neck fracture. The fracture was relatively high on the calcar and decision was made to proceed with the oscillating saw and create the calcar osteotomy. This bone fragment was removed. Following this, tenaculum and cob elevator was utilized to remove the femoral head. The head was measured on the back table and the 54 mm femoral head was chosen as the size to be used. Next, attention was turned to the acetabulum which was found to have no significant arthritis. All bony debris was removed. A sponge was placed in the acetabulum. Attention was then turned to the proximal femur where box osteotome was used to gain access to the femoral canal. A canal finder and power lateralizing reamer were utilized to further open. Sequential raspings were taken up to a size 7, which was sunk completely and trial reduction was carried out and a 28+7 mm femoral head was chosen the size to be used with the 54 bipolar cup. Following a trial reduction, the hip was found to be stable to 45 degrees of internal rotation and 90 degrees of flexion with equal leg lengths. The calcar reamer was utilized to smooth the calcar and the instruments and trial components were removed. The hip was thoroughly irrigated with pulsatile irrigation. The canal was irrigated and dried, cement restrictor was placed and [place] cement was mixed. The size 7 Avenir cemented stem was placed and excess cement removed and held in place until cement was hardened. Following insertion of final stem component another trial reduction was carried out and again a 28+7 neck size was chosen as the size to be used. The final head and neck was impacted into position and the hip was reduced and stability assess and was found to be stable to 45 degrees of internal rotation and 90 degrees of flexion. A 3-minute Betadine soak was performed at this time. The wound was irrigated with copious amounts of sterile saline solution with bacitracin. Arlene-incisional soft tissue was injected with the [place] Orthomix which includes a combination of Ropivicaine 0.5% 150mg, Bupivicaine 0.5%/Epinephrine 1:200,000 30ml, Toradol 30mg, Dexamethasone 4mg, Ketamine 10mg, Clonidine 100mcg and NSS 30ml solution. The capsule was repaired using #5 fiberwire sutures through drill holes. Following this, the short external rotators were reapproximated to the posterior aspect of the femur also through drill holes and these were tied. Once again the wound was copiously irrigated with sterile saline solution with bacitracin. Fascia was closed using #1 Vicryl [id number] sutures, subcutaneous tissue was closed using 2-0 vicryl, and skin was closed with heber. A sterile dry dressing was applied which included willow incisional VAC and an abduction pillow was placed between the legs. The patient tolerated the procedure well and was taken to recovery room in stable condition. Due to the complex nature of the procedure, the entire surgery was performed with the operational assistance of Dean Kirkland PA-C. The assistant professor of business, under direct supervision, was involved in the actual performance of all aspects of the surgical procedure including patient positioning, hemostasis, tissue retraction, instrument management and wound closure. I attest to the content of the Intraoperative Record and any orders documented therein. Any exceptions are noted below.
[2020-09-20] MEDS ORDERED: NALOXONE HCL 0.4 MG/1 ML VIAL/CARP IV PRN (19:56)
--- NOTE | 2020-09-20 20:53 | XRay Report ---
LEFT HIP 2 VIEWS CLINICAL HISTORY: Postoperative examination. FINDINGS: AP and crosstable lateral views of the left hip are compared to study dated 09/18/2020. The skeletal structures are osteopenic. A unipolar left hip arthroplasty is in near anatomic alignment. N o acute fracture is identified. Skin clips, subcutaneous gas, and soft tissue swelling are expected p ostoperative findings. IMPRESSION: Expected postoperative findings status post left hip arthroplasty placement. No acute fra cture is seen. Electronically signed by: Arturo Charles M.D. 09/20/2020 8:52 PM
[2020-09-20] MEDS: cefTRIAXone SODIUM 2,000 MG in DEXTROSE 5% 50 ML IV SCH (21:34)
[2020-09-20] MEDS ORDERED: ATROPINE SULFATE 0.1 MG/ML 10ML SYR IV PRN (21:42)
[2020-09-20] MEDS ORDERED: ePHEDrine sulfate 50 MG/ML AMP IV PRN (21:42)
--- NOTE | 2020-09-20 21:43 | Anesthesiology Progress Note ---
Date of Service September 20, 2020 Anesthesia Post Procedure Vital Signs Vital Signs: Temp Pulse Pulse Pulse Resp BP Pulse Ox 09/20/20 21:32 36.1 C L 94 H 18 96/49 L 95 09/20/20 20:50 110 H 22 96/70 L 97 09/20/20 20:40 36.0 C L 108 H 18 89/62 L 96 09/20/20 20:30 105 H 12 91/58 L 97 09/20/20 20:20 108 H 21 101/65 99 09/20/20 20:10 113 H 15 71/61 L 92 09/20/20 20:08 36.7 C 105 H 24 87/60 L 96 09/20/20 16:35 36.5 C 90 20 117/69 94 09/20/20 15:26 36.9 C 89 16 119/69 97 09/20/20 15:07 102 H 09/20/20 13:23 979 H 18 97 09/20/20 11:49 36.7 C 71 16 118/77 99 09/20/20 10:07 115 H 104/67 99 09/20/20 08:00 100 H 09/20/20 07:46 36.5 C 106 H 16 98/58 L 98 09/20/20 07:22 100 H 18 95 09/20/20 07:18 85 09/20/20 03:11 36.5 C 79 20 111/78 99 09/20/20 01:26 88 09/19/20 23:04 36.5 C 103 H 19 122/81 100 Pain Intensity Left Hip: Pain Intensity: 0 Transfer of Care Handoff Completed per policy Notes Mental Status: alert / awake / arousable and participated in evaluation Patient Amnestic to Procedure: Yes Nausea / Vomiting: adequately controlled Pain: adequately controlled Airway Patency, RR, SpO2: stable & adequate BP & HR: stable & adequate Hydration State: stable & adequate Anesthetic Complications: no major complications apparent and Pt Satisfied with anesthetic care
[2020-09-20] MEDS ORDERED: SODIUM CHLORIDE 0.9% 1000ML 1,000 ML IV ONE (21:48)
[2020-09-20] MEDS: SIMVASTATIN 20 MG TAB PO SCH (21:56)
[2020-09-20] MEDS: TAMSULOSIN HCL 0.4 MG CAP PO SCH (21:56)
[2020-09-21] MEDS: Albuterol HFA 8 GM Inhaler (Combivent Respimat P&T Subs) INH SCH ×5 (00:09→21:54)
[2020-09-21] MEDS: Ipratropium HFA Inhaler (Combivent Respimat P&T Subs) INH SCH ×5 (00:09→21:54)
[2020-09-21] MEDS: INSULIN ASPART 100 UNITS/ML 3 ML PEN SC SCH ×5 (03:52→20:46)
[2020-09-21] MEDS ORDERED: ROPIVACAINE 0.5% HCL/PF 150 MG, BUPIVACAINE 0.75% MPF 20 ML, EPINEPHrine 0.15 MG, Ketor... INFIL SCH (06:00)
--- NOTE | 2020-09-21 07:13 | Orthopedic Progress Note ---
Date of Service September 21, 2020 Assessment & Plan (1) Left displaced femoral neck fracture: s/p left hip hemiarthroplasty POD#1 -ancef x 24 -DVT ppx: SCDs, TEDs, Lovenox daily -WBAT LLE -Posterior hip precautions -PT/OT -PO XR demonstrates well aligned well fixed cemented prothesis without fr acture/dislocation -am labs pending Admission and Anticipated Discharge Date Admission Date: September 18, 2020 Subjective Post Operative Progress Note Patient seen in PACU after surgery and this morning, current laying in bed, comfortable, denies complaints, pain well controlled, no acute issues. Denies F/C/N/V/SOB/CP. Review of Systems Review of Systems: All systems reviewed & are unremarkable except as noted in HPI & below Constitutional: as per Subjective / HPI Physical Exam Physical Exam: LLE NVSI +EHL/FHL/TA/GS SILT grossly, +2 DP pulse, compartments soft NT, dressing cdi. Constitutional: WD/WN, vitals as above Results & Data ([facility]) Vital Signs (Past 12 Hours) Vital Signs Temp Pulse Pulse Pulse Resp BP Pulse Ox 09/21/20 05:31 107 H 09/21/20 03:46 36 C L 107 H 18 120/65 97 09/21/20 01:01 36.1 C L 85 18 96/58 L 98 09/20/20 23:48 35.8 C L 102 H 18 88/57 L 97 09/20/20 23:09 35.6 C L 113 H 20 89/58 L 99 09/20/20 22:14 36.4 C L 110 H 20 83/54 L 93 09/20/20 21:32 36.1 C L 94 H 18 96/49 L 95 09/20/20 20:50 110 H 22 96/70 L 97 09/20/20 20:40 36.0 C L 108 H 18 89/62 L 96 09/20/20 20:30 105 H 12 91/58 L 97 09/20/20 20:20 108 H 21 101/65 99 09/20/20 20:10 113 H 15 71/61 L 92 09/20/20 20:08 36.7 C 105 H 24 87/60 L 96 Laboratory Results 09/21/20 09/20/20 09/20/20 Range/Units 03:46 23:46 21:10 PT (9.0-12.0) Seconds INR (0.9-1.1) POC Glucose 281 H 171 H 131 H (70-99) mg/dl Estimat Average Glucose mg/dl Hemoglobin A1c (4.5-5.6) % Cortisol AM Sample (4.3-22.4) mcg/dl 09/20/20 09/20/20 09/20/20 Range/Units 20:14 16:35 11:56 PT (9.0-12.0) Seconds INR (0.9-1.1) POC Glucose 132 H 135 H 103 H (70-99) mg/dl Estimat Average Glucose mg/dl Hemoglobin A1c (4.5-5.6) % Cortisol AM Sample (4.3-22.4) mcg/dl 09/20/20 09/20/20 09/20/20 Range/Units 08:17 07:52 07:51 PT (9.0-12.0) Seconds INR (0.9-1.1) POC Glucose 103 H 69 L* 59 L* (70-99) mg/dl Estimat Average Glucose mg/dl Hemoglobin A1c (4.5-5.6) % Cortisol AM Sample (4.3-22.4) mcg/dl 09/20/20 09/19/20 09/19/20 Range/Units 07:26 07:13 07:13 PT 11.3 (9.0-12.0) Seconds INR 1.1 (0.9-1.1) POC Glucose (70-99) mg/dl Estimat Average Glucose 214 mg/dl Hemoglobin A1c 9.1 H (4.5-5.6) % Cortisol AM Sample 6.98 (4.3-22.4) mcg/dl
[2020-09-21 07:32] LABS: Hemoglobin 9.6 g/dL (14.0-18.0); Immature Granulocytes # (auto) 0.06 K/uL (0.00-0.02); Immature Granulocytes % (auto) 0.4 %; Lymphocytes # (auto) 0.76 K/uL (1.2-3.4); Lymphocytes % (auto) 4.9 %; Mean Corpuscular Hemoglobin 26.8 pg (25-34); Mean Corpuscular Volume 86.6 fL (80-100); Mean Platelet Volume 9.8 fL (7.4-10.4); Monocytes # (auto) 0.65 K/uL (0.11-0.59); Monocytes % (auto) 4.2 %; Neutrophils # (auto) 14.08 K/uL (1.4-6.5); Neutrophils % (auto) 90.5 %; Platelet Count 193 K/uL (130-400); RDW Standard Deviation 54.3 fL (36.4-46.3); Red Blood Count 3.58 M/uL (4.7-6.1); White Blood Count 15.55 K/uL (4.8-10.8)
[2020-09-21 07:43] LABS: INR 1.2 (0.9-1.1); Prothrombin Time 12.4 Seconds (9.0-12.0)
[2020-09-21] MEDS: ACETYLCYSTEINE 10% INHAL SOLN 4 ML **DISPENSED BY RESP. INH SCH ×2 (07:50→19:31)
[2020-09-21 07:53] LABS: Calcium 8.2 mg/dl (8.5-10.1); Creatinine Clr Calc Pharmacy 36.1 ml/min; Est GFR (African American) 41.7 ml/min; Potassium 4.9 mmol/L (3.5-5.1)
[2020-09-21] MEDS: HYDROCORTISONE SOD 25 MG in SYRINGE 0 ML IV SCH (08:19)
[2020-09-21] MEDS: ENOXAPARIN INJ 40 MG/0.4 ML SYR SQ SCH (08:19)
[2020-09-21] MEDS: UMECLIDINIUM/VILANTEROL 62.5/25MCG 7 PUFFS/INHALER INH SCH (08:20)
[2020-09-21] MEDS: TORSEMIDE 10 MG TAB PO SCH (08:20)
[2020-09-21] MEDS: TRIAMCINOLONE ACET 0.1% CR 15 GM TUBE TOP SCH ×2 (08:20→20:01)
[2020-09-21] MEDS: INSULIN GLARGINE SOLOSTAR 100 UNITS/ML 3 ML PEN SC SCH ×2 (08:27→20:45)
--- NOTE | 2020-09-21 09:29 | Pulmonology Progress Note ---
Date of Service September 21, 2020 Assessment & Plan (1) Acute on chronic respiratory failure with hypoxia and hypercapnia: Impression: 80-year-old male on chronic prednisone therapy and nocturnal A VAPS therapy with PFTs showing severe airflow obstruction admitted status post fall with nondisplaced hip fracture. 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 Recommend continuing with diuretics to keep the patient negative balance Pulmonary will follow peripherally. Call directly with any questions Please note the above document was generated using voice recognition software. It may contain grammatical, syntax or spelling errors.Any formal questions or concerns about the content, text or information contained within the body of this dictation should be directly addressed to the provider for clarification. Admission and Anticipated Discharge Date Admission Date: September 18, 2020 Subjective Patient seen and examined at bedside. No acute distress. No adverse events overnight. Patient had surgery done yesterday. Denies any shortness of breath. No chest pain. No cough. He states is feeling much better when it comes to his breathing. No nausea or vomiting. Compliant with his AVAPS machine. Review of Systems Review of Systems: All systems reviewed & are unremarkable except as noted in Subjective Physical Exam Physical Exam: Constitutional: No acute distress HEENT: EOMI, PERRLA, puffy eyelids Respiratory system: Decreased air entry bilaterally, no wheeze, positive rhonchi positive crackles, bilateral lower lobes more on the right side CVS: S1-S2 positive, no murmurs or gallops, distant heart sounds, irregular Abdomen: Soft, nontender, nondistended, positive bowel sounds x4 Extremities: +2 pulses bilaterally radialis/ dorsalis pedis, no cyanosis, +1 pitting edema bilateral lower extremity Neuro: Awake alert oriented x3 Psych: Normal mood and affect G/U: No Drew Skin: no rashes, warm and dry Lymphatic: no cervical or axillary lymphadenopathy Results & Data Results & Data ([facility]) Vital Signs (Past 12 Hours) Vital Signs Temp Pulse Pulse Resp BP Pulse Ox 09/21/20 07:51 99 H 18 98 09/21/20 07:24 36.5 C 100 H 20 91/63 L 97 09/21/20 05:31 107 H 09/21/20 03:46 36 C L 107 H 18 120/65 97 09/21/20 01:01 36.1 C L 85 18 96/58 L 98 09/20/20 23:48 35.8 C L 102 H 18 88/57 L 97 09/20/20 23:09 35.6 C L 113 H 20 89/58 L 99 09/20/20 22:14 36.4 C L 110 H 20 83/54 L 93 09/20/20 21:32 36.1 C L 94 H 18 96/49 L 95 09/21/20 07:07 09/21/20 07:07 PG Care Time/CCT Total # of Minutes Spent Total Time Spent with Patient: Total time spent is greater than 50% in coordination of care (as documented) at patient's floor/unit and/or counseling patient: Coding Level of Care Code 82637 Subseq Hosp Care Lvl 3 Diagnoses Acute on chronic respiratory failure with hypoxia and hypercapnia J96.21; J96.22
[2020-09-21] MEDS: METOPROLOL TARTRATE 50 MG TAB PO SCH ×2 (09:51→20:00)
--- NOTE | 2020-09-21 10:58 | Pharmacy Report ---
Pharmacy Glycemic Short Note 2 - Date of Service September 21, 2020 - Glycemic Short BSG Results (Last 24 hours): 09/20/20 09/20/20 09/20/20 11:56 16:35 20:14 Glucose POC Glucose 103 H 135 H 132 H 09/20/20 09/20/20 09/21/20 21:10 23:46 03:46 Glucose POC Glucose 131 H 171 H 281 H 09/21/20 09/21/20 07:07 07:22 Glucose 264 H POC Glucose 285 H OUTPATIENT ANTIDIABETIC REGIMEN: * Lantus 20-22 units AM * Novolog 4-6 units TID * HbA1c = 9.1% (09/19/20) ASSESSMENT: 09/21: * BSGs trended upwards postoperatively which was expected secondary to D5 running, stress dose steroids and postoperative stress * Understand risk of hypoglycemia but now that patient is eating, need to be more aggressive with dosing * Fasting BSG uncontrolled at 285 mg/dL * Increased basal insulin this morning and tightened Novolog. Will change goal range as well to add more bolus coverage 09/20: * 80 yo M who is listed as having T1DM but likely has T2DM (see below) admitted 09/18 2nd fall / femur fracture. Surgery required in order to restore ability to ambulate, but patient very high risk due to severe cardiac and pulmonary disease, uncontrolled diabetes, and extensive surgery required. Surgery was also delayed to today due to INR elevation, but plan for OR today per Dr. Rucker. Stress dose steroids ordered (hydrocortisone 50 mg x1 then 25 mg IV q8h x3 doses with plan to resume prednisone after that point). Dextrose infusion currently running for hypoglycemia this AM, which is what prompted this consult T1DM vs. T2DM? * Consulted 09/20 AM for hypoglycemia. This hypoglycemia was unanticipated given reported history of T1DM and also the patient receiving less than half of his outpatient basal insulin dose yesterday. A more modest 20% reduction is more common for NPO adjustment for a patient with T1DM, and it would be more likely for the patient to be significantly hyperglycemic this AM due to basal insulin deficiency if he truly did have T1DM. * I called and spoke with the patient - he does report a history of type 1 diabetes. However, on further questioning, he notes that he was diagnosed with diabetes in the "late s" in about [id number] and was originally managed with oral agents only x3-5 years. He notes that in April of 1999 he was started on insulin at this institution. When questioned further about type 1 vs type 2 diabetes, he reported that it was "never made clear" to him what type of diabetes he has and that different documents he receives has type 1 listed on some and type 2 listed on others * The patient absolutely has T2DM based on our conversation, and being initially managed on oral agents alone for years prior to starting insulin. However, although rare, patients can have a late-onset of T1DM therefore I looked back at April 1999 documentation - per the H&P, he has T2DM and was started on insulin therapy during that encounter due to ongoing prednisone use. T1DM was not mentioned. This encounter was >20 years ago at this point, however, it is unlikely (although not impossible) that the patient has T1DM * Discussed above w Dr. Rucker - noted that T1DM is listed in problem list. Patient should absolutely have T2DM listed, and likely does not have T1DM. Dr. Rucker OK with treating as T2DM for now, and holding basal insulin pre- operatively given BSG of 59 mg/dL this AM * Plan to continue D5W infusion until post-op to prevent severe hypoglycemia. Dr. Rucker to likely d/c all fluids post-op and may order a diet. Discussed that low-lows and high-highs should be avoided, especially for this patient, and that an insulin drip may be required post-op given high risk and steroid use. Dr. Rucker agreed that an insulin drip could be required, and initiation would depend on BSG's PLAN FOR INPATIENT GLYCEMIC CONTROL: * Basal insulin * Lantus 15 units SC x 1 this AM * Will add a low dose (0-5 units) scale for this evening * Bolus insulin * NovoLog per scale ACHS or Q6hrs while NPO * Goal Range: Low 110 mg/dL - High 140 mg/dL * Correction Factor: 20 mg/dL/unit * Nutritional / Prandial insulin per carb ratio of 1 unit per 6 grams CHO consumed PLAN FOR DISCHARGE: * To be determined
--- NOTE | 2020-09-21 11:38 | Hospitalist Progress Note ---
Date of Service September 21, 2020 Assessment & Plan (1) Left displaced femoral neck fracture: (2) Acute pain of left hip: ASSESSMENT AND PLAN: This is an 80-year-old male with history of chronic respiratory failure, chronic obstructive pulmonary disease, history of bronchiectasis, diabetes, chronic kidney disease stage III, history of atrial fibrillation, tachybrady syndrome, status post pacemaker, diastolic congestive heart failure, presents with fall and left hip fracture. 1. Mechanical fall, left hip fracture - high risk for planned orthopedic surgery evaluated by Pulm and Cards no contraindication to proceed with surgery -Given stress dose steroids given history of chronic prednisone use: Hydrocortisone 50mg one dose, then 25mg q8h x 3 09/21/2020 Postop day #1 Received general anesthesia, estimated blood loss 180 cc Blood pressure systolic 90s, asymptomatic Hg from 11.1, today 9.[address] Metoprolol on hold IV NSS 60 cc/hr, monitor closely patient has history of CHF 2. Chronic respiratory failure, chronic obstructive pulmonary disease, history of bronchiectasis, interstitial lung disease, asbestosis, pneumoconiosis, uses oxygen at night with BiPAP. - Respiratory status stable overall continue usual bronchodilators 3. History of diastolic congestive heart failure. --Patient on the dry side -- hold Torsemide on gentle NSS -- monitor volume status closely 4. History of paroxysmal atrial fibrillation, tachybrady syndrome, status post pacemaker, on metoprolol and digoxin, which we will continue with holding parameters. -- INR 1.0 after Vit K -- coumadin on hold, resume when okay with general surgery 5. History of diabetes. We will cut back on Lantus to 10 units subcutaneously in the a.m. as the patient is currently n.p.o. after midnight and continue insulin sliding scale. -- monitor Pharmacy Glycemic control consulted 6. Acute kidney injury on chronic kidney disease stage III, baseline creatinine seems to be around 1.7, c -- crea 1.7 -- hold Torsemide as blood pressure is on the lower side Monitor 7. Deep vein thrombosis prophylaxis. SCDs for now Resume Coumadin when okay with orthopedic service DISPOSITION: PT/OT eval may need Acute Rehab or SNF plan of care discussed with patient in detail and at length all questions answered he is understanding, agreeable, comfortable with the plan of care Admission and Anticipated Discharge Date Admission Date: September 18, 2020 Subjective Follow-up for left hip fracture, status post surgery Seen sitting up in bed, comfortable, not in distress, in good spirits States he feels fine overall today Denies dizziness, headache, nausea vomiting, chest pain, shortness of breath, palpitations No abdominal pain Appetite is very good Denies hip pain No other symptom Review of Systems Review of Systems: All systems reviewed & are unremarkable except as noted in Subjective Physical Exam Physical Exam: General- oriented x 3, not in distress, speaks in sentences with no effort or accessory muscle use Eyes- anicteric Neck- no JVD Lungs- clear breath sounds bilaterally,no crackles, no wheezing bilaterally Heart- normal rate, regular rhythm; no murmurs Abdomen- normal bowel sounds, nondistended, soft, nontender Extremities- no pretibial edema, no calf tenderness Left hip-dressing in place-no bleeding or discharge Minimal edema on the left hip, no hematoma Neuro- alert, oriented x 3; no gross focal neurologic deficits Skin- warm & dry Results & Data Results & Data ([facility]) Vital Signs (Past 12 Hours) Vital Signs Temp Pulse Pulse Resp BP Pulse Ox 09/21/20 09:49 104/61 94 09/21/20 07:51 99 H 18 98 09/21/20 07:24 36.5 C 100 H 20 91/63 L 97 09/21/20 05:31 107 H 09/21/20 03:46 36 C L 107 H 18 120/65 97 09/21/20 01:01 36.1 C L 85 18 96/58 L 98 09/20/20 23:48 35.8 C L 102 H 18 88/57 L 97 all noted and reviewed including below Laboratory Results Laboratory Results - last 24 hr 09/20/20 09/20/20 09/20/20 11:56 16:35 20:14 WBC RBC Hgb Hct MCV MCH MCHC RDW Std Deviation RDW Coeff of Samira Plt Count MPV Immature Gran % (Auto) Neut % (Auto) Lymph % (Auto) [place] % (Auto) Eos % (Auto) Baso % (Auto) Neut # (Auto) Lymph # (Auto) [place] # (Auto) Eos # (Auto) Baso # (Auto) Immature Gran # (Auto) PT INR Sodium Potassium Chloride Carbon Dioxide Anion Gap BUN Creatinine Est Cr Clr Drug Dosing Est GFR ( Amer) Est GFR (Non-Af Amer) BUN/Creatinine Ratio Glucose POC Glucose 103 H 135 H 132 H Calcium 09/20/20 09/20/20 09/21/20 21:10 23:46 03:46 WBC RBC Hgb Hct MCV MCH MCHC RDW Std Deviation RDW Coeff of Samira Plt Count MPV Immature Gran % (Auto) Neut % (Auto) Lymph % (Auto) [place] % (Auto) Eos % (Auto) Baso % (Auto) Neut # (Auto) Lymph # (Auto) [place] # (Auto) Eos # (Auto) Baso # (Auto) Immature Gran # (Auto) PT INR Sodium Potassium Chloride Carbon Dioxide Anion Gap BUN Creatinine Est Cr Clr Drug Dosing Est GFR ( Amer) Est GFR (Non-Af Amer) BUN/Creatinine Ratio Glucose POC Glucose 131 H 171 H 281 H Calcium 09/21/20 09/21/20 09/21/20 07:07 07:07 07:07 WBC 15.55 H RBC 3.58 L Hgb 9.6 L Hct 31.0 L MCV 86.6 MCH 26.8 MCHC 31.0 L RDW Std Deviation 54.3 H RDW Coeff of Samira 17.0 H Plt Count 193 MPV 9.8 Immature Gran % (Auto) 0.4 Neut % (Auto) 90.5 Lymph % (Auto) 4.9 [place] % (Auto) 4.2 Eos % (Auto) 0.0 Baso % (Auto) 0.0 Neut # (Auto) 14.08 H Lymph # (Auto) 0.76 L [place] # (Auto) 0.65 H Eos # (Auto) 0.00 Baso # (Auto) 0.00 Immature Gran # (Auto) 0.06 H PT 12.4 H INR 1.2 H Sodium 141 Potassium 4.9 D Chloride 103 Carbon Dioxide 29 Anion Gap 9.0 BUN 59 H Creatinine 1.73 H Est Cr Clr Drug Dosing 36.1 Est GFR ( Amer) 41.7 Est GFR (Non-Af Amer) 36.0 BUN/Creatinine Ratio 34.0 H Glucose 264 H POC Glucose Calcium 8.2 L 09/21/20 09/21/20 09/21/20 07:22 11:26 11:27 WBC RBC Hgb Hct MCV MCH MCHC RDW Std Deviation RDW Coeff of Samira Plt Count MPV Immature Gran % (Auto) Neut % (Auto) Lymph % (Auto) [place] % (Auto) Eos % (Auto) Baso % (Auto) Neut # (Auto) Lymph # (Auto) [place] # (Auto) Eos # (Auto) Baso # (Auto) Immature Gran # (Auto) PT INR Sodium Potassium Chloride Carbon Dioxide Anion Gap BUN Creatinine Est Cr Clr Drug Dosing Est GFR ( Amer) Est GFR (Non-Af Amer) BUN/Creatinine Ratio Glucose POC Glucose 285 H 340 H* 369 H* Calcium
[2020-09-21] MEDS ORDERED: INSULIN HUMAN REGULAR IV BOLUS 3.5 UNITS in SYRINGE 0 ML IV ONE (11:50)
[2020-09-21] MEDS ORDERED: INSULIN REGULAR 250 UNITS in SODIUM CHLORIDE 0.9% 247.5 ML IV SCH (11:50)
[2020-09-21] MEDS: LEVALBUTEROL HCL 1.25 MG/3 ML NEB INH PRN (19:31)
[2020-09-21] MEDS: SIMVASTATIN 20 MG TAB PO SCH (19:59)
[2020-09-21] MEDS: TAMSULOSIN HCL 0.4 MG CAP PO SCH (20:01)
[2020-09-21] MEDS: cefTRIAXone SODIUM 2,000 MG in DEXTROSE 5% 50 ML IV SCH (21:43)
[2020-09-22] MEDS ORDERED: INSULIN GLARGINE SOLOSTAR 100 UNITS/ML 3 ML PEN SC ONE (06:45)
[2020-09-22] MEDS: Ipratropium HFA Inhaler (Combivent Respimat P&T Subs) INH SCH ×3 (07:08→19:40)
[2020-09-22] MEDS: Albuterol HFA 8 GM Inhaler (Combivent Respimat P&T Subs) INH SCH ×3 (07:08→19:40)
[2020-09-22] MEDS: ACETYLCYSTEINE 10% INHAL SOLN 4 ML **DISPENSED BY RESP. INH SCH ×2 (07:09→19:43)
[2020-09-22] MEDS: METOPROLOL TARTRATE 50 MG TAB PO SCH ×2 (08:13→20:42)
[2020-09-22] MEDS: TRIAMCINOLONE ACET 0.1% CR 15 GM TUBE TOP SCH ×2 (08:14→21:44)
[2020-09-22] MEDS: INSULIN ASPART 100 UNITS/ML 3 ML PEN SC SCH ×4 (08:14→20:38)
[2020-09-22] MEDS: ENOXAPARIN INJ 40 MG/0.4 ML SYR SQ SCH (08:14)
[2020-09-22] MEDS: UMECLIDINIUM/VILANTEROL 62.5/25MCG 7 PUFFS/INHALER INH SCH (08:14)
[2020-09-22 08:44] LABS: INR 1.7 (0.9-1.1); Prothrombin Time 16.7 Seconds (9.0-12.0)
[2020-09-22] MEDS ORDERED: predniSONE 10 MG TABLET PO ONE (09:00)
--- NOTE | 2020-09-22 09:04 | Pharmacy Report ---
Pharmacy Glycemic Short Note 2 - Date of Service September 22, 2020 - Glycemic Short BSG Results (Last 24 hours): 09/21/20 09/21/20 09/21/20 11:26 11:27 13:28 POC Glucose 340 H* 369 H* 256 H 09/21/20 09/21/20 09/21/20 14:27 15:30 16:30 POC Glucose 218 H 186 H 157 H 09/21/20 09/21/20 09/21/20 17:32 18:25 19:29 POC Glucose 127 H 129 H 149 H 09/21/20 09/21/20 09/22/20 20:10 22:27 00:26 POC Glucose 138 H 134 H 139 H 09/22/20 09/22/20 09/22/20 02:28 04:45 06:22 POC Glucose 148 H 112 H 87 09/22/20 07:59 POC Glucose 93 OUTPATIENT ANTIDIABETIC REGIMEN: * Lantus 20-22 units AM * Novolog 4-6 units TID * HbA1c = 9.1% (09/19/20) ASSESSMENT: 09/22: * Matt's BSGs were significantly elevated postoperatively yesterday: 281-285-369 mg/dL * An insulin drip was started around noon yesterday. Patient required ~2.5 units/hr on average over a 19 hour period until the drip was stopped around 0700 this morning when BSG was 87 mg/dL. * In addition, patient received 15 units of basal + 27 units of bolus * Will give 20 units of Lantus this AM. A small basal scale will again be added to HS. Empirically tightened Novolog as well to cover for Prednisone dose this AM. 09/21: * BSGs trended upwards postoperatively which was expected secondary to D5 running, stress dose steroids and postoperative stress * Understand risk of hypoglycemia but now that patient is eating, need to be more aggressive with dosing * Fasting BSG uncontrolled at 285 mg/dL * Increased basal insulin this morning and tightened Novolog. Will change goal range as well to add more bolus coverage 09/20: * 80 yo M who is listed as having T1DM but likely has T2DM (see below) admitted 09/18 2nd fall / femur fracture. Surgery required in order to restore ability to ambulate, but patient very high risk due to severe cardiac and pulmonary disease, uncontrolled diabetes, and extensive surgery required. Surgery was also delayed to today due to INR elevation, but plan for OR today per Dr. Rucker. Stress dose steroids ordered (hydrocortisone 50 mg x1 then 25 mg IV q8h x3 doses with plan to resume prednisone after that point). Dextrose infusion currently running for hypoglycemia this AM, which is what prompted this consult T1DM vs. T2DM? * Consulted 09/20 AM for hypoglycemia. This hypoglycemia was unanticipated given reported history of T1DM and also the patient receiving less than half of his outpatient basal insulin dose yesterday. A more modest 20% reduction is more common for NPO adjustment for a patient with T1DM, and it would be more likely for the patient to be significantly hyperglycemic this AM due to basal insulin deficiency if he truly did have T1DM. * I called and spoke with the patient - he does report a history of type 1 diabetes. However, on further questioning, he notes that he was diagnosed with diabetes in the "late 's" in about [id number] and was originally managed with oral agents only x3-5 years. He notes that in April of 1999 he was started on insulin at this institution. When questioned further about type 1 vs type 2 diabetes, he reported that it was "never made clear" to him what type of diabetes he has and that different documents he receives has type 1 listed on some and type 2 listed on others * The patient absolutely has T2DM based on our conversation, and being initially managed on oral agents alone for years prior to starting insulin. However, although rare, patients can have a late-onset of T1DM therefore I looked back at April 1999 documentation - per the H&P, he has T2DM and was started on insulin therapy during that encounter due to ongoing prednisone use. T1DM was not mentioned. This encounter was >20 years ago at this point, however, it is unlikely (although not impossible) that the patient has T1DM * Discussed above w Dr. Rucker - noted that T1DM is listed in problem list. Patient should absolutely have T2DM listed, and likely does not have T1DM. Dr. Rucker OK with treating as T2DM for now, and holding basal insulin pre- operatively given BSG of 59 mg/dL this AM * Plan to continue D5W infusion until post-op to prevent severe hypoglycemia. Dr. Rucker to likely d/c all fluids post-op and may order a diet. Discussed that low-lows and high-highs should be avoided, especially for this patient, and that an insulin drip may be required post-op given high risk and steroid use. Dr. Rucker agreed that an insulin drip could be required, and initiation would depend on BSG's PLAN FOR INPATIENT GLYCEMIC CONTROL: * Discontinue IV insulin drip * Basal insulin - increased * Lantus 20 units SC x 1 this AM * Will add a low dose (0-5 units) scale for this evening * Bolus insulin * NovoLog per scale ACHS or Q6hrs while NPO * Goal Range: Low 110 mg/dL - High 140 mg/dL * Correction Factor: 15 mg/dL/unit * Nutritional / Prandial insulin per carb ratio of 1 unit per 4 grams CHO consumed PLAN FOR DISCHARGE: * To be determined
--- NOTE | 2020-09-22 09:39 | Orthopedic Progress Note ---
Date of Service September 22, 2020 Assessment & Plan (1) Left displaced femoral neck fracture: s/p left hip hemiarthroplasty POD#2 -ancef x 24 -DVT ppx: SCDs, TEDs, Lovenox daily -WBAT LLE -Posterior hip precautions -PT/OT -PO XR demonstrates well aligned well fixed cemented prothesis without fr acture/dislocation -am labs, pending Admission and Anticipated Discharge Date Admission Date: September 18, 2020 Subjective Post Operative Progress Note Patient seen sitting up in bed, comfortable, denies complaints, pain well controlled, no acute issues. Denies F/C/N/V/SOB/CP. Review of Systems Review of Systems: All systems reviewed & are unremarkable except as noted in HPI & below Constitutional: as per Subjective / HPI Physical Exam Physical Exam: LLE NVSI +EHL/FHL/TA/GS SILT grossly, +2 DP pulse, compartments soft NT, dressing cdi. Constitutional: WD/WN, vitals as above Results & Data ([facility]) Vital Signs (Past 12 Hours) Vital Signs Temp Pulse Pulse Resp BP BP Pulse Ox 09/22/20 07:15 120 H 09/22/20 07:11 90 16 99 09/22/20 07:10 90 16 99 09/22/20 07:00 37 C 101 H 20 87/55 L 109/72 100 09/22/20 03:00 37.1 C 77 20 103/73 98 09/22/20 00:02 113 H 09/21/20 22:47 36.8 C 99 H 20 97/63 L 97 Laboratory Results 09/22/20 09/22/20 09/22/20 Range/Units 07:59 07:53 06:22 PT 16.7 H (9.0-12.0) Seconds INR 1.7 H (0.9-1.1) POC Glucose 93 87 (70-99) mg/dl 09/22/20 09/22/20 09/22/20 Range/Units 04:45 02:28 00:26 PT (9.0-12.0) Seconds INR (0.9-1.1) POC Glucose 112 H 148 H 139 H (70-99) mg/dl 09/21/20 09/21/20 09/21/20 Range/Units 22:27 20:10 19:29 PT (9.0-12.0) Seconds INR (0.9-1.1) POC Glucose 134 H 138 H 149 H (70-99) mg/dl 09/21/20 09/21/20 09/21/20 Range/Units 18:25 17:32 16:30 PT (9.0-12.0) Seconds INR (0.9-1.1) POC Glucose 129 H 127 H 157 H (70-99) mg/dl 09/21/20 09/21/20 09/21/20 Range/Units 15:30 14:27 13:28 PT (9.0-12.0) Seconds INR (0.9-1.1) POC Glucose 186 H 218 H 256 H (70-99) mg/dl 09/21/20 09/21/20 Range/Units 11:27 11:26 PT (9.0-12.0) Seconds INR (0.9-1.1) POC Glucose 369 H* 340 H* (70-99) mg/dl
[2020-09-22 10:01] LABS: Basophils # (auto) 0.01 K/uL (0-0.2); Basophils % (auto) 0.1 %; Eosinophils # (auto) 0.01 K/uL (0-0.5); Eosinophils % (auto) 0.1 %; Hematocrit (blood only) 27.1 % (42-52); Hemoglobin 8.5 g/dL (14.0-18.0); Immature Granulocytes # (auto) 0.12 K/uL (0.00-0.02); Immature Granulocytes % (auto) 0.8 %; Lymphocytes # (auto) 1.47 K/uL (1.2-3.4); Lymphocytes % (auto) 9.7 %; Mean Corpuscular Hemoglobin 26.4 pg (25-34); Mean Corpuscular Hgb Conc 31.4 g/dL (32-36); Mean Corpuscular Volume 84.2 fL (80-100); Mean Platelet Volume 10.2 fL (7.4-10.4); Neutrophils # (auto) 12.27 K/uL (1.4-6.5); Neutrophils % (auto) 81.3 %; Platelet Count 176 K/uL (130-400); RDW Coefficient of Variation 17.1 % (11.5-14.5); RDW Standard Deviation 52.4 fL (36.4-46.3); Red Blood Count 3.22 M/uL (4.7-6.1); White Blood Count 15.08 K/uL (4.8-10.8)
--- NOTE | 2020-09-22 14:43 | Hospitalist Progress Note ---
Date of Service September 22, 2020 Assessment & Plan (1) Left displaced femoral neck fracture: (2) Acute pain of left hip: This is an 80-year-old male with history of chronic respiratory failure, chronic obstructive pulmonary disease, history of bronchiectasis, diabetes, chronic kidney disease stage III, history of atrial fibrillation, tachybrady syndrome, status post pacemaker, diastolic congestive heart failure, presents with fall and left hip fracture. Mechanical fall, left hip fracture High risk for planned orthopedic surgery Evaluated by Pulm and Cards and was cleared for surgery with accepted risk Given stress dose steroids given history of chronic prednisone use: Status post left hip hemiarthroplasty, POD #2 Appreciate Ortho input and recommendation for continued management Has been getting PT and OT evaluation Possible discharge tomorrow to rehab facility Chronic respiratory failure, chronic obstructive pulmonary disease, History of bronchiectasis, interstitial lung disease, asbestosis, pneumoconiosis, uses oxygen at night with BiPAP. Respiratory status stable overall Continue usual bronchodilators Remains stable clinically History of diastolic congestive heart failure. Patient on the dry side Torsemide is on hold for now Monitor volume status closely History of paroxysmal atrial fibrillation, tachybrady syndrome, Status post pacemaker, on metoprolol and digoxin, which we will continue with holding parameters. INR 1.0 after Vit K Coumadin on hold, resume when okay with general surgery History of diabetes. We will cut back on Lantus to 10 units subcutaneously in the a.m. as the patient is currently n.p.o. after midnight and continue insulin sliding scale. Pharmacy Glycemic control consulted Acute kidney injury on chronic kidney disease stage III, baseline creatinine seems to be around 1.7, c Hold Torsemide as blood pressure is on the lower side Monitor Deep vein thrombosis prophylaxis. SCDs for now Coumadin restarted DISPOSITION: PT/OT eval may need Acute Rehab or SNF Admission and Anticipated Discharge Date Admission Date: September 18, 2020 Subjective 09/22/2020 The patient was seen and examined in medical telemetry unit He is status post left hip hemiarthroplasty, POD #2 with complex respiratory illness as mentioned below, remains reasonably stable Denies any increasing shortness of breath at rest Pain has been reasonable and has been getting physical therapy Review of Systems Review of Systems: All systems reviewed and are unremarkable except as noted below Respiratory: + dyspnea and + dyspnea on exertion Musculoskeletal: + joint pain (Left hip pain with any movement of the pelvis and left lower extremity) Physical Exam Physical Exam: Sitting on a chair with minimal shortness of breath at rest Constitutional: well developed, well nourished, + ill appearing and + obese Eyes: PERRL, conjunctivae normal, anicteric sclerae ENMT: external ear and nose normal, oropharynx normal Neck: trachea midline, no thyromegaly Respiratory: + respiratory distress (Mild to moderate respiratory distress at rest) Auscultation: + diminished lung sounds and + crackles (Minimal crackles at the bases) Cardiovascular: Rate/Rhythm: regular rate and regular rhythm Heart Sounds: no murmur Extremities: + edema (Trace edema bilaterally) Gastrointestinal (Abdomen): Inspection/Auscultation: normal bowel sounds; abdomen not distended Percussion/Palpation: abdomen soft; abdomen nontender Musculoskeletal: Pain in the left hip with any movement of the left lower extremity and pelvis Neurologic: Alert, awake and oriented x3 Psychiatric: A+Ox3, euthymic affect Lymphatic: no cervical or axillary lymphadenopathy Results & Data Results & Data ([facility]) Vital Signs (Past 12 Hours) Vital Signs Temp Pulse Pulse Resp BP BP Pulse Ox 09/22/20 13:22 80 18 93 09/22/20 11:58 36.5 C 74 18 100/63 91 09/22/20 07:15 120 H 09/22/20 07:11 90 16 99 09/22/20 07:10 90 16 99 09/22/20 07:00 37 C 101 H 20 87/55 L 109/72 100 09/22/20 03:00 37.1 C 77 20 103/73 98 Laboratory Results Short CBC 09/22/20 Range/Units 07:59 WBC 15.08 H (4.8-10.8) K/uL Hgb 8.5 L (14.0-18.0) g/dL Hct 27.1 L (42-52) % Plt Count 176 (130-400) K/uL Medications Administered Current Inpatient Medications Acetaminophen (Acetaminophen 325 Mg Tab) 650 mg PO Q4H PRN PRN Reason: Pain or Fever Stop: 10/18/20 21:16 Last Admin: 09/19/20 07:32 Dose: 650 mg Documented by: Acetylcysteine (Acetylcysteine 10% Inhal Soln 4 Ml Dispensed By Resp.) 3 ml INH BIDR RASHEL Stop: 10/18/20 21:16 Last Admin: 09/22/20 07:09 Dose: 3 ml Documented by: Albuterol (Albuterol Hfa 8 Gm Inhaler (Combivent Respimat P&T Subs)) 1 puffs INH Q6R RASHEL Stop: 10/18/20 21:44 Last Admin: 09/22/20 13:22 Dose: 1 puffs Documented by: Dextrose (Dextrose 50% 50 Ml Syringe) 25 - 50 ml IV UD PRN; Protocol PRN Reason: Hypoglycemia Protocol Stop: 10/18/20 21:44 Last Admin: 09/20/20 08:00 Dose: 25 ml Documented by: Digoxin (Digoxin 0.125 Mg Tab) 0.125 mg PO [id number] [facility] Stop: 10/20/20 15:59 Last Admin: 09/20/20 16:25 Dose: 0.125 mg Documented by: Enoxaparin Sodium (Enoxaparin Inj 40 Mg/0.4 Ml Syr) 40 mg SQ Q24H [facility] Stop: 10/21/20 08:59 Last Admin: 09/22/20 08:14 Dose: 40 mg Documented by: Fluticasone Propionate (Fluticasone Propionate Na Spr 16 Gm Btl) 2 sprays NA DAILY PRN PRN Reason: Nasal Congestion Stop: 10/18/20 21:38 Glucagon (Glucagon For Inj 1 Mg Vial) 1 mg IM UD PRN; Protocol PRN Reason: Hypoglycemia Protocol Stop: 10/18/20 21:44 Glucose (Glucose 40% Gel 15 Gm Tube) 15 - 30 gm PO UD PRN; Protocol PRN Reason: Hypoglycemia Protocol Stop: 10/18/20 21:44 Glucose (Glucose 10 Tabs/Tube) 4 - 8 tabs PO UD PRN; Protocol PRN Reason: Hypoglycemia Protocol Stop: 10/18/20 21:44 Hydroxyzine HCl (Hydroxyzine Hcl 10 Mg Tab) 10 mg PO Q8H PRN PRN Reason: Anxiety Stop: 10/18/20 21:16 Ceftriaxone Sodium 2,000 mg/ (Dextrose) 70 mls @ 100 mls/hr IV Q24H [facility]; Protocol Stop: 09/28/20 21:59 Last Infusion: 09/21/20 22:29 Dose: Infused Documented by: Insulin Aspart (Insulin Aspart 100 Units/Ml 3 Ml Pen) [address] [facility]; Protocol Stop: 10/22/20 07:29 Last Admin: 09/22/20 12:08 Dose: 15 units Documented by: Insulin Glargine (Insulin Glargine Solostar 100 Units/Ml 3 Ml Pen) 0 units SC HS [facility]; Protocol Stop: 10/22/20 20:59 Ipratropium Krebs (Ipratropium Krebs Neb Soln 0.02% 2.5 Ml Vial) 0.5 mg INH QID PRN PRN Reason: Shortness Of Breath Stop: 10/18/20 21:16 Ipratropium Krebs (Ipratropium Hfa Inhaler (Combivent Respimat P&T Subs)) 1 puffs INH Q6R RASHEL Stop: 10/18/20 21:44 Last Admin: 09/22/20 13:21 Dose: 1 puffs Documented by: Levalbuterol HCl (Levalbuterol Hcl 1.25 Mg/3 Ml Neb) 1.25 mg INH Q4H PRN PRN Reason: Shortnes of breath Stop: 10/18/20 21:16 Last Admin: 09/21/20 19:31 Dose: 1.25 mg Documented by: Metoprolol Tartrate (Metoprolol Tartrate 50 Mg Tab) 50 mg PO BID RASHEL Stop: 10/18/20 21:16 Last Admin: 09/22/20 08:13 Dose: Not Given Documented by: Miscellaneous (Carbohydrates For Hypoglycemia ) 15 - 30 gm PO UD PRN PRN Reason: Hypoglycemia Treatment Stop: 10/18/20 21:44 Miscellaneous Information (Pharmacy Glycemic Mgmt Consult) 1 ea N/A UD PRN PRN Reason: Consult Stop: 10/20/20 10:15 Morphine Sulfate (Morphine Sulfate 2 Mg/Ml Carp) 2 mg IV Q3H PRN PRN Reason: Pain Stop: 10/02/20 21:16 Last Admin: 09/19/20 08:38 Dose: 2 mg Documented by: Naloxone HCl (Naloxone Hcl 0.4 Mg/1 Ml Vial/Carp) 0.1 mg IV UD PRN PRN Reason: Opioid Overdose Stop: 10/20/20 19:55 Nitroglycerin (Nitroglycerin Sl 0.4 Mg/Tab Tab) 0.4 mg SL UD PRN PRN Reason: Chest Pain Stop: 10/18/20 21:16 Ondansetron HCl (Ondansetron Inj 2 Mg/Ml 2 Ml Vial) 4 mg IV Q6H PRN PRN Reason: Nausea Stop: 10/18/20 21:16 Polyethylene Glycol (Polyethylene (Miralax) 17 Gm Pack) 17 gm PO DAILY PRN PRN Reason: Constipation Stop: 10/18/20 21:16 Simvastatin (Simvastatin 20 Mg Tab) 20 mg PO QPM [facility] Stop: 10/18/20 21:16 Last Admin: 09/21/20 19:59 Dose: 20 mg Documented by: Tamsulosin HCl (Tamsulosin Hcl 0.4 Mg Cap) 0.4 mg PO HS [facility] Stop: 10/18/20 21:16 Last Admin: 09/21/20 20:01 Dose: 0.4 mg Documented by: Torsemide (Torsemide 10 Mg Tab) 10 mg PO QAM [facility] Stop: 10/19/20 08:59 Last Admin: 09/21/20 08:20 Dose: 10 mg Documented by: Triamcinolone Acetonide (Triamcinolone Acet 0.1% Cr 15 Gm Tube) 1 appln TOP BID [facility] Stop: 10/18/20 21:16 Last Admin: 09/22/20 08:14 Dose: 1 appln Documented by: Umeclidinium/Vilanterol (Umeclidinium/Vilanterol 62.5/25mcg 7 Puffs/Inhaler) 1 puffs INH QAM [facility] Stop: 10/19/20 08:59 Last Admin: 09/22/20 08:14 Dose: 1 puffs Documented by:
[2020-09-22] MEDS ORDERED: WARFARIN SOD 5 MG TAB PO ONE (15:19)
[2020-09-22] MEDS: DIGOXIN 0.125 MG TAB PO SCH (16:06)
--- NOTE | 2020-09-22 16:54 | Cardiology Progress Note ---
Date of Service September 21, 2020 Assessment & Plan (1) Permanent atrial fibrillation: (2) Pacemaker: (3) Left displaced femoral neck fracture: (4) Supratherapeutic INR: Doing well postoperatively. No cardiovascular complications postop. Vitals well controlled. Continue Digoxin metoprolol, torsemide, and simvastatin. INR of 1.2 today. Recommend restarting warfarin therapy if bleeding risk is acceptable from orthopedics standpoint. Admission and Anticipated Discharge Date Admission Date: September 18, 2020 Subjective Late entry for September 21, 2020. Patient seen and examined, chart reviewed. Postop day 1 and feeling well. Denies cardiac complaints of chest pain, shortness of breath, palpitations, lightheadedness, dizziness or syncope. Telemetry reviewed: Atrial fibrillation rate controlled. Review of Systems Review of Systems: All systems reviewed & are unremarkable except as noted in HPI & below Physical Exam Physical Exam: General: Awake, alert and oriented x 3. No acute distress. HEENT: Normocephalic, atraumatic. Pupils equal, round and reactive to light and accommodation. Extraocular muscles are intact. Anicteric sclera. Moist mucous membranes. Neck: No JVD. No bruit. Cardiovascular: irregularly irregular, unable to appreciate murmur, rub or gallop. Pulmonary: Coarse breath sounds diffusely with scattered rhonchi. Abdomen: Bowel sounds x 4, soft. No rebound, guarding or tenderness. No organomegaly. Extremities: No clubbing, cyanosis or edema. +2 pedal pulses bilaterally. Skin: Warm and dry. Results & Data ([facility]) Vital Signs (Past 12 Hours) Vital Signs Temp Pulse Pulse Resp BP BP Pulse Ox 09/22/20 16:06 73 09/22/20 15:51 37.0 C 130 H 18 135/82 95 09/22/20 13:22 80 18 93 09/22/20 11:58 36.5 C 74 18 100/63 91 09/22/20 07:15 120 H 09/22/20 07:11 90 16 99 09/22/20 07:10 90 16 99 09/22/20 07:00 37 C 101 H 20 87/55 L 109/72 100
--- NOTE | 2020-09-22 16:55 | Cardiology Progress Note ---
Date of Service September 22, 2020 Assessment & Plan (1) Permanent atrial fibrillation: (2) Pacemaker: (3) Left displaced femoral neck fracture: (4) Supratherapeutic INR: Doing well postoperatively. No cardiovascular complications postop. Vitals well controlled. Continue Digoxin metoprolol, torsemide, and simvastatin. INR of 1.7 today. Recommend restarting warfarin therapy if bleeding risk is acceptable from orthopedics standpoint. Admission and Anticipated Discharge Date Admission Date: September 18, 2020 Subjective Patient seen and examined,chart reviewed. Postop day 1 and feeling well. Denies cardiac complaints of chest pain, shortness of breath, palpitations, lightheadedness, dizziness or syncope. Telemetry reviewed: Atrial fibrillation rate controlled. Review of Systems Review of Systems: All systems reviewed & are unremarkable except as noted in HPI & below Physical Exam Physical Exam: General: Awake, alert and oriented x 3. No acute distress. HEENT: Normocephalic, atraumatic. Pupils equal, round and reactive to light and accommodation. Extraocular muscles are intact. Anicteric sclera. Moist mucous membranes. Neck: No JVD. No bruit. Cardiovascular: irregularly irregular, unable to appreciate murmur, rub or gallop. Pulmonary: Coarse breath sounds diffusely with scattered rhonchi. Abdomen: Bowel sounds x 4, soft. No rebound, guarding or tenderness. No organomegaly. Extremities: No clubbing, cyanosis or edema. +2 pedal pulses bilaterally. Skin: Warm and dry. Results & Data ([facility]) Vital Signs (Past 12 Hours) Vital Signs Temp Pulse Pulse Resp BP BP Pulse Ox 09/22/20 16:06 73 09/22/20 15:51 37.0 C 130 H 18 135/82 95 09/22/20 13:22 80 18 93 09/22/20 11:58 36.5 C 74 18 100/63 91 09/22/20 07:15 120 H 09/22/20 07:11 90 16 99 09/22/20 07:10 90 16 99 09/22/20 07:00 37 C 101 H 20 87/55 L 109/72 100
[2020-09-22] MEDS: TAMSULOSIN HCL 0.4 MG CAP PO SCH (20:41)
[2020-09-22] MEDS: SIMVASTATIN 20 MG TAB PO SCH (20:42)
[2020-09-22] MEDS ORDERED: INSULIN GLARGINE SOLOSTAR 100 UNITS/ML 3 ML PEN SC SCH (21:00)
[2020-09-22] MEDS: cefTRIAXone SODIUM 2,000 MG in DEXTROSE 5% 50 ML IV SCH (22:06)
[2020-09-23] MEDS: Albuterol HFA 8 GM Inhaler (Combivent Respimat P&T Subs) INH SCH ×3 (01:03→13:45)
[2020-09-23] MEDS: Ipratropium HFA Inhaler (Combivent Respimat P&T Subs) INH SCH ×3 (01:03→13:44)
[2020-09-23 06:48] LABS: INR 1.9 (0.9-1.1); Prothrombin Time 18.4 Seconds (9.0-12.0)
[2020-09-23 07:12] LABS: Creatinine Clr Calc Pharmacy 30.8 ml/min; Est GFR (Non-African American) 26.8 ml/min
[2020-09-23] MEDS: LEVALBUTEROL HCL 1.25 MG/3 ML NEB INH PRN (07:27)
[2020-09-23] MEDS: ACETYLCYSTEINE 10% INHAL SOLN 4 ML **DISPENSED BY RESP. INH SCH (07:32)
[2020-09-23] MEDS: METOPROLOL TARTRATE 50 MG TAB PO SCH (07:50)
[2020-09-23] MEDS: TRIAMCINOLONE ACET 0.1% CR 15 GM TUBE TOP SCH (07:52)
[2020-09-23] MEDS: INSULIN ASPART 100 UNITS/ML 3 ML PEN SC SCH ×2 (07:54→12:00)
[2020-09-23] MEDS: UMECLIDINIUM/VILANTEROL 62.5/25MCG 7 PUFFS/INHALER INH SCH (07:56)
[2020-09-23] MEDS: MoRPHine SULFATE 2 MG/ML CARP IV PRN (09:49)
--- NOTE | 2020-09-23 09:51 | Pharmacy Report ---
Pharmacy Glycemic Short Note 2 - Date of Service September 23, 2020 - Glycemic Short BSG Results (Last 24 hours): 09/22/20 09/22/20 09/22/20 11:30 16:42 20:07 POC Glucose 206 H 219 H 175 H 09/23/20 09/23/20 09/23/20 07:22 07:22 07:49 POC Glucose 62 L* 67 L* 42 L* 09/23/20 07:50 POC Glucose 73 OUTPATIENT ANTIDIABETIC REGIMEN: * Lantus 20-22 units AM * Novolog 4-6 units TID * HbA1c = 9.1% (09/19/20) ASSESSMENT: 09/23: * Pt has received 73 units of insulin over the past 24hrs * 30 units of basal with Lantus * 43 units of bolus with NovoLog * BSGs 83-053-140-175-62/67 mg/dl * Pt with LOW BSG this AM secondary to too much basal insulin. Will decrease dosing back to outpatient dosing of 22 units SQ AM only. Will wait to give dose with lunch today since Pt has 10 units of Lantus on board from last evening. * Will loosen CF/CR empirically since prednisone dc today. Steroids have their most profound effect on post-prandial hyperglycemia 09/22: * Matt's BSGs were significantly elevated postoperatively yesterday: 281-285-369 mg/dL * An insulin drip was started around noon yesterday. Patient required ~2.5 units/hr on average over a 19 hour period until the drip was stopped around 0700 this morning when BSG was 87 mg/dL. * In addition, patient received 15 units of basal + 27 units of bolus * Will give 20 units of Lantus this AM. A small basal scale will again be added to HS. Empirically tightened Novolog as well to cover for Prednisone dose this AM. 09/21: * BSGs trended upwards postoperatively which was expected secondary to D5 running, stress dose steroids and postoperative stress * Understand risk of hypoglycemia but now that patient is eating, need to be more aggressive with dosing * Fasting BSG uncontrolled at 285 mg/dL * Increased basal insulin this morning and tightened Novolog. Will change goal range as well to add more bolus coverage 09/20: * 80 yo M who is listed as having T1DM but likely has T2DM (see below) admitted 09/18 2nd fall / femur fracture. Surgery required in order to restore ability to ambulate, but patient very high risk due to severe cardiac and pulmonary disease, uncontrolled diabetes, and extensive surgery required. Surgery was also delayed to today due to INR elevation, but plan for OR today per Dr. Rucker. Stress dose steroids ordered (hydrocortisone 50 mg x1 then 25 mg IV q8h x3 doses with plan to resume prednisone after that point). Dextrose infusion currently running for hypoglycemia this AM, which is what prompted this consult T1DM vs. T2DM? * Consulted 09/20 AM for hypoglycemia. This hypoglycemia was unanticipated given reported history of T1DM and also the patient receiving less than half of his outpatient basal insulin dose yesterday. A more modest 20% reduction is more common for NPO adjustment for a patient with T1DM, and it would be more likely for the patient to be significantly hyperglycemic this AM due to basal insulin deficiency if he truly did have T1DM. * I called and spoke with the patient - he does report a history of type 1 diabetes. However, on further questioning, he notes that he was diagnosed with diabetes in the "late s" in about [id number] and was originally managed with oral agents only x3-5 years. He notes that in April of 1999 he was started on insulin at this institution. When questioned further about type 1 vs type 2 diabetes, he reported that it was "never made clear" to him what type of diabetes he has and that different documents he receives has type 1 listed on some and type 2 listed on others * The patient absolutely has T2DM based on our conversation, and being initially managed on oral agents alone for years prior to starting insulin. However, although rare, patients can have a late-onset of T1DM therefore I looked back at April 1999 documentation - per the H&P, he has T2DM and was started on insulin therapy during that encounter due to ongoing prednisone use. T1DM was not mentioned. This encounter was >20 years ago at this point, however, it is unlikely (although not impossible) that the patient has T1DM * Discussed above w Dr. Rucker - noted that T1DM is listed in problem list. Patient should absolutely have T2DM listed, and likely does not have T1DM. Dr. Rucker OK with treating as T2DM for now, and holding basal insulin pre- operatively given BSG of 59 mg/dL this AM * Plan to continue D5W infusion until post-op to prevent severe hypoglycemia. Dr. Rucker to likely d/c all fluids post-op and may order a diet. Discussed that low-lows and high-highs should be avoided, especially for this patient, and that an insulin drip may be required post-op given high risk and steroid use. Dr. Rucker agreed that an insulin drip could be required, and initiation would depend on BSG's PLAN FOR INPATIENT GLYCEMIC CONTROL: * Basal insulin - decrease * Lantus 22 units SC AM - first dose with lunch today * Bolus insulin- empirically loosen since prednisone dc * NovoLog per scale ACHS or Q6hrs while NPO * Goal Range: Low 110 mg/dL - High 140 mg/dL * Correction Factor: 20 mg/dL/unit * Nutritional / Prandial insulin per carb ratio of 1 unit per 5 grams CHO consumed PLAN FOR DISCHARGE: * To be determined
[2020-09-23] MEDS ORDERED: INSULIN GLARGINE SOLOSTAR 100 UNITS/ML 3 ML PEN SC SCH (11:30)
--- NOTE | 2020-09-23 11:38 | Orthopedic Progress Note ---
Date of Service September 23, 2020 Assessment & Plan (1) Left displaced femoral neck fracture: s/p left hip hemiarthroplasty POD#3 -ancef x 24; discontinued. -DVT ppx: SCDs, TEDs, Warfarin -WBAT LLE -Posterior hip precautions -PT/OT -PO XR demonstrates well aligned well fixed cemented prothesis without fracture/dislocation -am labs as noted DC planning-patient is planning for senior care facility. Zakiya with medicine service. Planning for discharge today. Orthopedics to sign off. Please call with any questions. Instructions placed in the DC section. Admission and Anticipated Discharge Date Admission Date: September 18, 2020 Subjective Postop day 3 Patient sitting up in bed awake and alert. Pain is controlled at rest. Patient states that when he gets out of bed to do therapy, he has little bit more pain. No other complaints at this time. Physical Exam Physical Exam: Willow dressing has some dried drainage on it. The drainage has appeared to stop. There is no drainage that is exuding from the dressing itself. The willow dressing is still functioning well. Thigh is soft and nontender. Calves are soft nontender. Neurovascular intact. Toes are mobile. Leg lengths appear equal. Results & Data ([facility]) Vital Signs (Past 12 Hours) Vital Signs Temp Pulse Pulse Resp BP BP Pulse Ox 09/23/20 11:22 36.7 C 73 18 108/66 99 09/23/20 08:47 85 09/23/20 07:32 104 H 18 92 09/23/20 07:00 36.1 C L 103 H 20 100/62 99 09/23/20 05:05 126 H 09/23/20 03:00 36.2 C L 87 20 101/65 98 09/23/20 01:03 106 H 18 96 Laboratory Results Laboratory Results WBC 15.08 K/uL (4.8-10.8) H 09/22/20 07:59 RBC 3.22 M/uL (4.7-6.1) L 09/22/20 07:59 Hgb 8.5 g/dL (14.0-18.0) L 09/22/20 07:59 Hct 27.1 % (42-52) L 09/22/20 07:59 MCV 84.2 fL (80-100) 09/22/20 07:59 MCH 26.4 pg (25-34) 09/22/20 07:59 MCHC 31.4 g/dL (32-36) L 09/22/20 07:59 RDW Std Deviation 52.4 fL (36.4-46.3) H 09/22/20 07:59 RDW Coeff of Samira 17.1 % (11.5-14.5) H 09/22/20 07:59 Plt Count 176 K/uL (130-400) 09/22/20 07:59 MPV 10.2 fL (7.4-10.4) 09/22/20 07:59 Immature Gran % (Auto) 0.8 % 09/22/20 07:59 Neut % (Auto) 81.3 % 09/22/20 07:59 Lymph % (Auto) 9.7 % 09/22/20 07:59 [place] % (Auto) 8.0 % 09/22/20 07:59 Eos % (Auto) 0.1 % 09/22/20 07:59 Baso % (Auto) 0.1 % 09/22/20 07:59 Neut # (Auto) 12.27 K/uL (1.4-6.5) H 09/22/20 07:59 Lymph # (Auto) 1.47 K/uL (1.2-3.4) 09/22/20 07:59 [place] # (Auto) 1.20 K/uL (0.11-0.59) H 09/22/20 07:59 Eos # (Auto) 0.01 K/uL (0-0.5) 09/22/20 07:59 Baso # (Auto) 0.01 K/uL (0-0.2) 09/22/20 07:59 Immature Gran # (Auto) 0.12 K/uL (0.00-0.02) H 09/22/20 07:59 PT 18.4 Seconds (9.0-12.0) H 09/23/20 06:16 INR 1.9 (0.9-1.1) H 09/23/20 06:16 APTT 36.5 Seconds (21.0-31.0) H 09/18/20 15:16 PTT Ratio 1.4 09/18/20 15:16 Sodium 141 mmol/L (136-145) 09/21/20 07:07 Potassium 4.9 mmol/L (3.5-5.1) D 09/21/20 07:07 Chloride 103 mmol/L (98-107) 09/21/20 07:07 Carbon Dioxide 29 mmol/L (21-32) 09/21/20 07:07 Anion Gap 9.0 (3-11) 09/21/20 07:07 BUN 59 mg/dl (7-18) H 09/21/20 07:07 Creatinine 2.21 mg/dl (0.6-1.4) H D 09/23/20 06:16 Est Cr Clr Drug Dosing 30.8 ml/min 09/23/20 06:16 Est GFR ( Amer) 31.0 ml/min 09/23/20 06:16 Est GFR (Non-Af Amer) 26.8 ml/min 09/23/20 06:16 BUN/Creatinine Ratio 34.0 (10-20) H 09/21/20 07:07 Glucose 264 mg/dl (70-99) H 09/21/20 07:07 POC Glucose 119 mg/dl (70-99) H 09/23/20 11:17 Estimat Average Glucose 214 mg/dl 09/19/20 07:13 Hemoglobin A1c 9.1 % (4.5-5.6) H 09/19/20 07:13 Calcium 8.2 mg/dl (8.5-10.1) L 09/21/20 07:07 Magnesium 2.0 mg/dl (1.8-2.4) 09/19/20 07:13 Total Bilirubin 0.9 mg/dl (0.2-1) 09/18/20 15:16 AST 12 U/L (15-37) L 09/18/20 15:16 ALT 37 U/L (12-78) 09/18/20 15:16 Alkaline Phosphatase 120 U/L (45-117) H 09/18/20 15:16 Total Protein 6.1 gm/dl (6.4-8.2) L 09/18/20 15:16 Albumin 2.8 gm/dl (3.4-5.0) L 09/18/20 15:16 Globulin 3.3 gm/dl (2.5-4.0) 09/18/20 15:16 Albumin/Globulin Ratio 0.8 (0.9-2) L 09/18/20 15:16 Cortisol AM Sample 6.98 mcg/dl (4.3-22.4) 09/19/20 07:13 Urine Color Yellow 09/18/20 Unknown Urine Appearance Clear (Clear) 09/18/20 Unknown Urine pH 5.0 (4.5-7.5) 09/18/20 Unknown Ur Specific [place] 1.018 (1.000-1.030) 09/18/20 Unknown Urine Protein Trace (Negative) H 09/18/20 Unknown Urine Glucose (UA) 2+ (Negative) H 09/18/20 Unknown Urine Ketones Negative (Negative) 09/18/20 Unknown Urine Blood Negative (Negative) 09/18/20 Unknown Urine Nitrite Negative (Negative) 09/18/20 Unknown Urine Bilirubin Negative (Negative) 09/18/20 Unknown Urine Urobilinogen Negative (Negative) 09/18/20 Unknown Ur Leukocyte Esterase 2+ (Negative) H 09/18/20 Unknown Urine WBC (Auto) 10-30 /hpf (0-5) H 09/18/20 Unknown Urine RBC (Auto) 0-4 /hpf (0-4) 09/18/20 Unknown U Hyaline Cast (Auto) 1-5 /lpf (0-5) 09/18/20 Unknown U Epithel Cells (Auto) 10-20 /lpf (0-5) H 09/18/20 Unknown Urine Bacteria (Auto) Negative (Negative) 09/18/20 Unknown COVID-19 Eval Order Covid19 at [facility] 09/18/20 18:10 SARS-CoV-2 (PCR) NEGATIVE (Negative) 09/18/20 18:10 Blood Type O Positive 09/18/20 15:16 Antibody Screen NEGATIVE 09/18/20 15:16
--- NOTE | 2020-09-23 13:35 | Hospitalist Progress Note ---
Date of Service September 23, 2020 Assessment & Plan (1) Left displaced femoral neck fracture: (2) Acute pain of left hip: This is an 80-year-old male with history of chronic respiratory failure, chronic obstructive pulmonary disease, history of bronchiectasis, diabetes, chronic kidney disease stage III, history of atrial fibrillation, tachybrady syndrome, status post pacemaker, diastolic congestive heart failure, presents with fall and left hip fracture. Mechanical fall, left hip fracture High risk for planned orthopedic surgery Evaluated by Pulm and Cards and was cleared for surgery with accepted risk Given stress dose steroids given history of chronic prednisone use: Status post left hip hemiarthroplasty, POD #2 Appreciate Ortho input and recommendation for continued management Has been getting PT and OT evaluation Remains stable medically Will need pain medications during physical therapy He will be discharged to rehab this afternoon Chronic respiratory failure, chronic obstructive pulmonary disease, History of bronchiectasis, interstitial lung disease, asbestosis, pneumoconiosis, uses oxygen at night with BiPAP. Respiratory status stable overall Continue usual bronchodilators Remains a stable and is back to his baseline regarding his respiratory status History of diastolic congestive heart failure. Patient on the dry side Torsemide is on hold for now Monitor volume status closely We will resume his torsemide the usual doses History of paroxysmal atrial fibrillation, tachybrady syndrome, Status post pacemaker, on metoprolol and digoxin, which we will continue with holding parameters. INR 1.0 after Vit K Coumadin on hold, resume when okay with general surgery His INR has been therapeutic and he is back on his Coumadin History of diabetes. We will cut back on Lantus to 10 units subcutaneously in the a.m. as the patient is currently n.p.o. after midnight and continue insulin sliding scale. Pharmacy Glycemic control consulted Acute kidney injury on chronic kidney disease stage III, baseline creatinine seems to be around 1.7, c Hold Torsemide as blood pressure is on the lower side Monitor Deep vein thrombosis prophylaxis. SCDs for now Coumadin restarted DISPOSITION: Continue PT/OT reina Will be discharged to [facility] this afternoon Admission and Anticipated Discharge Date Admission Date: September 18, 2020 Subjective 09/22/2020 The patient was seen and examined in medical telemetry unit He is status post left hip hemiarthroplasty, POD #2 with complex respiratory illness as mentioned below, remains reasonably stable Denies any increasing shortness of breath at rest Pain has been reasonable and has been getting physical therapy 09/23/2020 The patient was seen and examined in medical telemetry unit He has been doing much better and is back to his baseline regarding his respiratory status Still complains some pain in the left hip with ambulation and movement of the left lower extremity He will be discharged to rehab this afternoon Review of Systems Review of Systems: All systems reviewed and are unremarkable except as noted below Respiratory: + dyspnea and + dyspnea on exertion Musculoskeletal: + joint pain (Left hip pain with any movement of the pelvis and left lower extremity) Physical Exam Physical Exam: Lying in bed comfortably Constitutional: well developed, well nourished, + ill appearing and + obese Eyes: PERRL, conjunctivae normal, anicteric sclerae ENMT: external ear and nose normal, oropharynx normal Neck: trachea midline, no thyromegaly Respiratory: no respiratory distress (Mild to moderate respiratory distress at rest) Auscultation: + diminished lung sounds and + crackles (Minimal crackles at the bases) Cardiovascular: Rate/Rhythm: regular rate and regular rhythm Heart Sounds: no murmur Extremities: + edema (Trace edema bilaterally) Gastrointestinal (Abdomen): Inspection/Auscultation: normal bowel sounds; abdomen not distended Percussion/Palpation: abdomen soft; abdomen nontender Musculoskeletal: Pain in the left hip with movement of the left lower extremity Neurologic: Alert, awake and oriented x3. Generally weak Psychiatric: A+Ox3, euthymic affect Lymphatic: no cervical or axillary lymphadenopathy Results & Data Results & Data ([facility]) Vital Signs (Past 12 Hours) Vital Signs Temp Pulse Pulse Resp BP BP Pulse Ox 09/23/20 11:22 36.7 C 73 18 108/66 99 09/23/20 08:47 85 09/23/20 07:32 104 H 18 92 09/23/20 07:00 36.1 C L 103 H 20 100/62 99 09/23/20 05:05 126 H 09/23/20 03:00 36.2 C L 87 20 101/65 98 Laboratory Results [facility] 09/23/20 06:16 Creatinine 2.21 H D Medications Administered Current Inpatient Medications Acetaminophen (Acetaminophen 325 Mg Tab) 650 mg PO Q4H PRN PRN Reason: Pain or Fever Stop: 10/18/20 21:16 Last Admin: 09/19/20 07:32 Dose: 650 mg Documented by: Acetylcysteine (Acetylcysteine 10% Inhal Soln 4 Ml Dispensed By Resp.) 3 ml INH BIDR [facility] Stop: 10/18/20 21:16 Last Admin: 09/23/20 07:32 Dose: 3 ml Documented by: Albuterol (Albuterol Hfa 8 Gm Inhaler (Combivent Respimat P&T Subs)) 1 puffs INH Q6R [facility] Stop: 10/18/20 21:44 Last Admin: 09/23/20 07:29 Dose: Not Given Documented by: Dextrose (Dextrose 50% 50 Ml Syringe) 25 - 50 ml IV UD PRN; Protocol PRN Reason: Hypoglycemia Protocol Stop: 10/18/20 21:44 Last Admin: 09/20/20 08:00 Dose: 25 ml Documented by: Digoxin (Digoxin 0.125 Mg Tab) 0.125 mg PO [id number]@1600 [facility] Stop: 10/20/20 15:59 Last Admin: 09/22/20 16:06 Dose: 0.125 mg Documented by: Fluticasone Propionate (Fluticasone Propionate Na Spr 16 Gm Btl) 2 sprays NA DAILY PRN PRN Reason: Nasal Congestion Stop: 10/18/20 21:38 Glucagon (Glucagon For Inj 1 Mg Vial) 1 mg IM UD PRN; Protocol PRN Reason: Hypoglycemia Protocol Stop: 10/18/20 21:44 Glucose (Glucose 40% Gel 15 Gm Tube) 15 - 30 gm PO UD PRN; Protocol PRN Reason: Hypoglycemia Protocol Stop: 10/18/20 21:44 Glucose (Glucose 10 Tabs/Tube) 4 - 8 tabs PO UD PRN; Protocol PRN Reason: Hypoglycemia Protocol Stop: 10/18/20 21:44 Hydroxyzine HCl (Hydroxyzine Hcl 10 Mg Tab) 10 mg PO Q8H PRN PRN Reason: Anxiety Stop: 10/18/20 21:16 Ceftriaxone Sodium 2,000 mg/ (Dextrose) 70 mls @ 100 mls/hr IV Q24H [facility]; Protocol Stop: 09/28/20 21:59 Last Infusion: 09/23/20 00:23 Dose: Infused Documented by: Insulin Aspart (Insulin Aspart 100 Units/Ml 3 Ml Pen) 0 units SC ACHS [facility]; Protocol Stop: 10/22/20 07:29 Last Admin: 09/23/20 12:00 Dose: 14 units Documented by: Insulin Glargine (Insulin Glargine Solostar 100 Units/Ml 3 Ml Pen) 22 units SC DAILY [facility] Stop: 10/23/20 11:29 Last Admin: 09/23/20 11:59 Dose: 22 units Documented by: Ipratropium [place] (Ipratropium [place] Neb Soln 0.02% 2.5 Ml Vial) 0.5 mg INH QID PRN PRN Reason: Shortness Of Breath Stop: 10/18/20 21:16 Last Admin: 09/23/20 07:27 Dose: 0.5 mg Documented by: Ipratropium [place] (Ipratropium Hfa Inhaler (Combivent Respimat P&T Subs)) 1 puffs INH Q6R [facility] Stop: 10/18/20 21:44 Last Admin: 09/23/20 07:29 Dose: Not Given Documented by: Levalbuterol HCl (Levalbuterol Hcl 1.25 Mg/3 Ml Neb) 1.25 mg INH Q4H PRN PRN Reason: Shortnes of breath Stop: 10/18/20 21:16 Last Admin: 09/23/20 07:27 Dose: 1.25 mg Documented by: Metoprolol Tartrate (Metoprolol Tartrate 50 Mg Tab) 50 mg PO BID [facility] Stop: 10/18/20 21:16 Last Admin: 09/23/20 07:50 Dose: 50 mg Documented by: Miscellaneous (Carbohydrates For Hypoglycemia ) 15 - 30 gm PO UD PRN PRN Reason: Hypoglycemia Treatment Stop: 10/18/20 21:44 Last Admin: 09/23/20 07:29 Dose: 15 gm Documented by: Miscellaneous Information (Pharmacy Glycemic Mgmt Consult) 1 ea N/A UD PRN PRN Reason: Consult Stop: 10/20/20 10:15 Morphine Sulfate (Morphine Sulfate 2 Mg/Ml Carp) 2 mg IV Q3H PRN PRN Reason: Pain Stop: 10/02/20 21:16 Last Admin: 09/23/20 09:49 Dose: 2 mg Documented by: Naloxone HCl (Naloxone Hcl 0.4 Mg/1 Ml Vial/Carp) 0.1 mg IV UD PRN PRN Reason: Opioid Overdose Stop: 10/20/20 19:55 Nitroglycerin (Nitroglycerin Sl 0.4 Mg/Tab Tab) 0.4 mg SL UD PRN PRN Reason: Chest Pain Stop: 10/18/20 21:16 Ondansetron HCl (Ondansetron Inj 2 Mg/Ml 2 Ml Vial) 4 mg IV Q6H PRN PRN Reason: Nausea Stop: 10/18/20 21:16 Polyethylene Glycol (Polyethylene (Miralax) 17 Gm Pack) 17 gm PO DAILY PRN PRN Reason: Constipation Stop: 10/18/20 21:16 Simvastatin (Simvastatin 20 Mg Tab) 20 mg PO QPM [facility] Stop: 10/18/20 21:16 Last Admin: 09/22/20 20:42 Dose: 20 mg Documented by: Tamsulosin HCl (Tamsulosin Hcl 0.4 Mg Cap) 0.4 mg PO HS [facility] Stop: 10/18/20 21:16 Last Admin: 09/22/20 20:41 Dose: 0.4 mg Documented by: Torsemide (Torsemide 10 Mg Tab) 10 mg PO QAM [facility] Stop: 10/19/20 08:59 Last Admin: 09/21/20 08:20 Dose: 10 mg Documented by: Triamcinolone Acetonide (Triamcinolone Acet 0.1% Cr 15 Gm Tube) 1 appln TOP BID [facility] Stop: 10/18/20 21:16 Last Admin: 09/23/20 07:52 Dose: 1 appln Documented by: Umeclidinium/Vilanterol (Umeclidinium/Vilanterol 62.5/25mcg 7 Puffs/Inhaler) 1 puffs INH QAM [facility] Stop: 10/19/20 08:59 Last Admin: 09/23/20 07:56 Dose: 1 puffs Documented by: Warfarin Sodium (Warfarin Sod 2.5 Mg Tab) 2.5 mg PO Mo@1600 [facility] Stop: 10/27/20 15:59 Warfarin Sodium (Warfarin Sod 1.25 Mg Tab) 1.25 mg PO [id number]@1600 [facility] Stop: 10/23/20 15:59
[2020-09-23] MEDS ORDERED: WARFARIN SOD 1.25 MG TAB PO SCH (16:00)
--- NOTE | 2020-09-24 09:09 | Discharge Summary ---
Date of Service September 24, 2020 Admission HPI Per Admitting Provider DICTATED BY: Dmitriy Burns MD DATE OF ADMISSION: 09/18/2020 CHIEF COMPLAINT: Status post fall and left hip fracture. HISTORY OF PRESENT ILLNESS: This is an 80-year-old male with past medical history significant for type 1 diabetes, hypothyroidism, hyperlipidemia, diabetic peripheral neuropathy, chronic respiratory failure, COPD, history of bronchiectasis, nocturnal hypoxemia, interstitial lung disease, asbestosis, pneumoconiosis, hypertension, paroxysmal atrial fibrillation, tachybrady syndrome, status post pacemaker, chronic kidney disease stage III, history of IA, history of GERD, history of BPH, chronic stasis dermatitis, anemia of chronic kidney disease, who presents with fall and left hip fracture. The patient lives at home with his . He can get around the house okay. Sometimes he uses walker and, sometimes does not use walker. He was walking in his driveway today without walker when he suddenly felt dizzy. Sometimes he feels dizziness that lasts for a few moments.Today when he felt dizzy he tried to hold on, but he could not find anything to hold and he fell down on his left hip and also slightly hit his head, but there is no headache, no injury to head. No loss of consciousness. No chest pain. He has chronic shortness of breath, but no change . No cough, no fever, no chills. Currently denies any headache, no blurred vision, no runny nose, no sore throat. Appetite is good. No nausea, no abdominal pain. Normal bowel and bladder movements. In the ER, imaging studies shows a left hip fracture. The patient was recently in the hospital with acute on chronic respiratory failure requiring steroids and antibiotics. He today took 30 mg of prednisone today, tomorrow is supposed to take 20 mg for 5 days and after that to continue with 10 mg daily. He is done with antibiotics.Last admission he was also treated for acute on chronic diastolic heart failure with IV Lasix. At home, he is on 10 mg of torsemide, but as per outpatient notes on 09/16, he took a few days of 20mg of torsemide with improvement in lower extremity edema .He follows with pulmonary, Dr. Johansen, and currently using BiPAP in the nighttime with oxygen and as per pulmonary, he has poor prognosis. He also follows with cardiology. Palliative care was consulted last admission, but currently the patient wants to be a full code. He says when he is resting, there is no pain in the left hip, but when he moves, there is significant pain. The patient is alert and oriented and able to give history. Admission Exam Per Admitting Provider GENERAL: The patient is of moderate build, currently not in acute distress. VITAL SIGNS: Temperature 36.6, pulse 98, respiratory rate 13, blood pressure 106/68, oxygen 98% on room air. HEENT: Pupils equal, round, and reactive to light. Oral mucosa moist. NECK: No JVD. No neck masses. CARDIOVASCULAR: S1, S2 heard, regular rate and rhythm, no murmur, no gallop. RESPIRATORY SYSTEM: Normal AP diameter. No accessory muscle use. No wheezing, no crackles. ABDOMEN: Soft, bowel sounds present, nontender. No distention. CENTRAL NERVOUS SYSTEM: Alert and oriented. Speech clear, no facial droop. Obeys commands. EXTREMITIES: Left lower extremity is shortened and externally rotated. No significant edema seen. Principal Diagnosis Left displaced femoral neck fracture status post left hip hemiarthroplasty, chronic respiratory failure, COPD with history of bronchiectasis and interstitial lung disease, diastolic congestive heart failure, paroxysmal atrial fibrillation Discharge Exam Constitutional well developed, well nourished, + ill appearing and + obese Eyes PERRL, conjunctivae normal, anicteric sclerae ENMT external ear and nose normal, oropharynx normal Neck trachea midline, no thyromegaly Respiratory no respiratory distress (Mild to moderate respiratory distress at rest) Auscultation: + diminished lung sounds and + crackles (Minimal crackles at the bases) Cardiovascular Rate/Rhythm: regular rate and regular rhythm Heart Sounds: no murmur Extremities: + edema (Trace edema bilaterally) Gastrointestinal (Abdomen) Inspection/Auscultation: normal bowel sounds; abdomen not distended Percussion/Palpation: abdomen soft; abdomen nontender Psychiatric A+Ox3, euthymic affect Lymphatic no cervical or axillary lymphadenopathy Discharge Data Allergies Allergy/AdvReac Type Severity Reaction Status Date / Time diltiazem Allergy Mild rash Verified 09/18/20 15:42 fluticasone furoate AdvReac Intermediate Joint Pain Verified 09/18/20 15:42 [From Breo Ellipta] vilanterol AdvReac Intermediate Joint Pain Verified 09/18/20 15:42 [From Breo Ellipta] aspirin AdvReac Mild GI symptoms Verified 09/18/20 15:42 lisinopril AdvReac Mild cough Verified 09/18/20 15:42 propoxyphene AdvReac Mild GI upset, Verified 09/18/20 15:42 diarrhea Consultations 09/18/20 16:56 ED Decision to Admit Stat 09/19/20 08:00 Consult Cardiology Routine Consult Orthopedic Surgery Routine Consult Pulmonology Routine Procedures Performed Operation Date: 09/20/20 09:20 Actual Procedures p Left Hip Hemiarthroplasty- cemented(Left) - Alexey Valentine DO Ordered Studies 09/18/20 15:43 CT cervical spine wo con Stat CT head/brain wo con Stat Diabetes Follow up Diabetes Follow-up Needed for HgbA1c >9% Hospital Course (1) Left displaced femoral neck fracture: (2) Acute pain of left hip: This is an 80-year-old male with history of chronic respiratory failure, chronic obstructive pulmonary disease, history of bronchiectasis, diabetes, chronic kidney disease stage III, history of atrial fibrillation, tachybrady syndrome, status post pacemaker, diastolic congestive heart failure, presents with fall and left hip fracture. Mechanical fall, left hip fracture High risk for planned orthopedic surgery Evaluated by Pulm and Cards and was cleared for surgery with accepted risk Given stress dose steroids given history of chronic prednisone use: Status post left hip hemiarthroplasty, POD #2 Appreciate Ortho input and recommendation for continued management Has been getting PT and OT evaluation Remains stable medically Will need pain medications during physical therapy He will be discharged to rehab this afternoon Chronic respiratory failure, chronic obstructive pulmonary disease, History of bronchiectasis, interstitial lung disease, asbestosis, pneumoconiosis, uses oxygen at night with BiPAP. Respiratory status stable overall Continue usual bronchodilators Remains a stable and is back to his baseline regarding his respiratory status History of diastolic congestive heart failure. Patient on the dry side Torsemide is on hold for now Monitor volume status closely We will resume his torsemide the usual doses History of paroxysmal atrial fibrillation, tachybrady syndrome, Status post pacemaker, on metoprolol and digoxin, which we will continue with holding parameters. INR 1.0 after Vit K Coumadin on hold, resume when okay with general surgery His INR has been therapeutic and he is back on his Coumadin History of diabetes. We will cut back on Lantus to 10 units subcutaneously in the a.m. as the patient is currently n.p.o. after midnight and continue insulin sliding scale. Pharmacy Glycemic control consulted Acute kidney injury on chronic kidney disease stage III, baseline creatinine seems to be around 1.7, c Hold Torsemide as blood pressure is on the lower side Monitor Deep vein thrombosis prophylaxis. SCDs for now Coumadin restarted DISPOSITION: Continue PT/OT reina Will be discharged to [facility] this afternoon Total Time Total Time Spent Total Time Spent (In Minutes): 50 minutes Total Time Includes: Examination of the Patient, Discharge Planning, Medication Reconciliation and Communication With Other Providers Discharge Plan Discharge Items Patient Disposition: Transfer Alf Fac Reason For Visit: FALL Discharge Diagnosis: Left displaced femoral neck fracture status post left hip hemiarthroplasty, chronic respiratory failure, COPD with history of bronchiectasis and interstitial lung disease, diastolic congestive heart failure, paroxysmal atrial fibrillation Condition on Discharge: Fair Activity: As commented below Activity Comment: Continue PT and OT Non-emergency contact: Primary Care Provider Call non-emergency contact if: you have any medication questions and your symptoms worsen Follow-up/Referrals: Kg Monte MD [Primary Care Provider] - Alexey Valentine DO [Physician] - (Follow up in 10-14 days from the day of surgery.) Diet: Carb Consistent or DM2 Addtl Attending Provider Instructions: Please take precautions to avoid fall Try to use the narcotics as less as possible Please continue using your CPAP with oxygen at night ACTIVITY RECOMMENDATIONS: SELF CARE INSTRUCTIONS AFTER HIP HEMIARTHROPLASTY Until the incision and soft tissues around your hip have healed, there is a possibility that the hip prosthesis could dislocate. A. Observe the following precautions to prevent dislocation: 1. Don't bend your hip greater than 90 degrees. 2. Avoid crossing your legs or ankles while standing or lying. 3. Sit with your feet placed 6 inches apart. 4. When sitting, keep your knees below your hips. Sit on a firm surface, avoid deep, soft chairs and couches. Use an elevated toilet seat in the bathroom. 5. Don't bend over at the waist. Use a long handled shoehorn and a sock aid to help you put on your shoes and socks. A industrial sales manager can help you pear picker objects that are too high or too low to reach. 6. Keep car riding to a minimum for at least one month after surgery. B. Your balance may be shaky for a while. Use crutches or a walker until directed by your doctor. C. Use hand rails when walking on stairs. D. Wear low heeled shoes with non-slip soles. E. Be sure that your floors are free of things that could trip you - throw rugs, electrical cords, small objects. Avoid wet and waxed floors, especially with crutches and canes. F. Try to walk several times a day with rest periods between. G. Continue with all the exercises taught to you in the hospital. Again, make walking a part of your daily routine. SPECIAL CARE INSTRUCTIONS: VERY IMPORTANT TO READ AND REVIEW A. You may still be at risk for phlebitis and blood clots. 1. Wear surgical stockings (ALANA hose) for 2 weeks after surgery to improve circulation and reduce swelling. 2. YOU WILL BE ON COUMADIN DAILY. THIS IS YOUR BLOOD THINNER. 3. High risk patients may be prescribed a stronger blood thinner if necessary . 4. If you are on Coumadin normally, your family doctor/angle shear operator should monitor your blood work. Expect a phone call the day of or the day after bloodwork is drawn to adjust your dosage. B. You must take antibiotics before having dental work, bladder, bowel and other surgery. Your doctor will provide you with a permanent card to carry describing precautions. C. Call [facility] [place] if you have a fever, redness or swelling around the incision, cloudy drainage from incision, or sudden increase in pain in your hip, not relieved by your regular pain medication. D. Please call the office at if you have any concerns or questions about your operation or recovery. * YOU MAY SHOWER, NO TUB BATHS UNTIL CLEARED BY YOUR DOCTOR. * WEAR ALANA HOSE 20 HOURS PER DAY FOR 2 WEEKS. * YOU SHOULD USE A WALKER OR CRUTCHES FOR 2-4 WEEKS. THIS WILL HELP PREVENT STRAIN ON YOUR HIP MUSCLE AND ALLOW IT TO HEAL PROPERLY. YOU MAY WEAN TO A CANE TOLERATED. * MOST PATIENTS WILL HAVE HOME NURSING FOR THERAPY. IF YOU DECIDE TO DO OUTPATIENT PHYSICAL THERAPY, PLEASE SCHEDULE THIS 3 TIMES PER WEEK. * GUCCI Dressing - This is a large suction dressing covering your incision. This will help pull any excess drainage from the wound and allow your incision to heal properly. You may shower with this if you can keep the unit outside of the shower. If any bleeding or leakage is noted please call your doctor's office. This will remain on your incision for 7 days and then should be removed. (REMOVE DRESSING ON Sunday09/27/20) This can be done yourself or by the home nursing staff if applicable. The entire unit is disposable once removed. Once removed, keep incision clean and dry. If redness or drainage is noted, please call your surgeon. . FOLLOW UP VISIT: If appointment is not already scheduled: Please call [facility] to make a follow-up appointment for 2 weeks after your surgery at . Pending Studies at Discharge: No Stand-Alone Forms: My [facility] Skilled Items Patient informed of condition?: Yes DNR: No Discharge Level of Care: Acute rehab Communicable Disease: No Discharge Prognosis: Stable Lines: None Urinary Catheter: No Medications and DC Order Prescriptions: New oxycodone 5 mg capsule 5 mg PO Q6H PRN (Reason: pain) Qty: 20 RF: 0 Continued acetylcysteine 100 mg/mL (10 %) solution 3 ml inhalation BID Qty: 180 RF: 1 Combivent Respimat 20-100 mcg/actuation mist 1 puff inhalation Q6H Qty: 3 RF: 1 warfarin 2.5 mg tablet 2.5 mg PO MO RF: 0 triamcinolone acetonide 0.1 % cream 1 applic TOPICAL BID Qty: 15 RF: 3 digoxin 125 mcg (0.125 mg) tablet 125 mcg PO 3XWK RF: 0 levalbuterol HCl 1.25 mg/3 mL solution for nebulization 1.25 mg INHALATION Q4H PRN (Reason: Shortnes of breath) RF: 0 warfarin 2.5 mg tablet 1.25 mg PO SUTUWETHFRSA RF: 0 metoprolol tartrate 50 mg Tablet 50 mg PO BID RF: 0 tamsulosin [Flomax] 0.4 mg Capsule 0.4 mg PO HS RF: 0 simvastatin [Zocor] 20 mg Tablet 20 mg PO QPM RF: 0 nitroglycerin [Nitrostat] 0.4 mg Tablet, Sublingual 0.4 mg Sublingual UD PRN (Reason: Chest Pain) RF: 0 insulin aspart U-100 [Novolog Flexpen U-100 Insulin] 100 unit/mL Insulin Pen 4 - 6 unit subcut TID RF: 0 Flonase Sensimist 27.5 mcg/actuation [place],Suspension 2 spray Intranasal DAILY PRN (Reason: Nasal Congestion) RF: 0 Lantus Solostar U-100 Insulin 100 unit/mL (3 mL) Insulin Pen 20 - 22 unit SUBCUT QAM RF: 0 Anoro Ellipta 62.5-25 mcg/actuation blister with device 1 inh inhalation QAM RF: 0 torsemide 20 mg tablet 10 mg PO QAM RF: 0 hydroxyzine HCl 10 mg tablet 10 mg PO Q8H PRN (Reason: Anxiety) RF: 0 ipratropium bromide 0.02 % Solution 2.5 ml INHALATION QID PRN (Reason: Shortness Of Breath) RF: 0 prednisone 10 mg tablet 10 mg PO UD Qty: 30 RF: 0 Discontinued doxycycline hyclate 100 mg Capsule 100 mg PO BID Qty: 6 RF: 0 Discharge Orders: Discharge Order (Routine); Ordered 09/23/20 Ordered By: Vincent Presley/Other Patient Handouts: Managing Type 2 Diabetes, A1C Admission Data Admit Date/Time: 09/18/20 18:42 Attending Provider: Vincent Kenyon Admit Provider: Dmitriy Burns Primary Care Provider: Kg Monte Other Providers: Dmitriy Burns ; Fercho Carrillo ; Toro Hernandez ; Devan Styles ; Stan Hall ; Shan Schmitz ; Kg Perez ; Lynnette Mitchell ; Katlin Laird ; Trupti Hughes ; Maury Weeks ; Fly Marin ; Rcihard Bowden ; Dean Kirkland ; Elena Solis Thomas J ; Gladis Curiel ; Leobardo Eid ; Kameron Jacobo ; Kg Lr Andrew J. ; Kameron Flores ; Shan Espinoza ; Bowen Coleman ; Mark Grant ; Jaime Gibson ; Gladis Holloway ; Alexey Valentine ; Ken Contreras ; Lizbeth Bella ; Matt Evangelista ; Hemalatha Turcios ; Kaitlin Henderson ; Gurdeep Rucker. ; [facility],
[2020-09-27] MEDS ORDERED: WARFARIN SOD 2.5 MG TAB PO SCH (16:00)
== END 2020-09-23 15:14 | DRG 521 ==
LOC: ED 14:34 → SUATTDRO 18:42 → 2N 18:42

== ENCOUNTER 2020-10-05 04:59 | Inpatient (IN) ==
[2020-10-05] MEDS ORDERED: HYDROmorphone INJ 0.5 MG/0.5 ML SYR IV PRN ×2 (05:07→08:31)
[2020-10-05 05:19] LABS: Eosinophils # (auto) 0.01 K/uL (0-0.5); Eosinophils % (auto) 0.2 %; Hematocrit (blood only) 26.7 % (42-52); Hemoglobin 7.8 g/dL (14.0-18.0); Immature Granulocytes # (auto) 0.02 K/uL (0.00-0.02); Immature Granulocytes % (auto) 0.3 %; Lymphocytes # (auto) 1.14 K/uL (1.2-3.4); Mean Corpuscular Hemoglobin 25.2 pg (25-34); Mean Corpuscular Hgb Conc 29.2 g/dL (32-36); Mean Corpuscular Volume 86.1 fL (80-100); Mean Platelet Volume 9.3 fL (7.4-10.4); Monocytes # (auto) 0.46 K/uL (0.11-0.59); Monocytes % (auto) 7.3 %; Neutrophils # (auto) 4.71 K/uL (1.4-6.5); Neutrophils % (auto) 74.2 %; Platelet Count 325 K/uL (130-400); RDW Coefficient of Variation 17.1 % (11.5-14.5); RDW Standard Deviation 53.8 fL (36.4-46.3); White Blood Count 6.34 K/uL (4.8-10.8)
[2020-10-05 05:40] LABS: INR 3.6 (0.9-1.1); Partial Thromboplastin Ratio 1.5; Partial Thromboplastin Time 39.6 Seconds (21.0-31.0); Prothrombin Time 33.3 Seconds (9.0-12.0)
[2020-10-05 05:52] LABS: Polychromasia 1+
[2020-10-05 05:53] LABS: Albumin Globulin Ratio 0.6 (0.9-2); Albumin Level 1.9 gm/dl (3.4-5.0); Bilirubin,Total 0.6 mg/dl (0.2-1); Calcium 8.3 mg/dl (8.5-10.1); Creatinine Clr Calc Pharmacy 38.1 ml/min; Est GFR (African American) 44.5 ml/min; Est GFR (Non-African American) 38.4 ml/min; Globulin 3.4 gm/dl (2.5-4.0); Potassium 3.6 mmol/L (3.5-5.1); Total Protein 5.3 gm/dl (6.4-8.2)
[2020-10-05 06:04] LABS: Beta-Hydroxybutyrate 1.47 mg/dl (0.2-2.81)
[2020-10-05] MEDS ORDERED: SODIUM CHLORIDE 0.9% 250 ML IV PRN (06:32)
[2020-10-05 07:05] LABS: Appearance Urine Clear (Clear); Bilirubin Urine Negative (Negative); Blood Urine Negative (Negative); Color Urine Yellow; Glucose Urine UA 3+ (Negative); Ketones Urine Negative (Negative); Leukocyte Esterase Urine Negative (Negative); Nitrite Urine Negative (Negative); Protein Urine Negative (Negative); Specific Gravity Urine 1.016 (1.000-1.030); Urobilinogen Urine Negative (Negative)
[2020-10-05] MEDS ORDERED: METOPROLOL TARTRATE 25 MG TAB PO STA (07:06)
--- NOTE | 2020-10-05 07:09 | History & Physical Report ---
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 Jacobo.) Hold Coumadin, n.p.o. until patient seen by orthopedics in anticipation of procedure. Pharmacy glycemic control consult DVT prophylaxis. SCDs if INR less than 2 while Coumadin on hold RE possible surgery, decreasing hemoglobin Full code Text document was generated using [employer] voice recognition software. It may contain grammatical or spelling errors. Kindly contact undersigned for clarification of any documentation item in question. History of Present Illness Chief Complaint: Left hip pain Primary Care Provider: Kg Monte MD History obtained from patient and records. 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 Recent confinement September 18-2020 for left hip fracture status post surgery. Patient evaluated by Cardiology and Pulmonology prior to surgery. Patient subsequently discharged home. Last 2 days, patient noted increased dizziness on standing up and blood pressure being low at home. Systolic 100s the last 2 days. Patient is feeling woozy, weak. Denies headache. Denies abdominal pain/black/bloody stools. Pain tolerable as per patient. PCP recommended decreasing metoprolol dose from 50 to 25 mg twice daily and to hold torsemide diuretic. Visiting nurse to recheck patient after 2 days as per documentation. Patient was trying to push himself out of his recliner when his left leg slipped out causing him to slide. Patient noted excruciating pain on the left hip after hearing something pop. Patient had trouble getting up. Patient denies head trauma, LOC, chest pain, S OB. No unusual cough symptoms. Patient brought to the ER for evaluation. MEDICAL HISTORY: As above. SURGERIES: He has had a pacemaker placement, polypectomy, hernia surgery, prostate surgery, scalp surgery, hernia repair, left hip fracture surgery FAMILY HISTORY: Diabetes, heart disease. PERSONAL AND SOCIAL HISTORY: Past tobacco abuse. No chronic intake of alcohol beverages. 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 Allergies Allergy/AdvReac Type Severity Reaction Status Date / Time diltiazem Allergy Mild rash Verified 10/05/20 07:27 fluticasone furoate AdvReac Intermediate Joint Pain Verified 10/05/20 07:27 [From Breo Ellipta] vilanterol AdvReac Intermediate Joint Pain Verified 10/05/20 07:27 [From Breo Ellipta] aspirin AdvReac Mild GI symptoms Verified 10/05/20 07:27 lisinopril AdvReac Mild cough Verified 10/05/20 07:27 propoxyphene AdvReac Mild GI upset, Verified 10/05/20 07:27 diarrhea Home Medications Medication Instructions Recorded Confirmed Type Flonase Sensimist 2 spray INTRANASAL DAILY 07/03/18 10/05/20 History Lantus Solostar U-100 Insulin 22 unit SUBCUT QAM 07/03/18 10/05/20 History insulin aspart U-100 [Novolog See Rx Instructions .ROUTE .COMPLEX 07/03/18 10/05/20 History Flexpen U-100 Insulin] nitroglycerin [Nitrostat] 0.4 mg SUBLINGUAL UD PRN 07/03/18 10/05/20 History simvastatin [Zocor] 20 mg PO QDD 07/03/18 10/05/20 History tamsulosin [Flomax] 0.4 mg PO HS 07/03/18 10/05/20 History levalbuterol HCl 1.25 mg INHALATION Q4H PRN 04/20/20 10/05/20 History metoprolol tartrate 50 mg PO BID 04/20/20 10/05/20 History warfarin See Rx Instructions .ROUTE .COMPLEX 04/20/20 10/05/20 History digoxin 125 mcg (0.125 mg) tablet 125 mcg PO 3XWK tab 07/12/20 10/05/20 History Anoro Ellipta 1 inh INHALATION QAM 08/13/20 10/05/20 History ipratropium bromide 2.5 ml INHALATION QID PRN 09/09/20 10/05/20 History torsemide 10 mg PO QAM 09/09/20 10/05/20 History Combivent Respimat 1 puff INHALATION QID 10/05/20 10/05/20 History guaifenesin 600 mg PO Q12H PRN 10/05/20 10/05/20 History loratadine 10 mg PO DAILY PRN 10/05/20 10/05/20 History 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)/last check 06/09/19 Palliative care encounter Pulmonary embolism remote hx Skin cancer left elbow region Weakness Surgical History H/O basal cell carcinoma excision REMOVED FROM NOSE H/O hand surgery LEFT MIDDLE FINGER FX REPAIR H/O inguinal hernia repair H/O nasal polypectomy History of bronchoscopy History of cataract surgery RT/LEFT History of colonoscopy History of inguinal hernia repair History of lung biopsy robotic thoracoscopy, pleural biopsy: 08/09/16: Grade view 1, MAC#3 at [facility] History of surgery of head "correct skull abnormality- left temporoparietal ; 1992" History of tooth extraction Status post placement of cardiac pacemaker Family History Brother Diabetes Son Diabetes Family hx of colon cancer Other Heart disease Social History Smoking Status: Never smoker Second Hand Exposure: No; Hx Alcohol Use: Yes Alcohol type: beer Hx Substance Use: No Preferred Language: Icelandic Communication Ability: Effective Visual Impairment: No Limitations Organization Development Consultant Required: No Beliefs That Will Affect Care: None marital status: Current Living Situation: Spouse Current Living Situation Comment: at home Feels Safe at Home: Yes Assistive Devices: None Review of Systems Review of Systems: As per HPI, all 10 systems reviewed, all other ROS negative Physical Exam Physical Exam: GENERAL: uncomfortable, no respiratory distress SKIN: Pallor , warm HEENT: Alopecia, pale palpebral conjunctivae, no ptosis, dry buccal mucosa, nasal cannula in place NECK : Supple, no tenderness CHEST : Decreased breath sounds, occasional expiratory wheezes , no tenderness HEART : Tachycardic, irregular, no obvious murmurs ABDOMEN: Some distention, nontender EXTREMITIES : Minimal LE swelling, dislocated left hip with tenderness, no other conspicuous deformities noted NEUROLOGIC : Coherent, no facial asymmetry, slightly hard of hearing, no other gross focality Results & Data Results & Data ([facility]) Vital Signs (Past 12 Hours) Vital Signs Temp Pulse Resp BP Pulse Ox 10/05/20 05:07 36.9 C 100 H 16 106/72 95 Laboratory Results Laboratory Results WBC 6.34 K/uL (4.8-10.8) 10/05/20 05:09 RBC 3.10 M/uL (4.7-6.1) L 10/05/20 05:09 Hgb 7.8 g/dL (14.0-18.0) L 10/05/20 05:09 Hct 26.7 % (42-52) L 10/05/20 05:09 MCV 86.1 fL (80-100) 10/05/20 05:09 MCH 25.2 pg (25-34) 10/05/20 05:09 MCHC 29.2 g/dL (32-36) L 10/05/20 05:09 RDW Std Deviation 53.8 fL (36.4-46.3) H 10/05/20 05:09 RDW Coeff of Samira 17.1 % (11.5-14.5) H 10/05/20 05:09 Plt Count 325 K/uL (130-400) 10/05/20 05:09 MPV 9.3 fL (7.4-10.4) 10/05/20 05:09 Immature Gran % (Auto) 0.3 % 10/05/20 05:09 Neut % (Auto) 74.2 % 10/05/20 05:09 Lymph % (Auto) 18.0 % 10/05/20 05:09 Gilchrist % (Auto) 7.3 % 10/05/20 05:09 Eos % (Auto) 0.2 % 10/05/20 05:09 Baso % (Auto) 0.0 % 10/05/20 05:09 Neut # (Auto) 4.71 K/uL (1.4-6.5) 10/05/20 05:09 Lymph # (Auto) 1.14 K/uL (1.2-3.4) L 10/05/20 05:09 Gilchrist # (Auto) 0.46 K/uL (0.11-0.59) 10/05/20 05:09 Eos # (Auto) 0.01 K/uL (0-0.5) 10/05/20 05:09 Baso # (Auto) 0.00 K/uL (0-0.2) 10/05/20 05:09 Immature Gran # (Auto) 0.02 K/uL (0.00-0.02) 10/05/20 05:09 Polychromasia 1+ 10/05/20 05:09 PT 33.3 Seconds (9.0-12.0) H 10/05/20 05:09 INR 3.6 (0.9-1.1) H 10/05/20 05:09 APTT 39.6 Seconds (21.0-31.0) H 10/05/20 05:09 PTT Ratio 1.5 10/05/20 05:09 Sodium 138 mmol/L (136-145) 10/05/20 05:09 Potassium 3.6 mmol/L (3.5-5.1) 10/05/20 05:09 Chloride 100 mmol/L (98-107) 10/05/20 05:09 Carbon Dioxide 29 mmol/L (21-32) 10/05/20 05:09 Anion Gap 9.0 (3-11) 10/05/20 05:09 BUN 48 mg/dl (7-18) H 10/05/20 05:09 Creatinine 1.64 mg/dl (0.6-1.4) H 10/05/20 05:09 Est Cr Clr Drug Dosing 38.1 ml/min 10/05/20 05:09 Est GFR ( Amer) 44.5 ml/min 10/05/20 05:09 Est GFR (Non-Af Amer) 38.4 ml/min 10/05/20 05:09 BUN/Creatinine Ratio 29.0 (10-20) H 10/05/20 05:09 Glucose 394 mg/dl (70-99) H* 10/05/20 05:09 Calcium 8.3 mg/dl (8.5-10.1) L 10/05/20 05:09 Total Bilirubin 0.6 mg/dl (0.2-1) 10/05/20 05:09 AST 12 U/L (15-37) L 10/05/20 05:09 ALT 21 U/L (12-78) 10/05/20 05:09 Alkaline Phosphatase 156 U/L (45-117) H 10/05/20 05:09 Total Protein 5.3 gm/dl (6.4-8.2) L 10/05/20 05:09 Albumin 1.9 gm/dl (3.4-5.0) L 10/05/20 05:09 Globulin 3.4 gm/dl (2.5-4.0) 10/05/20 05:09 Albumin/Globulin Ratio 0.6 (0.9-2) L 10/05/20 05:09 Beta-Hydroxybutyric Acd 1.47 mg/dl (0.2-2.81) 10/05/20 05:09 Urine Color Yellow 10/05/20 05:10 Urine Appearance Clear (Clear) 10/05/20 05:10 Urine pH 6.0 (4.5-7.5) 10/05/20 05:10 Ur Specific Dyer 1.016 (1.000-1.030) 10/05/20 05:10 Urine Protein Negative (Negative) 10/05/20 05:10 Urine Glucose (UA) 3+ (Negative) H 10/05/20 05:10 Urine Ketones Negative (Negative) 10/05/20 05:10 Urine Blood Negative (Negative) 10/05/20 05:10 Urine Nitrite Negative (Negative) 10/05/20 05:10 Urine Bilirubin Negative (Negative) 10/05/20 05:10 Urine Urobilinogen Negative (Negative) 10/05/20 05:10 Ur Leukocyte Esterase Negative (Negative) 10/05/20 05:10 COVID-19 Eval Order Covid19 at [facility] 10/05/20 05:10 Diagnostic Findings Chest x-ray as per my interpretation atelectasis Pelvis x-ray as per my interpretation dislocated left hip arthroplasty EKG as per my interpretation : Rate 105, A. fib, LAD, LAFB, incomplete RBBB, T wave flattening inferior leads
--- NOTE | 2020-10-05 07:13 | XRay Report ---
XR pelvis 1-2V routine CLINICAL HISTORY: Left hip pain. COMPARISON: 09/20/2020 DISCUSSION: There is a superiorly dislocated bipolar left hip arthroplasty. There is a subtle lucency within the proximal femur. While this may represent a projectional artifact a subtle proximal peripr osthetic fracture cannot be excluded IMPRESSION: 1. Dislocated left hip arthroplasty 2. Artifact versus subtle proximal periprosthetic fracture ACT 112: Negative or not required by law. Electronically signed by: Bruno Lisa M.D. 10/05/2020 7:12 AM
[2020-10-05] MEDS ORDERED: XOPENEX/ATROVENT 1.25mg/0.5MG NEB COMBO NEB STA (07:38)
[2020-10-05] MEDS ORDERED: ACETAMINOPHEN 325 MG TAB PO PRN (07:45)
[2020-10-05] MEDS ORDERED: INSULIN GLARGINE SOLOSTAR 100 UNITS/ML 3 ML PEN SC STA (07:49)
--- NOTE | 2020-10-05 07:53 | CT Scan Report ---
CT hip LT wo con CT DOSE: 891.52 mGy.cm CLINICAL HISTORY: Left hip pain. Recent hip arthroplasty. TECHNIQUE: Helical images were acquired in the transverse plane. Sagittal and coronal reformatted aakash ges were acquired. A dose lowering technique was utilized adhering to the principles of ALARA. COMPARISON STUDY: X-ray study dated 10/05/2020 FINDINGS: There are lateral skin heber. There is left-sided cutaneous and subcutaneous edema, likel y postsurgical. There are superior and posterior lateral dislocation of a bipolar left hip arthroplas ty. There is a joint effusion. There is artifact from the prosthesis. No fractures are visualized. Th ere is trace periprostatic soft tissue gas is likely postsurgical. IMPRESSION: 1. Superior and 1posterior lateral dislocation of a bipolar left hip arthroplasty 2. Joint effusion 3. Cutaneous and subcutaneous edema likely postsurgical 4. No acute fractures identified ACT 112: Negative or not required by law. Electronically signed by: Bruno Lias M.D. 10/05/2020 7:51 AM
[2020-10-05] MEDS ORDERED: LEVALBUTEROL 1.25MG/0.5ML NEB INH STA (08:06)
[2020-10-05] MEDS ORDERED: IPRATROPIUM BROMIDE NEB SOLN 0.02% 2.5 ML VIAL INH STA (08:06)
--- NOTE | 2020-10-05 08:06 | XRay Report ---
XR chest 1V portable CLINICAL HISTORY: wheeze COMPARISON STUDY: Chest CT October 09, 2019. Chest radiograph September 18, 2020. FINDINGS: Dual lead left subclavian pacemaker is in place. Cardiomegaly is unchanged. Left basilar re trocardiac opacity is noted. There is mild right basilar opacity. Calcified pleural plaques are noted . There is no pneumothorax. Trace right pleural effusion is present. There is no evidence for pulmona ry edema. IMPRESSION: 1. Left basilar opacity which may reflect pneumonia. Atelectasis could appear similar although is con sidered less likely. Radiographic follow-up is recommended. 2. Trace right pleural effusion. ACT 112: Negative or not required by law. Electronically signed by: Akshat Calderon M.D. 10/05/2020 8:05 AM
[2020-10-05] MEDS ORDERED: POTASSIUM CHLORIDE CRTAB 20 MEQ TABCR PO STA (08:27)
[2020-10-05] MEDS ORDERED: MoRPHine SULFATE 2 MG/ML CARP IV PRN (08:27)
[2020-10-05 08:48] LABS: Magnesium 1.8 mg/dl (1.8-2.4); Thyroid Stimulating Hormone 2.15 uIu/ml (0.300-4.500)
[2020-10-05] MEDS ORDERED: PHARMACY GLYCEMIC MGMT CONSULT PRN (09:40)
[2020-10-05] MEDS ORDERED: INSULIN ASPART 100 UNITS/ML 3 ML PEN SC STA ×2 (11:11→13:22)
[2020-10-05] MEDS ORDERED: GLUCOSE 40% GEL 15 GM TUBE PO PRN ×2 (11:15→17:20)
[2020-10-05] MEDS ORDERED: GLUCAGON FOR INJ 1 MG VIAL IM PRN (11:15)
[2020-10-05] MEDS ORDERED: CARBOHYDRATES FOR HYPOGLYCEMIA PO PRN ×2 (11:15→17:20)
[2020-10-05] MEDS ORDERED: DEXTROSE 50% 50 ML SYRINGE IV PRN ×2 (11:15→17:20)
[2020-10-05] MEDS ORDERED: GLUCOSE 10 TABS/TUBE PO PRN ×2 (11:15→17:20)
[2020-10-05] MEDS ORDERED: CALCIUM CARBONATE 500 MG CHEWABLE TAB ONE (14:09)
[2020-10-05] MEDS: CALCIUM CARBONATE 500 MG CHEWABLE TAB PO PRN (14:11)
--- NOTE | 2020-10-05 14:48 | Pharmacy Report ---
Pharmacy Glycemic Short Note 2 - Date of Service October 05, 2020 - Glycemic Short BSG Results (Last 24 hours): 10/05/20 10/05/20 10/05/20 05:09 12:29 12:30 Glucose 394 H* POC Glucose 415 H* 406 H* OUTPATIENT ANTIDIABETIC REGIMEN: * Lantus 22 units AM, Novolog 3-4x per day per SSI * A1c 9.1% 09/19/20 ASSESSMENT: * Mr. RO has a past medical history including type 1 diabetes, afib, ckd, COPD. Admitted with hip pain with dislocation of left hip arthroplasty to be evaluated by ortho. * BSGs significantly elevated on admission, 415/406 mg/dL. Potassium is 3.6 so will avoid IV bolus of insulin for now, will utilize novolog q4H. If significantly elevated with next check may need to start insulin infusion, in which case potassium will need ordered. * Patient received 20 units of lantus this AM. PLAN FOR INPATIENT GLYCEMIC CONTROL: * Hold outpatient oral diabetes medications * Basal insulin * Lantus 20 units x1 * Bolus insulin * NovoLog per scale ACHS or Q6hrs while NPO * Goal Range: Low 110 mg/dL - High 140 mg/dL * Correction Factor: 30 mg/dL/unit * Nutritional / Prandial insulin per carb ratio of 1 unit per 10 grams CHO consumed
[2020-10-05] MEDS ORDERED: INSULIN ASPART 100 UNITS/ML 3 ML PEN SC SCH ×2 (16:00→17:20)
--- NOTE | 2020-10-05 16:23 | Orthopedic Consultation ---
Date of Consultation October 05, 2020 Assessment & Plan (1) Hip dislocation, left: Case has been discussed with [facility]. They feel he is hemodynamically stable for any type of closed reduction procedure at this time. I have discussed the case with Dr. Valentine. Plans will be to attempt a closed reduction tonight of the left hip. If this is unsuccessful, the patient will have to be scheduled for an open reduction of the left bipolar hemiarthroplasty in the next day or 2. Supervising Physician Co-Signing Physician Notes The patient was seen and examined in preoperative holding, agree with above assessment plan. I indicated the patient for closed reduction left hip hemiarthroplasty, patient INR supratherapeutic and will only attempt closed reduction. If unsuccessful would need to lower INR safely so open reduction can be performed. The patient was informed of the risks and benefits of surgery, which include but not limited to injury to nerves, bone including fracture, vessels and soft tissue, arthrofibrosis, recurrent instability, need for additional surgery, loss of life. The patient chose to move forward with closed reduction and informed consent was obtained. History of Present Illness Reason for Consultation: Left bipolar hemiarthroplasty dislocation. Attending Physician: Vincent Kenyon MD History of Present Illness Patient is an 80-year-old white male known to our practice and is status post left bipolar hemiarthroplasty from 09/20/2020. 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 Patient underwent his hemiarthroplasty at the end of August and was then transferred to [facility] skilled facility for further rehab. The patient was then discharged to home. He states that he was doing well at home. While sitting in his recliner, the patient states that he was trying to get out of his recliner with his helping him. As he was getting up and she was pulling on his arms to help him up, his left leg had slipped out underneath him and he fell to the floor. He states he felt immediate pain in his left hip and groin. He was unable to ambulate at that point and he was brought to the emergency room. X-rays were taken and it was found that he had a dislocated left bipolar hemiarthroplasty. ER nursing relates history of attempted reduction but was unsuccessful. We have been asked to take care of his hip dislocation. Allergies Allergy/AdvReac Type Severity Reaction Status Date / Time diltiazem Allergy Mild rash Verified 10/05/20 07:27 fluticasone furoate AdvReac Intermediate Joint Pain Verified 10/05/20 07:27 [From Breo Ellipta] vilanterol AdvReac Intermediate Joint Pain Verified 10/05/20 07:27 [From Breo Ellipta] aspirin AdvReac Mild GI symptoms Verified 10/05/20 07:27 lisinopril AdvReac Mild cough Verified 10/05/20 07:27 propoxyphene AdvReac Mild GI upset, Verified 10/05/20 07:27 diarrhea Home Medications Medication Instructions Recorded Confirmed Type Flonase Sensimist 2 spray INTRANASAL DAILY 07/03/18 10/05/20 History Lantus Solostar U-100 Insulin 22 unit SUBCUT QAM 07/03/18 10/05/20 History insulin aspart U-100 [Novolog See Rx Instructions .ROUTE .COMPLEX 07/03/18 10/05/20 History Flexpen U-100 Insulin] nitroglycerin [Nitrostat] 0.4 mg SUBLINGUAL UD PRN 07/03/18 10/05/20 History simvastatin [Zocor] 20 mg PO QDD 07/03/18 10/05/20 History tamsulosin [Flomax] 0.4 mg PO HS 07/03/18 10/05/20 History levalbuterol HCl 1.25 mg INHALATION Q4H PRN 04/20/20 10/05/20 History metoprolol tartrate 50 mg PO BID 04/20/20 10/05/20 History warfarin See Rx Instructions .ROUTE .COMPLEX 04/20/20 10/05/20 History digoxin 125 mcg (0.125 mg) tablet 125 mcg PO 3XWK tab 07/12/20 10/05/20 History Anoro Ellipta 1 inh INHALATION QAM 08/13/20 10/05/20 History ipratropium bromide 2.5 ml INHALATION QID PRN 09/09/20 10/05/20 History torsemide 10 mg PO QAM 09/09/20 10/05/20 History Combivent Respimat 1 puff INHALATION QID 10/05/20 10/05/20 History guaifenesin 600 mg PO Q12H PRN 10/05/20 10/05/20 History loratadine 10 mg PO DAILY PRN 10/05/20 10/05/20 History Patient History Medical History Anemia felt d/t chronic disease, hgb baseline 10-12 range per chart review Atrial fibrillation paroxysmal- on coumadin BPH (benign prostatic hypertrophy) CKD (chronic kidney disease) stage 3, GFR 30-59 ml/min COPD (chronic obstructive pulmonary disease) Diabetes type I Dyslipidemia per records Elbow fracture, right current issue s/p fall at home GERD (gastroesophageal reflux disease) r/t inhalers Interstitial lung disease Nocturnal hypoxemia 2L O2 HS 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)/last check 06/09/19 Palliative care encounter Pulmonary embolism remote hx Skin cancer left elbow region Weakness Surgical History H/O basal cell carcinoma excision REMOVED FROM NOSE H/O hand surgery LEFT MIDDLE FINGER FX REPAIR H/O inguinal hernia repair H/O nasal polypectomy History of bronchoscopy History of cataract surgery RT/LEFT History of colonoscopy History of inguinal hernia repair History of lung biopsy robotic thoracoscopy, pleural biopsy: 08/09/16: Grade view 1, MAC#3 at [facility] History of surgery of head "correct skull abnormality- left temporoparietal ; 1992" History of tooth extraction Status post placement of cardiac pacemaker Family History Brother Diabetes Son Diabetes Family hx of colon cancer Other Heart disease Social History Smoking Status: Never smoker Second Hand Exposure: No; Hx Alcohol Use: Yes Alcohol type: beer Hx Substance Use: No Preferred Language: Upper Sorbian Communication Ability: Effective Visual Impairment: No Limitations Packaging Tech Required: No Beliefs That Will Affect Care: None marital status: Current Living Situation: Spouse Current Living Situation Comment: at home Feels Safe at Home: Yes Assistive Devices: None Review of Systems Review of Systems: All systems reviewed & are unremarkable except as noted in HPI & below Physical Exam Physical Exam: On examination, the patient is sleeping upon arrival. He is easily awoken. He is currently comfortable and has minimal discomfort in his left hip. He is currently receiving a unit of PRBCs. On examination of his left lower extremity, it is shortened and internally rotated compared to the right. He has good range of motion of his left ankle and toes. Sensation is intact. No attempts were made to do any type of left knee range of motion secondary to hip dislocation. He still has the heber in from his previous surgery and his wound appears benign. Mild swelling over the lateral hip is noted. He has mild tenderness on palpation. He denies any discomfort of the right lower extremity at this time. Denies any upper extremity problems at this time as well. Range of motion is within normal limits. He has some noted bruising on the arms from previous lab draws and likely from being on anticoagulation. He denies any cervical, thoracic, lumbar pain at this time. There is no gross motor or sensory loss seen at this time. Results & Data ([facility]) Vital Signs (Past 12 Hours) Vital Signs Temp Pulse Pulse Resp BP Pulse Ox 10/05/20 15:43 36.5 C 95 H 16 125/74 100 10/05/20 15:13 36.3 C L 91 H 16 115/67 100 10/05/20 14:58 36.4 C L 88 20 127/80 100 10/05/20 14:41 36.4 C L 87 18 114/70 100 10/05/20 09:30 102 H 20 147/78 H 100 10/05/20 09:10 106 H 16 98 10/05/20 09:00 117 H 22 132/73 99 10/05/20 08:30 101 H 20 132/86 95 10/05/20 08:00 114 H 20 93 10/05/20 07:53 107 H 15 107/70 97 10/05/20 07:40 107 H 22 96 10/05/20 07:00 100 H 22 142/91 H 98 10/05/20 06:30 108 H 17 130/87 90 10/05/20 06:00 109 H 20 129/90 98 10/05/20 05:30 107 H 19 95 10/05/20 05:07 36.9 C 100 H 16 106/72 95 10/05/20 05:06 98 H 22 95 10/05/20 05:04 110 H 20 106/72 95 Diagnostic Findings Patient: CHARISSA THAKUR Date: 10/05/20MR#: [id number]: [address] RDAcct ID:[id number]: Date: 1940City Zip: [place] [address]Dyv: 80Location: EDSex: MRoom/Bed:Att Phy:Diagnosis: HIP PAINPri Phy: Kg Monte, MDService Date: 10/05/20Fam Phy:Interpreting Phy: Bruno Lisa MDAdmit Phy: Ordering Phy: Emanuel Beckett MD cc: ~ XR pelvis 1-2V routine CLINICAL HISTORY: Left hip pain. COMPARISON: 09/20/2020 DISCUSSION: There is a superiorly dislocated bipolar left hip arthroplasty. There is a subtle lucency within the proximal femur. While this may represent a projectional artifact a subtle proximal periprosthetic fracture cannot be excluded IMPRESSION: 1. Dislocated left hip arthroplasty 2. Artifact versus subtle proximal periprosthetic fracture CT hip LT wo con CT DOSE: 891.52 mGy.cm CLINICAL HISTORY: Left hip pain. Recent hip arthroplasty. TECHNIQUE: Helical images were acquired in the transverse plane. Sagittal and coronal reformatted images were acquired. A dose lowering technique was utilized adhering to the principles of ALARA. COMPARISON STUDY: X-ray study dated 10/05/2020 FINDINGS: There are lateral skin heber. There is left-sided cutaneous and subcutaneous edema, likely postsurgical. There are superior and posterior lateral dislocation of a bipolar left hip arthroplasty. There is a joint effusion. There is artifact from the prosthesis. No fractures are visualized. There is trace periprostatic soft tissue gas is likely postsurgical. IMPRESSION: 1. Superior and 1posterior lateral dislocation of a bipolar left hip a rthroplasty 2. Joint effusion 3. Cutaneous and subcutaneous edema likely postsurgical 4. No acute fractures identified
--- NOTE | 2020-10-05 16:44 | Anesthesiology Consultation ---
Date of Service October 05, 2020 Assessment & Plan Chart Review Chart Review: Acceptable Risk for Surgery (1 unit PRBC's today) History Surgery Operation Date: 10/05/20 10:05 Proposed Procedures p Left Hip Closed Reduction - Alexey Valentine DO Height/Weight Height: 6 ft Weight: 91.5 kg Allergies Allergy/AdvReac Type Severity Reaction Status Date / Time diltiazem Allergy Mild rash Verified 10/05/20 07:27 fluticasone furoate AdvReac Intermediate Joint Pain Verified 10/05/20 07:27 [From Breo Ellipta] vilanterol AdvReac Intermediate Joint Pain Verified 10/05/20 07:27 [From Breo Ellipta] aspirin AdvReac Mild GI symptoms Verified 10/05/20 07:27 lisinopril AdvReac Mild cough Verified 10/05/20 07:27 propoxyphene AdvReac Mild GI upset, Verified 10/05/20 07:27 diarrhea Medications Home Medications Medication Instructions Recorded Confirmed Last Taken Flonase Sensimist 2 spray INTRANASAL DAILY 07/03/18 10/05/20 09/18/20 Lantus Solostar U-100 Insulin 22 unit SUBCUT QAM 07/03/18 10/05/20 09/18/20 insulin aspart U-100 [Novolog See Rx Instructions .ROUTE .COMPLEX 07/03/18 10/05/20 09/18/20 Flexpen U-100 Insulin] nitroglycerin [Nitrostat] 0.4 mg SUBLINGUAL UD PRN 07/03/18 10/05/20 Unknown simvastatin [Zocor] 20 mg PO QDD 07/03/18 10/05/20 09/17/20 tamsulosin [Flomax] 0.4 mg PO HS 07/03/18 10/05/20 09/17/20 levalbuterol HCl 1.25 mg INHALATION Q4H PRN 04/20/20 10/05/20 09/18/20 metoprolol tartrate 50 mg PO BID 04/20/20 10/05/20 09/18/20 warfarin See Rx Instructions .ROUTE .COMPLEX 04/20/20 10/05/20 09/18/20 digoxin 125 mcg (0.125 mg) tablet 125 mcg PO 3XWK tab 07/12/20 10/05/20 09/17/20 Anoro Ellipta 1 inh INHALATION QAM 08/13/20 10/05/20 09/18/20 ipratropium bromide 2.5 ml INHALATION QID PRN 09/09/20 10/05/20 09/18/20 torsemide 10 mg PO QAM 09/09/20 10/05/20 09/18/20 Combivent Respimat 1 puff INHALATION QID 10/05/20 10/05/20 Unknown guaifenesin 600 mg PO Q12H PRN 10/05/20 10/05/20 Unknown loratadine 10 mg PO DAILY PRN 10/05/20 10/05/20 Unknown Active Medications Generic Name Dose Route Start Last Admin Trade Name Freq PRN Reason Stop Dose Admin Calcium Carbonate 1,500 mg 10/05/20 14:03 10/05/20 14:11 Calcium Carbonate 500 Mg Chewable Tab PO 11/04/20 14:02 1,500 mg BID PRN Administration Indigestion Past Medical History Medical History Anemia felt d/t chronic disease, hgb baseline 10-12 range per chart review Atrial fibrillation paroxysmal- on coumadin BPH (benign prostatic hypertrophy) CKD (chronic kidney disease) stage 3, GFR 30-59 ml/min COPD (chronic obstructive pulmonary disease) Diabetes type I Dyslipidemia per records Elbow fracture, right current issue s/p fall at home GERD (gastroesophageal reflux disease) r/t inhalers Interstitial lung disease Nocturnal hypoxemia 2L O2 HS 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)/last check 06/09/19 Palliative care encounter Pulmonary embolism remote hx Skin cancer left elbow region Weakness Past Family History Family History Brother Diabetes Son Diabetes Family hx of colon cancer Other Heart disease Past Surgical History Surgical History H/O basal cell carcinoma excision REMOVED FROM NOSE H/O hand surgery LEFT MIDDLE FINGER FX REPAIR H/O inguinal hernia repair H/O nasal polypectomy History of bronchoscopy History of cataract surgery RT/LEFT History of colonoscopy History of inguinal hernia repair History of lung biopsy robotic thoracoscopy, pleural biopsy: 08/09/16: Grade view 1, MAC#3 at [facility] History of surgery of head "correct skull abnormality- left temporoparietal ; 1992" History of tooth extraction Status post placement of cardiac pacemaker Social History Smoking Status: Never smoker tobacco type: cigarettes Hx Alcohol Use: Yes Alcohol type: beer alcohol intake frequency: a few times a month Hx Substance Use: No substance use type: does not use Physical Exam Vital Signs Last Vital Signs Temp 36.5 C 10/05/20 15:43 Pulse 95 H 10/05/20 15:43 Resp 16 10/05/20 15:43 BP 125/74 10/05/20 15:43 Pulse Ox 100 10/05/20 15:43 Testing Laboratory Results 10/05/20 05:09 10/05/20 05:09 PT 33.3 Seconds (9.0-12.0) H 10/05/20 05:09 INR 3.6 (0.9-1.1) H 10/05/20 05:09 APTT 39.6 Seconds (21.0-31.0) H 10/05/20 05:09 Urine Color Yellow 10/05/20 05:10 Urine Appearance Clear (Clear) 10/05/20 05:10 Urine pH 6.0 (4.5-7.5) 10/05/20 05:10 Ur Specific Bastian 1.016 (1.000-1.030) 10/05/20 05:10 Urine Protein Negative (Negative) 10/05/20 05:10 Urine Glucose (UA) 3+ (Negative) H 10/05/20 05:10 Urine Ketones Negative (Negative) 10/05/20 05:10 Urine Nitrite Negative (Negative) 10/05/20 05:10 Ur Leukocyte Esterase Negative (Negative) 10/05/20 05:10 Blood Type O Positive 10/05/20 08:03 Antibody Screen NEGATIVE 10/05/20 08:03 10/05/20 10/05/20 10/05/20 16:33 16:32 12:30 POC Glucose 284 H 319 H* 406 H* 10/05/20 12:29 POC Glucose 415 H* COVID test today negative Electrocardiogram Date: 10/05/20 Findings: + NSST changes, + AFIB @ (105) and + RBBB (incomplete) Echocardiogram Date: 09/09/20 EF: >70% LV Function: normal (hyperdynamic) Valvular Disease: + no significant valvular disease
[2020-10-05] MEDS ORDERED: ONDANSETRON INJ 2 MG/ML 2 ML VIAL ONE (17:12)
[2020-10-05] MEDS ORDERED: PROPOFOL IV EMULSION 10 MG/ML 20 ML VIAL IV ONE (17:12)
[2020-10-05] MEDS ORDERED: LIDOCAINE 2% 2 ML VIAL/AMP(20MG/ML) INFIL ONE (17:12)
[2020-10-05] MEDS ORDERED: fentaNYL citrate 100 MCG/2 ML VIAL ONE (17:12)
[2020-10-05] MEDS ORDERED: GLUCAGON FOR INJ 1 MG VIAL SQ PRN (17:20)
[2020-10-05] MEDS ORDERED: guaiFENesin 600 MG TABCR PO PRN (17:20)
[2020-10-05] MEDS ORDERED: IPRATROPIUM BROMIDE NEB SOLN 0.02% 2.5 ML VIAL INH PRN (17:20)
[2020-10-05] MEDS ORDERED: PROMETHAZINE HCL 12.5 MG in SODIUM CHLORIDE 0.9% 50 ML IV PRN (17:20)
[2020-10-05] MEDS ORDERED: NITROGLYCERIN SL 0.4 MG/TAB TAB SL PRN ×2 (17:20)
[2020-10-05] MEDS ORDERED: bisacodyL 10 MG SUPP PR PRN (17:20)
[2020-10-05] MEDS ORDERED: LEVALBUTEROL 1.25MG/0.5ML NEB INH PRN (17:20)
[2020-10-05] MEDS ORDERED: XOPENEX/ATROVENT 1.25mg/0.5MG NEB COMBO NEB PRN (17:20)
[2020-10-05] MEDS ORDERED: LORATADINE 10 MG TAB PO PRN (17:28)
--- NOTE | 2020-10-05 17:32 | History & Physical Bridge Note ---
Date of Service October 05, 2020 History & Physical Bridge Note I have examined the patient, reviewed the History & Physical and in the interval since the performance of the History & Physical I have noted the following changes of clinical significance: no changes noted
[2020-10-05] MEDS ORDERED: ATROPINE SULFATE 0.1 MG/ML 10ML SYR IV PRN (17:41)
[2020-10-05] MEDS ORDERED: fentaNYL citrate 100 MCG/2 ML VIAL IV PRN (17:41)
[2020-10-05] MEDS ORDERED: NALOXONE HCL 0.4 MG/1 ML VIAL/CARP IV PRN ×2 (17:41→19:05)
[2020-10-05] MEDS ORDERED: ePHEDrine sulfate 50 MG/ML AMP IV PRN (17:41)
[2020-10-05] MEDS ORDERED: LABETALOL HCL IV 5 MG/ML 20ML IV PRN (17:41)
[2020-10-05] MEDS ORDERED: FLUMAZENIL 0.1 MG/1 ML 10 ML VIAL IV PRN (17:41)
[2020-10-05] MEDS ORDERED: POTASSIUM CHLORIDE 40 MEQ in SODIUM CHLORIDE 0.9% 1000ML 1,000 ML IV SCH (18:00)
[2020-10-05] MEDS ORDERED: SUCCINYLCHOLINE CHLORIDE 20 MG/ML 10 ML VIAL IV ONE (18:06)
[2020-10-05] MEDS: INSULIN ASPART 100 UNITS/ML 3 ML PEN SC SCH ×2 (18:11→20:18)
--- NOTE | 2020-10-05 18:13 | Post Operative Brief Note ---
Immediate Post Op Note v1 Date of Surgery October 05, 2020 Pre & Post Diagnosis Operation Date: 10/05/20 10:05 Pre-Op Diagnosis: HIP PAIN, LEFT HIP DISLOCATION Post-Op Diagnosis: HIP PAIN, LEFT HIP DISLOCATION I identified the patient and participated in the time-out.: Yes Procedure Operation Date: 10/05/20 10:05 Actual Procedures p Left Hip Closed Reduction(Left) hip prosthesis- Alexey Valentine DO Surgeon Alexey Valentine DO Burner Technician None Estimated Blood Loss 0 Findings Consistent with Post-Op Diagnosis Fluids See anesthesia report Drains Gotti Catheter (patient entered OR suite with gotti intact) Anesthesia Type General Complications none Disposition Disposition: Recovery Room Overlapping Procedure I was present for: the critical portions of procedure. I was immediately available: during the entire case. Back up surgeon: was not required during procedure.
--- NOTE | 2020-10-05 18:14 | Operative Report ---
Post Operative Report Pre & Post Diagnosis Operation Date: 10/05/20 10:05 Pre-Op Diagnosis: HIP PAIN, LEFT HIP DISLOCATION Post-Op Diagnosis: HIP PAIN, LEFT HIP DISLOCATION I identified the patient and participated in the time-out.: Yes Procedure Operation Date: 10/05/20 10:05 Actual Procedures p Left Hip Closed Reduction(Left) - Alexey Valentine DO Surgeon Alexey Valentine DO Ammonium Nitrate Crystallizer None Estimated Blood Loss 0 Findings Consistent with Post-Op Diagnosis Fluids See anesthesia report Specimens None Anesthesia Type General Complications none Disposition Disposition: Recovery Room Indications Patient is an 80-year-old white male known to our practice and is status post left bipolar hemiarthroplasty from 09/20/2020. 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 Patient underwent his hemiarthroplasty at the end of August and was then transferred to [facility] for further rehab. The patient was then discharged to home. He states that he was doing well at home. While sitting in his recliner, the patient states that he was trying to get out of his recliner with his helping him. As he was getting up and she was pulling on his arms to help him up, his left leg had slipped out underneath him and he fell to the floor. He states he felt immediate pain in his left hip and groin. He was unable to ambulate at that point and he was brought to the emergency room. X-rays were taken and it was found that he had a dislocated left bipolar hemiarthroplasty. ER nursing relates history of attempted reduction but was unsuccessful. We have been asked to take care of his hip dislocation. I indicated the patient for closed reduction left hip hemiarthroplasty, patient INR supratherapeutic and will only attempt closed reduction. If unsuccessful would need to lower INR safely so open reduction can be performed. The patient was informed of the risks and benefits of surgery, which include but not limited to injury to nerves, bone including fracture, vessels and soft tissue, arthrofibrosis, recurrent instability, need for additional surgery, loss of life. The patient chose to move forward with closed reduction and informed consent was obtained. Description of Procedure The patient was brought to the operating room and transferred to the OR table. After the patient received adequate anesthesia leg lengths were assessed and the left lower extremity was found to be short and internally rotated. A timeout was performed, site ernestina identified and x-rays verified. The C arm fluoroscopy was positioned and initial x-rays of the left hip and femur demonstrated a posterior superior dislocation of the hip prosthesis without fracture of the femur. A gentle reduction maneuver was performed with traction, flexion, adduction of the hip and a combination of internal and external rotation was applied to the left leg. A appreciable clunk was felt and leg lengths were assessed once more and found to be equal. C-arm fluoroscopy was brought in once more and images were taken confirming reduction of the total hip prosthesis. X- rays of the femur demonstrated no new fracture of the femur post-reduction. The patient tolerated the procedure well and was transferred to the PACU in stable condition. I attest to the content of the Intraoperative Record and any orders documented therein. Any exceptions are noted below.
--- NOTE | 2020-10-05 18:31 | Anesthesiology Progress Note ---
Date of Service October 05, 2020 Anesthesia Post Procedure Vital Signs Vital Signs: Temp Pulse Pulse Resp BP BP BP 10/05/20 18:20 87 18 116/70 10/05/20 18:11 36.2 C L 92 H 16 106/69 10/05/20 17:32 36.5 C 88 16 128/85 10/05/20 17:29 36.7 C 89 18 105/74 10/05/20 15:43 36.5 C 95 H 16 125/74 10/05/20 15:13 36.3 C L 91 H 16 115/67 10/05/20 14:58 36.4 C L 88 20 127/80 10/05/20 14:41 36.4 C L 87 18 114/70 10/05/20 09:30 102 H 20 147/78 H 10/05/20 09:10 106 H 16 10/05/20 09:00 117 H 22 132/73 10/05/20 08:30 101 H 20 132/86 10/05/20 08:00 114 H 20 10/05/20 07:53 107 H 15 107/70 10/05/20 07:40 107 H 22 10/05/20 07:00 100 H 22 142/91 H 10/05/20 06:30 108 H 17 130/87 10/05/20 06:00 109 H 20 129/90 10/05/20 05:30 107 H 19 10/05/20 05:07 36.9 C 100 H 16 106/72 10/05/20 05:06 98 H 22 10/05/20 05:04 110 H 20 106/72 Pulse Ox 10/05/20 18:20 100 10/05/20 18:11 100 10/05/20 17:32 100 10/05/20 17:29 100 10/05/20 15:43 100 10/05/20 15:13 100 10/05/20 14:58 100 10/05/20 14:41 100 10/05/20 09:30 100 10/05/20 09:10 98 10/05/20 09:00 99 10/05/20 08:30 95 10/05/20 08:00 93 10/05/20 07:53 97 10/05/20 07:40 96 10/05/20 07:00 98 06/08/21 06:30 90 10/05/20 06:00 98 10/05/20 05:30 95 10/05/20 05:07 95 10/05/20 05:06 95 10/05/20 05:04 95 Pain Intensity Left Hip: Pain Intensity: 9 Transfer of Care Handoff Completed per policy Notes Mental Status: alert / awake / arousable Patient Amnestic to Procedure: Yes Nausea / Vomiting: adequately controlled Pain: adequately controlled Airway Patency, RR, SpO2: stable & adequate BP & HR: stable & adequate Hydration State: stable & adequate Anesthetic Complications: no major complications apparent
--- NOTE | 2020-10-05 18:53 | Orthopedic Progress Note ---
Date of Service October 05, 2020 Assessment & Plan (1) Hip dislocation, left: s/p closed reduction left hip hemiarthroplasty -WBAT LLE -Maintain KI at this time, will order hip abduction brace -INR supratheraputic, defer to medicine team, may restart when able. -PT/OT -Posterior hip precautions Admission and Anticipated Discharge Date Admission Date: October 05, 2020 Subjective Post Operative Progress Note Patient seen in PACU, comfortable, denies complaints, pain well controlled, no acute issues. Review of Systems Review of Systems: All systems reviewed & are unremarkable except as noted in HPI & below Constitutional: as per Subjective / HPI Physical Exam Physical Exam: LLE NVSI +EHL/FHL/TA/GS SILT grossly, +2 DP pulse, compartments soft NT, leg lengths equal Constitutional: WD/WN, vitals as above Results & Data ([facility]) Vital Signs (Past 12 Hours) Vital Signs Temp Pulse Pulse Resp BP BP BP 10/05/20 18:40 87 18 118/74 10/05/20 18:30 36.1 C L 93 H 18 119/76 10/05/20 18:20 87 18 116/70 10/05/20 18:11 36.2 C L 92 H 16 106/69 10/05/20 17:32 36.5 C 88 16 128/85 10/05/20 17:29 36.7 C 89 18 105/74 10/05/20 15:43 36.5 C 95 H 16 125/74 10/05/20 15:13 36.3 C L 91 H 16 115/67 10/05/20 14:58 36.4 C L 88 20 127/80 10/05/20 14:41 36.4 C L 87 18 114/70 10/05/20 09:30 102 H 20 147/78 H 10/05/20 09:10 106 H 16 10/05/20 09:00 117 H 22 132/73 10/05/20 08:30 101 H 20 132/86 10/05/20 08:00 114 H 20 10/05/20 07:53 107 H 15 107/70 10/05/20 07:40 107 H 22 10/05/20 07:00 100 H 22 142/91 H Pulse Ox 10/05/20 18:40 99 10/05/20 18:30 98 10/05/20 18:20 100 10/05/20 18:11 100 10/05/20 17:32 100 10/05/20 17:29 100 10/05/20 15:43 100 10/05/20 15:13 100 10/05/20 14:58 100 10/05/20 14:41 100 10/05/20 09:30 100 10/05/20 09:10 98 10/05/20 09:00 99 10/05/20 08:30 95 10/05/20 08:00 93 10/05/20 07:53 97 10/05/20 07:40 96 10/05/20 07:00 98
--- NOTE | 2020-10-05 19:07 | Fluoroscopy Report ---
FL hip LT 1V CLINICAL HISTORY: CLOSED REDUCTION LT HIP COMPARISON STUDY: CT left hip 10/05/2020. FLUOROSCOPY TIME: 10 seconds. FINDINGS: 3 fluoroscopic spot images of the left hip demonstrate a left hip hemiarthroplasty. No frac ture or dislocation. The hardware appears intact. IMPRESSION: Fluoroscopy provided for closed reduction of a left hip arthroplasty dislocation. Alignme nt is anatomic. ACT 112: Negative or not required by law. Electronically signed by: Cali Sams M.D. 10/05/2020 7:06 PM
--- NOTE | 2020-10-05 19:08 | XRay Report ---
XR hip LT min 2V CLINICAL HISTORY: Post-Operative implant position COMPARISON STUDY: Pelvis 10/05/2020. FINDINGS: There is a left hip hemiarthroplasty. No fracture or dislocation. The hardware appears inta ct. Skin heber are in place. IMPRESSION: Normal anatomic alignment of a left hip hemiarthroplasty status post closed reduction. ACT 112: Negative or not required by law. Electronically signed by: Cali Sams M.D. 10/05/2020 7:07 PM
[2020-10-05] MEDS: METOPROLOL TARTRATE 25 MG TAB PO SCH (20:17)
[2020-10-05] MEDS: SIMVASTATIN 20 MG TAB PO SCH (20:18)
[2020-10-05] MEDS: TAMSULOSIN HCL 0.4 MG CAP PO SCH (20:18)
[2020-10-05] MEDS: FLUTICASONE PROPIONATE NA SPR 16 GM BTL SCH (20:19)
[2020-10-06] MEDS: INSULIN ASPART 100 UNITS/ML 3 ML PEN SC SCH ×6 (00:31→20:55)
--- NOTE | 2020-10-06 05:53 | Electrocardiogram Report ---
Test Reason : Blood Pressure : / mmHG Vent. Rate : 105 BPM Atrial Rate : 093 BPM P-R Int : 000 ms QRS Dur : 116 ms QT Int : 360 ms P-R-T Axes : 000 -56 101 degrees QTc Int : 475 ms Poor data quality, interpretation may be adversely affected Atrial fibrillation with rapid ventricular response Incomplete right bundle branch block Left anterior fascicular block Abnormal ECG When compared with ECG of 18-SEP-2020 15:27, No significant change Confirmed by Kvng Teran ([id number]) on 10/06/2020 5:53:42 AM Referred By: REFERRED SELF Confirmed By:Kvng Teran
[2020-10-06 07:36] LABS: Basophils # (auto) 0.01 K/uL (0-0.2); Basophils % (auto) 0.1 %; Eosinophils # (auto) 0.03 K/uL (0-0.5); Eosinophils % (auto) 0.4 %; Hematocrit (blood only) 31.2 % (42-52); Hemoglobin 9.2 g/dL (14.0-18.0); Immature Granulocytes # (auto) 0.02 K/uL (0.00-0.02); Immature Granulocytes % (auto) 0.3 %; Lymphocytes # (auto) 0.84 K/uL (1.2-3.4); Lymphocytes % (auto) 11.3 %; Mean Corpuscular Hemoglobin 25.6 pg (25-34); Mean Corpuscular Hgb Conc 29.5 g/dL (32-36); Mean Corpuscular Volume 86.9 fL (80-100); Mean Platelet Volume 9.4 fL (7.4-10.4); Monocytes # (auto) 0.62 K/uL (0.11-0.59); Monocytes % (auto) 8.4 %; Neutrophils # (auto) 5.89 K/uL (1.4-6.5); Neutrophils % (auto) 79.5 %; Platelet Count 342 K/uL (130-400); RDW Coefficient of Variation 16.6 % (11.5-14.5); RDW Standard Deviation 52.8 fL (36.4-46.3); Red Blood Count 3.59 M/uL (4.7-6.1); White Blood Count 7.41 K/uL (4.8-10.8)
[2020-10-06 07:57] LABS: INR 5.1 (0.9-1.1); Prothrombin Time 45.4 Seconds (9.0-12.0)
[2020-10-06 08:10] LABS: BUN Creatinine Ratio 32.5 (10-20); Calcium 8.8 mg/dl (8.5-10.1); Creatinine Clr Calc Pharmacy 56.3 ml/min; Est GFR (African American) 71.3 ml/min; Est GFR (Non-African American) 61.5 ml/min; Potassium 4.5 mmol/L (3.5-5.1)
[2020-10-06] MEDS: FLUTICASONE PROPIONATE NA SPR 16 GM BTL SCH (08:19)
[2020-10-06] MEDS: METOPROLOL TARTRATE 25 MG TAB PO SCH ×2 (08:19→20:12)
[2020-10-06] MEDS: oxyCODONE HCL IR 5 MG TAB (IMMEDIATE RELEASE) PO PRN ×2 (08:53→14:26)
[2020-10-06] MEDS ORDERED: INSULIN GLARGINE SOLOSTAR 100 UNITS/ML 3 ML PEN SC SCH ×2 (09:00→21:00)
[2020-10-06] MEDS: INSULIN GLARGINE SOLOSTAR 100 UNITS/ML 3 ML PEN SC SCH (09:55)
--- NOTE | 2020-10-06 11:01 | Orthopedic Progress Note ---
Date of Service October 06, 2020 Assessment & Plan (1) Hip dislocation, left: s/p closed reduction left hip hemiarthroplasty POD#1 -WBAT LLE -Maintain KI at this time, will order hip abduction brace -INR supratheraputic, defer to medicine team, may restart when able. -PT/OT -Posterior hip precautions -DC heber -Abduction brace ordered Admission and Anticipated Discharge Date Admission Date: October 05, 2020 Subjective Post Operative Progress Note Patient seen sitting up in bed, comfortable, denies complaints, pain well controlled, no acute issues. Denies F/C/N/V/SOB/CP. Review of Systems Review of Systems: All systems reviewed & are unremarkable except as noted in HPI & below Constitutional: as per Subjective / HPI Physical Exam Physical Exam: LLE NVSI +EHL/FHL/TA/GS SILT grossly, +2 DP pulse, compartments soft NT. Constitutional: WD/WN, vitals as above Results & Data ([facility]) Vital Signs (Past 12 Hours) Vital Signs Temp Pulse Pulse Resp BP BP Pulse Ox 10/06/20 07:53 36.2 C L 98 H 20 107/67 95 10/06/20 03:57 37.1 C 104 H 16 106/67 96 10/06/20 00:52 98 H 10/06/20 00:42 36.4 C L 120 H 18 130/80 95 Laboratory Results 10/06/20 10/06/20 10/06/20 Range/Units 07:12 06:45 06:45 WBC (4.8-10.8) K/uL RBC (4.7-6.1) M/uL Hgb (14.0-18.0) g/dL Hct (42-52) % MCV (80-100) fL MCH (25-34) pg MCHC (32-36) g/dL RDW Std Deviation (36.4-46.3) fL RDW Coeff of Samira (11.5-14.5) % Plt Count (130-400) K/uL MPV (7.4-10.4) fL Immature Gran % (Auto) % Neut % (Auto) % Lymph % (Auto) % Rice % (Auto) % Eos % (Auto) % Baso % (Auto) % Neut # (Auto) (1.4-6.5) K/uL Lymph # (Auto) (1.2-3.4) K/uL Rice # (Auto) (0.11-0.59) K/uL Eos # (Auto) (0-0.5) K/uL Baso # (Auto) (0-0.2) K/uL Immature Gran # (Auto) (0.00-0.02) K/uL PT 45.4 H (9.0-12.0) Seconds INR 5.1 H (0.9-1.1) Sodium 141 (136-145) mmol/L Potassium 4.5 D (3.5-5.1) mmol/L Chloride 106 (98-107) mmol/L Carbon Dioxide 33 H (21-32) mmol/L Anion Gap 3.0 (3-11) BUN 36 H (7-18) mg/dl Creatinine 1.11 D (0.6-1.4) mg/dl Est Cr Clr Drug Dosing 56.3 ml/min Est GFR ( Amer) 71.3 ml/min Est GFR (Non-Af Amer) 61.5 ml/min BUN/Creatinine Ratio 32.5 H (10-20) Glucose 98 (70-99) mg/dl POC Glucose 102 H (70-99) mg/dl Calcium 8.8 (8.5-10.1) mg/dl Blood Type Antibody Screen Crossmatch 10/06/20 10/06/20 10/06/20 Range/Units 06:45 03:53 00:37 WBC 7.41 (4.8-10.8) K/uL RBC 3.59 L (4.7-6.1) M/uL Hgb 9.2 L (14.0-18.0) g/dL Hct 31.2 L (42-52) % MCV 86.9 (80-100) fL MCH 25.6 (25-34) pg MCHC 29.5 L (32-36) g/dL RDW Std Deviation 52.8 H (36.4-46.3) fL RDW Coeff of Samira 16.6 H (11.5-14.5) % Plt Count 342 (130-400) K/uL MPV 9.4 (7.4-10.4) fL Immature Gran % (Auto) 0.3 % Neut % (Auto) 79.5 % Lymph % (Auto) 11.3 % Rice % (Auto) 8.4 % Eos % (Auto) 0.4 % Baso % (Auto) 0.1 % Neut # (Auto) 5.89 (1.4-6.5) K/uL Lymph # (Auto) 0.84 L (1.2-3.4) K/uL Rice # (Auto) 0.62 H (0.11-0.59) K/uL Eos # (Auto) 0.03 (0-0.5) K/uL Baso # (Auto) 0.01 (0-0.2) K/uL Immature Gran # (Auto) 0.02 (0.00-0.02) K/uL PT (9.0-12.0) Seconds INR (0.9-1.1) Sodium (136-145) mmol/L Potassium (3.5-5.1) mmol/L Chloride (98-107) mmol/L Carbon Dioxide (21-32) mmol/L Anion Gap (3-11) BUN (7-18) mg/dl Creatinine (0.6-1.4) mg/dl Est Cr Clr Drug Dosing ml/min Est GFR ( Amer) ml/min Est GFR (Non-Af Amer) ml/min BUN/Creatinine Ratio (10-20) Glucose (70-99) mg/dl POC Glucose 78 90 (70-99) mg/dl Calcium (8.5-10.1) mg/dl Blood Type Antibody Screen Crossmatch 10/06/20 10/05/20 10/05/20 Range/Units 00:11 20:17 18:14 WBC (4.8-10.8) K/uL RBC (4.7-6.1) M/uL Hgb (14.0-18.0) g/dL Hct (42-52) % MCV (80-100) fL MCH (25-34) pg MCHC (32-36) g/dL RDW Std Deviation (36.4-46.3) fL RDW Coeff of Samira (11.5-14.5) % Plt Count (130-400) K/uL MPV (7.4-10.4) fL Immature Gran % (Auto) % Neut % (Auto) % Lymph % (Auto) % Rice % (Auto) % Eos % (Auto) % Baso % (Auto) % Neut # (Auto) (1.4-6.5) K/uL Lymph # (Auto) (1.2-3.4) K/uL Rice # (Auto) (0.11-0.59) K/uL Eos # (Auto) (0-0.5) K/uL Baso # (Auto) (0-0.2) K/uL Immature Gran # (Auto) (0.00-0.02) K/uL PT (9.0-12.0) Seconds INR (0.9-1.1) Sodium (136-145) mmol/L Potassium (3.5-5.1) mmol/L Chloride (98-107) mmol/L Carbon Dioxide (21-32) mmol/L Anion Gap (3-11) BUN (7-18) mg/dl Creatinine (0.6-1.4) mg/dl Est Cr Clr Drug Dosing ml/min Est GFR ( Amer) ml/min Est GFR (Non-Af Amer) ml/min BUN/Creatinine Ratio (10-20) Glucose (70-99) mg/dl POC Glucose 43 L* 94 226 H (70-99) mg/dl Calcium (8.5-10.1) mg/dl Blood Type Antibody Screen Crossmatch 10/05/20 10/05/20 10/05/20 Range/Units 17:36 16:33 16:32 WBC (4.8-10.8) K/uL RBC (4.7-6.1) M/uL Hgb (14.0-18.0) g/dL Hct (42-52) % MCV (80-100) fL MCH (25-34) pg MCHC (32-36) g/dL RDW Std Deviation (36.4-46.3) fL RDW Coeff of Samira (11.5-14.5) % Plt Count (130-400) K/uL MPV (7.4-10.4) fL Immature Gran % (Auto) % Neut % (Auto) % Lymph % (Auto) % Rice % (Auto) % Eos % (Auto) % Baso % (Auto) % Neut # (Auto) (1.4-6.5) K/uL Lymph # (Auto) (1.2-3.4) K/uL Rice # (Auto) (0.11-0.59) K/uL Eos # (Auto) (0-0.5) K/uL Baso # (Auto) (0-0.2) K/uL Immature Gran # (Auto) (0.00-0.02) K/uL PT (9.0-12.0) Seconds INR (0.9-1.1) Sodium (136-145) mmol/L Potassium (3.5-5.1) mmol/L Chloride (98-107) mmol/L Carbon Dioxide (21-32) mmol/L Anion Gap (3-11) BUN (7-18) mg/dl Creatinine (0.6-1.4) mg/dl Est Cr Clr Drug Dosing ml/min Est GFR ( Amer) ml/min Est GFR (Non-Af Amer) ml/min BUN/Creatinine Ratio (10-20) Glucose (70-99) mg/dl POC Glucose 239 H 284 H 319 H* (70-99) mg/dl Calcium (8.5-10.1) mg/dl Blood Type Antibody Screen Crossmatch 10/05/20 10/05/20 10/05/20 Range/Units 12:30 12:29 08:03 WBC (4.8-10.8) K/uL RBC (4.7-6.1) M/uL Hgb (14.0-18.0) g/dL Hct (42-52) % MCV (80-100) fL MCH (25-34) pg MCHC (32-36) g/dL RDW Std Deviation (36.4-46.3) fL RDW Coeff of Samira (11.5-14.5) % Plt Count (130-400) K/uL MPV (7.4-10.4) fL Immature Gran % (Auto) % Neut % (Auto) % Lymph % (Auto) % Rice % (Auto) % Eos % (Auto) % Baso % (Auto) % Neut # (Auto) (1.4-6.5) K/uL Lymph # (Auto) (1.2-3.4) K/uL Rice # (Auto) (0.11-0.59) K/uL Eos # (Auto) (0-0.5) K/uL Baso # (Auto) (0-0.2) K/uL Immature Gran # (Auto) (0.00-0.02) K/uL PT (9.0-12.0) Seconds INR (0.9-1.1) Sodium (136-145) mmol/L Potassium (3.5-5.1) mmol/L Chloride (98-107) mmol/L Carbon Dioxide (21-32) mmol/L Anion Gap (3-11) BUN (7-18) mg/dl Creatinine (0.6-1.4) mg/dl Est Cr Clr Drug Dosing ml/min Est GFR ( Amer) ml/min Est GFR (Non-Af Amer) ml/min BUN/Creatinine Ratio (10-20) Glucose (70-99) mg/dl POC Glucose 406 H* 415 H* (70-99) mg/dl Calcium (8.5-10.1) mg/dl Blood Type O Positive Antibody Screen NEGATIVE Crossmatch See Detail
[2020-10-06] MEDS ORDERED: Nursing to Pharmacy Communication SCH (11:15)
[2020-10-06] MEDS: CALCIUM CARBONATE 500 MG CHEWABLE TAB PO PRN (13:53)
--- NOTE | 2020-10-06 13:53 | Hospitalist Progress Note ---
Date of Service October 06, 2020 Assessment & Plan (1) Hip dislocation, left: Recent admission to [facility] from September 18 to September 24 with left hip fracture He is status post repair of left hip and went to [facility] for rehab He signed out himself from rehab and went home. He was trying to push himself out of the recliner when his left leg slipped out and caused him to fall He dislocated his left hip Complains some pain in the left hip Appreciate Ortho input and recommendation The left hip has been repositioned and he is getting PT and OT evaluation Pain is reasonably controlled (2) Rapid atrial fibrillation: Has history of paroxysmal atrial fibrillation on Coumadin Admitted with rapid ventricular response We will continue his current medications Heart rate is still remains slightly elevated at 118 We will increase his beta-chiquita to 50mg twice daily with hold parameters (3) Supratherapeutic INR: Admission INR was 3.6 and went up to more than 5 as of this morning No signs of bleeding and/or bruising We will hold his Coumadin and and monitor INR (4) Interstitial lung disease: Has chronic respiratory failure secondary to COPD/bronchi ectasis/interstitial lung disease He has been under care of Dr. Johansen as an outpatient (5) COPD (chronic obstructive pulmonary disease): (6) HTN (hypertension): Blood pressure remains towards lower side of normal (7) CKD (chronic kidney disease) stage 3, GFR 30-59 ml/min: Remains stable DVT prophylaxis Has been on Coumadin and INR is supratherapeutic Admission and Anticipated Discharge Date Admission Date: October 05, 2020 Subjective 10/06/2020 The patient was seen and examined in telemetry unit He is a status post fall with destruction of the left hip which has been repositioned by the orthopedic surgeon He has been having some pain but denies any other significant symptoms Review of Systems Review of Systems: All systems reviewed and are unremarkable except as noted below Respiratory: + cough and + dyspnea on exertion Musculoskeletal: Pain in the left hip Physical Exam Physical Exam: Sitting at the edge of the bed with minimal shortness of breath Constitutional: well developed, well nourished, + ill appearing and + obese Eyes: PERRL, conjunctivae normal, anicteric sclerae ENMT: external ear and nose normal, oropharynx normal Neck: trachea midline, no thyromegaly Respiratory: + respiratory distress (Minimal respiratory distress at rest) Auscultation: + diminished lung sounds, + crackles (Occasional crackles at the bases) and + wheezes (Occasional wheezing bilaterally) Cardiovascular: Rate/Rhythm: + irregularly irregular Heart Sounds: + murmur Extremities: + edema (Bilateral leg edema) Gastrointestinal (Abdomen): Inspection/Auscultation: abdomen not distended Percussion/Palpation: abdomen soft; abdomen nontender Musculoskeletal: Has pain with movement of the left lower extremity Neurologic: Alert, awake and oriented x3. Generally weak Lymphatic: no cervical or axillary lymphadenopathy Results & Data Results & [facility] ([facility]) Vital Signs (Past 12 Hours) Vital Signs Temp Pulse Resp BP BP Pulse Ox 10/06/20 12:12 36.8 C 118 H 18 95/66 L 91 10/06/20 07:53 36.2 C L 98 H 20 107/67 95 10/06/20 03:57 37.1 C 104 H 16 106/67 96 Laboratory Results Short CBC 10/06/20 Range/Units 06:45 WBC 7.41 (4.8-10.8) K/uL Hgb 9.2 L (14.0-18.0) g/dL Hct 31.2 L (42-52) % Plt Count 342 (130-400) K/uL BMP 10/06/20 06:45 Sodium 141 Potassium 4.5 D Chloride 106 Carbon Dioxide 33 H BUN 36 H Creatinine 1.11 D Glucose 98 Calcium 8.8 Medications Administered Current Inpatient Medications Acetaminophen (Acetaminophen 325 Mg Tab) 650 mg PO Q6H PRN PRN Reason: Fever/pain Stop: 11/04/20 07:44 Bisacodyl (Bisacodyl 10 Mg Supp) 10 mg AK DAILY PRN PRN Reason: Constipation Stop: 11/04/20 17:19 Calcium Carbonate (Calcium Carbonate 500 Mg Chewable Tab) 1,500 mg PO BID PRN PRN Reason: Indigestion Stop: 11/04/20 14:02 Last Admin: 10/05/20 14:11 Dose: 1,500 mg Documented by: Dextrose (Dextrose 50% 50 Ml Syringe) 25 - 50 ml IV UD PRN; Protocol PRN Reason: Hypoglycemia Protocol Stop: 11/04/20 11:14 Last Admin: 10/06/20 00:22 Dose: 50 ml Documented by: Digoxin (Digoxin 0.125 Mg Tab) 0.125 mg PO [id number]@[id number] [facility] Stop: 11/05/20 15:59 Fluticasone Propionate (Fluticasone Propionate Na Spr 16 Gm Btl) 2 sprays NA DAILY RASHEL Stop: 11/04/20 17:59 Last Admin: 10/06/20 08:19 Dose: 2 sprays Documented by: Glucagon (Glucagon For Inj 1 Mg Vial) 1 mg IM UD PRN; Protocol PRN Reason: Hypoglycemia Protocol Stop: 11/04/20 11:14 Glucose (Glucose 40% Gel 15 Gm Tube) 15 - 30 gm PO UD PRN; Protocol PRN Reason: Hypoglycemia Protocol Stop: 11/04/20 11:14 Glucose (Glucose 10 Tabs/Tube) 4 - 8 tabs PO UD PRN; Protocol PRN Reason: Hypoglycemia Protocol Stop: 11/04/20 11:14 Guaifenesin (Guaifenesin 600 Mg Tabcr) 600 mg PO Q12H PRN PRN Reason: Congestion Stop: 11/04/20 17:19 Hydromorphone HCl (Hydromorphone Inj 0.5 Mg/0.5 Ml Syr) 0.25 mg IV Q3H PRN PRN Reason: Pain Stop: 10/19/20 08:30 Promethazine HCl 12.5 mg/ (Sodium Chloride) 50.5 mls @ 202 mls/hr IV Q6H PRN PRN Reason: Nausea And Vomiting Stop: 11/04/20 17:19 Insulin Aspart (Insulin Aspart 100 Units/Ml 3 Ml Pen) 0 units SC ACHS [facility] Stop: 11/05/20 07:44 Last Admin: 10/06/20 11:52 Dose: 300 units Documented by: Insulin Glargine (Insulin Glargine Solostar 100 Units/Ml 3 Ml Pen) 15 units SC DAILY [facility] Stop: 11/05/20 08:59 Last Admin: 10/06/20 09:55 Dose: 15 units Documented by: Ipratropium [place] (Ipratropium [place] Neb Soln 0.02% 2.5 Ml Vial) 0.5 mg INH Q4H PRN PRN Reason: SOB WHEEZE Stop: 11/04/20 17:19 Levalbuterol HCl (Levalbuterol 1.25mg/0.5ml Neb) 1.25 mg INH Q4H PRN PRN Reason: SOB WHEEZE Stop: 11/04/20 17:19 Loratadine (Loratadine 10 Mg Tab) 10 mg PO DAILY PRN PRN Reason: Allergy Symptoms Stop: 11/04/20 17:27 Metoprolol Tartrate (Metoprolol Tartrate 25 Mg Tab) 25 mg PO BID RASHEL Stop: 11/04/20 17:29 Last Admin: 10/06/20 08:19 Dose: 25 mg Documented by: Miscellaneous (Carbohydrates For Hypoglycemia ) 15 - 30 gm PO UD PRN PRN Reason: Hypoglycemia Treatment Stop: 11/04/20 11:14 Miscellaneous Information (Pharmacy Glycemic Mgmt Consult) 1 ea N/A UD PRN PRN Reason: Consult Stop: 11/04/20 09:39 Naloxone HCl (Naloxone Hcl 0.4 Mg/1 Ml Vial/Carp) 0.1 mg IV UD PRN PRN Reason: Opioid Overdose Stop: 11/04/20 19:04 Nitroglycerin (Nitroglycerin Sl 0.4 Mg/Tab Tab) 0.4 mg SL UD PRN PRN Reason: Chest Pain Stop: 11/04/20 17:19 Oxycodone HCl (Oxycodone Hcl Ir 5 Mg Tab (Immediate Release)) 5 - 10 mg PO QID PRN PRN Reason: Pain Stop: 10/19/20 07:43 Last Admin: 10/06/20 08:53 Dose: 5 mg Documented by: Simvastatin (Simvastatin 20 Mg Tab) 20 mg PO QDD [facility] Stop: 11/04/20 17:29 Last Admin: 10/05/20 20:18 Dose: 20 mg Documented by: Tamsulosin HCl (Tamsulosin Hcl 0.4 Mg Cap) 0.4 mg PO HS [facility] Stop: 11/04/20 20:59 Last Admin: 10/05/20 20:18 Dose: 0.4 mg Documented by: (1) COPD (chronic obstructive pulmonary disease) COPD type: unspecified COPD Qualified Code(s): J44.9 - Chronic obstructive pulmonary disease, unspecified
--- NOTE | 2020-10-06 15:20 | Pharmacy Report ---
Pharmacy Glycemic Short Note 2 - Date of Service October 06, 2020 - Glycemic Short BSG Results (Last 24 hours): 10/05/20 10/05/20 10/05/20 16:32 16:33 17:36 Glucose POC Glucose 319 H* 284 H 239 H 10/05/20 10/05/20 10/06/20 18:14 20:17 00:11 Glucose POC Glucose 226 H 94 43 L* 10/06/20 10/06/20 10/06/20 00:37 03:53 06:45 Glucose 98 POC Glucose 90 78 10/06/20 10/06/20 07:12 11:23 Glucose POC Glucose 102 H 140 H OUTPATIENT ANTIDIABETIC REGIMEN: * Lantus 22 units AM, Novolog 3-4x per day per SSI * A1c 9.1% 09/19/20 ASSESSMENT: 10/06 * Patient received total of 34 units of insulin yesterday, of which 20 units were basal insulin * BSGs low overnight - given amp D50 per hypoglycemia protocol. Patient NPO yesterday, started on diet this AM * PO intake remains poor this AM - did scale back on basal insulin this AM as unclear if lower BSG overnight related to basal? * BSGs tend to fluctuate, will monitor closely 10/05 * Mr. RO has a past medical history including type 1 diabetes, afib, ckd, COPD. Admitted with hip pain with dislocation of left hip arthroplasty to be evaluated by ortho. * BSGs significantly elevated on admission, 415/406 mg/dL. Potassium is 3.6 so will avoid IV bolus of insulin for now, will utilize novolog q4H. If significantly elevated with next check may need to start insulin infusion, in which case potassium will need ordered. * Patient received 20 units of lantus this AM. PLAN FOR INPATIENT GLYCEMIC CONTROL: * Hold outpatient oral diabetes medications * Basal insulin * Lantus 15 units x 1 * Lantus 0-5 units with HS * Bolus insulin * NovoLog per scale ACHS or Q6hrs while NPO * Goal Range: Low 110 mg/dL - High 140 mg/dL * Correction Factor: 30 mg/dL/unit * Nutritional / Prandial insulin per carb ratio of 1 unit per 10 grams CHO consumed
[2020-10-06] MEDS: DIGOXIN 0.125 MG TAB PO SCH (16:05)
[2020-10-06] MEDS: SIMVASTATIN 20 MG TAB PO SCH (17:04)
[2020-10-06] MEDS: TAMSULOSIN HCL 0.4 MG CAP PO SCH (20:12)
[2020-10-07] MEDS ORDERED: INSULIN ASPART 100 UNITS/ML 3 ML PEN SC SCH
[2020-10-07 07:25] LABS: Prothrombin Time 28.2 Seconds (9.0-12.0)
[2020-10-07] MEDS: METOPROLOL TARTRATE 25 MG TAB PO SCH ×2 (08:49→20:52)
[2020-10-07] MEDS: FLUTICASONE PROPIONATE NA SPR 16 GM BTL SCH (08:50)
[2020-10-07] MEDS: INSULIN GLARGINE SOLOSTAR 100 UNITS/ML 3 ML PEN SC SCH (08:51)
[2020-10-07] MEDS: INSULIN ASPART 100 UNITS/ML 3 ML PEN SC SCH ×4 (08:54→21:12)
--- NOTE | 2020-10-07 09:42 | Pharmacy Report ---
Pharmacy Glycemic Short Note 2 - Date of Service October 07, 2020 - Glycemic Short BSG Results (Last 24 hours): 10/06/20 10/06/20 10/06/20 11:23 16:10 20:47 POC Glucose 140 H 163 H 78 10/06/20 10/07/20 23:49 09:16 POC Glucose 88 168 H OUTPATIENT ANTIDIABETIC REGIMEN: * Lantus 22 units AM, Novolog 3-4x per day per SSI * A1c 9.1% 09/19/20 ASSESSMENT: 10/07 * Patient received total of 23 units of insulin yesterday, of which 15 units were basal insulin * BSG check this AM 168, however drawn after patient eating. Of note, only had 6 gm CHO * Plan to continue same CF/CR for now 10/06 * Patient received total of 34 units of insulin yesterday, of which 20 units were basal insulin * BSGs low overnight - given amp D50 per hypoglycemia protocol. Patient NPO yesterday, started on diet this AM * PO intake remains poor this AM - did scale back on basal insulin this AM as unclear if lower BSG overnight related to basal? * BSGs tend to fluctuate, will monitor closely 10/05 * Mr. RO has a past medical history including type 1 diabetes, afib, ckd, COPD. Admitted with hip pain with dislocation of left hip arthroplasty to be evaluated by ortho. * BSGs significantly elevated on admission, 415/406 mg/dL. Potassium is 3.6 so will avoid IV bolus of insulin for now, will utilize novolog q4H. If significantly elevated with next check may need to start insulin infusion, in which case potassium will need ordered. * Patient received 20 units of lantus this AM. PLAN FOR INPATIENT GLYCEMIC CONTROL: * Hold outpatient oral diabetes medications * Basal insulin * Lantus 15 units daily * Bolus insulin * NovoLog per scale ACHS or Q6hrs while NPO * Goal Range: Low 110 mg/dL - High 140 mg/dL * Correction Factor: 35 mg/dL/unit * Nutritional / Prandial insulin per carb ratio of 1 unit per 12 grams CHO consumed DISCHARGE PLAN: * A1c 9.1% - reasonable goal for patient is ~8%. A1c has improved since 03/2020 from 10.8% * TBD
--- NOTE | 2020-10-07 15:48 | Hospitalist Progress Note ---
Date of Service October 07, 2020 Assessment & Plan (1) Hip dislocation, left: Recent admission to [facility] from September 18 to September 24 with left hip fracture He is status post repair of left hip and went to [facility] for rehab He signed out himself from rehab and went home. He was trying to push himself out of the recliner when his left leg slipped out and caused him to fall He dislocated his left hip Complains some pain in the left hip Appreciate Ortho input and recommendation The left hip has been repositioned and he is getting PT and OT evaluation Pain is reasonably controlled Awaiting to be transferred to [facility] for rehab (2) Rapid atrial fibrillation: Has history of paroxysmal atrial fibrillation on Coumadin Admitted with rapid ventricular response We will continue his current medications Heart rate is still remains slightly elevated at 118 We will increase his beta-chiquita to 50mg twice daily with hold parameters Heart rate seems to be controlling (3) Supratherapeutic INR: Admission INR was 3.6 and went up to more than 5 as of this morning No signs of bleeding and/or bruising We will hold his Coumadin and and monitor INR INR is 3.0 today We will recheck tomorrow and start Coumadin (4) Interstitial lung disease: Has chronic respiratory failure secondary to COPD/bronchiectasis/interstitial lung disease He has been under care of Dr. Johansen as an outpatient His pulmonary status remains reasonably stable (5) COPD (chronic obstructive pulmonary disease): (6) HTN (hypertension): Blood pressure remains towards lower side of normal (7) CKD (chronic kidney disease) stage 3, GFR 30-59 ml/min: Remains stable DVT prophylaxis Has been on Coumadin and INR is supratherapeutic [facility] and Anticipated Discharge Date Admission Date: October 05, 2020 Subjective 10/06/2020 The patient was seen and examined in telemetry unit He is a status post fall with destruction of the left hip which has been repositioned by the orthopedic surgeon He has been having some pain but denies any other significant symptoms 10/07/2020 The patient was seen and examined in telemetry unit He has been stable without any significant respiratory symptoms His hip pain remains stable and has been getting physical therapy Denies any other significant symptoms Review of Systems Review of Systems: All systems reviewed and are unremarkable except as noted below Respiratory: + dyspnea on exertion; no cough Musculoskeletal: Pain in the left hip Physical Exam Physical Exam: Sitting at the edge of the bed with minimal shortness of breath Constitutional: well developed, well nourished, + ill appearing and + obese Eyes: PERRL, conjunctivae normal, anicteric sclerae ENMT: external ear and nose normal, oropharynx normal Neck: trachea midline, no thyromegaly Respiratory: + respiratory distress (Minimal respiratory distress at rest) Auscultation: + diminished lung sounds, + crackles (Occasional crackles at the bases) and + wheezes (Occasional wheezing bilaterally) Cardiovascular: Rate/Rhythm: + irregularly irregular Heart Sounds: + murmur Extremities: + edema (Bilateral leg edema) Gastrointestinal (Abdomen): Inspection/Auscultation: abdomen not distended Percussion/Palpation: abdomen soft; abdomen nontender Musculoskeletal: Left hip pain with movement Neurologic: Alert, awake and oriented x3. Generally weak Lymphatic: no cervical or axillary lymphadenopathy Results & Data Results & Data ([facility]) Vital Signs (Past 12 Hours) Vital Signs Temp Pulse Pulse Resp BP Pulse Ox 10/07/20 15:26 36.7 C 109 H 21 117/68 92 10/07/20 14:00 112 H 10/07/20 12:00 36.8 C 92 H 22 100/63 94 10/07/20 08:00 36.9 C 105 H 18 110/66 98 Medications Administered Current Inpatient Medications Acetaminophen (Acetaminophen 325 Mg Tab) 650 mg PO Q6H PRN PRN Reason: Fever/pain Stop: 11/04/20 07:44 Bisacodyl (Bisacodyl 10 Mg Supp) 10 mg DC DAILY PRN PRN Reason: Constipation Stop: 11/04/20 17:19 Calcium Carbonate (Calcium Carbonate 500 Mg Chewable Tab) 1,500 mg PO BID PRN PRN Reason: Indigestion Stop: 11/04/20 14:02 Last Admin: 10/06/20 13:53 Dose: 1,500 mg Documented by: Dextrose (Dextrose 50% 50 Ml Syringe) 25 - 50 ml IV UD PRN; Protocol PRN Reason: Hypoglycemia Protocol Stop: 11/04/20 11:14 Last Admin: 10/06/20 00:22 Dose: 50 ml Documented by: Digoxin (Digoxin 0.125 Mg Tab) 0.125 mg PO [id number]@1600 RASHEL Stop: 11/05/20 15:59 Last Admin: 10/06/20 16:05 Dose: 0.125 mg Documented by: Fluticasone Propionate (Fluticasone Propionate Na Spr 16 Gm Btl) 2 sprays NA DAILY [facility] Stop: 11/04/20 17:59 Last Admin: 10/07/20 08:50 Dose: 2 sprays Documented by: Glucagon (Glucagon For Inj 1 Mg Vial) 1 mg IM UD PRN; Protocol PRN Reason: Hypoglycemia Protocol Stop: 11/04/20 11:14 Glucose (Glucose 40% Gel 15 Gm Tube) 15 - 30 gm PO UD PRN; Protocol PRN Reason: Hypoglycemia Protocol Stop: 11/04/20 11:14 Glucose (Glucose 10 Tabs/Tube) 4 - 8 tabs PO UD PRN; Protocol PRN Reason: Hypoglycemia Protocol Stop: 11/04/20 11:14 Guaifenesin (Guaifenesin 600 Mg Tabcr) 600 mg PO Q12H PRN PRN Reason: Congestion Stop: 11/04/20 17:19 Hydromorphone HCl (Hydromorphone Inj 0.5 Mg/0.5 Ml Syr) 0.25 mg IV Q3H PRN PRN Reason: Pain Stop: 10/19/20 08:30 Promethazine HCl 12.5 mg/ (Sodium Chloride) 50.5 mls @ 202 mls/hr IV Q6H PRN PRN Reason: Nausea And Vomiting Stop: 11/04/20 17:19 Insulin Aspart (Insulin Aspart 100 Units/Ml 3 Ml Pen) 0 units SC ACHS [facility] Stop: 11/05/20 07:44 Last Admin: 10/07/20 12:10 Dose: 7 units Documented by: Insulin Glargine (Insulin Glargine Solostar 100 Units/Ml 3 Ml Pen) 15 units SC DAILY [facility] Stop: 11/05/20 08:59 Last Admin: 10/07/20 08:51 Dose: 15 units Documented by: Ipratropium [place] (Ipratropium [place] Neb Soln 0.02% 2.5 Ml Vial) 0.5 mg INH Q4H PRN PRN Reason: SOB WHEEZE Stop: 11/04/20 17:19 Levalbuterol HCl (Levalbuterol 1.25mg/0.5ml Neb) 1.25 mg INH Q4H PRN PRN Reason: SOB WHEEZE Stop: 11/04/20 17:19 Loratadine (Loratadine 10 Mg Tab) 10 mg PO DAILY PRN PRN Reason: Allergy Symptoms Stop: 11/04/20 17:27 Metoprolol Tartrate (Metoprolol Tartrate 25 Mg Tab) 25 mg PO BID [facility] Stop: 11/04/20 17:29 Last Admin: 10/07/20 08:49 Dose: 25 mg Documented by: Miscellaneous (Carbohydrates For Hypoglycemia ) 15 - 30 gm PO UD PRN PRN Reason: Hypoglycemia Treatment Stop: 11/04/20 11:14 Miscellaneous Information (Pharmacy Glycemic Mgmt Consult) 1 ea N/A UD PRN PRN Reason: Consult Stop: 11/04/20 09:39 Naloxone HCl (Naloxone Hcl 0.4 Mg/1 Ml Vial/Carp) 0.1 mg IV UD PRN PRN Reason: Opioid Overdose Stop: 11/04/20 19:04 Nitroglycerin (Nitroglycerin Sl 0.4 Mg/Tab Tab) 0.4 mg SL UD PRN PRN Reason: Chest Pain Stop: 11/04/20 17:19 Oxycodone HCl (Oxycodone Hcl Ir 5 Mg Tab (Immediate Release)) 5 - 10 mg PO QID PRN PRN Reason: Pain Stop: 10/19/20 07:43 Last Admin: 10/06/20 14:26 Dose: 5 mg Documented by: Simvastatin (Simvastatin 20 Mg Tab) 20 mg PO QDD [facility] Stop: 11/04/20 17:29 Last Admin: 10/06/20 17:04 Dose: 20 mg Documented by: Tamsulosin HCl (Tamsulosin Hcl 0.4 Mg Cap) 0.4 mg PO HS [facility] Stop: 11/04/20 20:59 Last Admin: 10/06/20 20:12 Dose: 0.4 mg Documented by: (1) COPD (chronic obstructive pulmonary disease) COPD type: unspecified COPD Qualified Code(s): J44.9 - Chronic obstructive pulmonary disease, unspecified
[2020-10-07] MEDS: SIMVASTATIN 20 MG TAB PO SCH (17:11)
[2020-10-07] MEDS: TAMSULOSIN HCL 0.4 MG CAP PO SCH (20:52)
[2020-10-08 07:05] LABS: Basophils # (auto) 0.01 K/uL (0-0.2); Basophils % (auto) 0.1 %; Eosinophils # (auto) 0.02 K/uL (0-0.5); Eosinophils % (auto) 0.3 %; Hematocrit (blood only) 27.6 % (42-52); Hemoglobin 8.3 g/dL (14.0-18.0); Immature Granulocytes # (auto) 0.04 K/uL (0.00-0.02); Immature Granulocytes % (auto) 0.5 %; Lymphocytes % (auto) 15.4 %; Mean Corpuscular Hemoglobin 25.8 pg (25-34); Mean Corpuscular Hgb Conc 30.1 g/dL (32-36); Mean Corpuscular Volume 85.7 fL (80-100); Mean Platelet Volume 8.9 fL (7.4-10.4); Monocytes # (auto) 0.69 K/uL (0.11-0.59); Monocytes % (auto) 8.9 %; Neutrophils # (auto) 5.83 K/uL (1.4-6.5); Neutrophils % (auto) 74.8 %; Platelet Count 315 K/uL (130-400); RDW Coefficient of Variation 16.4 % (11.5-14.5); RDW Standard Deviation 51.9 fL (36.4-46.3); Red Blood Count 3.22 M/uL (4.7-6.1); White Blood Count 7.79 K/uL (4.8-10.8)
[2020-10-08 07:22] LABS: INR 1.6 (0.9-1.1); Prothrombin Time 16.1 Seconds (9.0-12.0)
[2020-10-08 07:44] LABS: BUN Creatinine Ratio 24.6 (10-20); Calcium 8.5 mg/dl (8.5-10.1); Creatinine Clr Calc Pharmacy 55.4 ml/min; Est GFR (African American) 63.6 ml/min; Est GFR (Non-African American) 54.9 ml/min; Potassium 4.6 mmol/L (3.5-5.1)
[2020-10-08] MEDS: METOPROLOL TARTRATE 25 MG TAB PO SCH (07:47)
[2020-10-08] MEDS: FLUTICASONE PROPIONATE NA SPR 16 GM BTL SCH (07:49)
[2020-10-08] MEDS: INSULIN ASPART 100 UNITS/ML 3 ML PEN SC SCH ×2 (07:50→12:35)
[2020-10-08] MEDS ORDERED: INSULIN GLARGINE SOLOSTAR 100 UNITS/ML 3 ML PEN SC SCH (09:00)
--- NOTE | 2020-10-08 11:02 | Hospitalist Progress Note ---
Date of Service October 08, 2020 Assessment & Plan (1) Hip dislocation, left: Recent admission to [facility] from September 18 to September 24 with left hip fracture He is status post repair of left hip and went to [facility] for rehab He signed out himself from rehab and went home. He was trying to push himself out of the recliner when his left leg slipped out and caused him to fall He dislocated his left hip Complains some pain in the left hip Appreciate Ortho input and recommendation The left hip has been repositioned and he is getting PT and OT evaluation Pain is reasonably controlled Awaiting to be transferred to [facility] for rehab He is medically stable to be transferred to [facility] when approved (2) Rapid atrial fibrillation: Has history of paroxysmal atrial fibrillation on Coumadin Admitted with rapid ventricular response We will continue his current medications Heart rate is still remains slightly elevated at 118 We will increase his beta-chiquita to 50mg twice daily with hold parameters Heart rate seems to be controlling Heart rate remains on the upper side at [id number] dose has been increased (3) Supratherapeutic INR: Admission INR was 3.6 and went up to more than 5 as of this morning No signs of bleeding and/or bruising We will hold his Coumadin and and monitor INR INR is 3.0 today We will recheck tomorrow and start Coumadin-we will restart his Coumadin from today (4) Interstitial lung disease: Has chronic respiratory failure secondary to COPD/bronchiectasis/interstitial lung disease He has been under care of Dr. Johansen as an outpatient His pulmonary status remains reasonably stable (5) COPD (chronic obstructive pulmonary disease): (6) HTN (hypertension): Blood pressure remains towards lower side of normal (7) CKD (chronic kidney disease) stage 3, GFR 30-59 ml/min: Remains stable DVT prophylaxis Has been on Coumadin and INR is supratherapeutic Awaiting acceptance from [facility] and Anticipated Discharge Date Admission Date: October 05, 2020 Subjective 10/06/2020 The patient was seen and examined in telemetry unit He is a status post fall with destruction of the left hip which has been repositioned by the orthopedic surgeon He has been having some pain but denies any other significant symptoms 10/07/2020 The patient was seen and examined in telemetry unit He has been stable without any significant respiratory symptoms His hip pain remains stable and has been getting physical therapy Denies any other significant symptoms 10/08/2020 The patient was seen and examined in telemetry unit He remains stable without any increasing symptoms of shortness of breath His pain in the left hip remains stable to He has the brace and has been getting physical therapy Adequately stable to be discharged to rehab facility Review of Systems Review of Systems: All systems reviewed and are unremarkable except as noted below Respiratory: + dyspnea on exertion; no cough Musculoskeletal: Pain in the left hip Physical Exam Physical Exam: Sitting on a chair without any acute distress Constitutional: well developed, well nourished, + ill appearing and + obese Eyes: PERRL, conjunctivae normal, anicteric sclerae ENMT: external ear and nose normal, oropharynx normal Neck: trachea midline, no thyromegaly Respiratory: + respiratory distress (Minimal respiratory distress at rest) Auscultation: + diminished lung sounds, + crackles (Occasional crackles at the bases) and + wheezes (Occasional wheezing bilaterally) Cardiovascular: Rate/Rhythm: + irregularly irregular Heart Sounds: + murmur Extremities: + edema (Edema of the left leg mainly) Gastrointestinal (Abdomen): Inspection/Auscultation: abdomen not distended Percussion/Palpation: abdomen soft; abdomen nontender Musculoskeletal: Has pain in the left leg and left hip with movement Neurologic: Alert, awake and oriented x3. Generally weak Lymphatic: no cervical or axillary lymphadenopathy Results & Data Results & Data ([facility]) Vital Signs (Past 12 Hours) Vital Signs Temp Pulse Pulse Resp BP BP Pulse Ox 10/08/20 08:00 111 H 10/08/20 07:57 36.7 C 118 H 22 114/70 97 10/08/20 03:51 37.0 C 124 H 24 108/68 94 10/07/20 23:22 37.4 C 122 H 24 99/51 L 92 Laboratory Results Short CBC 10/08/20 Range/Units 06:34 WBC 7.79 (4.8-10.8) K/uL Hgb 8.3 L (14.0-18.0) g/dL Hct 27.6 L (42-52) % Plt Count 315 (130-400) K/uL BMP 10/08/20 06:34 Sodium 135 L Potassium 4.6 Chloride 101 Carbon Dioxide 29 BUN 30 H Creatinine 1.22 Glucose 183 H Calcium 8.5 Medications Administered Current Inpatient Medications Acetaminophen (Acetaminophen 325 Mg Tab) 650 mg PO Q6H PRN PRN Reason: Fever/pain Stop: 11/04/20 07:44 Bisacodyl (Bisacodyl 10 Mg Supp) 10 mg [place] DAILY PRN PRN Reason: Constipation Stop: 11/04/20 17:19 Calcium Carbonate (Calcium Carbonate 500 Mg Chewable Tab) 1,500 mg PO BID PRN PRN Reason: Indigestion Stop: 11/04/20 14:02 Last Admin: 10/06/20 13:53 Dose: 1,500 mg Documented by: Dextrose (Dextrose 50% 50 Ml Syringe) 25 - 50 ml IV UD PRN; Protocol PRN Reason: Hypoglycemia Protocol Stop: 11/04/20 11:14 Last Admin: 10/06/20 00:22 Dose: 50 ml Documented by: Digoxin (Digoxin 0.125 Mg Tab) 0.125 mg PO [id number]@1600 RASHEL Stop: 11/05/20 15:59 Last Admin: 10/06/20 16:05 Dose: 0.125 mg Documented by: Fluticasone Propionate (Fluticasone Propionate Na Spr 16 Gm Btl) 2 sprays NA DAILY [facility] Stop: 11/04/20 17:59 Last Admin: 10/08/20 07:49 Dose: 2 sprays Documented by: Glucagon (Glucagon For Inj 1 Mg Vial) 1 mg IM UD PRN; Protocol PRN Reason: Hypoglycemia Protocol Stop: 11/04/20 11:14 Glucose (Glucose 40% Gel 15 Gm Tube) 15 - 30 gm PO UD PRN; Protocol PRN Reason: Hypoglycemia Protocol Stop: 11/04/20 11:14 Glucose (Glucose 10 Tabs/Tube) 4 - 8 tabs PO UD PRN; Protocol PRN Reason: Hypoglycemia Protocol Stop: 11/04/20 11:14 Guaifenesin (Guaifenesin 600 Mg Tabcr) 600 mg PO Q12H PRN PRN Reason: Congestion Stop: 11/04/20 17:19 Hydromorphone HCl (Hydromorphone Inj 0.5 Mg/0.5 Ml Syr) 0.25 mg IV Q3H PRN PRN Reason: Pain Stop: 10/19/20 08:30 Promethazine HCl 12.5 mg/ (Sodium Chloride) 50.5 mls @ 202 mls/hr IV Q6H PRN PRN Reason: Nausea And Vomiting Stop: 11/04/20 17:19 Insulin Aspart (Insulin Aspart 100 Units/Ml 3 Ml Pen) 0 units SC ACHS [facility] Stop: 11/05/20 07:44 Last Admin: 10/08/20 07:50 Dose: 5 units Documented by: Insulin Glargine (Insulin Glargine Solostar 100 Units/Ml 3 Ml Pen) 17 units SC DAILY [facility] Stop: 11/07/20 08:59 Last Admin: 10/08/20 07:49 Dose: 17 units Documented by: Ipratropium [place] (Ipratropium [place] Neb Soln 0.02% 2.5 Ml Vial) 0.5 mg INH Q4H PRN PRN Reason: SOB WHEEZE Stop: 11/04/20 17:19 Levalbuterol HCl (Levalbuterol 1.25mg/0.5ml Neb) 1.25 mg INH Q4H PRN PRN Reason: SOB WHEEZE Stop: 11/04/20 17:19 Loratadine (Loratadine 10 Mg Tab) 10 mg PO DAILY PRN PRN Reason: Allergy Symptoms Stop: 11/04/20 17:27 Metoprolol Tartrate (Metoprolol Tartrate 25 Mg Tab) 25 mg PO BID [facility] Stop: 11/04/20 17:29 Last Admin: 10/08/20 07:47 Dose: 25 mg Documented by: Miscellaneous (Carbohydrates For Hypoglycemia ) 15 - 30 gm PO UD PRN PRN Reason: Hypoglycemia Treatment Stop: 11/04/20 11:14 Miscellaneous Information (Pharmacy Glycemic Mgmt Consult) 1 ea N/A UD PRN PRN Reason: Consult Stop: 11/04/20 09:39 Naloxone HCl (Naloxone Hcl 0.4 Mg/1 Ml Vial/Carp) 0.1 mg IV UD PRN PRN Reason: Opioid Overdose Stop: 11/04/20 19:04 Nitroglycerin (Nitroglycerin Sl 0.4 Mg/Tab Tab) 0.4 mg SL UD PRN PRN Reason: Chest Pain Stop: 11/04/20 17:19 Oxycodone HCl (Oxycodone Hcl Ir 5 Mg Tab (Immediate Release)) 5 - 10 mg PO QID PRN PRN Reason: Pain Stop: 10/19/20 07:43 Last Admin: 10/06/20 14:26 Dose: 5 mg Documented by: Simvastatin (Simvastatin 20 Mg Tab) 20 mg PO QDD RAS[facility] Stop: 11/04/20 17:29 Last Admin: 10/07/20 17:11 Dose: 20 mg Documented by: Tamsulosin HCl (Tamsulosin Hcl 0.4 Mg Cap) 0.4 mg PO HS [facility] Stop: 11/04/20 20:59 Last Admin: 10/07/20 20:52 Dose: 0.4 mg Documented by: (1) COPD (chronic obstructive pulmonary disease) COPD type: unspecified COPD Qualified Code(s): J44.9 - Chronic obstructive pulmonary disease, unspecified
--- NOTE | 2020-10-08 11:27 | Pharmacy Report ---
Pharmacy Glycemic Short Note 2 - Date of Service October 08, 2020 - Glycemic Short BSG Results (Last 24 hours): 10/07/20 10/07/20 10/07/20 11:24 16:25 20:27 Glucose POC Glucose 180 H 237 H 229 H 10/08/20 10/08/20 10/08/20 06:34 07:12 11:22 Glucose 183 H POC Glucose 201 H 242 H OUTPATIENT ANTIDIABETIC REGIMEN: * Lantus 22 units AM, Novolog 3-4x per day per SSI * A1c 9.1% 09/19/20 ASSESSMENT: 10/08 * Patient received total of 33 units of insulin yesterday, of which 15 units were basal insulin * Appears PO intake improving. Fasting BSG trending up at 183 mg/dL - plan to titrate basal slightly this AM ~10% * Continue same CF/CR for now 10/07 * Patient received total of 23 units of insulin yesterday, of which 15 units were basal insulin * BSG check this AM 168, however drawn after patient eating. Of note, only had 6 gm CHO * Plan to continue same CF/CR for now 10/06 * Patient received total of 34 units of insulin yesterday, of which 20 units were basal insulin * BSGs low overnight - given amp D50 per hypoglycemia protocol. Patient NPO yesterday, started on diet this AM * PO intake remains poor this AM - did scale back on basal insulin this AM as unclear if lower BSG overnight related to basal? * BSGs tend to fluctuate, will monitor closely 10/05 * Mr. RO has a past medical history including type 1 diabetes, afib, ckd, COPD. Admitted with hip pain with dislocation of left hip arthroplasty to be evaluated by ortho. * BSGs significantly elevated on admission, 415/406 mg/dL. Potassium is 3.6 so will avoid IV bolus of insulin for now, will utilize novolog q4H. If significantly elevated with next check may need to start insulin infusion, in which case potassium will need ordered. * Patient received 20 units of lantus this AM. PLAN FOR INPATIENT GLYCEMIC CONTROL: * Hold outpatient oral diabetes medications * Basal insulin - increase * Lantus 17 units daily * Bolus insulin * NovoLog per scale ACHS or Q6hrs while NPO * Goal Range: Low 110 mg/dL - High 140 mg/dL * Correction Factor: 35 mg/dL/unit * Nutritional / Prandial insulin per carb ratio of 1 unit per 12 grams CHO consumed DISCHARGE PLAN: * A1c 9.1% - reasonable goal for patient is ~8%. A1c has improved since 03/2020 from 10.8% * Would recommend continuation of outpatient regimen as long as patient is not reporting frequent hypoglycemia * Would encourage continued DM self management (SMBG, diet, exercise, etc)
[2020-10-08] MEDS ORDERED: ENOXAPARIN 100 MG/1ML SYR SQ ONE (13:26)
[2020-10-08] MEDS: SIMVASTATIN 20 MG TAB PO SCH (15:47)
[2020-10-08] MEDS: DIGOXIN 0.125 MG TAB PO SCH (15:47)
[2020-10-08] MEDS ORDERED: WARFARIN SOD 2.5 MG TAB PO SCH (16:00)
--- NOTE | 2020-10-09 08:57 | Discharge Summary ---
Date of Service October 09, 2020 Admission HPI Per Admitting Provider History obtained from patient and records. 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 Recent confinement September 18-2020 for left hip fracture status post surgery. Patient evaluated by Cardiology and Pulmonology prior to surgery. Patient subsequently discharged home. Last 2 days, patient noted increased dizziness on standing up and blood pressure being low at home. Systolic 100s the last 2 days. Patient is feeling woozy, weak. Denies headache. Denies abdominal pain/black/bloody stools. Pain tolerable as per patient. PCP recommended decreasing metoprolol dose from 50 to 25 mg twice daily and to hold torsemide diuretic. Visiting nurse to recheck patient after 2 days as per documentation. Patient was trying to push himself out of his recliner when his left leg slipped out causing him to slide. Patient noted excruciating pain on the left hip after hearing something pop. Patient had trouble getting up. Patient denies head trauma, LOC, chest pain, S OB. No unusual cough symptoms. Patient brought to the ER for evaluation. MEDICAL HISTORY: As above. SURGERIES: He has had a pacemaker placement, polypectomy, hernia surgery, prostate surgery, scalp surgery, hernia repair, left hip fracture surgery FAMILY HISTORY: Diabetes, heart disease. PERSONAL AND SOCIAL HISTORY: Past tobacco abuse. No chronic intake of alcohol beverages. 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 Admission Exam Per Admitting Provider Physical Exam: GENERAL: uncomfortable, no respiratory distress SKIN: Pallor , warm HEENT: Alopecia, pale palpebral conjunctivae, no ptosis, dry buccal mucosa, nasal cannula in place NECK : Supple, no tenderness CHEST : Decreased breath sounds, occasional expiratory wheezes , no tenderness HEART : Tachycardic, irregular, no obvious murmurs ABDOMEN: Some distention, nontender EXTREMITIES : Minimal LE swelling, dislocated left hip with tenderness, no other conspicuous deformities noted NEUROLOGIC : Coherent, no facial asymmetry, slightly hard of hearing, no other gross focality Principal Diagnosis Dislocation of left hip status post repositioned, atrial fibrillation with rapid ventricular rate, interstitial lung disease, COPD, hypertension, CKD Discharge Exam Constitutional well developed, well nourished, + ill appearing and + obese Eyes PERRL, conjunctivae normal, anicteric sclerae ENMT external ear and nose normal, oropharynx normal Neck trachea midline, no thyromegaly Respiratory + respiratory distress (Minimal respiratory distress at rest) Auscultation: + diminished lung sounds, + crackles (Occasional crackles at the bases) and + wheezes (Occasional wheezing bilaterally) Cardiovascular Rate/Rhythm: + irregularly irregular Heart Sounds: + murmur Extremities: + edema (Edema of the left leg mainly) Gastrointestinal (Abdomen) Inspection/Auscultation: abdomen not distended Percussion/Palpation: abdomen soft; abdomen nontender Lymphatic no cervical or axillary lymphadenopathy Discharge Data Allergies Allergy/AdvReac Type Severity Reaction Status Date / Time diltiazem Allergy Mild rash Verified 10/05/20 07:27 fluticasone furoate AdvReac Intermediate Joint Pain Verified 10/05/20 07:27 [From Breo Ellipta] vilanterol AdvReac Intermediate Joint Pain Verified 10/05/20 07:27 [From Breo Ellipta] aspirin AdvReac Mild GI symptoms Verified 10/05/20 07:27 lisinopril AdvReac Mild cough Verified 10/05/20 07:27 propoxyphene AdvReac Mild GI upset, Verified 10/05/20 07:27 diarrhea Consultations 10/05/20 06:39 ED Decision to Admit Stat 10/05/20 14:01 Consult Orthopedic Surgery Routine 10/05/20 17:20 Consult Orthopedic Surgery Routine Procedures Performed Operation Date: 10/05/20 10:05 Actual Procedures p Left Hip Closed Reduction(Left) - Alexey Valentine DO Ordered Studies 10/05/20 [place] hip LT 1V Routine 10/05/20 07:05 CT hip LT wo con Urgent Hospital Course (1) Hip dislocation, left: Recent admission to [facility] from September 18 to September 24 with left hip fracture He is status post repair of left hip and went to [facility] for rehab He signed out himself from rehab and went home. He was trying to push himself out of the recliner when his left leg slipped out and caused him to fall He dislocated his left hip Complains some pain in the left hip Appreciate Ortho input and recommendation The left hip has been repositioned and he is getting PT and OT evaluation Pain is reasonably controlled Awaiting to be transferred to [facility] for rehab He is medically stable to be transferred to [facility] when approved (2) Rapid atrial fibrillation: Has history of paroxysmal atrial fibrillation on Coumadin Admitted with rapid ventricular response We will continue his current medications Heart rate is still remains slightly elevated at 118 We will increase his beta-chiquita to 50mg twice daily with hold parameters Heart rate seems to be controlling Heart rate remains on the upper side at [id number] dose has been increased (3) Supratherapeutic INR: Admission INR was 3.6 and went up to more than 5 as of this morning No signs of bleeding and/or bruising We will hold his Coumadin and and monitor INR INR is 3.0 today We will recheck tomorrow and start Coumadin-we will restart his Coumadin from today (4) Interstitial lung disease: Has chronic respiratory failure secondary to COPD/bronchiectasis/interstitial lung disease He has been under care of Dr. Johansen as an outpatient His pulmonary status remains reasonably stable (5) COPD (chronic obstructive pulmonary disease): (6) HTN (hypertension): Blood pressure remains towards lower side of normal (7) CKD (chronic kidney disease) stage 3, GFR 30-59 ml/min: Remains stable DVT prophylaxis Has been on Coumadin and INR is supratherapeutic Awaiting acceptance from [facility] Total Time Total Time Spent Total Time Spent (In Minutes): 40 Minutes Total Time Includes: Examination of the Patient, Discharge Planning, Medication Reconciliation and Communication With Other Providers Discharge Plan Discharge Items Patient Disposition: Transfer Inpatient Rehab Fac Reason For Visit: HIP PAIN Discharge Diagnosis: Dislocation of left hip status post repositioned, atrial fibrillation with rapid ventricular rate, interstitial lung disease, COPD, hypertension, CKD Condition on Discharge: Fair Activity: As commented below Activity Comment: As per PT and OT recommendation Weightbearing: Left weightbearing Weightbearing Comment: as tolerated with abduction brace on at all times Non-emergency contact: Surgeon Call non-emergency contact if: your symptoms worsen and your pain is not controlled Follow-up/Referrals: Kg Monte MD [Primary Care Provider] - Diet: Carb Consistent or DM2, Heart Healthy and Low Sodium (2gm) Addtl Attending Provider Instructions: Please take extra precaution to avoid falls Start your Coumadin from today No change in your other medications Continue oxygen as before Keep appointments with your primary care physician and specialist Please have regular checkup on your INR and take Coumadin as advised [facility] DISCHARGE INSTRUCTIONS: HIP DISLOCATION You must wear your hip abduction brace at all times except when bathing or changing clothes. SELF CARE INSTRUCTIONS: A. You are to ambulate with a walker or crutches for approximately 6 weeks. B. You are WEIGHT BEARING TOLERATE on your operative lower extremity for at least 6 weeks. C. Wear low heeled shoes with non-slip soles D. Be sure that your floors are free of things that could trip you throw rugs, electrical cords, and small objects. Avoid wet and waxed floors, especially with crutches/walker/cane. E. Try to walk several times a day with rest periods between. F. You may shower 48 hours after surgery and get the incision area wet, but DO NOT soak or submerge incision area in water. (No baths, swimming pools, hot tubs) G. You may have a large, band-aid like dressing over your incision (Aquacel). This will remain on your incision for 7 days, and then can be removed. You CAN shower with this on. If incision is leaking through the dressing, please call the office . H. Do NOT apply soap or any ointment/lotions directly over incision. I. You may use ice as needed to operative site. J. Use KI or hip abduction brace at all times, may remove for hygiene purposes until cleared by your surgeon. SPECIAL CARE INSTRUCTIONS: VERY IMPORTANT TO READ AND REVIEW A. You may be at risk for phlebitis or blood clots. a. Wear surgical stockings (ALANA hose) for 2 weeks after surgery to improve circulation and reduce swelling. b. Take LOVENOX 40mg SQ daily for 4 weeks or as directed. This is your blood thinner. c. If you are on Coumadin- you will have daily/weekly blood work to monitor your levels. This will be done by either your family physician/parliamentary archivist (if you are on Coumadin chronically) versus your orthopedic surgeon. Expect a phone call the day of or the day after your blood work is drawn to adjust your dose accordingly. B. There are a few signs you need to watch for after you are home. Call [facility] at [phone] if you experience any of the following: a. If you have a temperature of 101 degrees or higher. b. Sudden increase in pain in your hip not relieved by rest or pain medication. c. Any fluid or drainage from the incision; redness of the incision. d. Shortness of breath or chest pain. B. Please call [facility] at [phone] if you have any questions or concerns about your operation or recovery. C. Call your physician if: a. Temperature is greater than 101 degrees (F). b. Pain is not relieved by prescribed pain medications. c. Increase drainage or redness from incision. d. Unanswered questions or concerns. D. Pain Medication: a. You will be prescribed pain medication upon discharge that should last till your first post-operative appointment. b. If you experience nausea and/or skin rash, discontinue this medication and contact our office for an alternative medication . c. Caution- narcotic pain medication can cause constipation. FOLLOW UP VISIT: Please call [facility] at [phone] to schedule a follow up appointment for 4 weeks. Pending Studies at Discharge: No Stand-Alone Forms: My [facility] [place] [facility] Skilled Items Patient informed of condition?: Yes DNR: No Discharge Level of Care: Skilled Communicable Disease: No Discharge Prognosis: Stable Lines: None Urinary Catheter: No Medications and DC Order Prescriptions: Continued digoxin 125 mcg (0.125 mg) tablet 125 mcg PO 3XWK RF: 0 levalbuterol HCl 1.25 mg/3 mL solution for nebulization 1.25 mg INHALATION Q4H PRN (Reason: Shortnes of breath) RF: 0 warfarin 2.5 mg tablet See Rx Instructions .ROUTE .COMPLEX RF: 0 metoprolol tartrate 50 mg Tablet 50 mg PO BID RF: 0 tamsulosin [Flomax] 0.4 mg Capsule 0.4 mg PO HS RF: 0 simvastatin [Zocor] 20 mg Tablet 20 mg PO QDD RF: 0 nitroglycerin [Nitrostat] 0.4 mg Tablet, Sublingual 0.4 mg Sublingual UD PRN (Reason: Chest Pain) RF: 0 insulin aspart U-100 [Novolog Flexpen U-100 Insulin] 100 unit/mL Insulin Pen See Rx Instructions .ROUTE .COMPLEX RF: 0 Flonase Sensimist 27.5 mcg/actuation [place],Suspension 2 spray Intranasal DAILY RF: 0 Lantus Solostar U-100 Insulin 100 unit/mL (3 mL) Insulin Pen 22 unit SUBCUT QAM RF: 0 Anoro Ellipta 62.5-25 mcg/actuation blister with device 1 inh inhalation QAM RF: 0 torsemide 20 mg tablet 10 mg PO QAM RF: 0 ipratropium bromide 0.02 % Solution 2.5 ml INHALATION QID PRN (Reason: Shortness Of Breath) RF: 0 loratadine 10 mg Capsule 10 mg PO DAILY PRN (Reason: Allergy Symptoms) RF: 0 guaifenesin 600 mg Tablet Extended Release 12hr 600 mg PO Q12H PRN (Reason: Congestion) RF: 0 Combivent Respimat 20-100 mcg/actuation mist 1 puff inhalation QID RF: 0 Discharge Orders: Discharge Order (Routine); Ordered 10/08/20 Ordered By: Vincent Kenyon Admission Data Admit Date/Time: 10/05/20 08:15 Attending Provider: Vincent Kenyon Admit Provider: Stewart Tristan Primary Care Provider: Kg Monte Other Providers: Kameron Jacobo ; Stewart Tristan ; Fly Marin ; Richard Bowden ; Dean Kirkland ; Elena Solis ; Stan Verdin ; Gladis Curiel ; Leobardo Eid ; Kg Lr Andrew J. ; Kameron Flores ; Shan Espinoza ; Bowen Coleman ; Mark Grant ; Jaime Gibson ; Gladis Holloway ; Alexey Valentine ; Ken Contreras ; Lizbeth Bella ; Matt Evangelista ; Hemalatha Turcios ; Devi Hawley [facility]
--- NOTE | 2020-10-11 09:43 | Emergency Department Note ---
Impression & Plan Hip dislocation, left ED Provider Note NAME: CHARISSA THAKUR AGE: 80 SEX: M : 1940 ARRIVES VIA: Ambulance INFORMANT: Patient, ED PROVIDER(S): Emanuel Beckett MD CHIEF COMPLAINT: left hip pain HPI: This is an 80-year-old male who presents the emergency department complaining of left hip pain. The patient reports he was helping his transfer himself out of a chair when he pressed down on his left leg. This caused immediate pain to his left hip area. 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 Patient rates the pain as a burning sensation made worse with movement. The patient reports he is unable to move his left leg. He has good range of motion of the knee as well as the ankle. He has not been able to walk on the leg since this incident. He was brought in by EMS. He has not taken anything for the pain. He reports nothing makes the pain better. ROS: See above HPI for pertinent positives & negatives. A total of 10 systems reviewed and were otherwise negative. PAST MEDICAL HISTORY: See Below PAST SURGICAL HISTORY: See Below FAMILY HISTORY: See Below SOCIAL HISTORY: See Below HOME MEDICATIONS: See Below ALLERGIES: See Below VITALS: See Below PHYSICAL EXAMINATION: VITAL SIGNS - Vital signs and nursing notes were reviewed. GENERAL - 80-year-old male appearing stated age who is in moderate distress. Communicates well with provider and answers questions appropriately. SKIN - Without rashes. HEAD - NC/AT. EYES - PERRL with EOMI bilaterally. Sclera anicteric. Palpebral conjunctiva pink and moist with no injection noted. EARS - No deformities of external structures noted on gross examination bilaterally. NOSE - Midline and without cyanosis. No epistaxis or purulent drainage noted. Septum midline without deviation or septal hematoma noted. MOUTH/OROPHARYNX - Without perioral cyanosis. Buccal mucosa pink and moist and without leukoplakia. Tongue midline with equal elevation of palate bilaterally. No tonsillar hypertrophy, erythema, or exudates noted. NECK - Neck with FROM. Supple to palpation. No nuchal rigidity. LUNGS - Chest wall symmetric without accessory muscle use, intercostals retractions, or central cyanosis. Normal vesicular breath sounds CTA B/L. No wheezes, rales, or rhonchi appreciated. CARDIAC - RRR with S1/S2. No murmur, rubs, or gallops appreciated. ABDOMEN - Abdominal contour without pulsations or visible masses. BS normoactive all four quadrants. No tenderness, palpable masses, hepatosplenomega ly, or ascites noted. EXTREMITIES - pt obvious shortening of left leg, distal pulses intact NEUROLOGIC - Cranial nerves II through XII grossly intact. Sensory intact to light touch throughout. Patellar reflexes +2/4. PSYCH - A&Ox3 and cooperates fully with examiner. Pt is very pleasant and interacts well with examiner. MEDICAL DECISION MAKING: Patient was seen and evaluated as above in room C3. Review was performed of nursing notes and vital signs. I did review pertinent previous visits and patient history. After obtaining a thorough history and physical examination the above work up was performed. This is an 80-year-old male who presents emergency department with an obvious deformity to his left leg. Using shared medical decision making patient was sent for x-rays. This is concerning for left hip dislocation from the arthrocentesis itself. In addition the patient only has a hemoglobin of 7.8. For this reason he was typed and screened and typed and crossed for 1 unit of p acked red blood cells. I did discuss the case with the orthopedic surgeon on- call who requested the patient be admitted to the hospitalist service. An order was placed for continuous cardiac monitoring. The monitor shows a rate of 111 with Normal Sinus rhythm. The patient was evaluated during a period of high volume and high acuity during the global COVID-19 pandemic, and that diagnosis was suspected/considered upon their initial presentation. Their evaluation, treatment and testing was c onsistent with current guidelines for patients who present with complaints or symptoms that may be related to COVID-19. Patient was seen while provider was wearing PPE. Triage Nursing notes reviewed. Prior medical records reviewed Vital Signs: reviewed and remarkable for no significant abnormalities Differential diagnosis: Fracture, subluxation, dislocation, contusion, ligamentous injury, neurovascular, compartment syndrome, rhabdomyolysis, as well as other pathologies. ER treatment provided: See below Diagnostics interpreted by me: ECG: A. fib with RVR incomplete right bundle branch block left anterior fascicular block no ST elevation or depression QTC is 475 ventricular rate is 105. EKG is compared to 09/18/2020 no significant change. Laboratory studies: As stated above and show below. Imaging studies: See below Consultation(s): ortho surgery, internal medicine Critical Care: I have personally spent greater than 30 minutes of critical care time in the di rect management of this patient. This includes bedside care, interpretation of diagnostic studies, and testing, discussion with consultants, patient, and family members, and other required patient management activities. This 30 minutes is in excess of all separately billable procedures. 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)/last check 06/09/19 Palliative care encounter Pulmonary embolism remote hx Skin cancer left elbow region Weakness Surgical History H/O basal cell carcinoma excision REMOVED FROM NOSE H/O hand surgery LEFT MIDDLE FINGER FX REPAIR H/O inguinal hernia repair H/O nasal polypectomy History of bronchoscopy History of cataract surgery RT/LEFT History of colonoscopy History of inguinal hernia repair History of lung biopsy robotic thoracoscopy, pleural biopsy: 08/09/16: Grade view 1, MAC#3 at [facility] History of surgery of head "correct skull abnormality- left temporoparietal ; 1992" History of tooth extraction Status post placement of cardiac pacemaker Family History Brother Diabetes Son Diabetes Family hx of colon cancer Other Heart disease Social History Smoking Status: Former smoker Second Hand Exposure: No; Hx Alcohol Use: Yes Alcohol type: beer Hx Substance Use: Yes Preferred Language: Kyrgyz Communication Ability: Effective Visual Impairment: No Limitations Conformal Pad Former Required: No Beliefs That Will Affect Care: None marital status: Current Living Situation: [facility] Current Living Situation Comment: at home Feels Safe at Home: Yes Safety Concerns: Feels Safe At This Time Assistive Devices: Denture - Upper, Denture - Lower and Oxygen - Continuous Allergies Allergies Allergy/AdvReac Type Severity Reaction Status Date / Time diltiazem Allergy Mild rash Verified 10/05/20 07:27 fluticasone furoate AdvReac Intermediate Joint Pain Verified 10/05/20 07:27 [From Breo Ellipta] vilanterol AdvReac Intermediate Joint Pain Verified 10/05/20 07:27 [From Breo Ellipta] aspirin AdvReac Mild GI symptoms Verified 10/05/20 07:27 lisinopril AdvReac Mild cough Verified 10/05/20 07:27 propoxyphene AdvReac Mild GI upset, Verified 10/05/20 07:27 diarrhea Home Meds Home Medications Medication Instructions Recorded Confirmed Flonase Sensimist 2 spray INTRANASAL DAILY 07/03/18 10/10/20 Lantus Solostar U-100 Insulin 22 unit SUBCUT QAM 07/03/18 10/10/20 insulin aspart U-100 [Novolog See Rx Instructions .ROUTE .COMPLEX 07/03/18 10/10/20 Flexpen U-100 Insulin] nitroglycerin [Nitrostat] 0.4 mg SUBLINGUAL UD PRN 07/03/18 10/10/20 simvastatin [Zocor] 20 mg PO QDD 07/03/18 10/10/20 tamsulosin [Flomax] 0.4 mg PO HS 07/03/18 10/10/20 levalbuterol HCl 1.25 mg INHALATION Q4H PRN 04/20/20 10/10/20 metoprolol tartrate 50 mg PO BID 04/20/20 10/10/20 warfarin See Rx Instructions .ROUTE .COMPLEX 04/20/20 10/10/20 digoxin 125 mcg (0.125 mg) tablet 125 mcg PO 3XWK tab 07/12/20 10/10/20 Anoro Ellipta 1 inh INHALATION QAM 08/13/20 10/10/20 ipratropium bromide 2.5 ml INHALATION QID PRN 09/09/20 10/10/20 torsemide 10 mg PO QAM 09/09/20 10/10/20 Combivent Respimat 1 puff INHALATION QID 10/05/20 10/10/20 guaifenesin 600 mg PO Q12H PRN 10/05/20 10/10/20 loratadine 10 mg PO DAILY PRN 10/05/20 10/10/20 Results & Data (ED) Home Medications Current Medication List: was personally reviewed by me Laboratory Data Attestation: I reviewed the patient's lab results. Result diagrams: 10/08/20 06:34 10/08/20 06:34 Lab Results 10/05/20 10/05/20 10/05/20 Range/Units 05:09 05:09 05:09 WBC 6.34 (4.8-10.8) K/uL RBC 3.10 L (4.7-6.1) M/uL Hgb 7.8 L (14.0-18.0) g/dL Hct 26.7 L (42-52) % MCV 86.1 (80-100) fL MCH 25.2 (25-34) pg MCHC 29.2 L (32-36) g/dL RDW Std Deviation 53.8 H (36.4-46.3) fL RDW Coeff of Samira 17.1 H (11.5-14.5) % Plt Count 325 (130-400) K/uL MPV 9.3 (7.4-10.4) fL Immature Gran % (Auto) 0.3 % Neut % (Auto) 74.2 % Lymph % (Auto) 18.0 % Glades % (Auto) 7.3 % Eos % (Auto) 0.2 % Baso % (Auto) 0.0 % Neut # (Auto) 4.71 (1.4-6.5) K/uL Lymph # (Auto) 1.14 L (1.2-3.4) K/uL Glades # (Auto) 0.46 (0.11-0.59) K/uL Eos # (Auto) 0.01 (0-0.5) K/uL Baso # (Auto) 0.00 (0-0.2) K/uL Immature Gran # (Auto) 0.02 (0.00-0.02) K/uL Polychromasia 1+ PT 33.3 H (9.0-12.0) Seconds INR 3.6 H (0.9-1.1) APTT 39.6 H (21.0-31.0) Seconds PTT Ratio 1.5 Sodium 138 (136-145) mmol/L Potassium 3.6 (3.5-5.1) mmol/L Chloride 100 (98-107) mmol/L Carbon Dioxide 29 (21-32) mmol/L Anion Gap 9.0 (3-11) BUN 48 H (7-18) mg/dl Creatinine 1.64 H (0.6-1.4) mg/dl Est Cr Clr Drug Dosing 38.1 ml/min Est GFR ( Amer) 44.5 ml/min Est GFR (Non-Af Amer) 38.4 ml/min BUN/Creatinine Ratio 29.0 H (10-20) Glucose 394 H* (70-99) mg/dl Calcium 8.3 L (8.5-10.1) mg/dl Magnesium (1.8-2.4) mg/dl Total Bilirubin 0.6 (0.2-1) mg/dl AST 12 L (15-37) U/L ALT 21 (12-78) U/L Alkaline Phosphatase 156 H (45-117) U/L Total Protein 5.3 L (6.4-8.2) gm/dl Albumin 1.9 L (3.4-5.0) gm/dl Globulin 3.4 (2.5-4.0) gm/dl Albumin/Globulin Ratio 0.6 L (0.9-2) Beta-Hydroxybutyric Acd 1.47 (0.2-2.81) mg/dl TSH (0.300-4.500) uIu/ml Specimen Hemolysis Urine Color Urine Appearance (Clear) Urine pH (4.5-7.5) Ur Specific [place] (1.000-1.030) Urine Protein (Negative) Urine Glucose (UA) (Negative) Urine Ketones (Negative) Urine Blood (Negative) Urine Nitrite (Negative) Urine Bilirubin (Negative) Urine Urobilinogen (Negative) Ur Leukocyte Esterase (Negative) Digoxin (0.8-2.0) ng/ml COVID-19 Eval Order SARS-CoV-2 (PCR) (Negative) Blood Type Antibody Screen Crossmatch 10/05/20 10/05/20 10/05/20 Range/Units 05:10 05:10 05:10 WBC (4.8-10.8) K/uL RBC (4.7-6.1) M/uL Hgb (14.0-18.0) g/dL Hct (42-52) % MCV (80-100) fL MCH (25-34) pg MCHC (32-36) g/dL RDW Std Deviation (36.4-46.3) fL RDW Coeff of Samira (11.5-14.5) % Plt Count (130-400) K/uL MPV (7.4-10.4) fL Immature Gran % (Auto) % Neut % (Auto) % Lymph % (Auto) % Glades % (Auto) % Eos % (Auto) % Baso % (Auto) % Neut # (Auto) (1.4-6.5) K/uL Lymph # (Auto) (1.2-3.4) K/uL Glades # (Auto) (0.11-0.59) K/uL Eos # (Auto) (0-0.5) K/uL Baso # (Auto) (0-0.2) K/uL Immature Gran # (Auto) (0.00-0.02) K/uL Polychromasia PT (9.0-12.0) Seconds INR (0.9-1.1) APTT (21.0-31.0) Seconds PTT Ratio Sodium (136-145) mmol/L Potassium (3.5-5.1) mmol/L Chloride (98-107) mmol/L Carbon Dioxide (21-32) mmol/L Anion Gap (3-11) BUN (7-18) mg/dl Creatinine (0.6-1.4) mg/dl Est Cr Clr Drug Dosing ml/min Est GFR ( Amer) ml/min Est GFR (Non-Af Amer) ml/min BUN/Creatinine Ratio (10-20) Glucose (70-99) mg/dl Calcium (8.5-10.1) mg/dl Magnesium (1.8-2.4) mg/dl Total Bilirubin (0.2-1) mg/dl AST (15-37) U/L ALT (12-78) U/L Alkaline Phosphatase (45-117) U/L Total Protein (6.4-8.2) gm/dl Albumin (3.4-5.0) gm/dl Globulin (2.5-4.0) gm/dl Albumin/Globulin Ratio (0.9-2) Beta-Hydroxybutyric Acd (0.2-2.81) mg/dl TSH (0.300-4.500) uIu/ml Specimen Hemolysis Urine Color Yellow Urine Appearance Clear (Clear) Urine pH 6.0 (4.5-7.5) Ur Specific [place] 1.016 (1.000-1.030) Urine Protein Negative (Negative) Urine Glucose (UA) 3+ H (Negative) Urine Ketones Negative (Negative) Urine Blood Negative (Negative) Urine Nitrite Negative (Negative) Urine Bilirubin Negative (Negative) Urine Urobilinogen Negative (Negative) Ur Leukocyte Esterase Negative (Negative) Digoxin (0.8-2.0) ng/ml COVID-19 Eval Order Covid19 at [facility] SARS-CoV-2 (PCR) NEGATIVE (Negative) Blood Type Antibody Screen Crossmatch 10/05/20 10/05/20 10/05/20 Range/Units 08:03 08:03 08:03 WBC (4.8-10.8) K/uL RBC (4.7-6.1) M/uL Hgb (14.0-18.0) g/dL Hct (42-52) % MCV (80-100) fL MCH (25-34) pg MCHC (32-36) g/dL RDW Std Deviation (36.4-46.3) fL RDW Coeff of Samira (11.5-14.5) % Plt Count (130-400) K/uL MPV (7.4-10.4) fL Immature Gran % (Auto) % Neut % (Auto) % Lymph % (Auto) % Glades % (Auto) % Eos % (Auto) % Baso % (Auto) % Neut # (Auto) (1.4-6.5) K/uL Lymph # (Auto) (1.2-3.4) K/uL Glades # (Auto) (0.11-0.59) K/uL Eos # (Auto) (0-0.5) K/uL Baso # (Auto) (0-0.2) K/uL Immature Gran # (Auto) (0.00-0.02) K/uL Polychromasia PT (9.0-12.0) Seconds INR (0.9-1.1) APTT (21.0-31.0) Seconds PTT Ratio Sodium (136-145) mmol/L Potassium (3.5-5.1) mmol/L Chloride (98-107) mmol/L Carbon Dioxide (21-32) mmol/L Anion Gap (3-11) BUN (7-18) mg/dl Creatinine (0.6-1.4) mg/dl Est Cr Clr Drug Dosing ml/min Est GFR ( Amer) ml/min Est GFR (Non-Af Amer) ml/min BUN/Creatinine Ratio (10-20) Glucose (70-99) mg/dl Calcium (8.5-10.1) mg/dl Magnesium 1.8 (1.8-2.4) mg/dl Total Bilirubin (0.2-1) mg/dl AST (15-37) U/L ALT (12-78) U/L Alkaline Phosphatase (45-117) U/L Total Protein (6.4-8.2) gm/dl Albumin (3.4-5.0) gm/dl Globulin (2.5-4.0) gm/dl Albumin/Globulin Ratio (0.9-2) Beta-Hydroxybutyric Acd (0.2-2.81) mg/dl TSH 2.150 (0.300-4.500) uIu/ml Specimen Hemolysis Urine Color Urine Appearance (Clear) Urine pH (4.5-7.5) Ur Specific [place] (1.000-1.030) Urine Protein (Negative) Urine Glucose (UA) (Negative) Urine Ketones (Negative) Urine Blood (Negative) Urine Nitrite (Negative) Urine Bilirubin (Negative) Urine Urobilinogen (Negative) Ur Leukocyte Esterase (Negative) Digoxin 0.7 L (0.8-2.0) ng/ml COVID-19 Eval Order SARS-CoV-2 (PCR) (Negative) Blood Type O Positive Antibody Screen NEGATIVE Crossmatch See Detail Administered Medications Discontinued Medications Calcium Carbonate (Calcium Carbonate 500 Mg Chewable Tab) 1,500 mg PO BID PRN PRN Reason: Indigestion Stop: 11/04/20 14:02 Last Admin: 10/06/20 13:53 Dose: 1,500 mg Documented by: [id number] Admin: 10/05/20 14:11 Dose: 1,500 mg Documented by: [id number] Calcium Carbonate (Calcium Carbonate 500 Mg Chewable Tab) Confirm Administered Dose 1,500 mg .ROUTE .STK-MED ONE Stop: 10/05/20 14:10 Last Admin: 10/05/20 14:12 Dose: Not Given Documented by: [id number] Dextrose (Dextrose 50% 50 Ml Syringe) 25 - 50 ml IV UD PRN; Protocol PRN Reason: Hypoglycemia Protocol Stop: 11/04/20 11:14 Last Admin: 10/06/20 00:22 Dose: 50 ml Documented by: [id number] Digoxin (Digoxin 0.125 Mg Tab) 0.125 mg PO [id number] [facility] Stop: 11/05/20 15:59 Last Admin: 10/08/20 15:47 Dose: 0.125 mg Documented by: [id number] Admin: 10/06/20 16:05 Dose: 0.125 mg Documented by: [id number] Enoxaparin Sodium (Enoxaparin 100 Mg/1ml Syr) 100 mg SQ NOW ONE Stop: 10/08/20 13:27 Last Admin: 10/08/20 13:50 Dose: 100 mg Documented by: [id number] Fluticasone Propionate (Fluticasone Propionate Na Spr 16 Gm Btl) 2 sprays NA DAILY [facility] Stop: 11/04/20 17:59 Last Admin: 10/08/20 07:49 Dose: 2 sprays Documented by: [id number] Admin: 10/07/20 08:50 Dose: 2 sprays Documented by: [id number] Admin: 10/06/20 08:19 Dose: 2 sprays Documented by: [id number] Admin: 10/05/20 20:19 Dose: 2 sprays Documented by: [id number] Hydromorphone HCl (Hydromorphone Inj 0.5 Mg/0.5 Ml Syr) 0.25 mg IV Q20M PRN PRN Reason: Moderate Pain (Rating 3,4,5,6) Stop: 10/19/20 05:06 Last Admin: 10/05/20 05:36 Dose: 0.25 mg Documented by: [id number] Potassium Chloride 40 meq/ (Sodium Chloride) 1,020 mls @ 50 mls/hr IV .[id number] [facility] Stop: 11/04/20 17:59 Last Infusion: 10/06/20 11:17 Dose: 0 mls/hr Documented by: [id number] Admin: 10/05/20 20:16 Dose: 50 mls/hr Documented by: [id number] Insulin Aspart (Insulin Aspart 100 Units/Ml 3 Ml Pen) 0 units SC Q4 RASHEL Stop: 11/04/20 15:59 Last Admin: 10/06/20 05:09 Dose: Not Given Documented by: [id number] Cosigned by: [id number] Admin: 10/06/20 00:31 Dose: Not Given Documented by: [id number] Cosigned by: [id number] Admin: 10/05/20 20:18 Dose: Not Given Documented by: [id number] Cosigned by: [id number] Admin: 10/05/20 18:11 Dose: Not Given Documented by: [id number] Insulin Aspart (Insulin Aspart 100 Units/Ml 3 Ml Pen) 0 units SC NOW STA Stop: 10/05/20 13:23 Last Admin: 10/05/20 14:20 Dose: 14 units Documented by: [id number] Cosigned by: [id number] Insulin Aspart (Insulin Aspart 100 Units/Ml 3 Ml Pen) 0 units SC ACHS [facility] Stop: 11/05/20 07:44 Last Admin: 10/08/20 12:35 Dose: 11 units Documented by: [id number] Cosigned by: [id number] Admin: 10/08/20 07:50 Dose: 5 units Documented by: [id number] Cosigned by: [id number] Admin: 10/07/20 21:12 Dose: 3 units Documented by: [id number] Cosigned by: [id number] Admin: 10/07/20 17:09 Dose: 8 units Documented by: [id number] Cosigned by: [id number] Admin: 10/07/20 12:10 Dose: 7 units Documented by: [id number] Cosigned by: [id number] Admin: 10/07/20 08:54 Dose: Not Given Documented by: [id number] Admin: 10/06/20 20:55 Dose: Not Given Documented by: [id number] Admin: 10/06/20 17:06 Dose: 5 units Documented by: [id number] Cosigned by: [id number] Admin: 10/06/20 11:52 Dose: 2 units Documented by: [id number] Cosigned by: [id number] Admin: 10/06/20 08:19 Dose: 1 units Documented by: [id number] Cosigned by: [id number] Insulin Aspart (Insulin Aspart 100 Units/Ml 3 Ml Pen) 0 units SC 0000 RASHEL Stop: 10/07/20 00:01 Last Admin: 10/06/20 23:50 Dose: Not Given Documented by: [id number] Insulin Glargine (Insulin Glargine Solostar 100 Units/Ml 3 Ml Pen) 20 units SC NOW STA Stop: 10/05/20 07:50 Last Admin: 10/05/20 09:56 Dose: 20 units Documented by: [id number] Cosigned by: [id number] Insulin Glargine (Insulin Glargine Solostar 100 Units/Ml 3 Ml Pen) 15 units SC DAILY [facility] Stop: 11/05/20 08:59 Last Admin: 10/07/20 08:51 Dose: 15 units Documented by: [id number] Cosigned by: [id number] Admin: 10/06/20 09:55 Dose: 15 units Documented by: [id number] Cosigned by: [id number] Insulin Glargine (Insulin Glargine Solostar 100 Units/Ml 3 Ml Pen) 0 units SC [facility]; Protocol Stop: 11/05/20 20:59 Last Admin: 10/06/20 20:55 Dose: Not Given Documented by: [id number] Insulin Glargine (Insulin Glargine Solostar 100 Units/Ml 3 Ml Pen) 17 units SC DAILY [facility] Stop: 11/07/20 08:59 Last Admin: 10/08/20 07:49 Dose: 17 units Documented by: [id number] Cosigned by: [id number] Ipratropium [place] (Ipratropium [place] Neb Soln 0.02% 2.5 Ml Vial) 0.5 mg INH NOW STA Stop: 10/05/20 08:07 Last Admin: 10/05/20 09:10 Dose: 0.5 mg Documented by: [id number] Levalbuterol HCl (Levalbuterol 1.25mg/0.5ml Neb) 1.25 mg INH NOW STA Stop: 10/05/20 08:07 Last Admin: 10/05/20 09:10 Dose: 1.25 mg Documented by: [id number] Metoprolol Tartrate (Metoprolol Tartrate 25 Mg Tab) 25 mg PO NOW STA Stop: 10/05/20 07:07 Last Admin: 10/05/20 08:15 Dose: 25 mg Documented by: [id number] Metoprolol Tartrate (Metoprolol Tartrate 25 Mg Tab) 25 mg PO BID [facility] Stop: 11/04/20 17:29 Last Admin: 10/08/20 07:47 Dose: 25 mg Documented by: [id number] Admin: 10/07/20 20:52 Dose: 25 mg Documented by: [id number] Admin: 10/07/20 08:49 Dose: 25 mg Documented by: [id number] Admin: 10/06/20 20:12 Dose: 25 mg Documented by: [id number] Admin: 10/06/20 08:19 Dose: 25 mg Documented by: [id number] Admin: 10/05/20 20:17 Dose: 25 mg Documented by: [id number] Oxycodone HCl (Oxycodone Hcl Ir 5 Mg Tab (Immediate Release)) 5 - 10 mg PO QID PRN PRN Reason: Pain Stop: 10/19/20 07:43 Last Admin: 10/06/20 14:26 Dose: 5 mg Documented by: [id number] Admin: 10/06/20 08:53 Dose: 5 mg Documented by: [id number] Potassium Chloride (Potassium Chloride Crtab 20 Meq Tabcr) 40 meq PO NOW STA Stop: 10/05/20 08:28 Last Admin: 10/05/20 09:04 Dose: 40 meq Documented by: [id number] Simvastatin (Simvastatin 20 Mg Tab) 20 mg PO QDD RASHEL Stop: 11/04/20 17:29 Last Admin: 10/08/20 15:47 Dose: 20 mg Documented by: [id number] Admin: 10/07/20 17:11 Dose: 20 mg Documented by: [id number] Admin: 10/06/20 17:04 Dose: 20 mg Documented by: [id number] Admin: 10/05/20 20:18 Dose: 20 mg Documented by: [id number] Tamsulosin HCl (Tamsulosin Hcl 0.4 Mg Cap) 0.4 mg PO [facility] Stop: 11/04/20 20:59 Last Admin: 10/07/20 20:52 Dose: 0.4 mg Documented by: [id number] Admin: 10/06/20 20:12 Dose: 0.4 mg Documented by: [id number] Admin: 10/05/20 20:18 Dose: 0.4 mg Documented by: [id number] Warfarin Sodium (Warfarin Sod 2.5 Mg Tab) 1.25 mg PO [id number] [facility] Stop: 11/07/20 15:59 Last Admin: 10/08/20 15:47 Dose: 1.25 mg Documented by: [id number] Imaging Data Radiologist's Impression: Hip X-Ray 10/05/20 00:00 FL hip LT 1V CLINICAL HISTORY: CLOSED REDUCTION LT HIP COMPARISON STUDY: CT left hip 10/05/2020. FLUOROSCOPY TIME: 10 seconds. FINDINGS: 3 fluoroscopic spot images of the left hip demonstrate a left hip hemiarthroplasty. No fracture or dislocation. The hardware appears intact. IMPRESSION: Fluoroscopy provided for closed reduction of a left hip arthroplasty dislocation. Alignment is anatomic. ACT 112: Negative or not required by law. Electronically signed by: Cali Sams M.D. 10/05/2020 7:06 PM Pelvis X-Ray 10/05/20 05:07 XR pelvis 1-2V routine CLINICAL HISTORY: Left hip pain. COMPARISON: 09/20/2020 DISCUSSION: There is a superiorly dislocated bipolar left hip arthroplasty. There is a subtle lucency within the proximal femur. While this may represent a projectional artifact a subtle proximal periprosthetic fracture cannot be excluded IMPRESSION: 1. Dislocated left hip arthroplasty 2. Artifact versus subtle proximal periprosthetic fracture ACT 112: Negative or not required by law. Electronically signed by: Bruno Lisa M.D. 10/05/2020 7:12 AM Chest X-Ray 10/05/20 07:04 XR chest 1V portable CLINICAL HISTORY: wheeze COMPARISON STUDY: Chest CT October 09, 2019. Chest radiograph September 18, 2020. FINDINGS: Dual lead left subclavian pacemaker is in place. Cardiomegaly is unchanged. Left basilar retrocardiac opacity is noted. There is mild right basilar opacity. Calcified pleural plaques are noted. There is no pneumothorax. Trace right pleural effusion is present. There is no evidence for pulmonary edema. IMPRESSION: 1. Left basilar opacity which may reflect pneumonia. Atelectasis could appear similar although is considered less likely. Radiographic follow-up is recommended. 2. Trace right pleural effusion. ACT 112: Negative or not required by law. Electronically signed by: Akshat Calderon M.D. 10/05/2020 8:[address] 10/05/20 07:05 CT hip LT wo con CT DOSE: 891.52 mGy.cm CLINICAL HISTORY: Left hip pain. Recent hip arthroplasty. TECHNIQUE: Helical images were acquired in the transverse plane. Sagittal and coronal reformatted images were acquired. A dose lowering technique was utilized adhering to the principles of ALARA. COMPARISON STUDY: X-ray study dated 10/05/2020 FINDINGS: There are lateral skin heber. There is left-sided cutaneous and subcutaneous edema, likely postsurgical. There are superior and posterior lateral dislocation of a bipolar left hip arthroplasty. There is a joint effusion. There is artifact from the prosthesis. No fractures are visualized. There is trace periprostatic soft tissue gas is likely postsurgical. IMPRESSION: 1. Superior and 1posterior lateral dislocation of a bipolar left hip arthroplasty 2. Joint effusion 3. Cutaneous and subcutaneous edema likely postsurgical 4. No acute fractures identified ACT 112: Negative or not required by law. Electronically signed by: Bruno Lisa M.D. 10/05/2020 7:51 AM Discharge Plan Visit Data Chief Complaint: Hip Pain Stated Complaint: HIP PAIN ED Provider: Emanuel Beckett Discharge Problem: Hip dislocation, left Patient Disposition: Admitted As Inpatient Condition: Fair Discharge Instructions Interventions: ED Discharge Assessment Last Done: 10/05/20 16:23
== END 2020-10-08 15:56 | DRG 560 ==
LOC: ED 04:59 → EDINP 08:15 → 2S 17:27

== ENCOUNTER 2020-10-10 19:31 | Inpatient (IN) ==
[~2020-10-10 19:31] MED LIST changes: +CALCIUM CHLORIDE 10% 10 ML SYR IV ONE; -CEFAZOLIN 2000MG 2,000 MG/15 ML SYR IV SCH; -LR 15ML/HR IV SCH; +METOPROLOL TARTRATE 1 MG/ML VIAL IV ONE; +SODIUM BICARB 8.4% INJ 50 MEQ/50 ML SYR IV ONE; +SODIUM CHLORIDE 0.9% 10ML FLUSH IV ONE; +SODIUM CHLORIDE 0.9% 500 ML BAG IV ONE
[2020-10-10 20:12] LABS: Basophils # (auto) 0.01 K/uL (0-0.2); Basophils % (auto) 0.1 %; Eosinophils # (auto) 0.03 K/uL (0-0.5); Eosinophils % (auto) 0.4 %; Hematocrit (blood only) 29.1 % (42-52); Hemoglobin 8.8 g/dL (14.0-18.0); Immature Granulocytes # (auto) 0.03 K/uL (0.00-0.02); Immature Granulocytes % (auto) 0.4 %; Lymphocytes # (auto) 1.48 K/uL (1.2-3.4); Lymphocytes % (auto) 20.1 %; Mean Corpuscular Hemoglobin 25.9 pg (25-34); Mean Corpuscular Hgb Conc 30.2 g/dL (32-36); Mean Corpuscular Volume 85.6 fL (80-100); Mean Platelet Volume 9.1 fL (7.4-10.4); Monocytes # (auto) 0.77 K/uL (0.11-0.59); Monocytes % (auto) 10.5 %; Neutrophils # (auto) 5.04 K/uL (1.4-6.5); Neutrophils % (auto) 68.5 %; Platelet Count 338 K/uL (130-400); RDW Coefficient of Variation 16.3 % (11.5-14.5); RDW Standard Deviation 51.8 fL (36.4-46.3); White Blood Count 7.36 K/uL (4.8-10.8)
[2020-10-10 20:15] LABS: Appearance Urine Clear (Clear); Bacteria Urine Automated Negative (Negative); Bilirubin Urine Negative (Negative); Blood Urine Negative (Negative); Color Urine Yellow; Glucose Urine UA Negative (Negative); Ketones Urine Negative (Negative); Leukocyte Esterase Urine 1+ (Negative); Nitrite Urine Negative (Negative); Protein Urine Negative (Negative); RBC Urine Automated 0-4 /hpf (0-4); Specific Gravity Urine 1.017 (1.000-1.030); Urobilinogen Urine Negative (Negative)
[2020-10-10 20:22] LABS: INR 3.2 (0.9-1.1); Partial Thromboplastin Ratio 1.5; Partial Thromboplastin Time 38.9 Seconds (21.0-31.0)
[2020-10-10 20:41] LABS: Albumin Level 1.7 gm/dl (3.4-5.0); BUN Creatinine Ratio 18.8 (10-20); Calcium 8.7 mg/dl (8.5-10.1); Est GFR (African American) 58.9 ml/min; Est GFR (Non-African American) 50.8 ml/min; Potassium 4.1 mmol/L (3.5-5.1)
[2020-10-10 20:46] LABS: Albumin Globulin Ratio 0.4 (0.9-2); Bilirubin,Total 0.4 mg/dl (0.2-1); Globulin 3.8 gm/dl (2.5-4.0); Total Protein 5.5 gm/dl (6.4-8.2); Troponin I 0.023 ng/ml (0-0.045)
[2020-10-10] MEDS ORDERED: FUROSEMIDE 40 MG/4 ML VIAL IV STA (21:14)
[2020-10-10] MEDS ORDERED: methylPREDNISolone 125 MG/2 ML VIAL IV STA (21:14)
[2020-10-10] MEDS ORDERED: ALBUT/IPRATROP 3MG/0.5MG NEB 3 ML VIAL NEB STA (21:14)
--- NOTE | 2020-10-10 21:29 | Emergency Department Note ---
Impression & Plan SOB (shortness of breath), COPD (chronic obstructive pulmonary disease), Congestive heart failure, Anticoagulated ED Provider Note INFORMANT: Patient ED PROVIDER(S): Matt Fink MD CHIEF COMPLAINT: Shortness of breath PLAN: Disposition: Admitted Condition: Good Outpatient prescription management: none Referral: None MEDICAL DECISION MAKING: Patient presented to the emergency department because of shortness of breath. He did respond somewhat to 2 breathing treatments given prior to arrival. He does have findings concerning for CHF on physical examination. He did have some rapid A. fib but was relatively well controlled with a heart rate just hovering around 100. Patient's chest x-ray did show signs concerning for CHF. He does not have a fever or leukocytosis. The patient troponin was negative however his BNP is elevated confirming the CHF. He was treated with Solu-Medrol, DuoNeb, and IV Lasix. Under the circumstances further management and diuresis will need to be managed in the hospital. [facility] Patient was evaluated in the ER admitted for further management. Triage Nursing notes reviewed and agree them. Vital Signs: reviewed and remarkable for mild tachycardia Differential diagnosis: Reactive airway disease, pneumonia, pneumothorax, COPD, CHF, infections, cardiac ischemia, pulmonary embolism, musculoskeletal, gastrointestinal, as well as oth er pathologies. Diagnostics interpreted by me: ECG: Twelve-lead ECG reveals atrial fibrillation with rapid ventricular response at 108 bpm. Low voltage QRS. Incomplete right bundle branch block. Left anterior fascicular block. Lateral Q waves. Cardiac Monitoring: Cardiac monitoring ordered by me: The patient was placed on continuous cardiac monitoring and observed. It revealed atrial fibrillation at 114 bpm Imaging studies: Chest x-ray reveals cardiomegaly. Mild cephalization present. Basilar atelectasis present. Concerning for CHF. HPI: The patient is a 80 year old male who presents to the Emergency Room with complaints of shortness of breath. This started today and is somewhat stable. The patient also notes the following associated symptoms, nonproductive cough. The patient has been given 2 DuoNeb's at the nursing facility prior to transfer for relieving factors. Current pain is rated as 0/10. Patient does note some leg swelling. He does have history of A. fib and is anticoagulated. Patient also has a history of CHF and COPD. Pt denies LOC, headache, fevers, chills, diaphoresis, visual changes, neck pain, chest pain, nausea, vomiting, abdominal pain, back pain, melena, hematochezia, urinary symptoms, numbness, weakness, lymphadenopathy, rash, or other complaints. ROS: See above HPI for pertinent positives & negatives. A total of 10 systems reviewed and were otherwise negative. PAST MEDICAL HISTORY:See Below , CHF, COPD, A. fib, anticoagulated PAST SURGICAL HISTORY:See Below, hip replacement FAMILY HISTORY:See Below SOCIAL HISTORY:See Below, HOME MEDICATIONS:See Below ALLERGIES:See Below VITALS:See Below PHYSICAL EXAMINATION: GENERAL: Awake, alert, [id number], in no distress HENT: Normocephalic, atraumatic. Oropharynx unremarkable. EYES: Normal conjunctiva. Sclera non-icteric. NECK: Inspection normal. Non-tender. Supple. No nuchal rigidity. FROM. No masses. RESPIRATORY: Coarse breath sounds with scattered wheezes. A few basilar rales. Normal respiratory effort. CARDIAC: Borderline tachycardic rate. Irregular rhythm. No murmurs. No rubs. Extremities warm and well perfused. Pulses equal. No JVD. GI: Soft, non-distended. No tenderness to palpation. No rebound or guarding. No masses. Umbilical hernia present that is nontender. RECTAL: Deferred. MUSCULOSKELETAL: Atraumatic. Chest examination reveals no tenderness. There is n o CVA tenderness to palpation. No joint edema. LOWER EXTREMITIES: Calves are equal size bilaterally and non-tender. 1+ edema. No discoloration. NEURO: Normal sensorium. No sensory or motor deficits noted. SKIN: No rash or jaundice noted. Matt Fink MD 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)/last check 06/09/19 Palliative care encounter Pulmonary embolism remote hx Skin cancer left elbow region Weakness Surgical History H/O basal cell carcinoma excision REMOVED FROM NOSE H/O hand surgery LEFT MIDDLE FINGER FX REPAIR H/O inguinal hernia repair H/O nasal polypectomy History of bronchoscopy History of cataract surgery RT/LEFT History of colonoscopy History of inguinal hernia repair History of lung biopsy robotic thoracoscopy, pleural biopsy: 08/09/16: Grade view 1, MAC#3 at [facility] History of surgery of head "correct skull abnormality- left temporoparietal ; 1992" History of tooth extraction Status post placement of cardiac pacemaker Family History Brother Diabetes Son Diabetes Family hx of colon cancer Other Heart disease Social History Smoking Status: Never smoker Second Hand Exposure: No; Hx Alcohol Use: Yes Alcohol type: beer Hx Substance Use: No Preferred Language: British Communication Ability: Effective Visual Impairment: No Limitations Aoc Plans Intelligence Officer Required: No Beliefs That Will Affect Care: None marital status: Current Living Situation: Spouse Current Living Situation Comment: at home Feels Safe at Home: Yes Assistive Devices: Brace/Splint/Immobilizer, Glasses and Walker Allergies Allergies Allergy/AdvReac Type Severity Reaction Status Date / Time diltiazem Allergy Mild rash Verified 10/05/20 07:27 fluticasone furoate AdvReac Intermediate Joint Pain Verified 10/05/20 07:27 [From Breo Ellipta] vilanterol AdvReac Intermediate Joint Pain Verified 10/05/20 07:27 [From Breo Ellipta] aspirin AdvReac Mild GI symptoms Verified 10/05/20 07:27 lisinopril AdvReac Mild cough Verified 10/05/20 07:27 propoxyphene AdvReac Mild GI upset, Verified 10/05/20 07:27 diarrhea Home Meds Home Medications Medication Instructions Recorded Confirmed Flonase Sensimist 2 spray INTRANASAL DAILY 07/03/18 10/10/20 Lantus Solostar U-100 Insulin 22 unit SUBCUT QAM 07/03/18 10/10/20 insulin aspart U-100 [Novolog See Rx Instructions .ROUTE .COMPLEX 07/03/18 10/10/20 Flexpen U-100 Insulin] nitroglycerin [Nitrostat] 0.4 mg SUBLINGUAL UD PRN 07/03/18 10/10/20 simvastatin [Zocor] 20 mg PO QDD 07/03/18 10/10/20 tamsulosin [Flomax] 0.4 mg PO HS 07/03/18 10/10/20 levalbuterol HCl 1.25 mg INHALATION Q4H PRN 04/20/20 10/10/20 metoprolol tartrate 50 mg PO BID 04/20/20 10/10/20 warfarin See Rx Instructions .ROUTE .COMPLEX 04/20/20 10/10/20 digoxin 125 mcg (0.125 mg) tablet 125 mcg PO 3XWK tab 07/12/20 10/10/20 Anoro Ellipta 1 inh INHALATION QAM 08/13/20 10/10/20 ipratropium bromide 2.5 ml INHALATION QID PRN 09/09/20 10/10/20 torsemide 10 mg PO QAM 09/09/20 10/10/20 Combivent Respimat 1 puff INHALATION QID 10/05/20 10/10/20 guaifenesin 600 mg PO Q12H PRN 10/05/20 10/10/20 loratadine 10 mg PO DAILY PRN 10/05/20 10/10/20 Results & Data (ED) Vital Signs Vital Signs - 24 hr 10/10/20 19:37 10/10/20 20:02 10/10/20 20:22 Temperature 36.9 C Temperature Source Oral Pulse Rate 110 H Pulse Rate [Apical] 114 H Respiratory Rate 20 21 Respiratory Effort / Characteristics Non-Labored Respiratory Depth Normal Respiratory Pattern Regular Blood Pressure 103/75 Blood Pressure [Left Arm] 105/75 Blood Pressure Mean 84 Blood Pressure Mean [Left Arm] 85 Pulse Oximetry 95 94 96 Oxygen Delivery Method Room Air Room Air Room Air Sepsis Recent Fever Within 48 Hours No Sepsis New/Unexplained Change in Mental Status No Sepsis Action Taken by Nursing No Action Required Laboratory Data Result diagrams: 10/10/20 19:55 10/10/20 19:55 Lab Results 10/10/20 10/10/20 10/10/20 Range/Units 19:55 19:55 19:55 WBC 7.36 (4.8-10.8) K/uL RBC 3.40 L (4.7-6.1) M/uL Hgb 8.8 L (14.0-18.0) g/dL Hct 29.1 L (42-52) % MCV 85.6 (80-100) fL MCH 25.9 (25-34) pg MCHC 30.2 L (32-36) g/dL RDW Std Deviation 51.8 H (36.4-46.3) fL RDW Coeff of Samira 16.3 H (11.5-14.5) % Plt Count 338 (130-400) K/uL MPV 9.1 (7.4-10.4) fL Immature Gran % (Auto) 0.4 % Neut % (Auto) 68.5 % Lymph % (Auto) 20.1 % [place] % (Auto) 10.5 % Eos % (Auto) 0.4 % Baso % (Auto) 0.1 % Neut # (Auto) 5.04 (1.4-6.5) K/uL Lymph # (Auto) 1.48 (1.2-3.4) K/uL [place] # (Auto) 0.77 H (0.11-0.59) K/uL Eos # (Auto) 0.03 (0-0.5) K/uL Baso # (Auto) 0.01 (0-0.2) K/uL Immature Gran # (Auto) 0.03 H (0.00-0.02) K/uL PT 30.0 H (9.0-12.0) Seconds INR 3.2 H (0.9-1.1) APTT 38.9 H (21.0-31.0) Seconds PTT Ratio 1.5 Sodium 138 (136-145) mmol/L Potassium 4.1 (3.5-5.1) mmol/L Chloride 100 (98-107) mmol/L Carbon Dioxide 32 (21-32) mmol/L Anion Gap 5.0 (3-11) BUN 24 H (7-18) mg/dl Creatinine 1.30 (0.6-1.4) mg/dl Est Cr Clr Drug Dosing 53.0 ml/min Est GFR ( Amer) 58.9 ml/min Est GFR (Non-Af Amer) 50.8 ml/min BUN/Creatinine Ratio 18.8 (10-20) Glucose 78 (70-99) mg/dl Calcium 8.7 (8.5-10.1) mg/dl Total Bilirubin 0.4 (0.2-1) mg/dl AST 18 (15-37) U/L ALT 17 (12-78) U/L Alkaline Phosphatase 133 H (45-117) U/L Troponin I 0.023 (0-0.045) ng/ml NT-Pro-B Natriuret Pep 4486 H (0-1800) pg/ml Total Protein 5.5 L (6.4-8.2) gm/dl Albumin 1.7 L (3.4-5.0) gm/dl Globulin 3.8 (2.5-4.0) gm/dl Albumin/Globulin Ratio 0.4 L (0.9-2) Urine Color Urine Appearance (Clear) Urine pH (4.5-7.5) Ur Specific [place] (1.000-1.030) Urine Protein (Negative) Urine Glucose (UA) (Negative) Urine Ketones (Negative) Urine Blood (Negative) Urine Nitrite (Negative) Urine Bilirubin (Negative) Urine Urobilinogen (Negative) Ur Leukocyte Esterase (Negative) Urine WBC (Auto) (0-5) /hpf Urine RBC (Auto) (0-4) /hpf U Hyaline Cast (Auto) (0-5) /lpf U Epithel Cells (Auto) (0-5) /lpf Urine Bacteria (Auto) (Negative) COVID-19 Eval Order 10/10/20 10/10/20 Range/Units 19:55 20:20 WBC (4.8-10.8) K/uL RBC (4.7-6.1) M/uL Hgb (14.0-18.0) g/dL Hct (42-52) % MCV (80-100) fL MCH (25-34) pg MCHC (32-36) g/dL RDW Std Deviation (36.4-46.3) fL RDW Coeff of Samira (11.5-14.5) % Plt Count (130-400) K/uL MPV (7.4-10.4) fL Immature Gran % (Auto) % Neut % (Auto) % Lymph % (Auto) % [place] % (Auto) % Eos % (Auto) % Baso % (Auto) % Neut # (Auto) (1.4-6.5) K/uL Lymph # (Auto) (1.2-3.4) K/uL [place] # (Auto) (0.11-0.59) K/uL Eos # (Auto) (0-0.5) K/uL Baso # (Auto) (0-0.2) K/uL Immature Gran # (Auto) (0.00-0.02) K/uL PT (9.0-12.0) Seconds INR (0.9-1.1) APTT (21.0-31.0) Seconds PTT Ratio Sodium (136-145) mmol/L Potassium (3.5-5.1) mmol/L Chloride (98-107) mmol/L Carbon Dioxide (21-32) mmol/L Anion Gap (3-11) BUN (7-18) mg/dl Creatinine (0.6-1.4) mg/dl Est Cr Clr Drug Dosing ml/min Est GFR ( Amer) ml/min Est GFR (Non-Af Amer) ml/min BUN/Creatinine Ratio (10-20) Glucose (70-99) mg/dl Calcium (8.5-10.1) mg/dl Total Bilirubin (0.2-1) mg/dl AST (15-37) U/L ALT (12-78) U/L Alkaline Phosphatase (45-117) U/L Troponin I (0-0.045) ng/ml NT-Pro-B Natriuret Pep (0-1800) pg/ml Total Protein (6.4-8.2) gm/dl Albumin (3.4-5.0) gm/dl Globulin (2.5-4.0) gm/dl Albumin/Globulin Ratio (0.9-2) Urine Color Yellow Urine Appearance Clear (Clear) Urine pH 5.0 (4.5-7.5) Ur Specific [place] 1.017 (1.000-1.030) Urine Protein Negative (Negative) Urine Glucose (UA) Negative (Negative) Urine Ketones Negative (Negative) Urine Blood Negative (Negative) Urine Nitrite Negative (Negative) Urine Bilirubin Negative (Negative) Urine Urobilinogen Negative (Negative) Ur Leukocyte Esterase 1+ H (Negative) Urine WBC (Auto) 5-10 H (0-5) /hpf Urine RBC (Auto) 0-4 (0-4) /hpf U Hyaline Cast (Auto) 1-5 (0-5) /lpf U Epithel Cells (Auto) 5-10 H (0-5) /lpf Urine Bacteria (Auto) Negative (Negative) COVID-19 Eval Order Covid19 at [facility] Discharge Plan Visit Data Chief Complaint: Shortness of Breath/Dyspnea Stated Complaint: BREATHING DIFFICULTY ED Provider: Matt Fink Discharge Problem: SOB (shortness of breath), COPD (chronic obstructive pulmonary disease), Congestive heart failure, Anticoagulated Forms Stand Alone Forms: My [facility] [employer] Prescriptions Prescriptions: No Action digoxin 125 mcg (0.125 mg) tablet 125 mcg PO 3XWK RF: 0 levalbuterol HCl 1.25 mg/3 mL solution for nebulization 1.25 mg INHALATION Q4H PRN (Reason: Shortnes of breath) RF: 0 warfarin 2.5 mg tablet See Rx Instructions .ROUTE .COMPLEX RF: 0 metoprolol tartrate 50 mg Tablet 50 mg PO BID RF: 0 tamsulosin [Flomax] 0.4 mg Capsule 0.4 mg PO HS RF: 0 simvastatin [Zocor] 20 mg Tablet 20 mg PO QDD RF: 0 nitroglycerin [Nitrostat] 0.4 mg Tablet, Sublingual 0.4 mg Sublingual UD PRN (Reason: Chest Pain) RF: 0 insulin aspart U-100 [Novolog Flexpen U-100 Insulin] 100 unit/mL Insulin Pen See Rx Instructions .ROUTE .COMPLEX RF: 0 Flonase Sensimist 27.5 mcg/actuation [place],Suspension 2 spray Intranasal DAILY RF: 0 Lantus Solostar U-100 Insulin 100 unit/mL (3 mL) Insulin Pen 22 unit SUBCUT QAM RF: 0 Anoro Ellipta 62.5-25 mcg/actuation blister with device 1 inh inhalation QAM RF: 0 torsemide 20 mg tablet 10 mg PO QAM RF: 0 ipratropium bromide 0.02 % Solution 2.5 ml INHALATION QID PRN (Reason: Shortness Of Breath) RF: 0 loratadine 10 mg Capsule 10 mg PO DAILY PRN (Reason: Allergy Symptoms) RF: 0 guaifenesin 600 mg Tablet Extended Release 12hr 600 mg PO Q12H PRN (Reason: Congestion) RF: 0 Combivent Respimat 20-100 mcg/actuation mist 1 puff inhalation QID RF: 0
[2020-10-10] MEDS ORDERED: LEVALBUTEROL HCL 1.25 MG/3 ML NEB INH PRN (23:57)
[2020-10-10] MEDS ORDERED: NITROGLYCERIN SL 0.4 MG/TAB TAB SL PRN ×2 (23:57)
[2020-10-10] MEDS ORDERED: ACETAMINOPHEN 325 MG TAB PO PRN (23:57)
[2020-10-10] MEDS ORDERED: guaiFENesin 600 MG TABCR PO PRN (23:57)
[2020-10-10] MEDS ORDERED: IPRATROPIUM BROMIDE NEB SOLN 0.02% 2.5 ML VIAL INH PRN (23:57)
[2020-10-11] MEDS ORDERED: CEFEPIME CONSULT ACTIVE PRN (00:08)
[2020-10-11] MEDS: METOPROLOL TARTRATE 1 MG/ML VIAL IV PRN (00:19)
[2020-10-11] MEDS: METOPROLOL TARTRATE 50 MG TAB PO SCH ×3 (00:26→20:53)
[2020-10-11] MEDS: DOXYCYCLINE HYCLATE 100 MG in DEXTROSE 5% 100 ML IV SCH ×3 (00:26→23:20)
[2020-10-11] MEDS: CEFEPIME 2,000 MG in SYRINGE 0 ML IV SCH ×3 (00:27→23:20)
[2020-10-11] MEDS ORDERED: LORATADINE 10 MG TAB PO PRN (00:29)
[2020-10-11] MEDS ORDERED: MENTHOL-ZINC OXIDE 360 APPLN/120 GM TUBE EXT PRN (00:45)
--- NOTE | 2020-10-11 00:53 | History and Physical Report ---
DATE OF ADMISSION: 10/10/2020 CHIEF COMPLAINT: Shortness of breath. 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 The patient was recently in the hospital with a fall and left hip dislocation. His left hip has been repositioned and he was then transitioned to [facility] for rehabilitation yesterday. The patient says today he was getting more short of breath and he has a rasping cough, trying to bring up phlegm, was not coming up. That is the reason he was brought in here and was in mild rapid AFib with a heart rate in 110s. His INR was 3.2. COVID negative. Received his COVID vaccine. His chest x-ray showed possible congestive heart failure versus pneumonia in the right lower lobe. His BNP was 4400 which was not unusual for him. He received a dose of Lasix in the ER and Solu-Medrol and nebs. Denies any chest pain, no nausea, no vomiting, no headache, no blurred vision, no earache, no runny nose, no sore throat. No fevers, no abdominal pain. Sometimes gets constipated. Normal bladder movements. Currently at rehab, he was walking with the help of a walker. ALLERGIES: DILTIAZEM, PROPOXYPHENE, SALICYLATE, LISINOPRIL. PAST MEDICAL HISTORY: As mentioned above. PAST SURGICAL HISTORY: Colonoscopy, head surgery, needle punch biopsy of prostate, removal of nose polyps, inguinal hernia repair. MEDICATIONS: The patient is on Anoro Ellipta 1 inhalation q. a.m., Combivent Respimat 1 puff inhalation q.i.d., digoxin 125 mcg p.o. 3 times a week, Flonase 2 sprays intranasal daily, guaifenesin 600 mg p.o. b.i.d. p.r.n., NovoLog FlexPen as directed, Lantus 20 units a.m., ipratropium bromide 2.5 mg inhalation q.i.d. p.r.n., levalbuterol 1.25 mg inhalation q.4 hours p.r.n., loratadine 10 mg p.o. daily p.r.n., metoprolol tartrate 50 mg p.o. b.i.d., nitroglycerin 0.4 mg sublingual p.r.n., simvastatin 20 mg p.o. daily, Flomax 0.4 mg p.o. at bedtime, torsemide 10 mg p.o. a.m., warfarin as directed. FAMILY HISTORY: Significant for brother has asthma. Daughter has cancer. Mother has cancer. Brother has diabetes. Father has esophageal ulcers. Uncle has stroke. SOCIAL HISTORY: . Former smoker, average of 2 packs a day for 40 years, quit in 1995. Alcohol 2 cans of beer per week. No drug use. REVIEW OF SYSTEMS: As per HPI. Rest of review of systems negative. PHYSICAL EXAMINATION: GENERAL: The patient is moderate built, currently not in acute distress. VITAL SIGNS: Temperature 36.9, pulse 115, respiratory rate 22, blood pressure 105/75, oxygen 95% on 3 liters. HEENT: Pupils equal, round, reactive to light. Oral mucosa moist. NECK: No JVD or neck masses. CARDIOVASCULAR: S1, S2 heard, irregular rhythm, no murmur, no gallop. RESPIRATORY SYSTEM: Normal AP diameter. No accessory muscle use. Bilateral diminished breath sounds. No wheezing heard. ABDOMEN: Soft, bowel sounds present, nontender. No distention. CENTRAL NERVOUS SYSTEM: Alert and oriented. Speech clear, no facial droop. Obeys commands. Moves extremities. EXTREMITIES: No edema, no erythema. LABORATORY DATA: WBC 7.3, hemoglobin 8.8, hematocrit 39.1, platelets 238. PT 30.2, INR 3.2, APTT 38.9. Sodium 138, potassium 4.1, chloride 100, bicarbonate 32, BUN 24, creatinine 1.3, serum glucose 78, calcium 8.7, total bilirubin 0.4, AST 18, ALT 17, alkaline phosphatase 133. Troponin I 0.02. BNP 4486. Urinalysis, +1 leukocyte esterase, bacteria negative. SARS-CoV-2 PCR negative. IMAGING DATA: Chest x-ray shows possible infiltrate in the right lower lobe versus congestion. ASSESSMENT AND PLAN: This is an 80-year-old male presents with shortness of breath. 1. Shortness of breath, possible acute on chronic diastolic congestive heart failure, possible chronic obstructive pulmonary disease, ILD flare with pneumonia, received dose of Lasix nebs and steroid in the ER. We will continue with nebs around the clock and p.r.n. and IV Solu-Medrol 40 mg b.i.d. and continue with IV Lasix 40 daily and IV cefepime and IV doxycycline. Follow the response. Follow on the tele floor and consult cardiology and pulmonary for further recommendations. 2. Recent left hip dislocation. PT and OT when stable. 3. Type 1 diabetes. Continue with Lantus 20 units and insulin sliding scale. Follow the blood sugars while patient is on steroids. 4. History of paroxysmal atrial fibrillation, currently heart rate in 110s. Continue home medication of metoprolol and digoxin, on Coumadin. INR is 3.2. Follow the PT/INR. Continue Coumadin. We will place on IV Lopressor p.r.n. 5. Acute on chronic respiratory failure secondary to above. 6. History of asbestosis, pneumoconiosis. 7. History of tachybrady syndrome, status post pacemaker. 8. History of GERD. 9. History of chronic obstructive pulmonary disease, interstitial lung disease. Continue home inhalers and nebs as above 10. Anemia of chronic kidney disease stage III, hemoglobin 8.8, seems to be stable. We will follow the labs. 11. Chronic kidney disease stage III, creatinine 1.3. We will follow the repeat labs. The patient on IV Lasix. 12. History of benign prostatic hypertrophy on Flomax. 13. Hypertension, on metoprolol. We will monitor the blood pressure. 14. Deep venous thrombosis prophylaxis, on Coumadin. Follow PT/INR. DISPOSITION: Admit to tele floor. PT/OT prior to discharge. Social service to help with discharge planning. May need to go back to [facility] when stable. Level 1 full code as per my discussion with the patient. MTDD
[2020-10-11] MEDS ORDERED: XOPENEX/ATROVENT 1.25mg/0.5MG NEB COMBO NEB SCH (01:00)
[2020-10-11] MEDS: IPRATROPIUM BROMIDE NEB SOLN 0.02% 2.5 ML VIAL INH SCH ×4 (01:22→20:16)
[2020-10-11] MEDS: LEVALBUTEROL 1.25MG/0.5ML NEB INH SCH ×4 (01:22→20:16)
[2020-10-11] MEDS ORDERED: GLUCOSE 40% GEL 15 GM TUBE PO PRN (01:30)
[2020-10-11] MEDS ORDERED: GLUCOSE 10 TABS/TUBE PO PRN (01:30)
[2020-10-11] MEDS ORDERED: GLUCAGON FOR INJ 1 MG VIAL IM PRN (01:30)
[2020-10-11] MEDS ORDERED: STAT IV Infusion **Titration per Protocol STA (01:57)
[2020-10-11] MEDS ORDERED: dilTIAZem HCl 5 MG/ML 5 ML VIAL IV STA (02:19)
[2020-10-11] MEDS ORDERED: dilTIAZem HCL 125 MG in DEXTROSE 5% 100 ML IV SCH (02:30)
[2020-10-11 05:44] LABS: Hemoglobin 8.8 g/dL (14.0-18.0); Immature Granulocytes # (auto) 0.05 K/uL (0.00-0.02); Immature Granulocytes % (auto) 0.7 %; Lymphocytes # (auto) 0.77 K/uL (1.2-3.4); Lymphocytes % (auto) 10.2 %; Mean Corpuscular Hemoglobin 25.7 pg (25-34); Mean Corpuscular Hgb Conc 30.3 g/dL (32-36); Mean Corpuscular Volume 84.8 fL (80-100); Mean Platelet Volume 9.3 fL (7.4-10.4); Monocytes # (auto) 0.08 K/uL (0.11-0.59); Monocytes % (auto) 1.1 %; Neutrophils # (auto) 6.62 K/uL (1.4-6.5); Platelet Count 348 K/uL (130-400); RDW Coefficient of Variation 16.5 % (11.5-14.5); Red Blood Count 3.42 M/uL (4.7-6.1); White Blood Count 7.52 K/uL (4.8-10.8)
[2020-10-11 06:04] LABS: INR 3.9 (0.9-1.1); Prothrombin Time 35.6 Seconds (9.0-12.0)
[2020-10-11 06:32] LABS: BUN Creatinine Ratio 19.4 (10-20); Blood Urea Nitrogen 26 mg/dl (7-18); Calcium 7.8 mg/dl (8.5-10.1); Carbon Dioxide 30 mmol/L (21-32); Chloride 101 mmol/L (98-107); Creatinine Clr Calc Pharmacy 51.2 ml/min; Est GFR (African American) 57.8 ml/min; Est GFR (Non-African American) 49.9 ml/min; Glucose 237 mg/dl (70-99); Magnesium 1.7 mg/dl (1.8-2.4); Potassium 4.9 mmol/L (3.5-5.1); Sodium 137 mmol/L (136-145); Troponin I < 0.015 ng/ml (0-0.045)
[2020-10-11] MEDS ORDERED: XOPENEX/ATROVENT 1.25mg/0.5MG NEB COMBO NEB PRN (06:33)
[2020-10-11] MEDS ORDERED: IPRATROPIUM BROMIDE NEB SOLN 0.02% 2.5 ML VIAL INH PRN (06:45)
[2020-10-11] MEDS ORDERED: LEVALBUTEROL 1.25MG/0.5ML NEB INH PRN (06:45)
--- NOTE | 2020-10-11 06:59 | Hospitalist Progress Note ---
Date of Service October 11, 2020 Assessment & Plan Admission and Anticipated Discharge Date Admission Date: October 10, 2020 Subjective inr 3.9 today. Holding coumadin. To Follow pt/inr and to restart coumadin when able to. Results & Data Results & Data ([facility]) Vital Signs (Past 12 Hours) Vital Signs Temp Pulse Pulse Resp BP BP Pulse Ox 10/11/20 04:42 96 H 10/11/20 03:36 36.7 C 101 H 16 121/78 100 10/11/20 01:22 118 H 22 97 10/11/20 01:15 128 H 113/75 10/11/20 00:47 121 H 10/11/20 00:24 132 H 111/70 10/11/20 00:19 135 H 114/67 10/11/20 00:17 135 H 114/67 10/10/20 23:47 37.3 C 125 H 20 124/76 98 10/10/20 22:52 36.5 C 99 H 19 155/84 H 97 10/10/20 22:50 117 H 25 H 98 10/10/20 22:40 129 H 25 H 99 10/10/20 22:31 129 H 22 95 10/10/20 22:30 126 H 21 139/66 94 10/10/20 22:20 122 H 22 10/10/20 22:10 117 H 23 10/10/20 22:01 136 H 22 10/10/20 22:00 119 H 15 118/76 10/10/20 21:50 121 H 16 97 10/10/20 21:40 123 H 18 10/10/20 21:36 115 H 22 95 10/10/20 21:31 113 H 26 H 96 10/10/20 21:30 124 H 14 107/54 L 96 10/10/20 21:20 128 H 20 71 L 10/10/20 21:10 111 H 23 95 10/10/20 21:01 110 H 21 94 10/10/20 21:00 114 H 15 121/80 94 10/10/20 20:50 116 H 27 H 94 10/10/20 20:40 106 H 22 89 L 10/10/20 20:31 112 H 18 91 10/10/20 20:30 104 H 21 107/69 93 10/10/20 20:22 96 10/10/20 20:20 116 H 24 96 10/10/20 20:10 100 H 17 91 10/10/20 20:03 100 H 22 105/75 96 10/10/20 20:02 98 H 114 H 18 81/52 L 105/75 95 10/10/20 20:00 100 H 19 96 10/10/20 19:50 102 H 27 H 81 L 10/10/20 19:40 113 H 16 95 10/10/20 19:38 109 H 18 98 10/10/20 19:37 36.9 C 110 H 20 103/75 95 10/10/20 19:35 110 H 20 103/75 97
[2020-10-11] MEDS ORDERED: MAGNESIUM SULFATE / D5W 1 GM/100 ML BAG IV ONE (07:00)
[2020-10-11] MEDS ORDERED: Ipratropium HFA Inhaler (Combivent Respimat P&T Subs) INH SCH (07:00)
[2020-10-11] MEDS ORDERED: Albuterol HFA 8 GM Inhaler (Combivent Respimat P&T Subs) INH SCH (07:00)
[2020-10-11] MEDS: FUROSEMIDE 40 MG in SYRINGE 0 ML IV SCH (07:25)
[2020-10-11] MEDS: INSULIN ASPART 100 UNITS/ML 3 ML PEN SC SCH ×4 (07:52→20:52)
[2020-10-11] MEDS: FLUTICASONE PROPIONATE NA SPR 16 GM BTL SCH (07:56)
[2020-10-11] MEDS: DIGOXIN 0.125 MG TAB PO SCH (07:57)
[2020-10-11] MEDS: INSULIN GLARGINE SOLOSTAR 100 UNITS/ML 3 ML PEN SQ SCH (08:00)
--- NOTE | 2020-10-11 08:31 | XRay Report ---
XR chest 1V portable HISTORY: Dyspnea COMPARISON: Chest 10/05/2020. FINDINGS: Emphysema. No pneumothorax. Stable postoperative changes within the right lung apex. Calcif ied pleural plaques are again noted. Progression of the bibasilar densities. The heart remains mildly enlarged. Is left-sided dual-chamber pacemaker. Small bilateral pleural effusions. No evidence for p ulmonary edema. IMPRESSION: Interval progression of the small bilateral pleural effusions and nonspecific bibasilar densities. ACT 112: Negative or not required by law. Electronically signed by: Cali Sams M.D. 10/11/2020 8:29 AM
[2020-10-11 08:32] LABS: Estimated Average Glucose 171 mg/dl; Hemoglobin A1C 7.6 % (4.5-5.6)
[2020-10-11] MEDS ORDERED: UMECLIDINIUM/VILANTEROL 62.5/25MCG 7 PUFFS/INHALER INH SCH (09:00)
[2020-10-11] MEDS ORDERED: IPRATROPIUM BROMIDE/ALBUTEROL respimat INH INH SCH (09:00)
[2020-10-11] MEDS ORDERED: methylPREDNISolone 40 MG in SYRINGE 0 ML IV SCH (09:00)
[2020-10-11] MEDS ORDERED: FUROSEMIDE 40 MG/4 ML VIAL IV SCH (09:00)
--- NOTE | 2020-10-11 11:19 | Cardiology Consultation ---
Date of Consultation October 11, 2020 Assessment & Plan (1) SOB (shortness of breath): Multifactorial respiratory insufficiency 1. Underlying severe lung disease 2. Permanent atrial fibrillation, mildly elevated ventricular rate 3. Acute on chronic heart failure with preserved ejection fraction -Chest x-ray is somewhat difficult to interpret due to underlying interstitial lung disease. Continue current treatment including bronchodilators, empiric course of doxy cycline, as well as furosemide.Do not feel additional echocardiogram is to be repeated as we do have a recent study performed a month ago with stable findings. Coumadin on hold for INR 3.9. Repeat INR tomorrow reinitiate when INR less than 3. History of Present Illness Attending Physician: Vincent Kenyon MD History of Present Illness Matt Plata is an 80 year old male seen in cardiology consultation per the request of Dr Burns and Dr Kenyon for the evaluation of chronic atrial fibrillation and respiratory insufficiency. Patient is well known to our cardiology service. His primary senior software manager is Dr Carrillo. The patient has had multiple recent admissions for both respiratory insufficiency and recent left hip fracture which underwent surgical intervention in Aug, 2020. He has a complex history of severe underlying lung disease with noted COPD, tracheobronchomalacia, interstitial lung disease, and chronic hypoxic hypercapnic respiratory failure. From a cardiac perspective he is followed for permanent atrial fibrillation, tachycardia-bradycardia syndrome and he underwent permanent pacemaker implantation in 2017. Echocardiogram performed 09/09/2020 revealed hyperdynamic left ventricular systolic function with LVEF greater than 70%, moderate right atrial enlargement, estimated pulmonary systolic pressure of 35 mmHg. Patient was recovering at [facility]. Progressive shortness of breath and hypoxia noted prompting presentation to the ED. Pulse oxymetry now 100% on 3 L NC. Telemetry reveals chronic AF at 100 bpm with occasional V-pacing. Allergies Allergy/AdvReac Type Severity Reaction Status Date / Time diltiazem Allergy Mild rash Verified 10/05/20 07:27 fluticasone furoate AdvReac Intermediate Joint Pain Verified 10/05/20 07:27 [From Breo Ellipta] vilanterol AdvReac Intermediate Joint Pain Verified 10/05/20 07:27 [From Breo Ellipta] aspirin AdvReac Mild GI symptoms Verified 10/05/20 07:27 lisinopril AdvReac Mild cough Verified 10/05/20 07:27 propoxyphene AdvReac Mild GI upset, Verified 10/05/20 07:27 diarrhea Home Medications Medication Instructions Recorded Confirmed Type Flonase Sensimist 2 spray INTRANASAL DAILY 07/03/18 10/10/20 History Lantus Solostar U-100 Insulin 22 unit SUBCUT QAM 07/03/18 10/10/20 History insulin aspart U-100 [Novolog See Rx Instructions .ROUTE .COMPLEX 07/03/18 10/10/20 History Flexpen U-100 Insulin] nitroglycerin [Nitrostat] 0.4 mg SUBLINGUAL UD PRN 07/03/18 10/10/20 History simvastatin [Zocor] 20 mg PO QDD 07/03/18 10/10/20 History tamsulosin [Flomax] 0.4 mg PO HS 07/03/18 10/10/20 History levalbuterol HCl 1.25 mg INHALATION Q4H PRN 04/20/20 10/10/20 History metoprolol tartrate 50 mg PO BID 04/20/20 10/10/20 History warfarin See Rx Instructions .ROUTE .COMPLEX 04/20/20 10/10/20 History digoxin 125 mcg (0.125 mg) tablet 125 mcg PO 3XWK tab 07/12/20 10/10/20 History Anoro Ellipta 1 inh INHALATION QAM 08/13/20 10/10/20 History ipratropium bromide 2.5 ml INHALATION QID PRN 09/09/20 10/10/20 History torsemide 10 mg PO QAM 09/09/20 10/10/20 History Combivent Respimat 1 puff INHALATION QID 10/05/20 10/10/20 History guaifenesin 600 mg PO Q12H PRN 10/05/20 10/10/20 History loratadine 10 mg PO DAILY PRN 10/05/20 10/10/20 History Patient History Medical History Anemia felt d/t chronic disease, hgb baseline 10-12 range per chart review Atrial fibrillation paroxysmal- on coumadin BPH (benign prostatic hypertrophy) CKD (chronic kidney disease) stage 3, GFR 30-59 ml/min COPD (chronic obstructive pulmonary disease) Diabetes type I Dyslipidemia per records Elbow fracture, right current issue s/p fall at home GERD (gastroesophageal reflux disease) r/t inhalers Interstitial lung disease Nocturnal hypoxemia 2L O2 HS Pacemaker Implanted 2017 (hx tachy macy syndrome)/last check 06/09/19 Palliative care encounter Pulmonary embolism remote hx Skin cancer left elbow region Weakness Surgical History H/O basal cell carcinoma excision REMOVED FROM NOSE H/O hand surgery LEFT MIDDLE FINGER FX REPAIR H/O inguinal hernia repair H/O nasal polypectomy History of bronchoscopy History of cataract surgery RT/LEFT History of colonoscopy History of inguinal hernia repair History of lung biopsy robotic thoracoscopy, pleural biopsy: 08/09/16: Grade view 1, MAC#3 at [facility] History of surgery of head "correct skull abnormality- left temporoparietal ; 1992" History of tooth extraction Status post placement of cardiac pacemaker Family History Brother Diabetes Son Diabetes Family hx of colon cancer Other Heart disease Social History Smoking Status: Former smoker Second Hand Exposure: No; Hx Alcohol Use: Yes Alcohol type: beer Hx Substance Use: Yes Preferred Language: Dutch Communication Ability: Effective Visual Impairment: No Limitations Bill Peddler Required: No Beliefs That Will Affect Care: None marital status: Current Living Situation: [facility] Current Living Situation Comment: at home Feels Safe at Home: Yes Safety Concerns: Feels Safe At This Time Assistive Devices: Walker Review of Systems Review of Systems: All systems reviewed & are unremarkable except as noted in HPI & below Physical Exam Physical Exam: Temp Pulse Resp BP Pulse Ox 36.5 C 93 H 20 103/64 100 10/11/20 11:03 10/11/20 11:03 10/11/20 11:03 10/11/20 11:03 10/11/20 11:03 Constitutional: chronically ill in appearance Respiratory: Decreased BS at the bases Cardiovascular: Rate/Rhythm: + irregularly irregular Gastrointestinal (Abdomen): normal bowel sounds, soft, nontender, no hepatos plenomegaly Neurologic: PERRL, EOMI, accommodation nl, no face palsy, no dysarthria Results & Data ([facility]) Vital Signs (Past 12 Hours) Vital Signs Temp Pulse Pulse Resp BP BP Pulse Ox 10/11/20 11:03 36.5 C 93 H 20 103/64 100 10/11/20 07:57 116 H 10/11/20 07:26 77 20 95 10/11/20 06:58 36.7 C 108 H 20 108/77 100 10/11/20 04:42 96 H 10/11/20 03:36 36.7 C 101 H 16 121/78 100 10/11/20 01:22 118 H 22 97 10/11/20 01:15 128 H 113/75 10/11/20 00:47 121 H 10/11/20 00:24 132 H 111/70 10/11/20 00:19 135 H 114/67 10/11/20 00:17 135 H 114/67 10/10/20 23:47 37.3 C 125 H 20 124/76 98 Laboratory Results Cardiac Enzymes 10/10/20 10/11/20 Range/Units 19:55 05:27 AST 18 (15-37) U/L Troponin I 0.023 < 0.015 (0-0.045) ng/ml Coagulation INR 10/11/20: 3.9 10/10/20 10/11/20 Range/Units 19:55 05:27 PT 30.0 H 35.6 H (9.0-12.0) Seconds APTT 38.9 H (21.0-31.0) Seconds CBC 10/10/20 10/11/20 Range/Units 19:55 05:27 WBC 7.36 7.52 (4.8-10.8) K/uL RBC 3.40 L 3.42 L (4.7-6.1) M/uL Hgb 8.8 L 8.8 L (14.0-18.0) g/dL Hct 29.1 L 29.0 L (42-52) % Plt Count 338 348 (130-400) K/uL Neut # (Auto) 5.04 6.62 H (1.4-6.5) K/uL Lymph # (Auto) 1.48 0.77 L (1.2-3.4) K/uL [place] # (Auto) 0.77 H 0.08 L (0.11-0.59) K/uL Eos # (Auto) 0.03 0.00 (0-0.5) K/uL Baso # (Auto) 0.01 0.00 (0-0.2) K/uL Comprehensive Metabolic Panel 10/10/20 10/11/20 Range/Units 19:55 05:27 Sodium 138 137 (136-145) mmol/L Potassium 4.1 4.9 D (3.5-5.1) mmol/L Chloride 100 101 (98-107) mmol/L Carbon Dioxide 32 30 (21-32) mmol/L BUN 24 H 26 H (7-18) mg/dl Creatinine 1.30 1.32 (0.6-1.4) mg/dl Glucose 78 237 H (70-99) mg/dl Calcium 8.7 7.8 L (8.5-10.1) mg/dl AST 18 (15-37) U/L ALT 17 (12-78) U/L Alkaline Phosphatase 133 H (45-117) U/L Total Protein 5.5 L (6.4-8.2) gm/dl Albumin 1.7 L (3.4-5.0) gm/dl Intake and Output 10/10/20 10/11/20 10/11/20 22:59 06:59 14:59 Intake Total 210 / 210 100 / 100 Output Total 250 / 250 Balance -40 / -40 100 / 100 Intake: IV 110 / 110 100 / 100 Doxycycline Hyclate 100 mg In 110 / 110 Dextrose 5% 100 ml @ 50 mls/hr IV Q12H [facility] Rx#:[id number] Magnesium Sulfate / D5w 1 gm In 100 / 100 100 ml @ 50 mls/hr IV [facility] Rx#:[id number] Oral 100 / 100 Output: Urine 250 / 250 Other: Weight 97.5 kg 93.3 kg Weight Measurement Method Built in [facility] Built in [facility] Diagnostic Findings CXR: small bibasilar pleural effusions
--- NOTE | 2020-10-11 12:38 | Electrocardiogram Report ---
Test Reason : Blood Pressure : / mmHG Vent. Rate : 108 BPM Atrial Rate : 131 BPM P-R Int : 000 ms QRS Dur : 110 ms QT Int : 324 ms P-R-T Axes : 000 -55 078 degrees QTc Int : 434 ms Atrial fibrillation with rapid ventricular response Low voltage QRS Incomplete right bundle branch block Left anterior fascicular block Possible Lateral infarct , age undetermined Abnormal ECG When compared with ECG of 05-OCT-2020 05:33, Borderline criteria for Lateral infarct are now Present Confirmed by Alec Sandoval ([id number]) on 10/11/2020 12:37:56 PM Referred By: REFERRED SELF Confirmed By:Jermain Sandoval
[2020-10-11] MEDS ORDERED: PHARMACY GLYCEMIC MGMT CONSULT PRN (13:56)
--- NOTE | 2020-10-11 13:58 | Pulmonary Consultation ---
Date of Consultation October 11, 2020 Assessment & Plan (1) COPD exacerbation: 80-year-old male presenting to the hospital due to shortness of breath. He has a history of mixed obstructive and restrictive lung disease. Shortness of breath: Agree that this is likely multifactorial. I will switch his IV Solu-Medrol to prednisone. Recommend continuing a prednisone taper to his regular dose of prednisone over the course of 2 to 3 weeks. Unfortunately, he is requiring an IV insulin drip to control his blood sugars. This will need to be monitored closely. Recommend initiating Bactrim prophylaxis every Sunday, Sunday and Sunday for 3 to 4 weeks while on the increased dose of prednisone. Agree with diuretic therapy as he does have a component of acute on chronic diastolic CHF. His echo results from March 2020 are noted. I am going to change his inhaler regimen while in the hospital to Breo Ellipta and Incruse Ellipta. The adverse reaction of Breo Ellipta causing joint pain is noted. I doubt this was a true adverse reaction. We will trial it in the hospital. Karthik roy is agreeable to giving this new inhaler to try. He does not recall the reaction that he had previously. I have also ordered a procalcitonin level. If negative, would recommend discontinuation of cefepime. Continue doxycycline for 5 days for atypical coverage. Flutter valve and incentive spirometer ordered as well. Patient should follow-up in the pulmonary clinic. Pulmonary will continue to follow along with you. Thank you for the consult. (2) Pulmonary fibrosis: (3) Respiratory failure: Chronicity: acute Respiratory failure complication: hypoxia and hypercapnia Qualified Code(s): J96.01 - Acute respiratory failure with hypoxia; J96.02 - Acute respiratory failure with hypercapnia (4) Shortness of breath: (5) Congestive heart failure: History of Present Illness Reason for Consultation: COPD Attending Physician: Vincent Kenyon MD History of Present Illness 80-year-old male with a past medical history of COPD, tracheobronchomalacia, diastolic heart failure, chronic hypoxemic respiratory failure, chronic hypercapnic respiratory failure on nocturnal AVAPS who is presenting to the hospital due to shortness of breath. Last month he was evaluated by my colleagues, Dr. Mims and Dr. Henderson in the hospital. He is followed by Dr. Johansen in the outpatient clinic. He is on chronic prednisone therapy. He was admitted last evening due to increasing shortness of breath and a cough. He was also found to be in rapid atrial fibrillation with his heart rates in the 110s. His proBNP was elevated at 4400. He received a dose of Lasix and Solu-Medrol in the ER. He was also evaluated by Dr. Hernandez of cardiology today who feels that the shortness of breath is multifactorial related to underlying atrial fibrillation, acute on chronic diastolic heart failure and his severe lung disease. The patient notes that he uses his home oxygen when he feels very short of breath. He does use it continuously at night, but rarely during the day. He notes that he gets short of breath with activity. His goal is to be able to go outside and mow 5 acre symptoms land. His was present during the visit and felt that this is likely an unrealistic goal for him. The patient is insistent that he wants to be able to do this again. He denies any significant chest pain at present. He does have an occasional cough. He quit smoking roughly 15 years ago. He smoked heavily for 40 years. Chest x-ray reviewed today demonstrates interval progression of the small bilateral effusions noted from prior. Allergies Allergy/AdvReac Type Severity Reaction Status Date / Time diltiazem Allergy Mild rash Verified 10/05/20 07:27 fluticasone furoate AdvReac Intermediate Joint Pain Verified 10/05/20 07:27 [From Breo Ellipta] vilanterol AdvReac Intermediate Joint Pain Verified 10/05/20 07:27 [From Breo Ellipta] aspirin AdvReac Mild GI symptoms Verified 10/05/20 07:27 lisinopril AdvReac Mild cough Verified 10/05/20 07:27 propoxyphene AdvReac Mild GI upset, Verified 10/05/20 07:27 diarrhea Home Medications Medication Instructions Recorded Confirmed Type Flonase Sensimist 2 spray INTRANASAL DAILY 07/03/18 10/10/20 History Lantus Solostar U-100 Insulin 22 unit SUBCUT QAM 07/03/18 10/10/20 History insulin aspart U-100 [Novolog See Rx Instructions .ROUTE .COMPLEX 07/03/18 10/10/20 History Flexpen U-100 Insulin] nitroglycerin [Nitrostat] 0.4 mg SUBLINGUAL UD PRN 07/03/18 10/10/20 History simvastatin [Zocor] 20 mg PO QDD 07/03/18 10/10/20 History tamsulosin [Flomax] 0.4 mg PO HS 07/03/18 10/10/20 History levalbuterol HCl 1.25 mg INHALATION Q4H PRN 04/20/20 10/10/20 History metoprolol tartrate 50 mg PO BID 04/20/20 10/10/20 History warfarin See Rx Instructions .ROUTE .COMPLEX 04/20/20 10/10/20 History digoxin 125 mcg (0.125 mg) tablet 125 mcg PO 3XWK tab 07/12/20 10/10/20 History Anoro Ellipta 1 inh INHALATION QAM 08/13/20 10/10/20 History ipratropium bromide 2.5 ml INHALATION QID PRN 09/09/20 10/10/20 History torsemide 10 mg PO QAM 09/09/20 10/10/20 History Combivent Respimat 1 puff INHALATION QID 10/05/20 10/10/20 History guaifenesin 600 mg PO Q12H PRN 10/05/20 10/10/20 History loratadine 10 mg PO DAILY PRN 10/05/20 10/10/20 History Patient History Medical History (Updated 10/11/20 @ 14:06 by Colten Connolly MD) Anemia felt d/t chronic disease, hgb baseline 10-12 range per chart review Atrial fibrillation paroxysmal- on coumadin BPH (benign prostatic hypertrophy) CKD (chronic kidney disease) stage 3, GFR 30-59 ml/min COPD (chronic obstructive pulmonary disease) COPD exacerbation Diabetes type I Dyslipidemia per records Elbow fracture, right current issue s/p fall at home GERD (gastroesophageal reflux disease) r/t inhalers Interstitial lung disease Nocturnal hypoxemia 2L O2 HS 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)/last check 06/09/19 Palliative care encounter Pulmonary embolism remote hx Pulmonary fibrosis Shortness of breath Skin cancer left elbow region Weakness Surgical History H/O basal cell carcinoma excision REMOVED FROM NOSE H/O hand surgery LEFT MIDDLE FINGER FX REPAIR H/O inguinal hernia repair H/O nasal polypectomy History of bronchoscopy History of cataract surgery RT/LEFT History of colonoscopy History of inguinal hernia repair History of lung biopsy robotic thoracoscopy, pleural biopsy: 08/09/16: Grade view 1, MAC#3 at [facility] History of surgery of head "correct skull abnormality- left temporoparietal ; 1992" History of tooth extraction Status post placement of cardiac pacemaker Family History Brother Diabetes Son Diabetes Family hx of colon cancer Other Heart disease Social History Smoking Status: Former smoker Second Hand Exposure: No; Hx Alcohol Use: Yes Alcohol type: beer Hx Substance Use: Yes Preferred Language: Urdu Communication Ability: Effective Visual Impairment: No Limitations Design Consultant Required: No Beliefs That Will Affect Care: None marital status: Current Living Situation: Detention Current Living Situation Comment: at home Feels Safe at Home: Yes Safety Concerns: Feels Safe At This Time Assistive Devices: Walker Results & Data Results & Data ([facility]) Vital Signs (Past 12 Hours) Vital Signs Temp Pulse Pulse Resp BP Pulse Ox 10/11/20 13:03 84 20 97 10/11/20 11:03 97.7 F 93 H 20 103/64 100 10/11/20 07:57 116 H 10/11/20 07:26 77 20 95 10/11/20 06:58 98.1 F 108 H 20 108/77 100 10/11/20 04:42 96 H 10/11/20 03:36 98.1 F 101 H 16 121/78 100 vital signs, labs and imaging reviewed. PFT completed on 06/24/2018 demonstrated a mixed obstructive and restrictive pattern with an FEV1 of 1.75 L, 53%. FVC 3.35 L, 78% predicted. TLC 80% predicted. DLCO 62% predicted. PG Care Time/CCT Total # of Minutes Spent Total Time Spent with Patient: Total time spent is greater than 50% in coordination of care (as documented) at patient's floor/unit and/or counseling patient: Coding Level of Care Code 96499 Initial Inpt Care Lvl 3 Diagnoses COPD exacerbation J44.1 Pulmonary fibrosis J84.10 Respiratory failure J96.01; J96.02 Chronicity: acute Respiratory failure complication: hypoxia and hypercapnia Shortness of breath R06.02 Congestive heart failure I50.9
[2020-10-11] MEDS ORDERED: INSULIN PROTOCOL GOAL RANGE ONE (14:05)
[2020-10-11] MEDS ORDERED: SEVERE STRESS LEVEL ONE (14:05)
[2020-10-11] MEDS ORDERED: INSULIN REGULAR 250 UNITS in SODIUM CHLORIDE 0.9% 247.5 ML IV SCH (14:15)
[2020-10-11] MEDS ORDERED: INSULIN HUMAN REGULAR PER IV ONE (14:15)
--- NOTE | 2020-10-11 14:27 | Pharmacy Report ---
Pharmacy Glycemic Short Note 2 - Date of Service October 11, 2020 - Glycemic Short BSG Results (Last 24 hours): 10/10/20 10/10/20 10/10/20 19:55 23:37 23:59 Glucose 78 POC Glucose 66 L* 108 H 10/11/20 10/11/20 10/11/20 05:27 07:19 11:25 Glucose 237 H POC Glucose 305 H* 412 H* 10/11/20 13:59 Glucose POC Glucose 457 H* OUTPATIENT ANTIDIABETIC REGIMEN: * Lantus 22 units SC qAM * Novolog 3-4 times daily SSI up to 80 units/day * HbA1c: 7.6% (10/11/20) ASSESSMENT: * JIA is an 80 year old male with T1DM well known to pharmacy glycemic service * Recently discharged on 10/08/20 * BSGs were low at time of admission, 66 mg/dL * Received Solu-medrol 125 mg IV x 1 last evening and 40 mg IV x 1 today * Switched to prednisone 40 mg PO daily starting tomorrow morning * BSGs today of 305 mg/dL and 412 mg/dL * Received home Lantus dose of 22 units this morning and 37 units of Novolog so far today * BSG recheck for 457 mg/dL at time of pharmacy consult * Will initiate insulin infusion and give additional basal dose this afternoon to help cover steroids PLAN FOR INPATIENT GLYCEMIC CONTROL: * IV insulin infusion * Remains the safest treatment option to bring down elevated BSGs in this patient * Basal insulin * Lantus 22 units SC qAM - given this morning * Lantus 10 units SC x 1 this afternoon to help cover steroids and aid in drip transition * Bolus insulin * NovoLog per scale ACHS or Q6hrs while NPO * Goal Range: Low 110 mg/dL - High 140 mg/dL * Correction Factor: 20 mg/dL/unit * Nutritional / Prandial insulin per carb ratio of 1 unit per 7 grams CHO consumed PLAN FOR DISCHARGE: * A1c of 7.6% is reasonable for patient given age and comorbidities and is also much improved from earlier this year * Reasonable to continue home regimen, provided patient is not experiencing hypoglycemia as an outpatient
[2020-10-11] MEDS ORDERED: INSULIN HUMAN REGULAR IV BOLUS 3.5 UNITS in SYRINGE 0 ML IV ONE (14:30)
[2020-10-11] MEDS ORDERED: INSULIN GLARGINE SOLOSTAR 100 UNITS/ML 3 ML PEN SQ ONE ×2 (14:30)
--- NOTE | 2020-10-11 15:25 | Hospitalist Progress Note ---
Date of Service October 11, 2020 Assessment & Plan (1) COPD exacerbation: Has severe pulmonary disease as mentioned below and requiring oxygen to maintain saturation Presented with increasing shortness of breath and decreasing saturation Has mild COPD exacerbations Has been getting prednisone, nebulized bronchodilator and doxycycline IV Appreciate pulmonary input and recommendation for Bactrim as an outpatient for prophylaxis We'll continue current management Palliative care was consulted at some point to define goal of care He remains full code and full management will be continued for now (2) Shortness of breath: (3) Pulmonary fibrosis: (4) Acute on chronic respiratory failure: (5) Acute on chronic heart failure with preserved ejection fraction: No definitive signs of fluid overload except chest x-ray finding which is equivocal Denies any increasing leg swelling Appreciate cardiology input and recommendation Has been getting intravenous Lasix for now (6) Atrial fibrillation with rapid ventricular response: Atrial fibrillation on anticoagulation Has been getting beta-chiquita to control rate Rate is minimally elevation which may be contributed by use of bronchodilators and apprehension secondary to increasing shortness of breath Appreciate cardiology input and recommendation (7) Left displaced femoral neck fracture: Admitted on 09/09/2020 with fall and fracture Repaired and went for rehab Fell again with dislocation recently and was sent to rehab on 12th of this month Back to the hospital with increasing shortness of breath as above (8) Hip dislocation, left: (9) Diabetes type I: Has history of type 1 diabetes in the chart Blood sugar has been high and especially remaining high with use of steroid Appreciate pharmacy input and recommendation Has been getting intravenous insulin for tight control of blood pressure (10) CKD (chronic kidney disease) stage 3, GFR 30-59 ml/min: Will monitor PRP DVT prophylaxis On Coumadin Admission and Anticipated Discharge Date Admission Date: October 10, 2020 Subjective 10/11/2020 The patient was seen and examined in telemetry unit This is his fourth admission since 09/09/2020 Was brought in this time with increasing shortness of breath and desaturation Has been feeling much better since admission Denies any chest pain and/or palpitation, fever or chills, any abdominal pain nausea and or vomiting Review of Systems Review of Systems: All systems reviewed and are unremarkable except as noted below Respiratory: + cough and + dyspnea Cardiovascular: no chest pain, no palpitations and no edema Physical Exam Physical Exam: Lying in bed with mild to moderate shortness of breath Constitutional: well developed, well nourished, + ill appearing and + obese Eyes: PERRL, conjunctivae normal, anicteric sclerae ENMT: external ear and nose normal, oropharynx normal Neck: trachea midline, no thyromegaly Respiratory: + respiratory distress (Mild shortness of breath at rest); does not use accessory muscles Auscultation: + diminished lung sounds, + crackles (Bibasilar crackles) and + wheezes Can communicate normally Cardiovascular: Rate/Rhythm: regular rate, regular rhythm and + tachycardic Heart Sounds: no murmur Extremities: + edema (Trace edema bilaterally) Gastrointestinal (Abdomen): Inspection/Auscultation: normal bowel sounds; abdomen not distended Percussion/Palpation: abdomen soft; abdomen nontender Musculoskeletal: No acute arthritis in any joint Neurologic: Alert, awake and oriented x3. Generally weak Psychiatric: A+Ox3, euthymic affect Lymphatic: no cervical or axillary lymphadenopathy Results & Data Results & Data ([facility]) Vital Signs (Past 12 Hours) Vital Signs Temp Pulse Pulse Resp BP Pulse Ox 10/11/20 13:03 84 20 97 10/11/20 11:03 36.5 C 93 H 20 103/64 100 10/11/20 07:57 116 H 10/11/20 07:26 77 20 95 10/11/20 06:58 36.7 C 108 H 20 108/77 100 10/11/20 04:42 96 H 10/11/20 03:36 36.7 C 101 H 16 121/78 100 Laboratory Results Short CBC 10/10/20 10/11/20 Range/Units 19:55 05:27 WBC 7.36 7.52 (4.8-10.8) K/uL Hgb 8.8 L 8.8 L (14.0-18.0) g/dL Hct 29.1 L 29.0 L (42-52) % Plt Count 338 348 (130-400) K/uL BMP 10/10/20 10/11/20 19:55 05:27 Sodium 138 137 Potassium 4.1 4.9 D Chloride 100 101 Carbon Dioxide 32 30 BUN 24 H 26 H Creatinine 1.30 1.32 Glucose 78 237 H Calcium 8.7 7.8 L Cardiac Enzymes 10/10/20 10/11/20 Range/Units 19:55 05:27 Troponin I 0.023 < 0.015 (0-0.045) ng/ml Liver Function 10/10/20 Range/Units 19:55 Total Bilirubin 0.4 (0.2-1) mg/dl AST 18 (15-37) U/L ALT 17 (12-78) U/L Alkaline Phosphatase 133 H (45-117) U/L Albumin 1.7 L (3.4-5.0) gm/dl Urine 10/10/20 Range/Units 19:55 Urine Color Yellow Urine Appearance Clear (Clear) Urine pH 5.0 (4.5-7.5) Ur Specific [place] 1.017 (1.000-1.030) Urine Protein Negative (Negative) Urine Glucose (UA) Negative (Negative) Medications Administered Current Inpatient Medications Acetaminophen (Acetaminophen 325 Mg Tab) 650 mg PO Q4H PRN PRN Reason: Pain or Fever Stop: 11/09/20 23:56 Calamine/Phenol (Menthol-Zinc Oxide 360 Appln/120 Gm Tube) 1 appln EXT Q6H PRN PRN Reason: SKIN IRRITATION Stop: 11/10/20 00:44 Dextrose (Dextrose 50% 50 Ml Syringe) 25 - 50 ml IV UD PRN; Protocol PRN Reason: Hypoglycemia Protocol Stop: 11/10/20 01:29 Digoxin (Digoxin 0.125 Mg Tab) 0.125 mg PO MoWeFr@0900 [facility] Stop: 11/10/20 08:59 Last Admin: 10/11/20 07:57 Dose: 0.125 mg Documented by: Fluticasone Propionate (Fluticasone Propionate Na Spr 16 Gm Btl) 2 sprays NA DAILY [facility] Stop: 11/10/20 08:59 Last Admin: 10/11/20 07:56 Dose: 2 sprays Documented by: Fluticasone/Vilanterol (Fluticasone/Vilanterol 200/25mcg 14 Puffs/Inhaler) 1 puffs INH DAILY [facility] Stop: 11/11/20 08:59 Glucagon (Glucagon For Inj 1 Mg Vial) 1 mg IM UD PRN; Protocol PRN Reason: Hypoglycemia Protocol Stop: 11/10/20 01:29 Glucose (Glucose 40% Gel 15 Gm Tube) 15 - 30 gm PO UD PRN; Protocol PRN Reason: Hypoglycemia Protocol Stop: 11/10/20 01:29 Glucose (Glucose 10 Tabs/Tube) 4 - 8 tabs PO UD PRN; Protocol PRN Reason: Hypoglycemia Protocol Stop: 11/10/20 01:29 Guaifenesin (Guaifenesin 600 Mg Tabcr) 600 mg PO Q12H PRN PRN Reason: Congestion Stop: 11/09/20 23:56 Doxycycline Hyclate 100 mg/ (Dextrose) 110 mls @ 50 mls/hr IV Q12H [facility] Stop: 10/18/20 00:14 Last Admin: 10/11/20 13:10 Dose: 50 mls/hr Documented by: Cefepime HCl 2,000 mg/ Syringe 20 mls @ 5 mls/min IV Q12H [facility]; Protocol Stop: 10/18/20 00:14 Last Admin: 10/11/20 13:10 Dose: 5 mls/min Documented by: Furosemide 40 mg/ Syringe 4 mls @ 4 mls/min IV DAILY [facility] Stop: 11/10/20 08:59 Last Admin: 10/11/20 07:25 Dose: 4 mls/min Documented by: Insulin Human Regular 250 (units/ Sodium Chloride) 250 mls @ 3.5 mls/hr IV .Q24H [facility]HEL; Protocol Stop: 11/10/20 14:14 Last Admin: 10/11/20 14:39 Dose: 3.5 units/hr, 3.5 mls/hr Documented by: Insulin Aspart (Insulin Aspart 100 Units/Ml 3 Ml Pen) 0 units SC ACHS [facility] Stop: 11/10/20 16:29 Insulin Glargine (Insulin Glargine Solostar 100 Units/Ml 3 Ml Pen) 22 units SQ QAM [facility] Stop: 11/10/20 08:59 Last Admin: 10/11/20 08:00 Dose: 22 units Documented by: Ipratropium [place] (Ipratropium [place] Neb Soln 0.02% 2.5 Ml Vial) 0.5 mg INH Q6R [facility] Stop: 11/10/20 00:59 Last Admin: 10/11/20 13:02 Dose: 0.5 mg Documented by: Ipratropium [place] (Ipratropium [place] Neb Soln 0.02% 2.5 Ml Vial) 0.5 mg INH Q4R PRN PRN Reason: Shortness Of Breath Or Wheezing Stop: 11/10/20 06:44 Levalbuterol HCl (Levalbuterol 1.25mg/0.5ml Neb) 1.25 mg INH Q6R [facility] Stop: 11/10/20 00:59 Last Admin: 10/11/20 13:03 Dose: 1.25 mg Documented by: Levalbuterol HCl (Levalbuterol 1.25mg/0.5ml Neb) 1.25 mg INH Q4R PRN PRN Reason: Shortness Of Breath Or Wheezing Stop: 11/10/20 06:44 Loratadine (Loratadine 10 Mg Tab) 10 mg PO DAILY PRN PRN Reason: Allergy Symptoms Stop: 11/10/20 00:28 Metoprolol Tartrate (Metoprolol Tartrate 50 Mg Tab) 50 mg PO BID [facility] Stop: 11/10/20 00:00 Last Admin: 10/11/20 07:57 Dose: 50 mg Documented by: Metoprolol Tartrate (Metoprolol Tartrate 1 Mg/Ml Vial) 2.5 mg IV Q6 PRN PRN Reason: Tachycardia Stop: 11/10/20 05:59 Last Admin: 10/11/20 00:19 Dose: 2.5 mg Documented by: Miscellaneous (Carbohydrates For Hypoglycemia ) 15 - 30 gm PO UD PRN PRN Reason: Hypoglycemia Treatment Stop: 11/10/20 01:29 Miscellaneous Information (Cefepime Consult Active) 1 ea N/A UD PRN PRN Reason: Consult Stop: 11/10/20 00:07 Miscellaneous Information (Pharmacy Glycemic Mgmt Consult) 1 ea N/A UD PRN PRN Reason: Consult Stop: 11/10/20 13:55 Nitroglycerin (Nitroglycerin Sl 0.4 Mg/Tab Tab) 0.4 mg SL UD PRN PRN Reason: Chest Pain Stop: 11/09/20 23:56 Prednisone (Prednisone 20 Mg Tab) 40 mg PO DAILY [facility] Stop: 11/11/20 08:59 Simvastatin (Simvastatin 20 Mg Tab) 20 mg PO QDD [facility] Stop: 11/10/20 16:29 Tamsulosin HCl (Tamsulosin Hcl 0.4 Mg Cap) 0.4 mg PO HS [facility] Stop: 11/10/20 20:59 Umeclidinium [place] (Umeclidinium [place] 62.5mcg/Blister 7 Puffs/Inhaler) 1 puffs INH DAILY [facility] Stop: 11/11/20 08:59 Warfarin Sodium (Warfarin Sod 2.5 Mg Tab) 2.5 mg PO Mo@1600 [facility] Stop: 11/10/20 15:59 Warfarin Sodium (Warfarin Sod 1.25 Mg Tab) 1.25 mg PO SuTuWeThFrSa@1600 [facility] Stop: 11/11/20 15:59
[2020-10-11] MEDS ORDERED: WARFARIN SOD 2.5 MG TAB PO SCH (16:00)
[2020-10-11] MEDS: SIMVASTATIN 20 MG TAB PO SCH (16:57)
[2020-10-11] MEDS: TAMSULOSIN HCL 0.4 MG CAP PO SCH (20:53)
[2020-10-12] MEDS: LEVALBUTEROL 1.25MG/0.5ML NEB INH SCH ×4 (01:06→19:22)
[2020-10-12] MEDS: IPRATROPIUM BROMIDE NEB SOLN 0.02% 2.5 ML VIAL INH SCH ×4 (01:06→19:22)
[2020-10-12 06:48] LABS: Basophils # (auto) 0.01 K/uL (0-0.2); Basophils % (auto) 0.1 %; Hematocrit (blood only) 27.8 % (42-52); Hemoglobin 8.3 g/dL (14.0-18.0); Immature Granulocytes # (auto) 0.05 K/uL (0.00-0.02); Immature Granulocytes % (auto) 0.3 %; Lymphocytes # (auto) 0.71 K/uL (1.2-3.4); Lymphocytes % (auto) 4.5 %; Mean Corpuscular Hemoglobin 25.2 pg (25-34); Mean Corpuscular Hgb Conc 29.9 g/dL (32-36); Mean Corpuscular Volume 84.5 fL (80-100); Mean Platelet Volume 9.3 fL (7.4-10.4); Monocytes # (auto) 0.68 K/uL (0.11-0.59); Monocytes % (auto) 4.3 %; Neutrophils # (auto) 14.38 K/uL (1.4-6.5); Neutrophils % (auto) 90.8 %; Platelet Count 364 K/uL (130-400); RDW Coefficient of Variation 16.6 % (11.5-14.5); RDW Standard Deviation 51.2 fL (36.4-46.3); Red Blood Count 3.29 M/uL (4.7-6.1); White Blood Count 15.83 K/uL (4.8-10.8)
[2020-10-12 07:08] LABS: INR 4.3 (0.9-1.1); Prothrombin Time 38.7 Seconds (9.0-12.0)
[2020-10-12 07:21] LABS: BUN Creatinine Ratio 33.7 (10-20); Calcium 8.5 mg/dl (8.5-10.1); Creatinine Clr Calc Pharmacy 53.6 ml/min; Est GFR (African American) 61.2 ml/min; Est GFR (Non-African American) 52.8 ml/min; Magnesium 2.1 mg/dl (1.8-2.4); Phosphorus 3.6 mg/dl (2.5-4.9); Potassium 4.5 mmol/L (3.5-5.1)
[2020-10-12] MEDS: INSULIN ASPART 100 UNITS/ML 3 ML PEN SC SCH ×4 (07:54→20:58)
[2020-10-12] MEDS: FUROSEMIDE 40 MG in SYRINGE 0 ML IV SCH (07:59)
[2020-10-12] MEDS: METOPROLOL TARTRATE 50 MG TAB PO SCH ×2 (08:00→20:45)
[2020-10-12] MEDS: FLUTICASONE PROPIONATE NA SPR 16 GM BTL SCH (08:00)
[2020-10-12] MEDS: INSULIN GLARGINE SOLOSTAR 100 UNITS/ML 3 ML PEN SQ SCH (08:00)
[2020-10-12] MEDS: FLUTICASONE/VILANTEROL 200/25MCG 14 PUFFS/INHALER INH SCH (08:01)
[2020-10-12] MEDS: UMECLIDINIUM BROMIDE 62.5MCG/BLISTER 7 PUFFS/INHALER INH SCH (08:01)
[2020-10-12] MEDS: predniSONE 20 MG TAB PO SCH (08:01)
[2020-10-12] MEDS ORDERED: INSULIN HUMAN NPH SC SCH (09:00)
--- NOTE | 2020-10-12 09:05 | Pharmacy Report ---
Pharmacy Glycemic Short Note 2 - Date of Service October 12, 2020 - Glycemic Short BSG Results (Last 24 hours): 10/11/20 10/11/20 10/11/20 11:25 13:59 15:50 Glucose POC Glucose 412 H* 457 H* 348 H* 10/11/20 10/11/20 10/11/20 16:50 17:52 18:50 Glucose POC Glucose 310 H* 263 H 225 H 10/11/20 10/11/20 10/11/20 19:48 20:52 22:59 Glucose POC Glucose 188 H 162 H 111 H 10/12/20 10/12/20 10/12/20 00:08 01:06 02:05 Glucose POC Glucose 113 H 102 H 106 H 10/12/20 10/12/20 10/12/20 02:59 04:20 05:08 Glucose POC Glucose 143 H 118 H 95 10/12/20 10/12/20 10/12/20 06:14 06:19 07:18 Glucose 81 POC Glucose 88 134 H OUTPATIENT ANTIDIABETIC REGIMEN: * Lantus 22 units SC qAM * Novolog 3-4 times daily SSI up to 80 units/day * HbA1c: 7.6% (10/11/20) ASSESSMENT: 10/12 * BSGs trended down nicely yesterday with insulin infusion * Successfully transitioned off of insulin drip this morning * BSG before breakfast of 134 mg/dL * Will give home basal dose + NPH dose to help cover effects of prednisone (will be slightly conservative with first dose of NPH in light of T1DM) * Maintain aggressive Novolog parameters * Unfortunately, lunch BSG of 379 mg/dL * Will add additional NPH dose to equal 0.4 unit/kg dose to cover prednisone and give one-time IV insulin bolus 10/11: * JIA is an 80 year old male with T1DM well known to pharmacy glycemic service * Recently discharged on 10/08/20 * BSGs were low at time of admission, 66 mg/dL * Received Solu-medrol 125 mg IV x 1 last evening and 40 mg IV x 1 today * Switched to prednisone 40 mg PO daily starting tomorrow morning * BSGs today of 305 mg/dL and 412 mg/dL * Received home Lantus dose of 22 units this morning and 37 units of Novolog so far today * BSG recheck for 457 mg/dL at time of pharmacy consult * Will initiate insulin infusion and give additional basal dose this afternoon to help cover steroids PLAN FOR INPATIENT GLYCEMIC CONTROL: * IV insulin infusion discontinued * Basal insulin * Lantus 22 units SC qAM (home dose) * NPH 20 units SC daily with prednisone, NPH 15 units SC x 1 with lunch to equal ~0.4 unit/kg * Bolus insulin * NovoLog per scale ACHS or Q6hrs while NPO * Goal Range: Low 110 mg/dL - High 140 mg/dL * Correction Factor: 20 mg/dL/unit * Nutritional / Prandial insulin per carb ratio of 1 unit per 5 grams CHO co nsumed * Overnight checks at 00,04 with same parameters PLAN FOR DISCHARGE: * A1c of 7.6% is reasonable for patient given age and comorbidities and is also much improved from earlier this year * Reasonable to continue home regimen, provided patient is not experiencing hypoglycemia as an outpatient
[2020-10-12] MEDS ORDERED: INSULIN HUMAN NPH SC ONE (11:45)
[2020-10-12] MEDS ORDERED: INSULIN HUMAN REGULAR PER UNIT 5 UNITS in SYRINGE 4.95 ML IV ONE (12:00)
[2020-10-12] MEDS: CEFEPIME 2,000 MG in SYRINGE 0 ML IV SCH (12:19)
[2020-10-12] MEDS: DOXYCYCLINE HYCLATE 100 MG in DEXTROSE 5% 100 ML IV SCH (12:19)
[2020-10-12] MEDS ORDERED: INSULIN HUMAN REGULAR PER UNIT 4 UNITS in SYRINGE 3.96 ML IV ONE (13:45)
--- NOTE | 2020-10-12 14:27 | Hospitalist Progress Note ---
Date of Service October 12, 2020 Assessment & Plan (1) COPD exacerbation: Has severe pulmonary disease as mentioned below and requiring oxygen to maintain saturation Presented with increasing shortness of breath and decreasing saturation Has mild COPD exacerbations Has been getting prednisone, nebulized bronchodilator and doxycycline IV Appreciate pulmonary input and recommendation for Bactrim as an outpatient for prophylaxis We'll continue current management as recommended by pulmonary medicine Palliative care was consulted at some point to define goal of care He remains full code and full management will be continued for now His respiratory status remains stable He wants to participate in physical therapy but is not sure how far he can do things for himself and wants to go home if at all possible (2) Left displaced femoral neck fracture: Admitted on 09/09/2020 with fall and fracture Repaired and went for rehab Fell again with dislocation recently and was sent to rehab on of this month following repositioning of the left hip Back to the hospital with increasing shortness of breath as above He wants to do more physical activity but does not know how far he can go with his lung condition Will ask for PT and OT evaluation (3) Shortness of breath: (4) Pulmonary fibrosis: (5) Acute on chronic respiratory failure: (6) Acute on chronic heart failure with preserved ejection fraction: No definitive signs of fluid overload except chest x-ray finding which is equivocal Denies any increasing leg swelling Appreciate cardiology input and recommendation Has been getting intravenous Lasix for now Does not have any edema, discussed with repair table operator he can have more Lasix if that helps him (7) Atrial fibrillation with rapid ventricular response: Atrial fibrillation on anticoagulation Has been getting beta-chiquita to control rate Rate is minimally elevation which may be contributed by use of bronchodilators and apprehension secondary to increasing shortness of breath Appreciate cardiology input and recommendation (8) Hip dislocation, left: (9) Diabetes type I: Has history of type 1 diabetes in the chart Blood sugar has been high and especially remaining high with use of steroid Appreciate pharmacy input and recommendation Has been getting intravenous insulin for tight control of blood pressure (10) CKD (chronic kidney disease) stage 3, GFR 30-59 ml/min: Will monitor PRP DVT prophylaxis On Coumadin-INR is high at 4.3. We will hold Coumadin for today Admission and Anticipated Discharge Date Admission Date: October 10, 2020 Subjective 10/11/2020 The patient was seen and examined in telemetry unit This is his fourth admission since 09/09/2020 Was brought in this time with increasing shortness of breath and desaturation Has been feeling much better since admission Denies any chest pain and/or palpitation, fever or chills, any abdominal pain nausea and or vomiting 10/12/2020 The patient was seen and examined in telemetry unit He complains to have minimal shortness of breath at rest with some cough He wants to do more physical therapy, wants to go home if possible but not sure if he can do his usual ADL S without much impairment due to shortness of breath Denies any leg swelling, any chest pain or palpitation Review of Systems Review of Systems: All systems reviewed and are unremarkable except as noted below Respiratory: + cough and + dyspnea Cardiovascular: + dyspnea; no chest pain and no edema Physical Exam Physical Exam: Lying in bed with mild to moderate shortness of breath Constitutional: well developed, well nourished, + ill appearing and + obese Eyes: PERRL, conjunctivae normal, anicteric sclerae ENMT: external ear and nose normal, oropharynx normal Neck: trachea midline, no thyromegaly Respiratory: + respiratory distress (Mild shortness of breath at rest); does not use accessory muscles Auscultation: + diminished lung sounds, + crackles (Bibasilar crackles) and + wheezes Cardiovascular: Rate/Rhythm: regular rate, regular rhythm and + tachycardic Heart Sounds: no murmur Extremities: + edema (Trace edema bilaterally) Gastrointestinal (Abdomen): Inspection/Auscultation: normal bowel sounds; abdomen not distended Percussion/Palpation: abdomen soft; abdomen nontender Musculoskeletal: Has left hip pain with movement Neurologic: Alert, awake and oriented x3 Psychiatric: A+Ox3, euthymic affect Lymphatic: no cervical or axillary lymphadenopathy Results & Data Results & Data ([facility]) Vital Signs (Past 12 Hours) Vital Signs Temp Pulse Pulse Resp BP Pulse Ox 10/12/20 13:23 85 18 97 10/12/20 12:14 36.3 C L 116 H 20 108/64 99 10/12/20 08:00 115 H 10/12/20 07:53 36.4 C L 117 H 20 124/73 96 10/12/20 07:27 112 H 18 97 10/12/20 03:12 36.6 C 108 H 18 121/71 97 Laboratory Results Short CBC 10/12/20 Range/Units 06:14 WBC 15.83 H (4.8-10.8) K/uL Hgb 8.3 L (14.0-18.0) g/dL Hct 27.8 L (42-52) % Plt Count 364 (130-400) K/uL BMP 10/12/20 06:14 Sodium 136 Potassium 4.5 Chloride 102 Carbon Dioxide 26 BUN 43 H D Creatinine 1.26 Glucose 81 Calcium 8.5 Medications Administered Current Inpatient Medications Acetaminophen (Acetaminophen 325 Mg Tab) 650 mg PO Q4H PRN PRN Reason: Pain or Fever Stop: 11/09/20 23:56 Calamine/Phenol (Menthol-Zinc Oxide 360 Appln/120 Gm Tube) 1 appln EXT Q6H PRN PRN Reason: SKIN IRRITATION Stop: 11/10/20 00:44 Dextrose (Dextrose 50% 50 Ml Syringe) 25 - 50 ml IV UD PRN; Protocol PRN Reason: Hypoglycemia Protocol Stop: 11/10/20 01:29 Digoxin (Digoxin 0.125 Mg Tab) 0.125 mg PO MoWeFr@0900 [facility] Stop: 11/10/20 08:59 Last Admin: 10/11/20 07:57 Dose: 0.125 mg Documented by: Fluticasone Propionate (Fluticasone Propionate Na Spr 16 Gm Btl) 2 sprays NA DAILY [facility] Stop: 11/10/20 08:59 Last Admin: 10/12/20 08:00 Dose: 2 sprays Documented by: Fluticasone/Vilanterol (Fluticasone/Vilanterol 200/25mcg 14 Puffs/Inhaler) 1 puffs INH DAILY [facility] Stop: 11/11/20 08:59 Last Admin: 10/12/20 08:01 Dose: 1 puffs Documented by: Glucagon (Glucagon For Inj 1 Mg Vial) 1 mg IM UD PRN; Protocol PRN Reason: Hypoglycemia Protocol Stop: 11/10/20 01:29 Glucose (Glucose 40% Gel 15 Gm Tube) 15 - 30 gm PO UD PRN; Protocol PRN Reason: Hypoglycemia Protocol Stop: 11/10/20 01:29 Glucose (Glucose 10 Tabs/Tube) 4 - 8 tabs PO UD PRN; Protocol PRN Reason: Hypoglycemia Protocol Stop: 11/10/20 01:29 Guaifenesin (Guaifenesin 600 Mg Tabcr) 600 mg PO Q12H PRN PRN Reason: Congestion Stop: 11/09/20 23:56 Doxycycline Hyclate 100 mg/ (Dextrose) 110 mls @ 50 mls/hr IV Q12H [facility] Stop: 10/18/20 00:14 Last Admin: 10/12/20 12:19 Dose: 50 mls/hr Documented by: Furosemide 40 mg/ Syringe 4 mls @ 4 mls/min IV DAILY [facility] Stop: 11/10/20 08:59 Last Admin: 10/12/20 07:59 Dose: 4 mls/min Documented by: Insulin Aspart (Insulin Aspart 100 Units/Ml 3 Ml Pen) 0 units SC ACHS [facility] Stop: 11/11/20 07:29 Last Admin: 10/12/20 12:17 Dose: 21 units Documented by: Insulin Aspart (Insulin Aspart 100 Units/Ml 3 Ml Pen) 0 units SC 0000,0400 [facility] Stop: 10/13/20 04:01 Insulin Glargine (Insulin Glargine Solostar 100 Units/Ml 3 Ml Pen) 22 units SQ QAM [facility] Stop: 11/10/20 08:59 Last Admin: 10/12/20 08:00 Dose: 22 units Documented by: Insulin Human NPH (Insulin Human Nph) 20 units SC DAILY [facility] Stop: 11/11/20 08:59 Last Admin: 10/12/20 08:01 Dose: 20 units Documented by: Ipratropium [place] (Ipratropium [place] Neb Soln 0.02% 2.5 Ml Vial) 0.5 mg INH Q6R [facility] Stop: 11/10/20 00:59 Last Admin: 10/12/20 13:21 Dose: 0.5 mg Documented by: Ipratropium [place] (Ipratropium [place] Neb Soln 0.02% 2.5 Ml Vial) 0.5 mg INH Q4R PRN PRN Reason: Shortness Of Breath Or Wheezing Stop: 11/10/20 06:44 Levalbuterol HCl (Levalbuterol 1.25mg/0.5ml Neb) 1.25 mg INH Q6R [facility] Stop: 11/10/20 00:59 Last Admin: 10/12/20 13:21 Dose: 1.25 mg Documented by: Levalbuterol HCl (Levalbuterol 1.25mg/0.5ml Neb) 1.25 mg INH Q4R PRN PRN Reason: Shortness Of Breath Or Wheezing Stop: 11/10/20 06:44 Loratadine (Loratadine 10 Mg Tab) 10 mg PO DAILY PRN PRN Reason: Allergy Symptoms Stop: 11/10/20 00:28 Metoprolol Tartrate (Metoprolol Tartrate 50 Mg Tab) 50 mg PO BID [facility] Stop: 11/10/20 00:00 Last Admin: 10/12/20 08:00 Dose: 50 mg Documented by: Metoprolol Tartrate (Metoprolol Tartrate 1 Mg/Ml Vial) 2.5 mg IV Q6 PRN PRN Reason: Tachycardia Stop: 11/10/20 05:59 Last Admin: 10/11/20 00:19 Dose: 2.5 mg Documented by: Miscellaneous (Carbohydrates For Hypoglycemia ) 15 - 30 gm PO UD PRN PRN Reason: Hypoglycemia Treatment Stop: 11/10/20 01:29 Miscellaneous Information (Pharmacy Glycemic Mgmt Consult) 1 ea N/A UD PRN PRN Reason: Consult Stop: 11/10/20 13:55 Nitroglycerin (Nitroglycerin Sl 0.4 Mg/Tab Tab) 0.4 mg SL UD PRN PRN Reason: Chest Pain Stop: 11/09/20 23:56 Prednisone (Prednisone 20 Mg Tab) 40 mg PO DAILY [facility] Stop: 11/11/20 08:59 Last Admin: 10/12/20 08:01 Dose: 40 mg Documented by: Simvastatin (Simvastatin 20 Mg Tab) 20 mg PO QDD [facility] Stop: 11/10/20 16:29 Last Admin: 10/11/20 16:57 Dose: 20 mg Documented by: Tamsulosin HCl (Tamsulosin Hcl 0.4 Mg Cap) 0.4 mg PO HS [facility] Stop: 11/10/20 20:59 Last Admin: 10/11/20 20:53 Dose: 0.4 mg Documented by: Umeclidinium [place] (Umeclidinium [place] 62.5mcg/Blister 7 Puffs/Inhaler) 1 puffs INH DAILY [facility] Stop: 11/11/20 08:59 Last Admin: 10/12/20 08:01 Dose: 1 puffs Documented by: Warfarin Sodium (Warfarin Sod 2.5 Mg Tab) 2.5 mg PO Mo@1600 [facility] Stop: 11/10/20 15:59 Warfarin Sodium (Warfarin Sod 1.25 Mg Tab) 1.25 mg PO SuTuWeThFrSa@1600 [facility] Stop: 11/11/20 15:59
--- NOTE | 2020-10-12 15:37 | Pulmonology Progress Note ---
Date of Service October 12, 2020 Assessment & Plan (1) COPD exacerbation: 80-year-old male presenting to the hospital due to shortness of breath. He has a history of mixed obstructive and restrictive lung disease. Shortness of breath: Continue prednisone taper over the course of 2 to 3 weeks. Recommend initiating Bactrim prophylaxis every Sunday, Sunday and Sunday for 3 to 4 weeks while on the increased dose of prednisone. Agree with diuretic therapy as he does have a component of acute on chronic diastolic CHF. His echo results from March 2020 are noted. He has been tolerant of the Breo Ellipta and Incruse inhaler this admission. I do not think that he has any significant adverse reaction from this medication and the allergy of "joint pain" can be removed from his allergy list. Hyperglycemia: I have discontinued the IV infusion of doxycycline as this was mixed with dextrose. This was discussed with the bedside nurse. Continue p.o. doxycycline for total of 5 days. Can decrease prednisone to 30 mg tomorrow which should also help with a hyperglycemia. Pharmacy is managing his insulin regimen. I do not think that he needs to remain in the hospital any longer from a pulmonary perspective. Again, I discussed managing expectations with the patient. A palliative care consultation should be considered. Patient should follow-up in the pulmonary clinic. (2) Pulmonary fibrosis: (3) Respiratory failure: Chronicity: acute Respiratory failure complication: hypoxia and hypercapnia Qualified Code(s): J96.01 - Acute respiratory failure with hypoxia; J96.02 - Acute respiratory failure with hypercapnia (4) Shortness of breath: (5) Congestive heart failure: (6) Hyperglycemia: Admission and Anticipated Discharge Date Admission Date: October 10, 2020 Subjective Patient seen and examined this afternoon. He is upset and would like to go home. He does not want to go to rehab. He reiterated this on numerous occasions. He notes that he has chronic shortness of breath and that he has had no significant change in his symptoms in the last day or so. He does feel that his symptoms have improved since hospital admission. He still complains of a raspy cough at times. He denies any chest pain. Review of Systems Review of Systems: All systems reviewed & are unremarkable except as noted in HPI & below Physical Exam Constitutional: + obese, + frail appearing and cooperative Neck: normal visual inspection Respiratory: normal respiratory effort Auscultation: + diminished lung sounds; no wheezes Cardiovascular: RRR, no murmur, no edema Gastrointestinal (Abdomen): normal bowel sounds, soft, nontender, no hepatosplenomegaly Musculoskeletal: no cyanosis or clubbing, extremities motor strength 5/5 Skin: no rashes, warm and dry Neurologic: PERRL, EOMI, accommodation nl, no face palsy, no dysarthria Psychiatric: A+Ox3, euthymic affect Results & Data Results & Data ([facility]) Vital Signs (Past 12 Hours) Vital Signs Temp Pulse Pulse Resp BP Pulse Ox 10/12/20 13:23 85 18 97 10/12/20 12:14 97.3 F L 116 H 20 108/64 99 10/12/20 08:00 115 H 10/12/20 07:53 97.5 F L 117 H 20 124/73 96 10/12/20 07:27 112 H 18 97 PFTs in 2019 demonstrated a mixed obstructive and restrictive pattern with an FEV1 of 53%. TLC 80%. DLCO 62% PG Care Time/CCT Total # of Minutes Spent Total Time Spent with Patient: Total time spent is greater than 50% in coordination of care (as documented) at patient's floor/unit and/or counseling patient: Coding Level of Care Code 67617 Subseq Hosp Care Lvl 3 Diagnoses COPD exacerbation J44.1 Pulmonary fibrosis J84.10 Respiratory failure J96.01; J96.02 Chronicity: acute Respiratory failure complication: hypoxia and hypercapnia Shortness of breath R06.02 Congestive heart failure I50.9 Hyperglycemia R73.9
[2020-10-12] MEDS ORDERED: WARFARIN SOD 1.25 MG TAB PO SCH (16:00)
[2020-10-12] MEDS: SIMVASTATIN 20 MG TAB PO SCH (16:52)
[2020-10-12] MEDS: METOPROLOL TARTRATE 1 MG/ML VIAL IV PRN (20:44)
[2020-10-12] MEDS: DOXYCYCLINE HYCLATE 100 MG CAP PO SCH (20:45)
[2020-10-12] MEDS: TAMSULOSIN HCL 0.4 MG CAP PO SCH (20:45)
[2020-10-12] MEDS ORDERED: SODIUM CHLORIDE 0.65% NA SOLN 45 ML (OCEAN) PRN (21:24)
[2020-10-12] MEDS ORDERED: METOPROLOL TARTRATE 1 MG/ML VIAL IV STA (21:35)
[2020-10-12] MEDS ORDERED: STAT IV Infusion **Titration per Protocol STA (22:09)
[2020-10-12] MEDS ORDERED: dilTIAZem HCl 5 MG/ML 5 ML VIAL IV STA (22:09)
[2020-10-12] MEDS ORDERED: dilTIAZem HCL 125 MG in DEXTROSE 5% 100 ML IV SCH (22:15)
[2020-10-13] MEDS: INSULIN ASPART 100 UNITS/ML 3 ML PEN SC SCH ×6 (00:16→20:36)
[2020-10-13] MEDS: IPRATROPIUM BROMIDE NEB SOLN 0.02% 2.5 ML VIAL INH SCH ×4 (00:53→19:50)
[2020-10-13] MEDS: LEVALBUTEROL 1.25MG/0.5ML NEB INH SCH ×4 (00:53→19:51)
[2020-10-13 07:13] LABS: Hematocrit (blood only) 29.2 % (42-52); Hemoglobin 8.8 g/dL (14.0-18.0); Immature Granulocytes # (auto) 0.04 K/uL (0.00-0.02); Immature Granulocytes % (auto) 0.3 %; Lymphocytes # (auto) 0.95 K/uL (1.2-3.4); Lymphocytes % (auto) 6.2 %; Mean Corpuscular Hemoglobin 25.9 pg (25-34); Mean Corpuscular Hgb Conc 30.1 g/dL (32-36); Mean Corpuscular Volume 85.9 fL (80-100); Mean Platelet Volume 9.5 fL (7.4-10.4); Monocytes # (auto) 0.97 K/uL (0.11-0.59); Monocytes % (auto) 6.3 %; Neutrophils # (auto) 13.36 K/uL (1.4-6.5); Neutrophils % (auto) 87.2 %; Platelet Count 394 K/uL (130-400); RDW Coefficient of Variation 16.7 % (11.5-14.5); RDW Standard Deviation 52.5 fL (36.4-46.3); White Blood Count 15.32 K/uL (4.8-10.8)
[2020-10-13] MEDS: CARBOHYDRATES FOR HYPOGLYCEMIA PO PRN ×3 (07:15→20:04)
[2020-10-13 07:48] LABS: Prothrombin Time 36.2 Seconds (9.0-12.0)
[2020-10-13 07:51] LABS: BUN Creatinine Ratio 35.2 (10-20); Calcium 8.8 mg/dl (8.5-10.1); Est GFR (African American) 53.4 ml/min; Est GFR (Non-African American) 46.1 ml/min; Magnesium 2.2 mg/dl (1.8-2.4); Phosphorus 3.3 mg/dl (2.5-4.9); Potassium 4.2 mmol/L (3.5-5.1)
[2020-10-13] MEDS: DEXTROSE 50% 50 ML SYRINGE IV PRN ×2 (08:00→20:25)
--- NOTE | 2020-10-13 08:15 | Pharmacy Report ---
Pharmacy Glycemic Short Note 2 - Date of Service October 13, 2020 - Glycemic Short BSG Results (Last 24 hours): 10/12/20 10/12/20 10/12/20 11:39 11:39 12:49 Glucose POC Glucose 403 H* 379 H* 398 H* 10/12/20 10/12/20 10/12/20 13:17 14:23 16:36 Glucose POC Glucose 398 H* 313 H* 202 H 10/12/20 10/12/20 10/13/20 20:08 23:22 04:06 Glucose POC Glucose 151 H 109 H 73 10/13/20 10/13/20 10/13/20 06:22 07:14 07:30 Glucose 51 L* POC Glucose 58 L* 61 L* 10/13/20 07:45 Glucose POC Glucose 70 OUTPATIENT ANTIDIABETIC REGIMEN: * Lantus 22 units SC qAM * Novolog 3-4 times daily SSI up to 80 units/day * HbA1c: 7.6% (10/11/20) ASSESSMENT: 10/13 * BSGs yesterday of 134, 379, 202, 151, and 109 mg/dL * Elevated lunchtime BSG likely due to inadequate breakfast Novolog/NPH to cover prednisone * Novolog tightened yesterday evening - will continue * Fasting BSG of 58 mg/dL this morning (asymptomatic hypoglycemia) - will decrease Lantus ~30% today * Continues on prednisone 40 mg PO daily - continue NPH at ~0.4 unit/kg 10/12 * BSGs trended down nicely yesterday with insulin infusion * Successfully transitioned off of insulin drip this morning * BSG before breakfast of 134 mg/dL * Will give home basal dose + NPH dose to help cover effects of prednisone (will be slightly conservative with first dose of NPH in light of T1DM) * Maintain aggressive Novolog parameters * Unfortunately, lunch BSG of 379 mg/dL * Will add additional NPH dose to equal 0.4 unit/kg dose to cover prednisone and give one-time IV insulin bolus 10/11: * JIA is an 80 year old male with T1DM well known to pharmacy glycemic service * Recently discharged on 10/08/20 * BSGs were low at time of admission, 66 mg/dL * Received Solu-medrol 125 mg IV x 1 last evening and 40 mg IV x 1 today * Switched to prednisone 40 mg PO daily starting tomorrow morning * BSGs today of 305 mg/dL and 412 mg/dL * Received home Lantus dose of 22 units this morning and 37 units of Novolog so far today * BSG recheck for 457 mg/dL at time of pharmacy consult * Will initiate insulin infusion and give additional basal dose this afternoon to help cover steroids PLAN FOR INPATIENT GLYCEMIC CONTROL: * Basal insulin * Lantus 15 units SC qAM (~30% reduction) * NPH 35 units SC daily with prednisone 40 mg PO daily * Bolus insulin * NovoLog per scale ACHS or Q6hrs while NPO * Goal Range: Low 110 mg/dL - High 140 mg/dL * Correction Factor: 15 mg/dL/unit * Nutritional / Prandial insulin per carb ratio of 1 unit per 5 grams CHO consumed PLAN FOR DISCHARGE: * A1c of 7.6% is reasonable for patient given age and comorbidities and is also much improved from earlier this year * Reasonable to continue home regimen, provided patient is not experiencing hypoglycemia as an outpatient
[2020-10-13] MEDS: DOXYCYCLINE HYCLATE 100 MG CAP PO SCH ×2 (08:53→20:10)
[2020-10-13] MEDS: FUROSEMIDE 40 MG in SYRINGE 0 ML IV SCH (08:53)
[2020-10-13] MEDS: predniSONE 20 MG TAB PO SCH (08:54)
[2020-10-13] MEDS: DIGOXIN 0.125 MG TAB PO SCH (08:54)
[2020-10-13] MEDS: METOPROLOL TARTRATE 50 MG TAB PO SCH ×2 (08:54→20:04)
[2020-10-13] MEDS: FLUTICASONE PROPIONATE NA SPR 16 GM BTL SCH (08:55)
[2020-10-13] MEDS: FLUTICASONE/VILANTEROL 200/25MCG 14 PUFFS/INHALER INH SCH (08:58)
[2020-10-13] MEDS: UMECLIDINIUM BROMIDE 62.5MCG/BLISTER 7 PUFFS/INHALER INH SCH (08:58)
[2020-10-13] MEDS ORDERED: INSULIN HUMAN NPH SC SCH (09:00)
[2020-10-13] MEDS ORDERED: INSULIN GLARGINE SOLOSTAR 100 UNITS/ML 3 ML PEN SQ SCH (09:00)
[2020-10-13] MEDS: INSULIN GLARGINE SOLOSTAR 100 UNITS/ML 3 ML PEN SQ SCH (09:18)
--- NOTE | 2020-10-13 11:58 | Hospitalist Progress Note ---
Date of Service October 13, 2020 Assessment & Plan (1) COPD exacerbation: Patient has history of severe pulmonary disease. He does use 2 L of oxygen at baseline. Presented with worsening shortness of breath and hypoxia. Leukocytosis in the setting of prednisone therapy. We will continue with prednisone, bronchodilators and IV doxycycline 100 mg twice daily. Patient had pulmonary medicine input. Recommended Bactrim as an outpatient for prophylaxis. Palliative care was consulted at some point to define goal of care He remains full code and full management will be continued for now He wants to participate in physical therapy but is not sure how far he can do th ings for himself and wants to go home if at all possible. We will attempt to wean down from the oxygen. We will repeat chest x-ray today to follow-up with pleural effusion. Work with PT/OT. (2) Left displaced femoral neck fracture: Admitted on 09/09/2020 with fall and fracture Repaired and went for rehab Fell again with dislocation recently and was sent to rehab on 12th of this month following repositioning of the left hip Back to the hospital with increasing shortness of breath as above He wants to do more physical activity but does not know how far he can go with his lung condition PT/OT has been consulted for further input. (3) Shortness of breath: (4) Pulmonary fibrosis: (5) Acute on chronic respiratory failure: (6) Acute on chronic heart failure with preserved ejection fraction: Patient does not appear to be infected fluid overloaded. Most recent proBNP of 4400. Chest x-ray with some pleural effusion. Patient has been on IV Lasix. Adequate urine output. Will repeat chest x-ray today. To wean down on the oxygen. (7) Atrial fibrillation with rapid ventricular response: Atrial fibrillation on anticoagulation Has been getting beta-chiquita to control rate Rate is minimally elevation which may be contributed by use of bronchodilators and apprehension secondary to increasing shortness of breath Appreciate cardiology input and recommendation (8) Hip dislocation, left: (9) Diabetes type I: Has history of type 1 diabetes in the chart Appreciate pharmacy input and recommendation Has been getting intravenous insulin for tight control of blood pressure. Patient had an episode of hypoglycemia this morning, will touch base with pharmacy for insulin adjustment. Currently on Lantus 15 units, Novolin 35 units daily and sliding scale. (10) CKD (chronic kidney disease) stage 3, GFR 30-59 ml/min: Will monitor PRP DVT prophylaxis On Coumadin-INR is high at 4. Hold coumadin for now. Admission and Anticipated Discharge Date Admission Date: October 10, 2020 Subjective Was hypoglycemic this morning with glucose of 50. Improved with juice. Current ly patient at 4 L of nasal cannula, uses 2 L at baseline. This morning he reports that shortness of breath is improved. Denies any chest pain, palpitations but does report intermittent nonproductive cough. Remains afebrile. Urine output of roughly 1.6 L in the last 24 hours. Review of Systems Review of Systems: All systems reviewed & are unremarkable except as noted in HPI & below Physical Exam Physical Exam: General: A&Ox3 HENT: NCAT, MMM, EOMI Eyes: PERRLA Neck: Supple, normal range of motion CVS: normal rate and rhythm Resp: b/l decreased breath sounds Abdomen: Soft, nondistended and nontender Extremities: Trace lower extremity edema Neuro: face symmetric, no focal deficit Skin: warm and dry, no rashes/lesions/errythema MSK: normal ROM, no joint swelling/erythema Results & Data Results & Data ([facility]) Vital Signs (Past 12 Hours) Vital Signs Temp Pulse Pulse Resp BP Pulse Ox 10/13/20 11:39 36.4 C L 109 H 20 123/81 99 10/13/20 08:54 117 H 10/13/20 07:43 36.3 C L 117 H 20 118/80 98 10/13/20 07:13 112 H 18 98 10/13/20 03:09 96 H 14 96 10/13/20 03:05 36.0 C L 114 H 20 128/82 97 10/13/20 00:53 91 H 91 H 16 96
--- NOTE | 2020-10-13 12:37 | XRay Report ---
XR chest 1V portable CLINICAL HISTORY: f/u effusion COMPARISON STUDY: October 10, 2020 FINDINGS: No no definite pneumothorax is seen however evaluation is limited because bilateral lung apices are o bscured by patient's chin.. Interval improvement/redistribution of bilateral pleural effusion. Interval improvement of previously seen mixed reticular and airspace opacities within bilateral lower lungs likely representing atelectasis/infiltrates. Mediastinal silhouette is stable. Aorta is calcified. Minimal pulmonary vascular congestion, slightly improved since prior.. Osseous structures: Osteopenia. Vertebral bodies are poorly seen. Stable position of left-sided dual-lead pacemaker with battery pack partially obscuring left lung par enchyma. IMPRESSION: 1. Interval improvement/redistribution of bilateral pleural effusion. Also previously seen opacities at bilateral bases are improved which could represent atelectasis/infiltrates. ACT 112: Negative or not required by law. The above report was generated using voice recognition software. It may contain grammatical, syntax o r spelling errors. Electronically signed by: Violetta Preciado DO 10/13/2020 12:36 PM
--- NOTE | 2020-10-13 17:50 | Cardiology Progress Note ---
Date of Service October 13, 2020 Assessment & Plan (1) Shortness of breath: (2) Acute on chronic heart failure with preserved ejection fraction: (3) COPD exacerbation: (4) Rapid atrial fibrillation: Patient with multifactorial shortness of breath, mostly due to COPD exacerbation, perhaps mild superimposed heart failure with preserved ejection fraction. Creatinine has increased to 1.4 today. Discontinue IV furosemide, repeat chemistry panel tomorrow. Depending on chemistry panel results, will likely reintroduce prior to hospital oral torsemide. Atrial fibrillation with mildly elevated ventricular rates noted in the range of 100 to 115 bpm. I do not think this is surprising given his respiratory status. Continue prior to hospital treatment with metoprolol and digoxin. Coumadin on hold for INR of 4. Admission and Anticipated Discharge Date Admission Date: October 10, 2020 Subjective Pt seen in follow up. Believes SOB mildly improved. Results & Data ([facility]) Vital Signs (Past 12 Hours) Vital Signs Temp Pulse Pulse Resp BP Pulse Ox 10/13/20 16:18 114 H 10/13/20 15:35 36.9 C 99 H 18 120/72 94 10/13/20 13:05 93 H 18 98 10/13/20 11:39 36.4 C L 109 H 20 123/81 99 10/13/20 08:54 117 H 10/13/20 07:43 36.3 C L 117 H 20 118/80 98 10/13/20 07:13 112 H 18 98
[2020-10-13] MEDS: TAMSULOSIN HCL 0.4 MG CAP PO SCH (20:10)
[2020-10-14] MEDS: IPRATROPIUM BROMIDE NEB SOLN 0.02% 2.5 ML VIAL INH SCH ×4 (00:21→20:02)
[2020-10-14] MEDS: LEVALBUTEROL 1.25MG/0.5ML NEB INH SCH ×4 (00:21→20:02)
[2020-10-14 06:51] LABS: INR 3.2 (0.9-1.1); Prothrombin Time 29.7 Seconds (9.0-12.0)
[2020-10-14 06:55] LABS: BUN Creatinine Ratio 37.5 (10-20); Calcium 8.9 mg/dl (8.5-10.1); Creatinine Clr Calc Pharmacy 46.3 ml/min; Est GFR (African American) 56.3 ml/min; Est GFR (Non-African American) 48.5 ml/min; Potassium 4.7 mmol/L (3.5-5.1)
[2020-10-14] MEDS: INSULIN ASPART 100 UNITS/ML 3 ML PEN SC SCH ×4 (08:16→21:11)
[2020-10-14] MEDS: INSULIN GLARGINE SOLOSTAR 100 UNITS/ML 3 ML PEN SQ SCH (08:17)
[2020-10-14] MEDS: FLUTICASONE PROPIONATE NA SPR 16 GM BTL SCH (08:19)
[2020-10-14] MEDS: predniSONE 20 MG TAB PO SCH (08:19)
[2020-10-14] MEDS: DOXYCYCLINE HYCLATE 100 MG CAP PO SCH ×2 (08:19→21:07)
[2020-10-14] MEDS: METOPROLOL TARTRATE 50 MG TAB PO SCH ×2 (08:19→21:08)
[2020-10-14] MEDS: UMECLIDINIUM BROMIDE 62.5MCG/BLISTER 7 PUFFS/INHALER INH SCH (08:20)
[2020-10-14] MEDS: FLUTICASONE/VILANTEROL 200/25MCG 14 PUFFS/INHALER INH SCH (08:20)
[2020-10-14] MEDS ORDERED: INSULIN HUMAN NPH SC SCH (09:00)
[2020-10-14] MEDS ORDERED: FUROSEMIDE 40 MG/4 ML VIAL IV ONE (09:40)
[2020-10-14 10:16] LABS: iSTAT Allen Test Pass; iSTAT Arterial Blood Gas HCO3 32 meg/L (19-24); iSTAT Arterial Blood Gas pCO2 38 mmHg (35-46); iSTAT Arterial Blood Gas pH 7.54 (7.35-7.45); iSTAT Arterial Blood Gas pO2 71 mmHg (80-95); iSTAT Carbon Dioxide 33 mmol/L (24-31); iSTAT Site R Radial
[2020-10-14 10:16] LABS: iSTAT Allen Test Pass; iSTAT Arterial Blood Gas HCO3 31 meg/L (19-24); iSTAT Arterial Blood Gas pCO2 44 mmHg (35-46); iSTAT Arterial Blood Gas pH 7.46 (7.35-7.45); iSTAT Arterial Blood Gas pO2 < 32 mmHg (80-95); iSTAT Carbon Dioxide 32 mmol/L (24-31); iSTAT Site L Radial
[2020-10-14] MEDS ORDERED: FUROSEMIDE 40 MG in SYRINGE 0 ML IV STA (10:17)
[2020-10-14 10:37] LABS: Basophils # (auto) 0.01 K/uL (0-0.2); Basophils % (auto) 0.1 %; Hematocrit (blood only) 32.8 % (42-52); Hemoglobin 9.6 g/dL (14.0-18.0); Immature Granulocytes # (auto) 0.04 K/uL (0.00-0.02); Immature Granulocytes % (auto) 0.3 %; Lymphocytes # (auto) 1.31 K/uL (1.2-3.4); Lymphocytes % (auto) 9.2 %; Mean Corpuscular Hemoglobin 25.2 pg (25-34); Mean Corpuscular Volume 86.1 fL (80-100); Mean Platelet Volume 9.2 fL (7.4-10.4); Monocytes # (auto) 1.24 K/uL (0.11-0.59); Monocytes % (auto) 8.7 %; Neutrophils # (auto) 11.61 K/uL (1.4-6.5); Neutrophils % (auto) 81.7 %; Nucleated RBC # (auto) 0.02 K/uL (0-0); Nucleated RBC % (auto) 0.1 %; Platelet Count 478 K/uL (130-400); RDW Coefficient of Variation 16.8 % (11.5-14.5); RDW Standard Deviation 53.2 fL (36.4-46.3); Red Blood Count 3.81 M/uL (4.7-6.1); White Blood Count 14.21 K/uL (4.8-10.8)
[2020-10-14 10:40] LABS: Mean Corpuscular Hgb Conc 29.3 g/dL (32-36)
--- NOTE | 2020-10-14 10:42 | XRay Report ---
SINGLE VIEW CHEST CLINICAL HISTORY: Hypoxia. FINDINGS: An AP, portable, semierect chest radiograph is compared to study dated 10/13/2020 and correl ated with chest CT dated 10/09/2019. The examination is degraded by portable technique and apical lord otic positioning. A 2-lead cardiac pacemaker is unchanged in position. The heart is enlarged noting a therosclerotic calcification of the thoracic aorta. The pulmonary vasculature is noncongested. Emphys delia and chronic interstitial thickening is similar to previous. Postoperative change is noted at the right apex. Calcified pleural plaques are similar to previous. Bibasilar opacities likely represent s carring/atelectasis. There are small pleural effusions with bibasilar consolidation. No pneumothorax is seen. The skeletal structures are osteopenic. The bony thorax is grossly intact. IMPRESSION: 1. Cardiomegaly and cardiac pacemaker. There is no radiographic evidence of congestive failure. 2. Small pleural effusions persist. 3. Emphysema and chronic parenchymal changes as above. ACT 112: Negative or not required by law. Electronically signed by: Arturo Charles M.D. 10/14/2020 10:41 AM
[2020-10-14 10:59] LABS: Troponin I 0.022 ng/ml (0-0.045)
[2020-10-14] MEDS: DEXTROSE 50% 50 ML SYRINGE IV PRN ×2 (11:48→15:05)
[2020-10-14] MEDS ORDERED: CALCIUM CARBONATE 500 MG CHEWABLE TAB PO PRN (11:53)
--- NOTE | 2020-10-14 13:28 | Hospitalist Progress Note ---
Date of Service October 14, 2020 Assessment & Plan (1) COPD exacerbation: Acute on chronic hypoxic respiratory failure: COPD sedation/acute on chronic diastolic heart failure extubation Patient has history of severe pulmonary disease. He does use 2 L of oxygen at baseline. Presented with worsening shortness of breath and hypoxia. Continue prednisone 40 mg daily. Continue doxycycline 100 mg p.o. twice daily daily. Continue bronchodilators. Appreciate pulmonary medicine input. Recommended Bactrim as an outpatient for prophylaxis. This morning patient was found to be in significant distress. Placed on the BiPAP x-ray was ordered as well as a proBNP. Found to be significantly elevated. She was given IV Lasix 40 mg. was updated. (2) Left displaced femoral neck fracture: Admitted on 09/09/2020 with fall and fracture Repaired and went for rehab Fell again with dislocation recently and was sent to rehab on of this month following repositioning of the left hip Continue to work with PT/OT. (3) Shortness of breath: (4) Pulmonary fibrosis: (5) Acute on chronic respiratory failure: (6) Acute on chronic heart failure with preserved ejection fraction: Lasix was held yesterday. Today patient was found to be short of breath. Concern for fluid overload. proBNP is further elevated. Order 1 dose of IV Lasix 40 mg now. Appreciate cardiology input. (7) Atrial fibrillation with rapid ventricular response: Atrial fibrillation on anticoagulation Has been getting beta-chiquita to control rate Rate is minimally elevation which may be contributed by use of bronchodilators and apprehension secondary to increasing shortness of breath Appreciate cardiology input and recommendation (8) Hip dislocation, left: (9) Diabetes type I: Has history of type 1 diabetes in the chart Appreciate pharmacy input and recommendation Has been getting intravenous insulin for tight control of blood pressure. Patient had an episode of hypoglycemia this morning, will touch base with pharmacy for insulin adjustment. Currently on Lantus 15 units, Novolin 35 units daily and sliding scale. (10) CKD (chronic kidney disease) stage 3, GFR 30-59 ml/min: Will monitor PRP Left heel/sacral wound being managed by wound care. DVT prophylaxis On Coumadin-INR is high at 3.2. Hold coumadin for now. Admission and Anticipated Discharge Date Admission Date: October 10, 2020 Subjective Patient was hypoxic this morning and was feeling short of breath. Patient was placed on 15 L mask and continued to be hypoxic. Denied any chest pain or palpitations. Rest of the review of system is negative. Review of Systems Review of Systems: All systems reviewed & are unremarkable except as noted in HPI & below Physical Exam Physical Exam: General: A&Ox3 HENT: NCAT, MMM, EOMI Eyes: PERRLA Neck: Supple, normal range of motion CVS: normal rate and rhythm Resp: b/l decreased breath sounds Abdomen: Soft, nondistended and nontender Extremities: Trace lower extremity edema Neuro: face symmetric, no focal deficit Skin: warm and dry, no rashes/lesions/errythema MSK: normal ROM, no joint swelling/erythema Results & Data Results & Data ([facility]) Vital Signs (Past 12 Hours) Vital Signs Temp Pulse Pulse Pulse Pulse Resp BP 10/14/20 13:14 78 24 10/14/20 13:09 72 24 10/14/20 11:57 36.3 C L 120 H 23 121/82 10/14/20 10:00 136 H 24 10/14/20 07:28 36.4 C L 106 H 22 10/14/20 07:13 97 H 18 10/14/20 03:43 36.6 C 104 H 20 149/77 H 10/14/20 03:35 104 H 15 BP Pulse Ox 10/14/20 13:14 92 10/14/20 13:09 92 10/14/20 11:57 90 10/14/20 10:00 96 10/14/20 07:28 138/88 91 10/14/20 07:13 99 10/14/20 03:43 99 10/14/20 03:35 98
[2020-10-14] MEDS ORDERED: PHARMACY GLYCEMIC MGMT CONSULT STA (13:33)
--- NOTE | 2020-10-14 17:15 | Cardiology Progress Note ---
Date of Service October 14, 2020 Assessment & Plan (1) Shortness of breath: (2) Acute on chronic heart failure with preserved ejection fraction: (3) COPD exacerbation: (4) Rapid atrial fibrillation: Patient with multifactorial shortness of breath. IV furosemide held this am for rising creatinine to 1.4, then noted to be more hypoxic. ABG pH 7.54 / pCO2 38 / PO2 71 / HCO3 33 Creatinine 1.35 mg /dl small pleural effusions noted. Received 40 mg IV lasix with 2 L output thus far. Reassess renal function and clinical status prior to diuretic tomorrow. Holding coumadin for INRof 3.2 Admission and Anticipated Discharge Date Admission Date: October 10, 2020 Subjective Pt seen in follow up. Eating, comfortable. Telemetry with findings of AF 120s. Physical Exam Physical Exam: Temp Pulse Resp BP Pulse Ox 36.7 C 103 H 16 134/91 97 10/14/20 15:55 10/14/20 15:55 10/14/20 15:55 10/14/20 15:55 10/14/20 15:55 Constitutional: chronically ill in appearance Respiratory: mildly reduced BS at the bases Cardiovascular: Rate/Rhythm: + irregularly irregular Extremities: + edema (trace edema ) Neurologic: PERRL, EOMI, accommodation nl, no face palsy, no dysarthria Results & Data ([facility]) Vital Signs (Past 12 Hours) Vital Signs Temp Pulse Pulse Pulse Resp BP BP 10/14/20 15:55 36.7 C 103 H 16 134/91 10/14/20 13:14 78 24 10/14/20 13:09 72 24 10/14/20 11:57 36.3 C L 120 H 23 121/82 10/14/20 10:00 136 H 24 10/14/20 07:28 36.4 C L 106 H 22 138/88 10/14/20 07:13 97 H 18 Pulse Ox 10/14/20 15:55 97 10/14/20 13:14 92 10/14/20 13:09 92 10/14/20 11:57 90 10/14/20 10:00 96 10/14/20 07:28 91 10/14/20 07:13 99
[2020-10-14] MEDS: TAMSULOSIN HCL 0.4 MG CAP PO SCH (21:09)
[2020-10-15] MEDS: IPRATROPIUM BROMIDE NEB SOLN 0.02% 2.5 ML VIAL INH SCH ×4 (00:04→19:47)
[2020-10-15] MEDS: LEVALBUTEROL 1.25MG/0.5ML NEB INH SCH ×4 (00:04→19:47)
[2020-10-15] MEDS: INSULIN ASPART 100 UNITS/ML 3 ML PEN SC SCH ×6 (00:07→20:20)
[2020-10-15 06:31] LABS: Hematocrit (blood only) 31.2 % (42-52); Hemoglobin 9.1 g/dL (14.0-18.0); Immature Granulocytes # (auto) 0.09 K/uL (0.00-0.02); Immature Granulocytes % (auto) 0.7 %; Lymphocytes # (auto) 1.26 K/uL (1.2-3.4); Lymphocytes % (auto) 9.7 %; Mean Corpuscular Hemoglobin 25.3 pg (25-34); Mean Corpuscular Hgb Conc 29.2 g/dL (32-36); Mean Corpuscular Volume 86.7 fL (80-100); Mean Platelet Volume 9.2 fL (7.4-10.4); Monocytes # (auto) 1.09 K/uL (0.11-0.59); Monocytes % (auto) 8.4 %; Neutrophils # (auto) 10.55 K/uL (1.4-6.5); Neutrophils % (auto) 81.2 %; Platelet Count 425 K/uL (130-400); RDW Coefficient of Variation 16.6 % (11.5-14.5); White Blood Count 12.99 K/uL (4.8-10.8)
[2020-10-15 06:46] LABS: Prothrombin Time 19.6 Seconds (9.0-12.0)
[2020-10-15 06:58] LABS: BUN Creatinine Ratio 37.9 (10-20); Calcium 8.8 mg/dl (8.5-10.1); Creatinine Clr Calc Pharmacy 51.7 ml/min; Est GFR (African American) 64.2 ml/min; Est GFR (Non-African American) 55.4 ml/min; Potassium 4.5 mmol/L (3.5-5.1)
[2020-10-15] MEDS: METOPROLOL TARTRATE 50 MG TAB PO SCH ×2 (08:47→20:21)
[2020-10-15] MEDS: DOXYCYCLINE HYCLATE 100 MG CAP PO SCH ×2 (08:47→20:20)
[2020-10-15] MEDS: DIGOXIN 0.125 MG TAB PO SCH (08:48)
[2020-10-15] MEDS: predniSONE 20 MG TAB PO SCH (08:48)
[2020-10-15] MEDS: UMECLIDINIUM BROMIDE 62.5MCG/BLISTER 7 PUFFS/INHALER INH SCH (08:51)
[2020-10-15] MEDS: FLUTICASONE/VILANTEROL 200/25MCG 14 PUFFS/INHALER INH SCH (08:51)
[2020-10-15] MEDS: INSULIN HUMAN NPH SC SCH (08:52)
[2020-10-15] MEDS: FLUTICASONE PROPIONATE NA SPR 16 GM BTL SCH (08:52)
[2020-10-15] MEDS: INSULIN GLARGINE SOLOSTAR 100 UNITS/ML 3 ML PEN SQ SCH (08:52)
[2020-10-15] MEDS ORDERED: FUROSEMIDE 40 MG/4 ML VIAL IV ONE (09:37)
--- NOTE | 2020-10-15 11:56 | Pharmacy Report ---
Pharmacy Glycemic Short Note 2 - Date of Service October 15, 2020 - Glycemic Short BSG Results (Last 24 hours): 10/14/20 10/14/20 10/14/20 11:59 15:00 15:19 Glucose POC Glucose 89 48 L* 151 H 10/14/20 10/14/20 10/15/20 16:10 20:04 00:00 Glucose POC Glucose 118 H 197 H 173 H 10/15/20 10/15/20 10/15/20 03:53 05:57 07:33 Glucose 118 H POC Glucose 145 H 106 H 10/15/20 11:41 Glucose POC Glucose 114 H OUTPATIENT ANTIDIABETIC REGIMEN: * Lantus 22 units SC qAM * Novolog 3-4 times daily SSI up to 80 units/day * HbA1c: 7.6% (10/11/20) ASSESSMENT: 10/15 * Patient received total of 50 units of insulin yesterday, of which 15 units were Lantus and 28 units were NPH to cover PO prednisone. This NPH dose had been reduced from day prior * BSGs dropped at lunchtime check yesterday despite decrease in NPH dose and PO prednisone, treated per hypoglycemia protocol. Patient respiratory status changing, started on bipap. No PO intake at lunch, so had RN recheck BSG in afternoon d/t concerns for effects of NPH still on board and BSG low again which was treated * Fasting BSG this AM 118 mg/dL - plan to continue with AM Lantus dose. Will scale back significantly on NPH to avoid future hypoglycemia - decreased dose by 50% * Patient only eating minimal at breakfast, will continue with only CF for now and no CR 10/13 * BSGs yesterday of 134, 379, 202, 151, and 109 mg/dL * Elevated lunchtime BSG likely due to inadequate breakfast Novolog/NPH to cover prednisone * Novolog tightened yesterday evening - will continue * Fasting BSG of 58 mg/dL this morning (asymptomatic hypoglycemia) - will decrease Lantus ~30% today * Continues on prednisone 40 mg PO daily - continue NPH at ~0.4 unit/kg 10/12 * BSGs trended down nicely yesterday with insulin infusion * Successfully transitioned off of insulin drip this morning * BSG before breakfast of 134 mg/dL * Will give home basal dose + NPH dose to help cover effects of prednisone (will be slightly conservative with first dose of NPH in light of T1DM) * Maintain aggressive Novolog parameters * Unfortunately, lunch BSG of 379 mg/dL * Will add additional NPH dose to equal 0.4 unit/kg dose to cover prednisone and give one-time IV insulin bolus 10/11: * JIA is an 80 year old male with T1DM well known to pharmacy glycemic service * Recently discharged on 10/08/20 * BSGs were low at time of admission, 66 mg/dL * Received Solu-medrol 125 mg IV x 1 last evening and 40 mg IV x 1 today * Switched to prednisone 40 mg PO daily starting tomorrow morning * BSGs today of 305 mg/dL and 412 mg/dL * Received home Lantus dose of 22 units this morning and 37 units of Novolog so far today * BSG recheck for 457 mg/dL at time of pharmacy consult * Will initiate insulin infusion and give additional basal dose this afternoon to help cover steroids PLAN FOR INPATIENT GLYCEMIC CONTROL: * Basal insulin * Lantus 15 units SC qAM * NPH 15 units SC daily with prednisone 40 mg PO daily (~50% reduction) * Bolus insulin * NovoLog per scale ACHS or Q6hrs while NPO * Goal Range: Low 120 mg/dL - High 160 mg/dL * Correction Factor: 25 mg/dL/unit * Nutritional / Prandial insulin per carb ratio of 1 unit per -- grams CHO consumed PLAN FOR DISCHARGE: * A1c of 7.6% is reasonable for patient given age and comorbidities and is also much improved from earlier this year * Reasonable to continue home regimen, provided patient is not experiencing hypoglycemia as an outpatient
--- NOTE | 2020-10-15 12:58 | Hospitalist Progress Note ---
Date of Service October 15, 2020 Assessment & Plan (1) Acute on chronic heart failure with preserved ejection fraction: Patient remains on 5 L of nasal cannula; uses 2L at baseline. Adequate urine output in last 24 hours. We will continue IV Lasix 40 mg now. Continue to monitor ins and outs along with daily weights. Drew catheter in place for accurate outputs. Appreciate cardiology input. (2) COPD exacerbation: Acute on chronic hypoxic respiratory failure Acute on chronic diastolic heart failure extubation COPD exacerbation Patient has history of severe pulmonary disease. He does use 2 L of oxygen at baseline. Presented with worsening shortness of breath and hypoxia. Continue prednisone 40 mg daily. Continue doxycycline 100 mg p.o. twice daily daily. Continue bronchodilators. Appreciate pulmonary medicine input. Recommended Bactrim as an outpatient for prophylaxis. (3) Left displaced femoral neck fracture: Admitted on 09/09/2020 with fall and fracture Repaired and went for rehab Fell again with dislocation recently and was sent to rehab on 12th of this month following repositioning of the left hip Continue to work with PT/OT. (4) Shortness of breath: (5) Pulmonary fibrosis: (6) Acute on chronic respiratory failure: (7) Atrial fibrillation with rapid ventricular response: Atrial fibrillation on anticoagulation Has been getting beta-chiquita to control rate Rate is minimally elevation which may be contributed by use of bronchodilators and apprehension secondary to increasing shortness of breath Appreciate cardiology input and recommendation (8) Hip dislocation, left: (9) Diabetes type I: Has history of type 1 diabetes in the chart Appreciate pharmacy input and recommendation Has been getting intravenous insulin for tight control of blood pressure. Patient had an episode of hypoglycemia this morning, will touch base with pharmacy for insulin adjustment. Currently on Lantus 15 units, Novolin 15 units daily and sliding scale. (10) CKD (chronic kidney disease) stage 3, GFR 30-59 ml/min: Will monitor PRP Left heel/sacral wound being managed by wound care. DVT prophylaxis On Coumadin-INR at 2.0 Restart coumadin today. Admission and Anticipated Discharge Date Admission Date: October 10, 2020 Subjective Patient is doing okay this morning. Reports he feels much better. States his shortness of breath is improved. Currently on 5 L of nasal cannula good urine output in the last 24 hours. Denies any chest pain or palpitations. Rest of the review of system is negative. Review of Systems Review of Systems: All systems reviewed & are unremarkable except as noted in HPI & below Physical Exam Physical Exam: General: A&Ox3 HENT: NCAT, MMM, EOMI Eyes: PERRLA Neck: Supple, normal range of motion CVS: normal rate and rhythm Resp: b/l decreased breath sounds Abdomen: Soft, nondistended and nontender Extremities: Trace lower extremity edema Neuro: face symmetric, no focal deficit Skin: warm and dry, no rashes/lesions/errythema MSK: no joint swelling/erythema Drew cather in place with clear UOP. Results & Data Results & Data ([facility]) Vital Signs (Past 12 Hours) Vital Signs Temp Pulse Pulse Pulse Resp BP Pulse Ox 10/15/20 12:32 36.2 C L 122 H 22 126/81 90 10/15/20 08:48 82 10/15/20 07:26 88 88 22 95 10/15/20 07:12 36.4 C L 98 H 22 135/89 96 10/15/20 05:23 98 H 18 96 10/15/20 03:31 36.3 C L 96 H 19 130/82 96
--- NOTE | 2020-10-15 13:00 | Cardiology Progress Note ---
Date of Service October 15, 2020 Assessment & Plan (1) Shortness of breath: (2) Acute on chronic heart failure with preserved ejection fraction: (3) COPD exacerbation: (4) Rapid atrial fibrillation: Patient with multifactorial shortness of breath. Creatinine 1.21. Continue furosemide 40 mg IV daily. 3 L UO noted / last 24h. INR down to 2. Resume coumadin , 1.25 mg daily to start rather than [facility] [facility] 2.5 alt with 1.25 mg. Repeat INR tomorrow. Prognosis poor. Admission and Anticipated Discharge Date Admission Date: October 10, 2020 Subjective Patient seen in follow up. Pulse ox 90% on 5 L/min Oxymask. Breathing no worse today, but no better. Telemetry reveals AF 99-120 bpm. Physical Exam Physical Exam: Temp Pulse Resp BP Pulse Ox 36.2 C L 122 H 22 126/81 90 10/15/20 12:32 10/15/20 12:32 10/15/20 12:32 10/15/20 12:32 10/15/20 12:32 Constitutional: chronically ill in appearance Respiratory: mild mid and apical wheezing Cardiovascular: Rate/Rhythm: + irregularly irregular Gastrointestinal (Abdomen): normal bowel sounds, soft, nontender, no hepat osplenomegaly Neurologic: PERRL, EOMI, accommodation nl, no face palsy, no dysarthria Results & Data ([facility]) Vital Signs (Past 12 Hours) Vital Signs Temp Pulse Pulse Pulse Resp BP Pulse Ox 10/15/20 12:32 36.2 C L 122 H 22 126/81 90 10/15/20 08:48 82 10/15/20 07:26 88 88 22 95 10/15/20 07:12 36.4 C L 98 H 22 135/89 96 10/15/20 05:23 98 H 18 96 10/15/20 03:31 36.3 C L 96 H 19 130/82 96 Laboratory Results Coagulation 10/15/20 Range/Units 05:57 PT 19.6 H (9.0-12.0) Seconds CBC 10/15/20 Range/Units 05:57 WBC 12.99 H (4.8-10.8) K/uL RBC 3.60 L (4.7-6.1) M/uL Hgb 9.1 L (14.0-18.0) g/dL Hct 31.2 L (42-52) % Plt Count 425 H (130-400) K/uL Neut # (Auto) 10.55 H (1.4-6.5) K/uL Lymph # (Auto) 1.26 (1.2-3.4) K/uL Alpine # (Auto) 1.09 H (0.11-0.59) K/uL Eos # (Auto) 0.00 (0-0.5) K/uL Baso # (Auto) 0.00 (0-0.2) K/uL Comprehensive Metabolic Panel 10/15/20 Range/Units 05:57 Sodium 138 (136-145) mmol/L Potassium 4.5 (3.5-5.1) mmol/L Chloride 101 (98-107) mmol/L Carbon Dioxide 32 (21-32) mmol/L BUN 46 H (7-18) mg/dl Creatinine 1.21 (0.6-1.4) mg/dl Glucose 118 H (70-99) mg/dl Calcium 8.8 (8.5-10.1) mg/dl Intake and Output 10/14/20 10/15/20 10/15/20 22:59 06:59 14:59 Intake Total 240 / 460 120 / 460 Output Total 800 / 3500 400 / 3500 Balance -560 / -3040 -280 / -3040 Intake: Oral 240 / 460 120 / 460 Output: Urine Amount (Catheter) 800 / 3500 400 / 3500 Drew/Indwelling 800 / 3500 400 / 3500 Other: Weight 89.9 kg Weight Measurement Method Built in [facility]
[2020-10-15] MEDS: WARFARIN SOD 1.25 MG TAB PO SCH (17:34)
[2020-10-15] MEDS: TAMSULOSIN HCL 0.4 MG CAP PO SCH (20:21)
[2020-10-16] MEDS: LEVALBUTEROL 1.25MG/0.5ML NEB INH SCH ×4 (01:08→20:02)
[2020-10-16] MEDS: IPRATROPIUM BROMIDE NEB SOLN 0.02% 2.5 ML VIAL INH SCH ×4 (01:08→20:03)
[2020-10-16 07:05] LABS: INR 1.6 (0.9-1.1); Prothrombin Time 15.9 Seconds (9.0-12.0)
[2020-10-16 07:15] LABS: BUN Creatinine Ratio 39.7 (10-20); Calcium 8.6 mg/dl (8.5-10.1); Creatinine Clr Calc Pharmacy 45.6 ml/min; Est GFR (African American) 55.3 ml/min; Est GFR (Non-African American) 47.7 ml/min; Potassium 4.7 mmol/L (3.5-5.1)
[2020-10-16] MEDS: FLUTICASONE PROPIONATE NA SPR 16 GM BTL SCH (07:50)
[2020-10-16] MEDS: predniSONE 20 MG TAB PO SCH (07:51)
[2020-10-16] MEDS: METOPROLOL TARTRATE 50 MG TAB PO SCH ×2 (07:51→20:18)
[2020-10-16] MEDS: UMECLIDINIUM BROMIDE 62.5MCG/BLISTER 7 PUFFS/INHALER INH SCH (07:52)
[2020-10-16] MEDS: FLUTICASONE/VILANTEROL 200/25MCG 14 PUFFS/INHALER INH SCH (07:52)
[2020-10-16] MEDS: INSULIN HUMAN NPH SC SCH (07:55)
[2020-10-16] MEDS: INSULIN GLARGINE SOLOSTAR 100 UNITS/ML 3 ML PEN SQ SCH (07:56)
[2020-10-16] MEDS: INSULIN ASPART 100 UNITS/ML 3 ML PEN SC SCH ×4 (07:59→20:18)
[2020-10-16] MEDS ORDERED: INSULIN GLARGINE SOLOSTAR 100 UNITS/ML 3 ML PEN SQ SCH (09:00)
[2020-10-16] MEDS ORDERED: INSULIN GLARGINE SOLOSTAR 100 UNITS/ML 3 ML PEN SQ ONE (09:00)
[2020-10-16] MEDS: DOXYCYCLINE HYCLATE 100 MG CAP PO SCH ×2 (09:43→20:19)
--- NOTE | 2020-10-16 10:14 | Pharmacy Report ---
Pharmacy Glycemic Short Note 2 - Date of Service October 16, 2020 - Glycemic Short BSG Results (Last 24 hours): 10/15/20 10/15/20 10/15/20 11:41 16:29 19:32 Glucose POC Glucose 114 H 171 H 167 H 10/16/20 10/16/20 05:57 07:02 Glucose 216 H POC Glucose 245 H OUTPATIENT ANTIDIABETIC REGIMEN: * Lantus 22 units SC qAM * Novolog 3-4 times daily SSI up to 80 units/day * HbA1c: 7.6% (10/11/20) ASSESSMENT: 10/16 * Pt has received 37 units of insulin over the past 24hrs * 15 units of basal with Lantus * 15 units of NPH for steroid induced hyperglycemia * 7 units of bolus with NovoLog * Pt with poor PO intake 10/14 & 10/15- insulin significantly decreased these days * PO intake improving; AM fasting BSG now high at 245 mg/dl this morning. Will increase basal insulin back to outpatient dosing of 22 units daily * Will add CR back to NovoLog 10/15 * Patient received total of 50 units of insulin yesterday, of which 15 units were Lantus and 28 units were NPH to cover PO prednisone. This NPH dose had been reduced from day prior * BSGs dropped at lunchtime check yesterday despite decrease in NPH dose and PO prednisone, treated per hypoglycemia protocol. Patient respiratory status changing, started on bipap. No PO intake at lunch, so had RN recheck BSG in afternoon d/t concerns for effects of NPH still on board and BSG low again which was treated * Fasting BSG this AM 118 mg/dL - plan to continue with AM Lantus dose. Will scale back significantly on NPH to avoid future hypoglycemia - decreased dose by 50% * Patient only eating minimal at breakfast, will continue with only CF for now and no CR 10/13 * BSGs yesterday of 134, 379, 202, 151, and 109 mg/dL * Elevated lunchtime BSG likely due to inadequate breakfast Novolog/NPH to cover prednisone * Novolog tightened yesterday evening - will continue * Fasting BSG of 58 mg/dL this morning (asymptomatic hypoglycemia) - will decrease Lantus ~30% today * Continues on prednisone 40 mg PO daily - continue NPH at ~0.4 unit/kg 10/12 * BSGs trended down nicely yesterday with insulin infusion * Successfully transitioned off of insulin drip this morning * BSG before breakfast of 134 mg/dL * Will give home basal dose + NPH dose to help cover effects of prednisone (will be slightly conservative with first dose of NPH in light of T1DM) * Maintain aggressive Novolog parameters * Unfortunately, lunch BSG of 379 mg/dL * Will add additional NPH dose to equal 0.4 unit/kg dose to cover prednisone and give one-time IV insulin bolus 10/11: * JIA is an 80 year old male with T1DM well known to pharmacy glycemic service * Recently discharged on 10/08/20 * BSGs were low at time of admission, 66 mg/dL * Received Solu-medrol 125 mg IV x 1 last evening and 40 mg IV x 1 today * Switched to prednisone 40 mg PO daily starting tomorrow morning * BSGs today of 305 mg/dL and 412 mg/dL * Received home Lantus dose of 22 units this morning and 37 units of Novolog so far today * BSG recheck for 457 mg/dL at time of pharmacy consult * Will initiate insulin infusion and give additional basal dose this afternoon to help cover steroids PLAN FOR INPATIENT GLYCEMIC CONTROL: * Basal insulin * Lantus 22 units SC qAM * NPH 15 units SC daily with prednisone 40 mg PO daily (~50% reduction) * Bolus insulin * NovoLog per scale ACHS or Q6hrs while NPO * Goal Range: Low 120 mg/dL - High 160 mg/dL * Correction Factor: 25 mg/dL/unit * Nutritional / Prandial insulin per carb ratio of 1 unit per 8 grams CHO consumed PLAN FOR DISCHARGE: * A1c of 7.6% is reasonable for patient given age and comorbidities and is also much improved from earlier this year * Reasonable to continue home regimen, provided patient is not experiencing hypoglycemia as an outpatient
--- NOTE | 2020-10-16 11:49 | Hospitalist Progress Note ---
Date of Service October 16, 2020 Assessment & Plan (1) Acute on chronic heart failure with preserved ejection fraction: Patient was on the BiPAP overnight. An output of roughly 1 L the last 24 hours. Currently on facemask. Will order 1 dose of IV Lasix 40 mg now. Monitor ins and outs along with daily weights. Drew catheter in place for accurate inputs. Renal function remains stable. Appreciate cardiology input.. (2) COPD exacerbation: Acute on chronic hypoxic respiratory failure Acute on chronic diastolic heart failure extubation COPD exacerbation Patient has history of severe pulmonary disease. He does use 2 L of oxygen at baseline. Presented with worsening shortness of breath and hypoxia. Continue prednisone 40 mg daily. Continue doxycycline 100 mg p.o. twice daily daily. Continue bronchodilators. Appreciate pulmonary medicine input. Recommended Bactrim as an outpatient for prophylaxis. (3) Left displaced femoral neck fracture: Admitted on 09/09/2020 with fall and fracture Repaired and went for rehab Fell again with dislocation recently and was sent to rehab on 12th of this month following repositioning of the left hip. Continue to work with PT/OT. (4) Shortness of breath: (5) Pulmonary fibrosis: (6) Acute on chronic respiratory failure: (7) Atrial fibrillation with rapid ventricular response: Atrial fibrillation on anticoagulation Has been getting beta-chiquita to control rate Rate is minimally elevation which may be contributed by use of bronchodilators and apprehension secondary to increasing shortness of breath Appreciate cardiology input and recommendation Subtherapeutic INR today continue with a daily Coumadin. Daily INR. (8) Hip dislocation, left: (9) Diabetes type I: Has history of type 1 diabetes in the chart Appreciate pharmacy input and recommendation Has been getting intravenous insulin for tight control of blood pressure. Patient had an episode of hypoglycemia this morning, will touch base with pharmacy for insulin adjustment. Currently on Lantus 22 units, Novolin 15 units daily and sliding scale. (10) CKD (chronic kidney disease) stage 3, GFR 30-59 ml/min: Will monitor PRP Left heel/sacral wound being managed by wound care. ESR/CRP is awaited. Patient does have necrotic lesion. We'll have orthopedics evaluate the patient. DVT prophylaxis On Coumadin-INR at 2.0 Restart coumadin today. Admission and Anticipated Discharge Date Admission Date: October 10, 2020 Subjective Patient is awake, alert and oriented x3. He reports his shortness of breath is much improved today. Denies any difficulty with swallowing. Does report cough. Denies any chest pain or any palpitations. Rest of the review of systems negative. Review of Systems Review of Systems: All systems reviewed & are unremarkable except as noted in HPI & below Physical Exam Physical Exam: General: A&Ox3 HENT: NCAT, MMM, EOMI Eyes: PERRLA Neck: Supple, normal range of motion CVS: normal rate and rhythm Resp: b/l decreased breath sounds Abdomen: Soft, nondistended and nontender Extremities: Trace lower extremity edema Neuro: face symmetric, no focal deficit Skin: warm and dry, no rashes/lesions/errythema MSK: no joint swelling/erythema Drew cather in place with clear UOP. Results & Data Results & Data ([facility]) Vital Signs (Past 12 Hours) Vital Signs Temp Pulse Pulse Resp BP BP Pulse Ox 10/16/20 11:00 36.7 C 88 20 127/77 94 10/16/20 08:00 87 10/16/20 07:19 91 H 20 99 10/16/20 07:13 36.2 C L 95 H 20 117/67 96 10/16/20 03:57 87 19 98 10/16/20 03:52 36.4 C L 96 H 16 101/58 L 97 10/16/20 01:08 103 H 99 H 26 H 93 10/15/20 23:54 90
[2020-10-16] MEDS ORDERED: FUROSEMIDE 40 MG in SYRINGE 0 ML IV ONE (12:15)
[2020-10-16 12:41] LABS: Basophils # (auto) 0.01 K/uL (0-0.2); Basophils % (auto) 0.1 %; Hematocrit (blood only) 31.1 % (42-52); Hemoglobin 9.3 g/dL (14.0-18.0); Immature Granulocytes # (auto) 0.21 K/uL (0.00-0.02); Immature Granulocytes % (auto) 1.5 %; Lymphocytes # (auto) 1.68 K/uL (1.2-3.4); Mean Corpuscular Hemoglobin 25.3 pg (25-34); Mean Corpuscular Hgb Conc 29.9 g/dL (32-36); Mean Corpuscular Volume 84.5 fL (80-100); Mean Platelet Volume 9.7 fL (7.4-10.4); Monocytes # (auto) 1.05 K/uL (0.11-0.59); Monocytes % (auto) 7.5 %; Neutrophils # (auto) 11.07 K/uL (1.4-6.5); Neutrophils % (auto) 78.9 %; Platelet Count 430 K/uL (130-400); RDW Coefficient of Variation 16.6 % (11.5-14.5); RDW Standard Deviation 50.4 fL (36.4-46.3); Red Blood Count 3.68 M/uL (4.7-6.1); White Blood Count 14.02 K/uL (4.8-10.8)
[2020-10-16] MEDS ORDERED: OPTIRAY 320 100ml IV ONE (14:02)
[2020-10-16] MEDS: WARFARIN SOD 1.25 MG TAB PO SCH (17:06)
--- NOTE | 2020-10-16 17:25 | XRay Report ---
LEFT FOOT 3 VIEWS CLINICAL HISTORY: Left foot infection. Clinical concern for osteomyelitis. FINDINGS: 3 views of the left foot are obtained. No prior studies are available for comparison at the time of dictation. The skeletal structures are osteopenic. There is a subacute/healing fracture thro ugh the base of the fifth proximal phalanx. Mild overlying soft tissue edema is noted. No additional fracture is identified. There is no bony erosion or periostitis. Mild osteoarthritic change is presen t the first metatarsophalangeal joint. Minimal arthritic change is seen in the midfoot. There is a ti ny plantar calcaneal enthesophyte. Atherosclerotic calcification is noted in the regional arteries. IMPRESSION: 1. There is a subacute/healing fracture through the base of the fifth proximal phalanx. 2. No additional fracture is identified. 3. There is no bony erosion or periostitis. Electronically signed by: Arturo Charles M.D. 10/16/2020 5:24 PM
--- NOTE | 2020-10-16 19:27 | CT Scan Report ---
CT foot LT w con CT DOSE: 154.91 mGy.cm CLINICAL HISTORY: rule out osteomyelitis TECHNIQUE: A dose lowering technique was utilized adhering to the principles of ALARA. COMPARISON STUDY: None. FINDINGS: No acute fracture or dislocation seen. Osseous structures are diffusely demineralized. Focal cortical defect is seen within lateral aspect of the distal fibula (4/45) which is associated w ith central lytic lesion at this area. No definite focal sclerosis, involucrum or sequestrum is seen. Prominent soft tissue edema is seen within the foot without definite abscess formation. Prominent skin edema is demonstrated. IMPRESSION: 1. Focal lucency within distal aspect of the fibula which shows cortical defect which might represen t sinus tract which could be seen in osteomyelitis. Signs of chronic osteomyelitis such as involucrum or sequestrum are not visualized. No definite abscess formation demonstrated. Further evaluation wit h contrast-enhanced MR of the foot might be considered. ACT 112: Positive. There are findings on this exam that require communication between the performing entity and the patient following Patient Test Result Information Act ([place] Act 112) guidelines. The above report was generated using voice recognition software. It may contain grammatical, syntax o r spelling errors. Electronically signed by: Violetta Preciado DO 10/16/2020 7:25 PM
[2020-10-16] MEDS: TAMSULOSIN HCL 0.4 MG CAP PO SCH (20:19)
--- NOTE | 2020-10-16 20:52 | Consultation Report ---
DATE OF CONSULTATION: 10/16/2020 HISTORY OF PRESENT ILLNESS: This is an 80-year-old gentleman seen at the request of Dr. Vincent alves. The patient is admitted soon after he had been discharged after he had a closed reduction of a hip dislocation. The patient had difficulty breathing and had chronic heart failure with preserved e jection fraction. He had multiple medical comorbidities, well known to the orthopedic service. Appa rently, the patient then began having a left heel ulceration, which is under the care of the wound ca re center; however, it seemed to have worsened and failed to improve. Therefore, orthopedics was con sulted today. In questioning, the patient said that he has had this ulcer for some time. It seems i t has been worsening. He had a similar ulcer on the right side, which did heal. He is noted to be n europathic in bilateral lower extremities with a complicated medical history. The patient states daljit t the ulcer has never opened or drained on the left heel and he uses waffle boots regularly, however, not exclusively. He states he has no significant pain in either one of his heels. No complaints re garding his hip today. PAST MEDICAL HISTORY: Type 1 diabetes, hyperparathyroidism, diabetic nephropathy, hyperlipidemia, pe ripheral neuropathy, chronic respiratory failure with hypoxia, oxygen for home use, COPD, bronchiecta sis, nocturnal hypoxia, interstitial lung disease, asbestosis, pneumoconiosis, hypertension, tachybra dy syndrome, status post pacemaker, chronic diastolic CHF, IN, paroxysmal atrial fibrillation, GERD, chronic kidney disease stage III, BPH, obstructive uropathy, eczematous dermatitis, anemia, chronic k idney disease stage III. PAST SURGICAL HISTORY: Colonoscopy, head surgery, needle punch biopsy, prostate removal, nose polyps , inguinal hernia repair, hemiarthroplasty of hip, closed reduction of hip dislocation. ALLERGIES: DILTIAZEM, PROPOXYPHENE, SALICYLATE AND LISINOPRIL. MEDICATIONS: Please note, the extensive list in the home meds as well as in the current medication l ist during this hospital stay. SOCIAL HISTORY: He is a former smoker, average 2 packs a day for 40 years, quit in 1995. Alcohol 2 cans of beer per week. No drug use. He is . He is retired now. PHYSICAL EXAMINATION: This is an 80-year-old gentleman sitting supine in his hospital room. He has socks on bilateral feet. Skin is intact in bilateral feet. Feet are warm. Pulses are palpable in b ilateral feet for dorsalis pedis and posterior tibial arteries. He has moderate diminished sensation in bilateral feet in a stocking distribution. Strength is symmetric, approximately 4/5 for dorsifle xion, plantarflexion, inversion and eversion. He has a 4 cm x 5 cm left plantar heel ulcer without d ischarge, drainage or obvious foul odor, with a darkened eschar, which is dry. He has no tenderness to palpation at the heel ulcer. RADIOGRAPHS: Demonstrate no obvious evidence of osteomyelitis of the left heel with no erosions and n o break in the cortical integrity of the calcaneus. Soft tissue shadow was noted. However, there is no obvious fragmentation of the posterior heel. Calcification of the vessels is evident. Normal al ignment. LABORATORIES: Reviewed. IMPRESSION: 1. A 4 cm x 5 cm left heel ulcer with eschar. 2. Bilateral lower extremity neuropathy. RECOMMENDATIONS: CT scan with contrast if he is able to tolerate it at the left heel to assess for os teomyelitis or abscess formation. Nonweightbearing in the left heel. Use waffle boots while seated a nd while in bed. Daily soft dressing change with assessment of the left heel. We will follow with yanet cornejo. Thank you for the opportunity to consult in the care of this patient. Job ID: [id number]
[2020-10-17] MEDS: IPRATROPIUM BROMIDE NEB SOLN 0.02% 2.5 ML VIAL INH SCH ×2 (00:54→07:46)
[2020-10-17] MEDS: LEVALBUTEROL 1.25MG/0.5ML NEB INH SCH ×2 (00:54→07:47)
[2020-10-17] MEDS: CARBOHYDRATES FOR HYPOGLYCEMIA PO PRN ×2 (07:40→07:52)
[2020-10-17 08:03] LABS: INR 1.7 (0.9-1.1); Prothrombin Time 16.9 Seconds (9.0-12.0)
[2020-10-17] MEDS: DEXTROSE 50% 50 ML SYRINGE IV PRN (08:09)
[2020-10-17 08:21] LABS: BUN Creatinine Ratio 48.1 (10-20); Calcium 9.4 mg/dl (8.5-10.1); Creatinine Clr Calc Pharmacy 52.5 ml/min; Est GFR (African American) 65.5 ml/min; Est GFR (Non-African American) 56.5 ml/min; Potassium 4.8 mmol/L (3.5-5.1)
[2020-10-17] MEDS ORDERED: INSULIN GLARGINE SOLOSTAR 100 UNITS/ML 3 ML PEN SQ SCH (09:00)
[2020-10-17] MEDS: FLUTICASONE PROPIONATE NA SPR 16 GM BTL SCH (09:00)
[2020-10-17] MEDS: predniSONE 20 MG TAB PO SCH (09:00)
[2020-10-17] MEDS: METOPROLOL TARTRATE 50 MG TAB PO SCH (09:00)
[2020-10-17] MEDS: FLUTICASONE/VILANTEROL 200/25MCG 14 PUFFS/INHALER INH SCH (09:01)
[2020-10-17] MEDS: UMECLIDINIUM BROMIDE 62.5MCG/BLISTER 7 PUFFS/INHALER INH SCH (09:01)
[2020-10-17] MEDS: INSULIN ASPART 100 UNITS/ML 3 ML PEN SC SCH (09:02)
[2020-10-17] MEDS: INSULIN HUMAN NPH SC SCH (09:04)
--- NOTE | 2020-10-17 10:20 | Emergency Department Note ---
ED Visit Note CODE BLUE: Date: 10/17/20. Time: 9:51am Called to room 239 for code blue Code being run by Dr Toney Code Status: Full per Dr Toney who notes having talked to Brief summary: 80 yr old male with recent hip fracture/repair on anticoagulation with rapidly worsening respiratory status this morning. Known COPD. Arrested in front of staff at time of code. Patient had received epi and brief compressions with brief ROSC. On my evaluation at bedside he was once again asytole and no pulse. ACLS restarted and begging bagged with epi and compressions. Repeat evaluations no pulse, asystole on monitor, and no neuro activity. I intubated patient without difficulty. Epi, Bicarb, Calcium, Good compressions throughout. No ROSC obtained. Noted thick white mucous in tube as code progressed. Repeat lung exams continued by lateral breath sounds and crackles with bagging. After multiple rounds ACLS felt that further attempts futile and thus code ceased at 10:13am on 10/17/20. Dr Toney noted he would make aware. Endotracheal Intubation Indication: Respiratory Failure The patient was being bagged by respiratory with BVM. Suction, airway equipment, RSI drugs, respiratory equipment, and appropriate personnel were prepared prior to the initiation of the procedure. A time out was taken. Induc tion was performed with nothing as in arrest. After observing the clinical benefit of the medications, the airway was easily visualized utilizing a Glidescope #4 blade. A 7.5 size ETT tube was placed atraumatically to 24 cm using standard technique. The cuff inflated without signs of malfunction. There were bilateral breath sounds, positive colormetric change, no gastric sounds, a good capnography waveform, and post procedure pulse oximetry was unable to be obtained as active code. Post intubation sedation and paralysis was administered using nothing as code continued. There were no complications with intubation. Of note large amount thick white mucous in trachea and ET Tube. Critical Care: I have personally spent 30 minutes of critical care time in the direct management of this patient. Cardiopulmonary Arrest code run by me without ROSC. This was a life/limb threatening event. This 30 minutes is in excess of all separately billable procedures. Gaston Angel MD
[2020-10-17 10:30] LABS: iSTAT Allen Test Pass; iSTAT Arterial Blood Gas HCO3 26 meg/L (19-24); iSTAT Arterial Blood Gas pCO2 106 mmHg (35-46); iSTAT Arterial Blood Gas pO2 47 mmHg (80-95); iSTAT Carbon Dioxide 29 mmol/L (24-31); iSTAT FiO2 100 %; iSTAT Site R Radial
--- NOTE | 2020-10-17 10:42 | Orthopedic Progress Note ---
Date of Service October 17, 2020 Assessment & Plan (1) Heel ulcer: Will continue to monitor left heel for wound checks and healing. continue waffle boots. Admission and Anticipated Discharge Date Admission Date: October 10, 2020 Subjective Patient resting comfortably in bed eating breakfast. No complaints this am. He feels his normal but about the same as yesterday. Physical Exam Physical Exam: dressing removed and replaced left heel. eschar noted. no erythema. calves soft. NVI Results & Data ([facility]) Vital Signs (Past 12 Hours) Vital Signs Temp Pulse Pulse Pulse Resp BP Pulse Ox 10/17/20 07:51 103 H 23 98 10/17/20 07:50 103 H 23 98 10/17/20 04:00 36.4 C L 96 H 20 129/88 100 10/17/20 03:45 85 25 H 97 10/17/20 00:57 110 H 23 95 10/17/20 00:54 110 H 23 95 10/17/20 00:39 36.5 C 96 H 24 141/93 H 100
--- NOTE | 2020-10-17 11:20 | Communication Note ---
Date of Service: October 17, 2020 Code shiloh was called because was found on respiratory distress. When I came to see him, his SBP was in the 60's and pt was unresponsive with apneic breath sound. He ceased to breath and pulse checked and was not able to find any pulse. Code ivette was called. Chest compression was started. He was in Asystole. Epinephrine was given. After a few minutes pt had a pulse. He was intubated by the ER physician. Again we could not found his pulse and was in Asystole. Multiple round of epinephrine, along with calcium chloride and bicarb given. I spoke to during the code that said to do our best to try to bring him back before stop the code. We ran the code for more than 20minutes with no return of spontaneous circulation. I spoke to son and in the waiting room and answered all their questions before taking them to his room to see the patient. note Pt was code. Asystole Pt was unresponsive with eyes closed No heart sound, no lung sound noted on auscultation No pulse and no tactile stimuli Pupils no reactive to light Time of :10:13 AM Nurse notified family certificate completed and signed MD Feng Time of : 10:13AM
--- NOTE | 2020-10-17 14:17 | Discharge Summary ---
Date of Service October 17, 2020 Admission HPI Per Admitting Provider CHIEF COMPLAINT: Shortness of breath. 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 The patient was recently in the hospital with a fall and left hip dislocation. His left hip has been repositioned and he was then transitioned to [facility] for rehabilitation yesterday. The patient says today he was getting more short of breath and he has a rasping cough, trying to bring up phlegm, was not coming up. That is the reason he was brought in here and was in mild rapid AFib with a heart rate in 110s. His INR was 3.2. COVID negative. Received his COVID vaccine. His chest x-ray showed possible congestive heart failure versus pneumonia in the right lower lobe. His BNP was 4400 which was not unusual for him. He received a dose of Lasix in the ER and Solu-Medrol and nebs. Denies any chest pain, no nausea, no vomiting, no headache, no blurred vision, no earache, no runny nose, no sore throat. No fevers, no abdominal pain. Sometimes gets constipated. Normal bladder movements. Currently at rehab, he was walking with the help of a walker. Admission Exam Per Admitting Provider GENERAL: The patient is moderate built, currently not in acute distress. VITAL SIGNS: Temperature 36.9, pulse 115, respiratory rate 22, blood pressure 105/75, oxygen 95% on 3 liters. HEENT: Pupils equal, round, reactive to light. Oral mucosa moist. NECK: No JVD or neck masses. CARDIOVASCULAR: S1, S2 heard, irregular rhythm, no murmur, no gallop. RESPIRATORY SYSTEM: Normal AP diameter. No accessory muscle use. Bilateral diminished breath sounds. No wheezing heard. ABDOMEN: Soft, bowel sounds present, nontender. No distention. CENTRAL NERVOUS SYSTEM: Alert and oriented. Speech clear, no facial droop. Obeys commands. Moves extremities. EXTREMITIES: No edema, no erythema. Principal Diagnosis Acute on chronic hypoxic respiratory failure Acute on chronic diastolic heart failure extubation COPD exacerbation Discharge Exam Pt was unresponsive with eyes closed No heart sound, no lung sound noted on auscultation No pulse and no tactile stimuli Pupils no reactive to light Discharge Data Allergies Allergy/AdvReac Type Severity Reaction Status Date / Time diltiazem Allergy Mild rash Verified 10/05/20 07:27 fluticasone furoate AdvReac Intermediate Joint Pain Verified 10/05/20 07:27 [From Breo Ellipta] vilanterol AdvReac Intermediate Joint Pain Verified 10/05/20 07:27 [From Breo Ellipta] aspirin AdvReac Mild GI symptoms Verified 10/05/20 07:27 lisinopril AdvReac Mild cough Verified 10/05/20 07:27 propoxyphene AdvReac Mild GI upset, Verified 10/05/20 07:27 diarrhea Consultations 10/10/20 21:35 ED Decision to Admit Stat 10/11/20 08:00 Consult Cardiology Routine Consult Pulmonology Routine 10/16/20 08:18 Consult Orthopedic Surgery Routine Ordered Studies 10/16/20 13:58 CT foot LT w con Routine CT foot LT w con CT DOSE: 154.91 mGy.cm CLINICAL HISTORY: rule out osteomyelitis TECHNIQUE: A dose lowering technique was utilized adhering to the principles of ALARA. COMPARISON STUDY: None. FINDINGS: No acute fracture or dislocation seen. Osseous structures are diffusely demineralized. Focal cortical defect is seen within lateral aspect of the distal fibula (4/45) which is associated with central lytic lesion at this area. No definite focal sclerosis, involucrum or sequestrum is seen. Prominent soft tissue edema is seen within the foot without definite abscess formation. Prominent skin edema is demonstrated. IMPRESSION: 1. Focal lucency within distal aspect of the fibula which shows cortical defect which might represent sinus tract which could be seen in osteomyelitis. Signs of chronic osteomyelitis such as involucrum or sequestrum are not visualized. No definite abscess formation demonstrated. Further evaluation with contrast- enhanced MR of the foot might be considered. ACT 112: Positive. There are findings on this exam that require communication between the performing entity and the patient following Patient Test Result Information Act ([place] Act 112) guidelines. The above report was generated using voice recognition software. It may contain grammatical, syntax or spelling errors. Electronically signed by: Violetta Preciado DO 10/16/2020 7:25 PM Dictated: 10/16/201719Transcribed: 10/16/201719 LEFT FOOT 3 VIEWS CLINICAL HISTORY: Left foot infection. Clinical concern for osteomyelitis. FINDINGS: 3 views of the left foot are obtained. No prior studies are available for comparison at the time of dictation. The skeletal structures are osteopenic. There is a subacute/healing fracture through the base of the fifth proximal phalanx. Mild overlying soft tissue edema is noted. No additional fracture is identified. There is no bony erosion or periostitis. Mild osteoarthritic change is present the first metatarsophalangeal joint. Minimal arthritic change is seen in the midfoot. There is a tiny plantar calcaneal enthesophyte. Atherosclerotic calcification is noted in the regional arteries. IMPRESSION: 1. There is a subacute/healing fracture through the base of the fifth proximal phalanx. 2. No additional fracture is identified. 3. There is no bony erosion or periostitis. Electronically signed by: Arturo Charles M.D. 10/16/2020 5:24 PM Dictated: 10/16/201720Transcribed: 10/16/201720 SINGLE VIEW CHEST CLINICAL HISTORY: Hypoxia. FINDINGS: An AP, portable, semierect chest radiograph is compared to study dated 10/13/2020 and correlated with chest CT dated 10/09/2019. The examination is degraded by portable technique and apical lordotic positioning. A 2-lead cardiac pacemaker is unchanged in position. The heart is enlarged noting atherosclerotic calcification of the thoracic aorta. The pulmonary vasculature is noncongested. Emphysema and chronic interstitial thickening is similar to previous. Postoperative change is noted at the right apex. Calcified pleural plaques are similar to previous. Bibasilar opacities likely represent scarring/atelectasis. There are small pleural effusions with bibasilar consolidation. No pneumothorax is seen. The skeletal structures are osteopenic. The bony thorax is grossly intact. IMPRESSION: 1. Cardiomegaly and cardiac pacemaker. There is no radiographic evidence of congestive failure. 2. Small pleural effusions persist. 3. Emphysema and chronic parenchymal changes as above. ACT 112: Negative or not required by law. Electronically signed by: Arturo Charles M.D. 10/14/2020 10:41 AM Dictated: 10/14/20 1039Transcribed: 10/14/20 1039 XR chest 1V portable CLINICAL HISTORY: f/u effusion COMPARISON STUDY: October 10, 2020 FINDINGS: No no definite pneumothorax is seen however evaluation is limited because bilateral lung apices are obscured by patient's chin.. Interval improvement/redistribution of bilateral pleural effusion. Interval improvement of previously seen mixed reticular and airspace opacities within bilateral lower lungs likely representing atelectasis/infiltrates. Mediastinal silhouette is stable. Aorta is calcified. Minimal pulmonary vascular congestion, slightly improved since prior.. Osseous structures: Osteopenia. Vertebral bodies are poorly seen. Stable position of left-sided dual-lead pacemaker with battery pack partially obscuring left lung parenchyma. IMPRESSION: 1. Interval improvement/redistribution of bilateral pleural effusion. Also previously seen opacities at bilateral bases are improved which could represent atelectasis/infiltrates. ACT 112: Negative or not required by law. The above report was generated using voice recognition software. It may contain grammatical, syntax or spelling errors. Electronically signed by: Violetta Preciado DO 10/13/2020 12:36 PM Dictated: 10/13/20 1234Transcribed: 10/13/20 1234 XR chest 1V portable HISTORY: Dyspnea COMPARISON: Chest 10/05/2020. FINDINGS: Emphysema. No pneumothorax. Stable postoperative changes within the right lung apex. Calcified pleural plaques are again noted. Progression of the bibasilar densities. The heart remains mildly enlarged. Is left-sided dual- chamber pacemaker. Small bilateral pleural effusions. No evidence for pulmonary edema. IMPRESSION: Interval progression of the small bilateral pleural effusions and nonspecific bibasilar densities. ACT 112: Negative or not required by law. Electronically signed by: Cali Sams M.D. 10/11/2020 8:29 AM Dictated: 10/11/20828Transcribed: 10/11/20828 Hospital Course (1) Acute on chronic heart failure with preserved ejection fraction: Patient was on the BiPAP overnight. An output of roughly 1 L the last 24 hours. Currently on facemask. Will order 1 dose of IV Lasix 40 mg now. Monitor ins and outs along with daily weights. Drew catheter in place for accurate inputs. Renal function remains stable. Appreciate cardiology input.. (2) COPD exacerbation: Acute on chronic hypoxic respiratory failure Acute on chronic diastolic heart failure extubation COPD exacerbation Patient has history of severe pulmonary disease. He does use 2 L of oxygen at baseline. Presented with worsening shortness of breath and hypoxia. Continue prednisone 40 mg daily. Continue doxycycline 100 mg p.o. twice daily daily. Continue bronchodilators. Appreciate pulmonary medicine input. Recommended Bactrim as an outpatient for prophylaxis. (3) Left displaced femoral neck fracture: Admitted on 09/09/2020 with fall and fracture Repaired and went for rehab Fell again with dislocation recently and was sent to rehab on 12th of this month following repositioning of the left hip. Continue to work with PT/OT. (4) Shortness of breath: (5) Pulmonary fibrosis: (6) Acute on chronic respiratory failure: (7) Atrial fibrillation with rapid ventricular response: Atrial fibrillation on anticoagulation Has been getting beta-chiquita to control rate Rate is minimally elevation which may be contributed by use of bronchodilators and apprehension secondary to increasing shortness of breath Appreciate cardiology input and recommendation Subtherapeutic INR today continue with a daily Coumadin. Daily INR. (8) Hip dislocation, left: (9) Diabetes type I: Has history of type 1 diabetes in the chart Appreciate pharmacy input and recommendation Has been getting intravenous insulin for tight control of blood pressure. Patient had an episode of hypoglycemia this morning, will touch base with pharmacy for insulin adjustment. Currently on Lantus 22 units, Novolin 15 units daily and sliding scale. (10) CKD (chronic kidney disease) stage 3, GFR 30-59 ml/min: Will monitor PRP Left heel/sacral wound being managed by wound care. ESR/CRP is awaited. Patient does have necrotic lesion. We'll have orthopedics evaluate the patient. DVT prophylaxis On Coumadin-INR at 2.0 Restart coumadin today. Total Time Total Time Spent Total Time Spent (In Minutes): 40 minutes Total Time Includes: Examination of the Patient, Discharge Planning, Medication Reconciliation, Communication With Other Providers and Other Discharge Plan Discharge Items Patient Disposition:
== END 2020-10-17 12:00 | disposition expired | DRG 291 ==
LOC: ED 19:31 → SUATTDRO 22:28 → 2S 22:28